=== PATIENT | male | born 1945 | race Two or more races ===

== ENCOUNTER 2018-08-20 20:09 | Inpatient (IN) | payer MEDICARE, OTHER ==
[~2018-08-20] VITALS: Ht 167.6 cm; Wt 81.6 kg
--- NOTE | 2018-08-20 20:20 | NUR ---
ED Nurse Note: MANJINDER WOODS FROM [facility] BILATERAL LEG PAIN and not eating X1 WEEK. AO1. NAD. CONTRACTURES ON BILATERAL LEGS
[2018-08-20] MEDS ORDERED: RISPERDAL1 MG/1 ML PO (20:27)
[2018-08-20] MEDS ORDERED: TRAZODONE HCL50 MG ORAL (20:27)
[2018-08-20] MEDS ORDERED: VITAMIN D250000 UNI1 ORAL (20:27)
[2018-08-20] MEDS ORDERED: THIAMINE H100 MG/1 M IJ (20:27)
[2018-08-20] MEDS ORDERED: VITAMIN D400 INTLU ORAL (20:27)
[2018-08-20 20:59] LABS: BASOPHILS % (AUTO) 1.9 % (0.0-2.0); EOSINOPHILS % (AUTO) 2.2 % (0.0-3.0); HEMATOCRIT 38.5 % (42.0-52.0); HEMOGLOBIN 13.3 G/DL (14.2-18.0); LYMPHOCYTES % (AUTO) 29.9 % (20.0-45.0); MEAN CORPUSCULAR VOLUME 88 FL (80-99); MONOCYTES % (AUTO) 9.5 % (1.0-10.0); NEUTROPHILS % (AUTO) 56.5 % (45.0-75.0); PLATELET COUNT 234 K/UL (150-450); RED BLOOD COUNT 4.35 M/UL (4.70-6.10); RED CELL DISTRIBUTION WIDTH 11.4 % (11.6-14.8); WHITE BLOOD COUNT 7.5 K/UL (4.8-10.8)
--- NOTE | 2018-08-20 21:05 | NUR ---
ED Nurse Note: IV ACCESS ESTABLISHED. BLOOD AND URINE COLLECTED; SENT DOWN TO LAB.
--- NOTE | 2018-08-20 21:15 | NUR ---
ED Nurse Note: MRSA CRE VRE SWAB COLLECTED; SENT DOWN TO LAB.
[2018-08-20 21:17] VITALS: BP 163/83
[2018-08-20 21:22] LABS: ANION GAP 9 mmol/L (5-15); BLOOD UREA NITROGEN 19 mg/dL (7-18); CALCIUM 9.7 MG/DL (8.5-10.1); CARBON DIOXIDE 26 MMOL/L (21-32); CHLORIDE 108 MMOL/L (98-107); CREATININE 0.9 MG/DL (0.55-1.30); SODIUM 143 MMOL/L (136-145)
--- NOTE | 2018-08-20 21:25 | Diagnostic Imaging Report ---
EXAM: XR Chest, 1 View CLINICAL HISTORY: ALOC TECHNIQUE: Frontal view of the chest. COMPARISON: None FINDINGS: Hardware: None. Lungs/pleura: Normal. No focal consolidation. No pleural effusion or pneumothorax. Heart/mediastinum: Normal. No cardiomegaly. Soft tissues: Unremarkable. Bones: No acute fracture. Degenerative changes of the acromioclavicular joints. Upper abdomen: Normal. IMPRESSION: No acute disease identified.
[2018-08-20 21:27] LABS: ALANINE AMINOTRANSFERASE 45 U/L (12-78); ALBUMIN 3.6 G/DL (3.4-5.0); ALBUMIN/GLOBULIN RATIO 0.8 (1.0-2.7); ALKALINE PHOSPHATASE 106 U/L (46-116); ASPARTATE AMINO TRANSFERASE 36 U/L (15-37); BILIRUBIN,TOTAL 0.9 MG/DL (0.2-1.0); CREATINE KINASE 240 U/L (26-308)
[2018-08-20 21:45] LABS: APPEARANCE,URINE CLEAR; BILIRUBIN, URINE NEGATIVE (NEGATIVE); GLUCOSE, URINE (UA) NEGATIVE (NEGATIVE); KETONES,URINE NEGATIVE (NEGATIVE); LEUKOCYTE ESTERASE ,URINE NEGATIVE (NEGATIVE); NITRITE,URINE NEGATIVE (NEGATIVE); PH,URINE 6 (4.5-8.0); PROTEIN,URINE 1+ (NEGATIVE); UROBILINOGEN,URINE 4 MG/DL (0.0-1.0)
[2018-08-20 21:47] LABS: COLOR,URINE YELLOW
--- NOTE | 2018-08-20 22:18 | NUR ---
TRANSFER TO FLOOR: Patient transferred to MED SURG 408- [id number] as ordered, per MD AMBAR. Report given to ANTOINETTE KENT. BELONGINGS LIST COMPLETED WITH RECEIVING RN; PT HAS NO BELONGINGS.
--- NOTE | 2018-08-20 22:30 | NUR ---
Nurse Note: Received pt from ED from ANTOINETTE Gonzales. Bilateral leg pain and not eating, poor po intake X1 WEEK. Alert to name only, lethargic, respirations even and unlabored. AO1. No acute distress. Contractures-bilateral legs, upper extremities. Manriquez catheter inserted in ED- patent, draining. IV site asymptomatic patent, NS locked. Bed lowest position, side rails x2, bed alarm on. Belongings list- pt unable to sign but no belongings with patient. Will continue to monitor.
--- NOTE | 2018-08-20 22:34 | Emergency Room Report ---
History of Present Illness General Chief Complaint: General Complaint Source: Medical Record, EMS Present Illness HPI Patient is sent in because is not eating. Patient is unable to give history at this time but nods his head "yes" to all questions. H/O depression H/O muscle weakness H/O cellulitis H/O hypokalemia H/O dementia Allergies: Coded Allergies: No Known Allergies (Unverified , 08/20/18) Patient History Limited by: medical condition Past Medical History: see triage record, old chart reviewed Social History: Denies: smoking Social History Narrative from SNF Reviewed Nursing Documentation: PMH: Agreed; PSxH: Agreed Nursing Documentation-PMH Hx Neurological Problems: Yes - celluitis R leg, weakness, open wound on R leg Hx Cerebrovascular Accident: Yes - hypokalemia Review of Systems All Other Systems: limited Physical Exam Vital Signs Date Time Temp Pulse Resp B/P (MAP) Pulse Ox O2 Delivery O2 Flow Rate FiO2 08/20/18 20:11 97.9 90 18 163/83 (109) 95 Room Air Sp02 EP Interpretation: reviewed, normal General Appearance: no apparent distress, thin, other - position, Chronically Ill Head: normocephalic, atraumatic Eyes: bilateral eye normal inspection, bilateral eye PERRL, bilateral eye EOMI ENT: dry mucus membranes - poor dentition Respiratory: chest non-tender, lungs clear, normal breath sounds, no rhonchi Cardiovascular #1: regular rate, rhythm, no edema Cardiovascular #2: 2+ radial (R) Gastrointestinal: normal inspection, non tender, soft, no mass Genitourinary: no CVA tenderness Musculoskeletal: other - contractures LE Neurologic: alert, sensory intact, motor weakness Psychiatric: depressed affect Skin: warm/dry Medical Decision Making Diagnostic Impression: Primary Impression: Failure to thrive Qualified Codes: R62.7 - Adult failure to thrive Additional Impression: Dehydration ER Course Patient with decreased oral intake. DDx: dehydration, occult infection, depression, electrolyte abnormality, exacerbation of dementia amongst others. Obvious dehydration. Evaluation with EKG, CXR and labs. Treatment with IV hydration. Consideration of enteral feeding tube or G tube placement. EKG without injury. Chest x-ray unremarkable. Labs with elevated BUN suggesting dehydration. CBC and the rest of CMP unremarkable. Urinalysis no evidence of infection. Complicated patient as she is unable to give history. Because he is unable to tolerate oral intake the patient is admitted to the hospital for consideration of enteral tube or gastrostomy tube. Admitted med, Dr. Hyatt. Laboratory Tests Test 08/20/18 20:45 08/20/18 21:05 White Blood Count 7.5 K/UL (4.8-10.8) Red Blood Count 4.35 M/UL (4.70-6.10) L Hemoglobin 13.3 G/DL (14.2-18.0) L Hematocrit 38.5 % (42.0-52.0) L Mean Corpuscular Volume 88 FL (80-99) Mean Corpuscular Hemoglobin 30.6 PG (27.0-31.0) Mean Corpuscular Hemoglobin Concent 34.6 G/DL (32.0-36.0) Red Cell Distribution Width 11.4 % (11.6-14.8) L Platelet Count 234 K/UL (150-450) Mean Platelet Volume 6.0 FL (6.5-10.1) L Neutrophils (%) (Auto) 56.5 % (45.0-75.0) Lymphocytes (%) (Auto) 29.9 % (20.0-45.0) Monocytes (%) (Auto) 9.5 % (1.0-10.0) Eosinophils (%) (Auto) 2.2 % (0.0-3.0) Basophils (%) (Auto) 1.9 % (0.0-2.0) Prothrombin Time 10.7 SEC (9.30-11.50) Prothrombin Time INR 1.0 (0.9-1.1) PTT 26 SEC (23-33) Sodium Level 143 MMOL/L (136-145) Potassium Level 4.0 MMOL/L (3.5-5.1) Chloride Level 108 MMOL/L (98-107) H Carbon Dioxide Level 26 MMOL/L (21-32) Anion Gap 9 mmol/L (5-15) Blood Urea Nitrogen 19 mg/dL (7-18) H Creatinine 0.9 MG/DL (0.55-1.30) Estimate Glomerular Filtration Rate mL/min (>60) Glucose Level 117 MG/DL (74-106) H Lactic Acid Level 0.80 mmol/L (0.4-2.0) Calcium Level 9.7 MG/DL (8.5-10.1) Magnesium Level 2.2 MG/DL (1.8-2.4) Total Bilirubin 0.9 MG/DL (0.2-1.0) Aspartate Amino Transferase (AST) 36 U/L (15-37) Alanine Aminotransferase (ALT) 45 U/L (12-78) Alkaline Phosphatase 106 U/L (46-116) Total Creatine Kinase 240 U/L (26-308) Troponin I 0.000 ng/mL (0.000-0.056) Pro-B-Type Natriuretic Peptide 67 pg/mL (0-125) Total Protein 7.9 G/DL (6.4-8.2) Albumin 3.6 G/DL (3.4-5.0) Globulin 4.3 g/dL Albumin/Globulin Ratio 0.8 (1.0-2.7) L Lipase 109 U/L (73-393) Urine Color Yellow Urine Appearance Clear Urine pH 6 (4.5-8.0) Urine Specific [place] 1.015 (1.005-1.035) Urine Protein 1+ (NEGATIVE) H Urine Glucose (UA) Negative (NEGATIVE) Urine Ketones Negative (NEGATIVE) Urine Blood 1+ (NEGATIVE) H Urine Nitrite Negative (NEGATIVE) Urine Bilirubin Negative (NEGATIVE) Urine Urobilinogen 4 MG/DL (0.0-1.0) H Urine Leukocyte Esterase Negative (NEGATIVE) Urine RBC 5-10 /HPF (0 - 0) H Urine WBC 0-2 /HPF (0 - 0) Urine Squamous Epithelial Cells None /LPF (NONE/OCC) Urine Bacteria None /HPF (NONE) EKG Diagnostic Results Rate: normal Rhythm: NSR ST Segments: no acute changes Rhythm Strip Diag. Results EP Interpretation: yes Rhythm: NSR, no PVC's, no ectopy Chest X-Ray Diagnostic Results Chest X-Ray Diagnostic Results : Chest X-Ray Ordered: Yes Indication: Other EP Interpretation: Yes Interpretation: no consolidation, no effusion, no pneumothorax Impression: No acute disease Electronically Signed by: Electronically signed by Elijah Zhu MD Last Vital Signs Date Time Temp Pulse Resp B/P (MAP) Pulse Ox O2 Delivery O2 Flow Rate FiO2 08/21/18 00:00 98.8 73 19 153/84 (107) 97 08/20/18 22:20 Room Air Status: improved Disposition: ADMITTED INPATIENT Condition: Serious Scripts Lisinopril* (ZESTRIL*) 10 Mg Tablet 10 MG ORAL DAILY for 30 Days, #30 TAB Prov: Wei Neves MD 08/23/18 Referrals: Darion Hyatt MD (PCP) Elijah Zhu MD Aug 20, 2018 22:34
[2018-08-20] MEDS: TraZODone 100mg tab ORAL SCH (23:41)
[2018-08-21] VITALS: BP 153/84
[2018-08-21 04:00] VITALS: BP 161/98
[2018-08-21 07:17] LABS: BASOPHILS % (AUTO) 1.3 % (0.0-2.0); HEMATOCRIT 35.9 % (42.0-52.0); LYMPHOCYTES % (AUTO) 30.6 % (20.0-45.0); MEAN CORPUSCULAR VOLUME 93 FL (80-99); MONOCYTES % (AUTO) 9.4 % (1.0-10.0); NEUTROPHILS % (AUTO) 56.7 % (45.0-75.0); PLATELET COUNT 216 K/UL (150-450); RED BLOOD COUNT 3.87 M/UL (4.70-6.10); RED CELL DISTRIBUTION WIDTH 12.1 % (11.6-14.8); WHITE BLOOD COUNT 7.1 K/UL (4.8-10.8)
[2018-08-21 07:46] LABS: ALANINE AMINOTRANSFERASE 36 U/L (12-78); ALBUMIN 3.1 G/DL (3.4-5.0); ALBUMIN/GLOBULIN RATIO 0.8 (1.0-2.7); ALKALINE PHOSPHATASE 91 U/L (46-116); ANION GAP 8 mmol/L (5-15); ASPARTATE AMINO TRANSFERASE 27 U/L (15-37); BILIRUBIN,TOTAL 0.9 MG/DL (0.2-1.0); BLOOD UREA NITROGEN 12 mg/dL (7-18); CALCIUM 8.8 MG/DL (8.5-10.1); CARBON DIOXIDE 26 MMOL/L (21-32); CHLORIDE 111 MMOL/L (98-107); CREATININE 0.8 MG/DL (0.55-1.30); PHOSPHORUS 3.2 MG/DL (2.5-4.9); POTASSIUM 3.2 MMOL/L (3.5-5.1); SODIUM 145 MMOL/L (136-145)
[2018-08-21 08:00] VITALS: BP 155/88
--- NOTE | 2018-08-21 08:03 | NUR ---
HAND-OFF: Report given to ANTOINETTE Rosado
--- NOTE | 2018-08-21 08:04 | NUR ---
NURSE NOTES: pt in bed with no sob nor in any form of distress noted. breathing regular and unlabored. denies pain at this time. F/C in placed and patent. Bed in lowest position. call light within reach at all time. will continue to monitor
[2018-08-21] MEDS: Thiamine 100mg tab ORAL SCH (09:04)
[2018-08-21] MEDS: Heparin 5000 units/ml inj SUBQ SCH ×2 (09:09→20:51)
--- NOTE | 2018-08-21 10:50 | NUR ---
P.T NOTE: P.T EVALUATION COMPLETED. PATIENT IS ALERT, HOWEVER ESSENTIALLY NOT ABLE TO FOLLOW SIMPLE COMMANDS. PATIENT PRESENTED IN POSITION SECONDARY TO INCREASED BLE FLEXOR TONICITY. MAX/TOTAL ASSIST FOR BED MOBILITIES. PATIENT IS ALREADY BASELINE DEPENDENT IN ALL AREAS OF ADL/FUNCTIONAL MOBILITIES THEREFORE NOT A CANDIDATE FOR SKILLED P.T SERVICES. RECOMMEND D/C TO [facility] FOR [facility]FORT AND CARE. THANK YOU FOR THIS REFERRAL.
[2018-08-21 12:00] VITALS: BP 160/83
--- NOTE | 2018-08-21 14:12 | History and Physical ---
History of Present Illness General Date patient seen: Aug 21, 2018 Time patient seen: 09:00 Reason for Hospitalization: poor oral intakeweakness Present Illness HPI 72 y/o Male who is are resident at [facility] since March 2018 with dx of dementia, prior cellulitis of the R LE, generalized weakness, hypokalemia, MDD, intermittent agitation. He was noted to have poor oral intake for 2 days and referral for evaluation was needed. In the ED, initial workup is negative for acute infection. IVF started. Admission is needed for follow up evaluation. The patient responds yes to all questions and is not a viable historian. He is FULL code per prior POLST at [facility]. Allergies: Coded Allergies: No Known Allergies (Unverified , 08/20/18) Medication History Scheduled Ergocalciferol (Vitamin D2)* (Vitamin D*), 50,000 UNIT ORAL ONCE A WEEK, ( Reported) Trazodone Hcl* (Desyrel*), 50 MG ORAL BEDTIME, (Reported) Vitamin D (Vitamin D3), 400 UNITS ORAL DAILY, (Reported) Miscellaneous Medications Risperidone (Risperdal), 1 MG PO, (Reported) Thiamine Hcl (Thiamine Hcl), 100 MG IJ, (Reported) Patient History Healthcare decision maker Resuscitation status Full Code Advanced Directive on File Review of Systems Constitutional: Reports: see HPI Eye: Reports: no symptoms ENT: Reports: no symptoms Respiratory: Reports: no symptoms Cardiovascular: Reports: no symptoms Gastrointestinal: Reports: see HPI, other - poor PO intake Genitourinary: Reports: no symptoms Musculoskeletal: Reports: no symptoms Skin: Reports: no symptoms Psychiatric: Reports: see HPI, prior hx Neurological: Reports: no symptoms, see HPI Endocrine: Reports: no symptoms Hematologic/Lymphatic: Reports: no symptoms Physical Exam General Appearance: WD/WN, no apparent distress, other - AO x 1 Lines, tubes and drains: peripheral HEENT: normocephalic, atraumatic Neck: non-tender Respiratory/Chest: chest wall non-tender, lungs clear Cardiovascular/Chest: regular rhythm Abdomen: non tender, soft Extremities: normal range of motion Neurologic: turf manager II-XII grossly normal, oriented x 3, other - AO x 1 Last 24 Hour Vital Signs Date Time Temp Pulse Resp B/P (MAP) Pulse Ox O2 Delivery O2 Flow Rate FiO2 08/21/18 12:00 97.0 64 19 160/83 (108) 99 08/21/18 09:00 Room Air 08/21/18 08:00 98.0 79 19 155/88 (110) 99 08/21/18 04:00 97.9 80 19 161/98 (119) 97 08/21/18 00:00 98.8 73 19 153/84 (107) 97 08/20/18 23:46 Room Air 08/20/18 22:20 98.3 68 22 163/83 97 Room Air 08/20/18 21:24 68 22 Room Air 08/20/18 21:17 98.3 68 22 163/83 97 Room Air 08/20/18 20:11 97.9 90 18 163/83 (109) 95 Room Air Intake and Output 08/20/18 08/21/18 19:00 07:00 # Voids 60 # Bowel Movements 1 Laboratory Tests Test 08/20/18 20:45 08/20/18 21:05 08/21/18 05:35 White Blood Count 7.5 K/UL (4.8-10.8) 7.1 K/UL (4.8-10.8) Red Blood Count 4.35 M/UL (4.70-6.10) L 3.87 M/UL (4.70-6.10) L Hemoglobin 13.3 G/DL (14.2-18.0) L 12.0 G/DL (14.2-18.0) L Hematocrit 38.5 % (42.0-52.0) L 35.9 % (42.0-52.0) L Mean Corpuscular Volume 88 FL (80-99) 93 FL (80-99) Mean Corpuscular Hemoglobin 30.6 PG (27.0-31.0) 31.0 PG (27.0-31.0) Mean Corpuscular Hemoglobin Concent 34.6 G/DL (32.0-36.0) 33.4 G/DL (32.0-36.0) Red Cell Distribution Width 11.4 % (11.6-14.8) L 12.1 % (11.6-14.8) Platelet Count 234 K/UL (150-450) 216 K/UL (150-450) Mean Platelet Volume 6.0 FL (6.5-10.1) L 7.0 FL (6.5-10.1) Neutrophils (%) (Auto) 56.5 % (45.0-75.0) 56.7 % (45.0-75.0) Lymphocytes (%) (Auto) 29.9 % (20.0-45.0) 30.6 % (20.0-45.0) Monocytes (%) (Auto) 9.5 % (1.0-10.0) 9.4 % (1.0-10.0) Eosinophils (%) (Auto) 2.2 % (0.0-3.0) 2.0 % (0.0-3.0) Basophils (%) (Auto) 1.9 % (0.0-2.0) 1.3 % (0.0-2.0) Prothrombin Time 10.7 SEC (9.30-11.50) Prothromb Time International Ratio 1.0 (0.9-1.1) Activated Partial Thromboplast Time 26 SEC (23-33) Sodium Level 143 MMOL/L (136-145) 145 MMOL/L (136-145) Potassium Level 4.0 MMOL/L (3.5-5.1) 3.2 MMOL/L (3.5-5.1) L Chloride Level 108 MMOL/L (98-107) H 111 MMOL/L (98-107) H Carbon Dioxide Level 26 MMOL/L (21-32) 26 MMOL/L (21-32) Anion Gap 9 mmol/L (5-15) 8 mmol/L (5-15) Blood Urea Nitrogen 19 mg/dL (7-18) H 12 mg/dL (7-18) Creatinine 0.9 MG/DL (0.55-1.30) 0.8 MG/DL (0.55-1.30) Estimat Glomerular Filtration Rate mL/min (>60) mL/min (>60) Glucose Level 117 MG/DL (74-106) H 102 MG/DL (74-106) Lactic Acid Level 0.80 mmol/L (0.4-2.0) Calcium Level 9.7 MG/DL (8.5-10.1) 8.8 MG/DL (8.5-10.1) Magnesium Level 2.2 MG/DL (1.8-2.4) Total Bilirubin 0.9 MG/DL (0.2-1.0) 0.9 MG/DL (0.2-1.0) Aspartate Amino Transf (AST/SGOT) 36 U/L (15-37) 27 U/L (15-37) Alanine Aminotransferase (ALT/SGPT) 45 U/L (12-78) 36 U/L (12-78) Alkaline Phosphatase 106 U/L (46-116) 91 U/L (46-116) Total Creatine Kinase 240 U/L (26-308) Troponin I 0.000 ng/mL (0.000-0.056) Pro-B-Type Natriuretic Peptide 67 pg/mL (0-125) Total Protein 7.9 G/DL (6.4-8.2) 6.8 G/DL (6.4-8.2) Albumin 3.6 G/DL (3.4-5.0) 3.1 G/DL (3.4-5.0) L Globulin 4.3 g/dL 3.7 g/dL Albumin/Globulin Ratio 0.8 (1.0-2.7) L 0.8 (1.0-2.7) L Lipase 109 U/L (73-393) Urine Color Yellow Urine Appearance Clear Urine pH 6 (4.5-8.0) Urine Specific [place] 1.015 (1.005-1.035) Urine Protein 1+ (NEGATIVE) H Urine Glucose (UA) Negative (NEGATIVE) Urine Ketones Negative (NEGATIVE) Urine Blood 1+ (NEGATIVE) H Urine Nitrite Negative (NEGATIVE) Urine Bilirubin Negative (NEGATIVE) Urine Urobilinogen 4 MG/DL (0.0-1.0) H Urine Leukocyte Esterase Negative (NEGATIVE) Urine RBC 5-10 /HPF (0 - 0) H Urine WBC 0-2 /HPF (0 - 0) Urine Squamous Epithelial Cells None /LPF (NONE/OCC) Urine Bacteria None /HPF (NONE) Erythrocyte Sedimentation Rate 30 MM/HR (0-20) H Phosphorus Level 3.2 MG/DL (2.5-4.9) Prealbumin Pending Thyroid Stimulating Hormone (TSH) 1.969 uiU/mL (0.358-3.740) Height (Feet): 5 Height (Inches): 6.00 Weight (Pounds): 180 Medications Current Medications Medications (Trade) Dose Ordered Sig/Altagracia Route PRN Reason Start Time Stop Time Status Last Admin Dose Admin Ergocalciferol (Drisdol) 50,000 intlu ONCE A WEEK ORAL 08/23/18 09:00 09/22/18 08:59 Heparin Sodium (Porcine) (Heparin 5000 units/ml) 5,000 units EVERY 12 HOURS SUBQ 08/21/18 09:00 09/20/18 08:59 08/21/18 09:09 Risperidone (RisperDAL) 1 mg BID ORAL 08/21/18 09:00 09/20/18 08:59 08/21/18 09:04 Thiamine HCl (Vitamin B1) 100 mg DAILY ORAL 08/21/18 09:00 09/20/18 08:59 08/21/18 09:04 Trazodone HCl (Desyrel) 100 mg BEDTIME ORAL 08/20/18 23:41 09/19/18 23:40 Vitamin D (Vitamin D) 600 intlu DAILY ORAL 08/21/18 15:00 09/20/18 14:59 Assessment/Plan Status: stable Assessment/Plan: 72 y/o male SNF resident with dementia, prior cellulitis who is being admitted for: # Poor oral intake IVF started ST evaluation RD evaluation, order calorie count and monitor response to therapy. Consider family discussion about possible need for NGT vs PEG Laboratory test show Albumin 3.1 Add pre albumin level # Dementia At baseline Monitor for agitation or delirium # History of cellulitis Stable # Generalized weakness PT evaluation SNF when medically stable ( resident at [facility]) # FULL CODE Fan Barba MD Aug 21, 2018 14:12
--- NOTE | 2018-08-21 15:02 | NUR ---
COMPRESSOR ASSEMBLERLINOLEUM TILE LAYER 72 Y/O MALE [facility]IB[facility] CC:GENERAL COMPLAINT SI:FAILURE TO THRIVE . DEHYDRATION VS: BP 163/83, P 90, T 97.9, RR 22, SpO2 95 RBC 4.35, H&H 13.3/38.5, K 3.2 IS:NS x1L IV NS x2.4L IVLG ADMITTED TO MED/SURG DCP: RETURN TO [facility]
[2018-08-21] MEDS: Vitamin D 400 INTLU TAB ORAL SCH (15:03)
[2018-08-21 16:00] VITALS: BP 158/83
[2018-08-21 16:52] LABS: ALANINE AMINOTRANSFERASE 34 U/L (12-78); ALBUMIN 3.2 G/DL (3.4-5.0); ALBUMIN/GLOBULIN RATIO 0.9 (1.0-2.7); ALKALINE PHOSPHATASE 94 U/L (46-116); ANION GAP 8 mmol/L (5-15); ASPARTATE AMINO TRANSFERASE 21 U/L (15-37); BILIRUBIN,TOTAL 0.9 MG/DL (0.2-1.0); BLOOD UREA NITROGEN 9 mg/dL (7-18); CALCIUM 8.9 MG/DL (8.5-10.1); CARBON DIOXIDE 25 MMOL/L (21-32); CHLORIDE 110 MMOL/L (98-107); CREATININE 0.7 MG/DL (0.55-1.30); POTASSIUM 3.7 MMOL/L (3.5-5.1); SODIUM 143 MMOL/L (136-145)
--- NOTE | 2018-08-21 19:24 | NUR ---
HAND-OFF: Report given to ANTOINETTE Stevenson.
[2018-08-21 20:00] VITALS: BP 142/72
--- NOTE | 2018-08-21 20:14 | NUR ---
NURSE NOTES: patient in bed, asleep, arousable to touch. kept clean and comfortable. Provide safe environment. Bed in low and locked position. Skin is warm and dry to touch. Abdomen is soft and non distended. IV site noted. respiration is even and unlabored. NO s/s of pain or discomfort noted. call light is at bedside. Will continue plan of care.
[2018-08-21] MEDS: TraZODone 100mg tab ORAL SCH (20:48)
[2018-08-22] VITALS: BP 141/76
[2018-08-22 04:00] VITALS: BP 158/80
--- NOTE | 2018-08-22 07:01 | NUR ---
HAND-OFF: Report given to ANTOINETTE Rosado.
[2018-08-22 07:22] LABS: BASOPHILS % (AUTO) 0.9 % (0.0-2.0); EOSINOPHILS % (AUTO) 0.7 % (0.0-3.0); HEMATOCRIT 37.2 % (42.0-52.0); HEMOGLOBIN 12.5 G/DL (14.2-18.0); LYMPHOCYTES % (AUTO) 15.3 % (20.0-45.0); MEAN CORPUSCULAR VOLUME 93 FL (80-99); MONOCYTES % (AUTO) 7.2 % (1.0-10.0); NEUTROPHILS % (AUTO) 75.9 % (45.0-75.0); PLATELET COUNT 222 K/UL (150-450); RED BLOOD COUNT 4.01 M/UL (4.70-6.10); RED CELL DISTRIBUTION WIDTH 11.5 % (11.6-14.8); WHITE BLOOD COUNT 9.4 K/UL (4.8-10.8)
--- NOTE | 2018-08-22 07:31 | NUR ---
NURSE NOTES: Patient alert and oriented x 1, restrains on , skins intact, no SOB, no pain or discomfort noted. will continue to monitor.
[2018-08-22 08:00] VITALS: BP 148/80
[2018-08-22] MEDS: Thiamine 100mg tab ORAL SCH (08:33)
[2018-08-22] MEDS: Vitamin D 400 INTLU TAB ORAL SCH (08:33)
[2018-08-22] MEDS: Heparin 5000 units/ml inj SUBQ SCH ×2 (08:40→22:05)
--- NOTE | 2018-08-22 11:38 | NUR ---
RD ASSESSMENT & RECOMMENDATIONS SEE CARE ACTIVITY FOR COMPLETE ASSESSMENT DAILY ESTIMATED NEEDS: Needs based on Wasting/ 57.5kg 25-30 kcals/kg 2248-2212 total kcals 1-1.5 g protein/kg 58-87 g total protein 25-30 mL/kg 8306-5513 total fluid mLs CURRENT DIET:SOFT, MECH SOFT CHOPPED PO DIET RECOMMENDATIONS: LIBERALIZED REGULAR/ texture per RESEARCH DEVELOPMENT DIRECTOR + Ensure Enlive TID /w meals ADDITIONAL RECOMMENDATIONS: * Calibrated bedscale wt for accurate CBW * F/up w/ calorie count x 72 hrs * Ensure Enlive TID w/ meals (350kcal/20g prot per bottle) * MVI x 1 as supplement * MAXIMUM encouragement at all meals * Consider appetite stimulant
[2018-08-22 11:42] VITALS: BP 160/82
[2018-08-22] MEDS: Lisinopril 10mg tab ORAL SCH ×2 (13:02→13:04)
--- NOTE | 2018-08-22 14:01 | General Progress Note ---
Assessment/Plan Status: stable Assessment/Plan: 72 y/o male SNF resident with dementia, prior cellulitis who is being admitted for: # Poor oral intake IVF started ST evaluation noted and tolerating food but limited amount. RD evaluation, order calorie count and monitor response to therapy. Consider family discussion about possible need for NGT vs PEG Laboratory test show Albumin 3.1 pre albumin level follow up pending. # Dementia At baseline Monitor for agitation or delirium # History of cellulitis Stable # Generalized weakness PT evaluation noted and he is at baseline. ONLY [facility] for ALL ADLS, no Skilled benefit. Subjective ROS Limited/Unobtainable: Yes Allergies: Coded Allergies: No Known Allergies (Unverified , 08/20/18) Subjective non verbal and unable to provide history Objective Last 24 Hour Vital Signs Date Time Temp Pulse Resp B/P (MAP) Pulse Ox O2 Delivery O2 Flow Rate FiO2 08/22/18 13:04 160/82 08/22/18 13:02 160/82 08/22/18 11:42 98.4 93 16 160/82 (108) 98 08/22/18 09:00 Room Air 08/22/18 08:00 98.3 71 18 148/80 (102) 98 08/22/18 04:00 98.7 71 19 158/80 (106) 97 08/22/18 00:00 98.0 73 19 141/76 (97) 96 08/21/18 21:00 Room Air 08/21/18 20:00 99.2 73 19 142/72 (95) 97 08/21/18 16:00 97.0 64 19 158/83 (108) 99 Intake and Output 08/21/18 08/22/18 19:00 07:00 Intake Total 240 ml 240 ml Output Total 1800 ml 650 ml Balance -1560 ml -410 ml Intake Oral 240 ml 240 ml Output Urine Total 1800 ml 650 ml # Voids 1 1 # Bowel Movements 3 1 Laboratory Tests 08/21/18 16:10: Sodium Level 143, Potassium Level 3.7, Chloride Level 110H, Carbon Dioxide Level 25, Anion Gap 8, Blood Urea Nitrogen 9, Creatinine 0.7, Estimat Glomerular Filtration Rate , Glucose Level 94, Calcium Level 8.9, Total Bilirubin 0.9, Aspartate Amino Transf (AST/SGOT) 21, Alanine Aminotransferase ( ALT/SGPT) 34, Alkaline Phosphatase 94, Total Protein 6.7, Albumin 3.2L, Globulin 3.5, Albumin/Globulin Ratio 0.9L 08/22/18 06:20: White Blood Count 9.4, Red Blood Count 4.01L, Hemoglobin 12.5L, Hematocrit 37.2L , Mean Corpuscular Volume 93, Mean Corpuscular Hemoglobin 31.3H, Mean Corpuscular Hemoglobin Concent 33.6, Red Cell Distribution Width 11.5L, Platelet Count 222, Mean Platelet Volume 7.0, Neutrophils (%) (Auto) 75.9H, Lymphocytes (%) (Auto) 15.3L, Monocytes (%) (Auto) 7.2, Eosinophils (%) (Auto) 0.7, Basophils (%) (Auto) 0.9 Height (Feet): 5 Height (Inches): 6.00 Weight (Pounds): 180 General Appearance: WD/WN EENT: PERRL/EOMI Neck: non-tender, normal alignment Cardiovascular: normal peripheral pulses, normal rate Respiratory/Chest: lungs clear, normal breath sounds Abdomen: normal bowel sounds, non tender Neurologic: jackerman II-XII grossly normal, no motor/sensory deficits Fan Barba MD Aug 22, 2018 14:01
[2018-08-22 15:53] VITALS: BP 122/55
--- NOTE | 2018-08-22 19:11 | NUR ---
HAND-OFF: Report given to ANTOINETTE Stevenson.
[2018-08-22 20:00] VITALS: BP 136/74
--- NOTE | 2018-08-22 20:01 | NUR ---
NURSE NOTES: Patient in bed, asleep, arousable to touch. Restraints noted. Pulse noted. Skin is intact. NO s/s of pain or discomfort noted. Abdomen is soft. Lower extremity contractures. Bed in low and locked position. Provide safe environment. Kept clean and comfortable. Call light is within reach. Will continue plan of care.
[2018-08-22] MEDS: TraZODone 100mg tab ORAL SCH (22:05)
[2018-08-23] VITALS: BP 127/71
[2018-08-23 04:00] VITALS: BP 149/77
[2018-08-23 06:46] LABS: BASOPHILS % (AUTO) 0.6 % (0.0-2.0); EOSINOPHILS % (AUTO) 0.2 % (0.0-3.0); HEMATOCRIT 36.5 % (42.0-52.0); HEMOGLOBIN 12.7 G/DL (14.2-18.0); LYMPHOCYTES % (AUTO) 14.7 % (20.0-45.0); MEAN CORPUSCULAR VOLUME 92 FL (80-99); MONOCYTES % (AUTO) 7.4 % (1.0-10.0); PLATELET COUNT 221 K/UL (150-450); RED BLOOD COUNT 3.99 M/UL (4.70-6.10); RED CELL DISTRIBUTION WIDTH 11.6 % (11.6-14.8); WHITE BLOOD COUNT 11.2 K/UL (4.8-10.8)
--- NOTE | 2018-08-23 07:02 | NUR ---
HAND-OFF: Report given to ANTOINETTE Rosado.
[2018-08-23 07:13] LABS: ANION GAP 10 mmol/L (5-15); BLOOD UREA NITROGEN 9 mg/dL (7-18); CALCIUM 9.5 MG/DL (8.5-10.1); CARBON DIOXIDE 25 MMOL/L (21-32); CHLORIDE 106 MMOL/L (98-107); CREATININE 0.8 MG/DL (0.55-1.30); POTASSIUM 3.4 MMOL/L (3.5-5.1); SODIUM 141 MMOL/L (136-145)
--- NOTE | 2018-08-23 07:31 | NUR ---
NURSE NOTES: Patient resting in bed, A/O x 1, confused. Room air, no respiratory distress noted. no SOB. no cough. Restrains on faby wrists, skin intact, no redness. bed alarm on. will continue to monitor.
[2018-08-23 08:00] VITALS: BP 169/94
[2018-08-23] MEDS: Vitamin D 400 INTLU TAB ORAL SCH (08:16)
[2018-08-23] MEDS: Thiamine 100mg tab ORAL SCH (08:16)
[2018-08-23] MEDS: Heparin 5000 units/ml inj SUBQ SCH (08:18)
[2018-08-23] MEDS ORDERED: Vitamin D 50,000 units cap ORAL SCH (09:00)
--- NOTE | 2018-08-23 09:52 | NUR ---
SWALLOW/SPEECH THERAPY NOTE: REFERRED FOR SWALLOW EVAL BY DR. MERAZ, SEE FULL REPORT IN ST CARE ACTIVITY SECTION. DYSPHAGIA RISK FACTORS FOR THIS 72 Y.O.M. (SCOTTISH? MOLDOVAN): ACUTE ISSUES: FTT, POOR PO INTAKE FOR ONE WEEK PRIOR TO ADMIT, WT LOSS, GEN WEAKNESS, REDUCED APPETITE, PERIODS OF AGITATION, DEHYDRATION, LUNGS CLEAR. R LE CELLULITIS. H/O CVA, ADVANCED DEMENTIA (UNSPECIFIED), MDD, ON ZYPREXA, RISPERDAL, TRAZADONE MONITOR FOR PARKINSON'S AND TARDIVE KINESIA SXS, GI PROBLEMS (NOT ON GERD MEDS). PROBLEMS CHEWING PER SNF. POLST STATES OK FOR TRIAL ARTIFICIAL NUTRITION IF NEEDS. AT SNF ON A REGULAR TEXTURE DIET AND THIN LIQUIDS BUT POOR PO FOR ONE WEEK. PER RD, LIBERALIZE DIET AND SEND ENSURE ENLIVE TID AND ON CALORIE COUNT (POOR INTAKE REFUSES (X6) AND SOME 25/75% PER ANOTHER RN ATE 100% WHEN FED 30 MINUTES. PER MD (ANN) CONSIDER NGT VERSUS PEG IF INDICATED. ANN). ROOM AIR, ALERT WITH STIMULATION (IF NOT STIMULATED WILL FALL ASLEEP). SOMETIMES WILL TAKE PO WITH EYES CLOSED. DOES NOT FOLLOW ORAL COMMANDS. NONVERBAL. POOR AND MANY MISSING DENTITION (4 UPPER INCISORS/CANINES AND MANY LOWERS 5-7 DIFFUCULT TO SEE AND ONE LEFT LOWER MOLAR). INITIAL IMPRESSIONS: S/S OF AT LEAST A MILD-MODERATE ORAL PREP AND OROPHARYNGEAL DYSPHAGIA WITH INCREASED OROPHARYNGEAL TRANSIT TIMES. POOR ABILITY TO ACHIEVE LIP CLOSURE WITH CUP BUT FUNCTIONAL WITH TSP. TONGUE IS DISCOLORED SLIGHTLY BLUISH AND DID FOLLOW COMMANDS FOR STRENGTH AND ROM. GIVEN TSP THIN LIQUIDS, 5 SECONDS TRANSIT TIMES WITH FAIR HYOLARYNGEAL EXCURSION, NO ORAL RESIDUE BUT HAD A WEAK COUGH AFTER THE SWALLOW (X2 TRIALS). GIVEN TSP NECTAR THICK LIQUIDS AND TSP PUREED 3 SECONDS TRANSIT TIMES WITH FAIR HYOLARYNGEAL EXCURSION, NO OVERT S/S OF ASPIRATION. NO ORAL RESIDUE. HOLD ON MASTICATED SOLIDS GIVEN LIMITED DENTITION. RECOMMENDATIONS: CONSIDER MOD BARIUM SWALLOW STUDY IP OR OP IF DC TO FURTHER ASSESS SWALLOW, DETERMINE SILENT ASPIRATION RISK/ETIOLOGY, AND ATTEMPT TRIAL TX. GIVEN VERY SLOW INTAKE AND VARIABLE INTAKE AND FOR QUALITY OF LIFE PURPOSES, CONSIDER DOWNGRADING TO LIQUIFIED PUREED LIKE NECTAR THICK SOUP CONSISTENCY WITH POSTED ASPIRATION PRECAUTIONS AND 1 TO 1 FEEDING. SEND ENSURE ENLIVE TID AND CONTINUE CALORIE COUNT PER RD RECOMMENDATIONS. SKILLED DYSPHAGIA MANAGEMENT AND TX, COG-COM EVAL/TX FOR COM TIPS ONLY. D/W WITH SCOOTER AND ALFREDO RNS, DR. NIX WHO AGREE WITH ABOVE. LEFT MESSAGE WITH FAMILY REGARDING PREFERENCES SINCE [facility] DID STATE TRIAL TF IF NEEDS AND PATIENT HAS PERIODS OF POOR INTAKE. Addendum: 08/23/18 at 1143 by ANDRÉS VELÁZQUEZ LEAD SUPPLY WORKER SPOKE WITH HIS STEP DAUGHTER RAMSES (ALSO WORKS A CG AND TAKES CARE OF HER MOTHER W/O OTHER HELP) WHO SAID HE MAY BE LETHARGIC BECAUSE HE IS SUNDOWNING. SHE WANTS TO HOLD OFF ON NONORAL FEEDINGS AND WILL F/UP WITH SNF STAFF ABOUT INCREASING INTAKE. SHE SAID HE IS SCOTTISH-SPEAKING FROM AND KNOWS SOME [place]OLD[place].
[2018-08-23 11:58] VITALS: BP 135/86
[2018-08-23] MEDS ORDERED: ZESTRIL10 M1 ORAL (12:40)
--- NOTE | 2018-08-23 12:48 | Discharge Summary ---
Discharge Summary Hospital Course Date of Admission Aug 20, 2018 at 21:47 Date of Discharge 08/23/18 Admitting Diagnosis Failure to trive HPI Cliff Santizo is a 72 year old male who was admitted on Aug 20, 2018 at 21:47 for Failure To Thrive Consultations None Procedures None Hospital Course Patient was admitted to the medical service from SNF with poor oral intake, mild dehdyaratio, FTT. Patient had been refusing to eat at the facility. While admitted he was treated with IV fluids, seen by LANDSCAPE MANAGER. It was recommended that he be on liquified puree diet with nectar thick liquids. Patient was able to ben when feed by nursing staff here. He will need to be fed by staff at facility for all meals, aspiration precautions recommended. Also started on lisinopril for elevated blood pressure Discharge Instruction: Repeat BMP this Thursday Time spent preparing discharge was 35 minutes Discharge Medications New Medications: Lisinopril* (Zestril*) 10 Mg Tablet 10 MG ORAL DAILY for 30 Days, #30 TAB Continued Medications: Ergocalciferol (Vitamin D2)* (Vitamin D*) 50,000 Unit Capsule [id number] UNIT ORAL ONCE A WEEK, CAP Risperidone (Risperdal) 1 Mg/1 Ml Solution 1 MG PO Thiamine Hcl (Thiamine Hcl) 100 Mg/1 Ml Vial 100 MG IJ, VIAL Trazodone Hcl* (Desyrel*) 50 Mg Tablet 50 MG ORAL BEDTIME, TAB Vitamin D (Vitamin D3) 400 Unit Tablet 400 UNITS ORAL DAILY, TAB Discharge Condition Upon Discharge: stable Discharge Disposition Patient was discharged to SNF Discharge Diagnoses: (1) Dehydration (2) Failure to thrive Wei Neves MD Aug 23, 2018 12:48
--- NOTE | 2018-08-23 13:14 | NUR ---
*-* DISCHARGE PLANNING *-* PATIENT HAS BEEN REFERRED TO: [facility] P:[phone] F:[phone]
--- NOTE | 2018-08-23 14:53 | NUR ---
DISCHARGE PLANNED [facility] ROOM 8B SKILLED T [phone] FOR NURSE TO NURSE REPORT [facility] WILL HEEL SEAT FITTER AT 1500
--- NOTE | 2018-08-23 15:15 | NUR ---
NURSE NOTES: patient discharged to [facility], with stable condition by ambulance. all discharged report given to Vi RN, verbalize understanding, pt has no belongings, IV removed, and denies pain, VS stable, family Zonia (daughter) notified regarding discharge, verbalized understanding.
--- NOTE | 2018-08-24 15:09 | Cardiology Report ---
APPROVED REPORT EKG Measurement Heart [id number] Normal sinus rhythm Normal ECG
== END 2018-08-23 16:00 | DRG 641 ==
LOC: EDBD 20:09 → EMR 20:40 → 4E 21:47 → EDBEDREQ 21:58
DX: E86.0 Dehydration (principal); R62.7 Adult failure to thrive; F03.90 Unspecified dementia, unspecified severity, without behavioral disturbance, psychotic disturbance, mood disturbance, and anxiety; R53.1 Weakness; Z86.73 Personal history of transient ischemic attack (TIA), and cerebral infarction without residual deficits
CPT/HCPCS: 36415; 71045; 80048; 80053; 81003; 82550; 82962; 83605; 83690; 83735; 83880; 84100; 84134; 84443; 84484; 85025; 85610; 85651; 85730; 87040; 87081; 93005; 96360; 96361; 99285; J8499

== ENCOUNTER 2018-09-09 16:23 | Inpatient (IN) | payer MEDICARE, OTHER ==
[2018-09-09] VITALS (16 sets, daily range): BP systolic 85–123; BP diastolic 48–93
[~2018-09-09] VITALS: Ht 162.6 cm; Wt 61.4 kg
[~2018-09-09 16:23] MED LIST: RISPERDAL1 MG/1 ML PO; THIAMINE H100 MG/1 M IJ; TRAZODONE HCL50 MG ORAL; VITAMIN D250000 UNI1 ORAL; VITAMIN D400 INTLU ORAL; ZESTRIL10 M1 ORAL
--- NOTE | 2018-09-09 16:42 | Emergency Room Report ---
History of Present Illness General Chief Complaint: Dyspnea/Respdistress Source: Medical Record, EMS Present Illness HPI Patient presents from nursing facility Patient was brought in by paramedics with reports of shortness of breath upon arrival the patient is on nonrebreather mask appears uncomfortable Patient himself is nonverbal and not able to provide any input this does limit the history of present illness significantly Review of medical records reveals recent hospitalization for failure to thrive Otherwise unknown regarding fever unknown regarding rash I spoke to the nurse at the nursing facility who also reports the patient has significantly abnormal blood work including elevated BUN and creatinine Allergies: Coded Allergies: No Known Allergies (Unverified , 08/20/18) Patient History Limited by: medical condition Past Medical History: see triage record Pertinent Family History: none Reviewed Nursing Documentation: PMH: Agreed; PSxH: Agreed Nursing Documentation-PMH Past Medical History: No History, Except For Hx Cardiac Problems: No Hx Cancer: No Hx Gastrointestinal Problems: Yes - poor dentition Hx Neurological Problems: Yes - Hx Cerebrovascular Accident: Yes - hypokalemia Hx Dementia: Yes Hx Weakness: Yes Review of Systems All Other Systems: limited - Other than the ones mentioned in the history of present illness all others are reviewed however they do stay limited due to the patient's mental status Physical Exam Vital Signs Date Time Temp Pulse Resp B/P (MAP) Pulse Ox O2 Delivery O2 Flow Rate FiO2 09/09/18 16:28 97.2 93 40 89/74 (79) 92 Non-Rebreather 15.0 Sp02 EP Interpretation: reviewed, abnormal - 92% on nonrebreather is low, on repeat evaluation patient saturating at 98% on 3 L which is more normal interpretation General Appearance: moderate distress - There is tachypneic and short of breath Head: normocephalic, atraumatic Eyes: bilateral eye PERRL, bilateral eye EOMI ENT: normal pharynx, no angioedema, dry mucus membranes, other - Poor dentition Neck: supple Respiratory: crackles - Bilaterally, tachypneic, no obvious retractions Cardiovascular #1: regular rate, rhythm Gastrointestinal: non tender, soft Musculoskeletal: other - Patient is contracted does not follow commands Neurologic: responsive - To physical stimuli Skin: normal color, no rash, other - Poor turgor Lymphatic: no adenopathy Procedures Critical Care Time Critical Care Time 70 minutes for multiple re-evaluations initial critical presentation concern for respiratory failure and possible not including any procedural time Central Line Central Line : Consent: Emergent Central Line Lumen: triple Maximal Sterile Barrier Tech: yes cap, yes mask, yes sterile gown, yes sterile gloves, yes large sterile sheet, yes hand hygiene, yes chlorhexidine prep Central Line Postion: femoral (R) Anesthesia: Lidocaine cc's of anesthesia: 3 Complications: none Central Line Post Position: sutured Attempts: One Patient Tolerated: Well Complications: None Medical Decision Making Diagnostic Impression: Primary Impression: Septic shock Additional Impression: Pneumonia ER Course Patient is a fairly complex patient with multiple differential to consideration including but not limited to cardiac cardiopulmonary ,infectious, and vascular emergencies Patient's x-ray shows significant findings in the left side of the lung with significant infiltrate patient blood pressure also remains labile and Low during his stay after IV hydration patient Patient requires pressors Kidney function is significantly abnormal compared to recent discharge from the hospital patient has Manriquez catheter placed broad spectrum antibiotics initiated ABGs will be followed closely At this time patient maintains appropriate gag reflex and respirations And will be admitted to ICU for further care critical condition Labs Test 09/09/18 16:30 09/09/18 16:40 09/09/18 17:10 09/09/18 17:23 White Blood Count 13.0 K/UL (4.8-10.8) Red Blood Count 4.68 M/UL (4.70-6.10) Hemoglobin 15.0 G/DL (14.2-18.0) Hematocrit 44.8 % (42.0-52.0) Mean Corpuscular Volume 96 FL (80-99) Mean Corpuscular Hemoglobin 32.0 PG (27.0-31.0) Mean Corpuscular Hemoglobin Concent 33.5 G/DL (32.0-36.0) Red Cell Distribution Width 12.2 % (11.6-14.8) Platelet Count 269 K/UL (150-450) Mean Platelet Volume 8.5 FL (6.5-10.1) Neutrophils (%) (Auto) % (45.0-75.0) Lymphocytes (%) (Auto) % (20.0-45.0) Monocytes (%) (Auto) % (1.0-10.0) Eosinophils (%) (Auto) % (0.0-3.0) Basophils (%) (Auto) % (0.0-2.0) Differential Total Cells Counted 100 Neutrophils % (Manual) 78 % (45-75) Lymphocytes % (Manual) 9 % (20-45) Monocytes % (Manual) 2 % (1-10) Eosinophils % (Manual) 0 % (0-3) Basophils % (Manual) 0 % (0-2) Band Neutrophils 11 % (0-8) Platelet Estimate Adequate Platelet Morphology Normal Red Blood Cell Morphology Normal Prothrombin Time 11.9 SEC (9.30-11.50) Prothromb Time International Ratio 1.1 (0.9-1.1) Activated Partial Thromboplast Time 23 SEC (23-33) Sodium Level 162 MMOL/L (136-145) Potassium Level 5.1 MMOL/L (3.5-5.1) Chloride Level 120 MMOL/L (98-107) Carbon Dioxide Level 23 MMOL/L (21-32) Anion Gap 19 mmol/L (5-15) Blood Urea Nitrogen 152 mg/dL (7-18) Creatinine 8.3 MG/DL (0.55-1.30) Estimat Glomerular Filtration Rate mL/min (>60) Glucose Level 197 MG/DL (74-106) Lactic Acid Level 3.30 mmol/L (0.4-2.0) 2.80 mmol/L (0.66-2.22) Calcium Level 9.9 MG/DL (8.5-10.1) Total Bilirubin 2.2 MG/DL (0.2-1.0) Direct Bilirubin 1.2 MG/DL (0.0-0.3) Aspartate Amino Transf (AST/SGOT) 123 U/L (15-37) Alanine Aminotransferase (ALT/SGPT) 144 U/L (12-78) Alkaline Phosphatase 170 U/L (46-116) Total Creatine Kinase 3237 U/L (26-308) Creatine Kinase MB 28.8 NG/ML (0.0-3.6) Creatine Kinase MB Relative Index 0.8 Troponin I 0.050 ng/mL (0.000-0.056) Pro-B-Type Natriuretic Peptide 139 pg/mL (0-125) Total Protein 8.6 G/DL (6.4-8.2) Albumin 2.9 G/DL (3.4-5.0) Globulin 5.7 g/dL Albumin/Globulin Ratio 0.5 (1.0-2.7) Lipase 640 U/L (73-393) Arterial Blood pH 7.430 (7.350-7.450) Arterial Blood Partial Pressure CO2 26.7 mmHg (35.0-45.0) Arterial Blood Partial Pressure O2 70.4 mmHg (75.0-100.0) Arterial Blood HCO3 17.4 mmol/L (22.0-26.0) Arterial Blood Oxygen Saturation 92.7 % (95-100) Arterial Blood Base Excess -5.4 (-2-2) Foreign Test Positive Urine Color Brown Urine Appearance Cloudy Urine pH 5 (4.5-8.0) Urine Specific [place] 1.020 (1.005-1.035) Urine Protein 3+ (NEGATIVE) Urine Glucose (UA) Negative (NEGATIVE) Urine Ketones 1+ (NEGATIVE) Urine Blood 4+ (NEGATIVE) Urine Nitrite Positive (NEGATIVE) Urine Bilirubin 2+ (NEGATIVE) Urine Ictotest Negative (NEGATIVE) Urine Urobilinogen 4 MG/DL (0.0-1.0) Urine Leukocyte Esterase 3+ (NEGATIVE) Urine RBC 5-10 /HPF (0 - 0) Urine WBC 20-30 /HPF (0 - 0) Urine Squamous Epithelial Cells Occasional /LPF Urine Bacteria Many /HPF (NONE) Urine Fine Granular Casts 2-4 /LPF (NONE) Urine Coarse Granular Casts 0-2 /LPF (NONE) EKG Diagnostic Results Rate: normal Rhythm: NSR ST Segments: other - Nonspecific ST T wave changes Rhythm Strip Diag. Results EP Interpretation: yes Rate: 88 Rhythm: NSR, no PVC's, no ectopy Chest X-Ray Diagnostic Results Chest X-Ray Diagnostic Results : Chest X-Ray Ordered: Yes # of Views/Limited/Complete: 1 View Indication: Shortness of Breath EP Interpretation: Yes Interpretation: no pneumothorax, other - Left-sided infiltrates, heart size normal, no acute bony ab normality Impression: Other - Acute infiltrate left side Electronically Signed by: Sarah Carvajal DO Last Vital Signs Date Time Temp Pulse Resp B/P (MAP) Pulse Ox O2 Delivery O2 Flow Rate FiO2 09/09/18 16:28 97.2 93 40 89/74 (79) 92 Non-Rebreather 15.0 Status: improved Disposition: ADMITTED INPATIENT Condition: Critical Sarah Carvajal DO Sep 09, 2018 16:42
[2018-09-09 16:53] LABS: HEMATOCRIT 44.8 % (42.0-52.0); MEAN CORPUSCULAR VOLUME 96 FL (80-99); PLATELET COUNT 269 K/UL (150-450); RED BLOOD COUNT 4.68 M/UL (4.70-6.10); RED CELL DISTRIBUTION WIDTH 12.2 % (11.6-14.8)
[2018-09-09 17:03] LABS: INR 1.1 (0.9-1.1)
[2018-09-09] MEDS ORDERED: CELEBREX100 MG ORAL (17:05)
[2018-09-09] MEDS ORDERED: PEPCID AC20 M2 PO (17:05)
[2018-09-09] MEDS ORDERED: ACETAMINOPHEN325 M1 RC (17:05)
[2018-09-09] MEDS ORDERED: TRAMADOL HCL50 MG ORAL (17:05)
[2018-09-09 17:20] LABS: ALANINE AMINOTRANSFERASE 144 U/L (12-78); ALBUMIN 2.9 G/DL (3.4-5.0); ALBUMIN/GLOBULIN RATIO 0.5 (1.0-2.7); ALKALINE PHOSPHATASE 170 U/L (46-116); ANION GAP 19 mmol/L (5-15); ASPARTATE AMINO TRANSFERASE 123 U/L (15-37); BILIRUBIN,TOTAL 2.2 MG/DL (0.2-1.0); BLOOD UREA NITROGEN 152 mg/dL (7-18); CALCIUM 9.9 MG/DL (8.5-10.1); CARBON DIOXIDE 23 MMOL/L (21-32); CHLORIDE 120 MMOL/L (98-107); CKMB 28.8 NG/ML (0.0-3.6); CREATINE KINASE 3237 U/L (26-308); CREATININE 8.3 MG/DL (0.55-1.30); POTASSIUM 5.1 MMOL/L (3.5-5.1)
[2018-09-09 17:22] LABS: APPEARANCE,URINE CLOUDY; BILIRUBIN, URINE 2+ (NEGATIVE); COLOR,URINE BROWN; GLUCOSE, URINE (UA) NEGATIVE (NEGATIVE); KETONES,URINE 1+ (NEGATIVE); LEUKOCYTE ESTERASE ,URINE 3+ (NEGATIVE); NITRITE,URINE POSITIVE (NEGATIVE); PH,URINE 5 (4.5-8.0); PROTEIN,URINE 3+ (NEGATIVE); UROBILINOGEN,URINE 4 MG/DL (0.0-1.0)
[2018-09-09 17:24] LABS: SODIUM 162 MMOL/L (136-145)
[2018-09-09 17:25] LABS: BILIRUBIN,DIRECT 1.2 MG/DL (0.0-0.3)
--- NOTE | 2018-09-09 17:28 | NUR ---
ED Nurse Note: pura from [facility] for low bp and sob blood and urine sent swabs done . ivf infused and reflex lactic sent to lab
[2018-09-09] MEDS ORDERED: Piperacillin/Tazobactam 3.375 GM in NS 110 ML IVPB ONE (17:30)
[2018-09-09] MEDS ORDERED: Vancomycin 1 GM in NS 275 ML IVPB ONE (17:30)
[2018-09-09] MEDS ORDERED: DOPamine 400mg/250ml 250 ML IV SCH (18:00)
--- NOTE | 2018-09-09 18:24 | NUR ---
ED Nurse Note: pt has redness on rt hip picture taken unable to upload to [employer] . Technical issues.
--- NOTE | 2018-09-09 19:10 | NUR ---
ED Nurse Note: pt bp imroved post starting dopamine see vss charting.
--- NOTE | 2018-09-09 19:11 | NUR ---
HAND-OFF: Report given to Mary CURRY.
--- NOTE | 2018-09-09 19:41 | NUR ---
ED Nurse Note: Patient was admited to ICU due to low BP and SOB. AAO x0, VSS at this time, Dopamin still running at 2 mcg, and pt's BP is 126/66. Patient's O2 sat 95 % on 4 L of oxygen NC. Patient was transfered to ICU via gurney by ACLS protocol, with all belongings.
--- NOTE | 2018-09-09 20:00 | NUR ---
NURSE NOTES: Received report and pt from ANTOINETTE Hernandez. Pt's transferred to ICU from ER for hypotension, currently on Dopamine at 2mcg/min via newly inserted Right femoral TLC. Current BP 91/51, Hr 76, R 23, O sat 97% with 4L/NC. Pt's non verbal, open eyes spontaneously. SR on environmental monitoring specialist. Bilateral lungs sound diminished. No skin breakdown. Also noted Manriquez 16F draining dark malachi urine. Pt also has Right wrist 20G and Left FA 22G peripheral lines for TKO. HOB kept elevated, bed in low and locked position. Call light within reach. Will continue to monitor.
--- NOTE | 2018-09-09 20:10 | NUR ---
NURSE NOTES: Dr Kimberlyn Connolly, covering for DR Hyatt was contacted, admitting orders given. All noted and carried out. Will continue to monitor.
--- NOTE | 2018-09-09 20:43 | Consultation ---
Consult Note Consult Note asked to evaluate for renal failure- Patient presents from nursing facility Patient was brought in by paramedics with reports of shortness of breath upon arrival the patient is on nonrebreather mask appears uncomfortable Patient himself is nonverbal and not able to provide any input this does limit the history of present illness significantly Review of medical records reveals recent hospitalization for failure to thrive Otherwise unknown regarding fever unknown regarding rash I spoke to the nurse at the nursing facility who also reports the patient has significantly abnormal blood work including elevated BUN and creatinine No Known Allergies (Unverified , 08/20/18) Past Medical History: No History, Except For Hx Gastrointestinal Problems: Yes - poor dentition Hx Neurological Problems: Yes - Hx Cerebrovascular Accident: Yes - hypokalemia Hx Dementia: Yes Hx Weakness: Yes seen in ICU Has duggan non verbal BP low on Pressors examined discussed with field care manager/Plan Acute Renal Failure: ? Drug induced Was on Lisinopril and Celebrex Dehydration Shock Sepsis / Pneumonia / UTI Malnutrition Hydrate pressors antibiotics monitor renal parameters per orders Minh Phipps MD Sep 09, 2018 20:43
[2018-09-09] MEDS ORDERED: Heparin 5000 units/ml inj SUBQ SCH (21:00)
[2018-09-09] MEDS: Heparin 5000 units/ml inj SUBQ SCH (21:44)
[2018-09-09] MEDS: D5 1/2NS 1,000 ML IV SCH (21:45)
[2018-09-09] MEDS ORDERED: Piperacillin/Tazobactam 3.375 GM in NS 110 ML IVPB SCH (22:00)
--- NOTE | 2018-09-09 22:00 | NUR ---
NURSE NOTES: Dr Gupta, Dr Phipps and DR Brush also saw the pt. Orders noted and carried out. Pt's resting in bed, in no acute distress. VS stable. Dopamine has been stopped. Running D5 1/2NS at 150ml/hr. Will continue to monitor.
--- NOTE | 2018-09-09 22:15 | History and Physical ---
History of Present Illness General Date patient seen: Sep 09, 2018 Time patient seen: 18:00 Reason for Hospitalization: Dyspnea/Respdistress Present Illness HPI 72 [facility] for evaluation of sob and respiratory insufficiency requiring support. Pt recently admitted to [facility] for failure to thrive, per ED physician, SNF staff noted pt to be more lethargic and unresponsive than baseline therefore transferred to [facility]. Pt is nonverbal on examination. In the ED noted to be tachycardia, leukocytosis , lactic acidosis, abnormal abg, renal insufficiency, hypotensive, abx and fluid resusitation started in ED Allergies: Coded Allergies: No Known Allergies (Unverified , 08/20/18) Medication History Scheduled Celecoxib* (Celebrex*), 100 MG ORAL DAILY, (Reported) Ergocalciferol (Vitamin D2)* (Vitamin D*), 50,000 UNIT ORAL ONCE A WEEK, ( Reported) Famotidine (Pepcid Ac), 20 MG PO BID, (Reported) Lisinopril* (Zestril*), 10 MG ORAL DAILY Trazodone Hcl* (Desyrel*), 50 MG ORAL BEDTIME, (Reported) Vitamin D (Vitamin D3), 400 UNITS ORAL DAILY, (Reported) Scheduled PRN Acetaminophen* (Acetaminophen 325MG Tablet*), 650 MG RC Q6H PRN for Mild Pain/ Temp > 100.5, (Reported) Tramadol Hcl* (Ultram*), 50 MG ORAL DAILY PRN for For Pain, (Reported) Miscellaneous Medications Risperidone (Risperdal), 1 MG PO, (Reported) Thiamine Hcl (Thiamine Hcl), 100 MG IJ, (Reported) Patient History Limited by: medical condition Healthcare decision maker N Resuscitation status Full Code Advanced Directive on File No Review of Systems ROS Narrative Unable to obtain 2/2 mental status Physical Exam General Appearance: WD/WN, lethargic, confused Lines, tubes and drains: peripheral, central line HEENT: normocephalic, atraumatic Neck: non-tender Respiratory/Chest: chest wall non-tender, no accessory muscle use Cardiovascular/Chest: normal peripheral pulses Abdomen: normal bowel sounds, non tender Neurologic: disoriented Last 24 Hour Vital Signs Date Time Temp Pulse Resp B/P (MAP) Pulse Ox O2 Delivery O2 Flow Rate FiO2 6/27/19 20:07 87 09/09/18 19:50 97.8 87 22 111/93 (99) 92 09/09/18 19:09 99.0 93 26 123/68 95 Nasal Cannula 3.0 09/09/18 19:07 99.0 83 26 85/63 94 Nasal Cannula 3.0 09/09/18 18:40 85/60 09/09/18 17:48 93 40 Nasal Cannula 3.0 09/09/18 16:28 97.2 93 40 89/74 (79) 92 Non-Rebreather 15.0 Laboratory Tests Test 09/09/18 16:30 09/09/18 16:40 09/09/18 17:10 09/09/18 17:23 White Blood Count 13.0 K/UL (4.8-10.8) H Red Blood Count 4.68 M/UL (4.70-6.10) L Hemoglobin 15.0 G/DL (14.2-18.0) Hematocrit 44.8 % (42.0-52.0) Mean Corpuscular Volume 96 FL (80-99) Mean Corpuscular Hemoglobin 32.0 PG (27.0-31.0) H Mean Corpuscular Hemoglobin Concent 33.5 G/DL (32.0-36.0) Red Cell Distribution Width 12.2 % (11.6-14.8) Platelet Count 269 K/UL (150-450) Mean Platelet Volume 8.5 FL (6.5-10.1) Neutrophils (%) (Auto) % (45.0-75.0) Lymphocytes (%) (Auto) % (20.0-45.0) Monocytes (%) (Auto) % (1.0-10.0) Eosinophils (%) (Auto) % (0.0-3.0) Basophils (%) (Auto) % (0.0-2.0) Differential Total Cells Counted 100 Neutrophils % (Manual) 78 % (45-75) H Lymphocytes % (Manual) 9 % (20-45) L Monocytes % (Manual) 2 % (1-10) Eosinophils % (Manual) 0 % (0-3) Basophils % (Manual) 0 % (0-2) Band Neutrophils 11 % (0-8) H Platelet Estimate Adequate Platelet Morphology Normal Red Blood Cell Morphology Normal Prothrombin Time 11.9 SEC (9.30-11.50) H Prothromb Time International Ratio 1.1 (0.9-1.1) Activated Partial Thromboplast Time 23 SEC (23-33) Sodium Level 162 MMOL/L (136-145) *H Potassium Level 5.1 MMOL/L (3.5-5.1) Chloride Level 120 MMOL/L (98-107) H Carbon Dioxide Level 23 MMOL/L (21-32) Anion Gap 19 mmol/L (5-15) H Blood Urea Nitrogen 152 mg/dL (7-18) H Creatinine 8.3 MG/DL (0.55-1.30) H Estimat Glomerular Filtration Rate mL/min (>60) Glucose Level 197 MG/DL (74-106) H Lactic Acid Level 3.30 mmol/L (0.4-2.0) H 2.80 mmol/L (0.66-2.22) H Calcium Level 9.9 MG/DL (8.5-10.1) Total Bilirubin 2.2 MG/DL (0.2-1.0) H Direct Bilirubin 1.2 MG/DL (0.0-0.3) H Aspartate Amino Transf (AST/SGOT) 123 U/L (15-37) H Alanine Aminotransferase (ALT/SGPT) 144 U/L (12-78) H Alkaline Phosphatase 170 U/L (46-116) H Total Creatine Kinase 3237 U/L (26-308) H Creatine Kinase MB 28.8 NG/ML (0.0-3.6) H Creatine Kinase MB Relative Index 0.8 Troponin I 0.050 ng/mL (0.000-0.056) Pro-B-Type Natriuretic Peptide 139 pg/mL (0-125) H Total Protein 8.6 G/DL (6.4-8.2) H Albumin 2.9 G/DL (3.4-5.0) L Globulin 5.7 g/dL Albumin/Globulin Ratio 0.5 (1.0-2.7) L Lipase 640 U/L (73-393) H Arterial Blood pH 7.430 (7.350-7.450) Arterial Blood Partial Pressure CO2 26.7 mmHg (35.0-45.0) L Arterial Blood Partial Pressure O2 70.4 mmHg (75.0-100.0) L Arterial Blood HCO3 17.4 mmol/L (22.0-26.0) *L Arterial Blood Oxygen Saturation 92.7 % (95-100) L Arterial Blood Base Excess -5.4 (-2-2) L Foreign Test Positive Urine Color Brown Urine Appearance Cloudy Urine pH 5 (4.5-8.0) Urine Specific [place] 1.020 (1.005-1.035) Urine Protein 3+ (NEGATIVE) H Urine Glucose (UA) Negative (NEGATIVE) Urine Ketones 1+ (NEGATIVE) H Urine Blood 4+ (NEGATIVE) H Urine Nitrite Positive (NEGATIVE) H Urine Bilirubin 2+ (NEGATIVE) H Urine Ictotest Negative (NEGATIVE) Urine Urobilinogen 4 MG/DL (0.0-1.0) H Urine Leukocyte Esterase 3+ (NEGATIVE) H Urine RBC 5-10 /HPF (0 - 0) H Urine WBC 20-30 /HPF (0 - 0) H Urine Squamous Epithelial Cells Occasional /LPF Urine Bacteria Many /HPF (NONE) H Urine Fine Granular Casts 2-4 /LPF (NONE) H Urine Coarse Granular Casts 0-2 /LPF (NONE) H Height (Feet): 5 Height (Inches): 5.00 Weight (Pounds): 118 Medications Current Medications Medications (Trade) Dose Ordered Sig/Altagracia Route PRN Reason Start Time Stop Time Status Last Admin Dose Admin Dextrose/Sodium Chloride 1,000 ml @ 150 mls/hr Q6H40M IV 09/09/18 20:45 10/09/18 20:44 09/09/18 21:45 Famotidine (Pepcid I.v.) 20 mg DAILY IVP 09/09/18 21:00 10/09/18 20:59 Heparin Sodium (Porcine) (Heparin 5000 units/ml) 5,000 units EVERY 12 HOURS SUBQ 09/09/18 21:00 10/09/18 20:59 09/09/18 21:44 Norepinephrine Bitartrate 4 mg/ Dextrose 250 ml @ 0 mls/hr Q24H IV 09/09/18 20:30 10/09/18 20:29 Piperacillin Sod/ Tazobactam Sod 3.375 gm/Sodium Chloride 110 ml @ 27.5 mls/hr EVERY 12 HOURS IVPB 09/10/18 09:00 09/15/18 08:59 Vancomycin HCl (Vanco rx to dose) 1 ea DAILY PRN MISC Per rx protocol 09/09/18 21:00 10/09/18 20:59 Assessment/Plan Assessment/Plan: 72 year old male admitted for septic shock 2/2 pna vs uti Septic shock likley 2/2 PNA vs UTI -Cont Vanc, Zosyn -f/u blood cultures -Change dopamine to Levaquin - titrate to goal MAP >65 -Monitor respiratory status -s/p 3L NS -Cont NS @100cc/hr -ID Consulted -Pulm/Crit consulted #BRYANT -Likley 2/2 shock vs drug induced, CK elevated poss rhabdo -trend CK -nephrology consulted -CTM -avoid nephrotoxic medications #Hypernatremia likley 2/2 poor PO intake -cont NS for fluid resus then transition to D5w -Free water once NG tube placed -CTM -Nephrology consulted #dysphagia #Failure to thrive -consider nG tube placement -GI consult in AM #Full code Kimberlyn Bonner MD Sep 09, 2018 22:15
[2018-09-10] VITALS (33 sets, daily range): BP systolic 88–129; BP diastolic 51–92
--- NOTE | 2018-09-10 | NUR ---
NURSE NOTES: Pt's resting in bed, asleep, with eyes closed, in no acute distress. VS stable with no pressor. O2 sat at 98% with 2L/NC. Will continue to monitor.
--- NOTE | 2018-09-10 00:02 | Infectious Diseases Prog Note ---
Assessment/Plan Assessment/Plan Full consult to follow: A) sepsis shock uti pna leukocytosis renal failure P) zosyn and vancomycin check cultures monitor labs, cr, chest x-ray icu care thank you Subjective Allergies: Coded Allergies: No Known Allergies (Unverified , 08/20/18) Objective Vital Signs Last 24 Hour Vital Signs Date Time Temp Pulse Resp B/P (MAP) Pulse Ox O2 Delivery O2 Flow Rate FiO2 09/09/18 20:30 94/60 09/09/18 20:07 87 09/09/18 19:50 97.8 87 22 111/93 (99) 92 09/09/18 19:41 98.6 78 22 125/66 95 Nasal Cannula 4.0 09/09/18 19:09 99.0 93 26 123/68 95 Nasal Cannula 3.0 09/09/18 19:07 99.0 83 26 85/63 94 Nasal Cannula 3.0 09/09/18 18:40 85/60 09/09/18 17:48 93 40 Nasal Cannula 3.0 09/09/18 16:28 97.2 93 40 89/74 (79) 92 Non-Rebreather 15.0 Height (Feet): 5 Height (Inches): 5.00 Weight (Pounds): 118 Laboratory Tests Test 09/09/18 16:30 09/09/18 16:40 09/09/18 17:10 09/09/18 17:23 White Blood Count 13.0 K/UL (4.8-10.8) H Red Blood Count 4.68 M/UL (4.70-6.10) L Hemoglobin 15.0 G/DL (14.2-18.0) Hematocrit 44.8 % (42.0-52.0) Mean Corpuscular Volume 96 FL (80-99) Mean Corpuscular Hemoglobin 32.0 PG (27.0-31.0) H Mean Corpuscular Hemoglobin Concent 33.5 G/DL (32.0-36.0) Red Cell Distribution Width 12.2 % (11.6-14.8) Platelet Count 269 K/UL (150-450) Mean Platelet Volume 8.5 FL (6.5-10.1) Neutrophils (%) (Auto) % (45.0-75.0) Lymphocytes (%) (Auto) % (20.0-45.0) Monocytes (%) (Auto) % (1.0-10.0) Eosinophils (%) (Auto) % (0.0-3.0) Basophils (%) (Auto) % (0.0-2.0) Differential Total Cells Counted 100 Neutrophils % (Manual) 78 % (45-75) H Lymphocytes % (Manual) 9 % (20-45) L Monocytes % (Manual) 2 % (1-10) Eosinophils % (Manual) 0 % (0-3) Basophils % (Manual) 0 % (0-2) Band Neutrophils 11 % (0-8) H Platelet Estimate Adequate Platelet Morphology Normal Red Blood Cell Morphology Normal Prothrombin Time 11.9 SEC (9.30-11.50) H Prothromb Time International Ratio 1.1 (0.9-1.1) Activated Partial Thromboplast Time 23 SEC (23-33) Sodium Level 162 MMOL/L (136-145) *H Potassium Level 5.1 MMOL/L (3.5-5.1) Chloride Level 120 MMOL/L (98-107) H Carbon Dioxide Level 23 MMOL/L (21-32) Anion Gap 19 mmol/L (5-15) H Blood Urea Nitrogen 152 mg/dL (7-18) H Creatinine 8.3 MG/DL (0.55-1.30) H Estimat Glomerular Filtration Rate mL/min (>60) Glucose Level 197 MG/DL (74-106) H Lactic Acid Level 3.30 mmol/L (0.4-2.0) H 2.80 mmol/L (0.66-2.22) H Calcium Level 9.9 MG/DL (8.5-10.1) Total Bilirubin 2.2 MG/DL (0.2-1.0) H Direct Bilirubin 1.2 MG/DL (0.0-0.3) H Aspartate Amino Transf (AST/SGOT) 123 U/L (15-37) H Alanine Aminotransferase (ALT/SGPT) 144 U/L (12-78) H Alkaline Phosphatase 170 U/L (46-116) H Total Creatine Kinase 3237 U/L (26-308) H Creatine Kinase MB 28.8 NG/ML (0.0-3.6) H Creatine Kinase MB Relative Index 0.8 Troponin I 0.050 ng/mL (0.000-0.056) Pro-B-Type Natriuretic Peptide 139 pg/mL (0-125) H Total Protein 8.6 G/DL (6.4-8.2) H Albumin 2.9 G/DL (3.4-5.0) L Globulin 5.7 g/dL Albumin/Globulin Ratio 0.5 (1.0-2.7) L Lipase 640 U/L (73-393) H Arterial Blood pH 7.430 (7.350-7.450) Arterial Blood Partial Pressure CO2 26.7 mmHg (35.0-45.0) L Arterial Blood Partial Pressure O2 70.4 mmHg (75.0-100.0) L Arterial Blood HCO3 17.4 mmol/L (22.0-26.0) *L Arterial Blood Oxygen Saturation 92.7 % (95-100) L Arterial Blood Base Excess -5.4 (-2-2) L Foreign Test Positive Urine Color Brown Urine Appearance Cloudy Urine pH 5 (4.5-8.0) Urine Specific [place] 1.020 (1.005-1.035) Urine Protein 3+ (NEGATIVE) H Urine Glucose (UA) Negative (NEGATIVE) Urine Ketones 1+ (NEGATIVE) H Urine Blood 4+ (NEGATIVE) H Urine Nitrite Positive (NEGATIVE) H Urine Bilirubin 2+ (NEGATIVE) H Urine Ictotest Negative (NEGATIVE) Urine Urobilinogen 4 MG/DL (0.0-1.0) H Urine Leukocyte Esterase 3+ (NEGATIVE) H Urine RBC 5-10 /HPF (0 - 0) H Urine WBC 20-30 /HPF (0 - 0) H Urine Squamous Epithelial Cells Occasional /LPF Urine Bacteria Many /HPF (NONE) H Urine Fine Granular Casts 2-4 /LPF (NONE) H Urine Coarse Granular Casts 0-2 /LPF (NONE) H Current Medications Medications (Trade) Dose Ordered Sig/Altagracia Route PRN Reason Start Time Stop Time Status Last Admin Dose Admin Chlorhexidine Gluconate (Corazon-Hex 2%) 1 applic DAILY@1999 TOPIC 09/10/18 20:00 10/10/18 19:59 Dextrose/Sodium Chloride 1,000 ml @ 150 mls/hr Q6H40M IV 09/09/18 20:45 10/09/18 20:44 09/09/18 21:45 Famotidine (Pepcid I.v.) 20 mg DAILY IVP 09/09/18 21:00 10/09/18 20:59 09/09/18 21:00 Heparin Sodium (Porcine) (Heparin 5000 units/ml) 5,000 units EVERY 12 HOURS SUBQ 09/09/18 21:00 10/09/18 20:59 09/09/18 21:44 Norepinephrine Bitartrate 4 mg/ Dextrose 250 ml @ 0 mls/hr Q24H IV 09/09/18 20:30 10/09/18 20:29 Piperacillin Sod/ Tazobactam Sod 3.375 gm/Sodium Chloride 110 ml @ 27.5 mls/hr EVERY 12 HOURS IVPB 09/10/18 09:00 09/15/18 08:59 Vancomycin HCl (Vanco rx to dose) 1 ea DAILY PRN MISC Per rx protocol 09/09/18 21:00 10/09/18 20:59 Bonny Rincon MD Sep 10, 2018 00:02
[2018-09-10] MEDS: D5 1/2NS 1,000 ML IV SCH ×2 (03:25→05:16)
[2018-09-10 05:53] LABS: HEMATOCRIT 32.4 % (42.0-52.0); HEMOGLOBIN 10.6 G/DL (14.2-18.0); MEAN CORPUSCULAR VOLUME 95 FL (80-99); PLATELET COUNT 174 K/UL (150-450); RED BLOOD COUNT 3.41 M/UL (4.70-6.10); RED CELL DISTRIBUTION WIDTH 12.7 % (11.6-14.8); WHITE BLOOD COUNT 8.4 K/UL (4.8-10.8)
[2018-09-10 06:32] LABS: CREATINE KINASE 3049 U/L (26-308); GAMMA GLUTAMYL TRANSPEPTIDASE 173 U/L (5-85); PHOSPHORUS 3.7 MG/DL (2.5-4.9)
[2018-09-10 06:33] LABS: ALANINE AMINOTRANSFERASE 90 U/L (12-78); ALBUMIN 2.4 G/DL (3.4-5.0); ALBUMIN/GLOBULIN RATIO 0.6 (1.0-2.7); ALKALINE PHOSPHATASE 104 U/L (46-116); ANION GAP 17 mmol/L (5-15); ASPARTATE AMINO TRANSFERASE 96 U/L (15-37); BILIRUBIN,TOTAL 1.6 MG/DL (0.2-1.0); BLOOD UREA NITROGEN 114 mg/dL (7-18); CALCIUM 8.3 MG/DL (8.5-10.1); CARBON DIOXIDE 18 MMOL/L (21-32); CHLORIDE 130 MMOL/L (98-107); CHOLESTEROL 145 MG/DL (< 200); CREATININE 4.7 MG/DL (0.55-1.30); HDL CHOLESTEROL 17 MG/DL (40-60); POTASSIUM 3.6 MMOL/L (3.5-5.1); TRIGLYCERIDES 168 MG/DL (30-150)
[2018-09-10 06:37] LABS: SODIUM 162 MMOL/L (136-145)
[2018-09-10 06:41] LABS: BILIRUBIN,DIRECT 0.9 MG/DL (0.0-0.3)
[2018-09-10 07:05] LABS: AMMONIA 40 umol/L (11-32)
--- NOTE | 2018-09-10 07:20 | NUR ---
HAND-OFF: Report given to ANTOINETTE Silva.
--- NOTE | 2018-09-10 07:25 | NUR ---
NURSE NOTES: Received report from Tao.pt resting in bed. open eyes spontaneously very flat effect, disoriented and garbled speech. Current BP 109/61, Hr 66, RR 20, O2 sat 98% with 2L/NC. SR on motorcycle tester. Bilateral lungs sound diminished, rhonchi. no cough noted. abdomen soft, bowel sounds hypoactive. no bm. Pt NPO. No skin breakdown, redness on bilateral feet and hip. Manriquez 16F draining dark malachi urine. IV Rt wrist 20G and Lt FA 22G, RT Femoral TLC, d51/2 ns @150ml/hr . HOB >30 bed in low and locked position. Call light within reach. Will continue to monitor.
--- NOTE | 2018-09-10 07:30 | NUR ---
NURSE NOTES: CANVAS CUTTER MACHINE HERE TO DO CXR
--- NOTE | 2018-09-10 07:38 | NUR ---
NURSE NOTES: HEALTH EDUCATION ASSISTANT HERE TO DO CXR Addendum: 09/10/18 at 1447 by Shira Venegas RN duplicate entry
--- NOTE | 2018-09-10 08:00 | NUR ---
NURSE NOTES: SPEECH THERAPIST HERE TO DO BEDSIDE SWALLOW EVAL. WILL CALL DAUGHTER TO SE IF NGT OK.
--- NOTE | 2018-09-10 08:13 | NUR ---
RADIOLOGY DEPT., CHEST X-RAY DONE.-P.DYE
[2018-09-10] MEDS: Piperacillin/Tazobactam 3.375 GM in NS 110 ML IVPB SCH ×2 (08:33→21:40)
--- NOTE | 2018-09-10 09:00 | NUR ---
NURSE NOTES: MD. YE HERE TO SEE PT. PLACED OWN ORDER TO D/C D51/2 NS, REPLACE W/ D5W @125ML/HR. OK TO INSERT NGT, SLIDING SCALE SENSITIVE.
--- NOTE | 2018-09-10 09:01 | Consultation ---
Consult Note Assessment/Plan DICT # [id number] Alexandr Feliciano MD Sep 10, 2018 09:01
--- NOTE | 2018-09-10 09:20 | Diagnostic Imaging Report ---
Indication: Shortness of breath Technique: XRAY Chest 1v Comparison: 08/20/2018 Findings: Heart size is stable. Atherosclerotic calcifications noted in the aorta. Patchy opacities in the left lung concerning for infection/pneumonia. There is left-sided volume loss and shift of mediastinal structures to the left. This suggests significant left-sided atelectasis. A small left pleural effusion is not excluded. No evidence of pneumothorax. No acute osseous abnormality. IMPRESSION: Left-sided airspace disease concerning for pneumonia. Left-sided volume loss and shift of mediastinal structures to less suggesting significant/large volume atelectasis. Study obtained via the emergency department however patient admitted to the hospital at time of dictation of the final report. Findings of the final report discussed the patient's treating ICU nurse the morning of 09/10/2018.
--- NOTE | 2018-09-10 09:23 | Diagnostic Imaging Report ---
Indication: Shortness of breath, cough Technique: Portable AP view of the chest Comparison: 09/09/2018 FINDINGS/IMPRESSION: Compared to the prior exam there is improved aeration with resolution of the previously seen shift of mediastinal structures of the left and trace lung volume on the left. Findings likely related to improved atelectasis. There are persistent patchy opacities in the left mid and lower lung concerning for pneumonia. A small left pleural effusion is again noted.
[2018-09-10] MEDS: Heparin 5000 units/ml inj SUBQ SCH ×2 (09:30→21:41)
--- NOTE | 2018-09-10 09:42 | Nephrology Progress Note ---
Assessment/Plan Problem List: (1) BRYANT (acute kidney injury) (2) Rhabdomyolysis (3) Septic shock (4) Failure to thrive syndrome, adult (5) Pneumonia Assessment Acute Renal Failure: ? Drug induced Was on Lisinopril and Celebrex Rhabdo: High CPK Dehydration Shock Sepsis / Pneumonia / UTI Malnutrition Plan Hydrate with D5 SS Insulin off pressors antibiotics monitor renal parameters per orders Subjective ROS Limited/Unobtainable: Yes Objective Objective Last 24 Hour Vital Signs Date Time Temp Pulse Resp B/P (MAP) Pulse Ox O2 Delivery O2 Flow Rate FiO2 09/10/18 07:00 66 20 108/61 (77) 98 09/10/18 06:00 68 20 121/72 (88) 98 09/10/18 05:00 64 20 119/57 (77) 98 09/10/18 04:00 65 09/10/18 04:00 64 18 113/59 (77) 99 09/10/18 04:00 Nasal Cannula 4.0 09/10/18 03:30 65 17 114/67 (83) 100 09/10/18 03:00 68 19 115/74 (88) 99 09/10/18 02:30 67 19 109/57 (74) 98 09/10/18 02:00 65 19 100/58 (72) 97 09/10/18 01:30 65 22 102/60 (74) 96 09/10/18 01:00 98.0 64 21 105/57 (73) 97 09/10/18 00:30 64 22 114/64 (81) 97 09/10/18 00:00 62 09/10/18 00:00 Nasal Cannula 4.0 09/10/18 00:00 62 20 98/59 (72) 99 09/09/18 23:30 63 20 107/62 (77) 98 09/09/18 23:00 64 21 100/56 (71) 99 09/09/18 22:30 66 22 114/54 (74) 99 09/09/18 22:00 65 24 100/55 (70) 98 09/09/18 21:45 70 26 112/51 (71) 98 09/09/18 21:30 69 19 92/67 (75) 97 09/09/18 21:15 70 22 100/70 (80) 97 09/09/18 21:00 71 22 90/62 (71) 97 09/09/18 20:45 73 23 97/56 (70) 96 09/09/18 20:30 94/60 09/09/18 20:30 74 22 108/63 (78) 96 09/09/18 20:15 73 23 95/60 (72) 95 09/09/18 20:07 87 09/09/18 20:07 Nasal Cannula 4.0 09/09/18 20:05 24 91/51 (64) 92 09/09/18 20:00 22 90/48 (62) 93 09/09/18 19:50 97.8 87 22 111/93 (99) 92 09/09/18 19:41 98.6 78 22 125/66 95 Nasal Cannula 4.0 09/09/18 19:09 99.0 93 26 123/68 95 Nasal Cannula 3.0 09/09/18 19:07 99.0 83 26 85/63 94 Nasal Cannula 3.0 09/09/18 18:40 85/60 09/09/18 17:48 93 40 Nasal Cannula 3.0 09/09/18 16:28 97.2 93 40 89/74 (79) 92 Non-Rebreather 15.0 Intake and Output 09/09/18 09/10/18 19:00 07:00 Intake Total 1250 ml 1500 ml Output Total 1410 ml Balance 1250 ml 90 ml Intake IV Total 1250 ml 1500 ml Output Urine Total 1410 ml Laboratory Tests 09/09/18 16:30: White Blood Count 13.0H, Red Blood Count 4.68L, Hemoglobin 15.0, Hematocrit 44.8 , Mean Corpuscular Volume 96, Mean Corpuscular Hemoglobin 32.0H, Mean Corpuscular Hemoglobin Concent 33.5, Red Cell Distribution Width 12.2, Platelet Count 269, Mean Platelet Volume 8.5, Neutrophils (%) (Auto) , Lymphocytes (%) ( Auto) , Monocytes (%) (Auto) , Eosinophils (%) (Auto) , Basophils (%) (Auto) , Differential Total Cells Counted 100, Neutrophils % (Manual) 78H, Lymphocytes % (Manual) 9L, Monocytes % (Manual) 2, Eosinophils % (Manual) 0, Basophils % ( Manual) 0, Band Neutrophils 11H, Platelet Estimate Adequate, Platelet Morphology Normal, Red Blood Cell Morphology Normal, Prothrombin Time 11.9H, Prothromb Time International Ratio 1.1, Activated Partial Thromboplast Time 23, Sodium Level 162*H, Potassium Level 5.1, Chloride Level 120H, Carbon Dioxide Level 23, Anion Gap 19H, Blood Urea Nitrogen 152H, Creatinine 8.3H, Estimat Glomerular Filtration Rate , Glucose Level 197H, Lactic Acid Level 3.30H, Calcium Level 9.9, Total Bilirubin 2.2H, Direct Bilirubin 1.2H, Aspartate Amino Transf (AST/SGOT) 123H, Alanine Aminotransferase (ALT/SGPT) 144H, Alkaline Phosphatase 170H, Total Creatine Kinase 3237H, Creatine Kinase MB 28.8H, Creatine Kinase MB Relative Index 0.8, Troponin I 0.050, Pro-B-Type Natriuretic Peptide 139H, Total Protein 8.6H, Albumin 2.9L, Globulin 5.7, Albumin/Globulin Ratio 0.5L, Lipase 640H 09/09/18 16:40: Arterial Blood pH 7.430, Arterial Blood Partial Pressure CO2 26.7L, Arterial Blood Partial Pressure O2 70.4L, Arterial Blood HCO3 17.4*L, Arterial Blood Oxygen Saturation 92.7L, Arterial Blood Base Excess -5.4L, Foreign Test Positive 09/09/18 17:10: Urine Color Brown, Urine Appearance Cloudy, Urine pH 5, Urine Specific [place] 1.020, Urine Protein 3+H, Urine Glucose (UA) Negative, Urine Ketones 1+H, Urine Blood 4+H, Urine Nitrite PositiveH, Urine Bilirubin 2+H, Urine Ictotest Negative , Urine Urobilinogen 4H, Urine Leukocyte Esterase 3+H, Urine RBC 5-10H, Urine WBC 20-30H, Urine Squamous Epithelial Cells Occasional, Urine Bacteria ManyH, Urine Fine Granular Casts 2-4H, Urine Coarse Granular Casts 0-2H 09/09/18 17:23: Lactic Acid Level 2.80H 09/10/18 00:10: Lactic Acid Level 2.40H 09/10/18 01:40: Lactic Acid Level 2.50H 09/10/18 05:17: Lactic Acid Level 2.80H, White Blood Count 8.4, Red Blood Count 3.41L, Hemoglobin 10.6L, Hematocrit 32.4L, Mean Corpuscular Volume 95, Mean Corpuscular Hemoglobin 31.2H, Mean Corpuscular Hemoglobin Concent 32.8, Red Cell Distribution Width 12.7, Platelet Count 174, Mean Platelet Volume 9.9, Neutrophils (%) (Auto) , Lymphocytes (%) (Auto) , Monocytes (%) (Auto) , Eosinophils (%) (Auto) , Basophils (%) (Auto) , Sodium Level 162*H, Potassium Level 3.6, Chloride Level 130H, Carbon Dioxide Level 18L, Anion Gap 17H, Blood Urea Nitrogen 114H, Creatinine 4.7H, Estimat Glomerular Filtration Rate , Glucose Level 203H, Hemoglobin A1c 6.3H, Uric Acid 9.5H, Calcium Level 8.3L, Phosphorus Level 3.7, Magnesium Level 2.9H, Total Bilirubin 1.6H, Direct Bilirubin 0.9H, Gamma Glutamyl Transpeptidase 173H, Aspartate Amino Transf (AST/ SGOT) 96H, Alanine Aminotransferase (ALT/SGPT) 90H, Alkaline Phosphatase 104, Ammonia 40H, Total Creatine Kinase 3049H, C-Reactive Protein, Quantitative 27.2H , Pro-B-Type Natriuretic Peptide 377H, Total Protein 6.3L, Albumin 2.4L, Globulin 3.9, Albumin/Globulin Ratio 0.6L, Triglycerides Level 168H, Cholesterol Level 145, LDL Cholesterol 90, HDL Cholesterol 17L, Cholesterol/HDL Ratio 8.5H, Vitamin B12 Level 1181H, Folate 12.4, Thyroid Stimulating Hormone ( TSH) 1.203 09/10/18 06:00: Urine Eosinophils None seen Height (Feet): 5 Height (Inches): 5.00 Weight (Pounds): 117 General Appearance: lethargic, confused Cardiovascular: tachycardia Respiratory/Chest: decreased breath sounds Abdomen: soft Minh Phipps MD Sep 10, 2018 09:42
--- NOTE | 2018-09-10 09:56 | NUR ---
Social Work This Sw met with patient currently in the ICU who is mostly nonverbal (confused, with a history of dementia), speaks/understands Jamaican only. This Sw spoke with step-daughter, Zonia Mills who explains he is no longer to [facility] [employer] (who is listed as a contact, but does not make decisions for patient). Zonia is the primary decision maker for patient, confirming she would like full code, full treatment (signed POLST by Zonia on front of patients chart, requesting this as well). Zonia also requesting for patient to return to [facility] [address] when medically cleared for discharge (patient is a resident there). No other needs or concerns present at this time; SW to follow for support as needed.
--- NOTE | 2018-09-10 10:32 | NUR ---
SWALLOW/SPEECH THERAPY NOTE: REFERRED BY DR GIBSON (DR VILLALTA PRIMARY) FOR A SWALLOW EVALUATION, SEE FULL REPORT IN CARE PROGRAM RESIDENT CARE ACTIVITY SECTION. DYSPHAGIA RISK FACTORS FOR THIS 72 Y.O. [place]ESE/[place]IZEN OF [place]-SPEAKING MALE: ACUTE PNA likely aspiration related, DYSPNEA ON 4 LITERS NC IN ICU, HYPOTENSION, DEHYDRATION, POOR INTAKE PRIOR TO ADMIT. 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 AT [facility] ONE MONTH AGO, SWALLOW EVAL 08/23/18 NOTED MILD-MOD OROPHARYNGEAL DYSPHAGIA AND HIGH SILENT ASPIRATION RISK. VIDEOSWALLOW STUDY RECOMMENDED BUT NOT COMPLETED DUE TO SCHEDULE ISSUES AND PATIENT HAD PERIODS OF REFUSING PO. PLACED ON A LIQUIFIED PUREED LIKE NECTAR THICK LIQUID DIET WITH ENSURE AND POSTED ASPIRATION AND REFLUX PRECAUTIONS BUT INTAKE 0 TO LESS THAN 75% MOST OF THE TIME. PRESENTLY NPO EXCEPT MEDS/ICE CHIPS (DOES NOT GET ICE CHIPS AND CRUSHED MEDS WITH PUREED STAYS IN HIS MOUTH AND MUST BE REMOVED). NOT SUCTIONING SALIVA BUT HAS POOR AND MISSING DENTITION. ALERT BUT NONVERBAL, MOANS WITH PAIN. GIVEN TSP NECTAR THICK LIQUID WATER TO SEE IF HE IS READY FOR MBSS ONLY. INITIAL IMPRESSIONS: SEVERE OROPHARYNGEAL DYSPHAGIA WITH SEVERE INCREASE IN ORAL PREP AND OROPHARYNGEAL TRANSIT TIMES WITH TSP NECTAR THICK LIQUID. BILATERAL ORAL SPILLAGE TO CHEEK AND DID NOT SWALLOW BOLUS REQUIRING SUCTIONING FROM THIS MOUTH. HE DID COUGH. RECOMMENDATIONS: HOLP PO (INCLUDES ICE CHIPS AND PO MEDS) INITIATE 12 TUNISIAN NGT FEEDINGS (OK WITH DR GIBSNO) AND CONTINUE WITH ORAL CARE. CHECK DAILY FOR MOD BARIUM SWALLOW STUDY READINESS. SKILLED DYSPHAGIA MANAGEMENT AND TX EDUCATED/TRAINED RN IN POSTED ASPIRATION PRECAUTIONS AND ORAL CARE D/W WITH PATIENT (CONFUSED), HIS STEPDAUGHTER AND DPSHIVANI, S.W., AND HIS RN BRENT.
--- NOTE | 2018-09-10 10:37 | NUR ---
NURSE NOTES: called Braden to inform CXR results. awaiting brie back.
--- NOTE | 2018-09-10 11:00 | NUR ---
NURSE NOTES: Received message from MD Feliciano, no new orders.
--- NOTE | 2018-09-10 11:40 | Cardiology Report ---
APPROVED REPORT EKG Measurement Heart [id number] Normal sinus rhythm Rightward axis Borderline ECG
--- NOTE | 2018-09-10 11:47 | NUR ---
RD ASSESSMENT & RECOMMENDATIONS SEE CARE ACTIVITY FOR COMPLETE ASSESSMENT DAILY ESTIMATED NEEDS: Needs based on Wt loss, wound/ 53kg 30-35 kcals/kg 9330-7498 total kcals 1.25-1.5 g protein/kg 66-79 g total protein 25-30 mL/kg 5772-4747 total fluid mLs NUTRITION DIAGNOSIS: * Swallowing difficulty R/T dysphagia, decreased cognitive fxn as evidenced by FURNACE BUILDER recommends NPO at this time, w/ an order for NGT insertion. * Increased kcal/prot intake needs R/T wt loss, wound healing as evidenced by pt admitted w/ possible significant wt loss of 10 pounds/7.9% wt loss in <1 mo, w/ wound photos, not yet evaluated. * Altered nutrition related lab values R/T ARF, dehydration, diabetes as evidenced by elev Na (162), elev Creat (8.3->4.7), elev BGs (203 197), elev A1C 6.3. CURRENT DIET:NPO ENTERAL NUTRITION RECOMMENDATIONS: Glucerna 1.2 @ 56ml/hr x 24 hrs to provide 1344ml, 1613kcal, 80g prot, 1082ml free water * W/ GI access, initiate Glucerna 1.2 @ 26ml/hr x 6 hrs * Advance 10ml q 4-6 hrs as tolerated to goal rate of 56ml/hr x 24 hrs * HOB over 30 degrees/ water flush per MD ADDITIONAL RECOMMENDATIONS: * Per SNF, HT=63", QT=384tqm (on 08/30/18) * Monitor renal fxn- improving at this time * Monitor lytes w/ TF, replete as needed * F/up wound eval -> rec to add Lemuel 1pkt BID
[2018-09-10] MEDS: NovoLOG Insulin Flexpen SUBQ SCH ×3 (12:00→21:39)
[2018-09-10] MEDS ORDERED: NovoLOG Insulin Flexpen SUBQ SCH (12:00)
--- NOTE | 2018-09-10 12:18 | Consultation ---
History of Present Illness General Date patient seen: Sep 10, 2018 Chief Complaint: Dyspnea/Respdistress Present Illness HPI 72 year old male intermediate resident transferred from intermediate for evaluation of sob and respiratory insufficiency requiring support. on admission noted to be septic with tachycardia, leukocytosis, lactic acidosis, abnormal abg, renal insufficiency. Patient non verbal and unable to provide history. Surgery called to evaluate and assist with care. patient seen, chart reviewed, patient examined. Multiple wounds noted on admission Allergies: Coded Allergies: No Known Allergies (Unverified , 08/20/18) Medication History Scheduled Celecoxib* (Celebrex*), 100 MG ORAL DAILY, (Reported) Ergocalciferol (Vitamin D2)* (Vitamin D*), 50,000 UNIT ORAL ONCE A WEEK, ( Reported) Famotidine (Pepcid Ac), 20 MG PO BID, (Reported) Lisinopril* (Zestril*), 10 MG ORAL DAILY Thiamine Hcl* (Vitamin B-1*), 100 MG ORAL DAILY, (Reported) Vitamin D (Vitamin D3), 400 UNITS ORAL DAILY, (Reported) Scheduled PRN Acetaminophen (Acetaminophen), 650 MG RC Q6HR PRN for FEVER, (Reported) Tramadol Hcl* (Ultram*), 50 MG ORAL DAILY PRN for For Pain, (Reported) Discontinued Medications Acetaminophen* (Acetaminophen 325MG Tablet*), 650 MG RC Q6H PRN for Mild Pain/ Temp > 100.5, (Reported) Discontinued Reason: Prescription changed Risperidone (Risperdal), 1 MG PO, (Reported) Discontinued Reason: Therapy completed Thiamine Hcl (Thiamine Hcl), 100 MG IJ, (Reported) Discontinued Reason: Prescription changed Trazodone Hcl* (Desyrel*), 50 MG ORAL BEDTIME, (Reported) Discontinued Reason: Therapy completed Patient History Limited by: medical condition History Provided By: Medical Record, PMD Healthcare decision maker N Resuscitation status Full Code Advanced Directive on File No Past Medical/Surgical History Past Medical/Surgical History: (1) Pneumonia (2) RBYANT (acute kidney injury) (3) Septic shock (4) Failure to thrive syndrome, adult (5) Rhabdomyolysis Review of Systems ROS Narrative cannot obtain given medical condition Physical Exam General Appearance: mild distress Lines, tubes and drains: other HEENT: mucous membranes moist Neck: normal inspection Respiratory/Chest: decreased breath sounds Cardiovascular/Chest: tachycardia Abdomen: soft, no organomegaly, no mass, other Extremities: other Skin Exam: warm/dry Last 24 Hour Vital Signs Date Time Temp Pulse Resp B/P (MAP) Pulse Ox O2 Delivery O2 Flow Rate FiO2 09/10/18 10:30 71 19 119/92 (101) 100 09/10/18 10:00 70 19 103/55 (71) 98 09/10/18 09:30 74 23 123/80 (94) 98 09/10/18 09:00 74 20 129/59 (82) 97 09/10/18 08:30 73 17 114/58 (76) 97 09/10/18 08:00 97.7 66 16 119/66 (83) 98 09/10/18 08:00 Nasal Cannula 2.0 09/10/18 07:00 66 20 108/61 (77) 98 09/10/18 06:00 68 20 121/72 (88) 98 09/10/18 05:00 64 20 119/57 (77) 98 09/10/18 04:00 65 09/10/18 04:00 64 18 113/59 (77) 99 09/10/18 04:00 Nasal Cannula 4.0 09/10/18 03:30 65 17 114/67 (83) 100 09/10/18 03:00 68 19 115/74 (88) 99 09/10/18 02:30 67 19 109/57 (74) 98 09/10/18 02:00 65 19 100/58 (72) 97 09/10/18 01:30 65 22 102/60 (74) 96 09/10/18 01:00 98.0 64 21 105/57 (73) 97 09/10/18 00:30 64 22 114/64 (81) 97 09/10/18 00:00 62 09/10/18 00:00 Nasal Cannula 4.0 09/10/18 00:00 62 20 98/59 (72) 99 09/09/18 23:30 63 20 107/62 (77) 98 09/09/18 23:00 64 21 100/56 (71) 99 09/09/18 22:30 66 22 114/54 (74) 99 09/09/18 22:00 65 24 100/55 (70) 98 09/09/18 21:45 70 26 112/51 (71) 98 09/09/18 21:30 69 19 92/67 (75) 97 09/09/18 21:15 70 22 100/70 (80) 97 09/09/18 21:00 71 22 90/62 (71) 97 09/09/18 20:45 73 23 97/56 (70) 96 09/09/18 20:30 94/60 09/09/18 20:30 74 22 108/63 (78) 96 09/09/18 20:15 73 23 95/60 (72) 95 09/09/18 20:07 87 09/09/18 20:07 Nasal Cannula 4.0 09/09/18 20:05 24 91/51 (64) 92 09/09/18 20:00 22 90/48 (62) 93 09/09/18 19:50 97.8 87 22 111/93 (99) 92 09/09/18 19:41 98.6 78 22 125/66 95 Nasal Cannula 4.0 09/09/18 19:09 99.0 93 26 123/68 95 Nasal Cannula 3.0 09/09/18 19:07 99.0 83 26 85/63 94 Nasal Cannula 3.0 09/09/18 18:40 85/60 09/09/18 17:48 93 40 Nasal Cannula 3.0 09/09/18 16:28 97.2 93 40 89/74 (79) 92 Non-Rebreather 15.0 Intake and Output 09/09/18 09/10/18 19:00 07:00 Intake Total 1250 ml 1500 ml Output Total 1410 ml Balance 1250 ml 90 ml Intake IV Total 1250 ml 1500 ml Output Urine Total 1410 ml Laboratory Tests Test 09/09/18 16:30 09/09/18 16:40 09/09/18 17:10 09/09/18 17:23 White Blood Count 13.0 K/UL (4.8-10.8) H Red Blood Count 4.68 M/UL (4.70-6.10) L Hemoglobin 15.0 G/DL (14.2-18.0) Hematocrit 44.8 % (42.0-52.0) Mean Corpuscular Volume 96 FL (80-99) Mean Corpuscular Hemoglobin 32.0 PG (27.0-31.0) H Mean Corpuscular Hemoglobin Concent 33.5 G/DL (32.0-36.0) Red Cell Distribution Width 12.2 % (11.6-14.8) Platelet Count 269 K/UL (150-450) Mean Platelet Volume 8.5 FL (6.5-10.1) Neutrophils (%) (Auto) % (45.0-75.0) Lymphocytes (%) (Auto) % (20.0-45.0) Monocytes (%) (Auto) % (1.0-10.0) Eosinophils (%) (Auto) % (0.0-3.0) Basophils (%) (Auto) % (0.0-2.0) Differential Total Cells Counted 100 Neutrophils % (Manual) 78 % (45-75) H Lymphocytes % (Manual) 9 % (20-45) L Monocytes % (Manual) 2 % (1-10) Eosinophils % (Manual) 0 % (0-3) Basophils % (Manual) 0 % (0-2) Band Neutrophils 11 % (0-8) H Platelet Estimate Adequate Platelet Morphology Normal Red Blood Cell Morphology Normal Prothrombin Time 11.9 SEC (9.30-11.50) H Prothromb Time International Ratio 1.1 (0.9-1.1) Activated Partial Thromboplast Time 23 SEC (23-33) Sodium Level 162 MMOL/L (136-145) *H Potassium Level 5.1 MMOL/L (3.5-5.1) Chloride Level 120 MMOL/L (98-107) H Carbon Dioxide Level 23 MMOL/L (21-32) Anion Gap 19 mmol/L (5-15) H Blood Urea Nitrogen 152 mg/dL (7-18) H Creatinine 8.3 MG/DL (0.55-1.30) H Estimat Glomerular Filtration Rate mL/min (>60) Glucose Level 197 MG/DL (74-106) H Lactic Acid Level 3.30 mmol/L (0.4-2.0) H 2.80 mmol/L (0.66-2.22) H Calcium Level 9.9 MG/DL (8.5-10.1) Total Bilirubin 2.2 MG/DL (0.2-1.0) H Direct Bilirubin 1.2 MG/DL (0.0-0.3) H Aspartate Amino Transf (AST/SGOT) 123 U/L (15-37) H Alanine Aminotransferase (ALT/SGPT) 144 U/L (12-78) H Alkaline Phosphatase 170 U/L (46-116) H Total Creatine Kinase 3237 U/L (26-308) H Creatine Kinase MB 28.8 NG/ML (0.0-3.6) H Creatine Kinase MB Relative Index 0.8 Troponin I 0.050 ng/mL (0.000-0.056) Pro-B-Type Natriuretic Peptide 139 pg/mL (0-125) H Total Protein 8.6 G/DL (6.4-8.2) H Albumin 2.9 G/DL (3.4-5.0) L Globulin 5.7 g/dL Albumin/Globulin Ratio 0.5 (1.0-2.7) L Lipase 640 U/L (73-393) H Arterial Blood pH 7.430 (7.350-7.450) Arterial Blood Partial Pressure CO2 26.7 mmHg (35.0-45.0) L Arterial Blood Partial Pressure O2 70.4 mmHg (75.0-100.0) L Arterial Blood HCO3 17.4 mmol/L (22.0-26.0) *L Arterial Blood Oxygen Saturation 92.7 % (95-100) L Arterial Blood Base Excess -5.4 (-2-2) L Foreign Test Positive Urine Color Brown Urine Appearance Cloudy Urine pH 5 (4.5-8.0) Urine Specific [place] 1.020 (1.005-1.035) Urine Protein 3+ (NEGATIVE) H Urine Glucose (UA) Negative (NEGATIVE) Urine Ketones 1+ (NEGATIVE) H Urine Blood 4+ (NEGATIVE) H Urine Nitrite Positive (NEGATIVE) H Urine Bilirubin 2+ (NEGATIVE) H Urine Ictotest Negative (NEGATIVE) Urine Urobilinogen 4 MG/DL (0.0-1.0) H Urine Leukocyte Esterase 3+ (NEGATIVE) H Urine RBC 5-10 /HPF (0 - 0) H Urine WBC 20-30 /HPF (0 - 0) H Urine Squamous Epithelial Cells Occasional /LPF Urine Bacteria Many /HPF (NONE) H Urine Fine Granular Casts 2-4 /LPF (NONE) H Urine Coarse Granular Casts 0-2 /LPF (NONE) H Test 09/10/18 00:10 09/10/18 01:40 09/10/18 05:17 09/10/18 06:00 Lactic Acid Level 2.40 mmol/L (0.4-2.0) H 2.50 mmol/L (0.66-2.22) H 2.80 mmol/L (0.4-2.0) H White Blood Count 8.4 K/UL (4.8-10.8) Red Blood Count 3.41 M/UL (4.70-6.10) L Hemoglobin 10.6 G/DL (14.2-18.0) L Hematocrit 32.4 % (42.0-52.0) L Mean Corpuscular Volume 95 FL (80-99) Mean Corpuscular Hemoglobin 31.2 PG (27.0-31.0) H Mean Corpuscular Hemoglobin Concent 32.8 G/DL (32.0-36.0) Red Cell Distribution Width 12.7 % (11.6-14.8) Platelet Count 174 K/UL (150-450) Mean Platelet Volume 9.9 FL (6.5-10.1) Neutrophils (%) (Auto) % (45.0-75.0) Lymphocytes (%) (Auto) % (20.0-45.0) Monocytes (%) (Auto) % (1.0-10.0) Eosinophils (%) (Auto) % (0.0-3.0) Basophils (%) (Auto) % (0.0-2.0) Sodium Level 162 MMOL/L (136-145) *H Potassium Level 3.6 MMOL/L (3.5-5.1) Chloride Level 130 MMOL/L (98-107) H Carbon Dioxide Level 18 MMOL/L (21-32) L Anion Gap 17 mmol/L (5-15) H Blood Urea Nitrogen 114 mg/dL (7-18) H Creatinine 4.7 MG/DL (0.55-1.30) H Estimat Glomerular Filtration Rate mL/min (>60) Glucose Level 203 MG/DL (74-106) H Hemoglobin A1c 6.3 % (4.3-6.0) H Uric Acid 9.5 MG/DL (2.6-7.2) H Calcium Level 8.3 MG/DL (8.5-10.1) L Phosphorus Level 3.7 MG/DL (2.5-4.9) Magnesium Level 2.9 MG/DL (1.8-2.4) H Total Bilirubin 1.6 MG/DL (0.2-1.0) H Direct Bilirubin 0.9 MG/DL (0.0-0.3) H Gamma Glutamyl Transpeptidase 173 U/L (5-85) H Aspartate Amino Transf (AST/SGOT) 96 U/L (15-37) H Alanine Aminotransferase (ALT/SGPT) 90 U/L (12-78) H Alkaline Phosphatase 104 U/L (46-116) Ammonia 40 umol/L (11-32) H Total Creatine Kinase 3049 U/L (26-308) H C-Reactive Protein, Quantitative 27.2 mg/dL (0.00-0.90) H Pro-B-Type Natriuretic Peptide 377 pg/mL (0-125) H Total Protein 6.3 G/DL (6.4-8.2) L Albumin 2.4 G/DL (3.4-5.0) L Globulin 3.9 g/dL Albumin/Globulin Ratio 0.6 (1.0-2.7) L Triglycerides Level 168 MG/DL (30-150) H Cholesterol Level 145 MG/DL (< 200) LDL Cholesterol 90 mg/dL (<100) HDL Cholesterol 17 MG/DL (40-60) L Cholesterol/HDL Ratio 8.5 (3.3-4.4) H Vitamin B12 Level 1181 PG/ML (193-986) H Folate 12.4 NG/ML (8.6-58.9) Thyroid Stimulating Hormone (TSH) 1.203 uiU/mL (0.358-3.740) Urine Eosinophils None seen (NONE SEEN) Test 09/10/18 09:50 Lactic Acid Level 2.50 mmol/L (0.66-2.22) H Microbiology Date/Time Source Procedure Growth Status 09/09/18 17:10 Urine,Clean Catch Urine Culture - Preliminary NO GROWTH Resulted Height (Feet): 5 Height (Inches): 5.00 Weight (Pounds): 117 Medications Current Medications Medications (Trade) Dose Ordered Sig/Altagracia Route PRN Reason Start Time Stop Time Status Last Admin Dose Admin Chlorhexidine Gluconate (Corazon-Hex 2%) 1 applic DAILY@1999 TOPIC 09/10/18 20:00 7/28/19 19:59 Dextrose 1,000 ml @ 125 mls/hr Q8H IV 09/10/18 07:50 10/10/18 07:49 09/10/18 08:33 Dextrose (Dextrose 50%) 25 ml Q30M PRN IV Hypoglycemia 09/10/18 10:45 10/10/18 10:44 Dextrose (Dextrose 50%) 50 ml Q30M PRN IV Hypoglycemia 09/10/18 10:45 10/10/18 10:44 Famotidine (Pepcid I.v.) 20 mg DAILY IVP 09/09/18 21:00 10/09/18 20:59 09/10/18 08:35 Heparin Sodium (Porcine) (Heparin 5000 units/ml) 5,000 units EVERY 12 HOURS SUBQ 09/09/18 21:00 10/09/18 20:59 09/10/18 09:30 Insulin Aspart (NovoLOG) Q5H SUBQ 09/10/18 12:00 10/10/18 11:59 Norepinephrine Bitartrate 4 mg/ Dextrose 250 ml @ 0 mls/hr Q24H IV 09/09/18 20:30 10/09/18 20:29 Piperacillin Sod/ Tazobactam Sod 3.375 gm/Sodium Chloride 110 ml @ 27.5 mls/hr EVERY 12 HOURS IVPB 09/10/18 09:00 09/15/18 08:59 09/10/18 08:33 Vancomycin HCl (Vanco rx to dose) 1 ea DAILY PRN MISC Per rx protocol 09/09/18 21:00 10/09/18 20:59 Assessment/Plan Problem List: (1) Decubitus skin ulcer Assessment & Plan: Patient presented with multiple decubitus ulcers and wounds. He is identified to have heel, lower extremity, sacral wounds. None look actively infected. Please refer to photos for details. We will continue with care while in hospital. ICD Codes: L89.90 - Pressure ulcer of unspecified site, unspecified stage SNOMED: 891948000 (2) Pneumonia ICD Codes: J18.9 - Pneumonia, unspecified organism SNOMED: 105706848 (3) BRYANT (acute kidney injury) ICD Codes: N17.9 - Acute kidney failure, unspecified SNOMED: 9014368, 94665199 (4) Septic shock Assessment & Plan: DAILY ESTIMATED NEEDS: Needs based on Wt loss, wound/ 53kg 30-35 kcals/kg 5459-7557 total kcals 1.25-1.5 g protein/kg 66-79 g total protein 25-30 mL/kg 1359-2845 total fluid mLs NUTRITION DIAGNOSIS: * Swallowing difficulty R/T dysphagia, decreased cognitive fxn as evidenced by TROUBLE LOCATER recommends NPO at this time, w/ an order for NGT insertion. * Increased kcal/prot intake needs R/T wt loss, wound healing as evidenced by pt admitted w/ possible significant wt loss of 10 pounds/7.9% wt loss in <1 mo, w/ wound photos, not yet evaluated. * Altered nutrition related lab values R/T ARF, dehydration, diabetes as evidenced by elev Na (162), elev Creat (8.3->4.7), elev BGs (203 197), elev A1C 6.3. CURRENT DIET:NPO ENTERAL NUTRITION RECOMMENDATIONS: Glucerna 1.2 @ 56ml/hr x 24 hrs to provide 1344ml, 1613kcal, 80g prot, 1082ml free water * W/ GI access, initiate Glucerna 1.2 @ 26ml/hr x 6 hrs * Advance 10ml q 4-6 hrs as tolerated to goal rate of 56ml/hr x 24 hrs * HOB over 30 degrees/ water flush per MD ADDITIONAL RECOMMENDATIONS: * Per SNF, HT=63", TJ=401lbe (on 08/30/18) * Monitor renal fxn- improving at this time * Monitor lytes w/ TF, replete as needed * F/up wound eval -> rec to add Lemuel 1pkt BID ICD Codes: A41.9 - Sepsis, unspecified organism; R65.21 - Severe sepsis with septic shock SNOMED: 48065213 (5) Failure to thrive syndrome, adult Assessment & Plan: Needs nutritional supplementation NG Tube for now for feeds and meds start tube feeds ICD Codes: R62.7 - Failure to thrive syndrome, adult SNOMED: 264607904 (6) Rhabdomyolysis ICD Codes: M62.82 - Rhabdomyolysis SNOMED: 239406717 Reji Guy Sep 10, 2018 12:18
--- NOTE | 2018-09-10 14:13 | Diagnostic Imaging Report ---
Indication: Nasogastric tube placement. Technique: 2 portable supine views of the abdomen Comparison: None Findings: Nasogastric tube is coiled within the stomach. Nonspecific bowel gas pattern with some mildly prominent small bowel loops noted. No definite radiographic evidence of free intraperitoneal air however evaluation is limited on supine view. A right transfemoral central line is noted with the tip projecting to the right of the midline at the level of L5. Manriquez catheter noted. There are degenerative changes of the lower lumbar spine. No acute osseous abnormality. Impression: * NG tube in the stomach. * Satisfactory positioning of right transfemoral central line. * Gaseous distention of some prominent small bowel loops. Consider further evaluation with CT with IV and oral contrast for more sensitive evaluation as clinically indicated.
--- NOTE | 2018-09-10 14:32 | NUR ---
RADIOLOGY DEPT., ABDOMEN X-RAY FOR NGT PLMT COMPLETED.-P.DYE
--- NOTE | 2018-09-10 14:51 | NUR ---
NURSE NOTES: MD TAMIKO COLLINS, HERE TO SEE PT. RECOMMENDED PT HAVE DUPLEX OF LOWER EXTREMITIES. GRIMACES WITH MOVEMENT AND MANIPULATION, INCREASED TEMP FROM 97 TO 99.3. RECEIVED ORDER TO PLACE DUPLEX OF LOWER EXTREMITIES, 1,000MG TYLENOL Q6HR FOR PAIN AND FEVER. AM LABS CK, BMP, CBC, LACTIC REFLEX.
[2018-09-10] MEDS ORDERED: Acetaminophen 500mg (ES) tab ORAL PRN (15:10)
--- NOTE | 2018-09-10 15:10 | NUR ---
NURSE NOTES: MD. STORY HERE TO SEE PT. NO NEW ORDERS AT THIS TIME.
--- NOTE | 2018-09-10 15:10 | NUR ---
NURSE NOTES: called MD GIBSON to inform KUB results. awaiting call back.
--- NOTE | 2018-09-10 15:36 | NUR ---
CASE MANAGEMENT: INITIAL REVIEW 72 YO M MANJINDER FROM REHAB ON [place] CC: DYSPNEA PMHx: HYPOKALEMIA. DEMENTIA. WEAKNESS. SI:DYSPNEA. HYPOTENSION. T 97.2 HR 93 RR 40 B/P 89/74 SATS 92% ON 15L/NRB WBC 13 NA 162 CL 130 BUN 114 CR 4.7 GLU 203 ABGs PCO2 26.7 PO2 70.4 HCO3 17.4 O2 SATS 92.7 BE -5.4 IS: IVF @ 125 mL/HR ZOSYN IV Q12H PEPCID IV QD LEVOPHED IV Q24H INSULIN SUBQ Q5H ICU STATUS DCP: PATIENT TO BE DISCHARGED TO HOME ONCE MEDICALLY CLEARED. INTERQUAL MET
--- NOTE | 2018-09-10 16:00 | NUR ---
NURSE NOTES: pt had large firm BM. cleaned and repositioned. vss. febrile. cooling measures in place. will continue to monitor pt.
--- NOTE | 2018-09-10 16:18 | Infectious Diseases Prog Note ---
Assessment/Plan Assessment/Plan Full consult dictated: A) sepsis shock uti pna leukocytosis renal failure P) zosyn and vancomycin f/u on cultures monitor labs, cr, chest x-ray icu care d/w Dr. Bonner Subjective Constitutional: Reports: other - off pressors ; Denies: fever HEENT: Reports: congestion Respiratory: Reports: shortness of breath Cardiovascular: Denies: chest pain Gastrointestinal/Abdominal: Denies: nausea, vomiting, diarrhea Genitourinary: Reports: other - + duggan Allergies: Coded Allergies: No Known Allergies (Unverified , 08/20/18) Objective Vital Signs Last 24 Hour Vital Signs Date Time Temp Pulse Resp B/P (MAP) Pulse Ox O2 Delivery O2 Flow Rate FiO2 09/10/18 13:00 70 19 103/62 (76) 99 09/10/18 12:30 68 19 111/57 (75) 99 09/10/18 12:00 99.3 66 20 117/66 (83) 100 09/10/18 12:00 65 09/10/18 12:00 Nasal Cannula 2.0 09/10/18 11:30 70 20 109/69 (82) 99 09/10/18 11:00 72 21 120/66 (84) 98 09/10/18 10:30 71 19 119/92 (101) 100 09/10/18 10:00 70 19 103/55 (71) 98 09/10/18 09:30 74 23 123/80 (94) 98 09/10/18 09:00 74 20 129/59 (82) 97 09/10/18 08:30 73 17 114/58 (76) 97 09/10/18 08:00 97.7 66 16 119/66 (83) 98 09/10/18 08:00 64 09/10/18 08:00 Nasal Cannula 2.0 09/10/18 07:00 66 20 108/61 (77) 98 09/10/18 06:00 68 20 121/72 (88) 98 09/10/18 05:00 64 20 119/57 (77) 98 09/10/18 04:00 65 09/10/18 04:00 64 18 113/59 (77) 99 09/10/18 04:00 Nasal Cannula 4.0 09/10/18 03:30 65 17 114/67 (83) 100 09/10/18 03:00 68 19 115/74 (88) 99 09/10/18 02:30 67 19 109/57 (74) 98 09/10/18 02:00 65 19 100/58 (72) 97 09/10/18 01:30 65 22 102/60 (74) 96 09/10/18 01:00 98.0 64 21 105/57 (73) 97 09/10/18 00:30 64 22 114/64 (81) 97 09/10/18 00:00 62 09/10/18 00:00 Nasal Cannula 4.0 09/10/18 00:00 62 20 98/59 (72) 99 09/09/18 23:30 63 20 107/62 (77) 98 09/09/18 23:00 64 21 100/56 (71) 99 09/09/18 22:30 66 22 114/54 (74) 99 09/09/18 22:00 65 24 100/55 (70) 98 09/09/18 21:45 70 26 112/51 (71) 98 09/09/18 21:30 69 19 92/67 (75) 97 09/09/18 21:15 70 22 100/70 (80) 97 09/09/18 21:00 71 22 90/62 (71) 97 09/09/18 20:45 73 23 97/56 (70) 96 09/09/18 20:30 94/60 09/09/18 20:30 74 22 108/63 (78) 96 09/09/18 20:15 73 23 95/60 (72) 95 09/09/18 20:07 87 09/09/18 20:07 Nasal Cannula 4.0 09/09/18 20:05 24 91/51 (64) 92 09/09/18 20:00 22 90/48 (62) 93 09/09/18 19:50 97.8 87 22 111/93 (99) 92 09/09/18 19:41 98.6 78 22 125/66 95 Nasal Cannula 4.0 09/09/18 19:09 99.0 93 26 123/68 95 Nasal Cannula 3.0 09/09/18 19:07 99.0 83 26 85/63 94 Nasal Cannula 3.0 09/09/18 18:40 85/60 09/09/18 17:48 93 40 Nasal Cannula 3.0 09/09/18 16:28 97.2 93 40 89/74 (79) 92 Non-Rebreather 15.0 Height (Feet): 5 Height (Inches): 5.00 Weight (Pounds): 117 General Appearance: no acute distress HEENT: normocephalic, atraumatic, anicteric, mucous membranes moist Respiratory/Chest: lungs clear, normal breath sounds, no respiratory distress, no accessory muscle use Cardiovascular: normal rate, regular rhythm, no gallop/murmur, no JVD Abdomen: normal bowel sounds, soft, non tender, no organomegaly, non distended Microbiology Date/Time Source Procedure Growth Status 09/09/18 17:10 Urine,Clean Catch Urine Culture - Preliminary NO GROWTH Resulted Laboratory Tests Test 09/09/18 16:30 09/09/18 16:40 09/09/18 17:10 09/09/18 17:23 White Blood Count 13.0 K/UL (4.8-10.8) H Red Blood Count 4.68 M/UL (4.70-6.10) L Hemoglobin 15.0 G/DL (14.2-18.0) Hematocrit 44.8 % (42.0-52.0) Mean Corpuscular Volume 96 FL (80-99) Mean Corpuscular Hemoglobin 32.0 PG (27.0-31.0) H Mean Corpuscular Hemoglobin Concent 33.5 G/DL (32.0-36.0) Red Cell Distribution Width 12.2 % (11.6-14.8) Platelet Count 269 K/UL (150-450) Mean Platelet Volume 8.5 FL (6.5-10.1) Neutrophils (%) (Auto) % (45.0-75.0) Lymphocytes (%) (Auto) % (20.0-45.0) Monocytes (%) (Auto) % (1.0-10.0) Eosinophils (%) (Auto) % (0.0-3.0) Basophils (%) (Auto) % (0.0-2.0) Differential Total Cells Counted 100 Neutrophils % (Manual) 78 % (45-75) H Lymphocytes % (Manual) 9 % (20-45) L Monocytes % (Manual) 2 % (1-10) Eosinophils % (Manual) 0 % (0-3) Basophils % (Manual) 0 % (0-2) Band Neutrophils 11 % (0-8) H Platelet Estimate Adequate Platelet Morphology Normal Red Blood Cell Morphology Normal Prothrombin Time 11.9 SEC (9.30-11.50) H Prothromb Time International Ratio 1.1 (0.9-1.1) Activated Partial Thromboplast Time 23 SEC (23-33) Sodium Level 162 MMOL/L (136-145) *H Potassium Level 5.1 MMOL/L (3.5-5.1) Chloride Level 120 MMOL/L (98-107) H Carbon Dioxide Level 23 MMOL/L (21-32) Anion Gap 19 mmol/L (5-15) H Blood Urea Nitrogen 152 mg/dL (7-18) H Creatinine 8.3 MG/DL (0.55-1.30) H Estimat Glomerular Filtration Rate mL/min (>60) Glucose Level 197 MG/DL (74-106) H Lactic Acid Level 3.30 mmol/L (0.4-2.0) H 2.80 mmol/L (0.66-2.22) H Calcium Level 9.9 MG/DL (8.5-10.1) Total Bilirubin 2.2 MG/DL (0.2-1.0) H Direct Bilirubin 1.2 MG/DL (0.0-0.3) H Aspartate Amino Transf (AST/SGOT) 123 U/L (15-37) H Alanine Aminotransferase (ALT/SGPT) 144 U/L (12-78) H Alkaline Phosphatase 170 U/L (46-116) H Total Creatine Kinase 3237 U/L (26-308) H Creatine Kinase MB 28.8 NG/ML (0.0-3.6) H Creatine Kinase MB Relative Index 0.8 Troponin I 0.050 ng/mL (0.000-0.056) Pro-B-Type Natriuretic Peptide 139 pg/mL (0-125) H Total Protein 8.6 G/DL (6.4-8.2) H Albumin 2.9 G/DL (3.4-5.0) L Globulin 5.7 g/dL Albumin/Globulin Ratio 0.5 (1.0-2.7) L Lipase 640 U/L (73-393) H Arterial Blood pH 7.430 (7.350-7.450) Arterial Blood Partial Pressure CO2 26.7 mmHg (35.0-45.0) L Arterial Blood Partial Pressure O2 70.4 mmHg (75.0-100.0) L Arterial Blood HCO3 17.4 mmol/L (22.0-26.0) *L Arterial Blood Oxygen Saturation 92.7 % (95-100) L Arterial Blood Base Excess -5.4 (-2-2) L Foreign Test Positive Urine Color Brown Urine Appearance Cloudy Urine pH 5 (4.5-8.0) Urine Specific Many 1.020 (1.005-1.035) Urine Protein 3+ (NEGATIVE) H Urine Glucose (UA) Negative (NEGATIVE) Urine Ketones 1+ (NEGATIVE) H Urine Blood 4+ (NEGATIVE) H Urine Nitrite Positive (NEGATIVE) H Urine Bilirubin 2+ (NEGATIVE) H Urine Ictotest Negative (NEGATIVE) Urine Urobilinogen 4 MG/DL (0.0-1.0) H Urine Leukocyte Esterase 3+ (NEGATIVE) H Urine RBC 5-10 /HPF (0 - 0) H Urine WBC 20-30 /HPF (0 - 0) H Urine Squamous Epithelial Cells Occasional /LPF Urine Bacteria Many /HPF (NONE) H Urine Fine Granular Casts 2-4 /LPF (NONE) H Urine Coarse Granular Casts 0-2 /LPF (NONE) H Test 09/10/18 00:10 09/10/18 01:40 09/10/18 05:17 09/10/18 06:00 Lactic Acid Level 2.40 mmol/L (0.4-2.0) H 2.50 mmol/L (0.66-2.22) H 2.80 mmol/L (0.4-2.0) H White Blood Count 8.4 K/UL (4.8-10.8) Red Blood Count 3.41 M/UL (4.70-6.10) L Hemoglobin 10.6 G/DL (14.2-18.0) L Hematocrit 32.4 % (42.0-52.0) L Mean Corpuscular Volume 95 FL (80-99) Mean Corpuscular Hemoglobin 31.2 PG (27.0-31.0) H Mean Corpuscular Hemoglobin Concent 32.8 G/DL (32.0-36.0) Red Cell Distribution Width 12.7 % (11.6-14.8) Platelet Count 174 K/UL (150-450) Mean Platelet Volume 9.9 FL (6.5-10.1) Neutrophils (%) (Auto) % (45.0-75.0) Lymphocytes (%) (Auto) % (20.0-45.0) Monocytes (%) (Auto) % (1.0-10.0) Eosinophils (%) (Auto) % (0.0-3.0) Basophils (%) (Auto) % (0.0-2.0) Sodium Level 162 MMOL/L (136-145) *H Potassium Level 3.6 MMOL/L (3.5-5.1) Chloride Level 130 MMOL/L (98-107) H Carbon Dioxide Level 18 MMOL/L (21-32) L Anion Gap 17 mmol/L (5-15) H Blood Urea Nitrogen 114 mg/dL (7-18) H Creatinine 4.7 MG/DL (0.55-1.30) H Estimat Glomerular Filtration Rate mL/min (>60) Glucose Level 203 MG/DL (74-106) H Hemoglobin A1c 6.3 % (4.3-6.0) H Uric Acid 9.5 MG/DL (2.6-7.2) H Calcium Level 8.3 MG/DL (8.5-10.1) L Phosphorus Level 3.7 MG/DL (2.5-4.9) Magnesium Level 2.9 MG/DL (1.8-2.4) H Total Bilirubin 1.6 MG/DL (0.2-1.0) H Direct Bilirubin 0.9 MG/DL (0.0-0.3) H Gamma Glutamyl Transpeptidase 173 U/L (5-85) H Aspartate Amino Transf (AST/SGOT) 96 U/L (15-37) H Alanine Aminotransferase (ALT/SGPT) 90 U/L (12-78) H Alkaline Phosphatase 104 U/L (46-116) Ammonia 40 umol/L (11-32) H Total Creatine Kinase 3049 U/L (26-308) H C-Reactive Protein, Quantitative 27.2 mg/dL (0.00-0.90) H Pro-B-Type Natriuretic Peptide 377 pg/mL (0-125) H Total Protein 6.3 G/DL (6.4-8.2) L Albumin 2.4 G/DL (3.4-5.0) L Globulin 3.9 g/dL Albumin/Globulin Ratio 0.6 (1.0-2.7) L Triglycerides Level 168 MG/DL (30-150) H Cholesterol Level 145 MG/DL (< 200) LDL Cholesterol 90 mg/dL (<100) HDL Cholesterol 17 MG/DL (40-60) L Cholesterol/HDL Ratio 8.5 (3.3-4.4) H Vitamin B12 Level 1181 PG/ML (193-986) H Folate 12.4 NG/ML (8.6-58.9) Thyroid Stimulating Hormone (TSH) 1.203 uiU/mL (0.358-3.740) Urine Eosinophils None seen (NONE SEEN) Test 09/10/18 09:50 Lactic Acid Level 2.50 mmol/L (0.66-2.22) H Current Medications Medications (Trade) Dose Ordered Sig/Altagracia Route PRN Reason Start Time Stop Time Status Last Admin Dose Admin Acetaminophen (Tylenol) 1,000 mg Q6H PRN ORAL MILD PAIN/TEMP 09/10/18 15:10 10/10/18 15:09 Chlorhexidine Gluconate (Corazon-Hex 2%) 1 applic DAILY@2000 TOPIC 09/10/18 20:00 10/10/18 19:59 Dextrose 1,000 ml @ 125 mls/hr Q8H IV 09/10/18 07:50 10/10/18 07:49 09/10/18 08:33 Dextrose (Dextrose 50%) 25 ml Q30M PRN IV Hypoglycemia 09/10/18 10:45 10/10/18 10:44 Dextrose (Dextrose 50%) 50 ml Q30M PRN IV Hypoglycemia 09/10/18 10:45 10/10/18 10:44 Famotidine (Pepcid I.v.) 20 mg DAILY IVP 09/09/18 21:00 10/09/18 20:59 09/10/18 08:35 Heparin Sodium (Porcine) (Heparin 5000 units/ml) 5,000 units EVERY 12 HOURS SUBQ 09/09/18 21:00 10/09/18 20:59 09/10/18 09:30 Insulin Aspart (NovoLOG) Q5H SUBQ 09/10/18 12:00 10/10/18 11:59 Norepinephrine Bitartrate 4 mg/ Dextrose 250 ml @ 0 mls/hr Q24H IV 09/09/18 20:30 10/09/18 20:29 Piperacillin Sod/ Tazobactam Sod 3.375 gm/Sodium Chloride 110 ml @ 27.5 mls/hr EVERY 12 HOURS IVPB 09/10/18 09:00 09/15/18 08:59 09/10/18 08:33 Vancomycin HCl (Vanco rx to dose) 1 ea DAILY PRN MISC Per rx protocol 09/09/18 21:00 10/09/18 20:59 Bonny Rincon MD Sep 10, 2018 16:18
--- NOTE | 2018-09-10 16:29 | General Progress Note ---
Assessment/Plan Assessment/Plan: 72 year old male admitted for septic shock 2/2 pna vs uti Septic shock likley 2/2 PNA vs UTI -Cont Vanc, Zosyn -f/u blood cultures -Change dopamine to Levaquin - titrate to goal MAP >65 - titrated off - bp stable -Monitor respiratory status -s/p 3L NS -ID Consult appreciated -Pulm/Crit consult appreciated -surgery consult appreciated #BRYANT #Poss rhabdomyolysis -Likley 2/2 shock vs drug induced, CK elevated poss rhabdo -trend CK -nephrology consult appreciated -CTM -avoid nephrotoxic medications #Hypernatremia likley 2/2 poor PO intake -cont NS for fluid resus then transition to D5w -D5 started -CTM -Nephrology consult appreciated #dysphagia #Failure to thrive -consider nG tube placement -GI consult in AM #Full code Subjective Date patient seen: Sep 10, 2018 ROS Limited/Unobtainable: Yes Allergies: Coded Allergies: No Known Allergies (Unverified , 08/20/18) Subjective No acute overnight evetns, BP improved, pressors titrated off, NG tube placed, creatinine improved Objective Last 24 Hour Vital Signs Date Time Temp Pulse Resp B/P (MAP) Pulse Ox O2 Delivery O2 Flow Rate FiO2 09/10/18 15:00 71 19 88/56 (67) 97 09/10/18 14:00 72 18 112/62 (79) 98 09/10/18 13:00 70 19 103/62 (76) 99 09/10/18 12:30 68 19 111/57 (75) 99 09/10/18 12:00 99.3 66 20 117/66 (83) 100 09/10/18 12:00 65 09/10/18 12:00 Nasal Cannula 2.0 09/10/18 11:30 70 20 109/69 (82) 99 09/10/18 11:00 72 21 120/66 (84) 98 09/10/18 10:30 71 19 119/92 (101) 100 09/10/18 10:00 70 19 103/55 (71) 98 09/10/18 09:30 74 23 123/80 (94) 98 09/10/18 09:00 74 20 129/59 (82) 97 09/10/18 08:30 73 17 114/58 (76) 97 09/10/18 08:00 97.7 66 16 119/66 (83) 98 09/10/18 08:00 64 09/10/18 08:00 Nasal Cannula 2.0 09/10/18 07:00 66 20 108/61 (77) 98 09/10/18 06:00 68 20 121/72 (88) 98 09/10/18 05:00 64 20 119/57 (77) 98 09/10/18 04:00 65 09/10/18 04:00 64 18 113/59 (77) 99 09/10/18 04:00 Nasal Cannula 4.0 09/10/18 03:30 65 17 114/67 (83) 100 09/10/18 03:00 68 19 115/74 (88) 99 09/10/18 02:30 67 19 109/57 (74) 98 09/10/18 02:00 65 19 100/58 (72) 97 09/10/18 01:30 65 22 102/60 (74) 96 09/10/18 01:00 98.0 64 21 105/57 (73) 97 09/10/18 00:30 64 22 114/64 (81) 97 09/10/18 00:00 62 09/10/18 00:00 Nasal Cannula 4.0 09/10/18 00:00 62 20 98/59 (72) 99 09/09/18 23:30 63 20 107/62 (77) 98 09/09/18 23:00 64 21 100/56 (71) 99 09/09/18 22:30 66 22 114/54 (74) 99 09/09/18 22:00 65 24 100/55 (70) 98 09/09/18 21:45 70 26 112/51 (71) 98 09/09/18 21:30 69 19 92/67 (75) 97 09/09/18 21:15 70 22 100/70 (80) 97 09/09/18 21:00 71 22 90/62 (71) 97 09/09/18 20:45 73 23 97/56 (70) 96 09/09/18 20:30 94/60 09/09/18 20:30 74 22 108/63 (78) 96 09/09/18 20:15 73 23 95/60 (72) 95 09/09/18 20:07 87 09/09/18 20:07 Nasal Cannula 4.0 09/09/18 20:05 24 91/51 (64) 92 09/09/18 20:00 22 90/48 (62) 93 09/09/18 19:50 97.8 87 22 111/93 (99) 92 09/09/18 19:41 98.6 78 22 125/66 95 Nasal Cannula 4.0 09/09/18 19:09 99.0 93 26 123/68 95 Nasal Cannula 3.0 09/09/18 19:07 99.0 83 26 85/63 94 Nasal Cannula 3.0 09/09/18 18:40 85/60 09/09/18 17:48 93 40 Nasal Cannula 3.0 09/09/18 16:28 97.2 93 40 89/74 (79) 92 Non-Rebreather 15.0 Intake and Output 09/09/18 09/10/18 18:59 06:59 Intake Total 1250 ml 1350 ml Output Total 1330 ml Balance 1250 ml 20 ml Intake IV Total 1250 ml 1350 ml Output Urine Total 1330 ml Laboratory Tests 09/09/18 16:30: White Blood Count 13.0H, Red Blood Count 4.68L, Hemoglobin 15.0, Hematocrit 44.8 , Mean Corpuscular Volume 96, Mean Corpuscular Hemoglobin 32.0H, Mean Corpuscular Hemoglobin Concent 33.5, Red Cell Distribution Width 12.2, Platelet Count 269, Mean Platelet Volume 8.5, Neutrophils (%) (Auto) , Lymphocytes (%) ( Auto) , Monocytes (%) (Auto) , Eosinophils (%) (Auto) , Basophils (%) (Auto) , Differential Total Cells Counted 100, Neutrophils % (Manual) 78H, Lymphocytes % (Manual) 9L, Monocytes % (Manual) 2, Eosinophils % (Manual) 0, Basophils % ( Manual) 0, Band Neutrophils 11H, Platelet Estimate Adequate, Platelet Morphology Normal, Red Blood Cell Morphology Normal, Prothrombin Time 11.9H, Prothromb Time International Ratio 1.1, Activated Partial Thromboplast Time 23, Sodium Level 162*H, Potassium Level 5.1, Chloride Level 120H, Carbon Dioxide Level 23, Anion Gap 19H, Blood Urea Nitrogen 152H, Creatinine 8.3H, Estimat Glomerular Filtration Rate , Glucose Level 197H, Lactic Acid Level 3.30H, Calcium Level 9.9, Total Bilirubin 2.2H, Direct Bilirubin 1.2H, Aspartate Amino Transf (AST/SGOT) 123H, Alanine Aminotransferase (ALT/SGPT) 144H, Alkaline Phosphatase 170H, Total Creatine Kinase 3237H, Creatine Kinase MB 28.8H, Creatine Kinase MB Relative Index 0.8, Troponin I 0.050, Pro-B-Type Natriuretic Peptide 139H, Total Protein 8.6H, Albumin 2.9L, Globulin 5.7, Albumin/Globulin Ratio 0.5L, Lipase 640H 09/09/18 16:40: Arterial Blood pH 7.430, Arterial Blood Partial Pressure CO2 26.7L, Arterial Blood Partial Pressure O2 70.4L, Arterial Blood HCO3 17.4*L, Arterial Blood Oxygen Saturation 92.7L, Arterial Blood Base Excess -5.4L, Foerign Test Positive 09/09/18 17:10: Urine Color Brown, Urine Appearance Cloudy, Urine pH 5, Urine Specific Marydel 1.020, Urine Protein 3+H, Urine Glucose (UA) Negative, Urine Ketones 1+H, Urine Blood 4+H, Urine Nitrite PositiveH, Urine Bilirubin 2+H, Urine Ictotest Negative , Urine Urobilinogen 4H, Urine Leukocyte Esterase 3+H, Urine RBC 5-10H, Urine WBC 20-30H, Urine Squamous Epithelial Cells Occasional, Urine Bacteria ManyH, Urine Fine Granular Casts 2-4H, Urine Coarse Granular Casts 0-2H 09/09/18 17:23: Lactic Acid Level 2.80H 09/10/18 00:10: Lactic Acid Level 2.40H 09/10/18 01:40: Lactic Acid Level 2.50H 09/10/18 05:17: Lactic Acid Level 2.80H, White Blood Count 8.4, Red Blood Count 3.41L, Hemoglobin 10.6L, Hematocrit 32.4L, Mean Corpuscular Volume 95, Mean Corpuscular Hemoglobin 31.2H, Mean Corpuscular Hemoglobin Concent 32.8, Red Cell Distribution Width 12.7, Platelet Count 174, Mean Platelet Volume 9.9, Neutrophils (%) (Auto) , Lymphocytes (%) (Auto) , Monocytes (%) (Auto) , Eosinophils (%) (Auto) , Basophils (%) (Auto) , Sodium Level 162*H, Potassium Level 3.6, Chloride Level 130H, Carbon Dioxide Level 18L, Anion Gap 17H, Blood Urea Nitrogen 114H, Creatinine 4.7H, Estimat Glomerular Filtration Rate , Glucose Level 203H, Hemoglobin A1c 6.3H, Uric Acid 9.5H, Calcium Level 8.3L, Phosphorus Level 3.7, Magnesium Level 2.9H, Total Bilirubin 1.6H, Direct Bilirubin 0.9H, Gamma Glutamyl Transpeptidase 173H, Aspartate Amino Transf (AST/ SGOT) 96H, Alanine Aminotransferase (ALT/SGPT) 90H, Alkaline Phosphatase 104, Ammonia 40H, Total Creatine Kinase 3049H, C-Reactive Protein, Quantitative 27.2H , Pro-B-Type Natriuretic Peptide 377H, Total Protein 6.3L, Albumin 2.4L, Globulin 3.9, Albumin/Globulin Ratio 0.6L, Triglycerides Level 168H, Cholesterol Level 145, LDL Cholesterol 90, HDL Cholesterol 17L, Cholesterol/HDL Ratio 8.5H, Vitamin B12 Level 1181H, Folate 12.4, Thyroid Stimulating Hormone ( TSH) 1.203 09/10/18 06:00: Urine Eosinophils None seen 09/10/18 09:50: Lactic Acid Level 2.50H Height (Feet): 5 Height (Inches): 5.00 Weight (Pounds): 117 Objective General Appearance: WD/WN, lethargic, confused Lines, tubes and drains: peripheral, central line HEENT: normocephalic, atraumatic, ng tube in place Neck: non-tender Respiratory/Chest: chest wall non-tender, no accessory muscle use Cardiovascular/Chest: normal peripheral pulses Abdomen: normal bowel sounds, non tender Neurologic: disoriented Kimberlyn Bonner MD Sep 10, 2018 16:29
--- NOTE | 2018-09-10 18:35 | NUR ---
NURSE NOTES: SPOKE WITH DAUGHTER ON PHONE. GIVEN UPDATE ON STATUS. WILL BE IN TO SEE TONFLORENCIO OR IN AM. 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
--- NOTE | 2018-09-10 19:05 | NUR ---
HAND-OFF: Report given to Jennifer CURRY. pt in no acute distress.
--- NOTE | 2018-09-10 19:06 | NUR ---
NURSE NOTES: Endorsement received from ANTOINETTE Silva. Patient opens eyes spontaneously, moans to pain. Sinus rhythm on the monitor. On 2LPM oxygen per nasal cannula. NGT at left nare, placement rechecked per auscultation. NPO. Manriquez catheter F 16 connected to urimeter. Dark malachi. With right femoral TLC. No resistance when flushed. Right wrist g 20, left forearm g 22 both heplock. On D5W 125ml/hr. Head of bed elevated. Bed locked and in low position. Bed alarm on. Call light within reach.
[2018-09-10] MEDS: Dyna-Hex 2% Top Sol 2oz TOPIC SCH (19:53)
[2018-09-10] MEDS ORDERED: TYLENOL650 MG RC (20:14)
[2018-09-10] MEDS ORDERED: VITAMIN B-1100 MG ORAL (20:14)
--- NOTE | 2018-09-10 20:30 | Consultation ---
DATE OF CONSULTATION: 09/10/2018 PULMONARY AND CRITICAL CARE CONSULTATION CONSULTING PHYSICIAN: Alexandr Feliciano M.D. REFERRING PHYSICIAN: Kimberlyn Bailon MD. HISTORY OF PRESENT ILLNESS: The patient is a nonverbal male, brought in by a nursing facility with shortness of breath. Upon arrival to the ER, the patient was hypotensive with increased work of breathing. A triple-lumen catheter was placed in the groin and the patient was started on pressors. Overnight, T-max is 97.2, heart rate is stable. The patient is saturating well on 4 L of O2. The patient has been weaned off of pressors. I's and O's, +1.2 liters. On admission, white count was 13 and now it is 8.4, hemoglobin 15 and now 10. Blood gas 7.42/26/70/17/92. INR 1.1. Sodium 162 on admission, repeat is still pending. Creatinine was 8.3, has dropped to 4.7. Anion gap 19 on admission, now 17. Bicarbonate 23 on admission, now 18. The patient also has direct bilirubinemia with abnormal transaminases, elevated CK, and inflammatory markers. Urinalysis was positive. Cultures so far have not grown anything. Chest x-ray in the emergency department reviewed by myself showed no consolidation or other abnormalities. The patient is being treated for septic shock from UTI and possible pneumonia with Zosyn and vancomycin. He has been seen by ID and Renal and he is getting IV fluid hydration. PAST MEDICAL HISTORY: prison resident, dementia with prior cellulitis, generalized weakness, and hypertension. PAST SURGICAL HISTORY: Unknown. ALLERGIES: No known drug allergies. MEDICATIONS: At home, acetaminophen, Celebrex, vitamin D, Pepcid, lisinopril, Risperdal, thiamine, tramadol, and trazodone. SOCIAL HISTORY: Unobtainable. FAMILY HISTORY: Unobtainable. REVIEW OF SYSTEMS: Unobtainable. PHYSICAL EXAMINATION: VITAL SIGNS: Temperature-max 98, heart rate 64, blood pressure , respiratory rate 20, and saturating 98% on 4 L. GENERAL: He is a demented, nonverbal male, in no acute distress, awake. HEENT: Normocephalic and atraumatic. Oropharynx is clear. NECK: Supple without lymphadenopathy or JVD. CHEST: Clear. HEART: Regular. ABDOMEN: Benign. Right groin femoral line is noted. EXTREMITIES: No cyanosis, clubbing, or edema. ANCILLARY DATA: White count 8.4, hemoglobin 10.6, and platelet count 174,000. ABG 7.43/26/70/17/92. INR 1.1. Sodium 160, potassium 3.2, chloride 130, bicarbonate 18, gap 17, BUN 114, creatinine 4.7, glucose 203. Hemoglobin A1c 6.3. Lactic acid 2.8. Uric acid 9.5, calcium 8.3, magnesium 2.9, total bilirubin 1.6, direct bilirubin 0.9. CK 3049. CRP 27. Total protein 6.3, albumin 2.4. Chest x-ray, no acute findings. Urinalysis positive, culture is pending. ASSESSMENT: The patient is a 72-year-old male, longterm resident, with underlying history of dementia, presenting with septic shock, likely secondary to urinary source with BRYANT, lactic acidosis, anion gap acidosis, and abnormal LFTs. PROBLEM LIST: 1. Septic shock. 2. UTI with urosepsis. 3. BRYANT. 4. Anion-gap metabolic acidosis. 5. Lactic acidosis. 6. Abnormal LFTs, likely shock liver. 7. Hypertension. 8. Diabetes. 9. Dementia. 10. Anemia. TREATMENT PLAN: 1. Continue ICU care. 2. IV fluid hydration. 3. Pressors p.r.n. 4. Antibiotics, vancomycin and Zosyn, today is day #2 per ID. 5. Monitor electrolytes and renal function. 6. Monitor lactic acid. 7. DVT prophylaxis, heparin subcu. 8. The patient is Full Code. 9. Monitor LFTs. 10. Continue to discuss goals of care. Dr. Bailon, thank you for allowing us to assist in the care of your patient. If we may be of any assistance in the future, please do not hesitate to ask. Alexandr Feliciano M.D. DR: ANGUS JOB#: [id number] CC:
--- NOTE | 2018-09-10 22:00 | NUR ---
NURSE NOTES: Blood sugar checked, within normal limits. Vital signs stable.
[2018-09-11] VITALS (23 sets, daily range): BP systolic 94–148; BP diastolic 47–76
--- NOTE | 2018-09-11 | NUR ---
NURSE NOTES: Patient with eyes closed. Appears comfortable. Continues on 2LPM oxygen. No shortness of breath.
--- NOTE | 2018-09-11 01:15 | Consultation ---
DATE OF CONSULTATION: 09/10/2018 INFECTIOUS DISEASE CONSULTATION CONSULTING PHYSICIAN: Bonny Rincon M.D. ATTENDING PHYSICIAN: Darion Hyatt M.D. REFERRING PHYSICIAN: Kimberlyn Connolly M.D. REASON FOR CONSULTATION: Sepsis, shock, pneumonia, urinary tract infection, and leukocytosis. CHIEF COMPLAINT: The patient's chief complaint coming in to the hospital is sepsis, shock, pneumonia, and urinary tract infection. HISTORY OF PRESENT ILLNESS: This is a 72-year-old male, who comes in to [facility], was in septic shock requiring pressors. I saw the patient last night and today, he is off pressors. The patient had leukocytosis and also had altered mental status. Also, SIRS criteria. For this sepsis and shock, Infectious Disease consultation is requested. The patient had a white count of 13,000 on admission. The patient was placed on vancomycin and Zosyn. Cultures are pending. Chest x-ray shows findings concerning with pneumonia and he seems to be at high risk for aspiration pneumonia, but he does come from the [facility]. Urine analysis is also positive and he could have a urinary tract infection. The patient will be continued on vancomycin and Zosyn for right now. Case was discussed with Dr. Kimberlyn Connolly and the RN. PAST MEDICAL HISTORY: The patient's past medical history includes the following. The patient has a past medical history of poor dentition. He has history of hypokalemia, history of dementia and weakness. He has history of neurological disease. The patient has a past medical history also of anemia and other past medical history of contractures, dysphagia, aspiration risk, depression, pre-glaucoma, altered mental status, and wounds. No history of diabetes or hypertension mentioned. Other past medical history is difficulty feeding, dysphagia, oropharyngeal phase. MEDICATIONS: Upon reviewing the MAR, he is on following medications. He is on chlorhexidine washes, Tylenol, NovoLog, insulin, Zosyn, famotidine, heparin, and vancomycin. He is on norepinephrine, which has been discontinued. Antibiotics, vancomycin and Zosyn. Outside medications were noted and reconciliated. ALLERGIES: No known drug allergies. No antibiotic allergies. SOCIAL HISTORY: Negative for smoking, alcohol, or drug abuse. FAMILY HISTORY: Noncontributory. There is no mention of exposure to tuberculosis or cancer. REVIEW OF SYSTEMS: CONSTITUTIONAL: He has a femoral line. He has a Manriquez. He is mostly nonverbal. HEAD AND NECK: He states he does have poor dentition. CARDIAC: He was on pressors yesterday, but currently no pressors. GASTROINTESTINAL: No nausea, vomiting, or diarrhea. GENITOURINARY: He has a Manriquez. PULMONARY: Mild cough and congestion noted. He does have some secretions. SKIN: No rash. EXTREMITIES: No extremity pain. NEUROLOGIC: No seizures. Generalized fatigue and weakness. No fevers currently. Review of systems is otherwise limited. PHYSICAL EXAMINATION: Temperature is 99.3, pulse rate 70, respiratory rate 19, blood pressure 103/62, and saturation 99%. GENERAL: Weak. Opens his eyes occasionally. HEAD AND NECK: Oral, he has got poor dentition. No thrush. Eyes exam, no icterus. Normocephalic. Neck is supple. No jugular venous distention. LUNGS: Bilateral rhonchi and rales. HEART: Regular. No obvious gallop or murmur. No friction rub. ABDOMEN: Soft. Positive bowel sounds. Nontender. SKIN: No rash. MUSCULOSKELETAL: No effusion. Legs are without cellulitis. PERIPHERAL VASCULAR: No cyanosis. No gangrene. GENITOURINARY: He has a Manriquez. Urine is slightly cloudy. LINE SITES: Without phlebitis. NEUROLOGIC: Generalized weakness and poorly responsive. He has got poor dentition. Opens his eyes occasionally. His wounds on physical exam were reviewed. LABORATORY DATA: Laboratory data is as follows. UA had 3+ leukocyte esterase and 20 to 30 white blood cells. Urine culture so far is negative. White count on admission was 13.0 and hemoglobin 15.0. White count now is 8.4 and hemoglobin 10.6 and creatinine is 4.7, it was 8.3. CULTURES: Urine culture is negative. Sputum and blood cultures are pending. Sodium was initially 162. IMAGING STUDIES: Chest x-ray shows the following, which showed patchy opacity in the left lung and the left lower lobe concerning for pneumonia and improved aeration on the left also. Improved atelectasis, but there is persistent patchy opacity in the left mid lung, lower lung concerning for pneumonia. ASSESSMENT AND PLAN: 1. The patient has sepsis shock with low blood pressure requiring pressors. The patient has leukocytosis, SIRS criteria. Heart rate over 90. The patient also had altered mental status and elevated respiratory rate over 20, it was as high as 40 on admission. At this time, we will continue vancomycin and Zosyn for MRSA and gram-negative coverage. Continue vancomycin and Zosyn for sepsis and shock. The patient also looks like he has pneumonia and he is at high risk for aspiration and healthcare-acquired pneumonia in addition to community-acquired pneumonia, more so aspiration and healthcare-acquired pneumonia. The patient also has possible urinary tract infection with positive UA. The patient also has severe sepsis with acute renal failure and altered mental status including septic shock. At this time, we will continue vancomycin and Zosyn. Check cultures, laboratories, and chest x-ray. The patient's septic shock has improved. Followup chest x-ray for the pneumonia and check final urine culture for possible urinary tract infection. 2. Intensive care unit care and supportive measures. 3. Anemia. 4. Hyperlipidemia. 5. Acute kidney injury. 6. Multiple wounds were noted. Skin care per Surgery and protocol. 7. The patient has history of dementia. 8. History of dysphagia. 9. Aspiration risk. 10. Contractures. 11. Weakness. 12. Dementia. 13. Pre-glaucoma. 14. Depression. 15. Continue treatment per primary consultants. 16. No known allergies. 17. Social history is negative. 18. Family history is noncontributory. 19. MAR was noted. 20. Case was discussed with RN. 21. Case was discussed with Dr. Connolly. Bonny Rincon M.D. DR: DEISY JOB#: [id number] CC:
--- NOTE | 2018-09-11 02:00 | NUR ---
NURSE NOTES: Patient [periodically wakes up then goes back to sleep. Blood pressure maintained without any pressors. No acute changes.
[2018-09-11] MEDS: NovoLOG Insulin Flexpen SUBQ SCH ×5 (03:15→23:21)
--- NOTE | 2018-09-11 04:00 | NUR ---
NURSE NOTES: Oral care, bed bath, change of linens done. Patient passed formed brown stool
--- NOTE | 2018-09-11 05:00 | NUR ---
NURSE NOTES: Urine collected foe eosinophil urine. All other blood samples drawn and sent to the lab.
[2018-09-11 06:25] LABS: HEMATOCRIT 30.3 % (42.0-52.0); HEMOGLOBIN 9.8 G/DL (14.2-18.0); MEAN CORPUSCULAR VOLUME 97 FL (80-99); PLATELET COUNT 166 K/UL (150-450); RED BLOOD COUNT 3.12 M/UL (4.70-6.10); RED CELL DISTRIBUTION WIDTH 12.5 % (11.6-14.8); WHITE BLOOD COUNT 10.2 K/UL (4.8-10.8)
--- NOTE | 2018-09-11 06:52 | NUR ---
NURSE NOTES: MRSA nares (+), called Dr. Torres. Left a message, awaiting for return call.
[2018-09-11 06:57] LABS: % IRON SATURATION 21 % (15-50); IRON 20 ug/dL (50-175); TOTAL IRON BINDING CAPACITY 95 ug/dL (250-450)
[2018-09-11 07:22] LABS: ALANINE AMINOTRANSFERASE 79 U/L (12-78); ALBUMIN 2.4 G/DL (3.4-5.0); ALBUMIN/GLOBULIN RATIO 0.6 (1.0-2.7); ALKALINE PHOSPHATASE 95 U/L (46-116); ANION GAP 15 mmol/L (5-15); ASPARTATE AMINO TRANSFERASE 92 U/L (15-37); BILIRUBIN,TOTAL 1.4 MG/DL (0.2-1.0); BLOOD UREA NITROGEN 57 mg/dL (7-18); CALCIUM 8.7 MG/DL (8.5-10.1); CARBON DIOXIDE 18 MMOL/L (21-32); CHLORIDE 126 MMOL/L (98-107); CREATININE 2.3 MG/DL (0.55-1.30); FERRITIN 1119 NG/ML (8-388); SODIUM 158 MMOL/L (136-145)
[2018-09-11 07:25] LABS: BILIRUBIN,DIRECT 0.5 MG/DL (0.0-0.3)
--- NOTE | 2018-09-11 07:32 | NUR ---
HAND-OFF: Report given to ANTOINETTE Sanon.
--- NOTE | 2018-09-11 07:33 | NUR ---
NURSE NOTES: RECEIVED PATIENT FROM Sergio EAST RN. PATIENT IS LYING IN BED ASLEEP BUT EASILY AROUSABLE. HOOKED TO LOCK TENDER. ON 2L NC. NO SIGNS OF DISTRESS. WITH NGT ON L NARES. ON NPO. NOTED ROTHMAN CONNECTED TO BAG, PATENT AND DRAINING URINE. WITH R FEMORAL TLC, IVS ON R W G20 AND R FA G22 WITH IVF RUNNING D5 W AT 125ML/HR. CALL LIGHT WITHIN REACH. BED AT LOWEST POSITION. SIDE RAILS UP. WILL CONTINUE OT MONITOR.
[2018-09-11 07:44] LABS: CREATINE KINASE 2362 U/L (26-308); GAMMA GLUTAMYL TRANSPEPTIDASE 128 U/L (5-85); PHOSPHORUS 2.6 MG/DL (2.5-4.9)
[2018-09-11] MEDS: Piperacillin/Tazobactam 3.375 GM in NS 110 ML IVPB SCH ×2 (08:54→21:25)
[2018-09-11] MEDS: Heparin 5000 units/ml inj SUBQ SCH ×2 (08:56→21:30)
[2018-09-11] MEDS ORDERED: Vancomycin 1.25gm Premix IVPB ONE (09:00)
--- NOTE | 2018-09-11 10:00 | NUR ---
NURSE NOTES: SEEN AND EXAMINED BY DR GIBSON WITH ORDER TO START FEEDING. NO SIGNS OF DISTRESS. WILL CONTINUE TO MONITOR.
--- NOTE | 2018-09-11 10:00 | Nephrology Progress Note ---
Assessment/Plan Problem List: (1) BRYANT (acute kidney injury) (2) Rhabdomyolysis (3) Septic shock (4) Failure to thrive syndrome, adult (5) Pneumonia Assessment Acute Renal Failure: ? Drug induced Was on Lisinopril and Celebrex Rhabdo: High CPK Dehydration Shock Sepsis / Pneumonia / UTI Malnutrition Plan Hydrate with D5 start NGT feeding SS Insulin off pressors antibiotics monitor renal parameters per orders Subjective ROS Limited/Unobtainable: Yes Objective Objective Last 24 Hour Vital Signs Date Time Temp Pulse Resp B/P (MAP) Pulse Ox O2 Delivery O2 Flow Rate FiO2 09/11/18 08:00 98.5 70 16 146/76 (99) 98 09/11/18 06:00 71 21 114/57 (76) 99 09/11/18 05:00 73 21 108/54 (72) 99 09/11/18 04:00 98.5 70 22 125/67 (86) 99 09/11/18 04:00 74 09/11/18 04:00 Nasal Cannula 2.0 09/11/18 03:00 70 22 118/58 (78) 99 09/11/18 02:00 79 19 125/62 (83) 99 09/11/18 01:00 67 19 118/69 (85) 99 09/11/18 00:00 Nasal Cannula 2.0 09/11/18 00:00 99.3 63 19 129/56 (80) 99 09/11/18 00:00 60 09/10/18 23:00 63 19 114/52 (72) 99 09/10/18 22:00 66 20 103/55 (71) 99 09/10/18 21:00 69 23 103/52 (69) 97 09/10/18 20:30 103/52 09/10/18 20:00 98.6 73 20 101/51 (68) 97 09/10/18 20:00 Nasal Cannula 2.0 09/10/18 20:00 73 09/10/18 19:00 76 22 118/58 (78) 98 09/10/18 18:00 88 24 108/65 (79) 96 09/10/18 17:00 75 19 115/58 (77) 97 09/10/18 16:00 86 09/10/18 16:00 100.1 88 19 122/59 (80) 97 09/10/18 16:00 Nasal Cannula 2.0 09/10/18 15:00 71 19 88/56 (67) 97 09/10/18 14:00 72 18 112/62 (79) 98 09/10/18 13:00 70 19 103/62 (76) 99 09/10/18 12:30 68 19 111/57 (75) 99 09/10/18 12:00 99.3 66 20 117/66 (83) 100 09/10/18 12:00 65 09/10/18 12:00 Nasal Cannula 2.0 09/10/18 11:30 70 20 109/69 (82) 99 09/10/18 11:00 72 21 120/66 (84) 98 09/10/18 10:30 71 19 119/92 (101) 100 09/10/18 10:00 70 19 103/55 (71) 98 Intake and Output 09/10/18 09/11/18 19:00 07:00 Intake Total 1341.25 ml 1250 ml Output Total 635 ml 825 ml Balance 706.25 ml 425 ml Intake Free Water 30 ml IV Total 1311.25 ml 1250 ml Output Urine Total 635 ml 825 ml # Bowel Movements 1 1 Laboratory Tests 09/10/18 19:45: Lactic Acid Level 2.00 09/11/18 04:30: Lactic Acid Level 1.80 09/11/18 05:00: White Blood Count 10.2, Red Blood Count 3.12L, Hemoglobin 9.8L, Hematocrit 30.3L , Mean Corpuscular Volume 97, Mean Corpuscular Hemoglobin 31.3H, Mean Corpuscular Hemoglobin Concent 32.3, Red Cell Distribution Width 12.5, Platelet Count 166, Mean Platelet Volume 9.7, Neutrophils (%) (Auto) , Lymphocytes (%) ( Auto) , Monocytes (%) (Auto) , Eosinophils (%) (Auto) , Basophils (%) (Auto) , Differential Total Cells Counted 100, Neutrophils % (Manual) 70, Lymphocytes % ( Manual) 11L, Monocytes % (Manual) 3, Eosinophils % (Manual) 1, Basophils % ( Manual) 0, Band Neutrophils 15H, Platelet Estimate Adequate, Platelet Morphology Normal, Leif Cells Occasional, Urine Eosinophils None seen, Sodium Level 158H, Potassium Level 3.0L, Chloride Level 126H, Carbon Dioxide Level 18L , Anion Gap 15, Blood Urea Nitrogen 57H, Creatinine 2.3#H, Estimat Glomerular Filtration Rate , Glucose Level 101#, Uric Acid 5.2, Calcium Level 8.7, Phosphorus Level 2.6, Magnesium Level 2.3, Iron Level 20L, Total Iron Binding Capacity 95L, Percent Iron Saturation 21, Unsaturated Iron Binding 75L, Ferritin 1119H, Total Bilirubin 1.4H, Direct Bilirubin 0.5H, Gamma Glutamyl Transpeptidase 128H, Aspartate Amino Transf (AST/SGOT) 92H, Alanine Aminotransferase (ALT/SGPT) 79H, Alkaline Phosphatase 95, Total Creatine Kinase 2362H, C-Reactive Protein, Quantitative 41.2H, Pro-B-Type Natriuretic Peptide 1164H, Total Protein 6.2L, Albumin 2.4L, Globulin 3.8, Albumin/Globulin Ratio 0.6L, Random Vancomycin Level 5.4 Height (Feet): 5 Height (Inches): 5.00 Weight (Pounds): 112 General Appearance: no apparent distress EENT: other - has NGT Cardiovascular: normal rate Respiratory/Chest: decreased breath sounds Abdomen: distended Minh Phipps MD Sep 11, 2018 10:00
--- NOTE | 2018-09-11 12:26 | NUR ---
NURSE NOTES: TYLENOL WAS GIVEN. BARCODE NOT SCANNING. [facility] # [id number].
--- NOTE | 2018-09-11 13:55 | Pulmonolgy Critical Care Note ---
Critical Care - Asmt/Plan Assessment/Plan: PULMONARY AND CRITICAL CARE CONSULTATION CONSULTING PHYSICIAN: Alexandr Feliciano M.D. REFERRING PHYSICIAN: Kimberlyn Bailon MD. HISTORY OF PRESENT ILLNESS: The patient is a nonverbal male, brought in by a nursing facility with shortness of breath. Upon arrival to the ER, the patient was hypotensive with increased work of breathing. A triple-lumen catheter was placed in the groin and the patient was started on pressors. Overnight, T-max is 97.2, heart rate is stable. The patient is saturating well on 4 L of O2. The patient has been weaned off of pressors. I's and O's, +1.2 liters. On admission, white count was 13 and now it is 8.4, hemoglobin 15 and now 10. Blood gas 7.42/26/70/17/92. INR 1.1. Sodium 162 on admission, repeat is still pending. Creatinine was 8.3, has dropped to 4.7. Anion gap 19 on admission, now 17. Bicarbonate 23 on admission, now 18. The patient also has direct bilirubinemia with abnormal transaminases, elevated CK, and inflammatory markers. Urinalysis was positive. Cultures so far have not grown anything. Chest x-ray in the emergency department reviewed by myself showed no consolidation or other abnormalities. The patient is being treated for septic shock from UTI and possible pneumonia with Zosyn and vancomycin. He has been seen by ID and Renal and he is getting IV fluid hydration. PAST MEDICAL HISTORY: [facility] resident, dementia with prior cellulitis, generalized weakness, and hypertension. PAST SURGICAL HISTORY: Unknown. ALLERGIES: No known drug allergies. MEDICATIONS: At home, acetaminophen, Celebrex, vitamin D, Pepcid, lisinopril, Risperdal, thiamine, tramadol, and trazodone. SOCIAL HISTORY: Unobtainable. FAMILY HISTORY: Unobtainable. REVIEW OF SYSTEMS: Unobtainable. PHYSICAL EXAMINATION: VITAL SIGNS: Temperature-max 98, heart rate 64, blood pressure , respiratory rate 20, and saturating 98% on 4 L. GENERAL: He is a demented, nonverbal male, in no acute distress, awake. HEENT: Normocephalic and atraumatic. Oropharynx is clear. NECK: Supple without lymphadenopathy or JVD. CHEST: Clear. HEART: Regular. ABDOMEN: Benign. Right groin femoral line is noted. EXTREMITIES: No cyanosis, clubbing, or edema. ANCILLARY DATA: White count 8.4, hemoglobin 10.6, and platelet count 174,000. ABG 7.43/26/70/17/92. INR 1.1. Sodium 160, potassium 3.2, chloride 130, bicarbonate 18, gap 17, BUN 114, creatinine 4.7, glucose 203. Hemoglobin A1c 6.3. Lactic acid 2.8. Uric acid 9.5, calcium 8.3, magnesium 2.9, total bilirubin 1.6, direct bilirubin 0.9. CK 3049. CRP 27. Total protein 6.3, albumin 2.4. Chest x-ray, no acute findings. Urinalysis positive, culture is pending. ASSESSMENT: The patient is a 72-year-old male, shelter resident, with underlying history of dementia, presenting with septic shock, pneumonia on CXR, additional urinary source with BRYANT, rhabdomyolysis, lactic acidosis, anion gap acidosis, and abnormal LFTs. PROBLEM LIST: 1. Septic shock. Pneumonia, improving left atelectasis on CXR 2. UTI with urosepsis. 3. BRYANT. 4. Anion-gap metabolic acidosis. 5. Lactic acidosis. 6. Abnormal LFTs, likely shock liver. 7. Hypertension. 8. Diabetes. 9. Dementia. 10. Anemia. TREATMENT PLAN: 1. Continue ICU care. 2. IV fluid hydration. 3. Pressors p.r.n. 4. Antibiotics, vancomycin and Zosyn, today is day #3 per ID. 5. Monitor electrolytes and renal function. 6. Monitor lactic acid. 7. DVT prophylaxis, heparin subcu. 8. The patient is Full Code. 9. Monitor LFTs. 10. Continue to discuss goals of care. 11. NC O2 Critical Care - Objective Last 24 Hour Vital Signs Date Time Temp Pulse Resp B/P (MAP) Pulse Ox O2 Delivery O2 Flow Rate FiO2 09/11/18 13:00 84 15 125/70 (88) 100 09/11/18 12:00 100.2 82 16 118/64 (82) 100 09/11/18 11:00 72 19 114/58 (76) 98 09/11/18 10:00 78 16 137/54 (81) 99 09/11/18 09:00 70 16 145/58 (87) 99 09/11/18 08:00 98.5 70 16 146/76 (99) 98 09/11/18 08:00 Nasal Cannula 2.0 09/11/18 06:00 71 21 114/57 (76) 99 09/11/18 05:00 73 21 108/54 (72) 99 09/11/18 04:00 98.5 70 22 125/67 (86) 99 09/11/18 04:00 74 09/11/18 04:00 Nasal Cannula 2.0 09/11/18 03:00 70 22 118/58 (78) 99 09/11/18 02:00 79 19 125/62 (83) 99 09/11/18 01:00 67 19 118/69 (85) 99 09/11/18 00:00 Nasal Cannula 2.0 09/11/18 00:00 99.3 63 19 129/56 (80) 99 09/11/18 00:00 60 09/10/18 23:00 63 19 114/52 (72) 99 09/10/18 22:00 66 20 103/55 (71) 99 09/10/18 21:00 69 23 103/52 (69) 97 09/10/18 20:30 103/52 09/10/18 20:00 98.6 73 20 101/51 (68) 97 09/10/18 20:00 Nasal Cannula 2.0 09/10/18 20:00 73 09/10/18 19:00 76 22 118/58 (78) 98 09/10/18 18:00 88 24 108/65 (79) 96 09/10/18 17:00 75 19 115/58 (77) 97 09/10/18 16:00 86 09/10/18 16:00 100.1 88 19 122/59 (80) 97 09/10/18 16:00 Nasal Cannula 2.0 09/10/18 15:00 71 19 88/56 (67) 97 09/10/18 14:00 72 18 112/62 (79) 98 Micro: Microbiology Date/Time Source Procedure Growth Status 09/09/18 16:40 Blood Blood Culture - Preliminary NO GROWTH AFTER 24 HOURS Resulted 09/09/18 16:30 Blood Blood Culture - Preliminary NO GROWTH AFTER 24 HOURS Resulted 09/10/18 16:25 Sputum Induced Gram Stain - Final Resulted 09/10/18 16:25 Sputum Induced Sputum Culture Pending Resulted 09/09/18 16:30 Nasal Nares MRSA Culture - Final Staphylococcus Aureus - Mrsa Complete 09/09/18 17:10 Urine,Clean Catch Urine Culture - Final Complete 09/09/18 16:30 Rectum VRE Culture - Final NO VANCOMYCIN RESISTANT ENTEROCOCCUS ... Complete 09/09/18 16:30 Rectum - Final NO CARBAPENEM-RESISTANT ENTEROBACTERI... Complete Accucheck: 125 Critical Care - Subjective ROS Limited/Unobtainable: No Condition: stable Tube Feeding Amount: 10 I&O: Intake and Output 09/10/18 09/11/18 18:59 06:59 Intake Total 1366.25 ml 1375 ml Output Total 640 ml 850 ml Balance 726.25 ml 525 ml Intake Free Water 30 ml IV Total 1336.25 ml 1375 ml Output Urine Total 640 ml 850 ml # Bowel Movements 1 1 Elijah Isaac MD Sep 11, 2018 13:55
--- NOTE | 2018-09-11 14:02 | Surgery Progress Note ---
Surgery Progress Note Objective Last 24 Hour Vital Signs Date Time Temp Pulse Resp B/P (MAP) Pulse Ox O2 Delivery O2 Flow Rate FiO2 09/11/18 13:00 84 15 125/70 (88) 100 09/11/18 12:00 100.2 82 16 118/64 (82) 100 09/11/18 11:00 72 19 114/58 (76) 98 09/11/18 10:00 78 16 137/54 (81) 99 09/11/18 09:00 70 16 145/58 (87) 99 09/11/18 08:00 98.5 70 16 146/76 (99) 98 09/11/18 08:00 Nasal Cannula 2.0 09/11/18 06:00 71 21 114/57 (76) 99 09/11/18 05:00 73 21 108/54 (72) 99 09/11/18 04:00 98.5 70 22 125/67 (86) 99 09/11/18 04:00 74 09/11/18 04:00 Nasal Cannula 2.0 09/11/18 03:00 70 22 118/58 (78) 99 09/11/18 02:00 79 19 125/62 (83) 99 09/11/18 01:00 67 19 118/69 (85) 99 09/11/18 00:00 Nasal Cannula 2.0 09/11/18 00:00 99.3 63 19 129/56 (80) 99 09/11/18 00:00 60 09/10/18 23:00 63 19 114/52 (72) 99 09/10/18 22:00 66 20 103/55 (71) 99 09/10/18 21:00 69 23 103/52 (69) 97 09/10/18 20:30 103/52 09/10/18 20:00 98.6 73 20 101/51 (68) 97 09/10/18 20:00 Nasal Cannula 2.0 09/10/18 20:00 73 09/10/18 19:00 76 22 118/58 (78) 98 09/10/18 18:00 88 24 108/65 (79) 96 09/10/18 17:00 75 19 115/58 (77) 97 09/10/18 16:00 86 09/10/18 16:00 100.1 88 19 122/59 (80) 97 09/10/18 16:00 Nasal Cannula 2.0 09/10/18 15:00 71 19 88/56 (67) 97 I&O Intake and Output 09/10/18 09/11/18 18:59 06:59 Intake Total 1366.25 ml 1375 ml Output Total 640 ml 850 ml Balance 726.25 ml 525 ml Intake Free Water 30 ml IV Total 1336.25 ml 1375 ml Output Urine Total 640 ml 850 ml # Bowel Movements 1 1 Dressing: saturated Wound: clean Drains: other Cardiovascular: RSR Respiratory: decreased breath sounds Abdomen: soft, non-distended, decreased bowel sounds Extremities: no cyanosis, other Laboratory Tests Test 09/10/18 19:45 09/11/18 04:30 09/11/18 05:00 Lactic Acid Level 2.00 mmol/L (0.4-2.0) 1.80 mmol/L (0.4-2.0) White Blood Count 10.2 K/UL (4.8-10.8) Red Blood Count 3.12 M/UL (4.70-6.10) L Hemoglobin 9.8 G/DL (14.2-18.0) L Hematocrit 30.3 % (42.0-52.0) L Mean Corpuscular Volume 97 FL (80-99) Mean Corpuscular Hemoglobin 31.3 PG (27.0-31.0) H Mean Corpuscular Hemoglobin Concent 32.3 G/DL (32.0-36.0) Red Cell Distribution Width 12.5 % (11.6-14.8) Platelet Count 166 K/UL (150-450) Mean Platelet Volume 9.7 FL (6.5-10.1) Neutrophils (%) (Auto) % (45.0-75.0) Lymphocytes (%) (Auto) % (20.0-45.0) Monocytes (%) (Auto) % (1.0-10.0) Eosinophils (%) (Auto) % (0.0-3.0) Basophils (%) (Auto) % (0.0-2.0) Differential Total Cells Counted 100 Neutrophils % (Manual) 70 % (45-75) Lymphocytes % (Manual) 11 % (20-45) L Monocytes % (Manual) 3 % (1-10) Eosinophils % (Manual) 1 % (0-3) Basophils % (Manual) 0 % (0-2) Band Neutrophils 15 % (0-8) H Platelet Estimate Adequate Platelet Morphology Normal [place] Cells Occasional Urine Eosinophils None seen (NONE SEEN) Sodium Level 158 MMOL/L (136-145) H Potassium Level 3.0 MMOL/L (3.5-5.1) L Chloride Level 126 MMOL/L (98-107) H Carbon Dioxide Level 18 MMOL/L (21-32) L Anion Gap 15 mmol/L (5-15) Blood Urea Nitrogen 57 mg/dL (7-18) H Creatinine 2.3 MG/DL (0.55-1.30) #H Estimat Glomerular Filtration Rate mL/min (>60) Glucose Level 101 MG/DL (74-106) # Uric Acid 5.2 MG/DL (2.6-7.2) Calcium Level 8.7 MG/DL (8.5-10.1) Phosphorus Level 2.6 MG/DL (2.5-4.9) Magnesium Level 2.3 MG/DL (1.8-2.4) Iron Level 20 ug/dL (50-175) L Total Iron Binding Capacity 95 ug/dL (250-450) L Percent Iron Saturation 21 % (15-50) Unsaturated Iron Binding 75 ug/dL (112-346) L Ferritin 1119 NG/ML (8-388) H Total Bilirubin 1.4 MG/DL (0.2-1.0) H Direct Bilirubin 0.5 MG/DL (0.0-0.3) H Gamma Glutamyl Transpeptidase 128 U/L (5-85) H Aspartate Amino Transf (AST/SGOT) 92 U/L (15-37) H Alanine Aminotransferase (ALT/SGPT) 79 U/L (12-78) H Alkaline Phosphatase 95 U/L (46-116) Total Creatine Kinase 2362 U/L (26-308) H C-Reactive Protein, Quantitative 41.2 mg/dL (0.00-0.90) H Pro-B-Type Natriuretic Peptide 1164 pg/mL (0-125) H Total Protein 6.2 G/DL (6.4-8.2) L Albumin 2.4 G/DL (3.4-5.0) L Globulin 3.8 g/dL Albumin/Globulin Ratio 0.6 (1.0-2.7) L Random Vancomycin Level 5.4 ug/mL Plan Problems: (1) Decubitus skin ulcer Assessment & Plan: Patient presented with multiple decubitus ulcers and wounds. He is identified to have heel, lower extremity, sacral wounds. None look actively infected. Please refer to photos for details. We will continue with care while in hospital. bilateral heel erythema, bilateral trochanteric erythema. turn q2h off load pressure foam dressings q3 days will monitor to ensure no breakdown (2) Pneumonia (3) BRYANT (acute kidney injury) (4) Septic shock Assessment & Plan: DAILY ESTIMATED NEEDS: Needs based on Wt loss, wound/ 53kg 30-35 kcals/kg 3573-8325 total kcals 1.25-1.5 g protein/kg 66-79 g total protein 25-30 mL/kg 9644-4690 total fluid mLs NUTRITION DIAGNOSIS: * Swallowing difficulty R/T dysphagia, decreased cognitive fxn as evidenced by SIDE STITCHER recommends NPO at this time, w/ an order for NGT insertion. * Increased kcal/prot intake needs R/T wt loss, wound healing as evidenced by pt admitted w/ possible significant wt loss of 10 pounds/7.9% wt loss in <1 mo, w/ wound photos, not yet evaluated. * Altered nutrition related lab values R/T ARF, dehydration, diabetes as evidenced by elev Na (162), elev Creat (8.3->4.7), elev BGs (203 197), elev A1C 6.3. CURRENT DIET:NPO ENTERAL NUTRITION RECOMMENDATIONS: Glucerna 1.2 @ 56ml/hr x 24 hrs to provide 1344ml, 1613kcal, 80g prot, 1082ml free water * W/ GI access, initiate Glucerna 1.2 @ 26ml/hr x 6 hrs * Advance 10ml q 4-6 hrs as tolerated to goal rate of 56ml/hr x 24 hrs * HOB over 30 degrees/ water flush per MD ADDITIONAL RECOMMENDATIONS: * Per SNF, HT=63", AF=[id number] (on 08/30/18) * Monitor renal fxn- improving at this time * Monitor lytes w/ TF, replete as needed * F/up wound eval -> rec to add Lemuel 1pkt BID (5) Failure to thrive syndrome, adult Assessment & Plan: Needs nutritional supplementation NG Tube for now for feeds and meds start tube feeds (6) Rhabdomyolysis Reji Guy Sep 11, 2018 14:02
--- NOTE | 2018-09-11 14:45 | NUR ---
NURSE NOTES: SEE AND EXAMINED BY DR COLLINS. WILL CONTINUE TO MONITOR.
--- NOTE | 2018-09-11 15:26 | NUR ---
NURSE NOTES: PATIENT TOLERATED FEEDING. WILL CONTINUE TO MONITOR.
--- NOTE | 2018-09-11 15:30 | General Progress Note ---
Assessment/Plan Assessment/Plan: 72 year old male admitted for septic shock 2/2 pna vs uti Septic shock likley 2/2 PNA vs UTI -Cont Vanc, Zosyn -f/u blood cultures -Change dopamine to Levaquin - titrate to goal MAP >65 - titrated off - bp stable -Monitor respiratory status -s/p 3L NS -ID Consult appreciated -Pulm/Crit consult appreciated -surgery consult appreciated -Levophed PRN - bp acceptable for now #BRYANT #Poss rhabdomyolysis -Likley 2/2 shock vs drug induced, CK elevated poss rhabdo -trend CK -nephrology consult appreciated -CTM -avoid nephrotoxic medications #Hypernatremia likley 2/2 poor PO intake -cont NS for fluid resus then transition to D5w -D5 started -CTM -Nephrology consult appreciated #dysphagia #Failure to thrive -consider nG tube placement -GI consulted #Full code Subjective Date patient seen: Sep 11, 2018 Allergies: Coded Allergies: No Known Allergies (Unverified , 08/20/18) Subjective No acute overnight evetns, BP borderline, off pressors, Tolerating tube feeds, creatinine improved Objective Last 24 Hour Vital Signs Date Time Temp Pulse Resp B/P (MAP) Pulse Ox O2 Delivery O2 Flow Rate FiO2 09/11/18 15:00 72 20 94/52 (66) 100 09/11/18 14:00 66 19 116/56 (76) 100 09/11/18 13:00 84 15 125/70 (88) 100 09/11/18 12:00 Nasal Cannula 2.0 09/11/18 12:00 100.2 82 16 118/64 (82) 100 09/11/18 12:00 83 09/11/18 11:00 72 19 114/58 (76) 98 09/11/18 10:00 78 16 137/54 (81) 99 09/11/18 09:00 70 16 145/58 (87) 99 09/11/18 08:00 98.5 70 16 146/76 (99) 98 09/11/18 08:00 59 09/11/18 08:00 Nasal Cannula 2.0 09/11/18 06:00 71 21 114/57 (76) 99 09/11/18 05:00 73 21 108/54 (72) 99 09/11/18 04:00 98.5 70 22 125/67 (86) 99 09/11/18 04:00 74 09/11/18 04:00 Nasal Cannula 2.0 09/11/18 03:00 70 22 118/58 (78) 99 09/11/18 02:00 79 19 125/62 (83) 99 09/11/18 01:00 67 19 118/69 (85) 99 09/11/18 00:00 Nasal Cannula 2.0 09/11/18 00:00 99.3 63 19 129/56 (80) 99 09/11/18 00:00 60 09/10/18 23:00 63 19 114/52 (72) 99 09/10/18 22:00 66 20 103/55 (71) 99 09/10/18 21:00 69 23 103/52 (69) 97 09/10/18 20:30 103/52 09/10/18 20:00 98.6 73 20 101/51 (68) 97 09/10/18 20:00 Nasal Cannula 2.0 09/10/18 20:00 73 09/10/18 19:00 76 22 118/58 (78) 98 09/10/18 18:00 88 24 108/65 (79) 96 09/10/18 17:00 75 19 115/58 (77) 97 09/10/18 16:00 86 09/10/18 16:00 100.1 88 19 122/59 (80) 97 09/10/18 16:00 Nasal Cannula 2.0 Intake and Output 09/10/18 09/11/18 18:59 06:59 Intake Total 1366.25 ml 1375 ml Output Total 640 ml 850 ml Balance 726.25 ml 525 ml Intake Free Water 30 ml IV Total 1336.25 ml 1375 ml Output Urine Total 640 ml 850 ml # Bowel Movements 1 1 Laboratory Tests 09/10/18 19:45: Lactic Acid Level 2.00 09/11/18 04:30: Lactic Acid Level 1.80 09/11/18 05:00: White Blood Count 10.2, Red Blood Count 3.12L, Hemoglobin 9.8L, Hematocrit 30.3L , Mean Corpuscular Volume 97, Mean Corpuscular Hemoglobin 31.3H, Mean Corpuscular Hemoglobin Concent 32.3, Red Cell Distribution Width 12.5, Platelet Count 166, Mean Platelet Volume 9.7, Neutrophils (%) (Auto) , Lymphocytes (%) ( Auto) , Monocytes (%) (Auto) , Eosinophils (%) (Auto) , Basophils (%) (Auto) , Differential Total Cells Counted 100, Neutrophils % (Manual) 70, Lymphocytes % ( Manual) 11L, Monocytes % (Manual) 3, Eosinophils % (Manual) 1, Basophils % ( Manual) 0, Band Neutrophils 15H, Platelet Estimate Adequate, Platelet Morphology Normal, Leif Cells Occasional, Urine Eosinophils None seen, Sodium Level 158H, Potassium Level 3.0L, Chloride Level 126H, Carbon Dioxide Level 18L , Anion Gap 15, Blood Urea Nitrogen 57H, Creatinine 2.3#H, Estimat Glomerular Filtration Rate , Glucose Level 101#, Uric Acid 5.2, Calcium Level 8.7, Phosphorus Level 2.6, Magnesium Level 2.3, Iron Level 20L, Total Iron Binding Capacity 95L, Percent Iron Saturation 21, Unsaturated Iron Binding 75L, Ferritin 1119H, Total Bilirubin 1.4H, Direct Bilirubin 0.5H, Gamma Glutamyl Transpeptidase 128H, Aspartate Amino Transf (AST/SGOT) 92H, Alanine Aminotransferase (ALT/SGPT) 79H, Alkaline Phosphatase 95, Total Creatine Kinase 2362H, C-Reactive Protein, Quantitative 41.2H, Pro-B-Type Natriuretic Peptide 1164H, Total Protein 6.2L, Albumin 2.4L, Globulin 3.8, Albumin/Globulin Ratio 0.6L, Random Vancomycin Level 5.4 Height (Feet): 5 Height (Inches): 5.00 Weight (Pounds): 112 Objective General Appearance: WD/WN, lethargic, confused Lines, tubes and drains: peripheral, central line HEENT: normocephalic, atraumatic, ng tube in place Neck: non-tender Respiratory/Chest: chest wall non-tender, no accessory muscle use Cardiovascular/Chest: normal peripheral pulses Abdomen: normal bowel sounds, non tender Neurologic: disoriented Kimberlyn Bonner MD Sep 11, 2018 15:30
[2018-09-11] MEDS ORDERED: NS 275ml ONE (15:37)
[2018-09-11] MEDS ORDERED: Sterile Water Irrig 1000ml IRRIG ONE (15:37)
[2018-09-11] MEDS ORDERED: Tubing IV Secondary IV ONE (15:37)
--- NOTE | 2018-09-11 17:30 | NUR ---
NURSE NOTES: PATIENT KEPT CLEAN AND DRY. NO SIGNS OF DISTRESS. WILL CONTINUE TO MONITOR.
--- NOTE | 2018-09-11 19:33 | NUR ---
HAND-OFF: Report given to Sergio Billings RN.
--- NOTE | 2018-09-11 19:34 | NUR ---
NURSE NOTES: Endorsement received from ANTOINETTE Sanon. Patient opens eyes spontaneously, moans to pain. Sinus rhythm on the monitor. On 2LPM oxygen per nasal cannula. NGT at left nare, placement rechecked per auscultation. Glucerna 1.5 at 20ml/hr with goal of 30ml/hr. Noted with 120ml residual. Feeding held at this time. Manriquez catheter F 16 connected to urimeter. Dark malachi. With right femoral TLC. Right wrist g 20, left forearm g 22 both heplock. On D5W 125ml/hr. Head of bed elevated. Bed locked and in low position. Bed alarm on. Call light within reach.
[2018-09-11] MEDS: Dyna-Hex 2% Top Sol 2oz TOPIC SCH (20:23)
[2018-09-11] MEDS: Acetaminophen 650mg/20.3ml NG PRN (20:24)
--- NOTE | 2018-09-11 21:00 | NUR ---
NURSE NOTES: Patient's temp was 100.5F. Cooling measures initiated. PRN tylenol given. Will reassess
--- NOTE | 2018-09-11 22:00 | NUR ---
NURSE NOTES: Temp 99.5F. No residual, tube feeding restarted at 20ml/hr
[2018-09-12] VITALS (24 sets, daily range): BP systolic 92–146; BP diastolic 48–99
--- NOTE | 2018-09-12 | NUR ---
NURSE NOTES: Patient asleep, now on room air. No shortness of breath. 99% saturation on the monitor. Tolerating feeds
--- NOTE | 2018-09-12 01:45 | Consultation ---
DATE OF CONSULTATION: 09/11/2018 GASTROENTEROLOGY CONSULTATION CONSULTING PHYSICIAN: Alex Ann M.D. CHIEF COMPLAINT: I was asked to see this patient by Dr. Hyatt for evaluation of feeding problems. HISTORY OF PRESENT ILLNESS: The patient is a 72-year-old unfortunate man who was brought in due to septic shock. The patient was confused in the ICU and unable to provide any history. Most information is only available from the chart. The patient failed a swallow study due to altered mental status and therefore a nasogastric tube has been placed. He has been seen by multiple consultants and his overall status has improved. He is somewhat noncommunicative, although arousable and he is unable to provide any additional history. PAST MEDICAL HISTORY: History of hypokalemia, dementia, weakness, poor dentition, neurological disease, anemia, contractures, dysphagia, aspiration risk, glaucoma. FAMILY HISTORY: Unavailable and unobtainable. SOCIAL HISTORY: The patient has no chart history of smoking or drinking. ALLERGIES: None. REVIEW OF SYSTEMS: Otherwise unobtainable. PHYSICAL EXAMINATION: GENERAL: Debilitated elderly confused man, seen in the ICU. HEENT: Normocephalic and atraumatic. Dentition is poor. NECK: Supple. CHEST: Coarse breath sounds. CARDIOVASCULAR: Regular rate. ABDOMEN: Soft and nontender with good bowel sounds. There are some contraction deformities. EXTREMITIES: No edema. LABORATORY DATA: Laboratory data were noted. Nasogastric tube was in place. ASSESSMENT: This patient has septic shock and is in the recovery, was in the ICU with supportive care. He failed his swallow study and therefore temporary nasogastric tube feedings would be appropriate. His overall mental status and swallow function can be observed and followed in the next few days. Should there be improvement, then swallow trial should be given. If not, then he ultimately may require a gastrostomy tube for long-term enteral access and nutrition. RECOMMENDATIONS: 1. Continue tube feedings. 2. Elevate head of bed. 3. Follow laboratory parameters and exam. 4. Reevaluate for swallow function in the next few days. Thank you for asking me to participate in the care of this patient. Alex Ann M.D. DR: TRISAT JOB#: [id number] CC:
--- NOTE | 2018-09-12 02:00 | NUR ---
NURSE NOTES: Patient asleep. Vital signs stable.
--- NOTE | 2018-09-12 04:00 | NUR ---
NURSE NOTES: Patient afebrile. No residual. Repositioned patient
[2018-09-12] MEDS: NovoLOG Insulin Flexpen SUBQ SCH ×4 (04:26→19:00)
--- NOTE | 2018-09-12 06:00 | NUR ---
NURSE NOTES: Bed bath, oral care, change of linens done.
--- NOTE | 2018-09-12 07:01 | NUR ---
HAND-OFF: Report given to ANTOINETTE Gutierrez.
[2018-09-12 07:02] LABS: BASOPHILS % (AUTO) 0.3 % (0.0-2.0); EOSINOPHILS % (AUTO) 1.6 % (0.0-3.0); HEMATOCRIT 28.9 % (42.0-52.0); HEMOGLOBIN 9.5 G/DL (14.2-18.0); LYMPHOCYTES % (AUTO) 14.5 % (20.0-45.0); MEAN CORPUSCULAR VOLUME 96 FL (80-99); MONOCYTES % (AUTO) 2.2 % (1.0-10.0); NEUTROPHILS % (AUTO) 81.5 % (45.0-75.0); PLATELET COUNT 151 K/UL (150-450); WHITE BLOOD COUNT 10.7 K/UL (4.8-10.8)
--- NOTE | 2018-09-12 07:02 | NUR ---
NURSE NOTES: Received pt from ANTOINETTE Kay in stable condition with no cardiopulmonary distress noted. Pt is asleep in bed, opens eyes spontaneously, AAOx1 on RA, hooked to distillery laborer currently SR. NGT noted in L nare running Glucerna 1.5 at 30cc/hr. F/C noted draining yellow urine. Skin alterations noted. Pt has a R femoral TLC, L wrist 20g IV and RFA 22g IV. Bed is in lowest position with alarm on, call lgiht within reach, side rails up x3, call light within reach. Will continue to monitor pt. Addendum: 09/12/18 at 1122 by Brenda Driscoll RN Amendment: pt has a Left wrist and RFA 22g IV
[2018-09-12 07:26] LABS: ALANINE AMINOTRANSFERASE 71 U/L (12-78); ALBUMIN 2.1 G/DL (3.4-5.0); ALBUMIN/GLOBULIN RATIO 0.6 (1.0-2.7); ALKALINE PHOSPHATASE 104 U/L (46-116); ANION GAP 12 mmol/L (5-15); ASPARTATE AMINO TRANSFERASE 65 U/L (15-37); BLOOD UREA NITROGEN 31 mg/dL (7-18); CALCIUM 8.4 MG/DL (8.5-10.1); CARBON DIOXIDE 20 MMOL/L (21-32); CHLORIDE 117 MMOL/L (98-107); CREATINE KINASE 965 U/L (26-308); CREATININE 1.6 MG/DL (0.55-1.30); PHOSPHORUS 2.1 MG/DL (2.5-4.9); POTASSIUM 3.2 MMOL/L (3.5-5.1); SODIUM 149 MMOL/L (136-145)
--- NOTE | 2018-09-12 07:30 | NUR ---
NURSE NOTES: Left message for Dr. Bonner regarding pt's potassium level and request to d/c femoral line. Awaiting call back
[2018-09-12] MEDS: Piperacillin/Tazobactam 3.375 GM in NS 110 ML IVPB SCH ×3 (08:20→16:43)
[2018-09-12] MEDS: Heparin 5000 units/ml inj SUBQ SCH ×2 (08:22→21:05)
[2018-09-12] MEDS ORDERED: Piperacillin/Tazobactam 3.375 GM in NS 110 ML IVPB SCH (08:30)
[2018-09-12] MEDS ORDERED: Potassium Phosphate 30 MM in NS 275 ML IV ONE (09:45)
--- NOTE | 2018-09-12 09:50 | NUR ---
NURSE NOTES: Pt repositioned and cleaned. [address] Ann also came in to assess pt and made aware of hiccups. No signs of distress at this time.
--- NOTE | 2018-09-12 09:50 | NUR ---
NURSE NOTES: Called [employer] to follow up on P200 mattress. Advised that it will be delivered today.
[2018-09-12] MEDS ORDERED: Metoclopramide 10mg/2ml Inj IVP PRN (10:00)
--- NOTE | 2018-09-12 11:12 | Pulmonolgy Critical Care Note ---
Critical Care - Asmt/Plan Assessment/Plan: PULMONARY AND CRITICAL CARE PROGRESS NOTE HISTORY OF PRESENT ILLNESS: The patient is a nonverbal male, brought in by a nursing facility with shortness of breath. Upon arrival to the ER, the patient was hypotensive with increased work of breathing. A triple-lumen catheter was placed in the groin and the patient was started on pressors. Overnight, T-max is 97.2, heart rate is stable. The patient is saturating well on 4 L of O2. The patient has been weaned off of pressors. The patient also has direct bilirubinemia with abnormal transaminases, elevated CK, and inflammatory markers. Urinalysis was positive. Cultures so far have not grown anything. Chest x-ray in the emergency department reviewed by myself showed no consolidation or other abnormalities. The patient is being treated for septic shock from UTI and possible pneumonia with Zosyn and vancomycin. He has been seen by ID and Renal and he is getting IV fluid hydration. PAST MEDICAL HISTORY: longterm resident, dementia with prior cellulitis, generalized weakness, and hypertension. PAST SURGICAL HISTORY: Unknown. ALLERGIES: No known drug allergies. MEDICATIONS: At home, acetaminophen, Celebrex, vitamin D, Pepcid, lisinopril, Risperdal, thiamine, tramadol, and trazodone. SOCIAL HISTORY: Unobtainable. FAMILY HISTORY: Unobtainable. REVIEW OF SYSTEMS: Unobtainable. PHYSICAL EXAMINATION: VITAL SIGNS: Noted GENERAL: He is a demented, nonverbal male, in no acute distress, awake. HEENT: Normocephalic and atraumatic. Oropharynx is clear. NECK: Supple without lymphadenopathy or JVD. CHEST: Clear. HEART: Regular. ABDOMEN: Benign. Right groin femoral line is noted. EXTREMITIES: No cyanosis, clubbing, or edema. ANCILLARY DATA: White count 8.4, hemoglobin 10.6, and platelet count 174,000. ABG 7.43/26/70/17/92. INR 1.1. Sodium 160, potassium 3.2, chloride 130, bicarbonate 18, gap 17, BUN 114, creatinine 4.7, glucose 203. Hemoglobin A1c 6.3. Lactic acid 2.8. Uric acid 9.5, calcium 8.3, magnesium 2.9, total bilirubin 1.6, direct bilirubin 0.9. CK 3049. CRP 27. Total protein 6.3, albumin 2.4. Chest x-ray, no acute findings. Urinalysis positive, culture is pending. ASSESSMENT: The patient is a 72-year-old male, long term resident, with underlying history of dementia, presenting with septic shock, pneumonia on CXR, additional urinary source with BRYANT, rhabdomyolysis, lactic acidosis, anion gap acidosis, and abnormal LFTs. Renal function improving PROBLEM LIST: 1. Septic shock. Pneumonia, improving left atelectasis on CXR 2. UTI with urosepsis. 3. BRYANT. 4. Anion-gap metabolic acidosis. 5. Lactic acidosis. 6. Abnormal LFTs, likely shock liver. 7. Hypertension. 8. Diabetes. 9. Dementia. 10. Anemia. TREATMENT PLAN: 1. Continue ICU care. 2. IV fluid hydration. 3. Pressors p.r.n. 4. Antibiotics, vancomycin and Zosyn, today is day #5 per ID. 5. Monitor electrolytes and renal function. 6. Monitor lactic acid. 7. DVT prophylaxis, heparin subcu. 8. The patient is Full Code. 9. Monitor LFTs. 10. Continue to discuss goals of care. 11. NC O2 Critical Care - Objective Last 24 Hour Vital Signs Date Time Temp Pulse Resp B/P (MAP) Pulse Ox O2 Delivery O2 Flow Rate FiO2 09/12/18 08:00 Nasal Cannula 2.0 09/12/18 07:00 70 21 136/99 (111) 100 09/12/18 06:00 70 21 136/99 (111) 100 09/12/18 05:00 77 22 118/63 (81) 100 09/12/18 04:00 73 09/12/18 04:00 Nasal Cannula 2.0 09/12/18 04:00 99.3 69 19 120/70 (87) 99 09/12/18 03:00 71 16 126/55 (78) 99 09/12/18 02:00 68 22 92/51 (65) 99 09/12/18 01:00 70 16 111/65 (80) 100 09/12/18 00:00 99.0 72 19 97/49 (65) 100 09/12/18 00:00 77 09/12/18 00:00 Nasal Cannula 2.0 09/11/18 23:00 72 19 99/47 (64) 100 6/29/19 22:00 73 17 143/70 (94) 100 09/11/18 21:26 99.0 09/11/18 21:00 99.5 77 15 116/71 (86) 100 09/11/18 20:27 133/65 09/11/18 20:00 70 09/11/18 20:00 100.5 75 21 133/75 (94) 100 09/11/18 20:00 Nasal Cannula 2.0 09/11/18 19:00 72 24 148/74 (98) 100 09/11/18 18:00 77 18 130/64 (86) 100 09/11/18 17:00 71 18 120/61 (80) 100 09/11/18 16:00 98.5 80 18 123/68 (86) 100 09/11/18 16:00 Nasal Cannula 2.0 09/11/18 16:00 72 09/11/18 15:00 72 20 94/52 (66) 100 09/11/18 14:00 66 19 116/56 (76) 100 09/11/18 13:00 84 15 125/70 (88) 100 09/11/18 12:55 98.7 09/11/18 12:00 Nasal Cannula 2.0 09/11/18 12:00 100.2 82 16 118/64 (82) 100 09/11/18 12:00 83 Micro: Microbiology Date/Time Source Procedure Growth Status 09/09/18 16:40 Blood Blood Culture - Preliminary NO GROWTH AFTER 48 HOURS Resulted 09/09/18 16:30 Blood Blood Culture - Preliminary NO GROWTH AFTER 48 HOURS Resulted 09/10/18 16:25 Sputum Induced Gram Stain - Final Resulted 09/10/18 16:25 Sputum Culture - Preliminary YEAST Usual Upper Respiratory Deloris Resulted 09/09/18 16:30 Nasal Nares MRSA Culture - Final Staphylococcus Aureus - Mrsa Complete 09/09/18 17:10 Urine,Clean Catch Urine Culture - Final Complete 09/09/18 16:30 Rectum VRE Culture - Final NO VANCOMYCIN RESISTANT ENTEROCOCCUS ... Complete 09/09/18 16:30 Rectum - Final NO CARBAPENEM-RESISTANT ENTEROBACTERI... Complete Accucheck: 95 Critical Care - Subjective ROS Limited/Unobtainable: No Tube Feeding Amount: 30 I&O: Intake and Output 09/11/18 09/12/18 19:00 07:00 Intake Total 2091.666 ml 1900 ml Output Total 1101 ml 810 ml Balance 990.666 ml 1090 ml Intake Free Water 200 ml 200 ml IV Total 1751.666 ml 1500 ml Tube Feeding 140 ml 200 ml Output Urine Total 1100 ml 810 ml Stool Total 1 ml # Bowel Movements 2 Elijah Isaac MD Sep 12, 2018 11:12
[2018-09-12] MEDS: Vancomycin 1gm/D5W 275ml IVPB SCH ×2 (11:51)
--- NOTE | 2018-09-12 12:00 | Diagnostic Imaging Report ---
EXAM: XR Chest, 1 View CLINICAL HISTORY: INFECT TECHNIQUE: Frontal view of the chest. COMPARISON: Chest radiograph on 09/10/2018 FINDINGS: Hardware: Interval placement of an enteric tube which terminates in the region of the gastric antrum. Lungs/pleura: Slightly increased patchy opacity in the left lung. Decreased left pleural effusion. Mild elevation of the right hemidiaphragm. Heart/mediastinum: Normal. No cardiomegaly. Soft tissues: Unremarkable. Bones: No acute fracture. Degenerative changes of the visualized left acromioclavicular joints. Upper abdomen: Normal. IMPRESSION: Slightly increased patchy opacity in the left lung. Decreased left pleural effusion. Interval placement of an enteric tube which terminates in the region of the gastric antrum.
--- NOTE | 2018-09-12 12:49 | NUR ---
NURSE NOTES: Pt asleep in bed, no signs of distress. Hiccups resolving when TF is off, awaiting call back from Dr. Ann regarding resuming TF. Pty repositioned and no signs of distress at this time.
[2018-09-12] MEDS: Acetaminophen 650mg/20.3ml NG PRN (12:57)
--- NOTE | 2018-09-12 12:58 | Surgery Progress Note ---
Surgery Progress Note Subjective Additional Comments febrile wbc okay labs noted exam unchanged wounds stable. Objective Last 24 Hour Vital Signs Date Time Temp Pulse Resp B/P (MAP) Pulse Ox O2 Delivery O2 Flow Rate FiO2 09/12/18 12:00 80 09/12/18 12:00 Nasal Cannula 2.0 09/12/18 12:00 101.7 74 19 118/55 (76) 100 09/12/18 11:00 76 21 116/50 (72) 100 09/12/18 10:00 84 19 127/62 (83) 100 09/12/18 09:00 79 17 146/93 (110) 100 09/12/18 08:00 Nasal Cannula 2.0 09/12/18 08:00 100.4 75 17 129/78 (95) 100 09/12/18 08:00 73 09/12/18 07:00 70 21 136/99 (111) 100 09/12/18 06:00 70 21 136/99 (111) 100 09/12/18 05:00 77 22 118/63 (81) 100 09/12/18 04:00 73 09/12/18 04:00 Nasal Cannula 2.0 09/12/18 04:00 99.3 69 19 120/70 (87) 99 09/12/18 03:00 71 16 126/55 (78) 99 09/12/18 02:00 68 22 92/51 (65) 99 09/12/18 01:00 70 16 111/65 (80) 100 09/12/18 00:00 99.0 72 19 97/49 (65) 100 09/12/18 00:00 77 09/12/18 00:00 Nasal Cannula 2.0 09/11/18 23:00 72 19 99/47 (64) 100 09/11/18 22:00 73 17 143/70 (94) 100 09/11/18 21:26 99.0 09/11/18 21:00 99.5 77 15 116/71 (86) 100 09/11/18 20:27 133/65 09/11/18 20:00 70 09/11/18 20:00 100.5 75 21 133/75 (94) 100 09/11/18 20:00 Nasal Cannula 2.0 09/11/18 19:00 72 24 148/74 (98) 100 09/11/18 18:00 77 18 130/64 (86) 100 09/11/18 17:00 71 18 120/61 (80) 100 09/11/18 16:00 98.5 80 18 123/68 (86) 100 09/11/18 16:00 Nasal Cannula 2.0 09/11/18 16:00 72 09/11/18 15:00 72 20 94/52 (66) 100 09/11/18 14:00 66 19 116/56 (76) 100 09/11/18 13:00 84 15 125/70 (88) 100 I&O Intake and Output 09/11/18 09/12/18 19:00 07:00 Intake Total 2091.666 ml 1900 ml Output Total 1101 ml 810 ml Balance 990.666 ml 1090 ml Intake Free Water 200 ml 200 ml IV Total 1751.666 ml 1500 ml Tube Feeding 140 ml 200 ml Output Urine Total 1100 ml 810 ml Stool Total 1 ml # Bowel Movements 2 Dressing: other Wound: other Drains: other Cardiovascular: RSR Respiratory: decreased breath sounds Abdomen: soft, present bowel sounds, non-distended Extremities: no cyanosis Laboratory Tests Test 09/12/18 05:00 09/12/18 09:25 White Blood Count 10.7 K/UL (4.8-10.8) Red Blood Count 3.00 M/UL (4.70-6.10) L Hemoglobin 9.5 G/DL (14.2-18.0) L Hematocrit 28.9 % (42.0-52.0) L Mean Corpuscular Volume 96 FL (80-99) Mean Corpuscular Hemoglobin 31.5 PG (27.0-31.0) H Mean Corpuscular Hemoglobin Concent 32.8 G/DL (32.0-36.0) Red Cell Distribution Width 13.0 % (11.6-14.8) Platelet Count 151 K/UL (150-450) Mean Platelet Volume 9.9 FL (6.5-10.1) Neutrophils (%) (Auto) 81.5 % (45.0-75.0) H Lymphocytes (%) (Auto) 14.5 % (20.0-45.0) L Monocytes (%) (Auto) 2.2 % (1.0-10.0) Eosinophils (%) (Auto) 1.6 % (0.0-3.0) Basophils (%) (Auto) 0.3 % (0.0-2.0) Urine Eosinophils None seen (NONE SEEN) Sodium Level 149 MMOL/L (136-145) H Potassium Level 3.2 MMOL/L (3.5-5.1) L Chloride Level 117 MMOL/L (98-107) H Carbon Dioxide Level 20 MMOL/L (21-32) L Anion Gap 12 mmol/L (5-15) Blood Urea Nitrogen 31 mg/dL (7-18) H Creatinine 1.6 MG/DL (0.55-1.30) H Estimat Glomerular Filtration Rate mL/min (>60) Glucose Level 95 MG/DL (74-106) Uric Acid 2.8 MG/DL (2.6-7.2) Calcium Level 8.4 MG/DL (8.5-10.1) L Phosphorus Level 2.1 MG/DL (2.5-4.9) L Magnesium Level 2.0 MG/DL (1.8-2.4) Total Bilirubin 1.0 MG/DL (0.2-1.0) Aspartate Amino Transf (AST/SGOT) 65 U/L (15-37) H Alanine Aminotransferase (ALT/SGPT) 71 U/L (12-78) Alkaline Phosphatase 104 U/L (46-116) Total Creatine Kinase 965 U/L (26-308) H C-Reactive Protein, Quantitative 34.6 mg/dL (0.00-0.90) H Pro-B-Type Natriuretic Peptide 2211 pg/mL (0-125) H Total Protein 5.9 G/DL (6.4-8.2) L Albumin 2.1 G/DL (3.4-5.0) L Globulin 3.8 g/dL Albumin/Globulin Ratio 0.6 (1.0-2.7) L Random Vancomycin Level 11.5 ug/mL Plan Problems: (1) Decubitus skin ulcer Assessment & Plan: Patient presented with multiple decubitus ulcers and wounds. He is identified to have heel, lower extremity, sacral wounds. None look actively infected. Please refer to photos for details. We will continue with care while in hospital. bilateral heel erythema, bilateral trochanteric erythema. turn q2h off load pressure foam dressings q3 days will monitor to ensure no breakdown (2) Pneumonia (3) BRYANT (acute kidney injury) (4) Septic shock Assessment & Plan: DAILY ESTIMATED NEEDS: Needs based on Wt loss, wound/ 53kg 30-35 kcals/kg 6122-1195 total kcals 1.25-1.5 g protein/kg 66-79 g total protein 25-30 mL/kg 5130-3328 total fluid mLs NUTRITION DIAGNOSIS: * Swallowing difficulty R/T dysphagia, decreased cognitive fxn as evidenced by SCHOOL SERVICES OFFICER recommends NPO at this time, w/ an order for NGT insertion. * Increased kcal/prot intake needs R/T wt loss, wound healing as evidenced by pt admitted w/ possible significant wt loss of 10 pounds/7.9% wt loss in <1 mo, w/ wound photos, not yet evaluated. * Altered nutrition related lab values R/T ARF, dehydration, diabetes as evidenced by elev Na (162), elev Creat (8.3->4.7), elev BGs (203 197), elev A1C 6.3. CURRENT DIET:NPO ENTERAL NUTRITION RECOMMENDATIONS: Glucerna 1.2 @ 56ml/hr x 24 hrs to provide 1344ml, 1613kcal, 80g prot, 1082ml free water * W/ GI access, initiate Glucerna 1.2 @ 26ml/hr x 6 hrs * Advance 10ml q 4-6 hrs as tolerated to goal rate of 56ml/hr x 24 hrs * HOB over 30 degrees/ water flush per MD ADDITIONAL RECOMMENDATIONS: * Per SNF, HT=63", [id number] (on 08/30/18) * Monitor renal fxn- improving at this time * Monitor lytes w/ TF, replete as needed * F/up wound eval -> rec to add Lemuel 1pkt BID (5) Failure to thrive syndrome, adult Assessment & Plan: Needs nutritional supplementation NG Tube for now for feeds and meds start tube feeds (6) Rhabdomyolysis Reji Guy Sep 12, 2018 12:58
--- NOTE | 2018-09-12 14:17 | Nephrology Progress Note ---
Assessment/Plan Problem List: (1) BRYANT (acute kidney injury) (2) Rhabdomyolysis (3) Septic shock (4) Failure to thrive syndrome, adult (5) Pneumonia Assessment Acute Renal Failure: ? Drug induced Was on Lisinopril and Celebrex Rhabdo: High CPK Dehydration Shock Sepsis / Pneumonia / UTI Malnutrition Plan Hydrate with D5 K and Phos Iv as needed start NGT feeding SS Insulin off pressors antibiotics monitor renal parameters per orders Subjective ROS Limited/Unobtainable: No Constitutional: Reports: malaise Objective Objective Last 24 Hour Vital Signs Date Time Temp Pulse Resp B/P (MAP) Pulse Ox O2 Delivery O2 Flow Rate FiO2 09/12/18 14:00 100.4 76 22 122/68 (86) 98 09/12/18 13:27 100.0 09/12/18 13:00 81 20 137/63 (87) 100 09/12/18 12:00 80 09/12/18 12:00 Nasal Cannula 2.0 09/12/18 12:00 101.7 74 19 118/55 (76) 100 09/12/18 11:00 76 21 116/50 (72) 100 09/12/18 10:00 84 19 127/62 (83) 100 09/12/18 09:00 79 17 146/93 (110) 100 09/12/18 08:00 Nasal Cannula 2.0 09/12/18 08:00 100.4 75 17 129/78 (95) 100 09/12/18 08:00 73 09/12/18 07:00 70 21 136/99 (111) 100 09/12/18 06:00 70 21 136/99 (111) 100 09/12/18 05:00 77 22 118/63 (81) 100 09/12/18 04:00 73 09/12/18 04:00 Nasal Cannula 2.0 09/12/18 04:00 99.3 69 19 120/70 (87) 99 09/12/18 03:00 71 16 126/55 (78) 99 09/12/18 02:00 68 22 92/51 (65) 99 09/12/18 01:00 70 16 111/65 (80) 100 09/12/18 00:00 99.0 72 19 97/49 (65) 100 09/12/18 00:00 77 09/12/18 00:00 Nasal Cannula 2.0 09/11/18 23:00 72 19 99/47 (64) 100 09/11/18 22:00 73 17 143/70 (94) 100 09/11/18 21:00 99.5 77 15 116/71 (86) 100 09/11/18 20:27 133/65 09/11/18 20:00 70 09/11/18 20:00 100.5 75 21 133/75 (94) 100 09/11/18 20:00 Nasal Cannula 2.0 09/11/18 19:00 72 24 148/74 (98) 100 09/11/18 18:00 77 18 130/64 (86) 100 09/11/18 17:00 71 18 120/61 (80) 100 09/11/18 16:00 98.5 80 18 123/68 (86) 100 09/11/18 16:00 Nasal Cannula 2.0 09/11/18 16:00 72 09/11/18 15:00 72 20 94/52 (66) 100 Intake and Output 09/11/18 09/12/18 19:00 07:00 Intake Total 2091.666 ml 1900 ml Output Total 1101 ml 810 ml Balance 990.666 ml 1090 ml Intake Free Water 200 ml 200 ml IV Total 1751.666 ml 1500 ml Tube Feeding 140 ml 200 ml Output Urine Total 1100 ml 810 ml Stool Total 1 ml # Bowel Movements 2 Laboratory Tests 09/12/18 05:00: White Blood Count 10.7, Red Blood Count 3.00L, Hemoglobin 9.5L, Hematocrit 28.9L , Mean Corpuscular Volume 96, Mean Corpuscular Hemoglobin 31.5H, Mean Corpuscular Hemoglobin Concent 32.8, Red Cell Distribution Width 13.0, Platelet Count 151, Mean Platelet Volume 9.9, Neutrophils (%) (Auto) 81.5H, Lymphocytes ( %) (Auto) 14.5L, Monocytes (%) (Auto) 2.2, Eosinophils (%) (Auto) 1.6, Basophils (%) (Auto) 0.3, Urine Eosinophils None seen, Sodium Level 149H, Potassium Level 3.2L, Chloride Level 117H, Carbon Dioxide Level 20L, Anion Gap 12, Blood Urea Nitrogen 31H, Creatinine 1.6H, Estimat Glomerular Filtration Rate , Glucose Level 95, Uric Acid 2.8, Calcium Level 8.4L, Phosphorus Level 2.1L, Magnesium Level 2.0, Total Bilirubin 1.0, Aspartate Amino Transf (AST/SGOT ) 65H, Alanine Aminotransferase (ALT/SGPT) 71, Alkaline Phosphatase 104, Total Creatine Kinase 965H, C-Reactive Protein, Quantitative 34.6H, Pro-B-Type Natriuretic Peptide 2211H, Total Protein 5.9L, Albumin 2.1L, Globulin 3.8, Albumin/Globulin Ratio 0.6L 09/12/18 09:25: Random Vancomycin Level 11.5 Height (Feet): 5 Height (Inches): 5.00 Weight (Pounds): 112 General Appearance: no apparent distress EENT: other - NGT Cardiovascular: normal rate Respiratory/Chest: decreased breath sounds Abdomen: soft Minh Phipps MD Sep 12, 2018 14:17
--- NOTE | 2018-09-12 14:31 | NUR ---
NURSE NOTES: Dr. Hernandez and Dr. Bonner came in to assess pt and state he is improving. Dr Bonner informed of persistent hiccups. No new orders at this time. D5W rate reduced to 75cc per Dr. Phipps. No distress noted at this time. Pt repositioned.
--- NOTE | 2018-09-12 15:02 | General Progress Note ---
Assessment/Plan Assessment/Plan: 72 year old male admitted for septic shock 2/2 pna vs uti Septic shock likley 2/2 PNA vs UTI -Cont Vanc, Zosyn -f/u blood cultures -Change dopamine to Levaquin - titrate to goal MAP >65 - titrated off - bp stable -Monitor respiratory status -s/p 3L NS -ID Consult appreciated -Pulm/Crit consult appreciated -surgery consult appreciated -Levophed PRN - bp acceptable for now -DC femoral line #BRYANT - improved #Poss rhabdomyolysis -Likley 2/2 shock vs drug induced, CK elevated poss rhabdo -trend CK -nephrology consult appreciated -CTM -avoid nephrotoxic medications #Hypernatremia likley 2/2 poor PO intake -cont NS for fluid resus then transition to D5w -D5 started -CTM -Nephrology consult appreciated #dysphagia #Failure to thrive -consider nG tube placement -GI consulted #Full code Subjective Date patient seen: Sep 12, 2018 Allergies: Coded Allergies: No Known Allergies (Unverified , 08/20/18) Subjective No acute overnight evetns, BP improved, off pressors, Tolerating tube feeds, creatinine improved, dc femoral line Objective Last 24 Hour Vital Signs Date Time Temp Pulse Resp B/P (MAP) Pulse Ox O2 Delivery O2 Flow Rate FiO2 09/12/18 14:00 100.4 76 22 122/68 (86) 98 09/12/18 13:27 100.0 09/12/18 13:00 81 20 137/63 (87) 100 09/12/18 12:00 80 09/12/18 12:00 Nasal Cannula 2.0 09/12/18 12:00 101.7 74 19 118/55 (76) 100 09/12/18 11:00 76 21 116/50 (72) 100 09/12/18 10:00 84 19 127/62 (83) 100 09/12/18 09:00 79 17 146/93 (110) 100 09/12/18 08:00 Nasal Cannula 2.0 09/12/18 08:00 100.4 75 17 129/78 (95) 100 09/12/18 08:00 73 09/12/18 07:00 70 21 136/99 (111) 100 09/12/18 06:00 70 21 136/99 (111) 100 09/12/18 05:00 77 22 118/63 (81) 100 09/12/18 04:00 73 09/12/18 04:00 Nasal Cannula 2.0 09/12/18 04:00 99.3 69 19 120/70 (87) 99 09/12/18 03:00 71 16 126/55 (78) 99 09/12/18 02:00 68 22 92/51 (65) 99 09/12/18 01:00 70 16 111/65 (80) 100 09/12/18 00:00 99.0 72 19 97/49 (65) 100 09/12/18 00:00 77 09/12/18 00:00 Nasal Cannula 2.0 09/11/18 23:00 72 19 99/47 (64) 100 09/11/18 22:00 73 17 143/70 (94) 100 09/11/18 21:00 99.5 77 15 116/71 (86) 100 09/11/18 20:27 133/65 09/11/18 20:00 70 09/11/18 20:00 100.5 75 21 133/75 (94) 100 09/11/18 20:00 Nasal Cannula 2.0 09/11/18 19:00 72 24 148/74 (98) 100 09/11/18 18:00 77 18 130/64 (86) 100 09/11/18 17:00 71 18 120/61 (80) 100 09/11/18 16:00 98.5 80 18 123/68 (86) 100 09/11/18 16:00 Nasal Cannula 2.0 09/11/18 16:00 72 Intake and Output 09/11/18 09/12/18 19:00 07:00 Intake Total 2091.666 ml 1900 ml Output Total 1101 ml 810 ml Balance 990.666 ml 1090 ml Intake Free Water 200 ml 200 ml IV Total 1751.666 ml 1500 ml Tube Feeding 140 ml 200 ml Output Urine Total 1100 ml 810 ml Stool Total 1 ml # Bowel Movements 2 Laboratory Tests 09/12/18 05:00: White Blood Count 10.7, Red Blood Count 3.00L, Hemoglobin 9.5L, Hematocrit 28.9L , Mean Corpuscular Volume 96, Mean Corpuscular Hemoglobin 31.5H, Mean Corpuscular Hemoglobin Concent 32.8, Red Cell Distribution Width 13.0, Platelet Count 151, Mean Platelet Volume 9.9, Neutrophils (%) (Auto) 81.5H, Lymphocytes ( %) (Auto) 14.5L, Monocytes (%) (Auto) 2.2, Eosinophils (%) (Auto) 1.6, Basophils (%) (Auto) 0.3, Urine Eosinophils None seen, Sodium Level 149H, Potassium Level 3.2L, Chloride Level 117H, Carbon Dioxide Level 20L, Anion Gap 12, Blood Urea Nitrogen 31H, Creatinine 1.6H, Estimat Glomerular Filtration Rate , Glucose Level 95, Uric Acid 2.8, Calcium Level 8.4L, Phosphorus Level 2.1L, Magnesium Level 2.0, Total Bilirubin 1.0, Aspartate Amino Transf (AST/SGOT ) 65H, Alanine Aminotransferase (ALT/SGPT) 71, Alkaline Phosphatase 104, Total Creatine Kinase 965H, C-Reactive Protein, Quantitative 34.6H, Pro-B-Type Natriuretic Peptide 2211H, Total Protein 5.9L, Albumin 2.1L, Globulin 3.8, Albumin/Globulin Ratio 0.6L 09/12/18 09:25: Random Vancomycin Level 11.5 Height (Feet): 5 Height (Inches): 5.00 Weight (Pounds): 112 Objective General Appearance: WD/WN, lethargic, confused Lines, tubes and drains: peripheral, central line HEENT: normocephalic, atraumatic, ng tube in place Neck: non-tender Respiratory/Chest: chest wall non-tender, no accessory muscle use Cardiovascular/Chest: normal peripheral pulses Abdomen: normal bowel sounds, non tender Neurologic: disoriented Kimberlyn Bonner MD Sep 12, 2018 15:02
--- NOTE | 2018-09-12 15:37 | Infectious Diseases Prog Note ---
Assessment/Plan Assessment/Plan ASSESSMENT AND PLAN: 1. sepsis, shock, fevers, leukocytosis, sirs, pneumonia, ? uti, mrsa colonization - vancomycin and zosyn - f/u on cultures, labs and chest x-ray - off pressors, still febrile - icu care - d/w Dr. Bonner and RN 2. Intensive care unit care and supportive measures. 3. Anemia. 4. Hyperlipidemia. 5. Acute kidney injury. 6. Multiple wounds were noted. Skin care per Surgery and protocol. 7. The patient has history of dementia. 8. History of dysphagia. 9. Aspiration risk. 10. Contractures. 11. Weakness. 12. Dementia. 13. Pre-glaucoma. 14. Depression. 15. Continue treatment per primary consultants. 16. No known allergies. 17. Social history is negative. 18. Family history is noncontributory. 19. MAR was noted. 20. Case was discussed with RN. 21. Case was discussed with Dr. Connolly. Subjective Constitutional: Denies: fever HEENT: Denies: congestion Respiratory: Denies: shortness of breath Cardiovascular: Denies: chest pain Gastrointestinal/Abdominal: Denies: nausea, vomiting, diarrhea Genitourinary: Reports: other - no duggan Neurologic: Denies: headache Psychiatric: Denies: depression Skin: Denies: rash Hematologic: Denies: bleeding Musculoskeletal: Denies: pain Allergies: Coded Allergies: No Known Allergies (Unverified , 08/20/18) Objective Vital Signs Last 24 Hour Vital Signs Date Time Temp Pulse Resp B/P (MAP) Pulse Ox O2 Delivery O2 Flow Rate FiO2 09/12/18 14:00 100.4 76 22 122/68 (86) 98 09/12/18 13:27 100.0 09/12/18 13:00 81 20 137/63 (87) 100 09/12/18 12:00 80 09/12/18 12:00 Nasal Cannula 2.0 09/12/18 12:00 101.7 74 19 118/55 (76) 100 09/12/18 11:00 76 21 116/50 (72) 100 09/12/18 10:00 84 19 127/62 (83) 100 09/12/18 09:00 79 17 146/93 (110) 100 09/12/18 08:00 Nasal Cannula 2.0 09/12/18 08:00 100.4 75 17 129/78 (95) 100 09/12/18 08:00 73 09/12/18 07:00 70 21 136/99 (111) 100 09/12/18 06:00 70 21 136/99 (111) 100 09/12/18 05:00 77 22 118/63 (81) 100 09/12/18 04:00 73 09/12/18 04:00 Nasal Cannula 2.0 09/12/18 04:00 99.3 69 19 120/70 (87) 99 09/12/18 03:00 71 16 126/55 (78) 99 09/12/18 02:00 68 22 92/51 (65) 99 09/12/18 01:00 70 16 111/65 (80) 100 09/12/18 00:00 99.0 72 19 97/49 (65) 100 09/12/18 00:00 77 09/12/18 00:00 Nasal Cannula 2.0 09/11/18 23:00 72 19 99/47 (64) 100 09/11/18 22:00 73 17 143/70 (94) 100 09/11/18 21:00 99.5 77 15 116/71 (86) 100 09/11/18 20:27 133/65 09/11/18 20:00 70 09/11/18 20:00 100.5 75 21 133/75 (94) 100 09/11/18 20:00 Nasal Cannula 2.0 09/11/18 19:00 72 24 148/74 (98) 100 09/11/18 18:00 77 18 130/64 (86) 100 09/11/18 17:00 71 18 120/61 (80) 100 09/11/18 16:00 98.5 80 18 123/68 (86) 100 09/11/18 16:00 Nasal Cannula 2.0 09/11/18 16:00 72 Height (Feet): 5 Height (Inches): 5.00 Weight (Pounds): 112 General Appearance: no acute distress HEENT: normocephalic, atraumatic, anicteric, mucous membranes moist Respiratory/Chest: crackles/rales, rhonchi - bilaterally Cardiovascular: normal rate, regular rhythm, no gallop/murmur, no JVD Abdomen: normal bowel sounds, soft, non tender, no organomegaly, non distended Genitourinary: other Extremities: no cyanosis Skin: no rash Neurologic/Psychiatric: scientific investigator II-XII grossly normal, alert, responsive Lymphatic: no neck adenopathy Musculoskeletal: no effusion Objective COMPARISON: Chest radiograph on 09/10/2018 FINDINGS: Hardware: Interval placement of an enteric tube which terminates in the region of the gastric antrum. Lungs/pleura: Slightly increased patchy opacity in the left lung. Decreased left pleural effusion. Mild elevation of the right hemidiaphragm. Heart/mediastinum: Normal. No cardiomegaly. Chest x-ray - 09/12/18 - Soft tissues: Unremarkable. Bones: No acute fracture. Degenerative changes of the visualized left acromioclavicular joints. Upper abdomen: Normal. IMPRESSION: Slightly increased patchy opacity in the left lung. Decreased left pleural effusion. Interval placement of an enteric tube which terminates in the region of the gastric antrum. Microbiology Date/Time Source Procedure Growth Status 09/09/18 16:40 Blood Blood Culture - Preliminary NO GROWTH AFTER 48 HOURS Resulted 09/09/18 16:30 Blood Blood Culture - Preliminary NO GROWTH AFTER 48 HOURS Resulted 09/10/18 16:25 Sputum Induced Gram Stain - Final Resulted 09/10/18 16:25 Sputum Culture - Preliminary YEAST Usual Upper Respiratory Deloris Resulted 09/09/18 16:30 Nasal Nares MRSA Culture - Final Staphylococcus Aureus - Mrsa Complete 09/09/18 17:10 Urine,Clean Catch Urine Culture - Final Complete 09/09/18 16:30 Rectum VRE Culture - Final NO VANCOMYCIN RESISTANT ENTEROCOCCUS ... Complete 09/09/18 16:30 Rectum - Final NO CARBAPENEM-RESISTANT ENTEROBACTERI... Complete Laboratory Tests Test 09/12/18 05:00 09/12/18 09:25 White Blood Count 10.7 K/UL (4.8-10.8) Red Blood Count 3.00 M/UL (4.70-6.10) L Hemoglobin 9.5 G/DL (14.2-18.0) L Hematocrit 28.9 % (42.0-52.0) L Mean Corpuscular Volume 96 FL (80-99) Mean Corpuscular Hemoglobin 31.5 PG (27.0-31.0) H Mean Corpuscular Hemoglobin Concent 32.8 G/DL (32.0-36.0) Red Cell Distribution Width 13.0 % (11.6-14.8) Platelet Count 151 K/UL (150-450) Mean Platelet Volume 9.9 FL (6.5-10.1) Neutrophils (%) (Auto) 81.5 % (45.0-75.0) H Lymphocytes (%) (Auto) 14.5 % (20.0-45.0) L Monocytes (%) (Auto) 2.2 % (1.0-10.0) Eosinophils (%) (Auto) 1.6 % (0.0-3.0) Basophils (%) (Auto) 0.3 % (0.0-2.0) Urine Eosinophils None seen (NONE SEEN) Sodium Level 149 MMOL/L (136-145) H Potassium Level 3.2 MMOL/L (3.5-5.1) L Chloride Level 117 MMOL/L (98-107) H Carbon Dioxide Level 20 MMOL/L (21-32) L Anion Gap 12 mmol/L (5-15) Blood Urea Nitrogen 31 mg/dL (7-18) H Creatinine 1.6 MG/DL (0.55-1.30) H Estimat Glomerular Filtration Rate mL/min (>60) Glucose Level 95 MG/DL (74-106) Uric Acid 2.8 MG/DL (2.6-7.2) Calcium Level 8.4 MG/DL (8.5-10.1) L Phosphorus Level 2.1 MG/DL (2.5-4.9) L Magnesium Level 2.0 MG/DL (1.8-2.4) Total Bilirubin 1.0 MG/DL (0.2-1.0) Aspartate Amino Transf (AST/SGOT) 65 U/L (15-37) H Alanine Aminotransferase (ALT/SGPT) 71 U/L (12-78) Alkaline Phosphatase 104 U/L (46-116) Total Creatine Kinase 965 U/L (26-308) H C-Reactive Protein, Quantitative 34.6 mg/dL (0.00-0.90) H Pro-B-Type Natriuretic Peptide 2211 pg/mL (0-125) H Total Protein 5.9 G/DL (6.4-8.2) L Albumin 2.1 G/DL (3.4-5.0) L Globulin 3.8 g/dL Albumin/Globulin Ratio 0.6 (1.0-2.7) L Random Vancomycin Level 11.5 ug/mL Current Medications Medications (Trade) Dose Ordered Sig/Altagracia Route PRN Reason Start Time Stop Time Status Last Admin Dose Admin Acetaminophen (Tylenol) 1,000 mg Q6H PRN NG Mild Pain/Temp > 100.5 09/11/18 20:00 10/11/18 19:59 09/12/18 12:57 Chlorhexidine Gluconate (Corazon-Hex 2%) 1 applic DAILY@2000 TOPIC 09/10/18 20:00 10/10/18 19:59 09/11/18 20:23 Dextrose 1,000 ml @ 75 mls/hr [id number] IV 09/12/18 14:30 10/12/18 14:29 09/12/18 14:25 Dextrose (Dextrose 50%) 25 ml Q30M PRN IV Hypoglycemia 09/10/18 10:45 10/10/18 10:44 Dextrose (Dextrose 50%) 50 ml Q30M PRN IV Hypoglycemia 09/10/18 10:45 10/10/18 10:44 Famotidine (Pepcid I.v.) 20 mg DAILY IVP 09/09/18 21:00 10/09/18 20:59 09/12/18 08:46 Heparin Sodium (Porcine) (Heparin 5000 units/ml) 5,000 units EVERY 12 HOURS SUBQ 09/09/18 21:00 10/09/18 20:59 09/12/18 08:22 Insulin Aspart (NovoLOG) Q5H SUBQ 09/10/18 12:00 10/10/18 11:59 09/12/18 14:20 Metoclopramide HCl (Reglan) 10 mg Q6H PRN IVP Nausea & Vomiting 09/12/18 10:00 10/12/18 09:59 09/12/18 10:23 Norepinephrine Bitartrate 4 mg/ Dextrose 250 ml @ 0 mls/hr Q24H IV 09/09/18 20:30 10/09/18 20:29 Piperacillin Sod/ Tazobactam Sod 3.375 gm/Sodium Chloride 110 ml @ 27.5 mls/hr Q8H IVPB 09/12/18 09:00 09/19/18 08:59 09/12/18 08:47 Potassium Phosphate 30 mm/ Sodium Chloride 285 ml @ 47.5 mls/hr ONCE ONCE IV 09/12/18 09:45 09/12/18 15:44 09/12/18 10:23 Vancomycin HCl (Vanco rx to dose) 1 ea DAILY PRN MISC Per rx protocol 09/09/18 21:00 10/09/18 20:59 Vancomycin HCl 1 gm/Dextrose 275 ml @ 183.708 mls/hr Q24H IVPB 09/12/18 11:00 09/17/18 10:59 09/12/18 11:51 Bonny Rincon MD Sep 12, 2018 15:37
--- NOTE | 2018-09-12 15:52 | General Progress Note ---
Assessment/Plan Assessment/Plan: Assessment - shock - TF intolerance - Hiccups - DM - OBS Recommendations - change Reglan to ATC - Change H2B to BID - Hold Feeds overnight - retry in am - elevate HOB Subjective Allergies: Coded Allergies: No Known Allergies (Unverified , 08/20/18) Subjective d/w RN significant Hiccups on PRN reglan and qd H2B Objective Last 24 Hour Vital Signs Date Time Temp Pulse Resp B/P (MAP) Pulse Ox O2 Delivery O2 Flow Rate FiO2 09/12/18 15:00 69 21 110/68 (82) 99 09/12/18 14:00 100.4 76 22 122/68 (86) 98 09/12/18 13:27 100.0 09/12/18 13:00 81 20 137/63 (87) 100 09/12/18 12:00 80 09/12/18 12:00 Nasal Cannula 2.0 09/12/18 12:00 101.7 74 19 118/55 (76) 100 09/12/18 11:00 76 21 116/50 (72) 100 09/12/18 10:00 84 19 127/62 (83) 100 09/12/18 09:00 79 17 146/93 (110) 100 09/12/18 08:00 Nasal Cannula 2.0 09/12/18 08:00 100.4 75 17 129/78 (95) 100 09/12/18 08:00 73 09/12/18 07:00 70 21 136/99 (111) 100 09/12/18 06:00 70 21 136/99 (111) 100 09/12/18 05:00 77 22 118/63 (81) 100 09/12/18 04:00 73 09/12/18 04:00 Nasal Cannula 2.0 09/12/18 04:00 99.3 69 19 120/70 (87) 99 09/12/18 03:00 71 16 126/55 (78) 99 09/12/18 02:00 68 22 92/51 (65) 99 09/12/18 01:00 70 16 111/65 (80) 100 09/12/18 00:00 99.0 72 19 97/49 (65) 100 09/12/18 00:00 77 09/12/18 00:00 Nasal Cannula 2.0 09/11/18 23:00 72 19 99/47 (64) 100 09/11/18 22:00 73 17 143/70 (94) 100 09/11/18 21:00 99.5 77 15 116/71 (86) 100 09/11/18 20:27 133/65 09/11/18 20:00 70 09/11/18 20:00 100.5 75 21 133/75 (94) 100 09/11/18 20:00 Nasal Cannula 2.0 09/11/18 19:00 72 24 148/74 (98) 100 09/11/18 18:00 77 18 130/64 (86) 100 09/11/18 17:00 71 18 120/61 (80) 100 09/11/18 16:00 98.5 80 18 123/68 (86) 100 09/11/18 16:00 Nasal Cannula 2.0 09/11/18 16:00 72 Intake and Output 09/11/18 09/12/18 19:00 07:00 Intake Total 2091.666 ml 1900 ml Output Total 1101 ml 810 ml Balance 990.666 ml 1090 ml Intake Free Water 200 ml 200 ml IV Total 1751.666 ml 1500 ml Tube Feeding 140 ml 200 ml Output Urine Total 1100 ml 810 ml Stool Total 1 ml # Bowel Movements 2 Laboratory Tests 09/12/18 05:00: White Blood Count 10.7, Red Blood Count 3.00L, Hemoglobin 9.5L, Hematocrit 28.9L , Mean Corpuscular Volume 96, Mean Corpuscular Hemoglobin 31.5H, Mean Corpuscular Hemoglobin Concent 32.8, Red Cell Distribution Width 13.0, Platelet Count 151, Mean Platelet Volume 9.9, Neutrophils (%) (Auto) 81.5H, Lymphocytes ( %) (Auto) 14.5L, Monocytes (%) (Auto) 2.2, Eosinophils (%) (Auto) 1.6, Basophils (%) (Auto) 0.3, Urine Eosinophils None seen, Sodium Level 149H, Potassium Level 3.2L, Chloride Level 117H, Carbon Dioxide Level 20L, Anion Gap 12, Blood Urea Nitrogen 31H, Creatinine 1.6H, Estimat Glomerular Filtration Rate , Glucose Level 95, Uric Acid 2.8, Calcium Level 8.4L, Phosphorus Level 2.1L, Magnesium Level 2.0, Total Bilirubin 1.0, Aspartate Amino Transf (AST/SGOT ) 65H, Alanine Aminotransferase (ALT/SGPT) 71, Alkaline Phosphatase 104, Total Creatine Kinase 965H, C-Reactive Protein, Quantitative 34.6H, Pro-B-Type Natriuretic Peptide 2211H, Total Protein 5.9L, Albumin 2.1L, Globulin 3.8, Albumin/Globulin Ratio 0.6L 09/12/18 09:25: Random Vancomycin Level 11.5 Height (Feet): 5 Height (Inches): 5.00 Weight (Pounds): 112 Objective Thin man NCAT supple CTA RRR abd soft No edema Alex Ann MD Sep 12, 2018 15:52
--- NOTE | 2018-09-12 16:17 | NUR ---
NURSE NOTES: Femoral TLC d/c w/o complications or signs of bleeding. Pressure held on site for 10min. No signs of distress noted. Will continue to monitor pt.
[2018-09-12] MEDS: Metoclopramide 10mg/2ml Inj IVP SCH ×2 (16:42→21:04)
[2018-09-12] MEDS ORDERED: Tubing IV Secondary IV ONE (16:45)
[2018-09-12] MEDS ORDERED: NS 275ml ONE (16:45)
--- NOTE | 2018-09-12 18:40 | NUR ---
NURSE NOTES: Pt repositioned in bed. No signs of distress noted. F/C bag emptied. Will continue to monitor.
--- NOTE | 2018-09-12 19:20 | NUR ---
NURSE NOTES: Pt just had BM, this time noted to be liquid.
--- NOTE | 2018-09-12 19:32 | NUR ---
HAND-OFF: Report given to ANTOINETTE Burger. Pt in stable condition.
--- NOTE | 2018-09-12 19:40 | NUR ---
NURSE NOTES: Report received from ANTOINETTE Gutierrez. Patient opens eyes spontaneously, moans to pain. Sinus rhythm on the monitor. On Room air, O2 sat 100%. NGT at left nare, placement rechecked per auscultation. Glucerna 1.5 at 30ml/hr at goal. Feeding currently on hold because of the hiccup. Manriquez catheter F 16 connected to urimeter. Dark malachi. Right femoral TLC was d/c'ed. Right wrist 20G, left forearm 22G, both patent. On D5W at 75ml/hr. Head of bed elevated. Bed locked and in low position. Bed alarm on. Call light within reach. Will continue to monitor.
--- NOTE | 2018-09-12 22:00 | NUR ---
NURSE NOTES: Pt's resting in bed, in no acute distress. VS stable. Will continue to monitor.
[2018-09-13] VITALS (18 sets, daily range): BP systolic 108–134; BP diastolic 55–88
--- NOTE | 2018-09-13 | NUR ---
NURSE NOTES: Pt's resting in bed, in no acute distress. VS stable. Will continue to monitor
[2018-09-13] MEDS: Piperacillin/Tazobactam 3.375 GM in NS 110 ML IVPB SCH ×3 (01:55→16:17)
--- NOTE | 2018-09-13 02:00 | NUR ---
NURSE NOTES: Pt's resting in bed, in no acute distress. VS stable. Will continue to monitor.
--- NOTE | 2018-09-13 04:00 | NUR ---
NURSE NOTES: Pt's resting in bed, in no acute distress. VS stable. Will continue to monitor.
[2018-09-13] MEDS: NovoLOG Insulin Flexpen SUBQ SCH ×5 (05:00→20:58)
[2018-09-13] MEDS: Metoclopramide 10mg/2ml Inj IVP SCH ×4 (05:05→21:12)
--- NOTE | 2018-09-13 06:00 | NUR ---
NURSE NOTES: Pt's resting in bed, in no acute distress. VS stable. Will continue to monitor.
[2018-09-13 07:02] LABS: BASOPHILS % (AUTO) 0.7 % (0.0-2.0); EOSINOPHILS % (AUTO) 1.7 % (0.0-3.0); HEMOGLOBIN 9.6 G/DL (14.2-18.0); LYMPHOCYTES % (AUTO) 16.4 % (20.0-45.0); MEAN CORPUSCULAR VOLUME 95 FL (80-99); MONOCYTES % (AUTO) 4.3 % (1.0-10.0); NEUTROPHILS % (AUTO) 76.9 % (45.0-75.0); PLATELET COUNT 164 K/UL (150-450); RED BLOOD COUNT 3.05 M/UL (4.70-6.10); RED CELL DISTRIBUTION WIDTH 12.3 % (11.6-14.8); WHITE BLOOD COUNT 9.4 K/UL (4.8-10.8)
[2018-09-13 07:19] LABS: ALANINE AMINOTRANSFERASE 65 U/L (12-78); ALBUMIN/GLOBULIN RATIO 0.5 (1.0-2.7); ALKALINE PHOSPHATASE 116 U/L (46-116); ANION GAP 11 mmol/L (5-15); ASPARTATE AMINO TRANSFERASE 49 U/L (15-37); BILIRUBIN,TOTAL 1.2 MG/DL (0.2-1.0); BLOOD UREA NITROGEN 14 mg/dL (7-18); CALCIUM 8.4 MG/DL (8.5-10.1); CARBON DIOXIDE 19 MMOL/L (21-32); CHLORIDE 115 MMOL/L (98-107); CREATINE KINASE 481 U/L (26-308); CREATININE 1.3 MG/DL (0.55-1.30); PHOSPHORUS 2.3 MG/DL (2.5-4.9); SODIUM 147 MMOL/L (136-145)
--- NOTE | 2018-09-13 07:20 | NUR ---
HAND-OFF: Report given to ANTOINETTE Finnegan.
[2018-09-13 07:21] LABS: BILIRUBIN,DIRECT 0.4 MG/DL (0.0-0.3); POTASSIUM 2.7 MMOL/L (3.5-5.1)
--- NOTE | 2018-09-13 07:25 | NUR ---
NURSE NOTES: Report received from Tao RN. Pt asleep but easily arousable. Pt alert and oriented x1, yak[place] speaking. Pt connected to cardiac care nurse, SR. Pt on room air saturating 100%. NGT to glucerna 1.5 at 30 cc/hr. Manriquez noted and intact with clear yellow urine to gravity. Multiple sites of redness on lower extremities, pt on p200 mattress. RFA 22 G and LH 18 G connected to D5W @ 75 cc/hr. Safety measures in place with bed locked in lowest position, side rails x 3 up and bed alarm on. Will continue to monitor and continue plan of care.
[2018-09-13] MEDS: Heparin 5000 units/ml inj SUBQ SCH ×2 (09:06→21:00)
--- NOTE | 2018-09-13 09:53 | NUR ---
NURSE NOTES: Pt turned and repositioned. Pt mumbling in [place]. Having hiccups intermittently VSS. Will continue to monitor.
[2018-09-13] MEDS ORDERED: D5 1/2NS 1000ml IV ONE (09:56)
[2018-09-13] MEDS ORDERED: NS 275ml ONE (09:56)
[2018-09-13] MEDS ORDERED: Tubing IV Secondary IV ONE (09:56)
[2018-09-13] MEDS ORDERED: Potassium Phosphate 30 MM in NS 275 ML IV ONE (10:00)
--- NOTE | 2018-09-13 10:36 | NUR ---
RD ASSESSMENT & RECOMMENDATIONS SEE CARE ACTIVITY FOR COMPLETE ASSESSMENT DAILY ESTIMATED NEEDS: Needs based on Wt loss, wound/ 53kg 30-35 kcals/kg 7558-8126 total kcals 1.25-1.5 g protein/kg 66-79 g total protein 25-30 mL/kg 1681-1406 total fluid mLs NUTRITION DIAGNOSIS: * Swallowing difficulty R/T dysphagia, decreased cognitive fxn as evidenced by EDITORIAL SPECIALIST recommends NPO at this time, on NGT feeds. * Increased kcal/prot intake needs R/T wt loss, wound healing as evidenced by pt admitted w/ possible significant wt loss of 10 pounds/7.9% wt loss in <1 mo, w/ wound photos, not yet evaluated. * Altered nutrition related lab values R/T ARF, dehydration, diabetes as evidenced by elev Na (162-> 147), elev BUN (114-> now wnl), elev Creat (8.3->4.7), elev BGs (203 197- now improved), elev A1C 6.3. (CURRENT TF: Glucerna 1.5 @30ml) ENTERAL NUTRITION RECOMMENDATIONS: Glucerna 1.2 @ 56ml/hr x 24 hrs to provide 1344ml, 1613kcal, 80g prot, 1082ml free water * Advance 10ml q 4-6 hrs as tolerated to goal rate of 56ml/hr x 24 hrs * HOB over 30 degrees/ water flush per MD ADDITIONAL RECOMMENDATIONS: * Per [facility], HT=63", UB=724ase (on 08/30/18) * Monitor renal fxn- improving at this time * Monitor lytes w/ TF, replete as needed * F/up wound eval -> rec to add Lemuel 1pkt BID .
--- NOTE | 2018-09-13 10:49 | NUR ---
SWALLOW STATUS: SUBJECTIVE: PATIENT IS ALERT BUT NOT INITIATING COMMUNICATION NOR FOLLOWING COMMANDS MOST COMMANDS. DID IMITATE AT FEW WORDS THAT MEDICAL ACCOUNTING CLERK SAID IN [place]. ROOM AIR IN ICU. HAS 12 FR NGT WITH GLUCERNA. UPDATES: NURSE NOTES: Report received from Tao CURRY. Pt asleep but easily arousable. Pt alert and oriented x1, slovak speaking. Pt connected to electronic device monitor, SR. Pt on room air saturating 100%. NGT to glucerna 1.5 at 30 cc/hr. Service Date:09/12/18 Location:ICU Procedure: XRAY Chest 1v CLINICAL HISTORY: INFECTION TECHNIQUE: Frontal view of the chest. COMPARISON: Chest radiograph on 09/10/2018 FINDINGS: Hardware: Interval placement of an enteric tube which terminates in the region of the gastric antrum. Lungs/pleura: Slightly increased patchy opacity in the left lung. Decreased left pleural effusion. Mild elevation of the right hemidiaphragm. Heart/mediastinum: Normal. No cardiomegaly. Soft tissues: Unremarkable.Bones: No acute fracture. Degenerative changes of the visualized left acromioclavicular joints. IMPRESSION: Slightly increased patchy opacity in the left lung. Decreased left pleural effusion. Interval placement of an enteric tube which terminates in the region of the gastric antrum. OBJECTIVE/ASSESSMENT: ORAL CARE TRAINING/EDUCATION: DONALD CURRY, EDUCATED/TRAINED IN ORAL CARE BUT PATIENT NOT ALWAYS RECEPTIVE. REASSESS ORAL SKILLS - DID NOT MOVE LIPS TO COMMAND. OPENED MOUTH BUT DID NOT MOVE TONGUE TO COMMAND EVEN IN [place]. REASSESS FOR PO AND/OR MOD BARIUM SWALLOW STUDY READINESS. GIVEN PO TRIAL OF TSP NECTAR THICK WATER. NO ORAL SPILLAGE, OROPHARYNEGAL TRANSIT TIMES 2 SECONDS, COUGHED (WEAK) AFTER SWALLOW WITH FAIR HYOLARYNGEAL EXCURSION. NO NEED FOR ORAL SUCTION BUT HAD HICCOUGHING EARLIER PER RN. DISCUSSED WITH MD ANTOINETTE, GI, AND RAMSES SHELDON, THAT HE IS NOT READY FOR PO INTAKE NOR MOD BARIUM SWALLOW STUDY AT THIS TIME. RAMSES WAS INTERESTED IN THE RISKS AND BENEFITS OF THE PEG. SHE WAS REFERRED TO DR HINDS THE GI PHYSICIAN. THE PATIENT HAS OBS AND ADVANCE DEMENTIA AND CVA HISTORY AND HAS QUESTIONABLE BENEFIT FROM PEG IF FAMILY DECIDES TO CONTINUE WITH PO INTAKE AFTER MOD BARIUM SWALLOW STUDY FOR ORAL GRATIFICATION AND QUALITY OF LIFE PURPOSES. HE HAS PNA NOW AND IT IS LIKELY ASPIRATION RELATED AND HE WILL LIKELY HAVE SLOW AND INADEQUATE INTAKE. 3 OPTIONS OF PO ONLY (COMFORT EATING/DRINKING) AND NO PEG, NO PO AND ONLY PEG, AND PEG AND ORAL GRAT DISCUSSED WITH FAMILY. PLAN: CONTINUE WITH NONORAL FEEDINGS AND ORAL CARE FOR NOW. CONTINUE TO MONITOR FOR MOD BARIUM SWALLOW STUDY READINESS (NO MBSS ON September AVAILABLE). ADDITIONAL SHORT TERM GOAL: PATIENT WILL MOVE TONGUE WITH FULL ROM IN ALL DIRECTIONS WITH MAX CUES FROM MEDICAL ACCOUNTING CLERK IN [place] 80% OF THE TIME.
--- NOTE | 2018-09-13 11:30 | NUR ---
NURSE NOTES:WOUND CARE NOTES:Pt presented on admission with multiple pressure injuries. DTPI R trochanteric.Base of wound maroon and indurated (L)2cm x (W)5cm. Periwound without erythema or fluctuance. No evidence of skin breakdown sacrum or L trochanter. Non-blanchable erythema with fluctuance noted to medial R heel (L)4.5cm x (W)4.5cm. DTPI noted to lateral L heel .Base of wound maroon and fluctuant(L)3.5cm x (W)3cm.Periwound fluctuant but pink. Reabsorbing blood blister dorso/flexor R foot(L)1cm x (W)0.5cm.Base of wound purple fluctuant in center with dry borders. Non-blanchable erythema with fluctuance noted to distal/lateral R foot (L)1cm, x (W)1cm. Lateral R 5th metatarsal maroon and fluctuant.(L)1cm x (W)1cm. Non-blanchable erythema without fluctuance or induration lateral R malleolus(L)0.5cm x (W)0.5cm .Periwound without erythema. Tx.Plan: Apply Cavilon Skin Barrier to R trochanter. Cover with Optifoam drsg. Change every 7 days and prn. Apply Cavilon Skin Barrier to L trochanter. Cover with Optifoam drsg.Change every 7 days and prn. Apply Moisture Barrier to Sacrum. Cover with Optifoam drsg. Change every 7 days and prn. Apply Cavilon Skin Barrier distal/lateral R foot, lateral R 5th metatarsal,lateral R malleolus,dorso/flexorR foot and R heel. Cover each site with Optifoam drsg. Change every 7 days and PRN. Apply Cavilon Skin Barrier to L heel. Cover with Optifoam drsg. Change every 7 days and prn. Reposition at least every 2hours or as tolerated. Place pillow between knees. Off-load heels with pillow. APM/RAVINDER Mattress overlay.
--- NOTE | 2018-09-13 11:45 | NUR ---
NURSE NOTES: Kasia woundcare nurse here to assess pt. Wounds on lower extremities and right trochanter determined to be DTI, dressings changed. VSS and no acute distress. Will continue to monitor.
--- NOTE | 2018-09-13 11:57 | GI Progress Note ---
Assessment/Plan Problems: (1) Encounter for PEG (percutaneous endoscopic gastrostomy) ICD Codes: Z43.1 - Encounter for attention to gastrostomy SNOMED: 042363511, 619169432 (2) Severe malnutrition ICD Codes: E43 - Unspecified severe protein-calorie malnutrition SNOMED: 82189912 (3) Dehydration ICD Codes: E86.0 - Dehydration SNOMED: 55584882 (4) Electrolyte imbalance ICD Codes: E87.8 - Other disorders of electrolyte and fluid balance, not elsewhere classified SNOMED: 438596486 (5) Failure to thrive syndrome, adult ICD Codes: R62.7 - Failure to thrive syndrome, adult SNOMED: 692813546 Status: stable Status Narrative Discussed with Dr. Romero Assessment/Plan Assessment - shock - TF intolerance - Hiccups - DM - OBS Recommendations - change Reglan to ATC - Change H2B to BID - Hold Feeds overnight - retry in am - elevate HOB - PEG to be scheduled if family agrees, discussed the risks and benefits with stepdaughter. Awaiting decision. The patient was seen and examined at bedside and all new and available data was reviewed in the patients chart. I agree with the above findings, impression and plan. (Patient seen earlier today. Signature stamp does not reflect patient encounter time.). - Ramiro Romero MD Subjective Subjective Limited Discussed with RN Objective Last 24 Hour Vital Signs Date Time Temp Pulse Resp B/P (MAP) Pulse Ox O2 Delivery O2 Flow Rate FiO2 09/13/18 11:00 72 19 113/64 (80) 100 09/13/18 10:00 75 18 134/72 (92) 100 09/13/18 09:00 75 24 108/57 (74) 100 09/13/18 08:00 99.9 76 24 112/57 (75) 100 09/13/18 08:00 Nasal Cannula 2.0 09/13/18 08:00 71 09/13/18 07:00 70 15 128/68 (88) 100 09/13/18 07:00 64 16 128/68 (88) 100 09/13/18 06:00 66 15 119/59 (79) 100 09/13/18 05:00 74 19 130/58 (82) 100 09/13/18 04:00 76 09/13/18 04:00 98.8 76 14 119/65 (83) 100 09/13/18 04:00 Nasal Cannula 2.0 09/13/18 03:00 81 19 131/68 (89) 100 09/13/18 02:00 65 19 129/82 (98) 09/13/18 01:00 73 14 127/66 (86) 09/13/18 00:00 Nasal Cannula 2.0 09/13/18 00:00 80 13 129/62 (84) 09/13/18 00:00 74 09/12/18 23:00 79 15 132/68 (89) 100 09/12/18 22:00 98.8 74 15 132/68 (89) 100 09/12/18 21:00 78 18 128/76 (93) 100 09/12/18 20:00 83 17 129/78 (95) 100 09/12/18 20:00 80 09/12/18 19:21 Nasal Cannula 2.0 09/12/18 19:00 72 15 117/59 (78) 100 09/12/18 18:00 98.3 60 18 106/70 (82) 100 09/12/18 18:00 60 18 106/70 (82) 100 09/12/18 17:00 69 20 107/48 (67) 100 09/12/18 16:00 67 21 100/55 (70) 100 09/12/18 16:00 80 09/12/18 16:00 Nasal Cannula 2.0 09/12/18 15:00 69 21 110/68 (82) 99 09/12/18 14:00 100.4 76 22 122/68 (86) 98 09/12/18 13:27 100.0 09/12/18 13:00 81 20 137/63 (87) 100 09/12/18 12:00 80 09/12/18 12:00 Nasal Cannula 2.0 09/12/18 12:00 101.7 74 19 118/55 (76) 100 Intake and Output 09/12/18 09/13/18 19:00 07:00 Intake Total 2420.916 ml 1070.0 ml Output Total 1710 ml 1200 ml Balance 710.916 ml -130.0 ml Intake Free Water 200 ml IV Total 2130.916 ml 1010.0 ml Tube Feeding 90 ml 60 ml Output Urine Total 1710 ml 1200 ml # Bowel Movements 2 1 Laboratory Tests Test 7/1/19 04:45 White Blood Count 9.4 K/UL (4.8-10.8) Red Blood Count 3.05 M/UL (4.70-6.10) L Hemoglobin 9.6 G/DL (14.2-18.0) L Hematocrit 29.0 % (42.0-52.0) L Mean Corpuscular Volume 95 FL (80-99) Mean Corpuscular Hemoglobin 31.6 PG (27.0-31.0) H Mean Corpuscular Hemoglobin Concent 33.2 G/DL (32.0-36.0) Red Cell Distribution Width 12.3 % (11.6-14.8) Platelet Count 164 K/UL (150-450) Mean Platelet Volume 10.0 FL (6.5-10.1) Neutrophils (%) (Auto) 76.9 % (45.0-75.0) H Lymphocytes (%) (Auto) 16.4 % (20.0-45.0) L Monocytes (%) (Auto) 4.3 % (1.0-10.0) Eosinophils (%) (Auto) 1.7 % (0.0-3.0) Basophils (%) (Auto) 0.7 % (0.0-2.0) Sodium Level 147 MMOL/L (136-145) H Potassium Level 2.7 MMOL/L (3.5-5.1) *L Chloride Level 115 MMOL/L (98-107) H Carbon Dioxide Level 19 MMOL/L (21-32) L Anion Gap 11 mmol/L (5-15) Blood Urea Nitrogen 14 mg/dL (7-18) Creatinine 1.3 MG/DL (0.55-1.30) Estimat Glomerular Filtration Rate mL/min (>60) Glucose Level 112 MG/DL (74-106) H Uric Acid 1.7 MG/DL (2.6-7.2) L Calcium Level 8.4 MG/DL (8.5-10.1) L Phosphorus Level 2.3 MG/DL (2.5-4.9) L Magnesium Level 1.7 MG/DL (1.8-2.4) L Total Bilirubin 1.2 MG/DL (0.2-1.0) H Direct Bilirubin 0.4 MG/DL (0.0-0.3) H Aspartate Amino Transf (AST/SGOT) 49 U/L (15-37) H Alanine Aminotransferase (ALT/SGPT) 65 U/L (12-78) Alkaline Phosphatase 116 U/L (46-116) Total Creatine Kinase 481 U/L (26-308) H C-Reactive Protein, Quantitative 33.5 mg/dL (0.00-0.90) H Pro-B-Type Natriuretic Peptide 2514 pg/mL (0-125) H Total Protein 6.3 G/DL (6.4-8.2) L Albumin 2.0 G/DL (3.4-5.0) L Globulin 4.3 g/dL Albumin/Globulin Ratio 0.5 (1.0-2.7) L Height (Feet): 5 Height (Inches): 5.00 Weight (Pounds): 112 General Appearance: no apparent distress Cardiovascular: normal rate Abdominal Exam: other - NGT Stevo Milligan NP Sep 13, 2018 11:57
--- NOTE | 2018-09-13 12:13 | Nephrology Progress Note ---
Assessment/Plan Problem List: (1) BRYANT (acute kidney injury) (2) Rhabdomyolysis (3) Septic shock (4) Failure to thrive syndrome, adult (5) Pneumonia Assessment Acute Renal Failure: ? Drug induced Was on Lisinopril and Celebrex Rhabdo: High CPK Dehydration Shock Sepsis / Pneumonia / UTI Malnutrition Plan Hydrate with D5 K and Phos Iv as needed start NGT feeding SS Insulin off pressors antibiotics monitor renal parameters per orders Subjective ROS Limited/Unobtainable: No Constitutional: Reports: malaise, weakness Objective Objective Last 24 Hour Vital Signs Date Time Temp Pulse Resp B/P (MAP) Pulse Ox O2 Delivery O2 Flow Rate FiO2 09/13/18 11:00 72 19 113/64 (80) 100 09/13/18 10:00 75 18 134/72 (92) 100 09/13/18 09:00 75 24 108/57 (74) 100 09/13/18 08:00 99.9 76 24 112/57 (75) 100 09/13/18 08:00 Nasal Cannula 2.0 09/13/18 08:00 71 09/13/18 07:00 70 15 128/68 (88) 100 09/13/18 07:00 64 16 128/68 (88) 100 09/13/18 06:00 66 15 119/59 (79) 100 09/13/18 05:00 74 19 130/58 (82) 100 09/13/18 04:00 76 09/13/18 04:00 98.8 76 14 119/65 (83) 100 09/13/18 04:00 Nasal Cannula 2.0 09/13/18 03:00 81 19 131/68 (89) 100 09/13/18 02:00 65 19 129/82 (98) 09/13/18 01:00 73 14 127/66 (86) 09/13/18 00:00 Nasal Cannula 2.0 09/13/18 00:00 80 13 129/62 (84) 09/13/18 00:00 74 09/12/18 23:00 79 15 132/68 (89) 100 09/12/18 22:00 98.8 74 15 132/68 (89) 100 09/12/18 21:00 78 18 128/76 (93) 100 09/12/18 20:00 83 17 129/78 (95) 100 09/12/18 20:00 80 09/12/18 19:21 Nasal Cannula 2.0 09/12/18 19:00 72 15 117/59 (78) 100 09/12/18 18:00 98.3 60 18 106/70 (82) 100 09/12/18 18:00 60 18 106/70 (82) 100 09/12/18 17:00 69 20 107/48 (67) 100 09/12/18 16:00 67 21 100/55 (70) 100 09/12/18 16:00 80 09/12/18 16:00 Nasal Cannula 2.0 09/12/18 15:00 69 21 110/68 (82) 99 09/12/18 14:00 100.4 76 22 122/68 (86) 98 09/12/18 13:27 100.0 09/12/18 13:00 81 20 137/63 (87) 100 Intake and Output 09/12/18 09/13/18 19:00 07:00 Intake Total 2420.916 ml 1070.0 ml Output Total 1710 ml 1200 ml Balance 710.916 ml -130.0 ml Intake Free Water 200 ml IV Total 2130.916 ml 1010.0 ml Tube Feeding 90 ml 60 ml Output Urine Total 1710 ml 1200 ml # Bowel Movements 2 1 Laboratory Tests 09/13/18 04:45: White Blood Count 9.4, Red Blood Count 3.05L, Hemoglobin 9.6L, Hematocrit 29.0L , Mean Corpuscular Volume 95, Mean Corpuscular Hemoglobin 31.6H, Mean Corpuscular Hemoglobin Concent 33.2, Red Cell Distribution Width 12.3, Platelet Count 164, Mean Platelet Volume 10.0, Neutrophils (%) (Auto) 76.9H, Lymphocytes (%) (Auto) 16.4L, Monocytes (%) (Auto) 4.3, Eosinophils (%) (Auto) 1.7, Basophils (%) (Auto) 0.7, Sodium Level 147H, Potassium Level 2.7*L, Chloride Level 115H, Carbon Dioxide Level 19L, Anion Gap 11, Blood Urea Nitrogen 14, Creatinine 1.3, Estimat Glomerular Filtration Rate , Glucose Level 112H, Uric Acid 1.7L, Calcium Level 8.4L, Phosphorus Level 2.3L, Magnesium Level 1.7L, Total Bilirubin 1.2H, Direct Bilirubin 0.4H, Aspartate Amino Transf (AST/SGOT) 49H, Alanine Aminotransferase (ALT/SGPT) 65, Alkaline Phosphatase 116, Total Creatine Kinase 481H, C-Reactive Protein, Quantitative 33.5H, Pro-B-Type Natriuretic Peptide 2514H, Total Protein 6.3L, Albumin 2.0L, Globulin 4.3, Albumin/Globulin Ratio 0.5L Height (Feet): 5 Height (Inches): 5.00 Weight (Pounds): 112 General Appearance: no apparent distress EENT: other - NGT Cardiovascular: normal rate Respiratory/Chest: decreased breath sounds Abdomen: soft Minh Phipps MD Sep 13, 2018 12:13
[2018-09-13] MEDS: Vancomycin 1gm/D5W 275ml IVPB SCH ×2 (12:45)
--- NOTE | 2018-09-13 13:24 | Pulmonolgy Critical Care Note ---
Critical Care - Asmt/Plan Assessment/Plan: ASSESSMENT: The patient is a 72-year-old male, jail resident, with underlying history of dementia, presenting with septic shock, likely secondary to urinary source with BRYANT, lactic acidosis, anion gap acidosis, and abnormal LFTs. PROBLEM LIST: 1. Septic shock - NOW HEMODYNAMICALLY STABLE 2. UTI with urosepsis 3. BRYANT - RESOLVED 4. Anion-gap metabolic acidosis. 5. Lactic acidosis. 6. Abnormal LFTs, likely shock liver. 7. Hypertension. 8. Diabetes. 9. Dementia. 10. Anemia. TREATMENT PLAN: -Abx per ID -PRN O2 -Monitor volumes and renal function -TF's -DVT Px Hep SQ -FC -TTF CCT 25. Critical Care - Objective Last 24 Hour Vital Signs Date Time Temp Pulse Resp B/P (MAP) Pulse Ox O2 Delivery O2 Flow Rate FiO2 09/13/18 13:00 79 18 120/55 (76) 100 09/13/18 12:00 Nasal Cannula 2.0 09/13/18 12:00 99.0 77 19 118/65 (82) 100 09/13/18 12:00 73 09/13/18 11:00 72 19 113/64 (80) 100 09/13/18 10:00 75 18 134/72 (92) 100 09/13/18 09:00 75 24 108/57 (74) 100 09/13/18 08:00 99.9 76 24 112/57 (75) 100 09/13/18 08:00 Nasal Cannula 2.0 09/13/18 08:00 71 09/13/18 07:00 70 15 128/68 (88) 100 09/13/18 07:00 64 16 128/68 (88) 100 09/13/18 06:00 66 15 119/59 (79) 100 09/13/18 05:00 74 19 130/58 (82) 100 09/13/18 04:00 76 09/13/18 04:00 98.8 76 14 119/65 (83) 100 09/13/18 04:00 Nasal Cannula 2.0 09/13/18 03:00 81 19 131/68 (89) 100 09/13/18 02:00 65 19 129/82 (98) 09/13/18 01:00 73 14 127/66 (86) 09/13/18 00:00 Nasal Cannula 2.0 09/13/18 00:00 80 13 129/62 (84) 09/13/18 00:00 74 09/12/18 23:00 79 15 132/68 (89) 100 09/12/18 22:00 98.8 74 15 132/68 (89) 100 09/12/18 21:00 78 18 128/76 (93) 100 09/12/18 20:00 83 17 129/78 (95) 100 09/12/18 20:00 80 09/12/18 19:21 Nasal Cannula 2.0 09/12/18 19:00 72 15 117/59 (78) 100 09/12/18 18:00 98.3 60 18 106/70 (82) 100 09/12/18 18:00 60 18 106/70 (82) 100 09/12/18 17:00 69 20 107/48 (67) 100 09/12/18 16:00 67 21 100/55 (70) 100 09/12/18 16:00 80 09/12/18 16:00 Nasal Cannula 2.0 09/12/18 15:00 69 21 110/68 (82) 99 09/12/18 14:00 100.4 76 22 122/68 (86) 98 09/12/18 13:27 100.0 Status: awake Condition: improving HEENT: atraumatic, normocephalic Lungs: clear Heart: HR/BP stable Abdomen: soft, non-tender, active bowel sounds Extremities: no C/C/E Micro: Microbiology Date/Time Source Procedure Growth Status 09/10/18 16:25 Sputum Induced Gram Stain - Final Resulted 09/10/18 16:25 Sputum Culture - Preliminary Malu Species Usual Upper Respiratory Deloris Resulted Accucheck: 132 Blood Sugars: BS controlled Critical Care - Subjective ROS Limited/Unobtainable: Yes ICU Day: 4 Interval Events: No cough, no SOB, no FC Condition: improving IV Access: central EKG Rhythm: Sinus Rhythm Tube Feeding Amount: 30 I&O: Intake and Output 09/12/18 09/13/18 19:00 07:00 Intake Total 2420.916 ml 1070.0 ml Output Total 1710 ml 1200 ml Balance 710.916 ml -130.0 ml Intake Free Water 200 ml IV Total 2130.916 ml 1010.0 ml Tube Feeding 90 ml 60 ml Output Urine Total 1710 ml 1200 ml # Bowel Movements 2 1 Alexandr Feliciano MD Sep 13, 2018 13:24
--- NOTE | 2018-09-13 14:30 | NUR ---
NURSE NOTES: Pt turned and repositioned. No acute distress. Will continue to monitor.
--- NOTE | 2018-09-13 15:31 | Surgery Progress Note ---
Surgery Progress Note Subjective Symptoms: improved Objective Last 24 Hour Vital Signs Date Time Temp Pulse Resp B/P (MAP) Pulse Ox O2 Delivery O2 Flow Rate FiO2 09/13/18 15:00 77 14 110/64 (79) 100 09/13/18 14:00 79 20 118/59 (78) 100 09/13/18 13:00 79 18 120/55 (76) 100 09/13/18 12:00 Nasal Cannula 2.0 09/13/18 12:00 99.0 77 19 118/65 (82) 100 09/13/18 12:00 73 09/13/18 11:00 72 19 113/64 (80) 100 09/13/18 10:00 75 18 134/72 (92) 100 09/13/18 09:00 75 24 108/57 (74) 100 09/13/18 08:00 99.9 76 24 112/57 (75) 100 09/13/18 08:00 Nasal Cannula 2.0 09/13/18 08:00 71 09/13/18 07:00 70 15 128/68 (88) 100 09/13/18 07:00 64 16 128/68 (88) 100 09/13/18 06:00 66 15 119/59 (79) 100 09/13/18 05:00 74 19 130/58 (82) 100 09/13/18 04:00 76 09/13/18 04:00 98.8 76 14 119/65 (83) 100 09/13/18 04:00 Nasal Cannula 2.0 09/13/18 03:00 81 19 131/68 (89) 100 09/13/18 02:00 65 19 129/82 (98) 09/13/18 01:00 73 14 127/66 (86) 09/13/18 00:00 Nasal Cannula 2.0 09/13/18 00:00 80 13 129/62 (84) 09/13/18 00:00 74 09/12/18 23:00 79 15 132/68 (89) 100 09/12/18 22:00 98.8 74 15 132/68 (89) 100 09/12/18 21:00 78 18 128/76 (93) 100 09/12/18 20:00 83 17 129/78 (95) 100 09/12/18 20:00 80 6/30/19 19:21 Nasal Cannula 2.0 09/12/18 19:00 72 15 117/59 (78) 100 09/12/18 18:00 98.3 60 18 106/70 (82) 100 09/12/18 18:00 60 18 106/70 (82) 100 09/12/18 17:00 69 20 107/48 (67) 100 09/12/18 16:00 67 21 100/55 (70) 100 09/12/18 16:00 80 09/12/18 16:00 Nasal Cannula 2.0 I&O Intake and Output 09/12/18 09/13/18 19:00 07:00 Intake Total 2420.916 ml 1070.0 ml Output Total 1710 ml 1200 ml Balance 710.916 ml -130.0 ml Intake Free Water 200 ml IV Total 2130.916 ml 1010.0 ml Tube Feeding 90 ml 60 ml Output Urine Total 1710 ml 1200 ml # Bowel Movements 2 1 Dressing: saturated Wound: clean Cardiovascular: RSR Respiratory: clear, decreased breath sounds Abdomen: soft, present bowel sounds, non-distended Extremities: no cyanosis Laboratory Tests Test 09/13/18 04:45 White Blood Count 9.4 K/UL (4.8-10.8) Red Blood Count 3.05 M/UL (4.70-6.10) L Hemoglobin 9.6 G/DL (14.2-18.0) L Hematocrit 29.0 % (42.0-52.0) L Mean Corpuscular Volume 95 FL (80-99) Mean Corpuscular Hemoglobin 31.6 PG (27.0-31.0) H Mean Corpuscular Hemoglobin Concent 33.2 G/DL (32.0-36.0) Red Cell Distribution Width 12.3 % (11.6-14.8) Platelet Count 164 K/UL (150-450) Mean Platelet Volume 10.0 FL (6.5-10.1) Neutrophils (%) (Auto) 76.9 % (45.0-75.0) H Lymphocytes (%) (Auto) 16.4 % (20.0-45.0) L Monocytes (%) (Auto) 4.3 % (1.0-10.0) Eosinophils (%) (Auto) 1.7 % (0.0-3.0) Basophils (%) (Auto) 0.7 % (0.0-2.0) Sodium Level 147 MMOL/L (136-145) H Potassium Level 2.7 MMOL/L (3.5-5.1) *L Chloride Level 115 MMOL/L (98-107) H Carbon Dioxide Level 19 MMOL/L (21-32) L Anion Gap 11 mmol/L (5-15) Blood Urea Nitrogen 14 mg/dL (7-18) Creatinine 1.3 MG/DL (0.55-1.30) Estimat Glomerular Filtration Rate mL/min (>60) Glucose Level 112 MG/DL (74-106) H Uric Acid 1.7 MG/DL (2.6-7.2) L Calcium Level 8.4 MG/DL (8.5-10.1) L Phosphorus Level 2.3 MG/DL (2.5-4.9) L Magnesium Level 1.7 MG/DL (1.8-2.4) L Total Bilirubin 1.2 MG/DL (0.2-1.0) H Direct Bilirubin 0.4 MG/DL (0.0-0.3) H Aspartate Amino Transf (AST/SGOT) 49 U/L (15-37) H Alanine Aminotransferase (ALT/SGPT) 65 U/L (12-78) Alkaline Phosphatase 116 U/L (46-116) Total Creatine Kinase 481 U/L (26-308) H C-Reactive Protein, Quantitative 33.5 mg/dL (0.00-0.90) H Pro-B-Type Natriuretic Peptide 2514 pg/mL (0-125) H Total Protein 6.3 G/DL (6.4-8.2) L Albumin 2.0 G/DL (3.4-5.0) L Globulin 4.3 g/dL Albumin/Globulin Ratio 0.5 (1.0-2.7) L Plan Problems: (1) Decubitus skin ulcer Assessment & Plan: Patient presented with multiple decubitus ulcers and wounds. He is identified to have heel, lower extremity, sacral wounds. None look actively infected. Please refer to photos for details. We will continue with care while in hospital. bilateral heel erythema, bilateral trochanteric erythema. turn q2h off load pressure foam dressings q3 days will monitor to ensure no breakdown (2) Pneumonia (3) BRYANT (acute kidney injury) (4) Septic shock Assessment & Plan: DAILY ESTIMATED NEEDS: Needs based on Wt loss, wound/ 53kg 30-35 kcals/kg 9046-2614 total kcals 1.25-1.5 g protein/kg 66-79 g total protein 25-30 mL/kg 3823-7488 total fluid mLs NUTRITION DIAGNOSIS: * Swallowing difficulty R/T dysphagia, decreased cognitive fxn as evidenced by [employer] MAKER recommends NPO at this time, w/ an order for NGT insertion. * Increased kcal/prot intake needs R/T wt loss, wound healing as evidenced by pt admitted w/ possible significant wt loss of 10 pounds/7.9% wt loss in <1 mo, w/ wound photos, not yet evaluated. * Altered nutrition related lab values R/T ARF, dehydration, diabetes as evidenced by elev Na (162), elev Creat (8.3->4.7), elev BGs (203 197), elev A1C 6.3. CURRENT DIET:NPO ENTERAL NUTRITION RECOMMENDATIONS: Glucerna 1.2 @ 56ml/hr x 24 hrs to provide 1344ml, 1613kcal, 80g prot, 1082ml free water * W/ GI access, initiate Glucerna 1.2 @ 26ml/hr x 6 hrs * Advance 10ml q 4-6 hrs as tolerated to goal rate of 56ml/hr x 24 hrs * HOB over 30 degrees/ water flush per MD ADDITIONAL RECOMMENDATIONS: * Per SNF, HT=63", DZ=691pem (on 08/30/18) * Monitor renal fxn- improving at this time * Monitor lytes w/ TF, replete as needed * F/up wound eval -> rec to add Lemuel 1pkt BID (5) Failure to thrive syndrome, adult Assessment & Plan: Needs nutritional supplementation NG Tube for now for feeds and meds start tube feeds (6) Rhabdomyolysis Reji Guy Sep 13, 2018 15:31
--- NOTE | 2018-09-13 17:46 | NUR ---
HAND-OFF: Report given to Lori Hernandez RN.
--- NOTE | 2018-09-13 17:50 | NUR ---
NURSE NOTES: Patient transferred from ICU and Received report from Sivan/RN, Patient is awake, AO x1-2. No belonging. Bed in lowest position and locked, Call light within reach. Will continue plan of care.
[2018-09-13] MEDS ORDERED: Acetaminophen 650mg/20.3ml NG PRN (17:51)
--- NOTE | 2018-09-13 19:30 | NUR ---
NURSING NOTES Received patient from ANTOINETTE Sandoval. Patient awake in bed, alert & oriented x1, no acute distress noted. Breathing on RM, unlabored. Not able to make needs known. No NGT in, per RN patient pulled it out. Right forearm IV 22G and left hand IV 20 G patent, no s/sx of infiltration, phlebitis. Manriquez cath draining to gravity, patent. Patient on low airloss mattress for appropriate wound management. Bed lowest position, brakes on, call light within reach, will continue to monitor and reassess.
--- NOTE | 2018-09-13 19:58 | NUR ---
HAND-OFF: Report given to Henrietta/RN, Patient is in stable condition. Endorsed plan of care.
--- NOTE | 2018-09-13 22:14 | NUR ---
NURSE NOTES: Patient noted to have a temperature of 100.2. Ice compresses applied.
--- NOTE | 2018-09-13 22:30 | NUR ---
NURSE NOTES: Inserted 18 Fr NG tube at 50 cm. Will order abdominal x-ray to confirm placement.
--- NOTE | 2018-09-13 23:27 | General Progress Note ---
Assessment/Plan Status: stable Assessment/Plan: 72 year old male admitted for septic shock 2/2 pna vs uti Septic shock likley 2/2 PNA vs UTI -Cont Vanc, Zosyn -f/u blood cultures -Monitor respiratory status -s/p 3L NS -ID Consult appreciated -Pulm/Crit consult appreciated -surgery consult appreciated -DC femoral line -transferred to tele #BRYANT - improved #Poss rhabdomyolysis -Likley 2/2 shock vs drug induced, CK elevated poss rhabdo -trend CK -nephrology consult appreciated -CTM -avoid nephrotoxic medications #Hypernatremia likley 2/2 poor PO intake -cont NS for fluid resus then transition to D5w -D5 started -CTM -Nephrology consult appreciated #HypoKalemia #Hypomagnesemia -repleted -CTM #dysphagia #Failure to thrive -s/p NGT -poss PEG pending family decision -GI consult appreciated #Full code Subjective Date patient seen: Sep 13, 2018 Allergies: Coded Allergies: No Known Allergies (Unverified , 08/20/18) Subjective No acute overnight evetns, Poss PEG, pending family decision, downgraded to tele. Objective Last 24 Hour Vital Signs Date Time Temp Pulse Resp B/P (MAP) Pulse Ox O2 Delivery O2 Flow Rate FiO2 09/13/18 16:00 99.2 79 16 109/88 (95) 100 09/13/18 16:00 77 09/13/18 16:00 Nasal Cannula 2.0 09/13/18 15:00 77 14 110/64 (79) 100 09/13/18 14:00 79 20 118/59 (78) 100 09/13/18 13:00 79 18 120/55 (76) 100 09/13/18 12:00 Nasal Cannula 2.0 09/13/18 12:00 99.0 77 19 118/65 (82) 100 09/13/18 12:00 73 09/13/18 11:00 72 19 113/64 (80) 100 09/13/18 10:00 75 18 134/72 (92) 100 09/13/18 09:00 75 24 108/57 (74) 100 09/13/18 08:00 99.9 76 24 112/57 (75) 100 09/13/18 08:00 Nasal Cannula 2.0 09/13/18 08:00 71 09/13/18 07:00 70 15 128/68 (88) 100 09/13/18 07:00 64 16 128/68 (88) 100 09/13/18 06:00 66 15 119/59 (79) 100 09/13/18 05:00 74 19 130/58 (82) 100 09/13/18 04:00 76 09/13/18 04:00 98.8 76 14 119/65 (83) 100 09/13/18 04:00 Nasal Cannula 2.0 09/13/18 03:00 81 19 131/68 (89) 100 09/13/18 02:00 65 19 129/82 (98) 09/13/18 01:00 73 14 127/66 (86) 09/13/18 00:00 Nasal Cannula 2.0 09/13/18 00:00 80 13 129/62 (84) 09/13/18 00:00 74 Intake and Output 09/12/18 09/13/18 18:59 06:59 Intake Total 2315.916 ml 1090.0 ml Output Total 1720 ml 1210 ml Balance 595.916 ml -120.0 ml Intake Free Water 150 ml 50 ml IV Total 2055.916 ml 1010.0 ml Tube Feeding 110 ml 30 ml Output Urine Total 1720 ml 1210 ml # Bowel Movements 1 2 Laboratory Tests 09/13/18 04:45: White Blood Count 9.4, Red Blood Count 3.05L, Hemoglobin 9.6L, Hematocrit 29.0L , Mean Corpuscular Volume 95, Mean Corpuscular Hemoglobin 31.6H, Mean Corpuscular Hemoglobin Concent 33.2, Red Cell Distribution Width 12.3, Platelet Count 164, Mean Platelet Volume 10.0, Neutrophils (%) (Auto) 76.9H, Lymphocytes (%) (Auto) 16.4L, Monocytes (%) (Auto) 4.3, Eosinophils (%) (Auto) 1.7, Basophils (%) (Auto) 0.7, Sodium Level 147H, Potassium Level 2.7*L, Chloride Level 115H, Carbon Dioxide Level 19L, Anion Gap 11, Blood Urea Nitrogen 14, Creatinine 1.3, Estimat Glomerular Filtration Rate , Glucose Level 112H, Uric Acid 1.7L, Calcium Level 8.4L, Phosphorus Level 2.3L, Magnesium Level 1.7L, Total Bilirubin 1.2H, Direct Bilirubin 0.4H, Aspartate Amino Transf (AST/SGOT) 49H, Alanine Aminotransferase (ALT/SGPT) 65, Alkaline Phosphatase 116, Total Creatine Kinase 481H, C-Reactive Protein, Quantitative 33.5H, Pro-B-Type Natriuretic Peptide 2514H, Total Protein 6.3L, Albumin 2.0L, Globulin 4.3, Albumin/Globulin Ratio 0.5L Height (Feet): 5 Height (Inches): 5.00 Weight (Pounds): 112 Objective General Appearance: WD/WN, lethargic, confused Lines, tubes and drains: peripheral, central line HEENT: normocephalic, atraumatic, ng tube in place Neck: non-tender Respiratory/Chest: chest wall non-tender, no accessory muscle use Cardiovascular/Chest: normal peripheral pulses Abdomen: normal bowel sounds, non tender Neurologic: disoriented Kimberlyn Bonner MD Sep 13, 2018 23:27
[2018-09-14] VITALS: BP 136/79
--- NOTE | 2018-09-14 | NUR ---
NURSE NOTES: Left a message for Zonia Mills, patient's stepdaughter, regarding consent for EGD and possible PEG placement procedure later today. No response as of now. Will reattempt to call at a later time.
--- NOTE | 2018-09-14 00:40 | NUR ---
NURSE NOTES: Received call from Radiology department that patient's abdominal x-ray results will be ready within 10 to 15 minutes.
[2018-09-14] MEDS: Piperacillin/Tazobactam 3.375 GM in NS 110 ML IVPB SCH ×3 (01:34→16:38)
[2018-09-14] MEDS ORDERED: Acetaminophen 650mg/20.3ml NG PRN ×2 (01:45→02:00)
[2018-09-14] MEDS: NovoLOG Insulin Flexpen SUBQ SCH ×5 (02:05→21:17)
[2018-09-14] MEDS: Metoclopramide 10mg/2ml Inj IVP SCH ×4 (03:59→21:14)
[2018-09-14 04:00] VITALS: BP 137/77
[2018-09-14 06:50] LABS: BASOPHILS % (AUTO) 0.4 % (0.0-2.0); EOSINOPHILS % (AUTO) 1.4 % (0.0-3.0); HEMATOCRIT 26.9 % (42.0-52.0); HEMOGLOBIN 8.8 G/DL (14.2-18.0); LYMPHOCYTES % (AUTO) 21.7 % (20.0-45.0); MEAN CORPUSCULAR VOLUME 96 FL (80-99); MONOCYTES % (AUTO) 5.7 % (1.0-10.0); NEUTROPHILS % (AUTO) 70.8 % (45.0-75.0); PLATELET COUNT 173 K/UL (150-450); RED BLOOD COUNT 2.81 M/UL (4.70-6.10); RED CELL DISTRIBUTION WIDTH 12.8 % (11.6-14.8); WHITE BLOOD COUNT 6.6 K/UL (4.8-10.8)
[2018-09-14 06:52] LABS: INR 1.2 (0.9-1.1)
--- NOTE | 2018-09-14 07:07 | NUR ---
HAND-OFF: Report given to ANTOINETTE Sandoval. Stable condition
--- NOTE | 2018-09-14 07:10 | NUR ---
NURSE NOTES: Received report from Henrietta/RN, Patient is asleep, Lying semi-esteves, resting comfortably. No acute distress/SOB noted at this time. Checked IV, patent, no bleeding or infiltration noted. Manriquez catheter draining well to gravity. Patient on low air loss mattress for wound prevention. Bed in lowest position and locked. Call light within reach. Will continue plan of care.
[2018-09-14 07:37] LABS: ALANINE AMINOTRANSFERASE 91 U/L (12-78); ALBUMIN 1.8 G/DL (3.4-5.0); ALBUMIN/GLOBULIN RATIO 0.4 (1.0-2.7); ALKALINE PHOSPHATASE 131 U/L (46-116); ANION GAP 12 mmol/L (5-15); ASPARTATE AMINO TRANSFERASE 82 U/L (15-37); BLOOD UREA NITROGEN 13 mg/dL (7-18); CALCIUM 8.2 MG/DL (8.5-10.1); CARBON DIOXIDE 20 MMOL/L (21-32); CHLORIDE 119 MMOL/L (98-107); CREATINE KINASE 189 U/L (26-308); CREATININE 1.3 MG/DL (0.55-1.30); PHOSPHORUS 2.9 MG/DL (2.5-4.9); POTASSIUM 3.3 MMOL/L (3.5-5.1); SODIUM 151 MMOL/L (136-145)
[2018-09-14 08:00] VITALS: BP 133/71
--- NOTE | 2018-09-14 09:10 | NUR ---
RADIOLOGY DEPARTMENT, CHEST X-RAY DONE.-P.DYE
[2018-09-14] MEDS: Heparin 5000 units/ml inj SUBQ SCH ×2 (09:34→20:54)
--- NOTE | 2018-09-14 10:12 | NUR ---
CASE MANAGEMENT:REVIEW 09/14/18 SI: SEPTIC SHOCK. HYPERNATREMIA 100.5 99 20 136/79 94% ON 2L/NC H/H-8.8/26.9 NA+151 K-3.3 IS: IV VANCOMYCIN Q24 IV ZOSYN Q8HRS IV KCL Q1HRS X3 BAGS IVF@50/HR HEPARIN SQ Q12 DCP: [facility]: POSSIBLE PEG PENDING FAMILIES DECISION
--- NOTE | 2018-09-14 10:34 | GI Progress Note ---
Assessment/Plan Problems: (1) Encounter for PEG (percutaneous endoscopic gastrostomy) ICD Codes: Z43.1 - Encounter for attention to gastrostomy SNOMED: 392032801, 599913954 (2) Severe malnutrition ICD Codes: E43 - Unspecified severe protein-calorie malnutrition SNOMED: 58907584 (3) Dehydration ICD Codes: E86.0 - Dehydration SNOMED: 26855707 (4) Electrolyte imbalance ICD Codes: E87.8 - Other disorders of electrolyte and fluid balance, not elsewhere classified SNOMED: 477069390 (5) Failure to thrive syndrome, adult ICD Codes: R62.7 - Failure to thrive syndrome, adult SNOMED: 913937384 Status: unchanged Status Narrative Discussed with Dr. Romero. Assessment/Plan Assessment - shock - TF intolerance - Hiccups - DM - OBS Recommendations - Reglan to ATC - H2B BID - restart GTFs - elevate HOB - PEG to be scheduled if family agrees, discussed the risks and benefits with stepdaughter. Awaiting decision. The patient was seen and examined at bedside and all new and available data was reviewed in the patients chart. I agree with the above findings, impression and plan. (Patient seen earlier today. Signature stamp does not reflect patient encounter time.). - Ramiro Romero MD Subjective Subjective Limited Discussed with RN Objective Last 24 Hour Vital Signs Date Time Temp Pulse Resp B/P (MAP) Pulse Ox O2 Delivery O2 Flow Rate FiO2 09/14/18 08:00 98.4 70 19 133/71 (91) 96 09/14/18 04:00 98.4 81 19 137/77 (97) 94 09/14/18 04:00 81 09/14/18 02:32 98.4 09/14/18 00:00 89 09/14/18 00:00 100.5 99 20 136/79 (98) 94 09/13/18 21:00 Nasal Cannula 2.0 09/13/18 20:00 100.2 90 20 132/79 (96) 94 09/13/18 20:00 91 09/13/18 16:00 99.2 79 16 109/88 (95) 100 09/13/18 16:00 77 09/13/18 16:00 Nasal Cannula 2.0 09/13/18 15:00 77 14 110/64 (79) 100 09/13/18 14:00 79 20 118/59 (78) 100 09/13/18 13:00 79 18 120/55 (76) 100 09/13/18 12:00 Nasal Cannula 2.0 09/13/18 12:00 99.0 77 19 118/65 (82) 100 09/13/18 12:00 73 09/13/18 11:00 72 19 113/64 (80) 100 Intake and Output 09/13/18 09/14/18 19:00 07:00 Intake Total 795.000 ml 205.0 ml Output Total 500 ml 800 ml Balance 295.000 ml -595.0 ml IV Total 495.000 ml 205.0 ml Tube Feeding 300 ml Output Urine Total 500 ml 800 ml # Bowel Movements 2 Laboratory Tests Test 09/14/18 05:22 White Blood Count 6.6 K/UL (4.8-10.8) Red Blood Count 2.81 M/UL (4.70-6.10) L Hemoglobin 8.8 G/DL (14.2-18.0) L Hematocrit 26.9 % (42.0-52.0) L Mean Corpuscular Volume 96 FL (80-99) Mean Corpuscular Hemoglobin 31.5 PG (27.0-31.0) H Mean Corpuscular Hemoglobin Concent 32.8 G/DL (32.0-36.0) Red Cell Distribution Width 12.8 % (11.6-14.8) Platelet Count 173 K/UL (150-450) Mean Platelet Volume 9.7 FL (6.5-10.1) Neutrophils (%) (Auto) 70.8 % (45.0-75.0) Lymphocytes (%) (Auto) 21.7 % (20.0-45.0) Monocytes (%) (Auto) 5.7 % (1.0-10.0) Eosinophils (%) (Auto) 1.4 % (0.0-3.0) Basophils (%) (Auto) 0.4 % (0.0-2.0) Prothrombin Time 12.5 SEC (9.30-11.50) H Prothromb Time International Ratio 1.2 (0.9-1.1) H Activated Partial Thromboplast Time 36 SEC (23-33) H Sodium Level 151 MMOL/L (136-145) H Potassium Level 3.3 MMOL/L (3.5-5.1) L Chloride Level 119 MMOL/L (98-107) H Carbon Dioxide Level 20 MMOL/L (21-32) L Anion Gap 12 mmol/L (5-15) Blood Urea Nitrogen 13 mg/dL (7-18) Creatinine 1.3 MG/DL (0.55-1.30) Estimat Glomerular Filtration Rate mL/min (>60) Glucose Level 96 MG/DL (74-106) Calcium Level 8.2 MG/DL (8.5-10.1) L Phosphorus Level 2.9 MG/DL (2.5-4.9) Magnesium Level 2.2 MG/DL (1.8-2.4) Total Bilirubin 1.0 MG/DL (0.2-1.0) Aspartate Amino Transf (AST/SGOT) 82 U/L (15-37) H Alanine Aminotransferase (ALT/SGPT) 91 U/L (12-78) H Alkaline Phosphatase 131 U/L (46-116) H Total Creatine Kinase 189 U/L (26-308) C-Reactive Protein, Quantitative 33.3 mg/dL (0.00-0.90) H Pro-B-Type Natriuretic Peptide 1967 pg/mL (0-125) H Total Protein 6.2 G/DL (6.4-8.2) L Albumin 1.8 G/DL (3.4-5.0) L Globulin 4.4 g/dL Albumin/Globulin Ratio 0.4 (1.0-2.7) L Height (Feet): 5 Height (Inches): 5.00 Weight (Pounds): 144 General Appearance: no apparent distress Cardiovascular: normal rate Respiratory/Chest: normal breath sounds, no respiratory distress Abdominal Exam: normal bowel sounds, non tender, soft, other - NGT Extremities: non-tender Stevo Milligan NP Sep 14, 2018 10:34
[2018-09-14] MEDS: Vancomycin 1 GM in D5W 275 ML IVPB SCH (11:05)
[2018-09-14 12:00] VITALS: BP 143/90
--- NOTE | 2018-09-14 12:13 | Surgery Progress Note ---
Surgery Progress Note Subjective Additional Comments downgraded slowly improved no n/v/f/c pending family decision for peg which is recommended Objective Last 24 Hour Vital Signs Date Time Temp Pulse Resp B/P (MAP) Pulse Ox O2 Delivery O2 Flow Rate FiO2 09/14/18 08:00 98.4 70 19 133/71 (91) 96 09/14/18 04:00 98.4 81 19 137/77 (97) 94 09/14/18 04:00 81 09/14/18 02:32 98.4 09/14/18 00:00 89 09/14/18 00:00 100.5 99 20 136/79 (98) 94 09/13/18 21:00 Nasal Cannula 2.0 09/13/18 20:00 100.2 90 20 132/79 (96) 94 09/13/18 20:00 91 09/13/18 16:00 99.2 79 16 109/88 (95) 100 09/13/18 16:00 77 09/13/18 16:00 Nasal Cannula 2.0 09/13/18 15:00 77 14 110/64 (79) 100 09/13/18 14:00 79 20 118/59 (78) 100 09/13/18 13:00 79 18 120/55 (76) 100 I&O Intake and Output 09/13/18 09/14/18 19:00 07:00 Intake Total 795.000 ml 205.0 ml Output Total 500 ml 800 ml Balance 295.000 ml -595.0 ml IV Total 495.000 ml 205.0 ml Tube Feeding 300 ml Output Urine Total 500 ml 800 ml # Bowel Movements 2 Dressing: dry Wound: clean Cardiovascular: RSR Respiratory: clear Abdomen: soft, flat, present bowel sounds Extremities: cyanosis Laboratory Tests Test 09/14/18 05:22 White Blood Count 6.6 K/UL (4.8-10.8) Red Blood Count 2.81 M/UL (4.70-6.10) L Hemoglobin 8.8 G/DL (14.2-18.0) L Hematocrit 26.9 % (42.0-52.0) L Mean Corpuscular Volume 96 FL (80-99) Mean Corpuscular Hemoglobin 31.5 PG (27.0-31.0) H Mean Corpuscular Hemoglobin Concent 32.8 G/DL (32.0-36.0) Red Cell Distribution Width 12.8 % (11.6-14.8) Platelet Count 173 K/UL (150-450) Mean Platelet Volume 9.7 FL (6.5-10.1) Neutrophils (%) (Auto) 70.8 % (45.0-75.0) Lymphocytes (%) (Auto) 21.7 % (20.0-45.0) Monocytes (%) (Auto) 5.7 % (1.0-10.0) Eosinophils (%) (Auto) 1.4 % (0.0-3.0) Basophils (%) (Auto) 0.4 % (0.0-2.0) Prothrombin Time 12.5 SEC (9.30-11.50) H Prothromb Time International Ratio 1.2 (0.9-1.1) H Activated Partial Thromboplast Time 36 SEC (23-33) H Sodium Level 151 MMOL/L (136-145) H Potassium Level 3.3 MMOL/L (3.5-5.1) L Chloride Level 119 MMOL/L (98-107) H Carbon Dioxide Level 20 MMOL/L (21-32) L Anion Gap 12 mmol/L (5-15) Blood Urea Nitrogen 13 mg/dL (7-18) Creatinine 1.3 MG/DL (0.55-1.30) Estimat Glomerular Filtration Rate mL/min (>60) Glucose Level 96 MG/DL (74-106) Calcium Level 8.2 MG/DL (8.5-10.1) L Phosphorus Level 2.9 MG/DL (2.5-4.9) Magnesium Level 2.2 MG/DL (1.8-2.4) Total Bilirubin 1.0 MG/DL (0.2-1.0) Aspartate Amino Transf (AST/SGOT) 82 U/L (15-37) H Alanine Aminotransferase (ALT/SGPT) 91 U/L (12-78) H Alkaline Phosphatase 131 U/L (46-116) H Total Creatine Kinase 189 U/L (26-308) C-Reactive Protein, Quantitative 33.3 mg/dL (0.00-0.90) H Pro-B-Type Natriuretic Peptide 1967 pg/mL (0-125) H Total Protein 6.2 G/DL (6.4-8.2) L Albumin 1.8 G/DL (3.4-5.0) L Globulin 4.4 g/dL Albumin/Globulin Ratio 0.4 (1.0-2.7) L Plan Problems: (1) Decubitus skin ulcer Assessment & Plan: Patient presented with multiple decubitus ulcers and wounds. He is identified to have heel, lower extremity, sacral wounds. None look actively infected. Please refer to photos for details. We will continue with care while in hospital. bilateral heel erythema, bilateral trochanteric erythema. turn q2h off load pressure foam dressings q3 days will monitor to ensure no breakdown (2) Pneumonia (3) BRYANT (acute kidney injury) (4) Septic shock Assessment & Plan: DAILY ESTIMATED NEEDS: Needs based on Wt loss, wound/ 53kg 30-35 kcals/kg 0555-2352 total kcals 1.25-1.5 g protein/kg 66-79 g total protein 25-30 mL/kg 5022-3567 total fluid mLs NUTRITION DIAGNOSIS: * Swallowing difficulty R/T dysphagia, decreased cognitive fxn as evidenced by [employer] recommends NPO at this time, w/ an order for NGT insertion. * Increased kcal/prot intake needs R/T wt loss, wound healing as evidenced by pt admitted w/ possible significant wt loss of 10 pounds/7.9% wt loss in <1 mo, w/ wound photos, not yet evaluated. * Altered nutrition related lab values R/T ARF, dehydration, diabetes as evidenced by elev Na (162), elev Creat (8.3->4.7), elev BGs (203 197), elev A1C 6.3. CURRENT DIET:NPO ENTERAL NUTRITION RECOMMENDATIONS: Glucerna 1.2 @ 56ml/hr x 24 hrs to provide 1344ml, 1613kcal, 80g prot, 1082ml free water * W/ GI access, initiate Glucerna 1.2 @ 26ml/hr x 6 hrs * Advance 10ml q 4-6 hrs as tolerated to goal rate of 56ml/hr x 24 hrs * HOB over 30 degrees/ water flush per MD ADDITIONAL RECOMMENDATIONS: * Per SNF, HT=63", IB=978eql (on 08/30/18) * Monitor renal fxn- improving at this time * Monitor lytes w/ TF, replete as needed * F/up wound eval -> rec to add Lemuel 1pkt BID (5) Failure to thrive syndrome, adult Assessment & Plan: Needs nutritional supplementation NG Tube for now for feeds and meds tube feeds PEG (6) Rhabdomyolysis Reji Guy Sep 14, 2018 12:13
--- NOTE | 2018-09-14 12:24 | Diagnostic Imaging Report ---
Indication: NG tube placement Comparison: None Single view of the abdomen obtained Findings: NG tube is high and requires further advancement of the tube. The tip is in the stomach but the proximal port is above the EG junction. IMPRESSION: NG tube should be advanced further
--- NOTE | 2018-09-14 13:27 | Diagnostic Imaging Report ---
Indication: Dyspnea Comparison: 09/12/2018 A single view chest radiograph was obtained. Findings: Left pulmonary infiltrate again noted without change. NG tube again noted. Heart size is stable. IMPRESSION: No change from the prior examination.
--- NOTE | 2018-09-14 14:36 | Nephrology Progress Note ---
Assessment/Plan Problem List: (1) BRYANT (acute kidney injury) Assessment: eresolved (2) Rhabdomyolysis (3) Septic shock (4) Failure to thrive syndrome, adult (5) Pneumonia Assessment Acute Renal Failure: ? Drug induced Was on Lisinopril and Celebrex Rhabdo: High CPK Dehydration Shock Sepsis / Pneumonia / UTI Malnutrition Plan Hydrate with D5 K and Phos Iv as needed start NGT feeding SS Insulin off pressors antibiotics monitor renal parameters per orders Subjective ROS Limited/Unobtainable: No Constitutional: Reports: malaise, weakness Objective Objective Last 24 Hour Vital Signs Date Time Temp Pulse Resp B/P (MAP) Pulse Ox O2 Delivery O2 Flow Rate FiO2 09/14/18 12:00 98.9 83 20 143/90 (107) 96 09/14/18 12:00 86 09/14/18 09:00 Nasal Cannula 2.0 09/14/18 08:00 92 09/14/18 08:00 98.4 70 19 133/71 (91) 96 09/14/18 04:00 98.4 81 19 137/77 (97) 94 09/14/18 04:00 81 09/14/18 02:32 98.4 09/14/18 00:00 89 09/14/18 00:00 100.5 99 20 136/79 (98) 94 09/13/18 21:00 Nasal Cannula 2.0 09/13/18 20:00 100.2 90 20 132/79 (96) 94 09/13/18 20:00 91 09/13/18 16:00 99.2 79 16 109/88 (95) 100 09/13/18 16:00 77 09/13/18 16:00 Nasal Cannula 2.0 09/13/18 15:00 77 14 110/64 (79) 100 Intake and Output 09/13/18 09/14/18 19:00 07:00 Intake Total 795.000 ml 205.0 ml Output Total 500 ml 800 ml Balance 295.000 ml -595.0 ml IV Total 495.000 ml 205.0 ml Tube Feeding 300 ml Output Urine Total 500 ml 800 ml # Bowel Movements 2 Laboratory Tests 09/14/18 05:22: White Blood Count 6.6, Red Blood Count 2.81L, Hemoglobin 8.8L, Hematocrit 26.9L , Mean Corpuscular Volume 96, Mean Corpuscular Hemoglobin 31.5H, Mean Corpuscular Hemoglobin Concent 32.8, Red Cell Distribution Width 12.8, Platelet Count 173, Mean Platelet Volume 9.7, Neutrophils (%) (Auto) 70.8, Lymphocytes (% ) (Auto) 21.7, Monocytes (%) (Auto) 5.7, Eosinophils (%) (Auto) 1.4, Basophils ( %) (Auto) 0.4, Prothrombin Time 12.5H, Prothromb Time International Ratio 1.2H, Activated Partial Thromboplast Time 36H, Sodium Level 151H, Potassium Level 3.3L , Chloride Level 119H, Carbon Dioxide Level 20L, Anion Gap 12, Blood Urea Nitrogen 13, Creatinine 1.3, Estimat Glomerular Filtration Rate , Glucose Level 96, Calcium Level 8.2L, Phosphorus Level 2.9, Magnesium Level 2.2, Total Bilirubin 1.0, Aspartate Amino Transf (AST/SGOT) 82H, Alanine Aminotransferase ( ALT/SGPT) 91H, Alkaline Phosphatase 131H, Total Creatine Kinase 189, C-Reactive Protein, Quantitative 33.3H, Pro-B-Type Natriuretic Peptide 1967H, Total Protein 6.2L, Albumin 1.8L, Globulin 4.4, Albumin/Globulin Ratio 0.4L Height (Feet): 5 Height (Inches): 5.00 Weight (Pounds): 144 General Appearance: no apparent distress EENT: other - NGT Cardiovascular: normal rate Respiratory/Chest: decreased breath sounds Abdomen: distended Minh Phipps MD Sep 14, 2018 14:36
[2018-09-14 16:00] VITALS: BP 132/79
--- NOTE | 2018-09-14 17:42 | Infectious Diseases Prog Note ---
Assessment/Plan Assessment/Plan ASSESSMENT AND PLAN: 1. sepsis, shock, fevers, leukocytosis, sirs, pneumonia, ? uti, mrsa colonization - vancomycin and zosyn for now - day # 5 abx - monitor labs and chest x-ray - off pressors, low grade temps noted - continue tx per primary team and consultants 2. Intensive care unit care and supportive measures. 3. Anemia. 4. Hyperlipidemia. 5. Acute kidney injury. 6. Multiple wounds were noted. Skin care per Surgery and protocol. 7. The patient has history of dementia. 8. History of dysphagia. 9. Aspiration risk. 10. Contractures. 11. Weakness. 12. Dementia. 13. Pre-glaucoma. 14. Depression. 15. Continue treatment per primary consultants. 16. No known allergies. 17. Social history is negative. 18. Family history is noncontributory. 19. MAR was noted. 20. Case was discussed with RN. 21. Case was discussed with Dr. Connolly. Subjective Constitutional: Reports: fever - lgt , fatigue, other - lethargic, responsive HEENT: Reports: congestion - les Respiratory: Reports: shortness of breath - less Cardiovascular: Reports: other - no pressors ; Denies: chest pain Gastrointestinal/Abdominal: Denies: nausea, vomiting, diarrhea Genitourinary: Reports: other - + duggan Neurologic: Reports: other - weak, lethargic Psychiatric: Reports: other - NA Skin: Denies: rash Musculoskeletal: Denies: other - NA Allergies: Coded Allergies: No Known Allergies (Unverified , 08/20/18) Objective Vital Signs Last 24 Hour Vital Signs Date Time Temp Pulse Resp B/P (MAP) Pulse Ox O2 Delivery O2 Flow Rate FiO2 09/14/18 16:00 84 09/14/18 16:00 98.5 89 20 132/79 (96) 96 09/14/18 12:00 98.9 83 20 143/90 (107) 96 09/14/18 12:00 86 09/14/18 09:00 Nasal Cannula 2.0 09/14/18 08:00 92 09/14/18 08:00 98.4 70 19 133/71 (91) 96 09/14/18 04:00 98.4 81 19 137/77 (97) 94 09/14/18 04:00 81 09/14/18 02:32 98.4 09/14/18 00:00 89 09/14/18 00:00 100.5 99 20 136/79 (98) 94 09/13/18 21:00 Nasal Cannula 2.0 09/13/18 20:00 100.2 90 20 132/79 (96) 94 09/13/18 20:00 91 Height (Feet): 5 Height (Inches): 5.00 Weight (Pounds): 144 General Appearance: no acute distress, other - weak, lethargic, responsive HEENT: normocephalic, atraumatic, anicteric, mucous membranes moist Respiratory/Chest: crackles/rales, rhonchi - bilaterally Cardiovascular: normal rate, regular rhythm, no gallop/murmur, no JVD Abdomen: soft, non tender, no organomegaly, non distended Genitourinary: other - + feley - urine slt cloudy Extremities: no cyanosis Skin: no rash Neurologic/Psychiatric: paper novelty maker II-XII grossly normal, abnormal gait, responsive, normal mood/affect Lymphatic: no neck adenopathy Musculoskeletal: no effusion Objective COMPARISON: Chest radiograph on 09/10/2018 FINDINGS: Hardware: Interval placement of an enteric tube which terminates in the region of the gastric antrum. Lungs/pleura: Slightly increased patchy opacity in the left lung. Decreased left pleural effusion. Mild elevation of the right hemidiaphragm. Heart/mediastinum: Normal. No cardiomegaly. Chest x-ray - 09/12/18 - Soft tissues: Unremarkable. Bones: No acute fracture. Degenerative changes of the visualized left acromioclavicular joints. Upper abdomen: Normal. IMPRESSION: Slightly increased patchy opacity in the left lung. Decreased left pleural effusion. Interval placement of an enteric tube which terminates in the region of the gastric antrum. Chest x-ray - 09/14/18 - Procedure: XRAY Chest 1v Indication: Dyspnea Comparison: 09/12/2018 A single view chest radiograph was obtained. Findings: Left pulmonary infiltrate again noted without change. NG tube again noted. Heart size is stable. IMPRESSION: No change from the prior examination. Microbiology Date/Time Source Procedure Growth Status 09/09/18 16:40 Blood Blood Culture - Preliminary NO GROWTH AFTER 4 DAYS Resulted 09/10/18 16:25 Sputum Induced Gram Stain - Final Complete 09/10/18 16:25 Sputum Induced Sputum Culture - Final NORMAL UPPER RESPIRATORY ADRIANA PRESENT Complete 09/09/18 17:10 Urine,Clean Catch Urine Culture - Final Complete 09/09/18 16:30 Rectum VRE Culture - Final NO VANCOMYCIN RESISTANT ENTEROCOCCUS ... Complete 09/09/18 16:30 Rectum - Final NO CARBAPENEM-RESISTANT ENTEROBACTERI... Complete Laboratory Tests Test 09/14/18 05:22 White Blood Count 6.6 K/UL (4.8-10.8) Red Blood Count 2.81 M/UL (4.70-6.10) L Hemoglobin 8.8 G/DL (14.2-18.0) L Hematocrit 26.9 % (42.0-52.0) L Mean Corpuscular Volume 96 FL (80-99) Mean Corpuscular Hemoglobin 31.5 PG (27.0-31.0) H Mean Corpuscular Hemoglobin Concent 32.8 G/DL (32.0-36.0) Red Cell Distribution Width 12.8 % (11.6-14.8) Platelet Count 173 K/UL (150-450) Mean Platelet Volume 9.7 FL (6.5-10.1) Neutrophils (%) (Auto) 70.8 % (45.0-75.0) Lymphocytes (%) (Auto) 21.7 % (20.0-45.0) Monocytes (%) (Auto) 5.7 % (1.0-10.0) Eosinophils (%) (Auto) 1.4 % (0.0-3.0) Basophils (%) (Auto) 0.4 % (0.0-2.0) Prothrombin Time 12.5 SEC (9.30-11.50) H Prothromb Time International Ratio 1.2 (0.9-1.1) H Activated Partial Thromboplast Time 36 SEC (23-33) H Sodium Level 151 MMOL/L (136-145) H Potassium Level 3.3 MMOL/L (3.5-5.1) L Chloride Level 119 MMOL/L (98-107) H Carbon Dioxide Level 20 MMOL/L (21-32) L Anion Gap 12 mmol/L (5-15) Blood Urea Nitrogen 13 mg/dL (7-18) Creatinine 1.3 MG/DL (0.55-1.30) Estimat Glomerular Filtration Rate mL/min (>60) Glucose Level 96 MG/DL (74-106) Calcium Level 8.2 MG/DL (8.5-10.1) L Phosphorus Level 2.9 MG/DL (2.5-4.9) Magnesium Level 2.2 MG/DL (1.8-2.4) Total Bilirubin 1.0 MG/DL (0.2-1.0) Aspartate Amino Transf (AST/SGOT) 82 U/L (15-37) H Alanine Aminotransferase (ALT/SGPT) 91 U/L (12-78) H Alkaline Phosphatase 131 U/L (46-116) H Total Creatine Kinase 189 U/L (26-308) C-Reactive Protein, Quantitative 33.3 mg/dL (0.00-0.90) H Pro-B-Type Natriuretic Peptide 1967 pg/mL (0-125) H Total Protein 6.2 G/DL (6.4-8.2) L Total Protein (PEP) Pending Albumin 1.8 G/DL (3.4-5.0) L Albumin (PEP) Pending Globulin 4.4 g/dL Globulin (PEP) Pending Albumin/Globulin Ratio Pending [id number] Pending [id number] Pending Beta Globulins Pending Beta Gamma Globulin Pending PEP Abnormal Protein Bands Pending Protein Electrophoresis Interpret Pending Current Medications Medications (Trade) Dose Ordered Sig/Altagracia Route PRN Reason Start Time Stop Time Status Last Admin Dose Admin Acetaminophen (Tylenol) 999.015 mg Q6H PRN NG Mild Pain/Temp > 100.5 09/14/18 02:00 10/13/18 17:50 09/14/18 01:57 Dextrose 1,000 ml @ 50 mls/hr Q20H IV 09/14/18 09:30 10/14/18 09:29 09/14/18 09:40 Dextrose (Dextrose 50%) 25 ml Q30M PRN IV Hypoglycemia 09/13/18 17:45 10/10/18 10:44 Dextrose (Dextrose 50%) 50 ml Q30M PRN IV Hypoglycemia 09/13/18 17:45 10/10/18 10:44 Famotidine (Pepcid I.v.) 20 mg EVERY 12 HOURS IVP 09/13/18 21:00 10/09/18 20:59 7/2/19 09:31 Heparin Sodium (Porcine) (Heparin 5000 units/ml) 5,000 units EVERY 12 HOURS SUBQ 09/13/18 21:00 10/09/18 20:59 09/14/18 09:34 Insulin Aspart (NovoLOG) Q5H SUBQ 09/13/18 20:00 10/10/18 11:59 09/14/18 16:48 Metoclopramide HCl (Reglan) 10 mg Q6H IVP 09/13/18 22:00 10/12/18 09:59 09/14/18 16:38 Piperacillin Sod/ Tazobactam Sod 3.375 gm/Sodium Chloride 110 ml @ 27.5 mls/hr Q8H IVPB 09/14/18 01:00 09/19/18 08:59 09/14/18 16:38 Quetiapine Fumarate (SEROquel) 25 mg Q6H PRN ORAL agitation 09/14/18 14:45 10/14/18 14:44 Vancomycin HCl (Vanco rx to dose) 1 ea DAILY PRN MISC Per rx protocol 09/14/18 09:00 10/09/18 20:59 Vancomycin HCl 1 gm/Dextrose 275 ml @ 183.708 mls/hr Q24H IVPB 09/14/18 11:00 09/17/18 10:59 09/14/18 11:05 Bonny Rincon MD Sep 14, 2018 17:42
--- NOTE | 2018-09-14 19:32 | NUR ---
NURSE NOTES: Received report from ANTOINETTE Sandoval. Patient in stable condition, no acute distress noted. NGT in place, patent. IV sites R forearm and Left hand patent no s/sx of infiltration or phlebitis, flushing well. F/C draining to gravity, patent.On low air loss mattress, bed lowest position, brakes on, side rail upx3.
--- NOTE | 2018-09-14 19:35 | NUR ---
HAND-OFF: Report given to Henrietta/RN, Patient is in stable condition, Endorsed plan of care.
[2018-09-14 20:00] VITALS: BP 143/72
--- NOTE | 2018-09-14 20:15 | Consultation ---
DATE OF CONSULTATION: 09/14/2018 HISTORY OF PRESENT ILLNESS: This is a 72-year-old male with a history of multiple medical comorbidities, who has been admitted to the hospital for medical stabilization. The patient presented with sepsis, shock, pneumonia, and urinary tract infection. The patient has G-tube. The patient is severely impaired any is currently in restraints. The patient was agitated today. I was called by Dr. Connolly to see the patient. The patient has waxing and waning consciousness and not able to participate in the evaluation due to severe cognitive impairment. Poor memory and is anxious. PAST PSYCHIATRIC HISTORY: The patient has a history of dementia. Currently, he is on no psychotropic medication. PAST MEDICAL HISTORY: As above. ALLERGIES: No known drug allergies. SUBSTANCE ABUSE HISTORY: No known history of illicit drug use or alcohol. No history of smoking. MENTAL STATUS EXAMINATION: The patient is asleep, opens his eyes by verbal stimuli. The patient has psychomotor retardation and nonverbal. Mood is anxious. Affect is blunted. Congruent with mood. Thought process, there is a paucity of thought content. Thought content, no suicidal or homicidal ideation. Memory, concentration, and attention is impaired. ASSESSMENT: Peterman I Acute toxic encephalopathy and dementia. Peterman II Deferred. Peterman III As above. Peterman IV Low. Peterman V 20 PLAN: 1. The patient will be started on Seroquel p.r.n. 2. Provide the patient with reality orientation and supportive therapy. 3. Continue the restraints. Rob Baltazar M.D. DR: GRAEME JOB#: [id number] CC:
--- NOTE | 2018-09-14 20:20 | General Progress Note ---
Assessment/Plan Status: unchanged Assessment/Plan: 72 year old male admitted for septic shock 2/2 pna vs uti Septic shock likley 2/2 PNA vs UTI - resolved -Cont Vanc, Zosyn -f/u blood cultures -Monitor respiratory status -s/p 3L NS -ID Consult appreciated -Pulm/Crit consult appreciated -surgery consult appreciated -DC femoral line -transferred to tele #BRYANT - improved #Poss rhabdomyolysis -Likley 2/ shock vs drug induced, CK elevated poss rhabdo -trend CK -nephrology consult appreciated -CTM -avoid nephrotoxic medications #Hypernatremia likley 2/ poor PO intake -cont D5W -CTM -Nephrology consult appreciated #HypoKalemia #Hypomagnesemia -repleted -CTM #dysphagia #Failure to thrive -s/p NGT -poss PEG pending family decision -GI consult appreciated #Full code Subjective Date patient seen: Sep 14, 2018 Allergies: Coded Allergies: No Known Allergies (Unverified , 08/20/18) Subjective No acute overnight evetns, Poss PEG, pending family decision, hypernatremia, D5W started, psych consulted for agitation Objective Last 24 Hour Vital Signs Date Time Temp Pulse Resp B/P (MAP) Pulse Ox O2 Delivery O2 Flow Rate FiO2 09/14/18 16:00 84 09/14/18 16:00 98.5 89 20 132/79 (96) 96 09/14/18 12:00 98.9 83 20 143/90 (107) 96 09/14/18 12:00 86 09/14/18 09:00 Nasal Cannula 2.0 09/14/18 08:00 92 09/14/18 08:00 98.4 70 19 133/71 (91) 96 09/14/18 04:00 98.4 81 19 137/77 (97) 94 09/14/18 04:00 81 09/14/18 02:32 98.4 09/14/18 00:00 89 09/14/18 00:00 100.5 99 20 136/79 (98) 94 09/13/18 21:00 Nasal Cannula 2.0 Intake and Output 09/13/18 09/14/18 19:00 07:00 Intake Total 795.000 ml 205.0 ml Output Total 500 ml 800 ml Balance 295.000 ml -595.0 ml IV Total 495.000 ml 205.0 ml Tube Feeding 300 ml Output Urine Total 500 ml 800 ml # Bowel Movements 2 Laboratory Tests 09/14/18 05:22: White Blood Count 6.6, Red Blood Count 2.81L, Hemoglobin 8.8L, Hematocrit 26.9L , Mean Corpuscular Volume 96, Mean Corpuscular Hemoglobin 31.5H, Mean Corpuscular Hemoglobin Concent 32.8, Red Cell Distribution Width 12.8, Platelet Count 173, Mean Platelet Volume 9.7, Neutrophils (%) (Auto) 70.8, Lymphocytes (% ) (Auto) 21.7, Monocytes (%) (Auto) 5.7, Eosinophils (%) (Auto) 1.4, Basophils ( %) (Auto) 0.4, Prothrombin Time 12.5H, Prothromb Time International Ratio 1.2H, Activated Partial Thromboplast Time 36H, Sodium Level 151H, Potassium Level 3.3L , Chloride Level 119H, Carbon Dioxide Level 20L, Anion Gap 12, Blood Urea Nitrogen 13, Creatinine 1.3, Estimat Glomerular Filtration Rate , Glucose Level 96, Calcium Level 8.2L, Phosphorus Level 2.9, Magnesium Level 2.2, Total Bilirubin 1.0, Aspartate Amino Transf (AST/SGOT) 82H, Alanine Aminotransferase ( ALT/SGPT) 91H, Alkaline Phosphatase 131H, Total Creatine Kinase 189, C-Reactive Protein, Quantitative 33.3H, Pro-B-Type Natriuretic Peptide 1967H, Total Protein 6.2L, Total Protein (PEP) [Pending], Albumin 1.8L, Albumin (PEP) [ Pending], Globulin 4.4, Globulin (PEP) [Pending], Albumin/Globulin Ratio [ Pending], Qllvb-2-Ivhgnqhes [Pending], Wszmv-0-Hnoakjmlx [Pending], Beta Globulins [Pending], Beta Gamma Globulin [Pending], PEP Abnormal Protein Bands [ Pending], Protein Electrophoresis Interpret [Pending] Height (Feet): 5 Height (Inches): 5.00 Weight (Pounds): 144 Objective General Appearance: WD/WN, lethargic, confused Lines, tubes and drains: peripheral, central line HEENT: normocephalic, atraumatic, ng tube in place Neck: non-tender Respiratory/Chest: chest wall non-tender, no accessory muscle use Cardiovascular/Chest: normal peripheral pulses Abdomen: normal bowel sounds, non tender Neurologic: disoriented Kimberlyn Bonner MD Sep 14, 2018 20:20
[2018-09-15] VITALS (12 sets, daily range): BP systolic 109–160; BP diastolic 74–94
[2018-09-15] MEDS: Piperacillin/Tazobactam 3.375 GM in NS 110 ML IVPB SCH ×3 (00:57→17:24)
[2018-09-15] MEDS: NovoLOG Insulin Flexpen SUBQ SCH ×5 (02:39→21:32)
[2018-09-15] MEDS: Metoclopramide 10mg/2ml Inj IVP SCH ×4 (04:08→21:33)
--- NOTE | 2018-09-15 07:06 | NUR ---
HAND-OFF: Report given to Betina.Patient in stable condition
--- NOTE | 2018-09-15 07:07 | NUR ---
NURSE NOTES: Received report from ANTOINETTE Shrestha. Patient is resting in bed, sleeping in stable condition. Indonesian speaking. Breathing unlabored in Room Air. Patient is on NG Tube, will have a procedure today for EGD with PEG Placement, consent signed. Patient is on bilateral soft wrist restraint. Bed in lowest position with two side rails up, brakes on, call light and bed side table within reach. Bed alarm on. Will continue plan of care.
[2018-09-15 07:22] LABS: BASOPHILS % (AUTO) 0.5 % (0.0-2.0); EOSINOPHILS % (AUTO) 2.1 % (0.0-3.0); HEMATOCRIT 26.5 % (42.0-52.0); HEMOGLOBIN 8.7 G/DL (14.2-18.0); LYMPHOCYTES % (AUTO) 23.6 % (20.0-45.0); MEAN CORPUSCULAR VOLUME 96 FL (80-99); MONOCYTES % (AUTO) 6.7 % (1.0-10.0); NEUTROPHILS % (AUTO) 67.2 % (45.0-75.0); PLATELET COUNT 190 K/UL (150-450); RED BLOOD COUNT 2.77 M/UL (4.70-6.10); RED CELL DISTRIBUTION WIDTH 12.9 % (11.6-14.8); WHITE BLOOD COUNT 7.1 K/UL (4.8-10.8)
[2018-09-15 07:42] LABS: ALANINE AMINOTRANSFERASE 146 U/L (12-78); ALBUMIN 1.8 G/DL (3.4-5.0); ALBUMIN/GLOBULIN RATIO 0.4 (1.0-2.7); ALKALINE PHOSPHATASE 158 U/L (46-116); ANION GAP 12 mmol/L (5-15); ASPARTATE AMINO TRANSFERASE 129 U/L (15-37); BILIRUBIN,TOTAL 0.9 MG/DL (0.2-1.0); BLOOD UREA NITROGEN 11 mg/dL (7-18); CALCIUM 8.7 MG/DL (8.5-10.1); CARBON DIOXIDE 22 MMOL/L (21-32); CHLORIDE 111 MMOL/L (98-107); CREATININE 1.3 MG/DL (0.55-1.30); POTASSIUM 3.1 MMOL/L (3.5-5.1); SODIUM 145 MMOL/L (136-145)
[2018-09-15] MEDS: Heparin 5000 units/ml inj SUBQ SCH ×2 (08:09→21:31)
[2018-09-15] MEDS ORDERED: fentaNYL 100 mcg/2 mL IV PRN (08:45)
[2018-09-15] MEDS ORDERED: Atropine Sulfate 0.4mg/ml inj IVP PRN (08:45)
[2018-09-15] MEDS ORDERED: Midazolam 2mg/2ml Inj IVP PRN (08:45)
[2018-09-15] MEDS ORDERED: DiphenhydrAMINE 50mg/ml Inj IVP PRN (08:45)
--- NOTE | 2018-09-15 08:46 | Anethesia Preoperative Eval ---
Anesthesia Pre-op PMH/ROS General Date of Evaluation: Sep 15, 2018 Time of Evaluation: 08:44 Anesthesiologist: lorenzo ASA Score: ASA 4 Mallampati Score Class I : Soft palate, uvula, fauces, pillars visible Class II: Soft palate, uvula, fauces visible Class III: Soft palate, base of uvula visible Class IV: Only hard plate visible Mallampati Classification: Class II Surgeon: sebas Diagnosis: dysphagia Surgical Procedure: peg Anesthesia History: none Family History: no anesthesia problems Allergies: Coded Allergies: No Known Allergies (Unverified , 08/20/18) Medications: see eMAR Patient NPO?: Yes Past Medical History Cardiovascular: Reports: other - hypotension Gastrointestinal/Genitourinary: Reports: other - oli Neurologic/Psychiatric: Reports: dementia, CVA, depression/anxiety, other - weakness Hematology/Immune: Reports: other - septic shock Musculoskeletal/Integumentary: Reports: other - rhabdomyolysis Anesthesia Pre-op Phys. Exam Physician Exam Last Vital Signs Date Time Temp Pulse Resp B/P (MAP) Pulse Ox O2 Delivery O2 Flow Rate FiO2 09/15/18 08:00 98.6 91 16 138/79 (98) 96 09/14/18 21:00 Nasal Cannula 2.0 Constitutional: NAD Neurologic: CN 2-12 intact - paresis, other Cardiovascular: RRR Respiratory: CTA Gastrointestinal: S/NT/ND Airway Exam Mallampati Score: Class II MO: limited Neck: decreased rom tolateral rotation TMD: 2fb ROM: limited Teeth: missing, broken Anesthesia Pre-op A/P Labs Hematology Test 09/15/18 05:26 White Blood Count 7.1 K/UL (4.8-10.8) Red Blood Count 2.77 M/UL (4.70-6.10) L Hemoglobin 8.7 G/DL (14.2-18.0) L Hematocrit 26.5 % (42.0-52.0) L Mean Corpuscular Volume 96 FL (80-99) Mean Corpuscular Hemoglobin 31.3 PG (27.0-31.0) H Mean Corpuscular Hemoglobin Concent 32.7 G/DL (32.0-36.0) Red Cell Distribution Width 12.9 % (11.6-14.8) Platelet Count 190 K/UL (150-450) Mean Platelet Volume 8.5 FL (6.5-10.1) Neutrophils (%) (Auto) 67.2 % (45.0-75.0) Lymphocytes (%) (Auto) 23.6 % (20.0-45.0) Monocytes (%) (Auto) 6.7 % (1.0-10.0) Eosinophils (%) (Auto) 2.1 % (0.0-3.0) Basophils (%) (Auto) 0.5 % (0.0-2.0) Chemistry Test 09/15/18 05:26 Sodium Level 145 MMOL/L (136-145) Potassium Level 3.1 MMOL/L (3.5-5.1) L Chloride Level 111 MMOL/L (98-107) H Carbon Dioxide Level 22 MMOL/L (21-32) Anion Gap 12 mmol/L (5-15) Blood Urea Nitrogen 11 mg/dL (7-18) Creatinine 1.3 MG/DL (0.55-1.30) Estimat Glomerular Filtration Rate mL/min (>60) Glucose Level 114 MG/DL (74-106) H Calcium Level 8.7 MG/DL (8.5-10.1) Phosphorus Level 2.0 MG/DL (2.5-4.9) L Magnesium Level 1.6 MG/DL (1.8-2.4) L Total Bilirubin 0.9 MG/DL (0.2-1.0) Aspartate Amino Transf (AST/SGOT) 129 U/L (15-37) H Alanine Aminotransferase (ALT/SGPT) 146 U/L (12-78) H Alkaline Phosphatase 158 U/L (46-116) H C-Reactive Protein, Quantitative 25.5 mg/dL (0.00-0.90) H Pro-B-Type Natriuretic Peptide 1364 pg/mL (0-125) H Total Protein 6.2 G/DL (6.4-8.2) L Albumin 1.8 G/DL (3.4-5.0) L Globulin 4.4 g/dL Albumin/Globulin Ratio 0.4 (1.0-2.7) L Risk Assessment & Plan Assessment: asa4 Plan: mac Status Change Before Surgery: No Pre-Antibiotics Drug: Patricia Strickland MD Sep 15, 2018 08:46
--- NOTE | 2018-09-15 08:59 | Nephrology Progress Note ---
Assessment/Plan Problem List: (1) BRYANT (acute kidney injury) Assessment: eresolved (2) Rhabdomyolysis (3) Septic shock (4) Failure to thrive syndrome, adult (5) Pneumonia Assessment Acute Renal Failure: ? Drug induced Was on Lisinopril and Celebrex Rhabdo: High CPK Dehydration Shock Sepsis / Pneumonia / UTI Malnutrition Plan Due PEG today- Hydrate with D5 K and Phos IV as needed start NGT feeding SS Insulin off pressors antibiotics monitor renal parameters per orders Subjective ROS Limited/Unobtainable: No Constitutional: Reports: malaise, weakness Objective Objective Last 24 Hour Vital Signs Date Time Temp Pulse Resp B/P (MAP) Pulse Ox O2 Delivery O2 Flow Rate FiO2 09/15/18 08:00 98.6 91 16 138/79 (98) 96 09/15/18 04:00 98.5 92 20 141/75 (97) 96 09/15/18 04:00 92 09/15/18 00:00 99.7 92 20 160/84 (109) 98 09/15/18 00:00 82 09/14/18 21:00 Nasal Cannula 2.0 09/14/18 20:00 98.2 91 20 143/72 (95) 95 09/14/18 20:00 85 09/14/18 16:00 84 09/14/18 16:00 98.5 89 20 132/79 (96) 96 09/14/18 12:00 98.9 83 20 143/90 (107) 96 09/14/18 12:00 86 09/14/18 09:00 Nasal Cannula 2.0 Intake and Output 09/14/18 09/15/18 19:00 07:00 Intake Total 137.5 ml 937.0 ml Output Total 600 ml 500 ml Balance -462.5 ml 437.0 ml Intake Free Water 100 ml IV Total 77.5 ml 687.0 ml Tube Feeding 60 ml 150 ml Output Urine Total 600 ml 500 ml Laboratory Tests 09/15/18 05:26: White Blood Count 7.1, Red Blood Count 2.77L, Hemoglobin 8.7L, Hematocrit 26.5L , Mean Corpuscular Volume 96, Mean Corpuscular Hemoglobin 31.3H, Mean Corpuscular Hemoglobin Concent 32.7, Red Cell Distribution Width 12.9, Platelet Count 190, Mean Platelet Volume 8.5, Neutrophils (%) (Auto) 67.2, Lymphocytes (% ) (Auto) 23.6, Monocytes (%) (Auto) 6.7, Eosinophils (%) (Auto) 2.1, Basophils ( %) (Auto) 0.5, Sodium Level 145, Potassium Level 3.1L, Chloride Level 111H, Carbon Dioxide Level 22, Anion Gap 12, Blood Urea Nitrogen 11, Creatinine 1.3, Estimat Glomerular Filtration Rate , Glucose Level 114H, Calcium Level 8.7, Phosphorus Level 2.0L, Magnesium Level 1.6L, Total Bilirubin 0.9, Aspartate Amino Transf (AST/SGOT) 129H, Alanine Aminotransferase (ALT/SGPT) 146H, Alkaline Phosphatase 158H, C-Reactive Protein, Quantitative 25.5H, Pro-B-Type Natriuretic Peptide 1364H, Total Protein 6.2L, Albumin 1.8L, Globulin 4.4, Albumin/Globulin Ratio 0.4L Height (Feet): 5 Height (Inches): 4.00 Weight (Pounds): 131 General Appearance: no apparent distress EENT: other - NGT Cardiovascular: tachycardia - 90s Respiratory/Chest: decreased breath sounds Abdomen: soft Minh Phipps MD Sep 15, 2018 08:59
--- NOTE | 2018-09-15 09:26 | NUR ---
CASE MANAGEMENT:REVIEW 09/15/18 SI: SEPTIC SHOCK. HYPERNATREMIA dysphagia.....PEG PLACEMENT FOR TODAY 100.5 99 20 136/79 94% ON 2L/NC H/H-8.8/26.9 NA+151 K-3.3 IS: IV VANCOMYCIN Q24 IV ZOSYN Q8HRS IV PEPCID QD IV K-PHOS X1 IV MAG SULFATE Q1HRS X4 : TELEMETRY STATUS DCP: FROM [facility] REHAB PLAN: POSSIBLE PEG PENDING FAMILIES DECISION
[2018-09-15] MEDS ORDERED: Tubing IV Secondary IV ONE (09:47)
[2018-09-15] MEDS ORDERED: Potassium Phosphate 30 MM in NS 275 ML IV ONE (10:30)
--- NOTE | 2018-09-15 10:40 | NUR ---
DISCHARGE PLANNING FAXED CLINICALS TO [facility] [address] FOR POSSIBLE DISCHARGE LATER TODAY
[2018-09-15] MEDS: Vancomycin 1 GM in D5W 275 ML IVPB SCH (11:07)
[2018-09-15] MEDS ORDERED: NS 500ML IVPB ONE (11:40)
--- NOTE | 2018-09-15 11:47 | Pre-Procedure Note/Attestation ---
Pre-Procedure Note/Attestation Complete Prior to Procedure Planned Procedure: not applicable Procedure Narrative: esophagogastroduodenoscopy peg Indications for Procedure Pre-Operative Diagnosis: dysphagia Attestation I attest that I discussed the nature of the procedure; its benefits; risks and complications; and alternatives (and the risks and benefits of such alternatives ), prior to the procedure, with the patient (or the patient's legal software sales representative). I attest that, if there was a reasonable possibility of needing a blood transfusion, the patient (or the patient's legal software sales representative) was given the [facility] standardized written summary, pursuant to the Vicente [place] Blood Safety Act ([place] Health and Safety Code # 1645, as amended). I attest that I re-evaluated the patient just prior to the surgery and that there has been no change in the patient's H&P, except as documented below: Ramiro Romero MD Sep 15, 2018 11:47
[2018-09-15] MEDS ORDERED: Lidocaine 1% MPF 10mg/ml 5ml ONE (12:00)
[2018-09-15] MEDS ORDERED: Propofol 200mg/20ml IV ONE (12:00)
--- NOTE | 2018-09-15 12:09 | NUR ---
DISCHARGE SWALLOW/SPEECH THERAPY SUMMARY: PATIENT SEEN FOR DYSPHAGIA, SEE SWALLOW EVALUATION REPORT. PATIENT HAD PEG PLACED 09/15/18 AND SHOULD BE ASSESS FOR PO INTAKE AFTER MOD BARIUM SWALLOW STUDY ( OP SINCE DC TODAY). PLAN: F/UP WITH HVAC INSTRUCTOR AT [facility] AFTER OUTPATIENT MOD BARIUM SWALLOW STUDY COMPLETED SO HE CAN AT LEAST HAVE SOME ORAL GRATIFICATION IF DESIRED. Addendum: 09/15/18 at 1212 by ANDRÉS VELÁZQUEZ HVAC INSTRUCTOR DISCHARGE SWALLOW/SPEECH THERAPY SUMMARY: PATIENT SEEN FOR DYSPHAGIA, SEE SWALLOW EVALUATION REPORT. PATIENT HAD PEG PLACED 09/15/18 AND SHOULD BE ASSESS FOR PO INTAKE AFTER MOD BARIUM SWALLOW STUDY ( OP [place]INCE [place] TODAY). GOALS NOT MET FOR INTAKE YET BUT GOALS MET FOR STAFF EDUCATED/TRAINED IN ORAL CARE. PLAN: CONTINUE WITH NONORAL FEEDINGS AND ORAL CARE. F/UP WITH HVAC INSTRUCTOR AT [facility] AFTER OUTPATIENT MOD BARIUM SWALLOW STUDY COMPLETED SO HE CAN AT LEAST HAVE SOME ORAL GRATIFICATION IF DESIRED. Addendum: 09/15/18 at 1231 by ANDRÉS VELÁZQUEZ HVAC INSTRUCTOR ADDENDUM: IF PATIENT STILL HERE ON THURSDAY, WILL TRY TO COMPLETE MBSS PRIOR TO D/C TO SNF SINCE RN (ROMEL) SAYS HE MAY STILL BE HERE.
--- NOTE | 2018-09-15 12:41 | Surgery Progress Note ---
Surgery Progress Note Subjective Additional Comments no acute events. stable. comfortable. Objective Last 24 Hour Vital Signs Date Time Temp Pulse Resp B/P (MAP) Pulse Ox O2 Delivery O2 Flow Rate FiO2 09/15/18 12:30 82 19 150/85 100 Nasal Cannula 3 09/15/18 12:25 86 19 147/87 100 Nasal Cannula 3 09/15/18 12:20 83 19 144/82 99 Nasal Cannula 3 09/15/18 12:15 97.4 78 18 109/74 99 Nasal Cannula 3 09/15/18 09:00 Nasal Cannula 2.0 09/15/18 08:00 88 09/15/18 08:00 98.6 91 16 138/79 (98) 96 09/15/18 04:00 98.5 92 20 141/75 (97) 96 09/15/18 04:00 92 09/15/18 00:00 99.7 92 20 160/84 (109) 98 09/15/18 00:00 82 09/14/18 21:00 Nasal Cannula 2.0 09/14/18 20:00 98.2 91 20 143/72 (95) 95 09/14/18 20:00 85 09/14/18 16:00 84 09/14/18 16:00 98.5 89 20 132/79 (96) 96 I&O Intake and Output 09/14/18 09/15/18 19:00 07:00 Intake Total 137.5 ml 937.0 ml Output Total 600 ml 500 ml Balance -462.5 ml 437.0 ml Intake Free Water 100 ml IV Total 77.5 ml 687.0 ml Tube Feeding 60 ml 150 ml Output Urine Total 600 ml 500 ml Dressing: saturated Wound: other Drains: other Cardiovascular: RSR Respiratory: decreased breath sounds Abdomen: soft, present bowel sounds, non-distended Extremities: no cyanosis Laboratory Tests Test 09/15/18 05:26 09/15/18 09:45 White Blood Count 7.1 K/UL (4.8-10.8) Red Blood Count 2.77 M/UL (4.70-6.10) L Hemoglobin 8.7 G/DL (14.2-18.0) L Hematocrit 26.5 % (42.0-52.0) L Mean Corpuscular Volume 96 FL (80-99) Mean Corpuscular Hemoglobin 31.3 PG (27.0-31.0) H Mean Corpuscular Hemoglobin Concent 32.7 G/DL (32.0-36.0) Red Cell Distribution Width 12.9 % (11.6-14.8) Platelet Count 190 K/UL (150-450) Mean Platelet Volume 8.5 FL (6.5-10.1) Neutrophils (%) (Auto) 67.2 % (45.0-75.0) Lymphocytes (%) (Auto) 23.6 % (20.0-45.0) Monocytes (%) (Auto) 6.7 % (1.0-10.0) Eosinophils (%) (Auto) 2.1 % (0.0-3.0) Basophils (%) (Auto) 0.5 % (0.0-2.0) Sodium Level 145 MMOL/L (136-145) Potassium Level 3.1 MMOL/L (3.5-5.1) L Chloride Level 111 MMOL/L (98-107) H Carbon Dioxide Level 22 MMOL/L (21-32) Anion Gap 12 mmol/L (5-15) Blood Urea Nitrogen 11 mg/dL (7-18) Creatinine 1.3 MG/DL (0.55-1.30) Estimat Glomerular Filtration Rate mL/min (>60) Glucose Level 114 MG/DL (74-106) H Calcium Level 8.7 MG/DL (8.5-10.1) Phosphorus Level 2.0 MG/DL (2.5-4.9) L Magnesium Level 1.6 MG/DL (1.8-2.4) L Total Bilirubin 0.9 MG/DL (0.2-1.0) Aspartate Amino Transf (AST/SGOT) 129 U/L (15-37) H Alanine Aminotransferase (ALT/SGPT) 146 U/L (12-78) H Alkaline Phosphatase 158 U/L (46-116) H C-Reactive Protein, Quantitative 25.5 mg/dL (0.00-0.90) H Pro-B-Type Natriuretic Peptide 1364 pg/mL (0-125) H Total Protein 6.2 G/DL (6.4-8.2) L Albumin 1.8 G/DL (3.4-5.0) L Globulin 4.4 g/dL Albumin/Globulin Ratio 0.4 (1.0-2.7) L Vancomycin Level Trough 12.2 ug/mL (5.0-12.0) H Plan Problems: (1) Decubitus skin ulcer Assessment & Plan: Pt presented on admission with multiple pressure injuries. DTPI R trochanteric.Base of wound maroon and indurated (L)2cm x (W)5cm. Periwound without erythema or fluctuance. No evidence of skin breakdown sacrum or L trochanter. Non-blanchable erythema with fluctuance noted to medial R heel (L)4.5cm x (W) 4.5cm. DTPI noted to lateral L heel .Base of wound maroon and fluctuant(L)3.5cm x (W) 3cm.Periwound fluctuant but pink. Reabsorbing blood blister dorso/flexor R foot(L)1cm x (W)0.5cm.Base of wound purple fluctuant in center with dry borders. Non-blanchable erythema with fluctuance noted to distal/lateral R foot (L)1cm, x (W)1cm. Lateral R 5th metatarsal maroon and fluctuant.(L)1cm x (W)1cm. Non-blanchable erythema without fluctuance or induration lateral R malleolus(L) 0.5cm x (W)0.5cm .Periwound without erythema. Tx.Plan: Apply Cavilon Skin Barrier to R trochanter. Cover with Optifoam drsg. Change every 7 days and prn. Apply Cavilon Skin Barrier to L trochanter. Cover with Optifoam drsg.Change every 7 days and prn. Apply Moisture Barrier to Sacrum. Cover with Optifoam drsg. Change every 7 days and prn. Apply Cavilon Skin Barrier distal/lateral R foot, lateral R 5th metatarsal, lateral R malleolus,dorso/flexorR foot and R heel. Cover each site with Optifoam drsg. Change every 7 days and PRN. Apply Cavilon Skin Barrier to L heel. Cover with Optifoam drsg. Change every 7 days and prn. Reposition at least every 2hours or as tolerated. Place pillow between knees. Off-load heels with pillow. APM/RAVINDER Mattress overlay. (2) Pneumonia (3) BRYANT (acute kidney injury) (4) Septic shock Assessment & Plan: DAILY ESTIMATED NEEDS: Needs based on Wt loss, wound/ 53kg 30-35 kcals/kg 0396-8653 total kcals 1.25-1.5 g protein/kg 66-79 g total protein 25-30 mL/kg 3049-8608 total fluid mLs NUTRITION DIAGNOSIS: * Swallowing difficulty R/T dysphagia, decreased cognitive fxn as evidenced by [employer] recommends NPO at this time, w/ an order for NGT insertion. * Increased kcal/prot intake needs R/T wt loss, wound healing as evidenced by pt admitted w/ possible significant wt loss of 10 pounds/7.9% wt loss in <1 mo, w/ wound photos, not yet evaluated. * Altered nutrition related lab values R/T ARF, dehydration, diabetes as evidenced by elev Na (162), elev Creat (8.3->4.7), elev BGs (203 197), elev A1C 6.3. CURRENT DIET:NPO ENTERAL NUTRITION RECOMMENDATIONS: Glucerna 1.2 @ 56ml/hr x 24 hrs to provide 1344ml, 1613kcal, 80g prot, 1082ml free water * W/ GI access, initiate Glucerna 1.2 @ 26ml/hr x 6 hrs * Advance 10ml q 4-6 hrs as tolerated to goal rate of 56ml/hr x 24 hrs * HOB over 30 degrees/ water flush per MD ADDITIONAL RECOMMENDATIONS: * Per SNF, HT=63", VA=122qjt (on 08/30/18) * Monitor renal fxn- improving at this time * Monitor lytes w/ TF, replete as needed * F/up wound eval -> rec to add Lemuel 1pkt BID (5) Failure to thrive syndrome, adult Assessment & Plan: Needs nutritional supplementation NG Tube for now for feeds and meds tube feeds PEG (6) Rhabdomyolysis Reji Guy Sep 15, 2018 12:41
--- NOTE | 2018-09-15 12:56 | Immediate Post-Op Evaluation ---
Immediate Post-Op Evalulation Immediate Post-Op Evalulation Procedure: egd/peg Date of Evaluation: Sep 15, 2018 Time of Evaluation: 12:27 IV Fluids: 150ml 0.9ns Blood Products: none Estimated Blood Loss: neglgible Blood Pressure Systolic: 109 Blood Pressure Diastolic: 74 Pulse Rate: 78 Respiratory Rate: 18 O2 Sat by Pulse Oximetry: 99 Temperature (Fahrenheit): 97.4 Pain Score (1-10): 0 Nausea: No Vomiting: No Complications none Patient Status: awake, reacts, patent Hydration Status: adequate Drug: Patricia Strickland MD Sep 15, 2018 12:56
--- NOTE | 2018-09-15 12:58 | 48 Hour Post Anesthesia Eval ---
Post Anesthesia Evaluation Procedure: egd/peg Date of Evaluation: Sep 15, 2018 Time of Evaluation: 12:29 Blood Pressure Systolic: 147 0: 87 Pulse Rate: 78 Respiratory Rate: 18 Temperature (Fahrenheit): 97.4 O2 Sat by Pulse Oximetry: 99 Airway: patent Nausea: No Vomiting: No Pain Intensity: 0 Hydration Status: adequate Cardiopulmonary Status: stable Mental Status/LOC: patient returned to baseline Post-Anesthesia Complications: none Follow-up care needed: N/A Patricia Goldman MD Sep 15, 2018 12:58
--- NOTE | 2018-09-15 13:53 | Endoscopy Procedure Note ---
Endoscopy Procedure Note General Indication for Procedure: dysphagia Procedures Performed: EGD, PEG Operative Findings/Diagnosis: same Specimen: none Pt Tolerated Procedure Well: Yes Estimated Blood Loss: none Anesthesia Anesthesiologist: samantha Anesthesia: MAC Inserted Devices Implant(s) used?: No GI Core Measures 50 yrs or older w/o bx or poly: Not Applicable 10yrs. F/U recommended: Not Applicable Ramiro Romero MD Sep 15, 2018 13:53
[2018-09-15] MEDS ORDERED: Sterile Water Irrig 1000ml IRRIG ONE (15:41)
--- NOTE | 2018-09-15 17:45 | Procedure Note ---
DATE OF PROCEDURE: 09/15/2018 SURGEON: Ramiro Romero M.D. PROCEDURE: Upper endoscopy with PEG placement. ANESTHESIOLOGIST: Per Dr. Marquez. INSTRUMENT: Olympus adult flexible upper endoscope. INDICATION: Dysphagia. REASON FOR PROCEDURE: The procedure, risks, benefits, and possible consequences, including hemorrhage, aspiration, perforation and infection, and alternative treatments, were explained to the patient/legal guardian by Dr. Ramiro Romero and the patient/legal guardian understood and accepted these risks. DESCRIPTION OF PROCEDURE: After informed consent was obtained and the patient was adequately sedated, the Olympus upper endoscope was advanced from the mouth into the second portion of duodenum and retroflexion was performed in the stomach. Then under endoscopic guidance and under sterile condition, a 20-Egyptian pull type of G-tube was successfully placed in the epigastric area. The distance from the tip of the tube to skin was about 2-1/2 cm in size. The patient tolerated the procedure very well without any complication. SUMMARY FINDINGS: 1. Gastritis. 2. Status post successful PEG placement. RECOMMENDATIONS: 1. Abdominal binder. 2. Elevate the head of the bed at all times. 3. G-tube flush. 4. G-tube care. 5. Start tube feeding later today. I want to thank, Dr. Hyatt, for this kind referral. Ramiro Romero M.D. DR: Lupis JOB#: [id number] CC: Darion Hyatt M.D.; Fax#: [phone]
--- NOTE | 2018-09-15 19:15 | Progress Note ---
DATE: 09/15/2018 SUBJECTIVE: The patient is calmer, more cooperative. The patient is in restraints, nonverbal. Still has episodes of agitation and weak. I was asked by Dr. Connolly to see the patient. The patient has severe cognitive impairment and is unable to be engaged. MENTAL STATUS EXAMINATION: The patient is asleep, arousable with verbal stimuli. Mood is neutral to agitation. Affect is flat. Thought process, there is a paucity of thought content. Thought content, no suicidal or homicidal ideation. ASSESSMENT: Stable. PLAN: 1. The patient will be continued on current medications. 2. We will continue to follow and readjust the medication. Rob Baltazar M.D. DR: REMY JOB#: [id number] CC:
--- NOTE | 2018-09-15 19:25 | NUR ---
HAND-OFF: Report given to ANTOINETTE Velasquez.
--- NOTE | 2018-09-15 19:26 | NUR ---
NURSE NOTES: Got report from Cherri CURRY. Pt in stable condition. No s/s of distress or discomfort noted. Pt resting in bed comfortably. Bed in low and locked position, call light within reach, bedside table within reach. Continue to monitor.
--- NOTE | 2018-09-15 22:21 | General Progress Note ---
Assessment/Plan Status: unchanged Assessment/Plan: 72 year old male admitted for septic shock 2/2 pna vs uti Septic shock likley 2/2 PNA vs UTI - resolved -Cont Vanc, Zosyn -f/u blood cultures -Monitor respiratory status -s/p 3L NS -ID Consult appreciated -Pulm/Crit consult appreciated -surgery consult appreciated -DC femoral line #BRYANT - resolved #rhabdomyolysis -Likley 2/2 shock vs drug induced, CK elevated poss rhabdo -trend CK - trending down -nephrology consult appreciated -CTM -avoid nephrotoxic medications #Hypernatremia likley 2/2 poor PO intake - improved -cont D5W -CTM -Nephrology consult appreciated #severe HypoKalemia #Hypomagnesemia -cont IV repletion -CTM #dysphagia #Failure to thrive -s/p PEG 09/15/18 -GI consult appreciated #Full code Subjective Date patient seen: Sep 15, 2018 ROS Limited/Unobtainable: Yes Allergies: Coded Allergies: No Known Allergies (Unverified , 08/20/18) Subjective No acute overnight evetns, s/p PEG placement today, NA improved Objective Last 24 Hour Vital Signs Date Time Temp Pulse Resp B/P (MAP) Pulse Ox O2 Delivery O2 Flow Rate FiO2 09/15/18 20:00 80 09/15/18 20:00 99.0 91 18 159/91 (113) 95 09/15/18 16:00 98.2 84 17 158/82 (107) 97 09/15/18 16:00 94 09/15/18 13:05 98.2 84 16 153/79 (103) 95 09/15/18 12:58 78 18 99 09/15/18 12:56 78 18 99 09/15/18 12:55 83 20 147/94 97 Room Air 09/15/18 12:30 82 19 150/85 100 Nasal Cannula 3 09/15/18 12:25 86 19 147/87 100 Nasal Cannula 3 09/15/18 12:20 83 19 144/82 99 Nasal Cannula 3 09/15/18 12:15 97.4 78 18 109/74 99 Nasal Cannula 3 09/15/18 12:00 93 09/15/18 09:00 Nasal Cannula 2.0 09/15/18 08:00 88 09/15/18 08:00 98.6 91 16 138/79 (98) 96 09/15/18 04:00 98.5 92 20 141/75 (97) 96 09/15/18 04:00 92 09/15/18 00:00 99.7 92 20 160/84 (109) 98 09/15/18 00:00 82 Intake and Output 09/14/18 09/15/18 19:00 07:00 Intake Total 137.5 ml 937.0 ml Output Total 600 ml 500 ml Balance -462.5 ml 437.0 ml Intake Free Water 100 ml IV Total 77.5 ml 687.0 ml Tube Feeding 60 ml 150 ml Output Urine Total 600 ml 500 ml Laboratory Tests 09/15/18 05:26: White Blood Count 7.1, Red Blood Count 2.77L, Hemoglobin 8.7L, Hematocrit 26.5L , Mean Corpuscular Volume 96, Mean Corpuscular Hemoglobin 31.3H, Mean Corpuscular Hemoglobin Concent 32.7, Red Cell Distribution Width 12.9, Platelet Count 190, Mean Platelet Volume 8.5, Neutrophils (%) (Auto) 67.2, Lymphocytes (% ) (Auto) 23.6, Monocytes (%) (Auto) 6.7, Eosinophils (%) (Auto) 2.1, Basophils ( %) (Auto) 0.5, Sodium Level 145, Potassium Level 3.1L, Chloride Level 111H, Carbon Dioxide Level 22, Anion Gap 12, Blood Urea Nitrogen 11, Creatinine 1.3, Estimat Glomerular Filtration Rate , Glucose Level 114H, Calcium Level 8.7, Phosphorus Level 2.0L, Magnesium Level 1.6L, Total Bilirubin 0.9, Aspartate Amino Transf (AST/SGOT) 129H, Alanine Aminotransferase (ALT/SGPT) 146H, Alkaline Phosphatase 158H, C-Reactive Protein, Quantitative 25.5H, Pro-B-Type Natriuretic Peptide 1364H, Total Protein 6.2L, Albumin 1.8L, Globulin 4.4, Albumin/Globulin Ratio 0.4L 09/15/18 09:45: Vancomycin Level Trough 12.2H Height (Feet): 5 Height (Inches): 4.00 Weight (Pounds): 131 Objective General Appearance: WD/WN, lethargic, confused Lines, tubes and drains: peripheral, central line HEENT: normocephalic, atraumatic, ng tube in place Neck: non-tender Respiratory/Chest: chest wall non-tender, no accessory muscle use Cardiovascular/Chest: normal peripheral pulses Abdomen: normal bowel sounds, non tender Neurologic: disoriented Kimberlyn Bonner MD Sep 15, 2018 22:21
[2018-09-16] VITALS: BP 141/90
[2018-09-16] MEDS: Piperacillin/Tazobactam 3.375 GM in NS 110 ML IVPB SCH ×2 (01:01→08:18)
[2018-09-16] MEDS: NovoLOG Insulin Flexpen SUBQ SCH ×5 (03:00→23:52)
[2018-09-16] MEDS: Metoclopramide 10mg/2ml Inj IVP SCH (03:30)
[2018-09-16 04:20] VITALS: BP 148/75
[2018-09-16 06:38] LABS: BASOPHILS % (AUTO) 0.6 % (0.0-2.0); EOSINOPHILS % (AUTO) 3.6 % (0.0-3.0); HEMATOCRIT 28.2 % (42.0-52.0); HEMOGLOBIN 9.1 G/DL (14.2-18.0); LYMPHOCYTES % (AUTO) 22.8 % (20.0-45.0); MEAN CORPUSCULAR VOLUME 96 FL (80-99); MONOCYTES % (AUTO) 6.3 % (1.0-10.0); NEUTROPHILS % (AUTO) 66.6 % (45.0-75.0); PLATELET COUNT 228 K/UL (150-450); RED BLOOD COUNT 2.94 M/UL (4.70-6.10); WHITE BLOOD COUNT 7.6 K/UL (4.8-10.8)
--- NOTE | 2018-09-16 07:00 | General Progress Note ---
Assessment/Plan Problem List: (1) Severe malnutrition ICD Codes: E43 - Unspecified severe protein-calorie malnutrition SNOMED: 37380291 (2) Dehydration ICD Codes: E86.0 - Dehydration SNOMED: 72891485 (3) Pneumonia ICD Codes: J18.9 - Pneumonia, unspecified organism SNOMED: 536668984 (4) Decubitus skin ulcer ICD Codes: L89.90 - Pressure ulcer of unspecified site, unspecified stage SNOMED: 678988814 (5) Failure to thrive syndrome, adult ICD Codes: R62.7 - Failure to thrive syndrome, adult SNOMED: 467397797 Status: unchanged Assessment/Plan: s/p PEG GTF GT care and flush dc planning per primary team Subjective ROS Limited/Unobtainable: No Allergies: Coded Allergies: No Known Allergies (Unverified , 08/20/18) Objective Last 24 Hour Vital Signs Date Time Temp Pulse Resp B/P (MAP) Pulse Ox O2 Delivery O2 Flow Rate FiO2 09/16/18 04:20 85 09/16/18 04:20 97.9 85 18 148/75 (99) 96 09/16/18 00:00 99.0 91 18 141/90 (107) 95 09/16/18 00:00 90 09/15/18 22:00 149/86 (107) 09/15/18 21:00 Nasal Cannula 2.0 09/15/18 20:00 80 09/15/18 20:00 99.0 91 18 159/91 (113) 95 09/15/18 16:00 98.2 84 17 158/82 (107) 97 09/15/18 16:00 94 09/15/18 13:05 98.2 84 16 153/79 (103) 95 09/15/18 12:58 78 18 99 09/15/18 12:56 78 18 99 09/15/18 12:55 83 20 147/94 97 Room Air 09/15/18 12:30 82 19 150/85 100 Nasal Cannula 3 09/15/18 12:25 86 19 147/87 100 Nasal Cannula 3 09/15/18 12:20 83 19 144/82 99 Nasal Cannula 3 09/15/18 12:15 97.4 78 18 109/74 99 Nasal Cannula 3 09/15/18 12:00 93 09/15/18 09:00 Nasal Cannula 2.0 09/15/18 08:00 88 09/15/18 08:00 98.6 91 16 138/79 (98) 96 Intake and Output 09/15/18 09/16/18 18:59 06:59 Intake Total 1560 ml Output Total 800 ml Balance 760 ml IV Total 550 ml Tube Feeding 10 ml Other 1000 ml Output Urine Total 800 ml # Bowel Movements 2 Laboratory Tests 09/15/18 09:45: Vancomycin Level Trough 12.2H 09/16/18 05:30: White Blood Count 7.6, Red Blood Count 2.94L, Hemoglobin 9.1L, Hematocrit 28.2L , Mean Corpuscular Volume 96, Mean Corpuscular Hemoglobin 30.9, Mean Corpuscular Hemoglobin Concent 32.3, Red Cell Distribution Width 13.0, Platelet Count 228, Mean Platelet Volume 7.3, Neutrophils (%) (Auto) 66.6, Lymphocytes (% ) (Auto) 22.8, Monocytes (%) (Auto) 6.3, Eosinophils (%) (Auto) 3.6H, Basophils (%) (Auto) 0.6, Sodium Level [Pending], Potassium Level [Pending], Chloride Level [Pending], Carbon Dioxide Level [Pending], Blood Urea Nitrogen [Pending], Creatinine [Pending], Estimat Glomerular Filtration Rate [Pending], Glucose Level [Pending], Calcium Level [Pending], Phosphorus Level [Pending], Magnesium Level [Pending], Total Bilirubin [Pending], Gamma Glutamyl Transpeptidase [ Pending], Aspartate Amino Transf (AST/SGOT) [Pending], Alanine Aminotransferase (ALT/SGPT) [Pending], Alkaline Phosphatase [Pending], C-Reactive Protein, Quantitative [Pending], Pro-B-Type Natriuretic Peptide [Pending], Total Protein [Pending], Albumin [Pending], Globulin [Pending] Height (Feet): 5 Height (Inches): 4.00 Weight (Pounds): 130 General Appearance: alert EENT: normal ENT inspection Neck: supple Cardiovascular: normal rate Respiratory/Chest: decreased breath sounds Abdomen: normal bowel sounds, non tender, soft Extremities: non-tender Ramiro Romero MD Sep 16, 2018 07:00
[2018-09-16 07:13] LABS: ALANINE AMINOTRANSFERASE 150 U/L (12-78); ALBUMIN 1.8 G/DL (3.4-5.0); ALBUMIN/GLOBULIN RATIO 0.4 (1.0-2.7); ALKALINE PHOSPHATASE 170 U/L (46-116); ANION GAP 12 mmol/L (5-15); ASPARTATE AMINO TRANSFERASE 97 U/L (15-37); BILIRUBIN,TOTAL 0.8 MG/DL (0.2-1.0); BLOOD UREA NITROGEN 9 mg/dL (7-18); CALCIUM 8.8 MG/DL (8.5-10.1); CARBON DIOXIDE 22 MMOL/L (21-32); CHLORIDE 113 MMOL/L (98-107); CREATININE 1.2 MG/DL (0.55-1.30); GAMMA GLUTAMYL TRANSPEPTIDASE 200 U/L (5-85); POTASSIUM 3.3 MMOL/L (3.5-5.1); SODIUM 147 MMOL/L (136-145)
--- NOTE | 2018-09-16 07:19 | NUR ---
HAND-OFF: Report given to Cherri CURRY. Endorsed plan of care.
--- NOTE | 2018-09-16 07:20 | NUR ---
NURSE NOTES: Received report from ANTOINETTE Velasquez. Patient is resting in bed, sleeping in stable condition. Breathing unlabored in Room Air. G Tube is running at 30 ml/h, will check the residual and raise it up to meet the goal . Urinary catheter is draining well. Patient is on bilateral soft wrist restraint. Bed in lowest position with two side rails up, brakes on, call light and bed side table within reach. Bed alarm on. Will continue plan of care.
[2018-09-16 08:00] VITALS: BP 142/78
[2018-09-16] MEDS: Heparin 5000 units/ml inj SUBQ SCH ×2 (08:14→22:04)
--- NOTE | 2018-09-16 11:00 | Nephrology Progress Note ---
Assessment/Plan Problem List: (1) BRYANT (acute kidney injury) Assessment: eresolved (2) Rhabdomyolysis (3) Septic shock (4) Failure to thrive syndrome, adult (5) Pneumonia Assessment Acute Renal Failure: ? Drug induced Was on Lisinopril and Celebrex Rhabdo: High CPK Dehydration Shock Sepsis / Pneumonia / UTI Malnutrition Plan PEG 09/15 K and Phos IV as needed SS Insulin off pressors antibiotics monitor renal parameters per orders to med surg Subjective ROS Limited/Unobtainable: No Constitutional: Reports: malaise Objective Objective Last 24 Hour Vital Signs Date Time Temp Pulse Resp B/P (MAP) Pulse Ox O2 Delivery O2 Flow Rate FiO2 09/16/18 09:00 Nasal Cannula 2.0 09/16/18 08:00 97.7 80 21 142/78 (99) 94 09/16/18 04:20 85 09/16/18 04:20 97.9 85 18 148/75 (99) 96 09/16/18 00:00 99.0 91 18 141/90 (107) 95 09/16/18 00:00 90 09/15/18 22:00 149/86 (107) 09/15/18 21:00 Nasal Cannula 2.0 09/15/18 20:00 80 09/15/18 20:00 99.0 91 18 159/91 (113) 95 09/15/18 16:00 98.2 84 17 158/82 (107) 97 09/15/18 16:00 94 09/15/18 13:05 98.2 84 16 153/79 (103) 95 09/15/18 12:58 78 18 99 09/15/18 12:56 78 18 99 09/15/18 12:55 83 20 147/94 97 Room Air 09/15/18 12:30 82 19 150/85 100 Nasal Cannula 3 09/15/18 12:25 86 19 147/87 100 Nasal Cannula 3 09/15/18 12:20 83 19 144/82 99 Nasal Cannula 3 09/15/18 12:15 97.4 78 18 109/74 99 Nasal Cannula 3 09/15/18 12:00 93 Intake and Output 09/15/18 09/16/18 18:59 06:59 Intake Total 1560 ml Output Total 800 ml 800 ml Balance 760 ml -800 ml IV Total 550 ml Tube Feeding 10 ml Other 1000 ml Output Urine Total 800 ml 800 ml # Bowel Movements 2 Laboratory Tests 09/16/18 05:30: White Blood Count 7.6, Red Blood Count 2.94L, Hemoglobin 9.1L, Hematocrit 28.2L , Mean Corpuscular Volume 96, Mean Corpuscular Hemoglobin 30.9, Mean Corpuscular Hemoglobin Concent 32.3, Red Cell Distribution Width 13.0, Platelet Count 228, Mean Platelet Volume 7.3, Neutrophils (%) (Auto) 66.6, Lymphocytes (% ) (Auto) 22.8, Monocytes (%) (Auto) 6.3, Eosinophils (%) (Auto) 3.6H, Basophils (%) (Auto) 0.6, Sodium Level 147H, Potassium Level 3.3L, Chloride Level 113H, Carbon Dioxide Level 22, Anion Gap 12, Blood Urea Nitrogen 9, Creatinine 1.2, Estimat Glomerular Filtration Rate , Glucose Level 107H, Calcium Level 8.8, Phosphorus Level 3.0, Magnesium Level 2.1, Total Bilirubin 0.8, Gamma Glutamyl Transpeptidase 200H, Aspartate Amino Transf (AST/SGOT) 97H, Alanine Aminotransferase (ALT/SGPT) 150H, Alkaline Phosphatase 170H, C-Reactive Protein , Quantitative 19.4H, Pro-B-Type Natriuretic Peptide 848H, Total Protein 6.8, Albumin 1.8L, Globulin 5.0, Albumin/Globulin Ratio 0.4L Height (Feet): 5 Height (Inches): 4.00 Weight (Pounds): 130 General Appearance: no apparent distress Cardiovascular: normal rate Respiratory/Chest: decreased breath sounds Abdomen: other - PEG Minh Phipps MD Sep 16, 2018 11:00
[2018-09-16] MEDS: Vancomycin 1 GM in D5W 275 ML IVPB SCH (11:04)
--- NOTE | 2018-09-16 11:59 | Surgery Progress Note ---
Surgery Progress Note Subjective Additional Comments no acute events. resting comfortable. labs improved. Objective Last 24 Hour Vital Signs Date Time Temp Pulse Resp B/P (MAP) Pulse Ox O2 Delivery O2 Flow Rate FiO2 09/16/18 09:00 Nasal Cannula 2.0 09/16/18 08:00 97.7 80 21 142/78 (99) 94 09/16/18 04:20 85 09/16/18 04:20 97.9 85 18 148/75 (99) 96 09/16/18 00:00 99.0 91 18 141/90 (107) 95 09/16/18 00:00 90 09/15/18 22:00 149/86 (107) 09/15/18 21:00 Nasal Cannula 2.0 09/15/18 20:00 80 09/15/18 20:00 99.0 91 18 159/91 (113) 95 09/15/18 16:00 98.2 84 17 158/82 (107) 97 09/15/18 16:00 94 09/15/18 13:05 98.2 84 16 153/79 (103) 95 09/15/18 12:58 78 18 99 09/15/18 12:56 78 18 99 09/15/18 12:55 83 20 147/94 97 Room Air 09/15/18 12:30 82 19 150/85 100 Nasal Cannula 3 09/15/18 12:25 86 19 147/87 100 Nasal Cannula 3 09/15/18 12:20 83 19 144/82 99 Nasal Cannula 3 09/15/18 12:15 97.4 78 18 109/74 99 Nasal Cannula 3 09/15/18 12:00 93 I&O Intake and Output 09/15/18 09/16/18 19:00 07:00 Intake Total 1510 ml Output Total 800 ml 800 ml Balance 710 ml -800 ml IV Total 500 ml Tube Feeding 10 ml Other 1000 ml Output Urine Total 800 ml 800 ml # Bowel Movements 2 Dressing: dry Wound: clean Cardiovascular: RSR Respiratory: decreased breath sounds Abdomen: soft, present bowel sounds, non-distended Extremities: no cyanosis Laboratory Tests Test 09/16/18 05:30 White Blood Count 7.6 K/UL (4.8-10.8) Red Blood Count 2.94 M/UL (4.70-6.10) L Hemoglobin 9.1 G/DL (14.2-18.0) L Hematocrit 28.2 % (42.0-52.0) L Mean Corpuscular Volume 96 FL (80-99) Mean Corpuscular Hemoglobin 30.9 PG (27.0-31.0) Mean Corpuscular Hemoglobin Concent 32.3 G/DL (32.0-36.0) Red Cell Distribution Width 13.0 % (11.6-14.8) Platelet Count 228 K/UL (150-450) Mean Platelet Volume 7.3 FL (6.5-10.1) Neutrophils (%) (Auto) 66.6 % (45.0-75.0) Lymphocytes (%) (Auto) 22.8 % (20.0-45.0) Monocytes (%) (Auto) 6.3 % (1.0-10.0) Eosinophils (%) (Auto) 3.6 % (0.0-3.0) H Basophils (%) (Auto) 0.6 % (0.0-2.0) Sodium Level 147 MMOL/L (136-145) H Potassium Level 3.3 MMOL/L (3.5-5.1) L Chloride Level 113 MMOL/L (98-107) H Carbon Dioxide Level 22 MMOL/L (21-32) Anion Gap 12 mmol/L (5-15) Blood Urea Nitrogen 9 mg/dL (7-18) Creatinine 1.2 MG/DL (0.55-1.30) Estimat Glomerular Filtration Rate mL/min (>60) Glucose Level 107 MG/DL (74-106) H Calcium Level 8.8 MG/DL (8.5-10.1) Phosphorus Level 3.0 MG/DL (2.5-4.9) Magnesium Level 2.1 MG/DL (1.8-2.4) Total Bilirubin 0.8 MG/DL (0.2-1.0) Gamma Glutamyl Transpeptidase 200 U/L (5-85) H Aspartate Amino Transf (AST/SGOT) 97 U/L (15-37) H Alanine Aminotransferase (ALT/SGPT) 150 U/L (12-78) H Alkaline Phosphatase 170 U/L (46-116) H C-Reactive Protein, Quantitative 19.4 mg/dL (0.00-0.90) H Pro-B-Type Natriuretic Peptide 848 pg/mL (0-125) H Total Protein 6.8 G/DL (6.4-8.2) Albumin 1.8 G/DL (3.4-5.0) L Globulin 5.0 g/dL Albumin/Globulin Ratio 0.4 (1.0-2.7) L Plan Problems: (1) Decubitus skin ulcer Assessment & Plan: Pt presented on admission with multiple pressure injuries. DTPI R trochanteric.Base of wound maroon and indurated (L)2cm x (W)5cm. Periwound without erythema or fluctuance. No evidence of skin breakdown sacrum or L trochanter. Non-blanchable erythema with fluctuance noted to medial R heel (L)4.5cm x (W) 4.5cm. DTPI noted to lateral L heel .Base of wound maroon and fluctuant(L)3.5cm x (W) 3cm.Periwound fluctuant but pink. Reabsorbing blood blister dorso/flexor R foot(L)1cm x (W)0.5cm.Base of wound purple fluctuant in center with dry borders. Non-blanchable erythema with fluctuance noted to distal/lateral R foot (L)1cm, x (W)1cm. Lateral R 5th metatarsal maroon and fluctuant.(L)1cm x (W)1cm. Non-blanchable erythema without fluctuance or induration lateral R malleolus(L) 0.5cm x (W)0.5cm .Periwound without erythema. Tx.Plan: Apply Cavilon Skin Barrier to R trochanter. Cover with Optifoam drsg. Change every 7 days and prn. Apply Cavilon Skin Barrier to L trochanter. Cover with Optifoam drsg.Change every 7 days and prn. Apply Moisture Barrier to Sacrum. Cover with Optifoam drsg. Change every 7 days and prn. Apply Cavilon Skin Barrier distal/lateral R foot, lateral R 5th metatarsal, lateral R malleolus,dorso/flexorR foot and R heel. Cover each site with Optifoam drsg. Change every 7 days and PRN. Apply Cavilon Skin Barrier to L heel. Cover with Optifoam drsg. Change every 7 days and prn. Reposition at least every 2hours or as tolerated. Place pillow between knees. Off-load heels with pillow. APM/RAVINDER Mattress overlay. (2) Pneumonia (3) BRYANT (acute kidney injury) (4) Septic shock Assessment & Plan: DAILY ESTIMATED NEEDS: Needs based on Wt loss, wound/ 53kg 30-35 kcals/kg 5392-7114 total kcals 1.25-1.5 g protein/kg 66-79 g total protein 25-30 mL/kg 6662-6992 total fluid mLs NUTRITION DIAGNOSIS: * Swallowing difficulty R/T dysphagia, decreased cognitive fxn as evidenced by CONVEX GRINDER recommends NPO at this time, w/ an order for NGT insertion. * Increased kcal/prot intake needs R/T wt loss, wound healing as evidenced by pt admitted w/ possible significant wt loss of 10 pounds/7.9% wt loss in <1 mo, w/ wound photos, not yet evaluated. * Altered nutrition related lab values R/T ARF, dehydration, diabetes as evidenced by elev Na (162), elev Creat (8.3->4.7), elev BGs (203 197), elev A1C 6.3. CURRENT DIET:NPO ENTERAL NUTRITION RECOMMENDATIONS: Glucerna 1.2 @ 56ml/hr x 24 hrs to provide 1344ml, 1613kcal, 80g prot, 1082ml free water * W/ GI access, initiate Glucerna 1.2 @ 26ml/hr x 6 hrs * Advance 10ml q 4-6 hrs as tolerated to goal rate of 56ml/hr x 24 hrs * HOB over 30 degrees/ water flush per MD ADDITIONAL RECOMMENDATIONS: * Per SNF, HT=63", GA=781ywf (on 08/30/18) * Monitor renal fxn- improving at this time * Monitor lytes w/ TF, replete as needed * F/up wound eval -> rec to add Lemuel 1pkt BID (5) Failure to thrive syndrome, adult Assessment & Plan: Needs nutritional supplementation G tube feeds (6) Rhabdomyolysis Reji Guy Sep 16, 2018 11:59
[2018-09-16 12:00] VITALS: BP 151/87
--- NOTE | 2018-09-16 12:32 | General Progress Note ---
Assessment/Plan Status: unchanged Assessment/Plan: 72 year old male admitted for septic shock 2/2 pna vs uti Septic shock likley 2/2 PNA vs UTI - resolved -Cont Vanc, Zosyn -f/u blood cultures -Monitor respiratory status -s/p 3L NS -ID Consult appreciated -Pulm/Crit consult appreciated -surgery consult appreciated -DC femoral line #BRYANT - resolved #rhabdomyolysis -Likley 2/2 shock vs drug induced, CK elevated poss rhabdo -trend CK - trending down -nephrology consult appreciated -CTM -avoid nephrotoxic medications #Hypernatremia likley 2/2 poor PO intake - improved -cont D5W -CTM -Nephrology consult appreciated #severe HypoKalemia #Hypomagnesemia -cont IV repletion -CTM #dysphagia #Failure to thrive -s/p PEG 09/15/18 -GI consult appreciated #Full code Subjective Date patient seen: Sep 16, 2018 Allergies: Coded Allergies: No Known Allergies (Unverified , 08/20/18) Subjective No acute overnight evetns, s/p PEG placement, NA improved, transfer to med/surg Objective Last 24 Hour Vital Signs Date Time Temp Pulse Resp B/P (MAP) Pulse Ox O2 Delivery O2 Flow Rate FiO2 09/16/18 09:00 Nasal Cannula 2.0 09/16/18 08:00 97.7 80 21 142/78 (99) 94 09/16/18 08:00 89 09/16/18 04:20 85 09/16/18 04:20 97.9 85 18 148/75 (99) 96 09/16/18 00:00 99.0 91 18 141/90 (107) 95 09/16/18 00:00 90 09/15/18 22:00 149/86 (107) 09/15/18 21:00 Nasal Cannula 2.0 09/15/18 20:00 80 09/15/18 20:00 99.0 91 18 159/91 (113) 95 09/15/18 16:00 98.2 84 17 158/82 (107) 97 09/15/18 16:00 94 09/15/18 13:05 98.2 84 16 153/79 (103) 95 09/15/18 12:58 78 18 99 09/15/18 12:56 78 18 99 09/15/18 12:55 83 20 147/94 97 Room Air Intake and Output 09/15/18 09/16/18 19:00 07:00 Intake Total 1510 ml Output Total 800 ml 800 ml Balance 710 ml -800 ml IV Total 500 ml Tube Feeding 10 ml Other 1000 ml Output Urine Total 800 ml 800 ml # Bowel Movements 2 Laboratory Tests 09/16/18 05:30: White Blood Count 7.6, Red Blood Count 2.94L, Hemoglobin 9.1L, Hematocrit 28.2L , Mean Corpuscular Volume 96, Mean Corpuscular Hemoglobin 30.9, Mean Corpuscular Hemoglobin Concent 32.3, Red Cell Distribution Width 13.0, Platelet Count 228, Mean Platelet Volume 7.3, Neutrophils (%) (Auto) 66.6, Lymphocytes (% ) (Auto) 22.8, Monocytes (%) (Auto) 6.3, Eosinophils (%) (Auto) 3.6H, Basophils (%) (Auto) 0.6, Sodium Level 147H, Potassium Level 3.3L, Chloride Level 113H, Carbon Dioxide Level 22, Anion Gap 12, Blood Urea Nitrogen 9, Creatinine 1.2, Estimat Glomerular Filtration Rate , Glucose Level 107H, Calcium Level 8.8, Phosphorus Level 3.0, Magnesium Level 2.1, Total Bilirubin 0.8, Gamma Glutamyl Transpeptidase 200H, Aspartate Amino Transf (AST/SGOT) 97H, Alanine Aminotransferase (ALT/SGPT) 150H, Alkaline Phosphatase 170H, C-Reactive Protein , Quantitative 19.4H, Pro-B-Type Natriuretic Peptide 848H, Total Protein 6.8, Albumin 1.8L, Globulin 5.0, Albumin/Globulin Ratio 0.4L Height (Feet): 5 Height (Inches): 4.00 Weight (Pounds): 130 Objective General Appearance: WD/WN, lethargic, confused Lines, tubes and drains: peripheral, central line HEENT: normocephalic, atraumatic, ng tube in place Neck: non-tender Respiratory/Chest: chest wall non-tender, no accessory muscle use Cardiovascular/Chest: normal peripheral pulses Abdomen: normal bowel sounds, +binder Neurologic: disoriented Kimberlyn Bonner MD Sep 16, 2018 12:32
--- NOTE | 2018-09-16 13:55 | NUR ---
TRANSFER TO FLOOR: Patient transferred to Med- surg, per Dr. Phipps's order. Report given to ANTOINETTE Leon. Belongings and medications given to receiving nurse. Family ( Zoniaalie Mills, step daughter) informed of transfer. Patient transferred in stable condition.
--- NOTE | 2018-09-16 15:11 | NUR ---
NURSE NOTES: Received pt from tel unit. pt awake, A/o x 1, calm. VS stable. no SOB noted. GT in place , pt tolerating well, no residual, 40 cc/hr. abd binder on. duggan in place. BLE contracted. restrains on BUE, skin intact, N/V intact. Dressing heels, hips and sacral CDI. fall, asp and contact precaution maintained. will continue to monitor.
--- NOTE | 2018-09-16 15:50 | Infectious Diseases Prog Note ---
Assessment/Plan Assessment/Plan ASSESSMENT AND PLAN: 1. sepsis, shock, fevers, leukocytosis, sirs, pneumonia, ? uti, mrsa colonization - vancomycin and zosyn - change to oral augmentin and doxycycline x 5 days - monitor labs and chest x-ray - off pressors, low grade temps noted - continue tx per primary team and consultants 2. Intensive care unit care and supportive measures. 3. Anemia. 4. Hyperlipidemia. 5. Acute kidney injury. 6. Multiple wounds were noted. Skin care per Surgery and protocol. 7. The patient has history of dementia. 8. History of dysphagia. 9. Aspiration risk. 10. Contractures. 11. Weakness. 12. Dementia. 13. Pre-glaucoma. 14. Depression. 15. Continue treatment per primary consultants. 16. No known allergies. 17. Social history is negative. 18. Family history is noncontributory. 19. MAR was noted. 20. Case was discussed with RN. 21. Case was discussed with Dr. Connolly. Subjective Constitutional: Denies: fever HEENT: Denies: congestion Respiratory: Denies: shortness of breath Cardiovascular: Denies: chest pain Gastrointestinal/Abdominal: Denies: nausea, vomiting, diarrhea Genitourinary: Reports: other - + duggan - urine slt cloudy Psychiatric: Denies: depression Skin: Denies: rash Hematologic: Denies: bleeding Musculoskeletal: Denies: pain Allergies: Coded Allergies: No Known Allergies (Unverified , 08/20/18) Objective Vital Signs Last 24 Hour Vital Signs Date Time Temp Pulse Resp B/P (MAP) Pulse Ox O2 Delivery O2 Flow Rate FiO2 09/16/18 12:00 86 09/16/18 12:00 98.2 91 22 151/87 (108) 95 09/16/18 09:00 Nasal Cannula 2.0 09/16/18 08:00 97.7 80 21 142/78 (99) 94 09/16/18 08:00 89 09/16/18 04:20 85 09/16/18 04:20 97.9 85 18 148/75 (99) 96 09/16/18 00:00 99.0 91 18 141/90 (107) 95 09/16/18 00:00 90 09/15/18 22:00 149/86 (107) 09/15/18 21:00 Nasal Cannula 2.0 09/15/18 20:00 80 09/15/18 20:00 99.0 91 18 159/91 (113) 95 09/15/18 16:00 98.2 84 17 158/82 (107) 97 09/15/18 16:00 94 Height (Feet): 5 Height (Inches): 4.00 Weight (Pounds): 130 General Appearance: no acute distress HEENT: normocephalic, atraumatic, anicteric, mucous membranes moist Respiratory/Chest: crackles/rales, rhonchi - bilaterally Cardiovascular: normal rate, regular rhythm, no gallop/murmur, no JVD Abdomen: normal bowel sounds, soft, non tender, no organomegaly, non distended Genitourinary: other - + duggan - urine clear Extremities: no cyanosis Skin: no rash Neurologic/Psychiatric: 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 Lungs/pleura: Slightly increased patchy opacity in the left lung. Decreased left pleural effusion. Mild elevation of the right hemidiaphragm. Heart/mediastinum: Normal. No cardiomegaly. Chest x-ray - 09/12/18 - Soft tissues: Unremarkable. Bones: No acute fracture. Degenerative changes of the visualized left acromioclavicular joints. Upper abdomen: Normal. IMPRESSION: Slightly increased patchy opacity in the left lung. Decreased left pleural effusion. Interval placement of an enteric tube which terminates in the region of the gastric antrum. Chest x-ray - 09/14/18 - Procedure: XRAY Chest 1v Indication: Dyspnea Comparison: 09/12/2018 A single view chest radiograph was obtained. Findings: Left pulmonary infiltrate again noted without change. NG tube again noted. Heart size is stable. IMPRESSION: No change from the prior examination. Microbiology Date/Time Source Procedure Growth Status 09/09/18 16:40 Blood Blood Culture - Final NO GROWTH AFTER 5 DAYS Complete 09/10/18 16:25 Sputum Induced Gram Stain - Final Complete 09/10/18 16:25 Sputum Induced Sputum Culture - Final NORMAL UPPER RESPIRATORY ADRIANA PRESENT Complete 09/09/18 17:10 Urine,Clean Catch Urine Culture - Final Complete 09/09/18 16:30 Rectum VRE Culture - Final NO VANCOMYCIN RESISTANT ENTEROCOCCUS ... Complete 09/09/18 16:30 Rectum - Final NO CARBAPENEM-RESISTANT ENTEROBACTERI... Complete Laboratory Tests Test 09/16/18 05:30 White Blood Count 7.6 K/UL (4.8-10.8) Red Blood Count 2.94 M/UL (4.70-6.10) L Hemoglobin 9.1 G/DL (14.2-18.0) L Hematocrit 28.2 % (42.0-52.0) L Mean Corpuscular Volume 96 FL (80-99) Mean Corpuscular Hemoglobin 30.9 PG (27.0-31.0) Mean Corpuscular Hemoglobin Concent 32.3 G/DL (32.0-36.0) Red Cell Distribution Width 13.0 % (11.6-14.8) Platelet Count 228 K/UL (150-450) Mean Platelet Volume 7.3 FL (6.5-10.1) Neutrophils (%) (Auto) 66.6 % (45.0-75.0) Lymphocytes (%) (Auto) 22.8 % (20.0-45.0) Monocytes (%) (Auto) 6.3 % (1.0-10.0) Eosinophils (%) (Auto) 3.6 % (0.0-3.0) H Basophils (%) (Auto) 0.6 % (0.0-2.0) Sodium Level 147 MMOL/L (136-145) H Potassium Level 3.3 MMOL/L (3.5-5.1) L Chloride Level 113 MMOL/L (98-107) H Carbon Dioxide Level 22 MMOL/L (21-32) Anion Gap 12 mmol/L (5-15) Blood Urea Nitrogen 9 mg/dL (7-18) Creatinine 1.2 MG/DL (0.55-1.30) Estimat Glomerular Filtration Rate mL/min (>60) Glucose Level 107 MG/DL (74-106) H Calcium Level 8.8 MG/DL (8.5-10.1) Phosphorus Level 3.0 MG/DL (2.5-4.9) Magnesium Level 2.1 MG/DL (1.8-2.4) Total Bilirubin 0.8 MG/DL (0.2-1.0) Gamma Glutamyl Transpeptidase 200 U/L (5-85) H Aspartate Amino Transf (AST/SGOT) 97 U/L (15-37) H Alanine Aminotransferase (ALT/SGPT) 150 U/L (12-78) H Alkaline Phosphatase 170 U/L (46-116) H C-Reactive Protein, Quantitative 19.4 mg/dL (0.00-0.90) H Pro-B-Type Natriuretic Peptide 848 pg/mL (0-125) H Total Protein 6.8 G/DL (6.4-8.2) Albumin 1.8 G/DL (3.4-5.0) L Globulin 5.0 g/dL Albumin/Globulin Ratio 0.4 (1.0-2.7) L Current Medications Medications (Trade) Dose Ordered Sig/Altagracia Route PRN Reason Start Time Stop Time Status Last Admin Dose Admin Dextrose (Dextrose 50%) 25 ml Q30M PRN IV Hypoglycemia 09/16/18 14:29 10/10/18 14:28 Dextrose (Dextrose 50%) 50 ml Q30M PRN IV Hypoglycemia 09/16/18 14:29 10/10/18 14:28 Heparin Sodium (Porcine) (Heparin 5000 units/ml) 5,000 units EVERY 12 HOURS SUBQ 09/16/18 21:00 10/09/18 20:59 Insulin Aspart (NovoLOG) Q5H SUBQ 09/16/18 18:00 10/10/18 11:59 Lansoprazole (Prevacid) 30 mg BID GT 09/16/18 18:00 10/16/18 17:59 Metoclopramide HCl (Reglan) 5 mg Q6H PRN ORAL Nausea & Vomiting 09/16/18 14:30 10/16/18 14:29 Piperacillin Sod/ Tazobactam Sod 3.375 gm/Sodium Chloride 110 ml @ 27.5 mls/hr Q8H IVPB 09/16/18 17:00 09/19/18 08:59 Potassium Chloride (K-Dur) 20 meq TWICE A DAY GT 09/16/18 18:00 10/16/18 17:59 Quetiapine Fumarate (SEROquel) 25 mg Q6H PRN ORAL agitation 09/16/18 14:32 10/14/18 14:31 Vancomycin HCl (Vanco rx to dose) 1 ea DAILY PRN MISC Per rx protocol 09/16/18 14:30 10/16/18 14:29 Vancomycin HCl 1 gm/Dextrose 275 ml @ 183.708 mls/hr Q24H IVPB 09/17/18 11:00 09/21/18 10:59 Bonny Rincon MD Sep 16, 2018 15:50
[2018-09-16 16:00] VITALS: BP 160/87
--- NOTE | 2018-09-16 16:02 | NUR ---
CASE MANAGEMENT:REVIEW 09/16/2018 SI: SEPTIC SHOCK. HYPERNATREMIA dysphagia.....PEG PLACEMENT FOR TODAY T 98.2 HR 91 RR 22 B/P 151/87 SATS 95% ON 2L/NC NA 147 K 3.3 CL 113 GLU 107 GGT 200 AST 97 ALT 150ALP 170 IS: IV VANCOMYCIN Q24 IV ZOSYN Q8HRS IV PEPCID QD IV K-PHOS X1 IV MAG SULFATE Q1HRS X4 : MED[facility]SURG STATUS [facility]
[2018-09-16] MEDS ORDERED: Piperacillin/Tazobactam 3.375 GM in NS 110 ML IVPB SCH (17:00)
[2018-09-16 20:00] VITALS: BP 163/88
--- NOTE | 2018-09-16 20:00 | NUR ---
NURSE NOTES: Received report from ANTOINETTE Leon. Patient A&Ox1. On room air, no signs of distress or labored breathing. IVs intact, patent, and saline locked. Bed in lowest position with call light in reach. Will continue with plan of care. Addendum: 09/16/18 at 2010 by Vandana Multani RN GT intact, patent, and infusing feeding. Manriquez intact, patent, and draining urine.
--- NOTE | 2018-09-16 21:15 | Progress Note ---
DATE: 09/16/2018 SUBJECTIVE: The patient is in no acute distress. Continues to be in restraints as he has episodes of agitation. MENTAL STATUS EXAMINATION: The patient is asleep, arousable with verbal stimuli. Mood is agitated to neutral. Affect is flat. Thought process, there is a paucity of thought content. ASSESSMENT: Stable at baseline. PLAN: 1. Continue the restraints. 2. Continue the current medications. 3. Continue to follow. Rob Baltazar M.D. DR: REMY JOB#: [id number] CC:
[2018-09-16] MEDS: Augmentin 875mg Tab ORAL SCH (22:05)
[2018-09-17] VITALS: BP 146/75
[2018-09-17 04:00] VITALS: BP 137/83
[2018-09-17] MEDS: NovoLOG Insulin Flexpen SUBQ SCH ×5 (05:34→23:32)
[2018-09-17 05:59] LABS: BASOPHILS % (AUTO) 0.8 % (0.0-2.0); EOSINOPHILS % (AUTO) 2.9 % (0.0-3.0); HEMATOCRIT 28.5 % (42.0-52.0); HEMOGLOBIN 9.3 G/DL (14.2-18.0); LYMPHOCYTES % (AUTO) 19.5 % (20.0-45.0); MEAN CORPUSCULAR VOLUME 96 FL (80-99); MONOCYTES % (AUTO) 4.8 % (1.0-10.0); PLATELET COUNT 271 K/UL (150-450); RED BLOOD COUNT 2.98 M/UL (4.70-6.10); RED CELL DISTRIBUTION WIDTH 13.7 % (11.6-14.8); WHITE BLOOD COUNT 8.6 K/UL (4.8-10.8)
[2018-09-17 07:07] LABS: ALANINE AMINOTRANSFERASE 159 U/L (12-78); ALBUMIN/GLOBULIN RATIO 0.4 (1.0-2.7); ALKALINE PHOSPHATASE 187 U/L (46-116); ANION GAP 11 mmol/L (5-15); ASPARTATE AMINO TRANSFERASE 116 U/L (15-37); BILIRUBIN,TOTAL 0.5 MG/DL (0.2-1.0); BLOOD UREA NITROGEN 12 mg/dL (7-18); CALCIUM 8.9 MG/DL (8.5-10.1); CARBON DIOXIDE 25 MMOL/L (21-32); CHLORIDE 108 MMOL/L (98-107); CREATININE 1.1 MG/DL (0.55-1.30); PHOSPHORUS 2.7 MG/DL (2.5-4.9); POTASSIUM 3.2 MMOL/L (3.5-5.1); SODIUM 143 MMOL/L (136-145)
--- NOTE | 2018-09-17 07:30 | NUR ---
NURSE NOTES: Patient lying in bed awake. No signs and symptoms of pain or distress at this time. G-tube patent and feeding on going as ordered. IV dressing intact and dry. wound dressing intact and dry. Bed lowest position. Call light within reach. Will continue to monitor.
[2018-09-17 08:00] VITALS: BP 138/59
[2018-09-17] MEDS: Augmentin 875mg Tab ORAL SCH ×2 (08:54→23:30)
[2018-09-17] MEDS: Heparin 5000 units/ml inj SUBQ SCH ×2 (08:56→23:30)
[2018-09-17] MEDS ORDERED: Vancomycin 1 GM in D5W 275 ML IVPB SCH (11:00)
--- NOTE | 2018-09-17 11:19 | GI Progress Note ---
Assessment/Plan Problems: (1) Encounter for PEG (percutaneous endoscopic gastrostomy) ICD Codes: Z43.1 - Encounter for attention to gastrostomy SNOMED: 216635203, 060887526 (2) Severe malnutrition ICD Codes: E43 - Unspecified severe protein-calorie malnutrition SNOMED: 66287677 (3) Dehydration ICD Codes: E86.0 - Dehydration SNOMED: 03016472 (4) Electrolyte imbalance ICD Codes: E87.8 - Other disorders of electrolyte and fluid balance, not elsewhere classified SNOMED: 542289969 (5) Failure to thrive syndrome, adult ICD Codes: R62.7 - Failure to thrive syndrome, adult SNOMED: 378947819 Status: stable Status Narrative Discussed with Dr. Romero. Assessment/Plan s/p PEG GTF GT care and flush dc planning per primary team The patient was seen and examined at bedside and all new and available data was reviewed in the patients chart. I agree with the above findings, impression and plan. (Patient seen earlier today. Signature stamp does not reflect patient encounter time.). - Ramiro Romero MD Subjective Subjective Limited Discussed with RN Objective Last 24 Hour Vital Signs Date Time Temp Pulse Resp B/P (MAP) Pulse Ox O2 Delivery O2 Flow Rate FiO2 09/17/18 04:00 97.9 81 18 137/83 (101) 95 09/17/18 00:00 98.9 78 18 146/75 (98) 94 09/16/18 21:00 Room Air 09/16/18 20:00 98.6 88 18 163/88 (113) 93 09/16/18 16:00 98.4 91 18 160/87 (111) 96 09/16/18 12:00 86 09/16/18 12:00 98.2 91 22 151/87 (108) 95 Intake and Output 09/16/18 09/17/18 18:59 06:59 Intake Total 1910 ml 520 ml Output Total 801 ml 1150 ml Balance 1109 ml -630 ml Intake Free Water 200 ml IV Total 500 ml Tube Feeding 50 ml 520 ml Other 1160 ml Output Urine Total 800 ml 1150 ml Stool Total 1 ml # Bowel Movements 2 Laboratory Tests Test 09/17/18 05:00 White Blood Count 8.6 K/UL (4.8-10.8) Red Blood Count 2.98 M/UL (4.70-6.10) L Hemoglobin 9.3 G/DL (14.2-18.0) L Hematocrit 28.5 % (42.0-52.0) L Mean Corpuscular Volume 96 FL (80-99) Mean Corpuscular Hemoglobin 31.3 PG (27.0-31.0) H Mean Corpuscular Hemoglobin Concent 32.8 G/DL (32.0-36.0) Red Cell Distribution Width 13.7 % (11.6-14.8) Platelet Count 271 K/UL (150-450) Mean Platelet Volume 7.4 FL (6.5-10.1) Neutrophils (%) (Auto) 72.0 % (45.0-75.0) Lymphocytes (%) (Auto) 19.5 % (20.0-45.0) L Monocytes (%) (Auto) 4.8 % (1.0-10.0) Eosinophils (%) (Auto) 2.9 % (0.0-3.0) Basophils (%) (Auto) 0.8 % (0.0-2.0) Sodium Level 143 MMOL/L (136-145) Potassium Level 3.2 MMOL/L (3.5-5.1) L Chloride Level 108 MMOL/L (98-107) H Carbon Dioxide Level 25 MMOL/L (21-32) Anion Gap 11 mmol/L (5-15) Blood Urea Nitrogen 12 mg/dL (7-18) Creatinine 1.1 MG/DL (0.55-1.30) Estimat Glomerular Filtration Rate mL/min (>60) Glucose Level 115 MG/DL (74-106) H Calcium Level 8.9 MG/DL (8.5-10.1) Phosphorus Level 2.7 MG/DL (2.5-4.9) Magnesium Level 1.8 MG/DL (1.8-2.4) Total Bilirubin 0.5 MG/DL (0.2-1.0) Aspartate Amino Transf (AST/SGOT) 116 U/L (15-37) H Alanine Aminotransferase (ALT/SGPT) 159 U/L (12-78) H Alkaline Phosphatase 187 U/L (46-116) H C-Reactive Protein, Quantitative 14.4 mg/dL (0.00-0.90) H Pro-B-Type Natriuretic Peptide 764 pg/mL (0-125) H Total Protein 7.1 G/DL (6.4-8.2) Albumin 2.0 G/DL (3.4-5.0) L Globulin 5.1 g/dL Albumin/Globulin Ratio 0.4 (1.0-2.7) L Height (Feet): 5 Height (Inches): 4.00 Weight (Pounds): 130 General Appearance: no apparent distress Cardiovascular: normal rate Respiratory/Chest: normal breath sounds, no respiratory distress Abdominal Exam: normal bowel sounds, non tender, soft, GT site - c/d/i Extremities: non-tender Stevo Mliligan NP Sep 17, 2018 11:19
[2018-09-17 12:00] VITALS: BP 152/96
--- NOTE | 2018-09-17 12:12 | Nephrology Progress Note ---
Assessment/Plan Problem List: (1) BRYANT (acute kidney injury) Assessment: eresolved (2) Rhabdomyolysis (3) Septic shock (4) Failure to thrive syndrome, adult (5) Pneumonia Assessment Acute Renal Failure: ? Drug induced Was on Lisinopril and Celebrex Rhabdo: High CPK Dehydration Shock Sepsis / Pneumonia / UTI Malnutrition Plan PEG 7/3 K and Phos IV as needed SS Insulin off pressors antibiotics monitor renal parameters per orders to med surg Subjective ROS Limited/Unobtainable: No Constitutional: Reports: malaise, weakness Objective Objective Last 24 Hour Vital Signs Date Time Temp Pulse Resp B/P (MAP) Pulse Ox O2 Delivery O2 Flow Rate FiO2 09/17/18 09:00 Room Air 09/17/18 08:00 98.4 90 20 138/59 (85) 98 09/17/18 04:00 97.9 81 18 137/83 (101) 95 09/17/18 00:00 98.9 78 18 146/75 (98) 94 09/16/18 21:00 Room Air 09/16/18 20:00 98.6 88 18 163/88 (113) 93 09/16/18 16:00 98.4 91 18 160/87 (111) 96 Intake and Output 09/16/18 09/17/18 18:59 06:59 Intake Total 1910 ml 520 ml Output Total 801 ml 1150 ml Balance 1109 ml -630 ml Intake Free Water 200 ml IV Total 500 ml Tube Feeding 50 ml 520 ml Other 1160 ml Output Urine Total 800 ml 1150 ml Stool Total 1 ml # Bowel Movements 2 Laboratory Tests 09/17/18 05:00: White Blood Count 8.6, Red Blood Count 2.98L, Hemoglobin 9.3L, Hematocrit 28.5L , Mean Corpuscular Volume 96, Mean Corpuscular Hemoglobin 31.3H, Mean Corpuscular Hemoglobin Concent 32.8, Red Cell Distribution Width 13.7, Platelet Count 271, Mean Platelet Volume 7.4, Neutrophils (%) (Auto) 72.0, Lymphocytes (% ) (Auto) 19.5L, Monocytes (%) (Auto) 4.8, Eosinophils (%) (Auto) 2.9, Basophils (%) (Auto) 0.8, Sodium Level 143, Potassium Level 3.2L, Chloride Level 108H, Carbon Dioxide Level 25, Anion Gap 11, Blood Urea Nitrogen 12, Creatinine 1.1, Estimat Glomerular Filtration Rate , Glucose Level 115H, Calcium Level 8.9, Phosphorus Level 2.7, Magnesium Level 1.8, Total Bilirubin 0.5, Aspartate Amino Transf (AST/SGOT) 116H, Alanine Aminotransferase (ALT/SGPT) 159H, Alkaline Phosphatase 187H, C-Reactive Protein, Quantitative 14.4H, Pro-B-Type Natriuretic Peptide 764H, Total Protein 7.1, Albumin 2.0L, Globulin 5.1, Albumin /Globulin Ratio 0.4L Height (Feet): 5 Height (Inches): 4.00 Weight (Pounds): 130 General Appearance: no apparent distress Cardiovascular: normal rate Respiratory/Chest: decreased breath sounds Abdomen: distended, other - PEG Minh Phipps MD Sep 17, 2018 12:12
--- NOTE | 2018-09-17 13:42 | Surgery Progress Note ---
Surgery Progress Note Subjective Additional Comments no acute events comfortable stable resting Objective Last 24 Hour Vital Signs Date Time Temp Pulse Resp B/P (MAP) Pulse Ox O2 Delivery O2 Flow Rate FiO2 09/17/18 09:00 Room Air 09/17/18 08:00 98.4 90 20 138/59 (85) 98 09/17/18 04:00 97.9 81 18 137/83 (101) 95 09/17/18 00:00 98.9 78 18 146/75 (98) 94 09/16/18 21:00 Room Air 09/16/18 20:00 98.6 88 18 163/88 (113) 93 09/16/18 16:00 98.4 91 18 160/87 (111) 96 I&O Intake and Output 09/16/18 09/17/18 19:00 07:00 Intake Total 1950 ml 525 ml Output Total 801 ml 1150 ml Balance 1149 ml -625 ml Intake Free Water 200 ml IV Total 500 ml Tube Feeding 90 ml 525 ml Other 1160 ml Output Urine Total 800 ml 1150 ml Stool Total 1 ml # Bowel Movements 2 Dressing: saturated Wound: clean Cardiovascular: RSR Respiratory: clear Abdomen: soft, present bowel sounds, non-distended Extremities: no cyanosis Laboratory Tests Test 09/17/18 05:00 White Blood Count 8.6 K/UL (4.8-10.8) Red Blood Count 2.98 M/UL (4.70-6.10) L Hemoglobin 9.3 G/DL (14.2-18.0) L Hematocrit 28.5 % (42.0-52.0) L Mean Corpuscular Volume 96 FL (80-99) Mean Corpuscular Hemoglobin 31.3 PG (27.0-31.0) H Mean Corpuscular Hemoglobin Concent 32.8 G/DL (32.0-36.0) Red Cell Distribution Width 13.7 % (11.6-14.8) Platelet Count 271 K/UL (150-450) Mean Platelet Volume 7.4 FL (6.5-10.1) Neutrophils (%) (Auto) 72.0 % (45.0-75.0) Lymphocytes (%) (Auto) 19.5 % (20.0-45.0) L Monocytes (%) (Auto) 4.8 % (1.0-10.0) Eosinophils (%) (Auto) 2.9 % (0.0-3.0) Basophils (%) (Auto) 0.8 % (0.0-2.0) Sodium Level 143 MMOL/L (136-145) Potassium Level 3.2 MMOL/L (3.5-5.1) L Chloride Level 108 MMOL/L (98-107) H Carbon Dioxide Level 25 MMOL/L (21-32) Anion Gap 11 mmol/L (5-15) Blood Urea Nitrogen 12 mg/dL (7-18) Creatinine 1.1 MG/DL (0.55-1.30) Estimat Glomerular Filtration Rate mL/min (>60) Glucose Level 115 MG/DL (74-106) H Calcium Level 8.9 MG/DL (8.5-10.1) Phosphorus Level 2.7 MG/DL (2.5-4.9) Magnesium Level 1.8 MG/DL (1.8-2.4) Total Bilirubin 0.5 MG/DL (0.2-1.0) Aspartate Amino Transf (AST/SGOT) 116 U/L (15-37) H Alanine Aminotransferase (ALT/SGPT) 159 U/L (12-78) H Alkaline Phosphatase 187 U/L (46-116) H C-Reactive Protein, Quantitative 14.4 mg/dL (0.00-0.90) H Pro-B-Type Natriuretic Peptide 764 pg/mL (0-125) H Total Protein 7.1 G/DL (6.4-8.2) Albumin 2.0 G/DL (3.4-5.0) L Globulin 5.1 g/dL Albumin/Globulin Ratio 0.4 (1.0-2.7) L Plan Problems: (1) Decubitus skin ulcer Assessment & Plan: Pt presented on admission with multiple pressure injuries. DTPI R trochanteric.Base of wound maroon and indurated (L)2cm x (W)5cm. Periwound without erythema or fluctuance. No evidence of skin breakdown sacrum or L trochanter. Non-blanchable erythema with fluctuance noted to medial R heel (L)4.5cm x (W) 4.5cm. DTPI noted to lateral L heel .Base of wound maroon and fluctuant(L)3.5cm x (W) 3cm.Periwound fluctuant but pink. Reabsorbing blood blister dorso/flexor R foot(L)1cm x (W)0.5cm.Base of wound purple fluctuant in center with dry borders. Non-blanchable erythema with fluctuance noted to distal/lateral R foot (L)1cm, x (W)1cm. Lateral R 5th metatarsal maroon and fluctuant.(L)1cm x (W)1cm. Non-blanchable erythema without fluctuance or induration lateral R malleolus(L) 0.5cm x (W)0.5cm .Periwound without erythema. Tx.Plan: Apply Cavilon Skin Barrier to R trochanter. Cover with Optifoam drsg. Change every 7 days and prn. Apply Cavilon Skin Barrier to L trochanter. Cover with Optifoam drsg.Change every 7 days and prn. Apply Moisture Barrier to Sacrum. Cover with Optifoam drsg. Change every 7 days and prn. Apply Cavilon Skin Barrier distal/lateral R foot, lateral R 5th metatarsal, lateral R malleolus,dorso/flexorR foot and R heel. Cover each site with Optifoam drsg. Change every 7 days and PRN. Apply Cavilon Skin Barrier to L heel. Cover with Optifoam drsg. Change every 7 days and prn. Reposition at least every 2hours or as tolerated. Place pillow between knees. Off-load heels with pillow. APM/RAVINDER Mattress overlay. (2) Pneumonia (3) BRYANT (acute kidney injury) (4) Septic shock Assessment & Plan: DAILY ESTIMATED NEEDS: Needs based on Wt loss, wound/ 53kg 30-35 kcals/kg 0289-6141 total kcals 1.25-1.5 g protein/kg 66-79 g total protein 25-30 mL/kg 4994-2264 total fluid mLs NUTRITION DIAGNOSIS: * Swallowing difficulty R/T dysphagia, decreased cognitive fxn as evidenced by BLOOD BANK SPECIALIST recommends NPO at this time, w/ an order for NGT insertion. * Increased kcal/prot intake needs R/T wt loss, wound healing as evidenced by pt admitted w/ possible significant wt loss of 10 pounds/7.9% wt loss in <1 mo, w/ wound photos, not yet evaluated. * Altered nutrition related lab values R/T ARF, dehydration, diabetes as evidenced by elev Na (162), elev Creat (8.3->4.7), elev BGs (203 197), elev A1C 6.3. CURRENT DIET:NPO ENTERAL NUTRITION RECOMMENDATIONS: Glucerna 1.2 @ 56ml/hr x 24 hrs to provide 1344ml, 1613kcal, 80g prot, 1082ml free water * W/ GI access, initiate Glucerna 1.2 @ 26ml/hr x 6 hrs * Advance 10ml q 4-6 hrs as tolerated to goal rate of 56ml/hr x 24 hrs * HOB over 30 degrees/ water flush per MD ADDITIONAL RECOMMENDATIONS: * Per SNF, HT=63", LE=292nwt (on 08/30/18) * Monitor renal fxn- improving at this time * Monitor lytes w/ TF, replete as needed * F/up wound eval -> rec to add Lemuel 1pkt BID (5) Failure to thrive syndrome, adult Assessment & Plan: Needs nutritional supplementation G tube feeds (6) Rhabdomyolysis Reji Guy Sep 17, 2018 13:42
--- NOTE | 2018-09-17 14:14 | NUR ---
WEEKLY SWALLOW AND SPEECH THERAPY SUMMARY: PATIENT SEEN FOR DYSPHAGIA, SEE SWALLOW EVALUATION REPORT. PATIENT IS ON NONORAL FEEDINGS PEG. GOALS NOT MET FOR INTAKE BUT GOALS MET FOR STAFF EDUCATED IN POSTED ORAL CARE PRECAUTIONS. PLAN WILL CONTINUE TO MONITOR FOR READINESS OR PO INTAKE AND MOD BARIUM SWALLOW STUDY.
--- NOTE | 2018-09-17 14:19 | NUR ---
RD ASSESSMENT & RECOMMENDATIONS SEE CARE ACTIVITY FOR COMPLETE ASSESSMENT DAILY ESTIMATED NEEDS: Needs based on Wt loss, wound/ 53kg 30-35 kcals/kg 1396-3166 total kcals 1.25-1.5 g protein/kg 66-79 g total protein 25-30 mL/kg 3046-8942 total fluid mLs NUTRITION DIAGNOSIS: * Swallowing difficulty R/T dysphagia, decreased cognitive fxn as evidenced by GENERAL HELPER recommends NPO at this time, now s/p PEG placement, on GT feeding. * Increased kcal/prot intake needs R/T wt loss, wound healing as evidenced by pt admitted w/ possible significant wt loss of 10 pounds/7.9% wt loss in <1 mo, w/ DTPI at R trochanter and non-blanchable erythema @ rt heel. * Altered nutrition related lab values R/T ARF, dehydration, diabetes as evidenced by elev Na (162-> wnl), elev BUN (114-> now wnl), elev Creat (8.3->wnl), elev BGs (203 197- now improved), elev A1C 6.3. CURRENT TF:Glucerna 1.2 @ 55ml/hr x 24 hrs ENTERAL NUTRITION RECOMMENDATIONS: Glucerna 1.2 @ 56ml/hr x 24 hrs to provide 1344ml, 1613kcal, 80g prot, 1082ml free water * Increase goal rate to 56ml/hr x 24 hrs * HOB over 30 degrees/ water flush per MD ADDITIONAL RECOMMENDATIONS: * Per SNF, HT=63", PW=744cga (on 08/30/18) * Monitor renal fxn- NOW NORMALIZED * Monitor lytes w/ TF, replete as needed * Wound healing: add Lemuel 1pkt BID, Vit C 250mg QD . .
--- NOTE | 2018-09-17 15:03 | NUR ---
CASE MANAGEMENT:REVIEW 09/17/18 SI: SEPTIC SHOCK. BRYANT. RHABDO. DYSPHAGIA....PEG PLACED 09/15/18 98.4 90 20 138/59 98% ON RA H/H-9.3/28.5 K-3.2 AST/ALT+116/159 IS: K-DUR GT BID HEPARIN SQ Q12 AUGMENTIN PO Q12 DOXYCYCLINE PO Q12 : MED/SURG STATUS 4 EAST DCP: FROM [facility]
--- NOTE | 2018-09-17 15:19 | NUR ---
DISCHARGE PLANNING NO DISCHARGE ORDER NOTED OF YET FAXED CLINICALS TO [facility] T: [phone] F: [phone]
[2018-09-17 16:00] VITALS: BP 152/93
--- NOTE | 2018-09-17 17:47 | General Progress Note ---
Assessment/Plan Status: stable Assessment/Plan: 72 year old male admitted for septic shock 2/2 pna vs uti Septic shock likley 2/2 PNA vs UTI - resolved - d/c Vanc, Zosyn changed to augmentin and doxy -f/u blood cultures -Monitor respiratory status -s/p 3L NS -ID Consult appreciated -Pulm/Crit consult appreciated -surgery consult appreciated -DC femoral line #BRYANT - resolved #rhabdomyolysis -Likley 2/2 shock vs drug induced, CK elevated poss rhabdo -trend CK - trending down -nephrology consult appreciated -CTM -avoid nephrotoxic medications #Hypernatremia likley 2/2 poor PO intake - improved -cont D5W -CTM -Nephrology consult appreciated #severe HypoKalemia #Hypomagnesemia -cont IV repletion -CTM #dysphagia #Failure to thrive -s/p PEG 09/15/18 -GI consult appreciated #Dispo -CM consulted to dc back to [facility] #Full code Subjective Date patient seen: Sep 17, 2018 Allergies: Coded Allergies: No Known Allergies (Unverified , 08/20/18) Subjective No acute overnight evetns, s/p PEG placement, NA improved, ABX changed to PO, CM consulted to dc back to SNF Objective Last 24 Hour Vital Signs Date Time Temp Pulse Resp B/P (MAP) Pulse Ox O2 Delivery O2 Flow Rate FiO2 09/17/18 16:00 99.4 101 20 152/93 (112) 98 09/17/18 12:00 99.2 99 20 152/96 (114) 97 09/17/18 09:00 Room Air 09/17/18 08:00 98.4 90 20 138/59 (85) 98 09/17/18 04:00 97.9 81 18 137/83 (101) 95 09/17/18 00:00 98.9 78 18 146/75 (98) 94 09/16/18 21:00 Room Air 09/16/18 20:00 98.6 88 18 163/88 (113) 93 Intake and Output 09/16/18 09/17/18 19:00 07:00 Intake Total 1950 ml 525 ml Output Total 801 ml 1150 ml Balance 1149 ml -625 ml Intake Free Water 200 ml IV Total 500 ml Tube Feeding 90 ml 525 ml Other 1160 ml Output Urine Total 800 ml 1150 ml Stool Total 1 ml # Bowel Movements 2 Laboratory Tests 09/17/18 05:00: White Blood Count 8.6, Red Blood Count 2.98L, Hemoglobin 9.3L, Hematocrit 28.5L , Mean Corpuscular Volume 96, Mean Corpuscular Hemoglobin 31.3H, Mean Corpuscular Hemoglobin Concent 32.8, Red Cell Distribution Width 13.7, Platelet Count 271, Mean Platelet Volume 7.4, Neutrophils (%) (Auto) 72.0, Lymphocytes (% ) (Auto) 19.5L, Monocytes (%) (Auto) 4.8, Eosinophils (%) (Auto) 2.9, Basophils (%) (Auto) 0.8, Sodium Level 143, Potassium Level 3.2L, Chloride Level 108H, Carbon Dioxide Level 25, Anion Gap 11, Blood Urea Nitrogen 12, Creatinine 1.1, Estimat Glomerular Filtration Rate , Glucose Level 115H, Calcium Level 8.9, Phosphorus Level 2.7, Magnesium Level 1.8, Total Bilirubin 0.5, Aspartate Amino Transf (AST/SGOT) 116H, Alanine Aminotransferase (ALT/SGPT) 159H, Alkaline Phosphatase 187H, C-Reactive Protein, Quantitative 14.4H, Pro-B-Type Natriuretic Peptide 764H, Total Protein 7.1, Albumin 2.0L, Globulin 5.1, Albumin /Globulin Ratio 0.4L Height (Feet): 5 Height (Inches): 4.00 Weight (Pounds): 130 Objective General Appearance: WD/WN, lethargic, confused Lines, tubes and drains: peripheral, central line HEENT: normocephalic, atraumatic, ng tube in place Neck: non-tender Respiratory/Chest: chest wall non-tender, no accessory muscle use Cardiovascular/Chest: normal peripheral pulses Abdomen: normal bowel sounds, +binder Neurologic: disoriented Kibmerlyn Bonner MD Sep 17, 2018 17:46
--- NOTE | 2018-09-17 19:30 | NUR ---
HAND-OFF: Report given to Vandana RN. Patient in stable condition.
--- NOTE | 2018-09-17 19:35 | NUR ---
NURSE NOTES: Received report from ANTOINETTE Jha. Patient on room air, no signs of distress or labored breathing. IVs intact, patent, and saline locked. G-tube intact, patent, and infusing fluids. Manriquez intact, patent, and draining urine. Bilateral soft wrist restraints on. Bed in lowest position with call light in reach.
[2018-09-17 20:00] VITALS: BP 147/93
[2018-09-18] VITALS (9 sets, daily range): BP systolic 141–176; BP diastolic 5–98
--- NOTE | 2018-09-18 00:30 | Progress Note ---
DATE: 09/17/2018 SUBJECTIVE: The patient is in bed, resting, in no acute distress, in restrains, and has waxing and waning consciousness. MENTAL STATUS EXAMINATION: The patient's mental condition is unchanged since previous encounter. Mood is neutral to anxious. Affect is constricted. Congruent mood. Thought process is concrete. Thought content, there is a paucity of thought content. Cognition, severely impaired. ASSESSMENT: Encephalopathy. PLAN: We will continue the restrains. Continue the current medications. Rob Baltazar M.D. DR: GENEVIEVE JOB#: [id number] CC:
--- NOTE | 2018-09-18 06:14 | General Progress Note ---
Assessment/Plan Problem List: (1) Severe malnutrition ICD Codes: E43 - Unspecified severe protein-calorie malnutrition SNOMED: 78761907 (2) Dehydration ICD Codes: E86.0 - Dehydration SNOMED: 01488736 (3) Pneumonia ICD Codes: J18.9 - Pneumonia, unspecified organism SNOMED: 014119952 (4) Decubitus skin ulcer ICD Codes: L89.90 - Pressure ulcer of unspecified site, unspecified stage SNOMED: 847457206 (5) Failure to thrive syndrome, adult ICD Codes: R62.7 - Failure to thrive syndrome, adult SNOMED: 165820445 (6) Elevated LFTs ICD Codes: R94.5 - Abnormal results of liver function studies SNOMED: 173441482, 552914165 Status: stable Assessment/Plan: s/p PEG GTF GT care and flush abd us fu LFTS Subjective ROS Limited/Unobtainable: No Allergies: Coded Allergies: No Known Allergies (Unverified , 08/20/18) Objective Last 24 Hour Vital Signs Date Time Temp Pulse Resp B/P (MAP) Pulse Ox O2 Delivery O2 Flow Rate FiO2 09/18/18 04:00 98.2 85 20 141/90 (107) 96 09/18/18 00:00 99.4 97 18 165/94 (117) 94 09/17/18 21:00 Room Air 09/17/18 20:00 98.2 94 19 147/93 (111) 94 09/17/18 16:00 99.4 101 20 152/93 (112) 98 09/17/18 12:00 99.2 99 20 152/96 (114) 97 09/17/18 09:00 Room Air 09/17/18 08:00 98.4 90 20 138/59 (85) 98 Intake and Output 09/17/18 09/18/18 19:00 07:00 Intake Total 50 ml Output Total 600 ml Balance -550 ml Tube Feeding 50 ml Output Urine Total 600 ml Height (Feet): 5 Height (Inches): 4.00 Weight (Pounds): 130 General Appearance: no apparent distress EENT: normal ENT inspection Neck: supple Cardiovascular: normal rate Respiratory/Chest: decreased breath sounds Abdomen: normal bowel sounds, non tender, soft Extremities: non-tender Ramiro Romero MD Sep 18, 2018 06:14
[2018-09-18] MEDS: NovoLOG Insulin Flexpen SUBQ SCH ×4 (06:39→21:13)
[2018-09-18 07:24] LABS: BASOPHILS % (AUTO) 0.4 % (0.0-2.0); HEMATOCRIT 28.1 % (42.0-52.0); HEMOGLOBIN 9.1 G/DL (14.2-18.0); LYMPHOCYTES % (AUTO) 20.8 % (20.0-45.0); MEAN CORPUSCULAR VOLUME 96 FL (80-99); MONOCYTES % (AUTO) 5.1 % (1.0-10.0); NEUTROPHILS % (AUTO) 71.7 % (45.0-75.0); PLATELET COUNT 296 K/UL (150-450); RED BLOOD COUNT 2.92 M/UL (4.70-6.10); RED CELL DISTRIBUTION WIDTH 12.5 % (11.6-14.8); WHITE BLOOD COUNT 10.4 K/UL (4.8-10.8)
--- NOTE | 2018-09-18 07:35 | NUR ---
NURSE NOTES: Report received from ANTOINETTE Ross. Patient is resting in bed in stable condition. Alert and oriented x1, Filipino speaker. No signs and symptoms of acute distress noted at this time. Patient has urinary catheter and draining well . Breathing un labored in room air. Bilateral soft restraint on. Bed in lowest position with two side rails up. Bed side table and call light within reach. Will follow the plan of care.
[2018-09-18 07:47] LABS: ANION GAP 10 mmol/L (5-15); BLOOD UREA NITROGEN 15 mg/dL (7-18); CALCIUM 9.3 MG/DL (8.5-10.1); CARBON DIOXIDE 24 MMOL/L (21-32); CHLORIDE 111 MMOL/L (98-107); POTASSIUM 3.9 MMOL/L (3.5-5.1); SODIUM 145 MMOL/L (136-145)
--- NOTE | 2018-09-18 08:16 | NUR ---
HAND-OFF: Report given to ANTOINETTE Valadez.
[2018-09-18] MEDS: Augmentin 875mg Tab ORAL SCH (09:03)
[2018-09-18] MEDS: Heparin 5000 units/ml inj SUBQ SCH ×2 (09:06→21:12)
--- NOTE | 2018-09-18 10:50 | NUR ---
CHARGE NURSE NOTES: Per Dr Gabriel< pt will be ready to be discharge tomorrow 09/19/18. Called [facility] Roland, Spoke to Adrienne. Per Adrienne Pt has an assigned bed 7B Addendum: 09/18/18 at 1057 by Janelle Dhillon RN Per Dr Barba
--- NOTE | 2018-09-18 10:53 | General Progress Note ---
Assessment/Plan Status: stable Assessment/Plan: Assessment/Plan Status: stable Assessment/Plan: 72 year old male admitted for septic shock 2/2 pna vs uti Septic shock likley 2/2 PNA vs UTI - resolved - d/c Vanc, Zosyn changed to augmentin and doxy -f/u blood cultures -Monitor respiratory status -s/p 3L NS -ID Consult appreciated. On oral antibiotics until 09/21 -Pulm/Crit consult appreciated -surgery consult appreciated -DC femoral line done - AM labs as he is having increasing WBC today from yesterday. Follow up LFT's #BRYANT - resolved #rhabdomyolysis -Likley 2/2 shock vs drug induced, CK elevated poss rhabdo -trend CK - trending down -nephrology consult appreciated -CTM -avoid nephrotoxic medications #Hypernatremia likley 2/2 poor PO intake - improved -cont D5W -CTM -Nephrology consult appreciated #severe HypoKalemia #Hypomagnesemia -cont IV repletion -CTM #dysphagia #Failure to thrive -s/p PEG 09/15/18 -GI consult appreciated #Dispo -CM consulted to dc back to SNF at [facility] where he is a current resident. #Full code Subjective ROS Limited/Unobtainable: Yes Allergies: Coded Allergies: No Known Allergies (Unverified , 08/20/18) Objective Last 24 Hour Vital Signs Date Time Temp Pulse Resp B/P (MAP) Pulse Ox O2 Delivery O2 Flow Rate FiO2 09/18/18 09:00 Room Air 09/18/18 08:00 99.4 98 19 151/5 (53) 96 09/18/18 04:00 98.2 85 20 141/90 (107) 96 09/18/18 00:00 99.4 97 18 165/94 (117) 94 09/17/18 21:00 Room Air 09/17/18 20:00 98.2 94 19 147/93 (111) 94 09/17/18 16:00 99.4 101 20 152/93 (112) 98 09/17/18 12:00 99.2 99 20 152/96 (114) 97 Intake and Output 09/17/18 09/18/18 18:59 06:59 Intake Total 95 ml 780 ml Output Total 600 ml Balance -505 ml 780 ml Intake Free Water 120 ml Tube Feeding 95 ml 660 ml Output Urine Total 600 ml Laboratory Tests 09/18/18 06:00: White Blood Count 10.4, Red Blood Count 2.92L, Hemoglobin 9.1L, Hematocrit 28.1L , Mean Corpuscular Volume 96, Mean Corpuscular Hemoglobin 31.3H, Mean Corpuscular Hemoglobin Concent 32.5, Red Cell Distribution Width 12.5, Platelet Count 296, Mean Platelet Volume 6.5, Neutrophils (%) (Auto) 71.7, Lymphocytes (% ) (Auto) 20.8, Monocytes (%) (Auto) 5.1, Eosinophils (%) (Auto) 2.0, Basophils ( %) (Auto) 0.4, Sodium Level 145, Potassium Level 3.9, Chloride Level 111H, Carbon Dioxide Level 24, Anion Gap 10, Blood Urea Nitrogen 15, Creatinine 1.0, Estimat Glomerular Filtration Rate , Glucose Level 119H, Calcium Level 9.3 Height (Feet): 5 Height (Inches): 4.00 Weight (Pounds): 138 General Appearance: WD/WN, no apparent distress, thin EENT: PERRL/EOMI, normal ENT inspection Neck: non-tender Respiratory/Chest: lungs clear, normal breath sounds Abdomen: normal bowel sounds, non tender Extremities: normal range of motion Skin: normal pigmentation Fan Barba MD Sep 18, 2018 10:52
--- NOTE | 2018-09-18 16:14 | Surgery Progress Note ---
Surgery Progress Note Subjective Additional Comments no acute events. resting comfortable. no n/v/f/c. labs noted exam stable. Objective Last 24 Hour Vital Signs Date Time Temp Pulse Resp B/P (MAP) Pulse Ox O2 Delivery O2 Flow Rate FiO2 09/18/18 12:00 100.2 79 18 142/70 (94) 97 09/18/18 09:00 Room Air 09/18/18 08:01 99.4 98 19 151/98 (115) 96 09/18/18 04:00 98.2 85 20 141/90 (107) 96 09/18/18 00:00 99.4 97 18 165/94 (117) 94 09/17/18 21:00 Room Air 09/17/18 20:00 98.2 94 19 147/93 (111) 94 I&O Intake and Output 09/17/18 09/18/18 18:59 06:59 Intake Total 95 ml 780 ml Output Total 600 ml Balance -505 ml 780 ml Intake Free Water 120 ml Tube Feeding 95 ml 660 ml Output Urine Total 600 ml Dressing: dry Wound: clean Cardiovascular: RSR Respiratory: clear Abdomen: soft, present bowel sounds, non-distended Extremities: no cyanosis Laboratory Tests Test 09/18/18 06:00 White Blood Count 10.4 K/UL (4.8-10.8) Red Blood Count 2.92 M/UL (4.70-6.10) L Hemoglobin 9.1 G/DL (14.2-18.0) L Hematocrit 28.1 % (42.0-52.0) L Mean Corpuscular Volume 96 FL (80-99) Mean Corpuscular Hemoglobin 31.3 PG (27.0-31.0) H Mean Corpuscular Hemoglobin Concent 32.5 G/DL (32.0-36.0) Red Cell Distribution Width 12.5 % (11.6-14.8) Platelet Count 296 K/UL (150-450) Mean Platelet Volume 6.5 FL (6.5-10.1) Neutrophils (%) (Auto) 71.7 % (45.0-75.0) Lymphocytes (%) (Auto) 20.8 % (20.0-45.0) Monocytes (%) (Auto) 5.1 % (1.0-10.0) Eosinophils (%) (Auto) 2.0 % (0.0-3.0) Basophils (%) (Auto) 0.4 % (0.0-2.0) Sodium Level 145 MMOL/L (136-145) Potassium Level 3.9 MMOL/L (3.5-5.1) Chloride Level 111 MMOL/L (98-107) H Carbon Dioxide Level 24 MMOL/L (21-32) Anion Gap 10 mmol/L (5-15) Blood Urea Nitrogen 15 mg/dL (7-18) Creatinine 1.0 MG/DL (0.55-1.30) Estimat Glomerular Filtration Rate mL/min (>60) Glucose Level 119 MG/DL (74-106) H Calcium Level 9.3 MG/DL (8.5-10.1) Plan Problems: (1) Decubitus skin ulcer Assessment & Plan: Pt presented on admission with multiple pressure injuries. DTPI R trochanteric.Base of wound maroon and indurated (L)2cm x (W)5cm. Periwound without erythema or fluctuance. No evidence of skin breakdown sacrum or L trochanter. Non-blanchable erythema with fluctuance noted to medial R heel (L)4.5cm x (W) 4.5cm. DTPI noted to lateral L heel .Base of wound maroon and fluctuant(L)3.5cm x (W) 3cm.Periwound fluctuant but pink. Reabsorbing blood blister dorso/flexor R foot(L)1cm x (W)0.5cm.Base of wound purple fluctuant in center with dry borders. Non-blanchable erythema with fluctuance noted to distal/lateral R foot (L)1cm, x (W)1cm. Lateral R 5th metatarsal maroon and fluctuant.(L)1cm x (W)1cm. Non-blanchable erythema without fluctuance or induration lateral R malleolus(L) 0.5cm x (W)0.5cm .Periwound without erythema. Tx.Plan: Apply Cavilon Skin Barrier to R trochanter. Cover with Optifoam drsg. Change every 7 days and prn. Apply Cavilon Skin Barrier to L trochanter. Cover with Optifoam drsg.Change every 7 days and prn. Apply Moisture Barrier to Sacrum. Cover with Optifoam drsg. Change every 7 days and prn. Apply Cavilon Skin Barrier distal/lateral R foot, lateral R 5th metatarsal, lateral R malleolus,dorso/flexorR foot and R heel. Cover each site with Optifoam drsg. Change every 7 days and PRN. Apply Cavilon Skin Barrier to L heel. Cover with Optifoam drsg. Change every 7 days and prn. Reposition at least every 2hours or as tolerated. Place pillow between knees. Off-load heels with pillow. APM/RAVINDER Mattress overlay. (2) Pneumonia (3) BRYANT (acute kidney injury) (4) Septic shock Assessment & Plan: DAILY ESTIMATED NEEDS: Needs based on Wt loss, wound/ 53kg 30-35 kcals/kg 9777-7743 total kcals 1.25-1.5 g protein/kg 66-79 g total protein 25-30 mL/kg 9174-6817 total fluid mLs NUTRITION DIAGNOSIS: * Swallowing difficulty R/T dysphagia, decreased cognitive fxn as evidenced by [employer] recommends NPO at this time, w/ an order for NGT insertion. * Increased kcal/prot intake needs R/T wt loss, wound healing as evidenced by pt admitted w/ possible significant wt loss of 10 pounds/7.9% wt loss in <1 mo, w/ wound photos, not yet evaluated. * Altered nutrition related lab values R/T ARF, dehydration, diabetes as evidenced by elev Na (162), elev Creat (8.3->4.7), elev BGs (203 197), elev A1C 6.3. CURRENT DIET:NPO ENTERAL NUTRITION RECOMMENDATIONS: Glucerna 1.2 @ 56ml/hr x 24 hrs to provide 1344ml, 1613kcal, 80g prot, 1082ml free water * W/ GI access, initiate Glucerna 1.2 @ 26ml/hr x 6 hrs * Advance 10ml q 4-6 hrs as tolerated to goal rate of 56ml/hr x 24 hrs * HOB over 30 degrees/ water flush per MD ADDITIONAL RECOMMENDATIONS: * Per SNF, HT=63", TO=219osj (on 08/30/18) * Monitor renal fxn- improving at this time * Monitor lytes w/ TF, replete as needed * F/up wound eval -> rec to add Lemuel 1pkt BID (5) Failure to thrive syndrome, adult Assessment & Plan: Needs nutritional supplementation G tube feeds (6) Rhabdomyolysis Reji Guy Sep 18, 2018 16:14
--- NOTE | 2018-09-18 16:50 | Infectious Diseases Prog Note ---
Assessment/Plan Assessment/Plan ASSESSMENT AND PLAN: 1. sepsis, shock, persistent fevers, leukocytosis better, sirs, pneumonia, ? uti , mrsa colonization, ? c.diff., fungemia risk, diarrhea - change to ceftin, flagyl, diflucan - monitor labs and chest x-ray - check cultures for fevers, check c.diff. for diarrhea - continue tx per primary team and consultants - d/w RN 2. Intensive care unit care and supportive measures. 3. Anemia. 4. Hyperlipidemia. 5. Acute kidney injury. 6. Multiple wounds were noted. Skin care per Surgery and protocol. 7. The patient has history of dementia. 8. History of dysphagia. 9. Aspiration risk. 10. Contractures. 11. Weakness. 12. Dementia. 13. Pre-glaucoma. 14. Depression. 15. Continue treatment per primary consultants. 16. No known allergies. 17. Social history is negative. 18. Family history is noncontributory. 19. MAR was noted. 20. Case was discussed with RN. 21. Case was discussed with Dr. Connolly. Subjective Constitutional: Reports: fever - lgt noted , fatigue, other - opens eyes HEENT: Reports: congestion - mild Respiratory: Reports: shortness of breath - mild Cardiovascular: Denies: chest pain Gastrointestinal/Abdominal: Reports: diarrhea; Denies: nausea, vomiting Neurologic: Denies: headache Psychiatric: Denies: depression Skin: Denies: rash Hematologic: Denies: bleeding Musculoskeletal: Denies: pain Allergies: Coded Allergies: No Known Allergies (Unverified , 08/20/18) Objective Vital Signs Last 24 Hour Vital Signs Date Time Temp Pulse Resp B/P (MAP) Pulse Ox O2 Delivery O2 Flow Rate FiO2 09/18/18 12:00 100.2 79 18 142/70 (94) 97 09/18/18 09:00 Room Air 09/18/18 08:01 99.4 98 19 151/98 (115) 96 09/18/18 04:00 98.2 85 20 141/90 (107) 96 09/18/18 00:00 99.4 97 18 165/94 (117) 94 09/17/18 21:00 Room Air 09/17/18 20:00 98.2 94 19 147/93 (111) 94 Height (Feet): 5 Height (Inches): 4.00 Weight (Pounds): 138 General Appearance: no acute distress HEENT: normocephalic, atraumatic, anicteric, mucous membranes moist Respiratory/Chest: no accessory muscle use, crackles/rales, rhonchi - bilaterally Cardiovascular: normal rate, regular rhythm, no gallop/murmur, no JVD Abdomen: normal bowel sounds, soft, non tender, no organomegaly, non distended Genitourinary: other - + duggan - urine slt cloudy Extremities: no cyanosis Skin: no rash, no ulcers Neurologic/Psychiatric: alert, responsive Lymphatic: no neck adenopathy Musculoskeletal: no effusion Objective COMPARISON: Chest radiograph on 09/10/2018 FINDINGS: Hardware: Interval placement of an enteric tube which terminates in the region of the gastric antrum. Lungs/pleura: Slightly increased patchy opacity in the left lung. Decreased left pleural effusion. Mild elevation of the right hemidiaphragm. Heart/mediastinum: Normal. No cardiomegaly. Chest x-ray - 09/12/18 - Soft tissues: Unremarkable. Bones: No acute fracture. Degenerative changes of the visualized left acromioclavicular joints. Upper abdomen: Normal. IMPRESSION: Slightly increased patchy opacity in the left lung. Decreased left pleural effusion. Interval placement of an enteric tube which terminates in the region of the gastric antrum. Chest x-ray - 09/14/18 - Procedure: XRAY Chest 1v Indication: Dyspnea Comparison: 09/12/2018 A single view chest radiograph was obtained. Findings: Left pulmonary infiltrate again noted without change. NG tube again noted. Heart size is stable. IMPRESSION: No change from the prior examination. Microbiology Date/Time Source Procedure Growth Status 09/09/18 16:40 Blood Blood Culture - Final NO GROWTH AFTER 5 DAYS Complete 09/10/18 16:25 Sputum Induced Gram Stain - Final Complete 09/10/18 16:25 Sputum Induced Sputum Culture - Final NORMAL UPPER RESPIRATORY ADRIANA PRESENT Complete 09/09/18 17:10 Urine,Clean Catch Urine Culture - Final Complete 09/09/18 16:30 Rectum VRE Culture - Final NO VANCOMYCIN RESISTANT ENTEROCOCCUS ... Complete 09/09/18 16:30 Rectum - Final NO CARBAPENEM-RESISTANT ENTEROBACTERI... Complete Laboratory Tests Test 09/18/18 06:00 White Blood Count 10.4 K/UL (4.8-10.8) Red Blood Count 2.92 M/UL (4.70-6.10) L Hemoglobin 9.1 G/DL (14.2-18.0) L Hematocrit 28.1 % (42.0-52.0) L Mean Corpuscular Volume 96 FL (80-99) Mean Corpuscular Hemoglobin 31.3 PG (27.0-31.0) H Mean Corpuscular Hemoglobin Concent 32.5 G/DL (32.0-36.0) Red Cell Distribution Width 12.5 % (11.6-14.8) Platelet Count 296 K/UL (150-450) Mean Platelet Volume 6.5 FL (6.5-10.1) Neutrophils (%) (Auto) 71.7 % (45.0-75.0) Lymphocytes (%) (Auto) 20.8 % (20.0-45.0) Monocytes (%) (Auto) 5.1 % (1.0-10.0) Eosinophils (%) (Auto) 2.0 % (0.0-3.0) Basophils (%) (Auto) 0.4 % (0.0-2.0) Sodium Level 145 MMOL/L (136-145) Potassium Level 3.9 MMOL/L (3.5-5.1) Chloride Level 111 MMOL/L (98-107) H Carbon Dioxide Level 24 MMOL/L (21-32) Anion Gap 10 mmol/L (5-15) Blood Urea Nitrogen 15 mg/dL (7-18) Creatinine 1.0 MG/DL (0.55-1.30) Estimat Glomerular Filtration Rate mL/min (>60) Glucose Level 119 MG/DL (74-106) H Calcium Level 9.3 MG/DL (8.5-10.1) Current Medications Medications (Trade) Dose Ordered Sig/Altagracia Route PRN Reason Start Time Stop Time Status Last Admin Dose Admin Amoxicillin/ Clavulanate Potassium (Augmentin) 875 mg EVERY 12 HOURS ORAL 09/16/18 21:00 09/23/18 20:59 09/18/18 09:03 Dextrose (Dextrose 50%) 25 ml Q30M PRN IV Hypoglycemia 09/16/18 14:29 10/10/18 14:28 Dextrose (Dextrose 50%) 50 ml Q30M PRN IV Hypoglycemia 09/16/18 14:29 10/10/18 14:28 Doxycycline Monohydrate (Doxycycline Monohydrate) 100 mg EVERY 12 HOURS ORAL 09/16/18 21:00 09/23/18 20:59 09/18/18 09:03 Heparin Sodium (Porcine) (Heparin 5000 units/ml) 5,000 units EVERY 12 HOURS SUBQ 09/16/18 21:00 10/09/18 20:59 09/18/18 09:06 Insulin Aspart (NovoLOG) Q5H SUBQ 09/16/18 18:00 10/10/18 11:59 09/18/18 15:28 Lansoprazole (Prevacid) 30 mg BID GT 09/16/18 18:00 10/16/18 17:59 09/18/18 09:03 Metoclopramide HCl (Reglan) 5 mg Q6H PRN ORAL Nausea & Vomiting 09/16/18 14:30 10/16/18 14:29 Potassium Chloride (K-Dur) 40 meq TWICE A DAY GT 09/17/18 18:00 10/16/18 17:59 09/18/18 09:03 Quetiapine Fumarate (SEROquel) 25 mg Q6H PRN ORAL agitation 09/16/18 14:32 10/14/18 14:31 Bonny Rinocn MD Sep 18, 2018 16:50
[2018-09-18] MEDS: HydrALAZINE 25mg tab ORAL PRN (18:32)
--- NOTE | 2018-09-18 18:58 | Nephrology Progress Note ---
Assessment/Plan Problem List: (1) BRYANT (acute kidney injury) Assessment: eresolved (2) Rhabdomyolysis (3) Septic shock (4) Failure to thrive syndrome, adult (5) Pneumonia Assessment Acute Renal Failure: ? Drug induced Was on Lisinopril and Celebrex Rhabdo: High CPK Dehydration Shock Sepsis / Pneumonia / UTI Malnutrition Plan PEG 7/3 K and Phos IV as needed SS Insulin off pressors antibiotics monitor renal parameters per orders to med surg Subjective ROS Limited/Unobtainable: No Constitutional: Reports: malaise, weakness Objective Objective Last 24 Hour Vital Signs Date Time Temp Pulse Resp B/P (MAP) Pulse Ox O2 Delivery O2 Flow Rate FiO2 09/18/18 18:32 176/97 09/18/18 17:50 176/97 (123) 09/18/18 16:00 100.3 92 20 161/94 (116) 95 09/18/18 12:00 100.2 79 18 142/70 (94) 97 09/18/18 09:00 Room Air 09/18/18 08:01 99.4 98 19 151/98 (115) 96 09/18/18 04:00 98.2 85 20 141/90 (107) 96 09/18/18 00:00 99.4 97 18 165/94 (117) 94 09/17/18 21:00 Room Air 09/17/18 20:00 98.2 94 19 147/93 (111) 94 Intake and Output 09/17/18 09/18/18 19:00 07:00 Intake Total 105 ml 725 ml Output Total 600 ml Balance -495 ml 725 ml Intake Free Water 120 ml Tube Feeding 105 ml 605 ml Output Urine Total 600 ml Laboratory Tests 09/18/18 06:00: White Blood Count 10.4, Red Blood Count 2.92L, Hemoglobin 9.1L, Hematocrit 28.1L , Mean Corpuscular Volume 96, Mean Corpuscular Hemoglobin 31.3H, Mean Corpuscular Hemoglobin Concent 32.5, Red Cell Distribution Width 12.5, Platelet Count 296, Mean Platelet Volume 6.5, Neutrophils (%) (Auto) 71.7, Lymphocytes (% ) (Auto) 20.8, Monocytes (%) (Auto) 5.1, Eosinophils (%) (Auto) 2.0, Basophils ( %) (Auto) 0.4, Sodium Level 145, Potassium Level 3.9, Chloride Level 111H, Carbon Dioxide Level 24, Anion Gap 10, Blood Urea Nitrogen 15, Creatinine 1.0, Estimat Glomerular Filtration Rate , Glucose Level 119H, Calcium Level 9.3 Height (Feet): 5 Height (Inches): 4.00 Weight (Pounds): 138 General Appearance: no apparent distress Cardiovascular: normal peripheral pulses Respiratory/Chest: lungs clear Abdomen: soft Minh Phipps MD Sep 18, 2018 18:58
--- NOTE | 2018-09-18 19:25 | NUR ---
HAND-OFF: Report given to ANTOINETTE Melara.
--- NOTE | 2018-09-18 19:30 | NUR ---
NURSE NOTES: RECEIVED PT FROM ANTOINETTE NAVARRO. PT IS AWAKE, AAOX1, ON ROOM AIR, NO ACUTE DISTRESS NOTED. G-TUBE IS RUNNING GLUCERNA 1.2 AT 55 ML/HR. AUSCULTATED FOR PLACEMENT, NO RESIDUALS, PT TOLERATES FEEDING WELL. FLUSHED G-TUBE WITH 100CC. G-TUBE FEEDING IS DRY AND INTACT. ABDOMEN BINDER IS IN PLACE. DRESSINGS ON TROCHANTER AND HEELS ARE DRY AND INTACT. IV ON L HAND 22G IS INTACT AND PATENT. PT IS ON BILATERAL SOFT WRIST RESTRAINTS. NO REDNESS. PULSES PRESENT ON BOTH ARMS. ROTHMAN CATH IS INTACT AND DRAINING WELL. BED IS LOCKED AT THE LOWEST POSITION, BED ALARMS ACTIVE, SIDE RAILS UP X2, CALL LIGHT IS WITHIN REACH. WILL CONTINUE TO MONITOR.
[2018-09-18] MEDS: metroNIDAZOLE 500mg tab ORAL SCH (21:13)
[2018-09-19] VITALS: BP 166/95
[2018-09-19] MEDS: HydrALAZINE 25mg tab ORAL PRN ×3 (00:44→22:12)
[2018-09-19] MEDS: NovoLOG Insulin Flexpen SUBQ SCH ×5 (00:49→22:20)
--- NOTE | 2018-09-19 02:58 | NUR ---
NURSE NOTES: MIDNIGHT BP WAS AT 160/91.PRN HYDRALAZINE 25MG GIVEN. REASSESSED PT. BP IS NOW AT 145/87. PT IS COMFORTABLE, CALM, AND SLEEPING.
[2018-09-19 04:00] VITALS: BP 159/90
[2018-09-19] MEDS: metroNIDAZOLE 500mg tab ORAL SCH ×3 (06:26→22:11)
--- NOTE | 2018-09-19 06:30 | Progress Note ---
DATE: 09/18/2018 SUBJECTIVE: The patient is lying in bed, no acute distress. Nonverbal. Continues to have episodes of agitation. MENTAL STATUS EXAMINATION: The patient was asleep, arousable, confused, disoriented. Mood was neutral. Affect was flat. There was a paucity of thought content. ASSESSMENT: agitation. PLAN: We will continue current medications. Continue restraints. Rob Baltazar M.D. DR: Maria Teresa JOB#: [id number] CC: BELEM
--- NOTE | 2018-09-19 07:20 | NUR ---
NURSE NOTES: TOOK PICTURES AND CHANGED DRESSINGS ON BILATERAL TROCHANTERS, AND LEFT HEEL.
--- NOTE | 2018-09-19 07:25 | NUR ---
HAND-OFF: Report given to ANTOINETTE FUENTES.
[2018-09-19 07:27] LABS: BASOPHILS % (AUTO) 0.6 % (0.0-2.0); EOSINOPHILS % (AUTO) 2.2 % (0.0-3.0); HEMATOCRIT 28.8 % (42.0-52.0); HEMOGLOBIN 9.4 G/DL (14.2-18.0); LYMPHOCYTES % (AUTO) 19.8 % (20.0-45.0); MEAN CORPUSCULAR VOLUME 96 FL (80-99); NEUTROPHILS % (AUTO) 72.5 % (45.0-75.0); PLATELET COUNT 359 K/UL (150-450); RED BLOOD COUNT 3.01 M/UL (4.70-6.10); WHITE BLOOD COUNT 12.6 K/UL (4.8-10.8)
--- NOTE | 2018-09-19 07:27 | NUR ---
NURSE NOTES: Pt resting in bed. soft restrains on , skin intact, N/V intact. no SOB noted. Pt on cont GT feeding. tolerating well, no residual. dressing faby hip, heels CDI. bed alarm on. will continue to monitor.
[2018-09-19 08:00] VITALS: BP 160/109
[2018-09-19 08:07] LABS: ALANINE AMINOTRANSFERASE 117 U/L (12-78); ALBUMIN 2.1 G/DL (3.4-5.0); ALBUMIN/GLOBULIN RATIO 0.4 (1.0-2.7); ALKALINE PHOSPHATASE 176 U/L (46-116); ANION GAP 11 mmol/L (5-15); ASPARTATE AMINO TRANSFERASE 69 U/L (15-37); BILIRUBIN,TOTAL 0.4 MG/DL (0.2-1.0); BLOOD UREA NITROGEN 16 mg/dL (7-18); CALCIUM 9.1 MG/DL (8.5-10.1); CARBON DIOXIDE 24 MMOL/L (21-32); CHLORIDE 110 MMOL/L (98-107); POTASSIUM 4.2 MMOL/L (3.5-5.1); SODIUM 145 MMOL/L (136-145)
[2018-09-19 08:18] LABS: CREATINE KINASE 58 U/L (26-308)
[2018-09-19] MEDS: Heparin 5000 units/ml inj SUBQ SCH ×2 (08:24→22:14)
--- NOTE | 2018-09-19 08:31 | Diagnostic Imaging Report ---
EXAM: XR Chest, 1 View CLINICAL HISTORY: INFECT TECHNIQUE: Frontal view of the chest. COMPARISON: Chest x-ray dated 09/14/18 FINDINGS: Lungs: Persistent patchy left perihilar consolidation, not significantly changed. Pleural space: Unremarkable. The costophrenic angles are sharp. No visible pneumothorax. Heart: Unremarkable. No cardiomegaly. Mediastinum: Unremarkable. Bones/joints: Unremarkable. Tubes, lines and devices: Interval removal of the NG tube. IMPRESSION: Persistent patchy left perihilar consolidation, not significantly changed.
[2018-09-19] MEDS: Fluconazole 100mg tab ORAL SCH (09:27)
--- NOTE | 2018-09-19 10:02 | General Progress Note ---
Assessment/Plan Problem List: (1) Severe malnutrition ICD Codes: E43 - Unspecified severe protein-calorie malnutrition SNOMED: 34318342 (2) Dehydration ICD Codes: E86.0 - Dehydration SNOMED: 82855053 (3) Pneumonia ICD Codes: J18.9 - Pneumonia, unspecified organism SNOMED: 550274155 (4) Decubitus skin ulcer ICD Codes: L89.90 - Pressure ulcer of unspecified site, unspecified stage SNOMED: 888586001 (5) Failure to thrive syndrome, adult ICD Codes: R62.7 - Failure to thrive syndrome, adult SNOMED: 594378116 (6) Elevated LFTs ICD Codes: R94.5 - Abnormal results of liver function studies SNOMED: 645992073, 158669720 Status: stable Assessment/Plan: s/p PEG GTF GT care and flush abd us fu LFTS Subjective ROS Limited/Unobtainable: No Allergies: Coded Allergies: No Known Allergies (Unverified , 08/20/18) Objective Last 24 Hour Vital Signs Date Time Temp Pulse Resp B/P (MAP) Pulse Ox O2 Delivery O2 Flow Rate FiO2 09/19/18 09:00 Room Air 09/19/18 08:10 160/101 09/19/18 08:00 98.3 105 20 160/109 (126) 96 90 09/19/18 04:00 98.4 90 20 159/90 (113) 98 90 09/19/18 00:44 166/95 09/19/18 00:00 98.0 93 20 166/95 (118) 99 93 09/18/18 21:00 Room Air 09/18/18 20:00 98.1 125 21 154/98 (116) 97 125 09/18/18 18:58 158/84 (108) 09/18/18 18:32 176/97 09/18/18 17:50 176/97 (123) 09/18/18 16:00 100.3 92 20 161/94 (116) 95 09/18/18 12:00 100.2 79 18 142/70 (94) 97 Intake and Output 09/18/18 09/19/18 19:00 07:00 Intake Total 835 ml Output Total 650 ml 650 ml Balance -650 ml 185 ml Intake Free Water 120 ml IV Total 500 ml Tube Feeding 55 ml Other 160 ml Output Urine Total 650 ml 650 ml # Bowel Movements 1 Laboratory Tests 09/19/18 06:20: White Blood Count 12.6H, Red Blood Count 3.01L, Hemoglobin 9.4L, Hematocrit 28.8L, Mean Corpuscular Volume 96, Mean Corpuscular Hemoglobin 31.2H, Mean Corpuscular Hemoglobin Concent 32.5, Red Cell Distribution Width 13.0, Platelet Count 359, Mean Platelet Volume 6.5, Neutrophils (%) (Auto) 72.5, Lymphocytes (% ) (Auto) 19.8L, Monocytes (%) (Auto) 5.0, Eosinophils (%) (Auto) 2.2, Basophils (%) (Auto) 0.6, Sodium Level 145, Potassium Level 4.2, Chloride Level 110H, Carbon Dioxide Level 24, Anion Gap 11, Blood Urea Nitrogen 16, Creatinine 1.0, Estimat Glomerular Filtration Rate , Glucose Level 120H, Calcium Level 9.1, Total Bilirubin 0.4, Aspartate Amino Transf (AST/SGOT) 69H, Alanine Aminotransferase (ALT/SGPT) 117H, Alkaline Phosphatase 176H, Total Creatine Kinase 58, Total Protein 7.3, Albumin 2.1L, Globulin 5.2, Albumin/Globulin Ratio 0.4L Height (Feet): 5 Height (Inches): 4.00 Weight (Pounds): 137 General Appearance: lethargic EENT: PERRL/EOMI Neck: supple Cardiovascular: normal rate Respiratory/Chest: decreased breath sounds Abdomen: normal bowel sounds, non tender, soft Extremities: non-tender Ramiro Romero MD Sep 19, 2018 10:02
--- NOTE | 2018-09-19 11:40 | Nephrology Progress Note ---
Assessment/Plan Problem List: (1) BRYANT (acute kidney injury) Assessment: eresolved (2) Rhabdomyolysis (3) Septic shock (4) Failure to thrive syndrome, adult (5) Pneumonia Assessment Acute Renal Failure: ? Drug induced Was on Lisinopril and Celebrex Rhabdo: High CPK Dehydration Shock Sepsis / Pneumonia / UTI Malnutrition Plan PEG 7/ K and Phos IV as needed SS Insulin off pressors antibiotics monitor renal parameters per orders to med surg Subjective ROS Limited/Unobtainable: No Constitutional: Reports: malaise, weakness Objective Objective Last 24 Hour Vital Signs Date Time Temp Pulse Resp B/P (MAP) Pulse Ox O2 Delivery O2 Flow Rate FiO2 09/19/18 09:00 Room Air 09/19/18 08:10 160/101 09/19/18 08:00 98.3 105 20 160/109 (126) 96 90 09/19/18 04:00 98.4 90 20 159/90 (113) 98 90 09/19/18 00:44 166/95 09/19/18 00:00 98.0 93 20 166/95 (118) 99 93 09/18/18 21:00 Room Air 09/18/18 20:00 98.1 125 21 154/98 (116) 97 125 09/18/18 18:58 158/84 (108) 09/18/18 18:32 176/97 09/18/18 17:50 176/97 (123) 09/18/18 16:00 100.3 92 20 161/94 (116) 95 09/18/18 12:00 100.2 79 18 142/70 (94) 97 Intake and Output 09/18/18 09/19/18 19:00 07:00 Intake Total 835 ml Output Total 650 ml 650 ml Balance -650 ml 185 ml Intake Free Water 120 ml IV Total 500 ml Tube Feeding 55 ml Other 160 ml Output Urine Total 650 ml 650 ml # Bowel Movements 1 Laboratory Tests 09/19/18 06:20: White Blood Count 12.6H, Red Blood Count 3.01L, Hemoglobin 9.4L, Hematocrit 28.8L, Mean Corpuscular Volume 96, Mean Corpuscular Hemoglobin 31.2H, Mean Corpuscular Hemoglobin Concent 32.5, Red Cell Distribution Width 13.0, Platelet Count 359, Mean Platelet Volume 6.5, Neutrophils (%) (Auto) 72.5, Lymphocytes (% ) (Auto) 19.8L, Monocytes (%) (Auto) 5.0, Eosinophils (%) (Auto) 2.2, Basophils (%) (Auto) 0.6, Sodium Level 145, Potassium Level 4.2, Chloride Level 110H, Carbon Dioxide Level 24, Anion Gap 11, Blood Urea Nitrogen 16, Creatinine 1.0, Estimat Glomerular Filtration Rate , Glucose Level 120H, Calcium Level 9.1, Total Bilirubin 0.4, Aspartate Amino Transf (AST/SGOT) 69H, Alanine Aminotransferase (ALT/SGPT) 117H, Alkaline Phosphatase 176H, Total Creatine Kinase 58, Total Protein 7.3, Albumin 2.1L, Globulin 5.2, Albumin/Globulin Ratio 0.4L Height (Feet): 5 Height (Inches): 4.00 Weight (Pounds): 137 General Appearance: no apparent distress, lethargic Cardiovascular: tachycardia Respiratory/Chest: decreased breath sounds Abdomen: soft Minh Phipps MD Sep 19, 2018 11:40
[2018-09-19 12:00] VITALS: BP 167/100
--- NOTE | 2018-09-19 14:22 | Surgery Progress Note ---
Surgery Progress Note Subjective Additional Comments no acute events. exam unchanged labs noted afebrile, HD stable Objective Last 24 Hour Vital Signs Date Time Temp Pulse Resp B/P (MAP) Pulse Ox O2 Delivery O2 Flow Rate FiO2 09/19/18 12:00 98.9 92 20 167/100 (122) 96 90 09/19/18 09:00 Room Air 09/19/18 08:10 160/101 09/19/18 08:00 98.3 105 20 160/109 (126) 96 90 09/19/18 04:00 98.4 90 20 159/90 (113) 98 90 09/19/18 00:44 166/95 09/19/18 00:00 98.0 93 20 166/95 (118) 99 93 09/18/18 21:00 Room Air 09/18/18 20:00 98.1 125 21 154/98 (116) 97 125 09/18/18 18:58 158/84 (108) 09/18/18 18:32 176/97 09/18/18 17:50 176/97 (123) 09/18/18 16:00 100.3 92 20 161/94 (116) 95 I&O Intake and Output 09/18/18 09/19/18 18:59 06:59 Intake Total 835 ml Output Total 650 ml 650 ml Balance -650 ml 185 ml Intake Free Water 120 ml IV Total 500 ml Tube Feeding 55 ml Other 160 ml Output Urine Total 650 ml 650 ml # Bowel Movements 1 Laboratory Tests Test 09/19/18 06:20 White Blood Count 12.6 K/UL (4.8-10.8) H Red Blood Count 3.01 M/UL (4.70-6.10) L Hemoglobin 9.4 G/DL (14.2-18.0) L Hematocrit 28.8 % (42.0-52.0) L Mean Corpuscular Volume 96 FL (80-99) Mean Corpuscular Hemoglobin 31.2 PG (27.0-31.0) H Mean Corpuscular Hemoglobin Concent 32.5 G/DL (32.0-36.0) Red Cell Distribution Width 13.0 % (11.6-14.8) Platelet Count 359 K/UL (150-450) Mean Platelet Volume 6.5 FL (6.5-10.1) Neutrophils (%) (Auto) 72.5 % (45.0-75.0) Lymphocytes (%) (Auto) 19.8 % (20.0-45.0) L Monocytes (%) (Auto) 5.0 % (1.0-10.0) Eosinophils (%) (Auto) 2.2 % (0.0-3.0) Basophils (%) (Auto) 0.6 % (0.0-2.0) Sodium Level 145 MMOL/L (136-145) Potassium Level 4.2 MMOL/L (3.5-5.1) Chloride Level 110 MMOL/L (98-107) H Carbon Dioxide Level 24 MMOL/L (21-32) Anion Gap 11 mmol/L (5-15) Blood Urea Nitrogen 16 mg/dL (7-18) Creatinine 1.0 MG/DL (0.55-1.30) Estimat Glomerular Filtration Rate mL/min (>60) Glucose Level 120 MG/DL (74-106) H Calcium Level 9.1 MG/DL (8.5-10.1) Total Bilirubin 0.4 MG/DL (0.2-1.0) Aspartate Amino Transf (AST/SGOT) 69 U/L (15-37) H Alanine Aminotransferase (ALT/SGPT) 117 U/L (12-78) H Alkaline Phosphatase 176 U/L (46-116) H Total Creatine Kinase 58 U/L (26-308) Total Protein 7.3 G/DL (6.4-8.2) Albumin 2.1 G/DL (3.4-5.0) L Globulin 5.2 g/dL Albumin/Globulin Ratio 0.4 (1.0-2.7) L Plan Problems: (1) Decubitus skin ulcer Assessment & Plan: Pt presented on admission with multiple pressure injuries. DTPI R trochanteric.Base of wound maroon and indurated (L)2cm x (W)5cm. Periwound without erythema or fluctuance. No evidence of skin breakdown sacrum or L trochanter. Non-blanchable erythema with fluctuance noted to medial R heel (L)4.5cm x (W) 4.5cm. DTPI noted to lateral L heel .Base of wound maroon and fluctuant(L)3.5cm x (W) 3cm.Periwound fluctuant but pink. Reabsorbing blood blister dorso/flexor R foot(L)1cm x (W)0.5cm.Base of wound purple fluctuant in center with dry borders. Non-blanchable erythema with fluctuance noted to distal/lateral R foot (L)1cm, x (W)1cm. Lateral R 5th metatarsal maroon and fluctuant.(L)1cm x (W)1cm. Non-blanchable erythema without fluctuance or induration lateral R malleolus(L) 0.5cm x (W)0.5cm .Periwound without erythema. Tx.Plan: Apply Cavilon Skin Barrier to R trochanter. Cover with Optifoam drsg. Change every 7 days and prn. Apply Cavilon Skin Barrier to L trochanter. Cover with Optifoam drsg.Change every 7 days and prn. Apply Moisture Barrier to Sacrum. Cover with Optifoam drsg. Change every 7 days and prn. Apply Cavilon Skin Barrier distal/lateral R foot, lateral R 5th metatarsal, lateral R malleolus,dorso/flexorR foot and R heel. Cover each site with Optifoam drsg. Change every 7 days and PRN. Apply Cavilon Skin Barrier to L heel. Cover with Optifoam drsg. Change every 7 days and prn. Reposition at least every 2hours or as tolerated. Place pillow between knees. Off-load heels with pillow. APM/RAVINDER Mattress overlay. (2) Pneumonia (3) BRYANT (acute kidney injury) (4) Septic shock Assessment & Plan: DAILY ESTIMATED NEEDS: Needs based on Wt loss, wound/ 53kg 30-35 kcals/kg 9726-8830 total kcals 1.25-1.5 g protein/kg 66-79 g total protein 25-30 mL/kg 0238-3611 total fluid mLs NUTRITION DIAGNOSIS: * Swallowing difficulty R/T dysphagia, decreased cognitive fxn as evidenced by ORNAMENTAL IRON ERECTOR recommends NPO at this time, w/ an order for NGT insertion. * Increased kcal/prot intake needs R/T wt loss, wound healing as evidenced by pt admitted w/ possible significant wt loss of 10 pounds/7.9% wt loss in <1 mo, w/ wound photos, not yet evaluated. * Altered nutrition related lab values R/T ARF, dehydration, diabetes as evidenced by elev Na (162), elev Creat (8.3->4.7), elev BGs (203 197), elev A1C 6.3. CURRENT DIET:NPO ENTERAL NUTRITION RECOMMENDATIONS: Glucerna 1.2 @ 56ml/hr x 24 hrs to provide 1344ml, 1613kcal, 80g prot, 1082ml free water * W/ GI access, initiate Glucerna 1.2 @ 26ml/hr x 6 hrs * Advance 10ml q 4-6 hrs as tolerated to goal rate of 56ml/hr x 24 hrs * HOB over 30 degrees/ water flush per MD ADDITIONAL RECOMMENDATIONS: * Per SNF, HT=63", LC=459gbu (on 08/30/18) * Monitor renal fxn- improving at this time * Monitor lytes w/ TF, replete as needed * F/up wound eval -> rec to add Lemuel 1pkt BID (5) Failure to thrive syndrome, adult Assessment & Plan: Needs nutritional supplementation G tube feeds (6) Rhabdomyolysis Reji Guy Sep 19, 2018 14:22
--- NOTE | 2018-09-19 15:05 | General Progress Note ---
Assessment/Plan Status: stable Assessment/Plan: Assessment/Plan Status: stable Assessment/Plan: 72 year old male admitted for septic shock 2/2 pna vs uti Septic shock likley 2/2 PNA vs UTI - resolved - d/c Vanc, Zosyn changed to augmentin and doxycycline -f/u blood cultures -Monitor respiratory status -s/p 3L NS -ID Consult appreciated. On oral antibiotics until 09/21 -Pulm/Crit consult appreciated -surgery consult appreciated -DC femoral line done - AM labs as he is having increasing WBC today from yesterday. Follow up LFT's noted to be slightly elevated. IF FEVER, will re culture. WILL WAIT for ID clearance PRIOR to discharge. #BRYANT - resolved #rhabdomyolysis -Likley 2/2 shock vs drug induced, CK elevated poss rhabdo -trend CK - trending down and resolved now. -nephrology consult appreciated -CTM -avoid nephrotoxic medications #Hypernatremia likley 2/2 poor PO intake - improved -cont D5W -CTM -Nephrology consult appreciated #severe HypoKalemia #Hypomagnesemia -cont IV repletion -CTM #dysphagia #Failure to thrive -s/p PEG 09/15/18 -GI consult appreciated - Tolerating tube feeds. #Dispo -CM consulted to dc back to SNF at [facility] where he is a current resident. #Full code Subjective ROS Limited/Unobtainable: Yes Allergies: Coded Allergies: No Known Allergies (Unverified , 08/20/18) Objective Last 24 Hour Vital Signs Date Time Temp Pulse Resp B/P (MAP) Pulse Ox O2 Delivery O2 Flow Rate FiO2 09/19/18 12:00 98.9 92 20 167/100 (122) 96 90 09/19/18 09:00 Room Air 09/19/18 08:10 160/101 09/19/18 08:00 98.3 105 20 160/109 (126) 96 90 09/19/18 04:00 98.4 90 20 159/90 (113) 98 90 09/19/18 00:44 166/95 09/19/18 00:00 98.0 93 20 166/95 (118) 99 93 09/18/18 21:00 Room Air 09/18/18 20:00 98.1 125 21 154/98 (116) 97 125 09/18/18 18:58 158/84 (108) 09/18/18 18:32 176/97 09/18/18 17:50 176/97 (123) 09/18/18 16:00 100.3 92 20 161/94 (116) 95 Intake and Output 09/18/18 09/19/18 18:59 06:59 Intake Total 835 ml Output Total 650 ml 650 ml Balance -650 ml 185 ml Intake Free Water 120 ml IV Total 500 ml Tube Feeding 55 ml Other 160 ml Output Urine Total 650 ml 650 ml # Bowel Movements 1 Laboratory Tests 09/19/18 06:20: White Blood Count 12.6H, Red Blood Count 3.01L, Hemoglobin 9.4L, Hematocrit 28.8L, Mean Corpuscular Volume 96, Mean Corpuscular Hemoglobin 31.2H, Mean Corpuscular Hemoglobin Concent 32.5, Red Cell Distribution Width 13.0, Platelet Count 359, Mean Platelet Volume 6.5, Neutrophils (%) (Auto) 72.5, Lymphocytes (% ) (Auto) 19.8L, Monocytes (%) (Auto) 5.0, Eosinophils (%) (Auto) 2.2, Basophils (%) (Auto) 0.6, Sodium Level 145, Potassium Level 4.2, Chloride Level 110H, Carbon Dioxide Level 24, Anion Gap 11, Blood Urea Nitrogen 16, Creatinine 1.0, Estimat Glomerular Filtration Rate , Glucose Level 120H, Calcium Level 9.1, Total Bilirubin 0.4, Aspartate Amino Transf (AST/SGOT) 69H, Alanine Aminotransferase (ALT/SGPT) 117H, Alkaline Phosphatase 176H, Total Creatine Kinase 58, Total Protein 7.3, Albumin 2.1L, Globulin 5.2, Albumin/Globulin Ratio 0.4L Height (Feet): 5 Height (Inches): 4.00 Weight (Pounds): 137 General Appearance: lethargic EENT: PERRL/EOMI Neck: non-tender Cardiovascular: normal peripheral pulses, normal rate Respiratory/Chest: chest wall non-tender, decreased breath sounds Abdomen: normal bowel sounds Neurologic: development officer II-XII grossly normal Skin: normal pigmentation Fan Barba MD Sep 19, 2018 15:05
[2018-09-19 16:00] VITALS: BP 131/96
--- NOTE | 2018-09-19 19:54 | NUR ---
NURSE NOTES: RECEIVED PT FROM ANTOINETTE FUENTES. PT IS ASLEEP, VVS, ON ROOM AIR, NO ACUTE DISTRESS NOTED. PT IS BEDBOUND. BILATERAL UPPER AND LOWER BODY CONTRACTED. PT HAS G-TUBE FEEDING, DRESSING INTACT AND DRY. AUSCULTATED FOR PLACEMENT. FLUSHED WITH 100CC, G-TUBE PATENT. CURRENTLY RUNNING GLUCERNA 1.2 RUNNING 55ML/HR. PT IS TOLERATING FEEDING WELL. OPTIFOAM NOTED ON BILATERAL TROCHANTER, AND BILATERAL HEELS. DRY AND INTACT. IV ON LEFT WRIST 22G IS INTACT AND PATENT. BED IS LOCKED AT THE LOWEST POSITION, BED ALARMS ACTIVE, SIDE RAILS UP X2, AND CALL LIGHT IS WITHIN REACH. WILL CONTINUE TO MONITOR.
[2018-09-19 20:00] VITALS: BP 162/102
[2018-09-20] VITALS (7 sets, daily range): BP systolic 150–169; BP diastolic 85–103
[2018-09-20] MEDS: NovoLOG Insulin Flexpen SUBQ SCH ×5 (02:34→22:45)
[2018-09-20] MEDS: metroNIDAZOLE 500mg tab ORAL SCH ×3 (05:59→22:44)
--- NOTE | 2018-09-20 07:30 | NUR ---
NURSE NOTES: Received pt from RN CHRIS. Pt is confused x1. pt is in RA, No SOB or acute respiratory distress noted. pt has intact iv access LH 20G SL. pt has g tube in place is working well. Pt has Manriquez cath in place is working well. all needs attended, bed is locked and is in the lowest position. call light within easy reach. will continue to monitor.
--- NOTE | 2018-09-20 08:04 | NUR ---
HAND-OFF: Report given to ANTOINETTE SAMUELS.
[2018-09-20 08:29] LABS: BASOPHILS % (AUTO) 0.5 % (0.0-2.0); EOSINOPHILS % (AUTO) 1.2 % (0.0-3.0); HEMATOCRIT 29.7 % (42.0-52.0); HEMOGLOBIN 9.6 G/DL (14.2-18.0); LYMPHOCYTES % (AUTO) 18.9 % (20.0-45.0); MEAN CORPUSCULAR VOLUME 96 FL (80-99); MONOCYTES % (AUTO) 4.5 % (1.0-10.0); NEUTROPHILS % (AUTO) 74.9 % (45.0-75.0); PLATELET COUNT 377 K/UL (150-450); RED BLOOD COUNT 3.09 M/UL (4.70-6.10); RED CELL DISTRIBUTION WIDTH 13.3 % (11.6-14.8)
--- NOTE | 2018-09-20 08:39 | NUR ---
CASE MANAGEMENT:REVIEW 09/20/18 SI: SEPTIC SHOCK. BRYANT. RHABDO. DYSPHAGIA....POD #5 S/P PEG 100.9 112 21 169/98 95% ON RA WBC+12.0 H/H-9.6/29.7 IS: DIFLUCAN GT QD FLAGYL GT Q8HRS CEFTIN GT Q12 K-DUR GT BID HEPARIN SQ Q12 : MED/SURG STATUS 4 EAST DCP: FROM [facility] REHAB PLAN: REPEATED CULTURES FROM 09/18 ~ PENDING
[2018-09-20 08:47] LABS: ALANINE AMINOTRANSFERASE 102 U/L (12-78); ALBUMIN 2.3 G/DL (3.4-5.0); ALBUMIN/GLOBULIN RATIO 0.5 (1.0-2.7); ALKALINE PHOSPHATASE 165 U/L (46-116); ANION GAP 10 mmol/L (5-15); ASPARTATE AMINO TRANSFERASE 69 U/L (15-37); BILIRUBIN,TOTAL 0.4 MG/DL (0.2-1.0); BLOOD UREA NITROGEN 23 mg/dL (7-18); CARBON DIOXIDE 25 MMOL/L (21-32); CHLORIDE 107 MMOL/L (98-107); CREATININE 1.1 MG/DL (0.55-1.30); POTASSIUM 3.9 MMOL/L (3.5-5.1); SODIUM 142 MMOL/L (136-145)
[2018-09-20] MEDS: Fluconazole 100mg tab ORAL SCH (09:05)
[2018-09-20] MEDS: HydrALAZINE 25mg tab ORAL PRN ×2 (09:05→17:30)
[2018-09-20] MEDS: Heparin 5000 units/ml inj SUBQ SCH ×2 (09:06→21:10)
--- NOTE | 2018-09-20 10:48 | GI Progress Note ---
Assessment/Plan Problems: (1) Encounter for PEG (percutaneous endoscopic gastrostomy) ICD Codes: Z43.1 - Encounter for attention to gastrostomy SNOMED: 917340800, 963416829 (2) Severe malnutrition ICD Codes: E43 - Unspecified severe protein-calorie malnutrition SNOMED: 34146997 (3) Dehydration ICD Codes: E86.0 - Dehydration SNOMED: 10131462 (4) Electrolyte imbalance ICD Codes: E87.8 - Other disorders of electrolyte and fluid balance, not elsewhere classified SNOMED: 285140063 (5) Failure to thrive syndrome, adult ICD Codes: R62.7 - Failure to thrive syndrome, adult SNOMED: 889991032 Status: stable, unchanged Status Narrative Discussed with Dr. Romero. Assessment/Plan s/p PEG GTF GT care and flush abd us fu LFTS The patient was seen and examined at bedside and all new and available data was reviewed in the patients chart. I agree with the above findings, impression and plan. (Patient seen earlier today. Signature stamp does not reflect patient encounter time.). - Ramiro Romero MD Subjective Subjective Limited Discussed with RN Objective Last 24 Hour Vital Signs Date Time Temp Pulse Resp B/P (MAP) Pulse Ox O2 Delivery O2 Flow Rate FiO2 09/20/18 09:05 164/103 09/20/18 08:00 99.7 109 19 164/103 (123) 96 09/20/18 04:00 100.9 112 21 169/98 (121) 95 112 09/20/18 00:00 100.9 112 21 169/98 (121) 95 112 09/19/18 22:43 100.0 09/19/18 22:12 162/102 09/19/18 21:00 Room Air 09/19/18 20:00 100.9 109 21 162/102 (122) 96 109 09/19/18 16:00 97.6 93 18 131/96 (108) 97 90 09/19/18 12:00 98.9 92 20 167/100 (122) 96 90 Intake and Output 09/19/18 09/20/18 19:00 07:00 Intake Total 835 ml 1335 ml Output Total 1001 ml 900 ml Balance -166 ml 435 ml Intake Free Water 120 ml 120 ml IV Total 500 ml Tube Feeding 55 ml 55 ml Other 660 ml 660 ml Output Urine Total 1000 ml 900 ml Stool Total 1 ml Laboratory Tests Test 09/20/18 06:42 White Blood Count 12.0 K/UL (4.8-10.8) H Red Blood Count 3.09 M/UL (4.70-6.10) L Hemoglobin 9.6 G/DL (14.2-18.0) L Hematocrit 29.7 % (42.0-52.0) L Mean Corpuscular Volume 96 FL (80-99) Mean Corpuscular Hemoglobin 31.1 PG (27.0-31.0) H Mean Corpuscular Hemoglobin Concent 32.4 G/DL (32.0-36.0) Red Cell Distribution Width 13.3 % (11.6-14.8) Platelet Count 377 K/UL (150-450) Mean Platelet Volume 6.0 FL (6.5-10.1) L Neutrophils (%) (Auto) 74.9 % (45.0-75.0) Lymphocytes (%) (Auto) 18.9 % (20.0-45.0) L Monocytes (%) (Auto) 4.5 % (1.0-10.0) Eosinophils (%) (Auto) 1.2 % (0.0-3.0) Basophils (%) (Auto) 0.5 % (0.0-2.0) Sodium Level 142 MMOL/L (136-145) Potassium Level 3.9 MMOL/L (3.5-5.1) Chloride Level 107 MMOL/L (98-107) Carbon Dioxide Level 25 MMOL/L (21-32) Anion Gap 10 mmol/L (5-15) Blood Urea Nitrogen 23 mg/dL (7-18) H Creatinine 1.1 MG/DL (0.55-1.30) Estimat Glomerular Filtration Rate mL/min (>60) Glucose Level 133 MG/DL (74-106) H Calcium Level 9.0 MG/DL (8.5-10.1) Total Bilirubin 0.4 MG/DL (0.2-1.0) Aspartate Amino Transf (AST/SGOT) 69 U/L (15-37) H Alanine Aminotransferase (ALT/SGPT) 102 U/L (12-78) H Alkaline Phosphatase 165 U/L (46-116) H Total Protein 7.4 G/DL (6.4-8.2) Albumin 2.3 G/DL (3.4-5.0) L Globulin 5.1 g/dL Albumin/Globulin Ratio 0.5 (1.0-2.7) L Height (Feet): 5 Height (Inches): 4.00 Weight (Pounds): 135 General Appearance: alert Cardiovascular: normal rate Respiratory/Chest: normal breath sounds, no respiratory distress Abdominal Exam: soft Stevo Milligan FILM HISTORIAN Sep 20, 2018 10:48
--- NOTE | 2018-09-20 11:09 | General Progress Note ---
Assessment/Plan Status: stable, unchanged Assessment/Plan: 72 year old male admitted for septic shock 2/2 pna vs uti Septic shock likley 2/2 PNA vs UTI - resolved - d/c Vanc, Zosyn changed to flagyl, fluconazole and ceftin -f/u blood cultures -Monitor respiratory status -s/p 3L NS -ID Consult appreciated. On oral antibiotics until 09/21 -Pulm/Crit consult appreciated -surgery consult appreciated -DC femoral line done - mild improvement in WBC. Follow up LFT's noted to be slightly elevated. -FEVER this AM, no source identified -will order b/l LE Doppler to r/o DVT #BRYANT - resolved #rhabdomyolysis -Likley 2/2 shock vs drug induced, CK elevated poss rhabdo -trend CK - trending down and resolved now. -nephrology consult appreciated -CTM -avoid nephrotoxic medications #Hypernatremia likley 2/2 poor PO intake - improved -cont D5W -CTM -Nephrology consult appreciated #severe HypoKalemia #Hypomagnesemia -cont IV repletion -CTM #dysphagia #Failure to thrive -s/p PEG 09/15/18 -GI consult appreciated - Tolerating tube feeds. #Dispo -CM consulted to dc back to SNF at [facility] where he is a current resident. Subjective Date patient seen: Sep 20, 2018 Allergies: Coded Allergies: No Known Allergies (Unverified , 08/20/18) Subjective No acute overnight events, febrile this AM, no clear source of infection, will do b/l LE doppler to r/o DVT Objective Last 24 Hour Vital Signs Date Time Temp Pulse Resp B/P (MAP) Pulse Ox O2 Delivery O2 Flow Rate FiO2 09/20/18 09:05 164/103 09/20/18 08:00 99.7 109 19 164/103 (123) 96 09/20/18 04:00 100.9 112 21 169/98 (121) 95 112 09/20/18 00:00 100.9 112 21 169/98 (121) 95 112 09/19/18 22:43 100.0 09/19/18 22:12 162/102 09/19/18 21:00 Room Air 09/19/18 20:00 100.9 109 21 162/102 (122) 96 109 09/19/18 16:00 97.6 93 18 131/96 (108) 97 90 09/19/18 12:00 98.9 92 20 167/100 (122) 96 90 Intake and Output 09/19/18 09/20/18 19:00 07:00 Intake Total 835 ml 1335 ml Output Total 1001 ml 900 ml Balance -166 ml 435 ml Intake Free Water 120 ml 120 ml IV Total 500 ml Tube Feeding 55 ml 55 ml Other 660 ml 660 ml Output Urine Total 1000 ml 900 ml Stool Total 1 ml Laboratory Tests 09/20/18 06:42: White Blood Count 12.0H, Red Blood Count 3.09L, Hemoglobin 9.6L, Hematocrit 29.7L, Mean Corpuscular Volume 96, Mean Corpuscular Hemoglobin 31.1H, Mean Corpuscular Hemoglobin Concent 32.4, Red Cell Distribution Width 13.3, Platelet Count 377, Mean Platelet Volume 6.0L, Neutrophils (%) (Auto) 74.9, Lymphocytes ( %) (Auto) 18.9L, Monocytes (%) (Auto) 4.5, Eosinophils (%) (Auto) 1.2, Basophils (%) (Auto) 0.5, Sodium Level 142, Potassium Level 3.9, Chloride Level 107, Carbon Dioxide Level 25, Anion Gap 10, Blood Urea Nitrogen 23H, Creatinine 1.1, Estimat Glomerular Filtration Rate , Glucose Level 133H, Calcium Level 9.0 , Total Bilirubin 0.4, Aspartate Amino Transf (AST/SGOT) 69H, Alanine Aminotransferase (ALT/SGPT) 102H, Alkaline Phosphatase 165H, Total Protein 7.4, Albumin 2.3L, Globulin 5.1, Albumin/Globulin Ratio 0.5L Height (Feet): 5 Height (Inches): 4.00 Weight (Pounds): 135 Objective General Appearance: WD/WN, lethargic, confused Lines, tubes and drains: peripheral, central line HEENT: normocephalic, atraumatic, ng tube in place Neck: non-tender Respiratory/Chest: chest wall non-tender, no accessory muscle use Cardiovascular/Chest: normal peripheral pulses Abdomen: normal bowel sounds, +binder Neurologic: disoriented Kimberlyn Bonner MD Sep 20, 2018 11:09
--- NOTE | 2018-09-20 11:54 | NUR ---
RD ASSESSMENT & RECOMMENDATIONS SEE CARE ACTIVITY FOR COMPLETE ASSESSMENT DAILY ESTIMATED NEEDS: Needs based on Wt loss, wound/ 53kg 30-35 kcals/kg 1363-1180 total kcals 1.25-1.5 g protein/kg 66-79 g total protein 25-30 mL/kg 7482-7887 total fluid mLs NUTRITION DIAGNOSIS: * Swallowing difficulty R/T dysphagia, decreased cognitive fxn as evidenced by POLICE DEPARTMENT SECRETARY recommends NPO at this time, now s/p PEG placement, on GT feeding. * Increased kcal/prot intake needs R/T wt loss, wound healing as evidenced by pt admitted w/ possible significant wt loss of 10 pounds/7.9% wt loss in <1 mo, w/ DTPI at R trochanter and non-blanchable erythema @ rt heel. * Altered nutrition related lab values R/T ARF, dehydration, diabetes as evidenced by elev Na (162-> wnl), elev BUN (114-> now wnl), elev Creat (8.3->wnl), elev BGs (203 197- now improved), elev A1C 6.3. CURRENT DIET:NPO CURRENT TF:Glucerna 1.2 @ 55ml/hr x 24 hrs ENTERAL NUTRITION RECOMMENDATIONS: Glucerna 1.2 @ 56ml/hr x 24 hrs to provide 1344ml, 1613kcal, 80g prot, 1082ml free water * Increase goal rate to 56ml/hr x 24 hrs * HOB over 30 degrees/ water flush per MD ----- ADDITIONAL RECOMMENDATIONS: * Per SNF, HT=63", YE=[id number] (on 08/30/18) * Monitor renal fxn- NOW NORMALIZED * Monitor lytes w/ TF, replete as needed * Wound healing: add Lemuel 1pkt BID, Vit C 250mg QD . .
--- NOTE | 2018-09-20 12:30 | NUR ---
NURSE NOTES: g tube is hold from 1000 due to abd US. will continue to monitor.
--- NOTE | 2018-09-20 14:09 | NUR ---
NURSE NOTES: ABD US finished at this [id number] and g tube feeding started. will continue to monitor.
--- NOTE | 2018-09-20 14:25 | Surgery Progress Note ---
Surgery Progress Note Subjective Additional Comments low grade fevers leukocytosis 12k lfts improved exam unchanged. overall improving Objective Last 24 Hour Vital Signs Date Time Temp Pulse Resp B/P (MAP) Pulse Ox O2 Delivery O2 Flow Rate FiO2 09/20/18 12:00 99.6 98 18 153/93 (113) 97 09/20/18 10:00 160/95 (116) 09/20/18 09:05 164/103 09/20/18 09:00 Room Air 09/20/18 08:00 99.7 109 19 164/103 (123) 96 09/20/18 04:00 100.9 112 21 169/98 (121) 95 112 09/20/18 00:00 100.9 112 21 169/98 (121) 95 112 09/19/18 22:43 100.0 09/19/18 22:12 162/102 09/19/18 21:00 Room Air 09/19/18 20:00 100.9 109 21 162/102 (122) 96 109 09/19/18 16:00 97.6 93 18 131/96 (108) 97 90 I&O Intake and Output 09/19/18 09/20/18 19:00 07:00 Intake Total 835 ml 1335 ml Output Total 1001 ml 900 ml Balance -166 ml 435 ml Intake Free Water 120 ml 120 ml IV Total 500 ml Tube Feeding 55 ml 55 ml Other 660 ml 660 ml Output Urine Total 1000 ml 900 ml Stool Total 1 ml Dressing: saturated Wound: clean Drains: other Cardiovascular: RSR Respiratory: clear Abdomen: soft, present bowel sounds, non-distended Extremities: no tenderness, no cyanosis Laboratory Tests Test 09/20/18 06:42 White Blood Count 12.0 K/UL (4.8-10.8) H Red Blood Count 3.09 M/UL (4.70-6.10) L Hemoglobin 9.6 G/DL (14.2-18.0) L Hematocrit 29.7 % (42.0-52.0) L Mean Corpuscular Volume 96 FL (80-99) Mean Corpuscular Hemoglobin 31.1 PG (27.0-31.0) H Mean Corpuscular Hemoglobin Concent 32.4 G/DL (32.0-36.0) Red Cell Distribution Width 13.3 % (11.6-14.8) Platelet Count 377 K/UL (150-450) Mean Platelet Volume 6.0 FL (6.5-10.1) L Neutrophils (%) (Auto) 74.9 % (45.0-75.0) Lymphocytes (%) (Auto) 18.9 % (20.0-45.0) L Monocytes (%) (Auto) 4.5 % (1.0-10.0) Eosinophils (%) (Auto) 1.2 % (0.0-3.0) Basophils (%) (Auto) 0.5 % (0.0-2.0) Sodium Level 142 MMOL/L (136-145) Potassium Level 3.9 MMOL/L (3.5-5.1) Chloride Level 107 MMOL/L (98-107) Carbon Dioxide Level 25 MMOL/L (21-32) Anion Gap 10 mmol/L (5-15) Blood Urea Nitrogen 23 mg/dL (7-18) H Creatinine 1.1 MG/DL (0.55-1.30) Estimat Glomerular Filtration Rate mL/min (>60) Glucose Level 133 MG/DL (74-106) H Calcium Level 9.0 MG/DL (8.5-10.1) Total Bilirubin 0.4 MG/DL (0.2-1.0) Aspartate Amino Transf (AST/SGOT) 69 U/L (15-37) H Alanine Aminotransferase (ALT/SGPT) 102 U/L (12-78) H Alkaline Phosphatase 165 U/L (46-116) H Total Protein 7.4 G/DL (6.4-8.2) Albumin 2.3 G/DL (3.4-5.0) L Globulin 5.1 g/dL Albumin/Globulin Ratio 0.5 (1.0-2.7) L Plan Problems: (1) Decubitus skin ulcer Assessment & Plan: Pt presented on admission with multiple pressure injuries. DTPI R trochanteric.Base of wound maroon and indurated (L)2cm x (W)5cm. Periwound without erythema or fluctuance. No evidence of skin breakdown sacrum or L trochanter. Non-blanchable erythema with fluctuance noted to medial R heel (L)4.5cm x (W) 4.5cm. DTPI noted to lateral L heel .Base of wound maroon and fluctuant(L)3.5cm x (W) 3cm.Periwound fluctuant but pink. Reabsorbing blood blister dorso/flexor R foot(L)1cm x (W)0.5cm.Base of wound purple fluctuant in center with dry borders. Non-blanchable erythema with fluctuance noted to distal/lateral R foot (L)1cm, x (W)1cm. Lateral R 5th metatarsal maroon and fluctuant.(L)1cm x (W)1cm. Non-blanchable erythema without fluctuance or induration lateral R malleolus(L) 0.5cm x (W)0.5cm .Periwound without erythema. Tx.Plan: Apply Cavilon Skin Barrier to R trochanter. Cover with Optifoam drsg. Change every 7 days and prn. Apply Cavilon Skin Barrier to L trochanter. Cover with Optifoam drsg.Change every 7 days and prn. Apply Moisture Barrier to Sacrum. Cover with Optifoam drsg. Change every 7 days and prn. Apply Cavilon Skin Barrier distal/lateral R foot, lateral R 5th metatarsal, lateral R malleolus,dorso/flexorR foot and R heel. Cover each site with Optifoam drsg. Change every 7 days and PRN. Apply Cavilon Skin Barrier to L heel. Cover with Optifoam drsg. Change every 7 days and prn. Reposition at least every 2hours or as tolerated. Place pillow between knees. Off-load heels with pillow. APM/RAVINDER Mattress overlay. (2) Pneumonia (3) BRYANT (acute kidney injury) (4) Septic shock Assessment & Plan: DAILY ESTIMATED NEEDS: Needs based on Wt loss, wound/ 53kg 30-35 kcals/kg 2788-8078 total kcals 1.25-1.5 g protein/kg 66-79 g total protein 25-30 mL/kg 6470-5552 total fluid mLs NUTRITION DIAGNOSIS: * Swallowing difficulty R/T dysphagia, decreased cognitive fxn as evidenced by ACCOUNTS PAYABLE ANALYST recommends NPO at this time, w/ an order for NGT insertion. * Increased kcal/prot intake needs R/T wt loss, wound healing as evidenced by pt admitted w/ possible significant wt loss of 10 pounds/7.9% wt loss in <1 mo, w/ wound photos, not yet evaluated. * Altered nutrition related lab values R/T ARF, dehydration, diabetes as evidenced by elev Na (162), elev Creat (8.3->4.7), elev BGs (203 197), elev A1C 6.3. CURRENT DIET:NPO ENTERAL NUTRITION RECOMMENDATIONS: Glucerna 1.2 @ 56ml/hr x 24 hrs to provide 1344ml, 1613kcal, 80g prot, 1082ml free water * W/ GI access, initiate Glucerna 1.2 @ 26ml/hr x 6 hrs * Advance 10ml q 4-6 hrs as tolerated to goal rate of 56ml/hr x 24 hrs * HOB over 30 degrees/ water flush per MD ADDITIONAL RECOMMENDATIONS: * Per SNF, HT=63", CA=096yof (on 08/30/18) * Monitor renal fxn- improving at this time * Monitor lytes w/ TF, replete as needed * F/up wound eval -> rec to add Lemuel 1pkt BID (5) Failure to thrive syndrome, adult Assessment & Plan: Needs nutritional supplementation G tube feeds (6) Rhabdomyolysis Reji Guy Sep 20, 2018 14:25
--- NOTE | 2018-09-20 15:04 | Infectious Diseases Prog Note ---
Assessment/Plan Assessment/Plan ASSESSMENT AND PLAN: 1. sepsis, shock, fevers, leukocytosis, sirs, pneumonia, ? uti, mrsa colonization, ? c.diff., fungemia risk, diarrhea - continue ceftin, flagyl, diflucan for now - overall sepsis and shock improved, mild leukocytosis and lgt noted - surveillance blood cultures and urine culture negative, c.diff. negative, chest x-ray without change - monitor labs and chest x-ray - monitor low grade temps and mild leukocytosis closely - continue tx per primary team and consultants - d/w RN 2. Intensive care unit care and supportive measures. 3. Anemia. 4. Hyperlipidemia. 5. Acute kidney injury. 6. Multiple wounds were noted. Skin care per Surgery and protocol. 7. The patient has history of dementia. 8. History of dysphagia. 9. Aspiration risk. 10. Contractures. 11. Weakness. 12. Dementia. 13. Pre-glaucoma. 14. Depression. 15. Continue treatment per primary consultants. 16. No known allergies. 17. Social history is negative. 18. Family history is noncontributory. 19. MAR was noted. 20. Case was discussed with RN. 21. Case was discussed with Dr. Connolly. Subjective Constitutional: Reports: fever - lgt noted - 100.9 tmax , fatigue, other - nad , alert HEENT: Denies: congestion Respiratory: Denies: shortness of breath Cardiovascular: Denies: chest pain Gastrointestinal/Abdominal: Denies: nausea, vomiting, diarrhea Genitourinary: Reports: other - + duggan Neurologic: Reports: weakness, other - alert Psychiatric: Reports: other - NA Skin: Denies: rash Hematologic: Denies: bleeding Musculoskeletal: Reports: other - NA Allergies: Coded Allergies: No Known Allergies (Unverified , 08/20/18) Objective Vital Signs Last 24 Hour Vital Signs Date Time Temp Pulse Resp B/P (MAP) Pulse Ox O2 Delivery O2 Flow Rate FiO2 09/20/18 12:00 99.6 98 18 153/93 (113) 97 09/20/18 10:00 160/95 (116) 09/20/18 09:05 164/103 09/20/18 09:00 Room Air 09/20/18 08:00 99.7 109 19 164/103 (123) 96 09/20/18 04:00 100.9 112 21 169/98 (121) 95 112 09/20/18 00:00 100.9 112 21 169/98 (121) 95 112 09/19/18 22:43 100.0 09/19/18 22:12 162/102 09/19/18 21:00 Room Air 09/19/18 20:00 100.9 109 21 162/102 (122) 96 109 09/19/18 16:00 97.6 93 18 131/96 (108) 97 90 Height (Feet): 5 Height (Inches): 4.00 Weight (Pounds): 135 General Appearance: no acute distress HEENT: normocephalic, atraumatic, anicteric, mucous membranes moist Respiratory/Chest: no accessory muscle use, crackles/rales, rhonchi - bilaterally, other - mostly clear bilateral Cardiovascular: normal rate, regular rhythm, no gallop/murmur, no JVD Abdomen: normal bowel sounds, soft, non tender, no organomegaly, non distended Genitourinary: other - + duggan - urine clear Extremities: no cyanosis Skin: no rash, other - wounds noted - not acutely infected Neurologic/Psychiatric: testing projects administrator II-XII grossly normal, alert, responsive Lymphatic: no neck adenopathy Musculoskeletal: no effusion Objective COMPARISON: Chest radiograph on 09/10/2018 FINDINGS: Hardware: Interval placement of an enteric tube which terminates in the region of the gastric antrum. Lungs/pleura: Slightly increased patchy opacity in the left lung. Decreased left pleural effusion. Mild elevation of the right hemidiaphragm. Heart/mediastinum: Normal. No cardiomegaly. Chest x-ray - 09/12/18 - Soft tissues: Unremarkable. Bones: No acute fracture. Degenerative changes of the visualized left acromioclavicular joints. Upper abdomen: Normal. IMPRESSION: Slightly increased patchy opacity in the left lung. Decreased left pleural effusion. Interval placement of an enteric tube which terminates in the region of the gastric antrum. Chest x-ray - 09/14/18 - Procedure: XRAY Chest 1v Indication: Dyspnea Comparison: 09/12/2018 A single view chest radiograph was obtained. Findings: Left pulmonary infiltrate again noted without change. NG tube again noted. Heart size is stable. IMPRESSION: No change from the prior examination. 09/19/18 - chest x-ray - IMPRESSION: Persistent patchy left perihilar consolidation, not significantly changed. Microbiology Date/Time Source Procedure Growth Status 09/18/18 17:45 Blood Blood Culture - Preliminary NO GROWTH AFTER 24 HOURS Resulted 09/10/18 16:25 Sputum Induced Gram Stain - Final Complete 09/10/18 16:25 Sputum Induced Sputum Culture - Final NORMAL UPPER RESPIRATORY ADRIANA PRESENT Complete 09/18/18 16:00 Stool Clostridium difficile Toxin Assay - Final Complete 09/18/18 17:05 Indwelling Cath Urine Culture - Preliminary NO GROWTH AFTER 24 HOURS Resulted 09/09/18 16:30 Rectum VRE Culture - Final NO VANCOMYCIN RESISTANT ENTEROCOCCUS ... Complete 09/09/18 16:30 Rectum - Final NO CARBAPENEM-RESISTANT ENTEROBACTERI... Complete Microbiology Date/Time Source Procedure Growth Status 09/18/18 17:45 Blood Blood Culture - Preliminary NO GROWTH AFTER 24 HOURS Resulted 09/18/18 17:40 Blood Blood Culture - Preliminary NO GROWTH AFTER 24 HOURS Resulted 09/18/18 16:00 Stool Clostridium difficile Toxin Assay - Final Complete 09/18/18 17:05 Indwelling Cath Urine Culture - Preliminary NO GROWTH AFTER 24 HOURS Resulted Laboratory Tests Test 09/20/18 06:42 White Blood Count 12.0 K/UL (4.8-10.8) H Red Blood Count 3.09 M/UL (4.70-6.10) L Hemoglobin 9.6 G/DL (14.2-18.0) L Hematocrit 29.7 % (42.0-52.0) L Mean Corpuscular Volume 96 FL (80-99) Mean Corpuscular Hemoglobin 31.1 PG (27.0-31.0) H Mean Corpuscular Hemoglobin Concent 32.4 G/DL (32.0-36.0) Red Cell Distribution Width 13.3 % (11.6-14.8) Platelet Count 377 K/UL (150-450) Mean Platelet Volume 6.0 FL (6.5-10.1) L Neutrophils (%) (Auto) 74.9 % (45.0-75.0) Lymphocytes (%) (Auto) 18.9 % (20.0-45.0) L Monocytes (%) (Auto) 4.5 % (1.0-10.0) Eosinophils (%) (Auto) 1.2 % (0.0-3.0) Basophils (%) (Auto) 0.5 % (0.0-2.0) Sodium Level 142 MMOL/L (136-145) Potassium Level 3.9 MMOL/L (3.5-5.1) Chloride Level 107 MMOL/L (98-107) Carbon Dioxide Level 25 MMOL/L (21-32) Anion Gap 10 mmol/L (5-15) Blood Urea Nitrogen 23 mg/dL (7-18) H Creatinine 1.1 MG/DL (0.55-1.30) Estimat Glomerular Filtration Rate mL/min (>60) Glucose Level 133 MG/DL (74-106) H Calcium Level 9.0 MG/DL (8.5-10.1) Total Bilirubin 0.4 MG/DL (0.2-1.0) Aspartate Amino Transf (AST/SGOT) 69 U/L (15-37) H Alanine Aminotransferase (ALT/SGPT) 102 U/L (12-78) H Alkaline Phosphatase 165 U/L (46-116) H Total Protein 7.4 G/DL (6.4-8.2) Albumin 2.3 G/DL (3.4-5.0) L Globulin 5.1 g/dL Albumin/Globulin Ratio 0.5 (1.0-2.7) L Current Medications Medications (Trade) Dose Ordered Sig/Altagracia Route PRN Reason Start Time Stop Time Status Last Admin Dose Admin Acetaminophen (Tylenol) 650 mg Q6H PRN ORAL Mild Pain/Temp > 100.5 09/18/18 17:00 10/18/18 16:59 09/19/18 22:13 Cefuroxime Axetil (Ceftin) 500 mg EVERY 12 HOURS ORAL 09/18/18 21:00 09/25/18 20:59 09/20/18 09:05 Dextrose (Dextrose 50%) 25 ml Q30M PRN IV Hypoglycemia 09/16/18 14:29 10/10/18 14:28 Dextrose (Dextrose 50%) 50 ml Q30M PRN IV Hypoglycemia 09/16/18 14:29 10/10/18 14:28 Fluconazole (Diflucan) 200 mg DAILY ORAL 09/19/18 09:00 09/26/18 08:59 09/20/18 09:05 Heparin Sodium (Porcine) (Heparin 5000 units/ml) 5,000 units EVERY 12 HOURS SUBQ 09/16/18 21:00 10/09/18 20:59 09/20/18 09:06 Hydralazine HCl (Apresoline) 25 mg Q6H PRN ORAL For High Blood Pressure 09/18/18 18:30 10/18/18 18:29 09/20/18 09:05 Insulin Aspart (NovoLOG) Q5H SUBQ 09/16/18 18:00 10/10/18 11:59 09/20/18 06:45 Lansoprazole (Prevacid) 30 mg BID GT 09/16/18 18:00 10/16/18 17:59 09/20/18 09:05 Metoclopramide HCl (Reglan) 5 mg Q6H PRN ORAL Nausea & Vomiting 09/16/18 14:30 10/16/18 14:29 Metronidazole (Flagyl) 500 mg Q8HR ORAL 09/18/18 22:00 09/25/18 21:59 09/20/18 14:05 Potassium Chloride (K-Dur) 40 meq TWICE A DAY GT 09/17/18 18:00 10/16/18 17:59 09/20/18 09:05 Quetiapine Fumarate (SEROquel) 25 mg Q6H PRN ORAL agitation 09/16/18 14:32 10/14/18 14:31 Bonny Rincon MD Sep 20, 2018 15:04
--- NOTE | 2018-09-20 17:05 | Nephrology Progress Note ---
Assessment/Plan Problem List: (1) BRYANT (acute kidney injury) Assessment: eresolved (2) Rhabdomyolysis (3) Septic shock (4) Failure to thrive syndrome, adult (5) Pneumonia Assessment Acute Renal Failure: ? Drug induced Was on Lisinopril and Celebrex Rhabdo: High CPK Dehydration Shock Sepsis / Pneumonia / UTI Malnutrition Plan PEG 7/3 K and Phos IV as needed SS Insulin off pressors antibiotics monitor renal parameters per orders to med surg Subjective ROS Limited/Unobtainable: No Constitutional: Reports: malaise, weakness Objective Objective Last 24 Hour Vital Signs Date Time Temp Pulse Resp B/P (MAP) Pulse Ox O2 Delivery O2 Flow Rate FiO2 09/20/18 16:00 98.7 88 19 161/85 (110) 95 09/20/18 12:00 99.6 98 18 153/93 (113) 97 09/20/18 10:00 160/95 (116) 09/20/18 09:05 164/103 09/20/18 09:00 Room Air 09/20/18 08:00 99.7 109 19 164/103 (123) 96 09/20/18 04:00 100.9 112 21 169/98 (121) 95 112 09/20/18 00:00 100.9 112 21 169/98 (121) 95 112 09/19/18 22:43 100.0 09/19/18 22:12 162/102 09/19/18 21:00 Room Air 09/19/18 20:00 100.9 109 21 162/102 (122) 96 109 Intake and Output 09/19/18 09/20/18 18:59 06:59 Intake Total 835 ml 1335 ml Output Total 1001 ml 900 ml Balance -166 ml 435 ml Intake Free Water 120 ml 120 ml IV Total 500 ml Tube Feeding 55 ml 55 ml Other 660 ml 660 ml Output Urine Total 1000 ml 900 ml Stool Total 1 ml Laboratory Tests 09/20/18 06:42: White Blood Count 12.0H, Red Blood Count 3.09L, Hemoglobin 9.6L, Hematocrit 29.7L, Mean Corpuscular Volume 96, Mean Corpuscular Hemoglobin 31.1H, Mean Corpuscular Hemoglobin Concent 32.4, Red Cell Distribution Width 13.3, Platelet Count 377, Mean Platelet Volume 6.0L, Neutrophils (%) (Auto) 74.9, Lymphocytes ( %) (Auto) 18.9L, Monocytes (%) (Auto) 4.5, Eosinophils (%) (Auto) 1.2, Basophils (%) (Auto) 0.5, Sodium Level 142, Potassium Level 3.9, Chloride Level 107, Carbon Dioxide Level 25, Anion Gap 10, Blood Urea Nitrogen 23H, Creatinine 1.1, Estimat Glomerular Filtration Rate , Glucose Level 133H, Calcium Level 9.0 , Total Bilirubin 0.4, Aspartate Amino Transf (AST/SGOT) 69H, Alanine Aminotransferase (ALT/SGPT) 102H, Alkaline Phosphatase 165H, Total Protein 7.4, Albumin 2.3L, Globulin 5.1, Albumin/Globulin Ratio 0.5L Height (Feet): 5 Height (Inches): 4.00 Weight (Pounds): 135 General Appearance: no apparent distress Neck: limited range of motion Cardiovascular: normal rate Respiratory/Chest: decreased breath sounds Abdomen: soft Objective no change Minh Phipps MD Sep 20, 2018 17:05
--- NOTE | 2018-09-20 17:32 | Diagnostic Imaging Report ---
Indication: Abdominal pain Technique: Grayscale and duplex images of the right upper quadrant structures and Doppler interrogation of the hepatic and pancreatic vessels Comparison: none Findings: Exam is limited, as the left kidney and spleen cannot be visualized due to patient being contracted and the presence of a gastrostomy. The left hepatic lobe is also not well demonstrated. The visualized portions of liver are normal in echogenicity without focal abnormality. The pancreas is poorly demonstrated, no gross abnormalities. Ectatic but not frankly aneurysmal distal abdominal aorta noted. The gallbladder is somewhat distended and filled with sludge. No gallbladder wall thickening. No definite gallstones. Sonographic Antunez's sign is negative. No pericholecystic fluid. The common bile duct measures 4 mm in diameter. The right kidney measures 10.5 cm in length. No hydronephrosis nor focal abnormality Impression: Limited exam, as described. Note nonvisualization of the spleen, left kidney, left hepatic lobe, and portions of the pancreas Gallbladder sludge. Negative for gallstones or dilated ducts
--- NOTE | 2018-09-20 19:07 | NUR ---
HAND-OFF: Report given to ANTOINETTE HORN.
--- NOTE | 2018-09-20 19:55 | NUR ---
NURSE NOTES: Received patient in bed, alert and oriented x1, [place] speaking only, confused, disoriented, on room air, on gtube feeding glucerna 1.2 at 50 cc per hour, tolerating well, aspiration precautions, Manriquez is in place, intact, draining well. IV site clean dry and intact. Call light is within reach, bed is in low position, locked and alarm is on. Will continue to monitor for comfort and safety.
[2018-09-21] VITALS: BP 141/89
--- NOTE | 2018-09-21 03:00 | Progress Note ---
SUBJECTIVE: The patient remains the same. Mental condition is unchanged. Has episodes of anxiety. MENTAL STATUS EXAMINATION: The patient is disoriented, ill appearing. Mood is anxious. Affect is flat. Thought process, there is a paucity of thought content. Thought content, no suicidal or homicidal ideation. ASSESSMENT: 1. Encephalopathy. 2. Cognitive impairment. PLAN: 1. We will continue current medications. 2. Continue to follow. Rob Baltazar M.D. DR: Arnoldo JOB#: [id number] CC:
[2018-09-21] MEDS: NovoLOG Insulin Flexpen SUBQ SCH ×5 (03:56→23:28)
[2018-09-21 04:00] VITALS: BP 152/82
[2018-09-21] MEDS: metroNIDAZOLE 500mg tab ORAL SCH ×3 (06:05→22:28)
--- NOTE | 2018-09-21 06:51 | NUR ---
HAND-OFF: Report given to Raissa CURRY.
[2018-09-21 07:26] LABS: BASOPHILS % (AUTO) 0.9 % (0.0-2.0); EOSINOPHILS % (AUTO) 1.3 % (0.0-3.0); HEMATOCRIT 30.3 % (42.0-52.0); HEMOGLOBIN 9.8 G/DL (14.2-18.0); LYMPHOCYTES % (AUTO) 21.9 % (20.0-45.0); MEAN CORPUSCULAR VOLUME 96 FL (80-99); MONOCYTES % (AUTO) 6.3 % (1.0-10.0); NEUTROPHILS % (AUTO) 69.7 % (45.0-75.0); PLATELET COUNT 413 K/UL (150-450); RED BLOOD COUNT 3.15 M/UL (4.70-6.10); RED CELL DISTRIBUTION WIDTH 13.4 % (11.6-14.8); WHITE BLOOD COUNT 10.3 K/UL (4.8-10.8)
--- NOTE | 2018-09-21 07:36 | NUR ---
NURSE NOTES: Patient received sleeping in bed. Breathing observed to be unlabored on room air. G-tube is intact with feeding running at 50cc/hr. Manriquez catheter is patent and intact. Soft restraints observed on bilateral wrists. IV site noted on left hand. HOB elevated. Bed is locked. Call light placed within reach, will continue to monitor.
[2018-09-21 07:43] LABS: ANION GAP 10 mmol/L (5-15); BLOOD UREA NITROGEN 25 mg/dL (7-18); CALCIUM 9.7 MG/DL (8.5-10.1); CARBON DIOXIDE 24 MMOL/L (21-32); CHLORIDE 111 MMOL/L (98-107); CREATININE 1.1 MG/DL (0.55-1.30); POTASSIUM 4.4 MMOL/L (3.5-5.1); SODIUM 145 MMOL/L (136-145)
[2018-09-21 08:00] VITALS: BP 160/94
[2018-09-21] MEDS: Fluconazole 100mg tab ORAL SCH (08:14)
[2018-09-21] MEDS: Heparin 5000 units/ml inj SUBQ SCH ×2 (08:35→20:32)
--- NOTE | 2018-09-21 10:20 | GI Progress Note ---
Assessment/Plan Problems: (1) Encounter for PEG (percutaneous endoscopic gastrostomy) ICD Codes: Z43.1 - Encounter for attention to gastrostomy SNOMED: 585949840, 576484353 (2) Severe malnutrition ICD Codes: E43 - Unspecified severe protein-calorie malnutrition SNOMED: 39669824 (3) Dehydration ICD Codes: E86.0 - Dehydration SNOMED: 79832646 (4) Electrolyte imbalance ICD Codes: E87.8 - Other disorders of electrolyte and fluid balance, not elsewhere classified SNOMED: 729231987 (5) Failure to thrive syndrome, adult ICD Codes: R62.7 - Failure to thrive syndrome, adult SNOMED: 544180133 Status: stable Status Narrative Discussed with Dr. Romero Assessment/Plan s/p PEG GTF GT care and flush abd us reviewed, negative for any biliary ductal dilation fu LFTS, hepatitis panel The patient was seen and examined at bedside and all new and available data was reviewed in the patients chart. I agree with the above findings, impression and plan. (Patient seen earlier today. Signature stamp does not reflect patient encounter time.). - Ramiro Romero MD Subjective Subjective Limited Discussed with RN Objective Last 24 Hour Vital Signs Date Time Temp Pulse Resp B/P (MAP) Pulse Ox O2 Delivery O2 Flow Rate FiO2 09/21/18 08:00 97.6 99 19 160/94 (116) 98 99 09/21/18 04:00 98.2 86 18 152/82 (105) 86 09/21/18 00:00 98.2 91 18 141/89 (106) 09/20/18 21:00 Room Air 09/20/18 20:00 99.0 101 24 150/90 (110) 09/20/18 17:30 161/85 09/20/18 16:00 98.7 88 19 161/85 (110) 95 09/20/18 12:00 99.6 98 18 153/93 (113) 97 Intake and Output 09/20/18 09/21/18 19:00 07:00 Intake Total 640 ml 750 ml Balance 640 ml 750 ml Intake Free Water 200 ml 200 ml Tube Feeding 440 ml 550 ml Laboratory Tests Test 09/21/18 06:18 White Blood Count 10.3 K/UL (4.8-10.8) Red Blood Count 3.15 M/UL (4.70-6.10) L Hemoglobin 9.8 G/DL (14.2-18.0) L Hematocrit 30.3 % (42.0-52.0) L Mean Corpuscular Volume 96 FL (80-99) Mean Corpuscular Hemoglobin 31.2 PG (27.0-31.0) H Mean Corpuscular Hemoglobin Concent 32.4 G/DL (32.0-36.0) Red Cell Distribution Width 13.4 % (11.6-14.8) Platelet Count 413 K/UL (150-450) Mean Platelet Volume 5.9 FL (6.5-10.1) L Neutrophils (%) (Auto) 69.7 % (45.0-75.0) Lymphocytes (%) (Auto) 21.9 % (20.0-45.0) Monocytes (%) (Auto) 6.3 % (1.0-10.0) Eosinophils (%) (Auto) 1.3 % (0.0-3.0) Basophils (%) (Auto) 0.9 % (0.0-2.0) Sodium Level 145 MMOL/L (136-145) Potassium Level 4.4 MMOL/L (3.5-5.1) Chloride Level 111 MMOL/L (98-107) H Carbon Dioxide Level 24 MMOL/L (21-32) Anion Gap 10 mmol/L (5-15) Blood Urea Nitrogen 25 mg/dL (7-18) H Creatinine 1.1 MG/DL (0.55-1.30) Estimat Glomerular Filtration Rate mL/min (>60) Glucose Level 132 MG/DL (74-106) H Calcium Level 9.7 MG/DL (8.5-10.1) Height (Feet): 5 Height (Inches): 4.00 Weight (Pounds): 135 General Appearance: no apparent distress Cardiovascular: normal rate Respiratory/Chest: normal breath sounds Abdominal Exam: site Stevo Milligan NP Sep 21, 2018 10:20
[2018-09-21 12:00] VITALS: BP 143/91
--- NOTE | 2018-09-21 12:46 | Nephrology Progress Note ---
Assessment/Plan Problem List: (1) BRYANT (acute kidney injury) Assessment: eresolved (2) Rhabdomyolysis (3) Septic shock (4) Failure to thrive syndrome, adult (5) Pneumonia Assessment Acute Renal Failure: ? Drug induced Was on Lisinopril and Celebrex Rhabdo: High CPK Dehydration Shock Sepsis / Pneumonia / UTI Malnutrition Plan PEG 7/3 K and Phos IV as needed SS Insulin off pressors antibiotics monitor renal parameters per orders to med surg Subjective ROS Limited/Unobtainable: No Constitutional: Reports: malaise, weakness Objective Objective Last 24 Hour Vital Signs Date Time Temp Pulse Resp B/P (MAP) Pulse Ox O2 Delivery O2 Flow Rate FiO2 09/21/18 09:00 Room Air 09/21/18 08:00 97.6 99 19 160/94 (116) 98 99 09/21/18 04:00 98.2 86 18 152/82 (105) 86 09/21/18 00:00 98.2 91 18 141/89 (106) 09/20/18 21:00 Room Air 09/20/18 20:00 99.0 101 24 150/90 (110) 09/20/18 17:30 161/85 09/20/18 16:00 98.7 88 19 161/85 (110) 95 Intake and Output 09/20/18 09/21/18 19:00 07:00 Intake Total 640 ml 750 ml Balance 640 ml 750 ml Intake Free Water 200 ml 200 ml Tube Feeding 440 ml 550 ml Laboratory Tests 09/21/18 06:18: White Blood Count 10.3, Red Blood Count 3.15L, Hemoglobin 9.8L, Hematocrit 30.3L , Mean Corpuscular Volume 96, Mean Corpuscular Hemoglobin 31.2H, Mean Corpuscular Hemoglobin Concent 32.4, Red Cell Distribution Width 13.4, Platelet Count 413, Mean Platelet Volume 5.9L, Neutrophils (%) (Auto) 69.7, Lymphocytes ( %) (Auto) 21.9, Monocytes (%) (Auto) 6.3, Eosinophils (%) (Auto) 1.3, Basophils (%) (Auto) 0.9, Sodium Level 145, Potassium Level 4.4, Chloride Level 111H, Carbon Dioxide Level 24, Anion Gap 10, Blood Urea Nitrogen 25H, Creatinine 1.1, Estimat Glomerular Filtration Rate , Glucose Level 132H, Calcium Level 9.7 Height (Feet): 5 Height (Inches): 4.00 Weight (Pounds): 135 General Appearance: no apparent distress Cardiovascular: tachycardia Respiratory/Chest: decreased breath sounds Abdomen: soft Objective no change Minh Phipps MD Sep 21, 2018 12:46
--- NOTE | 2018-09-21 13:07 | NUR ---
DISCHARGE SWALLOW AND SPEECH THERAPY SUMMARY: PATIENT SEEN FOR DYSPHAGIA, SEE SWALLOW EVALUATION. PATIENT NOT RECEPTIVE TO MODIFIED BARIUM SWALLOW STUDY FOR ORAL GRATIFICATION. PER RN, THE PATIENT IS GOING TO BE D/C TOMORROW. PT HAS PEG AND NO ORAL GRAT AT THIS TIME. GOALS NOT MET CONSISTENTLY FOR INTAKE PRIOR TO PEG BUT GOALS MET FOR STAFF EDUCATED/TRAINED IN ORAL CARE AND ASP PREC WITH TUBE FEEDINGS. PLAN: F/UP WITH PHYSICIAN PRACTICE ADMINISTRATOR AT [facility] FOR MOD BARIUM SWALLOW STUDY OP ONLY IF RECEPTIVE, ORAL CARE/GRAT AND DYSPHAGIA MANAGEMENT AND TX IF INDICATED. D/W ISIDRO CURRY. Addendum: 09/21/18 at 1311 by ANDRÉS MARQUEZ PATIENT NOT RECEPTIVE TO PO INTAKE/TRIALS NOR MODIFIED BARIUM SWALLOW STUDY FOR ORAL GRATIFICATION.
--- NOTE | 2018-09-21 15:46 | Surgery Progress Note ---
Surgery Progress Note Subjective Additional Comments no acute events. resting comfortable labs noted. lft's trending down US noted. exam stable. on tube feeds Objective Last 24 Hour Vital Signs Date Time Temp Pulse Resp B/P (MAP) Pulse Ox O2 Delivery O2 Flow Rate FiO2 09/21/18 12:00 97.8 94 18 143/91 (108) 97 94 09/21/18 09:00 Room Air 09/21/18 08:00 97.6 99 19 160/94 (116) 98 99 09/21/18 04:00 98.2 86 18 152/82 (105) 86 09/21/18 00:00 98.2 91 18 141/89 (106) 09/20/18 21:00 Room Air 09/20/18 20:00 99.0 101 24 150/90 (110) 09/20/18 17:30 161/85 09/20/18 16:00 98.7 88 19 161/85 (110) 95 I&O Intake and Output 09/20/18 09/21/18 19:00 07:00 Intake Total 640 ml 805 ml Balance 640 ml 805 ml Intake Free Water 200 ml 200 ml Tube Feeding 440 ml 605 ml Laboratory Tests Test 09/21/18 06:18 White Blood Count 10.3 K/UL (4.8-10.8) Red Blood Count 3.15 M/UL (4.70-6.10) L Hemoglobin 9.8 G/DL (14.2-18.0) L Hematocrit 30.3 % (42.0-52.0) L Mean Corpuscular Volume 96 FL (80-99) Mean Corpuscular Hemoglobin 31.2 PG (27.0-31.0) H Mean Corpuscular Hemoglobin Concent 32.4 G/DL (32.0-36.0) Red Cell Distribution Width 13.4 % (11.6-14.8) Platelet Count 413 K/UL (150-450) Mean Platelet Volume 5.9 FL (6.5-10.1) L Neutrophils (%) (Auto) 69.7 % (45.0-75.0) Lymphocytes (%) (Auto) 21.9 % (20.0-45.0) Monocytes (%) (Auto) 6.3 % (1.0-10.0) Eosinophils (%) (Auto) 1.3 % (0.0-3.0) Basophils (%) (Auto) 0.9 % (0.0-2.0) Sodium Level 145 MMOL/L (136-145) Potassium Level 4.4 MMOL/L (3.5-5.1) Chloride Level 111 MMOL/L (98-107) H Carbon Dioxide Level 24 MMOL/L (21-32) Anion Gap 10 mmol/L (5-15) Blood Urea Nitrogen 25 mg/dL (7-18) H Creatinine 1.1 MG/DL (0.55-1.30) Estimat Glomerular Filtration Rate mL/min (>60) Glucose Level 132 MG/DL (74-106) H Calcium Level 9.7 MG/DL (8.5-10.1) Plan Problems: (1) Decubitus skin ulcer Assessment & Plan: Pt presented on admission with multiple pressure injuries. DTPI R trochanteric.Base of wound maroon and indurated (L)2cm x (W)5cm. Periwound without erythema or fluctuance. No evidence of skin breakdown sacrum or L trochanter. Non-blanchable erythema with fluctuance noted to medial R heel (L)4.5cm x (W) 4.5cm. DTPI noted to lateral L heel .Base of wound maroon and fluctuant(L)3.5cm x (W) 3cm.Periwound fluctuant but pink. Reabsorbing blood blister dorso/flexor R foot(L)1cm x (W)0.5cm.Base of wound purple fluctuant in center with dry borders. Non-blanchable erythema with fluctuance noted to distal/lateral R foot (L)1cm, x (W)1cm. Lateral R 5th metatarsal maroon and fluctuant.(L)1cm x (W)1cm. Non-blanchable erythema without fluctuance or induration lateral R malleolus(L) 0.5cm x (W)0.5cm .Periwound without erythema. Tx.Plan: Apply Cavilon Skin Barrier to R trochanter. Cover with Optifoam drsg. Change every 7 days and prn. Apply Cavilon Skin Barrier to L trochanter. Cover with Optifoam drsg.Change every 7 days and prn. Apply Moisture Barrier to Sacrum. Cover with Optifoam drsg. Change every 7 days and prn. Apply Cavilon Skin Barrier distal/lateral R foot, lateral R 5th metatarsal, lateral R malleolus,dorso/flexorR foot and R heel. Cover each site with Optifoam drsg. Change every 7 days and PRN. Apply Cavilon Skin Barrier to L heel. Cover with Optifoam drsg. Change every 7 days and prn. Reposition at least every 2hours or as tolerated. Place pillow between knees. Off-load heels with pillow. APM/RAVINDER Mattress overlay. (2) Pneumonia (3) BRYANT (acute kidney injury) (4) Septic shock Assessment & Plan: DAILY ESTIMATED NEEDS: Needs based on Wt loss, wound/ 53kg 30-35 kcals/kg 7396-2631 total kcals 1.25-1.5 g protein/kg 66-79 g total protein 25-30 mL/kg 2863-8788 total fluid mLs NUTRITION DIAGNOSIS: * Swallowing difficulty R/T dysphagia, decreased cognitive fxn as evidenced by NET[employer] COMPUTER CONSULTANT recommends NPO at this time, w/ an order for NGT insertion. * Increased kcal/prot intake needs R/T wt loss, wound healing as evidenced by pt admitted w/ possible significant wt loss of 10 pounds/7.9% wt loss in <1 mo, w/ wound photos, not yet evaluated. * Altered nutrition related lab values R/T ARF, dehydration, diabetes as evidenced by elev Na (162), elev Creat (8.3->4.7), elev BGs (203 197), elev A1C 6.3. CURRENT DIET:NPO ENTERAL NUTRITION RECOMMENDATIONS: Glucerna 1.2 @ 56ml/hr x 24 hrs to provide 1344ml, 1613kcal, 80g prot, 1082ml free water * W/ GI access, initiate Glucerna 1.2 @ 26ml/hr x 6 hrs * Advance 10ml q 4-6 hrs as tolerated to goal rate of 56ml/hr x 24 hrs * HOB over 30 degrees/ water flush per MD ADDITIONAL RECOMMENDATIONS: * Per SNF, HT=63", [id number] (on 08/30/18) * Monitor renal fxn- improving at this time * Monitor lytes w/ TF, replete as needed * F/up wound eval -> rec to add Lemuel 1pkt BID (5) Failure to thrive syndrome, adult Assessment & Plan: Needs nutritional supplementation G tube feeds (6) Rhabdomyolysis Reji Guy Sep 21, 2018 15:46
[2018-09-21 16:00] VITALS: BP 151/85
--- NOTE | 2018-09-21 18:30 | Progress Note ---
DATE: 09/21/2018 SUBJECTIVE: The patient failed swallow evaluation. Confused and disoriented. He was more agitated this morning. He continues to be in bilateral soft restraints. MENTAL STATUS EXAMINATION: The patient is asleep arousable and confused. Mood is anxious. Affect is flat. Thought process, there is a paucity of thought content. Thought content, no suicidal or homicidal ideations. ASSESSMENT: Encephalopathy. PLAN: We will continue current medications. Rob Baltazar M.D. DR: GRAEME JOB#: [id number] CC:
--- NOTE | 2018-09-21 19:00 | NUR ---
HAND-OFF: Report given to Judi CURRY.
--- NOTE | 2018-09-21 19:34 | NUR ---
NURSE NOTES: Received patient in bed, asleep, no acute distress noted, on room air, bed bound, alert x 1, Greek speaking. Gtube in place, site is clean dry and intact, on glucerna 1.5 at 50 cc per hr, with 100 cc flush every 6 hrs. Call light within reach, bed is in low position, locked and alarm is on. Will continue to monitor for safety and comfort.
[2018-09-21 20:00] VITALS: BP 148/88
--- NOTE | 2018-09-21 22:35 | General Progress Note ---
Assessment/Plan Status: stable Assessment/Plan: 72 year old male admitted for septic shock 2/2 pna vs uti Septic shock likley 2/2 PNA vs UTI - resolved - d/c Vanc, Zosyn changed to flagyl, fluconazole and ceftin -f/u blood cultures -Monitor respiratory status -s/p 3L NS -ID Consult appreciated. On oral antibiotics until 09/21 -Pulm/Crit consult appreciated -surgery consult appreciated -DC femoral line done - mild improvement in WBC. Follow up LFT's noted to be slightly elevated. -AFEVER -pending b/l LE Doppler to r/o DVT #BRYANT - resolved #rhabdomyolysis -Likley 2/2 shock vs drug induced, CK elevated poss rhabdo -trend CK - trending down and resolved now. -nephrology consult appreciated -CTM -avoid nephrotoxic medications #Hypernatremia likley 2/2 poor PO intake - improved -cont D5W -CTM -Nephrology consult appreciated #severe HypoKalemia #Hypomagnesemia -cont IV repletion -CTM #dysphagia #Failure to thrive -s/p PEG 09/15/18 -GI consult appreciated - Tolerating tube feeds. #Dispo -CM consulted to dc back to SNF at [facility] where he is a current resident. Subjective Date patient seen: Sep 21, 2018 Allergies: Coded Allergies: No Known Allergies (Unverified , 08/20/18) Subjective No acute overnight events, febrile this AM, no clear source of infection, will do b/l LE doppler to r/o DVT, if remains afebrile will transfer to SNF in AM Objective Last 24 Hour Vital Signs Date Time Temp Pulse Resp B/P (MAP) Pulse Ox O2 Delivery O2 Flow Rate FiO2 09/21/18 21:00 Room Air 09/21/18 20:00 98.4 84 20 148/88 (108) 84 09/21/18 16:00 98.5 91 19 151/85 (107) 96 91 09/21/18 12:00 97.8 94 18 143/91 (108) 97 94 09/21/18 09:00 Room Air 09/21/18 08:00 97.6 99 19 160/94 (116) 98 99 09/21/18 04:00 98.2 86 18 152/82 (105) 86 09/21/18 00:00 98.2 91 18 141/89 (106) Intake and Output 09/20/18 09/21/18 18:59 06:59 Intake Total 640 ml 805 ml Balance 640 ml 805 ml Intake Free Water 200 ml 200 ml Tube Feeding 440 ml 605 ml Laboratory Tests 09/21/18 06:18: White Blood Count 10.3, Red Blood Count 3.15L, Hemoglobin 9.8L, Hematocrit 30.3L , Mean Corpuscular Volume 96, Mean Corpuscular Hemoglobin 31.2H, Mean Corpuscular Hemoglobin Concent 32.4, Red Cell Distribution Width 13.4, Platelet Count 413, Mean Platelet Volume 5.9L, Neutrophils (%) (Auto) 69.7, Lymphocytes ( %) (Auto) 21.9, Monocytes (%) (Auto) 6.3, Eosinophils (%) (Auto) 1.3, Basophils (%) (Auto) 0.9, Sodium Level 145, Potassium Level 4.4, Chloride Level 111H, Carbon Dioxide Level 24, Anion Gap 10, Blood Urea Nitrogen 25H, Creatinine 1.1, Estimat Glomerular Filtration Rate , Glucose Level 132H, Calcium Level 9.7 Height (Feet): 5 Height (Inches): 4.00 Weight (Pounds): 135 Objective General Appearance: WD/WN, lethargic, confused Lines, tubes and drains: peripheral, central line HEENT: normocephalic, atraumatic, ng tube in place Neck: non-tender Respiratory/Chest: chest wall non-tender, no accessory muscle use Cardiovascular/Chest: normal peripheral pulses Abdomen: normal bowel sounds, +binder Neurologic: disoriented Kimberlyn Bonner MD Sep 21, 2018 22:35
[2018-09-22] VITALS: BP 156/94
[2018-09-22 04:00] VITALS: BP 148/89
[2018-09-22] MEDS: NovoLOG Insulin Flexpen SUBQ SCH ×2 (05:23→09:31)
[2018-09-22] MEDS: metroNIDAZOLE 500mg tab ORAL SCH (05:37)
[2018-09-22 06:21] LABS: BASOPHILS % (AUTO) 1.1 % (0.0-2.0); EOSINOPHILS % (AUTO) 2.2 % (0.0-3.0); HEMATOCRIT 31.1 % (42.0-52.0); HEMOGLOBIN 10.2 G/DL (14.2-18.0); LYMPHOCYTES % (AUTO) 23.8 % (20.0-45.0); MEAN CORPUSCULAR VOLUME 96 FL (80-99); MONOCYTES % (AUTO) 7.5 % (1.0-10.0); NEUTROPHILS % (AUTO) 65.4 % (45.0-75.0); PLATELET COUNT 419 K/UL (150-450); RED BLOOD COUNT 3.22 M/UL (4.70-6.10); RED CELL DISTRIBUTION WIDTH 13.8 % (11.6-14.8); WHITE BLOOD COUNT 8.5 K/UL (4.8-10.8)
[2018-09-22 06:36] LABS: ALANINE AMINOTRANSFERASE 78 U/L (12-78); ALBUMIN 2.4 G/DL (3.4-5.0); ALBUMIN/GLOBULIN RATIO 0.5 (1.0-2.7); ALKALINE PHOSPHATASE 157 U/L (46-116); ANION GAP 9 mmol/L (5-15); ASPARTATE AMINO TRANSFERASE 47 U/L (15-37); BILIRUBIN,TOTAL 0.3 MG/DL (0.2-1.0); BLOOD UREA NITROGEN 28 mg/dL (7-18); CALCIUM 9.6 MG/DL (8.5-10.1); CARBON DIOXIDE 24 MMOL/L (21-32); CHLORIDE 109 MMOL/L (98-107); CREATININE 1.1 MG/DL (0.55-1.30); POTASSIUM 4.3 MMOL/L (3.5-5.1); SODIUM 142 MMOL/L (136-145)
--- NOTE | 2018-09-22 07:18 | NUR ---
HAND-OFF: Report given to Carolyn CURRY.
--- NOTE | 2018-09-22 07:45 | NUR ---
NURSE NOTES: Pt resting in bed. Pt A/O x 1, calm. no SOB noted, pts on Gtube feeding, tolerating well, no residual. Dressings CDI. bed alarm on. will continue to monitor.
[2018-09-22 08:00] VITALS: BP 150/89
[2018-09-22 09:00] VITALS: BP 150/89
[2018-09-22] MEDS: Fluconazole 100mg tab ORAL SCH (09:00)
[2018-09-22] MEDS: Heparin 5000 units/ml inj SUBQ SCH (09:06)
--- NOTE | 2018-09-22 09:20 | NUR ---
CASE MANAGEMENT:REVIEW 09/22/18 SI: SEPTIC SHOCK. BRYANT. RHABDO. DYSPHAGIA....POD #7....S/P PEG 99.4 87 20 148/89 96% ON RA H/H-..1 IS: DIFLUCAN GT QD FLAGYL GT Q8HRS CEFTIN GT Q12 K-DUR GT BID HEPARIN SQ Q12 : MED/SURG STATUS 4 EAST DCP: FROM [facility] PLAN: REPEATED CULTURES FROM 09/18 ~ NEGATIVE VENOUS DUPLEX RESULTS ~ PENDING
--- NOTE | 2018-09-22 09:24 | NUR ---
DISCHARGE PLAN PLAN IS FOR PATIENT TO RETURN TO [facility] TODAY VENOUS DUPLEX RESULTS ARE PENDING *8CASE MEALS ON WHEELS DRIVER WAITING FOR OFFICIAL DISCHARGE ORDER Addendum: 09/22/18 at 0928 by ROBY ANAYA LVN LVN FAXED CLINICALS TO [facility] T: [phone] F: [phone]
[2018-09-22] MEDS ORDERED: CEFUROXIME250 MG ORAL (11:00)
[2018-09-22] MEDS ORDERED: DIFLUCAN100 MG ORAL (11:00)
[2018-09-22] MEDS ORDERED: FLAGYL500 MG ORAL (11:00)
[2018-09-22] MEDS ORDERED: HYDRALAZINE HCL25 M1 ORAL (11:00)
--- NOTE | 2018-09-22 11:02 | GI Progress Note ---
Assessment/Plan Problems: (1) Encounter for PEG (percutaneous endoscopic gastrostomy) ICD Codes: Z43.1 - Encounter for attention to gastrostomy SNOMED: 868350979, 241054501 (2) Severe malnutrition ICD Codes: E43 - Unspecified severe protein-calorie malnutrition SNOMED: 19623973 (3) Dehydration ICD Codes: E86.0 - Dehydration SNOMED: 56121059 (4) Electrolyte imbalance ICD Codes: E87.8 - Other disorders of electrolyte and fluid balance, not elsewhere classified SNOMED: 790457786 (5) Failure to thrive syndrome, adult ICD Codes: R62.7 - Failure to thrive syndrome, adult SNOMED: 225164683 Status: stable Status Narrative Discussed with Dr. Romero. Assessment/Plan s/p PEG GTF GT care and flush abd us reviewed, negative for any biliary ductal dilation fu LFTS, hepatitis panel The patient was seen and examined at bedside and all new and available data was reviewed in the patients chart. I agree with the above findings, impression and plan. (Patient seen earlier today. Signature stamp does not reflect patient encounter time.). - Ramiro Romero MD Subjective Subjective Limited Discussed with RN Objective Last 24 Hour Vital Signs Date Time Temp Pulse Resp B/P (MAP) Pulse Ox O2 Delivery O2 Flow Rate FiO2 09/22/18 08:00 97.9 93 20 150/89 (109) 87 09/22/18 04:00 99.4 87 20 148/89 (108) 87 09/22/18 00:00 99.0 90 20 156/94 (114) 09/21/18 21:00 Room Air 09/21/18 20:00 98.4 84 20 148/88 (108) 84 09/21/18 16:00 98.5 91 19 151/85 (107) 96 91 09/21/18 12:00 97.8 94 18 143/91 (108) 97 94 Intake and Output 09/21/18 09/22/18 19:00 07:00 Intake Total 495 ml 320 ml Balance 495 ml 320 ml Intake Free Water 100 ml Tube Feeding 495 ml 220 ml Laboratory Tests Test 09/22/18 05:35 White Blood Count 8.5 K/UL (4.8-10.8) Red Blood Count 3.22 M/UL (4.70-6.10) L Hemoglobin 10.2 G/DL (14.2-18.0) L Hematocrit 31.1 % (42.0-52.0) L Mean Corpuscular Volume 96 FL (80-99) Mean Corpuscular Hemoglobin 31.6 PG (27.0-31.0) H Mean Corpuscular Hemoglobin Concent 32.8 G/DL (32.0-36.0) Red Cell Distribution Width 13.8 % (11.6-14.8) Platelet Count 419 K/UL (150-450) Mean Platelet Volume 6.1 FL (6.5-10.1) L Neutrophils (%) (Auto) 65.4 % (45.0-75.0) Lymphocytes (%) (Auto) 23.8 % (20.0-45.0) Monocytes (%) (Auto) 7.5 % (1.0-10.0) Eosinophils (%) (Auto) 2.2 % (0.0-3.0) Basophils (%) (Auto) 1.1 % (0.0-2.0) Sodium Level 142 MMOL/L (136-145) Potassium Level 4.3 MMOL/L (3.5-5.1) Chloride Level 109 MMOL/L (98-107) H Carbon Dioxide Level 24 MMOL/L (21-32) Anion Gap 9 mmol/L (5-15) Blood Urea Nitrogen 28 mg/dL (7-18) H Creatinine 1.1 MG/DL (0.55-1.30) Estimat Glomerular Filtration Rate mL/min (>60) Glucose Level 130 MG/DL (74-106) H Calcium Level 9.6 MG/DL (8.5-10.1) Total Bilirubin 0.3 MG/DL (0.2-1.0) Aspartate Amino Transf (AST/SGOT) 47 U/L (15-37) H Alanine Aminotransferase (ALT/SGPT) 78 U/L (12-78) Alkaline Phosphatase 157 U/L (46-116) H Total Protein 7.7 G/DL (6.4-8.2) Albumin 2.4 G/DL (3.4-5.0) L Globulin 5.3 g/dL Albumin/Globulin Ratio 0.5 (1.0-2.7) L Hepatitis A IgM Antibody Pending Hepatitis B Surface Antigen Pending Hepatitis B Core IgM Antibody Pending Hepatitis C Antibody Pending Height (Feet): 5 Height (Inches): 4.00 Weight (Pounds): 135 General Appearance: alert Cardiovascular: normal rate Respiratory/Chest: no accessory muscle use Abdominal Exam: site Stevo Milligan NP Sep 22, 2018 11:02
--- NOTE | 2018-09-22 11:08 | Nephrology Progress Note ---
Assessment/Plan Problem List: (1) BRYANT (acute kidney injury) Assessment: eresolved (2) Rhabdomyolysis (3) Septic shock (4) Failure to thrive syndrome, adult (5) Pneumonia Assessment Acute Renal Failure: ? Drug induced Was on Lisinopril and Celebrex Rhabdo: High CPK Dehydration Shock Sepsis / Pneumonia / UTI Malnutrition Plan PEG 7/3 K and Phos IV as needed SS Insulin off pressors antibiotics monitor renal parameters per orders to med surg ? DC planning Subjective ROS Limited/Unobtainable: No Constitutional: Reports: malaise, weakness Objective Objective Last 24 Hour Vital Signs Date Time Temp Pulse Resp B/P (MAP) Pulse Ox O2 Delivery O2 Flow Rate FiO2 09/22/18 08:00 97.9 93 20 150/89 (109) 87 09/22/18 04:00 99.4 87 20 148/89 (108) 87 09/22/18 00:00 99.0 90 20 156/94 (114) 09/21/18 21:00 Room Air 09/21/18 20:00 98.4 84 20 148/88 (108) 84 09/21/18 16:00 98.5 91 19 151/85 (107) 96 91 09/21/18 12:00 97.8 94 18 143/91 (108) 97 94 Intake and Output 09/21/18 09/22/18 19:00 07:00 Intake Total 495 ml 320 ml Balance 495 ml 320 ml Intake Free Water 100 ml Tube Feeding 495 ml 220 ml Current Medications Medications (Trade) Dose Ordered Sig/Altagracia Route PRN Reason Start Time Stop Time Status Last Admin Dose Admin Acetaminophen (Tylenol) 650 mg Q6H PRN ORAL Mild Pain/Temp > 100.5 09/18/18 17:00 10/18/18 16:59 09/19/18 22:13 Cefuroxime Axetil (Ceftin) 500 mg EVERY 12 HOURS ORAL 09/18/18 21:00 09/25/18 20:59 09/22/18 08:58 Dextrose (Dextrose 50%) 25 ml Q30M PRN IV Hypoglycemia 09/16/18 14:29 10/10/18 14:28 Dextrose (Dextrose 50%) 50 ml Q30M PRN IV Hypoglycemia 09/16/18 14:29 10/10/18 14:28 Fluconazole (Diflucan) 200 mg DAILY ORAL 09/19/18 09:00 09/26/18 08:59 09/22/18 09:00 Heparin Sodium (Porcine) (Heparin 5000 units/ml) 5,000 units EVERY 12 HOURS SUBQ 09/16/18 21:00 10/09/18 20:59 09/22/18 09:06 Hydralazine HCl (Apresoline) 25 mg Q6H PRN ORAL For High Blood Pressure 09/18/18 18:30 10/18/18 18:29 09/20/18 17:30 Insulin Aspart (NovoLOG) Q5H SUBQ 09/16/18 18:00 10/10/18 11:59 09/22/18 09:31 Lansoprazole (Prevacid) 30 mg BID GT 09/16/18 18:00 10/16/18 17:59 09/22/18 08:59 Metoclopramide HCl (Reglan) 5 mg Q6H PRN ORAL Nausea & Vomiting 09/16/18 14:30 10/16/18 14:29 Metronidazole (Flagyl) 500 mg Q8HR ORAL 09/18/18 22:00 09/25/18 21:59 09/22/18 05:37 Potassium Chloride (K-Dur) 40 meq TWICE A DAY GT 09/17/18 18:00 10/16/18 17:59 09/22/18 08:59 Quetiapine Fumarate (SEROquel) 25 mg Q6H PRN ORAL agitation 09/16/18 14:32 10/14/18 14:31 Laboratory Tests 09/22/18 05:35: White Blood Count 8.5, Red Blood Count 3.22L, Hemoglobin 10.2L, Hematocrit 31.1L , Mean Corpuscular Volume 96, Mean Corpuscular Hemoglobin 31.6H, Mean Corpuscular Hemoglobin Concent 32.8, Red Cell Distribution Width 13.8, Platelet Count 419, Mean Platelet Volume 6.1L, Neutrophils (%) (Auto) 65.4, Lymphocytes ( %) (Auto) 23.8, Monocytes (%) (Auto) 7.5, Eosinophils (%) (Auto) 2.2, Basophils (%) (Auto) 1.1, Sodium Level 142, Potassium Level 4.3, Chloride Level 109H, Carbon Dioxide Level 24, Anion Gap 9, Blood Urea Nitrogen 28H, Creatinine 1.1, Estimat Glomerular Filtration Rate , Glucose Level 130H, Calcium Level 9.6, Total Bilirubin 0.3, Aspartate Amino Transf (AST/SGOT) 47H, Alanine Aminotransferase (ALT/SGPT) 78, Alkaline Phosphatase 157H, Total Protein 7.7, Albumin 2.4L, Globulin 5.3, Albumin/Globulin Ratio 0.5L, Hepatitis A IgM Antibody [Pending], Hepatitis B Surface Antigen [Pending], Hepatitis B Core IgM Antibody [Pending], Hepatitis C Antibody [Pending] Height (Feet): 5 Height (Inches): 4.00 Weight (Pounds): 135 General Appearance: no apparent distress Objective no change Minh Phipps MD Sep 22, 2018 11:08
[2018-09-22 12:00] VITALS: BP 129/83
--- NOTE | 2018-09-22 12:06 | NUR ---
DISCHARGE PLANNED SEE DISCHARGE PLANNING INTERVENTION
--- NOTE | 2018-09-22 13:27 | Surgery Progress Note ---
Surgery Progress Note Subjective Symptoms: improved Objective Last 24 Hour Vital Signs Date Time Temp Pulse Resp B/P (MAP) Pulse Ox O2 Delivery O2 Flow Rate FiO2 09/22/18 12:00 98.0 80 20 129/83 (98) 97 09/22/18 09:00 97.9 93 20 150/89 (109) 87 09/22/18 09:00 Room Air 09/22/18 09:00 97.9 93 20 150/89 (109) 87 09/22/18 08:00 97.9 93 20 150/89 (109) 87 09/22/18 04:00 99.4 87 20 148/89 (108) 87 09/22/18 00:00 99.0 90 20 156/94 (114) 09/21/18 21:00 Room Air 09/21/18 20:00 98.4 84 20 148/88 (108) 84 09/21/18 16:00 98.5 91 19 151/85 (107) 96 91 I&O Intake and Output 09/21/18 09/22/18 19:00 07:00 Intake Total 495 ml 320 ml Balance 495 ml 320 ml Intake Free Water 100 ml Tube Feeding 495 ml 220 ml Dressing: dry Wound: clean Cardiovascular: RSR Respiratory: clear Abdomen: soft, non-tender, present bowel sounds, non-distended Extremities: no cyanosis, other Laboratory Tests Test 09/22/18 05:35 White Blood Count 8.5 K/UL (4.8-10.8) Red Blood Count 3.22 M/UL (4.70-6.10) L Hemoglobin 10.2 G/DL (14.2-18.0) L Hematocrit 31.1 % (42.0-52.0) L Mean Corpuscular Volume 96 FL (80-99) Mean Corpuscular Hemoglobin 31.6 PG (27.0-31.0) H Mean Corpuscular Hemoglobin Concent 32.8 G/DL (32.0-36.0) Red Cell Distribution Width 13.8 % (11.6-14.8) Platelet Count 419 K/UL (150-450) Mean Platelet Volume 6.1 FL (6.5-10.1) L Neutrophils (%) (Auto) 65.4 % (45.0-75.0) Lymphocytes (%) (Auto) 23.8 % (20.0-45.0) Monocytes (%) (Auto) 7.5 % (1.0-10.0) Eosinophils (%) (Auto) 2.2 % (0.0-3.0) Basophils (%) (Auto) 1.1 % (0.0-2.0) Sodium Level 142 MMOL/L (136-145) Potassium Level 4.3 MMOL/L (3.5-5.1) Chloride Level 109 MMOL/L (98-107) H Carbon Dioxide Level 24 MMOL/L (21-32) Anion Gap 9 mmol/L (5-15) Blood Urea Nitrogen 28 mg/dL (7-18) H Creatinine 1.1 MG/DL (0.55-1.30) Estimat Glomerular Filtration Rate mL/min (>60) Glucose Level 130 MG/DL (74-106) H Calcium Level 9.6 MG/DL (8.5-10.1) Total Bilirubin 0.3 MG/DL (0.2-1.0) Aspartate Amino Transf (AST/SGOT) 47 U/L (15-37) H Alanine Aminotransferase (ALT/SGPT) 78 U/L (12-78) Alkaline Phosphatase 157 U/L (46-116) H Total Protein 7.7 G/DL (6.4-8.2) Albumin 2.4 G/DL (3.4-5.0) L Globulin 5.3 g/dL Albumin/Globulin Ratio 0.5 (1.0-2.7) L Hepatitis A IgM Antibody Pending Hepatitis B Surface Antigen Pending Hepatitis B Core IgM Antibody Pending Hepatitis C Antibody Pending Plan Problems: (1) Decubitus skin ulcer Assessment & Plan: Pt presented on admission with multiple pressure injuries. DTPI R trochanteric.Base of wound maroon and indurated (L)2cm x (W)5cm. Periwound without erythema or fluctuance. No evidence of skin breakdown sacrum or L trochanter. Non-blanchable erythema with fluctuance noted to medial R heel (L)4.5cm x (W) 4.5cm. DTPI noted to lateral L heel .Base of wound maroon and fluctuant(L)3.5cm x (W) 3cm.Periwound fluctuant but pink. Reabsorbing blood blister dorso/flexor R foot(L)1cm x (W)0.5cm.Base of wound purple fluctuant in center with dry borders. Non-blanchable erythema with fluctuance noted to distal/lateral R foot (L)1cm, x (W)1cm. Lateral R 5th metatarsal maroon and fluctuant.(L)1cm x (W)1cm. Non-blanchable erythema without fluctuance or induration lateral R malleolus(L) 0.5cm x (W)0.5cm .Periwound without erythema. Tx.Plan: Apply Cavilon Skin Barrier to R trochanter. Cover with Optifoam drsg. Change every 7 days and prn. Apply Cavilon Skin Barrier to L trochanter. Cover with Optifoam drsg.Change every 7 days and prn. Apply Moisture Barrier to Sacrum. Cover with Optifoam drsg. Change every 7 days and prn. Apply Cavilon Skin Barrier distal/lateral R foot, lateral R 5th metatarsal, lateral R malleolus,dorso/flexorR foot and R heel. Cover each site with Optifoam drsg. Change every 7 days and PRN. Apply Cavilon Skin Barrier to L heel. Cover with Optifoam drsg. Change every 7 days and prn. Reposition at least every 2hours or as tolerated. Place pillow between knees. Off-load heels with pillow. APM/RAVINDER Mattress overlay. (2) Pneumonia (3) BRYANT (acute kidney injury) (4) Septic shock Assessment & Plan: DAILY ESTIMATED NEEDS: Needs based on Wt loss, wound/ 53kg 30-35 kcals/kg 7963-1491 total kcals 1.25-1.5 g protein/kg 66-79 g total protein 25-30 mL/kg 0175-6697 total fluid mLs NUTRITION DIAGNOSIS: * Swallowing difficulty R/T dysphagia, decreased cognitive fxn as evidenced by INSURANCE ADJUSTOR recommends NPO at this time, w/ an order for NGT insertion. * Increased kcal/prot intake needs R/T wt loss, wound healing as evidenced by pt admitted w/ possible significant wt loss of 10 pounds/7.9% wt loss in <1 mo, w/ wound photos, not yet evaluated. * Altered nutrition related lab values R/T ARF, dehydration, diabetes as evidenced by elev Na (162), elev Creat (8.3->4.7), elev BGs (203 197), elev A1C 6.3. CURRENT DIET:NPO ENTERAL NUTRITION RECOMMENDATIONS: Glucerna 1.2 @ 56ml/hr x 24 hrs to provide 1344ml, 1613kcal, 80g prot, 1082ml free water * W/ GI access, initiate Glucerna 1.2 @ 26ml/hr x 6 hrs * Advance 10ml q 4-6 hrs as tolerated to goal rate of 56ml/hr x 24 hrs * HOB over 30 degrees/ water flush per MD ADDITIONAL RECOMMENDATIONS: * Per SNF, HT=63", [id number] (on 08/30/18) * Monitor renal fxn- improving at this time * Monitor lytes w/ TF, replete as needed * F/up wound eval -> rec to add Lemuel 1pkt BID (5) Failure to thrive syndrome, adult Assessment & Plan: Needs nutritional supplementation G tube feeds (6) Rhabdomyolysis Reji Guy Sep 22, 2018 13:27
--- NOTE | 2018-09-22 13:30 | NUR ---
NURSE NOTES: Call made to [facility] , left message regarding DC order to SNF. waiting for call back.
--- NOTE | 2018-09-22 14:03 | Diagnostic Imaging Report ---
APPROVED REPORT CPT Code: 91668 Present Symptoms Comments: R/O Thrombosis Screening Technically difficult study due to BLE contracture of hip and knee. BILATERAL: Imaging reveals a patent deep venous system bilaterally. There is no evidence of thrombus within the common femoral, superficial femoral, popliteal or tibial segments. The greater saphenous veins are within normal limits. Doppler indicates normal spontaneous flow within these segments.
--- NOTE | 2018-09-22 14:24 | NUR ---
NURSE NOTES: DC pt to [facility], report given to Chelsey CURRY. Pts VS stable, calm, A/O x 1. no SOB noted, duggan in place, GT clamped, tolerating feeding well, no residual, abd binder on. Dressing changed, faby heels and faby hips, pictures taken, pt had BM x 1, soft. no belongings. no home medication.
--- NOTE | 2018-09-22 14:46 | Infectious Diseases Prog Note ---
Assessment/Plan Assessment/Plan ASSESSMENT AND PLAN: 1. sepsis, shock, fevers, leukocytosis, sirs, pneumonia, ? uti, mrsa colonization, ? c.diff., fungemia risk, diarrhea - continue ceftin and flagyl x 3 days, diflucan x 5 days - overall sepsis and shock improved, leukocytosis and fevers resolved - surveillance blood cultures and urine culture negative, c.diff. negative, chest x-ray without change - monitor labs and chest x-ray - monitor low grade temps and mild leukocytosis closely - continue tx per primary team and consultants - d/w RN - d/w Dr. Bonner about discharge abx -stable ID standpoint for discharge 2. 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 Anemia. 4. Hyperlipidemia. 5. Acute kidney injury. 6. Multiple wounds were noted. Skin care per Surgery and protocol. 7. The patient has history of dementia. 8. History of dysphagia. 9. Aspiration risk. 10. Contractures. 11. Weakness. 12. Dementia. 13. Pre-glaucoma. 14. Depression. 15. Continue treatment per primary consultants. 16. No known allergies. 17. Social history is negative. 18. Family history is noncontributory. 19. MAR was noted. 20. Case was discussed with RN. 21. Case was discussed with Dr. Connolly. Subjective Constitutional: Denies: fever HEENT: Denies: congestion Respiratory: Denies: shortness of breath Cardiovascular: Denies: chest pain Gastrointestinal/Abdominal: Denies: nausea, vomiting Genitourinary: Denies: dysuria Neurologic: Denies: headache Psychiatric: Denies: depression Hematologic: Denies: bleeding Musculoskeletal: Denies: pain Allergies: Coded Allergies: No Known Allergies (Unverified , 08/20/18) Objective Vital Signs Last 24 Hour Vital Signs Date Time Temp Pulse Resp B/P (MAP) Pulse Ox O2 Delivery O2 Flow Rate FiO2 09/22/18 12:00 98.0 80 20 129/83 (98) 97 09/22/18 09:00 97.9 93 20 150/89 (109) 87 09/22/18 09:00 Room Air 09/22/18 09:00 97.9 93 20 150/89 (109) 87 09/22/18 08:00 97.9 93 20 150/89 (109) 87 09/22/18 04:00 99.4 87 20 148/89 (108) 87 09/22/18 00:00 99.0 90 20 156/94 (114) 09/21/18 21:00 Room Air 09/21/18 20:00 98.4 84 20 148/88 (108) 84 09/21/18 16:00 98.5 91 19 151/85 (107) 96 91 Height (Feet): 5 Height (Inches): 4.00 Weight (Pounds): 135 General Appearance: no acute distress HEENT: normocephalic, atraumatic, anicteric, mucous membranes moist Respiratory/Chest: lungs clear, normal breath sounds, no respiratory distress, no accessory muscle use Cardiovascular: normal rate, regular rhythm, no gallop/murmur, no JVD Abdomen: normal bowel sounds, soft, non tender, no organomegaly, non distended Genitourinary: other - no duggan Extremities: no cyanosis Skin: no rash Neurologic/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 Lungs/pleura: Slightly increased patchy opacity in the left lung. Decreased left pleural effusion. Mild elevation of the right hemidiaphragm. Heart/mediastinum: Normal. No cardiomegaly. Chest x-ray - 09/12/18 - Soft tissues: Unremarkable. Bones: No acute fracture. Degenerative changes of the visualized left acromioclavicular joints. Upper abdomen: Normal. IMPRESSION: Slightly increased patchy opacity in the left lung. Decreased left pleural effusion. Interval placement of an enteric tube which terminates in the region of the gastric antrum. Chest x-ray - 09/14/18 - Procedure: XRAY Chest 1v Indication: Dyspnea Comparison: 09/12/2018 A single view chest radiograph was obtained. Findings: Left pulmonary infiltrate again noted without change. NG tube again noted. Heart size is stable. IMPRESSION: No change from the prior examination. 09/19/18 - chest x-ray - IMPRESSION: Persistent patchy left perihilar consolidation, not significantly changed. Microbiology Date/Time Source Procedure Growth Status 09/18/18 17:45 Blood Blood Culture - Preliminary NO GROWTH AFTER 72 HOURS Resulted 09/10/18 16:25 Sputum Induced Gram Stain - Final Complete 09/10/18 16:25 Sputum Induced Sputum Culture - Final NORMAL UPPER RESPIRATORY ADRIANA PRESENT Complete 09/18/18 16:00 Stool Clostridium difficile Toxin Assay - Final Complete 09/18/18 17:05 Indwelling Cath Urine Culture - Final NO GROWTH AFTER 48 HOURS Complete 09/09/18 16:30 Rectum VRE Culture - Final NO VANCOMYCIN RESISTANT ENTEROCOCCUS ... Complete 09/09/18 16:30 Rectum - Final NO CARBAPENEM-RESISTANT ENTEROBACTERI... Complete Laboratory Tests Test 09/22/18 05:35 White Blood Count 8.5 K/UL (4.8-10.8) Red Blood Count 3.22 M/UL (4.70-6.10) L Hemoglobin 10.2 G/DL (14.2-18.0) L Hematocrit 31.1 % (42.0-52.0) L Mean Corpuscular Volume 96 FL (80-99) Mean Corpuscular Hemoglobin 31.6 PG (27.0-31.0) H Mean Corpuscular Hemoglobin Concent 32.8 G/DL (32.0-36.0) Red Cell Distribution Width 13.8 % (11.6-14.8) Platelet Count 419 K/UL (150-450) Mean Platelet Volume 6.1 FL (6.5-10.1) L Neutrophils (%) (Auto) 65.4 % (45.0-75.0) Lymphocytes (%) (Auto) 23.8 % (20.0-45.0) Monocytes (%) (Auto) 7.5 % (1.0-10.0) Eosinophils (%) (Auto) 2.2 % (0.0-3.0) Basophils (%) (Auto) 1.1 % (0.0-2.0) Sodium Level 142 MMOL/L (136-145) Potassium Level 4.3 MMOL/L (3.5-5.1) Chloride Level 109 MMOL/L (98-107) H Carbon Dioxide Level 24 MMOL/L (21-32) Anion Gap 9 mmol/L (5-15) Blood Urea Nitrogen 28 mg/dL (7-18) H Creatinine 1.1 MG/DL (0.55-1.30) Estimat Glomerular Filtration Rate mL/min (>60) Glucose Level 130 MG/DL (74-106) H Calcium Level 9.6 MG/DL (8.5-10.1) Total Bilirubin 0.3 MG/DL (0.2-1.0) Aspartate Amino Transf (AST/SGOT) 47 U/L (15-37) H Alanine Aminotransferase (ALT/SGPT) 78 U/L (12-78) Alkaline Phosphatase 157 U/L (46-116) H Total Protein 7.7 G/DL (6.4-8.2) Albumin 2.4 G/DL (3.4-5.0) L Globulin 5.3 g/dL Albumin/Globulin Ratio 0.5 (1.0-2.7) L Hepatitis A IgM Antibody Pending Hepatitis B Surface Antigen Pending Hepatitis B Core IgM Antibody Pending Hepatitis C Antibody Pending Current Medications Medications (Trade) Dose Ordered Sig/Altagracia Route PRN Reason Start Time Stop Time Status Last Admin Dose Admin Acetaminophen (Tylenol) 650 mg Q6H PRN ORAL Mild Pain/Temp > 100.5 09/18/18 17:00 10/18/18 16:59 09/19/18 22:13 Cefuroxime Axetil (Ceftin) 500 mg EVERY 12 HOURS ORAL 09/18/18 21:00 09/25/18 20:59 09/22/18 08:58 Dextrose (Dextrose 50%) 25 ml Q30M PRN IV Hypoglycemia 09/16/18 14:29 10/10/18 14:28 Dextrose (Dextrose 50%) 50 ml Q30M PRN IV Hypoglycemia 09/16/18 14:29 10/10/18 14:28 Fluconazole (Diflucan) 200 mg DAILY ORAL 09/19/18 09:00 09/26/18 08:59 09/22/18 09:00 Heparin Sodium (Porcine) (Heparin 5000 units/ml) 5,000 units EVERY 12 HOURS SUBQ 09/16/18 21:00 10/09/18 20:59 09/22/18 09:06 Hydralazine HCl (Apresoline) 25 mg Q6H PRN ORAL For High Blood Pressure 09/18/18 18:30 10/18/18 18:29 09/20/18 17:30 Insulin Aspart (NovoLOG) Q5H SUBQ 09/16/18 18:00 10/10/18 11:59 09/22/18 09:31 Lansoprazole (Prevacid) 30 mg BID GT 09/16/18 18:00 10/16/18 17:59 09/22/18 08:59 Metoclopramide HCl (Reglan) 5 mg Q6H PRN ORAL Nausea & Vomiting 09/16/18 14:30 10/16/18 14:29 Metronidazole (Flagyl) 500 mg Q8HR ORAL 09/18/18 22:00 09/25/18 21:59 09/22/18 05:37 Potassium Chloride (K-Dur) 40 meq TWICE A DAY GT 09/17/18 18:00 10/16/18 17:59 09/22/18 08:59 Quetiapine Fumarate (SEROquel) 25 mg Q6H PRN ORAL agitation 09/16/18 14:32 10/14/18 14:31 Bonny Rincon MD Sep 22, 2018 14:46
--- NOTE | 2018-09-22 16:05 | Discharge Summary ---
Discharge Summary Hospital Course Date of Admission Sep 09, 2018 at 17:07 Date of Discharge Sep 22, 2018 at 15:06 Admitting Diagnosis DYSPNEA,HYPOTENSION HPI Cliff Saldana is a 72 year old male who was admitted on Sep 09, 2018 at 17:07 for Dyspnea, septic shock 2/2 PNA Hospital Course 72 year old male admitted for septic shock 2/2 pna vs uti Septic shock likley 2/2 PNA vs UTI - resolved - d/c Vanc, Zosyn changed to flagyl, fluconazole and ceftin -f/u blood cultures -Monitor respiratory status -s/p 3L NS -ID Consult appreciated. On oral antibiotics until 09/21 -Pulm/Crit consult appreciated -surgery consult appreciated -DC femoral line done - mild improvement in WBC. Follow up LFT's noted to be slightly elevated. -AFEVER -pending b/l LE Doppler to r/o DVT #BRYANT - resolved #rhabdomyolysis -Likley 2/2 shock vs drug induced, CK elevated poss rhabdo -trend CK - trending down and resolved now. -nephrology consult appreciated -CTM -avoid nephrotoxic medications #Hypernatremia likley 2/2 poor PO intake - improved -cont D5W -CTM -Nephrology consult appreciated #severe HypoKalemia #Hypomagnesemia -cont IV repletion -CTM #dysphagia #Failure to thrive -s/p PEG 09/15/18 -GI consult appreciated - Tolerating tube feeds. #Dispo -CM consulted to dc back to SNF at [facility] where he is a current resident. Discharge Condition Upon Discharge: stable Discharge Disposition Patient was discharged to Kimberlyn Bonner MD Sep 22, 2018 16:05
--- NOTE | 2018-09-22 20:15 | Progress Note ---
DATE: 09/22/2018 SUBJECTIVE: The patient is calmer today, less agitated, confused. He is still in self restraints. Memory impairment. MENTAL STATUS EXAMINATION: The patient is alert, confused, disoriented. Mood is neutral. Affect is flat. Thought process, there is a paucity of thought content. Thought content, no suicidal or homicidal ideation. ASSESSMENT: Stable. PLAN: We will continue current medications. Rob Baltazar M.D. DR: AMANDA JOB#: [id number] CC:
== END 2018-09-22 15:06 | DRG 871 ==
LOC: EDBD 16:23 → EMR 16:47 → ICU 17:07 → EDBEDREQ 17:18 → EDBEDREQSVC 17:18 → EDBEDREQ 17:33 → 2E 09-13 17:30 → 4E 09-16 15:12
PROC: 0DH63UZ Insertion of Feeding Device into Stomach, Percutaneous Approach (ICD-10-PCS; principal; 2018-09-15 11:57)
DX: A41.9 Sepsis, unspecified organism (principal); R65.21 Severe sepsis with septic shock; J18.9 Pneumonia, unspecified organism; K72.00 Acute and subacute hepatic failure without coma; G92 Toxic encephalopathy; N39.0 Urinary tract infection, site not specified; N17.9 Acute kidney failure, unspecified; E87.0 Hyperosmolality and hypernatremia; M62.82 Rhabdomyolysis; E46 Unspecified protein-calorie malnutrition; R13.10 Dysphagia, unspecified; R62.7 Adult failure to thrive; E87.6 Hypokalemia; E86.0 Dehydration; F03.90 Unspecified dementia, unspecified severity, without behavioral disturbance, psychotic disturbance, mood disturbance, and anxiety; I10 Essential (primary) hypertension; E11.9 Type 2 diabetes mellitus without complications; D64.9 Anemia, unspecified; M24.50 Contracture, unspecified joint; K29.70 Gastritis, unspecified, without bleeding; E83.42 Hypomagnesemia; L89.210 Pressure ulcer of right hip, unstageable; L89.620 Pressure ulcer of left heel, unstageable; Z22.322 Carrier or suspected carrier of Methicillin resistant Staphylococcus aureus; Z68.20 Body mass index [BMI] 20.0-20.9, adult
CPT/HCPCS: 36415; 36600; 71045; 74018; 76705; 80048; 80053; 80061; 80202; 81003; 82140; 82248; 82550; 82553; 82607; 82728; 82746; 82803; 82962; 82977; 83036; 83540; 83550; 83605; 83690; 83735; 83880; 84100; 84165; 84300; 84443; 84484; 84550; 85007; 85025; 85610; 85730; 86140; 86705; 86709; 86803; 87040; 87070; 87081; 87086; 87205; 87324; 87340; 89050; 92610; 93005; 93970; 94003; 94150; 96361; 96365; 96368; 99291; J1815; J2765; J8499

== ENCOUNTER 2018-10-26 13:28 | Emergency (ER) | payer MEDICARE, OTHER ==
[~2018-10-26] VITALS: Ht 165.1 cm; Wt 70.3 kg
[~2018-10-26 13:28] MED LIST changes: +ACETAMINOPHEN325 M1 RC; +CEFUROXIME250 MG ORAL; +CELEBREX100 MG ORAL; +DIFLUCAN100 MG ORAL; +FLAGYL500 MG ORAL; +HYDRALAZINE HCL25 M1 ORAL; +PEPCID AC20 M2 PO; +TRAMADOL HCL50 MG ORAL; +TYLENOL650 MG RC; +VITAMIN B-1100 MG ORAL
--- NOTE | 2018-10-26 14:02 | Emergency Room Report ---
History of Present Illness General Chief Complaint: Malfunctioning Gastric Tube Source: Medical Record, EMS Present Illness HPI Patient presents for gastrostomy tube reinsertion. It is uncertain how the previous one was removed. A Manriquez catheter was placed to keep the lumen open. The patient was recently admitted to the hospital with these discharge diagnoses : Septic shock likley 2/2 PNA vs UTI - resolved - improved after abx course #BRYANT - resolved #rhabdomyolysis -Likley 2/2 shock vs drug induced, CK elevated poss rhabdo -trend CK - trending down and resolved now. -nephrology consulted -CTM -avoid nephrotoxic medications #Hypernatremia likley 2/2 poor PO intake - improved -s/p D5W -Nephrology consult appreciated #severe HypoKalemia #Hypomagnesemia -s/p IV repletion -CTM #dysphagia #Failure to thrive -s/p PEG 09/15/18 -GI consult appreciated - Tolerating tube feeds. Allergies: Coded Allergies: No Known Allergies (Unverified , 08/20/18) Patient History Limited by: medical condition Past Medical History: see triage record, old chart reviewed Past Surgical History: other - Gastrostomy tube Social History Narrative custodial facility Reviewed Nursing Documentation: PMH: Agreed; PSxH: Agreed Nursing Documentation-PMH Hx Cardiac Problems: No Hx Cancer: No Hx Gastrointestinal Problems: Yes - dysphagia Hx Neurological Problems: Yes - AMS,lack of coordination Hx Cerebrovascular Accident: Yes - hypokalemia Hx Dementia: Yes Hx Weakness: Yes - generalized Review of Systems All Other Systems: limited Physical Exam Vital Signs Date Time Temp Pulse Resp B/P (MAP) Pulse Ox O2 Delivery O2 Flow Rate FiO2 10/26/18 14:13 98.2 65 19 158/76 (103) 100 Room Air Sp02 EP Interpretation: reviewed, normal General Appearance: alert, non-toxic, thin, other - Contractures, Chronically Ill Head: normocephalic, atraumatic Eyes: bilateral eye normal inspection, bilateral eye PERRL ENT: dry mucus membranes - Poor dentition Neck: supple, no bony tend Respiratory: chest non-tender, lungs clear, normal breath sounds Cardiovascular #1: regular rate, rhythm, no edema Cardiovascular #2: 2+ radial (L) Gastrointestinal: normal bowel sounds, non tender, soft, non-distended, other - Manriquez in place in G tube site Genitourinary: no CVA tenderness Musculoskeletal: no calf tenderness, other - Contractures Neurologic: alert, sensory intact, other - A phasic Psychiatric: mood/affect normal - Minimally responsive but alert Skin: Decubitus/Ulcer - Stage I and II decubiti all dependent portions of issue sacrum and heels Procedures Additional Procedure Procedure Narrative Manriquez catheter was removed from the G-tube site. A 14-gauge G-tube was reinserted with ease. Patient tolerated the procedure well. Medical Decision Making Diagnostic Impression: Primary Impression: Malfunction of gastrostomy tube ER Course Patient presents after dislodgment of gastrostomy tube. The patient is nontoxic at this time. He appears dry. He is not tachycardic however. Gastrostomy tube is indicated to be replaced. See procedure note. X-ray with gastrostomy tube documented in place. No medical emergency at this time. Patient stable for outpatient observation and treatment. Other X-Ray Diagnostic Results Other X-Ray Diagnostic Results : X-Ray ordered: Abdomen with Gastrografin # of Views/Limited Vs Complete: 1 View Indication: Other EP Interpretation: Yes Interpretation: nonspecific bowel gas, no sbo, other - Gastrografin in the stomach Impression: Other Electronically Signed by: Electronically signed by Elijah Zhu MD Last Vital Signs Date Time Temp Pulse Resp B/P (MAP) Pulse Ox O2 Delivery O2 Flow Rate FiO2 10/26/18 15:59 99.1 86 19 115/78 99 Room Air Status: improved Disposition: XFER SNF Condition: Improved Elijah Zhu MD Oct 26, 2018 14:02
[2018-10-26 14:15] VITALS: BP 140/90
--- NOTE | 2018-10-26 14:15 | NUR ---
ED Nurse Note: pt was brought in by debbie from [facility] c/o g tube malfunction. pt is unable to comprehend, pt has duggan on the g tube site. pt is contracted. ermd on bedside putting f14 g tube. awaiting for xra for confirmation. will continue to monitor.
--- NOTE | 2018-10-26 14:30 | NUR ---
ED Nurse Note: xray at bedside
[2018-10-26 15:12] VITALS: BP 119/67
--- NOTE | 2018-10-26 15:28 | Diagnostic Imaging Report ---
Indication: Reason For Exam: TUBE PLCMT Technique: Single AP view of the abdomen Comparison: Abdominal radiograph dated 09/13/2018 Findings: Bowel gas pattern is nonobstructive. Injection of contrast the percutaneous gastrostomy tube with opacification of gastric lumen demonstrated by rugae. IMPRESSION: Nonobstructive bowel gas pattern with opacification of gastric lumen.
--- NOTE | 2018-10-26 15:55 | NUR ---
ED Nurse Note: REPORT GIVEN TO NURSE TELLY
[2018-10-26 15:59] VITALS: BP 115/78
--- NOTE | 2018-10-26 15:59 | NUR ---
ED Nurse Note: PT. TRANSFERRED BACK TO FACILITY WITH NO S/S OF ACUTE DISTRESS NOTED
== END 2018-10-26 15:59 ==
LOC: EMR 14:20
DX: K94.23 Gastrostomy malfunction (principal); F03.90 Unspecified dementia, unspecified severity, without behavioral disturbance, psychotic disturbance, mood disturbance, and anxiety; N17.9 Acute kidney failure, unspecified
CPT/HCPCS: 43762; 74018; 99284; Q9963

== ENCOUNTER 2019-01-20 13:08 | Inpatient (IN) | payer MEDICARE, OTHER ==
[~2019-01-20] VITALS: Ht 162.6 cm; Wt 68.0 kg
[~2019-01-20 13:08] MED LIST changes: +PEPCID AC20 M2 GT; -PEPCID AC20 M2 PO; +PROTONIX40 M2 GT; +TRAMADOL HCL50 MG GT; -TRAMADOL HCL50 MG ORAL; +VANCOMYCIN750 MG/150 IV; +VITAMIN B-1100 MG GT; -VITAMIN B-1100 MG ORAL; +VITAMIN B-12500 MCG GT; +VITAMIN D250000 UNI1 GT; -VITAMIN D250000 UNI1 ORAL; +VITAMIN D400 INTLU GT; -VITAMIN D400 INTLU ORAL; +ZOFRAN4 M3 GT; +ZOSYN 3.373.375 GM/1 IVPB
[2019-01-20 13:35] VITALS: BP 90/52
--- NOTE | 2019-01-20 13:35 | NUR ---
ED Nurse Note: PT BROUGHT IN BY AMBULANCE FROM [facility] DUE TO [id number] F. PER EMS, TYLENOL 1000MG GIVEN IN FDC. ALSO WITH INCREASED WBC OF 21.7. AWAKE BUT WITH FLAT AFFECT WITH NO RESPIRATORY DISTRESS.
--- NOTE | 2019-01-20 13:53 | Emergency Room Report ---
History of Present Illness General Chief Complaint: Fever Source: Medical Record, EMS Present Illness HPI Presents with a history of elevated white blood cell count. The patient is in a vegetative state and cannot give any history. Patient was discharged December 29 with these discharge diagnoses: 1) Sepsis (2) GI bleed (3) Pneumonia (4) Failure to thrive syndrome, adult (5) Fecal impaction (6) Decubitus skin ulcer (7) Dehydration Allergies: Coded Allergies: No Known Allergies (Unverified , 08/20/18) Patient History Limited by: medical condition Past Medical History: see triage record, old chart reviewed Past Surgical History: other - Gastrostomy tube Social History Narrative custodial facility full code Reviewed Nursing Documentation: PMH: Agreed; PSxH: Agreed Nursing Documentation-PMH Past Medical History: No History, Except For Hx Cardiac Problems: No Hx Hypertension: Yes Hx Cancer: No Hx Gastrointestinal Problems: Yes - dysphagia Hx Neurological Problems: Yes - AMS,lack of coordination Hx Cerebrovascular Accident: Yes - hypokalemia Hx Dementia: Yes Hx Dysphasia: Yes Hx Weakness: Yes - generalized Review of Systems All Other Systems: limited Physical Exam Vital Signs Date Time Temp Pulse Resp B/P (MAP) Pulse Ox O2 Delivery O2 Flow Rate FiO2 01/20/19 13:25 97.9 75 18 90/52 (65) 94 Room Air Sp02 EP Interpretation: reviewed, abnormal - Interpreted as slightly low by me General Appearance: thin, other - Contractures not responding to painful stimuli, Chronically Ill Head: normocephalic, atraumatic Eyes: bilateral eye normal inspection ENT: dry mucus membranes Neck: other - Some rigidity Respiratory: lungs clear, normal breath sounds Cardiovascular #1: regular rate, rhythm, edema - Trace Gastrointestinal: other - Gastrostomy tube, decreased bowel sounds, scaphoid Musculoskeletal: other - Contractures all extremities Neurologic: motor weakness - All 4 extremities, other - Mid millimeter response to painful stimuli Psychiatric: other - Vegetative state Skin: Decubitus/Ulcer - Stage I-III bilateral lower legs in dependent portions , warm/dry Medical Decision Making Diagnostic Impression: Primary Impression: Sepsis Qualified Codes: A41.9 - Sepsis, unspecified organism Additional Impressions: Dehydration Failure to thrive syndrome, adult ER Course Patient with history of sepsis presents with elevated white counts with elevated white count. Differential includes sepsis, pneumonia, UTI, other occult infection, cellulitis, dehydration amongst others. Evaluation with EKG, chest x-ray and labs. Patient will receive hydration. If we can identify a source antibiotics will be started. EKG without injury. Chest x-ray with no infiltrates. Labs with leukocytosis. Elevated BUN. Urinalysis essentially clear. Discussed Leonardo who accepts patient. 14:40 Sepsis re-evaluation 15:45 - good cap fill. No clear source of infection. Seen by Dr. Valdez. Start zosyn and vancomycin Laboratory Tests Test 01/20/19 14:30 01/20/19 14:45 01/21/19 04:39 White Blood Count 13.1 K/UL (4.8-10.8) H 9.7 K/UL (4.8-10.8) Red Blood Count 3.41 M/UL (4.70-6.10) L 2.91 M/UL (4.70-6.10) L Hemoglobin 10.4 G/DL (14.2-18.0) L 8.7 G/DL (14.2-18.0) L Hematocrit 31.3 % (42.0-52.0) L 26.0 % (42.0-52.0) L Mean Corpuscular Volume 92 FL (80-99) 89 FL (80-99) Mean Corpuscular Hemoglobin 30.4 PG (27.0-31.0) 30.0 PG (27.0-31.0) Mean Corpuscular Hemoglobin Concent 33.1 G/DL (32.0-36.0) 33.6 G/DL (32.0-36.0) Red Cell Distribution Width 14.2 % (11.6-14.8) 13.9 % (11.6-14.8) Platelet Count 161 K/UL (150-450) 173 K/UL (150-450) Mean Platelet Volume 7.2 FL (6.5-10.1) 7.5 FL (6.5-10.1) Neutrophils (%) (Auto) 81.3 % (45.0-75.0) H 78.8 % (45.0-75.0) H Lymphocytes (%) (Auto) 12.0 % (20.0-45.0) L 12.6 % (20.0-45.0) L Monocytes (%) (Auto) 5.7 % (1.0-10.0) 7.1 % (1.0-10.0) Eosinophils (%) (Auto) 0.3 % (0.0-3.0) 0.9 % (0.0-3.0) Basophils (%) (Auto) 0.8 % (0.0-2.0) 0.7 % (0.0-2.0) Prothrombin Time 11.4 SEC (9.30-11.50) Prothrombin Time INR 1.1 (0.9-1.1) PTT 30 SEC (23-33) Sodium Level 138 MMOL/L (136-145) 139 MMOL/L (136-145) Potassium Level 3.9 MMOL/L (3.5-5.1) 3.2 MMOL/L (3.5-5.1) L Chloride Level 101 MMOL/L (98-107) 104 MMOL/L (98-107) Carbon Dioxide Level 24 MMOL/L (21-32) 24 MMOL/L (21-32) Anion Gap 13 mmol/L (5-15) 11 mmol/L (5-15) Blood Urea Nitrogen 33 mg/dL (7-18) H 20 mg/dL (7-18) H Creatinine 0.8 MG/DL (0.55-1.30) 0.9 MG/DL (0.55-1.30) Estimate Glomerular Filtration Rate mL/min (>60) mL/min (>60) Glucose Level 97 MG/DL (74-106) 112 MG/DL (74-106) H Lactic Acid Level 1.70 mmol/L (0.4-2.0) Calcium Level 9.6 MG/DL (8.5-10.1) 9.1 MG/DL (8.5-10.1) Magnesium Level 2.1 MG/DL (1.8-2.4) Total Bilirubin 0.5 MG/DL (0.2-1.0) 0.5 MG/DL (0.2-1.0) Aspartate Amino Transferase (AST) 35 U/L (15-37) 29 U/L (15-37) Alanine Aminotransferase (ALT) 34 U/L (12-78) 27 U/L (12-78) Alkaline Phosphatase 90 U/L (46-116) 74 U/L (46-116) Total Creatine Kinase 256 U/L (26-308) Troponin I 0.000 ng/mL (0.000-0.056) Pro-B-Type Natriuretic Peptide 516 pg/mL (0-125) H Total Protein 7.3 G/DL (6.4-8.2) 6.9 G/DL (6.4-8.2) Albumin 3.4 G/DL (3.4-5.0) 2.9 G/DL (3.4-5.0) L Globulin 3.9 g/dL 4.0 g/dL Albumin/Globulin Ratio 0.9 (1.0-2.7) L 0.7 (1.0-2.7) L Lipase 104 U/L (73-393) Urine Color Red Urine Appearance Very cloudy Urine pH 8 (4.5-8.0) Urine Specific Vancleve 1.030 (1.005-1.035) Urine Protein 3+ (NEGATIVE) H Urine Glucose (UA) Negative (NEGATIVE) Urine Ketones Negative (NEGATIVE) Urine Blood 5+ (NEGATIVE) H Urine Nitrite Negative (NEGATIVE) Urine Bilirubin Negative (NEGATIVE) Urine Urobilinogen 1 MG/DL (0.0-1.0) H Urine Leukocyte Esterase 2+ (NEGATIVE) H Urine RBC Tntc /HPF (0 - 0) H Urine WBC 5-10 /HPF (0 - 0) H Urine Squamous Epithelial Cells Occasional /LPF Urine Bacteria Moderate /HPF (NONE) H EKG Diagnostic Results Rate: normal Rhythm: NSR ST Segments: no acute changes Rhythm Strip Diag. Results EP Interpretation: yes Rhythm: NSR, no PVC's, no ectopy Chest X-Ray Diagnostic Results Chest X-Ray Diagnostic Results : Chest X-Ray Ordered: Yes # of Views/Limited/Complete: 1 View Indication: Other EP Interpretation: Yes Interpretation: no consolidation, no effusion, no pneumothorax Impression: Other Electronically Signed by: Electronically signed by Elijah Zhu MD Last Vital Signs Date Time Temp Pulse Resp B/P (MAP) Pulse Ox O2 Delivery O2 Flow Rate FiO2 01/21/19 12:00 96.6 92 20 131/57 (81) 98 01/21/19 08:30 Room Air Status: improved Disposition: ADMITTED INPATIENT Condition: Serious Elijah Zhu MD Jan 20, 2019 13:53
[2019-01-20] MEDS ORDERED: Albuterol/Ipratropium 3ml neb HHN PRN (14:45)
[2019-01-20] MEDS ORDERED: HYDROmorphone 1mg/ml Carpuject IVP PRN (14:45)
--- NOTE | 2019-01-20 14:45 | Diagnostic Imaging Report ---
Indication: Dyspnea Technique: One view of the chest Comparison: 12/28/2018 Findings: No acute infiltrates, effusions, or congestion. Tortuous calcified aorta. Normal heart size. Upper mediastinum unremarkable. Impression: No acute process.
--- NOTE | 2019-01-20 15:01 | History and Physical ---
History of Present Illness General Date patient seen: Jan 20, 2019 Reason for Hospitalization: sepsis Present Illness HPI Cliff Saldana is a 73 yo man with PMH of advanced dementia (bedbound, nonverbal, PEG dependent at baseline), dysphagia s/p PEG, HTN, depression, anemia of chronic disease , depression, and bilateral pressure ulcers in heels who presented from rehab facility [facility] for leukocytosis 21.7 and fever of 102 . History obtained from staff at [facility], ED physician, EMS records, and chart. Patient is non verbal and unable to offer any history. He received Tylenol 1000 mg at the facility. Patient is awake, non verbal with a flat affect. He is in no distress. Labs notable for leukocytosis 13.1 with left shift , anemia 10.4/31.3, BUN/Cr 33 /0.8, lactate 1.7, troponin negative, LFTs overall unremarkable, pro bnp 516, CK 256, UA: red, cloudy, nit negative, LE 2+, RBC Tntc H, wbc 5-10, bacteria moderate, CXR: no acute process PMH: advanced dementia (bedbound, nonverbal, PEG dependent at baseline), dysphagia s/p PEG, HTN, depression, anemia of chronic disease (last hgb 10.2 in 09/2018 and 15 in 08/2018), depression, and bilateral pressure ulcers in heels PSH: s/p PEG Meds: tylenol PRN, celebrex 100mg PEG daily, famotidine 20mg PEG BID, lisinopril 10mg PEG daily, tramadol 50mg PRN Allergies: NKDA FH: No known family hx listed in SNF report 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 No known blood relative. Closest family is his "manager integrity" for 30 years, Renetta Gibbs and her daughter ([phone] and [phone]) ROS: Unable to obtain full ROS due to patient nonverbal at baseline. Allergies: Coded Allergies: No Known Allergies (Unverified , 08/20/18) Medication History Scheduled Cyanocobalamin (Vitamin B-12)* (Vitamin B-12*), 1,000 MCG GT DAILY, (Reported) Ergocalciferol (Vitamin D2)* (Vitamin D*), 50,000 UNIT GT ONCE A WEEK, (Reported ) Lisinopril* (Zestril*), 10 MG ORAL DAILY Pantoprazole Sodium (Protonix), 40 MG GT DAILY Ytbyrlqboclh-Azil-Bokfhzkz,Iso (Zosyn 3.375 Gm Pre Mix-Bag), 3.375 GM IVPB EVERY 8 HOURS Thiamine Hcl* (Vitamin B-1*), 100 MG ORAL DAILY, (Reported) Vancomycin In Dextrose,Iso-Osm (Vancomycin 750 Mg/150 Ml Bag), 750 MG IV Q12HR Scheduled PRN Acetaminophen (Acetaminophen), 650 MG RC Q6HR PRN for FEVER, (Reported) Hydralazine Hcl* (Hydralazine Hcl*), 25 MG ORAL Q6H PRN Ondansetron* (Zofran*), 4 MG GT Q6H PRN for Nausea & Vomiting, (Reported) Tramadol Hcl* (Ultram*), 50 MG ORAL DAILY PRN for For Pain, (Reported) Patient History Healthcare decision maker N Resuscitation status Advanced Directive on File Physical Exam Physical Exam Narrative General Appearance: no apparent distress, alert, other - NAD. lying in bed, contracted in all four extremities.awake, flat affect, does not follow commands Lines, tubes and drains: peripheral HEENT: normocephalic, atraumatic, other - dry mucous membranes Neck: supple Respiratory/Chest: other - Coarse breath sounds bilaterally, no wheezing appreciated Cardiovascular/Chest: normal peripheral pulses, normal rate, regular rhythm Abdomen: normal bowel sounds, non tender, soft Extremities: non-tender, no edema, other - LE wounds dressing c/d/i Neurologic: other - Nonverbal, contracted in all 4 extremities (baseline), flat affect Musculoskeletal: atrophy Last 24 Hour Vital Signs Date Time Temp Pulse Resp B/P (MAP) Pulse Ox O2 Delivery O2 Flow Rate FiO2 01/20/19 13:35 97.9 75 15 90/52 97 Room Air 01/20/19 13:35 75 15 Room Air 01/20/19 13:25 97.9 75 18 90/52 (65) 94 Room Air Laboratory Tests Test 01/20/19 14:30 White Blood Count Pending Red Blood Count Pending Hemoglobin Pending Hematocrit Pending Mean Corpuscular Volume Pending Mean Corpuscular Hemoglobin Pending Mean Corpuscular Hemoglobin Concent Pending Red Cell Distribution Width Pending Platelet Count Pending Mean Platelet Volume Pending Neutrophils (%) (Auto) Pending Lymphocytes (%) (Auto) Pending Monocytes (%) (Auto) Pending Eosinophils (%) (Auto) Pending Basophils (%) (Auto) Pending Prothrombin Time Pending Prothromb Time International Ratio Pending Activated Partial Thromboplast Time Pending Sodium Level Pending Potassium Level Pending Chloride Level Pending Carbon Dioxide Level Pending Blood Urea Nitrogen Pending Creatinine Pending Estimat Glomerular Filtration Rate Pending Glucose Level Pending Lactic Acid Level Pending Calcium Level Pending Magnesium Level Pending Total Bilirubin Pending Aspartate Amino Transf (AST/SGOT) Pending Alanine Aminotransferase (ALT/SGPT) Pending Alkaline Phosphatase Pending Total Creatine Kinase Pending Troponin I Pending Pro-B-Type Natriuretic Peptide Pending Total Protein Pending Albumin Pending Globulin Pending Lipase Pending Height (Feet): 5 Height (Inches): 4.00 Weight (Pounds): 150 Medications Current Medications Medications (Trade) Dose Ordered Sig/Altagracia Route PRN Reason Start Time Stop Time Status Last Admin Dose Admin Acetaminophen (Tylenol) 650 mg Q4H PRN ORAL fever (temp>100.5F) 01/20/19 14:45 02/19/19 14:44 Albuterol/ Ipratropium (Albuterol/ Ipratropium) 3 ml Q4H PRN HHN Shortness of Breath 01/20/19 14:45 01/25/19 14:44 Dextrose (Dextrose 50%) 25 ml Q30M PRN IV Hypoglycemia 01/20/19 14:45 02/19/19 14:44 Dextrose (Dextrose 50%) 50 ml Q30M PRN IV Hypoglycemia 01/20/19 14:45 02/19/19 14:44 Heparin Sodium (Porcine) (Heparin 5000 units/ml) 5,000 units EVERY 12 HOURS SUBQ 01/20/19 21:00 02/19/19 20:59 Hydromorphone HCl (Dilaudid) 1 mg Q4H PRN IVP Moderate Pain (Pain Scale 4-6) 01/20/19 14:45 01/27/19 14:44 Hydromorphone HCl (Dilaudid) 2 mg Q4H PRN IVP Severe Pain (Pain Scale 7-10) 01/20/19 14:45 01/27/19 14:44 Ondansetron HCl (Zofran) 4 mg Q6H PRN IVP Nausea & Vomiting 01/20/19 14:45 02/19/19 14:44 Pantoprazole (Protonix) 40 mg DAILY IV 01/21/19 09:00 02/20/19 08:59 Sodium Chloride 1,000 ml @ 150 mls/hr Q6H40M IVLG 01/20/19 15:00 02/19/19 14:59 Assessment/Plan Problem List: (1) UTI (urinary tract infection) ICD Codes: N39.0 - Urinary tract infection, site not specified SNOMED: 95383435 (2) Sepsis ICD Codes: A41.9 - Sepsis, unspecified organism SNOMED: 58270884 (3) Decubitus skin ulcer ICD Codes: L89.90 - Pressure ulcer of unspecified site, unspecified stage SNOMED: 334963346 (4) Hematuria ICD Codes: R31.9 - Hematuria, unspecified SNOMED: 46817618 Status: stable Assessment/Plan: Cliff Saldana is a 73 yo man with PMH of advanced dementia (bedbound, nonverbal, PEG dependent at baseline), dysphagia s/p PEG, HTN, depression, anemia of chronic disease, depression, and bilateral pressure ulcers in heels who presented from rehab facility [facility] for leukocytosis 21.7 and fever of 102 and hematuria #?possible sepsis, ? UTI, hematuria -IV Zosyn and Vancomycin -IV fluids -follow up cultures -npo except for meds -ID: Dr. Torres #Advance dementia- bed bound, PEG dependent #Depression #Anemia of chronic disease- stable #Bilateral pressure ulcers heels wound consult #Hx of HTN -Hold Lisinopril since low bp and possible sepsis vte ppx: heparin- however hold due to hematuria, place scd boots Gi ppx: ppi code: full I spent 70 minutes during this encounter, >50 spent on counselling and care coordination. case d/w with ED physician and ID physician. I spent an additional 31 minutes on chart review. Kameron Patterson M.D. Jan 20, 2019 15:01
[2019-01-20 15:07] LABS: BASOPHILS % (AUTO) 0.8 % (0.0-2.0); EOSINOPHILS % (AUTO) 0.3 % (0.0-3.0); HEMATOCRIT 31.3 % (42.0-52.0); HEMOGLOBIN 10.4 G/DL (14.2-18.0); MEAN CORPUSCULAR VOLUME 92 FL (80-99); MONOCYTES % (AUTO) 5.7 % (1.0-10.0); NEUTROPHILS % (AUTO) 81.3 % (45.0-75.0); PLATELET COUNT 161 K/UL (150-450); RED BLOOD COUNT 3.41 M/UL (4.70-6.10); RED CELL DISTRIBUTION WIDTH 14.2 % (11.6-14.8); WHITE BLOOD COUNT 13.1 K/UL (4.8-10.8)
[2019-01-20 15:21] LABS: INR 1.1 (0.9-1.1)
[2019-01-20 15:24] LABS: APPEARANCE,URINE VERY CLOUDY; BILIRUBIN, URINE NEGATIVE (NEGATIVE); GLUCOSE, URINE (UA) NEGATIVE (NEGATIVE); KETONES,URINE NEGATIVE (NEGATIVE); LEUKOCYTE ESTERASE ,URINE 2+ (NEGATIVE); NITRITE,URINE NEGATIVE (NEGATIVE); PH,URINE 8 (4.5-8.0); PROTEIN,URINE 3+ (NEGATIVE); UROBILINOGEN,URINE 1 MG/DL (0.0-1.0)
[2019-01-20 15:25] LABS: COLOR,URINE RED
[2019-01-20 15:29] LABS: ANION GAP 13 mmol/L (5-15); BLOOD UREA NITROGEN 33 mg/dL (7-18); CALCIUM 9.6 MG/DL (8.5-10.1); CARBON DIOXIDE 24 MMOL/L (21-32); CHLORIDE 101 MMOL/L (98-107); CREATININE 0.8 MG/DL (0.55-1.30); POTASSIUM 3.9 MMOL/L (3.5-5.1); SODIUM 138 MMOL/L (136-145)
[2019-01-20 15:38] LABS: ALANINE AMINOTRANSFERASE 34 U/L (12-78); ALBUMIN 3.4 G/DL (3.4-5.0); ALBUMIN/GLOBULIN RATIO 0.9 (1.0-2.7); ALKALINE PHOSPHATASE 90 U/L (46-116); ASPARTATE AMINO TRANSFERASE 35 U/L (15-37); BILIRUBIN,TOTAL 0.5 MG/DL (0.2-1.0); CREATINE KINASE 256 U/L (26-308)
--- NOTE | 2019-01-20 15:40 | NUR ---
ED Nurse Note: MRSA/VRE/CRE SWABS SENT TO LAB.
[2019-01-20 15:44] VITALS: BP 108/70
[2019-01-20] MEDS ORDERED: Piperacillin/Tazobactam 3.375 GM in NS 110 ML IVPB ONE (15:45)
[2019-01-20] MEDS ORDERED: Vancomycin 1 GM in D5W 275 ML IVPB ONE (15:45)
--- NOTE | 2019-01-20 16:10 | NUR ---
NURSE NOTES: Received report from ER nurse Althea/RN. Awaiting on patient to be transfer from ER.
--- NOTE | 2019-01-20 16:23 | Infectious Diseases Prog Note ---
Assessment/Plan Assessment/Plan Full consult dictated: A) 1) possible sepsis, ? uti, hematuria, leukocytosis 2) pmh noted 3) allergies - nkda P) 1) vancomycin and zosyn 2) check cultures, labs and chest x-ray 3) d/w Dr. Patterson 4) thank you Subjective Allergies: Coded Allergies: No Known Allergies (Unverified , 08/20/18) Objective Vital Signs Last 24 Hour Vital Signs Date Time Temp Pulse Resp B/P (MAP) Pulse Ox O2 Delivery O2 Flow Rate FiO2 01/20/19 15:44 98.4 80 16 108/70 99 Room Air 01/20/19 13:35 97.9 75 15 90/52 97 Room Air 01/20/19 13:35 75 15 Room Air 01/20/19 13:25 97.9 75 18 90/52 (65) 94 Room Air Height (Feet): 5 Height (Inches): 4.00 Weight (Pounds): 150 Microbiology Date/Time Source Procedure Growth Status 01/20/19 15:30 Rectum Received Laboratory Tests Test 01/20/19 14:30 01/20/19 14:45 White Blood Count 13.1 K/UL (4.8-10.8) H Red Blood Count 3.41 M/UL (4.70-6.10) L Hemoglobin 10.4 G/DL (14.2-18.0) L Hematocrit 31.3 % (42.0-52.0) L Mean Corpuscular Volume 92 FL (80-99) Mean Corpuscular Hemoglobin 30.4 PG (27.0-31.0) Mean Corpuscular Hemoglobin Concent 33.1 G/DL (32.0-36.0) Red Cell Distribution Width 14.2 % (11.6-14.8) Platelet Count 161 K/UL (150-450) Mean Platelet Volume 7.2 FL (6.5-10.1) Neutrophils (%) (Auto) 81.3 % (45.0-75.0) H Lymphocytes (%) (Auto) 12.0 % (20.0-45.0) L Monocytes (%) (Auto) 5.7 % (1.0-10.0) Eosinophils (%) (Auto) 0.3 % (0.0-3.0) Basophils (%) (Auto) 0.8 % (0.0-2.0) Prothrombin Time 11.4 SEC (9.30-11.50) Prothromb Time International Ratio 1.1 (0.9-1.1) Activated Partial Thromboplast Time 30 SEC (23-33) Sodium Level 138 MMOL/L (136-145) Potassium Level 3.9 MMOL/L (3.5-5.1) Chloride Level 101 MMOL/L (98-107) Carbon Dioxide Level 24 MMOL/L (21-32) Anion Gap 13 mmol/L (5-15) Blood Urea Nitrogen 33 mg/dL (7-18) H Creatinine 0.8 MG/DL (0.55-1.30) Estimat Glomerular Filtration Rate mL/min (>60) Glucose Level 97 MG/DL (74-106) Lactic Acid Level 1.70 mmol/L (0.4-2.0) Calcium Level 9.6 MG/DL (8.5-10.1) Magnesium Level 2.1 MG/DL (1.8-2.4) Total Bilirubin 0.5 MG/DL (0.2-1.0) Aspartate Amino Transf (AST/SGOT) 35 U/L (15-37) Alanine Aminotransferase (ALT/SGPT) 34 U/L (12-78) Alkaline Phosphatase 90 U/L (46-116) Total Creatine Kinase 256 U/L (26-308) Troponin I 0.000 ng/mL (0.000-0.056) Pro-B-Type Natriuretic Peptide 516 pg/mL (0-125) H Total Protein 7.3 G/DL (6.4-8.2) Albumin 3.4 G/DL (3.4-5.0) Globulin 3.9 g/dL Albumin/Globulin Ratio 0.9 (1.0-2.7) L Lipase 104 U/L (73-393) Urine Color Red Urine Appearance Very cloudy Urine pH 8 (4.5-8.0) Urine Specific [place] 1.030 (1.005-1.035) Urine Protein 3+ (NEGATIVE) H Urine Glucose (UA) Negative (NEGATIVE) Urine Ketones Negative (NEGATIVE) Urine Blood 5+ (NEGATIVE) H Urine Nitrite Negative (NEGATIVE) Urine Bilirubin Negative (NEGATIVE) Urine Urobilinogen 1 MG/DL (0.0-1.0) H Urine Leukocyte Esterase 2+ (NEGATIVE) H Urine RBC Tntc /HPF (0 - 0) H Urine WBC 5-10 /HPF (0 - 0) H Urine Squamous Epithelial Cells Occasional /LPF Urine Bacteria Moderate /HPF (NONE) H Current Medications Medications (Trade) Dose Ordered Sig/Altagracia Route PRN Reason Start Time Stop Time Status Last Admin Dose Admin Acetaminophen (Tylenol) 650 mg Q4H PRN ORAL fever (temp>100.5F) 01/20/19 14:45 02/19/19 14:44 Albuterol/ Ipratropium (Albuterol/ Ipratropium) 3 ml Q4H PRN HHN Shortness of Breath 01/20/19 14:45 01/25/19 14:44 Dextrose (Dextrose 50%) 25 ml Q30M PRN IV Hypoglycemia 01/20/19 14:45 02/19/19 14:44 Dextrose (Dextrose 50%) 50 ml Q30M PRN IV Hypoglycemia 01/20/19 14:45 02/19/19 14:44 Heparin Sodium (Porcine) (Heparin 5000 units/ml) 5,000 units EVERY 12 HOURS SUBQ 01/20/19 21:00 02/19/19 20:59 Hydromorphone HCl (Dilaudid) 1 mg Q4H PRN IVP Moderate Pain (Pain Scale 4-6) 01/20/19 14:45 01/27/19 14:44 Hydromorphone HCl (Dilaudid) 2 mg Q4H PRN IVP Severe Pain (Pain Scale 7-10) 01/20/19 14:45 01/27/19 14:44 Ondansetron HCl (Zofran) 4 mg Q6H PRN IVP Nausea & Vomiting 01/20/19 14:45 02/19/19 14:44 Pantoprazole (Protonix) 40 mg DAILY IV 01/21/19 09:00 02/20/19 08:59 Piperacillin Sod/ Tazobactam Sod 3.375 gm/Dextrose 100 ml @ 25 mls/hr EVERY 8 HOURS IVPB 01/20/19 22:00 01/25/19 21:59 Sodium Chloride 1,000 ml @ 150 mls/hr Q6H40M IVLG 01/20/19 15:00 02/19/19 14:59 Vancomycin HCl (Vanco rx to dose) 1 ea DAILY PRN MISC Per rx protocol 01/20/19 16:15 02/19/19 16:14 Vancomycin HCl 1 gm/Dextrose 275 ml @ 183.708 mls/hr ONCE ONCE IVPB 01/20/19 15:45 01/20/19 17:14 Vancomycin HCl 1 gm/Dextrose 275 ml @ 183.708 mls/hr Q12HR IVPB 01/20/19 21:00 01/25/19 20:59 Bonny Rincon MD Jan 20, 2019 16:22
[2019-01-20] MEDS ORDERED: Vancomycin 1gm vial IVPB ONE (17:16)
[2019-01-20 17:27] VITALS: BP 112/75
--- NOTE | 2019-01-20 17:35 | NUR ---
ED Nurse Note: PT TRANSFERRED TO TELEMETRY UNIT VIA GURNEY WITH NO BELONGINGS. PT STABLE.
[2019-01-20] MEDS ORDERED: HydrALAZINE 25mg tab ORAL PRN (17:45)
[2019-01-20 18:01] VITALS: BP 115/65
--- NOTE | 2019-01-20 18:01 | NUR ---
NURSE NOTES: Patient came from ER via gurney, On room air, No acute distress/SOB noted. Non verbal, Bilateral upper and lower extremities are contracted. quality assurance monitor body placed, reading sinus rhythm. Vital signs are within normal limits. No belonging. Manriquez draining well to gravity, bloody urine in Manriquez bag. Skin intact, placed Optifoam on bony prominences. IV site patent, Vancomycin running at the moment from ER. Bed in low position and locked, Call light within reach, will continue to monitor.
--- NOTE | 2019-01-20 19:50 | NUR ---
HAND-OFF: Report given to Juvenal/RN, Patient is awake, lying semi-esteves's, in stable condition. Endorsed plan of care.
--- NOTE | 2019-01-20 19:55 | NUR ---
NURSE NOTES: Received report from Andrew Moore RN. Patient tin bed AAO X1 with no complaints of acute pain or discomfort at this time. Kept clean, dry, and comfortable in bed. Patient is bedbound and is incontinent X2, changed PRN when soiled. IV line intact and patent with prescribed fluids running as ordered. On continuous cardiac monitoring per protocol. FC inserted in ED for I&O, tubing patent, intact and draining with reddish tinged urine, MD aware. Safety precaution in place; siderails X3 up, call light within reach, bed in lowest position, brakes and alarm on at all times. Needs and wants anticipated and attended. Will continue plan of care and monitor for any changes noted.
--- NOTE | 2019-01-20 19:59 | NUR ---
NURSE NOTES: Observed patient with FC for I&O per MD. Noted reddish tinged urine. MD aware, will continue to monitor.
[2019-01-20 20:00] VITALS: BP 103/62
[2019-01-20] MEDS ORDERED: Heparin 5000 units/ml inj SUBQ SCH (21:00)
[2019-01-21] VITALS: BP 95/53
--- NOTE | 2019-01-21 01:45 | Consultation ---
DATE OF CONSULTATION: 01/20/2019 INFECTIOUS DISEASE CONSULTATION CONSULTING PHYSICIAN: Bonny Rincon M.D. ATTENDING PHYSICIAN: Darion Hyatt M.D. REFERRING PHYSICIAN: Dr. Patterson. REASON FOR CONSULTATION: Possible sepsis, elevated white count, urinary tract infection, altered mental status. CHIEF COMPLAINT: The patient's chief complaint coming in to the hospital is sepsis and elevated white count. HISTORY OF PRESENT ILLNESS: This is a 73-year-old male, who I saw in the emergency room at [facility] who in discussion with the emergency room doctor had a white count over 20,000 at the [facility] and was admitted for possible sepsis and elevated white count. The patient is not a very good historian. He is mostly nonverbal. He has a Manriquez with hematuria and looks like he has urinary tract infection. Most likely, the patient has possible sepsis and complicated urinary tract infection. Infectious Disease consultation is requested. Initial chest x-ray is negative. The patient empirically is started on vancomycin and Zosyn for possible sepsis, urinary tract infection, leukocytosis. MAR was noted. Orders were noted. Notes and records were reviewed. The patient was discussed with Dr. Patterson. REVIEW OF SYSTEMS: CONSTITUTIONAL: He has generalized fatigue and weakness. He opens his eyes. Nonverbal. He has no fever or pressors. HEAD AND NECK: Could not assess really. CARDIAC: No pressors. GASTROINTESTINAL: No nausea, vomiting, or diarrhea. GENITOURINARY: He has a Manriquez. He has hematuria in the Manriquez. PULMONARY: No significant congestion or shortness of breath. Mild secretions. SKIN: No obvious maculopapular rash. EXTREMITY: Could not assess. NEUROLOGIC: No seizures. He opens eyes. Nonverbal. Review of systems is otherwise limited in this patient. PAST MEDICAL HISTORY: The patient has a past medical history of the following. He has a past medical history of hypertension. He has a history of dysphagia, altered mental status, lack of coordination, and hypokalemia. He has a history of dementia, dysphagia, weakness, and aspiration risk. No history of diabetes or cardiac disease mentioned. No history of cancer mentioned. He also is anemic. ALLERGIES: No known drug allergies. No antibiotic allergies. SOCIAL HISTORY: Negative for smoking, alcohol, or drug abuse. FAMILY HISTORY: Noncontributory. Negative for exposure to tuberculosis or cancer. MEDICATIONS: Upon reviewing the MAR, he is on the following medications. He is on pantoprazole, Zosyn, and vancomycin. He is on heparin. He is on albuterol. He is on acetaminophen and hydromorphone. He is on Zofran. He is on IV fluids. Outside medications were noted and reconciliated. PHYSICAL EXAMINATION: VITAL SIGNS: Temperature is 98.4, pulse 80, respiratory rate 16, blood pressure 108/70, and saturating 99% on room air. GENERAL: The patient is alert and nonverbal. HEAD AND NECK: Oral exam, no thrush. Eye exam, no icterus. Neck is supple. No JVD. Normocephalic. HEART: Regular. No gallop or murmur. ABDOMEN: Soft. Positive bowel sounds. Nontender. LUNGS: Clear bilaterally. No rhonchi or rales. SKIN: No rash. MUSCULOSKELETAL: No effusion. Could not assess septic arthritis. Lower extremity exam, without cellulitis. PERIPHERAL VASCULAR: No gangrene. GENITOURINARY: He has a Manriquez. He has hematuria. He also has cloudy urine. LINE SITES: Without phlebitis. NEUROLOGIC: Generalized weakness and responsive. Opens eyes. Nonverbal. LABORATORY AND DIAGNOSTIC DATA: Laboratory data is as follows. White count 13.1 and hemoglobin 10.4. Creatinine is 0.8. BNP is 516. Cultures are pending. Urinalysis had too many to count rbc's, 5 to 10 white blood cells, moderate bacteria, 2+ leukocyte esterase. Cultures are pending. Chest x-ray showed no acute cardiopulmonary disease noted and reviewed. ASSESSMENT AND PLAN: 1. The patient has possible sepsis, elevated white count, altered mental status. The patient likely has hematuria and could have a complicated urinary tract infection with sepsis and elevated white count. At this time, we will continue Zosyn and vancomycin for sepsis and urinary tract infection. Check cultures. Vancomycin has methicillin-resistant Staphylococcus aureus coverage and Zosyn has gram-negative coverage. Continue vancomycin and Zosyn pending workup and cultures for sepsis and urinary tract infection. 2. The patient has anemia. 3. Hypertension. Blood pressure treatment per Dr. Patterson. 4. Dementia. 5. Dysphagia. 6. Aspiration risk. 7. Check followup chest x-ray. 8. Altered mental status. 9. Weakness. 10. No history of diabetes or cancer or cardiac disease. 11. No known drug allergies. 12. Social history is negative. 13. Family history is noncontributory. 14. MAR was noted. 15. Case was discussed with RN. 16. Case was discussed with Dr. Patterson. 17. Skin care protocol. Bonny Rincon M.D. DR: DEISY JOB#: [id number] CC:
--- NOTE | 2019-01-21 02:50 | NUR ---
NURSE NOTES: Patient in bed asleep with no S/S of distress. Will continue to monitor.
[2019-01-21 04:00] VITALS: BP 128/74
[2019-01-21] MEDS: Vancomycin 1gm in D5W 275ml IVPB SCH ×2 (04:51→19:35)
[2019-01-21 04:55] LABS: ANION GAP 11 mmol/L (5-15); BLOOD UREA NITROGEN 20 mg/dL (7-18); CALCIUM 9.1 MG/DL (8.5-10.1); CARBON DIOXIDE 24 MMOL/L (21-32); CHLORIDE 104 MMOL/L (98-107); CREATININE 0.9 MG/DL (0.55-1.30); POTASSIUM 3.2 MMOL/L (3.5-5.1); SODIUM 139 MMOL/L (136-145)
[2019-01-21 04:58] LABS: BASOPHILS % (AUTO) 0.7 % (0.0-2.0); EOSINOPHILS % (AUTO) 0.9 % (0.0-3.0); HEMOGLOBIN 8.7 G/DL (14.2-18.0); LYMPHOCYTES % (AUTO) 12.6 % (20.0-45.0); MEAN CORPUSCULAR VOLUME 89 FL (80-99); MONOCYTES % (AUTO) 7.1 % (1.0-10.0); NEUTROPHILS % (AUTO) 78.8 % (45.0-75.0); PLATELET COUNT 173 K/UL (150-450); RED BLOOD COUNT 2.91 M/UL (4.70-6.10); RED CELL DISTRIBUTION WIDTH 13.9 % (11.6-14.8); WHITE BLOOD COUNT 9.7 K/UL (4.8-10.8)
[2019-01-21 05:00] LABS: ALANINE AMINOTRANSFERASE 27 U/L (12-78); ALBUMIN 2.9 G/DL (3.4-5.0); ALBUMIN/GLOBULIN RATIO 0.7 (1.0-2.7); ALKALINE PHOSPHATASE 74 U/L (46-116); ASPARTATE AMINO TRANSFERASE 29 U/L (15-37); BILIRUBIN,TOTAL 0.5 MG/DL (0.2-1.0)
--- NOTE | 2019-01-21 06:10 | NUR ---
NURSE NOTES: Spoke with MD Leonardo. regarding current Lab results. K 3.2, hgb 8.7. NNO at this time, will continue to monitor.
--- NOTE | 2019-01-21 06:54 | CDS Physician Query ---
Clarification is required for compliance, coding accuracy, and to reflect severity of illness for this patient Dear Dr. Bonny Rincon M.D. Date: 01/21/2019 Teaching Supervisor/CDS Name: Lan Dang This is a 73-year-old male, who I saw in the emergency room at [facility] who in discussion with the emergency room doctor had a white count over 20,000 at the [facility] and was admitted for possible sepsis and elevated white count. The patient is not a very good historian. He is mostly nonverbal. He has a Manriquez with hematuria and looks like he has urinary tract infection. Most likely, the patient has possible sepsis and complicated urinary tract infection. "Altered Mental Status" documented in Consultation notes Please indicate the nature and chronicity of the condition below: [] Metabolic Encephalopathy [] Toxic Encephalopathy [] Toxic - Metabolic Encephalopathy [] Encephalopathy, Other sepsis [] Dementia with Delirium [] Hypoxic encephalopathy [] Posterior reversible encephalopathy syndrome [] Other: [] Not Applicable Present on Admission: [] Yes [] No [] Clinically Undetermined Physician signature Date Please also document in your Progress Notes and/or Discharge Summary and indicate if the condition was present on admission. MTDD
--- NOTE | 2019-01-21 07:33 | NUR ---
HAND-OFF: Report given to Junior Joseph RN. Patient in bed with no S/S of distress noted. Endorsed plan of care.
--- NOTE | 2019-01-21 07:47 | NUR ---
NURSE NOTES: Pt in room, in low position, call light at bedside, pt is very contracted, had a bowel movement this morning formed, IV sites patent and asymptomatic and running fluids, PEG in place, skin intact, Pt Ox1-2, history of CVA with lower body contractions, pt has no wounds at this time as 2 Rn's checked this morning during shift change, pt was cleaned and repositioned this morning, pt denies pain, no s/s of distress or sob noted.
[2019-01-21 08:00] VITALS: BP 154/92
--- NOTE | 2019-01-21 08:04 | General Progress Note ---
Assessment/Plan Problem List: (1) UTI (urinary tract infection) ICD Codes: N39.0 - Urinary tract infection, site not specified SNOMED: 97333041 (2) Sepsis ICD Codes: A41.9 - Sepsis, unspecified organism SNOMED: 37844528 (3) Decubitus skin ulcer ICD Codes: L89.90 - Pressure ulcer of unspecified site, unspecified stage SNOMED: 543652943 (4) Hematuria ICD Codes: R31.9 - Hematuria, unspecified SNOMED: 01325105 Status: stable Assessment/Plan: Cliff Saldana is a 73 yo man with PMH of advanced dementia (bedbound, nonverbal, PEG dependent at baseline), dysphagia s/p PEG, HTN, depression, anemia of chronic disease, depression, and bilateral pressure ulcers in heels who presented from rehab facility [facility] for leukocytosis 21.7 and fever of 102 and hematuria #?possible sepsis, ? UTI, hematuria -IV Zosyn and Vancomycin -IV fluids -follow up cultures -ID: Dr. Torres -Urology consult for hematuria #Advance dementia- bed bound, PEG dependent #Depression #Anemia of chronic disease- stable #Acute blood loss anemia- hematuria -moniotr H/H, transfuse to keep hgb>7 -Urology consult #Bilateral pressure ulcers heels wound consult #Hx of HTN -resume Lisinopril, hydralazine prn for sbp > 160 vte ppx: heparin- however hold due to hematuria, place scd boots Gi ppx: ppi code: full I spent 40 minutes during this encounter, >50 spent on counselling and care coordination. case d/w rn, d/w ID time of this note may not reflect time of encounter. Subjective Date patient seen: Jan 21, 2019 ROS Limited/Unobtainable: Yes Allergies: Coded Allergies: No Known Allergies (Unverified , 08/20/18) Subjective non verbal at baseline, awake, clammy and sweaty. Drop in H/H noted. duggan in situ, bloody urine Objective Last 24 Hour Vital Signs Date Time Temp Pulse Resp B/P (MAP) Pulse Ox O2 Delivery O2 Flow Rate FiO2 01/21/19 04:00 89 01/21/19 04:00 98.4 84 16 128/74 (92) 97 01/21/19 00:00 98.5 73 16 95/53 (67) 99 01/21/19 00:00 75 01/20/19 20:29 Room Air 01/20/19 20:00 72 01/20/19 20:00 98.2 75 16 103/62 (76) 99 01/20/19 18:01 97.4 78 18 115/65 (82) 96 01/20/19 17:35 98.5 82 20 112/75 97 Room Air 01/20/19 17:27 98.5 82 20 112/75 97 Room Air 01/20/19 15:44 98.4 80 16 108/70 99 Room Air 01/20/19 13:35 97.9 75 15 90/52 97 Room Air 01/20/19 13:35 75 15 Room Air 01/20/19 13:25 97.9 75 18 90/52 (65) 94 Room Air Intake and Output 01/20/19 01/21/19 18:59 06:59 Intake Total 1110 ml Output Total 1000 ml Balance 1110 ml -1000 ml Intake IV Total 1110 ml Output Urine Total 1000 ml # Voids 1 # Bowel Movements 2 Laboratory Tests 01/20/19 14:30: White Blood Count 13.1H, Red Blood Count 3.41L, Hemoglobin 10.4L, Hematocrit 31.3L, Mean Corpuscular Volume 92, Mean Corpuscular Hemoglobin 30.4, Mean Corpuscular Hemoglobin Concent 33.1, Red Cell Distribution Width 14.2, Platelet Count 161, Mean Platelet Volume 7.2, Neutrophils (%) (Auto) 81.3H, Lymphocytes ( %) (Auto) 12.0L, Monocytes (%) (Auto) 5.7, Eosinophils (%) (Auto) 0.3, Basophils (%) (Auto) 0.8, Prothrombin Time 11.4, Prothromb Time International Ratio 1.1, Activated Partial Thromboplast Time 30, Sodium Level 138, Potassium Level 3.9, Chloride Level 101, Carbon Dioxide Level 24, Anion Gap 13, Blood Urea Nitrogen 33H, Creatinine 0.8, Estimat Glomerular Filtration Rate , Glucose Level 97, Lactic Acid Level 1.70, Calcium Level 9.6, Magnesium Level 2.1, Total Bilirubin 0.5, Aspartate Amino Transf (AST/SGOT) 35, Alanine Aminotransferase ( ALT/SGPT) 34, Alkaline Phosphatase 90, Total Creatine Kinase 256, Troponin I 0.000, Pro-B-Type Natriuretic Peptide 516H, Total Protein 7.3, Albumin 3.4, Globulin 3.9, Albumin/Globulin Ratio 0.9L, Lipase 104 01/20/19 14:45: Urine Color Red, Urine Appearance Very cloudy, Urine pH 8, Urine Specific [place] 1.030, Urine Protein 3+H, Urine Glucose (UA) Negative, Urine Ketones Negative, Urine Blood 5+H, Urine Nitrite Negative, Urine Bilirubin Negative, Urine Urobilinogen 1H, Urine Leukocyte Esterase 2+H, Urine RBC TntcH, Urine WBC 5-10H, Urine Squamous Epithelial Cells Occasional, Urine Bacteria ModerateH 01/21/19 04:39: White Blood Count 9.7, Red Blood Count 2.91L, Hemoglobin 8.7L, Hematocrit 26.0L , Mean Corpuscular Volume 89, Mean Corpuscular Hemoglobin 30.0, Mean Corpuscular Hemoglobin Concent 33.6, Red Cell Distribution Width 13.9, Platelet Count 173, Mean Platelet Volume 7.5, Neutrophils (%) (Auto) 78.8H, Lymphocytes ( %) (Auto) 12.6L, Monocytes (%) (Auto) 7.1, Eosinophils (%) (Auto) 0.9, Basophils (%) (Auto) 0.7, Sodium Level 139, Potassium Level 3.2L, Chloride Level 104, Carbon Dioxide Level 24, Anion Gap 11, Blood Urea Nitrogen 20H, Creatinine 0.9, Estimat Glomerular Filtration Rate , Glucose Level 112H, Calcium Level 9.1, Total Bilirubin 0.5, Aspartate Amino Transf (AST/SGOT) 29, Alanine Aminotransferase (ALT/SGPT) 27, Alkaline Phosphatase 74, Total Protein 6.9, Albumin 2.9L, Globulin 4.0, Albumin/Globulin Ratio 0.7L Height (Feet): 5 Height (Inches): 4.00 Weight (Pounds): 150 Objective General Appearance: no apparent distress, alert, other - NAD. lying in bed, contracted in all four extremities.awake, flat affect, does not follow commands Lines, tubes and drains: peripheral HEENT: normocephalic, atraumatic, other - dry mucous membranes Neck: supple Respiratory/Chest: other - Coarse breath sounds bilaterally, no wheezing appreciated Cardiovascular/Chest: normal peripheral pulses, normal rate, regular rhythm Abdomen: normal bowel sounds, non tender, soft Extremities: non-tender, no edema, other - LE wounds dressing c/d/i Neurologic: other - Nonverbal, contracted in all 4 extremities (baseline), flat affect Musculoskeletal: atrophy Kameron Patterson M.D. Jan 21, 2019 08:04
[2019-01-21] MEDS ORDERED: Lisinopril 20mg tab ORAL SCH (09:00)
[2019-01-21] MEDS: Vitamin B-12 500mcg tab GT SCH (09:21)
[2019-01-21] MEDS: Pantoprazole Inj IV SCH (09:21)
[2019-01-21] MEDS: Thiamine 100mg tab ORAL SCH (09:21)
[2019-01-21 12:00] VITALS: BP 131/57
--- NOTE | 2019-01-21 14:25 | NUR ---
CASE MANAGEMENT:INITIAL REVIEW 73 YR OLD [facility] CC: FEVER SI: UTI; SEPSIS; FAILURE TO THRIVE; DEHYDRATION 97.9 75 18 90/52 94% ON RA WBC 13.1 H/H 10.4/31.3; BUN 33; BNP 516 IS: IVF NS BOLUS X2 IV VANCOMYCIN X1 IV ZOSYN X1 PLAN: WORK UP FOR UTI AND SEPSIS REPEAT CXR
--- NOTE | 2019-01-21 14:29 | Diagnostic Imaging Report ---
Indication: Dyspnea Comparison: 01/20/2019 A single view chest radiograph was obtained. Findings: Cardiomediastinal appearance is within normal limits for age. The lungs are clear. Pulmonary vascularity is appropriate. The diaphragmatic contour is smooth and costophrenic angles are sharp. No pleural effusions are identified. The bones are osteopenic. Impression: No acute findings
--- NOTE | 2019-01-21 15:13 | NUR ---
RD ASSESSMENT & RECOMMENDATIONS SEE CARE ACTIVITY FOR COMPLETE ASSESSMENT DAILY ESTIMATED NEEDS: Needs based on Wt loss, wasting/ 48.2kg 30-35 kcals/kg 0559-0894 total kcals 1-1.5 g protein/kg 48-72 g total protein 25-30 mL/kg 0701-9805 total fluid mLs NUTRITION DIAGNOSIS: * Swallowing difficulty R/T dysphagia as evidenced by pt is PEG dep. * Increased kcal/prot intake needs R/T wt loss and wasting as evidenced by pt admitted w/ possible severe wt loss of 20lbs/15.8% in 5 months, pt @ 85% IBW. CURRENT TF:NPO ENTERAL NUTRITION RECOMMENDATIONS: Glucerna 1.2 @ 55ml/hr x 24 hrs to provide 1320ml, 1584kcal, 79g prot, 1063ml free water * As medically appropriate, initiate TF (Pt on Glucerna 1.2 [employer]) * Initiate Glucerna 1.2 @ 20ml/hr x 6 hrs * Advance 10ml q 4-6 hrs as tolerated to goal rate * HOB over 30 degrees/ water flush per MD ADDITIONAL RECOMMENDATIONS: * Calibrated bedscale wt -> bedscale wt of 106lbs vs EMR wt of 150lbs -> rec daily wt monitoring given possible recent wt loss * Check F/up A1C-> A1C 6.3 (09/10/18) * Monitor lytes w/ TF, replete as needed .
[2019-01-21 16:00] VITALS: BP 144/86
--- NOTE | 2019-01-21 16:22 | NUR ---
NURSE NOTES: Per Md Pattreson, started G-Tube feed at 35hr will progress to 65 by the end of shift. Feed is Glucerna 1.2
--- NOTE | 2019-01-21 16:52 | NUR ---
NURSE NOTES:WOUND CARE NOTES:Pt presented on admission with contractures. Pressure injuries to R and L foot ,non-blanching erythema sacrum. Lateral L heel erythematous and non-blanching. Base of wound is fluctuant. Periwound is also non-blanching and soft.(L)2.5cm x (W)3cm. Non-blanching erythema without fluctuance R hallux.(L)1.9cm x (W)2cm. DTPI noted to distal/lateral R foot including Lateral R metatarsal. Reabsorbing blood blister noted with erythematous margins. (L)4.8cm x (W)3.5cm. Tx.Plan: Apply Moisture Barrier Paste to sacrum. Cover with Optifoam drsg. Change every 3 days and prn. Apply Cavilon Skin Barrier to bony prominences both shoulders, both trochanteric and malleoli both feet. Cover each site with Optifoam drsgs. Change very 7 days and prn. Swab Lateral R foot with Betadine. Cover with Optifoam drsg. Change every 3 days and prn. Apply Cavilon to both heels. Cover each heel with Optifoam drsg. Change every 7 days and prn. APM/RAVINDER Mattress overlay. Reposition at least every 2hours or as tolerated. Place pillow between knees. Off-load heels with pillow.
--- NOTE | 2019-01-21 18:57 | NUR ---
HAND-OFF: Report given to Juwan Catalan.
--- NOTE | 2019-01-21 19:59 | NUR ---
NURSE NOTES: Received pt from ANTOINETTE Anderson. Pt is awake in bed in no acute distress. Bed in room, in low position, call light at bedside, pt is very contracted. IV sites patent and asymptomatic and running fluids, PEG in place increased to 45cc/hr and will increase to goal accordingly, skin intact, Pt Ox1-2, history of CVA with lower body contractions. Pt repositioned at shift change with outgoing nurse, pt denies pain, no s/s of distress or sob noted. Will continue with plan of care.
[2019-01-21 20:00] VITALS: BP 116/67
--- NOTE | 2019-01-21 22:16 | Consultation ---
History of Present Illness General Date patient seen: Jan 21, 2019 Reason for Hospitalization: Fever Present Illness HPI 73 year old male with PMH of advanced dementia, bedbound, nonverbal, PEG dependent at baseline, dysphagia s/p PEG, HTN, depression, anemia of chronic disease , depression, and bilateral pressure ulcers in heels who presented from rehab facility [facility] for leukocytosis 21.7 and fever of 102. Admitted for care and management. on admission afebrile, wbc 13k. UTI. Surgery called to evaluate and assist with care. patient seen, chart reviewed, patient examined. non verbal at baseline. on tube feeds tolerating Allergies: Coded Allergies: No Known Allergies (Unverified , 08/20/18) Medication History Scheduled Cyanocobalamin (Vitamin B-12)* (Vitamin B-12*), 1,000 MCG GT DAILY, (Reported) Ergocalciferol (Vitamin D2)* (Vitamin D*), 50,000 UNIT GT ONCE A WEEK, (Reported ) Lisinopril* (Zestril*), 10 MG ORAL DAILY Pantoprazole Sodium (Protonix), 40 MG GT DAILY Cgzxfyjswzky-Ehww-Kyulftnh,Iso (Zosyn 3.375 Gm Pre Mix-Bag), 3.375 GM IVPB EVERY 8 HOURS Thiamine Hcl* (Vitamin B-1*), 100 MG ORAL DAILY, (Reported) Vancomycin In Dextrose,Iso-Osm (Vancomycin 750 Mg/150 Ml Bag), 750 MG IV Q12HR Scheduled PRN Acetaminophen (Acetaminophen), 650 MG RC Q6HR PRN for FEVER, (Reported) Hydralazine Hcl* (Hydralazine Hcl*), 25 MG ORAL Q6H PRN Ondansetron* (Zofran*), 4 MG GT Q6H PRN for Nausea & Vomiting, (Reported) Tramadol Hcl* (Ultram*), 50 MG ORAL DAILY PRN for For Pain, (Reported) Patient History Limited by: medical condition History Provided By: Medical Record, PMD Healthcare decision maker N Resuscitation status Full Code Advanced Directive on File Past Medical/Surgical History Past Medical/Surgical History: (1) Rhabdomyolysis (2) Encounter for PEG (percutaneous endoscopic gastrostomy) (3) Electrolyte imbalance (4) Severe malnutrition (5) BRYANT (acute kidney injury) (6) Elevated LFTs (7) Hypertension (8) Pneumonia (9) GI bleed (10) Fecal impaction (11) Decubitus skin ulcer (12) UTI (urinary tract infection) (13) Hematuria (14) Sepsis (15) Failure to thrive syndrome, adult (16) Dehydration Review of Systems Review of Symptoms cannot obtain given medical condition Physical Exam Physical Exam General appearance: no distress, appears stated age Head: Normocephalic, without obvious abnormality, atraumatic Eyes: conjunctivae/corneas clear. PERRL, EOM's intact. Fundi benign Throat: Lips, mucosa, and tongue normal. Teeth and gums normal Neck: supple, symmetrical, trachea midline, no adenopathy, thyroid: not enlarged, symmetric, no tenderness/mass/nodules, no carotid bruit and no JVD Lungs: clear to auscultation bilaterally Heart: regular rate and rhythm, S1, S2 normal, no murmur, click, rub or gallop Abdomen: soft, non-tender. Bowel sounds normal. No masses, no organomegaly, ++ PEG Extremities: extremities with bilateral heel ulcers Pulses: 2+ and symmetric Skin: Skin color, texture, turgor normal. No rashes or lesions Neurologic: Grossly normal Last 24 Hour Vital Signs Date Time Temp Pulse Resp B/P (MAP) Pulse Ox O2 Delivery O2 Flow Rate FiO2 01/21/19 19:20 97 18 96 Room Air 01/21/19 16:00 97.0 97 18 144/86 (105) 96 01/21/19 15:36 76 01/21/19 12:00 96.6 92 20 131/57 (81) 98 01/21/19 11:42 87 01/21/19 08:30 Room Air 01/21/19 08:00 98.6 95 18 154/92 (112) 97 0 01/21/19 07:57 90 01/21/19 04:00 89 01/21/19 04:00 98.4 84 16 128/74 (92) 97 01/21/19 00:00 98.5 73 16 95/53 (67) 99 01/21/19 00:00 75 Intake and Output 01/20/19 01/21/19 19:00 07:00 Intake Total 1110 ml Output Total 1000 ml Balance 1110 ml -1000 ml IV Total 1110 ml Output Urine Total 1000 ml # Voids 1 # Bowel Movements 2 Laboratory Tests Test 01/21/19 04:39 White Blood Count 9.7 K/UL (4.8-10.8) Red Blood Count 2.91 M/UL (4.70-6.10) L Hemoglobin 8.7 G/DL (14.2-18.0) L Hematocrit 26.0 % (42.0-52.0) L Mean Corpuscular Volume 89 FL (80-99) Mean Corpuscular Hemoglobin 30.0 PG (27.0-31.0) Mean Corpuscular Hemoglobin Concent 33.6 G/DL (32.0-36.0) Red Cell Distribution Width 13.9 % (11.6-14.8) Platelet Count 173 K/UL (150-450) Mean Platelet Volume 7.5 FL (6.5-10.1) Neutrophils (%) (Auto) 78.8 % (45.0-75.0) H Lymphocytes (%) (Auto) 12.6 % (20.0-45.0) L Monocytes (%) (Auto) 7.1 % (1.0-10.0) Eosinophils (%) (Auto) 0.9 % (0.0-3.0) Basophils (%) (Auto) 0.7 % (0.0-2.0) Sodium Level 139 MMOL/L (136-145) Potassium Level 3.2 MMOL/L (3.5-5.1) L Chloride Level 104 MMOL/L (98-107) Carbon Dioxide Level 24 MMOL/L (21-32) Anion Gap 11 mmol/L (5-15) Blood Urea Nitrogen 20 mg/dL (7-18) H Creatinine 0.9 MG/DL (0.55-1.30) Estimat Glomerular Filtration Rate mL/min (>60) Glucose Level 112 MG/DL (74-106) H Calcium Level 9.1 MG/DL (8.5-10.1) Total Bilirubin 0.5 MG/DL (0.2-1.0) Aspartate Amino Transf (AST/SGOT) 29 U/L (15-37) Alanine Aminotransferase (ALT/SGPT) 27 U/L (12-78) Alkaline Phosphatase 74 U/L (46-116) Total Protein 6.9 G/DL (6.4-8.2) Albumin 2.9 G/DL (3.4-5.0) L Globulin 4.0 g/dL Albumin/Globulin Ratio 0.7 (1.0-2.7) L Height (Feet): 5 Height (Inches): 4.00 Weight (Pounds): 150 Medications Current Medications Medications (Trade) Dose Ordered Sig/Altagracia Route PRN Reason Start Time Stop Time Status Last Admin Dose Admin Acetaminophen (Tylenol) 650 mg Q4H PRN ORAL fever (temp>100.5F) 01/20/19 14:45 02/19/19 14:44 Albuterol/ Ipratropium (Albuterol/ Ipratropium) 3 ml Q4H PRN HHN Shortness of Breath 01/20/19 14:45 01/25/19 14:44 Cyanocobalamin (Vitamin B-12) 1,000 mcg DAILY GT 01/21/19 09:00 02/20/19 08:59 01/21/19 09:21 Dextrose (Dextrose 50%) 25 ml Q30M PRN IV Hypoglycemia 01/20/19 14:45 02/19/19 14:44 Dextrose (Dextrose 50%) 50 ml Q30M PRN IV Hypoglycemia 01/20/19 14:45 02/19/19 14:44 Ergocalciferol (Drisdol) 50,000 intlu ONCE A WEEK ORAL 01/24/19 09:00 02/23/19 08:59 Hydralazine HCl (Apresoline) 10 mg Q4H PRN IV sbp>160 01/21/19 11:52 02/20/19 11:51 Hydromorphone HCl (Dilaudid) 1 mg Q4H PRN IVP Moderate Pain (Pain Scale 4-6) 01/20/19 14:45 01/27/19 14:44 Hydromorphone HCl (Dilaudid) 2 mg Q4H PRN IVP Severe Pain (Pain Scale 7-10) 01/20/19 14:45 01/27/19 14:44 Lisinopril (Zestril) 10 mg DAILY ORAL 01/22/19 09:00 02/21/19 08:59 Ondansetron HCl (Zofran) 4 mg Q6H PRN IVP Nausea & Vomiting 01/20/19 14:45 02/19/19 14:44 Pantoprazole (Protonix) 40 mg DAILY IV 01/21/19 09:00 02/20/19 08:59 01/21/19 09:21 Piperacillin Sod/ Tazobactam Sod 3.375 gm/Dextrose 100 ml @ 25 mls/hr EVERY 8 HOURS IVPB 01/20/19 22:00 01/25/19 21:59 01/21/19 21:56 Sodium Chloride 1,000 ml @ 150 mls/hr Q6H40M IVLG 01/20/19 15:00 02/19/19 14:59 01/21/19 13:27 Thiamine HCl (Vitamin B1) 100 mg DAILY ORAL 01/21/19 09:00 02/20/19 08:59 01/21/19 09:21 Vancomycin HCl (Vanco rx to dose) 1 ea DAILY PRN MISC Per rx protocol 01/20/19 16:15 02/19/19 16:14 Vancomycin HCl 1 gm/Dextrose 275 ml @ 183.708 mls/hr Q12HR@0500,1700 IVPB 01/21/19 05:00 01/26/19 04:59 01/21/19 19:35 Assessment/Plan Problem List: (1) Decubitus skin ulcer Assessment & Plan: Pt presented on admission with contractures. Pressure injuries to R and L foot ,non-blanching erythema sacrum. Lateral L heel erythematous and non-blanching. Base of wound is fluctuant. Periwound is also non-blanching and soft.(L)2.5cm x (W)3cm. Non-blanching erythema without fluctuance R hallux.(L)1.9cm x (W)2cm. DTPI noted to distal/lateral R foot including Lateral R metatarsal. Reabsorbing blood blister noted with erythematous margins. (L)4.8cm x (W)3.5cm. Tx.Plan: Apply Moisture Barrier Paste to sacrum. Cover with Optifoam drsg. Change every 3 days and prn. Apply Cavilon Skin Barrier to bony prominences both shoulders, both trochanteric and malleoli both feet. Cover each site with Optifoam drsgs. Change very 7 days and prn. Swab Lateral R foot with Betadine. Cover with Optifoam drsg. Change every 3 days and prn. Apply Cavilon to both heels. Cover each heel with Optifoam drsg. Change every 7 days and prn. APM/RAVINDER Mattress overlay. Reposition at least every 2hours or as tolerated. Place pillow between knees. Off-load heels with pillow. ICD Codes: L89.90 - Pressure ulcer of unspecified site, unspecified stage SNOMED: 173885935 (2) Sepsis Assessment & Plan: Cont tube feeds IV abx as per ID wound care as above trend labs will monitor and follow with recs sepsis likely from UTI and not wounds ICD Codes: A41.9 - Sepsis, unspecified organism SNOMED: 95593458 Qualifiers: Qualified Codes: A41.9 - Sepsis, unspecified organism (3) Failure to thrive syndrome, adult Assessment & Plan: DAILY ESTIMATED NEEDS: Needs based on Wt loss, wasting/ 48.2kg 30-35 kcals/kg 0995-8967 total kcals 1-1.5 g protein/kg 48-72 g total protein 25-30 mL/kg 0547-9864 total fluid mLs NUTRITION DIAGNOSIS: * Swallowing difficulty R/T dysphagia as evidenced by pt is PEG dep. * Increased kcal/prot intake needs R/T wt loss and wasting as evidenced by pt admitted w/ possible severe wt loss of 20lbs/15.8% in 5 months, pt @ 85% IBW. CURRENT TF:NPO ENTERAL NUTRITION RECOMMENDATIONS: Glucerna 1.2 @ 55ml/hr x 24 hrs to provide 1320ml, 1584kcal, 79g prot, 1063ml free water * As medically appropriate, initiate TF (Pt on Glucerna 1.2 [employer]) * Initiate Glucerna 1.2 @ 20ml/hr x 6 hrs * Advance 10ml q 4-6 hrs as tolerated to goal rate * HOB over 30 degrees/ water flush per MD ADDITIONAL RECOMMENDATIONS: * Calibrated bedscale wt -> bedscale wt of 106lbs vs EMR wt of 150lbs -> rec daily wt monitoring given possible recent wt loss * Check F/up A1C-> A1C 6.3 (09/10/18) * Monitor lytes w/ TF, replete as needed ICD Codes: R62.7 - Failure to thrive syndrome, adult SNOMED: 634505942 Reji Guy Jan 21, 2019 22:16
[2019-01-22] VITALS: BP 120/74
[2019-01-22 04:00] VITALS: BP 122/70
[2019-01-22 04:25] LABS: HEMATOCRIT 23.7 % (42.0-52.0); HEMOGLOBIN 7.9 G/DL (14.2-18.0); MEAN CORPUSCULAR VOLUME 89 FL (80-99); PLATELET COUNT 173 K/UL (150-450); RED BLOOD COUNT 2.65 M/UL (4.70-6.10); RED CELL DISTRIBUTION WIDTH 13.6 % (11.6-14.8); WHITE BLOOD COUNT 9.4 K/UL (4.8-10.8)
[2019-01-22 04:29] LABS: ANION GAP 10 mmol/L (5-15); BLOOD UREA NITROGEN 8 mg/dL (7-18); CALCIUM 8.4 MG/DL (8.5-10.1); CARBON DIOXIDE 23 MMOL/L (21-32); CHLORIDE 107 MMOL/L (98-107); CREATININE 0.7 MG/DL (0.55-1.30); SODIUM 140 MMOL/L (136-145)
--- NOTE | 2019-01-22 04:54 | NUR ---
Called Dr. Hyatt phone number. Left a message in regard to pt potassium 3.0, magnesium 1.5, and calcium 8.4 Awaiting call back from communications intern Dr.Joshua Gabriel.
[2019-01-22] MEDS: Vancomycin 1gm in D5W 275ml IVPB SCH (05:06)
--- NOTE | 2019-01-22 07:35 | NUR ---
HAND-OFF: Report given to ANTOINETTE Merrill. Pt is restin in bed in no acute distress. Endorsed plan of care.
--- NOTE | 2019-01-22 07:35 | NUR ---
NURSE NOTES: Nurse report given by ANTOINETTE Gonzales. Patient's sleeping, no acute distress or SOB, bed low and locked, call light within reach, bed alarm is on, side rails x 2. PEG is running tube feeding at 65cc/hr, no residuals. IV is running fluid at 150ml/hr. Manriquez is draining well, clear yellow urine, no sign of hematuria noted. Will continue to monitor.
[2019-01-22 08:00] VITALS: BP 147/77
[2019-01-22] MEDS: Vitamin B-12 500mcg tab GT SCH (08:30)
[2019-01-22] MEDS: Pantoprazole Inj IV SCH (08:30)
[2019-01-22] MEDS: Lisinopril 10mg tab ORAL SCH (08:31)
[2019-01-22] MEDS: Thiamine 100mg tab ORAL SCH (08:31)
--- NOTE | 2019-01-22 09:58 | NUR ---
NURSE NOTES: Left messages to Dr. Gillespie's office and Dr. Barba regarding patient's abnormal lab results. Awaiting for response.
--- NOTE | 2019-01-22 10:05 | NUR ---
NURSE NOTES: Dr. Barba ordered KCl 40meq IV x 1times; Magnesium Sulfate 2gms IV x 1 time; give magnesium sulfate first. Orders acknowledged and carried out.
--- NOTE | 2019-01-22 10:45 | Consultation ---
DATE OF CONSULTATION: 01/22/2019 CONSULTING PHYSICIAN: Durga Savage M.D. REFERRING PHYSICIAN: Kameron Patterson M.D. REASON FOR CONSULTATION: For evaluation of hematuria. HISTORY OF PRESENT ILLNESS: This is an unfortunate 73-year-old male who is a resident of a retirement. The patient was brought to the emergency room 2 days ago because of leukocytosis, possible sepsis. He had a Manriquez catheter that was placed at the time of admission I believe some hematuria was noted. Urology evaluation requested. The patient is nonverbal. Most of the history was obtained from the chart. PAST MEDICAL HISTORY: Significant for history of hypertension, history of CVA, dementia, dysphagia, contraction, nonverbal. PAST SURGICAL HISTORY: Unknown. MEDICATIONS: Current medication list in the hospital was reviewed. He is currently on Drisdol, Zestril, Apresoline, Protonix, vitamin B2, B1, vancomycin, Zosyn, Dilaudid. ALLERGIES: No known drug allergies. SOCIAL HISTORY: Resident of a retirement. REVIEW OF SYSTEMS: Unable to obtain. FAMILY HISTORY: Unable to obtain. PHYSICAL EXAMINATION: GENERAL: An elderly male, cachectic, nonverbal, contracted. VITAL SIGNS: Temperature is 98.1, blood pressure is 147/77, pulse is 77, respirations 20. HEENT: Normocephalic. NECK: Supple. ABDOMEN: Soft. GENITOURINARY: Manriquez is in place. Appears to be a 14-Welsh. Urine is yellowish malachi now. EXTREMITIES: Extremely contracted. LABORATORY DATA: UA on admission showed moderate bacteria, too numerous to count rbc's, 5 to 10 wbc's, 3+ protein. White count on admission was 13.1, currently it is 9.4, hemoglobin 7.9, platelets are 173. BUN is 8, creatinine is 0.7. His blood cultures are negative so far. Urine culture from admission showed Gram-negative rods. Final is pending. DIAGNOSTIC IMAGING STUDIES: The patient had a CT scan of the abdomen and pelvis back in December of this year and at that time, there were mention of small renal lesions, too small to characterize, possibly cysts. There were no stones in the kidney or hydronephrosis. There were some calcifications seen in the bladder. There was also some bladder wall thickening the prominence of the prostate. IMPRESSION: 1. Gross hematuria, which is improved. 2. Urinary retention. 3. BPH. 4. Probable neurogenic bladder. 5. UTI. 6. Proteinuria. 7. Renal cyst. 8. Bladder calculi. 9. Possible cystitis. PLAN AND DISCUSSION: Again, the patient did have hematuria at the time of admission, it is improved now. Urine is clear without active bleeding and I would recommend the Manriquez to be irrigated p.r.n. He did have a UTI, which may have been the cause of the hematuria. He is to continue with antibiotics as ordered. We will follow up the results of the culture and adjust accordingly. The upper tracts appear normal by recent CT. I will monitor the patient clinically. He will need to have cystoscopy at some point, if medically feasible. I will also add tamsulosin and finasteride. Possible voiding trial later. Thank you, Dr. Patterson, for asking me to see this patient in consultation. Durga Savage M.D. DR: NAHEED JOB#: [id number] CC: Theresa Carrizales M.D. ; FAX#: [phone] Reji Guy M.D.
--- NOTE | 2019-01-22 11:06 | General Progress Note ---
Assessment/Plan Status: stable Assessment/Plan: Assessment/Plan Problem List: (1) UTI (urinary tract infection) ICD Codes: N39.0 - Urinary tract infection, site not specified SNOMED: 79783699 (2) Sepsis ICD Codes: A41.9 - Sepsis, unspecified organism SNOMED: 18207516 (3) Decubitus skin ulcer ICD Codes: L89.90 - Pressure ulcer of unspecified site, unspecified stage SNOMED: 853723855 (4) Hematuria ICD Codes: R31.9 - Hematuria, unspecified SNOMED: 00368150 Status: stable Assessment/Plan: Cliff Saldana is a 73 yo man with PMH of advanced dementia (bedbound, nonverbal, PEG dependent at baseline), SNF resident at [facility], dysphagia s/p PEG, HTN, depression, anemia of chronic disease, depression, and bilateral pressure ulcers in heels who presented from rehab facility [facility] for leukocytosis 21.7 and fever of 102 and hematuria #?possible sepsis, ? UTI, hematuria now resolved. -IV Zosyn and Vancomycin -IV fluids -follow up cultures noted for negative blood cx and pending urine culture. -ID: Dr. Torres -Urology consult for hematuria appreciated. Flomax and Finasteride added. #Advance dementia- bed bound, PEG dependent #Depression #Anemia of chronic disease- stable #Acute blood loss anemia- hematuria -monitor H/H, transfuse to keep hgb>7 -Urology consult reviewed. #Bilateral pressure ulcers heels wound consult appreciated. #Hx of HTN - Lisinopril, hydralazine prn for sbp > 160 vte ppx: heparin- however hold due to hematuria, place scd boots Gi ppx: ppi code: full I spent 46 minutes during this encounter, >50 spent on counselling and care coordination. case d/w rn, d/w ID time of this note may not reflect time of encounter. Subjective Date patient seen: Jan 22, 2019 Time patient seen: 10:00 ROS Limited/Unobtainable: Yes Allergies: Coded Allergies: No Known Allergies (Unverified , 08/20/18) All Systems: reviewed and negative except above Objective Last 24 Hour Vital Signs Date Time Temp Pulse Resp B/P (MAP) Pulse Ox O2 Delivery O2 Flow Rate FiO2 01/22/19 09:00 Room Air 01/22/19 08:31 147/77 01/22/19 08:00 73 01/22/19 08:00 98.1 77 20 147/77 (100) 99 01/22/19 07:37 96 18 98 Room Air 01/22/19 04:00 76 01/22/19 04:00 98.6 76 20 122/70 (87) 99 01/22/19 00:00 97.7 82 20 120/74 (89) 98 01/22/19 00:00 82 01/21/19 21:00 Room Air 01/21/19 20:00 90 01/21/19 20:00 97.7 90 18 116/67 (83) 96 01/21/19 19:20 97 18 96 Room Air 01/21/19 16:00 97.0 97 18 144/86 (105) 96 01/21/19 15:36 76 01/21/19 12:00 96.6 92 20 131/57 (81) 98 01/21/19 11:42 87 Intake and Output 01/21/19 01/22/19 19:00 07:00 Intake Total 280 ml 875 ml Output Total 600 ml Balance -320 ml 875 ml Intake Free Water 120 ml 300 ml Tube Feeding 160 ml 575 ml Output Urine Total 600 ml Laboratory Tests 01/22/19 04:06: White Blood Count 9.4, Red Blood Count 2.65L, Hemoglobin 7.9L, Hematocrit 23.7L , Mean Corpuscular Volume 89, Mean Corpuscular Hemoglobin 29.7, Mean Corpuscular Hemoglobin Concent 33.2, Red Cell Distribution Width 13.6, Platelet Count 173, Mean Platelet Volume 6.8, Neutrophils (%) (Auto) , Lymphocytes (%) ( Auto) , Monocytes (%) (Auto) , Eosinophils (%) (Auto) , Basophils (%) (Auto) , Differential Total Cells Counted 100, Neutrophils % (Manual) 77H, Lymphocytes % (Manual) 15L, Monocytes % (Manual) 6, Eosinophils % (Manual) 1, Basophils % ( Manual) 1, Band Neutrophils 0, Platelet Estimate Adequate, Platelet Morphology Normal, Hypochromasia 3+, Anisocytosis 1+, Sodium Level 140, Potassium Level 3.0L, Chloride Level 107, Carbon Dioxide Level 23, Anion Gap 10, Blood Urea Nitrogen 8, Creatinine 0.7, Estimat Glomerular Filtration Rate , Glucose Level 125H, Calcium Level 8.4L, Magnesium Level 1.5L, Vancomycin Level Trough 16.5H Height (Feet): 5 Height (Inches): 4.00 Weight (Pounds): 150 EENT: PERRL/EOMI Neck: non-tender Cardiovascular: normal peripheral pulses, normal rate Respiratory/Chest: chest wall non-tender, lungs clear Abdomen: normal bowel sounds, other - peg Genitourinary/Rectal: other - duggan Extremities: other - bilateral leg contractures Edema: trace edema Neurologic: depressed affect Fan Barba MD Jan 22, 2019 11:06
[2019-01-22 12:00] VITALS: BP 130/70
--- NOTE | 2019-01-22 14:26 | Surgery Progress Note ---
Surgery Progress Note Subjective Additional Comments no acute events exam stable tolerating tube feeds dressings being changed Objective Last 24 Hour Vital Signs Date Time Temp Pulse Resp B/P (MAP) Pulse Ox O2 Delivery O2 Flow Rate FiO2 01/22/19 12:00 98.1 75 20 130/70 (90) 99 01/22/19 09:00 Room Air 01/22/19 08:31 147/77 01/22/19 08:00 73 01/22/19 08:00 98.1 77 20 147/77 (100) 99 01/22/19 07:37 96 18 98 Room Air 01/22/19 04:00 76 01/22/19 04:00 98.6 76 20 122/70 (87) 99 01/22/19 00:00 97.7 82 20 120/74 (89) 98 01/22/19 00:00 82 01/21/19 21:00 Room Air 01/21/19 20:00 90 01/21/19 20:00 97.7 90 18 116/67 (83) 96 01/21/19 19:20 97 18 96 Room Air 01/21/19 16:00 97.0 97 18 144/86 (105) 96 01/21/19 15:36 76 I&O Intake and Output 01/21/19 01/22/19 18:59 06:59 Intake Total 235 ml 920 ml Output Total 600 ml Balance -365 ml 920 ml Intake Free Water 120 ml 300 ml Tube Feeding 115 ml 620 ml Output Urine Total 600 ml Dressing: saturated Wound: other Drains: other Cardiovascular: RSR Respiratory: decreased breath sounds Abdomen: soft, present bowel sounds, other, non-distended Extremities: no cyanosis, other Laboratory Tests Test 01/22/19 04:06 White Blood Count 9.4 K/UL (4.8-10.8) Red Blood Count 2.65 M/UL (4.70-6.10) L Hemoglobin 7.9 G/DL (14.2-18.0) L Hematocrit 23.7 % (42.0-52.0) L Mean Corpuscular Volume 89 FL (80-99) Mean Corpuscular Hemoglobin 29.7 PG (27.0-31.0) Mean Corpuscular Hemoglobin Concent 33.2 G/DL (32.0-36.0) Red Cell Distribution Width 13.6 % (11.6-14.8) Platelet Count 173 K/UL (150-450) Mean Platelet Volume 6.8 FL (6.5-10.1) Neutrophils (%) (Auto) % (45.0-75.0) Lymphocytes (%) (Auto) % (20.0-45.0) Monocytes (%) (Auto) % (1.0-10.0) Eosinophils (%) (Auto) % (0.0-3.0) Basophils (%) (Auto) % (0.0-2.0) Differential Total Cells Counted 100 Neutrophils % (Manual) 77 % (45-75) H Lymphocytes % (Manual) 15 % (20-45) L Monocytes % (Manual) 6 % (1-10) Eosinophils % (Manual) 1 % (0-3) Basophils % (Manual) 1 % (0-2) Band Neutrophils 0 % (0-8) Platelet Estimate Adequate Platelet Morphology Normal Hypochromasia 3+ Anisocytosis 1+ Sodium Level 140 MMOL/L (136-145) Potassium Level 3.0 MMOL/L (3.5-5.1) L Chloride Level 107 MMOL/L (98-107) Carbon Dioxide Level 23 MMOL/L (21-32) Anion Gap 10 mmol/L (5-15) Blood Urea Nitrogen 8 mg/dL (7-18) Creatinine 0.7 MG/DL (0.55-1.30) Estimat Glomerular Filtration Rate mL/min (>60) Glucose Level 125 MG/DL (74-106) H Calcium Level 8.4 MG/DL (8.5-10.1) L Magnesium Level 1.5 MG/DL (1.8-2.4) L Vancomycin Level Trough 16.5 ug/mL (5.0-12.0) H Plan Problems: (1) Decubitus skin ulcer Assessment & Plan: Pt presented on admission with contractures. Pressure injuries to R and L foot ,non-blanching erythema sacrum. Lateral L heel erythematous and non-blanching. Base of wound is fluctuant. Periwound is also non-blanching and soft.(L)2.5cm x (W)3cm. Non-blanching erythema without fluctuance R hallux.(L)1.9cm x (W)2cm. DTPI noted to distal/lateral R foot including Lateral R metatarsal. Reabsorbing blood blister noted with erythematous margins. (L)4.8cm x (W)3.5cm. Tx.Plan: Apply Moisture Barrier Paste to sacrum. Cover with Optifoam drsg. Change every 3 days and prn. Apply Cavilon Skin Barrier to bony prominences both shoulders, both trochanteric and malleoli both feet. Cover each site with Optifoam drsgs. Change very 7 days and prn. Swab Lateral R foot with Betadine. Cover with Optifoam drsg. Change every 3 days and prn. Apply Cavilon to both heels. Cover each heel with Optifoam drsg. Change every 7 days and prn. APM/RAVINDER Mattress overlay. Reposition at least every 2hours or as tolerated. Place pillow between knees. Off-load heels with pillow. (2) Sepsis Assessment & Plan: Cont tube feeds IV abx as per ID wound care as above trend labs will monitor and follow with recs sepsis likely from UTI and not wounds (3) Failure to thrive syndrome, adult Assessment & Plan: DAILY ESTIMATED NEEDS: Needs based on Wt loss, wasting/ 48.2kg 30-35 kcals/kg 1442-0006 total kcals 1-1.5 g protein/kg 48-72 g total protein 25-30 mL/kg 9017-8123 total fluid mLs NUTRITION DIAGNOSIS: * Swallowing difficulty R/T dysphagia as evidenced by pt is PEG dep. * Increased kcal/prot intake needs R/T wt loss and wasting as evidenced by pt admitted w/ possible severe wt loss of 20lbs/15.8% in 5 months, pt @ 85% IBW. 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
--- NOTE | 2019-01-22 14:53 | Infectious Diseases Prog Note ---
Assessment/Plan Assessment/Plan ASSESSMENT AND PLAN: 1. possible sepsis, possible gram net uti, leukocytosis, ams - zosyn, discontinue vancomycin - chest x-ray - negative - f/u on urine culture and labs - leukocytosis resolved - clinically improved, mor alert 2. The patient has anemia. 3. Hypertension, NB, BPH - tx per primary and urology 4. Dementia. 5. Dysphagia. 6. Aspiration risk. 7. Check followup chest x-ray. 8. Altered mental status, weakness 9. wound care per surgery and protocol - doubt sepsis source 10. No history of diabetes or cancer or cardiac disease. 11. No known drug allergies. 12. Social history is negative. 13. Family history is noncontributory. 14. MAR was noted. 15. Case was discussed with RN. 16. Case was discussed with Dr. Patterson. 17. vre colonization and isolation Subjective Constitutional: Reports: fatigue, other - more alert ; Denies: fever HEENT: Denies: congestion Respiratory: Denies: shortness of breath Cardiovascular: Denies: chest pain Gastrointestinal/Abdominal: Denies: nausea, vomiting, diarrhea Genitourinary: Reports: other - + duggan Neurologic: Reports: weakness, other - more alert Psychiatric: Reports: other - NA Skin: Reports: ulcer - wounds covered ; Denies: rash Hematologic: Denies: bleeding Musculoskeletal: Reports: other - NA Allergies: Coded Allergies: No Known Allergies (Unverified , 08/20/18) Objective Vital Signs Last 24 Hour Vital Signs Date Time Temp Pulse Resp B/P (MAP) Pulse Ox O2 Delivery O2 Flow Rate FiO2 01/22/19 12:00 98.1 75 20 130/70 (90) 99 01/22/19 09:00 Room Air 01/22/19 08:31 147/77 01/22/19 08:00 73 01/22/19 08:00 98.1 77 20 147/77 (100) 99 01/22/19 07:37 96 18 98 Room Air 01/22/19 04:00 76 01/22/19 04:00 98.6 76 20 122/70 (87) 99 01/22/19 00:00 97.7 82 20 120/74 (89) 98 01/22/19 00:00 82 01/21/19 21:00 Room Air 01/21/19 20:00 90 01/21/19 20:00 97.7 90 18 116/67 (83) 96 01/21/19 19:20 97 18 96 Room Air 01/21/19 16:00 97.0 97 18 144/86 (105) 96 01/21/19 15:36 76 Height (Feet): 5 Height (Inches): 4.00 Weight (Pounds): 150 General Appearance: no acute distress HEENT: normocephalic, anicteric, EOMI, pharynx normal, supple, no JVD Respiratory/Chest: lungs clear, normal breath sounds, no respiratory distress Cardiovascular: normal rate, regular rhythm, no gallop/murmur, no JVD Abdomen: normal bowel sounds, soft, non tender, no organomegaly, non distended Genitourinary: other - + duggan - urine cloudy Extremities: no cyanosis Skin: no rash, ulcers - wounds - reviewed and do not seem acutely infected 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 Findings: Cardiomediastinal appearance is within normal limits for age. The lungs are clear. Pulmonary vascularity is appropriate. The diaphragmatic contour is smooth and costophrenic angles are sharp. No pleural effusions are identified. The bones are osteopenic. Impression: No acute findings Microbiology Date/Time Source Procedure Growth Status 01/20/19 14:45 Blood Blood Culture - Preliminary NO GROWTH AFTER 24 HOURS Resulted 01/20/19 14:30 Blood Blood Culture - Preliminary NO GROWTH AFTER 24 HOURS Resulted 01/20/19 15:30 Nasal Nares MRSA Culture - Final NO METHICILLIN RESISTANT STAPH AUREUS... Complete 01/20/19 14:45 Urine,Clean Catch Urine Culture - Preliminary Gram Negative Chris Resulted 01/20/19 15:30 Rectum VRE Culture - Final Enterococcus Faecalis - Vre Complete Laboratory Tests Test 01/22/19 04:06 White Blood Count 9.4 K/UL (4.8-10.8) Red Blood Count 2.65 M/UL (4.70-6.10) L Hemoglobin 7.9 G/DL (14.2-18.0) L Hematocrit 23.7 % (42.0-52.0) L Mean Corpuscular Volume 89 FL (80-99) Mean Corpuscular Hemoglobin 29.7 PG (27.0-31.0) Mean Corpuscular Hemoglobin Concent 33.2 G/DL (32.0-36.0) Red Cell Distribution Width 13.6 % (11.6-14.8) Platelet Count 173 K/UL (150-450) Mean Platelet Volume 6.8 FL (6.5-10.1) Neutrophils (%) (Auto) % (45.0-75.0) Lymphocytes (%) (Auto) % (20.0-45.0) Monocytes (%) (Auto) % (1.0-10.0) Eosinophils (%) (Auto) % (0.0-3.0) Basophils (%) (Auto) % (0.0-2.0) Differential Total Cells Counted 100 Neutrophils % (Manual) 77 % (45-75) H Lymphocytes % (Manual) 15 % (20-45) L Monocytes % (Manual) 6 % (1-10) Eosinophils % (Manual) 1 % (0-3) Basophils % (Manual) 1 % (0-2) Band Neutrophils 0 % (0-8) Platelet Estimate Adequate Platelet Morphology Normal Hypochromasia 3+ Anisocytosis 1+ Sodium Level 140 MMOL/L (136-145) Potassium Level 3.0 MMOL/L (3.5-5.1) L Chloride Level 107 MMOL/L (98-107) Carbon Dioxide Level 23 MMOL/L (21-32) Anion Gap 10 mmol/L (5-15) Blood Urea Nitrogen 8 mg/dL (7-18) Creatinine 0.7 MG/DL (0.55-1.30) Estimat Glomerular Filtration Rate mL/min (>60) Glucose Level 125 MG/DL (74-106) H Calcium Level 8.4 MG/DL (8.5-10.1) L Magnesium Level 1.5 MG/DL (1.8-2.4) L Vancomycin Level Trough 16.5 ug/mL (5.0-12.0) H Current Medications Medications (Trade) Dose Ordered Sig/Altagracia Route PRN Reason Start Time Stop Time Status Last Admin Dose Admin Acetaminophen (Tylenol) 650 mg Q4H PRN ORAL fever (temp>100.5F) 11/7/19 14:45 02/19/19 14:44 Albuterol/ Ipratropium (Albuterol/ Ipratropium) 3 ml Q4H PRN HHN Shortness of Breath 01/20/19 14:45 01/25/19 14:44 Cyanocobalamin (Vitamin B-12) 1,000 mcg DAILY GT 01/21/19 09:00 02/20/19 08:59 01/22/19 08:30 Dextrose (Dextrose 50%) 25 ml Q30M PRN IV Hypoglycemia 01/20/19 14:45 02/19/19 14:44 Dextrose (Dextrose 50%) 50 ml Q30M PRN IV Hypoglycemia 01/20/19 14:45 02/19/19 14:44 Ergocalciferol (Drisdol) 50,000 intlu ONCE A WEEK ORAL 01/24/19 09:00 02/23/19 08:59 Finasteride (Proscar) 5 mg DAILY ORAL 01/23/19 09:00 02/22/19 08:59 Hydralazine HCl (Apresoline) 10 mg Q4H PRN IV sbp>160 01/21/19 11:52 02/20/19 11:51 Hydromorphone HCl (Dilaudid) 1 mg Q4H PRN IVP Moderate Pain (Pain Scale 4-6) 01/20/19 14:45 01/27/19 14:44 Hydromorphone HCl (Dilaudid) 2 mg Q4H PRN IVP Severe Pain (Pain Scale 7-10) 01/20/19 14:45 01/27/19 14:44 Lisinopril (Zestril) 10 mg DAILY ORAL 01/22/19 09:00 02/21/19 08:59 01/22/19 08:31 Ondansetron HCl (Zofran) 4 mg Q6H PRN IVP Nausea & Vomiting 01/20/19 14:45 02/19/19 14:44 Pantoprazole (Protonix) 40 mg DAILY IV 01/21/19 09:00 02/20/19 08:59 01/22/19 08:30 Piperacillin Sod/ Tazobactam Sod 3.375 gm/Dextrose 100 ml @ 25 mls/hr EVERY 8 HOURS IVPB 01/20/19 22:00 01/25/19 21:59 01/22/19 06:44 Potassium Chloride 100 ml @ 100 mls/hr Q1H IVPB 01/22/19 12:30 01/22/19 16:29 01/22/19 14:11 Sodium Chloride 1,000 ml @ 150 mls/hr Q6H40M IVLG 01/20/19 15:00 02/19/19 14:59 01/22/19 10:27 Tamsulosin HCl (Flomax) 0.4 mg BEDTIME ORAL 01/22/19 21:00 02/21/19 20:59 Thiamine HCl (Vitamin B1) 100 mg DAILY ORAL 01/21/19 09:00 02/20/19 08:59 01/22/19 08:31 Vancomycin HCl (Vanco rx to dose) 1 ea DAILY PRN MISC Per rx protocol 01/20/19 16:15 02/19/19 16:14 Vancomycin HCl 1 gm/Dextrose 275 ml @ 183.708 mls/hr Q12HR@0500,1700 IVPB 01/21/19 05:00 01/26/19 04:59 01/22/19 05:06 Bonny Rincon MD Jan 22, 2019 14:53
--- NOTE | 2019-01-22 15:32 | Cardiology Report ---
APPROVED REPORT EKG Measurement Heart [id number] Normal sinus rhythm Normal ECG
--- NOTE | 2019-01-22 15:53 | NUR ---
NURSE NOTES:Spoke to Dr. Barba again regarding patient's hemoglobin lab is low 7.9. Dr. Barba acknowledged but no new orders at this time.
[2019-01-22 16:00] VITALS: BP 157/80
[2019-01-22] MEDS ORDERED: LISINOPRIL10 MG GT (16:39)
[2019-01-22] MEDS ORDERED: HYDRALAZINE HCL25 M1 GT (16:40)
[2019-01-22] MEDS ORDERED: THORAZINE25 MG GT (16:45)
[2019-01-22] MEDS ORDERED: CEPHALEXIN250 MG GT (16:45)
[2019-01-22] MEDS ORDERED: VITAMIN B-121000 MCG GT (16:47)
--- NOTE | 2019-01-22 19:47 | NUR ---
HAND-OFF: Report given to ANTOINETTE Velasquez. Plan of care endorsed
--- NOTE | 2019-01-22 19:48 | NUR ---
NURSE NOTES: Got report from Desirae CURRY. Pt in stable condition. Denies any pain. No s/s of distress or discomfort noted. Pt resting in bed comfortably. Bed in low and locked position, call light within reach, bedside table within reach. Continue to monitor.
[2019-01-22 20:00] VITALS: BP 137/65
[2019-01-22] MEDS ORDERED: Tamsulosin 0.4mg cap ORAL SCH (21:00)
[2019-01-23] VITALS: BP 150/76
[2019-01-23 04:00] VITALS: BP 140/70
--- NOTE | 2019-01-23 07:00 | NUR ---
HAND-OFF: Report given to Zenobia CURRY.
--- NOTE | 2019-01-23 07:06 | NUR ---
NURSE NOTES: Received pt in bed, sleeping and verbally responsive. Room air. No s/s of distress/pain. NSR on heat monitor. IV on R hand 18g intact and patent, running NS @ 150 ml/hr. G-tube feeding @ 65 ml/hr with no residual. FC intact draining pale yellow urine. Side rails x 2. Bed in the lowest, locked, and alarm on. Call light within reach. Will continue to monitor.
[2019-01-23 07:50] LABS: BASOPHILS % (AUTO) 1.2 % (0.0-2.0); HEMATOCRIT 27.2 % (42.0-52.0); HEMOGLOBIN 9.1 G/DL (14.2-18.0); LYMPHOCYTES % (AUTO) 24.9 % (20.0-45.0); MEAN CORPUSCULAR VOLUME 91 FL (80-99); MONOCYTES % (AUTO) 8.4 % (1.0-10.0); NEUTROPHILS % (AUTO) 63.5 % (45.0-75.0); PLATELET COUNT 221 K/UL (150-450); RED CELL DISTRIBUTION WIDTH 13.8 % (11.6-14.8)
[2019-01-23 08:00] VITALS: BP 132/73
[2019-01-23 08:07] LABS: ANION GAP 10 mmol/L (5-15); BLOOD UREA NITROGEN 7 mg/dL (7-18); CARBON DIOXIDE 24 MMOL/L (21-32); CHLORIDE 109 MMOL/L (98-107); CREATININE 0.7 MG/DL (0.55-1.30); POTASSIUM 3.6 MMOL/L (3.5-5.1); SODIUM 143 MMOL/L (136-145)
[2019-01-23] MEDS: Lisinopril 10mg tab ORAL SCH (09:17)
[2019-01-23] MEDS: Pantoprazole Inj IV SCH (09:17)
[2019-01-23] MEDS: Thiamine 100mg tab ORAL SCH (09:17)
[2019-01-23] MEDS: Vitamin B-12 500mcg tab GT SCH (09:17)
--- NOTE | 2019-01-23 09:19 | General Progress Note ---
Assessment/Plan Status: stable Assessment/Plan: Assessment/Plan Problem List: (1) UTI (urinary tract infection) ICD Codes: N39.0 - Urinary tract infection, site not specified SNOMED: 48828715 (2) Sepsis ICD Codes: A41.9 - Sepsis, unspecified organism SNOMED: 30912646 (3) Decubitus skin ulcer ICD Codes: L89.90 - Pressure ulcer of unspecified site, unspecified stage SNOMED: 915366748 (4) Hematuria ICD Codes: R31.9 - Hematuria, unspecified SNOMED: 67138102 Status: stable Assessment/Plan: Cliff Saldana is a 73 yo man with PMH of advanced dementia (bedbound, nonverbal, PEG dependent at baseline), SNF resident at [facility], dysphagia s/p PEG, HTN, depression, anemia of chronic disease, depression, and bilateral pressure ulcers in heels who presented from rehab facility [facility] for leukocytosis 21.7 and fever of 102 and hematuria #?possible sepsis, UTI due to Providencia S. per urine cx -IV Zosyn currently, Sensitivities noted to ( CTX, TS, Zosyn, Ertapenem ) Defer to ID: Dr. Torres final choice in antibiotic and length of treatment to be completed at [facility]. If clinically stable, goal to dc in the next 1-2 days. Vancomycin stopped ( 01/22 ) -IV fluids -negative blood cx and pending urine culture. -Urology consult for hematuria appreciated. Flomax and Finasteride added. #Advance dementia- bed bound, PEG dependent #Depression #Anemia of chronic disease- stable #Acute blood loss anemia- hematuria -monitor H/H, transfuse to keep hgb>7 -Urology consult reviewed. #Bilateral pressure ulcers heels wound consult appreciated. #Hx of HTN - Lisinopril, hydralazine prn for sbp > 160 # Anemia - Spontanously improved. Monitor for now. No acute signs of blood loss noted. vte ppx: heparin- however hold due to hematuria, place scd boots Gi ppx: ppi code: full I spent 41 minutes during this encounter, >50 spent on counselling and care coordination. case d/w rn, d/w ID time of this note may not reflect time of encounter. Subjective Date patient seen: Jan 23, 2019 Time patient seen: 08:20 ROS Limited/Unobtainable: Yes Allergies: Coded Allergies: No Known Allergies (Unverified , 08/20/18) Subjective Minimal verbal input in sami. Denies pain at this time. Only tells me his first name. Objective Last 24 Hour Vital Signs Date Time Temp Pulse Resp B/P (MAP) Pulse Ox O2 Delivery O2 Flow Rate FiO2 01/23/19 08:00 98.1 77 20 132/73 (92) 98 01/23/19 07:36 87 18 98 Room Air 21 01/23/19 04:00 83 01/23/19 04:00 98.1 91 20 140/70 (93) 99 01/23/19 00:00 83 01/23/19 00:00 98.0 95 20 150/76 (100) 98 01/22/19 21:00 Room Air 01/22/19 20:00 76 01/22/19 20:00 98.2 83 18 137/65 (89) 98 01/22/19 19:46 89 18 97 Room Air 21 01/22/19 16:00 98.1 89 20 157/80 (105) 99 01/22/19 16:00 78 01/22/19 12:00 72 01/22/19 12:00 98.1 75 20 130/70 (90) 99 Intake and Output 01/22/19 01/23/19 19:00 07:00 Intake Total 585 ml Output Total 1800 ml 1400 ml Balance -1215 ml -1400 ml Tube Feeding 585 ml Output Urine Total 1800 ml 1400 ml Laboratory Tests 01/23/19 06:30: White Blood Count 8.0, Red Blood Count 3.00L, Hemoglobin 9.1L, Hematocrit 27.2L , Mean Corpuscular Volume 91, Mean Corpuscular Hemoglobin 30.1, Mean Corpuscular Hemoglobin Concent 33.3, Red Cell Distribution Width 13.8, Platelet Count 221, Mean Platelet Volume 7.1, Neutrophils (%) (Auto) 63.5, Lymphocytes (% ) (Auto) 24.9, Monocytes (%) (Auto) 8.4, Eosinophils (%) (Auto) 2.0, Basophils ( %) (Auto) 1.2, Sodium Level 143, Potassium Level 3.6, Chloride Level 109H, Carbon Dioxide Level 24, Anion Gap 10, Blood Urea Nitrogen 7, Creatinine 0.7, Estimat Glomerular Filtration Rate , Glucose Level 120H, Calcium Level 9.0, Magnesium Level 1.9 Height (Feet): 5 Height (Inches): 4.00 Weight (Pounds): 150 General Appearance: WD/WN EENT: PERRL/EOMI Neck: non-tender, normal alignment Cardiovascular: normal rate, regular rhythm Respiratory/Chest: normal breath sounds Abdomen: non tender, soft 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
--- NOTE | 2019-01-23 09:25 | Urology Progress Note ---
Assessment/Plan Status: stable Assessment/Plan: 1. Gross hematuria, which is improved. 2. Urinary retention. 3. BPH. 4. Probable neurogenic bladder. 5. UTI. 6. Proteinuria. 7. Renal cyst. 8. Bladder calculi. 9. Possible cystitis. maintain duggan hand irrigated and do PRN cath secured to pt's leg abx as ordered flomax and proscar added voiding trial at some point? cysto later f/u on blood cx Subjective Allergies: Coded Allergies: No Known Allergies (Unverified , 08/20/18) Subjective all noted, looks comfortable Objective Last 24 Hour Vital Signs Date Time Temp Pulse Resp B/P (MAP) Pulse Ox O2 Delivery O2 Flow Rate FiO2 01/23/19 09:17 132/73 01/23/19 08:00 98.1 77 20 132/73 (92) 98 01/23/19 07:36 87 18 98 Room Air 21 01/23/19 04:00 83 01/23/19 04:00 98.1 91 20 140/70 (93) 99 01/23/19 00:00 83 01/23/19 00:00 98.0 95 20 150/76 (100) 98 01/22/19 21:00 Room Air 01/22/19 20:00 76 01/22/19 20:00 98.2 83 18 137/65 (89) 98 01/22/19 19:46 89 18 97 Room Air 21 01/22/19 16:00 98.1 89 20 157/80 (105) 99 01/22/19 16:00 78 01/22/19 12:00 72 01/22/19 12:00 98.1 75 20 130/70 (90) 99 Intake and Output 01/22/19 01/23/19 19:00 07:00 Intake Total 585 ml Output Total 1800 ml 1400 ml Balance -1215 ml -1400 ml Tube Feeding 585 ml Output Urine Total 1800 ml 1400 ml Microbiology Date/Time Source Procedure Growth Status 01/20/19 14:45 Blood Blood Culture - Preliminary NO GROWTH AFTER 48 HOURS Resulted 01/20/19 15:30 Nasal Nares MRSA Culture - Final NO METHICILLIN RESISTANT STAPH AUREUS... Complete 01/20/19 14:45 Urine,Clean Catch Urine Culture - Final Providencia Stuartii Complete 01/20/19 15:30 Rectum - Final NO CARBAPENEM-RESISTANT ENTEROBACTERI... Complete Current Medications Medications (Trade) Dose Ordered Sig/Altagracia Route PRN Reason Start Time Stop Time Status Last Admin Dose Admin Acetaminophen (Tylenol) 650 mg Q4H PRN ORAL fever (temp>100.5F) 01/20/19 14:45 02/19/19 14:44 Albuterol/ Ipratropium (Albuterol/ Ipratropium) 3 ml Q4H PRN HHN Shortness of Breath 01/20/19 14:45 01/25/19 14:44 Cyanocobalamin (Vitamin B-12) 1,000 mcg DAILY GT 01/21/19 09:00 02/20/19 08:59 01/23/19 09:17 Dextrose (Dextrose 50%) 25 ml Q30M PRN IV Hypoglycemia 01/20/19 14:45 02/19/19 14:44 Dextrose (Dextrose 50%) 50 ml Q30M PRN IV Hypoglycemia 01/20/19 14:45 02/19/19 14:44 Ergocalciferol (Drisdol) 50,000 intlu ONCE A WEEK ORAL 01/24/19 09:00 02/23/19 08:59 Finasteride (Proscar) 5 mg DAILY ORAL 01/23/19 09:00 02/22/19 08:59 01/23/19 09:17 Hydralazine HCl (Apresoline) 10 mg Q4H PRN IV sbp>160 01/21/19 11:52 02/20/19 11:51 Hydromorphone HCl (Dilaudid) 1 mg Q4H PRN IVP Moderate Pain (Pain Scale 4-6) 01/20/19 14:45 01/27/19 14:44 Hydromorphone HCl (Dilaudid) 2 mg Q4H PRN IVP Severe Pain (Pain Scale 7-10) 01/20/19 14:45 01/27/19 14:44 Lisinopril (Zestril) 10 mg DAILY ORAL 01/22/19 09:00 02/21/19 08:59 01/23/19 09:17 Ondansetron HCl (Zofran) 4 mg Q6H PRN IVP Nausea & Vomiting 01/20/19 14:45 02/19/19 14:44 Pantoprazole (Protonix) 40 mg DAILY IV 01/21/19 09:00 02/20/19 08:59 01/23/19 09:17 Piperacillin Sod/ Tazobactam Sod 3.375 gm/Dextrose 100 ml @ 25 mls/hr EVERY 8 HOURS IVPB 01/20/19 22:00 01/25/19 21:59 01/23/19 05:31 Sodium Chloride 1,000 ml @ 150 mls/hr Q6H40M IVLG 01/20/19 15:00 02/19/19 14:59 01/22/19 21:46 Tamsulosin HCl (Flomax) 0.4 mg BEDTIME ORAL 01/22/19 21:00 02/21/19 20:59 01/22/19 21:45 Thiamine HCl (Vitamin B1) 100 mg DAILY ORAL 01/21/19 09:00 02/20/19 08:59 01/23/19 09:17 Laboratory Tests 01/23/19 06:30: White Blood Count 8.0, Red Blood Count 3.00L, Hemoglobin 9.1L, Hematocrit 27.2L , Mean Corpuscular Volume 91, Mean Corpuscular Hemoglobin 30.1, Mean Corpuscular Hemoglobin Concent 33.3, Red Cell Distribution Width 13.8, Platelet Count 221, Mean Platelet Volume 7.1, Neutrophils (%) (Auto) 63.5, Lymphocytes (% ) (Auto) 24.9, Monocytes (%) (Auto) 8.4, Eosinophils (%) (Auto) 2.0, Basophils ( %) (Auto) 1.2, Sodium Level 143, Potassium Level 3.6, Chloride Level 109H, Carbon Dioxide Level 24, Anion Gap 10, Blood Urea Nitrogen 7, Creatinine 0.7, Estimat Glomerular Filtration Rate , Glucose Level 120H, Calcium Level 9.0, Magnesium Level 1.9 Height (Feet): 5 Height (Inches): 4.00 Weight (Pounds): 150 Objective exam stable duggan indwelling, urine grossly yellow Bamshad,Durga Montenegro MD Jan 23, 2019 09:25
[2019-01-23 12:00] VITALS: BP 131/71
--- NOTE | 2019-01-23 12:41 | Surgery Progress Note ---
Surgery Progress Note Subjective Additional Comments no acute events stable comfortable tolerating feeds non verbal Objective Last 24 Hour Vital Signs Date Time Temp Pulse Resp B/P (MAP) Pulse Ox O2 Delivery O2 Flow Rate FiO2 01/23/19 12:00 98.3 76 20 131/71 (91) 96 01/23/19 12:00 75 01/23/19 09:17 132/73 01/23/19 09:00 Room Air 01/23/19 08:00 71 01/23/19 08:00 98.1 77 20 132/73 (92) 98 01/23/19 07:36 87 18 98 Room Air 21 01/23/19 04:00 83 01/23/19 04:00 98.1 91 20 140/70 (93) 99 01/23/19 00:00 83 01/23/19 00:00 98.0 95 20 150/76 (100) 98 01/22/19 21:00 Room Air 01/22/19 20:00 76 01/22/19 20:00 98.2 83 18 137/65 (89) 98 01/22/19 19:46 89 18 97 Room Air 21 01/22/19 16:00 98.1 89 20 157/80 (105) 99 01/22/19 16:00 78 I&O Intake and Output 01/22/19 01/23/19 18:59 06:59 Intake Total 585 ml 25 ml Output Total 1800 ml 1400 ml Balance -1215 ml -1375 ml IV Total 25 ml Tube Feeding 585 ml Output Urine Total 1800 ml 1400 ml Dressing: other Wound: other Drains: other Cardiovascular: RSR Respiratory: decreased breath sounds Abdomen: soft, present bowel sounds Extremities: no cyanosis, other Laboratory Tests Test 01/23/19 06:30 White Blood Count 8.0 K/UL (4.8-10.8) Red Blood Count 3.00 M/UL (4.70-6.10) L Hemoglobin 9.1 G/DL (14.2-18.0) L Hematocrit 27.2 % (42.0-52.0) L Mean Corpuscular Volume 91 FL (80-99) Mean Corpuscular Hemoglobin 30.1 PG (27.0-31.0) Mean Corpuscular Hemoglobin Concent 33.3 G/DL (32.0-36.0) Red Cell Distribution Width 13.8 % (11.6-14.8) Platelet Count 221 K/UL (150-450) Mean Platelet Volume 7.1 FL (6.5-10.1) Neutrophils (%) (Auto) 63.5 % (45.0-75.0) Lymphocytes (%) (Auto) 24.9 % (20.0-45.0) Monocytes (%) (Auto) 8.4 % (1.0-10.0) Eosinophils (%) (Auto) 2.0 % (0.0-3.0) Basophils (%) (Auto) 1.2 % (0.0-2.0) Sodium Level 143 MMOL/L (136-145) Potassium Level 3.6 MMOL/L (3.5-5.1) Chloride Level 109 MMOL/L (98-107) H Carbon Dioxide Level 24 MMOL/L (21-32) Anion Gap 10 mmol/L (5-15) Blood Urea Nitrogen 7 mg/dL (7-18) Creatinine 0.7 MG/DL (0.55-1.30) Estimat Glomerular Filtration Rate mL/min (>60) Glucose Level 120 MG/DL (74-106) H Calcium Level 9.0 MG/DL (8.5-10.1) Magnesium Level 1.9 MG/DL (1.8-2.4) Plan Problems: (1) Decubitus skin ulcer Assessment & Plan: Pt presented on admission with contractures. Pressure injuries to R and L foot ,non-blanching erythema sacrum. Lateral L heel erythematous and non-blanching. Base of wound is fluctuant. Periwound is also non-blanching and soft.(L)2.5cm x (W)3cm. Non-blanching erythema without fluctuance R hallux.(L)1.9cm x (W)2cm. DTPI noted to distal/lateral R foot including Lateral R metatarsal. Reabsorbing blood blister noted with erythematous margins. (L)4.8cm x (W)3.5cm. Tx.Plan: Apply Moisture Barrier Paste to sacrum. Cover with Optifoam drsg. Change every 3 days and prn. Apply Cavilon Skin Barrier to bony prominences both shoulders, both trochanteric and malleoli both feet. Cover each site with Optifoam drsgs. Change very 7 days and prn. Swab Lateral R foot with Betadine. Cover with Optifoam drsg. Change every 3 days and prn. Apply Cavilon to both heels. Cover each heel with Optifoam drsg. Change every 7 days and prn. APM/RAVINDER Mattress overlay. Reposition at least every 2hours or as tolerated. Place pillow between knees. Off-load heels with pillow. (2) Sepsis Assessment & Plan: Cont tube feeds IV abx as per ID wound care as above trend labs will monitor and follow with recs sepsis likely from UTI and not wounds improving (3) Failure to thrive syndrome, adult Assessment & Plan: DAILY ESTIMATED NEEDS: Needs based on Wt loss, wasting/ 48.2kg 30-35 kcals/kg 3041-5991 total kcals 1-1.5 g protein/kg 48-72 g total protein 25-30 mL/kg 5829-0467 total fluid mLs NUTRITION DIAGNOSIS: * Swallowing difficulty R/T dysphagia as evidenced by pt is PEG dep. * Increased kcal/prot intake needs R/T wt loss and wasting as evidenced by pt admitted w/ possible severe wt loss of 20lbs/15.8% in 5 months, pt @ 85% IBW. CURRENT TF:NPO ENTERAL NUTRITION RECOMMENDATIONS: Glucerna 1.2 @ 55ml/hr x 24 hrs to provide 1320ml, 1584kcal, 79g prot, 1063ml free water * As medically appropriate, initiate TF (Pt on Glucerna 1.2 [address]) * Initiate Glucerna 1.2 @ 20ml/hr x 6 hrs * Advance 10ml q 4-6 hrs as tolerated to goal rate * HOB over 30 degrees/ water flush per MD ADDITIONAL RECOMMENDATIONS: * Calibrated bedscale wt -> bedscale wt of 106lbs vs EMR wt of 150lbs -> rec daily wt monitoring given possible recent wt loss * Check F/up A1C-> A1C 6.3 (09/10/18) * Monitor lytes w/ TF, replete as needed Reji Guy Jan 23, 2019 12:41
--- NOTE | 2019-01-23 14:43 | NUR ---
NURSE NOTES: Received pt from Tel /report by Ephraim CURRY, pt awake, A/O x 1, non-verbal, contracted, GTube in place, no residual, duggan in place, draining clear yellow urine, faby heels and sacral dressing on,CDI. pts on IVF and Abx. bed in low position, bed alarm on, fall and asp precaution maintained. will continue to monitor.
--- NOTE | 2019-01-23 14:43 | NUR ---
NURSE NOTES: Pt transferred to 404-1, breathing easily on room air, no evidence of SOB, no evidence of pain. Vital signs stable with SR @ 76 on monitor. IV access with NS @ 75 ml/hr y-sited with Zosyn. G-tube feeding Glu 1.2 running at 65 ml/hr with no residual. Low air loss mattress on bed and running. Report given to ANTOINETTE Leon. Bed left in low position, side rails up x 3, exit alarm set, and call light left near pt's hand. Pt chart, charge nurse notes, labels and ABX brought to floor with pt. Pt has not belongings.
[2019-01-23] MEDS ORDERED: HYDROmorphone 1mg/ml Carpuject IVP PRN (14:45)
[2019-01-23] MEDS ORDERED: Albuterol/Ipratropium 3ml neb HHN PRN (14:45)
[2019-01-23 16:30] VITALS: BP 165/97
--- NOTE | 2019-01-23 19:30 | NUR ---
NURSE NOTES: Received report from ANTOINETTE Leon. Patient a/a/o x 0, non-verbal. Patient on room air, O2Sat 98%. No s/s of pain noted at this time. Feeding running Glucerna 1.2 at 65cc/hr without residual. IV noted on the left hand running NS 150 cc/hr. On P200 mattress. All four extremities contracted. Manriquez intact draining urine, anchor secured on to right thigh. Bed placed at the lowest with alarm, brake, and siderails up for safety. Call light placed within reach. Will monitor frequently. Addendum: 01/24/19 at 0020 by Kyler Gomez RN Patient speaks occasionally in [place].
[2019-01-23 20:00] VITALS: BP 161/91
--- NOTE | 2019-01-23 20:00 | NUR ---
NURSE NOTES: Patient had BM x1, cleaned patient and performed dressing change on sacral and bilateral heels and right foot. Attempted to explain the procedure prior and during the process. Patient tolerated the procedure well. Will continue to monitor and provide care as ordered.
--- NOTE | 2019-01-23 20:30 | NUR ---
NURSE NOTES: Patient's 1999 vital sign reading bp 161/91. Paged Dr. Hyatt to inform about the BP. Was not able to reach Dr. Hyatt at this. Will follow up and continue to monitor patient.
[2019-01-23] MEDS: Tamsulosin 0.4mg cap ORAL SCH (21:03)
--- NOTE | 2019-01-23 21:20 | NUR ---
NURSE NOTES: Received a call back from Dr. Hyatt. Informed about the bp. Received an PRN order for hydralazine 25 mg po through gtube Q 4hrs for SBP greater than 160. Will carry out the order and continue to monitor patient.
[2019-01-23] MEDS ORDERED: HydrALAZINE 25mg tab GT PRN (21:30)
--- NOTE | 2019-01-23 21:30 | NUR ---
NURSE NOTES: Rechecked bp. BP reading 140/87. Will continue to monitor.
[2019-01-24] VITALS: BP 150/81
[2019-01-24 04:00] VITALS: BP 135/80
--- NOTE | 2019-01-24 06:30 | NUR ---
NURSE NOTES: Patient had another BM x 1. Loose BM. Cleaned patient and provided dressing change as ordered. Patient tolerated the procedure well. Will continue to monitor.
--- NOTE | 2019-01-24 07:22 | NUR ---
NURSE NOTES: pt resting in bed. awake, A/0 x1, No SOB noted, denies pain. pt on GTube feeding, tolerating well, no residual, IVF infusing, pts on Abx, Dressing changed by maintenance technician 2nd shift nurse, CDI, bed in low position, bed alarm on, call light within reach, aspiration and fall precaution maintained. will continue to monitor.
--- NOTE | 2019-01-24 07:25 | NUR ---
HAND-OFF: Report given to ANTOINETTE Leon. Endorsed about the non-pitting swelling noted on the left hand.
[2019-01-24 07:50] LABS: BASOPHILS % (AUTO) 1.2 % (0.0-2.0); EOSINOPHILS % (AUTO) 3.1 % (0.0-3.0); HEMATOCRIT 26.8 % (42.0-52.0); LYMPHOCYTES % (AUTO) 27.6 % (20.0-45.0); MEAN CORPUSCULAR VOLUME 91 FL (80-99); MONOCYTES % (AUTO) 7.7 % (1.0-10.0); NEUTROPHILS % (AUTO) 60.4 % (45.0-75.0); PLATELET COUNT 233 K/UL (150-450); RED BLOOD COUNT 2.96 M/UL (4.70-6.10); RED CELL DISTRIBUTION WIDTH 13.7 % (11.6-14.8)
[2019-01-24 08:00] VITALS: BP 130/78
--- NOTE | 2019-01-24 08:12 | General Progress Note ---
Assessment/Plan Problem List: (1) UTI (urinary tract infection) ICD Codes: N39.0 - Urinary tract infection, site not specified SNOMED: 94044236 (2) Sepsis ICD Codes: A41.9 - Sepsis, unspecified organism SNOMED: 22049038 Qualifiers: Qualified Codes: A41.9 - Sepsis, unspecified organism (3) Decubitus skin ulcer ICD Codes: L89.90 - Pressure ulcer of unspecified site, unspecified stage SNOMED: 587513704 (4) Hematuria ICD Codes: R31.9 - Hematuria, unspecified SNOMED: 97822474 (5) BPH (benign prostatic hyperplasia) ICD Codes: N40.0 - Benign prostatic hyperplasia without lower urinary tract symptoms SNOMED: 099372319 (6) Bladder calculi ICD Codes: N21.0 - Calculus in bladder SNOMED: 77139946 (7) Proteinuria ICD Codes: R80.9 - Proteinuria, unspecified SNOMED: 75291888 (8) Urinary retention ICD Codes: R33.9 - Retention of urine, unspecified SNOMED: 933118311 Status: stable Assessment/Plan: Cliff Saldana is a 73 yo man with PMH of advanced dementia (bedbound, nonverbal, PEG dependent at baseline), dysphagia s/p PEG, HTN, depression, anemia of chronic disease, depression, and bilateral pressure ulcers in heels who presented from rehab facility [facility] for leukocytosis 21.7 and fever of 102 and hematuria #?possible sepsis #? UTI, gors shematuria, urinary retention, bph, probably neurogenic bladder, proteinuria, bladder calculi -IV Zosyn, s/p Vancomycin -IV fluids -follow up cultures- urine culture:Providencia stuartii- <100k sensitive to Zosyn -ID: Dr. Torres -Urology consult appreciated, continue duggan, irrigation prn, needs outpatient cystoscopy. #Advance dementia- bed bound, PEG dependent #Depression #Anemia of chronic disease- stable #Acute blood loss anemia- hematuria -moniotr H/H, transfuse to keep hgb>7 #Bilateral pressure ulcers heels wound consult #Hx of HTN -resume Lisinopril, hydralazine prn for sbp > 160 vte ppx: heparin- however hold due to hematuria, place scd boots Gi ppx: ppi code: full I spent 40 minutes during this encounter, >50 spent on counselling and care coordination. case d/w rn, d/w ID time of this note may not reflect time of encounter. Subjective Date patient seen: Jan 24, 2019 ROS Limited/Unobtainable: Yes Allergies: Coded Allergies: No Known Allergies (Unverified , 08/20/18) Subjective non verbal at baseline, awake. more alert Duggan with clear urine Objective Last 24 Hour Vital Signs Date Time Temp Pulse Resp B/P (MAP) Pulse Ox O2 Delivery O2 Flow Rate FiO2 01/24/19 08:00 98.6 80 20 130/78 (95) 97 01/24/19 07:46 83 18 97 Room Air 21 01/24/19 04:00 98.3 77 24 135/80 (98) 95 01/24/19 00:00 98.0 84 22 150/81 (104) 95 01/23/19 21:00 Room Air 01/23/19 20:00 98.4 88 22 161/91 (114) 95 01/23/19 19:51 81 18 96 Room Air 21 01/23/19 16:30 97.0 73 18 165/97 (119) 98 01/23/19 12:00 98.3 76 20 131/71 (91) 96 01/23/19 12:00 75 01/23/19 09:17 132/73 01/23/19 09:00 Room Air Intake and Output 01/23/19 01/24/19 19:00 07:00 Intake Total 1400 ml 2170 ml Output Total 750 ml Balance 650 ml 2170 ml Intake Free Water 100 ml 200 ml IV Total 975 ml 1450 ml Tube Feeding 325 ml 520 ml Output Urine Total 750 ml # Bowel Movements 2 Laboratory Tests 01/23/19 15:50: Vancomycin Level Trough 6.8 01/24/19 05:48: White Blood Count 8.0, Red Blood Count 2.96L, Hemoglobin 9.0L, Hematocrit 26.8L , Mean Corpuscular Volume 91, Mean Corpuscular Hemoglobin 30.3, Mean Corpuscular Hemoglobin Concent 33.5, Red Cell Distribution Width 13.7, Platelet Count 233, Mean Platelet Volume 6.9, Neutrophils (%) (Auto) 60.4, Lymphocytes (% ) (Auto) 27.6, Monocytes (%) (Auto) 7.7, Eosinophils (%) (Auto) 3.1H, Basophils (%) (Auto) 1.2, Sodium Level [Pending], Potassium Level [Pending], Chloride Level [Pending], Carbon Dioxide Level [Pending], Blood Urea Nitrogen [Pending], Creatinine [Pending], Estimat Glomerular Filtration Rate [Pending], Glucose Level [Pending], Calcium Level [Pending], Magnesium Level [Pending] Height (Feet): 5 Height (Inches): 4.00 Weight (Pounds): 150 Objective General Appearance: no apparent distress, alert, other - NAD. lying in bed, contracted in all four extremities.awake, flat affect, does not follow commands Lines, tubes and drains: peripheral HEENT: normocephalic, atraumatic, other - dry mucous membranes Neck: supple Respiratory/Chest: other - Coarse breath sounds bilaterally, no wheezing appreciated Cardiovascular/Chest: normal peripheral pulses, normal rate, regular rhythm Abdomen: normal bowel sounds, non tender, soft Extremities: non-tender, no edema, other - LE wounds dressing c/d/i Neurologic: other - Nonverbal, contracted in all 4 extremities (baseline), flat affect Musculoskeletal: atrophy duggan with clear urine Kameron Patterson M.D. Jan 24, 2019 08:12
[2019-01-24 08:14] LABS: ANION GAP 12 mmol/L (5-15); BLOOD UREA NITROGEN 7 mg/dL (7-18); CALCIUM 8.3 MG/DL (8.5-10.1); CARBON DIOXIDE 23 MMOL/L (21-32); CHLORIDE 109 MMOL/L (98-107); CREATININE 0.6 MG/DL (0.55-1.30); POTASSIUM 3.1 MMOL/L (3.5-5.1); SODIUM 143 MMOL/L (136-145)
[2019-01-24] MEDS: Lisinopril 10mg tab ORAL SCH (08:28)
[2019-01-24] MEDS: Thiamine 100mg tab ORAL SCH (08:28)
[2019-01-24] MEDS: Vitamin B-12 500mcg tab GT SCH (08:28)
[2019-01-24] MEDS: Pantoprazole Inj IV SCH (08:29)
[2019-01-24] MEDS ORDERED: Vitamin D 50,000 units cap ORAL SCH ×2 (09:00)
--- NOTE | 2019-01-24 09:34 | Urology Progress Note ---
Assessment/Plan Status: stable Assessment/Plan: 1. Gross hematuria, which is improved. 2. Urinary retention. 3. BPH. 4. Probable neurogenic bladder. 5. UTI. 6. Proteinuria. 7. Renal cyst. 8. Bladder calculi. 9. Possible cystitis. maintain duggan hand irrigate PRN cath secured to pt's leg abx as ordered flomax and proscar added voiding trial at some point? cysto later f/u on blood cx Subjective Allergies: Coded Allergies: No Known Allergies (Unverified , 08/20/18) Subjective all noted, looks comfortable Objective Last 24 Hour Vital Signs Date Time Temp Pulse Resp B/P (MAP) Pulse Ox O2 Delivery O2 Flow Rate FiO2 01/24/19 08:28 130/78 01/24/19 08:00 98.6 80 20 130/78 (95) 97 01/24/19 07:46 83 18 97 Room Air 21 01/24/19 04:00 98.3 77 24 135/80 (98) 95 01/24/19 00:00 98.0 84 22 150/81 (104) 95 01/23/19 21:00 Room Air 01/23/19 20:00 98.4 88 22 161/91 (114) 95 01/23/19 19:51 81 18 96 Room Air 21 01/23/19 16:30 97.0 73 18 165/97 (119) 98 01/23/19 12:00 98.3 76 20 131/71 (91) 96 01/23/19 12:00 75 Intake and Output 01/23/19 01/24/19 19:00 07:00 Intake Total 1400 ml 2170 ml Output Total 750 ml Balance 650 ml 2170 ml Intake Free Water 100 ml 200 ml IV Total 975 ml 1450 ml Tube Feeding 325 ml 520 ml Output Urine Total 750 ml # Bowel Movements 2 Microbiology Date/Time Source Procedure Growth Status 01/20/19 14:45 Blood Blood Culture - Preliminary NO GROWTH AFTER 72 HOURS Resulted 01/20/19 15:30 Nasal Nares MRSA Culture - Final NO METHICILLIN RESISTANT STAPH AUREUS... Complete 01/20/19 14:45 Urine,Clean Catch Urine Culture - Final Providencia Stuartii Complete 01/20/19 15:30 Rectum - Final NO CARBAPENEM-RESISTANT ENTEROBACTERI... Complete Current Medications Medications (Trade) Dose Ordered Sig/Altagracia Route PRN Reason Start Time Stop Time Status Last Admin Dose Admin Acetaminophen (Tylenol) 650 mg Q4H PRN ORAL fever (temp>100.5F) 01/23/19 14:45 02/19/19 14:44 Albuterol/ Ipratropium (Albuterol/ Ipratropium) 3 ml Q4H PRN HHN Shortness of Breath 01/23/19 14:45 01/25/19 14:44 Cyanocobalamin (Vitamin B-12) 1,000 mcg DAILY GT 01/24/19 09:00 02/20/19 08:59 01/24/19 08:28 Dextrose (Dextrose 50%) 25 ml Q30M PRN IV Hypoglycemia 01/23/19 14:45 02/19/19 14:44 Dextrose (Dextrose 50%) 50 ml Q30M PRN IV Hypoglycemia 01/23/19 14:45 02/19/19 14:44 Ergocalciferol (Drisdol) 50,000 intlu ONCE A WEEK ORAL 01/24/19 09:00 02/23/19 08:59 Finasteride (Proscar) 5 mg DAILY ORAL 01/24/19 09:00 02/22/19 08:59 01/24/19 08:28 Hydralazine HCl (Apresoline) 25 mg Q4H PRN GT SBP greater than 160 01/23/19 21:30 02/22/19 21:29 Hydromorphone HCl (Dilaudid) 1 mg Q4H PRN IVP Moderate Pain (Pain Scale 4-6) 01/23/19 14:45 01/27/19 14:44 01/24/19 06:06 Hydromorphone HCl (Dilaudid) 2 mg Q4H PRN IVP Severe Pain (Pain Scale 7-10) 01/23/19 14:45 01/27/19 14:44 Lisinopril (Zestril) 10 mg DAILY ORAL 01/24/19 09:00 02/21/19 08:59 01/24/19 08:28 Ondansetron HCl (Zofran) 4 mg Q6H PRN IVP Nausea & Vomiting 01/23/19 14:45 02/19/19 14:44 Pantoprazole (Protonix) 40 mg DAILY IV 01/24/19 09:00 02/20/19 08:59 01/24/19 08:29 Piperacillin Sod/ Tazobactam Sod 3.375 gm/Dextrose 100 ml @ 25 mls/hr EVERY 8 HOURS IVPB 01/23/19 22:00 01/28/19 21:59 01/24/19 05:34 Potassium Chloride (K-Dur) 60 meq ONCE ORAL 01/24/19 09:30 01/24/19 11:00 Sodium Chloride 1,000 ml @ 150 mls/hr Q6H40M IVLG 01/23/19 15:00 02/19/19 14:59 01/24/19 05:34 Tamsulosin HCl (Flomax) 0.4 mg BEDTIME ORAL 01/23/19 21:00 02/21/19 20:59 01/23/19 21:03 Thiamine HCl (Vitamin B1) 100 mg DAILY ORAL 01/24/19 09:00 02/20/19 08:59 01/24/19 08:28 Laboratory Tests 01/23/19 15:50: Vancomycin Level Trough 6.8 01/24/19 05:48: White Blood Count 8.0, Red Blood Count 2.96L, Hemoglobin 9.0L, Hematocrit 26.8L , Mean Corpuscular Volume 91, Mean Corpuscular Hemoglobin 30.3, Mean Corpuscular Hemoglobin Concent 33.5, Red Cell Distribution Width 13.7, Platelet Count 233, Mean Platelet Volume 6.9, Neutrophils (%) (Auto) 60.4, Lymphocytes (% ) (Auto) 27.6, Monocytes (%) (Auto) 7.7, Eosinophils (%) (Auto) 3.1H, Basophils (%) (Auto) 1.2, Sodium Level 143, Potassium Level 3.1L, Chloride Level 109H, Carbon Dioxide Level 23, Anion Gap 12, Blood Urea Nitrogen 7, Creatinine 0.6, Estimat Glomerular Filtration Rate , Glucose Level 113H, Calcium Level 8.3L, Magnesium Level 1.6L Height (Feet): 5 Height (Inches): 4.00 Weight (Pounds): 150 Objective exam stable duggan indwelling, urine grossly yellow Bamshad,Durga Montenegro MD Jan 24, 2019 09:34
--- NOTE | 2019-01-24 10:56 | Consultation ---
History of Present Illness General Date patient seen: Jan 24, 2019 Chief Complaint: Fever Present Illness HPI 73M currently hospitalized. Bedbound. non responsive. Allergies: Coded Allergies: No Known Allergies (Unverified , 08/20/18) Medication History Scheduled Cephalexin* (Keflex*), 250 MG GT EVERY 6 HOURS, (Reported) Cyanocobalamin (Vitamin B-12) (Vitamin B-12), 1,000 MCG GT DAILY, (Reported) Ergocalciferol (Vitamin D2)* (Vitamin D*), 50,000 UNIT GT ONCE A WEEK, (Reported ) Lisinopril* (Lisinopril*), 10 MG GT DAILY, (Reported) Pantoprazole Sodium (Protonix), 40 MG GT DAILY Thiamine Hcl* (Vitamin B-1*), 100 MG GT DAILY, (Reported) Scheduled PRN Acetaminophen (Acetaminophen), 650 MG RC Q6HR PRN for FEVER, (Reported) Chlorpromazine (Chlorpromazine HCl), 25 MG GT EVERY 8 HOURS PRN for HICCUPS, ( Reported) Hydralazine Hcl* (Hydralazine Hcl*), 25 MG GT EVERY 6 HOURS PRN for SBP > 160, ( Reported) Ondansetron* (Zofran*), 4 MG GT Q6H PRN for Nausea & Vomiting, (Reported) Tramadol Hcl* (Ultram*), 50 MG GT DAILY PRN for For Pain, (Reported) Discontinued Medications Cyanocobalamin (Vitamin B-12)* (Vitamin B-12*), 1,000 MCG GT DAILY, (Reported) Discontinued Reason: Prescription changed Patient History Limited by: medical condition Healthcare decision maker N Resuscitation status Full Code Advanced Directive on File Physical Exam Physical Exam Narrative no injection of conjunctiva exam limited by poor cooperation should see optho upon d/c for symptoms Last 24 Hour Vital Signs Date Time Temp Pulse Resp B/P (MAP) Pulse Ox O2 Delivery O2 Flow Rate FiO2 01/24/19 09:00 Room Air 01/24/19 08:28 130/78 01/24/19 08:00 98.6 80 20 130/78 (95) 97 01/24/19 07:46 83 18 97 Room Air 21 01/24/19 04:00 98.3 77 24 135/80 (98) 95 01/24/19 00:00 98.0 84 22 150/81 (104) 95 01/23/19 21:00 Room Air 01/23/19 20:00 98.4 88 22 161/91 (114) 95 01/23/19 19:51 81 18 96 Room Air 21 01/23/19 16:30 97.0 73 18 165/97 (119) 98 01/23/19 12:00 98.3 76 20 131/71 (91) 96 01/23/19 12:00 75 Intake and Output 01/23/19 01/24/19 19:00 07:00 Intake Total 1400 ml 2335 ml Output Total 750 ml Balance 650 ml 2335 ml Intake Free Water 100 ml 300 ml IV Total 975 ml 1450 ml Tube Feeding 325 ml 585 ml Output Urine Total 750 ml # Bowel Movements 2 Laboratory Tests Test 01/23/19 15:50 01/24/19 05:48 Vancomycin Level Trough 6.8 ug/mL (5.0-12.0) White Blood Count 8.0 K/UL (4.8-10.8) Red Blood Count 2.96 M/UL (4.70-6.10) L Hemoglobin 9.0 G/DL (14.2-18.0) L Hematocrit 26.8 % (42.0-52.0) L Mean Corpuscular Volume 91 FL (80-99) Mean Corpuscular Hemoglobin 30.3 PG (27.0-31.0) Mean Corpuscular Hemoglobin Concent 33.5 G/DL (32.0-36.0) Red Cell Distribution Width 13.7 % (11.6-14.8) Platelet Count 233 K/UL (150-450) Mean Platelet Volume 6.9 FL (6.5-10.1) Neutrophils (%) (Auto) 60.4 % (45.0-75.0) Lymphocytes (%) (Auto) 27.6 % (20.0-45.0) Monocytes (%) (Auto) 7.7 % (1.0-10.0) Eosinophils (%) (Auto) 3.1 % (0.0-3.0) H Basophils (%) (Auto) 1.2 % (0.0-2.0) Sodium Level 143 MMOL/L (136-145) Potassium Level 3.1 MMOL/L (3.5-5.1) L Chloride Level 109 MMOL/L (98-107) H Carbon Dioxide Level 23 MMOL/L (21-32) Anion Gap 12 mmol/L (5-15) Blood Urea Nitrogen 7 mg/dL (7-18) Creatinine 0.6 MG/DL (0.55-1.30) Estimat Glomerular Filtration Rate mL/min (>60) Glucose Level 113 MG/DL (74-106) H Calcium Level 8.3 MG/DL (8.5-10.1) L Magnesium Level 1.6 MG/DL (1.8-2.4) L Height (Feet): 5 Height (Inches): 4.00 Weight (Pounds): 150 Medications Current Medications Medications (Trade) Dose Ordered Sig/Altagracia Route PRN Reason Start Time Stop Time Status Last Admin Dose Admin Acetaminophen (Tylenol) 650 mg Q4H PRN ORAL fever (temp>100.5F) 01/23/19 14:45 02/19/19 14:44 Albuterol/ Ipratropium (Albuterol/ Ipratropium) 3 ml Q4H PRN HHN Shortness of Breath 01/23/19 14:45 01/25/19 14:44 Cyanocobalamin (Vitamin B-12) 1,000 mcg DAILY GT 01/24/19 09:00 02/20/19 08:59 01/24/19 08:28 Dextrose (Dextrose 50%) 25 ml Q30M PRN IV Hypoglycemia 01/23/19 14:45 02/19/19 14:44 Dextrose (Dextrose 50%) 50 ml Q30M PRN IV Hypoglycemia 01/23/19 14:45 02/19/19 14:44 Ergocalciferol (Drisdol) 50,000 intlu ONCE A WEEK ORAL 01/24/19 09:00 02/23/19 08:59 Finasteride (Proscar) 5 mg DAILY ORAL 01/24/19 09:00 02/22/19 08:59 01/24/19 08:28 Hydralazine HCl (Apresoline) 25 mg Q4H PRN GT SBP greater than 160 01/23/19 21:30 02/22/19 21:29 Hydromorphone HCl (Dilaudid) 1 mg Q4H PRN IVP Moderate Pain (Pain Scale 4-6) 01/23/19 14:45 01/27/19 14:44 01/24/19 06:06 Hydromorphone HCl (Dilaudid) 2 mg Q4H PRN IVP Severe Pain (Pain Scale 7-10) 01/23/19 14:45 01/27/19 14:44 Lisinopril (Zestril) 10 mg DAILY ORAL 01/24/19 09:00 02/21/19 08:59 01/24/19 08:28 Ondansetron HCl (Zofran) 4 mg Q6H PRN IVP Nausea & Vomiting 01/23/19 14:45 02/19/19 14:44 Pantoprazole (Protonix) 40 mg DAILY IV 01/24/19 09:00 02/20/19 08:59 01/24/19 08:29 Piperacillin Sod/ Tazobactam Sod 3.375 gm/Dextrose 100 ml @ 25 mls/hr EVERY 8 HOURS IVPB 01/23/19 22:00 01/28/19 21:59 01/24/19 05:34 Potassium Chloride (K-Dur) 60 meq ONCE ORAL 01/24/19 09:30 01/24/19 11:00 01/24/19 10:05 Sodium Chloride 1,000 ml @ 150 mls/hr Q6H40M IVLG 01/23/19 15:00 02/19/19 14:59 01/24/19 05:34 Tamsulosin HCl (Flomax) 0.4 mg BEDTIME ORAL 01/23/19 21:00 02/21/19 20:59 01/23/19 21:03 Thiamine HCl (Vitamin B1) 100 mg DAILY ORAL 01/24/19 09:00 02/20/19 08:59 01/24/19 08:28 Assessment/Plan Assessment/Plan: If you have any of the following eye problems, dont wait for your next appointment visit your eye doctor as soon as possible: Decreased vision Draining or redness of the eye Eye pain Double vision Floaters (tiny specks that appear to float before your eyes) Circles (halos) around lights Flashes of light Individuals who develop diabetes mellitus type 1 should be examined by an anesthesiology physician 5 years after disease onset and at least yearly thereafter.13, 14 Individuals who develop diabetes mellitus type 2 should be examined at the time of diagnosis and at least yearly thereafter.15 Women with type 1 or type 2 diabetes should receive a comprehensive eye examination before conception and then early in the first trimester of . Recommended intervals for subsequent examinations depend upon the level of retinopathy.16-18 Adults with no signs or risk factors for eye disease should receive a baseline comprehensive eye evaluation at age 40.4 Individuals without risk factors aged 40 to 54 should be examined by an anesthesiology physician every 2 to 4 years. Individuals without risk factors aged 55 to 64 should be examined by an anesthesiology physician every 1 to 3 years.4, 5 Individuals without risk factors 65 years old or older should have an examination performed by an anesthesiology physician every 1 to 2 years as the incidence of unrecognized ocular disease increases with age.4, 5 The frequency of ocular examinations in the presence of acute or chronic disease will vary widely with intervals ranging from hours to several months, depending on the risks involved, response to treatment, and potential for the disease to progress. Any individual at higher risk for developing disease, based on ocular and medical history, family history, age, or race should have periodic examinations determined by the particular risks, even if no symptoms are present. A routine comprehensive annual adult eye examination in individuals under the age of 40 unnecessarily escalates the cost of eye care and is not indicated except as described above. Zoltan Couch MD Jan 24, 2019 10:56
[2019-01-24 11:52] VITALS: BP 136/84
--- NOTE | 2019-01-24 12:42 | Infectious Diseases Prog Note ---
Assessment/Plan Assessment/Plan ASSESSMENT AND PLAN: 1. possible sepsis, possible gram net uti, leukocytosis, ams - change to ceftriaxone x 5 days - if need oral antibiotic can change to bactrim po x 5 days - chest x-ray - negative - f/u on labs - leukocytosis resolved - clinically improved, more alert 2. The patient has anemia. 3. Hypertension, NB, BPH - tx per primary and urology 4. Dementia. 5. Dysphagia. 6. Aspiration risk. 7. Check followup chest x-ray. 8. Altered mental status, weakness 9. wound care per surgery and protocol - doubt sepsis source 10. No history of diabetes or cancer or cardiac disease. 11. No known drug allergies. 12. Social history is negative. 13. Family history is noncontributory. 14. MAR was noted. 15. Case was discussed with RN. 16. Case was discussed with Dr. Patterson. 17. vre colonization and isolation Subjective Constitutional: Denies: fever HEENT: Denies: congestion Respiratory: Denies: shortness of breath Cardiovascular: Denies: chest pain Gastrointestinal/Abdominal: Denies: nausea, vomiting, diarrhea Genitourinary: Reports: other - + duggan Neurologic: Reports: weakness, other - non-verbal Psychiatric: Reports: other - NA Skin: Denies: rash Hematologic: Denies: bleeding Musculoskeletal: Reports: other - NA Allergies: Coded Allergies: No Known Allergies (Unverified , 08/20/18) Objective Vital Signs Last 24 Hour Vital Signs Date Time Temp Pulse Resp B/P (MAP) Pulse Ox O2 Delivery O2 Flow Rate FiO2 01/24/19 11:52 98.7 83 18 136/84 (101) 98 01/24/19 09:00 Room Air 01/24/19 08:28 130/78 01/24/19 08:00 98.6 80 20 130/78 (95) 97 01/24/19 07:46 83 18 97 Room Air 01/24/19 04:00 98.3 77 24 135/80 (98) 95 01/24/19 00:00 98.0 84 22 150/81 (104) 95 01/23/19 21:00 Room Air 01/23/19 20:00 98.4 88 22 161/91 (114) 95 01/23/19 19:51 81 18 96 Room Air 01/23/19 16:30 97.0 73 18 165/97 (119) 98 Height (Feet): 5 Height (Inches): 4.00 Weight (Pounds): 150 General Appearance: no acute distress HEENT: normocephalic, atraumatic, anicteric Respiratory/Chest: lungs clear, normal breath sounds, no respiratory distress, no accessory muscle use Cardiovascular: normal rate, regular rhythm, no gallop/murmur, no JVD Abdomen: normal bowel sounds, soft, non tender, no organomegaly, non distended Genitourinary: other - + duggan - urine clear Extremities: no cyanosis Skin: no rash Neurologic/Psychiatric: custom shoemaker II-XII grossly normal, alert, responsive Lymphatic: no neck adenopathy Musculoskeletal: no effusion Objective Procedure: XRAY Chest 1v Indication: Dyspnea Chest x-ray - 01/22/19 - Comparison: 01/20/2019 A single view chest radiograph was obtained. Findings: Cardiomediastinal appearance is within normal limits for age. The lungs are clear. Pulmonary vascularity is appropriate. The diaphragmatic contour is smooth and costophrenic angles are sharp. No pleural effusions are identified. The bones are osteopenic. Impression: No acute findings Microbiology Date/Time Source Procedure Growth Status 01/20/19 14:45 Blood Blood Culture - Preliminary NO GROWTH AFTER 72 HOURS Resulted 01/20/19 15:30 Nasal Nares MRSA Culture - Final NO METHICILLIN RESISTANT STAPH AUREUS... Complete 01/20/19 14:45 Urine,Clean Catch Urine Culture - Final Providencia Stuartii Complete 01/20/19 15:30 Rectum - Final NO CARBAPENEM-RESISTANT ENTEROBACTERI... Complete Laboratory Tests Test 01/23/19 15:50 01/24/19 05:48 Vancomycin Level Trough 6.8 ug/mL (5.0-12.0) White Blood Count 8.0 K/UL (4.8-10.8) Red Blood Count 2.96 M/UL (4.70-6.10) L Hemoglobin 9.0 G/DL (14.2-18.0) L Hematocrit 26.8 % (42.0-52.0) L Mean Corpuscular Volume 91 FL (80-99) Mean Corpuscular Hemoglobin 30.3 PG (27.0-31.0) Mean Corpuscular Hemoglobin Concent 33.5 G/DL (32.0-36.0) Red Cell Distribution Width 13.7 % (11.6-14.8) Platelet Count 233 K/UL (150-450) Mean Platelet Volume 6.9 FL (6.5-10.1) Neutrophils (%) (Auto) 60.4 % (45.0-75.0) Lymphocytes (%) (Auto) 27.6 % (20.0-45.0) Monocytes (%) (Auto) 7.7 % (1.0-10.0) Eosinophils (%) (Auto) 3.1 % (0.0-3.0) H Basophils (%) (Auto) 1.2 % (0.0-2.0) Sodium Level 143 MMOL/L (136-145) Potassium Level 3.1 MMOL/L (3.5-5.1) L Chloride Level 109 MMOL/L (98-107) H Carbon Dioxide Level 23 MMOL/L (21-32) Anion Gap 12 mmol/L (5-15) Blood Urea Nitrogen 7 mg/dL (7-18) Creatinine 0.6 MG/DL (0.55-1.30) Estimat Glomerular Filtration Rate mL/min (>60) Glucose Level 113 MG/DL (74-106) H Calcium Level 8.3 MG/DL (8.5-10.1) L Magnesium Level 1.6 MG/DL (1.8-2.4) L Current Medications Medications (Trade) Dose Ordered Sig/Altagracia Route PRN Reason Start Time Stop Time Status Last Admin Dose Admin Acetaminophen (Tylenol) 650 mg Q4H PRN ORAL fever (temp>100.5F) 01/23/19 14:45 02/19/19 14:44 Albuterol/ Ipratropium (Albuterol/ Ipratropium) 3 ml Q4H PRN HHN Shortness of Breath 01/23/19 14:45 01/25/19 14:44 Cyanocobalamin (Vitamin B-12) 1,000 mcg DAILY GT 01/24/19 09:00 02/20/19 08:59 01/24/19 08:28 Dextrose (Dextrose 50%) 25 ml Q30M PRN IV Hypoglycemia 01/23/19 14:45 02/19/19 14:44 Dextrose (Dextrose 50%) 50 ml Q30M PRN IV Hypoglycemia 01/23/19 14:45 02/19/19 14:44 Ergocalciferol (Drisdol) 50,000 intlu ONCE A WEEK ORAL 01/24/19 09:00 02/23/19 08:59 Finasteride (Proscar) 5 mg DAILY ORAL 01/24/19 09:00 02/22/19 08:59 01/24/19 08:28 Hydralazine HCl (Apresoline) 25 mg Q4H PRN GT SBP greater than 160 01/23/19 21:30 02/22/19 21:29 Hydromorphone HCl (Dilaudid) 1 mg Q4H PRN IVP Moderate Pain (Pain Scale 4-6) 01/23/19 14:45 01/27/19 14:44 01/24/19 06:06 Hydromorphone HCl (Dilaudid) 2 mg Q4H PRN IVP Severe Pain (Pain Scale 7-10) 01/23/19 14:45 01/27/19 14:44 Lisinopril (Zestril) 10 mg DAILY ORAL 01/24/19 09:00 02/21/19 08:59 01/24/19 08:28 Ondansetron HCl (Zofran) 4 mg Q6H PRN IVP Nausea & Vomiting 01/23/19 14:45 02/19/19 14:44 Pantoprazole (Protonix) 40 mg DAILY IV 01/24/19 09:00 02/20/19 08:59 01/24/19 08:29 Piperacillin Sod/ Tazobactam Sod 3.375 gm/Dextrose 100 ml @ 25 mls/hr EVERY 8 HOURS IVPB 01/23/19 22:00 01/28/19 21:59 01/24/19 05:34 Sodium Chloride 1,000 ml @ 150 mls/hr Q6H40M IVLG 01/23/19 15:00 02/19/19 14:59 01/24/19 05:34 Tamsulosin HCl (Flomax) 0.4 mg BEDTIME ORAL 01/23/19 21:00 02/21/19 20:59 01/23/19 21:03 Thiamine HCl (Vitamin B1) 100 mg DAILY ORAL 01/24/19 09:00 02/20/19 08:59 01/24/19 08:28 Bonny iRncon MD Jan 24, 2019 12:42
--- NOTE | 2019-01-24 13:28 | Surgery Progress Note ---
Surgery Progress Note Subjective Additional Comments no acute events comfortable and stable appearing tolerating feeds labs improved great nursing care noted Objective Last 24 Hour Vital Signs Date Time Temp Pulse Resp B/P (MAP) Pulse Ox O2 Delivery O2 Flow Rate FiO2 01/24/19 11:52 98.7 83 18 136/84 (101) 98 01/24/19 09:00 Room Air 01/24/19 08:28 130/78 01/24/19 08:00 98.6 80 20 130/78 (95) 97 01/24/19 07:46 83 18 97 Room Air 21 01/24/19 04:00 98.3 77 24 135/80 (98) 95 01/24/19 00:00 98.0 84 22 150/81 (104) 95 01/23/19 21:00 Room Air 01/23/19 20:00 98.4 88 22 161/91 (114) 95 01/23/19 19:51 81 18 96 Room Air 21 01/23/19 16:30 97.0 73 18 165/97 (119) 98 I&O Intake and Output 01/23/19 01/24/19 19:00 07:00 Intake Total 1400 ml 2335 ml Output Total 750 ml Balance 650 ml 2335 ml Intake Free Water 100 ml 300 ml IV Total 975 ml 1450 ml Tube Feeding 325 ml 585 ml Output Urine Total 750 ml # Bowel Movements 2 Dressing: dry Wound: clean Cardiovascular: RSR Respiratory: clear, decreased breath sounds Abdomen: soft, present bowel sounds, non-distended Extremities: no cyanosis Laboratory Tests Test 01/23/19 15:50 01/24/19 05:48 Vancomycin Level Trough 6.8 ug/mL (5.0-12.0) White Blood Count 8.0 K/UL (4.8-10.8) Red Blood Count 2.96 M/UL (4.70-6.10) L Hemoglobin 9.0 G/DL (14.2-18.0) L Hematocrit 26.8 % (42.0-52.0) L Mean Corpuscular Volume 91 FL (80-99) Mean Corpuscular Hemoglobin 30.3 PG (27.0-31.0) Mean Corpuscular Hemoglobin Concent 33.5 G/DL (32.0-36.0) Red Cell Distribution Width 13.7 % (11.6-14.8) Platelet Count 233 K/UL (150-450) Mean Platelet Volume 6.9 FL (6.5-10.1) Neutrophils (%) (Auto) 60.4 % (45.0-75.0) Lymphocytes (%) (Auto) 27.6 % (20.0-45.0) Monocytes (%) (Auto) 7.7 % (1.0-10.0) Eosinophils (%) (Auto) 3.1 % (0.0-3.0) H Basophils (%) (Auto) 1.2 % (0.0-2.0) Sodium Level 143 MMOL/L (136-145) Potassium Level 3.1 MMOL/L (3.5-5.1) L Chloride Level 109 MMOL/L (98-107) H Carbon Dioxide Level 23 MMOL/L (21-32) Anion Gap 12 mmol/L (5-15) Blood Urea Nitrogen 7 mg/dL (7-18) Creatinine 0.6 MG/DL (0.55-1.30) Estimat Glomerular Filtration Rate mL/min (>60) Glucose Level 113 MG/DL (74-106) H Calcium Level 8.3 MG/DL (8.5-10.1) L Magnesium Level 1.6 MG/DL (1.8-2.4) L Plan Problems: (1) Decubitus skin ulcer Assessment & Plan: Pt presented on admission with contractures. Pressure injuries to R and L foot ,non-blanching erythema sacrum. Lateral L heel erythematous and non-blanching. Base of wound is fluctuant. Periwound is also non-blanching and soft.(L)2.5cm x (W)3cm. Non-blanching erythema without fluctuance R hallux.(L)1.9cm x (W)2cm. DTPI noted to distal/lateral R foot including Lateral R metatarsal. Reabsorbing blood blister noted with erythematous margins. (L)4.8cm x (W)3.5cm. Tx.Plan: Apply Moisture Barrier Paste to sacrum. Cover with Optifoam drsg. Change every 3 days and prn. Apply Cavilon Skin Barrier to bony prominences both shoulders, both trochanteric and malleoli both feet. Cover each site with Optifoam drsgs. Change very 7 days and prn. Swab Lateral R foot with Betadine. Cover with Optifoam drsg. Change every 3 days and prn. Apply Cavilon to both heels. Cover each heel with Optifoam drsg. Change every 7 days and prn. APM/RAVINDER Mattress overlay. Reposition at least every 2hours or as tolerated. Place pillow between knees. Off-load heels with pillow. (2) Sepsis Assessment & Plan: Cont tube feeds IV abx as per ID wound care as above labs improved will monitor and follow with recs sepsis likely from UTI and not wounds improving (3) Failure to thrive syndrome, adult Assessment & Plan: DAILY ESTIMATED NEEDS: Needs based on Wt loss, wasting/ 48.2kg 30-35 kcals/kg 7832-7985 total kcals 1-1.5 g protein/kg 48-72 g total protein 25-30 mL/kg 9089-7278 total fluid mLs NUTRITION DIAGNOSIS: * Swallowing difficulty R/T dysphagia as evidenced by pt is PEG dep. * Increased kcal/prot intake needs R/T wt loss and wasting as evidenced by pt admitted w/ possible severe wt loss of 20lbs/15.8% in 5 months, pt @ 85% IBW. 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
--- NOTE | 2019-01-24 13:48 | NUR ---
CASE MANAGEMENT: REVIEW 01/24/19 SI: UTI; SEPSIS; FAILURE TO THRIVE; DEHYDRATION 98.6 80 20 130/78 97% ON RA K+ 3.1; CA+ 8.3; MG 1.6; RBC 2.96; H/H 9.0/26.8 IS: IV CEFTRIAXONE QD IV ZOSYN- STOP TODAY K-DUR PO X1 IVF NS @150ML/HR IV PROTONIX QD PROSCAR PO QD LISINOPRIL PO QD FLOMAX PO HS DCP: RETURN TO [facility] PLAN: VOIDING TRAILS POSS DC IN AM
[2019-01-24] MEDS: cefTRIAXone 1 GM in D5W 50 ML IVPB SCH (14:00)
[2019-01-24 16:00] VITALS: BP 135/82
[2019-01-24] MEDS ORDERED: NS 275ml ONE (16:24)
[2019-01-24] MEDS ORDERED: Tubing IV Secondary IV ONE (16:24)
--- NOTE | 2019-01-24 19:26 | NUR ---
NURSE NOTES: Received report from ANTOINETTE Leon. Patient asleep. Breathing unlabored on room air without distress. No s/s of pain noted. IV noted on left hand intact and patent running NS at 150cc/hr. Gtube feeding running glucerna 1.2 at 65 cc/hr without residual. Manriquez intact draining urine, anchor secured on the left thigh. Bed placed at the lowest with alarm, brake, and siderails up for safety. Call light placed within reach. Will continue to monitor and provide care as ordered.
[2019-01-24 20:00] VITALS: BP 128/83
[2019-01-24] MEDS: Tamsulosin 0.4mg cap ORAL SCH (20:50)
[2019-01-25] VITALS: BP_SYST 101; BP_SYST 131; BP_DIAS 59; BP_DIAS 63
[2019-01-25 04:00] VITALS: BP 140/77
--- NOTE | 2019-01-25 04:30 | NUR ---
NURSE NOTES: Previous swelling noted on left hand present without change. Stopped IV infusion on left hand and placed new 22g IV on the right forearm. Explained procedure prior and during procedure. Patient tolerated well. New IV site intact, dry, and patent. Ordered IV fluid connected to new IV site. Attempted to elevate left hand to reduce the swelling. Will continue to monitor the patient.
--- NOTE | 2019-01-25 05:41 | NUR ---
NURSE NOTES: Tolerated gtube feeding well without residual. Pt had BM x 2 during the shift. Sacral dressing and right heel dressing soiled and changed x2. Cleaned patient and linens changed. Will continue to monitor.
[2019-01-25 07:27] LABS: BASOPHILS % (AUTO) 1.4 % (0.0-2.0); EOSINOPHILS % (AUTO) 3.8 % (0.0-3.0); HEMATOCRIT 25.1 % (42.0-52.0); HEMOGLOBIN 8.3 G/DL (14.2-18.0); LYMPHOCYTES % (AUTO) 34.2 % (20.0-45.0); MEAN CORPUSCULAR VOLUME 91 FL (80-99); MONOCYTES % (AUTO) 8.9 % (1.0-10.0); NEUTROPHILS % (AUTO) 51.8 % (45.0-75.0); PLATELET COUNT 266 K/UL (150-450); RED BLOOD COUNT 2.77 M/UL (4.70-6.10); RED CELL DISTRIBUTION WIDTH 14.2 % (11.6-14.8); WHITE BLOOD COUNT 7.6 K/UL (4.8-10.8)
--- NOTE | 2019-01-25 07:39 | NUR ---
HAND-OFF: Report given to ANTOINETTE Chowdhury.
[2019-01-25 07:50] LABS: ANION GAP 8 mmol/L (5-15); BLOOD UREA NITROGEN 8 mg/dL (7-18); CALCIUM 8.5 MG/DL (8.5-10.1); CARBON DIOXIDE 25 MMOL/L (21-32); CHLORIDE 110 MMOL/L (98-107); CREATININE 0.6 MG/DL (0.55-1.30); POTASSIUM 3.7 MMOL/L (3.5-5.1); SODIUM 143 MMOL/L (136-145)
--- NOTE | 2019-01-25 07:52 | NUR ---
NURSE NOTES: Received pt in bed, sleeping. No s/s of distress/pain. IV on FA 22g intact and patent, running NS @ 150. G-tube feeding going in at 65 ml/hr. Side rails x 2. Bed in the lowest, locked, and alarm on. Call light within reach. Will continue to monitor
[2019-01-25 08:00] VITALS: BP 128/83
[2019-01-25] MEDS: Vitamin B-12 500mcg tab GT SCH (09:42)
[2019-01-25] MEDS: Thiamine 100mg tab ORAL SCH (09:44)
[2019-01-25] MEDS: Lisinopril 10mg tab ORAL SCH (09:46)
[2019-01-25] MEDS: Pantoprazole Inj IV SCH (10:11)
[2019-01-25] MEDS: cefTRIAXone 1 GM in D5W 50 ML IVPB SCH (10:12)
--- NOTE | 2019-01-25 10:47 | Infectious Diseases Prog Note ---
Assessment/Plan Assessment/Plan ASSESSMENT AND PLAN: 1. possible sepsis, possible gram net uti, leukocytosis, ams - change to ceftriaxone x 4 days - if need oral antibiotic can change to bactrim po x 5 days - chest x-ray - negative - f/u on labs - leukocytosis resolved - clinically improved, more alert 2. The patient has anemia. 3. Hypertension, NB, BPH - tx per primary and urology 4. Dementia. 5. Dysphagia. 6. Aspiration risk. 7. Check followup chest x-ray. 8. Altered mental status, weakness 9. wound care per surgery and protocol - doubt sepsis source 10. No history of diabetes or cancer or cardiac disease. 11. No known drug allergies. 12. Social history is negative. 13. Family history is noncontributory. 14. MAR was noted. 15. Case was discussed with RN. 16. Case was discussed with Dr. Patterson. 17. vre colonization and isolation Subjective Constitutional: Denies: fever HEENT: Denies: congestion Respiratory: Denies: shortness of breath Gastrointestinal/Abdominal: Denies: nausea, vomiting, diarrhea Allergies: Coded Allergies: No Known Allergies (Unverified , 08/20/18) Objective Vital Signs Last 24 Hour Vital Signs Date Time Temp Pulse Resp B/P (MAP) Pulse Ox O2 Delivery O2 Flow Rate FiO2 01/25/19 09:46 137/82 01/25/19 09:00 Room Air 01/25/19 08:18 97 17 98 Room Air 21 01/25/19 08:00 99.7 99 19 128/83 (98) 98 01/25/19 04:00 98.6 90 18 140/77 (98) 99 01/25/19 00:00 98.7 82 20 101/59 (73) 96 01/24/19 21:55 81 18 98 Room Air 21 01/24/19 21:00 Room Air 01/24/19 20:00 99.3 99 18 128/83 (98) 97 01/24/19 16:00 97.0 91 20 135/82 (99) 95 01/24/19 11:52 98.7 83 18 136/84 (101) 98 Height (Feet): 5 Height (Inches): 4.00 Weight (Pounds): 150 General Appearance: WD/WN HEENT: normocephalic, atraumatic, anicteric Respiratory/Chest: normal breath sounds, no respiratory distress, no accessory muscle use Cardiovascular: normal rate, regular rhythm Abdomen: normal bowel sounds, soft, non tender, no organomegaly Objective Procedure: XRAY Chest 1v Indication: Dyspnea Chest x-ray - 01/22/19 - Comparison: 01/20/2019 A single view chest radiograph was obtained. Findings: Cardiomediastinal appearance is within normal limits for age. The lungs are clear. Pulmonary vascularity is appropriate. The diaphragmatic contour is smooth and costophrenic angles are sharp. No pleural effusions are identified. The bones are osteopenic. Impression: No acute findings Microbiology Date/Time Source Procedure Growth Status 01/24/19 15:45 Stool Clostridium difficile Toxin Assay - Final Complete Laboratory Tests Test 01/25/19 05:40 White Blood Count 7.6 K/UL (4.8-10.8) Red Blood Count 2.77 M/UL (4.70-6.10) L Hemoglobin 8.3 G/DL (14.2-18.0) L Hematocrit 25.1 % (42.0-52.0) L Mean Corpuscular Volume 91 FL (80-99) Mean Corpuscular Hemoglobin 30.0 PG (27.0-31.0) Mean Corpuscular Hemoglobin Concent 33.0 G/DL (32.0-36.0) Red Cell Distribution Width 14.2 % (11.6-14.8) Platelet Count 266 K/UL (150-450) Mean Platelet Volume 6.2 FL (6.5-10.1) L Neutrophils (%) (Auto) 51.8 % (45.0-75.0) Lymphocytes (%) (Auto) 34.2 % (20.0-45.0) Monocytes (%) (Auto) 8.9 % (1.0-10.0) Eosinophils (%) (Auto) 3.8 % (0.0-3.0) H Basophils (%) (Auto) 1.4 % (0.0-2.0) Sodium Level 143 MMOL/L (136-145) Potassium Level 3.7 MMOL/L (3.5-5.1) Chloride Level 110 MMOL/L (98-107) H Carbon Dioxide Level 25 MMOL/L (21-32) Anion Gap 8 mmol/L (5-15) Blood Urea Nitrogen 8 mg/dL (7-18) Creatinine 0.6 MG/DL (0.55-1.30) Estimat Glomerular Filtration Rate mL/min (>60) Glucose Level 101 MG/DL (74-106) Calcium Level 8.5 MG/DL (8.5-10.1) Current Medications Medications (Trade) Dose Ordered Sig/Altagracia Route PRN Reason Start Time Stop Time Status Last Admin Dose Admin Acetaminophen (Tylenol) 650 mg Q4H PRN ORAL fever (temp>100.5F) 01/23/19 14:45 02/19/19 14:44 Albuterol/ Ipratropium (Albuterol/ Ipratropium) 3 ml Q4H PRN HHN Shortness of Breath 01/23/19 14:45 01/25/19 14:44 Ceftriaxone Sodium 1 gm/ Dextrose 50 ml @ 100 mls/hr DAILY IVPB 01/24/19 14:00 01/31/19 13:59 01/25/19 10:12 Cyanocobalamin (Vitamin B-12) 1,000 mcg DAILY GT 01/24/19 09:00 02/20/19 08:59 01/25/19 09:42 Dextrose (Dextrose 50%) 25 ml Q30M PRN IV Hypoglycemia 01/23/19 14:45 02/19/19 14:44 Dextrose (Dextrose 50%) 50 ml Q30M PRN IV Hypoglycemia 01/23/19 14:45 02/19/19 14:44 Ergocalciferol (Drisdol) 50,000 intlu ONCE A WEEK ORAL 01/24/19 09:00 02/23/19 08:59 Finasteride (Proscar) 5 mg DAILY ORAL 01/24/19 09:00 02/22/19 08:59 01/25/19 09:43 Hydralazine HCl (Apresoline) 25 mg Q4H PRN GT SBP greater than 160 01/23/19 21:30 02/22/19 21:29 Hydromorphone HCl (Dilaudid) 1 mg Q4H PRN IVP Moderate Pain (Pain Scale 4-6) 01/23/19 14:45 01/27/19 14:44 01/24/19 06:06 Hydromorphone HCl (Dilaudid) 2 mg Q4H PRN IVP Severe Pain (Pain Scale 7-10) 01/23/19 14:45 01/27/19 14:44 Lisinopril (Zestril) 10 mg DAILY ORAL 01/24/19 09:00 02/21/19 08:59 01/25/19 09:46 Ondansetron HCl (Zofran) 4 mg Q6H PRN IVP Nausea & Vomiting 01/23/19 14:45 02/19/19 14:44 Pantoprazole (Protonix) 40 mg DAILY IV 01/24/19 09:00 02/20/19 08:59 01/25/19 10:11 Sodium Chloride 1,000 ml @ 150 mls/hr Q6H40M IVLG 01/23/19 15:00 02/19/19 14:59 01/25/19 06:18 Tamsulosin HCl (Flomax) 0.4 mg BEDTIME ORAL 01/23/19 21:00 02/21/19 20:59 01/24/19 20:50 Thiamine HCl (Vitamin B1) 100 mg DAILY ORAL 01/24/19 09:00 02/20/19 08:59 01/25/19 09:44 Bonny Rincon MD Jan 25, 2019 10:47
[2019-01-25] MEDS ORDERED: FLOMAX0.4 MG ORAL (10:55)
[2019-01-25] MEDS ORDERED: FINASTERIDE5 MG ORAL (10:55)
[2019-01-25] MEDS ORDERED: CEFTRIAXONE1 G2 IVPB (10:55)
--- NOTE | 2019-01-25 10:56 | Discharge Instructions ---
Discharge Instructions Discharge Instructions Special Instructions Continue IV ceftriaxone 1g daily for 5 more days per ID recommendations to finish UTI treatment. For Surgical Patients Dressing Care: keep dry and clean For Congestive Heart Failure Reminder Report to your physician any weight gain of 5 pounds or more in one week. Kameron Patterson M.D. Jan 25, 2019 10:56
--- NOTE | 2019-01-25 11:03 | Discharge Summary ---
Discharge Summary Hospital Course Date of Admission Jan 20, 2019 at 14:22 Date of Discharge 01/25/2019 Admitting Diagnosis SEPSIS HPI Cliff Saldana is a 73 year old male who was admitted on Jan 20, 2019 at 14 :22 for Sepsis Consultations General surgery: Dr. Guy for wound management. ID: Dr. Torres for UTI and sepsis. Urology: Dr. Savage for hematuria Procedures duggan catheter, telemetry Hospital Course Cliff Saldana is a 73 yo man with PMH of advanced dementia (bedbound, nonverbal, PEG dependent at baseline), dysphagia s/p PEG, HTN, depression, anemia of chronic disease, depression, and bilateral pressure ulcers in heels who presented from rehab facility [facility] for leukocytosis 21.7 and fever of 102 and hematuria #Sepsis secondary to UTI #? UTI, gorss hematuria, urinary retention, bph, probably neurogenic bladder, proteinuria, bladder calculi -s/p IV Zosyn, s/p Vancomycin, now on IV ceftriaxone. to finish 5 more days -s/p sepsis dose IV fluids -Cultures- urine culture:Providencia stuartii- <100k sensitive to Ceftriaxone -ID: Dr. Torres -Urology consult appreciated, continue duggan, irrigation prn, needs outpatient cystoscopy. Voiding trial today #Advance dementia- bed bound, PEG dependent #Depression #Anemia of chronic disease- stable #Acute blood loss anemia- hematuria- stable -monitor H/H, transfuse to keep hgb>7 #Bilateral pressure ulcers heels wound consult Gen surg consult #Hx of HTN -Lisinopril, hydralazine prn for sbp > 160 vte ppx: heparin- however hold due to hematuria, place scd boots Gi ppx: ppi code: full I spent 35 minutes during this encounter, >50 spent on counselling and care coordination. case d/w rn, d/w ID time of this note may not reflect time of encounter. Discharge Medications New Medications: Ceftriaxone Sodium (Ceftriaxone) 1 Gm Vial.port 1 GM IVPB DAILY for 5 Days, #5 VIAL Finasteride (Finasteride) 5 Mg Tablet 5 MG ORAL DAILY for 30 Days, #30 TAB Tamsulosin HCl (Flomax) 0.4 Mg Cap.er.24h 0.4 MG ORAL BEDTIME for 30 Days, #30 CAP Continued Medications: Acetaminophen (Acetaminophen) 650 Mg Supp.rect 650 MG RC Q6HR PRN for FEVER, SUPP 0 Refills Chlorpromazine (Chlorpromazine HCl) 25 Mg Tablet 25 MG GT EVERY 8 HOURS PRN for HICCUPS, TAB Cyanocobalamin (Vitamin B-12) (Vitamin B-12) 1,000 Mcg Tablet 1000 MCG GT DAILY, TAB Ergocalciferol (Vitamin D2)* (Vitamin D*) 50,000 Unit Capsule [id number] UNIT GT ONCE A WEEK, CAP Hydralazine Hcl* (Hydralazine Hcl*) 25 Mg Tablet 25 MG GT EVERY 6 HOURS PRN for SBP > 160, TAB 0 Refills Lisinopril* (Lisinopril*) 10 Mg Tablet 10 MG GT DAILY, TAB Ondansetron* (Zofran*) 4 Mg Tablet 4 MG GT Q6H PRN for Nausea & Vomiting, TAB Pantoprazole Sodium (Protonix) 40 Mg Granpkt.dr 40 MG GT DAILY for 60 Days, PKT Thiamine Hcl* (Vitamin B-1*) 100 Mg Tablet 100 MG GT DAILY, #30 TAB 0 Refills Tramadol Hcl* (Ultram*) 50 Mg Tablet 50 MG GT DAILY PRN for For Pain, #10 TAB 0 Refills Discontinued Medications: Cephalexin* (Keflex*) 250 Mg Capsule 250 MG GT EVERY 6 HOURS, CAP FOR 7 DAYS (INDICATED UNTIL 01/26/2019) Discharge Condition Upon Discharge: stable Discharge Disposition Patient was discharged to rehab of [facility] Discharge Diagnoses: (1) Sepsis (2) UTI (urinary tract infection) (3) Decubitus skin ulcer (4) Hematuria (5) Urinary retention (6) Bladder calculi (7) Hypertension Discharge Instructions For Surgical Patients Dressing Care: keep dry and clean Kameron Patterson M.D. Jan 25, 2019 11:03
[2019-01-25 12:00] VITALS: BP 139/61
--- NOTE | 2019-01-25 13:24 | Urology Progress Note ---
Assessment/Plan Status: stable Assessment/Plan: 1. Gross hematuria, which is improved. 2. Urinary retention. 3. BPH. 4. Probable neurogenic bladder. 5. UTI. 6. Proteinuria. 7. Renal cyst. 8. Bladder calculi. 9. Possible cystitis. maintain duggan hand irrigate PRN cath secured to pt's leg abx as ordered flomax and proscar added voiding trial at some point? cysto later, prob as outpt f/u on blood cx Subjective Allergies: Coded Allergies: No Known Allergies (Unverified , 08/20/18) Subjective all noted, looks comfortable, dc planning Objective Last 24 Hour Vital Signs Date Time Temp Pulse Resp B/P (MAP) Pulse Ox O2 Delivery O2 Flow Rate FiO2 01/25/19 09:46 137/82 01/25/19 09:00 Room Air 01/25/19 08:18 97 17 98 Room Air 21 01/25/19 08:00 99.7 99 19 128/83 (98) 98 01/25/19 04:00 98.6 90 18 140/77 (98) 99 01/25/19 00:00 98.7 82 20 101/59 (73) 96 01/24/19 21:55 81 18 98 Room Air 21 01/24/19 21:00 Room Air 01/24/19 20:00 99.3 99 18 128/83 (98) 97 01/24/19 16:00 97.0 91 20 135/82 (99) 95 Intake and Output 01/24/19 01/25/19 19:00 07:00 Intake Total 2865 ml 2715 ml Output Total 1750 ml Balance 2865 ml 965 ml Intake Free Water 300 ml 200 ml IV Total 1850 ml 1800 ml Tube Feeding 715 ml 715 ml Output Urine Total 1750 ml # Bowel Movements 1 2 Microbiology Date/Time Source Procedure Growth Status 01/20/19 14:45 Blood Blood Culture - Preliminary NO GROWTH AFTER 4 DAYS Resulted 01/20/19 15:30 Nasal Nares MRSA Culture - Final NO METHICILLIN RESISTANT STAPH AUREUS... Complete 01/24/19 15:45 Stool Clostridium difficile Toxin Assay - Final Complete 01/20/19 14:45 Urine,Clean Catch Urine Culture - Final Providencia Stuartii Complete 01/20/19 15:30 Rectum - Final NO CARBAPENEM-RESISTANT ENTEROBACTERI... Complete Current Medications Medications (Trade) Dose Ordered Sig/Altagracia Route PRN Reason Start Time Stop Time Status Last Admin Dose Admin Acetaminophen (Tylenol) 650 mg Q4H PRN ORAL fever (temp>100.5F) 01/23/19 14:45 02/19/19 14:44 Albuterol/ Ipratropium (Albuterol/ Ipratropium) 3 ml Q4H PRN HHN Shortness of Breath 01/23/19 14:45 01/25/19 14:44 Ceftriaxone Sodium 1 gm/ Dextrose 50 ml @ 100 mls/hr DAILY IVPB 01/24/19 14:00 01/31/19 13:59 01/25/19 10:12 Cyanocobalamin (Vitamin B-12) 1,000 mcg DAILY GT 01/24/19 09:00 02/20/19 08:59 01/25/19 09:42 Dextrose (Dextrose 50%) 25 ml Q30M PRN IV Hypoglycemia 01/23/19 14:45 02/19/19 14:44 Dextrose (Dextrose 50%) 50 ml Q30M PRN IV Hypoglycemia 01/23/19 14:45 02/19/19 14:44 Ergocalciferol (Drisdol) 50,000 intlu ONCE A WEEK ORAL 01/24/19 09:00 02/23/19 08:59 Finasteride (Proscar) 5 mg DAILY ORAL 01/24/19 09:00 02/22/19 08:59 01/25/19 09:43 Hydralazine HCl (Apresoline) 25 mg Q4H PRN GT SBP greater than 160 01/23/19 21:30 02/22/19 21:29 Hydromorphone HCl (Dilaudid) 1 mg Q4H PRN IVP Moderate Pain (Pain Scale 4-6) 01/23/19 14:45 01/27/19 14:44 01/24/19 06:06 Hydromorphone HCl (Dilaudid) 2 mg Q4H PRN IVP Severe Pain (Pain Scale 7-10) 01/23/19 14:45 01/27/19 14:44 Lisinopril (Zestril) 10 mg DAILY ORAL 01/24/19 09:00 02/21/19 08:59 01/25/19 09:46 Loperamide HCl (Imodium) 2 mg Q6H PRN NG Diarrhea 01/25/19 11:30 02/24/19 11:29 01/25/19 11:51 Ondansetron HCl (Zofran) 4 mg Q6H PRN IVP Nausea & Vomiting 01/23/19 14:45 02/19/19 14:44 Pantoprazole (Protonix) 40 mg DAILY IV 01/24/19 09:00 02/20/19 08:59 01/25/19 10:11 Sodium Chloride 1,000 ml @ 150 mls/hr Q6H40M IVLG 01/23/19 15:00 02/19/19 14:59 01/25/19 06:18 Tamsulosin HCl (Flomax) 0.4 mg BEDTIME ORAL 01/23/19 21:00 02/21/19 20:59 01/24/19 20:50 Thiamine HCl (Vitamin B1) 100 mg DAILY ORAL 01/24/19 09:00 02/20/19 08:59 01/25/19 09:44 Laboratory Tests 01/25/19 05:40: White Blood Count 7.6, Red Blood Count 2.77L, Hemoglobin 8.3L, Hematocrit 25.1L , Mean Corpuscular Volume 91, Mean Corpuscular Hemoglobin 30.0, Mean Corpuscular Hemoglobin Concent 33.0, Red Cell Distribution Width 14.2, Platelet Count 266, Mean Platelet Volume 6.2L, Neutrophils (%) (Auto) 51.8, Lymphocytes ( %) (Auto) 34.2, Monocytes (%) (Auto) 8.9, Eosinophils (%) (Auto) 3.8H, Basophils (%) (Auto) 1.4, Sodium Level 143, Potassium Level 3.7, Chloride Level 110H, Carbon Dioxide Level 25, Anion Gap 8, Blood Urea Nitrogen 8, Creatinine 0.6, Estimat Glomerular Filtration Rate , Glucose Level 101, Calcium Level 8.5 Height (Feet): 5 Height (Inches): 4.00 Weight (Pounds): 150 Objective exam stable duggan indwelling, urine grossly yellow BamshadDurga MD Jan 25, 2019 13:24
--- NOTE | 2019-01-25 13:27 | NUR ---
DISCHARGED PLANNED: DISCUSSED DISCHARGE WITH MD PATIENT RETURNING TO [facility] T: [phone] FOR NURSE TO NURSE REPORT [facility] PICKUP TIME @1530 NOTIFIED KIARA (EMERGENCY CONTACT/ FAMILY) OF RETURN T: [phone]
--- NOTE | 2019-01-25 14:04 | NUR ---
RD ASSESSMENT & RECOMMENDATIONS SEE CARE ACTIVITY FOR COMPLETE ASSESSMENT DAILY ESTIMATED NEEDS: Needs based on Wt loss, wasting, sepsis/ 48.2kg 30-35 kcals/kg 8768-5546 total kcals 1.25-2 g protein/kg 60-96 g total protein 25-30 mL/kg 7843-0260 total fluid mLs NUTRITION DIAGNOSIS: * Swallowing difficulty R/T dysphagia as evidenced by pt is PEG dep. * Increased kcal/prot intake needs R/T wt loss and wasting as evidenced by pt admitted w/ possible severe wt loss of 20lbs/15.8% in 5 months, pt @ 85% IBW. CURRENT TF:Glucerna 1.2 @65ml/hr ENTERAL NUTRITION RECOMMENDATIONS: Glucerna 1.2 @ 55ml/hr x 24 hrs to provide 1320ml, 1584kcal, 79g prot, 1063ml free water * LOWER Glucerna 1.2 to goal of 55ml/hr x24 hrs * HOB over 30 degrees/ water flush per MD ADDITIONAL RECOMMENDATIONS: * Calibrated bedscale wt -> bedscale wt of 106lbs vs EMR wt of 150lbs -> rec daily wt monitoring given possible recent wt loss * Check F/up A1C-> A1C 6.3 (09/10/18) * Monitor lytes w/ TF, replete as needed (Low Mg 1.6) .
--- NOTE | 2019-01-25 14:35 | Surgery Progress Note ---
Surgery Progress Note Subjective Additional Comments no acute events comfortable stable exam unchanged more awake today Objective Last 24 Hour Vital Signs Date Time Temp Pulse Resp B/P (MAP) Pulse Ox O2 Delivery O2 Flow Rate FiO2 01/25/19 12:00 97.6 95 16 139/61 (87) 99 01/25/19 09:46 137/82 01/25/19 09:00 Room Air 01/25/19 08:18 97 17 98 Room Air 21 01/25/19 08:00 99.7 99 19 128/83 (98) 98 01/25/19 04:00 98.6 90 18 140/77 (98) 99 01/25/19 00:00 98.7 82 20 101/59 (73) 96 01/24/19 21:55 81 18 98 Room Air 21 01/24/19 21:00 Room Air 01/24/19 20:00 99.3 99 18 128/83 (98) 97 01/24/19 16:00 97.0 91 20 135/82 (99) 95 I&O Intake and Output 01/24/19 01/25/19 19:00 07:00 Intake Total 2865 ml 2715 ml Output Total 1750 ml Balance 2865 ml 965 ml Intake Free Water 300 ml 200 ml IV Total 1850 ml 1800 ml Tube Feeding 715 ml 715 ml Output Urine Total 1750 ml # Bowel Movements 1 2 Dressing: dry Wound: other Drains: other Cardiovascular: RSR Respiratory: decreased breath sounds Abdomen: soft, present bowel sounds Extremities: no cyanosis Laboratory Tests Test 01/25/19 05:40 White Blood Count 7.6 K/UL (4.8-10.8) Red Blood Count 2.77 M/UL (4.70-6.10) L Hemoglobin 8.3 G/DL (14.2-18.0) L Hematocrit 25.1 % (42.0-52.0) L Mean Corpuscular Volume 91 FL (80-99) Mean Corpuscular Hemoglobin 30.0 PG (27.0-31.0) Mean Corpuscular Hemoglobin Concent 33.0 G/DL (32.0-36.0) Red Cell Distribution Width 14.2 % (11.6-14.8) Platelet Count 266 K/UL (150-450) Mean Platelet Volume 6.2 FL (6.5-10.1) L Neutrophils (%) (Auto) 51.8 % (45.0-75.0) Lymphocytes (%) (Auto) 34.2 % (20.0-45.0) Monocytes (%) (Auto) 8.9 % (1.0-10.0) Eosinophils (%) (Auto) 3.8 % (0.0-3.0) H Basophils (%) (Auto) 1.4 % (0.0-2.0) Sodium Level 143 MMOL/L (136-145) Potassium Level 3.7 MMOL/L (3.5-5.1) Chloride Level 110 MMOL/L (98-107) H Carbon Dioxide Level 25 MMOL/L (21-32) Anion Gap 8 mmol/L (5-15) Blood Urea Nitrogen 8 mg/dL (7-18) Creatinine 0.6 MG/DL (0.55-1.30) Estimat Glomerular Filtration Rate mL/min (>60) Glucose Level 101 MG/DL (74-106) Calcium Level 8.5 MG/DL (8.5-10.1) Plan Problems: (1) Decubitus skin ulcer Assessment & Plan: Pt presented on admission with contractures. Pressure injuries to R and L foot ,non-blanching erythema sacrum. Lateral L heel erythematous and non-blanching. Base of wound is fluctuant. Periwound is also non-blanching and soft.(L)2.5cm x (W)3cm. Non-blanching erythema without fluctuance R hallux.(L)1.9cm x (W)2cm. DTPI noted to distal/lateral R foot including Lateral R metatarsal. Reabsorbing blood blister noted with erythematous margins. (L)4.8cm x (W)3.5cm. Tx.Plan: Apply Moisture Barrier Paste to sacrum. Cover with Optifoam drsg. Change every 3 days and prn. Apply Cavilon Skin Barrier to bony prominences both shoulders, both trochanteric and malleoli both feet. Cover each site with Optifoam drsgs. Change very 7 days and prn. Swab Lateral R foot with Betadine. Cover with Optifoam drsg. Change every 3 days and prn. Apply Cavilon to both heels. Cover each heel with Optifoam drsg. Change every 7 days and prn. APM/RAVINDER Mattress overlay. Reposition at least every 2hours or as tolerated. Place pillow between knees. Off-load heels with pillow. (2) Sepsis Assessment & Plan: Cont tube feeds IV abx as per ID wound care as above labs improved will monitor and follow with recs sepsis likely from UTI and not wounds improving (3) Failure to thrive syndrome, adult Assessment & Plan: DAILY ESTIMATED NEEDS: Needs based on Wt loss, wasting/ 48.2kg 30-35 kcals/kg 3293-8848 total kcals 1-1.5 g protein/kg 48-72 g total protein 25-30 mL/kg 8006-4541 total fluid mLs NUTRITION DIAGNOSIS: * Swallowing difficulty R/T dysphagia as evidenced by pt is PEG dep. * Increased kcal/prot intake needs R/T wt loss and wasting as evidenced by pt admitted w/ possible severe wt loss of 20lbs/15.8% in 5 months, pt @ 85% IBW. CURRENT TF:NPO ENTERAL NUTRITION RECOMMENDATIONS: Glucerna 1.2 @ 55ml/hr x 24 hrs to provide 1320ml, 1584kcal, 79g prot, 1063ml free water * As medically appropriate, initiate TF (Pt on Glucerna 1.2 FLOOR SANDER) * Initiate Glucerna 1.2 @ 20ml/hr x 6 hrs * Advance 10ml q 4-6 hrs as tolerated to goal rate * HOB over 30 degrees/ water flush per MD ADDITIONAL RECOMMENDATIONS: * Calibrated bedscale wt -> bedscale wt of 106lbs vs EMR wt of 150lbs -> rec daily wt monitoring given possible recent wt loss * Check F/up A1C-> A1C 6.3 (09/10/18) * Monitor lytes w/ TF, replete as needed Reji Guy Jan 25, 2019 14:35
[2019-01-25 16:00] VITALS: BP 140/79
--- NOTE | 2019-01-25 16:27 | NUR ---
NURSE NOTES: Pt is discharged to [facility] rehab via ambulance personnel in stable condition. Report given to ANTOINETTE Lebron. IV on RFA 22g was [facility] Patient had no belongings. Discharge instructions were given.
== END 2019-01-25 16:20 | DRG 872 ==
LOC: EDBD 13:08 → EDUNIT# 13:08 → EDBEDREQ 13:36 → EMR 14:13 → 2E 14:22 → EDBEDREQ 14:39 → 2E 21:50 → 4E 01-23 14:36
DX: A41.9 Sepsis, unspecified organism (principal); N39.0 Urinary tract infection, site not specified; Z43.1 Encounter for attention to gastrostomy; D62 Acute posthemorrhagic anemia; Z68.1 Body mass index [BMI] 19.9 or less, adult; R41.82 Altered mental status, unspecified; F03.90 Unspecified dementia, unspecified severity, without behavioral disturbance, psychotic disturbance, mood disturbance, and anxiety; I10 Essential (primary) hypertension; D63.8 Anemia in other chronic diseases classified elsewhere; L89.629 Pressure ulcer of left heel, unspecified stage; L89.619 Pressure ulcer of right heel, unspecified stage; R31.0 Gross hematuria; R33.9 Retention of urine, unspecified; N21.0 Calculus in bladder; R13.10 Dysphagia, unspecified; R62.7 Adult failure to thrive; N31.9 Neuromuscular dysfunction of bladder, unspecified; N28.1 Cyst of kidney, acquired; F32.9 Major depressive disorder, single episode, unspecified; L89.896 Pressure-induced deep tissue damage of other site
CPT/HCPCS: 36415; 71045; 80048; 80053; 80202; 81003; 82550; 82962; 83605; 83690; 83735; 83880; 84484; 85007; 85025; 85610; 85730; 87040; 87081; 87086; 87181; 87324; 93005; 94664; 96360; 99285; J7030; J8499

== ENCOUNTER 2019-05-23 02:18 | Inpatient (IN) | payer MEDICARE, OTHER ==
[2019-05-23] VITALS (7 sets, daily range): BP systolic 103–131; BP diastolic 50–69
[~2019-05-23] VITALS: Ht 167.6 cm; Wt 58.3 kg
[~2019-05-23 02:18] MED LIST changes: +ACETAMINOPHEN325 M1 GT; +CEFTRIAXONE1 G2 IVPB; +CEPHALEXIN250 MG GT; +FINASTERIDE5 MG ORAL; +FLOMAX0.4 MG GT; +FLOMAX0.4 MG ORAL; +HYDRALAZINE HCL25 M1 GT; +IPRAT-ALBUT 0.5-3 ML IH; +K-TAB ER20 MEQ ORAL; +LISINOPRIL10 MG GT; +PRO-STAT LIQUID30 ML GT; +PROSCAR5 MG GT; +THORAZINE25 MG GT; +VITAMIN B-121000 MCG GT; +VITAMIN D250000 UNI1 ORAL; +VITAMIN D31 M1 MC
--- NOTE | 2019-05-23 02:25 | NUR ---
ED Nurse Note: PT BIBA FROM [facility] C/O REOCCURING UTI AND FEVER OF 101.4 AT FACILITY. STAFF AT SNF GAVE 650 TYLENOL AT 0100; TRIAGE TEMP 99.1. PT ARRIVED WITH TIANA AND LORNA. VSS, NAD. WILL CONTINUE TO MONITOR PATIENT
--- NOTE | 2019-05-23 02:27 | Emergency Room Report ---
History of Present Illness General Chief Complaint: Fever Source: Medical Record, EMS Present Illness HPI Is a 73-year-old male with multiple medical problems with hypertension, diabetes , CVA. He is nonverbal. He has a feeding tube and a chronic Manriquez. He presents with chief complaint of fever and hematuria. Onset tonight. Tylenol was given for fever which helped. No nausea no vomiting. No cough. History is from nursing staff and his medical records. Patient is nonverbal. Allergies: Coded Allergies: No Known Allergies (Unverified , 08/20/18) Patient History Past Medical History: see triage record, old chart reviewed Past Surgical History: other Pertinent Family History: none Social History: Denies: smoking Immunizations: other Reviewed Nursing Documentation: PMH: Agreed; PSxH: Agreed Nursing Documentation-PMH Hx Cardiac Problems: Yes Hx Hypertension: Yes Hx COPD: Yes Hx Cancer: No Hx Neurological Problems: Yes Hx Cerebrovascular Accident: Yes Hx Dementia: Yes Hx Dysphasia: Yes Hx Weakness: Yes - generalized Review of Systems All Other Systems: limited - Nonverbal Physical Exam Vitals with fever Sp02 EP Interpretation: reviewed, normal General Appearance: alert, mild distress, cachetic Head: normocephalic, atraumatic Eyes: bilateral eye PERRL, bilateral eye EOMI ENT: hearing grossly normal, other - Dried mucous membrane Neck: full range of motion, supple, no meningismus Respiratory: chest non-tender, lungs clear, normal breath sounds Cardiovascular #1: regular rate, rhythm, no murmur Gastrointestinal: normal bowel sounds, non tender, no mass, no organomegaly, no bruit, non-distended, other - G-Tube intact Musculoskeletal: back normal, other - Contracted Neurologic: alert Psychiatric: mood/affect normal Medical Decision Making Diagnostic Impression: Primary Impression: Sepsis Qualified Codes: A41.9 - Sepsis, unspecified organism Additional Impressions: UTI (urinary tract infection) Qualified Codes: N30.00 - Acute cystitis without hematuria Elevated LFTs Anemia Qualified Codes: D64.9 - Anemia, unspecified ER Course Patient presents with fever and hematuria. This probably secondary to infectious cause from urinalysis. He grew out providentia previously. Sensitive to ertapenem. Antibiotics given. IV fluid given. No evidence of ACS , PE, dissection to name a few. No evidence of any pneumonia. Patient will be admitted for IV antibiotics. I contacted Dr. Shakibai group for admission. EKG Diagnostic Results Rate: normal Rhythm: NSR ST Segments: no acute changes Rhythm Strip Diag. Results EP Interpretation: yes Rate: 86 Rhythm: NSR, no PVC's, no ectopy Chest X-Ray Diagnostic Results Chest X-Ray Diagnostic Results : Chest X-Ray Ordered: Yes # of Views/Limited/Complete: 1 View Indication: Shortness of Breath Interpretation: no consolidation, no effusion, no pneumothorax, no acute cardiopulmonary disease Impression: No acute disease Electronically Signed by: Hong Milligan MD Status: improved Disposition: ADMITTED INPATIENT Condition: Serious Hong Milligan MD May 23, 2019 02:27
[2019-05-23] MEDS ORDERED: Sodium Chloride 2,200 ML IVLG ONE (02:30)
[2019-05-23] MEDS ORDERED: Ertapenem 1 GM in NS 55 ML IV ONE (02:30)
--- NOTE | 2019-05-23 02:30 | NUR ---
ED Nurse Note: BLOOD AND URINE COLLECTED AND SENT TO LAB
--- NOTE | 2019-05-23 02:35 | NUR ---
ED Nurse Note: XR AT BEDSIDE
[2019-05-23 02:54] LABS: BILIRUBIN, URINE NEGATIVE (NEGATIVE); GLUCOSE, URINE (UA) NEGATIVE (NEGATIVE); KETONES,URINE NEGATIVE (NEGATIVE); LEUKOCYTE ESTERASE ,URINE 3+ (NEGATIVE); NITRITE,URINE NEGATIVE (NEGATIVE); PH,URINE 6 (4.5-8.0); PROTEIN,URINE 3+ (NEGATIVE); UROBILINOGEN,URINE NORMAL MG/DL (0.0-1.0)
[2019-05-23 03:01] LABS: APPEARANCE,URINE CLOUDY; COLOR,URINE YELLOW
[2019-05-23 03:01] LABS: ANION GAP 12 mmol/L (5-15); BLOOD UREA NITROGEN 26 mg/dL (7-18); CALCIUM 9.3 MG/DL (8.5-10.1); CARBON DIOXIDE 24 MMOL/L (21-32); CHLORIDE 95 MMOL/L (98-107); CREATININE 0.9 MG/DL (0.55-1.30); POTASSIUM 3.9 MMOL/L (3.5-5.1); SODIUM 131 MMOL/L (136-145)
[2019-05-23 03:03] LABS: INR 1.2 (0.9-1.1)
[2019-05-23 03:04] LABS: EOSINOPHILS % (AUTO) 0.4 % (0.0-3.0); HEMATOCRIT 26.3 % (42.0-52.0); HEMOGLOBIN 9.5 G/DL (14.2-18.0); LYMPHOCYTES % (AUTO) 8.2 % (20.0-45.0); MEAN CORPUSCULAR VOLUME 86 FL (80-99); MONOCYTES % (AUTO) 5.8 % (1.0-10.0); NEUTROPHILS % (AUTO) 84.6 % (45.0-75.0); PLATELET COUNT 265 K/UL (150-450); RED BLOOD COUNT 3.06 M/UL (4.70-6.10); RED CELL DISTRIBUTION WIDTH 13.5 % (11.6-14.8); WHITE BLOOD COUNT 9.6 K/UL (4.8-10.8)
[2019-05-23 03:16] LABS: ALANINE AMINOTRANSFERASE 111 U/L (12-78); ALBUMIN 3.1 G/DL (3.4-5.0); ALBUMIN/GLOBULIN RATIO 0.6 (1.0-2.7); ALKALINE PHOSPHATASE 135 U/L (46-116); ASPARTATE AMINO TRANSFERASE 50 U/L (15-37); BILIRUBIN,TOTAL 0.4 MG/DL (0.2-1.0); CKMB 0.5 NG/ML (0.0-3.6); CREATINE KINASE 58 U/L (26-308)
--- NOTE | 2019-05-23 06:10 | NUR ---
TRANSFER TO FLOOR: Patient transferred to [facility] via [facility] accompanied by tech in stable condition as ordered, per dr. Hyatt. Report given to Sotero CURRY. Belongings sent with patient.
--- NOTE | 2019-05-23 06:30 | NUR ---
NURSE NOTES: Received patient via gurney from ED. Patient is non-verbal. On 2 liters via NC. GT in place, patent. F/C in place, draining cloudy yellow urine. VSS. Belongings list verified. IV in the Right forearm intact. Patient is a fall risk. Oriented patient to room and call light, patient unable to comprehend. Fall risk endorsed to [employer]SCUTTER and CN, will endorse to next RN. Bed alarm placed on high-sensitivity.
--- NOTE | 2019-05-23 07:30 | NUR ---
NURSE NOTES:Handoff received from ANTOINETTE Bey. Patient received resting in bed, no acute signs of distress noted. Patient is on 2 liters nasal cannula, bed in the low and locked position with call light within reach. Patient is newly admitted with no orders yet, will contact primary MD to obtain orders. patient does not have any belongings, belongings list signed by nightshift RN. will continue to monitor patient.
--- NOTE | 2019-05-23 07:30 | NUR ---
HAND-OFF: Report given to Benji.
--- NOTE | 2019-05-23 07:50 | NUR ---
NURSE NOTES: Called Dr Hyatt's office and spoke to Timur regarding admission orders for the patient.
--- NOTE | 2019-05-23 08:03 | NUR ---
NURSE NOTES: Called facility and spoke to Latonia to ask for medication list as patient arrived to the floor with no paperwork for the facility.
[2019-05-23] MEDS ORDERED: traMADol 50mg tab GT PRN (08:15)
[2019-05-23] MEDS ORDERED: HydrALAZINE 25mg tab GT PRN ×2 (08:15→18:15)
[2019-05-23] MEDS ORDERED: Lisinopril 20mg tab GT SCH (09:00)
[2019-05-23] MEDS ORDERED: Tamsulosin 0.4mg cap ORAL SCH ×2 (09:00→21:00)
[2019-05-23] MEDS: Thiamine 100mg tab GT SCH (10:18)
[2019-05-23] MEDS: Heparin 5000 units/ml inj SUBQ SCH ×2 (10:20→20:39)
--- NOTE | 2019-05-23 10:31 | History and Physical ---
History of Present Illness General Date patient seen: May 23, 2019 Time patient seen: 07:00 Reason for Hospitalization: Fever Present Illness HPI 73 year old man with history of advanced dementia (bedbound, nonverbal, PEG dependent at baseline), dysphagia s/p PEG, HTN, depression, anemia of chronic disease, depression, and bilateral pressure ulcers in heels who presented from rehab facility with fever and hematuria Patient is non verbal at baseline and cannot provide further history information obtain from medical records. No reports of diarrhea or abdominal pain. In ED he was found to have pyuria and treated with Invanz and referred for admission for acute cystitis. Social and Gamily History: Unable to obtain due to severe dementia Allergies: Coded Allergies: No Known Allergies (Unverified , 08/20/18) Medication History Scheduled Amino Acids/Protein Hydrolys (Pro-Stat Liquid), 30 ML GT DAILY, (Reported) Cholecalciferol (Vitamin D3) (Vitamin D3), 1 ML MC TID, (Reported) Cyanocobalamin (Vitamin B-12) (Vitamin B-12), 1,000 MCG GT DAILY, (Reported) Ergocalciferol (Vitamin D2)* (Vitamin D*), 50,000 UNIT GT ONCE A WEEK, (Reported ) Finasteride* (Proscar*), 5 MG GT DAILY, (Reported) Lisinopril* (Lisinopril*), 10 MG GT DAILY, (Reported) Pantoprazole Sodium (Protonix), 40 MG GT DAILY Aisywbrikycm-Cmhc-Tfxamggs,Iso (Zosyn 3.375 Gm Pre Mix-Bag), 3.375 GM IVPB EVERY 8 HOURS Potassium Chloride (K-Tab ER), 20 MEQ ORAL DAILY Tamsulosin HCl (Flomax), 0.4 MG GT DAILY, (Reported) Thiamine Hcl* (Vitamin B-1*), 100 MG GT DAILY, (Reported) Scheduled PRN Acetaminophen* (Acetaminophen 325MG Tablet*), 650 MG GT Q6H PRN for Mild Pain/ Temp > 100.5, (Reported) Chlorpromazine (Chlorpromazine HCl), 25 MG GT EVERY 8 HOURS PRN for HICCUPS, ( Reported) Hydralazine Hcl* (Hydralazine Hcl*), 25 MG GT EVERY 6 HOURS PRN for SBP > 160, ( Reported) Ipratropium/Albuterol Sulfate (Iprat-Albut 0.5-3(2.5) Mg/3 Ml), 3 ML IH Q6HR PRN for Shortness of Breath, (Reported) Ondansetron* (Zofran*), 4 MG GT Q6H PRN for Nausea & Vomiting, (Reported) Tramadol Hcl* (Ultram*), 50 MG GT DAILY PRN for For Pain, (Reported) Patient History Healthcare decision maker Resuscitation status Advanced Directive on File Review of Systems ROS Narrative Unable to obtain due to severe dementia Physical Exam General Appearance: other - Semi-Alert, confused, NAD HEENT: atraumatic, anicteric Neck: normal alignment, supple Respiratory/Chest: lungs clear, normal breath sounds Cardiovascular/Chest: normal rate, regular rhythm Abdomen: non tender, soft Extremities: non-tender, normal inspection Neurologic: other - Demented, nonverbal Musculoskeletal: atrophy Last 24 Hour Vital Signs Date Time Temp Pulse Resp B/P (MAP) Pulse Ox O2 Delivery O2 Flow Rate FiO2 05/23/19 08:00 101.2 106 18 131/69 (89) 98 05/23/19 06:40 99.5 89 19 107/50 (69) 95 05/23/19 06:10 98.5 81 16 117/62 95 Nasal Cannula 2.0 05/23/19 04:38 99.5 88 18 114/56 95 Nasal Cannula 2.0 05/23/19 03:17 86 18 Nasal Cannula 2.0 05/23/19 02:45 99.1 86 18 103/52 94 Nasal Cannula 2.0 05/23/19 02:21 99.1 94 18 112/72 (85) 95 Nasal Cannula 2.0 Laboratory Tests Test 05/23/19 02:30 05/23/19 02:42 White Blood Count 9.6 K/UL (4.8-10.8) Red Blood Count 3.06 M/UL (4.70-6.10) L Hemoglobin 9.5 G/DL (14.2-18.0) L Hematocrit 26.3 % (42.0-52.0) L Mean Corpuscular Volume 86 FL (80-99) Mean Corpuscular Hemoglobin 31.2 PG (27.0-31.0) H Mean Corpuscular Hemoglobin Concent 36.2 G/DL (32.0-36.0) H Red Cell Distribution Width 13.5 % (11.6-14.8) Platelet Count 265 K/UL (150-450) Mean Platelet Volume 6.4 FL (6.5-10.1) L Neutrophils (%) (Auto) 84.6 % (45.0-75.0) H Lymphocytes (%) (Auto) 8.2 % (20.0-45.0) L Monocytes (%) (Auto) 5.8 % (1.0-10.0) Eosinophils (%) (Auto) 0.4 % (0.0-3.0) Basophils (%) (Auto) 1.0 % (0.0-2.0) Prothrombin Time 12.4 SEC (9.30-11.50) H Prothromb Time International Ratio 1.2 (0.9-1.1) H Activated Partial Thromboplast Time 39 SEC (23-33) H Sodium Level 131 MMOL/L (136-145) L Potassium Level 3.9 MMOL/L (3.5-5.1) Chloride Level 95 MMOL/L (98-107) L Carbon Dioxide Level 24 MMOL/L (21-32) Anion Gap 12 mmol/L (5-15) Blood Urea Nitrogen 26 mg/dL (7-18) H Creatinine 0.9 MG/DL (0.55-1.30) Estimat Glomerular Filtration Rate > 60 mL/min (>60) Glucose Level 120 MG/DL (74-106) H Lactic Acid Level 0.90 mmol/L (0.4-2.0) Calcium Level 9.3 MG/DL (8.5-10.1) Total Bilirubin 0.4 MG/DL (0.2-1.0) Aspartate Amino Transf (AST/SGOT) 50 U/L (15-37) H Alanine Aminotransferase (ALT/SGPT) 111 U/L (12-78) H Alkaline Phosphatase 135 U/L (46-116) H Total Creatine Kinase 58 U/L (26-308) Creatine Kinase MB 0.5 NG/ML (0.0-3.6) Creatine Kinase MB Relative Index 0.8 Troponin I 0.000 ng/mL (0.000-0.056) Total Protein 8.1 G/DL (6.4-8.2) Albumin 3.1 G/DL (3.4-5.0) L Globulin 5.0 g/dL Albumin/Globulin Ratio 0.6 (1.0-2.7) L Urine Color Yellow Urine Appearance Cloudy Urine pH 6 (4.5-8.0) Urine Specific [place] 1.015 (1.005-1.035) Urine Protein 3+ (NEGATIVE) H Urine Glucose (UA) Negative (NEGATIVE) Urine Ketones Negative (NEGATIVE) Urine Blood 5+ (NEGATIVE) H Urine Nitrite Negative (NEGATIVE) Urine Bilirubin Negative (NEGATIVE) Urine Urobilinogen Normal MG/DL (0.0-1.0) Urine Leukocyte Esterase 3+ (NEGATIVE) H Urine RBC Tntc /HPF (0 - 0) H Urine WBC 30-40 /HPF (0 - 0) H Urine Squamous Epithelial Cells None /LPF (NONE/OCC) Urine Bacteria Many /HPF (NONE) H Height (Feet): 5 Height (Inches): 6.00 Weight (Pounds): 160 Medications Current Medications Medications (Trade) Dose Ordered Sig/Altagracia Route PRN Reason Start Time Stop Time Status Last Admin Dose Admin Albuterol/ Ipratropium (Albuterol/ Ipratropium) 3 ml Q6HR PRN HHN Shortness of Breath 05/23/19 08:15 05/28/19 08:14 Dextrose (Dextrose 50%) 25 ml Q30M PRN IV Hypoglycemia 05/23/19 08:15 06/22/19 08:14 Dextrose (Dextrose 50%) 50 ml Q30M PRN IV Hypoglycemia 05/23/19 08:15 06/22/19 08:14 Ertapenem 1 gm/ Sodium Chloride 55 ml @ 110 mls/hr Q24H IVPB 05/24/19 02:00 05/29/19 01:59 Finasteride (Proscar) 5 mg DAILY ORAL 05/23/19 09:00 06/22/19 08:59 Heparin Sodium (Porcine) (Heparin 5000 units/ml) 5,000 units EVERY 12 HOURS SUBQ 05/23/19 09:00 06/22/19 08:59 Hydralazine HCl (Apresoline) 25 mg EVERY 6 HOURS PRN GT SBP > 160 05/23/19 08:15 06/22/19 08:14 Lisinopril (PriniviL) 10 mg DAILY GT 05/23/19 09:00 06/22/19 08:59 Tamsulosin HCl (Flomax) 0.4 mg DAILY ORAL 05/23/19 09:00 06/22/19 08:59 Thiamine HCl (Vitamin B1) 100 mg DAILY GT 05/23/19 09:00 06/22/19 08:59 Tramadol HCl (Ultram) 50 mg DAILY PRN GT For Pain 05/23/19 08:15 05/30/19 08:14 Assessment/Plan Assessment/Plan: 73 year old man with history of advanced dementia (bedbound, nonverbal, PEG dependent at baseline), dysphagia s/p PEG, HTN, depression, anemia of chronic disease, depression, and bilateral pressure ulcers in heels who presented from rehab facility with fever and hematuria #Acute cystitis #Hematuria #Pyuria -admit to inpatient medical service -continue Invanz for now -follow up cultures -ID consulted, Dr. Torres #Dehydration #Hyponatremia -continue IV saline -Nephrology consulted #Hx of HTN -resume lisinopril #Advance dementia- bed bound, PEG dependent #Functional quadriplegia #Depression #Anemia of chronic disease- stable vte ppx: heparin sc code: full code, POLST reviewed I spent 70 minutes during this encounter, >50 spent on counselling and care coordination. I spent an additional 35 minutes of chart review which included review of ED records, prior admission records, consultation notes Wei Neves MD May 23, 2019 10:31
--- NOTE | 2019-05-23 11:00 | NUR ---
NURSE NOTES: called Olena gee for G tube feeding and Tylenol as patient currently has a fever.
[2019-05-23] MEDS: Acetaminophen 650mg/20.3ml GT PRN ×2 (11:29→21:56)
--- NOTE | 2019-05-23 12:11 | Diagnostic Imaging Report ---
Indication: Dyspnea Comparison: 03/14/2019 A single view chest radiograph was obtained. Findings: There is suggestion of mild basal atelectasis. No infiltrate seen. The evaluation is limited by severe rotation. Heart size is probably normal. Bones are osteopenic. IMPRESSION: Suspected mild basal atelectasis.
[2019-05-23 13:41] LABS: FERRITIN 237 NG/ML (8-388)
[2019-05-23 14:07] LABS: % IRON SATURATION 4 % (15-50); IRON 7 ug/dL (50-175); TOTAL IRON BINDING CAPACITY 196 ug/dL (250-450)
--- NOTE | 2019-05-23 16:42 | NUR ---
CASE MANAGEMENT:INITIAL REVIEW 73 YR OLD MALE BIBA FROM REHAB [facility] ON CC;FEVER SI;SEPSIS. UTI. ELEVATED LFT'S. ANEMIA. 99.5 89 16 103/52 94% 2L NC H/H 9.5/26.3 NA 131 CL 95 BUN 26 AST 50 ALT 111 ALK PHOS 135 PT 12.4 INR 1.2 APTT 39 UA+ PROTEIN, BLOOD, LEUKOCYTE, RBC, WBC, BACTERIA CXR = Suspected mild basal atelectasis. IS;IVF NS ONCE ERTAPENEM IV ONCE ADMITTED TO MED SURG MED SURG STATUS DCP;FROM REHAB [facility] ON
--- NOTE | 2019-05-23 18:07 | Consultation ---
Consult Note Consult Note I was asked to evaluate at the request of Dr. Costa fluid and electrolyte management Is a 73-year-old male with multiple medical problems with hypertension, diabetes , CVA. He is nonverbal. He has a feeding tube and a chronic Manriquez. He presents with chief complaint of fever and hematuria. Onset tonight. Tylenol was given for fever which helped. No nausea no vomiting. No cough. History is from nursing staff and his medical records. Patient is nonverbal. No Known Allergies (Unverified , 08/20/18) Hx Cardiac Problems: Yes Hx Hypertension: Yes Hx COPD: Yes Hx Neurological Problems: Yes Hx Cerebrovascular Accident: Yes Hx Dementia: Yes Hx Dysphasia: Yes Hx Weakness: Yes - generalized Examined Data reviewed . Assessment/Plan Acute metabolic encephalopathy UTI Dehydration, hyponatremia Patient has Manriquez catheter and GT tube Advance dementia- bed bound, PEG dependent Depression Anemia of most likely chronic disease- stable Hx of HTN Elevated liver enzymes Slow saline infusion Monitor electrolytes Antibiotics for UTI Parameters for blood pressure medications Avoid nephrotoxics Minh Phipps MD May 23, 2019 18:07
--- NOTE | 2019-05-23 19:29 | NUR ---
NURSE NOTES: Received patient in bed, asleep, eyes closed, patient is non verbal, confused, disoriented, bed bound, IV site is clean dry and intact, g tube feeding is tolerated well, 0 residual, call light is within reach, bed is lowered, locked, alarm is on, will continue to monitor for comfort and safety.
--- NOTE | 2019-05-23 19:39 | NUR ---
HAND-OFF: Report given to ANTOINETTE Lau.
[2019-05-23] MEDS ORDERED: Iron Sucrose 200 MG in NS 110 ML IV ONE (20:00)
--- NOTE | 2019-05-23 21:13 | Infectious Diseases Prog Note ---
Assessment/Plan Assessment/Plan Full consult dictated: A) 1) uti, fevers, possible pyelonephritis, possible sepsis 2) chest x-ray - atx 3) pmh noted 4) allergies - nkda P) 1) ertapenem 2) check cultures 3) monitor clinically and labs 4) thank you Subjective Allergies: Coded Allergies: No Known Allergies (Unverified , 08/20/18) Objective Vital Signs Last 24 Hour Vital Signs Date Time Temp Pulse Resp B/P (MAP) Pulse Ox O2 Delivery O2 Flow Rate FiO2 05/23/19 16:00 98.1 90 20 110/56 (74) 98 05/23/19 12:00 100.1 108 20 122/66 (84) 95 05/23/19 11:59 101.7 05/23/19 10:19 131/69 05/23/19 09:00 Room Air 05/23/19 08:00 101.2 106 18 131/69 (89) 98 05/23/19 07:55 Room Air 05/23/19 06:40 99.5 89 19 107/50 (69) 95 05/23/19 06:10 98.5 81 16 117/62 95 Nasal Cannula 2.0 05/23/19 04:38 99.5 88 18 114/56 95 Nasal Cannula 2.0 05/23/19 03:17 86 18 Nasal Cannula 2.0 05/23/19 02:45 99.1 86 18 103/52 94 Nasal Cannula 2.0 05/23/19 02:21 99.1 94 18 112/72 (85) 95 Nasal Cannula 2.0 Height (Feet): 5 Height (Inches): 6.00 Weight (Pounds): 103 Laboratory Tests Test 05/23/19 02:30 05/23/19 02:42 White Blood Count 9.6 K/UL (4.8-10.8) Red Blood Count 3.06 M/UL (4.70-6.10) L Hemoglobin 9.5 G/DL (14.2-18.0) L Hematocrit 26.3 % (42.0-52.0) L Mean Corpuscular Volume 86 FL (80-99) Mean Corpuscular Hemoglobin 31.2 PG (27.0-31.0) H Mean Corpuscular Hemoglobin Concent 36.2 G/DL (32.0-36.0) H Red Cell Distribution Width 13.5 % (11.6-14.8) Platelet Count 265 K/UL (150-450) Mean Platelet Volume 6.4 FL (6.5-10.1) L Neutrophils (%) (Auto) 84.6 % (45.0-75.0) H Lymphocytes (%) (Auto) 8.2 % (20.0-45.0) L Monocytes (%) (Auto) 5.8 % (1.0-10.0) Eosinophils (%) (Auto) 0.4 % (0.0-3.0) Basophils (%) (Auto) 1.0 % (0.0-2.0) Prothrombin Time 12.4 SEC (9.30-11.50) H Prothromb Time International Ratio 1.2 (0.9-1.1) H Activated Partial Thromboplast Time 39 SEC (23-33) H Sodium Level 131 MMOL/L (136-145) L Potassium Level 3.9 MMOL/L (3.5-5.1) Chloride Level 95 MMOL/L (98-107) L Carbon Dioxide Level 24 MMOL/L (21-32) Anion Gap 12 mmol/L (5-15) Blood Urea Nitrogen 26 mg/dL (7-18) H Creatinine 0.9 MG/DL (0.55-1.30) Estimat Glomerular Filtration Rate > 60 mL/min (>60) Glucose Level 120 MG/DL (74-106) H Lactic Acid Level 0.90 mmol/L (0.4-2.0) Calcium Level 9.3 MG/DL (8.5-10.1) Iron Level 7 ug/dL (50-175) L Total Iron Binding Capacity 196 ug/dL (250-450) L Percent Iron Saturation 4 % (15-50) L Unsaturated Iron Binding 189 ug/dL (112-346) Ferritin 237 NG/ML (8-388) Total Bilirubin 0.4 MG/DL (0.2-1.0) Aspartate Amino Transf (AST/SGOT) 50 U/L (15-37) H Alanine Aminotransferase (ALT/SGPT) 111 U/L (12-78) H Alkaline Phosphatase 135 U/L (46-116) H Total Creatine Kinase 58 U/L (26-308) Creatine Kinase MB 0.5 NG/ML (0.0-3.6) Creatine Kinase MB Relative Index 0.8 Troponin I 0.000 ng/mL (0.000-0.056) Total Protein 8.1 G/DL (6.4-8.2) Albumin 3.1 G/DL (3.4-5.0) L Globulin 5.0 g/dL Albumin/Globulin Ratio 0.6 (1.0-2.7) L Vitamin B12 Level 959 PG/ML (193-986) Folate 45.1 NG/ML (8.6-58.9) Urine Color Yellow Urine Appearance Cloudy Urine pH 6 (4.5-8.0) Urine Specific [place] 1.015 (1.005-1.035) Urine Protein 3+ (NEGATIVE) H Urine Glucose (UA) Negative (NEGATIVE) Urine Ketones Negative (NEGATIVE) Urine Blood 5+ (NEGATIVE) H Urine Nitrite Negative (NEGATIVE) Urine Bilirubin Negative (NEGATIVE) Urine Urobilinogen Normal MG/DL (0.0-1.0) Urine Leukocyte Esterase 3+ (NEGATIVE) H Urine RBC Tntc /HPF (0 - 0) H Urine WBC 30-40 /HPF (0 - 0) H Urine Squamous Epithelial Cells None /LPF (NONE/OCC) Urine Bacteria Many /HPF (NONE) H Current Medications Medications (Trade) Dose Ordered Sig/Altagracia Route PRN Reason Start Time Stop Time Status Last Admin Dose Admin Acetaminophen (Tylenol) 650 mg Q4H PRN GT Mild Pain/Temp > 100.5 05/23/19 11:15 06/22/19 11:14 05/23/19 11:29 Albuterol/ Ipratropium (Albuterol/ Ipratropium) 3 ml Q6HR PRN HHN Shortness of Breath 05/23/19 08:15 05/28/19 08:14 Dextrose (Dextrose 50%) 25 ml Q30M PRN IV Hypoglycemia 05/23/19 08:15 06/22/19 08:14 Dextrose (Dextrose 50%) 50 ml Q30M PRN IV Hypoglycemia 05/23/19 08:15 06/22/19 08:14 Ertapenem 1 gm/ Sodium Chloride 55 ml @ 110 mls/hr Q24H IVPB 05/24/19 02:00 05/29/19 01:59 Finasteride (Proscar) 5 mg DAILY ORAL 05/24/19 09:00 06/23/19 08:59 Heparin Sodium (Porcine) (Heparin 5000 units/ml) 5,000 units EVERY 12 HOURS SUBQ 05/23/19 09:00 06/22/19 08:59 05/23/19 20:39 Hydralazine HCl (Apresoline) 25 mg Q4H PRN GT SBP > 160 05/23/19 18:15 06/22/19 18:14 Lisinopril (PriniviL) 10 mg DAILY GT 05/24/19 09:00 06/22/19 08:59 Sodium Chloride 1,000 ml @ 50 mls/hr Q20H IV 05/23/19 18:15 06/22/19 18:14 05/23/19 18:41 Tamsulosin HCl (Flomax) 0.4 mg BEDTIME ORAL 05/23/19 21:00 06/22/19 20:59 05/23/19 20:39 Thiamine HCl (Vitamin B1) 100 mg DAILY GT 05/23/19 09:00 06/22/19 08:59 05/23/19 10:18 Tramadol HCl (Ultram) 50 mg DAILY PRN GT For Pain 05/23/19 08:15 05/30/19 08:14 Bonny Rincon MD May 23, 2019 21:13
--- NOTE | 2019-05-23 22:45 | Consultation ---
DATE OF CONSULTATION: 05/23/2019 INFECTIOUS DISEASE CONSULTATION CONSULTING PHYSICIAN: Bonny Rincon M.D. ATTENDING PHYSICIAN: Darion Hyatt M.D. REFERRING PHYSICIAN: Wei Neves M.D. REASON FOR CONSULTATION: UTI, pyelonephritis, sepsis, fevers. CHIEF COMPLAINT: The patient's chief complaint coming into the hospital is UTI, sepsis. HISTORY OF PRESENT ILLNESS: This is a 73-year-old male who is not a very good historian. He has multiple medical problems. The patient presented to [facility] with fevers. The patient has significantly positive urinalysis, likely has complicated UTI with fevers. The patient because of the fevers, could have pyelonephritis. He does have a Manriquez. He could be septic also. Infectious Disease consultation is requested. The patient was started on ertapenem or Invanz 1 g IV q.24 hours. Urine culture and blood cultures are pending. Chest x-ray with atelectasis. The patient has been febrile over 101. MAR was noted. Orders were noted. Notes and records were reviewed. Case discussed with RN. REVIEW OF SYSTEMS: CONSTITUTIONAL: Generalized fatigue and weakness. He has no central line. He has a Manriquez. HEAD AND NECK: Could not be assessed. CARDIAC: No pressors. GASTROINTESTINAL: No nausea, vomiting, or diarrhea. GENITOURINARY: He does have a Manriquez. PULMONARY: Mild cough, congestion noted. No hemoptysis or secretion. SKIN: No rash or pruritus. EXTREMITIES: Could not assess. NEUROLOGIC: No seizures. Generalized fatigue. Poorly responsive. Generalized weakness. No seizure activity noted. PAST MEDICAL HISTORY: The patient has a past medical history of COPD, pneumonia, UTI, hypokalemia, dementia, hypertension, hypertensive heart disease, ventricular premature depolarization, rhabdomyolysis, pyelonephritis, failure to thrive, dysphagia, G-tube. He also has history of anemia, depression, history of pressure ulcers in the heels in the past. ALLERGIES: No known drug allergies. No antibiotic allergies. SOCIAL HISTORY: Negative for smoking, alcohol, or drug abuse. FAMILY HISTORY: Noncontributory. Negative for tuberculosis or cancer. MEDICATIONS: Upon reviewing the MAR, the patient is on following medications: He is on lisinopril, finasteride, Proscar, ertapenem, , sodium chloride, hydralazine, acetaminophen, thiamine, heparin, breathing treatments, tramadol, IV fluids. Outside medications noted and reconciliated. Antibiotic, ertapenem or Invanz. PHYSICAL EXAMINATION: VITAL SIGNS: Temperature 98.1, pulse rate 90, respiratory rate 20, blood pressure 110/56, saturation 98%, T-max is 101.7, pulse rate has been as high as 108. GENERAL: The patient is weak. Not a very good historian. Lethargic. Mild congestion. HEAD AND NECK: Oral exam, no thrush. Eye exam, no icterus. Normocephalic. Neck is supple. No JVD. HEART: Regular. No gallop or murmur. No friction rub. ABDOMEN: Soft. Positive bowel sounds. Could not assess tenderness. LUNGS: Few bilateral rhonchi. No rales. Decreased breath sounds at bases. SKIN: No rash. MUSCULOSKELETAL: No effusion. Legs are without cellulitis. PERIPHERAL VASCULAR: No gangrene noted. GENITOURINARY: The patient has a Manriquez. Urine is cloudy. LINE SITES: Without phlebitis. NEUROLOGIC: Generalized weakness. Lethargic. LABORATORY DATA: Creatinine 0.9, sodium 131. White count 9.6, hemoglobin 9.5. UA had too many to count rbc's, 30 to 40 white blood cells, many bacteria, 3+ leukocyte esterase. Cultures pending, blood and urine are pending. IMAGING STUDIES: Chest x-ray was done reviewed, showed atelectasis. Left basal atelectasis. ASSESSMENT AND PLAN: 1. The patient has urinary tract infection, significantly positive urinalysis, complicated UTI with fevers, rule out pyelonephritis, rule out sepsis. The patient does have SIRS criteria. At this time, I agree with ertapenem or Invanz 1 g IV q.24 hours for gram-negative coverage. Continue ertapenem and check urine culture and blood cultures. Chest x-ray with atelectasis. Continue ertapenem for complicated UTI, fevers, possible pyelonephritis, sepsis. Follow up on cultures. 2. Chest x-ray with atelectasis. 3. Anemia. 4. Hypernatremia. 5. Hypertension. 6. Hypertensive heart disease. 7. History of UTI, pneumonia. 8. Hypertension treatment per primary care team and Nephrology. 9. Wound care protocol. 10. COPD. 11. Dementia. 12. History of failure to thrive. 13. Dysphagia, G-tube. 14. History of hyperkalemia. 15. Continue treatment per primary consultants. 16. No known allergies. 17. Social history negative. 18. Family history is noncontributory. 19. MAR was noted. 20. Case discussed with RN. 21. Orders were noted and entered. Bonny Rincon M.D. DR: MICHAEL JOB#: [id number] CC:
[2019-05-24] VITALS: BP 105/59
[2019-05-24] MEDS ORDERED: LORazepam 0.5mg tab ORAL PRN
[2019-05-24] MEDS: Ertapenem 1 GM in NS 55 ML IVPB SCH (01:31)
[2019-05-24 04:00] VITALS: BP 139/78
--- NOTE | 2019-05-24 06:45 | Consultation ---
DATE OF CONSULTATION: 05/23/2019 CONSULTING PHYSICIAN: Rob Baltzaar M.D. HISTORY OF PRESENT ILLNESS: The patient is a 73-year-old male with a history of advanced dementia, who is nonverbal, bedbound, PEG dependent, who has been admitted to the hospital for medical stabilization. The patient has depressed mood, anemia of chronic disease, depression, bilateral pressure ulcers, has been admitted to the hospital for medical stabilization. The patient is confused, disoriented, has episodes of agitation, and I was asked by Dr. Kramer to assess this patient today. The patient is here for UTI and sepsis. The patient has waxing and waning consciousness, confused, unable to provide any meaningful history. PAST PSYCHIATRIC HISTORY: Depression, dementia. PAST MEDICAL HISTORY: Significant for , rhabdomyolysis, failure to thrive, UTI, BPH. ALLERGIES: No known drug allergies. SUBSTANCE ABUSE HISTORY: No known history of illicit drug use or alcohol. MENTAL STATUS EXAMINATION: The patient is alert. He is disoriented. Mood is neutral to anxious. Affect is flat. Thought process is concrete. Thought content, no suicidal or homicidal ideation. Cognition is impaired. Insight and judgment is impaired. ASSESSMENT: [place] I Dementia with behavior disturbance. Acute toxic encephalopathy. [place] II Deferred. [place] III As above. [place] IV Low. [place] V 20 PLAN: 1. We will start the patient on Ativan for agitation. 2. Treat the underlying cause of urinary tract infection and sepsis. 3. Discussed with the nurse. Rob Baltazar M.D. DR: Christiane JOB#: [id number] CC:
[2019-05-24 07:13] LABS: HEMATOCRIT 26.5 % (42.0-52.0); MEAN CORPUSCULAR VOLUME 88 FL (80-99); PLATELET COUNT 268 K/UL (150-450); RED CELL DISTRIBUTION WIDTH 13.5 % (11.6-14.8); WHITE BLOOD COUNT 9.7 K/UL (4.8-10.8)
--- NOTE | 2019-05-24 07:13 | NUR ---
HAND-OFF: Report given to Mikey CURRY.
[2019-05-24 07:16] LABS: ALANINE AMINOTRANSFERASE 103 U/L (12-78); ALBUMIN 2.7 G/DL (3.4-5.0); ALBUMIN/GLOBULIN RATIO 0.6 (1.0-2.7); ALKALINE PHOSPHATASE 120 U/L (46-116); ANION GAP 12 mmol/L (5-15); ASPARTATE AMINO TRANSFERASE 71 U/L (15-37); BILIRUBIN,TOTAL 0.2 MG/DL (0.2-1.0); BLOOD UREA NITROGEN 17 mg/dL (7-18); CALCIUM 8.9 MG/DL (8.5-10.1); CARBON DIOXIDE 23 MMOL/L (21-32); CHLORIDE 102 MMOL/L (98-107); CHOLESTEROL 92 MG/DL (< 200); CREATININE 0.8 MG/DL (0.55-1.30); GAMMA GLUTAMYL TRANSPEPTIDASE 65 U/L (5-85); HDL CHOLESTEROL 21 MG/DL (40-60); PHOSPHORUS 2.2 MG/DL (2.5-4.9); POTASSIUM 3.7 MMOL/L (3.5-5.1); SODIUM 137 MMOL/L (136-145); TRIGLYCERIDES 93 MG/DL (30-150)
--- NOTE | 2019-05-24 07:52 | NUR ---
NURSE NOTES: Patient non-verbal; on room air, no sing of distress and shortness of breath; no sing of chest pain; IV Right For-Arm 20G NS at 50cc running; Manriquez in place, drains yellow urine; Jevity 1.2 hanged rate 65cc, Limited hours and stopped at 0600 till 1000; no residual; side rails up x2, breaks engaged, bed at lowest position, bed alarm on, call light within reach; will keep monitoring.
[2019-05-24 08:00] VITALS: BP 118/67
[2019-05-24] MEDS: Lisinopril 20mg tab GT SCH (09:47)
[2019-05-24] MEDS: Thiamine 100mg tab GT SCH (09:48)
[2019-05-24] MEDS: Heparin 5000 units/ml inj SUBQ SCH ×2 (09:49→20:37)
[2019-05-24] MEDS: Acetaminophen 650mg/20.3ml GT PRN (10:41)
[2019-05-24 12:00] VITALS: BP 110/57
[2019-05-24] MEDS ORDERED: Potassium Phosphate 15mm/250ml 250 ML IVPB ONE (12:00)
[2019-05-24] MEDS ORDERED: Ertapenem 1 GM in NS 55 ML IVPB SCH (12:00)
--- NOTE | 2019-05-24 12:03 | General Progress Note ---
Assessment/Plan Assessment/Plan: 73 year old man with history of advanced dementia (bedbound, nonverbal, PEG dependent at baseline), dysphagia s/p PEG, HTN, depression, anemia of chronic disease, depression, and bilateral pressure ulcers in heels who presented from rehab facility with fever and hematuria #Sepsis, present on admission #Acute cystitis, possible pyelonpehritis #Hematuria #Pyuria -continue inpatient level of care -continue Invanz -follow up cultures -ID consult appreciated #Dehydration #Hyponatremia, resolved -continue IV saline -Nephrology eval appreciated #Hx of HTN -resume lisinopril #Advance dementia- bed bound, PEG dependent #Functional quadriplegia #Depression #Anemia of chronic disease- stable vte ppx: heparin sc code: full code, POLST reviewed I spent 35 minutes during this encounter, >50% spent on counselling and care coordination. Subjective Date patient seen: May 24, 2019 Time patient seen: 09:13 ROS Limited/Unobtainable: Yes Allergies: Coded Allergies: No Known Allergies (Unverified , 08/20/18) Subjective Follow up for sepsis, gram negative UTI, possible pyelo, hyponatremia Remains febrile to 101.3 Objective Last 24 Hour Vital Signs Date Time Temp Pulse Resp B/P (MAP) Pulse Ox O2 Delivery O2 Flow Rate FiO2 05/24/19 11:11 101.3 05/24/19 09:47 118/67 05/24/19 09:00 Room Air 05/24/19 08:00 101.3 90 20 118/67 (84) 97 05/24/19 07:20 94 Nasal Cannula 2.0 28 05/24/19 04:00 99.0 89 20 139/78 (98) 97 05/24/19 00:00 100.0 95 22 105/59 (74) 95 05/23/19 21:11 Room Air 05/23/19 20:00 100.1 92 20 108/58 (75) 95 05/23/19 16:00 98.1 90 20 110/56 (74) 98 Intake and Output 05/23/19 05/24/19 19:00 07:00 Intake Total 65 ml 735 ml Output Total 600 ml Balance -535 ml 735 ml Intake Free Water 100 ml IV Total 50 ml Tube Feeding 65 ml 585 ml Output Urine Total 600 ml Laboratory Tests 05/24/19 06:20: White Blood Count 9.7, Red Blood Count 3.00L, Hemoglobin 9.0L, Hematocrit 26.5L , Mean Corpuscular Volume 88, Mean Corpuscular Hemoglobin 30.1, Mean Corpuscular Hemoglobin Concent 34.0, Red Cell Distribution Width 13.5, Platelet Count 268, Mean Platelet Volume 5.8L, Neutrophils (%) (Auto) , Lymphocytes (%) ( Auto) , Monocytes (%) (Auto) , Eosinophils (%) (Auto) , Basophils (%) (Auto) , Differential Total Cells Counted 100, Neutrophils % (Manual) 87H, Lymphocytes % (Manual) 10L, Monocytes % (Manual) 3, Eosinophils % (Manual) 0, Basophils % ( Manual) 0, Band Neutrophils 0, Platelet Estimate Adequate, Platelet Morphology Normal, Hypochromasia 2+, Sodium Level 137, Potassium Level 3.7, Chloride Level 102, Carbon Dioxide Level 23, Anion Gap 12, Blood Urea Nitrogen 17, Creatinine 0.8, Estimat Glomerular Filtration Rate > 60, Glucose Level 133H, Hemoglobin A1c 6.0, Uric Acid 3.4, Calcium Level 8.9, Phosphorus Level 2.2L, Magnesium Level 1.9, Total Bilirubin 0.2, Gamma Glutamyl Transpeptidase 65, Aspartate Amino Transf (AST/SGOT) 71H, Alanine Aminotransferase (ALT/SGPT) 103H, Alkaline Phosphatase 120H, C-Reactive Protein, Quantitative 28.6H, Pro-B-Type Natriuretic Peptide 625H, Total Protein 7.6, Albumin 2.7L, Globulin 4.9, Albumin /Globulin Ratio 0.6L, Triglycerides Level 93, Cholesterol Level 92, LDL Cholesterol 48, HDL Cholesterol 21L, Cholesterol/HDL Ratio 4.4, Thyroid Stimulating Hormone (TSH) 1.177 Height (Feet): 5 Height (Inches): 6.00 Weight (Pounds): 103 General Appearance: alert, confused Neck: normal alignment, supple Cardiovascular: normal rate Respiratory/Chest: lungs clear, normal breath sounds Abdomen: non tender, soft Wei Neves MD May 24, 2019 12:03
--- NOTE | 2019-05-24 12:45 | Nephrology Progress Note ---
Assessment/Plan Problem List: (1) Dehydration (2) Hyponatremia (3) UTI (urinary tract infection) (4) Decubitus skin ulcer (5) BPH (benign prostatic hyperplasia) Assessment Acute metabolic encephalopathy UTI Dehydration, hyponatremia improved with saline infusion Patient has Manriquez catheter and GT tube Advance dementia- bed bound, PEG dependent Depression Anemia of most likely chronic disease- stable Hx of HTN Elevated liver enzymes Plan Slow saline infusion Monitor electrolytes Antibiotics for UTI Parameters for blood pressure medications Avoid nephrotoxics Subjective ROS Limited/Unobtainable: No Constitutional: Reports: malaise Objective Objective Last 24 Hour Vital Signs Date Time Temp Pulse Resp B/P (MAP) Pulse Ox O2 Delivery O2 Flow Rate FiO2 05/24/19 11:11 101.3 05/24/19 09:47 118/67 05/24/19 09:00 Room Air 05/24/19 08:00 101.3 90 20 118/67 (84) 97 05/24/19 07:20 94 Nasal Cannula 2.0 28 05/24/19 04:00 99.0 89 20 139/78 (98) 97 05/24/19 00:00 100.0 95 22 105/59 (74) 95 05/23/19 21:11 Room Air 05/23/19 20:00 100.1 92 20 108/58 (75) 95 05/23/19 16:00 98.1 90 20 110/56 (74) 98 Intake and Output 05/23/19 05/24/19 18:59 06:59 Intake Total 750 ml Output Total 600 ml Balance -600 ml 750 ml Intake Free Water 100 ml Tube Feeding 650 ml Output Urine Total 600 ml Laboratory Tests 05/24/19 06:20: White Blood Count 9.7, Red Blood Count 3.00L, Hemoglobin 9.0L, Hematocrit 26.5L , Mean Corpuscular Volume 88, Mean Corpuscular Hemoglobin 30.1, Mean Corpuscular Hemoglobin Concent 34.0, Red Cell Distribution Width 13.5, Platelet Count 268, Mean Platelet Volume 5.8L, Neutrophils (%) (Auto) , Lymphocytes (%) ( Auto) , Monocytes (%) (Auto) , Eosinophils (%) (Auto) , Basophils (%) (Auto) , Differential Total Cells Counted 100, Neutrophils % (Manual) 87H, Lymphocytes % (Manual) 10L, Monocytes % (Manual) 3, Eosinophils % (Manual) 0, Basophils % ( Manual) 0, Band Neutrophils 0, Platelet Estimate Adequate, Platelet Morphology Normal, Hypochromasia 2+, Sodium Level 137, Potassium Level 3.7, Chloride Level 102, Carbon Dioxide Level 23, Anion Gap 12, Blood Urea Nitrogen 17, Creatinine 0.8, Estimat Glomerular Filtration Rate > 60, Glucose Level 133H, Hemoglobin A1c 6.0, Uric Acid 3.4, Calcium Level 8.9, Phosphorus Level 2.2L, Magnesium Level 1.9, Total Bilirubin 0.2, Gamma Glutamyl Transpeptidase 65, Aspartate Amino Transf (AST/SGOT) 71H, Alanine Aminotransferase (ALT/SGPT) 103H, Alkaline Phosphatase 120H, C-Reactive Protein, Quantitative 28.6H, Pro-B-Type Natriuretic Peptide 625H, Total Protein 7.6, Albumin 2.7L, Globulin 4.9, Albumin /Globulin Ratio 0.6L, Triglycerides Level 93, Cholesterol Level 92, LDL Cholesterol 48, HDL Cholesterol 21L, Cholesterol/HDL Ratio 4.4, Thyroid Stimulating Hormone (TSH) 1.177 Height (Feet): 5 Height (Inches): 6.00 Weight (Pounds): 103 General Appearance: lethargic, other Cardiovascular: tachycardia Respiratory/Chest: decreased breath sounds Abdomen: soft Genitourinary/Rectal: other - Has Manriquez catheter Minh Phipps MD May 24, 2019 12:44
--- NOTE | 2019-05-24 13:37 | NUR ---
RD ASSESSMENT & RECOMMENDATIONS SEE CARE ACTIVITY FOR COMPLETE ASSESSMENT DAILY ESTIMATED NEEDS: Needs based on wasting, wounds/ 49kg 30-35 kcals/kg 1527-1879 total kcals 1.25-1.5 g protein/kg 61-74 g total protein 25-30 mL/kg 8909-7873 total fluid mLs NUTRITION DIAGNOSIS: * Swallowing difficulty R/T dysphagia as evidenced by pt is PEG dep. * Increased kcal/prot intake needs R/T wound healing and wasting as evidenced by pt admitted wounds, pending eval, noted w/ moderate generalized wasting. * Altered nutrition related lab values R/T prediabetes as evidenced by A1C of 6.0. CURRENT TF:Jevity 1.2 @ 65ml/hr x 20 hrs ENTERAL NUTRITION RECOMMENDATIONS: TF CHANGE-> Glucerna 1.2 @ 55ml/hr x 24 hrs to provide 1320ml, 1584kcal, 79g prot, 1063ml free water * REC TF CHANGE TO GLUCERNA 1.2- A1C of 6.0 * Start @25ml/hr, advance as tolerated 15ml/hr q4-6 hrs to goal * HOB over 30 degrees * Water flush of 100ml q 6 hrs without IVF ADDITIONAL RECOMMENDATIONS: * Calibrated bedscale wt * Monitor BGs, need for NISS: A1C 6.0 Pt will benefit from carb controlled TF formula, rec TF change as above * Wound care: f/up w/ WC eval Add YUNOIR in 4oz H2O via GT BID * Monitor lytes, replete as needed .
[2019-05-24 16:00] VITALS: BP 116/63
--- NOTE | 2019-05-24 19:25 | NUR ---
HAND-OFF: Report given to ANTOINETTE Chatman.
[2019-05-24 20:00] VITALS: BP 108/64
--- NOTE | 2019-05-24 20:27 | NUR ---
NURSE NOTES: Received patient in bed, asleep, patient is non verbal, confused, disoriented, bed bound, easily arousable. IV site is clean dry and intact, g tube feeding noted patient tolerating well, no residual. Patient arrived to unit with duggan catheter, draining clear yellow urine.
[2019-05-25] VITALS: BP 111/59
--- NOTE | 2019-05-25 01:30 | Progress Note ---
DATE: 05/23/2019 SUBJECTIVE: The patient is confused, episodes of agitation. Continues to need Ativan p.r.n., in restraints. Family members are at bedside. MENTAL STATUS EXAMINATION: The patient is confused. Mood is agitated. Affect is flat. Thought process is concrete. Thought content, no suicidal or homicidal ideation. Cognition is impaired. Insight and judgment impaired. ASSESSMENT: Alcohol dependence, alcohol withdrawal. PLAN: 1. We will continue current psychotropic medications. 2. We will continue to follow and readjust the medications. Rob Baltazar M.D. DR: ROSA JOB#: [id number] CC:
[2019-05-25] MEDS: Ertapenem 1 GM in NS 55 ML IVPB SCH (01:32)
[2019-05-25 04:00] VITALS: BP 107/63
[2019-05-25 07:08] LABS: HEMATOCRIT 23.8 % (42.0-52.0); HEMOGLOBIN 7.9 G/DL (14.2-18.0); MEAN CORPUSCULAR VOLUME 89 FL (80-99); PLATELET COUNT 267 K/UL (150-450); RED BLOOD COUNT 2.68 M/UL (4.70-6.10); RED CELL DISTRIBUTION WIDTH 14.4 % (11.6-14.8); WHITE BLOOD COUNT 6.6 K/UL (4.8-10.8)
--- NOTE | 2019-05-25 07:13 | NUR ---
HAND-OFF: Report given to ANTOINETTE Carnes.
--- NOTE | 2019-05-25 07:20 | NUR ---
NURSE NOTES: Patient awake, non-verbal; on room air, no sing of distress and shortness of breath; no sing of chest pain; IV Right For-Arm 20G NS 50cc running; Manriquez in place drains yellow urine; patient contracted both upper and lower extremities; Tube feeding Jevity 1.2, stopped by PM nurse till 1000; no residual, head of the bed elevated, side rails up x2, breaks engaged, bed alarm on; call light within reach; dressings dry and intact; will keep monitoring.
[2019-05-25 07:25] LABS: ANION GAP 14 mmol/L (5-15); BLOOD UREA NITROGEN 14 mg/dL (7-18); CALCIUM 8.7 MG/DL (8.5-10.1); CARBON DIOXIDE 21 MMOL/L (21-32); CHLORIDE 107 MMOL/L (98-107); CREATININE 0.8 MG/DL (0.55-1.30); POTASSIUM 3.4 MMOL/L (3.5-5.1); SODIUM 142 MMOL/L (136-145)
[2019-05-25 08:48] VITALS: BP 118/62
[2019-05-25] MEDS: Thiamine 100mg tab GT SCH (08:49)
[2019-05-25] MEDS: Acetaminophen 650mg/20.3ml GT PRN (08:51)
[2019-05-25] MEDS: Lisinopril 20mg tab GT SCH (08:51)
[2019-05-25] MEDS: Heparin 5000 units/ml inj SUBQ SCH ×2 (08:52→21:35)
[2019-05-25 12:00] VITALS: BP 104/64
--- NOTE | 2019-05-25 12:01 | General Progress Note ---
Assessment/Plan Assessment/Plan: 73 year old man with history of advanced dementia (bedbound, nonverbal, PEG dependent at baseline), dysphagia s/p PEG, HTN, depression, anemia of chronic disease, depression, and bilateral pressure ulcers in heels who presented from rehab facility with fever and hematuria #Sepsis, present on admission #Serratia acute cystitis, possible pyelonpehritis #Hematuria #Pyuria #Elevated CRP -continue inpatient level of care -continue Invanz -follow up cultures -ID consult appreciated -Surgery consulted for wounds #Acute on chronic anemia -likely sepsis related BM suppression -cont to monitor CBC #Dehydration #Hyponatremia, resolved -continue IV saline -Nephrology following #Hx of HTN -cont isinopril #Advance dementia- bed bound, PEG dependent #Functional quadriplegia #Depression #Anemia of chronic disease- stable vte ppx: heparin sc code: full code, POLST reviewed I spent 35 minutes during this encounter, >50% spent on counselling and care coordination. Subjective Date patient seen: May 25, 2019 Time patient seen: 11:13 ROS Limited/Unobtainable: Yes Allergies: Coded Allergies: No Known Allergies (Unverified , 08/20/18) Subjective Follow up for sepsis, serratia UTI, possible pyelo, hyponatremia Fevers improved CRP noted to be markedly elevated Objective Last 24 Hour Vital Signs Date Time Temp Pulse Resp B/P (MAP) Pulse Ox O2 Delivery O2 Flow Rate FiO2 05/25/19 09:40 95 Nasal Cannula 2.0 28 05/25/19 09:21 98.0 05/25/19 09:00 Room Air 05/25/19 08:51 118/62 05/25/19 08:48 100.8 79 18 118/62 (80) 96 05/25/19 04:00 97.0 80 18 107/63 (78) 96 05/25/19 00:00 98.0 78 18 111/59 (76) 96 05/24/19 22:48 Room Air 05/24/19 20:00 97.5 82 21 108/64 (79) 97 05/24/19 19:58 96 Nasal Cannula 2.0 28 05/24/19 16:00 99.7 92 20 116/63 (80) 95 05/24/19 12:00 99.5 84 20 110/57 (74) 96 Intake and Output 05/24/19 05/25/19 19:00 07:00 Intake Total 1222.5 ml 735 ml Output Total 1200 ml Balance 1222.5 ml -465 ml Intake Free Water 200 ml 100 ml IV Total 437.5 ml 50 ml Tube Feeding 585 ml 585 ml Output Urine Total 1200 ml Laboratory Tests 05/25/19 05:16: White Blood Count 6.6, Red Blood Count 2.68L, Hemoglobin 7.9L, Hematocrit 23.8L , Mean Corpuscular Volume 89, Mean Corpuscular Hemoglobin 29.5, Mean Corpuscular Hemoglobin Concent 33.3, Red Cell Distribution Width 14.4, Platelet Count 267, Mean Platelet Volume 5.4L, Neutrophils (%) (Auto) , Lymphocytes (%) ( Auto) , Monocytes (%) (Auto) , Eosinophils (%) (Auto) , Basophils (%) (Auto) , Differential Total Cells Counted 100, Neutrophils % (Manual) 64, Lymphocytes % ( Manual) 31, Monocytes % (Manual) 5, Eosinophils % (Manual) 0, Basophils % ( Manual) 0, Band Neutrophils 0, Platelet Estimate Adequate, Platelet Morphology Normal, Anisocytosis 1+, Sodium Level 142, Potassium Level 3.4L, Chloride Level 107, Carbon Dioxide Level 21, Anion Gap 14, Blood Urea Nitrogen 14, Creatinine 0.8, Estimat Glomerular Filtration Rate > 60, Glucose Level 106, Calcium Level 8.7 Height (Feet): 5 Height (Inches): 6.00 Weight (Pounds): 101 General Appearance: alert, confused Cardiovascular: normal rate, regular rhythm Respiratory/Chest: lungs clear, normal breath sounds, no respiratory distress Abdomen: non tender, soft Wei Neves MD May 25, 2019 12:01
--- NOTE | 2019-05-25 12:31 | Nephrology Progress Note ---
Assessment/Plan Problem List: (1) Dehydration (2) Hyponatremia (3) UTI (urinary tract infection) (4) Decubitus skin ulcer (5) BPH (benign prostatic hyperplasia) (6) Severe malnutrition Assessment: With multiple decubiti Assessment Acute metabolic encephalopathy UTI Dehydration, hyponatremia improved with saline infusion Patient has Manriquez catheter and GT tube Advance dementia- bed bound, PEG dependent Depression Anemia of most likely chronic disease- stable Hx of HTN Elevated liver enzymes Plan Slow saline infusion Monitor electrolytes Antibiotics for UTI Parameters for blood pressure medications Avoid nephrotoxics Subjective ROS Limited/Unobtainable: No Constitutional: Reports: malaise, weakness Objective Objective Last 24 Hour Vital Signs Date Time Temp Pulse Resp B/P (MAP) Pulse Ox O2 Delivery O2 Flow Rate FiO2 05/25/19 09:40 95 Nasal Cannula 2.0 28 05/25/19 09:21 98.0 05/25/19 09:00 Room Air 05/25/19 08:51 118/62 05/25/19 08:48 100.8 79 18 118/62 (80) 96 05/25/19 04:00 97.0 80 18 107/63 (78) 96 05/25/19 00:00 98.0 78 18 111/59 (76) 96 05/24/19 22:48 Room Air 05/24/19 20:00 97.5 82 21 108/64 (79) 97 05/24/19 19:58 96 Nasal Cannula 2.0 28 05/24/19 16:00 99.7 92 20 116/63 (80) 95 Intake and Output 05/24/19 05/25/19 19:00 07:00 Intake Total 1222.5 ml 735 ml Output Total 1200 ml Balance 1222.5 ml -465 ml Intake Free Water 200 ml 100 ml IV Total 437.5 ml 50 ml Tube Feeding 585 ml 585 ml Output Urine Total 1200 ml Laboratory Tests 05/25/19 05:16: White Blood Count 6.6, Red Blood Count 2.68L, Hemoglobin 7.9L, Hematocrit 23.8L , Mean Corpuscular Volume 89, Mean Corpuscular Hemoglobin 29.5, Mean Corpuscular Hemoglobin Concent 33.3, Red Cell Distribution Width 14.4, Platelet Count 267, Mean Platelet Volume 5.4L, Neutrophils (%) (Auto) , Lymphocytes (%) ( Auto) , Monocytes (%) (Auto) , Eosinophils (%) (Auto) , Basophils (%) (Auto) , Differential Total Cells Counted 100, Neutrophils % (Manual) 64, Lymphocytes % ( Manual) 31, Monocytes % (Manual) 5, Eosinophils % (Manual) 0, Basophils % ( Manual) 0, Band Neutrophils 0, Platelet Estimate Adequate, Platelet Morphology Normal, Anisocytosis 1+, Sodium Level 142, Potassium Level 3.4L, Chloride Level 107, Carbon Dioxide Level 21, Anion Gap 14, Blood Urea Nitrogen 14, Creatinine 0.8, Estimat Glomerular Filtration Rate > 60, Glucose Level 106, Calcium Level 8.7 Height (Feet): 5 Height (Inches): 6.00 Weight (Pounds): 101 General Appearance: no apparent distress, lethargic, other - Nonverbal Cardiovascular: normal rate Respiratory/Chest: decreased breath sounds Abdomen: distended Minh Phipps MD May 25, 2019 12:31
--- NOTE | 2019-05-25 12:52 | NUR ---
CASE MANAGEMENT:REVIEW SI;SEPSIS. UTI. ANEMIA. 100.0 80 18 108/63 95% 2L NC FIO2 @ 28% H/H 7.9/23.8 K+ 3.4 IS;K CL IV ONCE ERTAPENEM IV Q24 HRS IVF NS @ 50 ML/HR HEPARIN SUBQ Q12 HRS DUO NEB HHN Q6 HRS TRAMADOL GT Q6 HRS PRN MED SURG STATUS PLAN OF CARE; FOLLOW UP CX MONITOR CBC CONTINUE IV SALINE HEPARIN DCP;FROM [facility]
--- NOTE | 2019-05-25 15:18 | Consultation ---
History of Present Illness General Date patient seen: May 25, 2019 Chief Complaint: Fever Present Illness HPI 73 year old male with multiple medical comorbidities who presented to [facility] from facility for evaluation to abnormal labs, fever, and micro. started on IV abx and admitted for care. noted to have multiple open wounds. noted to have abnormal lft's. surgery called to evaluate and assist with care. patient seen, chart reviewed, patient examined. no n/v/f/c. cannot obtain history from patient. labs reviewed, imaging reviewed. Allergies: Coded Allergies: No Known Allergies (Unverified , 08/20/18) Medication History Scheduled Amino Acids/Protein Hydrolys (Pro-Stat Liquid), 30 ML GT DAILY, (Reported) Cholecalciferol (Vitamin D3) (Vitamin D3), 1 ML MC TID, (Reported) Cyanocobalamin (Vitamin B-12) (Vitamin B-12), 1,000 MCG GT DAILY, (Reported) Ergocalciferol (Vitamin D2)* (Vitamin D*), 50,000 UNIT GT ONCE A WEEK, (Reported ) Finasteride* (Proscar*), 5 MG GT DAILY, (Reported) Lisinopril* (Lisinopril*), 10 MG GT DAILY, (Reported) Pantoprazole Sodium (Protonix), 40 MG GT DAILY Rbzhaqohmcjm-Ghvl-Yhricbri,Iso (Zosyn 3.375 Gm Pre Mix-Bag), 3.375 GM IVPB EVERY 8 HOURS Potassium Chloride (K-Tab ER), 20 MEQ ORAL DAILY Tamsulosin HCl (Flomax), 0.4 MG GT DAILY, (Reported) Thiamine Hcl* (Vitamin B-1*), 100 MG GT DAILY, (Reported) Scheduled PRN Acetaminophen* (Acetaminophen 325MG Tablet*), 650 MG GT Q6H PRN for Mild Pain/ Temp > 100.5, (Reported) Chlorpromazine (Chlorpromazine HCl), 25 MG GT EVERY 8 HOURS PRN for HICCUPS, ( Reported) Hydralazine Hcl* (Hydralazine Hcl*), 25 MG GT EVERY 6 HOURS PRN for SBP > 160, ( Reported) Ipratropium/Albuterol Sulfate (Iprat-Albut 0.5-3(2.5) Mg/3 Ml), 3 ML IH Q6HR PRN for Shortness of Breath, (Reported) Ondansetron* (Zofran*), 4 MG GT Q6H PRN for Nausea & Vomiting, (Reported) Tramadol Hcl* (Ultram*), 50 MG GT DAILY PRN for For Pain, (Reported) Patient History Healthcare decision maker Resuscitation status Advanced Directive on File Review of Systems All Other Systems: negative except mentioned in HPI ROS Narrative difficult to obtain given medical condition Physical Exam General Appearance: no apparent distress Lines, tubes and drains: peripheral HEENT: mucous membranes moist Neck: supple, normal inspection Respiratory/Chest: normal breath sounds, no respiratory distress, no accessory muscle use Cardiovascular/Chest: normal peripheral pulses, normal rate, regular rhythm Abdomen: soft, no organomegaly, no mass, feeding tube, other Extremities: normal inspection, no calf tenderness, non-pitting Skin Exam: warm/dry Neurologic: alert Last 24 Hour Vital Signs Date Time Temp Pulse Resp B/P (MAP) Pulse Ox O2 Delivery O2 Flow Rate FiO2 05/25/19 12:00 98.2 69 18 104/64 (77) 96 05/25/19 09:40 95 Nasal Cannula 2.0 28 05/25/19 09:21 98.0 05/25/19 09:00 Room Air 05/25/19 08:51 118/62 05/25/19 08:48 100.8 79 18 118/62 (80) 96 05/25/19 04:00 97.0 80 18 107/63 (78) 96 05/25/19 00:00 98.0 78 18 111/59 (76) 96 05/24/19 22:48 Room Air 05/24/19 20:00 97.5 82 21 108/64 (79) 97 05/24/19 19:58 96 Nasal Cannula 2.0 28 05/24/19 16:00 99.7 92 20 116/63 (80) 95 Intake and Output 05/24/19 05/25/19 19:00 07:00 Intake Total 1222.5 ml 735 ml Output Total 1200 ml Balance 1222.5 ml -465 ml Intake Free Water 200 ml 100 ml IV Total 437.5 ml 50 ml Tube Feeding 585 ml 585 ml Output Urine Total 1200 ml Laboratory Tests Test 05/25/19 05:16 White Blood Count 6.6 K/UL (4.8-10.8) Red Blood Count 2.68 M/UL (4.70-6.10) L Hemoglobin 7.9 G/DL (14.2-18.0) L Hematocrit 23.8 % (42.0-52.0) L Mean Corpuscular Volume 89 FL (80-99) Mean Corpuscular Hemoglobin 29.5 PG (27.0-31.0) Mean Corpuscular Hemoglobin Concent 33.3 G/DL (32.0-36.0) Red Cell Distribution Width 14.4 % (11.6-14.8) Platelet Count 267 K/UL (150-450) Mean Platelet Volume 5.4 FL (6.5-10.1) L Neutrophils (%) (Auto) % (45.0-75.0) Lymphocytes (%) (Auto) % (20.0-45.0) Monocytes (%) (Auto) % (1.0-10.0) Eosinophils (%) (Auto) % (0.0-3.0) Basophils (%) (Auto) % (0.0-2.0) Differential Total Cells Counted 100 Neutrophils % (Manual) 64 % (45-75) Lymphocytes % (Manual) 31 % (20-45) Monocytes % (Manual) 5 % (1-10) Eosinophils % (Manual) 0 % (0-3) Basophils % (Manual) 0 % (0-2) Band Neutrophils 0 % (0-8) Platelet Estimate Adequate Platelet Morphology Normal Anisocytosis 1+ Sodium Level 142 MMOL/L (136-145) Potassium Level 3.4 MMOL/L (3.5-5.1) L Chloride Level 107 MMOL/L (98-107) Carbon Dioxide Level 21 MMOL/L (21-32) Anion Gap 14 mmol/L (5-15) Blood Urea Nitrogen 14 mg/dL (7-18) Creatinine 0.8 MG/DL (0.55-1.30) Estimat Glomerular Filtration Rate > 60 mL/min (>60) Glucose Level 106 MG/DL (74-106) Calcium Level 8.7 MG/DL (8.5-10.1) Height (Feet): 5 Height (Inches): 6.00 Weight (Pounds): 101 Medications Current Medications Medications (Trade) Dose Ordered Sig/Altagracia Route PRN Reason Start Time Stop Time Status Last Admin Dose Admin Acetaminophen (Tylenol) 650 mg Q4H PRN GT Mild Pain/Temp > 100.5 05/23/19 11:15 06/22/19 11:14 05/25/19 08:51 Albuterol/ Ipratropium (Albuterol/ Ipratropium) 3 ml Q6HR PRN HHN Shortness of Breath 05/23/19 08:15 05/28/19 08:14 Dextrose (Dextrose 50%) 25 ml Q30M PRN IV Hypoglycemia 05/23/19 08:15 06/22/19 08:14 Dextrose (Dextrose 50%) 50 ml Q30M PRN IV Hypoglycemia 05/23/19 08:15 06/22/19 08:14 Ertapenem 1 gm/ Sodium Chloride 55 ml @ 110 mls/hr Q24H IVPB 05/24/19 02:00 05/29/19 01:59 05/25/19 01:32 Heparin Sodium (Porcine) (Heparin 5000 units/ml) 5,000 units EVERY 12 HOURS SUBQ 05/23/19 09:00 06/22/19 08:59 05/25/19 08:52 Hydralazine HCl (Apresoline) 25 mg Q4H PRN GT SBP > 160 05/23/19 18:15 06/22/19 18:14 Lisinopril (PriniviL) 10 mg DAILY GT 05/24/19 09:00 06/22/19 08:59 05/25/19 08:51 Lorazepam (Ativan) 1 mg Q6H PRN ORAL For Anxiety 05/24/19 00:00 05/31/19 00:00 Sodium Chloride 1,000 ml @ 50 mls/hr Q20H IV 05/23/19 18:15 06/22/19 18:14 05/25/19 11:52 Thiamine HCl (Vitamin B1) 100 mg DAILY GT 05/23/19 09:00 06/22/19 08:59 05/25/19 08:49 Tramadol HCl (Ultram) 50 mg DAILY PRN GT For Pain 05/23/19 08:15 05/30/19 08:14 Assessment/Plan Problem List: (1) Failure to thrive syndrome, adult Assessment & Plan: cont feeds monitor labs as tolerated will continue needs close monitoring ICD Codes: R62.7 - Failure to thrive syndrome, adult SNOMED: 161975166 (2) Severe malnutrition Assessment & Plan: DAILY ESTIMATED NEEDS: Needs based on wasting, wounds/ 49kg 30-35 kcals/kg 5937-6951 total kcals 1.25-1.5 g protein/kg 61-74 g total protein 25-30 mL/kg 1401-1649 total fluid mLs NUTRITION DIAGNOSIS: * Swallowing difficulty R/T dysphagia as evidenced by pt is PEG dep. * Increased kcal/prot intake needs R/T wound healing and wasting as evidenced by pt admitted wounds, pending eval, noted w/ moderate generalized wasting. * Altered nutrition related lab values R/T prediabetes as evidenced by A1C of 6.0. CURRENT TF:Jevity 1.2 @ 65ml/hr x 20 hrs ENTERAL NUTRITION RECOMMENDATIONS: TF CHANGE-> Glucerna 1.2 @ 55ml/hr x 24 hrs to provide 1320ml, 1584kcal, 79g prot, 1063ml free water * REC TF CHANGE TO GLUCERNA 1.2- A1C of 6.0 * Start @25ml/hr, advance as tolerated 15ml/hr q4-6 hrs to goal * HOB over 30 degrees * Water flush of 100ml q 6 hrs without IVF ADDITIONAL RECOMMENDATIONS: * Calibrated bedscale wt * Monitor BGs, need for NISS: A1C 6.0 Pt will benefit from carb controlled TF formula, rec TF change as above * Wound care: f/up w/ WC eval Add YUNIOR in 4oz H2O via GT BID * Monitor lytes, replete as needed ICD Codes: E43 - Unspecified severe protein-calorie malnutrition SNOMED: 81100324 (3) Decubitus skin ulcer ICD Codes: L89.90 - Pressure ulcer of unspecified site, unspecified stage SNOMED: 959516806 (4) Elevated LFTs Assessment & Plan: abnormal lf'ts US ordered likely med related trend will follow with recs thank you ICD Codes: R94.5 - Abnormal results of liver function studies SNOMED: 043112506, [id number] eRji Guy May 25, 2019 15:18
[2019-05-25 16:00] VITALS: BP 117/65
--- NOTE | 2019-05-25 19:10 | NUR ---
NURSE NOTES: Received patient on bed, awake Addendum: 05/25/19 at 2336 by Blanquita Navas RN non-verbal. with gt runnung jevity 1.2 @ 65 ml/hr x 20 hours. duggan catheter draining a light yellow. iv line on the right forearm at 20g running ns @ 50 ml/hr. patient is contracted on both upper and lower extremities. put pillow in between legs. elevated bilateral arms. keep head of bed elevated. bed locked and in lowest position. call light and light button within easy reach. will reposition q2 hours.will continue plan of care.
--- NOTE | 2019-05-25 19:44 | NUR ---
HAND-OFF: Report given to ANTOINETTE Adkins.
--- NOTE | 2019-05-25 19:53 | Infectious Diseases Prog Note ---
Assessment/Plan Assessment/Plan ASSESSMENT AND PLAN: 1. MDR serratia uti, await esbl testing, sepsis, fevers - meropenem - day # 3 abx (was on invanz, likely sensitive but not on panel) - monitor labs and clinically - monitor temps 2. Chest x-ray with atelectasis. 3. Anemia. 4. Hypernatremia. 5. Hypertension. 6. Hypertensive heart disease. 7. History of UTI, pneumonia. 8. Hypertension treatment per primary care team and Nephrology. 9. Wound care protocol. 10. COPD. 11. Dementia. 12. History of failure to thrive. 13. Dysphagia, G-tube. 14. History of hyperkalemia. 15. Continue treatment per primary consultants. 16. No known allergies. 17. Social history negative. 18. Family history is noncontributory. 19. MAR was noted. 20. Case discussed with RN. 21. Orders were noted and entered. Subjective Constitutional: Reports: fever HEENT: Reports: congestion Respiratory: Denies: shortness of breath Cardiovascular: Denies: chest pain Gastrointestinal/Abdominal: Denies: nausea, vomiting, diarrhea Genitourinary: Reports: other - + duggan Neurologic: Reports: weakness, other - opens eyes Psychiatric: Reports: other - NA Skin: Denies: rash Hematologic: Denies: bleeding Musculoskeletal: Denies: pain Allergies: Coded Allergies: No Known Allergies (Unverified , 08/20/18) Objective Vital Signs Last 24 Hour Vital Signs Date Time Temp Pulse Resp B/P (MAP) Pulse Ox O2 Delivery O2 Flow Rate FiO2 05/25/19 16:00 98.2 67 20 117/65 (82) 96 05/25/19 12:00 98.2 69 18 104/64 (77) 96 05/25/19 09:40 95 Nasal Cannula 2.0 28 05/25/19 09:21 98.0 05/25/19 09:00 Room Air 05/25/19 08:51 118/62 05/25/19 08:48 100.8 79 18 118/62 (80) 96 05/25/19 04:00 97.0 80 18 107/63 (78) 96 05/25/19 00:00 98.0 78 18 111/59 (76) 96 05/24/19 22:48 Room Air 3/10/20 20:00 97.5 82 21 108/64 (79) 97 05/24/19 19:58 96 Nasal Cannula 2.0 28 Height (Feet): 5 Height (Inches): 6.00 Weight (Pounds): 101 General Appearance: no acute distress HEENT: normocephalic, atraumatic, anicteric, mucous membranes moist Respiratory/Chest: lungs clear, normal breath sounds, no respiratory distress, no accessory muscle use Cardiovascular: normal rate, regular rhythm, no gallop/murmur, no JVD Abdomen: normal bowel sounds, soft, non tender, no organomegaly, non distended Genitourinary: other - + duggan - urine Extremities: no cyanosis Skin: no rash 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 Findings: There is suggestion of mild basal atelectasis. No infiltrate seen. The evaluation is limited by severe rotation. Heart size is probably normal. Bones are osteopenic. IMPRESSION: Suspected mild basal atelectasis. Microbiology Date/Time Source Procedure Growth Status 05/23/19 02:45 Blood Blood Culture - Preliminary NO GROWTH AFTER 48 HOURS Resulted 05/23/19 02:30 Blood Blood Culture - Preliminary NO GROWTH AFTER 48 HOURS Resulted 05/23/19 04:35 Nasal Nares MRSA Culture - Final NO METHICILLIN RESISTANT STAPH AUREUS... Complete 05/23/19 02:42 Urine,Clean Catch Urine Culture - Preliminary Serratia Species Resulted 05/23/19 04:35 Rectum - Final NO CARBAPENEM-RESISTANT ENTEROBACTERI... Complete Laboratory Tests Test 05/25/19 05:16 White Blood Count 6.6 K/UL (4.8-10.8) Red Blood Count 2.68 M/UL (4.70-6.10) L Hemoglobin 7.9 G/DL (14.2-18.0) L Hematocrit 23.8 % (42.0-52.0) L Mean Corpuscular Volume 89 FL (80-99) Mean Corpuscular Hemoglobin 29.5 PG (27.0-31.0) Mean Corpuscular Hemoglobin Concent 33.3 G/DL (32.0-36.0) Red Cell Distribution Width 14.4 % (11.6-14.8) Platelet Count 267 K/UL (150-450) Mean Platelet Volume 5.4 FL (6.5-10.1) L Neutrophils (%) (Auto) % (45.0-75.0) Lymphocytes (%) (Auto) % (20.0-45.0) Monocytes (%) (Auto) % (1.0-10.0) Eosinophils (%) (Auto) % (0.0-3.0) Basophils (%) (Auto) % (0.0-2.0) Differential Total Cells Counted 100 Neutrophils % (Manual) 64 % (45-75) Lymphocytes % (Manual) 31 % (20-45) Monocytes % (Manual) 5 % (1-10) Eosinophils % (Manual) 0 % (0-3) Basophils % (Manual) 0 % (0-2) Band Neutrophils 0 % (0-8) Platelet Estimate Adequate Platelet Morphology Normal Anisocytosis 1+ Sodium Level 142 MMOL/L (136-145) Potassium Level 3.4 MMOL/L (3.5-5.1) L Chloride Level 107 MMOL/L (98-107) Carbon Dioxide Level 21 MMOL/L (21-32) Anion Gap 14 mmol/L (5-15) Blood Urea Nitrogen 14 mg/dL (7-18) Creatinine 0.8 MG/DL (0.55-1.30) Estimat Glomerular Filtration Rate > 60 mL/min (>60) Glucose Level 106 MG/DL (74-106) Calcium Level 8.7 MG/DL (8.5-10.1) Current Medications Medications (Trade) Dose Ordered Sig/Altagracia Route PRN Reason Start Time Stop Time Status Last Admin Dose Admin Acetaminophen (Tylenol) 650 mg Q4H PRN GT Mild Pain/Temp > 100.5 05/23/19 11:15 06/22/19 11:14 05/25/19 08:51 Albuterol/ Ipratropium (Albuterol/ Ipratropium) 3 ml Q6HR PRN HHN Shortness of Breath 05/23/19 08:15 05/28/19 08:14 Dextrose (Dextrose 50%) 25 ml Q30M PRN IV Hypoglycemia 05/23/19 08:15 06/22/19 08:14 Dextrose (Dextrose 50%) 50 ml Q30M PRN IV Hypoglycemia 05/23/19 08:15 06/22/19 08:14 Ertapenem 1 gm/ Sodium Chloride 55 ml @ 110 mls/hr Q24H IVPB 05/24/19 02:00 05/29/19 01:59 05/25/19 01:32 Heparin Sodium (Porcine) (Heparin 5000 units/ml) 5,000 units EVERY 12 HOURS SUBQ 05/23/19 09:00 06/22/19 08:59 05/25/19 08:52 Hydralazine HCl (Apresoline) 25 mg Q4H PRN GT SBP > 160 05/23/19 18:15 06/22/19 18:14 Lisinopril (PriniviL) 10 mg DAILY GT 05/24/19 09:00 06/22/19 08:59 05/25/19 08:51 Lorazepam (Ativan) 1 mg Q6H PRN ORAL For Anxiety 05/24/19 00:00 05/31/19 00:00 Sodium Chloride 1,000 ml @ 50 mls/hr Q20H IV 05/23/19 18:15 06/22/19 18:14 05/25/19 11:52 Thiamine HCl (Vitamin B1) 100 mg DAILY GT 05/23/19 09:00 06/22/19 08:59 05/25/19 08:49 Tramadol HCl (Ultram) 50 mg DAILY PRN GT For Pain 05/23/19 08:15 05/30/19 08:14 Bonny Rincon MD May 25, 2019 19:53
[2019-05-25 20:00] VITALS: BP 128/71
[2019-05-26] VITALS (7 sets, daily range): BP systolic 120–140; BP diastolic 66–77
--- NOTE | 2019-05-26 00:08 | Psych Consult Progress Note ---
Psychiatry Progress Note Psychiatry Progress Note Medications Current Medications Medications (Trade) Dose Ordered Sig/[place] Route PRN Reason Start Time Stop Time Status Last Admin Dose Admin Acetaminophen (Tylenol) 650 mg Q4H PRN GT Mild Pain/Temp > 100.5 05/23/19 11:15 06/22/19 11:14 05/25/19 08:51 Albuterol/ Ipratropium (Albuterol/ Ipratropium) 3 ml Q6HR PRN HHN Shortness of Breath 05/23/19 08:15 05/28/19 08:14 Dextrose (Dextrose 50%) 25 ml Q30M PRN IV Hypoglycemia 05/23/19 08:15 06/22/19 08:14 Dextrose (Dextrose 50%) 50 ml Q30M PRN IV Hypoglycemia 05/23/19 08:15 06/22/19 08:14 Heparin Sodium (Porcine) (Heparin 5000 units/ml) 5,000 units EVERY 12 HOURS SUBQ 05/23/19 09:00 06/22/19 08:59 05/25/19 21:35 Hydralazine HCl (Apresoline) 25 mg Q4H PRN GT SBP > 160 05/23/19 18:15 06/22/19 18:14 Lisinopril (PriniviL) 10 mg DAILY GT 05/24/19 09:00 06/22/19 08:59 05/25/19 08:51 Lorazepam (Ativan) 1 mg Q6H PRN ORAL For Anxiety 05/24/19 00:00 05/31/19 00:00 Meropenem 1 gm/ Sodium Chloride 100 ml @ 200 mls/hr Q8HR IVPB 05/25/19 22:00 05/30/19 21:59 05/25/19 21:34 Sodium Chloride 1,000 ml @ 50 mls/hr Q20H IV 05/23/19 18:15 06/22/19 18:14 05/25/19 11:52 Thiamine HCl (Vitamin B1) 100 mg DAILY GT 05/23/19 09:00 06/22/19 08:59 05/25/19 08:49 Tramadol HCl (Ultram) 50 mg DAILY PRN GT For Pain 05/23/19 08:15 05/30/19 08:14 Neurological/Psychiatric: Reports: anxiety, depressed Allergies: Coded Allergies: No Known Allergies (Unverified , 6/7/19) Objective Data Height (Feet): 5 Height (Inches): 6.00 Weight (Pounds): 101 General Appearance: no apparent distress, alert, confused, agitated Additional Comments: Mood is neutral to anxious. Affect is flat. Thought process is concrete. Thought content, no suicidal or homicidal ideation. Cognition is impaired. Insight and judgment is impaired. ASSESSMENT: [place] I Dementia with behavior disturbance. Acute toxic encephalopathy. [place] II Deferred. [place] III As above. [place] IV Low. [place] V 20 PLAN: 1. We will start the patient on Ativan for agitation. 2. Treat the underlying cause of urinary tract infection and sepsis. 3. Discussed with the nurse. Rob Baltazar MD May 26, 2019 00:08
[2019-05-26] MEDS: Albuterol/Ipratropium 3ml neb HHN PRN ×2 (01:39→23:50)
--- NOTE | 2019-05-26 01:39 | NUR ---
NURSE NOTES: breathing treatment given by PAULETTE (RT).
[2019-05-26] MEDS: Acetaminophen 650mg/20.3ml GT PRN (04:49)
[2019-05-26 06:13] LABS: BASOPHILS % (AUTO) 0.3 % (0.0-2.0); EOSINOPHILS % (AUTO) 0.4 % (0.0-3.0); HEMATOCRIT 24.2 % (42.0-52.0); HEMOGLOBIN 8.1 G/DL (14.2-18.0); LYMPHOCYTES % (AUTO) 20.9 % (20.0-45.0); MEAN CORPUSCULAR VOLUME 89 FL (80-99); MONOCYTES % (AUTO) 5.5 % (1.0-10.0); NEUTROPHILS % (AUTO) 72.9 % (45.0-75.0); PLATELET COUNT 276 K/UL (150-450); RED BLOOD COUNT 2.72 M/UL (4.70-6.10); RED CELL DISTRIBUTION WIDTH 14.4 % (11.6-14.8); WHITE BLOOD COUNT 9.5 K/UL (4.8-10.8)
[2019-05-26 06:38] LABS: ALANINE AMINOTRANSFERASE 131 U/L (12-78); ALBUMIN 2.4 G/DL (3.4-5.0); ALBUMIN/GLOBULIN RATIO 0.5 (1.0-2.7); ALKALINE PHOSPHATASE 98 U/L (46-116); ANION GAP 13 mmol/L (5-15); ASPARTATE AMINO TRANSFERASE 97 U/L (15-37); BILIRUBIN,TOTAL 0.2 MG/DL (0.2-1.0); BLOOD UREA NITROGEN 11 mg/dL (7-18); CALCIUM 8.8 MG/DL (8.5-10.1); CARBON DIOXIDE 22 MMOL/L (21-32); CHLORIDE 107 MMOL/L (98-107); CREATININE 0.7 MG/DL (0.55-1.30); PHOSPHORUS 2.1 MG/DL (2.5-4.9); POTASSIUM 3.3 MMOL/L (3.5-5.1); SODIUM 142 MMOL/L (136-145)
--- NOTE | 2019-05-26 06:44 | NUR ---
NURSE NOTES: called dr. diaz regarding the fever of 100.6 that went down to 99.0 after tylenol was given. left a message,awaiting for call back. charge nurse made aware.
--- NOTE | 2019-05-26 07:33 | NUR ---
HAND-OFF: Report given to henry vicente.
--- NOTE | 2019-05-26 07:40 | NUR ---
HAND-OFF: Patricia CURRY,aware of Fall risk.
[2019-05-26] MEDS: Thiamine 100mg tab GT SCH (08:17)
[2019-05-26] MEDS: Lisinopril 20mg tab GT SCH (08:18)
[2019-05-26] MEDS: Heparin 5000 units/ml inj SUBQ SCH ×2 (08:19→21:31)
--- NOTE | 2019-05-26 08:33 | NUR ---
NURSE NOTES: Patient eyes closed,nonverbal,responds to touch,respirations unlabored.G-tube feedings as ordered,no residual noted.Manriquez catheter is in place and draining yellow urine.G-tube feedings off at this time,will resume feedings in 4 hours.Bed alarm .
--- NOTE | 2019-05-26 10:02 | General Progress Note ---
Assessment/Plan Assessment/Plan: 73 year old man with history of advanced dementia (bedbound, nonverbal, PEG dependent at baseline), dysphagia s/p PEG, HTN, depression, anemia of chronic disease, depression, and bilateral pressure ulcers in heels who presented from rehab facility with fever and hematuria #Sepsis, present on admission #Serratia and Pseudomonas acute cystitis, possible pyelonpehritis #Hematuria #Pyuria #Elevated CRP, improved -continue inpatient level of care -continue Invanz -ID following -Surgery eval appreciated, no appearance of acute wound infection #Acute on chronic anemia -likely sepsis related BM suppression -cont to monitor CBC #Dehydration #Hyponatremia, resolved -continue IV saline -Nephrology following #Hx of HTN -cont isinopril #Advance dementia- bed bound, PEG dependent #Functional quadriplegia #Depression #Anemia of chronic disease- stable vte ppx: heparin sc code: full code, POLST reviewed I spent 35 minutes during this encounter, >50% spent on counselling and care coordination. Subjective Date patient seen: May 26, 2019 Time patient seen: 09:00 ROS Limited/Unobtainable: Yes Allergies: Coded Allergies: No Known Allergies (Unverified , 08/20/18) Subjective Follow up for sepsis, serratia UTI, possible pyelo, hyponatremia Temp 100.6 today CRP improved today Objective Last 24 Hour Vital Signs Date Time Temp Pulse Resp B/P (MAP) Pulse Ox O2 Delivery O2 Flow Rate FiO2 05/26/19 08:41 92 22 98 Nasal Cannula 2.0 28 05/26/19 08:41 98 Nasal Cannula 2.0 28 05/26/19 08:18 120/67 05/26/19 08:13 97.1 64 18 120/67 (84) 98 05/26/19 05:19 99.0 05/26/19 04:00 100.6 91 20 129/66 (87) 96 05/26/19 01:40 76 20 98 Nasal Cannula 2.0 28 72 18 97 05/26/19 00:00 98.8 88 20 140/77 (98) 94 05/25/19 21:00 Room Air 05/25/19 20:00 98 Nasal Cannula 2.0 28 05/25/19 20:00 99.5 78 20 128/71 (90) 97 05/25/19 16:00 98.2 67 20 117/65 (82) 96 05/25/19 12:00 98.2 69 18 104/64 (77) 96 Intake and Output 05/25/19 05/26/19 19:00 07:00 Intake Total 1400 ml 65 ml Output Total 600 ml 800 ml Balance 800 ml -735 ml Intake Free Water 200 ml IV Total 550 ml Tube Feeding 650 ml 65 ml Output Urine Total 600 ml 800 ml # Bowel Movements 1 1 Laboratory Tests 05/26/19 05:30: White Blood Count 9.5, Red Blood Count 2.72L, Hemoglobin 8.1L, Hematocrit 24.2L , Mean Corpuscular Volume 89, Mean Corpuscular Hemoglobin 29.9, Mean Corpuscular Hemoglobin Concent 33.6, Red Cell Distribution Width 14.4, Platelet Count 276, Mean Platelet Volume 5.8L, Neutrophils (%) (Auto) 72.9, Lymphocytes ( %) (Auto) 20.9, Monocytes (%) (Auto) 5.5, Eosinophils (%) (Auto) 0.4, Basophils (%) (Auto) 0.3, Sodium Level 142, Potassium Level 3.3L, Chloride Level 107, Carbon Dioxide Level 22, Anion Gap 13, Blood Urea Nitrogen 11, Creatinine 0.7, Estimat Glomerular Filtration Rate > 60, Glucose Level 138H, Calcium Level 8.8, Phosphorus Level 2.1L, Magnesium Level 1.9, Total Bilirubin 0.2, Aspartate Amino Transf (AST/SGOT) 97H, Alanine Aminotransferase (ALT/SGPT) 131H, Alkaline Phosphatase 98, C-Reactive Protein, Quantitative 16.2H, Pro-B-Type Natriuretic Peptide [Pending], Total Protein 6.8, Albumin 2.4L, Globulin 4.4, Albumin/ Globulin Ratio 0.5L Height (Feet): 5 Height (Inches): 6.00 Weight (Pounds): 101 General Appearance: no apparent distress, confused Neck: normal alignment, supple Cardiovascular: regular rhythm Respiratory/Chest: lungs clear, normal breath sounds Abdomen: non tender, soft Wei Neves MD May 26, 2019 10:02
[2019-05-26] MEDS ORDERED: Potassium Phosphate 20 MM in NS 275 ML IV ONE (11:15)
--- NOTE | 2019-05-26 15:00 | Nephrology Progress Note ---
Assessment/Plan Problem List: (1) Dehydration (2) Hyponatremia (3) UTI (urinary tract infection) (4) Decubitus skin ulcer (5) BPH (benign prostatic hyperplasia) (6) Severe malnutrition Assessment: With multiple decubiti Assessment Acute metabolic encephalopathy UTI Dehydration, hyponatremia improved with saline infusion Patient has Manriquez catheter and GT tube Advance dementia- bed bound, PEG dependent Depression Anemia of most likely chronic disease- stable Hx of HTN Elevated liver enzymes Plan Potassium phosphate IV Slow saline infusion Monitor electrolytes Antibiotics for UTI Parameters for blood pressure medications Avoid nephrotoxics Subjective ROS Limited/Unobtainable: No Constitutional: Reports: malaise, weakness, other - However more responsive Objective Objective Last 24 Hour Vital Signs Date Time Temp Pulse Resp B/P (MAP) Pulse Ox O2 Delivery O2 Flow Rate FiO2 05/26/19 12:00 98.2 67 20 140/72 (94) 99 05/26/19 09:00 Room Air 05/26/19 08:41 92 22 98 Nasal Cannula 2.0 28 05/26/19 08:41 98 Nasal Cannula 2.0 28 05/26/19 08:18 120/67 05/26/19 08:13 97.1 64 18 120/67 (84) 98 05/26/19 05:19 99.0 05/26/19 04:00 100.6 91 20 129/66 (87) 96 05/26/19 01:40 76 20 98 Nasal Cannula 2.0 28 72 18 97 05/26/19 00:00 98.8 88 20 140/77 (98) 94 05/25/19 21:00 Room Air 05/25/19 20:00 98 Nasal Cannula 2.0 28 05/25/19 20:00 99.5 78 20 128/71 (90) 97 05/25/19 16:00 98.2 67 20 117/65 (82) 96 Intake and Output 05/25/19 05/26/19 19:00 07:00 Intake Total 1400 ml 65 ml Output Total 600 ml 800 ml Balance 800 ml -735 ml Intake Free Water 200 ml IV Total 550 ml Tube Feeding 650 ml 65 ml Output Urine Total 600 ml 800 ml # Bowel Movements 1 1 Laboratory Tests 05/26/19 05:30: White Blood Count 9.5, Red Blood Count 2.72L, Hemoglobin 8.1L, Hematocrit 24.2L , Mean Corpuscular Volume 89, Mean Corpuscular Hemoglobin 29.9, Mean Corpuscular Hemoglobin Concent 33.6, Red Cell Distribution Width 14.4, Platelet Count 276, Mean Platelet Volume 5.8L, Neutrophils (%) (Auto) 72.9, Lymphocytes ( %) (Auto) 20.9, Monocytes (%) (Auto) 5.5, Eosinophils (%) (Auto) 0.4, Basophils (%) (Auto) 0.3, Sodium Level 142, Potassium Level 3.3L, Chloride Level 107, Carbon Dioxide Level 22, Anion Gap 13, Blood Urea Nitrogen 11, Creatinine 0.7, Estimat Glomerular Filtration Rate > 60, Glucose Level 138H, Calcium Level 8.8, Phosphorus Level 2.1L, Magnesium Level 1.9, Total Bilirubin 0.2, Aspartate Amino Transf (AST/SGOT) 97H, Alanine Aminotransferase (ALT/SGPT) 131H, Alkaline Phosphatase 98, C-Reactive Protein, Quantitative 16.2H, Pro-B-Type Natriuretic Peptide [Pending], Total Protein 6.8, Albumin 2.4L, Globulin 4.4, Albumin/ Globulin Ratio 0.5L Height (Feet): 5 Height (Inches): 6.00 Weight (Pounds): 101 General Appearance: no apparent distress, lethargic Cardiovascular: normal rate Respiratory/Chest: decreased breath sounds Abdomen: distended Minh Phipps MD May 26, 2019 15:00
--- NOTE | 2019-05-26 15:48 | Surgery Progress Note ---
Surgery Progress Note Subjective Symptoms: improved, voiding well, passing flatus Objective Last 24 Hour Vital Signs Date Time Temp Pulse Resp B/P (MAP) Pulse Ox O2 Delivery O2 Flow Rate FiO2 05/26/19 12:00 98.2 67 20 140/72 (94) 99 05/26/19 09:00 Room Air 05/26/19 08:41 92 22 98 Nasal Cannula 2.0 28 05/26/19 08:41 98 Nasal Cannula 2.0 28 05/26/19 08:18 120/67 05/26/19 08:13 97.1 64 18 120/67 (84) 98 05/26/19 05:19 99.0 05/26/19 04:00 100.6 91 20 129/66 (87) 96 05/26/19 01:40 76 20 98 Nasal Cannula 2.0 28 72 18 97 05/26/19 00:00 98.8 88 20 140/77 (98) 94 05/25/19 21:00 Room Air 05/25/19 20:00 98 Nasal Cannula 2.0 28 05/25/19 20:00 99.5 78 20 128/71 (90) 97 05/25/19 16:00 98.2 67 20 117/65 (82) 96 I&O Intake and Output 05/25/19 05/26/19 19:00 07:00 Intake Total 1400 ml 65 ml Output Total 600 ml 800 ml Balance 800 ml -735 ml Intake Free Water 200 ml IV Total 550 ml Tube Feeding 650 ml 65 ml Output Urine Total 600 ml 800 ml # Bowel Movements 1 1 Dressing: other Wound: other Drains: other Cardiovascular: RSR Respiratory: decreased breath sounds Abdomen: soft, present bowel sounds Extremities: no cyanosis Laboratory Tests Test 05/26/19 05:30 White Blood Count 9.5 K/UL (4.8-10.8) Red Blood Count 2.72 M/UL (4.70-6.10) L Hemoglobin 8.1 G/DL (14.2-18.0) L Hematocrit 24.2 % (42.0-52.0) L Mean Corpuscular Volume 89 FL (80-99) Mean Corpuscular Hemoglobin 29.9 PG (27.0-31.0) Mean Corpuscular Hemoglobin Concent 33.6 G/DL (32.0-36.0) Red Cell Distribution Width 14.4 % (11.6-14.8) Platelet Count 276 K/UL (150-450) Mean Platelet Volume 5.8 FL (6.5-10.1) L Neutrophils (%) (Auto) 72.9 % (45.0-75.0) Lymphocytes (%) (Auto) 20.9 % (20.0-45.0) Monocytes (%) (Auto) 5.5 % (1.0-10.0) Eosinophils (%) (Auto) 0.4 % (0.0-3.0) Basophils (%) (Auto) 0.3 % (0.0-2.0) Sodium Level 142 MMOL/L (136-145) Potassium Level 3.3 MMOL/L (3.5-5.1) L Chloride Level 107 MMOL/L (98-107) Carbon Dioxide Level 22 MMOL/L (21-32) Anion Gap 13 mmol/L (5-15) Blood Urea Nitrogen 11 mg/dL (7-18) Creatinine 0.7 MG/DL (0.55-1.30) Estimat Glomerular Filtration Rate > 60 mL/min (>60) Glucose Level 138 MG/DL (74-106) H Calcium Level 8.8 MG/DL (8.5-10.1) Phosphorus Level 2.1 MG/DL (2.5-4.9) L Magnesium Level 1.9 MG/DL (1.8-2.4) Total Bilirubin 0.2 MG/DL (0.2-1.0) Aspartate Amino Transf (AST/SGOT) 97 U/L (15-37) H Alanine Aminotransferase (ALT/SGPT) 131 U/L (12-78) H Alkaline Phosphatase 98 U/L (46-116) C-Reactive Protein, Quantitative 16.2 mg/dL (0.00-0.90) H Pro-B-Type Natriuretic Peptide Pending Total Protein 6.8 G/DL (6.4-8.2) Albumin 2.4 G/DL (3.4-5.0) L Globulin 4.4 g/dL Albumin/Globulin Ratio 0.5 (1.0-2.7) L Plan Problems: (1) Failure to thrive syndrome, adult Assessment & Plan: cont feeds monitor labs as tolerated will continue needs close monitoring (2) Severe malnutrition Assessment & Plan: DAILY ESTIMATED NEEDS: Needs based on wasting, wounds/ 49kg 30-35 kcals/kg 9718-9189 total kcals 1.25-1.5 g protein/kg 61-74 g total protein 25-30 mL/kg 3414-2250 total fluid mLs NUTRITION DIAGNOSIS: * Swallowing difficulty R/T dysphagia as evidenced by pt is PEG dep. * Increased kcal/prot intake needs R/T wound healing and wasting as evidenced by pt admitted wounds, pending eval, noted w/ moderate generalized wasting. * Altered nutrition related lab values R/T prediabetes as evidenced by A1C of 6.0. CURRENT TF:Jevity 1.2 @ 65ml/hr x 20 hrs ENTERAL NUTRITION RECOMMENDATIONS: TF CHANGE-> Glucerna 1.2 @ 55ml/hr x 24 hrs to provide 1320ml, 1584kcal, 79g prot, 1063ml free water * REC TF CHANGE TO GLUCERNA 1.2- A1C of 6.0 * Start @25ml/hr, advance as tolerated 15ml/hr q4-6 hrs to goal * HOB over 30 degrees * Water flush of 100ml q 6 hrs without IVF ADDITIONAL RECOMMENDATIONS: * Calibrated bedscale wt * Monitor BGs, need for NISS: A1C 6.0 Pt will benefit from carb controlled TF formula, rec TF change as above * Wound care: f/up w/ WC eval Add YUNIOR in 4oz H2O via GT BID * Monitor lytes, replete as needed (3) Decubitus skin ulcer (4) Elevated LFTs Assessment & Plan: abnormal lf'ts US ordered likely med related trend will follow with recs thank you Reji Guy May 26, 2019 15:48
--- NOTE | 2019-05-26 18:30 | NUR ---
NURSE NOTES: Patient resting,bed alarm on.
[2019-05-26] MEDS ORDERED: K-TAB ER20 MEQ GT (18:38)
[2019-05-26] MEDS ORDERED: VITAMIN D33000 UNI1 GT (18:56)
--- NOTE | 2019-05-26 22:54 | NUR ---
NURSE NOTES: Patient asleep, opens eyes to tactile stimuli. Non-verbal, no s/s distress or pain noted per FLACC scale. Tolerating gtube feeding, no residuals noted. Manriquez catheter is in place and draining yellow urine via gravity. NPO at midnight. Repositioned in bed. HOB elevated, bed in lowest position, bed alarm on. Will continue to monitor.
--- NOTE | 2019-05-27 00:02 | NUR ---
NURSE NOTES: Patient noted to have shortness of breath, RT was called. Breathing treatment given.
[2019-05-27 00:35] VITALS: BP 148/74
--- NOTE | 2019-05-27 00:45 | Progress Note ---
DATE: 05/26/2019 SUBJECTIVE: The patient is in bed, arousable, nonverbal, presents with episodes of agitation, disoriented. MENTAL STATUS EXAMINATION: The patient is asleep, arousable. Mood is agitated. Affect is flat. Thought process is concrete. Thought content, no suicidal or homicidal ideation. Cognition is impaired. Insight and judgment is impaired. ASSESSMENT: 1. Acute encephalopathy. 2. Dementia. PLAN: 1. Continue antipsychotics. 2. Provide the patient with reality orientation and supportive therapy. Rob Baltazar M.D. DR: AMANDA JOB#: [id number] CC:
[2019-05-27 05:33] VITALS: BP 139/70
[2019-05-27 06:49] LABS: BASOPHILS % (AUTO) 0.3 % (0.0-2.0); EOSINOPHILS % (AUTO) 0.2 % (0.0-3.0); HEMATOCRIT 24.1 % (42.0-52.0); HEMOGLOBIN 8.2 G/DL (14.2-18.0); LYMPHOCYTES % (AUTO) 17.2 % (20.0-45.0); MEAN CORPUSCULAR VOLUME 89 FL (80-99); MONOCYTES % (AUTO) 7.2 % (1.0-10.0); PLATELET COUNT 280 K/UL (150-450); RED BLOOD COUNT 2.71 M/UL (4.70-6.10); RED CELL DISTRIBUTION WIDTH 13.8 % (11.6-14.8); WHITE BLOOD COUNT 11.9 K/UL (4.8-10.8)
[2019-05-27 07:03] LABS: ANION GAP 10 mmol/L (5-15); BLOOD UREA NITROGEN 12 mg/dL (7-18); CALCIUM 8.7 MG/DL (8.5-10.1); CARBON DIOXIDE 24 MMOL/L (21-32); CHLORIDE 106 MMOL/L (98-107); CREATININE 0.8 MG/DL (0.55-1.30); POTASSIUM 3.5 MMOL/L (3.5-5.1); SODIUM 140 MMOL/L (136-145)
--- NOTE | 2019-05-27 07:10 | NUR ---
HAND-OFF: Report given to BUSTER WINCHESTER RN. FALL PREVETATIVE MEASURES MAINTAINED AND ENDORSED TO ONCOMING RN.
--- NOTE | 2019-05-27 07:40 | NUR ---
NURSE NOTES: Made initial rounds, patient is in the bed asleep. respiration is even and unlabored on room air. HOB elevated. No coughing and wheezing noted. Bilateral lungs clear to auscultation. no facial grimace for pain and discomfort noted. G-tube is in-place, no redness, warmth and tenderness noted around stoma site. Abdomen is soft and non-distended. Noted active bowel sounds in all quadrants. Manriquez catheter is in-place and patent. Noted pale yellow urine; no sediments noted at this time. Patient has gauge IV line on RFA. Site is intact. No bleeding, swelling and coolness noted on IV site. Bed alarm on, bed is in lock position for safety precaution. Call light is placed within patient's reach. Addendum: 05/27/19 at 0745 by Lionel Brito RN NURSE NOTES: Made initial rounds, patient is in the bed asleep. respiration is even and unlabored on room air. HOB elevated. No coughing and wheezing noted. Bilateral lungs clear to auscultation. no facial grimace for pain and discomfort noted. G-tube is in-place, no redness, warmth and tenderness noted around stoma site. Abdomen is soft and non-distended. Noted active bowel sounds in all quadrants. Manriquez catheter is in-place and patent. Noted pale yellow urine; no sediments noted at this time. Patient has 20 gauge IV line on RFA. Site is intact. No bleeding, swelling and coolness noted on IV site. Bed alarm on, bed is in lock position for safety precaution. Call light is placed within patient's reach.
[2019-05-27 08:00] VITALS: BP 110/69
--- NOTE | 2019-05-27 09:16 | Nephrology Progress Note ---
Assessment/Plan Problem List: (1) Dehydration (2) Hyponatremia (3) UTI (urinary tract infection) (4) Decubitus skin ulcer (5) BPH (benign prostatic hyperplasia) (6) Severe malnutrition Assessment: With multiple decubiti Assessment Acute metabolic encephalopathy UTI Dehydration, hyponatremia improved with saline infusion Patient has Manriquez catheter and GT tube Advance dementia- bed bound, PEG dependent Depression Anemia of most likely chronic disease- stable Hx of HTN Elevated liver enzymes Plan Potassium phosphate IV Slow saline infusion Monitor electrolytes Antibiotics for UTI Parameters for blood pressure medications Avoid nephrotoxics Subjective ROS Limited/Unobtainable: No Constitutional: Reports: malaise, weakness Objective Objective Last 24 Hour Vital Signs Date Time Temp Pulse Resp B/P (MAP) Pulse Ox O2 Delivery O2 Flow Rate FiO2 05/27/19 08:16 95 Nasal Cannula 2.0 28 05/27/19 08:15 77 20 95 Nasal Cannula 2.0 28 05/27/19 08:00 99.1 85 18 110/69 (83) 100 05/27/19 05:33 99.7 93 22 139/70 (93) 97 05/27/19 00:35 99.0 91 21 148/74 (98) 94 05/26/19 23:52 90 18 97 Nasal Cannula 2.0 28 89 18 95 05/26/19 22:45 Nasal Cannula 2.0 05/26/19 20:20 96 Nasal Cannula 2.0 28 05/26/19 20:19 74 20 96 Nasal Cannula 2.0 28 05/26/19 20:00 99.5 84 18 136/69 (91) 96 05/26/19 16:00 98.6 76 19 136/74 (94) 100 05/26/19 12:00 98.2 67 20 140/72 (94) 99 Intake and Output 05/26/19 05/27/19 19:00 07:00 Intake Total 1593.608 ml 760 ml Output Total 700 ml Balance 1593.608 ml 60 ml Intake Free Water 100 ml IV Total 1103.608 ml 500 ml Tube Feeding 390 ml 260 ml Output Urine Total 700 ml # Bowel Movements 1 Laboratory Tests 05/27/19 05:35: White Blood Count 11.9H, Red Blood Count 2.71L, Hemoglobin 8.2L, Hematocrit 24.1L, Mean Corpuscular Volume 89, Mean Corpuscular Hemoglobin 30.4, Mean Corpuscular Hemoglobin Concent 34.2, Red Cell Distribution Width 13.8, Platelet Count 280, Mean Platelet Volume 5.7L, Neutrophils (%) (Auto) 75.0, Lymphocytes ( %) (Auto) 17.2L, Monocytes (%) (Auto) 7.2, Eosinophils (%) (Auto) 0.2, Basophils (%) (Auto) 0.3, Sodium Level 140, Potassium Level 3.5, Chloride Level 106, Carbon Dioxide Level 24, Anion Gap 10, Blood Urea Nitrogen 12, Creatinine 0.8, Estimat Glomerular Filtration Rate > 60, Glucose Level 97, Calcium Level 8.7 Height (Feet): 5 Height (Inches): 6.00 Weight (Pounds): 101 General Appearance: no apparent distress Abdomen: soft Objective No change Minh Phipps MD May 27, 2019 09:16
[2019-05-27] MEDS: Heparin 5000 units/ml inj SUBQ SCH ×2 (09:29→21:52)
[2019-05-27] MEDS: Lisinopril 20mg tab GT SCH (09:33)
[2019-05-27] MEDS: Thiamine 100mg tab GT SCH (09:34)
--- NOTE | 2019-05-27 11:15 | Diagnostic Imaging Report ---
Indication: Abdominal pain Technique: Grayscale and duplex Doppler imaging of the abdomen performed. Comparison: None Findings: The liver is unremarkable. Doppler interrogation of the main portal vein shows patency with hepatopedal, monophasic flow. There is no biliary ductal dilatation identified. Gallbladder is unremarkable. There demonstrated part of the pancreas and IVC show no definite abnormalities. Aorta is calcified. There is a small echogenic focus within the right kidney which may be a nonobstructive stone. Both kidneys appear unremarkable otherwise. There is no hydronephrosis. IMPRESSION: No acute findings Atherosclerotic disease. Possible stone in the right kidney
--- NOTE | 2019-05-27 11:51 | NUR ---
RD ASSESSMENT & RECOMMENDATIONS SEE CARE ACTIVITY FOR COMPLETE ASSESSMENT DAILY ESTIMATED NEEDS: Needs based on wasting, wounds/ 49kg 30-35 kcals/kg 7103-5948 total kcals 1.25-1.5 g protein/kg 61-74 g total protein 25-30 mL/kg 2002-1747 total fluid mLs NUTRITION DIAGNOSIS: * Swallowing difficulty R/T dysphagia as evidenced by pt is PEG dep. * Increased kcal/prot intake needs R/T wound healing and wasting as evidenced by pt admitted wounds, pending eval, noted w/ moderate generalized wasting. * Altered nutrition related lab values R/T prediabetes as evidenced by A1C of 6.0. CURRENT TF:Jevity 1.2 @ 65ml/hr x 20 hrs ENTERAL NUTRITION RECOMMENDATIONS: TF CHANGE-> Glucerna 1.2 @ 55ml/hr x 24 hrs to provide 1320ml, 1584kcal, 79g prot, 1063ml free water * REC TF CHANGE TO GLUCERNA 1.2- A1C of 6.0 * Start @25ml/hr, advance as tolerated 15ml/hr q4-6 hrs to goal * HOB over 30 degrees * Water flush of 100ml q 6 hrs without IVF ADDITIONAL RECOMMENDATIONS: * Calibrated bedscale wt + accurate daily weights * Monitor BGs, need for NISS: A1C 6.0 Pt will benefit from carb controlled TF formula, rec TF change as above * Wound care: f/up w/ WC eval Add YUNIOR in 4oz H2O via GT BID * Monitor lytes, replete as needed .
[2019-05-27 12:00] VITALS: BP 154/77
--- NOTE | 2019-05-27 12:34 | Surgery Progress Note ---
Surgery Progress Note Subjective Symptoms: improved Objective Last 24 Hour Vital Signs Date Time Temp Pulse Resp B/P (MAP) Pulse Ox O2 Delivery O2 Flow Rate FiO2 05/27/19 09:33 110/69 05/27/19 09:00 Nasal Cannula 2.0 05/27/19 08:16 95 Nasal Cannula 2.0 28 05/27/19 08:15 77 20 95 Nasal Cannula 2.0 28 05/27/19 08:00 99.1 85 18 110/69 (83) 100 05/27/19 05:33 99.7 93 22 139/70 (93) 97 05/27/19 00:35 99.0 91 21 148/74 (98) 94 05/26/19 23:52 90 18 97 Nasal Cannula 2.0 28 89 18 95 05/26/19 22:45 Nasal Cannula 2.0 05/26/19 20:20 96 Nasal Cannula 2.0 28 05/26/19 20:19 74 20 96 Nasal Cannula 2.0 28 05/26/19 20:00 99.5 84 18 136/69 (91) 96 05/26/19 16:00 98.6 76 19 136/74 (94) 100 I&O Intake and Output 05/26/19 05/27/19 19:00 07:00 Intake Total 1593.608 ml 760 ml Output Total 700 ml Balance 1593.608 ml 60 ml Intake Free Water 100 ml IV Total 1103.608 ml 500 ml Tube Feeding 390 ml 260 ml Output Urine Total 700 ml # Bowel Movements 1 Dressing: other Wound: other Cardiovascular: RSR Respiratory: clear, decreased breath sounds Abdomen: non-tender, present bowel sounds Extremities: no edema, no tenderness, no cyanosis Laboratory Tests Test 05/27/19 05:35 White Blood Count 11.9 K/UL (4.8-10.8) H Red Blood Count 2.71 M/UL (4.70-6.10) L Hemoglobin 8.2 G/DL (14.2-18.0) L Hematocrit 24.1 % (42.0-52.0) L Mean Corpuscular Volume 89 FL (80-99) Mean Corpuscular Hemoglobin 30.4 PG (27.0-31.0) Mean Corpuscular Hemoglobin Concent 34.2 G/DL (32.0-36.0) Red Cell Distribution Width 13.8 % (11.6-14.8) Platelet Count 280 K/UL (150-450) Mean Platelet Volume 5.7 FL (6.5-10.1) L Neutrophils (%) (Auto) 75.0 % (45.0-75.0) Lymphocytes (%) (Auto) 17.2 % (20.0-45.0) L Monocytes (%) (Auto) 7.2 % (1.0-10.0) Eosinophils (%) (Auto) 0.2 % (0.0-3.0) Basophils (%) (Auto) 0.3 % (0.0-2.0) Sodium Level 140 MMOL/L (136-145) Potassium Level 3.5 MMOL/L (3.5-5.1) Chloride Level 106 MMOL/L (98-107) Carbon Dioxide Level 24 MMOL/L (21-32) Anion Gap 10 mmol/L (5-15) Blood Urea Nitrogen 12 mg/dL (7-18) Creatinine 0.8 MG/DL (0.55-1.30) Estimat Glomerular Filtration Rate > 60 mL/min (>60) Glucose Level 97 MG/DL (74-106) Calcium Level 8.7 MG/DL (8.5-10.1) Plan Problems: (1) Failure to thrive syndrome, adult Assessment & Plan: cont feeds monitor labs as tolerated will continue needs close monitoring (2) Severe malnutrition Assessment & Plan: DAILY ESTIMATED NEEDS: Needs based on wasting, wounds/ 49kg 30-35 kcals/kg 4964-2827 total kcals 1.25-1.5 g protein/kg 61-74 g total protein 25-30 mL/kg 8914-6725 total fluid mLs NUTRITION DIAGNOSIS: * Swallowing difficulty R/T dysphagia as evidenced by pt is PEG dep. * Increased kcal/prot intake needs R/T wound healing and wasting as evidenced by pt admitted wounds, pending eval, noted w/ moderate generalized wasting. * Altered nutrition related lab values R/T prediabetes as evidenced by A1C of 6.0. CURRENT TF:Jevity 1.2 @ 65ml/hr x 20 hrs ENTERAL NUTRITION RECOMMENDATIONS: TF CHANGE-> Glucerna 1.2 @ 55ml/hr x 24 hrs to provide 1320ml, 1584kcal, 79g prot, 1063ml free water * REC TF CHANGE TO GLUCERNA 1.2- A1C of 6.0 * Start @25ml/hr, advance as tolerated 15ml/hr q4-6 hrs to goal * HOB over 30 degrees * Water flush of 100ml q 6 hrs without IVF ADDITIONAL RECOMMENDATIONS: * Calibrated bedscale wt * Monitor BGs, need for NISS: A1C 6.0 Pt will benefit from carb controlled TF formula, rec TF change as above * Wound care: f/up w/ WC eval Add YUNIOR in 4oz H2O via GT BID * Monitor lytes, replete as needed (3) Decubitus skin ulcer (4) Elevated LFTs Assessment & Plan: abnormal lf'ts US ordered likely med related trend will follow with recs thank you Reji Guy May 27, 2019 12:34
--- NOTE | 2019-05-27 14:22 | General Progress Note ---
Assessment/Plan Assessment/Plan: 73 year old man with history of advanced dementia (bedbound, nonverbal, PEG dependent at baseline), dysphagia s/p PEG, HTN, depression, anemia of chronic disease, depression, and bilateral pressure ulcers in heels who presented from rehab facility with fever and hematuria #Sepsis, present on admission #Serratia and Pseudomonas acute cystitis, possible pyelonephritis #Hematuria #Pyuria #Elevated CRP, improved -continue inpatient level of care -Invanz changed to meropenem, will discuss duration of therapy with ID -ID following -Surgery eval appreciated, no appearance of acute wound infection #Acute on chronic anemia -likely sepsis related BM suppression -cont to monitor CBC #Dehydration #Hyponatremia, resolved -continue IV saline -Nephrology following #Hx of HTN -cont lisinopril #Advance dementia- bed bound, PEG dependent #Functional quadriplegia #Depression #Anemia of chronic disease- stable vte ppx: heparin sc code: full code, POLST reviewed I spent 35 minutes during this encounter, >50% spent on counselling and care coordination. Subjective Date patient seen: May 27, 2019 Time patient seen: 14:17 ROS Limited/Unobtainable: Yes Allergies: Coded Allergies: No Known Allergies (Unverified , 08/20/18) Subjective Follow up for sepsis, serratia and pseudomonas UTI, possible pyelo, hyponatremia Fevers resolved Objective Last 24 Hour Vital Signs Date Time Temp Pulse Resp B/P (MAP) Pulse Ox O2 Delivery O2 Flow Rate FiO2 05/27/19 12:00 98.6 71 18 154/77 (102) 95 05/27/19 09:33 110/69 05/27/19 09:00 Nasal Cannula 2.0 05/27/19 08:16 95 Nasal Cannula 2.0 28 05/27/19 08:15 77 20 95 Nasal Cannula 2.0 28 05/27/19 08:00 99.1 85 18 110/69 (83) 100 05/27/19 05:33 99.7 93 22 139/70 (93) 97 05/27/19 00:35 99.0 91 21 148/74 (98) 94 05/26/19 23:52 90 18 97 Nasal Cannula 2.0 28 89 18 95 05/26/19 22:45 Nasal Cannula 2.0 05/26/19 20:20 96 Nasal Cannula 2.0 28 05/26/19 20:19 74 20 96 Nasal Cannula 2.0 28 05/26/19 20:00 99.5 84 18 136/69 (91) 96 05/26/19 16:00 98.6 76 19 136/74 (94) 100 Intake and Output 05/26/19 05/27/19 19:00 07:00 Intake Total 1593.608 ml 760 ml Output Total 700 ml Balance 1593.608 ml 60 ml Intake Free Water 100 ml IV Total 1103.608 ml 500 ml Tube Feeding 390 ml 260 ml Output Urine Total 700 ml # Bowel Movements 1 Laboratory Tests 05/27/19 05:35: White Blood Count 11.9H, Red Blood Count 2.71L, Hemoglobin 8.2L, Hematocrit 24.1L, Mean Corpuscular Volume 89, Mean Corpuscular Hemoglobin 30.4, Mean Corpuscular Hemoglobin Concent 34.2, Red Cell Distribution Width 13.8, Platelet Count 280, Mean Platelet Volume 5.7L, Neutrophils (%) (Auto) 75.0, Lymphocytes ( %) (Auto) 17.2L, Monocytes (%) (Auto) 7.2, Eosinophils (%) (Auto) 0.2, Basophils (%) (Auto) 0.3, Sodium Level 140, Potassium Level 3.5, Chloride Level 106, Carbon Dioxide Level 24, Anion Gap 10, Blood Urea Nitrogen 12, Creatinine 0.8, Estimat Glomerular Filtration Rate > 60, Glucose Level 97, Calcium Level 8.7 Height (Feet): 5 Height (Inches): 6.00 Weight (Pounds): 101 General Appearance: no apparent distress, confused Neck: normal alignment, supple Cardiovascular: normal rate Respiratory/Chest: lungs clear, normal breath sounds Abdomen: non tender, soft Wei Neves MD May 27, 2019 14:22
[2019-05-27 16:00] VITALS: BP 151/92
--- NOTE | 2019-05-27 19:25 | NUR ---
NURSE NOTES: Patient is in the bed, asleep. No signs of distress or SOB. HOB elevated. G-tube in place and running as ordered. Manriquez catheter is in place and draining well. IV intact and patent. Bed locked and in lowest position. Bed alarm on. Call light within reach. Will continue to follow plan of care.
--- NOTE | 2019-05-27 19:25 | NUR ---
HAND-OFF: Report given to [place].
[2019-05-27 20:00] VITALS: BP 142/81
--- NOTE | 2019-05-27 20:37 | Infectious Diseases Prog Note ---
Assessment/Plan Assessment/Plan ASSESSMENT AND PLAN: 1. pseudomonas uti/MDR serratia uti, sepsis, fevers, leukocytosis - meropenem - day # 3 abx - monitor labs and clinically - monitor temps 2. Chest x-ray with atelectasis. 3. Anemia. 4. Hypernatremia. 5. Hypertension. 6. Hypertensive heart disease. 7. History of UTI, pneumonia. 8. Hypertension treatment per primary care team and Nephrology. 9. Wound care protocol. 10. COPD. 11. Dementia. 12. History of failure to thrive. 13. Dysphagia, G-tube. 14. History of hyperkalemia. 15. Continue treatment per primary consultants. 16. No known allergies. 17. Social history negative. 18. Family history is noncontributory. 19. MAR was noted. 20. Case discussed with RN. 21. Orders were noted and entered. 22. d/w primary care team Subjective Constitutional: Denies: fever HEENT: Denies: congestion Respiratory: Denies: shortness of breath Cardiovascular: Denies: chest pain Gastrointestinal/Abdominal: Denies: nausea, vomiting, diarrhea Genitourinary: Reports: other - + duggan Neurologic: Denies: headache Psychiatric: Denies: depression Skin: Denies: rash Hematologic: Denies: bleeding Musculoskeletal: Denies: pain Allergies: Coded Allergies: No Known Allergies (Unverified , 08/20/18) Objective Vital Signs Last 24 Hour Vital Signs Date Time Temp Pulse Resp B/P (MAP) Pulse Ox O2 Delivery O2 Flow Rate FiO2 05/27/19 16:00 98.8 78 18 151/92 (111) 99 05/27/19 12:00 98.6 71 18 154/77 (102) 95 05/27/19 09:33 110/69 05/27/19 09:00 Nasal Cannula 2.0 05/27/19 08:16 95 Nasal Cannula 2.0 28 05/27/19 08:15 77 20 95 Nasal Cannula 2.0 28 05/27/19 08:00 99.1 85 18 110/69 (83) 100 05/27/19 05:33 99.7 93 22 139/70 (93) 97 05/27/19 00:35 99.0 91 21 148/74 (98) 94 05/26/19 23:52 90 18 97 Nasal Cannula 2.0 28 89 18 95 05/26/19 22:45 Nasal Cannula 2.0 Height (Feet): 5 Height (Inches): 6.00 Weight (Pounds): 101 General Appearance: WD/WN, no acute distress HEENT: normocephalic, atraumatic, anicteric, mucous membranes moist Respiratory/Chest: lungs clear, normal breath sounds, no respiratory distress, no accessory muscle use Cardiovascular: normal rate, regular rhythm, no gallop/murmur, no JVD Abdomen: normal bowel sounds, soft, non tender, no organomegaly, non distended Genitourinary: other - + duggan - urine cloudy Extremities: no cyanosis Skin: no rash 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 Findings: There is suggestion of mild basal atelectasis. No infiltrate seen. The evaluation is limited by severe rotation. Heart size is probably normal. Bones are osteopenic. IMPRESSION: Suspected mild basal atelectasis. Microbiology Date/Time Source Procedure Growth Status 05/23/19 02:45 Blood Blood Culture - Preliminary NO GROWTH AFTER 4 DAYS Resulted 05/23/19 04:35 Nasal Nares MRSA Culture - Final NO METHICILLIN RESISTANT STAPH AUREUS... Complete 05/23/19 02:42 Urine,Clean Catch Urine Culture - Final Serratia Species Pseudomonas Aeruginosa Complete 05/23/19 04:35 Rectum - Final NO CARBAPENEM-RESISTANT ENTEROBACTERI... Complete Laboratory Tests Test 05/27/19 05:35 White Blood Count 11.9 K/UL (4.8-10.8) H Red Blood Count 2.71 M/UL (4.70-6.10) L Hemoglobin 8.2 G/DL (14.2-18.0) L Hematocrit 24.1 % (42.0-52.0) L Mean Corpuscular Volume 89 FL (80-99) Mean Corpuscular Hemoglobin 30.4 PG (27.0-31.0) Mean Corpuscular Hemoglobin Concent 34.2 G/DL (32.0-36.0) Red Cell Distribution Width 13.8 % (11.6-14.8) Platelet Count 280 K/UL (150-450) Mean Platelet Volume 5.7 FL (6.5-10.1) L Neutrophils (%) (Auto) 75.0 % (45.0-75.0) Lymphocytes (%) (Auto) 17.2 % (20.0-45.0) L Monocytes (%) (Auto) 7.2 % (1.0-10.0) Eosinophils (%) (Auto) 0.2 % (0.0-3.0) Basophils (%) (Auto) 0.3 % (0.0-2.0) Sodium Level 140 MMOL/L (136-145) Potassium Level 3.5 MMOL/L (3.5-5.1) Chloride Level 106 MMOL/L (98-107) Carbon Dioxide Level 24 MMOL/L (21-32) Anion Gap 10 mmol/L (5-15) Blood Urea Nitrogen 12 mg/dL (7-18) Creatinine 0.8 MG/DL (0.55-1.30) Estimat Glomerular Filtration Rate > 60 mL/min (>60) Glucose Level 97 MG/DL (74-106) Calcium Level 8.7 MG/DL (8.5-10.1) Current Medications Medications (Trade) Dose Ordered Sig/Altagracia Route PRN Reason Start Time Stop Time Status Last Admin Dose Admin Acetaminophen (Tylenol) 650 mg Q4H PRN GT Mild Pain/Temp > 100.5 05/23/19 11:15 06/22/19 11:14 05/26/19 04:49 Albuterol/ Ipratropium (Albuterol/ Ipratropium) 3 ml Q6HR PRN HHN Shortness of Breath 05/23/19 08:15 05/28/19 08:14 05/26/19 23:50 Dextrose (Dextrose 50%) 25 ml Q30M PRN IV Hypoglycemia 05/23/19 08:15 06/22/19 08:14 Dextrose (Dextrose 50%) 50 ml Q30M PRN IV Hypoglycemia 05/23/19 08:15 06/22/19 08:14 Heparin Sodium (Porcine) (Heparin 5000 units/ml) 5,000 units EVERY 12 HOURS SUBQ 05/23/19 09:00 06/22/19 08:59 05/27/19 09:29 Hydralazine HCl (Apresoline) 25 mg Q4H PRN GT SBP > 160 05/23/19 18:15 06/22/19 18:14 Lisinopril (PriniviL) 10 mg DAILY GT 05/24/19 09:00 06/22/19 08:59 05/27/19 09:33 Lorazepam (Ativan) 1 mg Q6H PRN ORAL For Anxiety 05/24/19 00:00 05/31/19 00:00 Meropenem 1 gm/ Sodium Chloride 100 ml @ 200 mls/hr Q8HR IVPB 05/25/19 22:00 05/30/19 21:59 05/27/19 16:12 Sodium Chloride 1,000 ml @ 50 mls/hr Q20H IV 05/23/19 18:15 06/22/19 18:14 05/27/19 02:01 Thiamine HCl (Vitamin B1) 100 mg DAILY GT 05/23/19 09:00 06/22/19 08:59 05/27/19 09:34 Tramadol HCl (Ultram) 50 mg DAILY PRN GT For Pain 05/23/19 08:15 05/30/19 08:14 Bonny Rincon MD May 27, 2019 20:37
[2019-05-28] VITALS: BP 141/85
--- NOTE | 2019-05-28 02:15 | Progress Note ---
DATE: 05/28/2019 SUBJECTIVE: The patient is in no acute distress, minimally verbal, disoriented Mental condition is unchanged since previous encounter. MENTAL STATUS EXAMINATION: The patient is alert and disoriented. Mood is agitated. Affect is flat. Thought process is concrete. Thought content, no suicidal or homicidal ideation. Cognition is impaired. ASSESSMENT: Dementia with behavior disturbance. PLAN: 1. Ativan as needed. 2. Discussed with the nurse. Rob Baltazar M.D. DR: FLACO JOB#: [id number] CC: BELEM
[2019-05-28 04:00] VITALS: BP 144/82
[2019-05-28 06:52] LABS: BASOPHILS % (AUTO) 0.4 % (0.0-2.0); EOSINOPHILS % (AUTO) 0.6 % (0.0-3.0); HEMATOCRIT 26.1 % (42.0-52.0); HEMOGLOBIN 8.8 G/DL (14.2-18.0); LYMPHOCYTES % (AUTO) 15.7 % (20.0-45.0); MEAN CORPUSCULAR VOLUME 89 FL (80-99); MONOCYTES % (AUTO) 5.9 % (1.0-10.0); NEUTROPHILS % (AUTO) 77.5 % (45.0-75.0); PLATELET COUNT 291 K/UL (150-450); RED BLOOD COUNT 2.95 M/UL (4.70-6.10); RED CELL DISTRIBUTION WIDTH 13.9 % (11.6-14.8)
[2019-05-28 07:10] LABS: ALANINE AMINOTRANSFERASE 196 U/L (12-78); ALBUMIN 2.6 G/DL (3.4-5.0); ALBUMIN/GLOBULIN RATIO 0.5 (1.0-2.7); ALKALINE PHOSPHATASE 110 U/L (46-116); ANION GAP 9 mmol/L (5-15); ASPARTATE AMINO TRANSFERASE 145 U/L (15-37); BILIRUBIN,TOTAL 0.3 MG/DL (0.2-1.0); BLOOD UREA NITROGEN 14 mg/dL (7-18); CALCIUM 9.1 MG/DL (8.5-10.1); CARBON DIOXIDE 25 MMOL/L (21-32); CHLORIDE 107 MMOL/L (98-107); CREATININE 0.6 MG/DL (0.55-1.30); POTASSIUM 3.7 MMOL/L (3.5-5.1); SODIUM 141 MMOL/L (136-145)
--- NOTE | 2019-05-28 07:35 | NUR ---
HAND-OFF: Report given to ANTOINETTE Flowers.
--- NOTE | 2019-05-28 07:39 | NUR ---
NURSE NOTES: patient is in the bed asleep. no difficulty breathing noted. skin is warm and dry to touch. HOB is in elevated position, g-tube is in-place and infusing; tubing is patent. noted RFA IV site 20 gauge. no infiltration noted on site. no acute distress noted on initial round. call light is placed within reach.
[2019-05-28 09:00] VITALS: BP 140/80
[2019-05-28] MEDS: Thiamine 100mg tab GT SCH (09:37)
[2019-05-28] MEDS: Lisinopril 20mg tab GT SCH (09:37)
[2019-05-28] MEDS: Heparin 5000 units/ml inj SUBQ SCH ×2 (09:38→22:17)
[2019-05-28 12:00] VITALS: BP 141/77
--- NOTE | 2019-05-28 13:51 | Surgery Progress Note ---
Surgery Progress Note Subjective Symptoms: worse Additional Comments ill appearing leukocytosis elevated lft's us noted Objective Last 24 Hour Vital Signs Date Time Temp Pulse Resp B/P (MAP) Pulse Ox O2 Delivery O2 Flow Rate FiO2 05/28/19 12:00 98.4 100 20 141/77 (98) 99 05/28/19 09:37 140/80 05/28/19 09:00 98.7 96 19 140/80 (100) 98 05/28/19 09:00 Nasal Cannula 2.0 05/28/19 04:00 98.9 84 20 144/82 (102) 98 05/28/19 00:00 98.6 87 20 141/85 (103) 98 05/27/19 21:00 Nasal Cannula 2.0 05/27/19 20:00 98.9 92 20 142/81 (101) 98 05/27/19 16:00 98.8 78 18 151/92 (111) 99 I&O Intake and Output 05/27/19 05/28/19 19:00 07:00 Intake Total 65 ml 685 ml Output Total 1000 ml 400 ml Balance -935 ml 285 ml Intake Free Water 100 ml Tube Feeding 65 ml 585 ml Output Urine Total 1000 ml 400 ml # Voids 1 Dressing: other Wound: other Drains: other Cardiovascular: RSR Respiratory: decreased breath sounds Abdomen: soft, non-tender, present bowel sounds Extremities: no cyanosis Laboratory Tests Test 05/28/19 06:15 White Blood Count 13.0 K/UL (4.8-10.8) H Red Blood Count 2.95 M/UL (4.70-6.10) L Hemoglobin 8.8 G/DL (14.2-18.0) L Hematocrit 26.1 % (42.0-52.0) L Mean Corpuscular Volume 89 FL (80-99) Mean Corpuscular Hemoglobin 29.9 PG (27.0-31.0) Mean Corpuscular Hemoglobin Concent 33.7 G/DL (32.0-36.0) Red Cell Distribution Width 13.9 % (11.6-14.8) Platelet Count 291 K/UL (150-450) Mean Platelet Volume 5.5 FL (6.5-10.1) L Neutrophils (%) (Auto) 77.5 % (45.0-75.0) H Lymphocytes (%) (Auto) 15.7 % (20.0-45.0) L Monocytes (%) (Auto) 5.9 % (1.0-10.0) Eosinophils (%) (Auto) 0.6 % (0.0-3.0) Basophils (%) (Auto) 0.4 % (0.0-2.0) Sodium Level 141 MMOL/L (136-145) Potassium Level 3.7 MMOL/L (3.5-5.1) Chloride Level 107 MMOL/L (98-107) Carbon Dioxide Level 25 MMOL/L (21-32) Anion Gap 9 mmol/L (5-15) Blood Urea Nitrogen 14 mg/dL (7-18) Creatinine 0.6 MG/DL (0.55-1.30) Estimat Glomerular Filtration Rate > 60 mL/min (>60) Glucose Level 143 MG/DL (74-106) H Calcium Level 9.1 MG/DL (8.5-10.1) Total Bilirubin 0.3 MG/DL (0.2-1.0) Aspartate Amino Transf (AST/SGOT) 145 U/L (15-37) H Alanine Aminotransferase (ALT/SGPT) 196 U/L (12-78) H Alkaline Phosphatase 110 U/L (46-116) Total Protein 7.4 G/DL (6.4-8.2) Albumin 2.6 G/DL (3.4-5.0) L Globulin 4.8 g/dL Albumin/Globulin Ratio 0.5 (1.0-2.7) L Plan Problems: (1) Failure to thrive syndrome, adult Assessment & Plan: cont feeds monitor labs as tolerated will continue needs close monitoring (2) Severe malnutrition Assessment & Plan: DAILY ESTIMATED NEEDS: Needs based on wasting, wounds/ 49kg 30-35 kcals/kg 5374-0650 total kcals 1.25-1.5 g protein/kg 61-74 g total protein 25-30 mL/kg 4570-8407 total fluid mLs NUTRITION DIAGNOSIS: * Swallowing difficulty R/T dysphagia as evidenced by pt is PEG dep. * Increased kcal/prot intake needs R/T wound healing and wasting as evidenced by pt admitted wounds, pending eval, noted w/ moderate generalized wasting. * Altered nutrition related lab values R/T prediabetes as evidenced by A1C of 6.0. CURRENT TF:Jevity 1.2 @ 65ml/hr x 20 hrs ENTERAL NUTRITION RECOMMENDATIONS: TF CHANGE-> Glucerna 1.2 @ 55ml/hr x 24 hrs to provide 1320ml, 1584kcal, 79g prot, 1063ml free water * REC TF CHANGE TO GLUCERNA 1.2- A1C of 6.0 * Start @25ml/hr, advance as tolerated 15ml/hr q4-6 hrs to goal * HOB over 30 degrees * Water flush of 100ml q 6 hrs without IVF ADDITIONAL RECOMMENDATIONS: * Calibrated bedscale wt * Monitor BGs, need for NISS: A1C 6.0 Pt will benefit from carb controlled TF formula, rec TF change as above * Wound care: f/up w/ WC eval Add YUNIOR in 4oz H2O via GT BID * Monitor lytes, replete as needed (3) Decubitus skin ulcer (4) Elevated LFTs Assessment & Plan: abnormal lf'ts The liver is unremarkable. Doppler interrogation of the main portal vein shows patency with hepatopedal, monophasic flow. There is no biliary ductal dilatation identified. Gallbladder is unremarkable. There demonstrated part of the pancreas and IVC show no definite abnormalities. Aorta is calcified. There is a small echogenic focus within the right kidney which may be a nonobstructive stone. Both kidneys appear unremarkable otherwise. There is no hydronephrosis. IMPRESSION: No acute findings Atherosclerotic disease. Possible stone in the right kidney likely med related trend will follow with recs thank you Reji Guy May 28, 2019 13:51
[2019-05-28 16:00] VITALS: BP 138/80
--- NOTE | 2019-05-28 17:39 | General Progress Note ---
Assessment/Plan Problem List: (1) UTI (urinary tract infection) ICD Codes: N39.0 - UTI (urinary tract infection) SNOMED: 52197926 Status: stable Assessment/Plan: 73 year old man with history of advanced dementia (bedbound, nonverbal, PEG dependent at baseline), dysphagia s/p PEG, HTN, depression, anemia of chronic disease, depression, and bilateral pressure ulcers in heels who presented from rehab facility with fever and hematuria #Sepsis, present on admission #Serratia and Pseudomonas acute cystitis, possible pyelonephritis #Hematuria #Pyuria #Elevated CRP, improved -continue inpatient level of care -Invanz changed to meropenem, will discuss duration of therapy with ID -ID following -Surgery eval appreciated, no appearance of acute wound infection #Acute on chronic anemia -likely sepsis related BM suppression -cont to monitor CBC #Dehydration #Hyponatremia, resolved -continue IV saline -Nephrology following #Hx of HTN -cont lisinopril #Advance dementia- bed bound, PEG dependent #Functional quadriplegia #Depression #Anemia of chronic disease- stable vte ppx: heparin sc code: full code, POLST reviewed Extra 37 mins spent on chart reivew, including labs, imaging, meds, prior physicain documentation. Time of note doesn't reflect time of encounter. Subjective Date patient seen: May 28, 2019 ROS Limited/Unobtainable: Yes Allergies: Coded Allergies: No Known Allergies (Unverified , 08/20/18) Subjective resting in bed, nonverbal. Objective Last 24 Hour Vital Signs Date Time Temp Pulse Resp B/P (MAP) Pulse Ox O2 Delivery O2 Flow Rate FiO2 05/28/19 12:00 98.4 100 20 141/77 (98) 99 05/28/19 09:37 140/80 05/28/19 09:00 98.7 96 19 140/80 (100) 98 05/28/19 09:00 Nasal Cannula 2.0 05/28/19 04:00 98.9 84 20 144/82 (102) 98 05/28/19 00:00 98.6 87 20 141/85 (103) 98 05/27/19 21:00 Nasal Cannula 2.0 05/27/19 20:00 98.9 92 20 142/81 (101) 98 Intake and Output 05/27/19 05/28/19 19:00 07:00 Intake Total 65 ml 685 ml Output Total 1000 ml 400 ml Balance -935 ml 285 ml Intake Free Water 100 ml Tube Feeding 65 ml 585 ml Output Urine Total 1000 ml 400 ml # Voids 1 Laboratory Tests 05/28/19 06:15: White Blood Count 13.0H, Red Blood Count 2.95L, Hemoglobin 8.8L, Hematocrit 26.1L, Mean Corpuscular Volume 89, Mean Corpuscular Hemoglobin 29.9, Mean Corpuscular Hemoglobin Concent 33.7, Red Cell Distribution Width 13.9, Platelet Count 291, Mean Platelet Volume 5.5L, Neutrophils (%) (Auto) 77.5H, Lymphocytes (%) (Auto) 15.7L, Monocytes (%) (Auto) 5.9, Eosinophils (%) (Auto) 0.6, Basophils (%) (Auto) 0.4, Sodium Level 141, Potassium Level 3.7, Chloride Level 107, Carbon Dioxide Level 25, Anion Gap 9, Blood Urea Nitrogen 14, Creatinine 0.6, Estimat Glomerular Filtration Rate > 60, Glucose Level 143H, Calcium Level 9.1, Total Bilirubin 0.3, Aspartate Amino Transf (AST/SGOT) 145H, Alanine Aminotransferase (ALT/SGPT) 196H, Alkaline Phosphatase 110, Total Protein 7.4, Albumin 2.6L, Globulin 4.8, Albumin/Globulin Ratio 0.5L Height (Feet): 5 Height (Inches): 6.00 Weight (Pounds): 101 General Appearance: no apparent distress Neck: supple Cardiovascular: normal rate, regular rhythm Respiratory/Chest: lungs clear, normal breath sounds Abdomen: non tender, soft Luz Marina Ramesh M.D. May 28, 2019 17:39
--- NOTE | 2019-05-28 19:04 | NUR ---
HAND-OFF: Report given to [place].
--- NOTE | 2019-05-28 19:15 | NUR ---
NURSE NOTES: Patient is in the bed, asleep at this time. No signs of distress or SOB. HOB elevated. G-tube in place and running as ordered. Manriquez catheter is in place and draining well. IV intact and running IVF as ordered. Bed locked and in lowest position. Bed alarm activated. Call light within reach. Will continue to follow plan of care.
[2019-05-28 20:00] VITALS: BP 150/95
--- NOTE | 2019-05-28 20:24 | Nephrology Progress Note ---
Assessment/Plan Problem List: (1) Dehydration (2) Hyponatremia (3) UTI (urinary tract infection) (4) Decubitus skin ulcer (5) BPH (benign prostatic hyperplasia) (6) Severe malnutrition Assessment: With multiple decubiti Assessment Acute metabolic encephalopathy UTI Dehydration, hyponatremia improved with saline infusion Patient has Manriquez catheter and GT tube Advance dementia- bed bound, PEG dependent Depression Anemia of most likely chronic disease- stable Hx of HTN Elevated liver enzymes Plan Potassium phosphate IV Slow saline infusion Monitor electrolytes Antibiotics for UTI Parameters for blood pressure medications Avoid nephrotoxics Subjective ROS Limited/Unobtainable: No Constitutional: Reports: malaise, weakness Objective Objective Last 24 Hour Vital Signs Date Time Temp Pulse Resp B/P (MAP) Pulse Ox O2 Delivery O2 Flow Rate FiO2 05/28/19 20:00 Nasal Cannula 2.0 05/28/19 19:29 96 Nasal Cannula 2.0 28 05/28/19 19:29 89 20 96 Nasal Cannula 2.0 28 05/28/19 16:00 98.1 96 19 138/80 (99) 98 05/28/19 12:00 98.4 100 20 141/77 (98) 99 05/28/19 09:37 140/80 05/28/19 09:00 98.7 96 19 140/80 (100) 98 05/28/19 09:00 Nasal Cannula 2.0 05/28/19 04:00 98.9 84 20 144/82 (102) 98 05/28/19 00:00 98.6 87 20 141/85 (103) 98 05/27/19 21:00 Nasal Cannula 2.0 Intake and Output 05/27/19 05/28/19 19:00 07:00 Intake Total 65 ml 685 ml Output Total 1000 ml 400 ml Balance -935 ml 285 ml Intake Free Water 100 ml Tube Feeding 65 ml 585 ml Output Urine Total 1000 ml 400 ml # Voids 1 Current Medications Medications (Trade) Dose Ordered Sig/Altagracia Route PRN Reason Start Time Stop Time Status Last Admin Dose Admin Acetaminophen (Tylenol) 650 mg Q4H PRN GT Mild Pain/Temp > 100.5 05/23/19 11:15 06/22/19 11:14 05/26/19 04:49 Dextrose (Dextrose 50%) 25 ml Q30M PRN IV Hypoglycemia 05/23/19 08:15 06/22/19 08:14 Dextrose (Dextrose 50%) 50 ml Q30M PRN IV Hypoglycemia 05/23/19 08:15 06/22/19 08:14 Heparin Sodium (Porcine) (Heparin 5000 units/ml) 5,000 units EVERY 12 HOURS SUBQ 05/23/19 09:00 06/22/19 08:59 05/28/19 09:38 Hydralazine HCl (Apresoline) 25 mg Q4H PRN GT SBP > 160 05/23/19 18:15 06/22/19 18:14 Lisinopril (PriniviL) 10 mg DAILY GT 05/24/19 09:00 06/22/19 08:59 05/28/19 09:37 Lorazepam (Ativan) 1 mg Q6H PRN ORAL For Anxiety 05/24/19 00:00 05/31/19 00:00 Meropenem 1 gm/ Sodium Chloride 100 ml @ 200 mls/hr Q8HR IVPB 05/25/19 22:00 05/30/19 21:59 05/28/19 14:41 Sodium Chloride 1,000 ml @ 50 mls/hr Q20H IV 05/23/19 18:15 06/22/19 18:14 05/27/19 23:21 Thiamine HCl (Vitamin B1) 100 mg DAILY GT 05/23/19 09:00 06/22/19 08:59 05/28/19 09:37 Tramadol HCl (Ultram) 50 mg DAILY PRN GT For Pain 05/23/19 08:15 05/30/19 08:14 Laboratory Tests 05/28/19 06:15: White Blood Count 13.0H, Red Blood Count 2.95L, Hemoglobin 8.8L, Hematocrit 26.1L, Mean Corpuscular Volume 89, Mean Corpuscular Hemoglobin 29.9, Mean Corpuscular Hemoglobin Concent 33.7, Red Cell Distribution Width 13.9, Platelet Count 291, Mean Platelet Volume 5.5L, Neutrophils (%) (Auto) 77.5H, Lymphocytes (%) (Auto) 15.7L, Monocytes (%) (Auto) 5.9, Eosinophils (%) (Auto) 0.6, Basophils (%) (Auto) 0.4, Sodium Level 141, Potassium Level 3.7, Chloride Level 107, Carbon Dioxide Level 25, Anion Gap 9, Blood Urea Nitrogen 14, Creatinine 0.6, Estimat Glomerular Filtration Rate > 60, Glucose Level 143H, Calcium Level 9.1, Total Bilirubin 0.3, Aspartate Amino Transf (AST/SGOT) 145H, Alanine Aminotransferase (ALT/SGPT) 196H, Alkaline Phosphatase 110, Total Protein 7.4, Albumin 2.6L, Globulin 4.8, Albumin/Globulin Ratio 0.5L Height (Feet): 5 Height (Inches): 6.00 Weight (Pounds): 101 General Appearance: no apparent distress Objective No change Minh Phipps MD May 28, 2019 20:24
[2019-05-28] MEDS: Acetaminophen 650mg/20.3ml GT PRN (22:05)
--- NOTE | 2019-05-28 22:36 | NUR ---
NURSE NOTES: Patient temp noted to be 101.8. Administered Tylenol 650mg for fever as ordered. Patient temp 100.0 upon recheck. Spoke with Dr. Torres. New orders received. Will follow plan of care and continue to monitor.
[2019-05-29] VITALS: BP 143/99
[2019-05-29] MEDS ORDERED: Vancomycin 1gm/D5W 275ml IVPB ONE ×2
[2019-05-29] MEDS: Vancomycin 500mg/D5W 110ml IVPB SCH ×2 (00:31)
[2019-05-29 04:00] VITALS: BP 139/101
[2019-05-29 06:46] LABS: APPEARANCE,URINE CLEAR; BILIRUBIN, URINE NEGATIVE (NEGATIVE); GLUCOSE, URINE (UA) NEGATIVE (NEGATIVE); KETONES,URINE 1+ (NEGATIVE); LEUKOCYTE ESTERASE ,URINE 1+ (NEGATIVE); NITRITE,URINE POSITIVE (NEGATIVE); PH,URINE 7 (4.5-8.0); PROTEIN,URINE 3+ (NEGATIVE); UROBILINOGEN,URINE 1 MG/DL (0.0-1.0)
[2019-05-29 06:55] LABS: COLOR,URINE YELLOW
[2019-05-29 07:32] LABS: ALANINE AMINOTRANSFERASE 251 U/L (12-78); ALBUMIN 2.8 G/DL (3.4-5.0); ALBUMIN/GLOBULIN RATIO 0.5 (1.0-2.7); ALKALINE PHOSPHATASE 129 U/L (46-116); ANION GAP 10 mmol/L (5-15); ASPARTATE AMINO TRANSFERASE 138 U/L (15-37); BILIRUBIN,TOTAL 0.3 MG/DL (0.2-1.0); BLOOD UREA NITROGEN 19 mg/dL (7-18); CALCIUM 9.4 MG/DL (8.5-10.1); CARBON DIOXIDE 25 MMOL/L (21-32); CHLORIDE 105 MMOL/L (98-107); CREATININE 0.6 MG/DL (0.55-1.30); POTASSIUM 3.8 MMOL/L (3.5-5.1); SODIUM 140 MMOL/L (136-145)
[2019-05-29 07:33] LABS: BASOPHILS % (AUTO) 0.5 % (0.0-2.0); EOSINOPHILS % (AUTO) 0.7 % (0.0-3.0); HEMATOCRIT 27.4 % (42.0-52.0); HEMOGLOBIN 9.3 G/DL (14.2-18.0); LYMPHOCYTES % (AUTO) 19.1 % (20.0-45.0); MEAN CORPUSCULAR VOLUME 89 FL (80-99); MONOCYTES % (AUTO) 6.5 % (1.0-10.0); NEUTROPHILS % (AUTO) 73.2 % (45.0-75.0); PLATELET COUNT 369 K/UL (150-450); RED BLOOD COUNT 3.09 M/UL (4.70-6.10); RED CELL DISTRIBUTION WIDTH 14.3 % (11.6-14.8); WHITE BLOOD COUNT 11.4 K/UL (4.8-10.8)
--- NOTE | 2019-05-29 07:45 | NUR ---
HAND-OFF: Report given to ANTOINETTE Holloway.
[2019-05-29 08:00] VITALS: BP 140/92
--- NOTE | 2019-05-29 08:00 | NUR ---
NURSE NOTES: Received patient is in the bed, asleep, no signs of distress or SOB. On aspiration precautions with HOB elevated. G-tube in place, receives Jevity 1.2 @ 65cc/hr X 20hr as day. Manriquez catheter is in place and draining well. IV access on the RFA, receives NS @ 50cc/hr. No sign of leakage or infiltration. Bed locked and in lowest position possible, bed alarm on, call light within reach. Will continue to monitor patient and follow up with the plan of care.
--- NOTE | 2019-05-29 09:21 | Diagnostic Imaging Report ---
EXAM: XR Chest, 1 View CLINICAL HISTORY: INFECT TECHNIQUE: Frontal view of the chest. COMPARISON: Chest x-ray 05/23/19 FINDINGS: Limitations: Exam degraded by rotation. Lungs: Mildly increased interstitial markings. Subsegmental atelectasis versus infiltrate in the medial right lung base. Pleural space: Unremarkable. The costophrenic angles are sharp. No visible pneumothorax. Heart: Unremarkable. No cardiomegaly. Mediastinum: Unremarkable. Bones/joints: Mild degenerative changes throughout the visualized spine. Vasculature: Atherosclerotic calcifications are noted within the aortic arch. IMPRESSION: 1. Mildly increased interstitial markings. This is likely related to chronic senescent changes although differential diagnosis may also include mild bronchitis or interstitial pneumonitis. 2. Subsegmental atelectasis versus infiltrate in the medial right lung base.
--- NOTE | 2019-05-29 10:16 | Nephrology Progress Note ---
Assessment/Plan Problem List: (1) Dehydration (2) Hyponatremia (3) UTI (urinary tract infection) (4) Decubitus skin ulcer (5) BPH (benign prostatic hyperplasia) (6) Severe malnutrition Assessment: With multiple decubiti Assessment Acute metabolic encephalopathy UTI Dehydration, hyponatremia improved with saline infusion Patient has Manriquez catheter and GT tube Advance dementia- bed bound, PEG dependent Depression Anemia of most likely chronic disease- stable Hx of HTN Elevated liver enzymes Plan Potassium phosphate IV Slow saline infusion Monitor electrolytes Antibiotics for UTI Parameters for blood pressure medications Avoid nephrotoxics Subjective ROS Limited/Unobtainable: No Constitutional: Reports: malaise, weakness Objective Objective Last 24 Hour Vital Signs Date Time Temp Pulse Resp B/P (MAP) Pulse Ox O2 Delivery O2 Flow Rate FiO2 05/29/19 08:00 98.4 101 17 140/92 (108) 95 05/29/19 04:31 Nasal Cannula 2.0 05/29/19 04:00 98.2 102 16 139/101 (114) 93 05/29/19 00:00 98.0 98 16 143/99 (114) 95 05/28/19 22:35 100.0 05/28/19 20:00 Nasal Cannula 2.0 05/28/19 20:00 101.8 103 16 150/95 (113) 93 05/28/19 19:29 96 Nasal Cannula 2.0 28 05/28/19 19:29 89 20 96 Nasal Cannula 2.0 28 05/28/19 16:00 98.1 96 19 138/80 (99) 98 05/28/19 12:00 98.4 100 20 141/77 (98) 99 Intake and Output 05/28/19 05/29/19 19:00 07:00 Intake Total 530 ml 850 ml Output Total 1800 ml 9000 ml Balance -1270 ml -8150 ml Intake Free Water 200 ml IV Total 400 ml Tube Feeding 130 ml 650 ml Output Urine Total 1800 ml 9000 ml Laboratory Tests 05/29/19 04:00: Urine Color Yellow, Urine Appearance Clear, Urine pH 7, Urine Specific [place] 1.010, Urine Protein 3+H, Urine Glucose (UA) Negative, Urine Ketones 1+H, Urine Blood 5+H, Urine Nitrite PositiveH, Urine Bilirubin Negative, Urine Urobilinogen 1H, Urine Leukocyte Esterase 1+H, Urine RBC 20-30H, Urine WBC 2-4, Urine Squamous Epithelial Cells Few, Urine Bacteria Few, Urine Mucus FewH 05/29/19 06:15: White Blood Count 11.4H, Red Blood Count 3.09L, Hemoglobin 9.3L, Hematocrit 27.4L, Mean Corpuscular Volume 89, Mean Corpuscular Hemoglobin 30.1, Mean Corpuscular Hemoglobin Concent 34.0, Red Cell Distribution Width 14.3, Platelet Count 369, Mean Platelet Volume 5.8L, Neutrophils (%) (Auto) 73.2, Lymphocytes ( %) (Auto) 19.1L, Monocytes (%) (Auto) 6.5, Eosinophils (%) (Auto) 0.7, Basophils (%) (Auto) 0.5, Sodium Level 140, Potassium Level 3.8, Chloride Level 105, Carbon Dioxide Level 25, Anion Gap 10, Blood Urea Nitrogen 19H, Creatinine 0.6, Estimat Glomerular Filtration Rate > 60, Glucose Level 146H, Calcium Level 9.4, Total Bilirubin 0.3, Aspartate Amino Transf (AST/SGOT) 138H, Alanine Aminotransferase (ALT/SGPT) 251H, Alkaline Phosphatase 129H, Total Protein 8.3H , Albumin 2.8L, Globulin 5.5, Albumin/Globulin Ratio 0.5L Height (Feet): 5 Height (Inches): 6.00 Weight (Pounds): 101 General Appearance: no apparent distress, lethargic Respiratory/Chest: decreased breath sounds Abdomen: soft Objective No change Minh Phipps MD May 29, 2019 10:16
[2019-05-29] MEDS: Thiamine 100mg tab GT SCH (10:25)
[2019-05-29] MEDS: Lisinopril 20mg tab GT SCH (10:26)
[2019-05-29] MEDS: Heparin 5000 units/ml inj SUBQ SCH ×2 (10:27→22:46)
[2019-05-29 10:41] LABS: PHOSPHORUS 1.9 MG/DL (2.5-4.9)
[2019-05-29 12:00] VITALS: BP 123/78
[2019-05-29] MEDS ORDERED: Potassium Phosphate 20 MM in NS 275 ML IV ONE (12:30)
--- NOTE | 2019-05-29 12:53 | Surgery Progress Note ---
Surgery Progress Note Subjective Additional Comments geraldine cute events comfortable stable tube feeds off currently Objective Last 24 Hour Vital Signs Date Time Temp Pulse Resp B/P (MAP) Pulse Ox O2 Delivery O2 Flow Rate FiO2 05/29/19 10:26 140/92 05/29/19 08:00 98.4 101 17 140/92 (108) 95 05/29/19 04:31 Nasal Cannula 2.0 05/29/19 04:00 98.2 102 16 139/101 (114) 93 05/29/19 00:00 98.0 98 16 143/99 (114) 95 05/28/19 22:35 100.0 05/28/19 20:00 Nasal Cannula 2.0 05/28/19 20:00 101.8 103 16 150/95 (113) 93 05/28/19 19:29 96 Nasal Cannula 2.0 28 05/28/19 19:29 89 20 96 Nasal Cannula 2.0 28 05/28/19 16:00 98.1 96 19 138/80 (99) 98 I&O Intake and Output 05/28/19 05/29/19 19:00 07:00 Intake Total 530 ml 850 ml Output Total 1800 ml 9000 ml Balance -1270 ml -8150 ml Intake Free Water 200 ml IV Total 400 ml Tube Feeding 130 ml 650 ml Output Urine Total 1800 ml 9000 ml Dressing: other Wound: other Drains: other Cardiovascular: RSR Respiratory: decreased breath sounds Abdomen: soft, present bowel sounds Extremities: no edema, no tenderness Laboratory Tests Test 05/29/19 04:00 05/29/19 06:15 Urine Color Yellow Urine Appearance Clear Urine pH 7 (4.5-8.0) Urine Specific [place] 1.010 (1.005-1.035) Urine Protein 3+ (NEGATIVE) H Urine Glucose (UA) Negative (NEGATIVE) Urine Ketones 1+ (NEGATIVE) H Urine Blood 5+ (NEGATIVE) H Urine Nitrite Positive (NEGATIVE) H Urine Bilirubin Negative (NEGATIVE) Urine Urobilinogen 1 MG/DL (0.0-1.0) H Urine Leukocyte Esterase 1+ (NEGATIVE) H Urine RBC 20-30 /HPF (0 - 0) H Urine WBC 2-4 /HPF (0 - 0) Urine Squamous Epithelial Cells Few /LPF (NONE/OCC) Urine Bacteria Few /HPF (NONE) Urine Mucus Few /LPF (NONE/OCC) H White Blood Count 11.4 K/UL (4.8-10.8) H Red Blood Count 3.09 M/UL (4.70-6.10) L Hemoglobin 9.3 G/DL (14.2-18.0) L Hematocrit 27.4 % (42.0-52.0) L Mean Corpuscular Volume 89 FL (80-99) Mean Corpuscular Hemoglobin 30.1 PG (27.0-31.0) Mean Corpuscular Hemoglobin Concent 34.0 G/DL (32.0-36.0) Red Cell Distribution Width 14.3 % (11.6-14.8) Platelet Count 369 K/UL (150-450) Mean Platelet Volume 5.8 FL (6.5-10.1) L Neutrophils (%) (Auto) 73.2 % (45.0-75.0) Lymphocytes (%) (Auto) 19.1 % (20.0-45.0) L Monocytes (%) (Auto) 6.5 % (1.0-10.0) Eosinophils (%) (Auto) 0.7 % (0.0-3.0) Basophils (%) (Auto) 0.5 % (0.0-2.0) Sodium Level 140 MMOL/L (136-145) Potassium Level 3.8 MMOL/L (3.5-5.1) Chloride Level 105 MMOL/L (98-107) Carbon Dioxide Level 25 MMOL/L (21-32) Anion Gap 10 mmol/L (5-15) Blood Urea Nitrogen 19 mg/dL (7-18) H Creatinine 0.6 MG/DL (0.55-1.30) Estimat Glomerular Filtration Rate > 60 mL/min (>60) Glucose Level 146 MG/DL (74-106) H Calcium Level 9.4 MG/DL (8.5-10.1) Phosphorus Level 1.9 MG/DL (2.5-4.9) L Magnesium Level 2.2 MG/DL (1.8-2.4) Total Bilirubin 0.3 MG/DL (0.2-1.0) Gamma Glutamyl Transpeptidase 92 U/L (5-85) H Aspartate Amino Transf (AST/SGOT) 138 U/L (15-37) H Alanine Aminotransferase (ALT/SGPT) 251 U/L (12-78) H Alkaline Phosphatase 129 U/L (46-116) H Total Protein 8.3 G/DL (6.4-8.2) H Albumin 2.8 G/DL (3.4-5.0) L Globulin 5.5 g/dL Albumin/Globulin Ratio 0.5 (1.0-2.7) L Plan Problems: (1) Failure to thrive syndrome, adult Assessment & Plan: cont feeds monitor labs as tolerated will continue needs close monitoring (2) Severe malnutrition Assessment & Plan: DAILY ESTIMATED NEEDS: Needs based on wasting, wounds/ 49kg 30-35 kcals/kg 3680-7681 total kcals 1.25-1.5 g protein/kg 61-74 g total protein 25-30 mL/kg 4741-5145 total fluid mLs NUTRITION DIAGNOSIS: * Swallowing difficulty R/T dysphagia as evidenced by pt is PEG dep. * Increased kcal/prot intake needs R/T wound healing and wasting as evidenced by pt admitted wounds, pending eval, noted w/ moderate generalized wasting. * Altered nutrition related lab values R/T prediabetes as evidenced by A1C of 6.0. CURRENT TF:Jevity 1.2 @ 65ml/hr x 20 hrs ENTERAL NUTRITION RECOMMENDATIONS: TF CHANGE-> Glucerna 1.2 @ 55ml/hr x 24 hrs to provide 1320ml, 1584kcal, 79g prot, 1063ml free water * REC TF CHANGE TO GLUCERNA 1.2- A1C of 6.0 * Start @25ml/hr, advance as tolerated 15ml/hr q4-6 hrs to goal * HOB over 30 degrees * Water flush of 100ml q 6 hrs without IVF ADDITIONAL RECOMMENDATIONS: * Calibrated bedscale wt * Monitor BGs, need for NISS: A1C 6.0 Pt will benefit from carb controlled TF formula, rec TF change as above * Wound care: f/up w/ WC eval Add YUNIOR in 4oz H2O via GT BID * Monitor lytes, replete as needed (3) Decubitus skin ulcer (4) Elevated LFTs Assessment & Plan: abnormal lf'ts The liver is unremarkable. Doppler interrogation of the main portal vein shows patency with hepatopedal, monophasic flow. There is no biliary ductal dilatation identified. Gallbladder is unremarkable. There demonstrated part of the pancreas and IVC show no definite abnormalities. Aorta is calcified. There is a small echogenic focus within the right kidney which may be a nonobstructive stone. Both kidneys appear unremarkable otherwise. There is no hydronephrosis. IMPRESSION: No acute findings Atherosclerotic disease. Possible stone in the right kidney likely med related trend will follow with recs thank you Reji Guy May 29, 2019 12:53
[2019-05-29 16:00] VITALS: BP 138/76
--- NOTE | 2019-05-29 16:47 | General Progress Note ---
Assessment/Plan Problem List: (1) UTI (urinary tract infection) ICD Codes: N39.0 - UTI (urinary tract infection) SNOMED: 01534792 Status: stable Assessment/Plan: 73 year old man with history of advanced dementia (bedbound, nonverbal, PEG dependent at baseline), dysphagia s/p PEG, HTN, depression, anemia of chronic disease, depression, and bilateral pressure ulcers in heels who presented from rehab facility with fever and hematuria #Sepsis, present on admission #Serratia and Pseudomonas acute cystitis, possible pyelonephritis #Hematuria #Pyuria #Elevated CRP, improved -continue inpatient level of care -Invanz changed to meropenem, will discuss duration of therapy with ID -ID following -Surgery eval appreciated, no appearance of acute wound infection #Acute on chronic anemia -likely sepsis related BM suppression -cont to monitor CBC #Dehydration #Hyponatremia, resolved -continue IV saline -Nephrology following #Hx of HTN -cont lisinopril #Advance dementia- bed bound, PEG dependent #Functional quadriplegia #Depression #Anemia of chronic disease- stable vte ppx: heparin sc code: full code, POLST reviewed Time spent: 35 mins, >50% on counseling and coordination of care. Time of note doesn't reflect time of encounter. Subjective Date patient seen: May 29, 2019 ROS Limited/Unobtainable: Yes - encephalopathic Allergies: Coded Allergies: No Known Allergies (Unverified , 08/20/18) Subjective resting in bed, nonverbal. Objective Last 24 Hour Vital Signs Date Time Temp Pulse Resp B/P (MAP) Pulse Ox O2 Delivery O2 Flow Rate FiO2 05/29/19 12:00 98.8 95 20 123/78 (93) 97 05/29/19 10:26 140/92 05/29/19 09:00 Nasal Cannula 2.0 05/29/19 08:00 98.4 101 17 140/92 (108) 95 05/29/19 04:31 Nasal Cannula 2.0 05/29/19 04:00 98.2 102 16 139/101 (114) 93 05/29/19 00:00 98.0 98 16 143/99 (114) 95 05/28/19 22:35 100.0 05/28/19 20:00 Nasal Cannula 2.0 05/28/19 20:00 101.8 103 16 150/95 (113) 93 05/28/19 19:29 96 Nasal Cannula 2.0 28 05/28/19 19:29 89 20 96 Nasal Cannula 2.0 28 Intake and Output 05/28/19 05/29/19 19:00 07:00 Intake Total 530 ml 965 ml Output Total 1800 ml 9000 ml Balance -1270 ml -8035 ml Intake Free Water 200 ml IV Total 400 ml 50 ml Tube Feeding 130 ml 715 ml Output Urine Total 1800 ml 9000 ml Laboratory Tests 05/29/19 04:00: Urine Color Yellow, Urine Appearance Clear, Urine pH 7, Urine Specific [place] 1.010, Urine Protein 3+H, Urine Glucose (UA) Negative, Urine Ketones 1+H, Urine Blood 5+H, Urine Nitrite PositiveH, Urine Bilirubin Negative, Urine Urobilinogen 1H, Urine Leukocyte Esterase 1+H, Urine RBC 20-30H, Urine WBC 2-4, Urine Squamous Epithelial Cells Few, Urine Bacteria Few, Urine Mucus FewH 05/29/19 06:15: White Blood Count 11.4H, Red Blood Count 3.09L, Hemoglobin 9.3L, Hematocrit 27.4L, Mean Corpuscular Volume 89, Mean Corpuscular Hemoglobin 30.1, Mean Corpuscular Hemoglobin Concent 34.0, Red Cell Distribution Width 14.3, Platelet Count 369, Mean Platelet Volume 5.8L, Neutrophils (%) (Auto) 73.2, Lymphocytes ( %) (Auto) 19.1L, Monocytes (%) (Auto) 6.5, Eosinophils (%) (Auto) 0.7, Basophils (%) (Auto) 0.5, Sodium Level 140, Potassium Level 3.8, Chloride Level 105, Carbon Dioxide Level 25, Anion Gap 10, Blood Urea Nitrogen 19H, Creatinine 0.6, Estimat Glomerular Filtration Rate > 60, Glucose Level 146H, Calcium Level 9.4, Phosphorus Level 1.9L, Magnesium Level 2.2, Total Bilirubin 0.3, Gamma Glutamyl Transpeptidase 92H, Aspartate Amino Transf (AST/SGOT) 138H, Alanine Aminotransferase (ALT/SGPT) 251H, Alkaline Phosphatase 129H, Total Protein 8.3H , Albumin 2.8L, Globulin 5.5, Albumin/Globulin Ratio 0.5L Height (Feet): 5 Height (Inches): 6.00 Weight (Pounds): 101 General Appearance: no apparent distress Neck: supple Cardiovascular: normal rate, regular rhythm Respiratory/Chest: lungs clear, normal breath sounds Abdomen: non tender, soft Luz Marina Ramesh M.D. May 29, 2019 16:47
--- NOTE | 2019-05-29 19:02 | NUR ---
HAND-OFF: Report given to ANTOINETTE Dodson.
--- NOTE | 2019-05-29 19:44 | NUR ---
NURSE NOTES: Patient is in the bed, asleep at this time. HOB elevated. G-tube in place and running as ordered. Manriquez catheter is in place and draining well. IV intact and patent. Bed locked and in lowest position. Bed alarm activated. Call light within reach. Will continue to follow plan of care.
[2019-05-29 20:00] VITALS: BP 121/72
--- NOTE | 2019-05-29 20:50 | Infectious Diseases Prog Note ---
Assessment/Plan Assessment/Plan ASSESSMENT AND PLAN: 1. pseudomonas uti/MDR serratia uti, sepsis, fevers, leukocytosis recurrent fevers - ? new infection - meropenem - day # 5 abx - vancomycin added because of fevers - f/u on surveillance blood cultures - chest x-ray without obvious consolidation, urinalysis improved with less wbc - monitor labs and clinically - monitor temps 2. Chest x-ray with atelectasis. 3. Anemia. 4. Hypernatremia. 5. Hypertension. 6. Hypertensive heart disease. 7. History of UTI, pneumonia. 8. Hypertension treatment per primary care team and Nephrology. 9. Wound care protocol. 10. COPD. 11. Dementia. 12. History of failure to thrive. 13. Dysphagia, G-tube. 14. History of hyperkalemia. 15. Continue treatment per primary consultants. 16. No known allergies. 17. Social history negative. 18. Family history is noncontributory. 19. MAR was noted. 20. Case discussed with RN. 21. Orders were noted and entered. 22. d/w primary care team Subjective Constitutional: Reports: fever HEENT: Denies: congestion Respiratory: Denies: shortness of breath Cardiovascular: Denies: chest pain Gastrointestinal/Abdominal: Denies: nausea, vomiting, diarrhea Genitourinary: Reports: other - + duggan ; Denies: dysuria Neurologic: Denies: headache Psychiatric: Denies: depression Skin: Denies: rash Hematologic: Denies: bleeding Allergies: Coded Allergies: No Known Allergies (Unverified , 08/20/18) Objective Vital Signs Last 24 Hour Vital Signs Date Time Temp Pulse Resp B/P (MAP) Pulse Ox O2 Delivery O2 Flow Rate FiO2 05/29/19 16:00 98.8 97 18 138/76 (96) 93 05/29/19 12:00 98.8 95 20 123/78 (93) 97 05/29/19 10:26 140/92 05/29/19 09:00 Nasal Cannula 2.0 05/29/19 08:00 98.4 101 17 140/92 (108) 95 05/29/19 04:31 Nasal Cannula 2.0 05/29/19 04:00 98.2 102 16 139/101 (114) 93 05/29/19 00:00 98.0 98 16 143/99 (114) 95 05/28/19 22:35 100.0 Height (Feet): 5 Height (Inches): 6.00 Weight (Pounds): 101 General Appearance: no acute distress HEENT: normocephalic, atraumatic, anicteric, pharynx normal, no JVD Respiratory/Chest: lungs clear, normal breath sounds, no respiratory distress, no accessory muscle use Cardiovascular: normal rate, regular rhythm, no gallop/murmur, no JVD Abdomen: normal bowel sounds, soft, non tender, no organomegaly, non distended Genitourinary: other - + duggan Extremities: no cyanosis Skin: no rash Neurologic/Psychiatric: 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 Findings: There is suggestion of mild basal atelectasis. No infiltrate seen. The evaluation is limited by severe rotation. Heart size is probably normal. Bones are osteopenic. IMPRESSION: Suspected mild basal atelectasis. Chest x-ray - 05/29/19 - IMPRESSION: 1. Mildly increased interstitial markings. This is likely related to chronic senescent changes although differential diagnosis may also include mild bronchitis or interstitial pneumonitis. 2. Subsegmental atelectasis versus infiltrate in the medial right lung base. Microbiology Date/Time Source Procedure Growth Status 05/23/19 02:45 Blood Blood Culture - Final NO GROWTH AFTER 5 DAYS Complete 05/23/19 04:35 Nasal Nares MRSA Culture - Final NO METHICILLIN RESISTANT STAPH AUREUS... Complete 05/23/19 02:42 Urine,Clean Catch Urine Culture - Final Serratia Species Pseudomonas Aeruginosa Complete 05/23/19 04:35 Rectum - Final NO CARBAPENEM-RESISTANT ENTEROBACTERI... Complete Laboratory Tests Test 05/29/19 04:00 05/29/19 06:15 Urine Color Yellow Urine Appearance Clear Urine pH 7 (4.5-8.0) Urine Specific [place] 1.010 (1.005-1.035) Urine Protein 3+ (NEGATIVE) H Urine Glucose (UA) Negative (NEGATIVE) Urine Ketones 1+ (NEGATIVE) H Urine Blood 5+ (NEGATIVE) H Urine Nitrite Positive (NEGATIVE) H Urine Bilirubin Negative (NEGATIVE) Urine Urobilinogen 1 MG/DL (0.0-1.0) H Urine Leukocyte Esterase 1+ (NEGATIVE) H Urine RBC 20-30 /HPF (0 - 0) H Urine WBC 2-4 /HPF (0 - 0) Urine Squamous Epithelial Cells Few /LPF (NONE/OCC) Urine Bacteria Few /HPF (NONE) Urine Mucus Few /LPF (NONE/OCC) H White Blood Count 11.4 K/UL (4.8-10.8) H Red Blood Count 3.09 M/UL (4.70-6.10) L Hemoglobin 9.3 G/DL (14.2-18.0) L Hematocrit 27.4 % (42.0-52.0) L Mean Corpuscular Volume 89 FL (80-99) Mean Corpuscular Hemoglobin 30.1 PG (27.0-31.0) Mean Corpuscular Hemoglobin Concent 34.0 G/DL (32.0-36.0) Red Cell Distribution Width 14.3 % (11.6-14.8) Platelet Count 369 K/UL (150-450) Mean Platelet Volume 5.8 FL (6.5-10.1) L Neutrophils (%) (Auto) 73.2 % (45.0-75.0) Lymphocytes (%) (Auto) 19.1 % (20.0-45.0) L Monocytes (%) (Auto) 6.5 % (1.0-10.0) Eosinophils (%) (Auto) 0.7 % (0.0-3.0) Basophils (%) (Auto) 0.5 % (0.0-2.0) Sodium Level 140 MMOL/L (136-145) Potassium Level 3.8 MMOL/L (3.5-5.1) Chloride Level 105 MMOL/L (98-107) Carbon Dioxide Level 25 MMOL/L (21-32) Anion Gap 10 mmol/L (5-15) Blood Urea Nitrogen 19 mg/dL (7-18) H Creatinine 0.6 MG/DL (0.55-1.30) Estimat Glomerular Filtration Rate > 60 mL/min (>60) Glucose Level 146 MG/DL (74-106) H Calcium Level 9.4 MG/DL (8.5-10.1) Phosphorus Level 1.9 MG/DL (2.5-4.9) L Magnesium Level 2.2 MG/DL (1.8-2.4) Total Bilirubin 0.3 MG/DL (0.2-1.0) Gamma Glutamyl Transpeptidase 92 U/L (5-85) H Aspartate Amino Transf (AST/SGOT) 138 U/L (15-37) H Alanine Aminotransferase (ALT/SGPT) 251 U/L (12-78) H Alkaline Phosphatase 129 U/L (46-116) H Total Protein 8.3 G/DL (6.4-8.2) H Albumin 2.8 G/DL (3.4-5.0) L Globulin 5.5 g/dL Albumin/Globulin Ratio 0.5 (1.0-2.7) L Current Medications Medications (Trade) Dose Ordered Sig/Altagracia Route PRN Reason Start Time Stop Time Status Last Admin Dose Admin Acetaminophen (Tylenol) 650 mg Q4H PRN GT Mild Pain/Temp > 100.5 05/23/19 11:15 06/22/19 11:14 05/28/19 22:05 Dextrose (Dextrose 50%) 25 ml Q30M PRN IV Hypoglycemia 05/23/19 08:15 06/22/19 08:14 Dextrose (Dextrose 50%) 50 ml Q30M PRN IV Hypoglycemia 05/23/19 08:15 06/22/19 08:14 Heparin Sodium (Porcine) (Heparin 5000 units/ml) 5,000 units EVERY 12 HOURS SUBQ 05/23/19 09:00 06/22/19 08:59 05/29/19 10:27 Hydralazine HCl (Apresoline) 25 mg Q4H PRN GT SBP > 160 05/23/19 18:15 06/22/19 18:14 Lisinopril (PriniviL) 10 mg DAILY GT 05/24/19 09:00 06/22/19 08:59 05/29/19 10:26 Lorazepam (Ativan) 1 mg Q6H PRN ORAL For Anxiety 05/24/19 00:00 05/31/19 00:00 Meropenem 1 gm/ Sodium Chloride 100 ml @ 200 mls/hr Q8HR IVPB 05/25/19 22:00 05/30/19 21:59 05/29/19 15:05 Sodium Chloride 1,000 ml @ 50 mls/hr Q20H IV 05/23/19 18:15 06/22/19 18:14 05/27/19 23:21 Thiamine HCl (Vitamin B1) 100 mg DAILY GT 05/23/19 09:00 06/22/19 08:59 05/29/19 10:25 Tramadol HCl (Ultram) 50 mg DAILY PRN GT For Pain 05/23/19 08:15 05/30/19 08:14 Vancomycin HCl (Vanco rx to dose) 1 ea DAILY PRN MISC Per rx protocol 05/28/19 22:45 06/27/19 22:44 Vancomycin HCl 500 mg/Dextrose 110 ml @ 110 mls/hr Q24H IVPB 05/29/19 23:00 06/03/19 22:59 Bonny Rincon MD May 29, 2019 20:50
[2019-05-29] MEDS: Acetaminophen 650mg/20.3ml GT PRN (22:41)
[2019-05-30] VITALS: BP 126/71
[2019-05-30 04:00] VITALS: BP 126/69
[2019-05-30 06:56] LABS: BASOPHILS % (AUTO) 0.7 % (0.0-2.0); EOSINOPHILS % (AUTO) 0.4 % (0.0-3.0); HEMATOCRIT 25.9 % (42.0-52.0); HEMOGLOBIN 8.9 G/DL (14.2-18.0); LYMPHOCYTES % (AUTO) 19.9 % (20.0-45.0); MEAN CORPUSCULAR VOLUME 90 FL (80-99); MONOCYTES % (AUTO) 6.7 % (1.0-10.0); NEUTROPHILS % (AUTO) 72.3 % (45.0-75.0); PLATELET COUNT 382 K/UL (150-450); RED BLOOD COUNT 2.88 M/UL (4.70-6.10); RED CELL DISTRIBUTION WIDTH 14.3 % (11.6-14.8); WHITE BLOOD COUNT 13.2 K/UL (4.8-10.8)
[2019-05-30 07:37] LABS: ALANINE AMINOTRANSFERASE 181 U/L (12-78); ALBUMIN 2.6 G/DL (3.4-5.0); ALBUMIN/GLOBULIN RATIO 0.5 (1.0-2.7); ALKALINE PHOSPHATASE 102 U/L (46-116); ANION GAP 14 mmol/L (5-15); ASPARTATE AMINO TRANSFERASE 62 U/L (15-37); BILIRUBIN,TOTAL 0.7 MG/DL (0.2-1.0); BLOOD UREA NITROGEN 22 mg/dL (7-18); CALCIUM 9.2 MG/DL (8.5-10.1); CARBON DIOXIDE 20 MMOL/L (21-32); CHLORIDE 107 MMOL/L (98-107); POTASSIUM 4.1 MMOL/L (3.5-5.1); SODIUM 141 MMOL/L (136-145)
--- NOTE | 2019-05-30 07:47 | NUR ---
HAND-OFF: Report given to ANTOINETTE Holloway.
--- NOTE | 2019-05-30 07:59 | NUR ---
NURSE NOTES: Received patient is in the bed, asleep, no signs of distress or SOB. On aspiration precautions patient on HOB elevated. Patient has G-tube, receives Jevity 1.2 @ 65cc/hr X 20hr/day. Manriquez catheter is in place. RFA IV access, receives NS @ 50cc/hr. No sign of leakage or infiltration. Bed locked and in lowest position possible, bed alarm on, call light within reach. Will continue to monitor patient and follow up with the plan of care.
[2019-05-30 08:00] VITALS: BP 112/78
[2019-05-30] MEDS: Lisinopril 20mg tab GT SCH (09:00)
[2019-05-30] MEDS: Thiamine 100mg tab GT SCH (10:14)
[2019-05-30] MEDS: Heparin 5000 units/ml inj SUBQ SCH ×2 (10:15→21:05)
[2019-05-30 12:00] VITALS: BP 142/84
--- NOTE | 2019-05-30 12:41 | Nephrology Progress Note ---
Assessment/Plan Problem List: (1) Dehydration (2) Hyponatremia (3) UTI (urinary tract infection) (4) Decubitus skin ulcer (5) BPH (benign prostatic hyperplasia) (6) Severe malnutrition Assessment: With multiple decubiti Assessment Acute metabolic encephalopathy UTI Dehydration, hyponatremia improved with saline infusion Patient has Manriquez catheter and GT tube Advance dementia- bed bound, PEG dependent Depression Anemia of most likely chronic disease- stable Hx of HTN Elevated liver enzymes Plan Today's lab reviewed Potassium phosphate IV as needed Slow saline infusion Monitor electrolytes Antibiotics for UTI Parameters for blood pressure medications Avoid nephrotoxics Subjective ROS Limited/Unobtainable: No Constitutional: Reports: malaise, weakness Objective Objective Last 24 Hour Vital Signs Date Time Temp Pulse Resp B/P (MAP) Pulse Ox O2 Delivery O2 Flow Rate FiO2 05/30/19 09:00 Nasal Cannula 2.0 05/30/19 09:00 112/78 05/30/19 08:00 98.9 95 18 112/78 (89) 96 05/30/19 04:00 99.0 94 25 126/69 (88) 98 05/30/19 00:00 98.6 94 18 126/71 (89) 94 05/29/19 23:11 99.0 05/29/19 20:58 Nasal Cannula 2.0 05/29/19 20:00 101.1 108 18 121/72 (88) 92 05/29/19 16:00 98.8 97 18 138/76 (96) 93 Intake and Output 05/29/19 05/30/19 19:00 07:00 Intake Total 1228 ml 875 ml Output Total 800 ml Balance 1228 ml 75 ml Intake Free Water 120 ml 160 ml IV Total 588 ml Tube Feeding 520 ml 715 ml Output Urine Total 800 ml # Voids 1 Laboratory Tests 05/30/19 06:00: White Blood Count 13.2H, Red Blood Count 2.88L, Hemoglobin 8.9L, Hematocrit 25.9L, Mean Corpuscular Volume 90, Mean Corpuscular Hemoglobin 30.8, Mean Corpuscular Hemoglobin Concent 34.3, Red Cell Distribution Width 14.3, Platelet Count 382, Mean Platelet Volume 5.8L, Neutrophils (%) (Auto) 72.3, Lymphocytes ( %) (Auto) 19.9L, Monocytes (%) (Auto) 6.7, Eosinophils (%) (Auto) 0.4, Basophils (%) (Auto) 0.7, Sodium Level 141, Potassium Level 4.1, Chloride Level 107, Carbon Dioxide Level 20L, Anion Gap 14, Blood Urea Nitrogen 22H, Creatinine 1.0#, Estimat Glomerular Filtration Rate > 60, Glucose Level 134H, Calcium Level 9.2, Total Bilirubin 0.7, Aspartate Amino Transf (AST/SGOT) 62H, Alanine Aminotransferase (ALT/SGPT) 181H, Alkaline Phosphatase 102, Total Protein 8.2, Albumin 2.6L, Globulin 5.6, Albumin/Globulin Ratio 0.5L Height (Feet): 5 Height (Inches): 6.00 Weight (Pounds): 101 General Appearance: no apparent distress, lethargic Cardiovascular: tachycardia Respiratory/Chest: decreased breath sounds Abdomen: soft Objective No change Minh Phipps MD May 30, 2019 12:41
--- NOTE | 2019-05-30 12:57 | NUR ---
DISCHARGE PLANNING PATIENT HAS BEEN REFERRED BACK TO [facility] P: [phone] F: [phone] Addendum: 05/30/19 at 1351 by FRANSICO JUAREZ LVN LVN CALL BACK RECEIVED FROM ANNE AT [facility]. INFORMED CM PATIENT ACCEPTED TO RETURN WITH FOLLOWING ROOM ASSIGNMENT PENDING OFFICIAL DISCHARGE ORDER 39-[id number] SKILLED
--- NOTE | 2019-05-30 15:41 | General Progress Note ---
Assessment/Plan Problem List: (1) UTI (urinary tract infection) ICD Codes: N39.0 - UTI (urinary tract infection) SNOMED: 16311306 Status: stable Assessment/Plan: 73 year old man with history of advanced dementia (bedbound, nonverbal, PEG dependent at baseline), dysphagia s/p PEG, HTN, depression, anemia of chronic disease, depression, and bilateral pressure ulcers in heels who presented from rehab facility with fever and hematuria #Sepsis, present on admission #Serratia and Pseudomonas acute cystitis, possible pyelonephritis #Hematuria #Pyuria #Elevated CRP, improved -continue inpatient level of care -Invanz changed to meropenem, will discuss duration of therapy with ID. -Had new fever on 05/28, per ID will continue inpatient hospitalization, not ready for SNF d/c yet. -ID following -Surgery eval appreciated, no appearance of acute wound infection #Acute on chronic anemia -likely sepsis related BM suppression -cont to monitor CBC #Dehydration #Hyponatremia, resolved -continue IV saline -Nephrology following #Hx of HTN -cont lisinopril #Advance dementia- bed bound, PEG dependent #Functional quadriplegia #Depression #Anemia of chronic disease- stable vte ppx: heparin sc code: full code, POLST reviewed Time of note doesn't reflect time of encounter. Subjective Date patient seen: May 30, 2019 ROS Limited/Unobtainable: Yes - encephalopathic, unable to provide ROS Allergies: Coded Allergies: No Known Allergies (Unverified , 08/20/18) Subjective resting in bed, comfortable. Objective Last 24 Hour Vital Signs Date Time Temp Pulse Resp B/P (MAP) Pulse Ox O2 Delivery O2 Flow Rate FiO2 05/30/19 12:00 98.8 103 18 142/84 (103) 96 05/30/19 09:00 Nasal Cannula 2.0 05/30/19 09:00 112/78 05/30/19 08:00 98.9 95 18 112/78 (89) 96 05/30/19 04:00 99.0 94 25 126/69 (88) 98 05/30/19 00:00 98.6 94 18 126/71 (89) 94 05/29/19 23:11 99.0 05/29/19 20:58 Nasal Cannula 2.0 05/29/19 20:00 101.1 108 18 121/72 (88) 92 05/29/19 16:00 98.8 97 18 138/76 (96) 93 Intake and Output 05/29/19 05/30/19 19:00 07:00 Intake Total 1228 ml 875 ml Output Total 800 ml Balance 1228 ml 75 ml Intake Free Water 120 ml 160 ml IV Total 588 ml Tube Feeding 520 ml 715 ml Output Urine Total 800 ml # Voids 1 Laboratory Tests 05/30/19 06:00: White Blood Count 13.2H, Red Blood Count 2.88L, Hemoglobin 8.9L, Hematocrit 25.9L, Mean Corpuscular Volume 90, Mean Corpuscular Hemoglobin 30.8, Mean Corpuscular Hemoglobin Concent 34.3, Red Cell Distribution Width 14.3, Platelet Count 382, Mean Platelet Volume 5.8L, Neutrophils (%) (Auto) 72.3, Lymphocytes ( %) (Auto) 19.9L, Monocytes (%) (Auto) 6.7, Eosinophils (%) (Auto) 0.4, Basophils (%) (Auto) 0.7, Sodium Level 141, Potassium Level 4.1, Chloride Level 107, Carbon Dioxide Level 20L, Anion Gap 14, Blood Urea Nitrogen 22H, Creatinine 1.0#, Estimat Glomerular Filtration Rate > 60, Glucose Level 134H, Calcium Level 9.2, Total Bilirubin 0.7, Aspartate Amino Transf (AST/SGOT) 62H, Alanine Aminotransferase (ALT/SGPT) 181H, Alkaline Phosphatase 102, Total Protein 8.2, Albumin 2.6L, Globulin 5.6, Albumin/Globulin Ratio 0.5L Height (Feet): 5 Height (Inches): 6.00 Weight (Pounds): 101 General Appearance: no apparent distress Neck: supple Cardiovascular: normal rate, regular rhythm Respiratory/Chest: lungs clear, normal breath sounds Abdomen: non tender, soft Luz Marina Ramesh M.D. May 30, 2019 15:41
--- NOTE | 2019-05-30 15:48 | Surgery Progress Note ---
Surgery Progress Note Subjective Symptoms: improved, tolerating diet, voiding well, passing flatus Objective Last 24 Hour Vital Signs Date Time Temp Pulse Resp B/P (MAP) Pulse Ox O2 Delivery O2 Flow Rate FiO2 05/30/19 12:00 98.8 103 18 142/84 (103) 96 05/30/19 09:00 Nasal Cannula 2.0 05/30/19 09:00 112/78 05/30/19 08:00 98.9 95 18 112/78 (89) 96 05/30/19 04:00 99.0 94 25 126/69 (88) 98 05/30/19 00:00 98.6 94 18 126/71 (89) 94 05/29/19 23:11 99.0 05/29/19 20:58 Nasal Cannula 2.0 05/29/19 20:00 101.1 108 18 121/72 (88) 92 05/29/19 16:00 98.8 97 18 138/76 (96) 93 I&O Intake and Output 05/29/19 05/30/19 19:00 07:00 Intake Total 1228 ml 875 ml Output Total 800 ml Balance 1228 ml 75 ml Intake Free Water 120 ml 160 ml IV Total 588 ml Tube Feeding 520 ml 715 ml Output Urine Total 800 ml # Voids 1 Dressing: saturated Wound: other Drains: other Cardiovascular: RSR Respiratory: decreased breath sounds Abdomen: soft, non-tender, present bowel sounds Extremities: no tenderness, no cyanosis Laboratory Tests Test 05/30/19 06:00 White Blood Count 13.2 K/UL (4.8-10.8) H Red Blood Count 2.88 M/UL (4.70-6.10) L Hemoglobin 8.9 G/DL (14.2-18.0) L Hematocrit 25.9 % (42.0-52.0) L Mean Corpuscular Volume 90 FL (80-99) Mean Corpuscular Hemoglobin 30.8 PG (27.0-31.0) Mean Corpuscular Hemoglobin Concent 34.3 G/DL (32.0-36.0) Red Cell Distribution Width 14.3 % (11.6-14.8) Platelet Count 382 K/UL (150-450) Mean Platelet Volume 5.8 FL (6.5-10.1) L Neutrophils (%) (Auto) 72.3 % (45.0-75.0) Lymphocytes (%) (Auto) 19.9 % (20.0-45.0) L Monocytes (%) (Auto) 6.7 % (1.0-10.0) Eosinophils (%) (Auto) 0.4 % (0.0-3.0) Basophils (%) (Auto) 0.7 % (0.0-2.0) Sodium Level 141 MMOL/L (136-145) Potassium Level 4.1 MMOL/L (3.5-5.1) Chloride Level 107 MMOL/L (98-107) Carbon Dioxide Level 20 MMOL/L (21-32) L Anion Gap 14 mmol/L (5-15) Blood Urea Nitrogen 22 mg/dL (7-18) H Creatinine 1.0 MG/DL (0.55-1.30) # Estimat Glomerular Filtration Rate > 60 mL/min (>60) Glucose Level 134 MG/DL (74-106) H Calcium Level 9.2 MG/DL (8.5-10.1) Total Bilirubin 0.7 MG/DL (0.2-1.0) Aspartate Amino Transf (AST/SGOT) 62 U/L (15-37) H Alanine Aminotransferase (ALT/SGPT) 181 U/L (12-78) H Alkaline Phosphatase 102 U/L (46-116) Total Protein 8.2 G/DL (6.4-8.2) Albumin 2.6 G/DL (3.4-5.0) L Globulin 5.6 g/dL Albumin/Globulin Ratio 0.5 (1.0-2.7) L Plan Problems: (1) Failure to thrive syndrome, adult Assessment & Plan: cont feeds monitor labs as tolerated will continue needs close monitoring (2) Severe malnutrition Assessment & Plan: DAILY ESTIMATED NEEDS: Needs based on wasting, wounds/ 49kg 30-35 kcals/kg 2954-8624 total kcals 1.25-1.5 g protein/kg 61-74 g total protein 25-30 mL/kg 2219-6742 total fluid mLs NUTRITION DIAGNOSIS: * Swallowing difficulty R/T dysphagia as evidenced by pt is PEG dep. * Increased kcal/prot intake needs R/T wound healing and wasting as evidenced by pt admitted wounds, pending eval, noted w/ moderate generalized wasting. * Altered nutrition related lab values R/T prediabetes as evidenced by A1C of 6.0. CURRENT TF:Jevity 1.2 @ 65ml/hr x 20 hrs ENTERAL NUTRITION RECOMMENDATIONS: TF CHANGE-> Glucerna 1.2 @ 55ml/hr x 24 hrs to provide 1320ml, 1584kcal, 79g prot, 1063ml free water * REC TF CHANGE TO GLUCERNA 1.2- A1C of 6.0 * Start @25ml/hr, advance as tolerated 15ml/hr q4-6 hrs to goal * HOB over 30 degrees * Water flush of 100ml q 6 hrs without IVF ADDITIONAL RECOMMENDATIONS: * Calibrated bedscale wt * Monitor BGs, need for NISS: A1C 6.0 Pt will benefit from carb controlled TF formula, rec TF change as above * Wound care: f/up w/ WC eval Add YUNIOR in 4oz H2O via GT BID * Monitor lytes, replete as needed (3) Decubitus skin ulcer (4) Elevated LFTs Assessment & Plan: abnormal lf'ts The liver is unremarkable. Doppler interrogation of the main portal vein shows patency with hepatopedal, monophasic flow. There is no biliary ductal dilatation identified. Gallbladder is unremarkable. There demonstrated part of the pancreas and IVC show no definite abnormalities. Aorta is calcified. There is a small echogenic focus within the right kidney which may be a nonobstructive stone. Both kidneys appear unremarkable otherwise. There is no hydronephrosis. IMPRESSION: No acute findings Atherosclerotic disease. Possible stone in the right kidney likely med related trend will follow with recs thank you Reji Guy May 30, 2019 15:48
--- NOTE | 2019-05-30 15:59 | NUR ---
CASE MANAGEMENT:REVIEW SI;UTI. SEPSIS. AC/CHR ANEMIA. 99.0 103 25 142/84 94% 2L NC WBC 13.2 H/H 8.9/25.9 BUN 22 AST 62 ALT 181 IS;MEROPENEM IV Q8 HRS VANCOMYCIN IV Q24 HRS LISINOPRIL GT QD IVF NS @ 50ML/HR HYDRALAZINE GT Q4 HR PRN HEPARIN SUBQ Q12 HRS MED SURG STATUS DCP;FROM [facility]
[2019-05-30 16:00] VITALS: BP 92/56
--- NOTE | 2019-05-30 19:10 | NUR ---
HAND-OFF: Report given to ANTOINETTE Hayes.
[2019-05-30] MEDS: Meropenem 500mg in NS 55ml IVPB SCH (19:50)
[2019-05-30 20:00] VITALS: BP 102/53
--- NOTE | 2019-05-30 20:00 | NUR ---
NURSE NOTES: Received report from ANTOINETTE Leblanc. Patient awake with spontaneous eye opening, but aphasic. Breathing unlabored on 2L O2 via NC. No s/s of distress, discomfort, or pain at this time. IV noted on right hand intact and patent. Gtube noted running feeding as ordered without residual. Manriquez intact draining urine to gravity and anchor secured. Patient on P200 mattress. Bed placed at the lowest with HOB up, alarm on, brake on, and siderails up for safety. Call light placed within reach. Will continue to monitor.
[2019-05-30] MEDS: Vancomycin 500mg/D5W 110ml IVPB SCH ×2 (23:06)
--- NOTE | 2019-05-30 23:45 | Progress Note ---
DATE: 05/30/2019 SUBJECTIVE: The patient is in bed, asleep, arousable. He has episodes of agitation following G-tube feeding. MENTAL STATUS EXAMINATION: The patient is alert and disoriented. Mood is anxious. Affect is flat. Thought process is concrete. Thought content, no suicidal or homicidal ideation. ASSESSMENT: 1. Severe encephalopathy. 2. Dementia. PLAN: 1. Ativan p.r.n. 2. We will continue to follow and readjust the medications. Rob Baltazar M.D. DR: MATT JOB#: [id number] CC:
[2019-05-31] VITALS (7 sets, daily range): BP systolic 100–148; BP diastolic 49–84
[2019-05-31] MEDS: Meropenem 500mg in NS 55ml IVPB SCH ×3 (02:11→18:02)
--- NOTE | 2019-05-31 05:45 | NUR ---
NURSE NOTES: Provided proper incontinence care throughout the shift. Patient had a bm x 1, soft and brown.
--- NOTE | 2019-05-31 07:36 | NUR ---
HAND-OFF: Report given to ANTOINETTE Austin. Plan of care endorsed.
--- NOTE | 2019-05-31 07:38 | NUR ---
NURSE NOTES: Received patient in bed, awake, patient is on oxygen @2L/min. Breathing is even and unlabored. No s/s of pain or discomfort. IV is intact, GT intact, off for now due to limited time. HOB elevated. Will continue plan of care.
[2019-05-31 08:13] LABS: BASOPHILS % (AUTO) 0.6 % (0.0-2.0); EOSINOPHILS % (AUTO) 0.7 % (0.0-3.0); HEMOGLOBIN 8.1 G/DL (14.2-18.0); LYMPHOCYTES % (AUTO) 17.1 % (20.0-45.0); MEAN CORPUSCULAR VOLUME 89 FL (80-99); MONOCYTES % (AUTO) 8.6 % (1.0-10.0); NEUTROPHILS % (AUTO) 73.1 % (45.0-75.0); PLATELET COUNT 379 K/UL (150-450); RED BLOOD COUNT 2.69 M/UL (4.70-6.10); RED CELL DISTRIBUTION WIDTH 14.2 % (11.6-14.8); WHITE BLOOD COUNT 10.8 K/UL (4.8-10.8)
[2019-05-31 08:50] LABS: ALANINE AMINOTRANSFERASE 180 U/L (12-78); ALBUMIN 2.5 G/DL (3.4-5.0); ALBUMIN/GLOBULIN RATIO 0.5 (1.0-2.7); ALKALINE PHOSPHATASE 109 U/L (46-116); ANION GAP 14 mmol/L (5-15); ASPARTATE AMINO TRANSFERASE 92 U/L (15-37); BILIRUBIN,TOTAL 0.5 MG/DL (0.2-1.0); BLOOD UREA NITROGEN 22 mg/dL (7-18); CALCIUM 9.1 MG/DL (8.5-10.1); CARBON DIOXIDE 20 MMOL/L (21-32); CHLORIDE 106 MMOL/L (98-107); CREATININE 0.7 MG/DL (0.55-1.30); POTASSIUM 3.8 MMOL/L (3.5-5.1); SODIUM 140 MMOL/L (136-145)
[2019-05-31 08:52] LABS: PHOSPHORUS 2.2 MG/DL (2.5-4.9)
[2019-05-31] MEDS: Thiamine 100mg tab GT SCH (09:08)
[2019-05-31] MEDS: Lisinopril 20mg tab GT SCH (09:08)
[2019-05-31] MEDS: Heparin 5000 units/ml inj SUBQ SCH ×2 (09:09→21:20)
--- NOTE | 2019-05-31 10:38 | NUR ---
NURSE NOTES: Patient noted with hiccups and Dr. Martinez came in and RN relayed episodes of hiccups and recommended med but Dr. Kramer declined and said to monitor patient and he is aware of phosphorus of 2.2 today.
--- NOTE | 2019-05-31 11:16 | NUR ---
RD ASSESSMENT & RECOMMENDATIONS SEE CARE ACTIVITY FOR COMPLETE ASSESSMENT DAILY ESTIMATED NEEDS: Needs based on wasting, wounds/ 49kg 30-35 kcals/kg 3785-0689 total kcals 1.25-1.5 g protein/kg 61-74 g total protein 25-30 mL/kg 3709-8301 total fluid mLs NUTRITION DIAGNOSIS: * Swallowing difficulty R/T dysphagia as evidenced by pt is PEG dep. * Increased kcal/prot intake needs R/T wound healing and wasting as evidenced by pt admitted wounds, pending eval, noted w/ moderate generalized wasting. * Altered nutrition related lab values R/T prediabetes as evidenced by A1C of 6.0. CURRENT TF:Jevity 1.2 @ 65ml/hr x 20 hrs ENTERAL NUTRITION RECOMMENDATIONS: TF CHANGE-> Glucerna 1.2 @ 55ml/hr x 24 hrs to provide 1320ml, 1584kcal, 79g prot, 1063ml free water * REC TF CHANGE TO GLUCERNA 1.2- A1C of 6.0 * Start @25ml/hr, advance as tolerated 15ml/hr q4-6 hrs to goal * HOB over 30 degrees * Water flush of 100ml q 6 hrs without IVF ADDITIONAL RECOMMENDATIONS: * Calibrated bedscale wt + accurate daily weights * Monitor BGs, need for NISS: A1C 6.0 Pt will benefit from carb controlled TF formula, rec TF change as above * Wound care: f/up w/ WC eval Add YUNIOR in 4oz H2O via GT BID * Monitor lytes, replete as needed .
[2019-05-31] MEDS: Potassium Phosphate 15mm/250ml 250 ML IVPB SCH ×2 (12:22→16:38)
--- NOTE | 2019-05-31 12:28 | Nephrology Progress Note ---
Assessment/Plan Problem List: (1) Dehydration (2) Hyponatremia (3) UTI (urinary tract infection) (4) Decubitus skin ulcer (5) BPH (benign prostatic hyperplasia) (6) Severe malnutrition Assessment: With multiple decubiti Assessment Acute metabolic encephalopathy UTI Dehydration, hyponatremia improved with saline infusion Patient has Manriquez catheter and GT tube Advance dementia- bed bound, PEG dependent Depression Anemia of most likely chronic disease- stable Hx of HTN Elevated liver enzymes Plan Today's lab reviewed Potassium phosphate IV as needed Slow saline infusion Monitor electrolytes Antibiotics for UTI Parameters for blood pressure medications Avoid nephrotoxics Subjective ROS Limited/Unobtainable: No Constitutional: Reports: malaise, weakness Objective Objective Last 24 Hour Vital Signs Date Time Temp Pulse Resp B/P (MAP) Pulse Ox O2 Delivery O2 Flow Rate FiO2 05/31/19 12:00 99.0 96 20 128/70 (89) 95 05/31/19 09:08 124/70 05/31/19 09:00 Nasal Cannula 2.0 05/31/19 08:00 98.1 83 20 124/70 (88) 98 05/31/19 04:00 97.9 80 20 125/70 (88) 98 05/31/19 00:55 98.2 108/57 (74) 05/31/19 00:00 99.7 71 17 100/49 (66) 100 05/30/19 21:00 Nasal Cannula 2.0 05/30/19 20:00 97.3 81 17 102/53 (69) 98 05/30/19 16:00 100.3 93 18 92/56 (68) 96 Intake and Output 05/30/19 05/31/19 19:00 07:00 Intake Total 455 ml 570 ml Output Total 600 ml Balance -145 ml 570 ml IV Total 570 ml Tube Feeding 455 ml Output Urine Total 600 ml # Voids 2 # Bowel Movements 1 1 Laboratory Tests 05/31/19 07:33: White Blood Count 10.8, Red Blood Count 2.69L, Hemoglobin 8.1L, Hematocrit 24.0L , Mean Corpuscular Volume 89, Mean Corpuscular Hemoglobin 30.0, Mean Corpuscular Hemoglobin Concent 33.6, Red Cell Distribution Width 14.2, Platelet Count 379, Mean Platelet Volume 5.6L, Neutrophils (%) (Auto) 73.1, Lymphocytes ( %) (Auto) 17.1L, Monocytes (%) (Auto) 8.6, Eosinophils (%) (Auto) 0.7, Basophils (%) (Auto) 0.6, Sodium Level 140, Potassium Level 3.8, Chloride Level 106, Carbon Dioxide Level 20L, Anion Gap 14, Blood Urea Nitrogen 22H, Creatinine 0.7, Estimat Glomerular Filtration Rate > 60, Glucose Level 100, Uric Acid 2.9, Calcium Level 9.1, Phosphorus Level 2.2L, Magnesium Level 2.3, Total Bilirubin 0.5, Aspartate Amino Transf (AST/SGOT) 92H, Alanine Aminotransferase (ALT/SGPT) 180H, Alkaline Phosphatase 109, Total Protein 7.8, Albumin 2.5L, Globulin 5.3, Albumin/Globulin Ratio 0.5L Height (Feet): 5 Height (Inches): 6.00 Weight (Pounds): 101 General Appearance: no apparent distress, lethargic Cardiovascular: tachycardia Respiratory/Chest: decreased breath sounds Abdomen: soft Objective No change Minh Phipps MD May 31, 2019 12:28
--- NOTE | 2019-05-31 13:04 | Surgery Progress Note ---
Surgery Progress Note Subjective Additional Comments no acute events comfortable stable Objective Last 24 Hour Vital Signs Date Time Temp Pulse Resp B/P (MAP) Pulse Ox O2 Delivery O2 Flow Rate FiO2 05/31/19 12:00 99.0 96 20 128/70 (89) 95 05/31/19 09:08 124/70 05/31/19 09:00 Nasal Cannula 2.0 05/31/19 08:00 98.1 83 20 124/70 (88) 98 05/31/19 04:00 97.9 80 20 125/70 (88) 98 05/31/19 00:55 98.2 108/57 (74) 05/31/19 00:00 99.7 71 17 100/49 (66) 100 05/30/19 21:00 Nasal Cannula 2.0 05/30/19 20:00 97.3 81 17 102/53 (69) 98 05/30/19 16:00 100.3 93 18 92/56 (68) 96 I&O Intake and Output 05/30/19 05/31/19 19:00 07:00 Intake Total 455 ml 570 ml Output Total 600 ml Balance -145 ml 570 ml IV Total 570 ml Tube Feeding 455 ml Output Urine Total 600 ml # Voids 2 # Bowel Movements 1 1 Dressing: other Wound: other Drains: other Cardiovascular: RSR Respiratory: decreased breath sounds Abdomen: soft, non-tender, present bowel sounds Extremities: no cyanosis Laboratory Tests Test 05/31/19 07:33 White Blood Count 10.8 K/UL (4.8-10.8) Red Blood Count 2.69 M/UL (4.70-6.10) L Hemoglobin 8.1 G/DL (14.2-18.0) L Hematocrit 24.0 % (42.0-52.0) L Mean Corpuscular Volume 89 FL (80-99) Mean Corpuscular Hemoglobin 30.0 PG (27.0-31.0) Mean Corpuscular Hemoglobin Concent 33.6 G/DL (32.0-36.0) Red Cell Distribution Width 14.2 % (11.6-14.8) Platelet Count 379 K/UL (150-450) Mean Platelet Volume 5.6 FL (6.5-10.1) L Neutrophils (%) (Auto) 73.1 % (45.0-75.0) Lymphocytes (%) (Auto) 17.1 % (20.0-45.0) L Monocytes (%) (Auto) 8.6 % (1.0-10.0) Eosinophils (%) (Auto) 0.7 % (0.0-3.0) Basophils (%) (Auto) 0.6 % (0.0-2.0) Sodium Level 140 MMOL/L (136-145) Potassium Level 3.8 MMOL/L (3.5-5.1) Chloride Level 106 MMOL/L (98-107) Carbon Dioxide Level 20 MMOL/L (21-32) L Anion Gap 14 mmol/L (5-15) Blood Urea Nitrogen 22 mg/dL (7-18) H Creatinine 0.7 MG/DL (0.55-1.30) Estimat Glomerular Filtration Rate > 60 mL/min (>60) Glucose Level 100 MG/DL (74-106) Uric Acid 2.9 MG/DL (2.6-7.2) Calcium Level 9.1 MG/DL (8.5-10.1) Phosphorus Level 2.2 MG/DL (2.5-4.9) L Magnesium Level 2.3 MG/DL (1.8-2.4) Total Bilirubin 0.5 MG/DL (0.2-1.0) Aspartate Amino Transf (AST/SGOT) 92 U/L (15-37) H Alanine Aminotransferase (ALT/SGPT) 180 U/L (12-78) H Alkaline Phosphatase 109 U/L (46-116) Total Protein 7.8 G/DL (6.4-8.2) Albumin 2.5 G/DL (3.4-5.0) L Globulin 5.3 g/dL Albumin/Globulin Ratio 0.5 (1.0-2.7) L Plan Problems: (1) Failure to thrive syndrome, adult Assessment & Plan: cont feeds monitor labs as tolerated will continue needs close monitoring (2) Severe malnutrition Assessment & Plan: DAILY ESTIMATED NEEDS: Needs based on wasting, wounds/ 49kg 30-35 kcals/kg 6926-9280 total kcals 1.25-1.5 g protein/kg 61-74 g total protein 25-30 mL/kg 4315-4309 total fluid mLs NUTRITION DIAGNOSIS: * Swallowing difficulty R/T dysphagia as evidenced by pt is PEG dep. * Increased kcal/prot intake needs R/T wound healing and wasting as evidenced by pt admitted wounds, pending eval, noted w/ moderate generalized wasting. * Altered nutrition related lab values R/T prediabetes as evidenced by A1C of 6.0. CURRENT TF:Jevity 1.2 @ 65ml/hr x 20 hrs ENTERAL NUTRITION RECOMMENDATIONS: TF CHANGE-> Glucerna 1.2 @ 55ml/hr x 24 hrs to provide 1320ml, 1584kcal, 79g prot, 1063ml free water * REC TF CHANGE TO GLUCERNA 1.2- A1C of 6.0 * Start @25ml/hr, advance as tolerated 15ml/hr q4-6 hrs to goal * HOB over 30 degrees * Water flush of 100ml q 6 hrs without IVF ADDITIONAL RECOMMENDATIONS: * Calibrated bedscale wt * Monitor BGs, need for NISS: A1C 6.0 Pt will benefit from carb controlled TF formula, rec TF change as above * Wound care: f/up w/ WC eval Add YUNIOR in 4oz H2O via GT BID * Monitor lytes, replete as needed (3) Decubitus skin ulcer (4) Elevated LFTs Assessment & Plan: abnormal lf'ts The liver is unremarkable. Doppler interrogation of the main portal vein shows patency with hepatopedal, monophasic flow. There is no biliary ductal dilatation identified. Gallbladder is unremarkable. There demonstrated part of the pancreas and IVC show no definite abnormalities. Aorta is calcified. There is a small echogenic focus within the right kidney which may be a nonobstructive stone. Both kidneys appear unremarkable otherwise. There is no hydronephrosis. IMPRESSION: No acute findings Atherosclerotic disease. Possible stone in the right kidney likely med related trend will follow with recs thank you Reji Guy May 31, 2019 13:04
--- NOTE | 2019-05-31 13:52 | General Progress Note ---
Assessment/Plan Status: stable Assessment/Plan: 73 year old man with history of advanced dementia (bedbound, nonverbal, PEG dependent at baseline), dysphagia s/p PEG, HTN, depression, anemia of chronic disease, depression, and bilateral pressure ulcers in heels who presented from rehab facility with fever and hematuria #Sepsis, present on admission #Serratia and Pseudomonas acute cystitis, possible pyelonephritis #Hematuria #Pyuria #Elevated CRP, improved -continue inpatient level of care -cont vanco and meropenem, will discuss with ID -Surgery eval appreciated, no appearance of acute wound infection #Acute on chronic anemia -likely sepsis related BM suppression -cont to monitor CBC #Dehydration #Hyponatremia, resolved -continue IV saline -Nephrology following #Hx of HTN -cont lisinopril #Advance dementia- bed bound, PEG dependent #Functional quadriplegia #Depression #Anemia of chronic disease- stable vte ppx: heparin sc code: full code, POLST reviewed I spent 35 minutes during this encounter, >50% spent on counselling and care coordination. Subjective Date patient seen: May 31, 2019 Time patient seen: 13:00 ROS Limited/Unobtainable: Yes Allergies: Coded Allergies: No Known Allergies (Unverified , 08/20/18) Subjective Follow up for sepsis, serratia and pseudomonas UTI, possible pyelo, hyponatremia Febrile again on 05/28, started on vanco Objective Last 24 Hour Vital Signs Date Time Temp Pulse Resp B/P (MAP) Pulse Ox O2 Delivery O2 Flow Rate FiO2 05/31/19 12:00 99.0 96 20 128/70 (89) 95 05/31/19 09:08 124/70 05/31/19 09:00 Nasal Cannula 2.0 05/31/19 08:00 98.1 83 20 124/70 (88) 98 05/31/19 04:00 97.9 80 20 125/70 (88) 98 05/31/19 00:55 98.2 108/57 (74) 05/31/19 00:00 99.7 71 17 100/49 (66) 100 05/30/19 21:00 Nasal Cannula 2.0 05/30/19 20:00 97.3 81 17 102/53 (69) 98 05/30/19 16:00 100.3 93 18 92/56 (68) 96 Intake and Output 05/30/19 05/31/19 19:00 07:00 Intake Total 455 ml 570 ml Output Total 600 ml Balance -145 ml 570 ml IV Total 570 ml Tube Feeding 455 ml Output Urine Total 600 ml # Voids 2 # Bowel Movements 1 1 Laboratory Tests 05/31/19 07:33: White Blood Count 10.8, Red Blood Count 2.69L, Hemoglobin 8.1L, Hematocrit 24.0L , Mean Corpuscular Volume 89, Mean Corpuscular Hemoglobin 30.0, Mean Corpuscular Hemoglobin Concent 33.6, Red Cell Distribution Width 14.2, Platelet Count 379, Mean Platelet Volume 5.6L, Neutrophils (%) (Auto) 73.1, Lymphocytes ( %) (Auto) 17.1L, Monocytes (%) (Auto) 8.6, Eosinophils (%) (Auto) 0.7, Basophils (%) (Auto) 0.6, Sodium Level 140, Potassium Level 3.8, Chloride Level 106, Carbon Dioxide Level 20L, Anion Gap 14, Blood Urea Nitrogen 22H, Creatinine 0.7, Estimat Glomerular Filtration Rate > 60, Glucose Level 100, Uric Acid 2.9, Calcium Level 9.1, Phosphorus Level 2.2L, Magnesium Level 2.3, Total Bilirubin 0.5, Aspartate Amino Transf (AST/SGOT) 92H, Alanine Aminotransferase (ALT/SGPT) 180H, Alkaline Phosphatase 109, Total Protein 7.8, Albumin 2.5L, Globulin 5.3, Albumin/Globulin Ratio 0.5L Height (Feet): 5 Height (Inches): 6.00 Weight (Pounds): 101 General Appearance: lethargic, confused Cardiovascular: normal rate, regular rhythm Respiratory/Chest: lungs clear, normal breath sounds Abdomen: non tender, soft Wei Neves MD May 31, 2019 13:52
--- NOTE | 2019-05-31 17:44 | Infectious Diseases Prog Note ---
Assessment/Plan Assessment/Plan ASSESSMENT AND PLAN: 1. pseudomonas uti/MDR serratia uti, sepsis, fevers, leukocytosis recurrent fevers - ? new infection, ? aspiration pna/hcap vs atx - meropenem - day # 7/10 - discontinue vancomycin with negative blood cultures - mrsa screen negative - less likely mrsa pna - monitor labs, chest x-ray and temperatures - d/w Dr. Martinez 2. Chest x-ray with atelectasis. 3. Anemia. 4. Hypernatremia. 5. Hypertension. 6. Hypertensive heart disease. 7. History of UTI, pneumonia. 8. Hypertension treatment per primary care team and Nephrology. 9. Wound care protocol. 10. COPD. 11. Dementia. 12. History of failure to thrive. 13. Dysphagia, G-tube. 14. History of hyperkalemia. 15. Continue treatment per primary consultants. 16. No known allergies. 17. Social history negative. 18. Family history is noncontributory. 19. MAR was noted. 20. Case discussed with RN. 21. Orders were noted and entered. 22. d/w primary care team Subjective Constitutional: Reports: fatigue HEENT: Denies: hearing change Cardiovascular: Denies: chest pain Gastrointestinal/Abdominal: Denies: nausea, vomiting, diarrhea Genitourinary: Reports: other - + duggan Neurologic: Reports: weakness, other - non-verbal Psychiatric: Reports: other - NA Skin: Denies: rash Hematologic: Denies: bleeding Musculoskeletal: Reports: other - NA Allergies: Coded Allergies: No Known Allergies (Unverified , 08/20/18) Objective Vital Signs Last 24 Hour Vital Signs Date Time Temp Pulse Resp B/P (MAP) Pulse Ox O2 Delivery O2 Flow Rate FiO2 05/31/19 16:00 99.3 107 20 148/84 (105) 98 05/31/19 12:00 99.0 96 20 128/70 (89) 95 05/31/19 09:08 124/70 05/31/19 09:00 Nasal Cannula 2.0 05/31/19 08:00 98.1 83 20 124/70 (88) 98 05/31/19 04:00 97.9 80 20 125/70 (88) 98 05/31/19 00:55 98.2 108/57 (74) 05/31/19 00:00 99.7 71 17 100/49 (66) 100 05/30/19 21:00 Nasal Cannula 2.0 05/30/19 20:00 97.3 81 17 102/53 (69) 98 Height (Feet): 5 Height (Inches): 6.00 Weight (Pounds): 101 General Appearance: no acute distress HEENT: normocephalic, atraumatic, anicteric, mucous membranes moist Respiratory/Chest: crackles/rales, rhonchi - bilaterally Cardiovascular: normal rate, regular rhythm, no gallop/murmur, no JVD Abdomen: normal bowel sounds, soft, non tender, no organomegaly, non distended Genitourinary: other - + duggan - urine slt cloudy Extremities: no cyanosis Skin: no rash Neurologic/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 Findings: There is suggestion of mild basal atelectasis. No infiltrate seen. The evaluation is limited by severe rotation. Heart size is probably normal. Bones are osteopenic. IMPRESSION: Suspected mild basal atelectasis. Chest x-ray - 05/29/19 - IMPRESSION: 1. Mildly increased interstitial markings. This is likely related to chronic senescent changes although differential diagnosis may also include mild bronchitis or interstitial pneumonitis. 2. Subsegmental atelectasis versus infiltrate in the medial right lung base. Microbiology Date/Time Source Procedure Growth Status 05/28/19 23:07 Blood Blood Culture - Preliminary NO GROWTH AFTER 48 HOURS Resulted 05/28/19 22:45 Blood Blood Culture - Preliminary NO GROWTH AFTER 48 HOURS Resulted 05/29/19 04:00 Indwelling Cath Urine Culture - Preliminary NO GROWTH AFTER 24 HOURS Resulted Laboratory Tests Test 05/31/19 07:33 White Blood Count 10.8 K/UL (4.8-10.8) Red Blood Count 2.69 M/UL (4.70-6.10) L Hemoglobin 8.1 G/DL (14.2-18.0) L Hematocrit 24.0 % (42.0-52.0) L Mean Corpuscular Volume 89 FL (80-99) Mean Corpuscular Hemoglobin 30.0 PG (27.0-31.0) Mean Corpuscular Hemoglobin Concent 33.6 G/DL (32.0-36.0) Red Cell Distribution Width 14.2 % (11.6-14.8) Platelet Count 379 K/UL (150-450) Mean Platelet Volume 5.6 FL (6.5-10.1) L Neutrophils (%) (Auto) 73.1 % (45.0-75.0) Lymphocytes (%) (Auto) 17.1 % (20.0-45.0) L Monocytes (%) (Auto) 8.6 % (1.0-10.0) Eosinophils (%) (Auto) 0.7 % (0.0-3.0) Basophils (%) (Auto) 0.6 % (0.0-2.0) Sodium Level 140 MMOL/L (136-145) Potassium Level 3.8 MMOL/L (3.5-5.1) Chloride Level 106 MMOL/L (98-107) Carbon Dioxide Level 20 MMOL/L (21-32) L Anion Gap 14 mmol/L (5-15) Blood Urea Nitrogen 22 mg/dL (7-18) H Creatinine 0.7 MG/DL (0.55-1.30) Estimat Glomerular Filtration Rate > 60 mL/min (>60) Glucose Level 100 MG/DL (74-106) Uric Acid 2.9 MG/DL (2.6-7.2) Calcium Level 9.1 MG/DL (8.5-10.1) Phosphorus Level 2.2 MG/DL (2.5-4.9) L Magnesium Level 2.3 MG/DL (1.8-2.4) Total Bilirubin 0.5 MG/DL (0.2-1.0) Aspartate Amino Transf (AST/SGOT) 92 U/L (15-37) H Alanine Aminotransferase (ALT/SGPT) 180 U/L (12-78) H Alkaline Phosphatase 109 U/L (46-116) Total Protein 7.8 G/DL (6.4-8.2) Albumin 2.5 G/DL (3.4-5.0) L Globulin 5.3 g/dL Albumin/Globulin Ratio 0.5 (1.0-2.7) L Current Medications Medications (Trade) Dose Ordered Sig/Altagracia Route PRN Reason Start Time Stop Time Status Last Admin Dose Admin Acetaminophen (Tylenol) 650 mg Q4H PRN GT Mild Pain/Temp > 100.5 05/23/19 11:15 06/22/19 11:14 05/29/19 22:41 Dextrose (Dextrose 50%) 25 ml Q30M PRN IV Hypoglycemia 05/23/19 08:15 06/22/19 08:14 Dextrose (Dextrose 50%) 50 ml Q30M PRN IV Hypoglycemia 05/23/19 08:15 06/22/19 08:14 Heparin Sodium (Porcine) (Heparin 5000 units/ml) 5,000 units EVERY 12 HOURS SUBQ 05/23/19 09:00 06/22/19 08:59 05/31/19 09:09 Hydralazine HCl (Apresoline) 25 mg Q4H PRN GT SBP > 160 05/23/19 18:15 06/22/19 18:14 Lisinopril (PriniviL) 10 mg DAILY GT 05/24/19 09:00 06/22/19 08:59 05/31/19 09:08 Meropenem 500 mg/ Sodium Chloride 55 ml @ 110 mls/hr Q8H IVPB 05/30/19 18:00 06/04/19 01:59 05/31/19 10:36 Potassium Phosphate 250 ml @ 62.5 mls/hr Q4H IVPB 05/31/19 12:00 05/31/19 19:59 05/31/19 16:38 Sodium Chloride 1,000 ml @ 50 mls/hr Q20H IV 05/23/19 18:15 06/22/19 18:14 05/31/19 05:44 Thiamine HCl (Vitamin B1) 100 mg DAILY GT 05/23/19 09:00 06/22/19 08:59 05/31/19 09:08 Vancomycin HCl (Vanco rx to dose) 1 ea DAILY PRN MISC Per rx protocol 05/28/19 22:45 06/27/19 22:44 Vancomycin HCl 500 mg/Dextrose 110 ml @ 110 mls/hr Q24H IVPB 05/29/19 23:00 06/03/19 22:59 05/30/19 23:06 Bonny Rincon MD May 31, 2019 17:44
[2019-05-31] MEDS: Acetaminophen 650mg/20.3ml GT PRN (18:02)
--- NOTE | 2019-05-31 19:23 | NUR ---
HAND-OFF: Report given to Nany and endorsed plan of care.
--- NOTE | 2019-05-31 20:04 | NUR ---
NURSE NOTES: Received patient asleep, comfortable, tolerating well his g-tube feeding.
[2019-06-01] VITALS: BP 93/53
[2019-06-01] MEDS: Meropenem 500mg in NS 55ml IVPB SCH ×2 (02:00→10:27)
[2019-06-01 04:00] VITALS: BP 101/62
--- NOTE | 2019-06-01 07:20 | NUR ---
HAND-OFF: Report given to Trice Ortiz RN.
--- NOTE | 2019-06-01 07:21 | NUR ---
NURSE NOTES: Patient alert x1, non verbal; on Nasal cannula 2 Liters, no sing of shortness of breath; no sign of distress; no sing of chest pain; IV Right For-Arm 22G NS 50cc running; Jevity 1.2 running 65cc, no residual; head of the bed elevated, side rails up x2, breaks engaged, bed at lowest position; Manriquez in place drains yellow urine; dressings dry and intact; call light within reach; will keep monitoring.
[2019-06-01 08:00] VITALS: BP 107/59
[2019-06-01] MEDS: Thiamine 100mg tab GT SCH (08:30)
[2019-06-01] MEDS: Lisinopril 20mg tab GT SCH (08:30)
[2019-06-01] MEDS: Heparin 5000 units/ml inj SUBQ SCH (08:31)
[2019-06-01] MEDS ORDERED: MEROPENEM-1 GM/50 ML IV (10:35)
--- NOTE | 2019-06-01 10:54 | Discharge Summary ---
Discharge Summary Hospital Course Date of Admission May 23, 2019 at 04:18 Date of Discharge 06/01/19 Admitting Diagnosis sepsis, uti HPI Cliff Saldana is a 73 year old male who was admitted on May 23, 2019 at 04 :18 for Sepsis/Urinary Tract Infection Consultations ID, Nephrology, Psychiatry Procedures None Hospital Course 73 year old man with history of advanced dementia (bedbound, nonverbal, PEG dependent at baseline), dysphagia s/p PEG, HTN, depression, anemia of chronic disease, depression, and bilateral pressure ulcers in heels who presented from rehab facility with fever and hematuria, admitted to the medical service with sepsis due to acute cystitis, started on ertapenem with improvement in fevers. Urine cultures grew serration and Pseudomonas. Per ID recs he will complete 10 days of antibiotic therapy on 06.01, will complete 1 more day of meropenem at SNF via peripheral IV. Discharge Diagnoses: #Sepsis, present on admission #Serratia and Pseudomonas acute cystitis, possible pyelonephritis #Hematuria #Pyuria #Elevated CRP, improved #Acute on chronic anemia #Dehydration #Hyponatremia, resolved #Hx of HTN #Advance dementia- bed bound, PEG dependent #Functional quadriplegia #Depression I spent 35 minutes in preparing this discharge which included coordination with RN, case specialist, consulting MD, discussing with accepting SNF MD Discharge Medications New Medications: Meropenem-0.9% Sodium Chloride (Meropenem-0.9% NaCl 1 Gram/50) 1 Gm/50 Ml Piggyback 1 GM IV BID for 1 Day, BAG Continued Medications: Acetaminophen* (Acetaminophen 325MG Tablet*) 325 Mg Tablet 650 MG GT Q6H PRN for Mild Pain/Temp > 100.5, TAB Amino Acids/Protein Hydrolys (Pro-Stat Liquid) 30 Ml Liquid.pkt 30 ML GT DAILY for WOUND HEALING , ML (This prescription has been renewed) Chlorpromazine (Chlorpromazine HCl) 25 Mg Tablet 25 MG GT EVERY 8 HOURS PRN for HICCUPS, TAB (This prescription has been renewed) Cholecalciferol (Vitamin D3) (Vitamin D3) 3,000 Unit Tablet 800 UNIT GT TID for VITAMIN D DEFICIENCY, TAB (This prescription has been renewed) Cyanocobalamin (Vitamin B-12) (Vitamin B-12) 1,000 Mcg Tablet 1000 MCG GT DAILY for SUPPLEMENT, TAB Ergocalciferol (Vitamin D2)* (Vitamin D*) 50,000 Unit Capsule 01399 UNIT GT ONCE A WEEK for SUPPLEMENT , CAP TAKE 50,000 UNITS VIA G-TUBE EVERY THURSDAY Finasteride* (Proscar*) 5 Mg Tablet 5 MG GT DAILY for BPH, TAB 0 Refills (This prescription has been renewed) Hydralazine Hcl* (Hydralazine Hcl*) 25 Mg Tablet 25 MG GT EVERY 6 HOURS PRN for SBP > 160, TAB 0 Refills (This prescription has been renewed) Ipratropium/Albuterol Sulfate (Iprat-Albut 0.5-3(2.5) Mg/3 Ml) 3 Ml Ampul.neb 3 ML IH Q6HR PRN for Shortness of Breath, EA PRN DYSPNEA Lisinopril* (Lisinopril*) 10 Mg Tablet 10 MG GT DAILY, TAB (This prescription has been renewed) Ondansetron* (Zofran*) 4 Mg Tablet 4 MG GT Q6H PRN for Nausea & Vomiting, TAB (This prescription has been renewed) Pantoprazole Sodium (Protonix) 40 Mg Granpkt.dr 40 MG GT DAILY for 60 Days, PKT Potassium Chloride (K-Tab ER) 20 Meq Tablet.er 20 MEQ GT DAILY for HYPOKALEMIA, TAB (This prescription has been renewed) Tamsulosin HCl (Flomax) 0.4 Mg Cap.er.24h 0.4 MG GT DAILY for BPH, CAP (This prescription has been renewed) Thiamine Hcl* (Vitamin B-1*) 100 Mg Tablet 100 MG GT DAILY, #30 TAB 0 Refills Tramadol Hcl* (Ultram*) 50 Mg Tablet 50 MG GT DAILY PRN for For Pain, #10 TAB 0 Refills Discharge Condition Upon Discharge: improving Discharge Vital Signs Last Vital Signs Date Time Temp Pulse Resp B/P (MAP) Pulse Ox O2 Delivery O2 Flow Rate FiO2 06/01/19 09:00 Nasal Cannula 2.0 06/01/19 08:00 98.1 74 19 107/59 (75) 100 05/28/19 19:29 28 Discharge Disposition Patient was discharged to SNF Discharge Diagnoses: (1) UTI (urinary tract infection) (2) Sepsis (3) Dehydration (4) Hyponatremia Wei Neves MD Jun 01, 2019 10:54
--- NOTE | 2019-06-01 11:17 | NUR ---
NURSE NOTES: I received an order to remove Manriquez upon discharge.
--- NOTE | 2019-06-01 11:40 | NUR ---
CUT OFF MAN NOTE DISCHARGED ORDER RECEIVED. CALL MADE TO [facility] [address], CONFIRMED ROOM ASSIGNMENT OF [facility] SKILLED BLS AMBULANCE TRANSPORTATION SCHEDULED W/[address] WITH ETA @ 1330 PER DEANA
[2019-06-01 12:00] VITALS: BP 118/58
--- NOTE | 2019-06-01 13:18 | Surgery Progress Note ---
Surgery Progress Note Subjective Symptoms: improved, tolerating diet, passing flatus Additional Comments patient much improved awake, alert responsive holding conversation now tolerating tube feeds no n/v/f/c Objective Last 24 Hour Vital Signs Date Time Temp Pulse Resp B/P (MAP) Pulse Ox O2 Delivery O2 Flow Rate FiO2 06/01/19 09:00 Nasal Cannula 2.0 06/01/19 08:00 98.1 74 19 107/59 (75) 100 06/01/19 04:00 98.9 93 16 101/62 (75) 96 06/01/19 00:00 98.9 92 16 93/53 (66) 90 05/31/19 20:20 Nasal Cannula 2.0 05/31/19 19:58 98.6 90 16 109/57 (74) 96 05/31/19 16:00 99.3 107 20 148/84 (105) 98 I&O Intake and Output 05/31/19 06/01/19 19:00 07:00 Intake Total 1510.0 ml 960.0 ml Balance 1510.0 ml 960.0 ml Intake Free Water 110 ml 60 ml IV Total 685.0 ml 575.0 ml Tube Feeding 715 ml 325 ml # Bowel Movements 2 Dressing: saturated Wound: other Drains: other Cardiovascular: RSR Respiratory: decreased breath sounds Abdomen: soft, non-tender, present bowel sounds Extremities: no edema, no tenderness, no cyanosis Plan Problems: (1) Failure to thrive syndrome, adult Assessment & Plan: cont feeds monitor labs as tolerated will continue needs close monitoring (2) Severe malnutrition Assessment & Plan: DAILY ESTIMATED NEEDS: Needs based on wasting, wounds/ 49kg 30-35 kcals/kg 5846-8959 total kcals 1.25-1.5 g protein/kg 61-74 g total protein 25-30 mL/kg 8361-6802 total fluid mLs NUTRITION DIAGNOSIS: * Swallowing difficulty R/T dysphagia as evidenced by pt is PEG dep. * Increased kcal/prot intake needs R/T wound healing and wasting as evidenced by pt admitted wounds, pending eval, noted w/ moderate generalized wasting. * Altered nutrition related lab values R/T prediabetes as evidenced by A1C of 6.0. CURRENT TF:Jevity 1.2 @ 65ml/hr x 20 hrs ENTERAL NUTRITION RECOMMENDATIONS: TF CHANGE-> Glucerna 1.2 @ 55ml/hr x 24 hrs to provide 1320ml, 1584kcal, 79g prot, 1063ml free water * REC TF CHANGE TO GLUCERNA 1.2- A1C of 6.0 * Start @25ml/hr, advance as tolerated 15ml/hr q4-6 hrs to goal * HOB over 30 degrees * Water flush of 100ml q 6 hrs without IVF ADDITIONAL RECOMMENDATIONS: * Calibrated bedscale wt * Monitor BGs, need for NISS: A1C 6.0 Pt will benefit from carb controlled TF formula, rec TF change as above * Wound care: f/up w/ WC eval Add YUNIOR in 4oz H2O via GT BID * Monitor lytes, replete as needed (3) Decubitus skin ulcer (4) Elevated LFTs Assessment & Plan: abnormal lf'ts The liver is unremarkable. Doppler interrogation of the main portal vein shows patency with hepatopedal, monophasic flow. There is no biliary ductal dilatation identified. Gallbladder is unremarkable. There demonstrated part of the pancreas and IVC show no definite abnormalities. Aorta is calcified. There is a small echogenic focus within the right kidney which may be a nonobstructive stone. Both kidneys appear unremarkable otherwise. There is no hydronephrosis. IMPRESSION: No acute findings Atherosclerotic disease. Possible stone in the right kidney improved not krishna no acute surgery planned denies abd pain exam benign now likely med related trend will follow with recs thank you Reji Guy Jun 01, 2019 13:18
--- NOTE | 2019-06-01 13:25 | Nephrology Progress Note ---
Assessment/Plan Problem List: (1) Dehydration (2) Hyponatremia (3) UTI (urinary tract infection) (4) Decubitus skin ulcer (5) BPH (benign prostatic hyperplasia) (6) Severe malnutrition Assessment: With multiple decubiti Assessment Acute metabolic encephalopathy UTI Dehydration, hyponatremia improved with saline infusion Patient has Manriquez catheter and GT tube Advance dementia- bed bound, PEG dependent Depression Anemia of most likely chronic disease- stable Hx of HTN Elevated liver enzymes Plan No labs today Stable for discharge from renal standpoint of view Previously Potassium phosphate IV as needed Slow saline infusion Monitor electrolytes Antibiotics for UTI Parameters for blood pressure medications Avoid nephrotoxics Subjective ROS Limited/Unobtainable: No Constitutional: Reports: malaise, weakness Objective Objective Last 24 Hour Vital Signs Date Time Temp Pulse Resp B/P (MAP) Pulse Ox O2 Delivery O2 Flow Rate FiO2 06/01/19 12:00 98.7 85 19 118/58 (78) 100 06/01/19 09:00 Nasal Cannula 2.0 06/01/19 08:00 98.1 74 19 107/59 (75) 100 06/01/19 04:00 98.9 93 16 101/62 (75) 96 06/01/19 00:00 98.9 92 16 93/53 (66) 90 05/31/19 20:20 Nasal Cannula 2.0 05/31/19 19:58 98.6 90 16 109/57 (74) 96 05/31/19 16:00 99.3 107 20 148/84 (105) 98 Intake and Output 05/31/19 06/01/19 19:00 07:00 Intake Total 1510.0 ml 960.0 ml Balance 1510.0 ml 960.0 ml Intake Free Water 110 ml 60 ml IV Total 685.0 ml 575.0 ml Tube Feeding 715 ml 325 ml # Bowel Movements 2 Current Medications Medications (Trade) Dose Ordered Sig/Altagracia Route PRN Reason Start Time Stop Time Status Last Admin Dose Admin Acetaminophen (Tylenol) 650 mg Q4H PRN GT Mild Pain/Temp > 100.5 05/23/19 11:15 06/22/19 11:14 05/31/19 18:02 Dextrose (Dextrose 50%) 25 ml Q30M PRN IV Hypoglycemia 05/23/19 08:15 06/22/19 08:14 Dextrose (Dextrose 50%) 50 ml Q30M PRN IV Hypoglycemia 05/23/19 08:15 06/22/19 08:14 Heparin Sodium (Porcine) (Heparin 5000 units/ml) 5,000 units EVERY 12 HOURS SUBQ 05/23/19 09:00 06/22/19 08:59 06/01/19 08:31 Hydralazine HCl (Apresoline) 25 mg Q4H PRN GT SBP > 160 05/23/19 18:15 06/22/19 18:14 Lisinopril (PriniviL) 10 mg DAILY GT 05/24/19 09:00 06/22/19 08:59 05/31/19 09:08 Meropenem 500 mg/ Sodium Chloride 55 ml @ 110 mls/hr Q8H IVPB 05/30/19 18:00 06/04/19 01:59 06/01/19 10:27 Sodium Chloride 1,000 ml @ 50 mls/hr Q20H IV 05/23/19 18:15 06/22/19 18:14 05/31/19 05:44 Thiamine HCl (Vitamin B1) 100 mg DAILY GT 05/23/19 09:00 06/22/19 08:59 06/01/19 08:30 Height (Feet): 5 Height (Inches): 6.00 Weight (Pounds): 128 General Appearance: no apparent distress Cardiovascular: normal rate Respiratory/Chest: lungs clear Abdomen: soft Objective No change Minh Phipps MD Jun 01, 2019 13:25
[2019-06-01] MEDS ORDERED: Tubing IV Secondary IV ONE (14:13)
--- NOTE | 2019-06-01 15:10 | NUR ---
NURSE NOTES: Patient discharged to [facility]; report given to ANTOINETTE Hewitt at the facility; patient left the floor with two [facility] personnel; Manriquez removed upon discharged; IV access kept per MD Clark order; wound care provided and pictures taken; patient doesn't have belongings and unable to sign the belonging list; patient stable upon discharge; message left for patient's next of kin, Deidre Gibbs at [phone]; dressing on T-tube changed upon discharge; patient was stable upon discharge.
--- NOTE | 2019-06-01 15:11 | Diagnostic Imaging Report ---
Indication: Dyspnea Comparison: 05/29/2019 A single view chest radiograph was obtained. Findings: Suspected infiltrate at the right lung base demonstrated. There are also reticular densities in the perihilar region of the right lung. Heart is normal size. Bones are osteopenic. IMPRESSION: Suspected infiltrate in the right lung. Correlate clinically for pneumonia
--- NOTE | 2019-06-02 01:15 | Progress Note ---
DATE: 06/01/2019 SUBJECTIVE: The patient is in bed. No acute distress noted. Calm. Decreased anxiety, depressed mood, anhedonia, worthlessness, hopelessness, improving. MENTAL STATUS EXAMINATION: The patient is disoriented. Mood is depressed. Affect is constricted, congruent with mood. Thought process is linear and goal oriented. Thought content, no suicidal or homicidal ideation. ASSESSMENT: 1. Major depressive disorder r/o encephalopathy. 2. Dementia. PLAN: We will continue the current psychotropic medications. Provide the patient with reality orientation. Rob Baltazar M.D. DR: JACINTA JOB#: [id number] CC: BELEM
== END 2019-06-01 14:14 | DRG 871 ==
LOC: EDBD 02:18 → EMR 02:46 → 4E 04:18 → EDBEDREQ 05:49 → 4E 06:22
DX: A41.9 Sepsis, unspecified organism (principal); R53.2 Functional quadriplegia; G93.41 Metabolic encephalopathy; E43 Unspecified severe protein-calorie malnutrition; N30.01 Acute cystitis with hematuria; E87.1 Hypo-osmolality and hyponatremia; F03.91 Unspecified dementia, unspecified severity, with behavioral disturbance; Z43.1 Encounter for attention to gastrostomy; F10.239 Alcohol dependence with withdrawal, unspecified; J98.11 Atelectasis; E86.0 Dehydration; F03.90 Unspecified dementia, unspecified severity, without behavioral disturbance, psychotic disturbance, mood disturbance, and anxiety; I10 Essential (primary) hypertension; F32.9 Major depressive disorder, single episode, unspecified; D63.8 Anemia in other chronic diseases classified elsewhere; B96.5 Pseudomonas (aeruginosa) (mallei) (pseudomallei) as the cause of diseases classified elsewhere; B96.89 Other specified bacterial agents as the cause of diseases classified elsewhere; J44.9 Chronic obstructive pulmonary disease, unspecified; R62.7 Adult failure to thrive; R13.10 Dysphagia, unspecified; I11.9 Hypertensive heart disease without heart failure; L89.629 Pressure ulcer of left heel, unspecified stage; L89.619 Pressure ulcer of right heel, unspecified stage; N40.0 Benign prostatic hyperplasia without lower urinary tract symptoms
CPT/HCPCS: 36415; 71045; 76700; 80048; 80053; 80061; 81001; 81003; 82550; 82553; 82607; 82728; 82746; 82977; 83036; 83540; 83550; 83605; 83735; 83880; 84100; 84443; 84484; 84550; 85007; 85025; 85610; 85730; 86140; 87040; 87081; 87086; 87181; 93005; 94640; 94664; 96365; 99285; J7030; J7620

== ENCOUNTER 2019-07-17 08:41 | Inpatient (IN) | payer MEDICARE, OTHER ==
[~2019-07-17] VITALS: Ht 165.1 cm; Wt 59.9 kg
[~2019-07-17 08:41] MED LIST changes: +K-TAB ER20 MEQ GT; +MEROPENEM-1 GM/50 ML IV; +VITAMIN D33000 UNI1 GT
--- NOTE | 2019-07-17 08:49 | Emergency Room Report ---
History of Present Illness General Chief Complaint: Gastrointestinal Bleed Source: EMS Present Illness HPI Patient presents with reports of vomiting And the emesis involving coffee-ground material Patient himself is chronically debilitated nonverbal Patient had recent hospitalization with sepsis and UTI History of present illness is significantly limited There was no reports of diarrhea unknown regarding fever Patient is reported to be in the noncovid section of the nursing facility Allergies: Coded Allergies: No Known Allergies (Unverified , 08/20/18) COVID-19 Screening Contact w/high risk pt: No Recent Travel to affected area: No Experienced COVID-19 symptoms?: No Patient History Limited by: medical condition Past Medical History: see triage record Reviewed Nursing Documentation: PMH: Agreed; PSxH: Agreed Nursing Documentation-PMH Hx Cardiac Problems: Yes Hx Hypertension: Yes Hx COPD: Yes Hx Cancer: No Hx Neurological Problems: Yes Hx Cerebrovascular Accident: Yes Hx Dementia: Yes Hx Dysphasia: Yes Hx Weakness: Yes - generalized Review of Systems All Other Systems: limited - Other than the ones mentioned in the history of present illness all others are reviewed however they do stay limited due to the patient's mental status Physical Exam Vital Signs Date Time Temp Pulse Resp B/P (MAP) Pulse Ox O2 Delivery O2 Flow Rate FiO2 07/17/19 08:36 99.7 124 22 133/71 (91) 96 Room Air Sp02 EP Interpretation: reviewed, normal General Appearance: no apparent distress - However appears chronically debilitated Head: normocephalic, atraumatic Eyes: bilateral eye PERRL ENT: dry mucus membranes Neck: supple Respiratory: no respiratory distress, no retraction, crackles - Both lower lobes Cardiovascular #1: tachycardia Gastrointestinal: non tender, soft, other - Feeding tube in place Musculoskeletal: other - Chronically debilitated with both lower extremities flexed Neurologic: responsive - To physical stimuli Skin: other - Bilateral decubitus ulcers Lymphatic: no adenopathy Procedures Critical Care Time Critical Care Time 50 minutes for multiple re-evaluations critical presentation concerning for acute decompensation and possible not including procedural time Medical Decision Making Diagnostic Impression: Primary Impression: Gastrointestinal hemorrhage Additional Impressions: Suspected COVID-19 virus infection Pneumonia ER Course Multiple differentials including but not limited to GI bleed, infectious process covid-19 entertained, Patient blood work reveals elevated white blood cell count x-ray does show right -sided infiltrate patient will have further inpatient testing IV antibiotics and fluids are initiated And patient admitted in serious condition Labs Test 07/17/19 08:46 07/17/19 08:50 07/17/19 10:05 Urine Color Pale yellow Urine Appearance Clear Urine pH 8 (4.5-8.0) Urine Specific Goodell 1.010 (1.005-1.035) Urine Protein 2+ (NEGATIVE) Urine Glucose (UA) Negative (NEGATIVE) Urine Ketones Negative (NEGATIVE) Urine Blood Negative (NEGATIVE) Urine Nitrite Negative (NEGATIVE) Urine Bilirubin Negative (NEGATIVE) Urine Urobilinogen Normal MG/DL (0.0-1.0) Urine Leukocyte Esterase Negative (NEGATIVE) Urine RBC 0 /HPF (0 - 0) Urine WBC 0-2 /HPF (0 - 0) Urine Squamous Epithelial Cells None /LPF (NONE/OCC) Urine Bacteria Few /HPF (NONE) White Blood Count 18.7 K/UL (4.8-10.8) Red Blood Count 3.26 M/UL (4.70-6.10) Hemoglobin 9.9 G/DL (14.2-18.0) Hematocrit 29.4 % (42.0-52.0) Mean Corpuscular Volume 90 FL (80-99) Mean Corpuscular Hemoglobin 30.3 PG (27.0-31.0) Mean Corpuscular Hemoglobin Concent 33.6 G/DL (32.0-36.0) Red Cell Distribution Width 14.1 % (11.6-14.8) Platelet Count 435 K/UL (150-450) Mean Platelet Volume 6.0 FL (6.5-10.1) Neutrophils (%) (Auto) % (45.0-75.0) Lymphocytes (%) (Auto) % (20.0-45.0) Monocytes (%) (Auto) % (1.0-10.0) Eosinophils (%) (Auto) % (0.0-3.0) Basophils (%) (Auto) % (0.0-2.0) Differential Total Cells Counted 100 Neutrophils % (Manual) 89 % (45-75) Lymphocytes % (Manual) 6 % (20-45) Monocytes % (Manual) 5 % (1-10) Eosinophils % (Manual) 0 % (0-3) Basophils % (Manual) 0 % (0-2) Band Neutrophils 0 % (0-8) Platelet Estimate Adequate Platelet Morphology Normal Red Blood Cell Morphology Normal Prothrombin Time 10.9 SEC (9.30-11.50) Prothromb Time International Ratio 1.0 (0.9-1.1) Activated Partial Thromboplast Time 29 SEC (23-33) Sodium Level 137 MMOL/L (136-145) Potassium Level 4.4 MMOL/L (3.5-5.1) Chloride Level 100 MMOL/L (98-107) Carbon Dioxide Level 27 MMOL/L (21-32) Anion Gap 11 mmol/L (5-15) Blood Urea Nitrogen 47 mg/dL (7-18) Creatinine 1.1 MG/DL (0.55-1.30) Estimat Glomerular Filtration Rate > 60 mL/min (>60) Glucose Level 117 MG/DL (74-106) Lactic Acid Level 2.70 mmol/L (0.4-2.0) 1.90 mmol/L (0.66-2.22) Calcium Level 10.0 MG/DL (8.5-10.1) Total Bilirubin 0.4 MG/DL (0.2-1.0) Aspartate Amino Transf (AST/SGOT) 46 U/L (15-37) Alanine Aminotransferase (ALT/SGPT) 125 U/L (12-78) Alkaline Phosphatase 144 U/L (46-116) Total Creatine Kinase 92 U/L (26-308) Troponin I 0.000 ng/mL (0.000-0.056) Total Protein 8.6 G/DL (6.4-8.2) Albumin 3.1 G/DL (3.4-5.0) Globulin 5.5 g/dL Albumin/Globulin Ratio 0.6 (1.0-2.7) Lipase 114 U/L (73-393) Rhythm Strip Diag. Results EP Interpretation: yes Rate: 90 Rhythm: NSR, no PVC's, no ectopy Chest X-Ray Diagnostic Results Chest X-Ray Diagnostic Results : Chest X-Ray Ordered: Yes # of Views/Limited/Complete: 1 View Indication: Shortness of Breath EP Interpretation: Yes Interpretation: no effusion, no pneumothorax, other - Right-sided infiltrate Impression: Other - Right-sided infiltrate Electronically Signed by: Sarah Carvajal DO Last Vital Signs Date Time Temp Pulse Resp B/P (MAP) Pulse Ox O2 Delivery O2 Flow Rate FiO2 5/3/20 08:36 99.7 124 22 133/71 (91) 96 Room Air Status: improved Disposition: ADMITTED INPATIENT Condition: Serious Sarah Carvajal DO July 17, 2019 08:49
[2019-07-17] MEDS ORDERED: [UNRECOGNIZED DRUG - OTHER] GT (08:52)
[2019-07-17] MEDS ORDERED: MULTIVITAMIN GT (08:52)
[2019-07-17] MEDS ORDERED: HEPARIN SO5000 UNIT2 SUBQ (08:52)
[2019-07-17] MEDS ORDERED: AMLODIPINE BESYL5 MG GT (08:52)
[2019-07-17] MEDS ORDERED: VITAMIN C500 M1 GT (08:55)
[2019-07-17] MEDS ORDERED: UTI-STAT L3875 MG/31 GT (08:55)
[2019-07-17] MEDS ORDERED: ZINC50 MG GT (08:56)
[2019-07-17 09:00] VITALS: BP 133/71
--- NOTE | 2019-07-17 09:00 | NUR ---
ED Nurse Note: Pt was brought in by ambulance from [facility] d/t GI bleed. Pt is alert, non-verbal, withdraws to pain. Noted with GT, intact. Pt has PMHx of COPD; per EMS pt had fever over a week ago, dx w/ PNA. Pt's on FULL CODE. Placed on bed; hooked to front desk monitor satting at 98% on 2LPM via NC. Pt noted with productive cough, rectal temp taken with 100.9F. Safety measures met. Droplet isolation prec. initiated. Will continue to monitor.
--- NOTE | 2019-07-17 09:10 | NUR ---
ED Nurse Note: Rectal temp at 100.9F; pt noted with productive cough. Arrived with GT, intact and dry.
--- NOTE | 2019-07-17 09:19 | NUR ---
ED Nurse Note: X-ray at bedside.
[2019-07-17] MEDS ORDERED: Acetaminophen 650mg/20.3ml GT ONE (09:30)
[2019-07-17 09:41] LABS: APPEARANCE,URINE CLEAR; BILIRUBIN, URINE NEGATIVE (NEGATIVE); COLOR,URINE PALE YELLOW; GLUCOSE, URINE (UA) NEGATIVE (NEGATIVE); KETONES,URINE NEGATIVE (NEGATIVE); LEUKOCYTE ESTERASE ,URINE NEGATIVE (NEGATIVE); NITRITE,URINE NEGATIVE (NEGATIVE); PH,URINE 8 (4.5-8.0); PROTEIN,URINE 2+ (NEGATIVE); UROBILINOGEN,URINE NORMAL MG/DL (0.0-1.0)
[2019-07-17 09:44] LABS: ANION GAP 11 mmol/L (5-15); BLOOD UREA NITROGEN 47 mg/dL (7-18); CARBON DIOXIDE 27 MMOL/L (21-32); CHLORIDE 100 MMOL/L (98-107); CREATININE 1.1 MG/DL (0.55-1.30); POTASSIUM 4.4 MMOL/L (3.5-5.1); SODIUM 137 MMOL/L (136-145)
--- NOTE | 2019-07-17 09:44 | NUR ---
ED Nurse Note: Tylenol 650mg given via GT, covid swabs obtained. Latest BP: 90/67 Notified ERMD, hanged second bag of NS 500 on IV; patent; intact and infusing well.
[2019-07-17 09:45] LABS: HEMATOCRIT 29.4 % (42.0-52.0); HEMOGLOBIN 9.9 G/DL (14.2-18.0); MEAN CORPUSCULAR VOLUME 90 FL (80-99); PLATELET COUNT 435 K/UL (150-450); RED BLOOD COUNT 3.26 M/UL (4.70-6.10); RED CELL DISTRIBUTION WIDTH 14.1 % (11.6-14.8); WHITE BLOOD COUNT 18.7 K/UL (4.8-10.8)
[2019-07-17] MEDS ORDERED: cefTRIAXone 1 GM in NS 55 ML IVPB ONE (09:45)
[2019-07-17] MEDS ORDERED: Azithromycin 500 MG in NS 275 ML IV ONE (09:45)
--- NOTE | 2019-07-17 09:48 | Diagnostic Imaging Report ---
EXAM: XR Chest, 1 View CLINICAL HISTORY: Chest pain TECHNIQUE: Frontal view of the chest. COMPARISON: June 01, 2019. FINDINGS: Persistent infiltrate in the right lower lobe again noted. No pleural effusions. Cardiac silhouette and pulmonary vascularity are within normal limits. Chronic scarring. No aggressive osseous abnormalities. IMPRESSION: Persistent infiltrate in right lower lobe, likely pneumonia. Recommend correlation with CT to exclude mass lesion.
[2019-07-17 09:49] LABS: ALANINE AMINOTRANSFERASE 125 U/L (12-78); ALBUMIN 3.1 G/DL (3.4-5.0); ALBUMIN/GLOBULIN RATIO 0.6 (1.0-2.7); ALKALINE PHOSPHATASE 144 U/L (46-116); ASPARTATE AMINO TRANSFERASE 46 U/L (15-37); BILIRUBIN,TOTAL 0.4 MG/DL (0.2-1.0); CREATINE KINASE 92 U/L (26-308)
--- NOTE | 2019-07-17 10:05 | NUR ---
ED Nurse Note: Lactic reflex collected; sent to labs. Noted pressure ulcers on RT foot and sacral area; pictures taken.
[2019-07-17] MEDS ORDERED: Miralax 17gm pkt ORAL PRN (10:15)
[2019-07-17] MEDS ORDERED: HydrALAZINE 25mg tab GT PRN (10:15)
[2019-07-17] MEDS ORDERED: Milk of Magnesia 30ml Ud ORAL PRN (10:15)
[2019-07-17] MEDS ORDERED: traMADol 50mg tab GT PRN (10:15)
--- NOTE | 2019-07-17 10:32 | History and Physical ---
History of Present Illness General Reason for Hospitalization: Gastrointestinal Bleed Present Illness HPI 73-year-old male with PMH of advanced dementia (bedbound, nonverbal, PEG dependent at baseline), dysphasia s/p PEG tube, COPD, HTN, depression, PVCs, GERD, functional quadriplegia, adult failure to thrive, sacral ulcer who presents from rehab facility for hematemesis. Pt is non-verbal at b/l, history obtained via chart review/medical records. Patient had 2 episodes of hematemesis at alf. Patient with BP 98/79, afebrile and 94% on 2 LNC, reported about 250 cc of hematemesis. Upon arrival patient with no further episodes of hematemesis, was noted to have temperature of 100.9 rectally, rhonchorous cough. CXR performed which showed RLL infiltrate. Patient admitted for further treatment and evaluation. PMH: advanced dementia (bedbound, nonverbal, PEG dependent at baseline), dysphasia s/p PEG tube, COPD, HTN, depression, PVCs, GERD, functional quadriplegia, adult failure to thrive, sacral ulcer FH: Unable to obtain due to clinical picture SH: Lives in alf SX: s/p peg placement Allergies: NKDA Allergies: Coded Allergies: No Known Allergies (Unverified , 08/20/18) COVID-19 Screening Contact w/high risk pt: No Recent Travel to affected area: No Experienced COVID-19 symptoms?: No Medication History Scheduled Amino Acids/Protein Hydrolys (Pro-Stat Liquid), 30 ML GT DAILY, (Reported) Amlodipine Besylate* (Amlodipine Besylate*), 5 MG GT DAILY, (Reported) Ascorbic Acid* (Vitamin C*), 500 MG GT DAILY, (Reported) Cholecalciferol (Vitamin D3) (Vitamin D3), 800 UNIT GT TID, (Reported) Cyanocobalamin (Vitamin B-12) (Vitamin B-12), 1,000 MCG GT DAILY, (Reported) Ergocalciferol (Vitamin D2)* (Vitamin D*), 50,000 UNIT GT ONCE A WEEK, (Reported ) Finasteride* (Proscar*), 5 MG GT DAILY, (Reported) Heparin Sod (Porcine) (Heparin Sodium*), 5,000 UNITS SUBQ EVERY 12 HOURS, ( Reported) Lisinopril* (Lisinopril*), 10 MG GT DAILY, (Reported) Meropenem-0.9% Sodium Chloride (Meropenem-0.9% NaCl 1 Gram/50), 1 GM IV BID Pantoprazole Sodium (Protonix), 40 MG GT DAILY Potassium Chloride (K-Tab ER), 20 MEQ GT DAILY, (Reported) Tamsulosin HCl (Flomax), 0.4 MG GT DAILY, (Reported) Thiamine Hcl* (Vitamin B-1*), 100 MG GT DAILY, (Reported) [mvi w/ vitamins], 1 TAB GT DAILY, (Reported) Scheduled PRN Acetaminophen* (Acetaminophen 325MG Tablet*), 650 MG GT Q6H PRN for Mild Pain/ Temp > 100.5, (Reported) Chlorpromazine (Chlorpromazine HCl), 25 MG GT EVERY 8 HOURS PRN for HICCUPS, ( Reported) Hydralazine Hcl* (Hydralazine Hcl*), 25 MG GT EVERY 6 HOURS PRN for SBP > 160, ( Reported) Ipratropium/Albuterol Sulfate (Iprat-Albut 0.5-3(2.5) Mg/3 Ml), 3 ML IH Q6HR PRN for Shortness of Breath, (Reported) Ondansetron* (Zofran*), 4 MG GT Q6H PRN for Nausea & Vomiting, (Reported) Pantoprazole Sodium (Protonix), 20 MG ORAL DAILY PRN for ., (Reported) Tramadol Hcl* (Ultram*), 50 MG GT DAILY PRN for For Pain, (Reported) Miscellaneous Medications Cran/Vitc/Mannose/Inulin/Brom (Uti-Stat Liquid), 3,875 MG GT, (Reported) Zinc Gluconate (Zinc), 50 MG GT, (Reported) Patient History Healthcare decision maker Resuscitation status Advanced Directive on File Review of Systems ROS Narrative Unable to obtain, patient nonverbal at baseline. Physical Exam Physical Exam Narrative General Appearance: NAD, non-verbal at b/l, awake, thin HEENT: NCAT, EOMI Neck: normal alignment, supple Respiratory/Chest: Coarse rhonchi heard throughout all lung blanco, no accessory muscle usage Cardiovascular/Chest: normal rate, regular rhythm Abdomen: non tender, soft, PEG tube in place, c/d/i Extremities: contracted b/l UE and LE, no edema appreciated Neurologic: Demented, nonverbal Musculoskeletal: atrophy Last 24 Hour Vital Signs Date Time Temp Pulse Resp B/P (MAP) Pulse Ox O2 Delivery O2 Flow Rate FiO2 07/17/19 09:00 100.9 120 22 133/71 98 Nasal Cannula 2.0 07/17/19 08:36 99.7 124 22 133/71 (91) 96 Room Air Laboratory Tests Test 07/17/19 08:46 07/17/19 08:50 07/17/19 10:05 Urine Color Pale yellow Urine Appearance Clear Urine pH 8 (4.5-8.0) Urine Specific [place] 1.010 (1.005-1.035) Urine Protein 2+ (NEGATIVE) H Urine Glucose (UA) Negative (NEGATIVE) Urine Ketones Negative (NEGATIVE) Urine Blood Negative (NEGATIVE) Urine Nitrite Negative (NEGATIVE) Urine Bilirubin Negative (NEGATIVE) Urine Urobilinogen Normal MG/DL (0.0-1.0) Urine Leukocyte Esterase Negative (NEGATIVE) Urine RBC 0 /HPF (0 - 0) Urine WBC 0-2 /HPF (0 - 0) Urine Squamous Epithelial Cells None /LPF (NONE/OCC) Urine Bacteria Few /HPF (NONE) White Blood Count 18.7 K/UL (4.8-10.8) H Red Blood Count 3.26 M/UL (4.70-6.10) L Hemoglobin 9.9 G/DL (14.2-18.0) L Hematocrit 29.4 % (42.0-52.0) L Mean Corpuscular Volume 90 FL (80-99) Mean Corpuscular Hemoglobin 30.3 PG (27.0-31.0) Mean Corpuscular Hemoglobin Concent 33.6 G/DL (32.0-36.0) Red Cell Distribution Width 14.1 % (11.6-14.8) Platelet Count 435 K/UL (150-450) Mean Platelet Volume 6.0 FL (6.5-10.1) L Neutrophils (%) (Auto) % (45.0-75.0) Lymphocytes (%) (Auto) % (20.0-45.0) Monocytes (%) (Auto) % (1.0-10.0) Eosinophils (%) (Auto) % (0.0-3.0) Basophils (%) (Auto) % (0.0-2.0) Neutrophils % (Manual) Pending Lymphocytes % (Manual) Pending Platelet Estimate Pending Platelet Morphology Pending Prothrombin Time 10.9 SEC (9.30-11.50) Prothromb Time International Ratio 1.0 (0.9-1.1) Activated Partial Thromboplast Time 29 SEC (23-33) Sodium Level 137 MMOL/L (136-145) Potassium Level 4.4 MMOL/L (3.5-5.1) Chloride Level 100 MMOL/L (98-107) Carbon Dioxide Level 27 MMOL/L (21-32) Anion Gap 11 mmol/L (5-15) Blood Urea Nitrogen 47 mg/dL (7-18) H Creatinine 1.1 MG/DL (0.55-1.30) Estimat Glomerular Filtration Rate > 60 mL/min (>60) Glucose Level 117 MG/DL (74-106) H Lactic Acid Level 2.70 mmol/L (0.4-2.0) H Pending Calcium Level 10.0 MG/DL (8.5-10.1) Total Bilirubin 0.4 MG/DL (0.2-1.0) Aspartate Amino Transf (AST/SGOT) 46 U/L (15-37) H Alanine Aminotransferase (ALT/SGPT) 125 U/L (12-78) H Alkaline Phosphatase 144 U/L (46-116) H Total Creatine Kinase 92 U/L (26-308) Troponin I 0.000 ng/mL (0.000-0.056) Total Protein 8.6 G/DL (6.4-8.2) H Albumin 3.1 G/DL (3.4-5.0) L Globulin 5.5 g/dL Albumin/Globulin Ratio 0.6 (1.0-2.7) L Lipase 114 U/L (73-393) Height (Feet): 5 Height (Inches): 10.00 Weight (Pounds): 145 Medications Current Medications Medications (Trade) Dose Ordered Sig/Altagracia Route PRN Reason Start Time Stop Time Status Last Admin Dose Admin Acetaminophen (Tylenol) 650 mg Q4H PRN ORAL Mild Pain (Pain Scale 1-3) 07/17/19 10:15 08/16/19 10:14 Acetaminophen (Tylenol) 650 mg Q4H PRN ORAL Temp >100.5 07/17/19 10:15 08/16/19 10:14 Amlodipine Besylate (Norvasc) 5 mg DAILY GT 07/18/19 09:00 08/17/19 08:59 Ascorbic Acid (Vitamin C) 500 mg DAILY GT 07/18/19 09:00 08/17/19 08:59 UNV Azithromycin 500 mg/Sodium Chloride 275 ml @ 275 mls/hr ONCE ONCE IV 07/17/19 09:45 07/17/19 10:44 07/17/19 10:04 Bisacodyl (Dulcolax) 10 mg DAILYPRN PRN RECTAL Constipation 07/17/19 10:15 10/15/19 10:14 Dextrose (Dextrose 50%) 25 ml Q30M PRN IV Hypoglycemia 07/17/19 10:15 10/15/19 10:14 Dextrose (Dextrose 50%) 50 ml Q30M PRN IV Hypoglycemia 07/17/19 10:15 10/15/19 10:14 Finasteride (Proscar) 5 mg DAILY ORAL 07/18/19 09:00 10/16/19 08:59 UNV Hydralazine HCl (Apresoline) 25 mg Q6H PRN GT SBP > 160 07/17/19 10:15 10/15/19 10:14 Lisinopril (PriniviL) 10 mg DAILY GT 07/18/19 09:00 08/17/19 08:59 Magnesium Hydroxide (Mom) 30 ml HSPRN PRN ORAL Constipation 07/17/19 10:15 08/16/19 10:14 Ondansetron HCl (Zofran) 4 mg Q6H PRN IVP Nausea & Vomiting 07/17/19 10:15 08/16/19 10:14 Pantoprazole (Protonix) 40 mg EVERY 12 HOURS IV 07/17/19 21:00 08/16/19 20:59 Polyethylene Glycol (Miralax) 17 gm DAILYPRN PRN ORAL Constipation 07/17/19 10:15 08/16/19 10:14 Potassium Chloride (K-Dur) 20 meq DAILY GT 07/18/19 09:00 10/16/19 08:59 Sodium Chloride 1,000 ml @ 999 mls/hr Q1H1M ONCE IV 07/17/19 09:45 07/17/19 10:45 07/17/19 10:04 Tamsulosin HCl (Flomax) 0.4 mg DAILY ORAL 07/18/19 09:00 08/17/19 08:59 Thiamine HCl (Vitamin B1) 100 mg DAILY GT 07/18/19 09:00 08/17/19 08:59 Tramadol HCl (Ultram) 50 mg DAILY PRN GT For Pain 07/17/19 10:15 07/24/19 10:14 Assessment/Plan Assessment/Plan: 73-year-old male with PMH of advanced dementia (bedbound, nonverbal, PEG dependent at baseline), dysphasia s/p PEG tube, COPD, HTN, depression, PVCs, GERD, functional quadriplegia, adult failure to thrive, sacral ulcer who presents from rehab facility for hematemesis. On admission pt was noted to have temperature of 100.9 rectally, rhonchorous cough. CXR performed which showed RLL infiltrate. Patient admitted for further treatment and evaluation. #Sepsis likely 2/2 #Aspiration PNA #HCAP #Suspect COVID-10 #Lactic acidosis -resolved -admit to tele -COVID-19 precautions (droplet/contact) -COVID PCR pending -CXR w/RLL infiltrate -BCx pending -ID consulted: vanc and zosyn #Hematemesis -no further episodes of hematemesis noted -Hgb stable on admission -monitor H&H -transfuse for hgb<7 -Protonix, IVF -GI consulted, recs appreciated #Transaminitis -cont. to monitor LFTs -no abd pain on palpation -GI consulted #Hx of HTN -cont lisinopril #Advance dementia- bed bound, PEG dependent #Functional quadriplegia #Depression #Anemia of chronic disease- stable -nutrition consulted for tube feeds #Sacral wound #Right foot Ulcer -Wound care consulted, recs appreciated DVT PPx: SCDs given acute bleed Time spent on encounter: 75 mins, >50% on counseling, coordination of care. Additional 35 mins spent on review of previous records, previous hospital visits , H&P, progress notes, labs and medical records from alf. Time of note doesn't reflect time of encounter. Russell Yee M.D. July 17, 2019 10:32
--- NOTE | 2019-07-17 10:40 | NUR ---
ED Nurse Note: Dr. Yee at bedside.
[2019-07-17 10:51] VITALS: BP 108/59
[2019-07-17 12:14] VITALS: BP 99/57
--- NOTE | 2019-07-17 12:15 | Infectious Diseases Prog Note ---
Assessment/Plan Assessment/Plan Full consult dictated: A) 1) possible aspiration pna/hcap, sepsis, leukocytosis 2) gib 3) rule out covid-19 virus infection P) 1) zosyn and vancomycin 2) f/u labs, cultures and chest x-ray 3) await covid-19 testing 4) d/w Dr. Yee 5) thank you Subjective Allergies: Coded Allergies: No Known Allergies (Unverified , 08/20/18) Objective Vital Signs Last 24 Hour Vital Signs Date Time Temp Pulse Resp B/P (MAP) Pulse Ox O2 Delivery O2 Flow Rate FiO2 07/17/19 10:51 100.9 104 24 108/59 98 Nasal Cannula 2.0 07/17/19 09:30 120 22 Nasal Cannula 2.0 07/17/19 09:00 100.9 120 22 133/71 98 Nasal Cannula 2.0 07/17/19 08:36 99.7 124 22 133/71 (91) 96 Room Air Height (Feet): 5 Height (Inches): 10.00 Weight (Pounds): 145 Laboratory Tests Test 07/17/19 08:46 07/17/19 08:50 07/17/19 10:05 Urine Color Pale yellow Urine Appearance Clear Urine pH 8 (4.5-8.0) Urine Specific [place] 1.010 (1.005-1.035) Urine Protein 2+ (NEGATIVE) H Urine Glucose (UA) Negative (NEGATIVE) Urine Ketones Negative (NEGATIVE) Urine Blood Negative (NEGATIVE) Urine Nitrite Negative (NEGATIVE) Urine Bilirubin Negative (NEGATIVE) Urine Urobilinogen Normal MG/DL (0.0-1.0) Urine Leukocyte Esterase Negative (NEGATIVE) Urine RBC 0 /HPF (0 - 0) Urine WBC 0-2 /HPF (0 - 0) Urine Squamous Epithelial Cells None /LPF (NONE/OCC) Urine Bacteria Few /HPF (NONE) White Blood Count 18.7 K/UL (4.8-10.8) H Red Blood Count 3.26 M/UL (4.70-6.10) L Hemoglobin 9.9 G/DL (14.2-18.0) L Hematocrit 29.4 % (42.0-52.0) L Mean Corpuscular Volume 90 FL (80-99) Mean Corpuscular Hemoglobin 30.3 PG (27.0-31.0) Mean Corpuscular Hemoglobin Concent 33.6 G/DL (32.0-36.0) Red Cell Distribution Width 14.1 % (11.6-14.8) Platelet Count 435 K/UL (150-450) Mean Platelet Volume 6.0 FL (6.5-10.1) L Neutrophils (%) (Auto) % (45.0-75.0) Lymphocytes (%) (Auto) % (20.0-45.0) Monocytes (%) (Auto) % (1.0-10.0) Eosinophils (%) (Auto) % (0.0-3.0) Basophils (%) (Auto) % (0.0-2.0) Differential Total Cells Counted 100 Neutrophils % (Manual) 89 % (45-75) H Lymphocytes % (Manual) 6 % (20-45) L Monocytes % (Manual) 5 % (1-10) Eosinophils % (Manual) 0 % (0-3) Basophils % (Manual) 0 % (0-2) Band Neutrophils 0 % (0-8) Platelet Estimate Adequate Platelet Morphology Normal Red Blood Cell Morphology Normal Prothrombin Time 10.9 SEC (9.30-11.50) Prothromb Time International Ratio 1.0 (0.9-1.1) Activated Partial Thromboplast Time 29 SEC (23-33) Sodium Level 137 MMOL/L (136-145) Potassium Level 4.4 MMOL/L (3.5-5.1) Chloride Level 100 MMOL/L (98-107) Carbon Dioxide Level 27 MMOL/L (21-32) Anion Gap 11 mmol/L (5-15) Blood Urea Nitrogen 47 mg/dL (7-18) H Creatinine 1.1 MG/DL (0.55-1.30) Estimat Glomerular Filtration Rate > 60 mL/min (>60) Glucose Level 117 MG/DL (74-106) H Lactic Acid Level 2.70 mmol/L (0.4-2.0) H 1.90 mmol/L (0.66-2.22) Calcium Level 10.0 MG/DL (8.5-10.1) Total Bilirubin 0.4 MG/DL (0.2-1.0) Aspartate Amino Transf (AST/SGOT) 46 U/L (15-37) H Alanine Aminotransferase (ALT/SGPT) 125 U/L (12-78) H Alkaline Phosphatase 144 U/L (46-116) H Total Creatine Kinase 92 U/L (26-308) Troponin I 0.000 ng/mL (0.000-0.056) Total Protein 8.6 G/DL (6.4-8.2) H Albumin 3.1 G/DL (3.4-5.0) L Globulin 5.5 g/dL Albumin/Globulin Ratio 0.6 (1.0-2.7) L Lipase 114 U/L (73-393) Current Medications Medications (Trade) Dose Ordered Sig/Altagracia Route PRN Reason Start Time Stop Time Status Last Admin Dose Admin Acetaminophen (Tylenol) 650 mg Q4H PRN ORAL Mild Pain (Pain Scale 1-3) 07/17/19 10:15 08/16/19 10:14 Acetaminophen (Tylenol) 650 mg Q4H PRN ORAL Temp >100.5 07/17/19 10:15 08/16/19 10:14 Amlodipine Besylate (Norvasc) 5 mg DAILY GT 07/18/19 09:00 08/17/19 08:59 Ascorbic Acid (Vitamin C) 500 mg DAILY GT 07/18/19 09:00 08/17/19 08:59 UNV Bisacodyl (Dulcolax) 10 mg DAILYPRN PRN RECTAL Constipation 07/17/19 10:15 10/15/19 10:14 Dextrose (Dextrose 50%) 25 ml Q30M PRN IV Hypoglycemia 07/17/19 10:15 10/15/19 10:14 Dextrose (Dextrose 50%) 50 ml Q30M PRN IV Hypoglycemia 07/17/19 10:15 10/15/19 10:14 Finasteride (Proscar) 5 mg DAILY ORAL 07/18/19 09:00 10/16/19 08:59 UNV Hydralazine HCl (Apresoline) 25 mg Q6H PRN GT SBP > 160 07/17/19 10:15 10/15/19 10:14 Lisinopril (PriniviL) 10 mg DAILY GT 07/18/19 09:00 08/17/19 08:59 Magnesium Hydroxide (Mom) 30 ml HSPRN PRN ORAL Constipation 07/17/19 10:15 08/16/19 10:14 Ondansetron HCl (Zofran) 4 mg Q6H PRN IVP Nausea & Vomiting 07/17/19 10:15 08/16/19 10:14 Pantoprazole (Protonix) 40 mg EVERY 12 HOURS IV 07/17/19 21:00 08/16/19 20:59 Polyethylene Glycol (Miralax) 17 gm DAILYPRN PRN ORAL Constipation 07/17/19 10:15 08/16/19 10:14 Potassium Chloride (K-Dur) 20 meq DAILY GT 07/18/19 09:00 10/16/19 08:59 Tamsulosin HCl (Flomax) 0.4 mg DAILY ORAL 07/18/19 09:00 08/17/19 08:59 Thiamine HCl (Vitamin B1) 100 mg DAILY GT 07/18/19 09:00 08/17/19 08:59 Tramadol HCl (Ultram) 50 mg DAILY PRN GT For Pain 07/17/19 10:15 07/24/19 10:14 Bonny Rincon MD July 17, 2019 12:15
--- NOTE | 2019-07-17 13:04 | NUR ---
ED Nurse Note: Report given to Benji CURRY at Telemetry Unit for continuity of care.
--- NOTE | 2019-07-17 13:35 | NUR ---
TRANSFER TO TELEMETRY Patient transferred to Telemetry Unit as ordered, per Dr. Hyatt/Dr. Yee. Report given to Benji CURRY. Belongings and medications given to receiving primary nurse. Family and or S/O informed of transfer.
[2019-07-17 13:59] VITALS: BP 129/68
--- NOTE | 2019-07-17 14:10 | NUR ---
NURSE NOTES:handoff received from ANTOINETTE Ba. Patient arrived to the floor on 2 liters nasal cannula, vitals stable. Placed on solderer torch. Patient placed in clean gown. Wound pictures taken. patient is alert but aphasic, no acute signs of distress noted. Patient is on Isolation for R/O Covid and MRSA history. Bed in the low and locked position with call light within reach. Will continue to monitor patient.
[2019-07-17] MEDS ORDERED: PROTONIX20 MG GT (15:06)
[2019-07-17] MEDS: Piperacillin/Tazobactam 3.375 GM in D5W 110 ML IVPB SCH ×2 (15:46→22:34)
[2019-07-17 16:00] VITALS: BP 94/64
[2019-07-17] MEDS ORDERED: traMADol 50mg tab ORAL PRN (16:45)
--- NOTE | 2019-07-17 17:14 | Consultation ---
DATE OF CONSULTATION: 07/17/2019 CONSULTING PHYSICIAN: Ramiro Romero M.D. CHIEF COMPLAINT: Coffee-grounds emesis. HISTORY OF PRESENT ILLNESS: Most of history per chart. This is a 73-year-old male, residential patient, known to me back in December of 2018 where I did endoscopy and colonoscopy for this patient for evaluation of anemia. Endoscopy showed evidence of a hiatal hernia, H. pylori negative gastritis, no obvious upper GI bleeding. Colonoscopy was poor prep, incomplete and patient showed some evidence of hemorrhoids. Patient apparently has been admitted another time since then for UTI in this hospital and sepsis, but now admitted this time for coffee-grounds emesis. PAST MEDICAL HISTORY: 1. History of chronic anemia. 2. H. pylori negative gastritis. 3. Hiatal hernia. 4. Hemorrhoids. 5. Dementia. 6. Hypertension. 7. UTI. 8. Hypercholesteremia. 9. Patient has dysphagia with a G-tube. ALLERGIES: No known allergies. MEDICATIONS: Please see medication reconciliation list. SOCIAL HISTORY: Currently lives in a residential. No recent history of tobacco, alcohol, or drug abuse. FAMILY HISTORY: Noncontributory. REVIEW OF SYSTEMS: Unable to obtain. FAMILY HISTORY: Noncontributory. REVIEW OF SYSTEMS: Unable to obtain. PAST SURGICAL HISTORY: Unknown. PHYSICAL EXAMINATION: VITAL SIGNS: Temperature is 100.9, pulse is 120, respirations 22, blood pressure is 133/71. HEENT: Normocephalic, atraumatic. Mild pale conjunctivae. NECK: Supple. No evidence of obvious lymphadenopathy. CARDIOVASCULAR: Tachy. Regular rate. Plus S1-S2. LUNGS: Decreased breath sounds bilaterally diffusely on supine exam. ABDOMEN: Soft, nontender. G-tube in place. No rebound. No guarding. No peritoneal sign. EXTREMITIES: No cyanosis. No clubbing. Patient has some pressure ulcerations. LABORATORY DATA: Labs are pending. The most recent labs, the chem-7 is back with sodium 137, potassium 4.4, BUN is 47, creatinine is 1.1. AST is 46, ALT 125, alkaline phosphatase is 144. IMAGING STUDIES: Chest x-ray in this admission showed persistent infiltrate in the right lower lobe, likely pneumonia. Recommended correction with CT to exclude mass lesion. Abdominal ultrasound from prior admission showed evidence of no acute finding atherosclerosis disease, possible stone in the right kidney. ASSESSMENT AND PLAN: This is a 73-year-old male with numerous medical problems, admitted to the hospital with possible coffee-ground emesis. Patient has prior history of anemia. As I mentioned in HPI, patient had endoscopy and colonoscopy in December. Patient at this time has right-sided pneumonia, tachycardia, low-grade fever. We will recommend holding GI procedures at this time. We will recommend hold the feeding at this time. Patient to be on a PPI, Protonix 40 mg IV q.12. Hemoglobin and hematocrit to be monitored closely and transfuse to keep the hemoglobin above 7.5. We will send the stool for OB. Antibiotics per ID. IV hydration. Stool for OB. Plan to start tube feeding tomorrow if patient is stable. Unless patient showed evidence of significant GI bleeding, we will schedule GI procedures at that time. I want to thank Dr. Hyatt and his team for this kind referral. Ramiro Romero M.D. DR: RAFAEL JOB#: [id number] CC: Darion Hyatt M.D.; Fax#: [phone]
[2019-07-17] MEDS: Vancomycin 500 MG in NS 110 ML IVPB SCH (19:50)
--- NOTE | 2019-07-17 19:55 | NUR ---
HAND-OFF: Report given to ANTOINETTE Lau.
[2019-07-17 20:00] VITALS: BP 128/74
--- NOTE | 2019-07-17 20:04 | NUR ---
NURSE NOTES: Received patient in bed, patient is non verbal, total care, incontinent of bowel and bladder, both IVs are clean dry and intact. No acute distress noted, call light is within reach, bed is lowered, locked,alarm is on, will continue to monitor for comfort and safety.
--- NOTE | 2019-07-17 21:11 | Consultation ---
History of Present Illness General Date patient seen: July 17, 2019 Chief Complaint: Gastrointestinal Bleed Present Illness HPI This is a 73-year-old male with multiple medical communities who was recently hospitalized presents with sepsis, fever, leukocytosis, lactic acidosis, abnormal LFTs. Patient admitted for further care and management. Had coffee- ground emesis and melena per report. Considerations for GI bleed. Surgery called to evaluate and assist with care. Patient seen, patient evaluate, chart reviewed. Patient with multiple decubitus ulcers requiring care and management. Patient nonverbal at bedside. Chart reviewed information obtained from EMR and report Allergies: Coded Allergies: No Known Allergies (Unverified , 08/20/18) Medication History Scheduled Amino Acids/Protein Hydrolys (Pro-Stat Liquid), 30 ML GT DAILY, (Reported) Amlodipine Besylate* (Amlodipine Besylate*), 5 MG GT DAILY, (Reported) Ascorbic Acid* (Vitamin C*), 500 MG GT DAILY, (Reported) Cholecalciferol (Vitamin D3) (Vitamin D3), 800 UNIT GT TID, (Reported) Cyanocobalamin (Vitamin B-12) (Vitamin B-12), 1,000 MCG GT DAILY, (Reported) Ergocalciferol (Vitamin D2)* (Vitamin D*), 50,000 UNIT GT ONCE A WEEK, (Reported ) Finasteride* (Proscar*), 5 MG GT DAILY, (Reported) Heparin Sod (Porcine) (Heparin Sodium*), 5,000 UNITS SUBQ EVERY 12 HOURS, ( Reported) Lisinopril* (Lisinopril*), 10 MG GT DAILY, (Reported) Meropenem-0.9% Sodium Chloride (Meropenem-0.9% NaCl 1 Gram/50), 1 GM IV BID Pantoprazole Sodium (Protonix), 40 MG GT DAILY Potassium Chloride (K-Tab ER), 20 MEQ GT DAILY, (Reported) Tamsulosin HCl (Flomax), 0.4 MG GT DAILY, (Reported) Thiamine Hcl* (Vitamin B-1*), 100 MG GT DAILY, (Reported) [mvi w/ vitamins], 1 TAB GT DAILY, (Reported) Scheduled PRN Acetaminophen* (Acetaminophen 325MG Tablet*), 650 MG GT Q6H PRN for Mild Pain/ Temp > 100.5, (Reported) Chlorpromazine (Chlorpromazine HCl), 25 MG GT EVERY 8 HOURS PRN for HICCUPS, ( Reported) Hydralazine Hcl* (Hydralazine Hcl*), 25 MG GT EVERY 6 HOURS PRN for SBP > 160, ( Reported) Ipratropium/Albuterol Sulfate (Iprat-Albut 0.5-3(2.5) Mg/3 Ml), 3 ML IH Q6HR PRN for Shortness of Breath, (Reported) Ondansetron* (Zofran*), 4 MG GT Q6H PRN for Nausea & Vomiting, (Reported) Pantoprazole Sodium (Protonix), 20 MG ORAL DAILY PRN for ., (Reported) Tramadol Hcl* (Ultram*), 50 MG GT DAILY PRN for For Pain, (Reported) Miscellaneous Medications Cran/Vitc/Mannose/Inulin/Brom (Uti-Stat Liquid), 3,875 MG GT, (Reported) Zinc Gluconate (Zinc), 50 MG GT, (Reported) Patient History Limited by: medical condition History Provided By: Medical Record, PMD Healthcare decision maker Resuscitation status Advanced Directive on File Past Medical/Surgical History Past Medical/Surgical History: (1) Hematemesis (2) Gastrointestinal hemorrhage (3) Hematuria (4) Fecal impaction (5) Rhabdomyolysis (6) GI bleed (7) Encounter for PEG (percutaneous endoscopic gastrostomy) (8) BRYANT (acute kidney injury) (9) Urinary retention (10) Bladder calculi (11) Proteinuria (12) Altered mental status (13) Electrolyte imbalance (14) Hypertension (15) Pneumonia (16) Severe sepsis (17) Frequent PVCs (18) Hypokalemia (19) UTI (urinary tract infection) (20) Elevated LFTs (21) Dehydration (22) Decubitus skin ulcer (23) UTI (urinary tract infection) (24) Suspected COVID-19 virus infection (25) BPH (benign prostatic hyperplasia) (26) Hyponatremia (27) Severe malnutrition (28) Failure to thrive syndrome, adult (29) Sepsis Review of Systems ROS Narrative Cannot obtain given patient's baseline medical condition Physical Exam General Appearance: no apparent distress Lines, tubes and drains: peripheral HEENT: normocephalic, atraumatic, anicteric, mucous membranes moist Neck: normal inspection Respiratory/Chest: no respiratory distress, no accessory muscle use, decreased breath sounds Cardiovascular/Chest: normal rate Abdomen: soft, no organomegaly, no mass, other Genitourinary/Rectal: normal rectal exam Extremities: non-tender, non-pitting, other Skin Exam: warm/dry Neurologic: alert Last 24 Hour Vital Signs Date Time Temp Pulse Resp B/P (MAP) Pulse Ox O2 Delivery O2 Flow Rate FiO2 07/17/19 20:07 99.0 07/17/19 16:00 94 07/17/19 16:00 100.4 132 19 94/64 (74) 100 07/17/19 14:35 Nasal Cannula 2.0 07/17/19 13:59 97.8 104 20 129/68 (88) 96 07/17/19 13:35 100.9 89 20 108/62 98 Nasal Cannula 2.0 07/17/19 12:14 100.9 88 24 99/57 98 Nasal Cannula 2.0 07/17/19 10:51 100.9 104 24 108/59 98 Nasal Cannula 2.0 07/17/19 09:30 120 22 Nasal Cannula 2.0 07/17/19 09:00 100.9 120 22 133/71 98 Nasal Cannula 2.0 07/17/19 08:36 99.7 124 22 133/71 (91) 96 Room Air Laboratory Tests Test 07/17/19 08:46 07/17/19 08:50 07/17/19 10:05 Urine Color Pale yellow Urine Appearance Clear Urine pH 8 (4.5-8.0) Urine Specific [place] 1.010 (1.005-1.035) Urine Protein 2+ (NEGATIVE) H Urine Glucose (UA) Negative (NEGATIVE) Urine Ketones Negative (NEGATIVE) Urine Blood Negative (NEGATIVE) Urine Nitrite Negative (NEGATIVE) Urine Bilirubin Negative (NEGATIVE) Urine Urobilinogen Normal MG/DL (0.0-1.0) Urine Leukocyte Esterase Negative (NEGATIVE) Urine RBC 0 /HPF (0 - 0) Urine WBC 0-2 /HPF (0 - 0) Urine Squamous Epithelial Cells None /LPF (NONE/OCC) Urine Bacteria Few /HPF (NONE) White Blood Count 18.7 K/UL (4.8-10.8) H Red Blood Count 3.26 M/UL (4.70-6.10) L Hemoglobin 9.9 G/DL (14.2-18.0) L Hematocrit 29.4 % (42.0-52.0) L Mean Corpuscular Volume 90 FL (80-99) Mean Corpuscular Hemoglobin 30.3 PG (27.0-31.0) Mean Corpuscular Hemoglobin Concent 33.6 G/DL (32.0-36.0) Red Cell Distribution Width 14.1 % (11.6-14.8) Platelet Count 435 K/UL (150-450) Mean Platelet Volume 6.0 FL (6.5-10.1) L Neutrophils (%) (Auto) % (45.0-75.0) Lymphocytes (%) (Auto) % (20.0-45.0) Monocytes (%) (Auto) % (1.0-10.0) Eosinophils (%) (Auto) % (0.0-3.0) Basophils (%) (Auto) % (0.0-2.0) Differential Total Cells Counted 100 Neutrophils % (Manual) 89 % (45-75) H Lymphocytes % (Manual) 6 % (20-45) L Monocytes % (Manual) 5 % (1-10) Eosinophils % (Manual) 0 % (0-3) Basophils % (Manual) 0 % (0-2) Band Neutrophils 0 % (0-8) Platelet Estimate Adequate Platelet Morphology Normal Red Blood Cell Morphology Normal Prothrombin Time 10.9 SEC (9.30-11.50) Prothromb Time International Ratio 1.0 (0.9-1.1) Activated Partial Thromboplast Time 29 SEC (23-33) Sodium Level 137 MMOL/L (136-145) Potassium Level 4.4 MMOL/L (3.5-5.1) Chloride Level 100 MMOL/L (98-107) Carbon Dioxide Level 27 MMOL/L (21-32) Anion Gap 11 mmol/L (5-15) Blood Urea Nitrogen 47 mg/dL (7-18) H Creatinine 1.1 MG/DL (0.55-1.30) Estimat Glomerular Filtration Rate > 60 mL/min (>60) Glucose Level 117 MG/DL (74-106) H Lactic Acid Level 2.70 mmol/L (0.4-2.0) H 1.90 mmol/L (0.66-2.22) Calcium Level 10.0 MG/DL (8.5-10.1) Total Bilirubin 0.4 MG/DL (0.2-1.0) Aspartate Amino Transf (AST/SGOT) 46 U/L (15-37) H Alanine Aminotransferase (ALT/SGPT) 125 U/L (12-78) H Alkaline Phosphatase 144 U/L (46-116) H Total Creatine Kinase 92 U/L (26-308) Troponin I 0.000 ng/mL (0.000-0.056) Total Protein 8.6 G/DL (6.4-8.2) H Albumin 3.1 G/DL (3.4-5.0) L Globulin 5.5 g/dL Albumin/Globulin Ratio 0.6 (1.0-2.7) L Lipase 114 U/L (73-393) Height (Feet): 5 Height (Inches): 10.00 Weight (Pounds): 145 Medications Current Medications Medications (Trade) Dose Ordered Sig/Altagracia Route PRN Reason Start Time Stop Time Status Last Admin Dose Admin Acetaminophen (Tylenol) 650 mg Q4H PRN ORAL Mild Pain (Pain Scale 1-3) 07/17/19 10:15 08/16/19 10:14 Acetaminophen (Tylenol) 650 mg Q4H PRN ORAL Temp >100.5 07/17/19 10:15 08/16/19 10:14 Amlodipine Besylate (Norvasc) 5 mg DAILY GT 07/18/19 09:00 08/17/19 08:59 Ascorbic Acid (Vitamin C) 500 mg DAILY GT 07/18/19 09:00 08/17/19 08:59 Bisacodyl (Dulcolax) 10 mg DAILYPRN PRN RECTAL Constipation 07/17/19 10:15 10/15/19 10:14 Dextrose (Dextrose 50%) 25 ml Q30M PRN IV Hypoglycemia 07/17/19 10:15 10/15/19 10:14 Dextrose (Dextrose 50%) 50 ml Q30M PRN IV Hypoglycemia 07/17/19 10:15 10/15/19 10:14 Finasteride (Proscar) 5 mg DAILY ORAL 07/18/19 09:00 10/16/19 08:59 Hydralazine HCl (Apresoline) 25 mg Q6H PRN GT SBP > 160 07/17/19 10:15 10/15/19 10:14 Lisinopril (PriniviL) 10 mg DAILY GT 07/18/19 09:00 08/17/19 08:59 Magnesium Hydroxide (Mom) 30 ml HSPRN PRN ORAL Constipation 07/17/19 10:15 08/16/19 10:14 Ondansetron HCl (Zofran) 4 mg Q6H PRN IVP Nausea & Vomiting 07/17/19 10:15 08/16/19 10:14 Pantoprazole (Protonix) 40 mg EVERY 12 HOURS IV 07/17/19 21:00 08/16/19 20:59 Piperacillin Sod/ Tazobactam Sod 3.375 gm/Dextrose 110 ml @ 27.5 mls/hr EVERY 8 HOURS IVPB 07/17/19 14:00 07/22/19 13:59 07/17/19 15:46 Polyethylene Glycol (Miralax) 17 gm DAILYPRN PRN ORAL Constipation 07/17/19 10:15 08/16/19 10:14 Potassium Chloride (K-Dur) 20 meq DAILY GT 07/18/19 09:00 10/16/19 08:59 Tamsulosin HCl (Flomax) 0.4 mg DAILY ORAL 07/18/19 09:00 08/17/19 08:59 Thiamine HCl (Vitamin B1) 100 mg DAILY GT 07/18/19 09:00 08/17/19 08:59 Tramadol HCl (Ultram) 50 mg Q8H PRN ORAL Severe Pain (Pain Scale 7-10) 07/17/19 16:45 07/24/19 16:44 Vancomycin HCl (Vanco rx to dose) 1 ea DAILY PRN MISC Per rx protocol 07/17/19 12:15 08/16/19 12:14 Vancomycin HCl 500 mg/Sodium Chloride 110 ml @ 110 mls/hr Q12HR@0500,1700 IVPB 07/17/19 17:00 07/22/19 16:59 07/17/19 19:50 Assessment/Plan Problem List: (1) GI bleed Assessment & Plan: Patient noted to have coffee-ground emesis and melena. Hemoglobin noted and stable No active bleeding noted at this time No gross blood on rectal Trend labs will monitor Appreciate GI input ICD Codes: K92.2 - Gastrointestinal hemorrhage, unspecified SNOMED: 43891670 (2) Decubitus skin ulcer Assessment & Plan: Patient presents on admission with multiple skin concerns. Patient identified to have a 2 cm x 1 cm x 2 mm deep unstageable right lateral foot distal malleolus decubitus ulcer with slough in the base raised edges periwound with mild erythema no active drainage no acute active infectious process no foul odor. Patient identified to have deep tissue injury around the area of the issue him and sacrum. Prior healing skin changes identified. No active drainage no fluctuance. Overall patient very deconditioned and malnutrition. Albumin low. Currently sepsis Nutritional optimization very important Treatment plan: Wash right foot daily with normal saline. Apply Thera honey followed by gauze and foam dressing to the right foot ulcer change daily and as needed saturation Apply skin protectant and foam dressing to the bilateral ischio and sacral region change every 3 days and as needed saturation Monitor for incontinence Change accordingly Turn every 2 hours Offload pressure with air mattress pressure release Offload heels with pillow under calves We will follow with recommendations thank you for let me participate patient's care ICD Codes: L89.90 - Pressure ulcer of unspecified site, unspecified stage SNOMED: 532843421 (3) Severe malnutrition ICD Codes: E43 - Unspecified severe protein-calorie malnutrition SNOMED: 73684014 (4) Failure to thrive syndrome, adult ICD Codes: R62.7 - Failure to thrive syndrome, adult SNOMED: 559027617 (5) Sepsis Assessment & Plan: Febrile, leukocytosis, lactic acidosis. Abnormal labs. Lactic acidosis improving with fluid resuscitation UA noted pending micro Broad-spectrum antibiotics per infectious disease. Continue with current care and plan will follow with recs ICD Codes: A41.9 - Sepsis, unspecified organism SNOMED: 12796600 (6) Elevated LFTs ICD Codes: R94.5 - Abnormal results of liver function studies SNOMED: 632299377, 861295819 (7) Suspected COVID-19 virus infection Assessment & Plan: Persistent infiltrate in right lower lobe, likely pneumonia. Recommend correlation with CT to exclude mass lesion. ICD Codes: Z20.828 - Contact with and (suspected) exposure to other viral communicable diseases SNOMED: 086203169 Reji Guy July 17, 2019 21:11
[2019-07-17] MEDS: Pantoprazole Inj IV SCH (21:26)
--- NOTE | 2019-07-17 23:48 | NUR ---
NURSE NOTES: Per , marcial Johnston to hold Gtube feeding until 07/18/2019 , follow up in the am .
[2019-07-18] VITALS: BP 122/87
[2019-07-18 04:00] VITALS: BP 129/89
[2019-07-18] MEDS: Vancomycin 500 MG in NS 110 ML IVPB SCH ×2 (04:10→16:58)
[2019-07-18] MEDS: Piperacillin/Tazobactam 3.375 GM in D5W 110 ML IVPB SCH ×3 (05:28→22:13)
[2019-07-18 07:11] LABS: HEMATOCRIT 21.9 % (42.0-52.0); HEMOGLOBIN 7.6 G/DL (14.2-18.0); MEAN CORPUSCULAR VOLUME 90 FL (80-99); PLATELET COUNT 367 K/UL (150-450); RED BLOOD COUNT 2.45 M/UL (4.70-6.10); WHITE BLOOD COUNT 11.2 K/UL (4.8-10.8)
[2019-07-18 07:12] LABS: INR 1.1 (0.9-1.1)
--- NOTE | 2019-07-18 07:15 | NUR ---
NURSE NOTES: Report received from Judi CURRY.Pt resting quietly in bed asleep noted no resp distress on 2LNC,no signs of pain or discomfort SR on the monitor,PT NPO with GT Clamp,incontinent of urine ,Skin warm and dry with IV to RAC,site intact,SR up x2 HOB elevated, bed lock in lowest position will continue with plans of care.
[2019-07-18 07:38] LABS: ALANINE AMINOTRANSFERASE 84 U/L (12-78); ALBUMIN 2.5 G/DL (3.4-5.0); ALBUMIN/GLOBULIN RATIO 0.5 (1.0-2.7); ALKALINE PHOSPHATASE 96 U/L (46-116); ANION GAP 9 mmol/L (5-15); ASPARTATE AMINO TRANSFERASE 27 U/L (15-37); BILIRUBIN,TOTAL 0.7 MG/DL (0.2-1.0); BLOOD UREA NITROGEN 20 mg/dL (7-18); CALCIUM 9.3 MG/DL (8.5-10.1); CARBON DIOXIDE 24 MMOL/L (21-32); CHLORIDE 105 MMOL/L (98-107); CREATININE 0.8 MG/DL (0.55-1.30); POTASSIUM 3.7 MMOL/L (3.5-5.1); SODIUM 137 MMOL/L (136-145)
[2019-07-18 08:00] VITALS: BP 119/64
[2019-07-18] MEDS ORDERED: Ascorbic Acid 500mg tab GT SCH (09:00)
--- NOTE | 2019-07-18 09:09 | General Progress Note ---
Assessment/Plan Assessment/Plan: 73-year-old male with PMH of advanced dementia (bedbound, nonverbal, PEG dependent at baseline), dysphasia s/p PEG tube, COPD, HTN, depression, PVCs, GERD, functional quadriplegia, adult failure to thrive, sacral ulcer who presents from rehab facility for hematemesis. On admission pt was noted to have temperature of 100.9 rectally, rhonchorous cough. CXR performed which showed RLL infiltrate. Patient admitted for further treatment and evaluation. #Sepsis likely 04/17 #Aspiration PNA #HCAP #Suspect COVID-10 #Lactic acidosis -resolved -admit to tele -COVID-19 precautions (droplet/contact) -COVID PCR pending -CXR w/RLL infiltrate -BCx prelim w/GPC in clusters 04/17 -f/u w/sensitivities -ID following: cont. vanc and zosyn #Hematemesis - improved -no further episodes of hematemesis noted -Hgb stable on admission -cont to monitor H&H -transfuse for hgb<7 -Protonix, IVF -GI consulted, recs appreciated #Transaminitis - resolved -likely elevated due to sepsis -no abd pain on palpation -GI following #Hx of HTN -cont lisinopril #Advance dementia- bed bound, PEG dependent #Functional quadriplegia #Depression #Anemia of chronic disease- stable -nutrition consulted for tube feeds #Sacral wound #Right foot Ulcer -Wound care consulted, recs appreciated DVT PPx: SCDs given acute bleed Time spent on encounter: 35 mins, >50% on counseling, coordination of care, d/w RN, Dr. Romero, and Dr. Rincon. Time of note doesn't reflect time of encounter. Subjective Allergies: Coded Allergies: No Known Allergies (Unverified , 08/20/18) Subjective Follow-up for hematemesis. Pending COVID rule out. No further episodes of hematemesis overnight. 12 pt ROS neg limited, patient aphasic. Patient appears to be in no distress. Objective Last 24 Hour Vital Signs Date Time Temp Pulse Resp B/P (MAP) Pulse Ox O2 Delivery O2 Flow Rate FiO2 07/18/19 04:00 79 07/18/19 04:00 97.4 74 22 129/89 (102) 98 07/18/19 00:00 86 07/18/19 00:00 98.9 74 18 122/87 (99) 98 74 07/17/19 21:00 Nasal Cannula 2.0 07/17/19 20:07 99.0 07/17/19 20:00 98.7 89 20 128/74 (92) 97 07/17/19 20:00 87 07/17/19 16:00 94 07/17/19 16:00 100.4 132 19 94/64 (74) 100 07/17/19 14:35 Nasal Cannula 2.0 07/17/19 13:59 97.8 104 20 129/68 (88) 96 07/17/19 13:35 100.9 89 20 108/62 98 Nasal Cannula 2.0 07/17/19 12:14 100.9 88 24 99/57 98 Nasal Cannula 2.0 07/17/19 10:51 100.9 104 24 108/59 98 Nasal Cannula 2.0 07/17/19 09:30 120 22 Nasal Cannula 2.0 Intake and Output 07/17/19 07/18/19 19:00 07:00 Intake Total 500 ml Output Total 2 ml Balance 498 ml Intake IV Total 500 ml Output Urine Total 2 ml Laboratory Tests 07/17/19 10:05: Lactic Acid Level 1.90 07/18/19 06:27: White Blood Count 11.2H, Red Blood Count 2.45L, Hemoglobin 7.6L, Hematocrit 21.9L, Mean Corpuscular Volume 90, Mean Corpuscular Hemoglobin 30.9, Mean Corpuscular Hemoglobin Concent 34.5, Red Cell Distribution Width 14.0, Platelet Count 367, Mean Platelet Volume 6.2L, Neutrophils (%) (Auto) , Lymphocytes (%) ( Auto) , Monocytes (%) (Auto) , Eosinophils (%) (Auto) , Basophils (%) (Auto) , Neutrophils % (Manual) [Pending], Lymphocytes % (Manual) [Pending], Platelet Estimate [Pending], Platelet Morphology [Pending], Prothrombin Time 12.0H, Prothromb Time International Ratio 1.1, Sodium Level 137, Potassium Level 3.7, Chloride Level 105, Carbon Dioxide Level 24, Anion Gap 9, Blood Urea Nitrogen 20H, Creatinine 0.8, Estimat Glomerular Filtration Rate > 60, Glucose Level 101 , Calcium Level 9.3, Total Bilirubin 0.7, Aspartate Amino Transf (AST/SGOT) 27, Alanine Aminotransferase (ALT/SGPT) 84H, Alkaline Phosphatase 96, Total Protein 7.3, Albumin 2.5L, Globulin 4.8, Albumin/Globulin Ratio 0.5L Height (Feet): 5 Height (Inches): 10.00 Weight (Pounds): 145 Objective General Appearance: NAD, non-verbal at b/l, awake, thin HEENT: NCAT, EOMI Neck: normal alignment, supple Respiratory/Chest: Coarse rhonchi heard throughout all lung blanco, no accessory muscle usage Cardiovascular/Chest: normal rate, regular rhythm Abdomen: non tender, soft, PEG tube in place, c/d/i Extremities: contracted b/l UE and LE, no edema appreciated Neurologic: Demented, nonverbal Musculoskeletal: atrophy Russell Yee M.D. July 18, 2019 09:09
[2019-07-18] MEDS: Ascorbic Acid 500mg tab GT SCH ×2 (09:26→17:40)
[2019-07-18] MEDS: Tamsulosin 0.4mg cap ORAL SCH (09:27)
[2019-07-18] MEDS: Thiamine 100mg tab GT SCH (09:27)
[2019-07-18] MEDS: Pantoprazole Inj IV SCH ×2 (09:27→22:13)
[2019-07-18] MEDS: Lisinopril 20mg tab GT SCH (09:27)
[2019-07-18 12:00] VITALS: BP 125/63
--- NOTE | 2019-07-18 12:54 | General Progress Note ---
Assessment/Plan Assessment/Plan: 1. History of chronic anemia. 2. H. pylori negative gastritis. 3. Hiatal hernia. 4. Hemorrhoids. 5. Dementia. 6. Hypertension. 7. UTI. 8. Hypercholesteremia. 9. Patient has dysphagia with a G-tube. 10 GIB 11. elevated LFTS drop in H&H without active bleed stool ob pending ppi transfuse to keep HGB above 7.5 GI procedures on hold for now resume GTF Subjective ROS Limited/Unobtainable: No Allergies: Coded Allergies: No Known Allergies (Unverified , 08/20/18) Objective Last 24 Hour Vital Signs Date Time Temp Pulse Resp B/P (MAP) Pulse Ox O2 Delivery O2 Flow Rate FiO2 07/18/19 12:00 87 07/18/19 09:27 129/89 07/18/19 09:27 79 129/89 07/18/19 09:00 Nasal Cannula 2.0 07/18/19 08:00 81 07/18/19 08:00 98.0 90 18 119/64 (82) 94 07/18/19 04:00 79 07/18/19 04:00 97.4 74 22 129/89 (102) 98 07/18/19 00:00 86 07/18/19 00:00 98.9 74 18 122/87 (99) 98 74 07/17/19 21:00 Nasal Cannula 2.0 07/17/19 20:07 99.0 07/17/19 20:00 98.7 89 20 128/74 (92) 97 07/17/19 20:00 87 07/17/19 16:00 94 07/17/19 16:00 100.4 132 19 94/64 (74) 100 07/17/19 14:35 Nasal Cannula 2.0 07/17/19 13:59 97.8 104 20 129/68 (88) 96 07/17/19 13:35 100.9 89 20 108/62 98 Nasal Cannula 2.0 Intake and Output 07/17/19 07/18/19 19:00 07:00 Intake Total 500 ml Output Total 2 ml Balance 498 ml Intake IV Total 500 ml Output Urine Total 2 ml Laboratory Tests 07/18/19 06:27: White Blood Count 11.2H, Red Blood Count 2.45L, Hemoglobin 7.6L, Hematocrit 21.9L, Mean Corpuscular Volume 90, Mean Corpuscular Hemoglobin 30.9, Mean Corpuscular Hemoglobin Concent 34.5, Red Cell Distribution Width 14.0, Platelet Count 367, Mean Platelet Volume 6.2L, Neutrophils (%) (Auto) , Lymphocytes (%) ( Auto) , Monocytes (%) (Auto) , Eosinophils (%) (Auto) , Basophils (%) (Auto) , Differential Total Cells Counted 100, Neutrophils % (Manual) 82H, Lymphocytes % (Manual) 9L, Monocytes % (Manual) 7, Eosinophils % (Manual) 1, Basophils % ( Manual) 1, Band Neutrophils 0, Platelet Estimate Adequate, Platelet Morphology Normal, Anisocytosis 1+, Microcytosis 2+, Prothrombin Time 12.0H, Prothromb Time International Ratio 1.1, Sodium Level 137, Potassium Level 3.7, Chloride Level 105, Carbon Dioxide Level 24, Anion Gap 9, Blood Urea Nitrogen 20H, Creatinine 0.8, Estimat Glomerular Filtration Rate > 60, Glucose Level 101, Calcium Level 9.3, Total Bilirubin 0.7, Aspartate Amino Transf (AST/SGOT) 27, Alanine Aminotransferase (ALT/SGPT) 84H, Alkaline Phosphatase 96, Total Protein 7.3, Albumin 2.5L, Globulin 4.8, Albumin/Globulin Ratio 0.5L Height (Feet): 5 Height (Inches): 10.00 Weight (Pounds): 145 General Appearance: no apparent distress EENT: normal ENT inspection Neck: normal alignment Cardiovascular: normal rate Respiratory/Chest: decreased breath sounds Abdomen: normal bowel sounds, non tender, soft Extremities: non-tender Ramiro Romero MD July 18, 2019 12:54
--- NOTE | 2019-07-18 12:56 | NUR ---
NURSE NOTES: Wound care nurse Kiley here and assessed pt 's wounds and applied optifoam drsg.
--- NOTE | 2019-07-18 13:18 | NUR ---
NURSE NOTES:WOUND CARE NOTES:Pt presented on admission with multiple pressure injuries. DTPI noted to L elbow(L)1.5cm x (W)2cm. Base of wound is maroon and indurated without elevation in skin temp. Resolving sacral pressure injury.Dry,pink epithelial with surrounding black borders with erythema or induration. DTPI R trochanter (L)10cm x (W)9.5cm. Base of wound is purple/ maroon and indurated. periwound without evidence of further skin breakdown. Unstageable pressure injury L trochanter(L05cm x (W)2.5cm. Dry necrosis at base of wound. Marginal erythema without induration periwound. Unstagable Pressure injury distal/lateral R foot(L)1.3cm x (W)1.5cm x (D)0.9cm. Base of wound is 80% fibrinous slough ,surrounding 20% erythematous. Bone palpable.Edges are macerated.Marginal erythema with fluctuance periwound. Mild odor noted. Non-Blanching erythema with delineated margins noted to lateral R heel.(L)2.5cm x (W)4cm Non-Blanching erythema without fluctuance L heel . Tx.Plan:Apply Cavilon Skin Barrier to R and L Elbows. Cover each Elbow with Optifoam drsg. Change every 7 days and prn. Apply Moisture Barrier Paste to Sacrum. Cover with Optifoam drsg. Change every 3 days and prn. Apply Cavilon Skin Barrier to R trochanter. Cover with Optifoam drsg. Change every 7 days and prn. Apply Betadine to L trochanter. Cover with Optifoam drsg. Change every 3 days and prn. Apply Betadine to Distal/Lateral R foot. Cover with Optifoam drsg Daily and prn. Apply Cavilon Skin Barrier to both heels. Cover each heel with Optifoam drsg. Change every 7 days and prn. Reposition at least every 2hours or as tolerated. Off-load heels with Pillow. Place pillow between knees. APM/RAVINDER Mattress overlay.
--- NOTE | 2019-07-18 14:41 | Surgery Progress Note ---
Surgery Progress Note Subjective Additional Comments leukocytosis improved dressings changed at bedside exam stable h/h noted no complaints Objective Last 24 Hour Vital Signs Date Time Temp Pulse Resp B/P (MAP) Pulse Ox O2 Delivery O2 Flow Rate FiO2 07/18/19 12:00 87 07/18/19 12:00 99.1 99 20 125/63 (83) 95 07/18/19 09:27 129/89 07/18/19 09:27 79 129/89 07/18/19 09:00 Nasal Cannula 2.0 07/18/19 08:00 81 07/18/19 08:00 98.0 90 18 119/64 (82) 94 07/18/19 04:00 79 07/18/19 04:00 97.4 74 22 129/89 (102) 98 07/18/19 00:00 86 07/18/19 00:00 98.9 74 18 122/87 (99) 98 74 07/17/19 21:00 Nasal Cannula 2.0 07/17/19 20:07 99.0 07/17/19 20:00 98.7 89 20 128/74 (92) 97 07/17/19 20:00 87 07/17/19 16:00 94 07/17/19 16:00 100.4 132 19 94/64 (74) 100 I&O Intake and Output 07/17/19 07/18/19 19:00 07:00 Intake Total 500 ml Output Total 2 ml Balance 498 ml Intake IV Total 500 ml Output Urine Total 2 ml Dressing: other Wound: other Drains: other Cardiovascular: RSR Respiratory: decreased breath sounds Abdomen: soft, non-tender, present bowel sounds Extremities: no cyanosis, pulses, other Laboratory Tests Test 07/18/19 06:27 White Blood Count 11.2 K/UL (4.8-10.8) H Red Blood Count 2.45 M/UL (4.70-6.10) L Hemoglobin 7.6 G/DL (14.2-18.0) L Hematocrit 21.9 % (42.0-52.0) L Mean Corpuscular Volume 90 FL (80-99) Mean Corpuscular Hemoglobin 30.9 PG (27.0-31.0) Mean Corpuscular Hemoglobin Concent 34.5 G/DL (32.0-36.0) Red Cell Distribution Width 14.0 % (11.6-14.8) Platelet Count 367 K/UL (150-450) Mean Platelet Volume 6.2 FL (6.5-10.1) L Neutrophils (%) (Auto) % (45.0-75.0) Lymphocytes (%) (Auto) % (20.0-45.0) Monocytes (%) (Auto) % (1.0-10.0) Eosinophils (%) (Auto) % (0.0-3.0) Basophils (%) (Auto) % (0.0-2.0) Differential Total Cells Counted 100 Neutrophils % (Manual) 82 % (45-75) H Lymphocytes % (Manual) 9 % (20-45) L Monocytes % (Manual) 7 % (1-10) Eosinophils % (Manual) 1 % (0-3) Basophils % (Manual) 1 % (0-2) Band Neutrophils 0 % (0-8) Platelet Estimate Adequate Platelet Morphology Normal Anisocytosis 1+ Microcytosis 2+ Prothrombin Time 12.0 SEC (9.30-11.50) H Prothromb Time International Ratio 1.1 (0.9-1.1) Sodium Level 137 MMOL/L (136-145) Potassium Level 3.7 MMOL/L (3.5-5.1) Chloride Level 105 MMOL/L (98-107) Carbon Dioxide Level 24 MMOL/L (21-32) Anion Gap 9 mmol/L (5-15) Blood Urea Nitrogen 20 mg/dL (7-18) H Creatinine 0.8 MG/DL (0.55-1.30) Estimat Glomerular Filtration Rate > 60 mL/min (>60) Glucose Level 101 MG/DL (74-106) Calcium Level 9.3 MG/DL (8.5-10.1) Total Bilirubin 0.7 MG/DL (0.2-1.0) Aspartate Amino Transf (AST/SGOT) 27 U/L (15-37) Alanine Aminotransferase (ALT/SGPT) 84 U/L (12-78) H Alkaline Phosphatase 96 U/L (46-116) Total Protein 7.3 G/DL (6.4-8.2) Albumin 2.5 G/DL (3.4-5.0) L Globulin 4.8 g/dL Albumin/Globulin Ratio 0.5 (1.0-2.7) L Plan Problems: (1) GI bleed Assessment & Plan: Patient noted to have coffee-ground emesis and melena. Hemoglobin noted and stable No active bleeding noted at this time No gross blood on rectal Trend labs will monitor Appreciate GI input (2) Decubitus skin ulcer Assessment & Plan: Patient presents on admission with multiple skin concerns. Patient identified to have a 2 cm x 1 cm x 2 mm deep unstageable right lateral foot distal malleolus decubitus ulcer with slough in the base raised edges periwound with mild erythema no active drainage no acute active infectious process no foul odor. Patient identified to have deep tissue injury around the area of the issue him and sacrum. Prior healing skin changes identified. No active drainage no fluctuance. Overall patient very deconditioned and malnutrition. Albumin low. Currently sepsis Nutritional optimization very important Treatment plan: Wash right foot daily with normal saline. Apply Thera honey followed by gauze and foam dressing to the right foot ulcer change daily and as needed saturation Apply skin protectant and foam dressing to the bilateral ischio and sacral region change every 3 days and as needed saturation Monitor for incontinence Change accordingly Turn every 2 hours Offload pressure with air mattress pressure release Offload heels with pillow under calves We will follow with recommendations thank you for let me participate patient's care (3) Severe malnutrition (4) Failure to thrive syndrome, adult (5) Sepsis Assessment & Plan: Febrile, leukocytosis, lactic acidosis. Abnormal labs. Lactic acidosis improving with fluid resuscitation UA noted pending micro Broad-spectrum antibiotics per infectious disease. Continue with current care and plan will follow with recs (6) Elevated LFTs (7) Suspected COVID-19 virus infection Assessment & Plan: Persistent infiltrate in right lower lobe, likely pneumonia. Recommend correlation with CT to exclude mass lesion. Reji Guy July 18, 2019 14:41
[2019-07-18 16:00] VITALS: BP 92/64
--- NOTE | 2019-07-18 16:00 | NUR ---
NURSE NOTES: GTF Vital AF 1.2 started at 30 ml /hr goal is 60 ml/hr per order of DR Jones.
[2019-07-18] MEDS ORDERED: MULTIVITAMINS1 EAC8 GT (18:08)
[2019-07-18] MEDS ORDERED: ZINC SULFATE220 M1 GT (18:15)
--- NOTE | 2019-07-18 19:59 | NUR ---
:HAND-OFF: Paper report given to bracelet maker novelty Evelyn. .
[2019-07-18 20:37] VITALS: BP 106/68
--- NOTE | 2019-07-18 21:05 | NUR ---
Recieved report from Isela, charge nurse. Seen pt for initial rounding, pt is awake, confused, nonverbal, contracted to bilateral legs. PEG tube feeding infusing well, IV RAC intact/patent. no apparent CV c/o or pain noted. continue to monitor.
--- NOTE | 2019-07-18 22:18 | Infectious Diseases Prog Note ---
Assessment/Plan Assessment/Plan Full consult dictated: A) 1) gram + bacteremia, possible aspiration pna/hcap, sepsis, leukocytosis 2) gib 3) rule out covid-19 virus infection P) 1) zosyn and vancomycin 2) f/u labs, cultures and chest x-ray 3) await covid-19 testing 4) will f/u Subjective Constitutional: Denies: fever HEENT: Denies: congestion Respiratory: Denies: shortness of breath Cardiovascular: Denies: chest pain Gastrointestinal/Abdominal: Denies: nausea, vomiting, diarrhea Allergies: Coded Allergies: No Known Allergies (Unverified , 08/20/18) Objective Vital Signs Last 24 Hour Vital Signs Date Time Temp Pulse Resp B/P (MAP) Pulse Ox O2 Delivery O2 Flow Rate FiO2 07/18/19 20:39 66 07/18/19 20:37 98.2 89 16 106/68 (81) 98 89 07/18/19 16:00 102 07/18/19 16:00 97.0 94 20 92/64 (73) 95 07/18/19 12:00 87 07/18/19 12:00 99.1 99 20 125/63 (83) 95 07/18/19 09:27 129/89 07/18/19 09:27 79 129/89 07/18/19 09:00 Nasal Cannula 2.0 07/18/19 08:00 81 07/18/19 08:00 98.0 90 18 119/64 (82) 94 07/18/19 04:00 79 07/18/19 04:00 97.4 74 22 129/89 (102) 98 07/18/19 00:00 86 07/18/19 00:00 98.9 74 18 122/87 (99) 98 74 Height (Feet): 5 Height (Inches): 10.00 Weight (Pounds): 145 General Appearance: no acute distress HEENT: normocephalic, atraumatic, anicteric Respiratory/Chest: lungs clear, normal breath sounds, no respiratory distress Cardiovascular: normal rate, regular rhythm, no gallop/murmur Microbiology Date/Time Source Procedure Growth Status 07/17/19 09:00 Blood Blood Culture - Preliminary Resulted 07/17/19 08:50 Blood Blood Culture - Preliminary Resulted Laboratory Tests Test 07/18/19 06:27 White Blood Count 11.2 K/UL (4.8-10.8) H Red Blood Count 2.45 M/UL (4.70-6.10) L Hemoglobin 7.6 G/DL (14.2-18.0) L Hematocrit 21.9 % (42.0-52.0) L Mean Corpuscular Volume 90 FL (80-99) Mean Corpuscular Hemoglobin 30.9 PG (27.0-31.0) Mean Corpuscular Hemoglobin Concent 34.5 G/DL (32.0-36.0) Red Cell Distribution Width 14.0 % (11.6-14.8) Platelet Count 367 K/UL (150-450) Mean Platelet Volume 6.2 FL (6.5-10.1) L Neutrophils (%) (Auto) % (45.0-75.0) Lymphocytes (%) (Auto) % (20.0-45.0) Monocytes (%) (Auto) % (1.0-10.0) Eosinophils (%) (Auto) % (0.0-3.0) Basophils (%) (Auto) % (0.0-2.0) Differential Total Cells Counted 100 Neutrophils % (Manual) 82 % (45-75) H Lymphocytes % (Manual) 9 % (20-45) L Monocytes % (Manual) 7 % (1-10) Eosinophils % (Manual) 1 % (0-3) Basophils % (Manual) 1 % (0-2) Band Neutrophils 0 % (0-8) Platelet Estimate Adequate Platelet Morphology Normal Anisocytosis 1+ Microcytosis 2+ Prothrombin Time 12.0 SEC (9.30-11.50) H Prothromb Time International Ratio 1.1 (0.9-1.1) Sodium Level 137 MMOL/L (136-145) Potassium Level 3.7 MMOL/L (3.5-5.1) Chloride Level 105 MMOL/L (98-107) Carbon Dioxide Level 24 MMOL/L (21-32) Anion Gap 9 mmol/L (5-15) Blood Urea Nitrogen 20 mg/dL (7-18) H Creatinine 0.8 MG/DL (0.55-1.30) Estimat Glomerular Filtration Rate > 60 mL/min (>60) Glucose Level 101 MG/DL (74-106) Calcium Level 9.3 MG/DL (8.5-10.1) Total Bilirubin 0.7 MG/DL (0.2-1.0) Aspartate Amino Transf (AST/SGOT) 27 U/L (15-37) Alanine Aminotransferase (ALT/SGPT) 84 U/L (12-78) H Alkaline Phosphatase 96 U/L (46-116) Total Protein 7.3 G/DL (6.4-8.2) Albumin 2.5 G/DL (3.4-5.0) L Globulin 4.8 g/dL Albumin/Globulin Ratio 0.5 (1.0-2.7) L Current Medications Medications (Trade) Dose Ordered Sig/Altagracia Route PRN Reason Start Time Stop Time Status Last Admin Dose Admin Acetaminophen (Tylenol) 650 mg Q4H PRN ORAL Mild Pain (Pain Scale 1-3) 07/17/19 10:15 08/16/19 10:14 Acetaminophen (Tylenol) 650 mg Q4H PRN ORAL Temp >100.5 07/17/19 10:15 08/16/19 10:14 Amlodipine Besylate (Norvasc) 5 mg DAILY GT 07/18/19 09:00 08/17/19 08:59 07/18/19 09:27 Ascorbic Acid (Vitamin C) 250 mg TWICE A DAY GT 07/18/19 09:00 08/17/19 08:59 07/18/19 17:40 Bisacodyl (Dulcolax) 10 mg DAILYPRN PRN RECTAL Constipation 07/17/19 10:15 10/15/19 10:14 Dextrose (Dextrose 50%) 25 ml Q30M PRN IV Hypoglycemia 07/17/19 10:15 10/15/19 10:14 Dextrose (Dextrose 50%) 50 ml Q30M PRN IV Hypoglycemia 07/17/19 10:15 10/15/19 10:14 Finasteride (Proscar) 5 mg DAILY ORAL 07/18/19 09:00 10/16/19 08:59 07/18/19 09:27 Hydralazine HCl (Apresoline) 25 mg Q6H PRN GT SBP > 160 07/17/19 10:15 10/15/19 10:14 Lisinopril (PriniviL) 10 mg DAILY GT 07/18/19 09:00 08/17/19 08:59 07/18/19 09:27 Magnesium Hydroxide (Mom) 30 ml HSPRN PRN ORAL Constipation 07/17/19 10:15 08/16/19 10:14 Multivitamins (Multivitamins) 1 tab DAILY GT 07/18/19 09:00 08/17/19 08:59 07/18/19 09:26 Ondansetron HCl (Zofran) 4 mg Q6H PRN IVP Nausea & Vomiting 07/17/19 10:15 08/16/19 10:14 Pantoprazole (Protonix) 40 mg EVERY 12 HOURS IV 07/17/19 21:00 08/16/19 20:59 07/18/19 22:13 Piperacillin Sod/ Tazobactam Sod 3.375 gm/Dextrose 110 ml @ 27.5 mls/hr EVERY 8 HOURS IVPB 07/17/19 14:00 07/22/19 13:59 07/18/19 22:13 Polyethylene Glycol (Miralax) 17 gm DAILYPRN PRN ORAL Constipation 07/17/19 10:15 08/16/19 10:14 Potassium Chloride (K-Dur) 20 meq DAILY GT 07/18/19 09:00 10/16/19 08:59 07/18/19 09:26 Tamsulosin HCl (Flomax) 0.4 mg DAILY ORAL 07/18/19 09:00 08/17/19 08:59 07/18/19 09:27 Thiamine HCl (Vitamin B1) 100 mg DAILY GT 07/18/19 09:00 08/17/19 08:59 07/18/19 09:27 Tramadol HCl (Ultram) 50 mg Q8H PRN ORAL Severe Pain (Pain Scale 7-10) 07/17/19 16:45 07/24/19 16:44 Vancomycin HCl (Vanco rx to dose) 1 ea DAILY PRN MISC Per rx protocol 07/17/19 12:15 08/16/19 12:14 Vancomycin HCl 500 mg/Sodium Chloride 110 ml @ 110 mls/hr Q12HR@0500,1700 IVPB 07/17/19 17:00 07/22/19 16:59 07/18/19 16:58 Bonny Rincon MD July 18, 2019 22:18
[2019-07-19] VITALS: BP 104/59
--- NOTE | 2019-07-19 00:29 | Consultation ---
DATE OF CONSULTATION: 07/18/2019 INFECTIOUS DISEASE CONSULTATION CONSULTING PHYSICIAN: Bonny Rincon MD. ATTENDING PHYSICIAN: Darion Hyatt MD. REFERRING PHYSICIAN: Russell Yee DO. REASON FOR CONSULTATION: Sepsis, pneumonia, leukocytosis, fevers, possible aspiration pneumonia, possible COVID-19 virus infection. CHIEF COMPLAINT: Patient's chief complaint coming in to the hospital is GI bleeding and coffee-ground emesis. HISTORY OF PRESENT ILLNESS: This is a 73-year-old male who is not a good historian, who presents to [facility] with fevers, leukocytosis, sepsis. Patient has pneumonia. Patient has been ruled out for COVID-19 virus infection, but also is at high risk for aspiration and healthcare-acquired pneumonia with GI bleed and coffee-grounds emesis. Rule out community-acquired pneumonia with sepsis. Infectious Disease consultation is requested. I saw the patient yesterday and placed the patient on Vanco and Zosyn. Workup shows patient has gram-positive bacteremia. Patient really cannot add to this history. Patient was continued on Vanco and Zosyn for now for sepsis, bacteremia, pneumonia. Patient is on isolation for COVID-19 virus pneumonia and infection also. Case discussed with Dr. Yee yesterday. REVIEW OF SYSTEMS: CONSTITUTIONAL: I do not believe he has central line or Manriquez. He has generalized fatigue. Opens his eyes, responsive. No obvious focal weakness. HEAD AND NECK: No head pain or neck pain. CARDIAC: No chest pain or pressors. GASTROINTESTINAL: He came in with GI bleed. No nausea, vomiting, or diarrhea. GENITOURINARY: I did not see a Manriquez. PULMONARY: He has some cough and congestion. SKIN: No rash or itching. EXTREMITIES: No pain. NEUROLOGIC: No seizure activity. PAST MEDICAL HISTORY: Patient has past medical history of dementia, dysphagia, G-tube, PEG, COPD, hypertension, depression, PVCs, GERD, functional quadriplegia, failure to thrive, sacral wound, GI bleed, hematemesis. ALLERGIES: No known drug allergies. SOCIAL HISTORY: Negative for smoking, alcohol, or drug abuse. FAMILY HISTORY: Noncontributory, negative for tuberculosis or cancer. MEDICATIONS: Upon reviewing the MAR, he is on following medications on amlodipine, finasteride, lisinopril, potassium. He is also on thiamine, multivitamins, ascorbic acid, pantoprazole, vancomycin, Zosyn, acetaminophen, bisacodyl, MiraLAX, Zofran. Outside medications noted and reconciliated. PHYSICAL EXAMINATION: VITAL SIGNS: Temperature is 98.2, pulse rate 89, respiratory rate 16, blood pressure 106/60, saturation 98% on 2 liters. T-max 100.9. Pulse rate 124 on admission. GENERAL: Weak, responsive. HEAD AND NECK: Oral exam, no thrush. Eye exam, no icterus. Normocephalic. Neck is supple. No JVD. HEART: Regular. No gallop or murmur. No friction rub. ABDOMEN: Soft. Positive bowel sounds. Nontender. No organomegaly. LUNGS: Few bilateral rhonchi with rales at bases. SKIN: No rash. MUSCULOSKELETAL: No effusion. No septic arthritis. Legs are without cellulitis. PERIPHERAL VASCULAR: No cyanosis or gangrene. GENITOURINARY: I do not see a Manriquez. No CVA tenderness. LINE SITES: Without phlebitis. NEUROLOGIC: Generalized weakness, responsive. Alert. LABORATORY DATA: White count 11.2, hemoglobin 7.6. White count on admission was 18.7. Creatinine 0.8. LFTs are noted. UA was negative. Blood cultures with multiple bottles of gram-positive cocci in clusters. Identification is pending. IMAGING STUDIES: Chest x-ray shows a right lower lobe infiltrate, likely pneumonia. ASSESSMENT AND PLAN: 1. Patient has gram-positive bacteremia with sepsis, fevers, leukocytosis, SIRS criteria, tachycardia. Patient had coffee-ground emesis high likelihood for aspiration healthcare-acquired pneumonia versus community-acquired pneumonia; however, also being ruled out for COVID-19 by infection pneumonia. At this time, we will continue empiric therapy with Vanco and Zosyn for MRSA gram-negative anaerobic coverage. Continue Vanco and Zosyn for gram-positive bacteremia and pneumonia including aspiration, healthcare-acquired pneumonia, community-acquired pneumonia. No indication hydroxychloroquine. Await the COVID-19 virus testing. Continue isolation for possible COVID-19 virus and pneumonia. Continue Vanco and Zosyn for sepsis, also leukocytosis, fevers, pending workup for the pneumonia. I would identify the gram-positive organism in the blood and the bacteremia. If not ordered, we will get echo and surveillance blood cultures. Continue Vanco and Zosyn for now. 2. GI bleed and coffee-ground emesis. Treatment per GI and Surgery. 3. Patient has multiple wounds, but did not look like acutely infected. Continue wound care per Surgery. 4. Anemia and GI bleed. 5. Dementia. 6. Dysphagia, G-tube, and aspiration risk. 7. COPD. 8. Hypertension. 9. Depression. 10. PVCs. 11. GERD. 12. Quadriplegia. 13. Failure to thrive. 14. Continue treatment per primary consultants. 15. No known drug allergies. 16. Social history is negative. 17. Family history is noncontributory. 18. MAR was noted. 19. Case discussed with RN. Bonny Rincon M.D. DR: MICHAEL JOB#: [id number] CC: BELEM
[2019-07-19 04:00] VITALS: BP 91/68
[2019-07-19 05:01] LABS: BASOPHILS % (AUTO) 1.4 % (0.0-2.0); EOSINOPHILS % (AUTO) 5.3 % (0.0-3.0); HEMATOCRIT 23.5 % (42.0-52.0); LYMPHOCYTES % (AUTO) 24.5 % (20.0-45.0); MEAN CORPUSCULAR VOLUME 90 FL (80-99); MONOCYTES % (AUTO) 10.6 % (1.0-10.0); NEUTROPHILS % (AUTO) 58.2 % (45.0-75.0); PLATELET COUNT 381 K/UL (150-450); RED BLOOD COUNT 2.62 M/UL (4.70-6.10); WHITE BLOOD COUNT 6.7 K/UL (4.8-10.8)
[2019-07-19 05:12] LABS: ANION GAP 11 mmol/L (5-15); BLOOD UREA NITROGEN 16 mg/dL (7-18); CALCIUM 9.5 MG/DL (8.5-10.1); CARBON DIOXIDE 24 MMOL/L (21-32); CHLORIDE 106 MMOL/L (98-107); CREATININE 0.8 MG/DL (0.55-1.30); POTASSIUM 3.7 MMOL/L (3.5-5.1); SODIUM 141 MMOL/L (136-145)
[2019-07-19] MEDS: Vancomycin 1gm/D5W 275ml IVPB SCH ×4 (06:12→17:38)
[2019-07-19] MEDS: Piperacillin/Tazobactam 3.375 GM in D5W 110 ML IVPB SCH ×3 (06:56→22:27)
--- NOTE | 2019-07-19 07:30 | NUR ---
HAND-OFF: Report given to ANTOINETTE Blair.
[2019-07-19 08:00] VITALS: BP 105/57
--- NOTE | 2019-07-19 08:21 | NUR ---
NURSE NOTES: Left a message to Dr Rincon' office regarding negative covid result. Awaiting for a callback. Addendum: 07/19/19 at 1212 by Rossy Alanis RN Dr maurer to re-swab the pt Addendum: 07/19/19 at 1216 by Rossy Alanis RN Per tila AGUILAR re-swab. DC covid isolation
--- NOTE | 2019-07-19 08:53 | Diagnostic Imaging Report ---
Indication: Shortness of breath Technique: One view of the chest Comparison: 07/17/2019 Findings: Reticular right lung reticular infiltrate with some associated atelectasis is again demonstrated, probably not significant changed allowing for slight projectional differences. The left lung bilateral pleural spaces remain clear. The heart size is normal. Impression: Unchanged right lung reticular infiltrate and associated atelectasis, over 2 days
[2019-07-19] MEDS: Lisinopril 20mg tab GT SCH (09:00)
[2019-07-19] MEDS: Ascorbic Acid 500mg tab GT SCH ×2 (09:37→17:38)
[2019-07-19] MEDS: Tamsulosin 0.4mg cap ORAL SCH (09:39)
[2019-07-19] MEDS: Thiamine 100mg tab GT SCH (09:39)
[2019-07-19] MEDS: Pantoprazole Inj IV SCH ×2 (09:40→21:57)
--- NOTE | 2019-07-19 09:41 | General Progress Note ---
Assessment/Plan Assessment/Plan: 73-year-old male with PMH of advanced dementia (bedbound, nonverbal, PEG dependent at baseline), dysphasia s/p PEG tube, COPD, HTN, depression, PVCs, GERD, functional quadriplegia, adult failure to thrive, sacral ulcer who presents from rehab facility for hematemesis. On admission pt was noted to have temperature of 100.9 rectally, rhonchorous cough. CXR performed which showed RLL infiltrate. Patient admitted for further treatment and evaluation. #Sepsis likely 2/2 #Aspiration PNA #HCAP #Lactic acidosis -resolved -cont. in-pt medical care -COVID PCR negative x1, will likely need 2nd for return to [place], d/w CM, CM to call to determine requirements -cont COVID-19 precautions (droplet/contact) for now -CXR w/RLL infiltrate -BCx prelim w/GPC in clusters, liekly contaminant -repeat BCx ordered -f/u w/sensitivities -ID following: cont. vanc and zosyn #Hematemesis - improved -no further episodes of hematemesis noted -Hgb stable on admission -cont to monitor H&H -transfuse for hgb<7 -Protonix, IVF -occult pending -GI following #Transaminitis - resolved -likely elevated due to sepsis -no abd pain on palpation -GI following #Hx of HTN -cont lisinopril #Advance dementia- bed bound, PEG dependent #Functional quadriplegia #Depression #Anemia of chronic disease- stable -nutrition consulted for tube feeds #Sacral wound #Right foot Ulcer -Wound care consulted, recs appreciated DVT PPx: SCDs given acute bleed Time spent on encounter: 37 mins, 22 mins spent on counseling, coordination of care, d/w RN, Dr. Romero, Dr. Rincon, Gretchen. Time of note doesn't reflect time of encounter. Subjective Allergies: Coded Allergies: No Known Allergies (Unverified , 08/20/18) Subjective Follow-up for hematemesis. COVID negative x1. BCx positive for GPC 1/2. No acute events overnight. 12 pt ROS neg limited, patient aphasic. Patient appears to be in no distress. Objective Last 24 Hour Vital Signs Date Time Temp Pulse Resp B/P (MAP) Pulse Ox O2 Delivery O2 Flow Rate FiO2 07/19/19 04:00 68 07/19/19 04:00 98.1 72 16 91/68 (76) 93 07/19/19 03:53 Nasal Cannula 2.0 07/19/19 00:00 Nasal Cannula 2.0 07/19/19 00:00 98.1 82 15 104/59 (74) 97 07/19/19 00:00 76 07/18/19 21:00 Nasal Cannula 2.0 07/18/19 20:39 66 07/18/19 20:37 98.2 89 16 106/68 (81) 98 89 07/18/19 16:00 102 07/18/19 16:00 97.0 94 20 92/64 (73) 95 07/18/19 12:00 87 07/18/19 12:00 99.1 99 20 125/63 (83) 95 Intake and Output 07/18/19 07/19/19 19:00 07:00 Intake Total 350 ml 183.708 ml Output Total 4 ml Balance 346 ml 183.708 ml Intake Free Water 200 ml IV Total 183.708 ml Tube Feeding 90 ml Other 60 ml Output Urine Total 4 ml # Voids 3 Laboratory Tests 07/19/19 04:45: White Blood Count 6.7, Red Blood Count 2.62L, Hemoglobin 8.0L, Hematocrit 23.5L , Mean Corpuscular Volume 90, Mean Corpuscular Hemoglobin 30.5, Mean Corpuscular Hemoglobin Concent 33.9, Red Cell Distribution Width 14.0, Platelet Count 381, Mean Platelet Volume 5.8L, Neutrophils (%) (Auto) 58.2, Lymphocytes ( %) (Auto) 24.5, Monocytes (%) (Auto) 10.6H, Eosinophils (%) (Auto) 5.3H, Basophils (%) (Auto) 1.4, Sodium Level 141, Potassium Level 3.7, Chloride Level 106, Carbon Dioxide Level 24, Anion Gap 11, Blood Urea Nitrogen 16, Creatinine 0.8, Estimat Glomerular Filtration Rate > 60, Glucose Level 114H, Calcium Level 9.5, Vancomycin Level Trough 7.1 Height (Feet): 5 Height (Inches): 10.00 Weight (Pounds): 145 Objective General Appearance: NAD, non-verbal at b/l, awake, thin HEENT: NCAT, EOMI Neck: normal alignment, supple Respiratory/Chest: Coarse rhonchi heard throughout all lung blanco, no accessory muscle usage Cardiovascular/Chest: normal rate, regular rhythm Abdomen: non tender, soft, PEG tube in place, c/d/i Extremities: contracted b/l UE and LE, no edema appreciated Neurologic: Demented, nonverbal Musculoskeletal: atrophy Russell Yee M.D. July 19, 2019 09:41
--- NOTE | 2019-07-19 10:04 | General Progress Note ---
Assessment/Plan Assessment/Plan: 1. History of chronic anemia. 2. H. pylori negative gastritis. 3. Hiatal hernia. 4. Hemorrhoids. 5. Dementia. 6. Hypertension. 7. UTI. 8. Hypercholesteremia. 9. Patient has dysphagia with a G-tube. 10 GIB 11. elevated LFTS drop in H&H without active bleed stool ob pending ppi transfuse to keep HGB above 7.5 GI procedures on hold for now abx per id positive blood cultures add lactulose GTF Subjective ROS Limited/Unobtainable: No Allergies: Coded Allergies: No Known Allergies (Unverified , 08/20/18) Objective Last 24 Hour Vital Signs Date Time Temp Pulse Resp B/P (MAP) Pulse Ox O2 Delivery O2 Flow Rate FiO2 07/19/19 09:00 105/57 07/19/19 09:00 80 105/57 07/19/19 04:00 68 07/19/19 04:00 98.1 72 16 91/68 (76) 93 07/19/19 03:53 Nasal Cannula 2.0 07/19/19 00:00 Nasal Cannula 2.0 07/19/19 00:00 98.1 82 15 104/59 (74) 97 07/19/19 00:00 76 07/18/19 21:00 Nasal Cannula 2.0 07/18/19 20:39 66 07/18/19 20:37 98.2 89 16 106/68 (81) 98 89 07/18/19 16:00 102 07/18/19 16:00 97.0 94 20 92/64 (73) 95 07/18/19 12:00 87 07/18/19 12:00 99.1 99 20 125/63 (83) 95 Intake and Output 07/18/19 07/19/19 19:00 07:00 Intake Total 350 ml 183.708 ml Output Total 4 ml Balance 346 ml 183.708 ml Intake Free Water 200 ml IV Total 183.708 ml Tube Feeding 90 ml Other 60 ml Output Urine Total 4 ml # Voids 3 Laboratory Tests 07/19/19 04:45: White Blood Count 6.7, Red Blood Count 2.62L, Hemoglobin 8.0L, Hematocrit 23.5L , Mean Corpuscular Volume 90, Mean Corpuscular Hemoglobin 30.5, Mean Corpuscular Hemoglobin Concent 33.9, Red Cell Distribution Width 14.0, Platelet Count 381, Mean Platelet Volume 5.8L, Neutrophils (%) (Auto) 58.2, Lymphocytes ( %) (Auto) 24.5, Monocytes (%) (Auto) 10.6H, Eosinophils (%) (Auto) 5.3H, Basophils (%) (Auto) 1.4, Sodium Level 141, Potassium Level 3.7, Chloride Level 106, Carbon Dioxide Level 24, Anion Gap 11, Blood Urea Nitrogen 16, Creatinine 0.8, Estimat Glomerular Filtration Rate > 60, Glucose Level 114H, Calcium Level 9.5, Vancomycin Level Trough 7.1 Height (Feet): 5 Height (Inches): 10.00 Weight (Pounds): 145 General Appearance: no apparent distress EENT: normal ENT inspection Neck: supple Cardiovascular: normal rate Respiratory/Chest: decreased breath sounds Abdomen: normal bowel sounds, non tender, soft Extremities: non-tender Ramiro Romero MD July 19, 2019 10:04
--- NOTE | 2019-07-19 11:44 | NUR ---
RD ASSESSMENT & RECOMMENDATIONS SEE CARE ACTIVITY FOR COMPLETE ASSESSMENT DAILY ESTIMATED NEEDS: Needs based on Wounds, wasting/ 49kg 30-35 kcals/kg 3416-0246 total kcals 1.25-2.0 g protein/kg 61-98 g total protein 25-30 mL/kg 4434-1737 total fluid mLs NUTRITION DIAGNOSIS: * Swallowing difficulty R/T dysphagia as evidenced by pt is PEG dep. * Increased kcal/prot intake needs R/T wound healing as evidenced by pt admitted wounds including deep unstageable wound @ right lateral foot distal malleolus and DTI @ sacrum. * Altered nutrition related lab values R/T prediabetes as evidenced by A1C of 6.0. CURRENT TF:Vital AF 1.2 @ 60ml/hr x 24 hrs ENTERAL NUTRITION RECOMMENDATIONS: Osmolite 1.2 @ 60ml/hr x 24 hrs to provide 1440ml, 1728kcal, 80g prot, 1181ml free water * Rec Osmolite 1.2, non fiber containing TF for easy tolerance given possible GIB. * Start @30ml/hr, advance as tolerated 10ml/hr q4-6 hrs to goal * TF @ goal will provide 35kcal/1.63g prot per kg * HOB over 30 degrees * Water flush of 100ml q 8 hrs without IVF ADDITIONAL RECOMMENDATIONS: * CALIBRATED BEDSCALE WT wt in May 2019: 108 lbs vs current EMR wt of 145lbs. * Wound care: continue Vit C Add YUNIOR in 4oz H2O via GT BID * Monitor lytes, replete as needed . .
[2019-07-19 12:00] VITALS: BP 128/66
[2019-07-19] MEDS: Lactulose 20gm/30ml UDC ORAL SCH ×2 (13:29→17:38)
--- NOTE | 2019-07-19 13:29 | NUR ---
DISCHARGE PLANNING: [facility] A COVID + FACILITY FACILITY IS DIRECTED BY [facility] REQUIRING TWO COVID-19 NEGATIVE TEST MAY TAKE PATIENT BACK POSITIVE REPEAT COVID-19 TODAY [facility] ([facility]) F: [phone] T:[phone]
--- NOTE | 2019-07-19 15:42 | Surgery Progress Note ---
Surgery Progress Note Subjective Additional Comments afebrile, HD Stable leukocytosis resolving no n/v/f/c comfortable Objective Last 24 Hour Vital Signs Date Time Temp Pulse Resp B/P (MAP) Pulse Ox O2 Delivery O2 Flow Rate FiO2 07/19/19 12:00 98.5 89 22 128/66 (86) 98 07/19/19 11:46 73 07/19/19 09:00 105/57 07/19/19 09:00 80 105/57 07/19/19 09:00 Nasal Cannula 2.0 07/19/19 08:00 98.2 80 20 105/57 (73) 99 07/19/19 07:54 68 07/19/19 04:00 68 07/19/19 04:00 98.1 72 16 91/68 (76) 93 07/19/19 03:53 Nasal Cannula 2.0 07/19/19 00:00 Nasal Cannula 2.0 07/19/19 00:00 98.1 82 15 104/59 (74) 97 07/19/19 00:00 76 07/18/19 21:00 Nasal Cannula 2.0 07/18/19 20:39 66 07/18/19 20:37 98.2 89 16 106/68 (81) 98 89 07/18/19 16:00 102 07/18/19 16:00 97.0 94 20 92/64 (73) 95 I&O Intake and Output 07/18/19 07/19/19 19:00 07:00 Intake Total 350 ml 183.708 ml Output Total 4 ml Balance 346 ml 183.708 ml Intake Free Water 200 ml IV Total 183.708 ml Tube Feeding 90 ml Other 60 ml Output Urine Total 4 ml # Voids 3 Dressing: dry Wound: clean Cardiovascular: RSR Respiratory: clear Abdomen: soft, non-tender, present bowel sounds Extremities: no tenderness, no cyanosis Laboratory Tests Test 07/19/19 04:45 White Blood Count 6.7 K/UL (4.8-10.8) Red Blood Count 2.62 M/UL (4.70-6.10) L Hemoglobin 8.0 G/DL (14.2-18.0) L Hematocrit 23.5 % (42.0-52.0) L Mean Corpuscular Volume 90 FL (80-99) Mean Corpuscular Hemoglobin 30.5 PG (27.0-31.0) Mean Corpuscular Hemoglobin Concent 33.9 G/DL (32.0-36.0) Red Cell Distribution Width 14.0 % (11.6-14.8) Platelet Count 381 K/UL (150-450) Mean Platelet Volume 5.8 FL (6.5-10.1) L Neutrophils (%) (Auto) 58.2 % (45.0-75.0) Lymphocytes (%) (Auto) 24.5 % (20.0-45.0) Monocytes (%) (Auto) 10.6 % (1.0-10.0) H Eosinophils (%) (Auto) 5.3 % (0.0-3.0) H Basophils (%) (Auto) 1.4 % (0.0-2.0) Sodium Level 141 MMOL/L (136-145) Potassium Level 3.7 MMOL/L (3.5-5.1) Chloride Level 106 MMOL/L (98-107) Carbon Dioxide Level 24 MMOL/L (21-32) Anion Gap 11 mmol/L (5-15) Blood Urea Nitrogen 16 mg/dL (7-18) Creatinine 0.8 MG/DL (0.55-1.30) Estimat Glomerular Filtration Rate > 60 mL/min (>60) Glucose Level 114 MG/DL (74-106) H Calcium Level 9.5 MG/DL (8.5-10.1) Vancomycin Level Trough 7.1 ug/mL (5.0-12.0) Plan Problems: (1) GI bleed Assessment & Plan: Patient noted to have coffee-ground emesis and melena. Hemoglobin noted and stable No active bleeding noted at this time No gross blood on rectal Trend labs will monitor Appreciate GI input (2) Decubitus skin ulcer Assessment & Plan: Patient presents on admission with multiple skin concerns. Patient identified to have a 2 cm x 1 cm x 2 mm deep unstageable right lateral foot distal malleolus decubitus ulcer with slough in the base raised edges periwound with mild erythema no active drainage no acute active infectious process no foul odor. Patient identified to have deep tissue injury around the area of the issue him and sacrum. Prior healing skin changes identified. No active drainage no fluctuance. Overall patient very deconditioned and malnutrition. Albumin low. Currently sepsis Nutritional optimization very important Treatment plan: Wash right foot daily with normal saline. Apply Thera honey followed by gauze and foam dressing to the right foot ulcer change daily and as needed saturation Apply skin protectant and foam dressing to the bilateral ischio and sacral region change every 3 days and as needed saturation Monitor for incontinence Change accordingly Turn every 2 hours Offload pressure with air mattress pressure release Offload heels with pillow under calves We will follow with recommendations thank you for let me participate patient's care (3) Severe malnutrition (4) Failure to thrive syndrome, adult (5) Sepsis Assessment & Plan: Febrile, leukocytosis, lactic acidosis. Abnormal labs. Lactic acidosis improving with fluid resuscitation UA noted pending micro Broad-spectrum antibiotics per infectious disease. Continue with current care and plan will follow with recs (6) Elevated LFTs (7) Suspected COVID-19 virus infection Assessment & Plan: Persistent infiltrate in right lower lobe, likely pneumonia. Recommend correlation with CT to exclude mass lesion. Reji Guy July 19, 2019 15:42
[2019-07-19 16:00] VITALS: BP 102/55
--- NOTE | 2019-07-19 16:16 | NUR ---
CASE MANAGEMENT: INITIAL REVIEW 73YR OLD BIBA FROM [facility] CC: GASTROINTESTINAL BLEED; VOMITING COFFEE GROUND EMESIS SI:GASTROINTESTINAL HEMORRHAGE . COVID-19 R/O . PNA 99.7 124 22 133/71 96% ON RA WBC 18.7 H/H 9.9/29.4 BUN 47 BG 117 AST/ALT 46/125 ALKP 144 LACTIC ACID 2.7 IS:IVF NS BOLUS X2 IV ROCEPHIN X1 IV ZITHROMAX X1 TYLENOL GT X1 CHEST X-RAY- Persistent infiltrate in right lower lobe, likely pneumonia. Recommend CT to exclude mass lesion. \: 2E MED SURG UNIT DCP : [facility] WHEN STABLE CASE MANAGEMENT: REVIEW 07/19/19 SI:GASTROINTESTINAL HEMORRHAGE . PNA 98.2 80 20 105/57 99% ON 2L NC H/H 8/23.5 BG 114 IS:IV ZOSYN TID IV VANCOMYCIN BID LACTULOSE PO TID IV PROTONIX BID PROSCAR GT QD K-DUR GT QD \: 2E MED SURG UNIT DCP : [facility] WHEN STABLE PLAN: COVID-19 NEGATIVE WAITING SECOND COVID-19 NEGATIVE PATIENT WAS COVID EXPOSED AND FACILITY IS UNDER DIRECTION OF [facility] COVID-19 -IN PROCESS
--- NOTE | 2019-07-19 19:35 | NUR ---
NURSE NOTES: Received report from ANTOINETTE Hernandez. Patient is on bed, awake, alert and oriented x 1. Patient is on regular diet, softv eas Addendum: 07/19/19 at 1949 by Hayde Venegas RN suft easy chew., thin liquids. dealer development manager is in placed, shows sins rhythm with no chest pain reported. Patient is on room air, no shortness of breath noted at this time. On fall, aspiration and seizure precaution, padded side rails. Safety measures are in placed, bed in low and locked position. Bed alarm is on, side rails up x 2. Call light and bedside table within reach. Will continue plan of care. Addendum: 07/19/19 at 1950 by Hayde Venegas RN wrong patient.
--- NOTE | 2019-07-19 19:50 | NUR ---
NURSE NOTES: Received report from ANTOINETTE Blair. Patient is on bed, alert, oriented x 0, aphasic and obtunded. Patient is on G-tube, Vilat AF 1.2 @ 60 cc/hour, flushing of 100cc every 6 hours. air sampling and monitoring is in placed, shows sinus rhythm with no chest pain or discomfort reported. Patient is on oxygen via nasal cannula @ 2lpm and no shortnedd of breath at this time.IV site is on right AC G-20 saline lock that is intact and patent. Safety measures are in placed, bed in low and locked position, bed alarm is on. Will continue plan of care.
--- NOTE | 2019-07-19 19:55 | NUR ---
HAND-OFF: Report given to ANTOINETTE Lemons. Pt in stable condition, endorsed plan of care.
[2019-07-19 20:00] VITALS: BP 109/61
[2019-07-20] VITALS: BP 111/66
[2019-07-20 04:00] VITALS: BP 120/80
[2019-07-20] MEDS: Piperacillin/Tazobactam 3.375 GM in D5W 110 ML IVPB SCH ×3 (06:11→21:46)
[2019-07-20] MEDS: Vancomycin 1gm/D5W 275ml IVPB SCH ×2 (06:11)
--- NOTE | 2019-07-20 07:15 | NUR ---
Received report from ANTOINETTE Lock. in bed, awake, confused, nonverbal, contracted to bilateral legs. PEG tube feeding infusing with Vital AF 1.2 running at 60cc/hr. IV RAC intact and patent SL. Patient is stable, no pain or respiratory distress noted. Bed is on lowest level with bedside rails up x3. Brakes engaged for safety, call light is within reach. Will continue with the plan of care.
[2019-07-20 08:00] VITALS: BP 144/84
--- NOTE | 2019-07-20 08:03 | NUR ---
HAND-OFF: Report given to ANTOINETTE Eli. Patient is in stable condition. Plan of care endorsed.
[2019-07-20 08:05] LABS: HEMATOCRIT 23.2 % (42.0-52.0); HEMOGLOBIN 7.8 G/DL (14.2-18.0); MEAN CORPUSCULAR VOLUME 90 FL (80-99); PLATELET COUNT 421 K/UL (150-450); RED BLOOD COUNT 2.57 M/UL (4.70-6.10); RED CELL DISTRIBUTION WIDTH 14.2 % (11.6-14.8); WHITE BLOOD COUNT 5.9 K/UL (4.8-10.8)
[2019-07-20 08:15] LABS: ANION GAP 10 mmol/L (5-15); BLOOD UREA NITROGEN 13 mg/dL (7-18); CALCIUM 9.2 MG/DL (8.5-10.1); CARBON DIOXIDE 24 MMOL/L (21-32); CHLORIDE 104 MMOL/L (98-107); CREATININE 0.7 MG/DL (0.55-1.30); POTASSIUM 3.6 MMOL/L (3.5-5.1); SODIUM 138 MMOL/L (136-145)
--- NOTE | 2019-07-20 08:40 | General Progress Note ---
Assessment/Plan Assessment/Plan: 1. History of chronic anemia. 2. H. pylori negative gastritis. 3. Hiatal hernia. 4. Hemorrhoids. 5. Dementia. 6. Hypertension. 7. UTI. 8. Hypercholesteremia. 9. Patient has dysphagia with a G-tube. 10 GIB 11. elevated LFTS drop in H&H without active bleed stool ob pending ppi transfuse to keep HGB above 7.5 GI procedures on hold for now abx per id positive blood cultures on lactulose GTF will fu Subjective Allergies: Coded Allergies: No Known Allergies (Unverified , 08/20/18) Objective Last 24 Hour Vital Signs Date Time Temp Pulse Resp B/P (MAP) Pulse Ox O2 Delivery O2 Flow Rate FiO2 07/20/19 04:00 98.8 68 19 120/80 (93) 95 07/20/19 04:00 62 07/20/19 00:00 97.2 61 18 111/66 (81) 98 07/20/19 00:00 68 07/19/19 21:00 Nasal Cannula 2.0 07/19/19 20:00 96.6 74 18 109/61 (77) 98 07/19/19 20:00 68 07/19/19 16:00 72 07/19/19 16:00 98.4 76 20 102/55 (71) 99 07/19/19 12:00 98.5 89 22 128/66 (86) 98 07/19/19 11:46 73 07/19/19 09:00 105/57 07/19/19 09:00 80 105/57 07/19/19 09:00 Nasal Cannula 2.0 Intake and Output 07/19/19 07/20/19 19:00 07:00 Intake Total 753.708 ml 580 ml Balance 753.708 ml 580 ml Intake Free Water 100 ml IV Total 183.708 ml Tube Feeding 570 ml 480 ml # Voids 5 Laboratory Tests 07/20/19 05:20: Stool Occult Blood [Pending] 07/20/19 07:05: White Blood Count 5.9, Red Blood Count 2.57L, Hemoglobin 7.8L, Hematocrit 23.2L , Mean Corpuscular Volume 90, Mean Corpuscular Hemoglobin 30.5, Mean Corpuscular Hemoglobin Concent 33.8, Red Cell Distribution Width 14.2, Platelet Count 421, Mean Platelet Volume 5.7L, Neutrophils (%) (Auto) , Lymphocytes (%) ( Auto) , Monocytes (%) (Auto) , Eosinophils (%) (Auto) , Basophils (%) (Auto) , Neutrophils % (Manual) [Pending], Lymphocytes % (Manual) [Pending], Platelet Estimate [Pending], Platelet Morphology [Pending], Sodium Level 138, Potassium Level 3.6, Chloride Level 104, Carbon Dioxide Level 24, Anion Gap 10, Blood Urea Nitrogen 13, Creatinine 0.7, Estimat Glomerular Filtration Rate > 60, Glucose Level 147H, Calcium Level 9.2 Height (Feet): 5 Height (Inches): 10.00 Weight (Pounds): 129 General Appearance: no apparent distress EENT: PERRL/EOMI Neck: supple Cardiovascular: normal rate Respiratory/Chest: decreased breath sounds Abdomen: normal bowel sounds, non tender, soft Extremities: non-tender Ramiro Romero MD July 20, 2019 08:40
[2019-07-20] MEDS: Lactulose 20gm/30ml UDC ORAL SCH ×3 (09:02→17:24)
[2019-07-20] MEDS: Ascorbic Acid 500mg tab GT SCH ×2 (09:05→17:24)
[2019-07-20] MEDS: Thiamine 100mg tab GT SCH (09:06)
[2019-07-20] MEDS: Lisinopril 20mg tab GT SCH (09:06)
[2019-07-20] MEDS: Tamsulosin 0.4mg cap ORAL SCH (09:07)
[2019-07-20] MEDS: Pantoprazole Inj IV SCH ×2 (09:08→20:51)
--- NOTE | 2019-07-20 09:24 | General Progress Note ---
Assessment/Plan Assessment/Plan: 73-year-old male with PMH of advanced dementia (bedbound, nonverbal, PEG dependent at baseline), dysphasia s/p PEG tube, COPD, HTN, depression, PVCs, GERD, functional quadriplegia, adult failure to thrive, sacral ulcer who presents from rehab facility for hematemesis. On admission pt was noted to have temperature of 100.9 rectally, rhonchorous cough. CXR performed which showed RLL infiltrate. Patient admitted for further treatment and evaluation. #Sepsis likely 2/2 #Aspiration PNA #HCAP #Lactic acidosis -resolved #MRSA Bacteremia -cont. in-pt medical care -COVID PCR negative x1, will likely need 2nd for return to [place], d/w CM, CM to call to determine requirements -cont COVID-19 precautions (droplet/contact) for now -CXR w/RLL infiltrate -BCx prelim w/GPC in clusters, repeat BCx negative -2d echo negative for vegetations -Cardio consulted for CLAUDIO -ID following: cont. vanc and zosyn #Hematemesis - improved -no further episodes of hematemesis noted -Hgb stable on admission -cont to monitor H&H -transfuse for hgb<7 -Protonix -d/w GI, ok to start dvt ppx #Transaminitis - resolved -likely elevated due to sepsis -no abd pain on palpation -GI following #Hx of HTN -cont lisinopril #Advance dementia- bed bound, PEG dependent #Functional quadriplegia #Depression #Anemia of chronic disease- stable -nutrition consulted for tube feeds #Sacral wound #Right foot Ulcer -Wound care consulted, recs appreciated DVT PPx: lovenox Time spent on encounter: 35 mins, 21 mins spent on counseling, coordination of care, d/w RN, Dr. Romero, Dr. Christine, Dr. Rincon. Time of note doesn't reflect time of encounter. Subjective Allergies: Coded Allergies: No Known Allergies (Unverified , 08/20/18) Subjective Follow-up for hematemesis. COVID negative x1. BCx positive for MRSA 1/2. Repeat negative. 2d echo negative for vegetations. No acute events overnight. 12 pt ROS neg limited, patient aphasic. Patient appears to be in no distress. Objective Last 24 Hour Vital Signs Date Time Temp Pulse Resp B/P (MAP) Pulse Ox O2 Delivery O2 Flow Rate FiO2 07/20/19 09:08 99 144/84 07/20/19 09:06 144/84 07/20/19 08:00 97.7 99 20 144/84 (104) 96 99 07/20/19 04:00 98.8 68 19 120/80 (93) 95 07/20/19 04:00 62 07/20/19 00:00 97.2 61 18 111/66 (81) 98 07/20/19 00:00 68 07/19/19 21:00 Nasal Cannula 2.0 07/19/19 20:00 96.6 74 18 109/61 (77) 98 07/19/19 20:00 68 07/19/19 16:00 72 07/19/19 16:00 98.4 76 20 102/55 (71) 99 07/19/19 12:00 98.5 89 22 128/66 (86) 98 07/19/19 11:46 73 Intake and Output 07/19/19 07/20/19 19:00 07:00 Intake Total 753.708 ml 580 ml Balance 753.708 ml 580 ml Intake Free Water 100 ml IV Total 183.708 ml Tube Feeding 570 ml 480 ml # Voids 5 Laboratory Tests 07/20/19 05:20: Stool Occult Blood [Pending] 07/20/19 07:05: White Blood Count 5.9, Red Blood Count 2.57L, Hemoglobin 7.8L, Hematocrit 23.2L , Mean Corpuscular Volume 90, Mean Corpuscular Hemoglobin 30.5, Mean Corpuscular Hemoglobin Concent 33.8, Red Cell Distribution Width 14.2, Platelet Count 421, Mean Platelet Volume 5.7L, Neutrophils (%) (Auto) , Lymphocytes (%) ( Auto) , Monocytes (%) (Auto) , Eosinophils (%) (Auto) , Basophils (%) (Auto) , Neutrophils % (Manual) [Pending], Lymphocytes % (Manual) [Pending], Platelet Estimate [Pending], Platelet Morphology [Pending], Sodium Level 138, Potassium Level 3.6, Chloride Level 104, Carbon Dioxide Level 24, Anion Gap 10, Blood Urea Nitrogen 13, Creatinine 0.7, Estimat Glomerular Filtration Rate > 60, Glucose Level 147H, Calcium Level 9.2 Height (Feet): 5 Height (Inches): 10.00 Weight (Pounds): 129 Objective General Appearance: NAD, non-verbal at b/l, awake, thin HEENT: NCAT, EOMI Neck: normal alignment, supple Respiratory/Chest: Coarse rhonchi heard throughout all lung blanco, no accessory muscle usage Cardiovascular/Chest: normal rate, regular rhythm Abdomen: non tender, soft, PEG tube in place, c/d/i Extremities: contracted b/l UE and LE, no edema appreciated Neurologic: Demented, nonverbal Musculoskeletal: atrophy Russell Yee M.D. July 20, 2019 09:24
--- NOTE | 2019-07-20 11:27 | Cardiac Electrophysiology PN ---
Subjective Subjective [id number] Objective Last 24 Hour Vital Signs Date Time Temp Pulse Resp B/P (MAP) Pulse Ox O2 Delivery O2 Flow Rate FiO2 07/20/19 09:08 99 144/84 07/20/19 09:06 144/84 07/20/19 09:00 Nasal Cannula 2.0 07/20/19 08:00 97.7 99 20 144/84 (104) 96 99 07/20/19 08:00 88 07/20/19 04:00 98.8 68 19 120/80 (93) 95 07/20/19 04:00 62 07/20/19 00:00 97.2 61 18 111/66 (81) 98 07/20/19 00:00 68 07/19/19 21:00 Nasal Cannula 2.0 07/19/19 20:00 96.6 74 18 109/61 (77) 98 07/19/19 20:00 68 07/19/19 16:00 72 07/19/19 16:00 98.4 76 20 102/55 (71) 99 07/19/19 12:00 98.5 89 22 128/66 (86) 98 07/19/19 11:46 73 Intake and Output 07/19/19 07/20/19 19:00 07:00 Intake Total 753.708 ml 580 ml Balance 753.708 ml 580 ml Intake Free Water 100 ml IV Total 183.708 ml Tube Feeding 570 ml 480 ml # Voids 5 Laboratory Tests Test 07/20/19 05:20 07/20/19 07:05 Stool Occult Blood Pending White Blood Count 5.9 K/UL (4.8-10.8) Red Blood Count 2.57 M/UL (4.70-6.10) L Hemoglobin 7.8 G/DL (14.2-18.0) L Hematocrit 23.2 % (42.0-52.0) L Mean Corpuscular Volume 90 FL (80-99) Mean Corpuscular Hemoglobin 30.5 PG (27.0-31.0) Mean Corpuscular Hemoglobin Concent 33.8 G/DL (32.0-36.0) Red Cell Distribution Width 14.2 % (11.6-14.8) Platelet Count 421 K/UL (150-450) Mean Platelet Volume 5.7 FL (6.5-10.1) L Neutrophils (%) (Auto) % (45.0-75.0) Lymphocytes (%) (Auto) % (20.0-45.0) Monocytes (%) (Auto) % (1.0-10.0) Eosinophils (%) (Auto) % (0.0-3.0) Basophils (%) (Auto) % (0.0-2.0) Differential Total Cells Counted 100 Neutrophils % (Manual) 59 % (45-75) Lymphocytes % (Manual) 31 % (20-45) Monocytes % (Manual) 8 % (1-10) Eosinophils % (Manual) 2 % (0-3) Basophils % (Manual) 0 % (0-2) Band Neutrophils 0 % (0-8) Platelet Estimate Adequate Platelet Morphology Normal Hypochromasia 1+ Anisocytosis 1+ Sodium Level 138 MMOL/L (136-145) Potassium Level 3.6 MMOL/L (3.5-5.1) Chloride Level 104 MMOL/L (98-107) Carbon Dioxide Level 24 MMOL/L (21-32) Anion Gap 10 mmol/L (5-15) Blood Urea Nitrogen 13 mg/dL (7-18) Creatinine 0.7 MG/DL (0.55-1.30) Estimat Glomerular Filtration Rate > 60 mL/min (>60) Glucose Level 147 MG/DL (74-106) H Calcium Level 9.2 MG/DL (8.5-10.1) Microbiology Date/Time Source Procedure Growth Status 07/19/19 04:45 Blood Blood Culture - Preliminary NO GROWTH AFTER 24 HOURS Resulted 07/19/19 04:30 Blood Blood Culture - Preliminary NO GROWTH AFTER 24 HOURS Resulted Ismael Christine MD July 20, 2019 11:27
[2019-07-20 12:00] VITALS: BP 139/77
--- NOTE | 2019-07-20 14:52 | Surgery Progress Note ---
Surgery Progress Note Subjective Additional Comments no acute events labs reviewed Objective Last 24 Hour Vital Signs Date Time Temp Pulse Resp B/P (MAP) Pulse Ox O2 Delivery O2 Flow Rate FiO2 07/20/19 12:00 94 07/20/19 12:00 98.6 94 20 139/77 (97) 99 07/20/19 09:08 99 144/84 07/20/19 09:06 144/84 07/20/19 09:00 Nasal Cannula 2.0 07/20/19 08:00 97.7 99 20 144/84 (104) 96 99 07/20/19 08:00 88 07/20/19 04:00 98.8 68 19 120/80 (93) 95 07/20/19 04:00 62 07/20/19 00:00 97.2 61 18 111/66 (81) 98 07/20/19 00:00 68 07/19/19 21:00 Nasal Cannula 2.0 07/19/19 20:00 96.6 74 18 109/61 (77) 98 07/19/19 20:00 68 07/19/19 16:00 72 07/19/19 16:00 98.4 76 20 102/55 (71) 99 I&O Intake and Output 07/19/19 07/20/19 19:00 07:00 Intake Total 753.708 ml 580 ml Balance 753.708 ml 580 ml Intake Free Water 100 ml IV Total 183.708 ml Tube Feeding 570 ml 480 ml # Voids 5 Cardiovascular: RSR Respiratory: clear Abdomen: soft, non-tender, present bowel sounds Extremities: no edema, no tenderness, no cyanosis Laboratory Tests Test 07/20/19 05:20 07/20/19 07:05 Stool Occult Blood Positive (NEGATIVE) White Blood Count 5.9 K/UL (4.8-10.8) Red Blood Count 2.57 M/UL (4.70-6.10) L Hemoglobin 7.8 G/DL (14.2-18.0) L Hematocrit 23.2 % (42.0-52.0) L Mean Corpuscular Volume 90 FL (80-99) Mean Corpuscular Hemoglobin 30.5 PG (27.0-31.0) Mean Corpuscular Hemoglobin Concent 33.8 G/DL (32.0-36.0) Red Cell Distribution Width 14.2 % (11.6-14.8) Platelet Count 421 K/UL (150-450) Mean Platelet Volume 5.7 FL (6.5-10.1) L Neutrophils (%) (Auto) % (45.0-75.0) Lymphocytes (%) (Auto) % (20.0-45.0) Monocytes (%) (Auto) % (1.0-10.0) Eosinophils (%) (Auto) % (0.0-3.0) Basophils (%) (Auto) % (0.0-2.0) Differential Total Cells Counted 100 Neutrophils % (Manual) 59 % (45-75) Lymphocytes % (Manual) 31 % (20-45) Monocytes % (Manual) 8 % (1-10) Eosinophils % (Manual) 2 % (0-3) Basophils % (Manual) 0 % (0-2) Band Neutrophils 0 % (0-8) Platelet Estimate Adequate Platelet Morphology Normal Hypochromasia 1+ Anisocytosis 1+ Sodium Level 138 MMOL/L (136-145) Potassium Level 3.6 MMOL/L (3.5-5.1) Chloride Level 104 MMOL/L (98-107) Carbon Dioxide Level 24 MMOL/L (21-32) Anion Gap 10 mmol/L (5-15) Blood Urea Nitrogen 13 mg/dL (7-18) Creatinine 0.7 MG/DL (0.55-1.30) Estimat Glomerular Filtration Rate > 60 mL/min (>60) Glucose Level 147 MG/DL (74-106) H Calcium Level 9.2 MG/DL (8.5-10.1) Plan Problems: (1) GI bleed Assessment & Plan: Patient noted to have coffee-ground emesis and melena. Hemoglobin noted and stable No active bleeding noted at this time No gross blood on rectal Trend labs will monitor Appreciate GI input (2) Decubitus skin ulcer Assessment & Plan: Patient presents on admission with multiple skin concerns. Patient identified to have a 2 cm x 1 cm x 2 mm deep unstageable right lateral foot distal malleolus decubitus ulcer with slough in the base raised edges periwound with mild erythema no active drainage no acute active infectious process no foul odor. Patient identified to have deep tissue injury around the area of the issue him and sacrum. Prior healing skin changes identified. No active drainage no fluctuance. Overall patient very deconditioned and malnutrition. Albumin low. Currently sepsis Nutritional optimization very important Treatment plan: Wash right foot daily with normal saline. Apply Thera honey followed by gauze and foam dressing to the right foot ulcer change daily and as needed saturation Apply skin protectant and foam dressing to the bilateral ischio and sacral region change every 3 days and as needed saturation Monitor for incontinence Change accordingly Turn every 2 hours Offload pressure with air mattress pressure release Offload heels with pillow under calves We will follow with recommendations thank you for let me participate patient's care (3) Severe malnutrition (4) Failure to thrive syndrome, adult (5) Sepsis Assessment & Plan: Febrile, leukocytosis, lactic acidosis. Abnormal labs. Lactic acidosis improving with fluid resuscitation UA noted pending micro Broad-spectrum antibiotics per infectious disease. Continue with current care and plan will follow with recs (6) Elevated LFTs (7) Suspected COVID-19 virus infection Assessment & Plan: Persistent infiltrate in right lower lobe, likely pneumonia. Recommend correlation with CT to exclude mass lesion. Reji Guy July 20, 2019 14:52
[2019-07-20 16:00] VITALS: BP 122/73
--- NOTE | 2019-07-20 19:38 | NUR ---
HAND-OFF: Report given to Ron CURRY. Patient is in stable condition.
--- NOTE | 2019-07-20 19:39 | NUR ---
NURSE NOTES: Got report from Sreedhar CURRY. Pt in stable condition. No s/s of distress or discomfort noted. Pt resting in bed comfortably. Bed in low and locked position, call light within reach, bedside table within reach. Continue to monitor.
[2019-07-20 20:00] VITALS: BP 135/81
--- NOTE | 2019-07-20 21:32 | Infectious Diseases Prog Note ---
Assessment/Plan Assessment/Plan ASSESSMENT AND PLAN: 1. mrsa bacteremia, ? endocarditis, aspiration pna/hcap, sepsis, leukocytosis, fevers - zosyn and vancomycin - day # 4 - consider CLAUDIO - monitor labs and chest x-ray - wound care per surgery - surveillance blood cultures negative to date - communicated with Dr. Yee 2. GI bleed and coffee-ground emesis. Treatment per GI and Surgery. 3. Patient has multiple wounds, but did not look like acutely infected. Continue wound care per Surgery. 4. Anemia and GI bleed. 5. Dementia. 6. Dysphagia, G-tube, and aspiration risk. 7. COPD. 8. Hypertension. 9. Depression. 10. PVCs. 11. GERD. 12. Quadriplegia. 13. Failure to thrive. 14. Continue treatment per primary consultants. 15. No known drug allergies. 16. Social history is negative. 17. Family history is noncontributory. 18. MAR was noted. 19. Case discussed with RN. Subjective Constitutional: Reports: fatigue; Denies: fever HEENT: Denies: congestion Respiratory: Denies: shortness of breath Cardiovascular: Denies: chest pain Gastrointestinal/Abdominal: Denies: nausea, vomiting, diarrhea Genitourinary: Reports: other - no duggan Neurologic: Denies: headache Psychiatric: Denies: depression Skin: Denies: rash Hematologic: Denies: bleeding Musculoskeletal: Denies: pain Allergies: Coded Allergies: No Known Allergies (Unverified , 08/20/18) Objective Vital Signs Last 24 Hour Vital Signs Date Time Temp Pulse Resp B/P (MAP) Pulse Ox O2 Delivery O2 Flow Rate FiO2 07/20/19 16:00 86 07/20/19 16:00 98.7 76 20 122/73 (89) 95 07/20/19 12:00 94 07/20/19 12:00 98.6 94 20 139/77 (97) 99 07/20/19 09:08 99 144/84 07/20/19 09:06 144/84 07/20/19 09:00 Nasal Cannula 2.0 07/20/19 08:00 97.7 99 20 144/84 (104) 96 99 07/20/19 08:00 88 07/20/19 04:00 98.8 68 19 120/80 (93) 95 07/20/19 04:00 62 07/20/19 00:00 97.2 61 18 111/66 (81) 98 07/20/19 00:00 68 Height (Feet): 5 Height (Inches): 10.00 Weight (Pounds): 129 General Appearance: no acute distress HEENT: normocephalic, atraumatic, anicteric, mucous membranes moist Respiratory/Chest: lungs clear, no accessory muscle use, crackles/rales, rhonchi - bilaterally Cardiovascular: normal rate, regular rhythm, no gallop/murmur, no JVD Abdomen: normal bowel sounds, soft, non tender, no organomegaly, non distended Genitourinary: other - no duggan Extremities: no cyanosis Skin: no rash, ulcers - wounds reviewed Neurologic/Psychiatric: 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 The left lung bilateral pleural spaces remain clear. The heart size is normal. Impression: Unchanged right lung reticular infiltrate and associated atelectasis , over 2 days Microbiology Date/Time Source Procedure Growth Status 07/19/19 04:45 Blood Blood Culture - Preliminary NO GROWTH AFTER 24 HOURS Resulted 07/17/19 09:25 Nasopharynx Coronavirus COVID-19 PCR ([facility]) - Final Complete 07/17/19 09:00 Rectum VRE Culture - Final NO VANCOMYCIN RESISTANT ENTEROCOCCUS ... Complete Microbiology Date/Time Source Procedure Growth Status 07/19/19 04:45 Blood Blood Culture - Preliminary NO GROWTH AFTER 24 HOURS Resulted 07/19/19 04:30 Blood Blood Culture - Preliminary NO GROWTH AFTER 24 HOURS Resulted initial blood cultures with mrsa Laboratory Tests Test 07/20/19 05:20 07/20/19 07:05 07/20/19 17:10 Stool Occult Blood Positive (NEGATIVE) White Blood Count 5.9 K/UL (4.8-10.8) Red Blood Count 2.57 M/UL (4.70-6.10) L Hemoglobin 7.8 G/DL (14.2-18.0) L Hematocrit 23.2 % (42.0-52.0) L Mean Corpuscular Volume 90 FL (80-99) Mean Corpuscular Hemoglobin 30.5 PG (27.0-31.0) Mean Corpuscular Hemoglobin Concent 33.8 G/DL (32.0-36.0) Red Cell Distribution Width 14.2 % (11.6-14.8) Platelet Count 421 K/UL (150-450) Mean Platelet Volume 5.7 FL (6.5-10.1) L Neutrophils (%) (Auto) % (45.0-75.0) Lymphocytes (%) (Auto) % (20.0-45.0) Monocytes (%) (Auto) % (1.0-10.0) Eosinophils (%) (Auto) % (0.0-3.0) Basophils (%) (Auto) % (0.0-2.0) Differential Total Cells Counted 100 Neutrophils % (Manual) 59 % (45-75) Lymphocytes % (Manual) 31 % (20-45) Monocytes % (Manual) 8 % (1-10) Eosinophils % (Manual) 2 % (0-3) Basophils % (Manual) 0 % (0-2) Band Neutrophils 0 % (0-8) Platelet Estimate Adequate Platelet Morphology Normal Hypochromasia 1+ Anisocytosis 1+ Sodium Level 138 MMOL/L (136-145) Potassium Level 3.6 MMOL/L (3.5-5.1) Chloride Level 104 MMOL/L (98-107) Carbon Dioxide Level 24 MMOL/L (21-32) Anion Gap 10 mmol/L (5-15) Blood Urea Nitrogen 13 mg/dL (7-18) Creatinine 0.7 MG/DL (0.55-1.30) Estimat Glomerular Filtration Rate > 60 mL/min (>60) Glucose Level 147 MG/DL (74-106) H Calcium Level 9.2 MG/DL (8.5-10.1) Vancomycin Level Trough 22.1 ug/mL (5.0-12.0) H Current Medications Medications (Trade) Dose Ordered Sig/Altagracia Route PRN Reason Start Time Stop Time Status Last Admin Dose Admin Acetaminophen (Tylenol) 650 mg Q4H PRN ORAL Mild Pain (Pain Scale 1-3) 07/17/19 10:15 08/16/19 10:14 Acetaminophen (Tylenol) 650 mg Q4H PRN ORAL Temp >100.5 07/17/19 10:15 08/16/19 10:14 Amlodipine Besylate (Norvasc) 5 mg DAILY GT 07/18/19 09:00 08/17/19 08:59 07/20/19 09:08 Ascorbic Acid (Vitamin C) 250 mg TWICE A DAY GT 07/18/19 09:00 08/17/19 08:59 07/20/19 17:24 Bisacodyl (Dulcolax) 10 mg DAILYPRN PRN RECTAL Constipation 07/17/19 10:15 10/15/19 10:14 Dextrose (Dextrose 50%) 25 ml Q30M PRN IV Hypoglycemia 07/17/19 10:15 10/15/19 10:14 Dextrose (Dextrose 50%) 50 ml Q30M PRN IV Hypoglycemia 07/17/19 10:15 10/15/19 10:14 Enoxaparin Sodium (Lovenox) 40 mg DAILY SUBQ 07/21/19 09:00 10/19/19 08:59 Finasteride (Proscar) 5 mg DAILY ORAL 07/18/19 09:00 10/16/19 08:59 07/20/19 09:07 Hydralazine HCl (Apresoline) 25 mg Q6H PRN GT SBP > 160 07/17/19 10:15 10/15/19 10:14 Lactulose (Cephulac) 20 gm THREE TIMES A DAY ORAL 07/19/19 13:00 08/18/19 12:59 07/20/19 17:24 Lisinopril (PriniviL) 10 mg DAILY GT 07/18/19 09:00 08/17/19 08:59 07/20/19 09:06 Magnesium Hydroxide (Mom) 30 ml HSPRN PRN ORAL Constipation 07/17/19 10:15 08/16/19 10:14 Multivitamins (Multivitamins) 1 tab DAILY GT 07/18/19 09:00 08/17/19 08:59 07/20/19 09:07 Ondansetron HCl (Zofran) 4 mg Q6H PRN IVP Nausea & Vomiting 07/17/19 10:15 08/16/19 10:14 Pantoprazole (Protonix) 40 mg EVERY 12 HOURS IV 07/17/19 21:00 08/16/19 20:59 07/20/19 20:51 Piperacillin Sod/ Tazobactam Sod 3.375 gm/Dextrose 110 ml @ 27.5 mls/hr EVERY 8 HOURS IVPB 07/17/19 14:00 07/22/19 13:59 07/20/19 13:10 Polyethylene Glycol (Miralax) 17 gm DAILYPRN PRN ORAL Constipation 07/17/19 10:15 08/16/19 10:14 Potassium Chloride (K-Dur) 20 meq DAILY GT 07/18/19 09:00 10/16/19 08:59 07/20/19 09:08 Tamsulosin HCl (Flomax) 0.4 mg DAILY ORAL 07/18/19 09:00 08/17/19 08:59 07/20/19 09:07 Thiamine HCl (Vitamin B1) 100 mg DAILY GT 07/18/19 09:00 08/17/19 08:59 07/20/19 09:06 Tramadol HCl (Ultram) 50 mg Q8H PRN ORAL Severe Pain (Pain Scale 7-10) 07/17/19 16:45 07/24/19 16:44 Vancomycin HCl (Vanco rx to dose) 1 ea DAILY PRN MISC Per rx protocol 07/17/19 12:15 08/16/19 12:14 Vancomycin HCl 750 mg/Sodium Chloride 275 ml @ 183.333 mls/hr Q12H IVPB 07/21/19 02:00 07/26/19 01:59 Bonny Rincon MD July 20, 2019 21:32
--- NOTE | 2019-07-20 21:59 | Consultation ---
DATE OF CONSULTATION: 07/20/2019 REFERRING PHYSICIAN: Darion Hyatt MD REASON FOR CONSULTATION: Management of hypertension and tachycardia. HISTORY OF PRESENT ILLNESS: Patient is a 73-year-old gentleman with advanced dementia, who was bed-bound, nonverbal, and PEG dependent as well as history of depression, PVC, functional quadriplegia, and sacral ulcer, who was transferred from nursing facility for hematemesis. Patient had two episodes of hematemesis in the [facility] and the blood pressure was 98/79. Reportedly, the patient had hematemesis. Patient also had temperature of 101 and chest x-ray showed right lower lobe infiltrate. Patient is being ruled out for COVID. Cardiology consultation was requested for further evaluation. REVIEW OF SYSTEMS: Cannot be obtained. PAST MEDICAL HISTORY: Hypertension in addition to as mentioned above. SOCIAL HISTORY: He lives in a [facility] and is PEG dependent. PHYSICAL EXAMINATION: VITAL SIGNS: Blood pressure of 144/84, pulse is 88, respirations 18, temperature 97.7. NECK: No JVD. LUNGS: Coarse rhonchi. CARDIOVASCULAR: Regular S1 and S2 with no gallop. ABDOMEN: Soft, status post G-tube. EXTREMITIES: No pitting edema. LABORATORY AND DIAGNOSTIC DATA: Labs showed white count of 5.9, hemoglobin of 7.8, hematocrit 23, and platelet count is 421. Sodium 138, potassium 3.6, BUN of 13.7, glucose of 147. His INR is 1.1. ASSESSMENT AND PLAN: 1. Hypertension. Continue amlodipine 5 mg daily and lisinopril 10 mg daily. I will add p.r.n. clonidine to his medical regimen and the patient is already on p.r.n. hydralazine as well. 2. Sepsis. Patient is on vancomycin and Zosyn. Further evaluation by ID. 3. Upper GI bleed. Further evaluation by Dr. Romero. 4. Lactic acidosis, that has resolved. 5. Aspiration pneumonia, on antibiotic. 6. COVID PCR negative x1. We will need second COVID to return to [facility]. 7. Transaminitis. 8. Advanced dementia. 9. Functional quadriplegia. 10. Dysphagia, status post PEG placement. 11. Sacral wound. 12. Right foot ulcer. Thank you very much for allowing me to participate in the care of this patient. Please do not hesitate to contact me for any questions regarding my evaluation. Ismael Christine M.D. DR: Gui JOB#: [id number] CC:
[2019-07-21] VITALS: BP 122/77
[2019-07-21] MEDS: Vancomycin 750 MG in NS 275 ML IVPB SCH ×2 (01:32→14:00)
[2019-07-21 04:00] VITALS: BP 119/68
[2019-07-21] MEDS: Piperacillin/Tazobactam 3.375 GM in D5W 110 ML IVPB SCH ×3 (05:53→21:28)
--- NOTE | 2019-07-21 07:40 | NUR ---
HAND-OFF: Report given to Mckinley CURRY.
[2019-07-21 08:00] VITALS: BP 144/74
[2019-07-21 08:32] LABS: BASOPHILS % (AUTO) 1.5 % (0.0-2.0); EOSINOPHILS % (AUTO) 4.6 % (0.0-3.0); HEMOGLOBIN 8.1 G/DL (14.2-18.0); LYMPHOCYTES % (AUTO) 22.5 % (20.0-45.0); MEAN CORPUSCULAR VOLUME 88 FL (80-99); MONOCYTES % (AUTO) 8.3 % (1.0-10.0); NEUTROPHILS % (AUTO) 63.1 % (45.0-75.0); PLATELET COUNT 405 K/UL (150-450); RED CELL DISTRIBUTION WIDTH 13.6 % (11.6-14.8); WHITE BLOOD COUNT 7.8 K/UL (4.8-10.8)
[2019-07-21 08:44] LABS: ANION GAP 10 mmol/L (5-15); BLOOD UREA NITROGEN 15 mg/dL (7-18); CARBON DIOXIDE 25 MMOL/L (21-32); CHLORIDE 105 MMOL/L (98-107); CREATININE 0.7 MG/DL (0.55-1.30); POTASSIUM 3.9 MMOL/L (3.5-5.1); SODIUM 140 MMOL/L (136-145)
[2019-07-21] MEDS ORDERED: Enoxaparin 40mg Inj SUBQ SCH (09:00)
[2019-07-21] MEDS: Tamsulosin 0.4mg cap ORAL SCH (10:16)
[2019-07-21] MEDS: Pantoprazole Inj IV SCH ×2 (10:18→21:28)
[2019-07-21] MEDS: Ascorbic Acid 500mg tab GT SCH ×2 (10:18→18:11)
[2019-07-21] MEDS: Lisinopril 20mg tab GT SCH (10:18)
[2019-07-21] MEDS: Thiamine 100mg tab GT SCH (10:18)
[2019-07-21] MEDS: Lactulose 20gm/30ml UDC ORAL SCH ×3 (10:19→18:11)
[2019-07-21 12:00] VITALS: BP 137/82
--- NOTE | 2019-07-21 12:00 | Cardiac Electrophysiology PN ---
Assessment/Plan Assessment/Plan 1. Hypertension. Continue amlodipine 5 mg daily and lisinopril 10 mg daily and p.r.n. hydralazine 2. Sepsis. Patient is on vancomycin and Zosyn. Further evaluation by ID. 3. Upper GI bleed. Further evaluation by Dr. Romero. 4. Lactic acidosis, that has resolved. 5. Aspiration pneumonia, on antibiotic. 6. COVID PCR negative x1. Awaiting second COVID to return to [facility]. 7. Transaminitis. 8. Advanced dementia. 9. Functional quadriplegia. 10. Dysphagia, status post PEG placement. 11. Sacral wound. 12. Right foot ulcer. Subjective Subjective Nonverbal in SR. No events Objective Last 24 Hour Vital Signs Date Time Temp Pulse Resp B/P (MAP) Pulse Ox O2 Delivery O2 Flow Rate FiO2 07/21/19 10:19 75 119/68 07/21/19 10:18 119/68 07/21/19 04:00 97.4 91 18 119/68 (85) 96 07/21/19 04:00 75 07/21/19 00:00 78 07/21/19 00:00 97.0 88 18 122/77 (92) 98 07/20/19 21:00 Nasal Cannula 2.0 07/20/19 20:00 85 07/20/19 20:00 97.5 94 18 135/81 (99) 99 07/20/19 16:00 86 07/20/19 16:00 98.7 76 20 122/73 (89) 95 07/20/19 12:00 94 07/20/19 12:00 98.6 94 20 139/77 (97) 99 Intake and Output 07/20/19 07/21/19 19:00 07:00 Output Total 1200 ml 350 ml Balance -1200 ml -350 ml Output Urine Total 1200 ml 350 ml # Bowel Movements 1 Laboratory Tests Test 07/20/19 17:10 07/21/19 08:20 Vancomycin Level Trough 22.1 ug/mL (5.0-12.0) H White Blood Count 7.8 K/UL (4.8-10.8) Red Blood Count 2.60 M/UL (4.70-6.10) L Hemoglobin 8.1 G/DL (14.2-18.0) L Hematocrit 23.0 % (42.0-52.0) L Mean Corpuscular Volume 88 FL (80-99) Mean Corpuscular Hemoglobin 31.1 PG (27.0-31.0) H Mean Corpuscular Hemoglobin Concent 35.1 G/DL (32.0-36.0) Red Cell Distribution Width 13.6 % (11.6-14.8) Platelet Count 405 K/UL (150-450) Mean Platelet Volume 4.8 FL (6.5-10.1) L Neutrophils (%) (Auto) 63.1 % (45.0-75.0) Lymphocytes (%) (Auto) 22.5 % (20.0-45.0) Monocytes (%) (Auto) 8.3 % (1.0-10.0) Eosinophils (%) (Auto) 4.6 % (0.0-3.0) H Basophils (%) (Auto) 1.5 % (0.0-2.0) Sodium Level 140 MMOL/L (136-145) Potassium Level 3.9 MMOL/L (3.5-5.1) Chloride Level 105 MMOL/L (98-107) Carbon Dioxide Level 25 MMOL/L (21-32) Anion Gap 10 mmol/L (5-15) Blood Urea Nitrogen 15 mg/dL (7-18) Creatinine 0.7 MG/DL (0.55-1.30) Estimat Glomerular Filtration Rate > 60 mL/min (>60) Glucose Level 130 MG/DL (74-106) H Calcium Level 9.0 MG/DL (8.5-10.1) Microbiology Date/Time Source Procedure Growth Status 07/19/19 04:45 Blood Blood Culture - Preliminary NO GROWTH AFTER 48 HOURS Resulted 07/19/19 04:30 Blood Blood Culture - Preliminary NO GROWTH AFTER 48 HOURS Resulted Objective NECK: No JVD. LUNGS: Coarse rhonchi. CARDIOVASCULAR: Regular S1 and S2 with no gallop. ABDOMEN: Soft, status post G-tube. EXTREMITIES: No pitting edema. Ismael Christine MD July 21, 2019 12:00
--- NOTE | 2019-07-21 13:35 | General Progress Note ---
Assessment/Plan Assessment/Plan: 1. History of chronic anemia. 2. H. pylori negative gastritis. 3. Hiatal hernia. 4. Hemorrhoids. 5. Dementia. 6. Hypertension. 7. UTI. 8. Hypercholesteremia. 9. Patient has dysphagia with a G-tube. 10 GIB 11. elevated LFTS drop in H&H without active bleed stool ob positive ppi transfuse to keep HGB above 7.5 GI procedures on hold for now abx per id positive blood cultures on lactulose GTF npo pmn for possible EGd if off isolation will fu Subjective ROS Limited/Unobtainable: No Allergies: Coded Allergies: No Known Allergies (Unverified , 08/20/18) Objective Last 24 Hour Vital Signs Date Time Temp Pulse Resp B/P (MAP) Pulse Ox O2 Delivery O2 Flow Rate FiO2 07/21/19 10:19 75 119/68 07/21/19 10:18 119/68 07/21/19 04:00 97.4 91 18 119/68 (85) 96 07/21/19 04:00 75 07/21/19 00:00 78 07/21/19 00:00 97.0 88 18 122/77 (92) 98 07/20/19 21:00 Nasal Cannula 2.0 07/20/19 20:00 85 07/20/19 20:00 97.5 94 18 135/81 (99) 99 07/20/19 16:00 86 07/20/19 16:00 98.7 76 20 122/73 (89) 95 Intake and Output 07/20/19 07/21/19 19:00 07:00 Output Total 1200 ml 350 ml Balance -1200 ml -350 ml Output Urine Total 1200 ml 350 ml # Bowel Movements 1 Laboratory Tests 07/20/19 17:10: Vancomycin Level Trough 22.1H 07/21/19 08:20: White Blood Count 7.8, Red Blood Count 2.60L, Hemoglobin 8.1L, Hematocrit 23.0L , Mean Corpuscular Volume 88, Mean Corpuscular Hemoglobin 31.1H, Mean Corpuscular Hemoglobin Concent 35.1, Red Cell Distribution Width 13.6, Platelet Count 405, Mean Platelet Volume 4.8L, Neutrophils (%) (Auto) 63.1, Lymphocytes ( %) (Auto) 22.5, Monocytes (%) (Auto) 8.3, Eosinophils (%) (Auto) 4.6H, Basophils (%) (Auto) 1.5, Sodium Level 140, Potassium Level 3.9, Chloride Level 105, Carbon Dioxide Level 25, Anion Gap 10, Blood Urea Nitrogen 15, Creatinine 0.7, Estimat Glomerular Filtration Rate > 60, Glucose Level 130H, Calcium Level 9.0 Height (Feet): 5 Height (Inches): 10.00 Weight (Pounds): 129 General Appearance: no apparent distress EENT: normal ENT inspection Neck: supple Cardiovascular: normal rate Respiratory/Chest: decreased breath sounds Abdomen: normal bowel sounds, non tender, soft Extremities: non-tender Ramiro Romero MD July 21, 2019 13:35
[2019-07-21 16:00] VITALS: BP 127/72
--- NOTE | 2019-07-21 16:17 | NUR ---
CASE MANAGEMENT: REVIEW 07/21/19 SI:GASTROINTESTINAL HEMORRHAGE . PNA 97.4 91 18 119/68 96% ON 2L NC H/H 8.1/23.0 IS:IV ZOSYN TID IV VANCOMYCIN BID LACTULOSE PO TID IV PROTONIX BID PROSCAR GT QD K-DUR GT QD \: 2E MED SURG UNIT DCP : [facility] WHEN STABLE PLAN: Need one more COVID-19 NEGATIVE; then patient may DC back to [facility]
--- NOTE | 2019-07-21 18:01 | Surgery Progress Note ---
Surgery Progress Note Subjective Symptoms: tolerating diet, voiding well, passing flatus Additional Comments no acute events Objective Last 24 Hour Vital Signs Date Time Temp Pulse Resp B/P (MAP) Pulse Ox O2 Delivery O2 Flow Rate FiO2 07/21/19 16:00 85 07/21/19 12:00 79 07/21/19 10:19 75 119/68 07/21/19 10:18 119/68 07/21/19 09:00 Nasal Cannula 2.0 07/21/19 08:00 82 07/21/19 04:00 97.4 91 18 119/68 (85) 96 07/21/19 04:00 75 07/21/19 00:00 78 07/21/19 00:00 97.0 88 18 122/77 (92) 98 07/20/19 21:00 Nasal Cannula 2.0 07/20/19 20:00 85 07/20/19 20:00 97.5 94 18 135/81 (99) 99 I&O Intake and Output 07/20/19 07/21/19 19:00 07:00 Output Total 1200 ml 350 ml Balance -1200 ml -350 ml Output Urine Total 1200 ml 350 ml # Bowel Movements 1 Dressing: saturated Wound: clean Cardiovascular: RSR Respiratory: clear Abdomen: soft, non-tender, present bowel sounds Extremities: no cyanosis Laboratory Tests Test 07/21/19 08:20 White Blood Count 7.8 K/UL (4.8-10.8) Red Blood Count 2.60 M/UL (4.70-6.10) L Hemoglobin 8.1 G/DL (14.2-18.0) L Hematocrit 23.0 % (42.0-52.0) L Mean Corpuscular Volume 88 FL (80-99) Mean Corpuscular Hemoglobin 31.1 PG (27.0-31.0) H Mean Corpuscular Hemoglobin Concent 35.1 G/DL (32.0-36.0) Red Cell Distribution Width 13.6 % (11.6-14.8) Platelet Count 405 K/UL (150-450) Mean Platelet Volume 4.8 FL (6.5-10.1) L Neutrophils (%) (Auto) 63.1 % (45.0-75.0) Lymphocytes (%) (Auto) 22.5 % (20.0-45.0) Monocytes (%) (Auto) 8.3 % (1.0-10.0) Eosinophils (%) (Auto) 4.6 % (0.0-3.0) H Basophils (%) (Auto) 1.5 % (0.0-2.0) Sodium Level 140 MMOL/L (136-145) Potassium Level 3.9 MMOL/L (3.5-5.1) Chloride Level 105 MMOL/L (98-107) Carbon Dioxide Level 25 MMOL/L (21-32) Anion Gap 10 mmol/L (5-15) Blood Urea Nitrogen 15 mg/dL (7-18) Creatinine 0.7 MG/DL (0.55-1.30) Estimat Glomerular Filtration Rate > 60 mL/min (>60) Glucose Level 130 MG/DL (74-106) H Calcium Level 9.0 MG/DL (8.5-10.1) Plan Problems: (1) GI bleed Assessment & Plan: Patient noted to have coffee-ground emesis and melena. Hemoglobin noted and stable No active bleeding noted at this time No gross blood on rectal Trend labs will monitor Appreciate GI input (2) Decubitus skin ulcer Assessment & Plan: Patient presents on admission with multiple skin concerns. Patient identified to have a 2 cm x 1 cm x 2 mm deep unstageable right lateral foot distal malleolus decubitus ulcer with slough in the base raised edges periwound with mild erythema no active drainage no acute active infectious process no foul odor. Patient identified to have deep tissue injury around the area of the issue him and sacrum. Prior healing skin changes identified. No active drainage no fluctuance. Overall patient very deconditioned and malnutrition. Albumin low. Currently sepsis Nutritional optimization very important Treatment plan: Wash right foot daily with normal saline. Apply Thera honey followed by gauze and foam dressing to the right foot ulcer change daily and as needed saturation Apply skin protectant and foam dressing to the bilateral ischio and sacral region change every 3 days and as needed saturation Monitor for incontinence Change accordingly Turn every 2 hours Offload pressure with air mattress pressure release Offload heels with pillow under calves We will follow with recommendations thank you for let me participate patient's care (3) Severe malnutrition (4) Failure to thrive syndrome, adult (5) Sepsis Assessment & Plan: Febrile, leukocytosis, lactic acidosis. Abnormal labs. Lactic acidosis improving with fluid resuscitation UA noted pending micro Broad-spectrum antibiotics per infectious disease. Continue with current care and plan will follow with recs (6) Elevated LFTs (7) Suspected COVID-19 virus infection Assessment & Plan: Persistent infiltrate in right lower lobe, likely pneumonia. Recommend correlation with CT to exclude mass lesion. Reji Guy July 21, 2019 18:01
--- NOTE | 2019-07-21 18:35 | General Progress Note ---
Assessment/Plan Assessment/Plan: HPI/CC: 73-year-old male with PMH of advanced dementia (bedbound, nonverbal, PEG dependent at baseline), dysphasia s/p PEG tube, COPD, HTN, depression, PVCs , GERD, functional quadriplegia, adult failure to thrive, sacral ulcer who presents from rehab facility for hematemesis. On admission pt was noted to have temperature of 100.9 rectally, rhonchorous cough. CXR performed which showed RLL infiltrate. Patient admitted for further treatment and evaluation. Patient subsequently found to have MRSA Bacteremia initial COVID test negative. Assessment #Hematemesis, R/O UGIB, currently HGB stable, pending GI w/u regarding EGD #Sepsis Multifactoral secondary to MRSA Bacteremia, Aspiration PNA/HCAP #R/O COVID, first test negative #Decubitus Ulcers/Diffuse Pressure wounds #HTN #BPH #Dementia/FTT/Functional Quadriplegia, PEG tube dependent Plan Consults include ID, Surgery, Cardio, GI Continue Protonix IV BID Continue Vancomycin IV & Zosyn IV, appreciate ID Transfuse HGB prn per GI parameters Lisinopril, Finasteride, Tamsulosin PRN BP and pain meds Wound Care per Surgery Diet per GI --> possible EGD pending repeat COVID test if negative Subjective Date patient seen: July 21, 2019 Allergies: Coded Allergies: No Known Allergies (Unverified , 08/20/18) Subjective No acute events; appreciate consultants. Vitals stable. Feel it is best to hold Lovenox until confirmed w/ GI regarding plan; Continue broad spectrum AB, Protonix IV. Objective Last 24 Hour Vital Signs Date Time Temp Pulse Resp B/P (MAP) Pulse Ox O2 Delivery O2 Flow Rate FiO2 07/21/19 16:00 85 07/21/19 12:00 79 07/21/19 10:19 75 119/68 07/21/19 10:18 119/68 07/21/19 09:00 Nasal Cannula 2.0 07/21/19 08:00 82 07/21/19 04:00 97.4 91 18 119/68 (85) 96 07/21/19 04:00 75 07/21/19 00:00 78 07/21/19 00:00 97.0 88 18 122/77 (92) 98 07/20/19 21:00 Nasal Cannula 2.0 07/20/19 20:00 85 07/20/19 20:00 97.5 94 18 135/81 (99) 99 Intake and Output 07/20/19 07/21/19 19:00 07:00 Output Total 1200 ml 350 ml Balance -1200 ml -350 ml Output Urine Total 1200 ml 350 ml # Bowel Movements 1 Laboratory Tests 07/21/19 08:20: White Blood Count 7.8, Red Blood Count 2.60L, Hemoglobin 8.1L, Hematocrit 23.0L , Mean Corpuscular Volume 88, Mean Corpuscular Hemoglobin 31.1H, Mean Corpuscular Hemoglobin Concent 35.1, Red Cell Distribution Width 13.6, Platelet Count 405, Mean Platelet Volume 4.8L, Neutrophils (%) (Auto) 63.1, Lymphocytes ( %) (Auto) 22.5, Monocytes (%) (Auto) 8.3, Eosinophils (%) (Auto) 4.6H, Basophils (%) (Auto) 1.5, Sodium Level 140, Potassium Level 3.9, Chloride Level 105, Carbon Dioxide Level 25, Anion Gap 10, Blood Urea Nitrogen 15, Creatinine 0.7, Estimat Glomerular Filtration Rate > 60, Glucose Level 130H, Calcium Level 9.0 Height (Feet): 5 Height (Inches): 10.00 Weight (Pounds): 129 Rena Deluca D.O. July 21, 2019 18:35
--- NOTE | 2019-07-21 19:26 | NUR ---
NURSE NOTES: Received report from ANTOINETTE Sen. Patient is on bed, alert, oriented x 0, aphasic and obtunded. Patient is on G-tube, Vital AF 1.2 @ 60 cc/hour, flushing of 100cc every 6 hours and its currently patent and draining continuously. monitoring analyst is in placed, shows sinus rhythm with no chest pain or discomfort reported. Patient is on oxygen via nasal cannula @ 2lpm and no shortness of breath at this time.IV site is on right AC G-20 saline lock that is intact and patent and asymptomatic. Safety measures are in placed, bed in low and locked position, bed alarm is on. Will continue plan of care.
[2019-07-21 20:00] VITALS: BP 125/75
[2019-07-22] VITALS: BP 116/62
[2019-07-22] MEDS: Vancomycin 750 MG in NS 275 ML IVPB SCH ×2 (02:03→13:38)
[2019-07-22 04:00] VITALS: BP 103/56
[2019-07-22 04:24] LABS: BASOPHILS % (AUTO) 1.8 % (0.0-2.0); HEMATOCRIT 23.1 % (42.0-52.0); LYMPHOCYTES % (AUTO) 21.1 % (20.0-45.0); MEAN CORPUSCULAR VOLUME 90 FL (80-99); MONOCYTES % (AUTO) 8.7 % (1.0-10.0); NEUTROPHILS % (AUTO) 64.5 % (45.0-75.0); PLATELET COUNT 417 K/UL (150-450); RED BLOOD COUNT 2.58 M/UL (4.70-6.10); RED CELL DISTRIBUTION WIDTH 14.1 % (11.6-14.8); WHITE BLOOD COUNT 9.2 K/UL (4.8-10.8)
[2019-07-22 04:39] LABS: PHOSPHORUS 3.1 MG/DL (2.5-4.9)
[2019-07-22 04:43] LABS: ALANINE AMINOTRANSFERASE 58 U/L (12-78); ALBUMIN 2.6 G/DL (3.4-5.0); ALBUMIN/GLOBULIN RATIO 0.5 (1.0-2.7); ALKALINE PHOSPHATASE 99 U/L (46-116); ANION GAP 10 mmol/L (5-15); ASPARTATE AMINO TRANSFERASE 27 U/L (15-37); BILIRUBIN,TOTAL 0.4 MG/DL (0.2-1.0); BLOOD UREA NITROGEN 14 mg/dL (7-18); CALCIUM 8.9 MG/DL (8.5-10.1); CARBON DIOXIDE 26 MMOL/L (21-32); CHLORIDE 104 MMOL/L (98-107); CREATININE 0.7 MG/DL (0.55-1.30); POTASSIUM 3.8 MMOL/L (3.5-5.1); SODIUM 140 MMOL/L (136-145)
[2019-07-22] MEDS: Piperacillin/Tazobactam 3.375 GM in D5W 110 ML IVPB SCH ×3 (06:48→21:38)
--- NOTE | 2019-07-22 07:40 | NUR ---
HAND-OFF: Report given to ANTOINETTE Blair. Patient is in stable condition, with no respiratory distress noted. Plan of care endorsed.
--- NOTE | 2019-07-22 07:50 | NUR ---
NURSE NOTES: Received report from ANTOINETTE Lock. Observed pt sleeping, breathing even and unlabored in 2L NC. No s/sx of acute distress. IV sites patent and asymptomatic. Pt on tube feeding Vital AF 1.2 running at goal. IV site patent and asymptomatic. Bed on lowest position, call light within reach. Will continue plan of care.
[2019-07-22 08:00] VITALS: BP 120/66
--- NOTE | 2019-07-22 08:30 | General Progress Note ---
Assessment/Plan Assessment/Plan: HPI/CC: 73-year-old male with PMH of advanced dementia (bedbound, nonverbal, PEG dependent at baseline), dysphasia s/p PEG tube, COPD, HTN, depression, PVCs , GERD, functional quadriplegia, adult failure to thrive, sacral ulcer who presents from rehab facility for hematemesis. On admission pt was noted to have temperature of 100.9 rectally, rhonchorous cough. CXR performed which showed RLL infiltrate. Patient admitted for further treatment and evaluation. Patient subsequently found to have MRSA Bacteremia initial COVID test negative. Assessment #Hematemesis, R/O UGIB, currently HGB stable, pending GI w/u regarding EGD #Sepsis Multifactoral secondary to MRSA Bacteremia, Aspiration PNA/HCAP #R/O COVID, now two negative tests #Decubitus Ulcers/Diffuse Pressure wounds #HTN #BPH #Dementia/FTT/Functional Quadriplegia, PEG tube dependent Plan Consults include ID, Surgery, Cardio, GI Continue Protonix IV BID --> F/U with GI if patient should have EGD Continue Vancomycin IV & Zosyn IV, appreciate ID Transfuse HGB prn per GI parameters Lisinopril, Finasteride, Tamsulosin PRN BP and pain meds Wound Care per Surgery Diet per GI Subjective Date patient seen: July 22, 2019 Time patient seen: 08:28 Allergies: Coded Allergies: No Known Allergies (Unverified , 08/20/18) Subjective No acute events; appreciate consultants. Vitals stable. Feel it is best to hold Lovenox until confirmed w/ GI regarding plan; Continue broad spectrum AB, Protonix IV. COVID has come back negative x2 so we will follow-up with GI if patient should have an EGD. Patient can be downgraded to Tele as vitals stable. Objective Last 24 Hour Vital Signs Date Time Temp Pulse Resp B/P (MAP) Pulse Ox O2 Delivery O2 Flow Rate FiO2 07/22/19 04:00 97.8 99 19 103/56 (72) 97 07/22/19 04:00 85 07/22/19 00:00 97.7 99 19 116/62 (80) 98 07/22/19 00:00 89 07/21/19 21:00 Nasal Cannula 2.0 07/21/19 20:00 98 07/21/19 20:00 97.7 78 19 125/75 (92) 98 07/21/19 16:00 85 07/21/19 16:00 97.5 83 18 127/72 (90) 99 07/21/19 12:00 79 07/21/19 12:00 97.0 74 19 137/82 (100) 98 07/21/19 10:19 75 119/68 07/21/19 10:18 119/68 07/21/19 09:00 Nasal Cannula 2.0 Intake and Output 07/21/19 07/22/19 19:00 07:00 Intake Total 60 ml 860 ml Output Total 750 ml Balance 60 ml 110 ml Intake Free Water 200 ml Tube Feeding 60 ml 660 ml Output Urine Total 750 ml # Voids 1 # Bowel Movements 1 1 Laboratory Tests 07/22/19 04:00: White Blood Count 9.2, Red Blood Count 2.58L, Hemoglobin 8.0L, Hematocrit 23.1L , Mean Corpuscular Volume 90, Mean Corpuscular Hemoglobin 30.8, Mean Corpuscular Hemoglobin Concent 34.4, Red Cell Distribution Width 14.1, Platelet Count 417, Mean Platelet Volume 5.3L, Neutrophils (%) (Auto) 64.5, Lymphocytes ( %) (Auto) 21.1, Monocytes (%) (Auto) 8.7, Eosinophils (%) (Auto) 4.0H, Basophils (%) (Auto) 1.8, Sodium Level 140, Potassium Level 3.8, Chloride Level 104, Carbon Dioxide Level 26, Anion Gap 10, Blood Urea Nitrogen 14, Creatinine 0.7, Estimat Glomerular Filtration Rate > 60, Glucose Level 108H, Calcium Level 8.9, Phosphorus Level 3.1, Magnesium Level 1.9, Total Bilirubin 0.4, Aspartate Amino Transf (AST/SGOT) 27, Alanine Aminotransferase (ALT/SGPT) 58, Alkaline Phosphatase 99, Total Protein 7.7, Albumin 2.6L, Globulin 5.1, Albumin/Globulin Ratio 0.5L, Vancomycin Level Trough [Pending] Height (Feet): 5 Height (Inches): 10.00 Weight (Pounds): 129 General Appearance: no apparent distress, other - demented EENT: PERRL/EOMI Cardiovascular: normal rate, regular rhythm Respiratory/Chest: lungs clear, normal breath sounds Abdomen: soft, other - peg tube Extremities: other - muscle wasting Neurologic: disoriented Rena Deluca D.O. July 22, 2019 08:30
[2019-07-22] MEDS: Ascorbic Acid 500mg tab GT SCH ×2 (09:12→17:38)
[2019-07-22] MEDS: Thiamine 100mg tab GT SCH (09:12)
[2019-07-22] MEDS: Lactulose 20gm/30ml UDC ORAL SCH ×3 (09:12→17:38)
[2019-07-22] MEDS: Lisinopril 20mg tab GT SCH (09:12)
[2019-07-22] MEDS: Pantoprazole Inj IV SCH ×2 (09:12→21:00)
[2019-07-22] MEDS: Tamsulosin 0.4mg cap ORAL SCH (09:13)
--- NOTE | 2019-07-22 09:17 | NUR ---
CASE MANAGEMENT: REVIEW 07/22/19 SI:GASTROINTESTINAL HEMORRHAGE . PNA 96.6 74 19 120/66 98% ON 2L NC H/H 8.0/23.1 IS:IV ZOSYN TID IV VANCOMYCIN BID NORVASC GT QD LACTULOSE PO TID IV PROTONIX BID PROSCAR PO QD PROSCAR GT QD K-DUR GT QD \: 2E MED SURG UNIT DCP : [facility] WHEN STABLE PLAN: POSSIBLE EGD TODAY X2 NEGATIVE COVID-19 UPDATE FACILITY [facility] OF X2 NEGATIVE COVID-19 POSS DC OVER WEEKEND IF STABLE Addendum: 07/22/19 at 0950 by MIGUEL JANG LVN ~~NOTE: ORIGINAL CC: HEMATEMESIS PER GI: UNABLE TO DETERMINE SOURCE UNTIL X2 COVID NEGATIVE
--- NOTE | 2019-07-22 10:15 | Diagnostic Imaging Report ---
Indication: Shortness of breath Technique: One view of the chest Comparison: 07/19/2019 Findings: Right basilar atelectasis and or infiltrate appears slightly less prominent than on the prior study, although this could be an artifact of different rotation. There is some atelectasis developing in the left midlung, not evident previously. The remainder the lungs and pleural spaces are clear. The heart size is normal. Impression: Possibly improved right basilar atelectasis and infiltrate, since prior exam of 3 days earlier New atelectasis in the left midlung
--- NOTE | 2019-07-22 10:20 | NUR ---
NURSE NOTES: Spoke with Kelly from GI Lab. EGD will probably be done on Thursday, NOT TODAY, because pt was not on NPO status since midnight. Per night RN, feeding was not held because per GI MD note, NPO from midnight when covid result comes back negative. The second result just came in today in the morning. Consent was already obtained and filed on the pt chart.
--- NOTE | 2019-07-22 10:36 | General Progress Note ---
Assessment/Plan Assessment/Plan: 1. History of chronic anemia. 2. H. pylori negative gastritis. 3. Hiatal hernia. 4. Hemorrhoids. 5. Dementia. 6. Hypertension. 7. UTI. 8. Hypercholesteremia. 9. Patient has dysphagia with a G-tube. 10 GIB 11. elevated LFTS drop in H&H without active bleed stool ob positive ppi transfuse to keep HGB above 7.5 abx per id positive blood cultures on lactulose GTF EGD for today was canceled given patient was not NPO despite the orders! plan EGD and colonoscopy on Thursday if patient still in house will fu Subjective ROS Limited/Unobtainable: No Allergies: Coded Allergies: No Known Allergies (Unverified , 08/20/18) Objective Last 24 Hour Vital Signs Date Time Temp Pulse Resp B/P (MAP) Pulse Ox O2 Delivery O2 Flow Rate FiO2 07/22/19 09:13 74 120/66 07/22/19 09:12 120/66 07/22/19 08:00 96.6 74 19 120/66 (84) 98 07/22/19 04:00 97.8 99 19 103/56 (72) 97 07/22/19 04:00 85 07/22/19 00:00 97.7 99 19 116/62 (80) 98 07/22/19 00:00 89 07/21/19 21:00 Nasal Cannula 2.0 07/21/19 20:00 98 07/21/19 20:00 97.7 78 19 125/75 (92) 98 07/21/19 16:00 85 07/21/19 16:00 97.5 83 18 127/72 (90) 99 07/21/19 12:00 79 07/21/19 12:00 97.0 74 19 137/82 (100) 98 Intake and Output 07/21/19 07/22/19 19:00 07:00 Intake Total 60 ml 860 ml Output Total 750 ml Balance 60 ml 110 ml Intake Free Water 200 ml Tube Feeding 60 ml 660 ml Output Urine Total 750 ml # Voids 1 # Bowel Movements 1 1 Laboratory Tests 07/22/19 04:00: White Blood Count 9.2, Red Blood Count 2.58L, Hemoglobin 8.0L, Hematocrit 23.1L , Mean Corpuscular Volume 90, Mean Corpuscular Hemoglobin 30.8, Mean Corpuscular Hemoglobin Concent 34.4, Red Cell Distribution Width 14.1, Platelet Count 417, Mean Platelet Volume 5.3L, Neutrophils (%) (Auto) 64.5, Lymphocytes ( %) (Auto) 21.1, Monocytes (%) (Auto) 8.7, Eosinophils (%) (Auto) 4.0H, Basophils (%) (Auto) 1.8, Sodium Level 140, Potassium Level 3.8, Chloride Level 104, Carbon Dioxide Level 26, Anion Gap 10, Blood Urea Nitrogen 14, Creatinine 0.7, Estimat Glomerular Filtration Rate > 60, Glucose Level 108H, Calcium Level 8.9, Phosphorus Level 3.1, Magnesium Level 1.9, Total Bilirubin 0.4, Aspartate Amino Transf (AST/SGOT) 27, Alanine Aminotransferase (ALT/SGPT) 58, Alkaline Phosphatase 99, Total Protein 7.7, Albumin 2.6L, Globulin 5.1, Albumin/Globulin Ratio 0.5L, Vancomycin Level Trough [Pending] Height (Feet): 5 Height (Inches): 10.00 Weight (Pounds): 129 General Appearance: no apparent distress EENT: normal ENT inspection Neck: normal alignment Cardiovascular: normal rate Respiratory/Chest: decreased breath sounds Abdomen: normal bowel sounds, non tender, soft Extremities: non-tender Ramiro Romero MD July 22, 2019 10:36
[2019-07-22 12:00] VITALS: BP 116/60
--- NOTE | 2019-07-22 12:19 | NUR ---
RD ASSESSMENT & RECOMMENDATIONS SEE CARE ACTIVITY FOR COMPLETE ASSESSMENT DAILY ESTIMATED NEEDS: Needs based on Wounds, wasting/ 49kg 30-35 kcals/kg 2507-7928 total kcals 1.25-2.0 g protein/kg 61-98 g total protein 25-30 mL/kg 3737-0150 total fluid mLs NUTRITION DIAGNOSIS: * Swallowing difficulty R/T dysphagia as evidenced by pt is PEG dep. * Increased kcal/prot intake needs R/T wound healing as evidenced by pt admitted wounds including deep unstageable wound @ right lateral foot distal malleolus and DTI @ sacrum. CURRENT TF:Vital AF 1.2 @ 60ml/hr x 24 hrs ENTERAL NUTRITION RECOMMENDATIONS: Osmolite 1.2 @ 60ml/hr x 24 hrs to provide 1440ml, 1728kcal, 80g prot, 1181ml free water * Rec Osmolite 1.2, non fiber containing TF for easy tolerance given possible GIB. * Start @30ml/hr, advance as tolerated 10ml/hr q4-6 hrs to goal * TF @ goal will provide 35kcal/1.63g prot per kg * HOB over 30 degrees * Water flush of 100ml q 8 hrs without IVF ADDITIONAL RECOMMENDATIONS: * CALIBRATED BEDSCALE WT wt in May 2019: 108 lbs vs current EMR wt of 145lbs. * Wound care: continue Vit C Add YUNIOR in 4oz H2O via GT BID * Monitor lytes, replete as needed . .
--- NOTE | 2019-07-22 12:30 | NUR ---
RADIOLOGY DEPT., CHEST X-RAY DONE.-P.DYE
--- NOTE | 2019-07-22 13:25 | Surgery Progress Note ---
Surgery Progress Note Subjective Additional Comments no acute events comfortable stable tolerating feedings Objective Last 24 Hour Vital Signs Date Time Temp Pulse Resp B/P (MAP) Pulse Ox O2 Delivery O2 Flow Rate FiO2 07/22/19 12:51 99.1 07/22/19 12:00 100.6 84 19 116/60 (78) 97 07/22/19 09:13 74 120/66 07/22/19 09:12 120/66 07/22/19 09:00 Nasal Cannula 2.0 07/22/19 08:15 73 07/22/19 08:00 96.6 74 19 120/66 (84) 98 07/22/19 04:00 97.8 99 19 103/56 (72) 97 07/22/19 04:00 85 07/22/19 00:00 97.7 99 19 116/62 (80) 98 07/22/19 00:00 89 07/21/19 21:00 Nasal Cannula 2.0 07/21/19 20:00 98 07/21/19 20:00 97.7 78 19 125/75 (92) 98 07/21/19 16:00 85 07/21/19 16:00 97.5 83 18 127/72 (90) 99 I&O Intake and Output 07/21/19 07/22/19 19:00 07:00 Intake Total 60 ml 860 ml Output Total 750 ml Balance 60 ml 110 ml Intake Free Water 200 ml Tube Feeding 60 ml 660 ml Output Urine Total 750 ml # Voids 1 # Bowel Movements 1 1 Dressing: saturated Cardiovascular: RSR Respiratory: decreased breath sounds Abdomen: soft, non-tender, present bowel sounds, non-distended Extremities: no edema, no tenderness, no cyanosis Laboratory Tests Test 07/22/19 04:00 07/22/19 13:05 White Blood Count 9.2 K/UL (4.8-10.8) Red Blood Count 2.58 M/UL (4.70-6.10) L Hemoglobin 8.0 G/DL (14.2-18.0) L Hematocrit 23.1 % (42.0-52.0) L Mean Corpuscular Volume 90 FL (80-99) Mean Corpuscular Hemoglobin 30.8 PG (27.0-31.0) Mean Corpuscular Hemoglobin Concent 34.4 G/DL (32.0-36.0) Red Cell Distribution Width 14.1 % (11.6-14.8) Platelet Count 417 K/UL (150-450) Mean Platelet Volume 5.3 FL (6.5-10.1) L Neutrophils (%) (Auto) 64.5 % (45.0-75.0) Lymphocytes (%) (Auto) 21.1 % (20.0-45.0) Monocytes (%) (Auto) 8.7 % (1.0-10.0) Eosinophils (%) (Auto) 4.0 % (0.0-3.0) H Basophils (%) (Auto) 1.8 % (0.0-2.0) Sodium Level 140 MMOL/L (136-145) Potassium Level 3.8 MMOL/L (3.5-5.1) Chloride Level 104 MMOL/L (98-107) Carbon Dioxide Level 26 MMOL/L (21-32) Anion Gap 10 mmol/L (5-15) Blood Urea Nitrogen 14 mg/dL (7-18) Creatinine 0.7 MG/DL (0.55-1.30) Estimat Glomerular Filtration Rate > 60 mL/min (>60) Glucose Level 108 MG/DL (74-106) H Calcium Level 8.9 MG/DL (8.5-10.1) Phosphorus Level 3.1 MG/DL (2.5-4.9) Magnesium Level 1.9 MG/DL (1.8-2.4) Total Bilirubin 0.4 MG/DL (0.2-1.0) Aspartate Amino Transf (AST/SGOT) 27 U/L (15-37) Alanine Aminotransferase (ALT/SGPT) 58 U/L (12-78) Alkaline Phosphatase 99 U/L (46-116) Total Protein 7.7 G/DL (6.4-8.2) Albumin 2.6 G/DL (3.4-5.0) L Globulin 5.1 g/dL Albumin/Globulin Ratio 0.5 (1.0-2.7) L Vancomycin Level Trough Pending Plan Problems: (1) GI bleed Assessment & Plan: Patient noted to have coffee-ground emesis and melena. Hemoglobin noted and stable No active bleeding noted at this time No gross blood on rectal Trend labs will monitor Appreciate GI input (2) Decubitus skin ulcer Assessment & Plan: Patient presents on admission with multiple skin concerns. Patient identified to have a 2 cm x 1 cm x 2 mm deep unstageable right lateral foot distal malleolus decubitus ulcer with slough in the base raised edges periwound with mild erythema no active drainage no acute active infectious process no foul odor. Patient identified to have deep tissue injury around the area of the issue him and sacrum. Prior healing skin changes identified. No active drainage no fluctuance. Overall patient very deconditioned and malnutrition. Albumin low. Currently sepsis Nutritional optimization very important Treatment plan: Wash right foot daily with normal saline. Apply Thera honey followed by gauze and foam dressing to the right foot ulcer change daily and as needed saturation Apply skin protectant and foam dressing to the bilateral ischio and sacral region change every 3 days and as needed saturation Monitor for incontinence Change accordingly Turn every 2 hours Offload pressure with air mattress pressure release Offload heels with pillow under calves We will follow with recommendations thank you for let me participate patient's care (3) Severe malnutrition Assessment & Plan: DAILY ESTIMATED NEEDS: Needs based on Wounds, wasting/ 49kg 30-35 kcals/kg 6675-4428 total kcals 1.25-2.0 g protein/kg 61-98 g total protein 25-30 mL/kg 5149-8804 total fluid mLs NUTRITION DIAGNOSIS: * Swallowing difficulty R/T dysphagia as evidenced by pt is PEG dep. * Increased kcal/prot intake needs R/T wound healing as evidenced by pt admitted wounds including deep unstageable wound @ right lateral foot distal malleolus and DTI @ sacrum. CURRENT TF:Vital AF 1.2 @ 60ml/hr x 24 hrs ENTERAL NUTRITION RECOMMENDATIONS: Osmolite 1.2 @ 60ml/hr x 24 hrs to provide 1440ml, 1728kcal, 80g prot, 1181ml free water * Rec Osmolite 1.2, non fiber containing TF for easy tolerance given possible GIB. * Start @30ml/hr, advance as tolerated 10ml/hr q4-6 hrs to goal * TF @ goal will provide 35kcal/1.63g prot per kg * HOB over 30 degrees * Water flush of 100ml q 8 hrs without IVF ADDITIONAL RECOMMENDATIONS: * CALIBRATED BEDSCALE WT wt in May 2019: 108 lbs vs current EMR wt of 145lbs. * Wound care: continue Vit C Add YUNIOR in 4oz H2O via GT BID * Monitor lytes, replete as needed (4) Failure to thrive syndrome, adult (5) Sepsis Assessment & Plan: Febrile, leukocytosis, lactic acidosis. Abnormal labs. Lactic acidosis improving with fluid resuscitation UA noted pending micro Broad-spectrum antibiotics per infectious disease. Continue with current care and plan will follow with recs (6) Elevated LFTs (7) Suspected COVID-19 virus infection Assessment & Plan: Persistent infiltrate in right lower lobe, likely pneumonia. Recommend correlation with CT to exclude mass lesion. Reji Guy July 22, 2019 13:25
--- NOTE | 2019-07-22 13:56 | Cardiac Electrophysiology PN ---
Assessment/Plan Assessment/Plan 1. Hypertension. Continue amlodipine 5 mg daily, lisinopril 10 mg daily and p.r.n. hydralazine 2. Sepsis. Patient is on vancomycin and Zosyn by by ID. 3. Upper GI bleed. EGD by Dr. Romero Thursday 4. Lactic acidosis, that has resolved. 5. Aspiration pneumonia, on antibiotic. 6. COVID PCR negative x1. Awaiting second COVID to return to longterm. 7. Transaminitis. 8. Advanced dementia. 9. Functional quadriplegia. 10. Dysphagia, s/P PEG placement. 11. Sacral wound. 12. Right foot ulcer. Subjective Subjective Nonverbal in SR. No events. In negative Covid x2. Scheduled for EGD Thursday Objective Last 24 Hour Vital Signs Date Time Temp Pulse Resp B/P (MAP) Pulse Ox O2 Delivery O2 Flow Rate FiO2 07/22/19 12:51 99.1 07/22/19 12:00 100.6 84 19 116/60 (78) 97 07/22/19 09:13 74 120/66 07/22/19 09:12 120/66 07/22/19 09:00 Nasal Cannula 2.0 07/22/19 08:15 73 07/22/19 08:00 96.6 74 19 120/66 (84) 98 07/22/19 04:00 97.8 99 19 103/56 (72) 97 07/22/19 04:00 85 07/22/19 00:00 97.7 99 19 116/62 (80) 98 07/22/19 00:00 89 07/21/19 21:00 Nasal Cannula 2.0 07/21/19 20:00 98 07/21/19 20:00 97.7 78 19 125/75 (92) 98 07/21/19 16:00 85 07/21/19 16:00 97.5 83 18 127/72 (90) 99 Intake and Output 07/21/19 07/22/19 19:00 07:00 Intake Total 60 ml 860 ml Output Total 750 ml Balance 60 ml 110 ml Intake Free Water 200 ml Tube Feeding 60 ml 660 ml Output Urine Total 750 ml # Voids 1 # Bowel Movements 1 1 Laboratory Tests Test 07/22/19 04:00 07/22/19 13:05 White Blood Count 9.2 K/UL (4.8-10.8) Red Blood Count 2.58 M/UL (4.70-6.10) L Hemoglobin 8.0 G/DL (14.2-18.0) L Hematocrit 23.1 % (42.0-52.0) L Mean Corpuscular Volume 90 FL (80-99) Mean Corpuscular Hemoglobin 30.8 PG (27.0-31.0) Mean Corpuscular Hemoglobin Concent 34.4 G/DL (32.0-36.0) Red Cell Distribution Width 14.1 % (11.6-14.8) Platelet Count 417 K/UL (150-450) Mean Platelet Volume 5.3 FL (6.5-10.1) L Neutrophils (%) (Auto) 64.5 % (45.0-75.0) Lymphocytes (%) (Auto) 21.1 % (20.0-45.0) Monocytes (%) (Auto) 8.7 % (1.0-10.0) Eosinophils (%) (Auto) 4.0 % (0.0-3.0) H Basophils (%) (Auto) 1.8 % (0.0-2.0) Sodium Level 140 MMOL/L (136-145) Potassium Level 3.8 MMOL/L (3.5-5.1) Chloride Level 104 MMOL/L (98-107) Carbon Dioxide Level 26 MMOL/L (21-32) Anion Gap 10 mmol/L (5-15) Blood Urea Nitrogen 14 mg/dL (7-18) Creatinine 0.7 MG/DL (0.55-1.30) Estimat Glomerular Filtration Rate > 60 mL/min (>60) Glucose Level 108 MG/DL (74-106) H Calcium Level 8.9 MG/DL (8.5-10.1) Phosphorus Level 3.1 MG/DL (2.5-4.9) Magnesium Level 1.9 MG/DL (1.8-2.4) Total Bilirubin 0.4 MG/DL (0.2-1.0) Aspartate Amino Transf (AST/SGOT) 27 U/L (15-37) Alanine Aminotransferase (ALT/SGPT) 58 U/L (12-78) Alkaline Phosphatase 99 U/L (46-116) Total Protein 7.7 G/DL (6.4-8.2) Albumin 2.6 G/DL (3.4-5.0) L Globulin 5.1 g/dL Albumin/Globulin Ratio 0.5 (1.0-2.7) L Vancomycin Level Trough Pending Microbiology Date/Time Source Procedure Growth Status 07/19/19 17:50 Nasopharynx Coronavirus COVID-19 PCR ([facility]) - Final Complete Objective NECK: No JVD. LUNGS: Coarse rhonchi. CARDIOVASCULAR: Regular S1 and S2 with no gallop. ABDOMEN: Soft, status post G-tube. EXTREMITIES: No pitting edema. Ismael Christine MD July 22, 2019 13:56
[2019-07-22 16:00] VITALS: BP 96/52
--- NOTE | 2019-07-22 19:28 | Infectious Diseases Prog Note ---
Assessment/Plan Assessment/Plan ASSESSMENT AND PLAN: 1. mrsa bacteremia, ? 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 GI bleed and coffee-ground emesis. Treatment per GI and Surgery. 3. Patient has multiple wounds, but did not look like acutely infected. Continue wound care per Surgery. 4. Anemia and GI bleed. 5. Dementia. 6. Dysphagia, G-tube, and aspiration risk. 7. COPD. 8. Hypertension. 9. Depression. 10. PVCs. 11. GERD. 12. Quadriplegia. 13. Failure to thrive. 14. Continue treatment per primary consultants. 15. No known drug allergies. 16. Social history is negative. 17. Family history is noncontributory. 18. MAR was noted. 19. Case discussed with RN. Subjective Constitutional: Reports: fever, fatigue HEENT: Denies: congestion Respiratory: Denies: shortness of breath Cardiovascular: Denies: chest pain Gastrointestinal/Abdominal: Denies: nausea, vomiting, diarrhea Genitourinary: Reports: other - condom catheter Neurologic: Denies: headache Psychiatric: Reports: other - N Skin: Denies: rash Hematologic: Denies: bleeding Musculoskeletal: Denies: pain Allergies: Coded Allergies: No Known Allergies (Unverified , 08/20/18) Objective Vital Signs Last 24 Hour Vital Signs Date Time Temp Pulse Resp B/P (MAP) Pulse Ox O2 Delivery O2 Flow Rate FiO2 07/22/19 18:36 98.4 07/22/19 18:09 98.4 07/22/19 16:00 100.8 82 19 96/52 (67) 97 07/22/19 15:45 67 07/22/19 13:00 99.1 07/22/19 12:28 72 07/22/19 12:00 100.6 84 19 116/60 (78) 97 07/22/19 09:13 74 120/66 07/22/19 09:12 120/66 07/22/19 09:00 Nasal Cannula 2.0 07/22/19 08:15 73 07/22/19 08:00 96.6 74 19 120/66 (84) 98 07/22/19 04:00 97.8 99 19 103/56 (72) 97 07/22/19 04:00 85 07/22/19 00:00 97.7 99 19 116/62 (80) 98 07/22/19 00:00 89 07/21/19 21:00 Nasal Cannula 2.0 07/21/19 20:00 98 07/21/19 20:00 97.7 78 19 125/75 (92) 98 Height (Feet): 5 Height (Inches): 10.00 Weight (Pounds): 129 General Appearance: no acute distress HEENT: normocephalic, atraumatic, anicteric, mucous membranes moist Respiratory/Chest: lungs clear, normal breath sounds, no respiratory distress, no accessory muscle use, crackles/rales - less, rhonchi - bilaterally - less Cardiovascular: normal rate, regular rhythm, no gallop/murmur, no JVD Abdomen: normal bowel sounds, soft, non tender, no organomegaly, non distended Genitourinary: other - + condom catheter - urine clear Extremities: no cyanosis Skin: no rash Neurologic/Psychiatric: 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 The left lung bilateral pleural spaces remain clear. The heart size is normal. Impression: Unchanged right lung reticular infiltrate and associated atelectasis , over 2 days Chest x-ray - 07/22/19 - Procedure: XRAY Chest 1v Indication: Shortness of breath Technique: One view of the chest Comparison: 07/19/2019 Findings: Right basilar atelectasis and or infiltrate appears slightly less prominent than on the prior study, although this could be an artifact of different rotation. There is some atelectasis developing in the left midlung, not evident previously. The remainder the lungs and pleural spaces are clear. The heart size is normal. Impression: Possibly improved right basilar atelectasis and infiltrate, since prior exam of 3 days earlier New atelectasis in the left midlung Microbiology Date/Time Source Procedure Growth Status 07/19/19 04:45 Blood Blood Culture - Preliminary NO GROWTH AFTER 48 HOURS Resulted 07/19/19 17:50 Nasopharynx Coronavirus COVID-19 PCR ([facility]) - Final Complete 07/17/19 09:00 Rectum VRE Culture - Final NO VANCOMYCIN RESISTANT ENTEROCOCCUS ... 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 Laboratory Tests Test 07/22/19 04:00 07/22/19 13:05 White Blood Count 9.2 K/UL (4.8-10.8) Red Blood Count 2.58 M/UL (4.70-6.10) L Hemoglobin 8.0 G/DL (14.2-18.0) L Hematocrit 23.1 % (42.0-52.0) L Mean Corpuscular Volume 90 FL (80-99) Mean Corpuscular Hemoglobin 30.8 PG (27.0-31.0) Mean Corpuscular Hemoglobin Concent 34.4 G/DL (32.0-36.0) Red Cell Distribution Width 14.1 % (11.6-14.8) Platelet Count 417 K/UL (150-450) Mean Platelet Volume 5.3 FL (6.5-10.1) L Neutrophils (%) (Auto) 64.5 % (45.0-75.0) Lymphocytes (%) (Auto) 21.1 % (20.0-45.0) Monocytes (%) (Auto) 8.7 % (1.0-10.0) Eosinophils (%) (Auto) 4.0 % (0.0-3.0) H Basophils (%) (Auto) 1.8 % (0.0-2.0) Sodium Level 140 MMOL/L (136-145) Potassium Level 3.8 MMOL/L (3.5-5.1) Chloride Level 104 MMOL/L (98-107) Carbon Dioxide Level 26 MMOL/L (21-32) Anion Gap 10 mmol/L (5-15) Blood Urea Nitrogen 14 mg/dL (7-18) Creatinine 0.7 MG/DL (0.55-1.30) Estimat Glomerular Filtration Rate > 60 mL/min (>60) Glucose Level 108 MG/DL (74-106) H Calcium Level 8.9 MG/DL (8.5-10.1) Phosphorus Level 3.1 MG/DL (2.5-4.9) Magnesium Level 1.9 MG/DL (1.8-2.4) Total Bilirubin 0.4 MG/DL (0.2-1.0) Aspartate Amino Transf (AST/SGOT) 27 U/L (15-37) Alanine Aminotransferase (ALT/SGPT) 58 U/L (12-78) Alkaline Phosphatase 99 U/L (46-116) Total Protein 7.7 G/DL (6.4-8.2) Albumin 2.6 G/DL (3.4-5.0) L Globulin 5.1 g/dL Albumin/Globulin Ratio 0.5 (1.0-2.7) L Vancomycin Level Trough 17.7 ug/mL (5.0-12.0) H Current Medications Medications (Trade) Dose Ordered Sig/Altagracia Route PRN Reason Start Time Stop Time Status Last Admin Dose Admin Acetaminophen (Tylenol) 650 mg Q4H PRN ORAL Temp >100.5 07/17/19 10:15 08/16/19 10:14 07/22/19 17:39 Acetaminophen (Tylenol) 650 mg Q4H PRN ORAL Mild Pain (Pain Scale 1-3) 07/17/19 10:15 08/16/19 10:14 Amlodipine Besylate (Norvasc) 5 mg DAILY GT 07/18/19 09:00 08/17/19 08:59 07/22/19 09:13 Ascorbic Acid (Vitamin C) 250 mg TWICE A DAY GT 07/18/19 09:00 08/17/19 08:59 07/22/19 17:38 Bisacodyl (Dulcolax) 10 mg DAILYPRN PRN RECTAL Constipation 07/17/19 10:15 10/15/19 10:14 Dextrose (Dextrose 50%) 25 ml Q30M PRN IV Hypoglycemia 07/17/19 10:15 10/15/19 10:14 Dextrose (Dextrose 50%) 50 ml Q30M PRN IV Hypoglycemia 07/17/19 10:15 10/15/19 10:14 Finasteride (Proscar) 5 mg DAILY ORAL 07/18/19 09:00 10/16/19 08:59 07/22/19 09:12 Hydralazine HCl (Apresoline) 25 mg Q6H PRN GT SBP > 160 07/17/19 10:15 10/15/19 10:14 Lactulose (Cephulac) 20 gm THREE TIMES A DAY ORAL 07/19/19 13:00 08/18/19 12:59 07/22/19 17:38 Lisinopril (PriniviL) 10 mg DAILY GT 07/18/19 09:00 08/17/19 08:59 07/22/19 09:12 Magnesium Hydroxide (Mom) 30 ml HSPRN PRN ORAL Constipation 07/17/19 10:15 08/16/19 10:14 Multivitamins (Multivitamins) 1 tab DAILY GT 07/18/19 09:00 08/17/19 08:59 07/22/19 09:12 Ondansetron HCl (Zofran) 4 mg Q6H PRN IVP Nausea & Vomiting 07/17/19 10:15 08/16/19 10:14 Pantoprazole (Protonix) 40 mg EVERY 12 HOURS IV 07/17/19 21:00 08/16/19 20:59 07/22/19 09:12 Piperacillin Sod/ Tazobactam Sod 3.375 gm/Dextrose 110 ml @ 27.5 mls/hr EVERY 8 HOURS IVPB 07/20/19 22:00 07/25/19 21:59 07/22/19 15:34 Polyethylene Glycol (Miralax) 17 gm DAILYPRN PRN ORAL Constipation 07/17/19 10:15 08/16/19 10:14 Potassium Chloride (K-Dur) 20 meq DAILY GT 07/18/19 09:00 10/16/19 08:59 07/22/19 09:13 Tamsulosin HCl (Flomax) 0.4 mg DAILY ORAL 07/18/19 09:00 08/17/19 08:59 07/22/19 09:13 Thiamine HCl (Vitamin B1) 100 mg DAILY GT 07/18/19 09:00 08/17/19 08:59 07/22/19 09:12 Tramadol HCl (Ultram) 50 mg Q8H PRN ORAL Severe Pain (Pain Scale 7-10) 07/17/19 16:45 07/24/19 16:44 Vancomycin HCl (Vanco rx to dose) 1 ea DAILY PRN MISC Per rx protocol 07/17/19 12:15 08/16/19 12:14 Vancomycin HCl 750 mg/Sodium Chloride 275 ml @ 183.333 mls/hr Q12H IVPB 07/21/19 02:00 07/26/19 01:59 07/22/19 13:38 Bonny Rincon MD July 22, 2019 19:28
--- NOTE | 2019-07-22 19:45 | NUR ---
HANDOFF REPORT/PM Verbal report received from RN. Plan: Transfer to Medical Bed when available. R/O Covid with negative swab X2 07/17/2019 and 07/19/2019.
--- NOTE | 2019-07-22 19:58 | NUR ---
HAND-OFF: Report given to ANTOINETTE Mora. Pt in stable condition, endorsed plan of care.
[2019-07-22 20:00] VITALS: BP 109/52
--- NOTE | 2019-07-22 23:00 | NUR ---
TRANSFER REPORT Transferred pt via bed to Room #418 bed 1. O2 continued @ 2L/NC via portable O2 tank. Vital AF 1.2 @ 60ml/h, water flush @ 100ml/q6 via G tube continued. Condom cath remains intact. Verbal report given to Goyo CURRY. Relinquished care of pt at this time.
--- NOTE | 2019-07-22 23:30 | NUR ---
NURSE NOTES: Receive a transfer pt from tele nurse ANTOINETTE Miramontes. Pt is non verbal awake. No sob,cough, and fever. Vitals are stable. Pt has gtube running vital AF 1.2 60cc. pt has condom cath. 22 G iv on his L hand TKO. Pt is on contact isolation because of active MRSA. pt is covid 19 negative x2. Wound dressings are clean and dry. Bed is in the lower position,locked and alarm on. Call light within reach. We will keep monitoring the pt.
[2019-07-23] VITALS: BP 85/53
[2019-07-23] MEDS ORDERED: HydrALAZINE 25mg tab GT PRN (01:30)
[2019-07-23] MEDS ORDERED: Acetaminophen 650mg/20.3ml GT PRN ×2 (01:45→02:15)
[2019-07-23] MEDS: Vancomycin 750 MG in NS 275 ML IVPB SCH ×3 (02:27→22:57)
[2019-07-23 04:00] VITALS: BP 113/64
[2019-07-23] MEDS: Piperacillin/Tazobactam 3.375 GM in D5W 110 ML IVPB SCH ×3 (05:41→22:57)
--- NOTE | 2019-07-23 07:30 | NUR ---
HAND-OFF: Report given to Alie diaz RN.
[2019-07-23 07:33] LABS: HEMATOCRIT 22.3 % (42.0-52.0); HEMOGLOBIN 7.5 G/DL (14.2-18.0); MEAN CORPUSCULAR VOLUME 90 FL (80-99); PLATELET COUNT 365 K/UL (150-450); RED BLOOD COUNT 2.47 M/UL (4.70-6.10); RED CELL DISTRIBUTION WIDTH 14.3 % (11.6-14.8); WHITE BLOOD COUNT 7.5 K/UL (4.8-10.8)
[2019-07-23 07:34] LABS: ALANINE AMINOTRANSFERASE 53 U/L (12-78); ALBUMIN 2.5 G/DL (3.4-5.0); ALBUMIN/GLOBULIN RATIO 0.5 (1.0-2.7); ALKALINE PHOSPHATASE 82 U/L (46-116); ANION GAP 10 mmol/L (5-15); ASPARTATE AMINO TRANSFERASE 27 U/L (15-37); BILIRUBIN,TOTAL 0.2 MG/DL (0.2-1.0); BLOOD UREA NITROGEN 18 mg/dL (7-18); CARBON DIOXIDE 23 MMOL/L (21-32); CHLORIDE 105 MMOL/L (98-107); CREATININE 0.8 MG/DL (0.55-1.30); PHOSPHORUS 3.6 MG/DL (2.5-4.9); POTASSIUM 3.8 MMOL/L (3.5-5.1); SODIUM 138 MMOL/L (136-145)
[2019-07-23 08:00] VITALS: BP 102/54
[2019-07-23] MEDS ORDERED: traMADol 50mg tab GT PRN (08:45)
[2019-07-23] MEDS: Lactulose 20gm/30ml UDC GT SCH ×4 (09:00→17:08)
[2019-07-23] MEDS: Lisinopril 10mg tab GT SCH (09:00)
[2019-07-23] MEDS: Pantoprazole Inj IV SCH ×2 (09:38→22:56)
[2019-07-23] MEDS: Thiamine 100mg tab GT SCH (09:39)
[2019-07-23] MEDS: Tamsulosin 0.4mg cap ORAL SCH (09:39)
[2019-07-23] MEDS ORDERED: Milk of Magnesia 30ml Ud GT PRN (10:15)
[2019-07-23] MEDS ORDERED: Miralax 17gm pkt GT PRN (10:15)
[2019-07-23] MEDS: Ascorbic Acid 500mg tab GT SCH ×2 (10:35→17:08)
--- NOTE | 2019-07-23 10:38 | NUR ---
NURSE NOTES: BP = 102/54; BP meds held per parameter. LFTs normal, pt had slightly loose BM this AM, held lactulose. Reported HGB of 7.[address] Romero. Awaiting response. Will continue to f/u.
--- NOTE | 2019-07-23 11:05 | NUR ---
NURSE NOTES: Received response from Dr. Romero. No new orders at this time.
[2019-07-23 12:00] VITALS: BP 125/66
--- NOTE | 2019-07-23 15:56 | Cardiac Electrophysiology PN ---
Assessment/Plan Assessment/Plan 1. Hypertension. Continue amlodipine 5 mg daily, lisinopril 10 mg daily and p.r.n. hydralazine 2. Sepsis. Patient is on vancomycin and Zosyn by by ID. 3. Upper GI bleed. No active bleed. EGD by Dr. Romero Thursday 4. Lactic acidosis, that has resolved. 5. Aspiration pneumonia, on antibiotic. 6. COVID PCR negative x1. Awaiting second COVID to return to long term. 7. Transaminitis. 8. Advanced dementia. 9. Functional quadriplegia. 10. Dysphagia, s/P PEG placement. 11. Sacral wound. 12. Right foot ulcer. Subjective Subjective Nonverbal in SR.Negative Covid x2. Scheduled for EGD Thursday Objective Last 24 Hour Vital Signs Date Time Temp Pulse Resp B/P (MAP) Pulse Ox O2 Delivery O2 Flow Rate FiO2 07/23/19 12:00 97.7 72 18 125/66 (85) 99 07/23/19 09:00 102/54 07/23/19 09:00 96 102/54 07/23/19 09:00 Nasal Cannula 2.0 07/23/19 08:00 97.9 96 18 102/54 (70) 98 07/23/19 04:00 97.6 78 21 113/64 (80) 95 07/23/19 00:00 98.1 68 20 85/53 (64) 96 07/22/19 21:00 Nasal Cannula 2.0 07/22/19 20:00 97.2 59 20 109/52 (71) 96 07/22/19 18:36 98.4 07/22/19 18:09 98.4 07/22/19 16:00 100.8 82 19 96/52 (67) 97 Intake and Output 07/22/19 07/23/19 19:00 07:00 Intake Total 660 ml 454.166 ml Output Total 1300 ml 200 ml Balance -640 ml 254.166 ml IV Total 394.166 ml Tube Feeding 660 ml 60 ml Output Urine Total 1300 ml 200 ml # Voids 1 # Bowel Movements 2 Laboratory Tests Test 07/23/19 06:50 White Blood Count 7.5 K/UL (4.8-10.8) Red Blood Count 2.47 M/UL (4.70-6.10) L Hemoglobin 7.5 G/DL (14.2-18.0) L Hematocrit 22.3 % (42.0-52.0) L Mean Corpuscular Volume 90 FL (80-99) Mean Corpuscular Hemoglobin 30.4 PG (27.0-31.0) Mean Corpuscular Hemoglobin Concent 33.6 G/DL (32.0-36.0) Red Cell Distribution Width 14.3 % (11.6-14.8) Platelet Count 365 K/UL (150-450) Mean Platelet Volume 5.4 FL (6.5-10.1) L Neutrophils (%) (Auto) % (45.0-75.0) Lymphocytes (%) (Auto) % (20.0-45.0) Monocytes (%) (Auto) % (1.0-10.0) Eosinophils (%) (Auto) % (0.0-3.0) Basophils (%) (Auto) % (0.0-2.0) Differential Total Cells Counted 100 Neutrophils % (Manual) 57 % (45-75) Lymphocytes % (Manual) 27 % (20-45) Monocytes % (Manual) 9 % (1-10) Eosinophils % (Manual) 5 % (0-3) H Basophils % (Manual) 2 % (0-2) Band Neutrophils 0 % (0-8) Platelet Estimate Adequate Platelet Morphology Normal Hypochromasia 3+ Anisocytosis 1+ Spherocytes 2+ Sodium Level 138 MMOL/L (136-145) Potassium Level 3.8 MMOL/L (3.5-5.1) Chloride Level 105 MMOL/L (98-107) Carbon Dioxide Level 23 MMOL/L (21-32) Anion Gap 10 mmol/L (5-15) Blood Urea Nitrogen 18 mg/dL (7-18) Creatinine 0.8 MG/DL (0.55-1.30) Estimat Glomerular Filtration Rate > 60 mL/min (>60) Glucose Level 100 MG/DL (74-106) Calcium Level 9.0 MG/DL (8.5-10.1) Phosphorus Level 3.6 MG/DL (2.5-4.9) Magnesium Level 1.9 MG/DL (1.8-2.4) Total Bilirubin 0.2 MG/DL (0.2-1.0) Aspartate Amino Transf (AST/SGOT) 27 U/L (15-37) Alanine Aminotransferase (ALT/SGPT) 53 U/L (12-78) Alkaline Phosphatase 82 U/L (46-116) Total Protein 7.2 G/DL (6.4-8.2) Albumin 2.5 G/DL (3.4-5.0) L Globulin 4.7 g/dL Albumin/Globulin Ratio 0.5 (1.0-2.7) L Objective NECK: No JVD. LUNGS: Coarse rhonchi. CARDIOVASCULAR: Regular S1 and S2 with no gallop. ABDOMEN: Soft, status post G-tube. EXTREMITIES: No pitting edema. Ismael Christine MD July 23, 2019 15:56
[2019-07-23 16:00] VITALS: BP 114/57
--- NOTE | 2019-07-23 16:05 | NUR ---
NURSE NOTES: collected urine specimen and sent it to lab for UA ordered yesterday.
--- NOTE | 2019-07-23 16:46 | GI Progress Note ---
Assessment/Plan Problems: (1) Severe malnutrition ICD Codes: E43 - Unspecified severe protein-calorie malnutrition SNOMED: 78175738 (2) Failure to thrive syndrome, adult ICD Codes: R62.7 - Failure to thrive syndrome, adult SNOMED: 807671547 (3) Elevated LFTs ICD Codes: R94.5 - Abnormal results of liver function studies SNOMED: 360226372, 207116601 (4) Encounter for PEG (percutaneous endoscopic gastrostomy) ICD Codes: Z43.1 - Encounter for attention to gastrostomy SNOMED: 917249820, 915502230 Status: unchanged Status Narrative Discussed with Dr. Romero. Assessment/Plan 1. History of chronic anemia. 2. H. pylori negative gastritis. 3. Hiatal hernia. 4. Hemorrhoids. 5. Dementia. 6. Hypertension. 7. UTI. 8. Hypercholesteremia. 9. Patient has dysphagia with a G-tube. 10 GIB 11. elevated LFTS drop in H&H without active bleed stool ob positive ppi transfuse to keep HGB above 7.5 abx per id positive blood cultures on lactulose GTF EGD for today was canceled given patient was not NPO despite the orders! plan EGD and colonoscopy on Thursday if patient still in house will fu The patient was seen and examined at bedside and all new and available data was reviewed in the patients chart. I agree with the above findings, impression and plan. (Patient seen earlier today. Signature stamp does not reflect patient encounter time.). - Ramiro Romero MD Subjective Gastrointestinal/Abdominal: Reports: no symptoms Objective Last 24 Hour Vital Signs Date Time Temp Pulse Resp B/P (MAP) Pulse Ox O2 Delivery O2 Flow Rate FiO2 07/23/19 12:00 97.7 72 18 125/66 (85) 99 07/23/19 09:00 102/54 07/23/19 09:00 96 102/54 07/23/19 09:00 Nasal Cannula 2.0 07/23/19 08:00 97.9 96 18 102/54 (70) 98 07/23/19 04:00 97.6 78 21 113/64 (80) 95 07/23/19 00:00 98.1 68 20 85/53 (64) 96 07/22/19 21:00 Nasal Cannula 2.0 07/22/19 20:00 97.2 59 20 109/52 (71) 96 07/22/19 18:36 98.4 07/22/19 18:09 98.4 Intake and Output 07/22/19 07/23/19 19:00 07:00 Intake Total 660 ml 454.166 ml Output Total 1300 ml 200 ml Balance -640 ml 254.166 ml IV Total 394.166 ml Tube Feeding 660 ml 60 ml Output Urine Total 1300 ml 200 ml # Voids 1 # Bowel Movements 2 Laboratory Tests Test 07/23/19 06:50 07/23/19 16:00 White Blood Count 7.5 K/UL (4.8-10.8) Red Blood Count 2.47 M/UL (4.70-6.10) L Hemoglobin 7.5 G/DL (14.2-18.0) L Hematocrit 22.3 % (42.0-52.0) L Mean Corpuscular Volume 90 FL (80-99) Mean Corpuscular Hemoglobin 30.4 PG (27.0-31.0) Mean Corpuscular Hemoglobin Concent 33.6 G/DL (32.0-36.0) Red Cell Distribution Width 14.3 % (11.6-14.8) Platelet Count 365 K/UL (150-450) Mean Platelet Volume 5.4 FL (6.5-10.1) L Neutrophils (%) (Auto) % (45.0-75.0) Lymphocytes (%) (Auto) % (20.0-45.0) Monocytes (%) (Auto) % (1.0-10.0) Eosinophils (%) (Auto) % (0.0-3.0) Basophils (%) (Auto) % (0.0-2.0) Differential Total Cells Counted 100 Neutrophils % (Manual) 57 % (45-75) Lymphocytes % (Manual) 27 % (20-45) Monocytes % (Manual) 9 % (1-10) Eosinophils % (Manual) 5 % (0-3) H Basophils % (Manual) 2 % (0-2) Band Neutrophils 0 % (0-8) Platelet Estimate Adequate Platelet Morphology Normal Hypochromasia 3+ Anisocytosis 1+ Spherocytes 2+ Sodium Level 138 MMOL/L (136-145) Potassium Level 3.8 MMOL/L (3.5-5.1) Chloride Level 105 MMOL/L (98-107) Carbon Dioxide Level 23 MMOL/L (21-32) Anion Gap 10 mmol/L (5-15) Blood Urea Nitrogen 18 mg/dL (7-18) Creatinine 0.8 MG/DL (0.55-1.30) Estimat Glomerular Filtration Rate > 60 mL/min (>60) Glucose Level 100 MG/DL (74-106) Calcium Level 9.0 MG/DL (8.5-10.1) Phosphorus Level 3.6 MG/DL (2.5-4.9) Magnesium Level 1.9 MG/DL (1.8-2.4) Total Bilirubin 0.2 MG/DL (0.2-1.0) Aspartate Amino Transf (AST/SGOT) 27 U/L (15-37) Alanine Aminotransferase (ALT/SGPT) 53 U/L (12-78) Alkaline Phosphatase 82 U/L (46-116) Total Protein 7.2 G/DL (6.4-8.2) Albumin 2.5 G/DL (3.4-5.0) L Globulin 4.7 g/dL Albumin/Globulin Ratio 0.5 (1.0-2.7) L Urine Color Pending Urine Appearance Pending Urine pH Pending Urine Specific [place] Pending Urine Protein Pending Urine Glucose (UA) Pending Urine Ketones Pending Urine Blood Pending Urine Nitrite Pending Urine Bilirubin Pending Urine Urobilinogen Pending Urine Leukocyte Esterase Pending Height (Feet): 5 Height (Inches): 10.00 Weight (Pounds): 129 General Appearance: WD/WN, no apparent distress, alert Cardiovascular: normal rate Respiratory/Chest: normal breath sounds, no respiratory distress Abdominal Exam: normal bowel sounds, non tender, soft Extremities: normal range of motion, non-tender Stevo Milligan NP July 23, 2019 16:46
[2019-07-23 16:47] LABS: APPEARANCE,URINE CLEAR; BILIRUBIN, URINE NEGATIVE (NEGATIVE); COLOR,URINE PALE YELLOW; GLUCOSE, URINE (UA) NEGATIVE (NEGATIVE); KETONES,URINE NEGATIVE (NEGATIVE); LEUKOCYTE ESTERASE ,URINE NEGATIVE (NEGATIVE); NITRITE,URINE NEGATIVE (NEGATIVE); PH,URINE 7 (4.5-8.0); PROTEIN,URINE NEGATIVE (NEGATIVE); UROBILINOGEN,URINE NORMAL MG/DL (0.0-1.0)
--- NOTE | 2019-07-23 16:58 | General Progress Note ---
Assessment/Plan Status: unchanged Assessment/Plan: HPI/CC: 73-year-old male with PMH of advanced dementia (bedbound, nonverbal, PEG dependent at baseline), dysphasia s/p PEG tube, COPD, HTN, depression, PVCs , GERD, functional quadriplegia, adult failure to thrive, sacral ulcer who presents from rehab facility for hematemesis. On admission pt was noted to have temperature of 100.9 rectally, rhonchorous cough. CXR performed which showed RLL infiltrate. Patient admitted for further treatment and evaluation. Patient subsequently found to have MRSA Bacteremia initial COVID test negative. Assessment #Hematemesis, R/O UGIB, currently HGB stable, EGD pending for 07/24 #Sepsis Multifactoral secondary to MRSA Bacteremia, Aspiration PNA/HCAP #R/O COVID, now two negative tests --Negative #Decubitus Ulcers/Diffuse Pressure wounds #HTN #BPH #Dementia/FTT/Functional Quadriplegia, PEG tube dependent Plan Consults include ID, Surgery, Cardio, GI Continue Protonix IV BID --> Pending EGD Continue Vancomycin IV & Zosyn IV, appreciate ID Transfuse HGB prn per GI parameters Lisinopril, Tamsulosin--> d/c finasteride as not PEG compatible PRN BP and pain meds Wound Care per Surgery Diet per GI Subjective Date patient seen: July 23, 2019 Time patient seen: 12:00 Allergies: Coded Allergies: No Known Allergies (Unverified , 08/20/18) Subjective no new events ; HGB noted, no transfusion at this point, EGD thursday Objective Last 24 Hour Vital Signs Date Time Temp Pulse Resp B/P (MAP) Pulse Ox O2 Delivery O2 Flow Rate FiO2 07/23/19 12:00 97.7 72 18 125/66 (85) 99 07/23/19 09:00 102/54 07/23/19 09:00 96 102/54 07/23/19 09:00 Nasal Cannula 2.0 07/23/19 08:00 97.9 96 18 102/54 (70) 98 07/23/19 04:00 97.6 78 21 113/64 (80) 95 07/23/19 00:00 98.1 68 20 85/53 (64) 96 07/22/19 21:00 Nasal Cannula 2.0 07/22/19 20:00 97.2 59 20 109/52 (71) 96 07/22/19 18:36 98.4 07/22/19 18:09 98.4 Intake and Output 07/22/19 07/23/19 19:00 07:00 Intake Total 660 ml 454.166 ml Output Total 1300 ml 200 ml Balance -640 ml 254.166 ml IV Total 394.166 ml Tube Feeding 660 ml 60 ml Output Urine Total 1300 ml 200 ml # Voids 1 # Bowel Movements 2 Laboratory Tests 07/23/19 06:50: White Blood Count 7.5, Red Blood Count 2.47L, Hemoglobin 7.5L, Hematocrit 22.3L , Mean Corpuscular Volume 90, Mean Corpuscular Hemoglobin 30.4, Mean Corpuscular Hemoglobin Concent 33.6, Red Cell Distribution Width 14.3, Platelet Count 365, Mean Platelet Volume 5.4L, Neutrophils (%) (Auto) , Lymphocytes (%) ( Auto) , Monocytes (%) (Auto) , Eosinophils (%) (Auto) , Basophils (%) (Auto) , Differential Total Cells Counted 100, Neutrophils % (Manual) 57, Lymphocytes % ( Manual) 27, Monocytes % (Manual) 9, Eosinophils % (Manual) 5H, Basophils % ( Manual) 2, Band Neutrophils 0, Platelet Estimate Adequate, Platelet Morphology Normal, Hypochromasia 3+, Anisocytosis 1+, Spherocytes 2+, Sodium Level 138, Potassium Level 3.8, Chloride Level 105, Carbon Dioxide Level 23, Anion Gap 10, Blood Urea Nitrogen 18, Creatinine 0.8, Estimat Glomerular Filtration Rate > 60 , Glucose Level 100, Calcium Level 9.0, Phosphorus Level 3.6, Magnesium Level 1.9, Total Bilirubin 0.2, Aspartate Amino Transf (AST/SGOT) 27, Alanine Aminotransferase (ALT/SGPT) 53, Alkaline Phosphatase 82, Total Protein 7.2, Albumin 2.5L, Globulin 4.7, Albumin/Globulin Ratio 0.5L 07/23/19 16:00: Urine Color Pale yellow, Urine Appearance Clear, Urine pH 7, Urine Specific [place] 1.010, Urine Protein Negative, Urine Glucose (UA) Negative, Urine Ketones Negative, Urine Blood Negative, Urine Nitrite Negative, Urine Bilirubin Negative, Urine Urobilinogen Normal, Urine Leukocyte Esterase Negative Height (Feet): 5 Height (Inches): 10.00 Weight (Pounds): 129 Objective General Appearance: no apparent distress, other - demented EENT: PERRL/EOMI Cardiovascular: normal rate, regular rhythm Respiratory/Chest: lungs clear, normal breath sounds Abdomen: soft, other - peg tube Extremities: other - muscle wasting Neurologic: disoriented Rena Deluca D.O. July 23, 2019 16:58
--- NOTE | 2019-07-23 19:46 | NUR ---
HAND-OFF: Report given to Saritha and endorsed plan of care.
[2019-07-23 20:00] VITALS: BP 104/75
--- NOTE | 2019-07-23 20:00 | NUR ---
NURSE NOTES: RECEIVED PATIENT FROM ANTOINETTE OBRIEN. PATIENT IS ASLEEP, ON NC 2L, NO ACUTE DISTRESS NOTED. G-TUBE FEEDING IN PLACE, PATENT, RUNNING VITAL AF 1.2@60CC/HR. NO RESIDUALS, PATIENT IS TOLERATING FEEDING WELL. WOUND DRESSINGS INTACT AND DRY. CONDOM CATH PRESENT, DRAINING WELL, NO REDNESS NOTED. IV IS INTACT AND PATENT. BED IS LOCKED AND LOW, BED ALARMS ACTIVE, SIDE RAILS UPX2 AND CALL LIGHT IS WITHIN REACH. WILL CONTINUE TO MONITOR.
--- NOTE | 2019-07-23 20:34 | Surgery Progress Note ---
Surgery Progress Note Subjective Additional Comments no acute events Objective Last 24 Hour Vital Signs Date Time Temp Pulse Resp B/P (MAP) Pulse Ox O2 Delivery O2 Flow Rate FiO2 07/23/19 16:00 100.4 72 20 114/57 (76) 99 07/23/19 12:00 97.7 72 18 125/66 (85) 99 07/23/19 09:00 102/54 07/23/19 09:00 96 102/54 07/23/19 09:00 Nasal Cannula 2.0 07/23/19 08:00 97.9 96 18 102/54 (70) 98 07/23/19 04:00 97.6 78 21 113/64 (80) 95 07/23/19 00:00 98.1 68 20 85/53 (64) 96 07/22/19 21:00 Nasal Cannula 2.0 I&O Intake and Output 07/22/19 07/23/19 19:00 07:00 Intake Total 660 ml 514.166 ml Output Total 1300 ml 200 ml Balance -640 ml 314.166 ml IV Total 394.166 ml Tube Feeding 660 ml 120 ml Output Urine Total 1300 ml 200 ml # Voids 1 # Bowel Movements 2 Dressing: other Wound: other Drains: other Cardiovascular: RSR Respiratory: decreased breath sounds Abdomen: soft, non-tender, present bowel sounds Extremities: no cyanosis Laboratory Tests Test 07/23/19 06:50 07/23/19 16:00 White Blood Count 7.5 K/UL (4.8-10.8) Red Blood Count 2.47 M/UL (4.70-6.10) L Hemoglobin 7.5 G/DL (14.2-18.0) L Hematocrit 22.3 % (42.0-52.0) L Mean Corpuscular Volume 90 FL (80-99) Mean Corpuscular Hemoglobin 30.4 PG (27.0-31.0) Mean Corpuscular Hemoglobin Concent 33.6 G/DL (32.0-36.0) Red Cell Distribution Width 14.3 % (11.6-14.8) Platelet Count 365 K/UL (150-450) Mean Platelet Volume 5.4 FL (6.5-10.1) L Neutrophils (%) (Auto) % (45.0-75.0) Lymphocytes (%) (Auto) % (20.0-45.0) Monocytes (%) (Auto) % (1.0-10.0) Eosinophils (%) (Auto) % (0.0-3.0) Basophils (%) (Auto) % (0.0-2.0) Differential Total Cells Counted 100 Neutrophils % (Manual) 57 % (45-75) Lymphocytes % (Manual) 27 % (20-45) Monocytes % (Manual) 9 % (1-10) Eosinophils % (Manual) 5 % (0-3) H Basophils % (Manual) 2 % (0-2) Band Neutrophils 0 % (0-8) Platelet Estimate Adequate Platelet Morphology Normal Hypochromasia 3+ Anisocytosis 1+ Spherocytes 2+ Sodium Level 138 MMOL/L (136-145) Potassium Level 3.8 MMOL/L (3.5-5.1) Chloride Level 105 MMOL/L (98-107) Carbon Dioxide Level 23 MMOL/L (21-32) Anion Gap 10 mmol/L (5-15) Blood Urea Nitrogen 18 mg/dL (7-18) Creatinine 0.8 MG/DL (0.55-1.30) Estimat Glomerular Filtration Rate > 60 mL/min (>60) Glucose Level 100 MG/DL (74-106) Calcium Level 9.0 MG/DL (8.5-10.1) Phosphorus Level 3.6 MG/DL (2.5-4.9) Magnesium Level 1.9 MG/DL (1.8-2.4) Total Bilirubin 0.2 MG/DL (0.2-1.0) Aspartate Amino Transf (AST/SGOT) 27 U/L (15-37) Alanine Aminotransferase (ALT/SGPT) 53 U/L (12-78) Alkaline Phosphatase 82 U/L (46-116) Total Protein 7.2 G/DL (6.4-8.2) Albumin 2.5 G/DL (3.4-5.0) L Globulin 4.7 g/dL Albumin/Globulin Ratio 0.5 (1.0-2.7) L Urine Color Pale yellow Urine Appearance Clear Urine pH 7 (4.5-8.0) Urine Specific [place] 1.010 (1.005-1.035) Urine Protein Negative (NEGATIVE) Urine Glucose (UA) Negative (NEGATIVE) Urine Ketones Negative (NEGATIVE) Urine Blood Negative (NEGATIVE) Urine Nitrite Negative (NEGATIVE) Urine Bilirubin Negative (NEGATIVE) Urine Urobilinogen Normal MG/DL (0.0-1.0) Urine Leukocyte Esterase Negative (NEGATIVE) Plan Problems: (1) GI bleed Assessment & Plan: Patient noted to have coffee-ground emesis and melena. Hemoglobin noted and stable No active bleeding noted at this time No gross blood on rectal Trend labs will monitor Appreciate GI input (2) Decubitus skin ulcer Assessment & Plan: Patient presents on admission with multiple skin concerns. Patient identified to have a 2 cm x 1 cm x 2 mm deep unstageable right lateral foot distal malleolus decubitus ulcer with slough in the base raised edges periwound with mild erythema no active drainage no acute active infectious process no foul odor. Patient identified to have deep tissue injury around the area of the issue him and sacrum. Prior healing skin changes identified. No active drainage no fluctuance. Overall patient very deconditioned and malnutrition. Albumin low. Currently sepsis Nutritional optimization very important Treatment plan: Wash right foot daily with normal saline. Apply Thera honey followed by gauze and foam dressing to the right foot ulcer change daily and as needed saturation Apply skin protectant and foam dressing to the bilateral ischio and sacral region change every 3 days and as needed saturation Monitor for incontinence Change accordingly Turn every 2 hours Offload pressure with air mattress pressure release Offload heels with pillow under calves We will follow with recommendations thank you for let me participate patient's care (3) Severe malnutrition Assessment & Plan: DAILY ESTIMATED NEEDS: Needs based on Wounds, wasting/ 49kg 30-35 kcals/kg 0883-1308 total kcals 1.25-2.0 g protein/kg 61-98 g total protein 25-30 mL/kg 6733-6826 total fluid mLs NUTRITION DIAGNOSIS: * Swallowing difficulty R/T dysphagia as evidenced by pt is PEG dep. * Increased kcal/prot intake needs R/T wound healing as evidenced by pt admitted wounds including deep unstageable wound @ right lateral foot distal malleolus and DTI @ sacrum. CURRENT TF:Vital AF 1.2 @ 60ml/hr x 24 hrs ENTERAL NUTRITION RECOMMENDATIONS: Osmolite 1.2 @ 60ml/hr x 24 hrs to provide 1440ml, 1728kcal, 80g prot, 1181ml free water * Rec Osmolite 1.2, non fiber containing TF for easy tolerance given possible GIB. * Start @30ml/hr, advance as tolerated 10ml/hr q4-6 hrs to goal * TF @ goal will provide 35kcal/1.63g prot per kg * HOB over 30 degrees * Water flush of 100ml q 8 hrs without IVF ADDITIONAL RECOMMENDATIONS: * CALIBRATED BEDSCALE WT wt in May 2019: 108 lbs vs current EMR wt of 145lbs. * Wound care: continue Vit C Add YUNIOR in 4oz H2O via GT BID * Monitor lytes, replete as needed (4) Failure to thrive syndrome, adult (5) Sepsis Assessment & Plan: Febrile, leukocytosis, lactic acidosis. Abnormal labs. Lactic acidosis improving with fluid resuscitation UA noted pending micro Broad-spectrum antibiotics per infectious disease. Continue with current care and plan will follow with recs (6) Elevated LFTs (7) Suspected COVID-19 virus infection Assessment & Plan: Persistent infiltrate in right lower lobe, likely pneumonia. Recommend correlation with CT to exclude mass lesion. Reji Guy July 23, 2019 20:34
[2019-07-24] VITALS: BP 105/60
[2019-07-24] MEDS: Vancomycin 750 MG in NS 275 ML IVPB SCH ×2 (02:01→14:38)
[2019-07-24 04:00] VITALS: BP 124/65
[2019-07-24] MEDS: Piperacillin/Tazobactam 3.375 GM in D5W 110 ML IVPB SCH ×3 (06:00→21:06)
--- NOTE | 2019-07-24 07:49 | NUR ---
HAND-OFF: Report given to ANTOINETTE Austin, and ANTOINETTE Cameron.
--- NOTE | 2019-07-24 07:55 | NUR ---
NURSE NOTES: Received patient lying on his right side on semi-esteves's position on hospital bed. Patient is awake, nonverbal, and unable to make needs known requiring maximum assistance in all ADLs. Patient is on O2 at 2LPM via NC with no s/s of distress noted at this time. Patient has G-tube in place infusing Vital AF at 60 ml/hr. IV site on L hand intact with no s/s of infiltration with IV abx infusing as ordered. Patient is incontinent to both bladder and bowel with condom catheter attached urinary bag in place. Patient has bed alarm on with bed on lowest position. Skin intact with no s/s of breakdown. Will continue to monitor patient and follow POC.
[2019-07-24 08:00] VITALS: BP 137/78
[2019-07-24] MEDS: Ascorbic Acid 500mg tab GT SCH ×2 (09:01→17:59)
[2019-07-24] MEDS: Lactulose 20gm/30ml UDC GT SCH ×3 (09:01→17:59)
[2019-07-24] MEDS: Thiamine 100mg tab GT SCH (09:03)
[2019-07-24] MEDS: Lisinopril 10mg tab GT SCH (09:03)
[2019-07-24] MEDS: Doxazosin 1mg Tab ORAL SCH (09:03)
[2019-07-24] MEDS: Tamsulosin 0.4mg cap ORAL SCH (09:03)
[2019-07-24] MEDS: Pantoprazole Inj IV SCH ×2 (09:03→21:06)
[2019-07-24 09:39] LABS: BASOPHILS % (AUTO) 1.4 % (0.0-2.0); EOSINOPHILS % (AUTO) 3.3 % (0.0-3.0); HEMATOCRIT 24.6 % (42.0-52.0); HEMOGLOBIN 8.5 G/DL (14.2-18.0); LYMPHOCYTES % (AUTO) 22.3 % (20.0-45.0); MEAN CORPUSCULAR VOLUME 90 FL (80-99); MONOCYTES % (AUTO) 9.3 % (1.0-10.0); NEUTROPHILS % (AUTO) 63.8 % (45.0-75.0); PLATELET COUNT 396 K/UL (150-450); RED BLOOD COUNT 2.72 M/UL (4.70-6.10); RED CELL DISTRIBUTION WIDTH 14.3 % (11.6-14.8)
--- NOTE | 2019-07-24 09:50 | NUR ---
Pt's G-tube has become clogged. Report made to Efra NAVARRO. Patient is planned for GT replacement today.
[2019-07-24 09:54] LABS: ALANINE AMINOTRANSFERASE 54 U/L (12-78); ALBUMIN 2.8 G/DL (3.4-5.0); ALBUMIN/GLOBULIN RATIO 0.5 (1.0-2.7); ALKALINE PHOSPHATASE 94 U/L (46-116); ANION GAP 9 mmol/L (5-15); ASPARTATE AMINO TRANSFERASE 40 U/L (15-37); BILIRUBIN,TOTAL 0.3 MG/DL (0.2-1.0); BLOOD UREA NITROGEN 13 mg/dL (7-18); CALCIUM 9.5 MG/DL (8.5-10.1); CARBON DIOXIDE 27 MMOL/L (21-32); CHLORIDE 103 MMOL/L (98-107); CREATININE 0.7 MG/DL (0.55-1.30); POTASSIUM 3.7 MMOL/L (3.5-5.1); SODIUM 139 MMOL/L (136-145)
[2019-07-24 10:11] LABS: PHOSPHORUS 2.9 MG/DL (2.5-4.9)
--- NOTE | 2019-07-24 10:20 | GI Progress Note ---
Assessment/Plan Problems: (1) Severe malnutrition ICD Codes: E43 - Unspecified severe protein-calorie malnutrition SNOMED: 30764575 (2) Failure to thrive syndrome, adult ICD Codes: R62.7 - Failure to thrive syndrome, adult SNOMED: 850323142 (3) Elevated LFTs ICD Codes: R94.5 - Abnormal results of liver function studies SNOMED: 102969309, 423991264 (4) Encounter for PEG (percutaneous endoscopic gastrostomy) ICD Codes: Z43.1 - Encounter for attention to gastrostomy SNOMED: 898607073, 901342065 Status: unchanged Status Narrative Discussed with Dr. Romero. Assessment/Plan 1. History of chronic anemia. 2. H. pylori negative gastritis. 3. Hiatal hernia. 4. Hemorrhoids. 5. Dementia. 6. Hypertension. 7. UTI. 8. Hypercholesteremia. 9. Patient has dysphagia with a G-tube. 10 GIB 11. elevated LFTS plan EGD and colonoscopy CANCELLED, patient is now r/o TB. Will rescheduled once cleared. resume GTFs GT clogged, will replace at bedside today. drop in H&H without active bleed stool ob positive ppi transfuse to keep HGB above 7.5 abx per id positive blood cultures on lactulose will fu The patient was seen and examined at bedside and all new and available data was reviewed in the patients chart. I agree with the above findings, impression and plan. (Patient seen earlier today. Signature stamp does not reflect patient encounter time.). - Ramiro Romero MD Subjective Gastrointestinal/Abdominal: Reports: no symptoms Subjective limited Objective Last 24 Hour Vital Signs Date Time Temp Pulse Resp B/P (MAP) Pulse Ox O2 Delivery O2 Flow Rate FiO2 07/24/19 09:03 137/78 07/24/19 09:02 91 137/78 07/24/19 09:00 Nasal Cannula 2.0 07/24/19 08:00 99.9 20 137/78 (97) 96 07/24/19 04:00 98.1 75 24 124/65 (84) 100 07/24/19 00:00 97.8 88 18 105/60 (75) 99 07/23/19 21:00 Nasal Cannula 2.0 07/23/19 20:00 98.1 86 22 104/75 (85) 99 07/23/19 16:00 100.4 72 20 114/57 (76) 99 07/23/19 12:00 97.7 72 18 125/66 (85) 99 Intake and Output 07/23/19 07/24/19 19:00 07:00 Intake Total 922.5 ml 82.5 ml Output Total 800 ml 500 ml Balance 122.5 ml -417.5 ml Intake Free Water 120 ml IV Total 82.5 ml 82.5 ml Tube Feeding 720 ml Output Urine Total 800 ml 500 ml # Bowel Movements 2 Laboratory Tests Test 07/23/19 16:00 07/24/19 08:35 Urine Color Pale yellow Urine Appearance Clear Urine pH 7 (4.5-8.0) Urine Specific [place] 1.010 (1.005-1.035) Urine Protein Negative (NEGATIVE) Urine Glucose (UA) Negative (NEGATIVE) Urine Ketones Negative (NEGATIVE) Urine Blood Negative (NEGATIVE) Urine Nitrite Negative (NEGATIVE) Urine Bilirubin Negative (NEGATIVE) Urine Urobilinogen Normal MG/DL (0.0-1.0) Urine Leukocyte Esterase Negative (NEGATIVE) White Blood Count 10.0 K/UL (4.8-10.8) Red Blood Count 2.72 M/UL (4.70-6.10) L Hemoglobin 8.5 G/DL (14.2-18.0) L Hematocrit 24.6 % (42.0-52.0) L Mean Corpuscular Volume 90 FL (80-99) Mean Corpuscular Hemoglobin 31.1 PG (27.0-31.0) H Mean Corpuscular Hemoglobin Concent 34.4 G/DL (32.0-36.0) Red Cell Distribution Width 14.3 % (11.6-14.8) Platelet Count 396 K/UL (150-450) Mean Platelet Volume 5.2 FL (6.5-10.1) L Neutrophils (%) (Auto) 63.8 % (45.0-75.0) Lymphocytes (%) (Auto) 22.3 % (20.0-45.0) Monocytes (%) (Auto) 9.3 % (1.0-10.0) Eosinophils (%) (Auto) 3.3 % (0.0-3.0) H Basophils (%) (Auto) 1.4 % (0.0-2.0) Sodium Level 139 MMOL/L (136-145) Potassium Level 3.7 MMOL/L (3.5-5.1) Chloride Level 103 MMOL/L (98-107) Carbon Dioxide Level 27 MMOL/L (21-32) Anion Gap 9 mmol/L (5-15) Blood Urea Nitrogen 13 mg/dL (7-18) Creatinine 0.7 MG/DL (0.55-1.30) Estimat Glomerular Filtration Rate > 60 mL/min (>60) Glucose Level 143 MG/DL (74-106) H Calcium Level 9.5 MG/DL (8.5-10.1) Phosphorus Level 2.9 MG/DL (2.5-4.9) Magnesium Level 2.1 MG/DL (1.8-2.4) Total Bilirubin 0.3 MG/DL (0.2-1.0) Aspartate Amino Transf (AST/SGOT) 40 U/L (15-37) H Alanine Aminotransferase (ALT/SGPT) 54 U/L (12-78) Alkaline Phosphatase 94 U/L (46-116) Total Protein 8.1 G/DL (6.4-8.2) Albumin 2.8 G/DL (3.4-5.0) L Globulin 5.3 g/dL Albumin/Globulin Ratio 0.5 (1.0-2.7) L Height (Feet): 5 Height (Inches): 10.00 Weight (Pounds): 129 General Appearance: no apparent distress Cardiovascular: normal rate Abdominal Exam: site Stevo Milligan NP July 24, 2019 10:20
--- NOTE | 2019-07-24 10:40 | NUR ---
NURSE NOTES: Received order to obtain consents for pt's planned colonoscopy and EGD tomorrow, 07/25/2019. Contacted patient's step-daughter Zoniaalie Mills and obtained consent telephonically with Norman Strange RN as witness. Filed consents into patient's chart.
[2019-07-24] MEDS: D5 1/2NS 1,000 ML IV SCH (11:23)
--- NOTE | 2019-07-24 11:29 | General Progress Note ---
Assessment/Plan Status: unchanged Assessment/Plan: HPI/CC: 73-year-old male with PMH of advanced dementia (bedbound, nonverbal, PEG dependent at baseline), dysphasia s/p PEG tube, COPD, HTN, depression, PVCs , GERD, functional quadriplegia, adult failure to thrive, sacral ulcer who presents from rehab facility for hematemesis. On admission pt was noted to have temperature of 100.9 rectally, rhonchorous cough. CXR performed which showed RLL infiltrate. Patient admitted for further treatment and evaluation. Patient subsequently found to have MRSA Bacteremia initial COVID test negative. Assessment #Hematemesis, R/O UGIB, currently HGB stable, EGD pending for 07/24 #Sepsis Multifactoral secondary to MRSA Bacteremia, Aspiration PNA/HCAP #R/O COVID, now two negative tests --Negative #Decubitus Ulcers/Diffuse Pressure wounds #HTN #BPH #Dementia/FTT/Functional Quadriplegia, PEG tube dependent Plan Consults include ID, Surgery, Cardio, GI Continue Protonix IV BID --> Pending EGD and Milo Thursday Continue Vancomycin IV & Zosyn IV, appreciate ID--> last day Zosyn 07/23 Transfuse HGB prn per GI parameters Lisinopril, Tamsulosin--> d/c finasteride as not PEG compatible PRN BP and pain meds Wound Care per Surgery Diet per GI 07/23: EGD and Milo Tomorrow, undergoing prep. AB per ID, Last day for Zosyn today Subjective Date patient seen: July 24, 2019 Allergies: Coded Allergies: No Known Allergies (Unverified , 08/20/18) Subjective no new events ; HGB improved. Pending Milo and EGD tomorrow Objective Last 24 Hour Vital Signs Date Time Temp Pulse Resp B/P (MAP) Pulse Ox O2 Delivery O2 Flow Rate FiO2 07/24/19 09:03 137/78 07/24/19 09:02 91 137/78 07/24/19 09:00 Nasal Cannula 2.0 07/24/19 08:00 99.9 20 137/78 (97) 96 07/24/19 04:00 98.1 75 24 124/65 (84) 100 07/24/19 00:00 97.8 88 18 105/60 (75) 99 07/23/19 21:00 Nasal Cannula 2.0 07/23/19 20:00 98.1 86 22 104/75 (85) 99 07/23/19 16:00 100.4 72 20 114/57 (76) 99 07/23/19 12:00 97.7 72 18 125/66 (85) 99 Intake and Output 07/23/19 07/24/19 19:00 07:00 Intake Total 922.5 ml 82.5 ml Output Total 800 ml 500 ml Balance 122.5 ml -417.5 ml Intake Free Water 120 ml IV Total 82.5 ml 82.5 ml Tube Feeding 720 ml Output Urine Total 800 ml 500 ml # Bowel Movements 2 Laboratory Tests 07/23/19 16:00: Urine Color Pale yellow, Urine Appearance Clear, Urine pH 7, Urine Specific [place] 1.010, Urine Protein Negative, Urine Glucose (UA) Negative, Urine Ketones Negative, Urine Blood Negative, Urine Nitrite Negative, Urine Bilirubin Negative, Urine Urobilinogen Normal, Urine Leukocyte Esterase Negative 07/24/19 08:35: White Blood Count 10.0, Red Blood Count 2.72L, Hemoglobin 8.5L, Hematocrit 24.6L , Mean Corpuscular Volume 90, Mean Corpuscular Hemoglobin 31.1H, Mean Corpuscular Hemoglobin Concent 34.4, Red Cell Distribution Width 14.3, Platelet Count 396, Mean Platelet Volume 5.2L, Neutrophils (%) (Auto) 63.8, Lymphocytes ( %) (Auto) 22.3, Monocytes (%) (Auto) 9.3, Eosinophils (%) (Auto) 3.3H, Basophils (%) (Auto) 1.4, Sodium Level 139, Potassium Level 3.7, Chloride Level 103, Carbon Dioxide Level 27, Anion Gap 9, Blood Urea Nitrogen 13, Creatinine 0.7, Estimat Glomerular Filtration Rate > 60, Glucose Level 143H, Calcium Level 9.5, Phosphorus Level 2.9, Magnesium Level 2.1, Total Bilirubin 0.3, Aspartate Amino Transf (AST/SGOT) 40H, Alanine Aminotransferase (ALT/SGPT) 54, Alkaline Phosphatase 94, Total Protein 8.1, Albumin 2.8L, Globulin 5.3, Albumin/Globulin Ratio 0.5L Height (Feet): 5 Height (Inches): 10.00 Weight (Pounds): 129 Objective General Appearance: no apparent distress, other - demented EENT: PERRL/EOMI Cardiovascular: normal rate, regular rhythm Respiratory/Chest: lungs clear, normal breath sounds Abdomen: soft, other - peg tube Extremities: other - muscle wasting Neurologic: disoriented Rena Deluca D.O. July 24, 2019 11:29
[2019-07-24 12:00] VITALS: BP 99/57
--- NOTE | 2019-07-24 13:20 | NUR ---
NURSE NOTES: Efra CLOTH COLORER of Dr. Romero came by and gastric tube was changed with 20fr @ the bedside and RN received KUB with gastrografin.
--- NOTE | 2019-07-24 14:01 | NUR ---
NURSE NOTES: Patient's roommate's isolation status has been changed and Dr. Romero was informed by Efra TRACK GRINDER OPERATOR with new order to cancel EGD and colonoscopy scheduled for tomorrow and NPO status until further order.
--- NOTE | 2019-07-24 14:50 | NUR ---
NURSE NOTES: MILKA DONE @ THE BEDSIDE.
--- NOTE | 2019-07-24 15:00 | Diagnostic Imaging Report ---
EXAM: XR Abdomen, 1 view CLINICAL HISTORY: SCREEN TECHNIQUE: Frontal view of the abdomen after injection of enteric contrast. COMPARISON: 10/26/18. FINDINGS: No leakage of enteric contrast to suggest malpositioning of the gastrostomy tube. No free air. No clear bowel obstruction. IMPRESSION: No leakage of enteric contrast to suggest malpositioning of the gastrostomy tube.
--- NOTE | 2019-07-24 15:18 | NUR ---
NURSE NOTES: KUB result came back and relayed result to [facility] and received order to resume previous TF order.
[2019-07-24 16:00] VITALS: BP 101/63
[2019-07-24] MEDS ORDERED: Nulytely 4L ORAL SCH (16:00)
--- NOTE | 2019-07-24 16:33 | Infectious Diseases Prog Note ---
Assessment/Plan Assessment/Plan ASSESSMENT AND PLAN: 1. mrsa bacteremia, ? 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 GI bleed and coffee-ground emesis. Treatment per GI and Surgery. 3. Patient has multiple wounds, but did not look like acutely infected. Continue wound care per Surgery. 4. Anemia and GI bleed. 5. Dementia. 6. Dysphagia, G-tube, and aspiration risk. 7. COPD. 8. Hypertension. 9. Depression. 10. PVCs. 11. GERD. 12. Quadriplegia. 13. Failure to thrive. 14. Continue treatment per primary consultants. 15. No known drug allergies. 16. Social history is negative. 17. Family history is noncontributory. 18. MAR was noted. 19. Case discussed with RN. Subjective Constitutional: Denies: fever HEENT: Denies: congestion Respiratory: Denies: shortness of breath Gastrointestinal/Abdominal: Denies: nausea, vomiting, diarrhea Genitourinary: Reports: other - no duggan Neurologic: Denies: headache Psychiatric: Denies: depression Skin: Denies: rash Hematologic: Denies: bleeding Musculoskeletal: Denies: pain Allergies: Coded Allergies: No Known Allergies (Unverified , 08/20/18) Objective Vital Signs Last 24 Hour Vital Signs Date Time Temp Pulse Resp B/P (MAP) Pulse Ox O2 Delivery O2 Flow Rate FiO2 07/24/19 12:00 98.9 76 17 99/57 (71) 97 07/24/19 09:03 137/78 07/24/19 09:02 91 137/78 07/24/19 09:00 Nasal Cannula 2.0 07/24/19 08:00 99.9 20 137/78 (97) 96 07/24/19 04:00 98.1 75 24 124/65 (84) 100 07/24/19 00:00 97.8 88 18 105/60 (75) 99 07/23/19 21:00 Nasal Cannula 2.0 07/23/19 20:00 98.1 86 22 104/75 (85) 99 Height (Feet): 5 Height (Inches): 10.00 Weight (Pounds): 129 General Appearance: no acute distress HEENT: normocephalic, atraumatic, anicteric Respiratory/Chest: crackles/rales, rhonchi - bilaterally Cardiovascular: normal rate, regular rhythm, no gallop/murmur, no JVD Abdomen: normal bowel sounds, soft, non tender, no organomegaly, non distended Genitourinary: other - no duggan Extremities: no cyanosis Skin: no rash 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 The left lung bilateral pleural spaces remain clear. The heart size is normal. Impression: Unchanged right lung reticular infiltrate and associated atelectasis , over 2 days Chest x-ray - 07/22/19 - Procedure: XRAY Chest 1v Indication: Shortness of breath Technique: One view of the chest Comparison: 07/19/2019 Findings: Right basilar atelectasis and or infiltrate appears slightly less prominent than on the prior study, although this could be an artifact of different rotation. There is some atelectasis developing in the left midlung, not evident previously. The remainder the lungs and pleural spaces are clear. The heart size is normal. Impression: Possibly improved right basilar atelectasis and infiltrate, since prior exam of 3 days earlier New atelectasis in the left midlung Microbiology Date/Time Source Procedure Growth Status 07/22/19 20:15 Blood Blood Culture - Preliminary NO GROWTH AFTER 24 HOURS Resulted 07/19/19 17:50 Nasopharynx Coronavirus COVID-19 PCR ([facility]) - Final Complete 07/17/19 09:00 Rectum VRE Culture - Final NO VANCOMYCIN RESISTANT ENTEROCOCCUS ... Complete Microbiology Date/Time Source Procedure Growth Status 07/22/19 20:15 Blood Blood Culture - Preliminary NO GROWTH AFTER 24 HOURS Resulted 07/22/19 20:00 Blood Blood Culture - Preliminary NO GROWTH AFTER 24 HOURS Resulted Laboratory Tests Test 07/24/19 08:35 White Blood Count 10.0 K/UL (4.8-10.8) Red Blood Count 2.72 M/UL (4.70-6.10) L Hemoglobin 8.5 G/DL (14.2-18.0) L Hematocrit 24.6 % (42.0-52.0) L Mean Corpuscular Volume 90 FL (80-99) Mean Corpuscular Hemoglobin 31.1 PG (27.0-31.0) H Mean Corpuscular Hemoglobin Concent 34.4 G/DL (32.0-36.0) Red Cell Distribution Width 14.3 % (11.6-14.8) Platelet Count 396 K/UL (150-450) Mean Platelet Volume 5.2 FL (6.5-10.1) L Neutrophils (%) (Auto) 63.8 % (45.0-75.0) Lymphocytes (%) (Auto) 22.3 % (20.0-45.0) Monocytes (%) (Auto) 9.3 % (1.0-10.0) Eosinophils (%) (Auto) 3.3 % (0.0-3.0) H Basophils (%) (Auto) 1.4 % (0.0-2.0) Sodium Level 139 MMOL/L (136-145) Potassium Level 3.7 MMOL/L (3.5-5.1) Chloride Level 103 MMOL/L (98-107) Carbon Dioxide Level 27 MMOL/L (21-32) Anion Gap 9 mmol/L (5-15) Blood Urea Nitrogen 13 mg/dL (7-18) Creatinine 0.7 MG/DL (0.55-1.30) Estimat Glomerular Filtration Rate > 60 mL/min (>60) Glucose Level 143 MG/DL (74-106) H Calcium Level 9.5 MG/DL (8.5-10.1) Phosphorus Level 2.9 MG/DL (2.5-4.9) Magnesium Level 2.1 MG/DL (1.8-2.4) Total Bilirubin 0.3 MG/DL (0.2-1.0) Aspartate Amino Transf (AST/SGOT) 40 U/L (15-37) H Alanine Aminotransferase (ALT/SGPT) 54 U/L (12-78) Alkaline Phosphatase 94 U/L (46-116) Total Protein 8.1 G/DL (6.4-8.2) Albumin 2.8 G/DL (3.4-5.0) L Globulin 5.3 g/dL Albumin/Globulin Ratio 0.5 (1.0-2.7) L Current Medications Medications (Trade) Dose Ordered Sig/Altagracia Route PRN Reason Start Time Stop Time Status Last Admin Dose Admin Acetaminophen (Tylenol) 650 mg Q4H PRN GT Temp >100.5 07/23/19 01:45 08/16/19 01:29 Acetaminophen (Tylenol) 650 mg Q4H PRN GT Mild Pain (Pain Scale 1-3) 07/23/19 02:15 08/16/19 10:14 Amlodipine Besylate (Norvasc) 5 mg DAILY GT 07/23/19 09:00 08/17/19 08:59 07/24/19 09:02 Ascorbic Acid (Vitamin C) 250 mg TWICE A DAY GT 07/23/19 09:00 08/17/19 08:59 07/24/19 09:01 Bisacodyl (Dulcolax) 10 mg DAILYPRN PRN RECTAL Constipation 07/23/19 10:15 10/15/19 10:14 Dextrose (Dextrose 50%) 25 ml Q30M PRN IV Hypoglycemia 07/23/19 01:15 10/15/19 10:14 Dextrose (Dextrose 50%) 50 ml Q30M PRN IV Hypoglycemia 07/23/19 01:15 10/15/19 10:14 Dextrose/Sodium Chloride 1,000 ml @ 75 mls/hr [id number] IV 07/24/19 10:30 08/23/19 10:29 07/24/19 11:23 Doxazosin Mesylate (Cardura) 1 mg DAILY ORAL 07/24/19 09:00 08/23/19 08:59 07/24/19 09:03 Hydralazine HCl (Apresoline) 25 mg Q6H PRN GT SBP > 160 07/23/19 01:30 10/15/19 01:29 Lactulose (Cephulac) 20 gm THREE TIMES A DAY GT 07/23/19 09:00 08/18/19 12:59 07/24/19 09:01 Lisinopril (ZestriL) 10 mg DAILY GT 07/23/19 09:00 08/17/19 08:59 07/24/19 09:03 Magnesium Hydroxide (Mom) 30 ml HSPRN PRN GT Constipation 07/23/19 10:15 08/16/19 10:14 Multivitamins (Multivitamins) 1 tab DAILY GT 07/23/19 09:00 08/17/19 08:59 07/24/19 09:03 Ondansetron HCl (Zofran) 4 mg Q6H PRN IVP Nausea & Vomiting 07/23/19 01:45 08/16/19 01:44 Pantoprazole (Protonix) 40 mg EVERY 12 HOURS IV 07/23/19 09:00 08/16/19 20:59 07/24/19 09:03 Piperacillin Sod/ Tazobactam Sod 3.375 gm/Dextrose 110 ml @ 27.5 mls/hr EVERY 8 HOURS IVPB 07/23/19 06:00 07/25/19 21:59 07/24/19 14:40 Polyethylene Glycol (Miralax) 17 gm DAILYPRN PRN GT Constipation 07/23/19 10:15 08/16/19 10:14 Potassium Chloride (K-Dur) 20 meq DAILY GT 07/23/19 09:00 10/16/19 08:59 07/24/19 09:03 Tamsulosin HCl (Flomax) 0.4 mg DAILY ORAL 07/23/19 09:00 08/17/19 08:59 07/24/19 09:03 Thiamine HCl (Vitamin B1) 100 mg DAILY GT 07/23/19 09:00 08/17/19 08:59 07/24/19 09:03 Tramadol HCl (Ultram) 50 mg Q8H PRN GT Severe Pain (Pain Scale 7-10) 07/23/19 08:45 07/24/19 16:44 Vancomycin HCl (Vanco rx to dose) 1 ea DAILY PRN MISC Per rx protocol 07/23/19 09:00 08/16/19 12:14 Vancomycin HCl 750 mg/Sodium Chloride 275 ml @ 183.333 mls/hr Q12H IVPB 07/23/19 02:00 07/26/19 01:59 07/24/19 14:38 Bonny Rincon MD July 24, 2019 16:33
--- NOTE | 2019-07-24 17:08 | Surgery Progress Note ---
Surgery Progress Note Subjective Additional Comments patient comfortable no complaints plan for scope tomorrow seems prepared no n/v tube functional no active bleeding Objective Last 24 Hour Vital Signs Date Time Temp Pulse Resp B/P (MAP) Pulse Ox O2 Delivery O2 Flow Rate FiO2 07/24/19 16:00 98.6 79 18 101/63 (76) 98 07/24/19 12:00 98.9 76 17 99/57 (71) 97 07/24/19 09:03 137/78 07/24/19 09:02 91 137/78 07/24/19 09:00 Nasal Cannula 2.0 07/24/19 08:00 99.9 20 137/78 (97) 96 07/24/19 04:00 98.1 75 24 124/65 (84) 100 07/24/19 00:00 97.8 88 18 105/60 (75) 99 07/23/19 21:00 Nasal Cannula 2.0 07/23/19 20:00 98.1 86 22 104/75 (85) 99 I&O Intake and Output 07/23/19 07/24/19 19:00 07:00 Intake Total 922.5 ml 210.0 ml Output Total 800 ml 500 ml Balance 122.5 ml -290.0 ml Intake Free Water 120 ml 40 ml IV Total 82.5 ml 110.0 ml Tube Feeding 720 ml 60 ml Output Urine Total 800 ml 500 ml # Bowel Movements 2 Dressing: saturated Wound: other Drains: other Cardiovascular: RSR Respiratory: decreased breath sounds Abdomen: soft, non-tender, present bowel sounds Extremities: no cyanosis, other Laboratory Tests Test 07/24/19 08:35 White Blood Count 10.0 K/UL (4.8-10.8) Red Blood Count 2.72 M/UL (4.70-6.10) L Hemoglobin 8.5 G/DL (14.2-18.0) L Hematocrit 24.6 % (42.0-52.0) L Mean Corpuscular Volume 90 FL (80-99) Mean Corpuscular Hemoglobin 31.1 PG (27.0-31.0) H Mean Corpuscular Hemoglobin Concent 34.4 G/DL (32.0-36.0) Red Cell Distribution Width 14.3 % (11.6-14.8) Platelet Count 396 K/UL (150-450) Mean Platelet Volume 5.2 FL (6.5-10.1) L Neutrophils (%) (Auto) 63.8 % (45.0-75.0) Lymphocytes (%) (Auto) 22.3 % (20.0-45.0) Monocytes (%) (Auto) 9.3 % (1.0-10.0) Eosinophils (%) (Auto) 3.3 % (0.0-3.0) H Basophils (%) (Auto) 1.4 % (0.0-2.0) Sodium Level 139 MMOL/L (136-145) Potassium Level 3.7 MMOL/L (3.5-5.1) Chloride Level 103 MMOL/L (98-107) Carbon Dioxide Level 27 MMOL/L (21-32) Anion Gap 9 mmol/L (5-15) Blood Urea Nitrogen 13 mg/dL (7-18) Creatinine 0.7 MG/DL (0.55-1.30) Estimat Glomerular Filtration Rate > 60 mL/min (>60) Glucose Level 143 MG/DL (74-106) H Calcium Level 9.5 MG/DL (8.5-10.1) Phosphorus Level 2.9 MG/DL (2.5-4.9) Magnesium Level 2.1 MG/DL (1.8-2.4) Total Bilirubin 0.3 MG/DL (0.2-1.0) Aspartate Amino Transf (AST/SGOT) 40 U/L (15-37) H Alanine Aminotransferase (ALT/SGPT) 54 U/L (12-78) Alkaline Phosphatase 94 U/L (46-116) Total Protein 8.1 G/DL (6.4-8.2) Albumin 2.8 G/DL (3.4-5.0) L Globulin 5.3 g/dL Albumin/Globulin Ratio 0.5 (1.0-2.7) L Plan Problems: (1) GI bleed Assessment & Plan: Patient noted to have coffee-ground emesis and melena. Hemoglobin noted and stable No active bleeding noted at this time No gross blood on rectal Trend labs will monitor Appreciate GI input (2) Decubitus skin ulcer Assessment & Plan: Patient presents on admission with multiple skin concerns. Patient identified to have a 2 cm x 1 cm x 2 mm deep unstageable right lateral foot distal malleolus decubitus ulcer with slough in the base raised edges periwound with mild erythema no active drainage no acute active infectious process no foul odor. Patient identified to have deep tissue injury around the area of the issue him and sacrum. Prior healing skin changes identified. No active drainage no fluctuance. Overall patient very deconditioned and malnutrition. Albumin low. Currently sepsis Nutritional optimization very important Treatment plan: Wash right foot daily with normal saline. Apply Thera honey followed by gauze and foam dressing to the right foot ulcer change daily and as needed saturation Apply skin protectant and foam dressing to the bilateral ischio and sacral region change every 3 days and as needed saturation Monitor for incontinence Change accordingly Turn every 2 hours Offload pressure with air mattress pressure release Offload heels with pillow under calves We will follow with recommendations thank you for let me participate patient's care (3) Severe malnutrition Assessment & Plan: DAILY ESTIMATED NEEDS: Needs based on Wounds, wasting/ 49kg 30-35 kcals/kg 3210-2822 total kcals 1.25-2.0 g protein/kg 61-98 g total protein 25-30 mL/kg 6186-2620 total fluid mLs NUTRITION DIAGNOSIS: * Swallowing difficulty R/T dysphagia as evidenced by pt is PEG dep. * Increased kcal/prot intake needs R/T wound healing as evidenced by pt admitted wounds including deep unstageable wound @ right lateral foot distal malleolus and DTI @ sacrum. CURRENT TF:Vital AF 1.2 @ 60ml/hr x 24 hrs ENTERAL NUTRITION RECOMMENDATIONS: Osmolite 1.2 @ 60ml/hr x 24 hrs to provide 1440ml, 1728kcal, 80g prot, 1181ml free water * Rec Osmolite 1.2, non fiber containing TF for easy tolerance given possible GIB. * Start @30ml/hr, advance as tolerated 10ml/hr q4-6 hrs to goal * TF @ goal will provide 35kcal/1.63g prot per kg * HOB over 30 degrees * Water flush of 100ml q 8 hrs without IVF ADDITIONAL RECOMMENDATIONS: * CALIBRATED BEDSCALE WT wt in May 2019: 108 lbs vs current EMR wt of 145lbs. * Wound care: continue Vit C Add YUNIOR in 4oz H2O via GT BID * Monitor lytes, replete as needed (4) Failure to thrive syndrome, adult (5) Sepsis Assessment & Plan: Febrile, leukocytosis, lactic acidosis. Abnormal labs. Lactic acidosis improving with fluid resuscitation UA noted pending micro Broad-spectrum antibiotics per infectious disease. Continue with current care and plan will follow with recs (6) Elevated LFTs (7) Suspected COVID-19 virus infection Assessment & Plan: Persistent infiltrate in right lower lobe, likely pneumonia. Recommend correlation with CT to exclude mass lesion. Reji Guy July 24, 2019 17:08
--- NOTE | 2019-07-24 18:00 | NUR ---
NURSE NOTES: GT is in place and patient tolerates well to TF.
--- NOTE | 2019-07-24 19:30 | NUR ---
NURSE NOTES: Patient awake in bed, non verbal, no signs of pain at this time. With Gtube connected to feeding, patent. Safety measures rendered. Will continue plan of care.
--- NOTE | 2019-07-24 19:33 | NUR ---
HAND-OFF: Report given to Jos and endorsed plan of care.
[2019-07-24 20:00] VITALS: BP 112/62
--- NOTE | 2019-07-24 23:14 | Cardiac Electrophysiology PN ---
Assessment/Plan Assessment/Plan 1. Hypertension. Continue amlodipine 5 mg daily, lisinopril 10 mg daily and p.r.n. hydralazine 2. Sepsis. Patient is on vancomycin and Zosyn by by ID. 3. Upper GI bleed. No active bleed. EGD by Dr. Romero after R/O for TB 4. Lactic acidosis, that has resolved. 5. Aspiration pneumonia, on antibiotic. 6. COVID PCR negative x1. Awaiting second COVID to return to jail. 7. Transaminitis. 8. Advanced dementia. 9. Functional quadriplegia. 10. Dysphagia, s/P PEG placement. 11. Sacral wound. 12. Right foot ulcer. Subjective Subjective Nonverbal in SR.Negative Covid x2. PEG was changed today. EGD Thursday was cancelled as was in the same room as the other patient with possible TB Objective Last 24 Hour Vital Signs Date Time Temp Pulse Resp B/P (MAP) Pulse Ox O2 Delivery O2 Flow Rate FiO2 07/24/19 21:00 Nasal Cannula 2.0 07/24/19 20:00 97.8 69 18 112/62 (79) 94 07/24/19 16:00 98.6 79 18 101/63 (76) 98 07/24/19 12:00 98.9 76 17 99/57 (71) 97 07/24/19 09:03 137/78 07/24/19 09:02 91 137/78 07/24/19 09:00 Nasal Cannula 2.0 07/24/19 08:00 99.9 20 137/78 (97) 96 07/24/19 04:00 98.1 75 24 124/65 (84) 100 07/24/19 00:00 97.8 88 18 105/60 (75) 99 Intake and Output 07/23/19 07/24/19 19:00 07:00 Intake Total 922.5 ml 210.0 ml Output Total 800 ml 500 ml Balance 122.5 ml -290.0 ml Intake Free Water 120 ml 40 ml IV Total 82.5 ml 110.0 ml Tube Feeding 720 ml 60 ml Output Urine Total 800 ml 500 ml # Bowel Movements 2 Laboratory Tests Test 07/24/19 08:35 White Blood Count 10.0 K/UL (4.8-10.8) Red Blood Count 2.72 M/UL (4.70-6.10) L Hemoglobin 8.5 G/DL (14.2-18.0) L Hematocrit 24.6 % (42.0-52.0) L Mean Corpuscular Volume 90 FL (80-99) Mean Corpuscular Hemoglobin 31.1 PG (27.0-31.0) H Mean Corpuscular Hemoglobin Concent 34.4 G/DL (32.0-36.0) Red Cell Distribution Width 14.3 % (11.6-14.8) Platelet Count 396 K/UL (150-450) Mean Platelet Volume 5.2 FL (6.5-10.1) L Neutrophils (%) (Auto) 63.8 % (45.0-75.0) Lymphocytes (%) (Auto) 22.3 % (20.0-45.0) Monocytes (%) (Auto) 9.3 % (1.0-10.0) Eosinophils (%) (Auto) 3.3 % (0.0-3.0) H Basophils (%) (Auto) 1.4 % (0.0-2.0) Sodium Level 139 MMOL/L (136-145) Potassium Level 3.7 MMOL/L (3.5-5.1) Chloride Level 103 MMOL/L (98-107) Carbon Dioxide Level 27 MMOL/L (21-32) Anion Gap 9 mmol/L (5-15) Blood Urea Nitrogen 13 mg/dL (7-18) Creatinine 0.7 MG/DL (0.55-1.30) Estimat Glomerular Filtration Rate > 60 mL/min (>60) Glucose Level 143 MG/DL (74-106) H Calcium Level 9.5 MG/DL (8.5-10.1) Phosphorus Level 2.9 MG/DL (2.5-4.9) Magnesium Level 2.1 MG/DL (1.8-2.4) Total Bilirubin 0.3 MG/DL (0.2-1.0) Aspartate Amino Transf (AST/SGOT) 40 U/L (15-37) H Alanine Aminotransferase (ALT/SGPT) 54 U/L (12-78) Alkaline Phosphatase 94 U/L (46-116) Total Protein 8.1 G/DL (6.4-8.2) Albumin 2.8 G/DL (3.4-5.0) L Globulin 5.3 g/dL Albumin/Globulin Ratio 0.5 (1.0-2.7) L Microbiology Date/Time Source Procedure Growth Status 07/22/19 20:15 Blood Blood Culture - Preliminary NO GROWTH AFTER 24 HOURS Resulted 07/22/19 20:00 Blood Blood Culture - Preliminary NO GROWTH AFTER 24 HOURS Resulted Objective NECK: No JVD. LUNGS: Coarse rhonchi. CARDIOVASCULAR: Regular S1 and S2 with no gallop. ABDOMEN: Soft, status post G-tube. EXTREMITIES: No pitting edema. Ismael Christine MD July 24, 2019 23:14
[2019-07-25] VITALS: BP 96/49
[2019-07-25] MEDS: D5 1/2NS 1,000 ML IV SCH ×2 (01:38→11:56)
[2019-07-25] MEDS: Vancomycin 750 MG in NS 275 ML IVPB SCH ×2 (01:39→14:26)
[2019-07-25 04:00] VITALS: BP 96/54
[2019-07-25] MEDS: Piperacillin/Tazobactam 3.375 GM in D5W 110 ML IVPB SCH ×2 (05:49→14:23)
[2019-07-25 06:27] LABS: HEMATOCRIT 21.9 % (42.0-52.0); HEMOGLOBIN 7.5 G/DL (14.2-18.0); MEAN CORPUSCULAR VOLUME 90 FL (80-99); PLATELET COUNT 331 K/UL (150-450); RED BLOOD COUNT 2.43 M/UL (4.70-6.10)
[2019-07-25 06:33] LABS: ANION GAP 7 mmol/L (5-15); BLOOD UREA NITROGEN 15 mg/dL (7-18); CALCIUM 8.9 MG/DL (8.5-10.1); CARBON DIOXIDE 26 MMOL/L (21-32); CHLORIDE 105 MMOL/L (98-107); CREATININE 0.8 MG/DL (0.55-1.30); POTASSIUM 3.8 MMOL/L (3.5-5.1); SODIUM 138 MMOL/L (136-145)
--- NOTE | 2019-07-25 07:47 | NUR ---
HAND-OFF: Report given to ANTOINETTE Holloway.
[2019-07-25 08:00] VITALS: BP 106/62
[2019-07-25] MEDS: Lisinopril 10mg tab GT SCH (09:00)
[2019-07-25] MEDS: Lactulose 20gm/30ml UDC GT SCH ×3 (09:00→18:55)
--- NOTE | 2019-07-25 09:19 | General Progress Note ---
Assessment/Plan Status: unchanged Assessment/Plan: 73-year-old male with PMH of advanced dementia (bedbound, nonverbal, PEG dependent at baseline), dysphasia s/p PEG tube, COPD, HTN, depression, PVCs, GERD, functional quadriplegia, adult failure to thrive, sacral ulcer who presents from rehab facility for hematemesis. On admission pt was noted to have temperature of 100.9 rectally, rhonchorous cough. CXR performed which showed RLL infiltrate. Patient admitted for further treatment and evaluation. #Sepsis 2/2 #Aspiration PNA/HCAP #MRSA Bacteremia -cont. in-pt medical care -COVID negative x2 -2d echo negative for vegetations -Cardio consulted for CLAUDIO -Appreciate ID recs: vanc and zosyn (last day 07/23) #TB exposure -pt with no cough -CXR negative -will obtain t-spot #Hematemesis -r/o UGIB -Hgb stable, cont to monitor H&H, transfuse for hgb<7 -cont Protonix -GI following: EGD/colon cancelled today as pt pending TB r/o #Transaminitis - resolved -likely elevated due to sepsis -no abd pain on palpation -GI following #HTN -cont lisinopril #BPH -Tamsulosin--> d/c finasteride as not PEG compatible #Dementia/FTT/Functional Quadriplegia, PEG tube dependent #Depression #Anemia of chronic disease- stable #Decubitus Ulcers/Diffuse Pressure wounds -nutrition consulted for tube feeds -Wound care consulted, recs appreciated DVT PPx: lovenox Time spent on encounter: 39 mins, 25 mins spent on counseling, coordination of care, d/w RN, Dr. Romero, Dr. Rincon. Time of note doesn't reflect time of encounter. Subjective Allergies: Coded Allergies: No Known Allergies (Unverified , 08/20/18) Subjective Follow-up for hematemesis. COVID negative. BCx positive for MRSA 1/2. Repeat negative. 2d echo negative for vegetations. No acute events overnight. EGD/colon cancelled today as pt's roomate was found TB positive, now pending TB r/o. 12 pt ROS neg limited, patient aphasic. Patient appears to be in no distress. Objective Last 24 Hour Vital Signs Date Time Temp Pulse Resp B/P (MAP) Pulse Ox O2 Delivery O2 Flow Rate FiO2 07/25/19 04:00 98.8 75 18 96/54 (68) 98 07/25/19 00:00 98.2 81 20 96/49 (65) 98 07/24/19 21:00 Nasal Cannula 2.0 07/24/19 20:00 97.8 69 18 112/62 (79) 94 07/24/19 16:00 98.6 79 18 101/63 (76) 98 07/24/19 12:00 98.9 76 17 99/57 (71) 97 Intake and Output 07/24/19 07/25/19 19:00 07:00 Intake Total 1087.500 ml Balance 1087.500 ml IV Total 787.500 ml Tube Feeding 300 ml # Voids 1 # Bowel Movements 5 Laboratory Tests 07/25/19 06:04: White Blood Count 7.0, Red Blood Count 2.43L, Hemoglobin 7.5L, Hematocrit 21.9L , Mean Corpuscular Volume 90, Mean Corpuscular Hemoglobin 30.8, Mean Corpuscular Hemoglobin Concent 34.2, Red Cell Distribution Width 14.0, Platelet Count 331, Mean Platelet Volume 5.0L, Neutrophils (%) (Auto) , Lymphocytes (%) ( Auto) , Monocytes (%) (Auto) , Eosinophils (%) (Auto) , Basophils (%) (Auto) , Prothrombin Time 11.0, Prothromb Time International Ratio 1.0, Activated Partial Thromboplast Time 29, Sodium Level 138, Potassium Level 3.8, Chloride Level 105, Carbon Dioxide Level 26, Anion Gap 7, Blood Urea Nitrogen 15, Creatinine 0.8, Estimat Glomerular Filtration Rate > 60, Glucose Level 99, Calcium Level 8.9 Height (Feet): 5 Height (Inches): 10.00 Weight (Pounds): 129 Objective General Appearance: NAD, non-verbal at b/l, awake, thin HEENT: NCAT, EOMI Neck: normal alignment, supple Respiratory/Chest: Coarse rhonchi heard throughout all lung blanco, no accessory muscle usage Cardiovascular/Chest: normal rate, regular rhythm Abdomen: non tender, soft, PEG tube in place, c/d/i Extremities: contracted b/l UE and LE, no edema appreciated Neurologic: Demented, nonverbal Musculoskeletal: atrophy Yee,NguyenVy M.D. July 25, 2019 09:19
--- NOTE | 2019-07-25 10:22 | Diagnostic Imaging Report ---
Indication: Cough Technique: One view of the chest Comparison: 07/22/2019 Findings: There are a suitable faint reticular opacities at both lung bases, new or increased from prior exam if real. There is atelectasis or scarring in the right infrahilar region which is probably unchanged allowing for differences in rotation.. Impression: Questionable bibasilar faint reticular infiltrates. Correlate with clinical findings. Other findings as noted
[2019-07-25] MEDS: Ascorbic Acid 500mg tab GT SCH ×2 (10:44→18:55)
[2019-07-25] MEDS: Tamsulosin 0.4mg cap ORAL SCH (10:44)
[2019-07-25] MEDS: Doxazosin 1mg Tab ORAL SCH (10:45)
[2019-07-25] MEDS: Thiamine 100mg tab GT SCH (10:45)
[2019-07-25] MEDS: Pantoprazole Inj IV SCH ×2 (10:46→21:09)
--- NOTE | 2019-07-25 11:43 | General Progress Note ---
Assessment/Plan Status: unchanged Assessment/Plan: 1. History of chronic anemia. 2. H. pylori negative gastritis. 3. Hiatal hernia. 4. Hemorrhoids. 5. Dementia. 6. Hypertension. 7. UTI. 8. Hypercholesteremia. 9. Patient has dysphagia with a G-tube. 10 GIB 11. elevated LFTS plan EGD and colonoscopy CANCELLED, patient is now r/o TB. Will rescheduled once cleared. resume GTFs GT clogged, and was replaced yesterday stool ob positive ppi transfuse to keep HGB above 7.5 abx per id positive blood cultures on lactulose will fu Subjective ROS Limited/Unobtainable: No Allergies: Coded Allergies: No Known Allergies (Unverified , 08/20/18) Objective Last 24 Hour Vital Signs Date Time Temp Pulse Resp B/P (MAP) Pulse Ox O2 Delivery O2 Flow Rate FiO2 07/25/19 09:00 106/62 07/25/19 09:00 73 106/62 07/25/19 08:00 98.1 73 18 106/62 (77) 100 07/25/19 04:00 98.8 75 18 96/54 (68) 98 07/25/19 00:00 98.2 81 20 96/49 (65) 98 07/24/19 21:00 Nasal Cannula 2.0 07/24/19 20:00 97.8 69 18 112/62 (79) 94 07/24/19 16:00 98.6 79 18 101/63 (76) 98 07/24/19 12:00 98.9 76 17 99/57 (71) 97 Intake and Output 07/24/19 07/25/19 19:00 07:00 Intake Total 1087.500 ml Balance 1087.500 ml IV Total 787.500 ml Tube Feeding 300 ml # Voids 1 # Bowel Movements 5 Laboratory Tests 07/25/19 06:04: White Blood Count 7.0, Red Blood Count 2.43L, Hemoglobin 7.5L, Hematocrit 21.9L , Mean Corpuscular Volume 90, Mean Corpuscular Hemoglobin 30.8, Mean Corpuscular Hemoglobin Concent 34.2, Red Cell Distribution Width 14.0, Platelet Count 331, Mean Platelet Volume 5.0L, Neutrophils (%) (Auto) , Lymphocytes (%) ( Auto) , Monocytes (%) (Auto) , Eosinophils (%) (Auto) , Basophils (%) (Auto) , Prothrombin Time 11.0, Prothromb Time International Ratio 1.0, Activated Partial Thromboplast Time 29, Sodium Level 138, Potassium Level 3.8, Chloride Level 105, Carbon Dioxide Level 26, Anion Gap 7, Blood Urea Nitrogen 15, Creatinine 0.8, Estimat Glomerular Filtration Rate > 60, Glucose Level 99, Calcium Level 8.9, HIV (1&2) Antibody Rapid Negative 07/25/19 10:10: TB Test (T-Spot) [Pending], TB Test Nil Control (T-Spot) [Pending], TB Test Panel A (T-Spot) [Pending], TB Test Panel B (T-Spot) [Pending], TB Test Positive Control (T-Spot) [Pending] Height (Feet): 5 Height (Inches): 10.00 Weight (Pounds): 129 General Appearance: no apparent distress EENT: normal ENT inspection Neck: supple Cardiovascular: normal rate Respiratory/Chest: decreased breath sounds Abdomen: normal bowel sounds, non tender, soft Extremities: non-tender Ramiro Romero MD July 25, 2019 11:43
[2019-07-25 12:00] VITALS: BP 117/69
--- NOTE | 2019-07-25 13:25 | Surgery Progress Note ---
Surgery Progress Note Subjective Additional Comments pending r/o TB GI cancelled labs stable exam unchanged comfortable Objective Last 24 Hour Vital Signs Date Time Temp Pulse Resp B/P (MAP) Pulse Ox O2 Delivery O2 Flow Rate FiO2 07/25/19 09:00 106/62 07/25/19 09:00 73 106/62 07/25/19 08:00 98.1 73 18 106/62 (77) 100 07/25/19 04:00 98.8 75 18 96/54 (68) 98 07/25/19 00:00 98.2 81 20 96/49 (65) 98 07/24/19 21:00 Nasal Cannula 2.0 07/24/19 20:00 97.8 69 18 112/62 (79) 94 07/24/19 16:00 98.6 79 18 101/63 (76) 98 I&O Intake and Output 07/24/19 07/25/19 19:00 07:00 Intake Total 1087.500 ml Balance 1087.500 ml IV Total 787.500 ml Tube Feeding 300 ml # Voids 1 # Bowel Movements 5 Dressing: other Wound: other Drains: other Cardiovascular: RSR Respiratory: decreased breath sounds Abdomen: soft, present bowel sounds Extremities: no cyanosis, other Laboratory Tests Test 07/25/19 06:04 07/25/19 10:10 White Blood Count 7.0 K/UL (4.8-10.8) Red Blood Count 2.43 M/UL (4.70-6.10) L Hemoglobin 7.5 G/DL (14.2-18.0) L Hematocrit 21.9 % (42.0-52.0) L Mean Corpuscular Volume 90 FL (80-99) Mean Corpuscular Hemoglobin 30.8 PG (27.0-31.0) Mean Corpuscular Hemoglobin Concent 34.2 G/DL (32.0-36.0) Red Cell Distribution Width 14.0 % (11.6-14.8) Platelet Count 331 K/UL (150-450) Mean Platelet Volume 5.0 FL (6.5-10.1) L Neutrophils (%) (Auto) % (45.0-75.0) Lymphocytes (%) (Auto) % (20.0-45.0) Monocytes (%) (Auto) % (1.0-10.0) Eosinophils (%) (Auto) % (0.0-3.0) Basophils (%) (Auto) % (0.0-2.0) Prothrombin Time 11.0 SEC (9.30-11.50) Prothromb Time International Ratio 1.0 (0.9-1.1) Activated Partial Thromboplast Time 29 SEC (23-33) Sodium Level 138 MMOL/L (136-145) Potassium Level 3.8 MMOL/L (3.5-5.1) Chloride Level 105 MMOL/L (98-107) Carbon Dioxide Level 26 MMOL/L (21-32) Anion Gap 7 mmol/L (5-15) Blood Urea Nitrogen 15 mg/dL (7-18) Creatinine 0.8 MG/DL (0.55-1.30) Estimat Glomerular Filtration Rate > 60 mL/min (>60) Glucose Level 99 MG/DL (74-106) Calcium Level 8.9 MG/DL (8.5-10.1) HIV (1&2) Antibody Rapid Negative (NEGATIVE) TB Test (T-Spot) Pending TB Test Nil Control (T-Spot) Pending TB Test Panel A (T-Spot) Pending TB Test Panel B (T-Spot) Pending TB Test Positive Control (T-Spot) Pending Plan Problems: (1) GI bleed Assessment & Plan: Patient noted to have coffee-ground emesis and melena. Hemoglobin noted and stable No active bleeding noted at this time No gross blood on rectal Trend labs will monitor Appreciate GI input scope once cleared (2) Decubitus skin ulcer Assessment & Plan: Patient presents on admission with multiple skin concerns. Patient identified to have a 2 cm x 1 cm x 2 mm deep unstageable right lateral foot distal malleolus decubitus ulcer with slough in the base raised edges periwound with mild erythema no active drainage no acute active infectious process no foul odor. Patient identified to have deep tissue injury around the area of the issue him and sacrum. Prior healing skin changes identified. No active drainage no fluctuance. Overall patient very deconditioned and malnutrition. Albumin low. Currently sepsis Nutritional optimization very important Treatment plan: Wash right foot daily with normal saline. Apply Thera honey followed by gauze and foam dressing to the right foot ulcer change daily and as needed saturation Apply skin protectant and foam dressing to the bilateral ischio and sacral region change every 3 days and as needed saturation Monitor for incontinence Change accordingly Turn every 2 hours Offload pressure with air mattress pressure release Offload heels with pillow under calves We will follow with recommendations thank you for let me participate patient's care (3) Severe malnutrition Assessment & Plan: DAILY ESTIMATED NEEDS: Needs based on Wounds, wasting/ 49kg 30-35 kcals/kg [id number] total kcals 1.25-2.0 g protein/kg 61-98 g total protein 25-30 mL/kg 7313-8232 total fluid mLs NUTRITION DIAGNOSIS: * Swallowing difficulty R/T dysphagia as evidenced by pt is PEG dep. * Increased kcal/prot intake needs R/T wound healing as evidenced by pt admitted wounds including deep unstageable wound @ right lateral foot distal malleolus and DTI @ sacrum. CURRENT TF:Vital AF 1.2 @ 60ml/hr x 24 hrs ENTERAL NUTRITION RECOMMENDATIONS: Osmolite 1.2 @ 60ml/hr x 24 hrs to provide 1440ml, 1728kcal, 80g prot, 1181ml free water * Rec Osmolite 1.2, non fiber containing TF for easy tolerance given possible GIB. * Start @30ml/hr, advance as tolerated 10ml/hr q4-6 hrs to goal * TF @ goal will provide 35kcal/1.63g prot per kg * HOB over 30 degrees * Water flush of 100ml q 8 hrs without IVF ADDITIONAL RECOMMENDATIONS: * CALIBRATED BEDSCALE WT wt in May 2019: 108 lbs vs current EMR wt of 145lbs. * Wound care: continue Vit C Add YUNIOR in 4oz H2O via GT BID * Monitor lytes, replete as needed (4) Failure to thrive syndrome, adult (5) Sepsis Assessment & Plan: Febrile, leukocytosis, lactic acidosis. Abnormal labs. Lactic acidosis improving with fluid resuscitation UA noted Micro reviewed Broad-spectrum antibiotics per infectious disease. Continue with current care and plan will follow with recs TB r/o (6) Elevated LFTs (7) Suspected COVID-19 virus infection Assessment & Plan: Persistent infiltrate in right lower lobe, likely pneumonia. Recommend correlation with CT to exclude mass lesion. Negative COVID Reji Guy July 25, 2019 13:25
--- NOTE | 2019-07-25 13:51 | Cardiac Electrophysiology PN ---
Assessment/Plan Assessment/Plan 1. Hypertension. Continue amlodipine 5 mg daily, lisinopril 10 mg daily and p.r.n. hydralazine 25 GT q 6 2. Sepsis. Patient is on vancomycin and Zosyn by by ID. 3. Upper GI bleed. No active bleed. EGD by Dr. Romero after R/O for TB 4. Lactic acidosis, that has resolved. 5. Aspiration pneumonia, on antibiotic. 6. COVID PCR negative x1. Awaiting second COVID to return to long term. 7. Transaminitis. 8. Advanced dementia. 9. Functional quadriplegia. 10. Dysphagia, s/P PEG placement. 11. Sacral wound. 12. Right foot ulcer. Subjective Subjective Nonverbal in SR. Negative Covid x2. PEG was changed yesterday. EGD cancelled as was in the same room as the other patient with possible TB Objective Last 24 Hour Vital Signs Date Time Temp Pulse Resp B/P (MAP) Pulse Ox O2 Delivery O2 Flow Rate FiO2 07/25/19 09:00 106/62 07/25/19 09:00 73 106/62 07/25/19 08:00 98.1 73 18 106/62 (77) 100 07/25/19 04:00 98.8 75 18 96/54 (68) 98 07/25/19 00:00 98.2 81 20 96/49 (65) 98 07/24/19 21:00 Nasal Cannula 2.0 07/24/19 20:00 97.8 69 18 112/62 (79) 94 07/24/19 16:00 98.6 79 18 101/63 (76) 98 Intake and Output 07/24/19 07/25/19 19:00 07:00 Intake Total 1087.500 ml Balance 1087.500 ml IV Total 787.500 ml Tube Feeding 300 ml # Voids 1 # Bowel Movements 5 Laboratory Tests Test 07/25/19 06:04 07/25/19 10:10 White Blood Count 7.0 K/UL (4.8-10.8) Red Blood Count 2.43 M/UL (4.70-6.10) L Hemoglobin 7.5 G/DL (14.2-18.0) L Hematocrit 21.9 % (42.0-52.0) L Mean Corpuscular Volume 90 FL (80-99) Mean Corpuscular Hemoglobin 30.8 PG (27.0-31.0) Mean Corpuscular Hemoglobin Concent 34.2 G/DL (32.0-36.0) Red Cell Distribution Width 14.0 % (11.6-14.8) Platelet Count 331 K/UL (150-450) Mean Platelet Volume 5.0 FL (6.5-10.1) L Neutrophils (%) (Auto) % (45.0-75.0) Lymphocytes (%) (Auto) % (20.0-45.0) Monocytes (%) (Auto) % (1.0-10.0) Eosinophils (%) (Auto) % (0.0-3.0) Basophils (%) (Auto) % (0.0-2.0) Prothrombin Time 11.0 SEC (9.30-11.50) Prothromb Time International Ratio 1.0 (0.9-1.1) Activated Partial Thromboplast Time 29 SEC (23-33) Sodium Level 138 MMOL/L (136-145) Potassium Level 3.8 MMOL/L (3.5-5.1) Chloride Level 105 MMOL/L (98-107) Carbon Dioxide Level 26 MMOL/L (21-32) Anion Gap 7 mmol/L (5-15) Blood Urea Nitrogen 15 mg/dL (7-18) Creatinine 0.8 MG/DL (0.55-1.30) Estimat Glomerular Filtration Rate > 60 mL/min (>60) Glucose Level 99 MG/DL (74-106) Calcium Level 8.9 MG/DL (8.5-10.1) HIV (1&2) Antibody Rapid Negative (NEGATIVE) TB Test (T-Spot) Pending TB Test Nil Control (T-Spot) Pending TB Test Panel A (T-Spot) Pending TB Test Panel B (T-Spot) Pending TB Test Positive Control (T-Spot) Pending Microbiology Date/Time Source Procedure Growth Status 07/22/19 20:15 Blood Blood Culture - Preliminary NO GROWTH AFTER 48 HOURS Resulted 07/22/19 20:00 Blood Blood Culture - Preliminary NO GROWTH AFTER 48 HOURS Resulted Objective NECK: No JVD. LUNGS: Coarse rhonchi. CARDIOVASCULAR: Regular S1 and S2 with no gallop. ABDOMEN: Soft, status post G-tube. EXTREMITIES: No pitting edema. Ismael Christine MD July 25, 2019 13:51
--- NOTE | 2019-07-25 14:32 | NUR ---
CASE MANAGEMENT: REVIEW 07/25/19 SI:GASTROINTESTINAL HEMORRHAGE . PNA 98.1 73 18 106/62 100% ON 2L NC H/H 7.5/21.9 TB- PENDING IS:IV D5@75ML/HR IV VANCOMYCIN BID IV ZOSYN TID NORVASC GT QD CARDURA PO QD IV PROTONIX BID K-DUR GT QD FLOMAX PO QD THIAMINE HCI GT QD \: 2E MED SURG UNIT DCP : [facility] WHEN STABLE PLAN: R/O TB-POSSIBLE EXPOSURE GI ON HOLD-
[2019-07-25 16:00] VITALS: BP 104/59
--- NOTE | 2019-07-25 19:51 | NUR ---
HAND-OFF: Report given to ANTOINETTE Lopez.
--- NOTE | 2019-07-25 19:55 | NUR ---
NURSE NOTES: Pt. received from ANTOINETTE Holloway. Pt. nonverbal, breathing even and unlabored, no indications of pain at this time. IV left hand 24g intact and patent, running D5 1/2 NS at 75 cc/hr. Gtube intact, running Vital AF 1.2 at 60cc/hr. Bed is low and locked, side rails x2 up, bed alarm active, and call light in reach. Will continue to monitor.
[2019-07-25 20:00] VITALS: BP 107/62
[2019-07-26] VITALS: BP 115/61
[2019-07-26] MEDS: Vancomycin 750 MG in NS 275 ML IVPB SCH ×2 (02:49→14:39)
[2019-07-26] MEDS: D5 1/2NS 1,000 ML IV SCH ×3 (02:49→23:09)
[2019-07-26 04:00] VITALS: BP 139/75
[2019-07-26 06:50] LABS: ANION GAP 5 mmol/L (5-15); BLOOD UREA NITROGEN 13 mg/dL (7-18); CALCIUM 8.9 MG/DL (8.5-10.1); CARBON DIOXIDE 28 MMOL/L (21-32); CHLORIDE 106 MMOL/L (98-107); CREATININE 0.7 MG/DL (0.55-1.30); POTASSIUM 3.8 MMOL/L (3.5-5.1); SODIUM 139 MMOL/L (136-145)
--- NOTE | 2019-07-26 07:15 | General Progress Note ---
Assessment/Plan Status: unchanged Assessment/Plan: 1. History of chronic anemia. 2. H. pylori negative gastritis. 3. Hiatal hernia. 4. Hemorrhoids. 5. Dementia. 6. Hypertension. 7. UTI. 8. Hypercholesteremia. 9. Patient has dysphagia with a G-tube. 10 GIB 11. elevated LFTS now off of respiratory isolation plan EGd and colonoscopy for tomorrow stool ob positive will hold GTF for GI procedures tomorrow ppi transfuse to keep HGB above 7.5 abx per id positive blood cultures will fu Subjective ROS Limited/Unobtainable: No Allergies: Coded Allergies: No Known Allergies (Unverified , 08/20/18) Objective Last 24 Hour Vital Signs Date Time Temp Pulse Resp B/P (MAP) Pulse Ox O2 Delivery O2 Flow Rate FiO2 07/26/19 04:00 98.2 90 24 139/75 (96) 100 07/26/19 00:00 98.1 72 20 115/61 (79) 100 07/25/19 21:00 Nasal Cannula 2.0 07/25/19 20:00 97.9 78 22 107/62 (77) 99 07/25/19 16:00 97.7 94 18 104/59 (74) 100 07/25/19 12:00 98.1 72 18 117/69 (85) 100 07/25/19 09:00 106/62 07/25/19 09:00 73 106/62 07/25/19 09:00 Nasal Cannula 2.0 07/25/19 08:00 98.1 73 18 106/62 (77) 100 Intake and Output 07/25/19 07/26/19 19:00 07:00 Intake Total 660 ml Output Total 600 ml Balance 660 ml -600 ml Tube Feeding 660 ml Output Urine Total 600 ml # Voids 3 # Bowel Movements 1 1 Laboratory Tests 07/25/19 10:10: TB Test (T-Spot) [Pending], TB Test Nil Control (T-Spot) [Pending], TB Test Panel A (T-Spot) [Pending], TB Test Panel B (T-Spot) [Pending], TB Test Positive Control (T-Spot) [Pending] 07/26/19 05:35: White Blood Count [Pending], Red Blood Count [Pending], Hemoglobin [Pending], Hematocrit [Pending], Mean Corpuscular Volume [Pending], Mean Corpuscular Hemoglobin [Pending], Mean Corpuscular Hemoglobin Concent [Pending], Red Cell Distribution Width [Pending], Platelet Count [Pending], Mean Platelet Volume [ Pending], Neutrophils (%) (Auto) [Pending], Lymphocytes (%) (Auto) [Pending], Monocytes (%) (Auto) [Pending], Eosinophils (%) (Auto) [Pending], Basophils (%) (Auto) [Pending], Sodium Level 139, Potassium Level 3.8, Chloride Level 106, Carbon Dioxide Level 28, Anion Gap 5, Blood Urea Nitrogen 13, Creatinine 0.7, Estimat Glomerular Filtration Rate > 60, Glucose Level 111H, Calcium Level 8.9 Height (Feet): 5 Height (Inches): 10.00 Weight (Pounds): 129 General Appearance: no apparent distress EENT: normal ENT inspection Neck: supple Cardiovascular: normal rate Respiratory/Chest: decreased breath sounds Abdomen: normal bowel sounds, non tender, soft Extremities: non-tender Ramiro Romero MD July 26, 2019 07:15
[2019-07-26 07:17] LABS: HEMOGLOBIN 7.4 G/DL (14.2-18.0); MEAN CORPUSCULAR VOLUME 91 FL (80-99); PLATELET COUNT 310 K/UL (150-450); RED BLOOD COUNT 2.41 M/UL (4.70-6.10); RED CELL DISTRIBUTION WIDTH 14.8 % (11.6-14.8); WHITE BLOOD COUNT 6.6 K/UL (4.8-10.8)
--- NOTE | 2019-07-26 07:50 | NUR ---
HAND-OFF: Report given to ANTOINETTE Erazo.
[2019-07-26 08:00] VITALS: BP 122/76
--- NOTE | 2019-07-26 08:00 | NUR ---
NURSE NOTES: Patient opens eyes when name called, non verbal respirations unlabored. 02 on at 2L N/C.IV fluids infusing as ordered.G-tube feedings as ordered. No residual noted.Patient has condom catheter with yellow urine noted in collection bag.HOB is elevated.Bed alarm is on,turn and position.
[2019-07-26] MEDS: Lisinopril 10mg tab GT SCH (09:00)
[2019-07-26] MEDS: Doxazosin 1mg Tab ORAL SCH (09:00)
--- NOTE | 2019-07-26 09:33 | General Progress Note ---
Assessment/Plan Status: unchanged Assessment/Plan: 73-year-old male with PMH of advanced dementia (bedbound, nonverbal, PEG dependent at baseline), dysphasia s/p PEG tube, COPD, HTN, depression, PVCs, GERD, functional quadriplegia, adult failure to thrive, sacral ulcer who presents from rehab facility for hematemesis. On admission pt was noted to have temperature of 100.9 rectally, rhonchorous cough. CXR performed which showed RLL infiltrate. Patient admitted for further treatment and evaluation. #Sepsis 2/2 #Aspiration PNA/HCAP #MRSA Bacteremia -cont. in-pt medical care -COVID negative x2 -2d echo negative for vegetations -s/p zosyn (07/22 - 07/24) -d/w Cardio, no CLAUDIO at this time -Appreciate ID recs: cont vanc #TB exposure -pt with no cough -CXR negative -t-spot pending #Positive Occult Stool #Hematemesis -r/o UGIB -Hgb stable, cont to monitor H&H, transfuse for hgb<7 -cont Protonix -GI following: EGD/colon for tomorrow, NPO past midnight #Transaminitis - resolved -likely elevated due to sepsis -no abd pain on palpation -GI following #HTN -cont lisinopril 10 mg daily, amlodipine 5 mg daily, PRN hydralazine 25 GT q6h -appreciated cardio recs #BPH -Tamsulosin--> d/c finasteride as not PEG compatible #Dementia/FTT/Functional Quadriplegia, PEG tube dependent #Depression #Anemia of chronic disease- stable #Decubitus Ulcers/Diffuse Pressure wounds -nutrition consulted for tube feeds -Wound care consulted, recs appreciated DVT PPx: lovenox Time spent on encounter: 36 mins, 21 mins spent on counseling, coordination of care, d/w RN, Dr. Romero, Dr. Rincon. Time of note doesn't reflect time of encounter. Subjective Allergies: Coded Allergies: No Known Allergies (Unverified , 08/20/18) Subjective Follow-up for hematemesis. COVID negative. BCx positive for MRSA 1/2. Repeat negative. 2d echo negative for vegetations. No acute events overnight. Plan for EGD/colon tomorrow. 12 pt ROS neg limited, patient aphasic. Patient appears to be in no distress. Objective Last 24 Hour Vital Signs Date Time Temp Pulse Resp B/P (MAP) Pulse Ox O2 Delivery O2 Flow Rate FiO2 07/26/19 04:00 98.2 90 24 139/75 (96) 100 07/26/19 00:00 98.1 72 20 115/61 (79) 100 07/25/19 21:00 Nasal Cannula 2.0 07/25/19 20:00 97.9 78 22 107/62 (77) 99 07/25/19 16:00 97.7 94 18 104/59 (74) 100 07/25/19 12:00 98.1 72 18 117/69 (85) 100 Intake and Output 07/25/19 07/26/19 19:00 07:00 Intake Total 660 ml Output Total 600 ml Balance 660 ml -600 ml Tube Feeding 660 ml Output Urine Total 600 ml # Voids 3 # Bowel Movements 1 1 Laboratory Tests 07/25/19 10:10: TB Test (T-Spot) [Pending], TB Test Nil Control (T-Spot) [Pending], TB Test Panel A (T-Spot) [Pending], TB Test Panel B (T-Spot) [Pending], TB Test Positive Control (T-Spot) [Pending] 07/26/19 05:35: White Blood Count 6.6, Red Blood Count 2.41L, Hemoglobin 7.4L, Hematocrit 22.0L , Mean Corpuscular Volume 91, Mean Corpuscular Hemoglobin 30.7, Mean Corpuscular Hemoglobin Concent 33.8, Red Cell Distribution Width 14.8, Platelet Count 310, Mean Platelet Volume 5.2L, Neutrophils (%) (Auto) , Lymphocytes (%) ( Auto) , Monocytes (%) (Auto) , Eosinophils (%) (Auto) , Basophils (%) (Auto) , Neutrophils % (Manual) [Pending], Lymphocytes % (Manual) [Pending], Platelet Estimate [Pending], Platelet Morphology [Pending], Sodium Level 139, Potassium Level 3.8, Chloride Level 106, Carbon Dioxide Level 28, Anion Gap 5, Blood Urea Nitrogen 13, Creatinine 0.7, Estimat Glomerular Filtration Rate > 60, Glucose Level 111H, Calcium Level 8.9 Height (Feet): 5 Height (Inches): 10.00 Weight (Pounds): 129 Objective General Appearance: NAD, non-verbal at b/l, awake, thin HEENT: NCAT, EOMI, dry MM Neck: normal alignment, supple Respiratory/Chest: CTAB, no accessory muscle usage Cardiovascular/Chest: normal rate, regular rhythm Abdomen: non tender, soft, PEG tube in place, c/d/i Extremities: contracted b/l UE and LE, no edema appreciated Neurologic: Demented, nonverbal Musculoskeletal: atrophy Russell Yee M.D. July 26, 2019 09:33
[2019-07-26] MEDS: Tamsulosin 0.4mg cap ORAL SCH (10:21)
[2019-07-26] MEDS: Lactulose 20gm/30ml UDC GT SCH ×3 (10:21→17:56)
[2019-07-26] MEDS: Pantoprazole Inj IV SCH ×2 (10:22→20:26)
[2019-07-26] MEDS: Ascorbic Acid 500mg tab GT SCH ×2 (10:22→18:00)
[2019-07-26] MEDS: Thiamine 100mg tab GT SCH (10:22)
--- NOTE | 2019-07-26 11:18 | NUR ---
RD ASSESSMENT & RECOMMENDATIONS SEE CARE ACTIVITY FOR COMPLETE ASSESSMENT DAILY ESTIMATED NEEDS: Needs based on Wounds, wasting/ 49kg 30-35 kcals/kg 7768-0982 total kcals 1.25-2.0 g protein/kg 61-98 g total protein 25-30 mL/kg 7101-5740 total fluid mLs NUTRITION DIAGNOSIS: * Swallowing difficulty R/T dysphagia as evidenced by pt is PEG dep. * Increased kcal/prot intake needs R/T wound healing as evidenced by pt admitted wounds including deep unstageable wound @ right lateral foot distal malleolus and DTI @ sacrum. CURRENT TF:Vital AF 1.2 @ 60ml/hr x 24 hrs ENTERAL NUTRITION RECOMMENDATIONS: Osmolite 1.2 @ 60ml/hr x 24 hrs to provide 1440ml, 1728kcal, 80g prot, 1181ml free water * Rec Osmolite 1.2, non fiber containing TF for easy tolerance given possible GIB. * Start @ 20ml/hr, advance as tolerated 10ml/hr q4-6 hrs to goal * TF @ goal will provide 35kcal/1.63g prot per kg * HOB over 30 degrees * Water flush of 100ml q 8 hrs without IVF ADDITIONAL RECOMMENDATIONS: * CALIBRATED BEDSCALE WT wt in May 2019: 108 lbs vs current EMR wt of 145lbs. * Wound care: continue Vit C Add YUNIOR in 4oz H2O via GT BID * Monitor lytes, replete as needed . .
[2019-07-26 12:00] VITALS: BP 116/60
--- NOTE | 2019-07-26 12:08 | Surgery Progress Note ---
Surgery Progress Note Subjective Additional Comments no acute events lab noed exam unchanged Objective Last 24 Hour Vital Signs Date Time Temp Pulse Resp B/P (MAP) Pulse Ox O2 Delivery O2 Flow Rate FiO2 07/26/19 09:00 108/59 07/26/19 09:00 81 108/59 07/26/19 09:00 Nasal Cannula 2.0 07/26/19 08:00 97.7 76 19 122/76 (91) 100 07/26/19 04:00 98.2 90 24 139/75 (96) 100 07/26/19 00:00 98.1 72 20 115/61 (79) 100 07/25/19 21:00 Nasal Cannula 2.0 07/25/19 20:00 97.9 78 22 107/62 (77) 99 07/25/19 16:00 97.7 94 18 104/59 (74) 100 I&O Intake and Output 07/25/19 07/26/19 19:00 07:00 Intake Total 660 ml Output Total 600 ml Balance 660 ml -600 ml Tube Feeding 660 ml Output Urine Total 600 ml # Voids 3 # Bowel Movements 1 1 Dressing: other Wound: other Drains: other Cardiovascular: RSR Respiratory: decreased breath sounds Abdomen: soft, non-tender, present bowel sounds Extremities: no tenderness, no cyanosis Laboratory Tests Test 07/26/19 05:35 White Blood Count 6.6 K/UL (4.8-10.8) Red Blood Count 2.41 M/UL (4.70-6.10) L Hemoglobin 7.4 G/DL (14.2-18.0) L Hematocrit 22.0 % (42.0-52.0) L Mean Corpuscular Volume 91 FL (80-99) Mean Corpuscular Hemoglobin 30.7 PG (27.0-31.0) Mean Corpuscular Hemoglobin Concent 33.8 G/DL (32.0-36.0) Red Cell Distribution Width 14.8 % (11.6-14.8) Platelet Count 310 K/UL (150-450) Mean Platelet Volume 5.2 FL (6.5-10.1) L Neutrophils (%) (Auto) % (45.0-75.0) Lymphocytes (%) (Auto) % (20.0-45.0) Monocytes (%) (Auto) % (1.0-10.0) Eosinophils (%) (Auto) % (0.0-3.0) Basophils (%) (Auto) % (0.0-2.0) Differential Total Cells Counted 100 Neutrophils % (Manual) 47 % (45-75) Lymphocytes % (Manual) 44 % (20-45) Monocytes % (Manual) 4 % (1-10) Eosinophils % (Manual) 5 % (0-3) H Basophils % (Manual) 0 % (0-2) Band Neutrophils 0 % (0-8) Platelet Estimate Adequate Platelet Morphology Normal Anisocytosis 1+ Sodium Level 139 MMOL/L (136-145) Potassium Level 3.8 MMOL/L (3.5-5.1) Chloride Level 106 MMOL/L (98-107) Carbon Dioxide Level 28 MMOL/L (21-32) Anion Gap 5 mmol/L (5-15) Blood Urea Nitrogen 13 mg/dL (7-18) Creatinine 0.7 MG/DL (0.55-1.30) Estimat Glomerular Filtration Rate > 60 mL/min (>60) Glucose Level 111 MG/DL (74-106) H Calcium Level 8.9 MG/DL (8.5-10.1) Plan Problems: (1) GI bleed Assessment & Plan: Patient noted to have coffee-ground emesis and melena. Hemoglobin noted and stable No active bleeding noted at this time No gross blood on rectal Trend labs will monitor Appreciate GI input scope once cleared (2) Decubitus skin ulcer Assessment & Plan: Patient presents on admission with multiple skin concerns. Patient identified to have a 2 cm x 1 cm x 2 mm deep unstageable right lateral foot distal malleolus decubitus ulcer with slough in the base raised edges periwound with mild erythema no active drainage no acute active infectious process no foul odor. Patient identified to have deep tissue injury around the area of the issue him and sacrum. Prior healing skin changes identified. No active drainage no fluctuance. Overall patient very deconditioned and malnutrition. Albumin low. Currently sepsis Nutritional optimization very important Treatment plan: Wash right foot daily with normal saline. Apply Thera honey followed by gauze and foam dressing to the right foot ulcer change daily and as needed saturation Apply skin protectant and foam dressing to the bilateral ischio and sacral region change every 3 days and as needed saturation Monitor for incontinence Change accordingly Turn every 2 hours Offload pressure with air mattress pressure release Offload heels with pillow under calves We will follow with recommendations thank you for let me participate patient's care (3) Severe malnutrition Assessment & Plan: DAILY ESTIMATED NEEDS: Needs based on Wounds, wasting/ 49kg 30-35 kcals/kg 0923-2763 total kcals 1.25-2.0 g protein/kg 61-98 g total protein 25-30 mL/kg 7880-3464 total fluid mLs NUTRITION DIAGNOSIS: * Swallowing difficulty R/T dysphagia as evidenced by pt is PEG dep. * Increased kcal/prot intake needs R/T wound healing as evidenced by pt admitted wounds including deep unstageable wound @ right lateral foot distal malleolus and DTI @ sacrum. CURRENT TF:Vital AF 1.2 @ 60ml/hr x 24 hrs ENTERAL NUTRITION RECOMMENDATIONS: Osmolite 1.2 @ 60ml/hr x 24 hrs to provide 1440ml, 1728kcal, 80g prot, 1181ml free water * Rec Osmolite 1.2, non fiber containing TF for easy tolerance given possible GIB. * Start @30ml/hr, advance as tolerated 10ml/hr q4-6 hrs to goal * TF @ goal will provide 35kcal/1.63g prot per kg * HOB over 30 degrees * Water flush of 100ml q 8 hrs without IVF ADDITIONAL RECOMMENDATIONS: * CALIBRATED BEDSCALE WT wt in May 2019: 108 lbs vs current EMR wt of 145lbs. * Wound care: continue Vit C Add YUNIOR in 4oz H2O via GT BID * Monitor lytes, replete as needed (4) Failure to thrive syndrome, adult (5) Sepsis Assessment & Plan: Febrile, leukocytosis, lactic acidosis. Abnormal labs. Lactic acidosis improving with fluid resuscitation UA noted Micro reviewed Broad-spectrum antibiotics per infectious disease. Continue with current care and plan will follow with recs TB r/o (6) Elevated LFTs (7) Suspected COVID-19 virus infection Assessment & Plan: Persistent infiltrate in right lower lobe, likely pneumonia. Recommend correlation with CT to exclude mass lesion. Negative JASONID Reji Guy July 26, 2019 12:08
--- NOTE | 2019-07-26 12:13 | Cardiac Electrophysiology PN ---
Assessment/Plan Assessment/Plan 1. Hypertension. Continue amlodipine 5 mg daily, lisinopril 10 mg daily and p.r.n. hydralazine 25 GT q 6 2. Sepsis. On Abx by by ID. 3. Upper GI bleed. No active bleed. EGD by Dr. Romero tomorrow 4. Lactic acidosis, that has resolved. 5. Aspiration pneumonia, on antibiotic. 6. COVID PCR negative x1. Awaiting second COVID to return to half-way. 7. Transaminitis. 8. Advanced dementia. 9. Functional quadriplegia. 10. Dysphagia, s/P PEG placement. 11. Sacral wound. 12. Right foot ulcer. Subjective Subjective Nonverbal in SR. Negative Covid x2. EGD and colonoscopy pending tomorrow Objective Last 24 Hour Vital Signs Date Time Temp Pulse Resp B/P (MAP) Pulse Ox O2 Delivery O2 Flow Rate FiO2 07/26/19 09:00 108/59 07/26/19 09:00 81 108/59 07/26/19 09:00 Nasal Cannula 2.0 07/26/19 08:00 97.7 76 19 122/76 (91) 100 07/26/19 04:00 98.2 90 24 139/75 (96) 100 07/26/19 00:00 98.1 72 20 115/61 (79) 100 07/25/19 21:00 Nasal Cannula 2.0 07/25/19 20:00 97.9 78 22 107/62 (77) 99 07/25/19 16:00 97.7 94 18 104/59 (74) 100 Intake and Output 07/25/19 07/26/19 19:00 07:00 Intake Total 660 ml Output Total 600 ml Balance 660 ml -600 ml Tube Feeding 660 ml Output Urine Total 600 ml # Voids 3 # Bowel Movements 1 1 Laboratory Tests Test 07/26/19 05:35 White Blood Count 6.6 K/UL (4.8-10.8) Red Blood Count 2.41 M/UL (4.70-6.10) L Hemoglobin 7.4 G/DL (14.2-18.0) L Hematocrit 22.0 % (42.0-52.0) L Mean Corpuscular Volume 91 FL (80-99) Mean Corpuscular Hemoglobin 30.7 PG (27.0-31.0) Mean Corpuscular Hemoglobin Concent 33.8 G/DL (32.0-36.0) Red Cell Distribution Width 14.8 % (11.6-14.8) Platelet Count 310 K/UL (150-450) Mean Platelet Volume 5.2 FL (6.5-10.1) L Neutrophils (%) (Auto) % (45.0-75.0) Lymphocytes (%) (Auto) % (20.0-45.0) Monocytes (%) (Auto) % (1.0-10.0) Eosinophils (%) (Auto) % (0.0-3.0) Basophils (%) (Auto) % (0.0-2.0) Differential Total Cells Counted 100 Neutrophils % (Manual) 47 % (45-75) Lymphocytes % (Manual) 44 % (20-45) Monocytes % (Manual) 4 % (1-10) Eosinophils % (Manual) 5 % (0-3) H Basophils % (Manual) 0 % (0-2) Band Neutrophils 0 % (0-8) Platelet Estimate Adequate Platelet Morphology Normal Anisocytosis 1+ Sodium Level 139 MMOL/L (136-145) Potassium Level 3.8 MMOL/L (3.5-5.1) Chloride Level 106 MMOL/L (98-107) Carbon Dioxide Level 28 MMOL/L (21-32) Anion Gap 5 mmol/L (5-15) Blood Urea Nitrogen 13 mg/dL (7-18) Creatinine 0.7 MG/DL (0.55-1.30) Estimat Glomerular Filtration Rate > 60 mL/min (>60) Glucose Level 111 MG/DL (74-106) H Calcium Level 8.9 MG/DL (8.5-10.1) Microbiology Date/Time Source Procedure Growth Status 07/25/19 01:45 Urine,Clean Catch Urine Culture - Preliminary Resulted Objective NECK: No JVD. LUNGS: Coarse rhonchi. CARDIOVASCULAR: Regular S1 and S2 with no gallop. ABDOMEN: Soft, status post G-tube. EXTREMITIES: No pitting edema. Ismael Christine MD July 26, 2019 12:13
[2019-07-26] MEDS ORDERED: Nulytely 4L GT ONE (14:00)
[2019-07-26 16:00] VITALS: BP 131/82
--- NOTE | 2019-07-26 18:00 | NUR ---
NURSE NOTES: Patient step daughter Zoniaalie Nails aware that patient is schedule for EGD and Colonoscopy schedule for 07/27/19.
--- NOTE | 2019-07-26 18:12 | Infectious Diseases Prog Note ---
Assessment/Plan Assessment/Plan ASSESSMENT AND PLAN: 1. mrsa bacteremia, ? 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 GI bleed and coffee-ground emesis. Treatment per GI and Surgery. 3. Patient has multiple wounds, but did not look like acutely infected. Continue wound care per Surgery. 4. Anemia and GI bleed. 5. Dementia. 6. Dysphagia, G-tube, and aspiration risk. 7. COPD. 8. Hypertension. 9. Depression. 10. PVCs. 11. GERD. 12. Quadriplegia. 13. Failure to thrive. 14. Continue treatment per primary consultants. 15. No known drug allergies. 16. Social history is negative. 17. Family history is noncontributory. 18. MAR was noted. 19. Case discussed with RN. Subjective Constitutional: Denies: fever HEENT: Denies: congestion Respiratory: Denies: shortness of breath Breasts: Denies: discharge Gastrointestinal/Abdominal: Denies: nausea, vomiting, diarrhea Genitourinary: Reports: other - no duggan Neurologic: Denies: headache Psychiatric: Reports: other - NA Skin: Denies: rash Hematologic: Denies: bleeding Musculoskeletal: Denies: pain Allergies: Coded Allergies: No Known Allergies (Unverified , 08/20/18) Objective Vital Signs Last 24 Hour Vital Signs Date Time Temp Pulse Resp B/P (MAP) Pulse Ox O2 Delivery O2 Flow Rate FiO2 07/26/19 16:00 97.7 76 19 131/82 (98) 100 07/26/19 12:00 98.2 73 19 116/60 (78) 99 07/26/19 09:00 108/59 07/26/19 09:00 81 108/59 07/26/19 09:00 Nasal Cannula 2.0 07/26/19 08:00 97.7 76 19 122/76 (91) 100 07/26/19 04:00 98.2 90 24 139/75 (96) 100 07/26/19 00:00 98.1 72 20 115/61 (79) 100 07/25/19 21:00 Nasal Cannula 2.0 07/25/19 20:00 97.9 78 22 107/62 (77) 99 Height (Feet): 5 Height (Inches): 10.00 Weight (Pounds): 129 General Appearance: no acute distress HEENT: normocephalic, atraumatic, anicteric, mucous membranes moist Respiratory/Chest: crackles/rales, rhonchi - bilaterally Cardiovascular: normal rate, regular rhythm, no gallop/murmur, no JVD Abdomen: normal bowel sounds, soft, non tender, no organomegaly, non distended Genitourinary: other - no duggan Extremities: no cyanosis Skin: no rash 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 The left lung bilateral pleural spaces remain clear. The heart size is normal. Impression: Unchanged right lung reticular infiltrate and associated atelectasis , over 2 days Chest x-ray - 07/22/19 - Procedure: XRAY Chest 1v Indication: Shortness of breath Technique: One view of the chest Comparison: 07/19/2019 Findings: Right basilar atelectasis and or infiltrate appears slightly less prominent than on the prior study, although this could be an artifact of different rotation. There is some atelectasis developing in the left midlung, not evident previously. The remainder the lungs and pleural spaces are clear. The heart size is normal. Impression: Possibly improved right basilar atelectasis and infiltrate, since prior exam of 3 days earlier New atelectasis in the left midlung Chest x-ray - 07/25/19 - Procedure: XRAY Chest 1v Indication: Cough Technique: One view of the chest Comparison: 07/22/2019 Findings: There are a suitable faint reticular opacities at both lung bases, new or increased from prior exam if real. There is atelectasis or scarring in the right infrahilar region which is probably unchanged allowing for differences in rotation.. Impression: Questionable bibasilar faint reticular infiltrates. Correlate with clinical findings. Microbiology Date/Time Source Procedure Growth Status 07/22/19 20:15 Blood Blood Culture - Preliminary NO GROWTH AFTER 72 HOURS Resulted 07/19/19 17:50 Nasopharynx Coronavirus COVID-19 PCR ([facility]) - Final Complete 07/25/19 01:45 Urine,Clean Catch Urine Culture - Preliminary Resulted 07/17/19 09:00 Rectum VRE Culture - Final NO VANCOMYCIN RESISTANT ENTEROCOCCUS ... Complete Microbiology Date/Time Source Procedure Growth Status 07/25/19 01:45 Urine,Clean Catch Urine Culture - Preliminary Resulted Laboratory Tests Test 07/26/19 05:35 White Blood Count 6.6 K/UL (4.8-10.8) Red Blood Count 2.41 M/UL (4.70-6.10) L Hemoglobin 7.4 G/DL (14.2-18.0) L Hematocrit 22.0 % (42.0-52.0) L Mean Corpuscular Volume 91 FL (80-99) Mean Corpuscular Hemoglobin 30.7 PG (27.0-31.0) Mean Corpuscular Hemoglobin Concent 33.8 G/DL (32.0-36.0) Red Cell Distribution Width 14.8 % (11.6-14.8) Platelet Count 310 K/UL (150-450) Mean Platelet Volume 5.2 FL (6.5-10.1) L Neutrophils (%) (Auto) % (45.0-75.0) Lymphocytes (%) (Auto) % (20.0-45.0) Monocytes (%) (Auto) % (1.0-10.0) Eosinophils (%) (Auto) % (0.0-3.0) Basophils (%) (Auto) % (0.0-2.0) Differential Total Cells Counted 100 Neutrophils % (Manual) 47 % (45-75) Lymphocytes % (Manual) 44 % (20-45) Monocytes % (Manual) 4 % (1-10) Eosinophils % (Manual) 5 % (0-3) H Basophils % (Manual) 0 % (0-2) Band Neutrophils 0 % (0-8) Platelet Estimate Adequate Platelet Morphology Normal Anisocytosis 1+ Sodium Level 139 MMOL/L (136-145) Potassium Level 3.8 MMOL/L (3.5-5.1) Chloride Level 106 MMOL/L (98-107) Carbon Dioxide Level 28 MMOL/L (21-32) Anion Gap 5 mmol/L (5-15) Blood Urea Nitrogen 13 mg/dL (7-18) Creatinine 0.7 MG/DL (0.55-1.30) Estimat Glomerular Filtration Rate > 60 mL/min (>60) Glucose Level 111 MG/DL (74-106) H Calcium Level 8.9 MG/DL (8.5-10.1) Current Medications Medications (Trade) Dose Ordered Sig/Altagracia Route PRN Reason Start Time Stop Time Status Last Admin Dose Admin Acetaminophen (Tylenol) 650 mg Q4H PRN GT Temp >100.5 07/23/19 01:45 08/16/19 01:29 Acetaminophen (Tylenol) 650 mg Q4H PRN GT Mild Pain (Pain Scale 1-3) 07/23/19 02:15 08/16/19 10:14 Amlodipine Besylate (Norvasc) 5 mg DAILY GT 07/23/19 09:00 08/17/19 08:59 07/24/19 09:02 Ascorbic Acid (Vitamin C) 250 mg TWICE A DAY GT 07/23/19 09:00 08/17/19 08:59 07/26/19 10:22 Bisacodyl (Dulcolax) 10 mg DAILYPRN PRN RECTAL Constipation 07/23/19 10:15 10/15/19 10:14 Dextrose (Dextrose 50%) 25 ml Q30M PRN IV Hypoglycemia 07/23/19 01:15 10/15/19 10:14 Dextrose (Dextrose 50%) 50 ml Q30M PRN IV Hypoglycemia 07/23/19 01:15 10/15/19 10:14 Dextrose/Sodium Chloride 1,000 ml @ 75 mls/hr [id number] IV 07/24/19 10:30 08/23/19 10:29 07/26/19 02:49 Doxazosin Mesylate (Cardura) 1 mg DAILY ORAL 07/24/19 09:00 08/23/19 08:59 07/25/19 10:45 Hydralazine HCl (Apresoline) 25 mg Q6H PRN GT SBP > 160 07/23/19 01:30 10/15/19 01:29 Lactulose (Cephulac) 20 gm THREE TIMES A DAY GT 07/23/19 09:00 08/18/19 12:59 07/26/19 14:39 Lisinopril (ZestriL) 10 mg DAILY GT 07/23/19 09:00 08/17/19 08:59 07/24/19 09:03 Magnesium Hydroxide (Mom) 30 ml HSPRN PRN GT Constipation 07/23/19 10:15 08/16/19 10:14 Multivitamins (Multivitamins) 1 tab DAILY GT 07/23/19 09:00 08/17/19 08:59 07/26/19 10:22 Ondansetron HCl (Zofran) 4 mg Q6H PRN IVP Nausea & Vomiting 07/23/19 01:45 08/16/19 01:44 Pantoprazole (Protonix) 40 mg EVERY 12 HOURS IV 07/23/19 09:00 08/16/19 20:59 07/26/19 10:22 Polyethylene Glycol (Miralax) 17 gm DAILYPRN PRN GT Constipation 07/23/19 10:15 08/16/19 10:14 Potassium Chloride (K-Dur) 20 meq DAILY GT 07/23/19 09:00 10/16/19 08:59 07/26/19 10:21 Tamsulosin HCl (Flomax) 0.4 mg DAILY ORAL 07/23/19 09:00 08/17/19 08:59 07/26/19 10:21 Thiamine HCl (Vitamin B1) 100 mg DAILY GT 07/23/19 09:00 08/17/19 08:59 07/26/19 10:22 Vancomycin HCl (Vanco rx to dose) 1 ea DAILY PRN MISC Per rx protocol 07/23/19 09:00 08/16/19 12:14 Vancomycin HCl 750 mg/Sodium Chloride 275 ml @ 183.333 mls/hr Q12H IVPB 07/25/19 02:00 07/28/19 01:59 07/26/19 14:39 Bonny Rincon MD July 26, 2019 18:12
--- NOTE | 2019-07-26 18:56 | NUR ---
NURSE NOTES: Patient receiving bowel prep as ordered,via G-tube for schedule procedure on 07/26.Patient NPO.Bed alarm on,HOB is elevated.
--- NOTE | 2019-07-26 19:29 | NUR ---
HAND-OFF: Report given to Rinku CURRY,aware of fall risk..
--- NOTE | 2019-07-26 20:00 | NUR ---
NURSE NOTES: Patient received in bed, nonverbal, contracted. IV intact and patent. NPO, Continuing on bowel prep through GT. HOB elevated. Will continue plan of care.
[2019-07-26 20:33] VITALS: BP 144/73
[2019-07-27] VITALS (11 sets, daily range): BP systolic 103–135; BP diastolic 48–85
[2019-07-27] MEDS: Vancomycin 750 MG in NS 275 ML IVPB SCH ×2 (01:42→14:21)
--- NOTE | 2019-07-27 06:16 | NUR ---
NURSE NOTES: Wound care done on all wounds, sacrum, bilateral feet and heels, left elbow. Tolerated well. Bowel return clear for procedure. Addendum: 07/27/19 at 0618 by SHAUNNA ROSENBAUM RN RN and bilateral heels
[2019-07-27 06:35] LABS: BASOPHILS % (AUTO) 1.6 % (0.0-2.0); EOSINOPHILS % (AUTO) 4.5 % (0.0-3.0); HEMATOCRIT 23.8 % (42.0-52.0); HEMOGLOBIN 8.2 G/DL (14.2-18.0); LYMPHOCYTES % (AUTO) 32.1 % (20.0-45.0); MEAN CORPUSCULAR VOLUME 91 FL (80-99); MONOCYTES % (AUTO) 9.3 % (1.0-10.0); NEUTROPHILS % (AUTO) 52.4 % (45.0-75.0); PLATELET COUNT 328 K/UL (150-450); RED BLOOD COUNT 2.62 M/UL (4.70-6.10); RED CELL DISTRIBUTION WIDTH 14.3 % (11.6-14.8); WHITE BLOOD COUNT 7.6 K/UL (4.8-10.8)
[2019-07-27 06:41] LABS: ANION GAP 10 mmol/L (5-15); BLOOD UREA NITROGEN 8 mg/dL (7-18); CALCIUM 9.3 MG/DL (8.5-10.1); CARBON DIOXIDE 27 MMOL/L (21-32); CHLORIDE 105 MMOL/L (98-107); CREATININE 0.6 MG/DL (0.55-1.30); POTASSIUM 3.7 MMOL/L (3.5-5.1); SODIUM 142 MMOL/L (136-145)
--- NOTE | 2019-07-27 07:20 | NUR ---
HAND-OFF: Report given to Kacey CURRY. Patient kept NPO for EGD/COLO.
--- NOTE | 2019-07-27 07:38 | Anethesia Preoperative Eval ---
Anesthesia Pre-op PMH/ROS General Date of Evaluation: July 27, 2019 Time of Evaluation: 07:37 Anesthesiologist: lorenzo ASA Score: ASA 4 Mallampati Score Class I : Soft palate, uvula, fauces, pillars visible Class II: Soft palate, uvula, fauces visible Class III: Soft palate, base of uvula visible Class IV: Only hard plate visible Mallampati Classification: Class II Surgeon: sebas Diagnosis: gi bleed Surgical Procedure: egd/colonoscopy Anesthesia History: none Social History: smoking - nonsmoker Family History: no anesthesia problems Allergies: Coded Allergies: No Known Allergies (Unverified , 08/20/18) Medications: see eMAR Patient NPO?: Yes Past Medical History Cardiovascular: Reports: HTN Pulmonary: Reports: COPD Gastrointestinal/Genitourinary: Reports: other - g-tube, dysphagia, bph Neurologic/Psychiatric: Reports: dementia, CVA, depression/anxiety Hematology/Immune: Reports: anemia Anesthesia Pre-op Phys. Exam Physician Exam Last Vital Signs Date Time Temp Pulse Resp B/P (MAP) Pulse Ox O2 Delivery O2 Flow Rate FiO2 07/27/19 04:00 97.9 81 22 135/71 (92) 100 07/26/19 21:00 Nasal Cannula 2.0 Constitutional: NAD Neurologic: other - contractures Cardiovascular: RRR Respiratory: CTA Gastrointestinal: S/NT/ND Airway Exam Mallampati Score: Class II MO: limited Neck: short TMD: 2fb ROM: limited Teeth: missing Anesthesia Pre-op A/P Labs Hematology Test 07/27/19 05:10 White Blood Count 7.6 K/UL (4.8-10.8) Red Blood Count 2.62 M/UL (4.70-6.10) L Hemoglobin 8.2 G/DL (14.2-18.0) L Hematocrit 23.8 % (42.0-52.0) L Mean Corpuscular Volume 91 FL (80-99) Mean Corpuscular Hemoglobin 31.2 PG (27.0-31.0) H Mean Corpuscular Hemoglobin Concent 34.4 G/DL (32.0-36.0) Red Cell Distribution Width 14.3 % (11.6-14.8) Platelet Count 328 K/UL (150-450) Mean Platelet Volume 5.5 FL (6.5-10.1) L Neutrophils (%) (Auto) 52.4 % (45.0-75.0) Lymphocytes (%) (Auto) 32.1 % (20.0-45.0) Monocytes (%) (Auto) 9.3 % (1.0-10.0) Eosinophils (%) (Auto) 4.5 % (0.0-3.0) H Basophils (%) (Auto) 1.6 % (0.0-2.0) Chemistry Test 07/27/19 05:10 Sodium Level 142 MMOL/L (136-145) Potassium Level 3.7 MMOL/L (3.5-5.1) Chloride Level 105 MMOL/L (98-107) Carbon Dioxide Level 27 MMOL/L (21-32) Anion Gap 10 mmol/L (5-15) Blood Urea Nitrogen 8 mg/dL (7-18) Creatinine 0.6 MG/DL (0.55-1.30) Estimat Glomerular Filtration Rate > 60 mL/min (>60) Glucose Level 97 MG/DL (74-106) Calcium Level 9.3 MG/DL (8.5-10.1) Risk Assessment & Plan Assessment: asa4 Plan: mac Status Change Before Surgery: No Pre-Antibiotics Drug: Patricia Strickland MD July 27, 2019 07:38
[2019-07-27] MEDS ORDERED: Midazolam 2mg/2ml Inj IVP PRN (07:45)
[2019-07-27] MEDS ORDERED: DiphenhydrAMINE 50mg/ml Inj IVP PRN (07:45)
[2019-07-27] MEDS ORDERED: fentaNYL 100 mcg/2 mL IV PRN (07:45)
[2019-07-27] MEDS ORDERED: Atropine Sulfate 0.4mg/ml inj IVP PRN (07:45)
--- NOTE | 2019-07-27 07:57 | NUR ---
NURSE NOTES: Patient opens eyes to touch.02 on at 2L N/C,respirations unlabored.Patient has condom catheter,clear yellow urine noted in collection bag.IV fluids infusing as ordered.HOB in princess esteves position.G-tube in place and clamped.Patient remains NPO for schedule procedures today.Bed alarm on.
[2019-07-27] MEDS ORDERED: Lidocaine 1% MPF 10mg/ml 5ml ONE (08:00)
[2019-07-27] MEDS ORDERED: NS 500ML IVPB ONE (08:20)
--- NOTE | 2019-07-27 08:21 | Pre-Procedure Note/Attestation ---
Pre-Procedure Note/Attestation Complete Prior to Procedure Planned Procedure: not applicable Procedure Narrative: egd/colonoscopy Indications for Procedure Pre-Operative Diagnosis: gib Attestation I attest that I discussed the nature of the procedure; its benefits; risks and complications; and alternatives (and the risks and benefits of such alternatives ), prior to the procedure, with the patient (or the patient's legal veterans service representative). I attest that, if there was a reasonable possibility of needing a blood transfusion, the patient (or the patient's legal veterans service representative) was given the [facility] standardized written summary, pursuant to the Vic[place] Blood Safety Act ([place] Health and Safety Code # 1645, as amended). I attest that I re-evaluated the patient just prior to the surgery and that there has been no change in the patient's H&P, except as documented below: Ramiro Romero MD July 27, 2019 08:21
--- NOTE | 2019-07-27 08:33 | General Progress Note ---
Assessment/Plan Status: unchanged Assessment/Plan: 73-year-old male with PMH of advanced dementia (bedbound, nonverbal, PEG dependent at baseline), dysphasia s/p PEG tube, COPD, HTN, depression, PVCs, GERD, functional quadriplegia, adult failure to thrive, sacral ulcer who presents from rehab facility for hematemesis. On admission pt was noted to have temperature of 100.9 rectally, rhonchorous cough. CXR performed which showed RLL infiltrate. Patient admitted for further treatment and evaluation. #Sepsis 2/2 #Aspiration PNA/HCAP #MRSA Bacteremia -cont. in-pt medical care -COVID negative x2 -2d echo negative for vegetations -s/p zosyn (07/22 - 07/24) -d/w Cardio, no CLAUDIO at this time -Appreciate ID recs: cont vanc day #01/27, transition to PO doxy for 2 weeks once finished vanco IV course #TB exposure -pt with no cough -CXR negative -t-spot pending -d/w ID, no isolation required at this time, pt will need repeat t-spot test in 1 month as o/p #Positive Occult Stool #Hematemesis -r/o UGIB -Hgb stable, cont to monitor H&H, transfuse for hgb<7 -cont Protonix -GI following: EGD/colon negative for any sources of bleeding, 3 polyps found. Pt OK for d/c from GI stand point, f/u w/ GI as o/p #Transaminitis - resolved -likely elevated due to sepsis -no abd pain on palpation -GI following #HTN -cont lisinopril 10 mg daily, amlodipine 5 mg daily, PRN hydralazine 25 GT q6h -appreciated cardio recs #BPH -Tamsulosin--> d/c finasteride as not PEG compatible #Dementia/FTT/Functional Quadriplegia, PEG tube dependent #Depression #Anemia of chronic disease- stable #Decubitus Ulcers/Diffuse Pressure wounds -nutrition consulted for tube feeds -Wound care consulted, recs appreciated DVT PPx: lovenox Time spent on encounter: 35 mins, 21 mins spent on counseling, coordination of care, d/w RN, Dr. Romero, Dr. Rincon. Time of note doesn't reflect time of encounter. Subjective Allergies: Coded Allergies: No Known Allergies (Unverified , 08/20/18) Subjective Follow-up for hematemesis. COVID negative. BCx positive for MRSA 1/2. Repeat negative. 2d echo negative for vegetations. Plan for EGD/colon today. 12 pt ROS neg limited, patient aphasic. Patient appears to be in no distress. Objective Last 24 Hour Vital Signs Date Time Temp Pulse Resp B/P (MAP) Pulse Ox O2 Delivery O2 Flow Rate FiO2 07/27/19 04:00 97.9 81 22 135/71 (92) 100 07/27/19 00:00 98.1 84 24 126/85 (99) 97 07/26/19 21:00 Nasal Cannula 2.0 07/26/19 20:33 98.1 87 24 144/73 (96) 100 07/26/19 16:00 97.7 76 19 131/82 (98) 100 07/26/19 12:00 98.2 73 19 116/60 (78) 99 07/26/19 09:00 108/59 07/26/19 09:00 81 108/59 07/26/19 09:00 Nasal Cannula 2.0 Intake and Output 07/26/19 07/27/19 19:00 07:00 Intake Total 1042 ml 2935.000 ml Output Total 500 ml 600 ml Balance 542 ml 2335.000 ml IV Total 682 ml 935.000 ml Tube Feeding 360 ml Other 2000 ml Output Urine Total 500 ml 600 ml # Voids 3 # Bowel Movements 5 Laboratory Tests 07/27/19 05:10: White Blood Count 7.6, Red Blood Count 2.62L, Hemoglobin 8.2L, Hematocrit 23.8L , Mean Corpuscular Volume 91, Mean Corpuscular Hemoglobin 31.2H, Mean Corpuscular Hemoglobin Concent 34.4, Red Cell Distribution Width 14.3, Platelet Count 328, Mean Platelet Volume 5.5L, Neutrophils (%) (Auto) 52.4, Lymphocytes ( %) (Auto) 32.1, Monocytes (%) (Auto) 9.3, Eosinophils (%) (Auto) 4.5H, Basophils (%) (Auto) 1.6, Sodium Level 142, Potassium Level 3.7, Chloride Level 105, Carbon Dioxide Level 27, Anion Gap 10, Blood Urea Nitrogen 8, Creatinine 0.6, Estimat Glomerular Filtration Rate > 60, Glucose Level 97, Calcium Level 9.3 Height (Feet): 5 Height (Inches): 5.00 Weight (Pounds): 132 Objective General Appearance: NAD, non-verbal at b/l, awake, thin HEENT: NCAT, EOMI, dry MM Neck: normal alignment, supple Respiratory/Chest: CTAB, no accessory muscle usage Cardiovascular/Chest: normal rate, regular rhythm Abdomen: non tender, soft, PEG tube in place, c/d/i Extremities: contracted b/l UE and LE, no edema appreciated Neurologic: Demented, nonverbal Musculoskeletal: atrophy Russell Yee M.D. July 27, 2019 08:33
--- NOTE | 2019-07-27 08:52 | Endoscopy Procedure Note ---
Endoscopy Procedure Note General Indication for Procedure: gib Procedures Performed: EGD, colonoscopy Operative Findings/Diagnosis: 3 polyps Specimen: yes Pt Tolerated Procedure Well: Yes Estimated Blood Loss: none Anesthesia Anesthesiologist: samantha Anesthesia: MAC Inserted Devices Implant(s) used?: No Quality Quality of Bowel Preparation: Good Did scope reach the cecum?: Yes Was there any complications?: No GI Core Measures 50 yrs or older w/o bx or poly: Not Applicable 10yrs. F/U recommended: Not Applicable Ramiro Romero MD July 27, 2019 08:52
[2019-07-27] MEDS: Tamsulosin 0.4mg cap ORAL SCH (09:00)
[2019-07-27] MEDS: Lisinopril 10mg tab GT SCH (09:00)
[2019-07-27] MEDS: Lactulose 20gm/30ml UDC GT SCH ×2 (09:00→13:00)
[2019-07-27] MEDS: Doxazosin 1mg Tab ORAL SCH (09:00)
--- NOTE | 2019-07-27 10:11 | Immediate Post-Op Evaluation ---
Immediate Post-Op Evalulation Immediate Post-Op Evalulation Procedure: egd/colonoscopy w/bx Date of Evaluation: July 27, 2019 Time of Evaluation: 09:12 IV Fluids: 50ml 0.9ns Blood Products: none Estimated Blood Loss: negligible Blood Pressure Systolic: 103 Blood Pressure Diastolic: 59 Pulse Rate: 74 Respiratory Rate: 18 O2 Sat by Pulse Oximetry: 100 Temperature (Fahrenheit): 97.7 Pain Score (1-10): 0 Nausea: No Vomiting: No Complications none Patient Status: awake, reacts, patent Hydration Status: adequate Drug: Patricia Strickland MD July 27, 2019 10:11
--- NOTE | 2019-07-27 10:12 | 48 Hour Post Anesthesia Eval ---
Post Anesthesia Evaluation Procedure: egd/colonoscopy w/bx Date of Evaluation: July 27, 2019 Time of Evaluation: 09:14 Blood Pressure Systolic: 121 0: 62 Pulse Rate: 73 Respiratory Rate: 18 Temperature (Fahrenheit): 97.7 O2 Sat by Pulse Oximetry: 100 Airway: patent Nausea: No Vomiting: No Pain Intensity: 0 Hydration Status: adequate Cardiopulmonary Status: stable Mental Status/LOC: patient returned to baseline Post-Anesthesia Complications: none Follow-up care needed: N/A Patricia Goldman MD July 27, 2019 10:12
--- NOTE | 2019-07-27 10:30 | NUR ---
NURSE NOTES: Received patient from GI Lab.Patient opens eyes when touched,respirations unlabored.condom catheter in place with clear yellow urine noted.IV in place.HOB is elevated,will restart G-tube feedings.Bed alarm on.
[2019-07-27] MEDS: Pantoprazole Inj IV SCH (11:08)
[2019-07-27] MEDS: Thiamine 100mg tab GT SCH (11:08)
[2019-07-27] MEDS ORDERED: ZESTRIL10 M1 GT (11:11)
[2019-07-27] MEDS ORDERED: CARDURA1 MG ORAL (11:11)
[2019-07-27] MEDS: Ascorbic Acid 500mg tab GT SCH (11:11)
--- NOTE | 2019-07-27 11:18 | Discharge Summary ---
Discharge Summary Hospital Course Date of Admission July 17, 2019 at 12:44 Date of Discharge Admitting Diagnosis GI bleed HPI Cliff Saldana is a 73 year old male who was admitted on July 17, 2019 at 12 :44 for Gastrointestinal Bleeding Hospital Course 73-year-old male with PMH of advanced dementia (bedbound, nonverbal, PEG dependent at baseline), dysphasia s/p PEG tube, COPD, HTN, depression, PVCs, GERD, functional quadriplegia, adult failure to thrive, sacral ulcer who presents from rehab facility for hematemesis. On admission pt was noted to have temperature of 100.9 rectally, rhonchorous cough. CXR performed which showed RLL infiltrate. COVID negative x2, patient with sepsis secondary to aspiration pneumonia/H CAP. Patient noted with MRSA bacteremia, repeat blood cultures were negative. 2D echo was negative for vegetations and cardio consulted who stated no CLAUDIO at this time. ID consulted, patient was given ABX, stated patient to have 14 days total of vancomycin and then transitioned to p.o. doxy for 2 weeks after IV course. Patient underwent EGD/colonoscopy on 07/26 which were negative for any acute sources of bleeding, 3 polyps were found. For GI, patient was stable for DC. Of note, patient had been hospitalized with a roommate that was found to be positive for TB, patient w/ no cough, hypoxemia, CXR was negative, T spot was tested. Discussed with ID, patient is stable to return to senior living with outpatient repeat of T spot in 1 month, no need for isolation at this time. Blood pressure was elevated throughout hospital course , patient was continued on home amlodipine 5 mg and lisinopril 10 was added to his regimen. She with history of BPH, patient's home finasteride was DC'd due to inability to place medication through PEG tube, continue home tamsulosin. Pt to be d/c back to SNF in stable condition, pt to cont vanc day #01/27, transition to PO doxy for 2 weeks once finished vanco IV course. d/c diagnosis #Sepsis 2/2 #Aspiration PNA/HCAP #MRSA Bacteremia #TB exposure #Positive Occult Stool #Hematemesis #Transaminitis - resolved #HTN #BPH #Dementia/FTT/Functional Quadriplegia, PEG tube dependent #Depression #Anemia of chronic disease- stable #Decubitus Ulcers/Diffuse Pressure wounds d/c planning >30 mins Discharge Medications New Medications: Doxazosin Mesylate* (Cardura*) 1 Mg Tablet 1 MG ORAL DAILY for 30 Days, #30 TAB 3 Refills Lisinopril* (Zestril*) 10 Mg Tablet 10 MG GT DAILY for 30 Days, #30 TAB 3 Refills Continued Medications: Acetaminophen* (Acetaminophen 325MG Tablet*) 325 Mg Tablet 650 MG GT Q6H PRN for Mild Pain/Temp > 100.5, TAB Amino Acids/Protein Hydrolys (Pro-Stat Liquid) 30 Ml Liquid.pkt 30 ML GT DAILY for WOUND HEALING , ML Amlodipine Besylate* (Amlodipine Besylate*) 5 Mg Tablet 5 MG GT DAILY for HTN Ascorbic Acid* (Vitamin C*) 500 Mg Tablet 500 MG GT MORNING for WOUND HEALING STOP DATE: 08/03/19 Chlorpromazine (Chlorpromazine HCl) 25 Mg Tablet 25 MG GT EVERY 8 HOURS PRN for HICCUPS, TAB Cran/Vitc/Mannose/Inulin/Brom (Uti-Stat Liquid) 3,875 Mg/30 Ml Liquid 30 ML GT DAILY for SUPPLEMENT Cyanocobalamin (Vitamin B-12) (Vitamin B-12) 1,000 Mcg Tablet 1000 MCG GT DAILY for SUPPLEMENT, TAB Ergocalciferol (Vitamin D2)* (Vitamin D*) 50,000 Unit Capsule 54435 UNIT GT ONCE A WEEK for SUPPLEMENT , CAP TAKE 50,000 UNITS VIA G-TUBE EVERY THURSDAY Heparin Sod (Porcine) (Heparin Sodium*) 5 000/1 Ml Vial 5000 UNITS SUBQ EVERY 12 HOURS for DVT PPX Hydralazine Hcl* (Hydralazine Hcl*) 25 Mg Tablet 25 MG GT EVERY 6 HOURS PRN for SBP > 160 RELATED TO HTN HEART DZ W/O HEART FAILURE Ipratropium/Albuterol Sulfate (Iprat-Albut 0.5-3(2.5) Mg/3 Ml) 3 Ml Ampul.neb 3 ML IH Q6HR PRN for Shortness of Breath, EA PRN DYSPNEA Multivitamin With Minerals (Multivitamins With Minerals*) 1 Each Tablet 1 TAB GT MORNING for WOUND HEALING X 30D STOP DATE: 08/03/19 Ondansetron* (Zofran*) 4 Mg Tablet 4 MG GT Q6H PRN for Nausea & Vomiting, TAB Pantoprazole Sodium (Protonix) 20 Mg Tablet.dr 20 MG GT MORNING PRN for GI PPX Potassium Chloride (K-Tab ER) 20 Meq Tablet.er 20 MEQ GT DAILY for HYPOKALEMIA, TAB Tamsulosin HCl (Flomax) 0.4 Mg Cap.er.24h 0.4 MG GT DAILY for BPH, CAP Thiamine Hcl* (Vitamin B-1*) 100 Mg Tablet 100 MG GT DAILY for SUPPLEMENT Tramadol Hcl* (Ultram*) 50 Mg Tablet 50 MG GT Q24HR PRN for MOD-SEVERE PAIN (4-10) Zinc Sulfate (Zinc Sulfate*) 220 Mg Capsule 220 MG GT DAILY for WOUND HEALING X 30D STOP DATE: 08/03/19 Discontinued Medications: Finasteride* (Proscar*) 5 Mg Tablet 5 MG GT DAILY for BPH Discharge Condition Upon Discharge: stable Discharge Vital Signs Last Vital Signs Date Time Temp Pulse Resp B/P (MAP) Pulse Ox O2 Delivery O2 Flow Rate FiO2 07/27/19 10:12 73 18 100 07/27/19 09:55 97.8 120/68 Nasal Cannula 3 Discharge Disposition Patient was discharged to [facility] Russell Yee M.D. July 27, 2019 11:18
--- NOTE | 2019-07-27 12:25 | NUR ---
DISCHARGE PLANNED: PATIENT ACCEPTED BACK TO [facility] T:[phone]~~ FOR NURSE TO NURSE REPORT ROOM 39B SKILLED [facility] PICKUP TIME @230PM (KIARA T: [phone]) CALLED AND INFORMED OF DISCHARGE
--- NOTE | 2019-07-27 13:39 | Cardiac Electrophysiology PN ---
Assessment/Plan Assessment/Plan 1. Hypertension. Continue amlodipine 5 mg daily, lisinopril 10 mg daily and p.r.n. hydralazine 25 GT q 6 2. Sepsis. On Abx by by ID. 3. Upper GI bleed. No active bleed. S/P EGD and colonoscopy by Dr. Romero today 4. Lactic acidosis, that has resolved. 5. Aspiration pneumonia, on antibiotic. 6. COVID PCR negative x2 7. Transaminitis. 8. Advanced dementia. 9. Functional quadriplegia. 10. Dysphagia, s/P PEG placement. 11. Sacral wound. 12. Right foot ulcer. DC back to [facility] today Subjective Subjective Nonverbal in SR. Negative Covid x2. S/P EGD and colonoscopy and removal of 3 polyps today. Objective Last 24 Hour Vital Signs Date Time Temp Pulse Resp B/P (MAP) Pulse Ox O2 Delivery O2 Flow Rate FiO2 07/27/19 10:30 Nasal Cannula 2.0 07/27/19 10:12 73 18 100 07/27/19 10:11 74 18 100 07/27/19 09:55 97.8 81 18 120/68 100 Nasal Cannula 3 07/27/19 09:45 82 12 118/62 100 Nasal Cannula 3 07/27/19 09:30 77 14 117/71 100 Nasal Cannula 3 07/27/19 09:20 74 14 120/68 100 Nasal Cannula 3 07/27/19 09:10 73 13 121/62 100 Nasal Cannula 3 07/27/19 09:05 70 17 106/48 100 Nasal Cannula 3 07/27/19 09:00 99/55 07/27/19 09:00 72 99/59 07/27/19 09:00 97.7 71 17 103/54 100 Nasal Cannula 3 07/27/19 08:00 98.6 86 20 120/68 (85) 100 07/27/19 04:00 97.9 81 22 135/71 (92) 100 07/27/19 00:00 98.1 84 24 126/85 (99) 97 07/26/19 21:00 Nasal Cannula 2.0 07/26/19 20:33 98.1 87 24 144/73 (96) 100 07/26/19 16:00 97.7 76 19 131/82 (98) 100 Intake and Output 07/26/19 07/27/19 19:00 07:00 Intake Total 1042 ml 2935.000 ml Output Total 500 ml 600 ml Balance 542 ml 2335.000 ml IV Total 682 ml 935.000 ml Tube Feeding 360 ml Other 2000 ml Output Urine Total 500 ml 600 ml # Voids 3 # Bowel Movements 5 Laboratory Tests Test 07/27/19 05:10 White Blood Count 7.6 K/UL (4.8-10.8) Red Blood Count 2.62 M/UL (4.70-6.10) L Hemoglobin 8.2 G/DL (14.2-18.0) L Hematocrit 23.8 % (42.0-52.0) L Mean Corpuscular Volume 91 FL (80-99) Mean Corpuscular Hemoglobin 31.2 PG (27.0-31.0) H Mean Corpuscular Hemoglobin Concent 34.4 G/DL (32.0-36.0) Red Cell Distribution Width 14.3 % (11.6-14.8) Platelet Count 328 K/UL (150-450) Mean Platelet Volume 5.5 FL (6.5-10.1) L Neutrophils (%) (Auto) 52.4 % (45.0-75.0) Lymphocytes (%) (Auto) 32.1 % (20.0-45.0) Monocytes (%) (Auto) 9.3 % (1.0-10.0) Eosinophils (%) (Auto) 4.5 % (0.0-3.0) H Basophils (%) (Auto) 1.6 % (0.0-2.0) Sodium Level 142 MMOL/L (136-145) Potassium Level 3.7 MMOL/L (3.5-5.1) Chloride Level 105 MMOL/L (98-107) Carbon Dioxide Level 27 MMOL/L (21-32) Anion Gap 10 mmol/L (5-15) Blood Urea Nitrogen 8 mg/dL (7-18) Creatinine 0.6 MG/DL (0.55-1.30) Estimat Glomerular Filtration Rate > 60 mL/min (>60) Glucose Level 97 MG/DL (74-106) Calcium Level 9.3 MG/DL (8.5-10.1) Microbiology Date/Time Source Procedure Growth Status 07/25/19 01:45 Urine,Clean Catch Urine Culture - Preliminary Gram Negative Bacillus 1 Gram Positive Cocci Resulted Objective NECK: No JVD. LUNGS: Coarse rhonchi. CARDIOVASCULAR: Regular S1 and S2 with no gallop. ABDOMEN: Soft, status post G-tube. EXTREMITIES: No pitting edema. Ismael Christine MD July 27, 2019 13:39
--- NOTE | 2019-07-27 15:10 | NUR ---
CHARGE NURSE NOTE: Received result from [facility] - T-SPOT -borderline. Pt will be discharged to SNF, and were notified about result. Both of them said OK to discharge patient, no isolation needed.
--- NOTE | 2019-07-27 15:28 | NUR ---
NURSE NOTES: Patient discharge to [facility] ambulance personnel to transport patient.IV removed,ID hospital band removed.patient has no personal belongings.Patient G-tube water 100 cc flushed for patency.Report was given to Zak CURRY at [facility]. Addendum: 07/27/19 at 1534 by TAQUERIA ROBLEDO RN RN Patient family Virgil Jesu aware of patient discharge.
--- NOTE | 2019-07-27 17:30 | Procedure Note ---
DATE OF PROCEDURE: 07/27/2019 SURGEON: Ramiro Romero MD. PROCEDURE: Upper endoscopy with biopsy and colonoscopy with biopsy, snare polypectomy. ANESTHESIA: Per Dr. Marquez. INSTRUMENT: Olympus adult flexible upper endoscope and colonoscope. INDICATION: GI bleeding. REASON FOR PROCEDURE: The procedure, risks, benefits, and possible consequences, including hemorrhage, aspiration, perforation and infection, and alternative treatments, were explained to the patient/legal guardian by Dr. Ramiro Romero and the patient/legal guardian understood and accepted these risks. DESCRIPTION OF PROCEDURE: After informed consent was obtained and the patient was adequately sedated, Olympus upper endoscope was advanced from mouth into the second portion of the duodenum and retroflexion was performed in the stomach. GE junction was found to be about 37 centimeter from the incisors. There was irregularity at the Z-line suggestive of mild esophagitis. In the stomach, there was diffuse gastritis. Random biopsy from antrum was obtained to rule out H. pylori infection. Patient had a G-tube balloon type in place without any matty G-tube edema or ulceration. At this time, the upper endoscope was retrieved and patient was turned over for colonoscopy. First, rectal exam was performed, which was positive for internal hemorrhoids. Then the scope was advanced from rectum into the cecum documented by appendix orifice, ileocecal valve, and right upper quadrant palpation. Quality of prep overall was good. Patient had 1 pedunculated polyp in the sigmoid colon measured roughly about 1 cm, removed with hot snare polypectomy technique. There was another polyp in the transverse colon, measured roughly about 5 mm, removed with hot snare polypectomy technique, which actually was lost to trap. Patient had another polyp in the transverse colon, measured roughly about 4 mm, removed with the cold biopsy forceps technique. There was an area of ulceration in the descending colon, very minimal, maybe about 1 cm, nonspecific. Biopsy from this area was also obtained. Retroflexion in the rectum was performed, which showed evidence of internal hemorrhoids. SUMMARY OF FINDINGS: 1. Minimum esophagitis. 2. Gastritis, status post biopsy. 3. G-tube in place without any matty G-tube ulceration. 4. Internal hemorrhoids. 5. Three colonic polyps removed. See above for details. 6. A small area of ulceration, nonspecific, status post biopsy in the descending colon. 7. Internal hemorrhoids. RECOMMENDATIONS: 1. Follow up biopsy results and treat accordingly. 2. Resume G-tube feeding. 3. Okay to discharge from GI standpoint. 4. Patient will need a repeat colonoscopy in 3 years given 3 polyps. I want to thank, Dr. Hyatt and for this kind referral. Ramiro Romero M.D. DR: RAFAEL JOB#: [id number] CC: Darion Hyatt M.D.; Fax#: [phone]
== END 2019-07-27 15:40 | DRG 871 ==
LOC: EDBD 08:41 → EMR 08:59 → EDBEDREQ 09:19 → 2E 12:44 → 4E 07-22 22:58
PROC: 0DBM8ZX Excision of Descending Colon, Via Natural or Artificial Opening Endoscopic, Diagnostic (ICD-10-PCS; principal; 2019-07-27 08:26)
PROC: 0DB78ZX Excision of Stomach, Pylorus, Via Natural or Artificial Opening Endoscopic, Diagnostic (ICD-10-PCS; principal; 2019-07-27 08:26)
PROC: 0DBN8ZZ Excision of Sigmoid Colon, Via Natural or Artificial Opening Endoscopic (ICD-10-PCS; principal; 2019-07-27 08:26)
PROC: 0DBL8ZZ Excision of Transverse Colon, Via Natural or Artificial Opening Endoscopic (ICD-10-PCS; principal; 2019-07-27 08:26)
DX: A41.9 Sepsis, unspecified organism (principal); E43 Unspecified severe protein-calorie malnutrition; J69.0 Pneumonitis due to inhalation of food and vomit; R53.2 Functional quadriplegia; K29.71 Gastritis, unspecified, with bleeding; N39.0 Urinary tract infection, site not specified; Z43.1 Encounter for attention to gastrostomy; Z68.20 Body mass index [BMI] 20.0-20.9, adult; R74.0 Nonspecific elevation of levels of transaminase and lactic acid dehydrogenase [LDH]; Z20.1 Contact with and (suspected) exposure to tuberculosis; I10 Essential (primary) hypertension; N40.0 Benign prostatic hyperplasia without lower urinary tract symptoms; F03.90 Unspecified dementia, unspecified severity, without behavioral disturbance, psychotic disturbance, mood disturbance, and anxiety; D63.8 Anemia in other chronic diseases classified elsewhere; F32.9 Major depressive disorder, single episode, unspecified; R13.10 Dysphagia, unspecified; L89.890 Pressure ulcer of other site, unstageable; L89.156 Pressure-induced deep tissue damage of sacral region; R62.7 Adult failure to thrive; K20.9 Esophagitis, unspecified; K29.70 Gastritis, unspecified, without bleeding; K64.8 Other hemorrhoids; K63.5 Polyp of colon; K44.9 Diaphragmatic hernia without obstruction or gangrene; I49.3 Ventricular premature depolarization
CPT/HCPCS: 36415; 71045; 74018; 80048; 80053; 80202; 81003; 82270; 82550; 83605; 83690; 83735; 84100; 84484; 85007; 85025; 85610; 85730; 86703; 86850; 86900; 86901; 87040; 87081; 87086; 87181; 87635; 93005; 93306; 94003; 94150; 96365; 96368; 99291; J7030; J8499

== ENCOUNTER → 2019-10-20 | Outpatient (CLI) | payer MEDICARE, OTHER ==
[~2019-10-20] MED LIST changes: +AMLODIPINE BESYL5 MG GT; +CARDURA1 MG ORAL; +HEPARIN SO5000 UNIT2 SUBQ; +MULTIVITAMIN GT; +MULTIVITAMINS1 EAC8 GT; +PROTONIX20 MG GT; +UTI-STAT L3875 MG/31 GT; +VITAMIN C500 M1 GT; +ZESTRIL10 M1 GT; +ZINC SULFATE220 M1 GT; +ZINC50 MG GT; +[UNRECOGNIZED DRUG - OTHER] GT
== END | disposition home or self-care (01) ==
LOC: MRI 14:12
DX: Z53.9 Procedure and treatment not carried out, unspecified reason (principal)

== ENCOUNTER 2019-12-17 22:01 | Inpatient (IN) | payer MEDICARE, OTHER ==
[~2019-12-17] VITALS: Ht 162.6 cm; Wt 50.4 kg
[~2019-12-17 22:01] MED LIST changes: +CEFEPIME-D2 GM/50 ML IVPB; +CULTURELLE1 EACH GT; +DOXAZOSIN MESYLA1 MG GT; +IBUPROFEN600 M1 GT; +ISONIAZID300 MG GT; +NORVASC5 MG GT; +PANTOPRAZOLE SO40 MG GT; +POTASSIUM CHLO20 ME2 GT; +PYRIDOXINE HCL50 MG GT; +RIFADIN150 MG GT; +RIFAMPIN300 MG GT; +VITAMIN B-12100 MC1 GT; +[UNRECOGNIZED DRUG - OTHER] GT
[2019-12-17 22:06] VITALS: BP 114/67
[2019-12-17] MEDS ORDERED: Acetaminophen 650 MG SUPP RECTAL ONE (22:30)
[2019-12-17 22:59] LABS: HEMATOCRIT 33.3 % (42.0-52.0); HEMOGLOBIN 10.7 G/DL (14.2-18.0); MEAN CORPUSCULAR VOLUME 98 FL (80-99); PLATELET COUNT 243 K/UL (150-450); RED BLOOD COUNT 3.39 M/UL (4.70-6.10); RED CELL DISTRIBUTION WIDTH 14.9 % (11.6-14.8); WHITE BLOOD COUNT 13.6 K/UL (4.8-10.8)
[2019-12-17 23:00] VITALS: BP 80/48
--- NOTE | 2019-12-17 23:00 | NUR ---
ED Nurse Note: Patient current duggan catheter visibly filled with bacterial cultures and not draining well. Upon, DC, urine discharged from patient, signalling that duggan catheter was not patent. New Duggan placed, and patent. Urine specimen collected. Perineal care performed and bowel movement cleaned and replaced with clean diaper. Will continue to monitor for impending orders.
[2019-12-17 23:11] LABS: CALCIUM 9.4 MG/DL (8.5-10.1); CREATININE 1.7 MG/DL (0.55-1.30); POTASSIUM 4.1 MMOL/L (3.5-5.1)
--- NOTE | 2019-12-17 23:12 | Diagnostic Imaging Report ---
EXAM: XR Chest, 1 View CLINICAL HISTORY: SOB TECHNIQUE: Frontal view of the chest. COMPARISON: Chest radiograph dated 11/19/2019. FINDINGS: Lungs: Course interstitial lung markings are demonstrated bilaterally. Pleural space: Unremarkable. No pneumothorax. Heart: Unremarkable. No cardiomegaly. Mediastinum: Unremarkable. Bones/joints: Unremarkable. IMPRESSION: Chronic interstitial disease without acute cardial pulmonary disease.
[2019-12-17 23:25] LABS: INR 1.2 (0.9-1.1)
[2019-12-17 23:27] LABS: ALBUMIN 3.3 G/DL (3.4-5.0); ALBUMIN/GLOBULIN RATIO 0.6 (1.0-2.7); BILIRUBIN,TOTAL 0.5 MG/DL (0.2-1.0); CKMB 0.7 NG/ML (0.0-3.6)
--- NOTE | 2019-12-17 23:30 | NUR ---
ED Nurse Note: Patient titrated down from 15L on non rebreather to 10L on nonrebrether. Patient tolerated well as O2 saturation remained at 100%. Patient titrated down to 4L via nasal canula, patient satting at 100%. Patient's BP noted as hypotensive, ERMD informed of status. Line at right loyd adjusted for patency as line was started in the field. Will continue to monitor.
[2019-12-17] MEDS ORDERED: Piperacillin/Tazobactam 3.375 GM in NS 110 ML IVPB ONE (23:45)
--- NOTE | 2019-12-17 23:57 | Emergency Room Report ---
History of Present Illness General Chief Complaint: Dyspnea/Respdistress Source: Medical Record, EMS Present Illness HPI 74-year-old male presents for shortness of breath. Brought in by EMS from SNF. Noted by nursing staff today to be low O2 sats. Fever. Patient nonverbal at baseline. Unable to provide any additional history at this time. O2 sats low improved on nonrebreather. Tachycardic. No signs of distress. No other aggravating relieving factors no other associated symptoms Allergies: Coded Allergies: No Known Allergies (Unverified , 08/20/18) COVID-19 Screening Contact w/high risk pt: Yes Recent Travel to affected area: No Experienced COVID-19 symptoms?: Yes COVID-19 symptoms experienced: Fever (T>100.4F or >38C), Cough COVID-19 Testing performed STRAW BALER: No Patient History Past Medical History: HTN, COPD, CVA/TIA, dementia Past Surgical History: none Pertinent Family History: none Social History: Denies: smoking, alcohol use, drug use Immunizations: UTD Reviewed Nursing Documentation: PMH: Agreed; PSxH: Agreed Nursing Documentation-PMH Hx Hypertension: Yes Hx COPD: Yes Hx Cancer: No Hx Neurological Problems: Yes Hx Cerebrovascular Accident: Yes Hx Dementia: Yes Hx Memory Loss: Yes Hx Concentration Difficulty: Yes Hx Aphasia: Yes Hx Dysphasia: Yes Hx Weakness: Yes Review of Systems All Other Systems: limited Physical Exam Vital Signs Date Time Temp Pulse Resp B/P (MAP) Pulse Ox O2 Delivery O2 Flow Rate FiO2 12/17/19 22:03 102.0 130 28 114/67 (83) 96 Nasal Cannula 12.0 Sp02 EP Interpretation: reviewed, normal General Appearance: cachetic, thin Head: normocephalic, atraumatic Eyes: bilateral eye normal inspection, bilateral eye PERRL ENT: hearing grossly normal, normal pharynx, no angioedema, normal voice Neck: full range of motion, supple/symm/no masses Respiratory: chest non-tender, crackles, speaking full sentences Cardiovascular #1: no edema, tachycardia Cardiovascular #2: 2+ carotid (R), 2+ carotid (L), 2+ radial (R), 2+ radial (L), 2+ dorsalis pedis (R), 2+ dorsalis pedis (L) Gastrointestinal: normal bowel sounds, non tender, soft, non-distended, no guarding, no rebound Rectal: deferred Genitourinary: normal inspection, no CVA tenderness Musculoskeletal: back normal, other - contracted extremities Neurologic: other - nonverbal Psychiatric: other - nonverbal Reflexes: 3+ bicep (R), 3+ bicep (L), 3+ tricep (R), 3+ tricep (L), 3+ knee (R), 3+ knee (L) Skin: other - see nursing notes Lymphatic: no adenopathy Procedures Critical Care Time Critical Care Time i. I feel this is a highly complex case requiring extensive working including EKG/Rhythm strip, Xray/CT/US, Blood/urine lab work, repeat exams while in ED, and administration of strong opiates/narcotics for pain control, admission to hospital or close patient follow up. Total time: 75 min bedside evaluation and treatment excludes procedures (EKG). Reason for critical care: hypotension, sepsis, UTI Possible complications: hypotension, hypertension, WA, shock, arrhythmias, metabolic acidosis, end organ damage, respiratory failure. Interventions: labs, EKG, CXR, COVID swab, 30cc/kg fluid bolus, antibiotics, I/O, levophed, left IJ central line Course: Patient presenting for shortness of breath, fever, tachycardic from SNF. Febrile. O2 sats improved on nonrebreather. COVID negative. Given Tylenol. Leukocytosis noted. Has UTI. Lactic elevated. X-ray shows chronic changes. Given 30 cc/kg fluid bolus. Given antibiotics. Tachycardia resolved. BP low. Not responding to IV fluids. X-ray initially unavailable. IO placed. Levophed started. Left IJ central line placed. Confirmed on x-ray. BP improved. Consultations: nursing staff, EMS, family Performed by: Dr Chavez Tolerated well condition = critical j. because of unstable vital signs this patient had a condition that could potentially threaten life or limb. I feel this is a critical patient who required my full attention while patient was considered critical. Total Critical Care Time excluding procedures was greater than 75 minutes Central Line Central Line : Consent: Emergent Central Line Lumen: triple Maximal Sterile Barrier Tech: yes cap, yes mask, yes sterile gown, yes sterile gloves, yes large sterile sheet, yes hand hygiene, yes chlorhexidine prep Central Line Postion: internal jugular (L) Anesthesia: Lidocaine US Guided Line?: Yes Vessel visualized with U/S: Left Internal Jugular Ultrasound Findings: Collapsible Vessel, Vessel Patent, Color flow present, Visualize vessel puncture Complications: none Central Line Post Position: sutured, good blood return, position confirmed w/ CXR Attempts: One Patient Tolerated: Well Complications: None Medical Decision Making Diagnostic Impression: Primary Impression: Septic shock Additional Impressions: UTI (urinary tract infection) Qualified Codes: N39.0 - Urinary tract infection, site not specified COPD (chronic obstructive pulmonary disease) Qualified Codes: J44.9 - Chronic obstructive pulmonary disease, unspecified ER Course Hospital Course 74-year-old male presents with fever, tachycardia, hypoxia Differential diagnoses include: Pneumonia, UTI, sepsis, dehydration, WA/unstable angina Clinical course Patient placed on stretcher. in isolation. I wore full PPE. On quality assurance monitor final with tachycardia. After initial history and physical, I ordered labs, IV fluids, EKG, chest x-ray, blood cultures, UA. Labs -noted leukocytosis. Hemoglobin/hematocrit stable, BUN/creatinine elevated. Lactic 2.8. Troponin negative. COVID negative EKG -sinus tachycardia no acute ischemic changes interpreted by me UA grossly positive for UTI CXR -interstitial changes Abx given. 30 cc/kg fluid bolus. Patient remains hypotensive. Tachycardia resolved. Initially x-ray unavailable. Patient extremely contracted with limited central line accesses. Placed IO and started levophed. ultimately I placed left IJ central line. Confirmed on chest x-ray. BP improved with levo fed. Continued IV fluids. case discussed with Dr Gambino and they agreed to admit patient to their service for further care and support I feel this is a highly complex case requiring extensive working including EKG/Rhythm strip, Xray/CT/US, Blood/urine lab work, repeat exams while in ED, and administration of strong opiates/narcotics for pain control, admission to hospital or close patient follow up. Diagnosis - UTI, septic shock, copd Patient admitted to ICU in critical condition Laboratory Tests Test 12/17/19 22:28 12/17/19 23:38 White Blood Count 13.6 K/UL (4.8-10.8) H Red Blood Count 3.39 M/UL (4.70-6.10) L Hemoglobin 10.7 G/DL (14.2-18.0) L Hematocrit 33.3 % (42.0-52.0) L Mean Corpuscular Volume 98 FL (80-99) Mean Corpuscular Hemoglobin 31.6 PG (27.0-31.0) H Mean Corpuscular Hemoglobin Concent 32.2 G/DL (32.0-36.0) Red Cell Distribution Width 14.9 % (11.6-14.8) H Platelet Count 243 K/UL (150-450) Mean Platelet Volume 7.4 FL (6.5-10.1) Neutrophils (%) (Auto) % (45.0-75.0) Lymphocytes (%) (Auto) % (20.0-45.0) Monocytes (%) (Auto) % (1.0-10.0) Eosinophils (%) (Auto) % (0.0-3.0) Basophils (%) (Auto) % (0.0-2.0) Differential Total Cells Counted 100 Neutrophils % (Manual) 64 % (45-75) Lymphocytes % (Manual) 35 % (20-45) Monocytes % (Manual) 1 % (1-10) Eosinophils % (Manual) 0 % (0-3) Basophils % (Manual) 0 % (0-2) Band Neutrophils 0 % (0-8) Platelet Estimate Adequate Platelet Morphology Normal Prothrombin Time 12.7 SEC (9.30-11.50) H Prothromb Time International Ratio 1.2 (0.9-1.1) H Activated Partial Thromboplast Time 24 SEC (23-33) D-Dimer 18.87 mg/L FEU (0.00-0.49) H Sodium Level 139 MMOL/L (136-145) Potassium Level 4.1 MMOL/L (3.5-5.1) Chloride Level 105 MMOL/L (98-107) Carbon Dioxide Level 25 MMOL/L (21-32) Anion Gap 10 mmol/L (5-15) Blood Urea Nitrogen 53 mg/dL (7-18) H Creatinine 1.7 MG/DL (0.55-1.30) H Estimat Glomerular Filtration Rate 39.6 mL/min (>60) Glucose Level 115 MG/DL (74-106) H Lactic Acid Level 2.80 mmol/L (0.4-2.0) H Calcium Level 9.4 MG/DL (8.5-10.1) Ferritin 569 NG/ML (8-388) H Total Bilirubin 0.5 MG/DL (0.2-1.0) Aspartate Amino Transf (AST/SGOT) 28 U/L (15-37) Alanine Aminotransferase (ALT/SGPT) 27 U/L (12-78) Alkaline Phosphatase 103 U/L (46-116) Lactate Dehydrogenase 203 U/L (81-234) Total Creatine Kinase 83 U/L (26-308) Creatine Kinase MB 0.7 NG/ML (0.0-3.6) Creatine Kinase MB Relative Index 0.8 Troponin I 0.026 ng/mL (0.000-0.056) C-Reactive Protein, Quantitative 4.2 mg/dL (0.00-0.90) H Pro-B-Type Natriuretic Peptide 780 pg/mL (0-125) H Total Protein 8.5 G/DL (6.4-8.2) H Albumin 3.3 G/DL (3.4-5.0) L Globulin 5.2 g/dL Albumin/Globulin Ratio 0.6 (1.0-2.7) L Lipase 86 U/L (73-393) Urine Color Pale yellow Urine Appearance Cloudy Urine pH 9 (4.5-8.0) Urine Specific [place] 1.010 (1.005-1.035) Urine Protein 2+ (NEGATIVE) H Urine Glucose (UA) Negative (NEGATIVE) Urine Ketones Negative (NEGATIVE) Urine Blood 5+ (NEGATIVE) H Urine Nitrite Positive (NEGATIVE) H Urine Bilirubin Negative (NEGATIVE) Urine Urobilinogen Normal MG/DL (0.0-1.0) Urine Leukocyte Esterase 3+ (NEGATIVE) H Urine RBC 60-80 /HPF (0 - 0) H Urine WBC 5-10 /HPF (0 - 0) H Urine Squamous Epithelial Cells Occasional /LPF Urine Bacteria Many /HPF (NONE) H EKG Diagnostic Results Rate: tachycardiac Rhythm: NSR ST Segments: no acute changes ASA given to the pt in ED: No Rhythm Strip Diag. Results EP Interpretation: yes Rhythm: NSR, no PVC's, no ectopy Chest X-Ray Diagnostic Results Chest X-Ray Diagnostic Results : Chest X-Ray Ordered: Yes # of Views/Limited/Complete: 1 View Indication: Shortness of Breath EP Interpretation: Yes Interpretation: no consolidation, no effusion, no pneumothorax, no acute cardiopulmonary disease Impression: No acute disease Electronically Signed by: Electronically signed by El Chavez MD internal Last Vital Signs Date Time Temp Pulse Resp B/P (MAP) Pulse Ox O2 Delivery O2 Flow Rate FiO2 12/17/19 22:03 102.0 130 28 114/67 (83) 96 Nasal Cannula 12.0 Status: improved Disposition: ADMITTED INPATIENT Condition: Critical Referrals: Darion Hyatt MD (PCP) El Chavez MD Dec 17, 2019 23:57
[2019-12-18] VITALS (17 sets, daily range): BP systolic 68–116; BP diastolic 50–80
--- NOTE | 2019-12-18 | NUR ---
ED Nurse Note: Despite IV fluids, patient blood pressure continues to decline. ERMd aware.
[2019-12-18 00:19] LABS: APPEARANCE,URINE CLOUDY; BILIRUBIN, URINE NEGATIVE (NEGATIVE); COLOR,URINE PALE YELLOW; GLUCOSE, URINE (UA) NEGATIVE (NEGATIVE); KETONES,URINE NEGATIVE (NEGATIVE); LEUKOCYTE ESTERASE ,URINE 3+ (NEGATIVE); NITRITE,URINE POSITIVE (NEGATIVE); PH,URINE 9 (4.5-8.0); PROTEIN,URINE 2+ (NEGATIVE); UROBILINOGEN,URINE NORMAL MG/DL (0.0-1.0)
--- NOTE | 2019-12-18 00:30 | NUR ---
ED Nurse Note: Additional fluid, Bolus of N/S hung along with round of antibiotic. Patient's blood pressure remains hypotensive.
--- NOTE | 2019-12-18 04:07 | Emergency Room Report ---
Sepsis Event Note Evaluation Possible Source: [facility] Focused Exam Allergies: Coded Allergies: No Known Allergies (Unverified , 08/20/18) Date Exam Occurred: Dec 17, 2019 Time Exam Occurred: 22:30 Laboratory Studies Laboratory Tests Test 12/17/19 22:28 12/17/19 23:38 White Blood Count 13.6 K/UL (4.8-10.8) H Red Blood Count 3.39 M/UL (4.70-6.10) L Hemoglobin 10.7 G/DL (14.2-18.0) L Hematocrit 33.3 % (42.0-52.0) L Mean Corpuscular Volume 98 FL (80-99) Mean Corpuscular Hemoglobin 31.6 PG (27.0-31.0) H Mean Corpuscular Hemoglobin Concent 32.2 G/DL (32.0-36.0) Red Cell Distribution Width 14.9 % (11.6-14.8) H Platelet Count 243 K/UL (150-450) Mean Platelet Volume 7.4 FL (6.5-10.1) Neutrophils (%) (Auto) % (45.0-75.0) Lymphocytes (%) (Auto) % (20.0-45.0) Monocytes (%) (Auto) % (1.0-10.0) Eosinophils (%) (Auto) % (0.0-3.0) Basophils (%) (Auto) % (0.0-2.0) Differential Total Cells Counted 100 Neutrophils % (Manual) 64 % (45-75) Lymphocytes % (Manual) 35 % (20-45) Monocytes % (Manual) 1 % (1-10) Eosinophils % (Manual) 0 % (0-3) Basophils % (Manual) 0 % (0-2) Band Neutrophils 0 % (0-8) Platelet Estimate Adequate Platelet Morphology Normal Prothrombin Time 12.7 SEC (9.30-11.50) H Prothromb Time International Ratio 1.2 (0.9-1.1) H Activated Partial Thromboplast Time 24 SEC (23-33) D-Dimer 18.87 mg/L FEU (0.00-0.49) H Sodium Level 139 MMOL/L (136-145) Potassium Level 4.1 MMOL/L (3.5-5.1) Chloride Level 105 MMOL/L (98-107) Carbon Dioxide Level 25 MMOL/L (21-32) Anion Gap 10 mmol/L (5-15) Blood Urea Nitrogen 53 mg/dL (7-18) H Creatinine 1.7 MG/DL (0.55-1.30) H Estimat Glomerular Filtration Rate 39.6 mL/min (>60) Glucose Level 115 MG/DL (74-106) H Lactic Acid Level 2.80 mmol/L (0.4-2.0) H Calcium Level 9.4 MG/DL (8.5-10.1) Ferritin 569 NG/ML (8-388) H Total Bilirubin 0.5 MG/DL (0.2-1.0) Aspartate Amino Transf (AST/SGOT) 28 U/L (15-37) Alanine Aminotransferase (ALT/SGPT) 27 U/L (12-78) Alkaline Phosphatase 103 U/L (46-116) Lactate Dehydrogenase 203 U/L (81-234) Total Creatine Kinase 83 U/L (26-308) Creatine Kinase MB 0.7 NG/ML (0.0-3.6) Creatine Kinase MB Relative Index 0.8 Troponin I 0.026 ng/mL (0.000-0.056) C-Reactive Protein, Quantitative 4.2 mg/dL (0.00-0.90) H Pro-B-Type Natriuretic Peptide 780 pg/mL (0-125) H Total Protein 8.5 G/DL (6.4-8.2) H Albumin 3.3 G/DL (3.4-5.0) L Globulin 5.2 g/dL Albumin/Globulin Ratio 0.6 (1.0-2.7) L Lipase 86 U/L (73-393) Urine Color Pale yellow Urine Appearance Cloudy Urine pH 9 (4.5-8.0) Urine Specific [place] 1.010 (1.005-1.035) Urine Protein 2+ (NEGATIVE) H Urine Glucose (UA) Negative (NEGATIVE) Urine Ketones Negative (NEGATIVE) Urine Blood 5+ (NEGATIVE) H Urine Nitrite Positive (NEGATIVE) H Urine Bilirubin Negative (NEGATIVE) Urine Urobilinogen Normal MG/DL (0.0-1.0) Urine Leukocyte Esterase 3+ (NEGATIVE) H Urine RBC 60-80 /HPF (0 - 0) H Urine WBC 5-10 /HPF (0 - 0) H Urine Squamous Epithelial Cells Occasional /LPF Urine Bacteria Many /HPF (NONE) H Vital Signs Last 24 Hour Vital Signs Date Time Temp Pulse Resp B/P (MAP) Pulse Ox O2 Delivery O2 Flow Rate FiO2 12/18/19 01:48 75/44 12/18/19 01:43 73/44 12/17/19 23:34 99.4 12/17/19 22:06 102.7 130 28 114/67 100 Non-Rebreather 15.0 12/17/19 22:06 130 28 Nasal Cannula 12.0 12/17/19 22:03 102.0 130 28 114/67 (83) 96 Nasal Cannula 12.0 Respiratory Exam: Crackles Cardiovascular Exam: Tachycardia Capillary Refill: Less Than 2 Seconds Peripheral Pulse: Weak Pulse Location: Femoral Skin Exam: Flushed Bedside Monitoring Date bedside monitoring occur: Dec 18, 2019 Time bedside monitoring occur: 13:00 Bedside Ultrasound Performed: No Passive Leg Raise/Fluid Bolus: Not Fluid Responsive - L IJ central line placed - levophed started El Chavez MD Dec 18, 2019 04:07
[2019-12-18] MEDS ORDERED: Albuterol/Ipratropium 3ml neb HHN ONE (04:15)
--- NOTE | 2019-12-18 05:00 | NUR ---
ED Nurse Note: Consulted with Dr. Figueroa regarding need for new levo order.
--- NOTE | 2019-12-18 05:05 | NUR ---
Dr.Nicolas Figueroa is here attending patient.
[2019-12-18] MEDS ORDERED: Albuterol/Ipratropium 3ml neb HHN PRN (05:45)
--- NOTE | 2019-12-18 05:46 | History and Physical ---
History of Present Illness General Date patient seen: Dec 18, 2019 Time patient seen: 05:00 Reason for Hospitalization: Dyspnea/Respdistress Present Illness HPI 73-year-old male with PMH of advanced dementia (bedbound, nonverbal, PEG dependent at baseline), dysphasia s/p PEG tube, COPD, HTN, depression, PVCs, GERD, functional quadriplegia, adult failure to thrive, sacral ulcer who present s from rehab facility for septic shock Patient admitted for further treatment and evaluation. Patient is known to this hospital. On initial evaluation he has a mild leukocytosis with a lactic acidosis of 2.8. His UA is suspected of a UTI and patient is requiring levaphed to maintain MAP>55. Allergies: Coded Allergies: No Known Allergies (Unverified , 08/20/18) COVID-19 Screening Contact w/high risk pt: Yes Recent Travel to affected area: No Experienced COVID-19 symptoms?: Yes Coronavirus symptoms experienc: Fever (T>100.4F or >38C), Shortness of Breath Medication History Scheduled Amlodipine Besylate* (Amlodipine Besylate*), 5 MG GT DAILY, (Reported) Ascorbic Acid* (Vitamin C*), 500 MG GT DAILY, (Reported) Cefepime Hcl/D5w (Cefepime-Dextrose 2 Gm/50 Ml), 2 GM IVPB Q24H Cran/Vitc/Mannose/Inulin/Brom (Uti-Stat Liquid), 30 ML GT DAILY, (Reported) Cyanocobalamin (Vitamin B-12) (Vitamin B-12), 100 MCG GT DAILY, (Reported) Doxazosin Mesylate* (Doxazosin Mesylate*), 1 MG GT DAILY, (Reported) Ergocalciferol (Vitamin D2)* (Vitamin D*), 50,000 UNIT GT ONCE A WEEK, (Reported) Finasteride* (Proscar*), 5 MG GT DAILY, (Reported) Isoniazid (Isoniazid), 300 MG GT EVERY MORNING Lactobacillus Rhamnosus Gg* (Culturelle*), 1 CAP GT TWICE A DAY, (Reported) Pantoprazole Sodium (Protonix), 40 MG GT TWICE A DAY, (Reported) Potassium Chloride (Potassium Chloride), 20 MEQ GT DAILY, (Reported) Pyridoxine Hcl* (Vitamin B-6*), 50 MG GT DAILY Thiamine Hcl* (Vitamin B-1*), 100 MG GT DAILY, (Reported) Vancomycin In Dextrose,Iso-Osm (Vancomycin 750 Mg/150 Ml Bag), 750 MG IV Q12HR [Iron Vitamin Liquid], 7.5 ML GT DAILY, (Reported) Scheduled PRN Ibuprofen* (Motrin*), 400 MG GT Q6HR PRN for Mild Pain (Pain Scale 1-3), (Reported) Ipratropium/Albuterol Sulfate (Iprat-Albut 0.5-3(2.5) Mg/3 Ml), 3 ML IH Q6HR PRN for Shortness of Breath, (Reported) Ondansetron* (Zofran*), 4 MG GT Q6H PRN for Nausea & Vomiting, (Reported) Tramadol Hcl* (Ultram*), 50 MG GT Q12HR PRN for MOD-SEVERE PAIN (4-10), (Reported) Patient History Healthcare decision maker Resuscitation status Advanced Directive on File Physical Exam General Appearance: no apparent distress, alert, confused Lines, tubes and drains: peripheral, central line HEENT: normocephalic Neck: non-tender Respiratory/Chest: lungs clear Cardiovascular/Chest: normal peripheral pulses, normal rate, regular rhythm Abdomen: normal bowel sounds, soft Extremities: normal range of motion Skin Exam: warm/dry Musculoskeletal: atrophy Last 24 Hour Vital Signs Date Time Temp Pulse Resp B/P (MAP) Pulse Ox O2 Delivery O2 Flow Rate FiO2 12/18/19 05:35 86/53 12/18/19 04:21 84 19 100 Simple Mask 5.0 12/18/19 04:10 91 21 98 Simple Mask 5.0 12/18/19 01:48 75/44 12/18/19 01:43 73/44 12/17/19 23:34 99.4 12/17/19 22:06 102.7 130 28 114/67 100 Non-Rebreather 15.0 12/17/19 22:06 130 28 Nasal Cannula 12.0 12/17/19 22:03 102.0 130 28 114/67 (83) 96 Nasal Cannula 12.0 Intake and Output 12/17/19 12/18/19 19:00 07:00 Intake Total 2000 ml Balance 2000 ml Intake Oral 0 ml IV Total 2000 ml Laboratory Tests Test 12/17/19 22:28 12/17/19 23:38 White Blood Count 13.6 K/UL (4.8-10.8) H Red Blood Count 3.39 M/UL (4.70-6.10) L Hemoglobin 10.7 G/DL (14.2-18.0) L Hematocrit 33.3 % (42.0-52.0) L Mean Corpuscular Volume 98 FL (80-99) Mean Corpuscular Hemoglobin 31.6 PG (27.0-31.0) H Mean Corpuscular Hemoglobin Concent 32.2 G/DL (32.0-36.0) Red Cell Distribution Width 14.9 % (11.6-14.8) H Platelet Count 243 K/UL (150-450) Mean Platelet Volume 7.4 FL (6.5-10.1) Neutrophils (%) (Auto) % (45.0-75.0) Lymphocytes (%) (Auto) % (20.0-45.0) Monocytes (%) (Auto) % (1.0-10.0) Eosinophils (%) (Auto) % (0.0-3.0) Basophils (%) (Auto) % (0.0-2.0) Differential Total Cells Counted 100 Neutrophils % (Manual) 64 % (45-75) Lymphocytes % (Manual) 35 % (20-45) Monocytes % (Manual) 1 % (1-10) Eosinophils % (Manual) 0 % (0-3) Basophils % (Manual) 0 % (0-2) Band Neutrophils 0 % (0-8) Platelet Estimate Adequate Platelet Morphology Normal Prothrombin Time 12.7 SEC (9.30-11.50) H Prothromb Time International Ratio 1.2 (0.9-1.1) H Activated Partial Thromboplast Time 24 SEC (23-33) D-Dimer 18.87 mg/L FEU (0.00-0.49) H Sodium Level 139 MMOL/L (136-145) Potassium Level 4.1 MMOL/L (3.5-5.1) Chloride Level 105 MMOL/L (98-107) Carbon Dioxide Level 25 MMOL/L (21-32) Anion Gap 10 mmol/L (5-15) Blood Urea Nitrogen 53 mg/dL (7-18) H Creatinine 1.7 MG/DL (0.55-1.30) H Estimat Glomerular Filtration Rate 39.6 mL/min (>60) Glucose Level 115 MG/DL (74-106) H Lactic Acid Level 2.80 mmol/L (0.4-2.0) H Calcium Level 9.4 MG/DL (8.5-10.1) Ferritin 569 NG/ML (8-388) H Total Bilirubin 0.5 MG/DL (0.2-1.0) Aspartate Amino Transf (AST/SGOT) 28 U/L (15-37) Alanine Aminotransferase (ALT/SGPT) 27 U/L (12-78) Alkaline Phosphatase 103 U/L (46-116) Lactate Dehydrogenase 203 U/L (81-234) Total Creatine Kinase 83 U/L (26-308) Creatine Kinase MB 0.7 NG/ML (0.0-3.6) Creatine Kinase MB Relative Index 0.8 Troponin I 0.026 ng/mL (0.000-0.056) C-Reactive Protein, Quantitative 4.2 mg/dL (0.00-0.90) H Pro-B-Type Natriuretic Peptide 780 pg/mL (0-125) H Total Protein 8.5 G/DL (6.4-8.2) H Albumin 3.3 G/DL (3.4-5.0) L Globulin 5.2 g/dL Albumin/Globulin Ratio 0.6 (1.0-2.7) L Lipase 86 U/L (73-393) Urine Color Pale yellow Urine Appearance Cloudy Urine pH 9 (4.5-8.0) Urine Specific [place] 1.010 (1.005-1.035) Urine Protein 2+ (NEGATIVE) H Urine Glucose (UA) Negative (NEGATIVE) Urine Ketones Negative (NEGATIVE) Urine Blood 5+ (NEGATIVE) H Urine Nitrite Positive (NEGATIVE) H Urine Bilirubin Negative (NEGATIVE) Urine Urobilinogen Normal MG/DL (0.0-1.0) Urine Leukocyte Esterase 3+ (NEGATIVE) H Urine RBC 60-80 /HPF (0 - 0) H Urine WBC 5-10 /HPF (0 - 0) H Urine Squamous Epithelial Cells Occasional /LPF Urine Bacteria Many /HPF (NONE) H Microbiology Date/Time Source Procedure Growth Status 12/17/19 23:30 Nasopharynx SARS-CoV-2 RdRp Gene Assay - Final Complete Height (Feet): 5 Height (Inches): 4.00 Weight (Pounds): 140 Medications Current Medications Medications (Trade) Dose Ordered Sig/Altagracia Route PRN Reason Start Time Stop Time Status Last Admin Dose Admin Acetaminophen (Tylenol) 650 mg Q4H PRN ORAL Fever 12/18/19 05:15 01/17/20 05:14 Dextrose (Dextrose 50%) 25 ml Q30M PRN IV Hypoglycemia 12/18/19 05:15 03/17/20 05:14 Dextrose (Dextrose 50%) 50 ml Q30M PRN IV Hypoglycemia 12/18/19 05:15 03/17/20 05:14 Heparin Sodium (Porcine) (Heparin 5000 units/ml) 5,000 units EVERY 12 HOURS SUBQ 12/18/19 09:00 02/01/20 08:59 Insulin Aspart (NovoLOG) BEFORE MEALS AND HS SUBQ 12/18/19 06:30 03/17/20 06:29 Magnesium Sulfate 4000 mg/Dextrose 258 ml @ 62.5 mls/ min ONCE ONCE IV 12/18/19 05:15 12/18/19 05:19 UNV Norepinephrine Bitartrate 4 mg/ Dextrose 250 ml @ 0 mls/hr Q24H IV 12/18/19 05:15 12/21/19 05:14 12/18/19 05:35 Ondansetron HCl (Zofran) 4 mg Q6H PRN IVP Nausea & Vomiting 12/18/19 05:15 01/17/20 05:14 Piperacillin Sod/ Tazobactam Sod 3.375 gm/Sodium Chloride 110 ml @ 27.5 mls/hr EVERY 8 HOURS IVPB 12/18/19 06:00 12/23/19 05:59 UNV Potassium Chloride 100 ml @ 100 mls/hr EVERY HOUR IV 12/18/19 06:00 12/18/19 09:59 UNV Sodium Chloride 1,000 ml @ 100 mls/hr Q10H IVLG 12/18/19 06:00 01/17/20 05:59 Vancomycin HCl 1 gm/Dextrose 275 ml @ 183.708 mls/hr Q24H IVPB 12/18/19 05:30 12/23/19 05:29 UNV Assessment/Plan Problem List: (1) Septic shock ICD Codes: A41.9 - Sepsis, unspecified organism; R65.21 - Severe sepsis with septic shock SNOMED: [id number] Assessment/Plan: Suspected UTI induced Septic shock Prior hospital was for sacral pressure ucler bacteremia ORDERS - Empiric antibiotics - Continue levophed - Keep MAP>55 - Monitor BC - Follow UC - Continue IVF - Titration to ICU care - Keep NPO #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 This treatment was stopped when patient was inpatient to check for possible active TB. Patient was put in isolation. There were 4 AFBs collected - all 4 of them found to be negative (11/13, 11/14, 11/15, and 11/17). Tspot was positive which is in accordance with latent TB. ID was consulted for further mangagement. Patient was started on INH and Pyridoxine to be continued for total of 9 months. #BPH - Chronic indwelling duggan. Continue proscar. #Dementia/FTT/Functional Quadriplegia, PEG tube dependent #Depression #Anemia of chronic disease- stable #Decubitus Ulcers/Diffuse Pressure wounds -nutrition consulted for tube feeds -Wound care consulted, recs appreciated -surgery consulted DVT PPx: Heparin Ronak Figueroa D.O. Dec 18, 2019 05:46
--- NOTE | 2019-12-18 06:00 | NUR ---
ED Nurse Note: Patient rendered bed bath and provided with fresh micah, and gown. Patient's Central line at left neck dressed with sterile dressing as well. Patient's room cleaned, all previous and completed fluids discarded. Patient is currently stable on max levofed awaiting report to ICU. Will continue to monitor for change of shift.
[2019-12-18] MEDS: NovoLOG Insulin Flexpen SUBQ SCH ×4 (06:30→21:00)
[2019-12-18] MEDS: Piperacillin/Tazobactam 3.375 GM in NS 110 ML IVPB SCH ×2 (06:30→13:37)
--- NOTE | 2019-12-18 07:23 | NUR ---
ED Nurse Note: Attempted to call to render report to for Bed B. Spoke to Patricia CURRY who insisted that they were not ready to receive report at this time.
--- NOTE | 2019-12-18 07:57 | NUR ---
ED Nurse Note: report given to ANTOINETTE Kwan in ICU.
--- NOTE | 2019-12-18 07:57 | NUR ---
ED Nurse Note: Latest BP: 106/63, notified ERMD and DIGITAL CARTOGRAPHIC TECHNICIAN. Levo drip on KVO. Per ERMD, levophed drip may discontinue afterwards.
--- NOTE | 2019-12-18 08:20 | NUR ---
NURSE NOTES: Received patient from ED RN Jesenia. Patient is alert and oriented x0, abnormal flexion to pain. Sinus Rhythm on the heart monitor, HR 78. Receiving oxygen via non-rebreather mask, O2 saturation at 100%. IV site is Left EJ TLC patent and intact, Left lower Leg Intraosseous is patent and intact. G-tube is patent and intact. Inserted Manriquez catheter into patient. Bed is locked, placed in lowest position, side rails up x3, bed alarm on, head of bed elevated.
[2019-12-18] MEDS: Isoniazid 300mg tab GT SCH (09:24)
[2019-12-18] MEDS: Lactobacillus-GG tablet GT SCH ×3 (09:24→18:35)
[2019-12-18] MEDS: Pyridoxine 50mg tab GT SCH (09:24)
[2019-12-18] MEDS: Doxazosin 1mg Tab GT SCH (09:24)
[2019-12-18] MEDS: Heparin 5000 units/ml inj SUBQ SCH ×2 (09:25→22:07)
[2019-12-18 09:58] LABS: HEMATOCRIT 23.7 % (42.0-52.0); MEAN CORPUSCULAR VOLUME 93 FL (80-99); PLATELET COUNT 174 K/UL (150-450); RED BLOOD COUNT 2.54 M/UL (4.70-6.10); RED CELL DISTRIBUTION WIDTH 13.9 % (11.6-14.8)
[2019-12-18] MEDS ORDERED: Vancomycin 1.25gm/NS Premix IVPB ONE (10:00)
[2019-12-18 10:03] LABS: WHITE BLOOD COUNT 22.2 K/UL (4.8-10.8)
[2019-12-18 10:10] LABS: ALBUMIN 2.2 G/DL (3.4-5.0); ANION GAP 9 mmol/L (5-15); BLOOD UREA NITROGEN 32 mg/dL (7-18); CALCIUM 7.7 MG/DL (8.5-10.1); CARBON DIOXIDE 20 MMOL/L (21-32); CHLORIDE 113 MMOL/L (98-107); PHOSPHORUS 2.8 MG/DL (2.5-4.9); SODIUM 142 MMOL/L (136-145)
--- NOTE | 2019-12-18 10:52 | NUR ---
NURSE NOTES: Reported WBC of 22.2 K/UL to Dr. Peña. No new orders received.
--- NOTE | 2019-12-18 11:00 | NUR ---
NURSE NOTES: Patient seen and assessed by Dr. Peña
--- NOTE | 2019-12-18 11:35 | NUR ---
NURSE NOTES: Medications given as prescribed, patient tolerated well, no adverse reactions noted. Turned and repositioned patient. Vital signs currently stable: HR 87, BP 114/67, O2 99%.
--- NOTE | 2019-12-18 11:37 | General Progress Note ---
Advance Care Planning Advance Care Planning Advance Care Planning [facility] An independent Hospitalist group, where every patient is our [facility] Internal Medicine Hospitalist Advanced Care Planning Note Please contact us at Date of Discussion: A telephone discussion with [phone]) with patient's Zonia RODRIGUEZ regarding the patient's advanced care planning took place during this hospitalization on the above date. The discussion included the explanation and discussion of advance directives and associated forms/documents, as well as the patient's current code status. We also discussed at length the patient's medical conditions (both acute and chronic), general prognosis, treatment options, and goals of care. The following summarizes the discussion: Advance Care Planning/Goals of Care: - Will attempt to fill out an AD and/or POLST with the patient prior to discharge, if not already completed - Continue current evaluation and management of any acute and chronic medical issues - Will continue to support the patient/family - Will continue to discuss both short- and long-term goals of care DPOA-HC/Surrogate Decision Maker: None currently appointed ([phone]) with patient's Zonia RODRIGUEZ Code Status: DNR/DNI Advanced Care Planning Forms/Documents Completed: Deferred until later encounter/visit A total of 30 minutes was spent on this discussion, including counseling, answering questions, and completing, if any, pertinent advanced care planning forms/documents. Time of note may not reflect time of encounter. Jasmeet Peña M.D. Dec 18, 2019 11:37
--- NOTE | 2019-12-18 11:42 | General Progress Note ---
Progress Note Progress Note I assumed acre of patient from overnight MD. I reviewed chart, notes, VS, flow sheets, labs and imaging. I examined the patient and agree with previous PE findings. I placed consults to ID, Pulm/crit, surgery, nephrology, hematology and GI. I discussed plan of care with all consultants. I updated PROFESSOR OF RHETORIC and ICU charge nurse for change of code status to DNR DNI. I spent 60 minutes on the above. Jasmeet Peña M.D. Dec 18, 2019 11:42
--- NOTE | 2019-12-18 11:55 | NUR ---
NURSE NOTES: Novolog held due to fingerstick blood glucose being 92mg/dL and patient is NPO.
--- NOTE | 2019-12-18 12:26 | Consultation ---
History of Present Illness General Chief Complaint: Dyspnea/Respdistress Reason for Consultation: BRYANT Present Illness HPI 73-year-old male with past medical history of advanced dementia (bedbound, nonverbal, PEG dependent at baseline), dysphasia s/p PEG tube, COPD, HTN, depression, PVCs, GERD, functional quadriplegia, adult failure to thrive, sacral ulcer who presents from rehab facility for septic shock Patient admitted for further treatment and evaluation. Patient is known to this hospital. On initial evaluation he has a mild leukocytosis with a lactic acidosis of 2.8. His UA is suspected of a UTI and patient is requiring levaphed to maintain MAP>55. labs on presentation notable for acute kidney injury with Cr of 1.7 Allergies: Coded Allergies: No Known Allergies (Unverified , 08/20/18) Medication History Scheduled Amino Acids/Protein Hydrolys (Pro-Stat Liquid), 30 ML ORAL DAILY, (Reported) Amlodipine Besylate* (Amlodipine Besylate*), 5 MG GT DAILY, (Reported) Ascorbic Acid* (Vitamin C*), 500 MG GT DAILY, (Reported) Cefepime Hcl/D5w (Cefepime-Dextrose 2 Gm/50 Ml), 2 GM IVPB Q24H Cyanocobalamin (Vitamin B-12) (Vitamin B-12), 100 MCG GT DAILY, (Reported) Doxazosin Mesylate* (Doxazosin Mesylate*), 1 MG GT DAILY, (Reported) Ergocalciferol (Vitamin D2)* (Vitamin D*), 50,000 UNIT GT ONCE A WEEK, (Reported) Finasteride* (Proscar*), 5 MG GT DAILY, (Reported) Gabapentin (Neurontin), 300 MG GT BEDTIME, (Reported) Isoniazid (Isoniazid), 300 MG GT EVERY MORNING Lactobacillus Rhamnosus Gg* (Culturelle*), 1 CAP GT DAILY, (Reported) Multivitamin With Minerals (Multivitamins With Minerals*), 1 TAB GT DAILY, (Reported) Pantoprazole Sodium (Protonix), 40 MG GT TWICE A DAY, (Reported) Pyridoxine Hcl* (Vitamin B-6*), 50 MG GT DAILY Thiamine Hcl* (Vitamin B-1*), 100 MG GT DAILY, (Reported) Vancomycin In Dextrose,Iso-Osm (Vancomycin 750 Mg/150 Ml Bag), 750 MG IV Q12HR [Iron Vitamin Liquid], 7.5 ML GT DAILY, (Reported) Scheduled PRN Ibuprofen* (Motrin*), 400 MG GT Q6HR PRN for Mild Pain (Pain Scale 1-3), (Reported) Ipratropium/Albuterol Sulfate (Iprat-Albut 0.5-3(2.5) Mg/3 Ml), 3 ML IH Q6HR PRN for Shortness of Breath, (Reported) Ondansetron* (Zofran*), 4 MG GT Q6H PRN for Nausea & Vomiting, (Reported) Tramadol Hcl* (Ultram*), 50 MG GT Q12HR PRN for MOD-SEVERE PAIN (4-10), (Reported) Miscellaneous Medications Zinc Gluconate (Zinc), 220 MG GT, (Reported) Discontinued Medications Cran/Vitc/Mannose/Inulin/Brom (Uti-Stat Liquid), 30 ML GT DAILY, (Reported) Discontinued Reason: Therapy completed Potassium Chloride (Potassium Chloride), 20 MEQ GT DAILY, (Reported) Discontinued Reason: Therapy completed Patient History Healthcare decision maker Resuscitation status Advanced Directive on File Review of Systems ROS Narrative unable to obtain due to clinical condition Physical Exam Last 24 Hour Vital Signs Date Time Temp Pulse Resp B/P (MAP) Pulse Ox O2 Delivery O2 Flow Rate FiO2 12/18/19 12:00 94 12/18/19 12:00 99.9 91 30 95/59 (71) 98 12/18/19 11:00 93 23 108/61 (77) 98 12/18/19 10:00 91 21 94/60 (71) 100 12/18/19 09:11 100.0 12/18/19 09:07 82 12/18/19 09:04 99.7 78 17 83/55 (64) 100 12/18/19 09:02 Non-Rebreather 5.0 12/18/19 08:05 99.4 90 19 106/63 100 Simple Mask 4.0 12/18/19 06:00 99.4 89 20 101/61 100 Simple Mask 5.0 12/18/19 05:35 86/53 12/18/19 05:05 107/63 12/18/19 05:00 99.4 99 19 92/55 100 Simple Mask 5.0 12/18/19 04:35 62/41 12/18/19 04:21 84 19 100 Simple Mask 5.0 12/18/19 04:10 91 21 98 Simple Mask 5.0 12/18/19 04:05 94/58 12/18/19 04:00 99.4 100 21 112/59 99 Simple Mask 7.0 12/18/19 03:55 106/62 12/18/19 03:50 96/58 12/18/19 03:25 105/55 12/18/19 03:20 146/63 12/18/19 03:15 98/53 12/18/19 03:10 95/55 12/18/19 03:05 87/52 12/18/19 03:00 99.4 92 21 88/52 99 Simple Mask 7.0 12/18/19 03:00 88/12/18/19 02:55 89/76 12/18/19 02:48 97/46 12/18/19 02:43 71/44 12/18/19 02:38 88/47 12/18/19 02:33 76/47 12/18/19 02:28 73/39 12/18/19 02:23 75/49 12/18/19 02:18 74/44 12/18/19 02:13 80/54 12/18/19 02:08 84/52 12/18/19 02:03 82/46 12/18/19 02:00 99.4 94 22 79/50 97 Simple Mask 7.0 12/18/19 01:58 79/50 12/18/19 01:57 78/46 12/18/19 01:53 79/47 12/18/19 01:48 75/44 12/18/19 01:43 73/44 12/18/19 01:00 99.4 92 19 68/53 99 Simple Mask 7.0 12/18/19 00:00 99.4 105 19 80/54 97 Non-Rebreather 10.0 12/17/19 23:34 99.4 12/17/19 23:00 102.7 106 21 80/48 98 Non-Rebreather 15.0 12/17/19 22:06 102.7 130 28 114/67 100 Non-Rebreather 15.0 12/17/19 22:06 130 28 Nasal Cannula 12.0 12/17/19 22:03 102.0 130 28 114/67 (83) 96 Nasal Cannula 12.0 Intake and Output 12/17/19 12/18/19 19:00 07:00 Intake Total 4000 ml Output Total 1300 ml Balance 2700 ml Intake Oral 0 ml IV Total 4000 ml Output Urine Total 1300 ml Laboratory Tests Test 12/17/19 22:28 12/17/19 23:38 12/18/19 04:11 12/18/19 09:25 White Blood Count 13.6 K/UL (4.8-10.8) H 22.2 K/UL (4.8-10.8) #*H Red Blood Count 3.39 M/UL (4.70-6.10) L 2.54 M/UL (4.70-6.10) L Hemoglobin 10.7 G/DL (14.2-18.0) L 8.0 G/DL (14.2-18.0) L Hematocrit 33.3 % (42.0-52.0) L 23.7 % (42.0-52.0) L Mean Corpuscular Volume 98 FL (80-99) 93 FL (80-99) Mean Corpuscular Hemoglobin 31.6 PG (27.0-31.0) H 31.5 PG (27.0-31.0) H Mean Corpuscular Hemoglobin Concent 32.2 G/DL (32.0-36.0) 33.7 G/DL (32.0-36.0) Red Cell Distribution Width 14.9 % (11.6-14.8) H 13.9 % (11.6-14.8) Platelet Count 243 K/UL (150-450) 174 K/UL (150-450) Mean Platelet Volume 7.4 FL (6.5-10.1) 7.6 FL (6.5-10.1) Neutrophils (%) (Auto) % (45.0-75.0) % (45.0-75.0) Lymphocytes (%) (Auto) % (20.0-45.0) % (20.0-45.0) Monocytes (%) (Auto) % (1.0-10.0) % (1.0-10.0) Eosinophils (%) (Auto) % (0.0-3.0) % (0.0-3.0) Basophils (%) (Auto) % (0.0-2.0) % (0.0-2.0) Differential Total Cells Counted 100 Neutrophils % (Manual) 64 % (45-75) Pending Lymphocytes % (Manual) 35 % (20-45) Pending Monocytes % (Manual) 1 % (1-10) Eosinophils % (Manual) 0 % (0-3) Basophils % (Manual) 0 % (0-2) Band Neutrophils 0 % (0-8) Platelet Estimate Adequate Pending Platelet Morphology Normal Pending Prothrombin Time 12.7 SEC (9.30-11.50) H Prothromb Time International Ratio 1.2 (0.9-1.1) H Activated Partial Thromboplast Time 24 SEC (23-33) D-Dimer 18.87 mg/L FEU (0.00-0.49) H Sodium Level 139 MMOL/L (136-145) 142 MMOL/L (136-145) Potassium Level 4.1 MMOL/L (3.5-5.1) 4.0 MMOL/L (3.5-5.1) Chloride Level 105 MMOL/L (98-107) 113 MMOL/L (98-107) H Carbon Dioxide Level 25 MMOL/L (21-32) 20 MMOL/L (21-32) L Anion Gap 10 mmol/L (5-15) 9 mmol/L (5-15) Blood Urea Nitrogen 53 mg/dL (7-18) H 32 mg/dL (7-18) H Creatinine 1.7 MG/DL (0.55-1.30) H 1.0 MG/DL (0.55-1.30) Estimat Glomerular Filtration Rate 39.6 mL/min (>60) > 60 mL/min (>60) Glucose Level 115 MG/DL (74-106) H 94 MG/DL (74-106) Lactic Acid Level 2.80 mmol/L (0.4-2.0) H 4.30 mmol/L (0.66-2.22) H Calcium Level 9.4 MG/DL (8.5-10.1) 7.7 MG/DL (8.5-10.1) L Ferritin 569 NG/ML (8-388) H Total Bilirubin 0.5 MG/DL (0.2-1.0) Aspartate Amino Transf (AST/SGOT) 28 U/L (15-37) Alanine Aminotransferase (ALT/SGPT) 27 U/L (12-78) Alkaline Phosphatase 103 U/L (46-116) Lactate Dehydrogenase 203 U/L (81-234) Total Creatine Kinase 83 U/L (26-308) Creatine Kinase MB 0.7 NG/ML (0.0-3.6) Creatine Kinase MB Relative Index 0.8 Troponin I 0.026 ng/mL (0.000-0.056) C-Reactive Protein, Quantitative 4.2 mg/dL (0.00-0.90) H Pro-B-Type Natriuretic Peptide 780 pg/mL (0-125) H Total Protein 8.5 G/DL (6.4-8.2) H Albumin 3.3 G/DL (3.4-5.0) L 2.2 G/DL (3.4-5.0) L Globulin 5.2 g/dL Albumin/Globulin Ratio 0.6 (1.0-2.7) L Lipase 86 U/L (73-393) Urine Color Pale yellow Urine Appearance Cloudy Urine pH 9 (4.5-8.0) Urine Specific [place] 1.010 (1.005-1.035) Urine Protein 2+ (NEGATIVE) H Urine Glucose (UA) Negative (NEGATIVE) Urine Ketones Negative (NEGATIVE) Urine Blood 5+ (NEGATIVE) H Urine Nitrite Positive (NEGATIVE) H Urine Bilirubin Negative (NEGATIVE) Urine Urobilinogen Normal MG/DL (0.0-1.0) Urine Leukocyte Esterase 3+ (NEGATIVE) H Urine RBC 60-80 /HPF (0 - 0) H Urine WBC 5-10 /HPF (0 - 0) H Urine Squamous Epithelial Cells Occasional /LPF Urine Bacteria Many /HPF (NONE) H Phosphorus Level 2.8 MG/DL (2.5-4.9) Microbiology Date/Time Source Procedure Growth Status 12/17/19 23:30 Nasopharynx SARS-CoV-2 RdRp Gene Assay - Final Complete Height (Feet): 5 Height (Inches): 4.00 Weight (Pounds): 140 Medications Current Medications Medications (Trade) Dose Ordered Sig/Altagracia Route PRN Reason Start Time Stop Time Status Last Admin Dose Admin Acetaminophen (Tylenol) 650 mg Q4H PRN ORAL Fever 12/18/19 05:15 01/17/20 05:14 Albuterol/ Ipratropium (Albuterol/ Ipratropium) 3 ml Q6H PRN HHN Shortness of Breath 12/18/19 05:45 12/23/19 05:44 Dextrose (Dextrose 50%) 25 ml Q30M PRN IV Hypoglycemia 12/18/19 05:15 03/17/20 05:14 Dextrose (Dextrose 50%) 50 ml Q30M PRN IV Hypoglycemia 12/18/19 05:15 03/17/20 05:14 Doxazosin Mesylate (Cardura) 1 mg DAILY GT 12/18/19 09:00 01/17/20 08:59 12/18/19 09:24 Ergocalciferol (Drisdol) 50,000 intlu ONCE A WEEK ORAL 12/19/19 09:00 01/18/20 08:59 Finasteride (Proscar) 5 mg DAILY ORAL 12/18/19 09:00 03/17/20 08:59 12/18/19 09:24 Heparin Sodium (Porcine) (Heparin 5000 units/ml) 5,000 units EVERY 12 HOURS SUBQ 12/18/19 09:00 02/01/20 08:59 12/18/19 09:25 Insulin Aspart (NovoLOG) BEFORE MEALS AND HS SUBQ 12/18/19 06:30 03/17/20 06:29 Isoniazid (Inh) 300 mg DAILY GT 12/18/19 09:00 01/17/20 08:59 12/18/19 09:24 Lactobacillus Acidophilus (Culturelle) 1 tab TWICE A DAY GT 12/18/19 09:00 03/17/20 08:59 12/18/19 09:24 Norepinephrine Bitartrate 4 mg/ Dextrose 250 ml @ 0 mls/hr Q24H IV 12/18/19 05:15 12/21/19 05:14 12/18/19 05:35 Ondansetron HCl (Zofran) 4 mg Q6H PRN IVP Nausea & Vomiting 12/18/19 05:15 01/17/20 05:14 Pantoprazole (Protonix) 40 mg EVERY 12 HOURS IVP 12/18/19 21:00 01/17/20 20:59 Piperacillin Sod/ Tazobactam Sod 3.375 gm/Sodium Chloride 110 ml @ 27.5 mls/hr EVERY 8 HOURS IVPB 12/18/19 06:30 12/23/19 06:29 Pyridoxine HCl (Vitamin B6) 50 mg DAILY GT 12/18/19 09:00 01/17/20 08:59 12/18/19 09:24 Sodium Chloride 1,000 ml @ 100 mls/hr Q10H IVLG 12/18/19 06:00 01/17/20 05:59 12/18/19 06:54 Vancomycin HCl (Vanco pharmacy to dose) 1 ea DAILY PRN MISC PER RX PROTOCOL 12/18/19 06:45 01/17/20 06:44 Vancomycin HCl 750 mg/Sodium Chloride 275 ml @ 183.333 mls/hr Q24H IVPB 12/19/19 10:00 12/24/19 09:59 Objective Narrative General Appearance: no apparent distress, alert, confused Lines, tubes and drains: peripheral, central line HEENT: normocephalic Neck: non-tender Respiratory/Chest: lungs clear Cardiovascular/Chest: normal peripheral pulses, normal rate, regular rhythm Abdomen: normal bowel sounds, soft Extremities: normal range of motion Skin Exam: warm/dry Musculoskeletal: atrophy Assessment/Plan Diagnosis [place]: #BRYANT due to pre- renal azotemia in the setting of sepsis - r/o ATN #septic shock due to UTI #advanced dementia (bedbound, nonverbal, PEG dependent at baseline) #dysphasia s/p PEG tube #COPD #HTN #Depression - IVF - antibiotics - monitor vanco level closely - pressors to maintain MAP> 65 - hold antihypetensives - further work up if no improvement in renal function with hydration Jelani Sauer M.D. Dec 18, 2019 12:26
[2019-12-18] MEDS ORDERED: ZINC30 MG GT (13:02)
[2019-12-18] MEDS ORDERED: PRO-STAT LIQUID30 ML ORAL (13:02)
[2019-12-18] MEDS ORDERED: MULTIVITAMINS1 EAC8 GT (13:02)
[2019-12-18] MEDS ORDERED: NEURONTIN300 MG GT (13:02)
--- NOTE | 2019-12-18 13:30 | NUR ---
NURSE NOTES: Patient seen and assessed by Dr. Alan.
--- NOTE | 2019-12-18 13:41 | Infectious Diseases Prog Note ---
Assessment/Plan Assessment/Plan Full consult dictated: A) 1) sepsis, leukocytosis, fevers, ? uti, ? pna 2) pmh noted 3) allergies - negative P) 1) vancomycin and meropenem 2) f/u on cultures, labs and chest x-ray 3) thank you Subjective Allergies: Coded Allergies: No Known Allergies (Unverified , 08/20/18) Objective Last 24 Hour Vital Signs Date Time Temp Pulse Resp B/P (MAP) Pulse Ox O2 Delivery O2 Flow Rate FiO2 12/18/19 13:00 95 20 108/80 (89) 93 12/18/19 12:00 94 12/18/19 12:00 99.9 91 30 95/59 (71) 98 12/18/19 12:00 Non-Rebreather 12/18/19 11:00 93 23 108/61 (77) 98 12/18/19 10:00 91 21 94/60 (71) 100 12/18/19 09:11 100.0 12/18/19 09:07 82 12/18/19 09:04 99.7 78 17 83/55 (64) 100 12/18/19 09:02 Non-Rebreather 5.0 12/18/19 08:05 99.4 90 19 106/63 100 Simple Mask 4.0 12/18/19 06:00 99.4 89 20 101/61 100 Simple Mask 5.0 12/18/19 05:35 86/53 12/18/19 05:05 107/63 12/18/19 05:00 99.4 99 19 92/55 100 Simple Mask 5.0 12/18/19 04:35 62/41 12/18/19 04:21 84 19 100 Simple Mask 5.0 12/18/19 04:10 91 21 98 Simple Mask 5.0 12/18/19 04:05 94/58 12/18/19 04:00 99.4 100 21 112/59 99 Simple Mask 7.0 12/18/19 03:55 106/62 12/18/19 03:50 96/58 12/18/19 03:25 105/55 12/18/19 03:20 146/63 12/18/19 03:15 98/53 12/18/19 03:10 95/55 12/18/19 03:05 87/52 12/18/19 03:00 99.4 92 21 88/52 99 Simple Mask 7.0 12/18/19 03:00 88/52 12/18/19 02:55 89/76 12/18/19 02:48 97/46 12/18/19 02:43 71/44 12/18/19 02:38 88/47 12/18/19 02:33 76/47 12/18/19 02:28 73/39 12/18/19 02:23 75/49 12/18/19 02:18 74/44 12/18/19 02:13 80/54 12/18/19 02:08 84/52 12/18/19 02:03 82/46 12/18/19 02:00 99.4 94 22 79/50 97 Simple Mask 7.0 12/18/19 01:58 79/50 12/18/19 01:57 78/46 12/18/19 01:53 79/47 12/18/19 01:48 75/44 12/18/19 01:43 73/44 12/18/19 01:00 99.4 92 19 68/53 99 Simple Mask 7.0 12/18/19 00:00 99.4 105 19 80/54 97 Non-Rebreather 10.0 12/17/19 23:34 99.4 12/17/19 23:00 102.7 106 21 80/48 98 Non-Rebreather 15.0 12/17/19 22:06 102.7 130 28 114/67 100 Non-Rebreather 15.0 12/17/19 22:06 130 28 Nasal Cannula 12.0 12/17/19 22:03 102.0 130 28 114/67 (83) 96 Nasal Cannula 12.0 Height (Feet): 5 Height (Inches): 4.00 Weight (Pounds): 140 Microbiology Date/Time Source Procedure Growth Status 12/17/19 23:30 Nasopharynx SARS-CoV-2 RdRp Gene Assay - Final Complete Laboratory Tests Test 12/17/19 22:28 12/17/19 23:38 12/18/19 04:11 12/18/19 09:25 White Blood Count 13.6 K/UL (4.8-10.8) H 22.2 K/UL (4.8-10.8) #*H Red Blood Count 3.39 M/UL (4.70-6.10) L 2.54 M/UL (4.70-6.10) L Hemoglobin 10.7 G/DL (14.2-18.0) L 8.0 G/DL (14.2-18.0) L Hematocrit 33.3 % (42.0-52.0) L 23.7 % (42.0-52.0) L Mean Corpuscular Volume 98 FL (80-99) 93 FL (80-99) Mean Corpuscular Hemoglobin 31.6 PG (27.0-31.0) H 31.5 PG (27.0-31.0) H Mean Corpuscular Hemoglobin Concent 32.2 G/DL (32.0-36.0) 33.7 G/DL (32.0-36.0) Red Cell Distribution Width 14.9 % (11.6-14.8) H 13.9 % (11.6-14.8) Platelet Count 243 K/UL (150-450) 174 K/UL (150-450) Mean Platelet Volume 7.4 FL (6.5-10.1) 7.6 FL (6.5-10.1) Neutrophils (%) (Auto) % (45.0-75.0) % (45.0-75.0) Lymphocytes (%) (Auto) % (20.0-45.0) % (20.0-45.0) Monocytes (%) (Auto) % (1.0-10.0) % (1.0-10.0) Eosinophils (%) (Auto) % (0.0-3.0) % (0.0-3.0) Basophils (%) (Auto) % (0.0-2.0) % (0.0-2.0) Differential Total Cells Counted 100 Neutrophils % (Manual) 64 % (45-75) Pending Lymphocytes % (Manual) 35 % (20-45) Pending Monocytes % (Manual) 1 % (1-10) Eosinophils % (Manual) 0 % (0-3) Basophils % (Manual) 0 % (0-2) Band Neutrophils 0 % (0-8) Platelet Estimate Adequate Pending Platelet Morphology Normal Pending Prothrombin Time 12.7 SEC (9.30-11.50) H Prothromb Time International Ratio 1.2 (0.9-1.1) H Activated Partial Thromboplast Time 24 SEC (23-33) D-Dimer 18.87 mg/L FEU (0.00-0.49) H Sodium Level 139 MMOL/L (136-145) 142 MMOL/L (136-145) Potassium Level 4.1 MMOL/L (3.5-5.1) 4.0 MMOL/L (3.5-5.1) Chloride Level 105 MMOL/L (98-107) 113 MMOL/L (98-107) H Carbon Dioxide Level 25 MMOL/L (21-32) 20 MMOL/L (21-32) L Anion Gap 10 mmol/L (5-15) 9 mmol/L (5-15) Blood Urea Nitrogen 53 mg/dL (7-18) H 32 mg/dL (7-18) H Creatinine 1.7 MG/DL (0.55-1.30) H 1.0 MG/DL (0.55-1.30) Estimat Glomerular Filtration Rate 39.6 mL/min (>60) > 60 mL/min (>60) Glucose Level 115 MG/DL (74-106) H 94 MG/DL (74-106) Lactic Acid Level 2.80 mmol/L (0.4-2.0) H 4.30 mmol/L (0.66-2.22) H Calcium Level 9.4 MG/DL (8.5-10.1) 7.7 MG/DL (8.5-10.1) L Ferritin 569 NG/ML (8-388) H Total Bilirubin 0.5 MG/DL (0.2-1.0) Aspartate Amino Transf (AST/SGOT) 28 U/L (15-37) Alanine Aminotransferase (ALT/SGPT) 27 U/L (12-78) Alkaline Phosphatase 103 U/L (46-116) Lactate Dehydrogenase 203 U/L (81-234) Total Creatine Kinase 83 U/L (26-308) Creatine Kinase MB 0.7 NG/ML (0.0-3.6) Creatine Kinase MB Relative Index 0.8 Troponin I 0.026 ng/mL (0.000-0.056) C-Reactive Protein, Quantitative 4.2 mg/dL (0.00-0.90) H Pro-B-Type Natriuretic Peptide 780 pg/mL (0-125) H Total Protein 8.5 G/DL (6.4-8.2) H Albumin 3.3 G/DL (3.4-5.0) L 2.2 G/DL (3.4-5.0) L Globulin 5.2 g/dL Albumin/Globulin Ratio 0.6 (1.0-2.7) L Lipase 86 U/L (73-393) Urine Color Pale yellow Urine Appearance Cloudy Urine pH 9 (4.5-8.0) Urine Specific [place] 1.010 (1.005-1.035) Urine Protein 2+ (NEGATIVE) H Urine Glucose (UA) Negative (NEGATIVE) Urine Ketones Negative (NEGATIVE) Urine Blood 5+ (NEGATIVE) H Urine Nitrite Positive (NEGATIVE) H Urine Bilirubin Negative (NEGATIVE) Urine Urobilinogen Normal MG/DL (0.0-1.0) Urine Leukocyte Esterase 3+ (NEGATIVE) H Urine RBC 60-80 /HPF (0 - 0) H Urine WBC 5-10 /HPF (0 - 0) H Urine Squamous Epithelial Cells Occasional /LPF Urine Bacteria Many /HPF (NONE) H Phosphorus Level 2.8 MG/DL (2.5-4.9) Current Medications Medications (Trade) Dose Ordered Sig/Altagracia Route PRN Reason Start Time Stop Time Status Last Admin Dose Admin Acetaminophen (Tylenol) 650 mg Q4H PRN ORAL Fever 12/18/19 05:15 01/17/20 05:14 Albuterol/ Ipratropium (Albuterol/ Ipratropium) 3 ml Q6H PRN HHN Shortness of Breath 12/18/19 05:45 12/23/19 05:44 Dextrose (Dextrose 50%) 25 ml Q30M PRN IV Hypoglycemia 12/18/19 05:15 03/17/20 05:14 Dextrose (Dextrose 50%) 50 ml Q30M PRN IV Hypoglycemia 12/18/19 05:15 03/17/20 05:14 Doxazosin Mesylate (Cardura) 1 mg DAILY GT 12/18/19 09:00 01/17/20 08:59 12/18/19 09:24 Ergocalciferol (Drisdol) 50,000 intlu ONCE A WEEK ORAL 12/19/19 09:00 11/4/20 08:59 Finasteride (Proscar) 5 mg DAILY ORAL 12/18/19 09:00 03/17/20 08:59 12/18/19 09:24 Heparin Sodium (Porcine) (Heparin 5000 units/ml) 5,000 units EVERY 12 HOURS SUBQ 12/18/19 09:00 02/01/20 08:59 12/18/19 09:25 Insulin Aspart (NovoLOG) BEFORE MEALS AND HS SUBQ 12/18/19 06:30 03/17/20 06:29 Isoniazid (Inh) 300 mg DAILY GT 12/18/19 09:00 01/17/20 08:59 12/18/19 09:24 Lactobacillus Acidophilus (Culturelle) 1 tab TWICE A DAY GT 12/18/19 09:00 03/17/20 08:59 12/18/19 09:24 Norepinephrine Bitartrate 4 mg/ Dextrose 250 ml @ 0 mls/hr Q24H IV 12/18/19 05:15 12/21/19 05:14 12/18/19 05:35 Ondansetron HCl (Zofran) 4 mg Q6H PRN IVP Nausea & Vomiting 12/18/19 05:15 01/17/20 05:14 Pantoprazole (Protonix) 40 mg EVERY 12 HOURS IVP 12/18/19 21:00 01/17/20 20:59 Piperacillin Sod/ Tazobactam Sod 3.375 gm/Sodium Chloride 110 ml @ 27.5 mls/hr EVERY 8 HOURS IVPB 12/18/19 06:30 12/23/19 06:29 12/18/19 13:37 Pyridoxine HCl (Vitamin B6) 50 mg DAILY GT 12/18/19 09:00 01/17/20 08:59 12/18/19 09:24 Sodium Chloride 1,000 ml @ 100 mls/hr Q10H IVLG 12/18/19 06:00 01/17/20 05:59 12/18/19 06:54 Vancomycin HCl (Vanco pharmacy to dose) 1 ea DAILY PRN MISC PER RX PROTOCOL 12/18/19 06:45 01/17/20 06:44 Vancomycin HCl 750 mg/Sodium Chloride 275 ml @ 183.333 mls/hr Q24H IVPB 12/19/19 10:00 12/24/19 09:59 Bonny Rincon MD Dec 18, 2019 13:41
[2019-12-18] MEDS ORDERED: D5W 275ml ONE (16:04)
[2019-12-18] MEDS ORDERED: NS 275ml ONE (16:04)
[2019-12-18] MEDS ORDERED: Tubing IV Secondary IV ONE ×2 (16:04)
--- NOTE | 2019-12-18 16:09 | Pulmonolgy Critical Care Note ---
Critical Care - Asmt/Plan Assessment/Plan: Pulmonary Consultation HPI Patient is a 73-year-old man from a group home, has past medical history of advanced dementia,hypertension, COPD, Latent TB, previous CVA, previous PEG for dysphasia, GERD, depression, functional quadriplegia, adult failure to thrive, sacral ulcer.Patient was admitted with UTI, septic shock, initial lactic acid of 2.8,azotemia. On PRN levophed via centralline placed in the ED. Patient is DNAR, DNI status Allergies: No Known Allergies Past Medical History: Advanced dementia,hypertension, COPD, Latent TB, previous CVA, previous PEG for dysphasia, GERD, depression, functional quadriplegia, adult failure to thrive, sacral ulcer ROS: unable to obtain due to clinical condition Physical Exam Vital Signs noted Date Time Temp Pulse Resp B/P (MAP) Pulse Ox O2 Delivery O2 Flow Rate FiO2 12/18/19 12:00 94 12/18/19 12:00 99.9 91 30 95/59 (71) 98 12/18/19 11:00 93 23 108/61 (77) 98 12/18/19 10:00 91 21 94/60 (71) 100 12/18/19 09:11 100.0 12/18/19 09:07 82 12/18/19 09:04 99.7 78 17 83/55 (64) 100 12/18/19 09:02 Non-Rebreather 5.0 12/18/19 08:05 99.4 90 19 106/63 100 Simple Mask 4.0 12/18/19 06:00 99.4 89 20 101/61 100 Simple Mask 5.0 12/18/19 05:35 86/53 12/18/19 05:05 107/63 12/18/19 05:00 99.4 99 19 92/55 100 Simple Mask 5.0 12/18/19 04:35 62/41 12/18/19 04:21 84 19 100 Simple Mask 5.0 12/18/19 04:10 91 21 98 Simple Mask 5.0 12/18/19 04:05 94/58 12/18/19 04:00 99.4 100 21 112/59 99 Simple Mask 7.0 12/18/19 03:55 106/62 12/18/19 03:50 96/58 12/18/19 03:25 105/55 12/18/19 03:20 146/63 12/18/19 03:15 98/53 12/18/19 03:10 95/55 12/18/19 03:05 87/52 12/18/19 03:00 99.4 92 21 88/52 99 Simple Mask 7.0 12/18/19 03:00 88/52 12/18/19 02:55 89/76 12/18/19 02:48 97/46 12/18/19 02:43 71/44 12/18/19 02:38 88/47 12/18/19 02:33 76/47 12/18/19 02:28 73/39 12/18/19 02:23 75/49 12/18/19 02:18 74/44 12/18/19 02:13 80/54 12/18/19 02:08 84/52 12/18/19 02:03 82/46 12/18/19 02:00 99.4 94 22 79/50 97 Simple Mask 7.0 12/18/19 01:58 79/50 12/18/19 01:57 78/46 12/18/19 01:53 79/47 12/18/19 01:48 75/44 12/18/19 01:43 73/44 12/18/19 01:00 99.4 92 19 68/53 99 Simple Mask 7.0 12/18/19 00:00 99.4 105 19 80/54 97 Non-Rebreather 10.0 12/17/19 23:34 99.4 12/17/19 23:00 102.7 106 21 80/48 98 Non-Rebreather 15.0 12/17/19 22:06 102.7 130 28 114/67 100 Non-Rebreather 15.0 12/17/19 22:06 130 28 Nasal Cannula 12.0 12/17/19 22:03 102.0 130 28 114/67 (83) 96 Nasal Cannula 12.0 Intake and Output 12/17/19 12/18/19 19:00 07:00 Intake Total 4000 ml Output Total 1300 ml Balance 2700 ml Intake Oral 0 ml IV Total 4000 ml Output Urine Total 1300 ml Laboratory Tests noted Test 12/17/19 22:28 12/17/19 23:38 12/18/19 04:11 12/18/19 09:25 White Blood Count 13.6 K/UL (4.8-10.8) H 22.2 K/UL (4.8-10.8) #*H Red Blood Count 3.39 M/UL (4.70-6.10) L 2.54 M/UL (4.70-6.10) L Hemoglobin 10.7 G/DL (14.2-18.0) L 8.0 G/DL (14.2-18.0) L Hematocrit 33.3 % (42.0-52.0) L 23.7 % (42.0-52.0) L Mean Corpuscular Volume 98 FL (80-99) 93 FL (80-99) Mean Corpuscular Hemoglobin 31.6 PG (27.0-31.0) H 31.5 PG (27.0-31.0) H Mean Corpuscular Hemoglobin Concent 32.2 G/DL (32.0-36.0) 33.7 G/DL (32.0-36.0) Red Cell Distribution Width 14.9 % (11.6-14.8) H 13.9 % (11.6-14.8) Platelet Count 243 K/UL (150-450) 174 K/UL (150-450) Mean Platelet Volume 7.4 FL (6.5-10.1) 7.6 FL (6.5-10.1) Neutrophils (%) (Auto) % (45.0-75.0) % (45.0-75.0) Lymphocytes (%) (Auto) % (20.0-45.0) % (20.0-45.0) Monocytes (%) (Auto) % (1.0-10.0) % (1.0-10.0) Eosinophils (%) (Auto) % (0.0-3.0) % (0.0-3.0) Basophils (%) (Auto) % (0.0-2.0) % (0.0-2.0) Differential Total Cells Counted 100 Neutrophils % (Manual) 64 % (45-75) Pending Lymphocytes % (Manual) 35 % (20-45) Pending Monocytes % (Manual) 1 % (1-10) Eosinophils % (Manual) 0 % (0-3) Basophils % (Manual) 0 % (0-2) Band Neutrophils 0 % (0-8) Platelet Estimate Adequate Pending Platelet Morphology Normal Pending Prothrombin Time 12.7 SEC (9.30-11.50) H Prothromb Time International Ratio 1.2 (0.9-1.1) H Activated Partial Thromboplast Time 24 SEC (23-33) D-Dimer 18.87 mg/L FEU (0.00-0.49) H Sodium Level 139 MMOL/L (136-145) 142 MMOL/L (136-145) Potassium Level 4.1 MMOL/L (3.5-5.1) 4.0 MMOL/L (3.5-5.1) Chloride Level 105 MMOL/L (98-107) 113 MMOL/L (98-107) H Carbon Dioxide Level 25 MMOL/L (21-32) 20 MMOL/L (21-32) L Anion Gap 10 mmol/L (5-15) 9 mmol/L (5-15) Blood Urea Nitrogen 53 mg/dL (7-18) H 32 mg/dL (7-18) H Creatinine 1.7 MG/DL (0.55-1.30) H 1.0 MG/DL (0.55-1.30) Estimat Glomerular Filtration Rate 39.6 mL/min (>60) > 60 mL/min (>60) Glucose Level 115 MG/DL (74-106) H 94 MG/DL (74-106) Lactic Acid Level 2.80 mmol/L (0.4-2.0) H 4.30 mmol/L (0.66-2.22) H Calcium Level 9.4 MG/DL (8.5-10.1) 7.7 MG/DL (8.5-10.1) L Ferritin 569 NG/ML (8-388) H Total Bilirubin 0.5 MG/DL (0.2-1.0) Aspartate Amino Transf (AST/SGOT) 28 U/L (15-37) Alanine Aminotransferase (ALT/SGPT) 27 U/L (12-78) Alkaline Phosphatase 103 U/L (46-116) Lactate Dehydrogenase 203 U/L (81-234) Total Creatine Kinase 83 U/L (26-308) Creatine Kinase MB 0.7 NG/ML (0.0-3.6) Creatine Kinase MB Relative Index 0.8 Troponin I 0.026 ng/mL (0.000-0.056) C-Reactive Protein, Quantitative 4.2 mg/dL (0.00-0.90) H Pro-B-Type Natriuretic Peptide 780 pg/mL (0-125) H Total Protein 8.5 G/DL (6.4-8.2) H Albumin 3.3 G/DL (3.4-5.0) L 2.2 G/DL (3.4-5.0) L Globulin 5.2 g/dL Albumin/Globulin Ratio 0.6 (1.0-2.7) L Lipase 86 U/L (73-393) Urine Color Pale yellow Urine Appearance Cloudy Urine pH 9 (4.5-8.0) Urine Specific [place] 1.010 (1.005-1.035) Urine Protein 2+ (NEGATIVE) H Urine Glucose (UA) Negative (NEGATIVE) Urine Ketones Negative (NEGATIVE) Urine Blood 5+ (NEGATIVE) H Urine Nitrite Positive (NEGATIVE) H Urine Bilirubin Negative (NEGATIVE) Urine Urobilinogen Normal MG/DL (0.0-1.0) Urine Leukocyte Esterase 3+ (NEGATIVE) H Urine RBC 60-80 /HPF (0 - 0) H Urine WBC 5-10 /HPF (0 - 0) H Urine Squamous Epithelial Cells Occasional /LPF Urine Bacteria Many /HPF (NONE) H Phosphorus Level 2.8 MG/DL (2.5-4.9) Imaging: CXR, course lung markings EKG: ST,no acute changes Height (Feet): 5 Height (Inches): 4.00 Weight (Pounds): 140 Medications Objective: General Appearance: no apparent distress, alert, confused, non verbal Lines, tubes and drains: peripheral, central line HEENT: normocephalic Neck: non-tender Respiratory: lungs few basal crackles Cardiovascular: HS1, HS2 normal, regular rhythm Abdomen: normal bowel sounds, soft Extremities: well perfused,normal range of motion Skin Exam: warm/dry Musculoskeletal: atrophy SHIRT TURNER: non verbal,functional quadriplegia,no seizures Assessment/Plan Impression: Septic shock due to UTI, on PRN Pressors Azotemia Advanced Dementia H/o Hypertension COPD Latent TB Previous CVA Previous PEG for dysphasia/GERD Depression Functional quadriplegia Adult failure to thrive Sacral decubitus ulcer Impression: - IVF - renal following - IV Antibiotics per ID - Monitor labs - Pressors PRN maintain MAP> 65 - PTAMeds - PPX - DNAR/DNI status Critical Care - Objective Last 24 Hour Vital Signs Date Time Temp Pulse Resp B/P (MAP) Pulse Ox O2 Delivery O2 Flow Rate FiO2 12/18/19 15:00 90 25 116/66 (83) 97 12/18/19 14:00 87 22 94/60 (71) 100 12/18/19 13:00 95 20 108/80 (89) 93 12/18/19 12:00 94 12/18/19 12:00 99.9 91 30 95/59 (71) 98 12/18/19 12:00 Non-Rebreather 12/18/19 11:00 93 23 108/61 (77) 98 12/18/19 10:00 91 21 94/60 (71) 100 12/18/19 09:11 100.0 12/18/19 09:07 82 12/18/19 09:04 99.7 78 17 83/55 (64) 100 12/18/19 09:02 Non-Rebreather 5.0 12/18/19 08:05 99.4 90 19 106/63 100 Simple Mask 4.0 12/18/19 06:00 99.4 89 20 101/61 100 Simple Mask 5.0 12/18/19 05:35 86/53 12/18/19 05:05 107/63 12/18/19 05:00 99.4 99 19 92/55 100 Simple Mask 5.0 12/18/19 04:35 62/41 12/18/19 04:21 84 19 100 Simple Mask 5.0 12/18/19 04:10 91 21 98 Simple Mask 5.0 12/18/19 04:05 94/58 12/18/19 04:00 99.4 100 21 112/59 99 Simple Mask 7.0 12/18/19 03:55 106/62 12/18/19 03:50 96/58 12/18/19 03:25 105/55 12/18/19 03:20 146/63 12/18/19 03:15 98/53 12/18/19 03:10 95/55 12/18/19 03:05 87/52 12/18/19 03:00 99.4 92 21 88/52 99 Simple Mask 7.0 12/18/19 03:00 88/52 12/18/19 02:55 89/76 12/18/19 02:48 97/46 12/18/19 02:43 71/44 12/18/19 02:38 88/47 12/18/19 02:33 76/47 12/18/19 02:28 73/39 12/18/19 02:23 75/49 12/18/19 02:18 74/44 12/18/19 02:13 80/54 12/18/19 02:08 84/52 12/18/19 02:03 82/46 12/18/19 02:00 99.4 94 22 79/50 97 Simple Mask 7.0 12/18/19 01:58 79/50 12/18/19 01:57 78/46 12/18/19 01:53 79/47 12/18/19 01:48 75/44 12/18/19 01:43 73/44 12/18/19 01:00 99.4 92 19 68/53 99 Simple Mask 7.0 12/18/19 00:00 99.4 105 19 80/54 97 Non-Rebreather 10.0 12/17/19 23:34 99.4 12/17/19 23:00 102.7 106 21 80/48 98 Non-Rebreather 15.0 12/17/19 22:06 102.7 130 28 114/67 100 Non-Rebreather 15.0 12/17/19 22:06 130 28 Nasal Cannula 12.0 12/17/19 22:03 102.0 130 28 114/67 (83) 96 Nasal Cannula 12.0 Micro: Microbiology Date/Time Source Procedure Growth Status 12/17/19 23:30 Nasopharynx SARS-CoV-2 RdRp Gene Assay - Final Complete Accucheck: 92 Critical Care - Subjective ROS Limited/Unobtainable: Yes Condition: critical IV Access: central EKG Rhythm: Sinus Rhythm Sputum Amount: None I&O: Intake and Output 12/17/19 12/18/19 19:00 07:00 Intake Total 4000 ml Output Total 1300 ml Balance 2700 ml Intake Oral 0 ml IV Total 4000 ml Output Urine Total 1300 ml Elijah Isaac MD Dec 18, 2019 16:09
--- NOTE | 2019-12-18 16:14 | NUR ---
TRANSFER TO FLOOR: Patient transferred to [facility], per Dr. Peña. Report given to Luisa CURRY. Medications given to oncoming nurse. Family and or S/O informed of transfer.
--- NOTE | 2019-12-18 16:16 | Consultation ---
History of Present Illness General Date patient seen: Dec 18, 2019 Chief Complaint: Dyspnea/Respdistress Reason for Consultation: BRYANT Present Illness HPI This is a 73-year-old male well-known to me from prior hospitalization care plan who has past history of advanced dementia he is bedbound nonverbal and care dependent. History of PEG on tube feeds COPD hypertension prevascular GERD quad riplegia failure to thrive and sacral decubitus ulcers as well as other skin concerns who presented from his care facility with septic shock hypotensive lactic acidosis admitted further care and management currently in the intensive care unit. Labs reviewed micro noted patient unresponsive alert but unable to participate in exam Allergies: Coded Allergies: No Known Allergies (Unverified , 08/20/18) Medication History Scheduled Amino Acids/Protein Hydrolys (Pro-Stat Liquid), 30 ML ORAL DAILY, (Reported) Amlodipine Besylate* (Amlodipine Besylate*), 5 MG GT DAILY, (Reported) Ascorbic Acid* (Vitamin C*), 500 MG GT DAILY, (Reported) Cefepime Hcl/D5w (Cefepime-Dextrose 2 Gm/50 Ml), 2 GM IVPB Q24H Cyanocobalamin (Vitamin B-12) (Vitamin B-12), 100 MCG GT DAILY, (Reported) Doxazosin Mesylate* (Doxazosin Mesylate*), 1 MG GT DAILY, (Reported) Ergocalciferol (Vitamin D2)* (Vitamin D*), 50,000 UNIT GT ONCE A WEEK, (Reported) Finasteride* (Proscar*), 5 MG GT DAILY, (Reported) Gabapentin (Neurontin), 300 MG GT BEDTIME, (Reported) Isoniazid (Isoniazid), 300 MG GT EVERY MORNING Lactobacillus Rhamnosus Gg* (Culturelle*), 1 CAP GT DAILY, (Reported) Multivitamin With Minerals (Multivitamins With Minerals*), 1 TAB GT DAILY, (Reported) Pantoprazole Sodium (Protonix), 40 MG GT TWICE A DAY, (Reported) Pyridoxine Hcl* (Vitamin B-6*), 50 MG GT DAILY Thiamine Hcl* (Vitamin B-1*), 100 MG GT DAILY, (Reported) Vancomycin In Dextrose,Iso-Osm (Vancomycin 750 Mg/150 Ml Bag), 750 MG IV Q12HR [Iron Vitamin Liquid], 7.5 ML GT DAILY, (Reported) Scheduled PRN Ibuprofen* (Motrin*), 400 MG GT Q6HR PRN for Mild Pain (Pain Scale 1-3), (Reported) Ipratropium/Albuterol Sulfate (Iprat-Albut 0.5-3(2.5) Mg/3 Ml), 3 ML IH Q6HR PRN for Shortness of Breath, (Reported) Ondansetron* (Zofran*), 4 MG GT Q6H PRN for Nausea & Vomiting, (Reported) Tramadol Hcl* (Ultram*), 50 MG GT Q12HR PRN for MOD-SEVERE PAIN (4-10), (Reported) Miscellaneous Medications Zinc Gluconate (Zinc), 220 MG GT, (Reported) Discontinued Medications Cran/Vitc/Mannose/Inulin/Brom (Uti-Stat Liquid), 30 ML GT DAILY, (Reported) Discontinued Reason: Therapy completed Potassium Chloride (Potassium Chloride), 20 MEQ GT DAILY, (Reported) Discontinued Reason: Therapy completed Patient History Limited by: medical condition History Provided By: Medical Record, PMD Healthcare decision maker Resuscitation status Advanced Directive on File Past Medical/Surgical History Past Medical/Surgical History: (1) Abnormal laboratory test result (2) Hematemesis (3) Bacteremia (4) wound (5) Latent tuberculosis (6) Do not intubate, cardiopulmonary resuscitation (CPR)-only code status (7) COPD (chronic obstructive pulmonary disease) (8) Septic shock (9) Septic shock (10) Hematuria (11) Fecal impaction (12) Rhabdomyolysis (13) GI bleed (14) Encounter for PEG (percutaneous endoscopic gastrostomy) (15) BRYANT (acute kidney injury) (16) Urinary retention (17) Bladder calculi (18) Proteinuria (19) Altered mental status (20) Electrolyte imbalance (21) Hypertension (22) Pneumonia (23) Severe sepsis (24) Frequent PVCs (25) Hypokalemia (26) UTI (urinary tract infection) (27) Elevated LFTs (28) Dehydration (29) Decubitus skin ulcer (30) Suspected COVID-19 virus infection (31) UTI (urinary tract infection) (32) BPH (benign prostatic hyperplasia) (33) Hyponatremia (34) Severe malnutrition (35) Failure to thrive syndrome, adult (36) Sepsis Review of Systems All Other Systems: negative except mentioned in HPI ROS Narrative Limited given patient's medical condition Physical Exam General Appearance: no apparent distress, alert Lines, tubes and drains: peripheral, other HEENT: mucous membranes moist Neck: supple, normal inspection Respiratory/Chest: no respiratory distress, no accessory muscle use, decreased breath sounds Abdomen: soft, no organomegaly, no mass, feeding tube, other Genitourinary/Rectal: normal rectal exam Extremities: non-tender, normal inspection, no calf tenderness Skin Exam: warm/dry, other Neurologic: alert Last 24 Hour Vital Signs Date Time Temp Pulse Resp B/P (MAP) Pulse Ox O2 Delivery O2 Flow Rate FiO2 12/18/19 16:00 99.8 92 23 97/62 (74) 99 12/18/19 15:00 90 25 116/66 (83) 97 12/18/19 14:00 87 22 94/60 (71) 100 12/18/19 13:00 95 20 108/80 (89) 93 12/18/19 12:00 94 12/18/19 12:00 99.9 91 30 95/59 (71) 98 12/18/19 12:00 Non-Rebreather 12/18/19 11:00 93 23 108/61 (77) 98 12/18/19 10:00 91 21 94/60 (71) 100 12/18/19 09:11 100.0 12/18/19 09:07 82 12/18/19 09:04 99.7 78 17 83/55 (64) 100 12/18/19 09:02 Non-Rebreather 5.0 12/18/19 08:05 99.4 90 19 106/63 100 Simple Mask 4.0 12/18/19 06:00 99.4 89 20 101/61 100 Simple Mask 5.0 12/18/19 05:35 86/53 12/18/19 05:05 107/63 12/18/19 05:00 99.4 99 19 92/55 100 Simple Mask 5.0 12/18/19 04:35 62/41 12/18/19 04:21 84 19 100 Simple Mask 5.0 12/18/19 04:10 91 21 98 Simple Mask 5.0 12/18/19 04:05 94/58 12/18/19 04:00 99.4 100 21 112/59 99 Simple Mask 7.0 12/18/19 03:55 106/62 12/18/19 03:50 96/58 12/18/19 03:25 105/55 12/18/19 03:20 146/63 12/18/19 03:15 98/53 12/18/19 03:10 95/55 12/18/19 03:05 87/52 12/18/19 03:00 99.4 92 21 88/52 99 Simple Mask 7.0 12/18/19 03:00 88/52 12/18/19 02:55 89/76 12/18/19 02:48 97/46 12/18/19 02:43 71/44 12/18/19 02:38 88/47 12/18/19 02:33 76/47 12/18/19 02:28 73/39 12/18/19 02:23 75/49 12/18/19 02:18 74/44 12/18/19 02:13 80/54 12/18/19 02:08 84/52 12/18/19 02:03 82/46 12/18/19 02:00 99.4 94 22 79/50 97 Simple Mask 7.0 12/18/19 01:58 79/50 12/18/19 01:57 78/46 12/18/19 01:53 79/47 12/18/19 01:48 75/44 12/18/19 01:43 73/44 12/18/19 01:00 99.4 92 19 68/53 99 Simple Mask 7.0 12/18/19 00:00 99.4 105 19 80/54 97 Non-Rebreather 10.0 12/17/19 23:34 99.4 12/17/19 23:00 102.7 106 21 80/48 98 Non-Rebreather 15.0 12/17/19 22:06 102.7 130 28 114/67 100 Non-Rebreather 15.0 12/17/19 22:06 130 28 Nasal Cannula 12.0 12/17/19 22:03 102.0 130 28 114/67 (83) 96 Nasal Cannula 12.0 Intake and Output 12/17/19 12/18/19 19:00 07:00 Intake Total 4000 ml Output Total 1300 ml Balance 2700 ml Intake Oral 0 ml IV Total 4000 ml Output Urine Total 1300 ml Laboratory Tests Test 12/17/19 22:28 12/17/19 23:38 12/18/19 04:11 12/18/19 09:25 White Blood Count 13.6 K/UL (4.8-10.8) H 22.2 K/UL (4.8-10.8) #*H Red Blood Count 3.39 M/UL (4.70-6.10) L 2.54 M/UL (4.70-6.10) L Hemoglobin 10.7 G/DL (14.2-18.0) L 8.0 G/DL (14.2-18.0) L Hematocrit 33.3 % (42.0-52.0) L 23.7 % (42.0-52.0) L Mean Corpuscular Volume 98 FL (80-99) 93 FL (80-99) Mean Corpuscular Hemoglobin 31.6 PG (27.0-31.0) H 31.5 PG (27.0-31.0) H Mean Corpuscular Hemoglobin Concent 32.2 G/DL (32.0-36.0) 33.7 G/DL (32.0-36.0) Red Cell Distribution Width 14.9 % (11.6-14.8) H 13.9 % (11.6-14.8) Platelet Count 243 K/UL (150-450) 174 K/UL (150-450) Mean Platelet Volume 7.4 FL (6.5-10.1) 7.6 FL (6.5-10.1) Neutrophils (%) (Auto) % (45.0-75.0) % (45.0-75.0) Lymphocytes (%) (Auto) % (20.0-45.0) % (20.0-45.0) Monocytes (%) (Auto) % (1.0-10.0) % (1.0-10.0) Eosinophils (%) (Auto) % (0.0-3.0) % (0.0-3.0) Basophils (%) (Auto) % (0.0-2.0) % (0.0-2.0) Differential Total Cells Counted 100 100 Neutrophils % (Manual) 64 % (45-75) 68 % (45-75) Lymphocytes % (Manual) 35 % (20-45) 2 % (20-45) L Monocytes % (Manual) 1 % (1-10) 3 % (1-10) Eosinophils % (Manual) 0 % (0-3) 1 % (0-3) Basophils % (Manual) 0 % (0-2) 0 % (0-2) Band Neutrophils 0 % (0-8) 26 % (0-8) H Platelet Estimate Adequate Adequate Platelet Morphology Normal Normal Prothrombin Time 12.7 SEC (9.30-11.50) H Prothromb Time International Ratio 1.2 (0.9-1.1) H Activated Partial Thromboplast Time 24 SEC (23-33) D-Dimer 18.87 mg/L FEU (0.00-0.49) H Sodium Level 139 MMOL/L (136-145) 142 MMOL/L (136-145) Potassium Level 4.1 MMOL/L (3.5-5.1) 4.0 MMOL/L (3.5-5.1) Chloride Level 105 MMOL/L (98-107) 113 MMOL/L (98-107) H Carbon Dioxide Level 25 MMOL/L (21-32) 20 MMOL/L (21-32) L Anion Gap 10 mmol/L (5-15) 9 mmol/L (5-15) Blood Urea Nitrogen 53 mg/dL (7-18) H 32 mg/dL (7-18) H Creatinine 1.7 MG/DL (0.55-1.30) H 1.0 MG/DL (0.55-1.30) Estimat Glomerular Filtration Rate 39.6 mL/min (>60) > 60 mL/min (>60) Glucose Level 115 MG/DL (74-106) H 94 MG/DL (74-106) Lactic Acid Level 2.80 mmol/L (0.4-2.0) H 4.30 mmol/L (0.66-2.22) H Calcium Level 9.4 MG/DL (8.5-10.1) 7.7 MG/DL (8.5-10.1) L Ferritin 569 NG/ML (8-388) H Total Bilirubin 0.5 MG/DL (0.2-1.0) Aspartate Amino Transf (AST/SGOT) 28 U/L (15-37) Alanine Aminotransferase (ALT/SGPT) 27 U/L (12-78) Alkaline Phosphatase 103 U/L (46-116) Lactate Dehydrogenase 203 U/L (81-234) Total Creatine Kinase 83 U/L (26-308) Creatine Kinase MB 0.7 NG/ML (0.0-3.6) Creatine Kinase MB Relative Index 0.8 Troponin I 0.026 ng/mL (0.000-0.056) C-Reactive Protein, Quantitative 4.2 mg/dL (0.00-0.90) H Pro-B-Type Natriuretic Peptide 780 pg/mL (0-125) H Total Protein 8.5 G/DL (6.4-8.2) H Albumin 3.3 G/DL (3.4-5.0) L 2.2 G/DL (3.4-5.0) L Globulin 5.2 g/dL Albumin/Globulin Ratio 0.6 (1.0-2.7) L Lipase 86 U/L (73-393) Urine Color Pale yellow Urine Appearance Cloudy Urine pH 9 (4.5-8.0) Urine Specific [place] 1.010 (1.005-1.035) Urine Protein 2+ (NEGATIVE) H Urine Glucose (UA) Negative (NEGATIVE) Urine Ketones Negative (NEGATIVE) Urine Blood 5+ (NEGATIVE) H Urine Nitrite Positive (NEGATIVE) H Urine Bilirubin Negative (NEGATIVE) Urine Urobilinogen Normal MG/DL (0.0-1.0) Urine Leukocyte Esterase 3+ (NEGATIVE) H Urine RBC 60-80 /HPF (0 - 0) H Urine WBC 5-10 /HPF (0 - 0) H Urine Squamous Epithelial Cells Occasional /LPF Urine Bacteria Many /HPF (NONE) H Hypochromasia 2+ Anisocytosis 1+ Phosphorus Level 2.8 MG/DL (2.5-4.9) Test 12/18/19 13:55 Lactic Acid Level 1.30 mmol/L (0.4-2.0) Microbiology Date/Time Source Procedure Growth Status 12/17/19 23:30 Nasopharynx SARS-CoV-2 RdRp Gene Assay - Final Complete Height (Feet): 5 Height (Inches): 4.00 Weight (Pounds): 140 Medications Current Medications Medications (Trade) Dose Ordered Sig/Altagracia Route PRN Reason Start Time Stop Time Status Last Admin Dose Admin Acetaminophen (Tylenol) 650 mg Q4H PRN ORAL Fever 10/4/20 05:15 01/17/20 05:14 Albuterol/ Ipratropium (Albuterol/ Ipratropium) 3 ml Q6H PRN HHN Shortness of Breath 12/18/19 05:45 12/23/19 05:44 Dextrose (Dextrose 50%) 25 ml Q30M PRN IV Hypoglycemia 12/18/19 05:15 03/17/20 05:14 Dextrose (Dextrose 50%) 50 ml Q30M PRN IV Hypoglycemia 12/18/19 05:15 03/17/20 05:14 Doxazosin Mesylate (Cardura) 1 mg DAILY GT 12/18/19 09:00 01/17/20 08:59 12/18/19 09:24 Ergocalciferol (Drisdol) 50,000 intlu ONCE A WEEK ORAL 12/19/19 09:00 01/18/20 08:59 Finasteride (Proscar) 5 mg DAILY ORAL 12/18/19 09:00 03/17/20 08:59 12/18/19 09:24 Heparin Sodium (Porcine) (Heparin 5000 units/ml) 5,000 units EVERY 12 HOURS SUBQ 12/18/19 09:00 02/01/20 08:59 12/18/19 09:25 Insulin Aspart (NovoLOG) BEFORE MEALS AND HS SUBQ 12/18/19 06:30 03/17/20 06:29 Isoniazid (Inh) 300 mg DAILY GT 12/18/19 09:00 01/17/20 08:59 12/18/19 09:24 Lactobacillus Acidophilus (Culturelle) 1 tab TWICE A DAY GT 12/18/19 09:00 03/17/20 08:59 12/18/19 09:24 Meropenem 1 gm/ Sodium Chloride 100 ml @ 200 mls/hr Q8HR IVPB 12/18/19 15:00 12/23/19 14:59 12/18/19 15:12 Norepinephrine Bitartrate 4 mg/ Dextrose 250 ml @ 0 mls/hr Q24H IV 12/18/19 05:15 12/21/19 05:14 12/18/19 05:35 Ondansetron HCl (Zofran) 4 mg Q6H PRN IVP Nausea & Vomiting 12/18/19 05:15 01/17/20 05:14 Pantoprazole (Protonix) 40 mg EVERY 12 HOURS IVP 12/18/19 21:00 01/17/20 20:59 Pyridoxine HCl (Vitamin B6) 50 mg DAILY GT 12/18/19 09:00 01/17/20 08:59 12/18/19 09:24 Sodium Chloride 1,000 ml @ 100 mls/hr Q10H IVLG 12/18/19 06:00 01/17/20 05:59 12/18/19 06:54 Vancomycin HCl (Vanco pharmacy to dose) 1 ea DAILY PRN MISC PER RX PROTOCOL 12/18/19 06:45 01/17/20 06:44 Vancomycin HCl 750 mg/Sodium Chloride 275 ml @ 183.333 mls/hr Q24H IVPB 12/19/19 10:00 12/24/19 09:59 Assessment/Plan Problem List: (1) COPD (chronic obstructive pulmonary disease) ICD Codes: J44.9 - Chronic obstructive pulmonary disease, unspecified SNOMED: 13879795 Qualifiers: Qualified Codes: J44.9 - Chronic obstructive pulmonary disease, unspecified (2) Septic shock Assessment & Plan: Leukocytosis, anemia, lactic acidosis. COVID negative. Afebrile, hypotensive improved with fluid resuscitation off pressors now. UTI on antibiotics Still with significant wounds malnutrition requiring prolonged care. No acute surgical invention at this time Okay to resume tube feeds as tolerated IV fluids Urine output monitoring A.m. labs Imaging reviewed We will follow with recommendations thank you for your participation's care Pt presented on admission with multiple Pressure Injuries, and contractures.L side trunk from L axilla to L hip noted to have a maroon discoloration. DTPI L Hip. Base of wound is maroon with surrounding non-blanchable erythema(L)5.5cm x (W)12.8cm. DTPI R lumbar(L04cm x (W)2.5cm. Base of wound is maroon and indurated. DTPI L trochanter(L)10cm x (W)10.5cm. Base of wound is purpuric with surrounding maroon borders. DTPI R trochanteric(L)9cm x (W)7.5cm. Base of wound is maroon and indurated. Surrounding darker skin tone without induration. DTPI Sacrum(L)9.5cm x (W)14cm. Base of wound is maroon with purpuric and indurated area at Sacrococcygeal area. Surrounding dry scaly skin with scattered dried lesions. Darker skin tone without induration or fluctuance R and L ischial tuberosities. Both heels are boggy and pale with dry peeling skin. Non-Blanching erythema without fluctuance/induration medial L foot ,in close proximity to malleolus(L)1.5cm x (W)1.5cm. Non-Blanching erythema medial R foot (L)2cm x (W)1.3cm. Non-Blanching erythema R Hallux. Base of wound is fluctuant(L)2cm x (W)2.5cm. Unstageable Pressure injury distal/lateral R foot(L)2.2cm x (W)3.8cm. Soft necrosis with surrounding non-blanchable erythema with fluctuance. Unstageable Pressure injury dorsal R4th metatarsal(L)1.4cm x (W)1.9cm. Base of wound is purpuric with marginal erythema along borders. Tx.Plan: Apply Moisture Barrier Paste to Sacrum. Cover with Optifoam drsg. Change every 3 days and prn. Apply Cavilon Skin Barrier to L HIP and L trochanteric. Cover each site with Optifoam drsg. Change every 7 days and prn. Apply Cavilon Skin Barrier to R trochanteric ,R lumbar. Cover each site with Optifoam drsg. Change every 7 days and prn. Apply Betadine to affected areas R and L foot. Cover each site with Optifoam drsgs. Change every 3 days and prn. Reposition at least every 2hours or as tolerated. Off-load heels with pillow. APM/RAVINDER Mattress overlay ICD Codes: A41.9 - Sepsis, unspecified organism; R65.21 - Severe sepsis with septic shock SNOMED: 05665592 (3) Septic shock ICD Codes: A41.9 - Sepsis, unspecified organism; R65.21 - Severe sepsis with septic shock SNOMED: 27700836 (4) Hematemesis ICD Codes: K92.0 - Hematemesis SNOMED: 6685619 (5) Bacteremia ICD Codes: R78.81 - Bacteremia SNOMED: 3499261 (6) Latent tuberculosis ICD Codes: Z22.7 - Latent tuberculosis SNOMED: 27723465 (7) Abnormal laboratory test result ICD Codes: R89.9 - Unspecified abnormal finding in specimens from other organs, systems and tissues SNOMED: 163340003 (8) Do not intubate, cardiopulmonary resuscitation (CPR)-only code status ICD Codes: Z78.9 - Other specified health status SNOMED: 565554113 (9) wound (10) Hematuria ICD Codes: R31.9 - Hematuria, unspecified SNOMED: 99604607 (11) Fecal impaction ICD Codes: K56.41 - Fecal impaction SNOMED: 73084051 (12) Rhabdomyolysis ICD Codes: M62.82 - Rhabdomyolysis SNOMED: 890269188 (13) GI bleed ICD Codes: K92.2 - Gastrointestinal hemorrhage, unspecified SNOMED: 03497435 (14) Encounter for PEG (percutaneous endoscopic gastrostomy) ICD Codes: Z43.1 - Encounter for attention to gastrostomy SNOMED: 669831593, 958820446 (15) BRYANT (acute kidney injury) ICD Codes: N17.9 - Acute kidney failure, unspecified SNOMED: 7930420, 20269720 (16) Urinary retention ICD Codes: R33.9 - Retention of urine, unspecified SNOMED: 967445286 (17) Bladder calculi ICD Codes: N21.0 - Calculus in bladder SNOMED: 10358234 (18) Proteinuria ICD Codes: R80.9 - Proteinuria, unspecified SNOMED: 36579795 (19) Altered mental status ICD Codes: R41.82 - Altered mental status, unspecified SNOMED: 824683881 (20) Electrolyte imbalance ICD Codes: E87.8 - Other disorders of electrolyte and fluid balance, not elsewhere classified SNOMED: 318458536 (21) Hypertension ICD Codes: I10 - Essential (primary) hypertension SNOMED: 72415420 (22) Pneumonia ICD Codes: J18.9 - Pneumonia, unspecified organism SNOMED: 087888938 (23) Severe sepsis ICD Codes: A41.9 - Sepsis, unspecified organism; R65.20 - Severe sepsis without septic shock SNOMED: 26150561 (24) Frequent PVCs ICD Codes: I49.3 - Ventricular premature depolarization SNOMED: 39291276 (25) Hypokalemia ICD Codes: E87.6 - Hypokalemia SNOMED: 73387340 (26) UTI (urinary tract infection) ICD Codes: N39.0 - Urinary tract infection, site not specified SNOMED: 21035628 (27) Elevated LFTs ICD Codes: R94.5 - Abnormal results of liver function studies SNOMED: 891252768, 011452631 (28) Dehydration ICD Codes: E86.0 - Dehydration SNOMED: 09645743 (29) Decubitus skin ulcer ICD Codes: L89.90 - Pressure ulcer of unspecified site, unspecified stage SNOMED: 156500239 (30) UTI (urinary tract infection) ICD Codes: N39.0 - UTI (urinary tract infection) SNOMED: 81405784 Qualifiers: Qualified Codes: N39.0 - Urinary tract infection, site not specified (31) Suspected COVID-19 virus infection ICD Codes: Z20.828 - Contact with and (suspected) exposure to other viral c ommunicable diseases SNOMED: 026305177 (32) BPH (benign prostatic hyperplasia) ICD Codes: N40.0 - Benign prostatic hyperplasia without lower urinary tract symptoms SNOMED: 549367738 (33) Hyponatremia ICD Codes: E87.1 - Hypo-osmolality and hyponatremia SNOMED: 02048980 (34) Severe malnutrition ICD Codes: E43 - Unspecified severe protein-calorie malnutrition SNOMED: 37264360 (35) Failure to thrive syndrome, adult ICD Codes: R62.7 - Failure to thrive syndrome, adult SNOMED: 720739687 (36) Sepsis ICD Codes: A41.9 - Sepsis, unspecified organism SNOMED: 29686143 Reji Guy Dec 18, 2019 16:16
--- NOTE | 2019-12-18 17:39 | Cardiac Electrophysiology PN ---
Subjective Subjective [id number] Objective Last 24 Hour Vital Signs Date Time Temp Pulse Resp B/P (MAP) Pulse Ox O2 Delivery O2 Flow Rate FiO2 12/18/19 16:00 Non-Rebreather 12/18/19 16:00 99.8 92 23 97/62 (74) 99 12/18/19 15:00 90 25 116/66 (83) 97 12/18/19 14:00 87 22 94/60 (71) 100 12/18/19 13:00 95 20 108/80 (89) 93 12/18/19 12:00 94 12/18/19 12:00 99.9 91 30 95/59 (71) 98 12/18/19 12:00 Non-Rebreather 12/18/19 11:00 93 23 108/61 (77) 98 12/18/19 10:00 91 21 94/60 (71) 100 12/18/19 09:11 100.0 12/18/19 09:07 82 12/18/19 09:04 99.7 78 17 83/55 (64) 100 12/18/19 09:02 Non-Rebreather 5.0 12/18/19 08:05 99.4 90 19 106/63 100 Simple Mask 4.0 12/18/19 06:00 99.4 89 20 101/61 100 Simple Mask 5.0 12/18/19 05:35 86/53 12/18/19 05:05 107/63 12/18/19 05:00 99.4 99 19 92/55 100 Simple Mask 5.0 12/18/19 04:35 62/41 12/18/19 04:21 84 19 100 Simple Mask 5.0 12/18/19 04:10 91 21 98 Simple Mask 5.0 12/18/19 04:05 94/58 12/18/19 04:00 99.4 100 21 112/59 99 Simple Mask 7.0 12/18/19 03:55 106/62 12/18/19 03:50 96/58 12/18/19 03:25 105/55 12/18/19 03:20 146/63 12/18/19 03:15 98/53 12/18/19 03:10 95/55 12/18/19 03:05 87/52 12/18/19 03:00 99.4 92 21 88/52 99 Simple Mask 7.0 12/18/19 03:00 88/52 12/18/19 02:55 89/76 12/18/19 02:48 97/46 12/18/19 02:43 71/44 12/18/19 02:38 88/47 12/18/19 02:33 76/47 12/18/19 02:28 73/39 12/18/19 02:23 75/49 12/18/19 02:18 74/44 12/18/19 02:13 80/54 12/18/19 02:08 84/52 12/18/19 02:03 82/46 12/18/19 02:00 99.4 94 22 79/50 97 Simple Mask 7.0 12/18/19 01:58 79/50 12/18/19 01:57 78/46 12/18/19 01:53 79/47 12/18/19 01:48 75/44 12/18/19 01:43 73/44 12/18/19 01:00 99.4 92 19 68/53 99 Simple Mask 7.0 12/18/19 00:00 99.4 105 19 80/54 97 Non-Rebreather 10.0 12/17/19 23:34 99.4 12/17/19 23:00 102.7 106 21 80/48 98 Non-Rebreather 15.0 12/17/19 22:06 102.7 130 28 114/67 100 Non-Rebreather 15.0 12/17/19 22:06 130 28 Nasal Cannula 12.0 12/17/19 22:03 102.0 130 28 114/67 (83) 96 Nasal Cannula 12.0 Intake and Output 12/17/19 12/18/19 19:00 07:00 Intake Total 4000 ml Output Total 1300 ml Balance 2700 ml Intake Oral 0 ml IV Total 4000 ml Output Urine Total 1300 ml Laboratory Tests Test 12/17/19 22:28 12/17/19 23:38 12/18/19 04:11 12/18/19 09:25 White Blood Count 13.6 K/UL (4.8-10.8) H 22.2 K/UL (4.8-10.8) #*H Red Blood Count 3.39 M/UL (4.70-6.10) L 2.54 M/UL (4.70-6.10) L Hemoglobin 10.7 G/DL (14.2-18.0) L 8.0 G/DL (14.2-18.0) L Hematocrit 33.3 % (42.0-52.0) L 23.7 % (42.0-52.0) L Mean Corpuscular Volume 98 FL (80-99) 93 FL (80-99) Mean Corpuscular Hemoglobin 31.6 PG (27.0-31.0) H 31.5 PG (27.0-31.0) H Mean Corpuscular Hemoglobin Concent 32.2 G/DL (32.0-36.0) 33.7 G/DL (32.0-36.0) Red Cell Distribution Width 14.9 % (11.6-14.8) H 13.9 % (11.6-14.8) Platelet Count 243 K/UL (150-450) 174 K/UL (150-450) Mean Platelet Volume 7.4 FL (6.5-10.1) 7.6 FL (6.5-10.1) Neutrophils (%) (Auto) % (45.0-75.0) % (45.0-75.0) Lymphocytes (%) (Auto) % (20.0-45.0) % (20.0-45.0) Monocytes (%) (Auto) % (1.0-10.0) % (1.0-10.0) Eosinophils (%) (Auto) % (0.0-3.0) % (0.0-3.0) Basophils (%) (Auto) % (0.0-2.0) % (0.0-2.0) Differential Total Cells Counted 100 100 Neutrophils % (Manual) 64 % (45-75) 68 % (45-75) Lymphocytes % (Manual) 35 % (20-45) 2 % (20-45) L Monocytes % (Manual) 1 % (1-10) 3 % (1-10) Eosinophils % (Manual) 0 % (0-3) 1 % (0-3) Basophils % (Manual) 0 % (0-2) 0 % (0-2) Band Neutrophils 0 % (0-8) 26 % (0-8) H Platelet Estimate Adequate Adequate Platelet Morphology Normal Normal Prothrombin Time 12.7 SEC (9.30-11.50) H Prothromb Time International Ratio 1.2 (0.9-1.1) H Activated Partial Thromboplast Time 24 SEC (23-33) D-Dimer 18.87 mg/L FEU (0.00-0.49) H Sodium Level 139 MMOL/L (136-145) 142 MMOL/L (136-145) Potassium Level 4.1 MMOL/L (3.5-5.1) 4.0 MMOL/L (3.5-5.1) Chloride Level 105 MMOL/L (98-107) 113 MMOL/L (98-107) H Carbon Dioxide Level 25 MMOL/L (21-32) 20 MMOL/L (21-32) L Anion Gap 10 mmol/L (5-15) 9 mmol/L (5-15) Blood Urea Nitrogen 53 mg/dL (7-18) H 32 mg/dL (7-18) H Creatinine 1.7 MG/DL (0.55-1.30) H 1.0 MG/DL (0.55-1.30) Estimat Glomerular Filtration Rate 39.6 mL/min (>60) > 60 mL/min (>60) Glucose Level 115 MG/DL (74-106) H 94 MG/DL (74-106) Lactic Acid Level 2.80 mmol/L (0.4-2.0) H 4.30 mmol/L (0.66-2.22) H Calcium Level 9.4 MG/DL (8.5-10.1) 7.7 MG/DL (8.5-10.1) L Ferritin 569 NG/ML (8-388) H Total Bilirubin 0.5 MG/DL (0.2-1.0) Aspartate Amino Transf (AST/SGOT) 28 U/L (15-37) Alanine Aminotransferase (ALT/SGPT) 27 U/L (12-78) Alkaline Phosphatase 103 U/L (46-116) Lactate Dehydrogenase 203 U/L (81-234) Total Creatine Kinase 83 U/L (26-308) Creatine Kinase MB 0.7 NG/ML (0.0-3.6) Creatine Kinase MB Relative Index 0.8 Troponin I 0.026 ng/mL (0.000-0.056) C-Reactive Protein, Quantitative 4.2 mg/dL (0.00-0.90) H Pro-B-Type Natriuretic Peptide 780 pg/mL (0-125) H Total Protein 8.5 G/DL (6.4-8.2) H Albumin 3.3 G/DL (3.4-5.0) L 2.2 G/DL (3.4-5.0) L Globulin 5.2 g/dL Albumin/Globulin Ratio 0.6 (1.0-2.7) L Lipase 86 U/L (73-393) Urine Color Pale yellow Urine Appearance Cloudy Urine pH 9 (4.5-8.0) Urine Specific [place] 1.010 (1.005-1.035) Urine Protein 2+ (NEGATIVE) H Urine Glucose (UA) Negative (NEGATIVE) Urine Ketones Negative (NEGATIVE) Urine Blood 5+ (NEGATIVE) H Urine Nitrite Positive (NEGATIVE) H Urine Bilirubin Negative (NEGATIVE) Urine Urobilinogen Normal MG/DL (0.0-1.0) Urine Leukocyte Esterase 3+ (NEGATIVE) H Urine RBC 60-80 /HPF (0 - 0) H Urine WBC 5-10 /HPF (0 - 0) H Urine Squamous Epithelial Cells Occasional /LPF Urine Bacteria Many /HPF (NONE) H Hypochromasia 2+ Anisocytosis 1+ Phosphorus Level 2.8 MG/DL (2.5-4.9) Test 12/18/19 13:55 Lactic Acid Level 1.30 mmol/L (0.4-2.0) Microbiology Date/Time Source Procedure Growth Status 12/17/19 23:30 Nasopharynx SARS-CoV-2 RdRp Gene Assay - Final Complete Ismael Christine MD Dec 18, 2019 17:39
--- NOTE | 2019-12-18 19:47 | NUR ---
NURSE HAND-OFF: Important Events on Shift:[T 101.7F] Patient Status: [stable] Diet: [GTF Glucerna 1.2@ 10cc/hr] Pending Orders: [transfer to ] Pending Results/Labs:[] Pending MD notification:[] Latest Vital Signs: Temperature 101.7 , Pulse 96 , B/P 105 /62 , Respiratory Rate 23 , O2 SAT 99 , Non-Rebreather, O2 Flow Rate 100.0 . Vital Sign Comment: [] Latest Bartholomew Fall Score: 55 Fall Risk: High Risk Safety Measures: Call light Within Reach, Bed Alarm Zone 1, Side Rails Side Rails x3, Bed position Low and Locked. Fall Precautions: Report given to [ANTOINETTE Carcamo].
--- NOTE | 2019-12-18 19:48 | NUR ---
NURSE NOTES: Received patient from ANTOINETTE Menjivar. Patient is alert and oriented x0, abnormal flexion to pain, contracted upper and lower extremities. On simple face mask at 6 L, O2 sat 99%. Triple lumen cath IV site is Left IJ TLC patent and intact, Left lower Leg Intraosseous is patent and intact. G-tube is patent and intact, Glucerna 1.2 continuous 10 ml/h. Manriquez catheter patent and draining. Bed is locked, placed in lowest position, side rails up x3, bed alarm on, head of bed elevated for aspiration precautions. Addendum: 12/18/19 at 2224 by Chantelle Carcamo RN No left leg intraosseous IV site triple lumen catheter
--- NOTE | 2019-12-18 19:49 | NUR ---
NURSE NOTES: Received patient from RN Donato Menjivar. Patient is alert and oriented x0, abnormal flexion to pain, contracted upper and lower extremities. On simple face mask at 6 L, O2 sat 99%. Triple lumen cath IV site is Left IJ TLC patent and intact, G-tube is patent and intact, Glucerna 1.2 continuous 10 ml/h. Manriquez catheter patent and draining. Bed is locked, placed in lowest position, side rails up x3, bed alarm on, head of bed elevated for aspiration precautions.
--- NOTE | 2019-12-18 20:50 | NUR ---
NURSE HAND-OFF: Important Events on Shift:[T 101.7F] Patient Status: [stable] Diet: [GTF Glucerna 1.2@ 10cc/hr] Pending Orders: [transfer to 2E ] Latest Vital Signs: 99.7, ran temp of 101.7, given tylenol Latest Bartholomew Fall Score: 55 Fall Risk: High Risk Safety Measures: Call light Within Reach, Bed Alarm Zone 1, Side Rails Side Rails x3, Bed position Low and Locked. Fall Precautions: Report given to Adia CURRY
--- NOTE | 2019-12-18 20:55 | NUR ---
TRANSFER TO FLOOR: Patient transferred to [facility], tele per Dr. Peña. Report given to Adia Dwyer RN. Medications given to oncoming nurse, IV antibiotics and insulin pen
--- NOTE | 2019-12-18 21:00 | Consultation ---
DATE OF CONSULTATION: 12/18/2019 CARDIOLOGY CONSULTATION CONSULTING PHYSICIAN: Ismael Christine MD. REFERRING PHYSICIAN: Darion Hyatt MD. REASON FOR CONSULTATION: Tachycardia and hypotension. HISTORY OF PRESENT ILLNESS: Patient is a 74-year-old gentleman who was brought in by paramedics from [facility] for low oxygen saturation and fever. Patient is nonverbal at baseline and is unable to provide any information. Patient was also tachycardic with heart rate in the 130s. Patient initially was admitted to intensive care unit and started on Levophed, but the blood pressure gradually improved to 90s. Patient was made DNR/DNI and was then transferred out of intensive care unit. REVIEW OF SYSTEMS: Cannot be obtained. PAST MEDICAL HISTORY: As mentioned above. FAMILY HISTORY: Noncontributory. SOCIAL HISTORY: He lives in a [place] [facility]. Does not smoke or drink alcohol. PHYSICAL EXAMINATION: VITAL SIGNS: Show blood pressure of 97/62, pulse is 92, respirations 18, temperature is 99.8. HEAD AND NECK: No JVD. He has a facemask on. LUNGS: Coarse rhonchi. CARDIOVASCULAR: Regular S1 and S2 and tachycardic. ABDOMEN: Soft. Status post G-tube. EXTREMITIES: Contracted. LABORATORY DATA: Labs show white count of 22.2, hemoglobin of 8, hematocrit of 23.7, platelet count 174. Sodium 142, potassium 4.0, BUN of 32, creatinine 1, and glucose of 94. Troponin is negative. ASSESSMENT AND PLAN: 1. Tachycardia due to sinus tachycardia due to sepsis with white count of 22,000. Patient is already on IV antibiotic with meropenem and vancomycin. Patient is also on INH. 2. Hypotension. Patient was initially started on Levophed with blood pressure improved to 90s, currently off pressors and transferred out of intensive care unit. 3. Advanced dementia, bedbound, nonverbal, and care dependent. 4. Dysphagia, status post PEG placement. 5. COPD. 6. Functional quadriplegia. 7. Sacral decubitus. 8. Lactic acidosis. It is of note that previous admission was 11/21/2019 just a month ago. Patient was actually hypertensive and hypernatremic and had EGD and colonoscopy for upper GI bleed in July of 2019 and history of MRSA bacteremia. Patient also had a TB exposure and was in isolation before. Currently on INH. Thank you very much for allowing me to participate in the care of this patient. Please do not hesitate to contact me for any questions regarding my evaluation. Ismael Christine M.D. DR: KATIE JOB#: [id number] CC:
[2019-12-18] MEDS: Pantoprazole Inj IVP SCH (22:04)
--- NOTE | 2019-12-18 23:42 | NUR ---
NURSE NOTES: Received patient report from ANTOINETTE Lockhart. Patient shows no signs of distress or pain at the time. Patient is AO x0 non verbal. Patient is on a simple mask 6L and saturating at 100%. Patient has a G tube running Glucerna 1.2 @10 cc/hr. Manriquez is intact and draining. Patient has IJ triple lumen running normal saline @100cc/hr. There are no signs of infection or bleeding. Bed is in the lowest position, call light is within reach, side rails up x3, and patient has been repositioned. Skin has been assessed and pictures taken.
[2019-12-19] VITALS: BP 118/63
--- NOTE | 2019-12-19 00:02 | NUR ---
NURSE NOTES: Charge Nurse ANTOINETTE Ware noticed patient is still on TB medications but no isolation has been noted for this patient. I called Dr. Torres to ask if patient should be on any isolation. I also informed of blood culture coming back with Gram negative rods. Left a message, awaiting call back.
--- NOTE | 2019-12-19 00:56 | NUR ---
NURSE NOTES: Patient has fever of 100.2. Tylenol was given.
[2019-12-19 04:00] VITALS: BP 123/77
[2019-12-19] MEDS: NovoLOG Insulin Flexpen SUBQ SCH ×4 (06:12→21:00)
--- NOTE | 2019-12-19 06:36 | Consultation ---
History of Present Illness General Chief Complaint: Dyspnea/Respdistress Reason for Consultation: BRYANT Present Illness Allergies: Coded Allergies: No Known Allergies (Unverified , 08/20/18) Medication History Scheduled Amino Acids/Protein Hydrolys (Pro-Stat Liquid), 30 ML ORAL DAILY, (Reported) Amlodipine Besylate* (Amlodipine Besylate*), 5 MG GT DAILY, (Reported) Ascorbic Acid* (Vitamin C*), 500 MG GT DAILY, (Reported) Cefepime Hcl/D5w (Cefepime-Dextrose 2 Gm/50 Ml), 2 GM IVPB Q24H Cyanocobalamin (Vitamin B-12) (Vitamin B-12), 100 MCG GT DAILY, (Reported) Doxazosin Mesylate* (Doxazosin Mesylate*), 1 MG GT DAILY, (Reported) Ergocalciferol (Vitamin D2)* (Vitamin D*), 50,000 UNIT GT ONCE A WEEK, (Reported) Finasteride* (Proscar*), 5 MG GT DAILY, (Reported) Gabapentin (Neurontin), 300 MG GT BEDTIME, (Reported) Isoniazid (Isoniazid), 300 MG GT EVERY MORNING Lactobacillus Rhamnosus Gg* (Culturelle*), 1 CAP GT DAILY, (Reported) Multivitamin With Minerals (Multivitamins With Minerals*), 1 TAB GT DAILY, (Reported) Pantoprazole Sodium (Protonix), 40 MG GT TWICE A DAY, (Reported) Pyridoxine Hcl* (Vitamin B-6*), 50 MG GT DAILY Thiamine Hcl* (Vitamin B-1*), 100 MG GT DAILY, (Reported) Vancomycin In Dextrose,Iso-Osm (Vancomycin 750 Mg/150 Ml Bag), 750 MG IV Q12HR [Iron Vitamin Liquid], 7.5 ML GT DAILY, (Reported) Scheduled PRN Ibuprofen* (Motrin*), 400 MG GT Q6HR PRN for Mild Pain (Pain Scale 1-3), (Reported) Ipratropium/Albuterol Sulfate (Iprat-Albut 0.5-3(2.5) Mg/3 Ml), 3 ML IH Q6HR PRN for Shortness of Breath, (Reported) Ondansetron* (Zofran*), 4 MG GT Q6H PRN for Nausea & Vomiting, (Reported) Tramadol Hcl* (Ultram*), 50 MG GT Q12HR PRN for MOD-SEVERE PAIN (4-10), (Reported) Miscellaneous Medications Zinc Gluconate (Zinc), 220 MG GT, (Reported) Discontinued Medications Cran/Vitc/Mannose/Inulin/Brom (Uti-Stat Liquid), 30 ML GT DAILY, (Reported) Discontinued Reason: Therapy completed Potassium Chloride (Potassium Chloride), 20 MEQ GT DAILY, (Reported) Discontinued Reason: Therapy completed Patient History Healthcare decision maker Resuscitation status Advanced Directive on File Physical Exam Last 24 Hour Vital Signs Date Time Temp Pulse Resp B/P (MAP) Pulse Ox O2 Delivery O2 Flow Rate FiO2 12/19/19 04:00 99.3 82 15 123/77 (92) 100 12/19/19 04:00 Simple Mask 6.0 12/19/19 01:23 Simple Mask 6.0 12/19/19 01:21 99.9 12/19/19 00:00 100.2 81 18 118/63 (81) 100 12/19/19 00:00 79 12/18/19 20:00 88 12/18/19 20:00 101.7 93 22 96/50 (65) 96 12/18/19 19:06 101.7 12/18/19 18:00 101.7 96 23 105/62 (76) 99 12/18/19 16:00 Non-Rebreather 12/18/19 16:00 99.8 92 23 97/62 (74) 99 12/18/19 15:00 90 25 116/66 (83) 97 12/18/19 14:00 87 22 94/60 (71) 100 12/18/19 13:00 95 20 108/80 (89) 93 12/18/19 12:00 94 12/18/19 12:00 99.9 91 30 95/59 (71) 98 12/18/19 12:00 Non-Rebreather 12/18/19 11:00 93 23 108/61 (77) 98 12/18/19 10:00 91 21 94/60 (71) 100 12/18/19 09:11 100.0 12/18/19 09:07 82 12/18/19 09:04 99.7 78 17 83/55 (64) 100 12/18/19 09:02 Non-Rebreather 5.0 12/18/19 08:05 99.4 90 19 106/63 100 Simple Mask 4.0 Intake and Output 12/18/19 12/19/19 19:00 07:00 Intake Total 370 ml 100 ml Output Total 2250 ml Balance -1880 ml 100 ml Free Water 260 ml IV Total 100 ml 100 ml Tube Feeding 10 ml Output Urine Total 2250 ml Laboratory Tests Test 12/18/19 09:25 12/18/19 13:55 12/18/19 21:58 12/19/19 05:54 White Blood Count 22.2 K/UL (4.8-10.8) #*H Red Blood Count 2.54 M/UL (4.70-6.10) L Hemoglobin 8.0 G/DL (14.2-18.0) L Hematocrit 23.7 % (42.0-52.0) L Mean Corpuscular Volume 93 FL (80-99) Mean Corpuscular Hemoglobin 31.5 PG (27.0-31.0) H Mean Corpuscular Hemoglobin Concent 33.7 G/DL (32.0-36.0) Red Cell Distribution Width 13.9 % (11.6-14.8) Platelet Count 174 K/UL (150-450) Mean Platelet Volume 7.6 FL (6.5-10.1) Neutrophils (%) (Auto) % (45.0-75.0) Lymphocytes (%) (Auto) % (20.0-45.0) Monocytes (%) (Auto) % (1.0-10.0) Eosinophils (%) (Auto) % (0.0-3.0) Basophils (%) (Auto) % (0.0-2.0) Differential Total Cells Counted 100 Neutrophils % (Manual) 68 % (45-75) Lymphocytes % (Manual) 2 % (20-45) L Monocytes % (Manual) 3 % (1-10) Eosinophils % (Manual) 1 % (0-3) Basophils % (Manual) 0 % (0-2) Band Neutrophils 26 % (0-8) H Platelet Estimate Adequate Platelet Morphology Normal Hypochromasia 2+ Anisocytosis 1+ Sodium Level 142 MMOL/L (136-145) Potassium Level 4.0 MMOL/L (3.5-5.1) Chloride Level 113 MMOL/L (98-107) H Carbon Dioxide Level 20 MMOL/L (21-32) L Anion Gap 9 mmol/L (5-15) Blood Urea Nitrogen 32 mg/dL (7-18) H Creatinine 1.0 MG/DL (0.55-1.30) Estimat Glomerular Filtration Rate > 60 mL/min (>60) Glucose Level 94 MG/DL (74-106) Calcium Level 7.7 MG/DL (8.5-10.1) L Phosphorus Level 2.8 MG/DL (2.5-4.9) Albumin 2.2 G/DL (3.4-5.0) L Lactic Acid Level 1.30 mmol/L (0.4-2.0) POC Whole Blood Glucose 84 MG/DL (74-106) Pending Height (Feet): 5 Height (Inches): 4.00 Weight (Pounds): 140 Medications Current Medications Medications (Trade) Dose Ordered Sig/Altagracia Route PRN Reason Start Time Stop Time Status Last Admin Dose Admin Acetaminophen (Tylenol) 650 mg Q4H PRN ORAL Fever 12/18/19 05:15 01/17/20 05:14 12/19/19 00:51 Albuterol/ Ipratropium (Albuterol/ Ipratropium) 3 ml Q6H PRN HHN Shortness of Breath 12/18/19 05:45 12/23/19 05:44 Dextrose (Dextrose 50%) 25 ml Q30M PRN IV Hypoglycemia 12/18/19 05:15 03/17/20 05:14 Dextrose (Dextrose 50%) 50 ml Q30M PRN IV Hypoglycemia 12/18/19 05:15 03/17/20 05:14 Doxazosin Mesylate (Cardura) 1 mg DAILY GT 12/18/19 09:00 01/17/20 08:59 12/18/19 09:24 Ergocalciferol (Drisdol) 50,000 intlu ONCE A WEEK ORAL 12/19/19 09:00 01/18/20 08:59 Finasteride (Proscar) 5 mg DAILY ORAL 12/18/19 09:00 03/17/20 08:59 12/18/19 09:24 Heparin Sodium (Porcine) (Heparin 5000 units/ml) 5,000 units EVERY 12 HOURS SUBQ 12/18/19 09:00 02/01/20 08:59 12/18/19 22:07 Insulin Aspart (NovoLOG) BEFORE MEALS AND HS SUBQ 12/18/19 06:30 03/17/20 06:29 Isoniazid (Inh) 300 mg DAILY GT 12/18/19 09:00 01/17/20 08:59 12/18/19 09:24 Lactobacillus Acidophilus (Culturelle) 1 tab TWICE A DAY GT 12/18/19 09:00 03/17/20 08:59 12/18/19 18:35 Meropenem 1 gm/ Sodium Chloride 100 ml @ 200 mls/hr Q8HR IVPB 12/18/19 15:00 12/23/19 14:59 12/19/19 06:09 Ondansetron HCl (Zofran) 4 mg Q6H PRN IVP Nausea & Vomiting 12/18/19 05:15 01/17/20 05:14 Pantoprazole (Protonix) 40 mg EVERY 12 HOURS IVP 12/18/19 21:00 01/17/20 20:59 12/18/19 22:04 Pyridoxine HCl (Vitamin B6) 50 mg DAILY GT 12/18/19 09:00 01/17/20 08:59 12/18/19 09:24 Sodium Chloride 1,000 ml @ 100 mls/hr Q10H IVLG 12/18/19 06:00 01/17/20 05:59 12/19/19 03:00 Vancomycin HCl (Vanco pharmacy to dose) 1 ea DAILY PRN MISC PER RX PROTOCOL 12/18/19 06:45 01/17/20 06:44 Vancomycin HCl 750 mg/Sodium Chloride 275 ml @ 183.333 mls/hr Q24H IVPB 12/19/19 10:00 12/24/19 09:59 Assessment/Plan Assessment/Plan: Heme Consultation REQ : Tashi Hyatt Reason for Hospitalization: Dyspnea/Respdistress RFC: ANemia, persistent HPI 73-year-old male with PMH of advanced dementia (bedbound, nonverbal, PEG dependent at baseline), dysphasia s/p PEG tube, COPD, HTN, depression, PVCs, GERD, functional quadriplegia, adult failure to thrive, sacral ulcer who presents from rehab facility for septic shock Patient admitted for further treatment and evaluation. Patient is known to this hospital. On initial evaluation he has a mild leukocytosis with a lactic acidosis of 2.8. His UA is suspected of a UTI and patient is requiring levaphed to maintain MAP>55. On abx now, with hep sq and hgb approx 8, heme consulted. Allergies: No Known Allergies (Unverified , 08/20/18) COVID-19 Screening Contact w/high risk pt: Yes Recent Travel to affected area: No Experienced COVID-19 symptoms?: Yes Coronavirus symptoms experienc: Fever (T>100.4F or >38C), Shortness of Breath Medication History Scheduled Amlodipine Besylate* (Amlodipine Besylate*), 5 MG GT DAILY, (Reported) Ascorbic Acid* (Vitamin C*), 500 MG GT DAILY, (Reported) Cefepime Hcl/D5w (Cefepime-Dextrose 2 Gm/50 Ml), 2 GM IVPB Q24H Cran/Vitc/Mannose/Inulin/Brom (Uti-Stat Liquid), 30 ML GT DAILY, (Reported) Cyanocobalamin (Vitamin B-12) (Vitamin B-12), 100 MCG GT DAILY, (Reported) Doxazosin Mesylate* (Doxazosin Mesylate*), 1 MG GT DAILY, (Reported) Ergocalciferol (Vitamin D2)* (Vitamin D*), 50,000 UNIT GT ONCE A WEEK, (Reported) Finasteride* (Proscar*), 5 MG GT DAILY, (Reported) Isoniazid (Isoniazid), 300 MG GT EVERY MORNING Lactobacillus Rhamnosus Gg* (Culturelle*), 1 CAP GT TWICE A DAY, (Reported) Pantoprazole Sodium (Protonix), 40 MG GT TWICE A DAY, (Reported) Potassium Chloride (Potassium Chloride), 20 MEQ GT DAILY, (Reported) Pyridoxine Hcl* (Vitamin B-6*), 50 MG GT DAILY Thiamine Hcl* (Vitamin B-1*), 100 MG GT DAILY, (Reported) Vancomycin In Dextrose,Iso-Osm (Vancomycin 750 Mg/150 Ml Bag), 750 MG IV Q12HR [Iron Vitamin Liquid], 7.5 ML GT DAILY, (Reported) Scheduled PRN Ibuprofen* (Motrin*), 400 MG GT Q6HR PRN for Mild Pain (Pain Scale 1-3), (Reported) Ipratropium/Albuterol Sulfate (Iprat-Albut 0.5-3(2.5) Mg/3 Ml), 3 ML IH Q6HR PRN for Shortness of Breath, (Reported) Ondansetron* (Zofran*), 4 MG GT Q6H PRN for Nausea & Vomiting, (Reported) Tramadol Hcl* (Ultram*), 50 MG GT Q12HR PRN for MOD-SEVERE PAIN (4-10), (Reported) Review of Systems General Appearance: no apparent distress, alert, confused Lines, tubes and drains: peripheral, central line HEENT: normocephalic Neck: non-tender Respiratory/Chest: lungs clear Cardiovascular/Chest: normal peripheral pulses Abdomen: normal bowel sounds, soft ++peg Extremities: normal range of motion Skin Exam: warm/dry Musculoskeletal: atrophy : ++duggan Labs: noted Imaging: reviewed Assessment and Recs # Leukocytosis due to underlying Septic shock likely due to uti --> per ID suspected UTI induced Septic shock --> pressors as needed --> f/u on cultures --> ABX vanc/néstor # Anemia rule out underlying gi bleed, egd showed recently ulcerations in blade colon --> anemia panel as needed --> hgb trend 10-->8 --> transfuse prn # 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 # BPH --> Chronic indwelling duggan. Continue proscar. # Dementia/FTT/Functional Quadriplegia, PEG tube dependent # Depression # Decubitus Ulcers/Diffuse Pressure wounds --> nutrition consulted for tube feeds --> Wound care consulted, recs appreciated # Pulm opacities --> per pulm # Nonverbal # Dementia # COPD # Dvt ppx hep Appreciate consultation and dw RN Jose Guadalupe Levine MD Dec 19, 2019 06:36
--- NOTE | 2019-12-19 06:54 | NUR ---
NURSE NOTES: Patient cleaned and changed dressings.
--- NOTE | 2019-12-19 07:25 | NUR ---
NURSE HAND-OFF REPORT: Important Events on Shift:[Patient was transferred from Med surg] Patient Status: [DNR/DNI] Diet: [Glucerna 1.2 @10 cc/hr] Pending Orders: [NA] Pending Results/Labs:NA[] Pending MD notification:[Clarify feeding orders/ POLST] Latest Vital Signs: Temperature 99.3 , Pulse 82 , B/P 123 /77 , Respiratory Rate 15 , O2 SAT 100 , Simple Mask, O2 Flow Rate 6.0 . Vital Sign Comment: [NA] EKG Rhythm: Sinus Rhythm Rhythm change?: N MD Notified?: - MD Response: Latest Bartholomew Fall Score: 55 Fall Risk: High Risk Safety Measures: Call light Within Reach, Bed Alarm Zone 3, Side Rails Side Rails x2, Bed position Low and Locked. Fall Precautions: Yellow Socks Yellow Gown Patient Fall Education Report given to [ANTOINETTE Miller].
--- NOTE | 2019-12-19 07:41 | NUR ---
NURSE NOTES: received report from ANTOINETTE Cheek. pt is AOx0, stable on simple facemask 6LPM. Pt has no s/s or complaint of distress at this time. Bed low and locked, call light in reach and bed alarm on. Pt wounds noted and opitofma applied. pt has IJ on the L, tripple lumen running ns at 100cc, asynptomatic and intact. Pt on gtube running 10xx glucerna 1.2.
[2019-12-19 08:00] VITALS: BP 128/65
[2019-12-19 08:08] LABS: ALBUMIN 2.4 G/DL (3.4-5.0); ALBUMIN/GLOBULIN RATIO 0.6 (1.0-2.7); ALKALINE PHOSPHATASE 69 U/L (46-116); ANION GAP 9 mmol/L (5-15); ASPARTATE AMINO TRANSFERASE 50 U/L (15-37); BILIRUBIN,TOTAL 0.4 MG/DL (0.2-1.0); BLOOD UREA NITROGEN 17 mg/dL (7-18); CALCIUM 8.5 MG/DL (8.5-10.1); CARBON DIOXIDE 21 MMOL/L (21-32); CHLORIDE 112 MMOL/L (98-107); CREATININE 0.9 MG/DL (0.55-1.30); POTASSIUM 3.7 MMOL/L (3.5-5.1); SODIUM 142 MMOL/L (136-145)
[2019-12-19] MEDS ORDERED: Vitamin D 50,000 units cap ORAL SCH (09:00)
[2019-12-19] MEDS: Vancomycin 750mg/NS 275ml IVPB SCH ×2 (09:21)
[2019-12-19] MEDS: Pantoprazole Inj IVP SCH ×2 (09:21→21:16)
[2019-12-19] MEDS: Pyridoxine 50mg tab GT SCH (09:22)
[2019-12-19] MEDS: Doxazosin 1mg Tab GT SCH (09:22)
[2019-12-19] MEDS: Lactobacillus-GG tablet GT SCH ×2 (09:23→18:16)
[2019-12-19] MEDS: Isoniazid 300mg tab GT SCH (09:23)
[2019-12-19] MEDS: Heparin 5000 units/ml inj SUBQ SCH ×2 (09:25→21:00)
--- NOTE | 2019-12-19 09:26 | NUR ---
NURSE NOTES: Skin/wound assessment:Patient seen by for wound consult. Left lateral foot DTI pressure ulcer 1.2x0.8x0.1 purple/red color with no drainage matty wound dry skin intact betadine and optifoam applied. Right lateral foot callus noted intact skin optifoam applied.Left hip stage 1 pressure ulcer 3.0x2.0x0.0 with dark red nonblanchable skin skin barrier and optifoam applied.Right Hip stage 1 pressure ulcer 5.0x5.0x0.0 darkend red nonblanchable skin barrier and optifoam applied.Left elbow stage 2 pressure ulcer 0.3x0.7x0.2 pink wound bed scant serosanguineous drainage skin barrier and optifoam applied.Sacral stage 1 pressure ulcer 6.5x6.0x0.0 dark red nonblanchable skin barrier and opitfoam applied.Patient is contracted pillow applied between legs and heels offloaded .Order for air mattress by wound physician.
[2019-12-19 09:55] LABS: HEMATOCRIT 24.6 % (42.0-52.0); HEMOGLOBIN 8.2 G/DL (14.2-18.0); MEAN CORPUSCULAR VOLUME 95 FL (80-99); PLATELET COUNT 134 K/UL (150-450); RED CELL DISTRIBUTION WIDTH 14.3 % (11.6-14.8); WHITE BLOOD COUNT 20.5 K/UL (4.8-10.8)
[2019-12-19] MEDS ORDERED: VANCOMYCIN IVPB SCH (10:00)
[2019-12-19] MEDS ORDERED: D5W IVPB SCH (10:00)
--- NOTE | 2019-12-19 10:11 | Nephrology Progress Note ---
Assessment/Plan Plan #BRYANT due to pre- renal azotemia in the setting of sepsis - r/o ATN #septic shock due to UTI #advanced dementia (bedbound, nonverbal, PEG dependent at baseline) #dysphasia s/p PEG tube #COPD #HTN #Depression - continue IVF - antibiotics - monitor vanco level closely - pressors to maintain MAP> 65 - hold antihypetensives - further work up if no improvement in renal function with hydration Subjective ROS Limited/Unobtainable: Yes Subjective Cr improved vitals stable transferred out of ICU Objective Objective Last 24 Hour Vital Signs Date Time Temp Pulse Resp B/P (MAP) Pulse Ox O2 Delivery O2 Flow Rate FiO2 12/19/19 08:00 70 12/19/19 08:00 Simple Mask 6.0 12/19/19 04:00 99.3 82 15 123/77 (92) 100 12/19/19 04:00 Simple Mask 6.0 12/19/19 01:23 Simple Mask 6.0 12/19/19 01:21 99.9 12/19/19 00:00 100.2 81 18 118/63 (81) 100 12/19/19 00:00 79 12/18/19 20:00 88 12/18/19 20:00 101.7 93 22 96/50 (65) 96 12/18/19 19:06 101.7 12/18/19 18:00 101.7 96 23 105/62 (76) 99 12/18/19 16:00 Non-Rebreather 12/18/19 16:00 99.8 92 23 97/62 (74) 99 12/18/19 15:00 90 25 116/66 (83) 97 12/18/19 14:00 87 22 94/60 (71) 100 12/18/19 13:00 95 20 108/80 (89) 93 12/18/19 12:00 94 12/18/19 12:00 99.9 91 30 95/59 (71) 98 12/18/19 12:00 Non-Rebreather 12/18/19 11:00 93 23 108/61 (77) 98 Intake and Output 12/18/19 12/19/19 19:00 07:00 Intake Total 370 ml 700 ml Output Total 2250 ml Balance -1880 ml 700 ml Free Water 260 ml IV Total 100 ml 700 ml Tube Feeding 10 ml Output Urine Total 2250 ml Laboratory Tests 12/18/19 13:55: Lactic Acid Level 1.30 12/18/19 21:58: POC Whole Blood Glucose 84 12/19/19 05:54: POC Whole Blood Glucose [Pending] 12/19/19 06:44: White Blood Count 20.5H, Red Blood Count 2.60L, Hemoglobin 8.2L, Hematocrit 24.6L, Mean Corpuscular Volume 95, Mean Corpuscular Hemoglobin 31.5H, Mean Corpuscular Hemoglobin Concent 33.4, Red Cell Distribution Width 14.3, Platelet Count 134L, Mean Platelet Volume 7.9, Neutrophils (%) (Auto) , Lymphocytes (%) (Auto) , Monocytes (%) (Auto) , Eosinophils (%) (Auto) , Basophils (%) (Auto) , Neutrophils % (Manual) [Pending], Lymphocytes % (Manual) [Pending], Platelet Estimate [Pending], Platelet Morphology [Pending], Sodium Level 142, Potassium Level 3.7, Chloride Level 112H, Carbon Dioxide Level 21, Anion Gap 9, Blood Urea Nitrogen 17, Creatinine 0.9, Estimat Glomerular Filtration Rate > 60, Glucose Level 82, Calcium Level 8.5, Ferritin 813H, Total Bilirubin 0.4, Aspartate Amino Transf (AST/SGOT) 50H, Alanine Aminotransferase (ALT/SGPT) [Pending], Alkaline Phosphatase 69, Troponin I 0.310H, Total Protein 6.7, Albumin 2.4L, Globulin 4.3, Albumin/Globulin Ratio 0.6L, Prostate Specific Antigen 4.21H Height (Feet): 5 Height (Inches): 4.00 Weight (Pounds): 140 Objective General Appearance: no apparent distress, alert, confused Lines, tubes and drains: peripheral, central line HEENT: normocephalic Neck: non-tender Respiratory/Chest: lungs clear Cardiovascular/Chest: normal peripheral pulses, normal rate, regular rhythm Abdomen: normal bowel sounds, soft Extremities: normal range of motion Skin Exam: warm/dry Musculoskeletal: atrophy Jelani Sauer M.D. Dec 19, 2019 10:11
[2019-12-19 10:31] LABS: ALANINE AMINOTRANSFERASE 24 U/L (12-78)
--- NOTE | 2019-12-19 10:43 | General Progress Note ---
Subjective Date patient seen: Dec 19, 2019 Time patient seen: 08:50 ROS Limited/Unobtainable: Yes - No verbal pateint Allergies: Coded Allergies: No Known Allergies (Unverified , 08/20/18) Subjective Patient non verbal but in no apparent pain or distress Objective Last 24 Hour Vital Signs Date Time Temp Pulse Resp B/P (MAP) Pulse Ox O2 Delivery O2 Flow Rate FiO2 12/19/19 08:00 70 12/19/19 08:00 Simple Mask 6.0 12/19/19 04:00 99.3 82 15 123/77 (92) 100 12/19/19 04:00 Simple Mask 6.0 12/19/19 01:23 Simple Mask 6.0 12/19/19 01:21 99.9 12/19/19 00:00 100.2 81 18 118/63 (81) 100 12/19/19 00:00 79 12/18/19 20:00 88 12/18/19 20:00 101.7 93 22 96/50 (65) 96 12/18/19 19:06 101.7 12/18/19 18:00 101.7 96 23 105/62 (76) 99 12/18/19 16:00 Non-Rebreather 12/18/19 16:00 99.8 92 23 97/62 (74) 99 12/18/19 15:00 90 25 116/66 (83) 97 12/18/19 14:00 87 22 94/60 (71) 100 12/18/19 13:00 95 20 108/80 (89) 93 12/18/19 12:00 94 12/18/19 12:00 99.9 91 30 95/59 (71) 98 12/18/19 12:00 Non-Rebreather 12/18/19 11:00 93 23 108/61 (77) 98 Intake and Output 12/18/19 12/19/19 19:00 07:00 Intake Total 370 ml 700 ml Output Total 2250 ml Balance -1880 ml 700 ml Free Water 260 ml IV Total 100 ml 700 ml Tube Feeding 10 ml Output Urine Total 2250 ml Laboratory Tests 12/18/19 13:55: Lactic Acid Level 1.30 12/18/19 21:58: POC Whole Blood Glucose 84 12/19/19 05:54: POC Whole Blood Glucose [Pending] 12/19/19 06:44: White Blood Count 20.5H, Red Blood Count 2.60L, Hemoglobin 8.2L, Hematocrit 24.6L, Mean Corpuscular Volume 95, Mean Corpuscular Hemoglobin 31.5H, Mean Corpuscular Hemoglobin Concent 33.4, Red Cell Distribution Width 14.3, Platelet Count 134L, Mean Platelet Volume 7.9, Neutrophils (%) (Auto) , Lymphocytes (%) (Auto) , Monocytes (%) (Auto) , Eosinophils (%) (Auto) , Basophils (%) (Auto) , Neutrophils % (Manual) [Pending], Lymphocytes % (Manual) [Pending], Platelet Estimate [Pending], Platelet Morphology [Pending], Sodium Level 142, Potassium Level 3.7, Chloride Level 112H, Carbon Dioxide Level 21, Anion Gap 9, Blood Urea Nitrogen 17, Creatinine 0.9, Estimat Glomerular Filtration Rate > 60, Glucose Level 82, Calcium Level 8.5, Ferritin 813H, Total Bilirubin 0.4, Aspartate Amino Transf (AST/SGOT) 50H, Alanine Aminotransferase (ALT/SGPT) [Pending], Alkaline Phosphatase 69, Troponin I 0.310H, Total Protein 6.7, Albumin 2.4L, Globulin 4.3, Albumin/Globulin Ratio 0.6L, Prostate Specific Antigen 4.21H Height (Feet): 5 Height (Inches): 4.00 Weight (Pounds): 140 General Appearance: no apparent distress, lethargic, confused, thin EENT: PERRL/EOMI, normal ENT inspection Neck: normal alignment, normal inspection, other - has righ IJ central line Cardiovascular: normal rate, regular rhythm, no gallop/murmur, no JVD Respiratory/Chest: chest wall non-tender, lungs clear, no respiratory distress, no accessory muscle use Abdomen: non tender, soft, no organomegaly, no mass Pelvis: normal external exam Extremities: other - paralysis and amputations Edema: no edema noted Arm (L), no edema noted Arm (R), no edema noted Leg (L), no edema noted Leg (R), no edema noted Pedal (L), no edema noted Pedal (R), no edema noted Generalized Neurologic: motor weakness, sensory deficit, disoriented, aphasia, depressed affect Skin: normal pigmentation, warm/dry, no diaphoresis Assessment/Plan Problem List: (1) Septic shock ICD Codes: A41.9 - Sepsis, unspecified organism; R65.21 - Severe sepsis with septic shock SNOMED: 39190939 (2) Latent tuberculosis ICD Codes: Z22.7 - Latent tuberculosis SNOMED: 79443808 (3) UTI (urinary tract infection) ICD Codes: N39.0 - Urinary tract infection, site not specified SNOMED: 83060718 (4) Decubitus skin ulcer ICD Codes: L89.90 - Pressure ulcer of unspecified site, unspecified stage SNOMED: 657189197 (5) Failure to thrive syndrome, adult ICD Codes: R62.7 - Failure to thrive syndrome, adult SNOMED: 009139431 (6) Severe malnutrition ICD Codes: E43 - Unspecified severe protein-calorie malnutrition SNOMED: 27729570 (7) Hypertension ICD Codes: I10 - Essential (primary) hypertension SNOMED: 67177823 (8) COPD (chronic obstructive pulmonary disease) ICD Codes: J44.9 - Chronic obstructive pulmonary disease, unspecified SNOMED: 21737601 Qualifiers: Qualified Codes: J44.9 - Chronic obstructive pulmonary disease, unspecified (9) Elevated troponin ICD Codes: R77.8 - Other specified abnormalities of plasma proteins SNOMED: 039828420, 543958542, 555876848 Assessment/Plan: 73-year-old male with PMH of advanced dementia (bedbound, nonverbal, PEG dependent at baseline), dysphasia s/p PEG tube, COPD, HTN, depression, PVCs, GERD, functional quadriplegia, adult failure to thrive, sacral ulcer who presents from rehab facility for septic shock. #Septic Shock 2/2 Complicated UTI -Off Levophed now and BP remains over MAP 65 -On meropenem and Vancmycin -Follow up blood cultures and urine cultures -Lactate normalized -Manriquez care -Consult to ID - apprciate recs #Multiple decubitus Ulcers -Evaluated by General surgery and does not appear to be source of sepsis -Wound care - Offloading #COPD exacerbation #Hypoxia -CXR reviewed -Supplemental oxygen to keep O2 88-92% in setting of COPD -Consult to pulmonology #Latent TB -4 AFBs collected - all 4 of them found to be negative (11/13, 11/14, 11/15, and 11/17). -T spot was positive which is in accordance with latent TB. -ID was consulted for further mangagement. -Patient was started on INH and Pyridoxine to be continued for total of 9 months. #Failure to thrive #Severe Malnourishment #Dysphagia eith G tube -Continue Tube feeds -Nutrition consult #Elevated troponin - Continue to trend - ASA 325 given - High dose statin - EKG - Cardiology following # Anemia of chronic Dx - Trend Hg - Transfuse for Hg less than 8 if ACS - Consult to hematology Heparin SQ Tube feeds DC to SNF 1-2 days I spent 40 minutes on this encounter with 22 min coordinating care and counseli ng. I discussed with all consultants and RNs. I spoke with NOK to update on patient status. Jasmeet Peña M.D. Dec 19, 2019 10:43
--- NOTE | 2019-12-19 10:48 | Pulmonology Progress Note ---
Subjective ROS Limited/Unobtainable: Yes - No verbal pateint Interval Events: None new reported Constitutional: Reports: no symptoms HEENT: Repors: no symptoms Respiratory: Reports: no symptoms Cardiovascular: Reports: no symptoms Gastrointestinal/Abdominal: Reports: no symptoms Allergies: Coded Allergies: No Known Allergies (Unverified , 08/20/18) Objective Last 24 Hour Vital Signs Date Time Temp Pulse Resp B/P (MAP) Pulse Ox O2 Delivery O2 Flow Rate FiO2 12/19/19 08:00 70 12/19/19 08:00 Simple Mask 6.0 12/19/19 08:00 100.0 98 18 128/65 (86) 96 12/19/19 04:00 99.3 82 15 123/77 (92) 100 12/19/19 04:00 Simple Mask 6.0 12/19/19 01:23 Simple Mask 6.0 12/19/19 01:21 99.9 12/19/19 00:00 100.2 81 18 118/63 (81) 100 12/19/19 00:00 79 12/18/19 20:00 88 12/18/19 20:00 101.7 93 22 96/50 (65) 96 12/18/19 19:06 101.7 12/18/19 18:00 101.7 96 23 105/62 (76) 99 12/18/19 16:00 Non-Rebreather 12/18/19 16:00 99.8 92 23 97/62 (74) 99 12/18/19 15:00 90 25 116/66 (83) 97 12/18/19 14:00 87 22 94/60 (71) 100 12/18/19 13:00 95 20 108/80 (89) 93 12/18/19 12:00 94 12/18/19 12:00 99.9 91 30 95/59 (71) 98 12/18/19 12:00 Non-Rebreather 12/18/19 11:00 93 23 108/61 (77) 98 Intake and Output 12/18/19 12/19/19 19:00 07:00 Intake Total 370 ml 700 ml Output Total 2250 ml Balance -1880 ml 700 ml Free Water 260 ml IV Total 100 ml 700 ml Tube Feeding 10 ml Output Urine Total 2250 ml General Appearance: no acute distress HEENT: normocephalic Respiratory: chest wall non-tender, lungs clear Cardiovascular: normal peripheral pulses Abdomen: normal bowel sounds Microbiology Date/Time Source Procedure Growth Status 12/17/19 23:30 Nasopharynx SARS-CoV-2 RdRp Gene Assay - Final Complete 12/17/19 22:35 Blood Blood Culture - Preliminary Resulted 12/17/19 22:30 Blood Blood Culture - Preliminary Resulted Laboratory Tests 12/18/19 13:55: Lactic Acid Level 1.30 12/18/19 21:58: POC Whole Blood Glucose 84 12/19/19 05:54: POC Whole Blood Glucose [Pending] 12/19/19 06:44: White Blood Count 20.5H, Red Blood Count 2.60L, Hemoglobin 8.2L, Hematocrit 24.6L, Mean Corpuscular Volume 95, Mean Corpuscular Hemoglobin 31.5H, Mean Corpuscular Hemoglobin Concent 33.4, Red Cell Distribution Width 14.3, Platelet Count 134L, Mean Platelet Volume 7.9, Neutrophils (%) (Auto) , Lymphocytes (%) (Auto) , Monocytes (%) (Auto) , Eosinophils (%) (Auto) , Basophils (%) (Auto) , Neutrophils % (Manual) [Pending], Lymphocytes % (Manual) [Pending], Platelet Estimate [Pending], Platelet Morphology [Pending], Sodium Level 142, Potassium Level 3.7, Chloride Level 112H, Carbon Dioxide Level 21, Anion Gap 9, Blood Urea Nitrogen 17, Creatinine 0.9, Estimat Glomerular Filtration Rate > 60, Glucose Level 82, Calcium Level 8.5, Ferritin 813H, Total Bilirubin 0.4, Aspartate Amino Transf (AST/SGOT) 50H, Alanine Aminotransferase (ALT/SGPT) 24, Alkaline Phosphatase 69, Troponin I 0.310H, Total Protein 6.7, Albumin 2.4L, Globulin 4.3, Albumin/Globulin Ratio 0.6L, Prostate Specific Antigen 4.21H Current Medications Medications (Trade) Dose Ordered Sig/Altagracia Route PRN Reason Start Time Stop Time Status Last Admin Dose Admin Acetaminophen (Tylenol) 650 mg Q4H PRN ORAL Fever 12/18/19 05:15 01/17/20 05:14 12/19/19 10:33 Albuterol/ Ipratropium (Albuterol/ Ipratropium) 3 ml Q6H PRN HHN Shortness of Breath 12/18/19 05:45 12/23/19 05:44 Aspirin (ASA) 325 mg DAILY ORAL 12/19/19 10:45 02/02/20 10:44 UNV Atorvastatin Calcium (Lipitor) 40 mg ONCE ONCE ORAL 12/19/19 10:45 12/19/19 10:46 UNV Dextrose (Dextrose 50%) 25 ml Q30M PRN IV Hypoglycemia 12/18/19 05:15 03/17/20 05:14 Dextrose (Dextrose 50%) 50 ml Q30M PRN IV Hypoglycemia 12/18/19 05:15 03/17/20 05:14 Doxazosin Mesylate (Cardura) 1 mg DAILY GT 12/18/19 09:00 01/17/20 08:59 12/19/19 09:22 Ergocalciferol (Drisdol) 50,000 intlu ONCE A WEEK ORAL 12/19/19 09:00 01/18/20 08:59 12/19/19 10:33 Finasteride (Proscar) 5 mg DAILY ORAL 12/18/19 09:00 03/17/20 08:59 12/19/19 09:22 Heparin Sodium (Porcine) (Heparin 5000 units/ml) 5,000 units EVERY 12 HOURS SUBQ 12/18/19 09:00 02/01/20 08:59 12/19/19 09:25 Insulin Aspart (NovoLOG) BEFORE MEALS AND HS SUBQ 12/18/19 06:30 03/17/20 06:29 Isoniazid (Inh) 300 mg DAILY GT 12/18/19 09:00 01/17/20 08:59 12/19/19 09:23 Lactobacillus Acidophilus (Culturelle) 1 tab TWICE A DAY GT 12/18/19 09:00 03/17/20 08:59 12/19/19 09:23 Meropenem 1 gm/ Sodium Chloride 100 ml @ 200 mls/hr Q8HR IVPB 12/18/19 15:00 12/23/19 14:59 12/19/19 06:09 Ondansetron HCl (Zofran) 4 mg Q6H PRN IVP Nausea & Vomiting 12/18/19 05:15 01/17/20 05:14 Pantoprazole (Protonix) 40 mg EVERY 12 HOURS IVP 12/18/19 21:00 113/20 20:59 12/19/19 09:21 Pyridoxine HCl (Vitamin B6) 50 mg DAILY GT 12/18/19 09:00 01/17/20 08:59 12/19/19 09:22 Sodium Chloride 1,000 ml @ 100 mls/hr Q10H IVLG 12/18/19 06:00 01/17/20 05:59 12/19/19 03:00 Vancomycin HCl (Vanco pharmacy to dose) 1 ea DAILY PRN MISC PER RX PROTOCOL 12/18/19 06:45 01/17/20 06:44 Vancomycin HCl 750 mg/Sodium Chloride 275 ml @ 183.333 mls/hr Q24H IVPB 12/19/19 10:00 12/24/19 09:59 12/19/19 09:21 Assessment/Plan Assessment/Plan Septic shock due to UTI, Hypoxemia; on simple O2 mask Azotemia Advanced Dementia H/o Hypertension COPD Latent TB Previous CVA Previous PEG for dysphasia/GERD Depression Functional quadriplegia Adult failure to thrive Sacral decubitus ulcer Impression: - IVF - renal following - IV Antibiotics per ID - Monitor labs - Supplemental o2 - PTAMeds - PPX - DNAR/DNI status Easton Arzola MD Dec 19, 2019 10:47
--- NOTE | 2019-12-19 10:52 | NUR ---
NURSE NOTES: critical labs, tropinin reported to dr lara and annabelle. no new orders. awaiting call back from annabelle
[2019-12-19 12:00] VITALS: BP 104/62
--- NOTE | 2019-12-19 12:34 | NUR ---
CASE MANAGEMENT: REVIEW SI: SEPTIC SHOCK . UTI . T 100.2 HR 81 RR 18 BP 118/63 SAT 96% SIMPLE MASK FLOW RATE 6.0 WBC 20.5 H/H 8.2/24.6 IS: VANCOMYCIN IV Q24HR PROTONIX IV Q12HR MEROPENEM IV Q8HR NS IVF @ 100ML/HR ISONIAZID INH QD TELEMETRY UNIT STATUS DCP: PATIENT IS FROM [facility]
--- NOTE | 2019-12-19 13:18 | NUR ---
RD ASSESSMENT & RECOMMENDATIONS SEE CARE ACTIVITY FOR COMPLETE ASSESSMENT DAILY ESTIMATED NEEDS: Needs based on Wounds, SHELL MOLD BONDER TF/ 52.5kg 30-33 kcals/kg 8626-9328 total kcals 1.25-1.5 g protein/kg 65-78 g total protein 25-30 mL/kg 7644-4547 total fluid mLs NUTRITION DIAGNOSIS: * Swallowing difficulty R/T dysphagia as evidenced by pt is PEG dep. * Increased kcal/prot intake needs R/T wound healing as evidenced by pt admitted w/ multiple wounds including DTPI @ L Hip, R lumbar, BL trochanter, and sacrum, unstageable wound @ distal/lateral R foot and R 4th metatarsal, and nonblanching erythema @ LR foot and R hallux. CURRENT TF:Jevity 1.2 @ 70ml/hr x 20 hrs ENTERAL NUTRITION RECOMMENDATIONS: Jevity 1.2 @ 70ml/hr x 20 hrs to provide 1400ml, 1680kcal, 78g prot, 1130ml free water * Maintain current TF: meets 100% est kcal/prot needs * HOB over 30 degrees/ water flush per MD ADDITIONAL RECOMMENDATIONS: * CALIBRATED BEDSCALE WT * Wound care: add Vit C/ TF @ goal provides 100% RDI Add YUNIOR in 4oz H2O via GT BID * Monitor lytes, replete as needed . . .
--- NOTE | 2019-12-19 14:05 | Surgery Progress Note ---
Surgery Progress Note Subjective Additional Comments low grade fevers leukocytosis comfortable appearing no n/v on abx Objective Last 24 Hour Vital Signs Date Time Temp Pulse Resp B/P (MAP) Pulse Ox O2 Delivery O2 Flow Rate FiO2 12/19/19 12:00 98.6 87 18 104/62 (76) 96 12/19/19 12:00 70 12/19/19 11:08 99.4 12/19/19 08:00 70 12/19/19 08:00 Simple Mask 6.0 12/19/19 08:00 100.0 98 18 128/65 (86) 96 12/19/19 04:00 99.3 82 15 123/77 (92) 100 12/19/19 04:00 Simple Mask 6.0 12/19/19 01:23 Simple Mask 6.0 12/19/19 01:21 99.9 12/19/19 00:00 100.2 81 18 118/63 (81) 100 12/19/19 00:00 79 12/18/19 20:00 88 12/18/19 20:00 101.7 93 22 96/50 (65) 96 12/18/19 19:06 101.7 12/18/19 18:00 101.7 96 23 105/62 (76) 99 12/18/19 16:00 Non-Rebreather 12/18/19 16:00 99.8 92 23 97/62 (74) 99 12/18/19 15:00 90 25 116/66 (83) 97 I&O Intake and Output 12/18/19 12/19/19 19:00 07:00 Intake Total 370 ml 700 ml Output Total 2250 ml Balance -1880 ml 700 ml Free Water 260 ml IV Total 100 ml 700 ml Tube Feeding 10 ml Output Urine Total 2250 ml Dressing: saturated Cardiovascular: RSR Respiratory: decreased breath sounds Abdomen: soft, non-tender, present bowel sounds Extremities: no tenderness, no cyanosis Laboratory Tests Test 12/18/19 21:58 12/19/19 05:54 12/19/19 06:44 12/19/19 11:59 POC Whole Blood Glucose 84 MG/DL (74-106) Pending 85 MG/DL (74-106) White Blood Count 20.5 K/UL (4.8-10.8) H Red Blood Count 2.60 M/UL (4.70-6.10) L Hemoglobin 8.2 G/DL (14.2-18.0) L Hematocrit 24.6 % (42.0-52.0) L Mean Corpuscular Volume 95 FL (80-99) Mean Corpuscular Hemoglobin 31.5 PG (27.0-31.0) H Mean Corpuscular Hemoglobin Concent 33.4 G/DL (32.0-36.0) Red Cell Distribution Width 14.3 % (11.6-14.8) Platelet Count 134 K/UL (150-450) L Mean Platelet Volume 7.9 FL (6.5-10.1) Neutrophils (%) (Auto) % (45.0-75.0) Lymphocytes (%) (Auto) % (20.0-45.0) Monocytes (%) (Auto) % (1.0-10.0) Eosinophils (%) (Auto) % (0.0-3.0) Basophils (%) (Auto) % (0.0-2.0) Differential Total Cells Counted 100 Neutrophils % (Manual) 94 % (45-75) H Lymphocytes % (Manual) 2 % (20-45) L Monocytes % (Manual) 1 % (1-10) Eosinophils % (Manual) 0 % (0-3) Basophils % (Manual) 0 % (0-2) Band Neutrophils 3 % (0-8) Platelet Estimate Decreased L Platelet Morphology Normal Hypochromasia 2+ Anisocytosis 1+ Sodium Level 142 MMOL/L (136-145) Potassium Level 3.7 MMOL/L (3.5-5.1) Chloride Level 112 MMOL/L (98-107) H Carbon Dioxide Level 21 MMOL/L (21-32) Anion Gap 9 mmol/L (5-15) Blood Urea Nitrogen 17 mg/dL (7-18) Creatinine 0.9 MG/DL (0.55-1.30) Estimat Glomerular Filtration Rate > 60 mL/min (>60) Glucose Level 82 MG/DL (74-106) Calcium Level 8.5 MG/DL (8.5-10.1) Ferritin 813 NG/ML (8-388) H Total Bilirubin 0.4 MG/DL (0.2-1.0) Aspartate Amino Transf (AST/SGOT) 50 U/L (15-37) H Alanine Aminotransferase (ALT/SGPT) 24 U/L (12-78) Alkaline Phosphatase 69 U/L (46-116) Troponin I 0.310 ng/mL (0.000-0.056) Total Protein 6.7 G/DL (6.4-8.2) Albumin 2.4 G/DL (3.4-5.0) L Globulin 4.3 g/dL Albumin/Globulin Ratio 0.6 (1.0-2.7) L Prostate Specific Antigen 4.21 ng/mL (0.13-4.0) H Plan Problems: (1) COPD (chronic obstructive pulmonary disease) (2) Septic shock Assessment & Plan: Leukocytosis, anemia, lactic acidosis. COVID negative. Afebrile, hypotensive improved with fluid resuscitation off pressors now. UTI on antibiotics Still with significant wounds malnutrition requiring prolonged care. No acute surgical invention at this time Okay to resume tube feeds as tolerated IV fluids Urine output monitoring A.m. labs Imaging reviewed We will follow with recommendations thank you for your participation's care Pt presented on admission with multiple Pressure Injuries, and contractures.L side trunk from L axilla to L hip noted to have a maroon discoloration. DTPI L Hip. Base of wound is maroon with surrounding non-blanchable erythema(L)5.5cm x (W)12.8cm. DTPI R lumbar(L04cm x (W)2.5cm. Base of wound is maroon and indurated. DTPI L trochanter(L)10cm x (W)10.5cm. Base of wound is purpuric with surrounding maroon borders. DTPI R trochanteric(L)9cm x (W)7.5cm. Base of wound is maroon and indurated. Surrounding darker skin tone without induration. DTPI Sacrum(L)9.5cm x (W)14cm. Base of wound is maroon with purpuric and indurated area at Sacrococcygeal area. Surrounding dry scaly skin with scattered dried lesions. Darker skin tone without induration or fluctuance R and L ischial tuberosities. Both heels are boggy and pale with dry peeling skin. Non-Blanching erythema without fluctuance/induration medial L foot ,in close proximity to malleolus(L)1.5cm x (W)1.5cm. Non-Blanching erythema medial R foot (L)2cm x (W)1.3cm. Non-Blanching erythema R Hallux. Base of wound is fluctuant(L)2cm x (W)2.5cm. Unstageable Pressure injury distal/lateral R foot(L)2.2cm x (W)3.8cm. Soft necrosis with surrounding non-blanchable erythema with fluctuance. Unstageable Pressure injury dorsal R4th metatarsal(L)1.4cm x (W)1.9cm. Base of wound is purpuric with marginal erythema along borders. Tx.Plan: Apply Moisture Barrier Paste to Sacrum. Cover with Optifoam drsg. Change every 3 days and prn. Apply Cavilon Skin Barrier to L HIP and L trochanteric. Cover each site with Optifoam drsg. Change every 7 days and prn. Apply Cavilon Skin Barrier to R trochanteric ,R lumbar. Cover each site with Opt ifoam drsg. Change every 7 days and prn. Apply Betadine to affected areas R and L foot. Cover each site with Optifoam drsgs. Change every 3 days and prn. Reposition at least every 2hours or as tolerated. Off-load heels with pillow. APM/RAVINDER Mattress overlay (3) Septic shock (4) Hematemesis (5) Bacteremia (6) Latent tuberculosis (7) Abnormal laboratory test result (8) Do not intubate, cardiopulmonary resuscitation (CPR)-only code status (9) wound (10) Hematuria (11) Fecal impaction (12) Rhabdomyolysis (13) GI bleed (14) Encounter for PEG (percutaneous endoscopic gastrostomy) (15) BRYANT (acute kidney injury) (16) Urinary retention (17) Bladder calculi (18) Proteinuria (19) Altered mental status (20) Electrolyte imbalance (21) Hypertension (22) Pneumonia (23) Severe sepsis (24) Frequent PVCs (25) Hypokalemia (26) UTI (urinary tract infection) (27) Elevated LFTs (28) Dehydration (29) Decubitus skin ulcer (30) UTI (urinary tract infection) (31) Suspected COVID-19 virus infection (32) BPH (benign prostatic hyperplasia) (33) Hyponatremia (34) Severe malnutrition (35) Failure to thrive syndrome, adult (36) Sepsis Reji Guy Dec 19, 2019 14:05
--- NOTE | 2019-12-19 14:57 | Cardiac Electrophysiology PN ---
Assessment/Plan Assessment/Plan 1. Sinus tachycardia due due to sepsis with white count of 22,000. Patient is already on IV antibiotic with meropenem and vancomycin. Patient is also on INH. 2. Hypotension. Patient was initially started on Levophed with blood pressure improved to 90s, currently off pressors and transferred out of intensive care unit. 3. Advanced dementia, bedbound, nonverbal, and care dependent. 4. Dysphagia, status post PEG placement. 5. COPD. 6. Functional quadriplegia. 7. Sacral decubitus. 8. Lactic acidosis. Subjective Subjective Nonverbal. In SR. GT feeding ongoing Objective Last 24 Hour Vital Signs Date Time Temp Pulse Resp B/P (MAP) Pulse Ox O2 Delivery O2 Flow Rate FiO2 12/19/19 12:00 98.6 87 18 104/62 (76) 96 12/19/19 12:00 73 12/19/19 11:08 99.4 12/19/19 08:00 70 12/19/19 08:00 Simple Mask 6.0 12/19/19 08:00 100.0 98 18 128/65 (86) 96 12/19/19 04:00 99.3 82 15 123/77 (92) 100 12/19/19 04:00 Simple Mask 6.0 12/19/19 01:23 Simple Mask 6.0 12/19/19 01:21 99.9 12/19/19 00:00 100.2 81 18 118/63 (81) 100 12/19/19 00:00 79 12/18/19 20:00 88 12/18/19 20:00 101.7 93 22 96/50 (65) 96 12/18/19 19:06 101.7 12/18/19 18:00 101.7 96 23 105/62 (76) 99 12/18/19 16:00 Non-Rebreather 12/18/19 16:00 99.8 92 23 97/62 (74) 99 12/18/19 15:00 90 25 116/66 (83) 97 Intake and Output 12/18/19 12/19/19 19:00 07:00 Intake Total 370 ml 700 ml Output Total 2250 ml Balance -1880 ml 700 ml Free Water 260 ml IV Total 100 ml 700 ml Tube Feeding 10 ml Output Urine Total 2250 ml Laboratory Tests Test 10/4/20 21:58 12/19/19 05:54 12/19/19 06:44 12/19/19 11:59 POC Whole Blood Glucose 84 MG/DL (74-106) Pending 85 MG/DL (74-106) White Blood Count 20.5 K/UL (4.8-10.8) H Red Blood Count 2.60 M/UL (4.70-6.10) L Hemoglobin 8.2 G/DL (14.2-18.0) L Hematocrit 24.6 % (42.0-52.0) L Mean Corpuscular Volume 95 FL (80-99) Mean Corpuscular Hemoglobin 31.5 PG (27.0-31.0) H Mean Corpuscular Hemoglobin Concent 33.4 G/DL (32.0-36.0) Red Cell Distribution Width 14.3 % (11.6-14.8) Platelet Count 134 K/UL (150-450) L Mean Platelet Volume 7.9 FL (6.5-10.1) Neutrophils (%) (Auto) % (45.0-75.0) Lymphocytes (%) (Auto) % (20.0-45.0) Monocytes (%) (Auto) % (1.0-10.0) Eosinophils (%) (Auto) % (0.0-3.0) Basophils (%) (Auto) % (0.0-2.0) Differential Total Cells Counted 100 Neutrophils % (Manual) 94 % (45-75) H Lymphocytes % (Manual) 2 % (20-45) L Monocytes % (Manual) 1 % (1-10) Eosinophils % (Manual) 0 % (0-3) Basophils % (Manual) 0 % (0-2) Band Neutrophils 3 % (0-8) Platelet Estimate Decreased L Platelet Morphology Normal Hypochromasia 2+ Anisocytosis 1+ Sodium Level 142 MMOL/L (136-145) Potassium Level 3.7 MMOL/L (3.5-5.1) Chloride Level 112 MMOL/L (98-107) H Carbon Dioxide Level 21 MMOL/L (21-32) Anion Gap 9 mmol/L (5-15) Blood Urea Nitrogen 17 mg/dL (7-18) Creatinine 0.9 MG/DL (0.55-1.30) Estimat Glomerular Filtration Rate > 60 mL/min (>60) Glucose Level 82 MG/DL (74-106) Calcium Level 8.5 MG/DL (8.5-10.1) Ferritin 813 NG/ML (8-388) H Total Bilirubin 0.4 MG/DL (0.2-1.0) Aspartate Amino Transf (AST/SGOT) 50 U/L (15-37) H Alanine Aminotransferase (ALT/SGPT) 24 U/L (12-78) Alkaline Phosphatase 69 U/L (46-116) Troponin I 0.310 ng/mL (0.000-0.056) Total Protein 6.7 G/DL (6.4-8.2) Albumin 2.4 G/DL (3.4-5.0) L Globulin 4.3 g/dL Albumin/Globulin Ratio 0.6 (1.0-2.7) L Prostate Specific Antigen 4.21 ng/mL (0.13-4.0) H Microbiology Date/Time Source Procedure Growth Status 12/17/19 23:30 Nasopharynx SARS-CoV-2 RdRp Gene Assay - Final Complete 12/17/19 22:35 Blood Blood Culture - Preliminary Resulted 12/17/19 22:30 Blood Blood Culture - Preliminary Resulted Objective HEAD AND NECK: No JVD. He has a facemask on. LUNGS: Coarse rhonchi. CARDIOVASCULAR: Regular S1 and S2 and tachycardic. ABDOMEN: Soft. Status post G-tube. EXTREMITIES: Contracted. Ismael Christine MD Dec 19, 2019 14:57
[2019-12-19 16:00] VITALS: BP 112/60
--- NOTE | 2019-12-19 19:30 | NUR ---
NURSE HAND-OFF REPORT: Important Events on Shift: still need stool sample, Patient Status: dnr dni Diet: jevity 1.2 70cc, hold [id number] Pending Orders: Pending Results/Labs: Pending MD notification: Latest Vital Signs: Temperature 98.1 , Pulse 73 , B/P 112 /60 , Respiratory Rate 22 , O2 SAT 96 , Simple Mask, O2 Flow Rate 6.0 . Vital Sign Comment: EKG Rhythm: Sinus Rhythm Rhythm change?: N MD Notified?: - MD Response: Latest Bartholomew Fall Score: 55 Fall Risk: High Risk Safety Measures: Call light Within Reach, Bed Alarm Zone 3, Side Rails Side Rails x2, Bed position Low and Locked. Fall Precautions: Yellow Socks Yellow Gown Patient Fall Education Report given to ANTOINETTE Cheek said TB latent does not need airborne iso nutrition added to case continued snf gtube feeding per marco lara to f/u with family regarding plan going foward, clarified pt is dni dnr now.
[2019-12-19 20:00] VITALS: BP 119/71
--- NOTE | 2019-12-19 20:27 | Infectious Diseases Prog Note ---
Assessment/Plan Assessment/Plan Full consult dictated: A) 1) sepsis, leukocytosis, fevers, gram neg uti/pyelonephritis, gram neg bacteremia, hypoxia 2) pmh noted 3) allergies - negative P) 1) vancomycin and meropenem 2) f/u on cultures, labs and chest x-ray 3) will f/u Subjective Allergies: Coded Allergies: No Known Allergies (Unverified , 08/20/18) Objective Last 24 Hour Vital Signs Date Time Temp Pulse Resp B/P (MAP) Pulse Ox O2 Delivery O2 Flow Rate FiO2 12/19/19 16:00 98.1 73 22 112/60 (77) 96 12/19/19 16:00 68 12/19/19 12:00 98.6 87 18 104/62 (76) 96 12/19/19 12:00 73 12/19/19 11:08 99.4 12/19/19 08:00 70 12/19/19 08:00 Simple Mask 6.0 12/19/19 08:00 100.0 98 18 128/65 (86) 96 12/19/19 04:00 99.3 82 15 123/77 (92) 100 12/19/19 04:00 Simple Mask 6.0 12/19/19 01:23 Simple Mask 6.0 12/19/19 01:21 99.9 12/19/19 00:00 100.2 81 18 118/63 (81) 100 12/19/19 00:00 79 Height (Feet): 5 Height (Inches): 4.00 Weight (Pounds): 140 Microbiology Date/Time Source Procedure Growth Status 12/17/19 23:30 Nasopharynx SARS-CoV-2 RdRp Gene Assay - Final Complete 12/17/19 22:35 Blood Blood Culture - Preliminary Resulted 12/17/19 22:30 Blood Blood Culture - Preliminary Resulted Laboratory Tests Test 12/18/19 21:58 12/19/19 05:54 12/19/19 06:44 12/19/19 11:59 POC Whole Blood Glucose 84 MG/DL (74-106) Pending 85 MG/DL (74-106) White Blood Count 20.5 K/UL (4.8-10.8) H Red Blood Count 2.60 M/UL (4.70-6.10) L Hemoglobin 8.2 G/DL (14.2-18.0) L Hematocrit 24.6 % (42.0-52.0) L Mean Corpuscular Volume 95 FL (80-99) Mean Corpuscular Hemoglobin 31.5 PG (27.0-31.0) H Mean Corpuscular Hemoglobin Concent 33.4 G/DL (32.0-36.0) Red Cell Distribution Width 14.3 % (11.6-14.8) Platelet Count 134 K/UL (150-450) L Mean Platelet Volume 7.9 FL (6.5-10.1) Neutrophils (%) (Auto) % (45.0-75.0) Lymphocytes (%) (Auto) % (20.0-45.0) Monocytes (%) (Auto) % (1.0-10.0) Eosinophils (%) (Auto) % (0.0-3.0) Basophils (%) (Auto) % (0.0-2.0) Differential Total Cells Counted 100 Neutrophils % (Manual) 94 % (45-75) H Lymphocytes % (Manual) 2 % (20-45) L Monocytes % (Manual) 1 % (1-10) Eosinophils % (Manual) 0 % (0-3) Basophils % (Manual) 0 % (0-2) Band Neutrophils 3 % (0-8) Platelet Estimate Decreased L Platelet Morphology Normal Hypochromasia 2+ Anisocytosis 1+ Sodium Level 142 MMOL/L (136-145) Potassium Level 3.7 MMOL/L (3.5-5.1) Chloride Level 112 MMOL/L (98-107) H Carbon Dioxide Level 21 MMOL/L (21-32) Anion Gap 9 mmol/L (5-15) Blood Urea Nitrogen 17 mg/dL (7-18) Creatinine 0.9 MG/DL (0.55-1.30) Estimat Glomerular Filtration Rate > 60 mL/min (>60) Glucose Level 82 MG/DL (74-106) Calcium Level 8.5 MG/DL (8.5-10.1) Ferritin 813 NG/ML (8-388) H Total Bilirubin 0.4 MG/DL (0.2-1.0) Aspartate Amino Transf (AST/SGOT) 50 U/L (15-37) H Alanine Aminotransferase (ALT/SGPT) 24 U/L (12-78) Alkaline Phosphatase 69 U/L (46-116) Troponin I 0.310 ng/mL (0.000-0.056) Total Protein 6.7 G/DL (6.4-8.2) Albumin 2.4 G/DL (3.4-5.0) L Globulin 4.3 g/dL Albumin/Globulin Ratio 0.6 (1.0-2.7) L Prostate Specific Antigen 4.21 ng/mL (0.13-4.0) H Test 12/19/19 17:23 POC Whole Blood Glucose 95 MG/DL (74-106) Current Medications Medications (Trade) Dose Ordered Sig/Altagracia Route PRN Reason Start Time Stop Time Status Last Admin Dose Admin Acetaminophen (Tylenol) 650 mg Q4H PRN ORAL Fever 12/18/19 05:15 01/17/20 05:14 12/19/19 10:33 Albuterol/ Ipratropium (Albuterol/ Ipratropium) 3 ml Q6H PRN HHN Shortness of Breath 12/18/19 05:45 12/23/19 05:44 Aspirin (ASA) 325 mg DAILY ORAL 12/19/19 11:00 02/02/20 10:59 12/19/19 12:06 Atorvastatin Calcium (Lipitor) 40 mg BEDTIME ORAL 12/19/19 21:00 03/18/20 20:59 Dextrose (Dextrose 50%) 25 ml Q30M PRN IV Hypoglycemia 12/18/19 05:15 03/17/20 05:14 Dextrose (Dextrose 50%) 50 ml Q30M PRN IV Hypoglycemia 12/18/19 05:15 03/17/20 05:14 Doxazosin Mesylate (Cardura) 1 mg DAILY GT 12/18/19 09:00 01/17/20 08:59 12/19/19 09:22 Ergocalciferol (Drisdol) 50,000 intlu ONCE A WEEK ORAL 12/19/19 09:00 01/18/20 08:59 12/19/19 10:33 Finasteride (Proscar) 5 mg DAILY ORAL 12/18/19 09:00 03/17/20 08:59 12/19/19 09:22 Heparin Sodium (Porcine) (Heparin 5000 units/ml) 5,000 units EVERY 12 HOURS SUBQ 12/18/19 09:00 02/01/20 08:59 12/19/19 09:25 Insulin Aspart (NovoLOG) BEFORE MEALS AND HS SUBQ 12/18/19 06:30 03/17/20 06:29 Isoniazid (Inh) 300 mg DAILY GT 12/18/19 09:00 01/17/20 08:59 12/19/19 09:23 Lactobacillus Acidophilus (Culturelle) 1 tab TWICE A DAY GT 12/18/19 09:00 03/17/20 08:59 12/19/19 18:16 Meropenem 1 gm/ Sodium Chloride 100 ml @ 200 mls/hr Q8HR IVPB 12/18/19 15:00 12/23/19 14:59 12/19/19 14:13 Ondansetron HCl (Zofran) 4 mg Q6H PRN IVP Nausea & Vomiting 12/18/19 05:15 01/17/20 05:14 Pantoprazole (Protonix) 40 mg EVERY 12 HOURS IVP 12/18/19 21:00 01/17/20 20:59 12/19/19 09:21 Pyridoxine HCl (Vitamin B6) 50 mg DAILY GT 12/18/19 09:00 01/17/20 08:59 12/19/19 09:22 Sodium Chloride 1,000 ml @ 100 mls/hr Q10H IVLG 12/18/19 06:00 01/17/20 05:59 12/19/19 12:05 Vancomycin HCl (Vanco pharmacy to dose) 1 ea DAILY PRN MISC PER RX PROTOCOL 12/18/19 06:45 01/17/20 06:44 Vancomycin HCl 750 mg/Sodium Chloride 275 ml @ 183.333 mls/hr Q24H IVPB 12/19/19 10:00 12/24/19 09:59 12/19/19 09:21 Bonny Rincon MD Dec 19, 2019 20:27
--- NOTE | 2019-12-19 20:43 | NUR ---
NURSE NOTES: Received patient report from ANTOINETTE Miller. Patient shows no signs of distress or pain at the time. Patient is AO x0 non verbal. Patient is on a simple mask 6L and saturating at 100%. Patient has a G tube running Jevity 1.2 @70cc/hr, there is no residual noted at the time. G tube patent an flushed. Manriquez is intact and draining. Patient has IJ triple lumen running normal saline @100cc/hr. There are no signs of infection or bleeding. Bed is in the lowest position, call light is within reach, side rails up x3, and patient has been repositioned. Skin has been assessed and pictures taken.
[2019-12-19] MEDS: Atorvastatin 20mg tab ORAL SCH (21:16)
--- NOTE | 2019-12-19 23:45 | Consultation ---
DATE OF CONSULTATION: 12/19/2019 INFECTIOUS DISEASE CONSULTATION CONSULTING PHYSICIAN: Bonny Rincon M.D. ATTENDING PHYSICIAN: Darion Hyatt M.D. REFERRING PHYSICIAN: Jasmeet Peña MD. REASON FOR CONSULTATION: Gram-negative bacteremia, UTI, pyelonephritis, sepsis, fevers, leukocytosis, and hypoxia. CHIEF COMPLAINT: The patient's chief complaint coming into the hospital is shortness of breath and COPD. HISTORY OF PRESENT ILLNESS: This is a 74-year-old male, who comes in to [facility] with shortness of breath and hypoxia. The patient had COVID testing, which was negative. The patient's workup shows that he has UTI and pyelonephritis. The patient is mostly nonverbal, but he is alert. The patient has gram-negative bacteremia. Infectious Disease consultation is requested. The patient is on vancomycin and meropenem. I started when I saw the patient. A follow up chest x-ray has been ordered. Initial one did not show any obvious consolidation. The patient will continue on vancomycin and meropenem for UTI/pyelonephritis, gram-negative bacteremia, and sepsis. MAR was noted. Orders were noted. Notes and records were reviewed. Case was discussed with RN. Case was communicated with the primary care team. REVIEW OF SYSTEMS: CONSTITUTIONAL: The patient has multiple wounds. He has a Manriquez. He is short of breath and hypoxia. He has a breathing mask. He came in with fevers as high as 102.7. HEAD AND NECK: No obvious head pain or neck pain. CARDIAC: No chest pain or pressors. GASTROINTESTINAL: No nausea, vomiting, or diarrhea. GENITOURINARY: He has a Manriquez. PULMONARY: He has short of breath and hypoxia. No secretions or hemoptysis. SKIN: No rash. EXTREMITY: No extremity pain. NEUROLOGIC: No seizures. He has multiple wounds. He has generalized fatigue and weakness. No seizure or rash. PAST MEDICAL HISTORY: The patient's past medical history includes the following. The patient has a past medical history of dysphagia, G-tube, advanced dementia, COPD, hypertension, depression, PVCs, GERD, functional quadriplegia, failure to thrive, ulcers, history of BPH, latent tuberculosis, anemia, and possible hypertension. No history of diabetes and dyslipidemia. MEDICATIONS: Upon reviewing the MAR, he is on the following medications. He is on atorvastatin, aspirin, vancomycin, meropenem, antibiotics per pharmacy dosing, pantoprazole, pyridoxine INH, lactobacillus, finasteride, doxazosin, heparin, vancomycin, meropenem, IV fluids, albuterol treatments, Zofran, and acetaminophen p.r.n. ALLERGIES: The patient has no known drug allergies. No antibiotic allergies. SOCIAL HISTORY: Negative for smoking, alcohol, or drug abuse. FAMILY HISTORY: Noncontributory. No mention of exposure to tuberculosis or cancer. PHYSICAL EXAMINATION: VITAL SIGNS: Temperature 98.1, pulse rate 68, respiratory rate 22, blood pressure 112/60, and saturation 96% on 6 liters simple mask. T-max 102.7, heart rate has been as high as 130 on admission. GENERAL: Lethargic and weak, but opens his eyes. HEAD AND NECK: Oral exam, no thrush. Eye exam, no icterus. Normocephalic. Neck is supple. No JVD. He has a simple breathing mask. Neck is supple. HEART: Regular. No gallop or murmur. No friction rub. ABDOMEN: Soft. Positive bowel sounds. Nontender. LUNGS: Few bilateral rhonchi. No definite rales. Maybe some rales. SKIN: No rash. MUSCULOSKELETAL: No effusions. Legs are without cellulitis. PERIPHERAL VASCULAR: No cyanosis or gangrene. GENITOURINARY: He has a Manriquez. Urine is cloudy. LINE SITES: Without phlebitis. NEUROLOGIC: Generalized weakness. Alert and responsive. Weak. Multiple wounds were reviewed and noted. LABORATORY DATA: Laboratory data is as follows. Creatinine 0.9. LFTs were noted. White count 20.5 and hemoglobin 8.2. White count was as high as 22.2. Urinalysis has 60 to 80 white blood cells, many bacteria, 3+ leukocyte esterase. CULTURE: Urine culture is pending. Blood cultures grew gram-negative bacilli and multiple bottles of gram-negative rods. COVID SARS testing is negative by nasopharyngeal testing. IMAGING STUDIES: Chest x-ray showed no obvious consolidation, maybe interstitial changes. ASSESSMENT AND PLAN: 1. The patient has sepsis syndrome, leukocytosis, fevers, SIRS criteria. The patient's workup shows as gram-negative bacteremia. The patient likely has UTI/pyelonephritis with gram-negative bacteremia, sepsis, leukocytosis, fevers, and hypoxia. We will continue vancomycin and meropenem for MRSA gram-negative coverage. Continue vancomycin and meropenem to cover UTI/pyelonephritis and gram-negative bacteremia and sepsis, fevers, and leukocytosis. Check followup chest x-ray. Continue vancomycin and meropenem pending final workup. 2. The patient has a history of wound. Continue wound care protocol. 3. Dementia that is advanced. 4. Dysphagia. 5. PEG feeding tube. 6. Hypertension. 7. COPD. 8. Depression. 9. PVC's. 10. GERD. 11. Functional quadriplegia. 12. Failure to thrive. 13. BPH. 14. Anemia. 15. Latent tuberculosis. With regards to latent tuberculosis, continue INH and pyridoxine for a total of 9-month course. It is unclear how long he has been on this from the [facility]. 16. Social history is negative. 17. Allergies are negative. 18. Family history is noncontributory. 19. MAR is noted. 20. Case was discussed with RN. 21. Case was communicated with primary care team. Bonny Rincon M.D. DR: DEISY JOB#: [id number] CC: BELEM
[2019-12-20] VITALS: BP 118/61
[2019-12-20 04:00] VITALS: BP 116/68
[2019-12-20] MEDS: NovoLOG Insulin Flexpen SUBQ SCH ×4 (05:45→21:00)
--- NOTE | 2019-12-20 06:42 | Hematology/Onc Progress Note ---
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 # BPH --> Chronic indwelling duggan. Continue proscar. # Dementia/FTT/Functional Quadriplegia, PEG tube dependent # Depression # Decubitus Ulcers/Diffuse Pressure wounds --> nutrition consulted for tube feeds --> Wound care consulted, recs appreciated # Pulm opacities --> per pulm # Nonverbal # Dementia # COPD # Dvt ppx hep Appreciate consultation and dw RN Subjective Respiratory: Denies: no symptoms, cough, shortness of breath, SOB with excertion, SOB at rest, sputum, wheezing, other Gastrointestinal/Abdominal: Denies: no symptoms, abdomen distended, abdominal pain, black stools, tarry stools, blood in stool, constipated, diarrhea, difficulty swallowing, nausea, poor appetite, poor fluid intake, rectal bleeding, vomiting, other Allergies: Coded Allergies: No Known Allergies (Unverified , 08/20/18) All Systems: reviewed and negative except above Subjective 12/19 nv, is on abx, wbc improved,on ivfs continuously Objective Objective Current Medications Medications (Trade) Dose Ordered Sig/Altagracia Route PRN Reason Start Time Stop Time Status Last Admin Dose Admin Acetaminophen (Tylenol) 650 mg Q4H PRN ORAL Fever 12/18/19 05:15 01/17/20 05:14 12/20/19 00:25 Albuterol/ Ipratropium (Albuterol/ Ipratropium) 3 ml Q6H PRN HHN Shortness of Breath 12/18/19 05:45 12/23/19 05:44 Aspirin (ASA) 325 mg DAILY ORAL 12/19/19 11:00 02/02/20 10:59 12/19/19 12:06 Atorvastatin Calcium (Lipitor) 40 mg BEDTIME ORAL 12/19/19 21:00 03/18/20 20:59 12/19/19 21:16 Dextrose (Dextrose 50%) 25 ml Q30M PRN IV Hypoglycemia 12/18/19 05:15 03/17/20 05:14 Dextrose (Dextrose 50%) 50 ml Q30M PRN IV Hypoglycemia 12/18/19 05:15 03/17/20 05:14 Doxazosin Mesylate (Cardura) 1 mg DAILY GT 12/18/19 09:00 01/17/20 08:59 12/19/19 09:22 Ergocalciferol (Drisdol) 50,000 intlu ONCE A WEEK ORAL 12/19/19 09:00 01/18/20 08:59 12/19/19 10:33 Finasteride (Proscar) 5 mg DAILY ORAL 12/18/19 09:00 03/17/20 08:59 12/19/19 09:22 Heparin Sodium (Porcine) (Heparin 5000 units/ml) 5,000 units EVERY 12 HOURS SUBQ 12/18/19 09:00 02/01/20 08:59 12/19/19 09:25 Insulin Aspart (NovoLOG) BEFORE MEALS AND HS SUBQ 12/18/19 06:30 03/17/20 06:29 Isoniazid (Inh) 300 mg DAILY GT 12/18/19 09:00 01/17/20 08:59 12/19/19 09:23 Lactobacillus Acidophilus (Culturelle) 1 tab TWICE A DAY GT 12/18/19 09:00 03/17/20 08:59 12/19/19 18:16 Meropenem 1 gm/ Sodium Chloride 100 ml @ 200 mls/hr Q8HR IVPB 12/18/19 15:00 12/23/19 14:59 12/20/19 05:45 Ondansetron HCl (Zofran) 4 mg Q6H PRN IVP Nausea & Vomiting 12/18/19 05:15 01/17/20 05:14 Pantoprazole (Protonix) 40 mg EVERY 12 HOURS IVP 12/18/19 21:00 01/17/20 20:59 12/19/19 21:16 Pyridoxine HCl (Vitamin B6) 50 mg DAILY GT 12/18/19 09:00 01/17/20 08:59 12/19/19 09:22 Sodium Chloride 1,000 ml @ 100 mls/hr Q10H IVLG 12/18/19 06:00 01/17/20 05:59 12/19/19 21:16 Vancomycin HCl (Vanco pharmacy to dose) 1 ea DAILY PRN MISC PER RX PROTOCOL 12/18/19 06:45 01/17/20 06:44 Vancomycin HCl 750 mg/Sodium Chloride 275 ml @ 183.333 mls/hr Q24H IVPB 12/19/19 10:00 12/24/19 09:59 12/19/19 09:21 Last 24 Hour Vital Signs Date Time Temp Pulse Resp B/P (MAP) Pulse Ox O2 Delivery O2 Flow Rate FiO2 12/20/19 04:00 63 12/20/19 04:00 100.6 75 20 116/68 (84) 100 12/20/19 00:55 100.0 12/20/19 00:00 101.5 78 22 118/61 (80) 100 12/20/19 00:00 80 12/19/19 21:00 Simple Mask 6.0 12/19/19 20:00 99.0 83 20 119/71 (87) 100 12/19/19 20:00 72 12/19/19 16:00 98.1 73 22 112/60 (77) 96 12/19/19 16:00 68 12/19/19 12:00 98.6 87 18 104/62 (76) 96 12/19/19 12:00 73 12/19/19 11:08 99.4 12/19/19 08:00 70 12/19/19 08:00 Simple Mask 6.0 12/19/19 08:00 100.0 98 18 128/65 (86) 96 12/19/19 04:00 99.3 82 15 123/77 (92) 100 12/19/19 04:00 Simple Mask 6.0 12/19/19 01:23 Simple Mask 6.0 12/19/19 01:21 99.9 12/19/19 00:00 100.2 81 18 118/63 (81) 100 12/19/19 00:00 79 12/18/19 20:00 88 12/18/19 20:00 101.7 93 22 96/50 (65) 96 12/18/19 19:06 101.7 12/18/19 18:00 101.7 96 23 105/62 (76) 99 12/18/19 16:00 Non-Rebreather 12/18/19 16:00 99.8 92 23 97/62 (74) 99 12/18/19 15:00 90 25 116/66 (83) 97 12/18/19 14:00 87 22 94/60 (71) 100 12/18/19 13:00 95 20 108/80 (89) 93 12/18/19 12:00 94 12/18/19 12:00 99.9 91 30 95/59 (71) 98 12/18/19 12:00 Non-Rebreather 12/18/19 11:00 93 23 108/61 (77) 98 12/18/19 10:00 91 21 94/60 (71) 100 12/18/19 09:11 100.0 12/18/19 09:07 82 12/18/19 09:04 99.7 78 17 83/55 (64) 100 12/18/19 09:02 Non-Rebreather 5.0 12/18/19 08:05 99.4 90 19 106/63 100 Simple Mask 4.0 Intake and Output 12/19/19 12/20/19 19:00 07:00 Intake Total 1041.6 ml Output Total 1800 ml Balance -758.4 ml Free Water 100 ml IV Total 871.6 ml Tube Feeding 70 ml Output Urine Total 1800 ml # Voids 1 # Bowel Movements 1 Labs Test 12/17/19 22:28 12/17/19 23:38 12/18/19 04:11 12/18/19 09:25 White Blood Count 13.6 K/UL (4.8-10.8) 22.2 K/UL (4.8-10.8) Red Blood Count 3.39 M/UL (4.70-6.10) 2.54 M/UL (4.70-6.10) Hemoglobin 10.7 G/DL (14.2-18.0) 8.0 G/DL (14.2-18.0) Hematocrit 33.3 % (42.0-52.0) 23.7 % (42.0-52.0) Mean Corpuscular Volume 98 FL (80-99) 93 FL (80-99) Mean Corpuscular Hemoglobin 31.6 PG (27.0-31.0) 31.5 PG (27.0-31.0) Mean Corpuscular Hemoglobin Concent 32.2 G/DL (32.0-36.0) 33.7 G/DL (32.0-36.0) Red Cell Distribution Width 14.9 % (11.6-14.8) 13.9 % (11.6-14.8) Platelet Count 243 K/UL (150-450) 174 K/UL (150-450) Mean Platelet Volume 7.4 FL (6.5-10.1) 7.6 FL (6.5-10.1) Neutrophils (%) (Auto) % (45.0-75.0) % (45.0-75.0) Lymphocytes (%) (Auto) % (20.0-45.0) % (20.0-45.0) Monocytes (%) (Auto) % (1.0-10.0) % (1.0-10.0) Eosinophils (%) (Auto) % (0.0-3.0) % (0.0-3.0) Basophils (%) (Auto) % (0.0-2.0) % (0.0-2.0) Differential Total Cells Counted 100 100 Neutrophils % (Manual) 64 % (45-75) 68 % (45-75) Lymphocytes % (Manual) 35 % (20-45) 2 % (20-45) Monocytes % (Manual) 1 % (1-10) 3 % (1-10) Eosinophils % (Manual) 0 % (0-3) 1 % (0-3) Basophils % (Manual) 0 % (0-2) 0 % (0-2) Band Neutrophils 0 % (0-8) 26 % (0-8) Platelet Estimate Adequate Adequate Platelet Morphology Normal Normal Prothrombin Time 12.7 SEC (9.30-11.50) Prothromb Time International Ratio 1.2 (0.9-1.1) Activated Partial Thromboplast Time 24 SEC (23-33) D-Dimer 18.87 mg/L FEU (0.00-0.49) Sodium Level 139 MMOL/L (136-145) 142 MMOL/L (136-145) Potassium Level 4.1 MMOL/L (3.5-5.1) 4.0 MMOL/L (3.5-5.1) Chloride Level 105 MMOL/L (98-107) 113 MMOL/L (98-107) Carbon Dioxide Level 25 MMOL/L (21-32) 20 MMOL/L (21-32) Anion Gap 10 mmol/L (5-15) 9 mmol/L (5-15) Blood Urea Nitrogen 53 mg/dL (7-18) 32 mg/dL (7-18) Creatinine 1.7 MG/DL (0.55-1.30) 1.0 MG/DL (0.55-1.30) Estimat Glomerular Filtration Rate 39.6 mL/min (>60) > 60 mL/min (>60) Glucose Level 115 MG/DL (74-106) 94 MG/DL (74-106) Lactic Acid Level 2.80 mmol/L (0.4-2.0) 4.30 mmol/L (0.66-2.22) Calcium Level 9.4 MG/DL (8.5-10.1) 7.7 MG/DL (8.5-10.1) Ferritin 569 NG/ML (8-388) Total Bilirubin 0.5 MG/DL (0.2-1.0) Aspartate Amino Transf (AST/SGOT) 28 U/L (15-37) Alanine Aminotransferase (ALT/SGPT) 27 U/L (12-78) Alkaline Phosphatase 103 U/L (46-116) Lactate Dehydrogenase 203 U/L (81-234) Total Creatine Kinase 83 U/L (26-308) Creatine Kinase MB 0.7 NG/ML (0.0-3.6) Creatine Kinase MB Relative Index 0.8 Troponin I 0.026 ng/mL (0.000-0.056) C-Reactive Protein, Quantitative 4.2 mg/dL (0.00-0.90) Pro-B-Type Natriuretic Peptide 780 pg/mL (0-125) Total Protein 8.5 G/DL (6.4-8.2) Albumin 3.3 G/DL (3.4-5.0) 2.2 G/DL (3.4-5.0) Globulin 5.2 g/dL Albumin/Globulin Ratio 0.6 (1.0-2.7) Lipase 86 U/L (73-393) Urine Color Pale yellow Urine Appearance Cloudy Urine pH 9 (4.5-8.0) Urine Specific [place] 1.010 (1.005-1.035) Urine Protein 2+ (NEGATIVE) Urine Glucose (UA) Negative (NEGATIVE) Urine Ketones Negative (NEGATIVE) Urine Blood 5+ (NEGATIVE) Urine Nitrite Positive (NEGATIVE) Urine Bilirubin Negative (NEGATIVE) Urine Urobilinogen Normal MG/DL (0.0-1.0) Urine Leukocyte Esterase 3+ (NEGATIVE) Urine RBC 60-80 /HPF (0 - 0) Urine WBC 5-10 /HPF (0 - 0) Urine Squamous Epithelial Cells Occasional /LPF Urine Bacteria Many /HPF (NONE) Hypochromasia 2+ Anisocytosis 1+ Phosphorus Level 2.8 MG/DL (2.5-4.9) Test 12/18/19 13:55 12/18/19 21:58 12/19/19 05:54 12/19/19 06:44 Lactic Acid Level 1.30 mmol/L (0.4-2.0) POC Whole Blood Glucose 84 MG/DL (74-106) White Blood Count 20.5 K/UL (4.8-10.8) Red Blood Count 2.60 M/UL (4.70-6.10) Hemoglobin 8.2 G/DL (14.2-18.0) Hematocrit 24.6 % (42.0-52.0) Mean Corpuscular Volume 95 FL (80-99) Mean Corpuscular Hemoglobin 31.5 PG (27.0-31.0) Mean Corpuscular Hemoglobin Concent 33.4 G/DL (32.0-36.0) Red Cell Distribution Width 14.3 % (11.6-14.8) Platelet Count 134 K/UL (150-450) Mean Platelet Volume 7.9 FL (6.5-10.1) Neutrophils (%) (Auto) % (45.0-75.0) Lymphocytes (%) (Auto) % (20.0-45.0) Monocytes (%) (Auto) % (1.0-10.0) Eosinophils (%) (Auto) % (0.0-3.0) Basophils (%) (Auto) % (0.0-2.0) Differential Total Cells Counted 100 Neutrophils % (Manual) 94 % (45-75) Lymphocytes % (Manual) 2 % (20-45) Monocytes % (Manual) 1 % (1-10) Eosinophils % (Manual) 0 % (0-3) Basophils % (Manual) 0 % (0-2) Band Neutrophils 3 % (0-8) Platelet Estimate Decreased Platelet Morphology Normal Hypochromasia 2+ Anisocytosis 1+ Sodium Level 142 MMOL/L (136-145) Potassium Level 3.7 MMOL/L (3.5-5.1) Chloride Level 112 MMOL/L (98-107) Carbon Dioxide Level 21 MMOL/L (21-32) Anion Gap 9 mmol/L (5-15) Blood Urea Nitrogen 17 mg/dL (7-18) Creatinine 0.9 MG/DL (0.55-1.30) Estimat Glomerular Filtration Rate > 60 mL/min (>60) Glucose Level 82 MG/DL (74-106) Calcium Level 8.5 MG/DL (8.5-10.1) Ferritin 813 NG/ML (8-388) Total Bilirubin 0.4 MG/DL (0.2-1.0) Aspartate Amino Transf (AST/SGOT) 50 U/L (15-37) Alanine Aminotransferase (ALT/SGPT) 24 U/L (12-78) Alkaline Phosphatase 69 U/L (46-116) Troponin I 0.310 ng/mL (0.000-0.056) Total Protein 6.7 G/DL (6.4-8.2) Albumin 2.4 G/DL (3.4-5.0) Globulin 4.3 g/dL Albumin/Globulin Ratio 0.6 (1.0-2.7) Prostate Specific Antigen 4.21 ng/mL (0.13-4.0) Test 12/19/19 11:59 12/19/19 17:23 12/19/19 21:05 12/20/19 05:00 POC Whole Blood Glucose 85 MG/DL (74-106) 95 MG/DL (74-106) 115 MG/DL (74-106) Test 12/20/19 05:40 POC Whole Blood Glucose 104 MG/DL (74-106) Height (Feet): 5 Height (Inches): 4.00 Weight (Pounds): 140 Objective General Appearance: nad, alert, confused Lines, tubes and drains: peripheral, central line HEENT: normocephalic Neck: non-tender Respiratory/Chest: lungs clear Cardiovascular/Chest: normal peripheral pulses Abdomen: normal bowel sounds, soft ++peg Extremities: normal range of motion Skin Exam: warm/dry Musculoskeletal: atrophy : ++Jose Guadalupe Putnam MD Dec 20, 2019 06:42
--- NOTE | 2019-12-20 07:00 | NUR ---
NURSE NOTES: Upon flushing lumens, only one is able to be flushed. To report to Md at rounds as this is nonurgent. Running NS at 100cc in the remaining lumen, asymptomatic and intact.
--- NOTE | 2019-12-20 07:39 | NUR ---
NURSE HAND-OFF REPORT: Important Events on Shift:[Patient had fever] Patient Status: [DNR/DNI] Diet: [Jevity 1.2 @70 cc/hr] Pending Orders: [NA] Pending Results/Labs:NA[] Pending MD notification:[NA] Latest Vital Signs: Temperature 100.6 , Pulse 75 , B/P 116 /68 , Respiratory Rate 20 , O2 SAT 100 , Simple Mask, O2 Flow Rate 6.0 . Vital Sign Comment: [NA] EKG Rhythm: Sinus Rhythm Rhythm change?: N MD Notified?: - MD Response: Latest Bartholomew Fall Score: 55 Fall Risk: High Risk Safety Measures: Call light Within Reach, Bed Alarm Zone 3, Side Rails Side Rails x2, Bed position Low and Locked. Fall Precautions: Yellow Socks Yellow Gown Patient Fall Education Report given to [ANTOINETTE Miller].
[2019-12-20 08:00] VITALS: BP 112/76
--- NOTE | 2019-12-20 08:10 | NUR ---
NURSE NOTES: Received patient report from ANTOINETTE Cheek. Patient shows no s/s or complaint of distress. Patient is AO x0 non verbal. simple mask 6L, unlabored and even breathing. G tube running Jevity 1.2 @70cc/hr, there is no residual noted at the time. Manriquez is intact and draining to gravity. Patient has IJ triple lumen running NS@100cc/hr. Bed is low and locked, bed alarm on and call light is within reach, side rails up x3, and patient has been repositioned. Central line dressing changed bedside by Adia CURRY at this time. Site is asymptomatic and intact.
[2019-12-20 08:49] LABS: HEMATOCRIT 22.6 % (42.0-52.0); HEMOGLOBIN 7.6 G/DL (14.2-18.0); MEAN CORPUSCULAR VOLUME 93 FL (80-99); PLATELET COUNT 114 K/UL (150-450); RED BLOOD COUNT 2.43 M/UL (4.70-6.10); RED CELL DISTRIBUTION WIDTH 14.4 % (11.6-14.8); WHITE BLOOD COUNT 14.9 K/UL (4.8-10.8)
[2019-12-20] MEDS: Heparin 5000 units/ml inj SUBQ SCH ×2 (09:00→11:55)
--- NOTE | 2019-12-20 09:16 | NUR ---
NURSE NOTES: plt 114, held heparin. Md to be notified during rounds.
[2019-12-20] MEDS: Lactobacillus-GG tablet GT SCH ×2 (09:17→18:30)
[2019-12-20] MEDS: Pyridoxine 50mg tab GT SCH (09:18)
[2019-12-20] MEDS: Pantoprazole Inj IVP SCH ×2 (09:18→21:55)
[2019-12-20] MEDS: Doxazosin 1mg Tab GT SCH (09:18)
[2019-12-20] MEDS: Isoniazid 300mg tab GT SCH (09:18)
[2019-12-20] MEDS: Vancomycin 750mg/NS 275ml IVPB SCH ×2 (09:19)
--- NOTE | 2019-12-20 09:53 | Pulmonology Progress Note ---
Subjective ROS Limited/Unobtainable: Yes - No verbal pateint Interval Events: None new reported Constitutional: Reports: no symptoms HEENT: Repors: no symptoms Respiratory: Reports: no symptoms Cardiovascular: Reports: no symptoms Gastrointestinal/Abdominal: Reports: no symptoms Allergies: Coded Allergies: No Known Allergies (Unverified , 08/20/18) All Systems: reviewed and negative except above Objective Last 24 Hour Vital Signs Date Time Temp Pulse Resp B/P (MAP) Pulse Ox O2 Delivery O2 Flow Rate FiO2 12/20/19 04:00 63 12/20/19 04:00 100.6 75 20 116/68 (84) 100 12/20/19 00:55 100.0 12/20/19 00:00 101.5 78 22 118/61 (80) 100 12/20/19 00:00 80 12/19/19 21:00 Simple Mask 6.0 12/19/19 20:00 99.0 83 20 119/71 (87) 100 12/19/19 20:00 72 12/19/19 16:00 98.1 73 22 112/60 (77) 96 12/19/19 16:00 68 12/19/19 12:00 98.6 87 18 104/62 (76) 96 12/19/19 12:00 73 12/19/19 11:08 99.4 Intake and Output 12/19/19 12/20/19 19:00 07:00 Intake Total 1041.6 ml Output Total 1800 ml Balance -758.4 ml Free Water 100 ml IV Total 871.6 ml Tube Feeding 70 ml Output Urine Total 1800 ml # Voids 1 # Bowel Movements 1 General Appearance: no acute distress HEENT: normocephalic Respiratory: chest wall non-tender, lungs clear Cardiovascular: normal peripheral pulses Abdomen: normal bowel sounds Microbiology Date/Time Source Procedure Growth Status 12/17/19 23:30 Nasopharynx SARS-CoV-2 RdRp Gene Assay - Final Complete 12/17/19 22:35 Blood Blood Culture - Preliminary Gram Negative Bacillus 1 Resulted 12/17/19 22:30 Blood Blood Culture - Preliminary Gram Negative Bacillus 1 Resulted Laboratory Tests 12/19/19 11:59: POC Whole Blood Glucose 85 12/19/19 17:23: POC Whole Blood Glucose 95 12/19/19 21:05: POC Whole Blood Glucose 115H 12/20/19 05:00: Stool Occult Blood [Pending] 12/20/19 05:40: POC Whole Blood Glucose 104 12/20/19 08:45: White Blood Count 14.9H, Red Blood Count 2.43L, Hemoglobin 7.6L, Hematocrit 22.6L, Mean Corpuscular Volume 93, Mean Corpuscular Hemoglobin 31.2H, Mean Corpuscular Hemoglobin Concent 33.5, Red Cell Distribution Width 14.4, Platelet Count 114L, Mean Platelet Volume 8.5, Neutrophils (%) (Auto) , Lymphocytes (%) (Auto) , Monocytes (%) (Auto) , Eosinophils (%) (Auto) , Basophils (%) (Auto) , Neutrophils % (Manual) [Pending], Lymphocytes % (Manual) [Pending], Platelet Estimate [Pending], Platelet Morphology [Pending], Sodium Level [Pending], Potassium Level [Pending], Chloride Level [Pending], Carbon Dioxide Level [Pending], Blood Urea Nitrogen [Pending], Creatinine [Pending], Estimat Glomerular Filtration Rate [Pending], Glucose Level [Pending], Calcium Level [Pending], Phosphorus Level [Pending], Magnesium Level [Pending], Vancomycin Level Trough [Pending] Current Medications Medications (Trade) Dose Ordered Sig/Altagracia Route PRN Reason Start Time Stop Time Status Last Admin Dose Admin Acetaminophen (Tylenol) 650 mg Q4H PRN ORAL Fever 12/18/19 05:15 01/17/20 05:14 12/20/19 00:25 Albuterol/ Ipratropium (Albuterol/ Ipratropium) 3 ml Q6H PRN HHN Shortness of Breath 12/18/19 05:45 12/23/19 05:44 Aspirin (ASA) 325 mg DAILY ORAL 12/19/19 11:00 02/02/20 10:59 12/20/19 09:17 Atorvastatin Calcium (Lipitor) 40 mg BEDTIME ORAL 12/19/19 21:00 03/18/20 20:59 12/19/19 21:16 Dextrose (Dextrose 50%) 25 ml Q30M PRN IV Hypoglycemia 12/18/19 05:15 03/17/20 05:14 Dextrose (Dextrose 50%) 50 ml Q30M PRN IV Hypoglycemia 12/18/19 05:15 1/2/21 05:14 Doxazosin Mesylate (Cardura) 1 mg DAILY GT 12/18/19 09:00 01/17/20 08:59 12/20/19 09:18 Ergocalciferol (Drisdol) 50,000 intlu ONCE A WEEK ORAL 12/19/19 09:00 01/18/20 08:59 12/19/19 10:33 Finasteride (Proscar) 5 mg DAILY ORAL 12/18/19 09:00 03/17/20 08:59 12/20/19 09:17 Heparin Sodium (Porcine) (Heparin 5000 units/ml) 5,000 units EVERY 12 HOURS SUBQ 12/18/19 09:00 02/01/20 08:59 12/19/19 09:25 Insulin Aspart (NovoLOG) BEFORE MEALS AND HS SUBQ 12/18/19 06:30 03/17/20 06:29 Isoniazid (Inh) 300 mg DAILY GT 12/18/19 09:00 01/17/20 08:59 12/20/19 09:18 Lactobacillus Acidophilus (Culturelle) 1 tab TWICE A DAY GT 12/18/19 09:00 03/17/20 08:59 12/20/19 09:17 Meropenem 1 gm/ Sodium Chloride 100 ml @ 200 mls/hr Q8HR IVPB 12/18/19 15:00 12/23/19 14:59 12/20/19 05:45 Ondansetron HCl (Zofran) 4 mg Q6H PRN IVP Nausea & Vomiting 12/18/19 05:15 01/17/20 05:14 Pantoprazole (Protonix) 40 mg EVERY 12 HOURS IVP 12/18/19 21:00 01/17/20 20:59 12/20/19 09:18 Pyridoxine HCl (Vitamin B6) 50 mg DAILY GT 12/18/19 09:00 01/17/20 08:59 12/20/19 09:18 Sodium Chloride 1,000 ml @ 75 mls/hr [id number] IVLG 12/18/19 06:00 01/17/20 05:59 12/20/19 07:37 Vancomycin HCl (Vanco pharmacy to dose) 1 ea DAILY PRN MISC PER RX PROTOCOL 12/18/19 06:45 01/17/20 06:44 Vancomycin HCl 750 mg/Sodium Chloride 275 ml @ 183.333 mls/hr Q24H IVPB 12/19/19 10:00 12/24/19 09:59 12/20/19 09:19 Assessment/Plan Assessment/Plan Septic shock due to UTI, Hypoxemia; on simple O2 mask Azotemia Advanced Dementia H/o Hypertension COPD Latent TB Previous CVA Previous PEG for dysphasia/GERD Depression Functional quadriplegia Adult failure to thrive Sacral decubitus ulcer Impression: - IVF - renal following - IV Antibiotics per ID - Monitor labs - Supplemental o2 - PTAMeds - PPX - DNAR/DNI status No longer on pressors Easton Arzola MD Dec 20, 2019 09:53
--- NOTE | 2019-12-20 09:57 | NUR ---
RADIOLOGY DEPT., ABDOMEN X-RAY DONE.-P.DYE
[2019-12-20 10:11] LABS: ANION GAP 12 mmol/L (5-15); BLOOD UREA NITROGEN 15 mg/dL (7-18); CALCIUM 8.2 MG/DL (8.5-10.1); CARBON DIOXIDE 22 MMOL/L (21-32); CHLORIDE 110 MMOL/L (98-107); CREATININE 0.7 MG/DL (0.55-1.30); PHOSPHORUS 1.5 MG/DL (2.5-4.9); POTASSIUM 3.4 MMOL/L (3.5-5.1); SODIUM 144 MMOL/L (136-145)
--- NOTE | 2019-12-20 10:23 | General Progress Note ---
Subjective ROS Limited/Unobtainable: Yes - non-verbal, altered Allergies: Coded Allergies: No Known Allergies (Unverified , 08/20/18) Subjective no acute events overnight. Patient did spike fevers with tmax of 101.5, BP and HR stable. on 6L face mask. Unable to follow any commands. Objective Last 24 Hour Vital Signs Date Time Temp Pulse Resp B/P (MAP) Pulse Ox O2 Delivery O2 Flow Rate FiO2 12/20/19 04:00 63 12/20/19 04:00 100.6 75 20 116/68 (84) 100 12/20/19 00:55 100.0 12/20/19 00:00 101.5 78 22 118/61 (80) 100 12/20/19 00:00 80 12/19/19 21:00 Simple Mask 6.0 12/19/19 20:00 99.0 83 20 119/71 (87) 100 12/19/19 20:00 72 12/19/19 16:00 98.1 73 22 112/60 (77) 96 12/19/19 16:00 68 12/19/19 12:00 98.6 87 18 104/62 (76) 96 12/19/19 12:00 73 12/19/19 11:08 99.4 Intake and Output 12/19/19 12/20/19 19:00 07:00 Intake Total 1041.6 ml Output Total 1800 ml Balance -758.4 ml Free Water 100 ml IV Total 871.6 ml Tube Feeding 70 ml Output Urine Total 1800 ml # Voids 1 # Bowel Movements 1 Laboratory Tests 12/19/19 11:59: POC Whole Blood Glucose 85 12/19/19 17:23: POC Whole Blood Glucose 95 12/19/19 21:05: POC Whole Blood Glucose 115H 12/20/19 05:00: Stool Occult Blood [Pending] 12/20/19 05:40: POC Whole Blood Glucose 104 12/20/19 08:45: White Blood Count 14.9H, Red Blood Count 2.43L, Hemoglobin 7.6L, Hematocrit 22.6L, Mean Corpuscular Volume 93, Mean Corpuscular Hemoglobin 31.2H, Mean Corpuscular Hemoglobin Concent 33.5, Red Cell Distribution Width 14.4, Platelet Count 114L, Mean Platelet Volume 8.5, Neutrophils (%) (Auto) , Lymphocytes (%) (Auto) , Monocytes (%) (Auto) , Eosinophils (%) (Auto) , Basophils (%) (Auto) , Neutrophils % (Manual) [Pending], Lymphocytes % (Manual) [Pending], Platelet Estimate [Pending], Platelet Morphology [Pending], Sodium Level [Pending], Potassium Level [Pending], Chloride Level [Pending], Carbon Dioxide Level [Pending], Blood Urea Nitrogen [Pending], Creatinine [Pending], Estimat Glomerular Filtration Rate [Pending], Glucose Level [Pending], Calcium Level [Pending], Phosphorus Level [Pending], Magnesium Level [Pending], Vancomycin Level Trough [Pending] Height (Feet): 5 Height (Inches): 4.00 Weight (Pounds): 140 General Appearance: no apparent distress, alert, confused, other - simple face mask for O2 supplementation EENT: PERRL/EOMI Neck: non-tender, normal inspection Cardiovascular: normal rate, regular rhythm, no JVD Respiratory/Chest: no accessory muscle use, crackles/rales, rhonchi - bilaterally Abdomen: non tender, soft, other - Gtube Genitourinary/Rectal: other - duggan Extremities: non-tender, other Edema: no edema noted Arm (L), no edema noted Arm (R), no edema noted Leg (L), no edema noted Leg (R), no edema noted Pedal (L), no edema noted Pedal (R), no edema noted 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 #Septic Shock 2/2 Complicated UTI # GNB Bacteremia -Off Levophed now and BP remains over MAP 65 -On meropenem and Vancmycin -f/u sensitivities for cultures - noted to have TMAx 101.5 today, WBC downtrending -Duggan care -Consult to ID - apprciate recs #Multiple decubitus Ulcers -Evaluated by General surgery and does not appear to be source of sepsis -Wound care - Offloading # Thrombocytponenia - downtrending - likley from infection - unlikely HIT given timing of downtrending - heme/onc following #COPD exacerbation #Hypoxia -CXR reviewed -Supplemental oxygen to keep O2 88-92% in setting of COPD -Consult to pulmonology #Latent TB -4 AFBs collected - all 4 of them found to be negative (11/13, 11/14, 11/15, and 11/17). -T spot was positive which is in accordance with latent TB. -ID was consulted for further mangagement. -Patient was started on INH and Pyridoxine to be continued for total of 9 months. #Failure to thrive #Severe Malnourishment #Dysphagia eith G tube -Continue Tube feeds -Nutrition consult #Elevated troponin - ASA 325 given - High dose statin - EKG - Cardiology following # Anemia of chronic Dx - Trend Hg - Transfuse for Hg less than 8 if ACS - Consult to hematology CODE: DNR/DNI DVT: Heparin 5000 Subq BID Abx: vanc, merrem Fluids: 75 cc 1/2 NS Diet: TF Gi: PPI 40 mg BID Dispo: DC to SNF 1-2 days if fevers resolve and sensitivities return I spent 45 minutes on this encounter with 25 min coordinating care and counseling. I discussed with all consultants and RNs. Time of note may not reflect time patient was seen. Gorge Stone D.O Dec 20, 2019 10:23
--- NOTE | 2019-12-20 10:43 | NUR ---
NURSE NOTES: dr hall notified of Pt hgb 7.6 and other labs. acknowledged. recommended [facility] Md xiomara ordered,order carried out. Addendum: 12/20/19 at 1047 by Angela Bailon RN RN no new orders at this time
[2019-12-20] MEDS ORDERED: Phospha 250 Neutral tab GT SCH (11:00)
[2019-12-20 12:00] VITALS: BP 117/67
--- NOTE | 2019-12-20 12:01 | NUR ---
NURSE NOTES: Reported to Dr Stone that heparin was held d/t low Plt of 114. Ordered to give it anyways. Parameter added for HOLD <50 plt.
--- NOTE | 2019-12-20 12:07 | NUR ---
*-*DISCHARGE PLANNING*-* PATIENT HAS BEEN REFERRED BACK TO: [facility] P: [phone]
[2019-12-20] MEDS ORDERED: Amikacin Rx to dose MISC PRN (12:15)
--- NOTE | 2019-12-20 12:27 | NUR ---
P.T Note: P.T evaluation completed. Pt is alert however essentially nonverbal and not following commands. Pt presented LOM of B shoulders due to rigidity and severe flexion contractures of B hips and knees. Pt is completely dependent in all areas of ADL/functional mobilities and self care. Pt is already at baseline function and not a candidate for skilled P.T services. DC P.T services.. Recommend DC to prior living arrangement. Thank you for this referral.
--- NOTE | 2019-12-20 12:58 | NUR ---
*-*DISCHARGE PLANNING*-* PATIENT HAS BEEN REFERRED BACK TO: [facility] P: [phone] ROOM# 26.A ALF ~~~~~~~~~NEED DC ORDER~~~~~~~~~~~~~~~
--- NOTE | 2019-12-20 13:01 | Nephrology Progress Note ---
Assessment/Plan Plan #BRYANT due to pre- renal azotemia in the setting of sepsis - r/o ATN #septic shock due to UTI #advanced dementia (bedbound, nonverbal, PEG dependent at baseline) #dysphasia s/p PEG tube #COPD #HTN #Depression - continue IVF - antibiotics - monitor vanco level closely - pressors to maintain MAP> 65 - hold antihypetensives - further work up if no improvement in renal function with hydration Subjective Subjective Cr improved vitals stable transferred out of ICU Objective Objective Last 24 Hour Vital Signs Date Time Temp Pulse Resp B/P (MAP) Pulse Ox O2 Delivery O2 Flow Rate FiO2 12/20/19 12:00 98.4 76 22 117/67 (84) 100 12/20/19 09:00 Simple Mask 6.0 12/20/19 08:00 99.0 88 20 112/76 (88) 100 12/20/19 08:00 66 12/20/19 04:00 63 12/20/19 04:00 100.6 75 20 116/68 (84) 100 12/20/19 00:55 100.0 12/20/19 00:00 101.5 78 22 118/61 (80) 100 12/20/19 00:00 80 12/19/19 21:00 Simple Mask 6.0 12/19/19 20:00 99.0 83 20 119/71 (87) 100 12/19/19 20:00 72 12/19/19 16:00 98.1 73 22 112/60 (77) 96 12/19/19 16:00 68 Intake and Output0 12/19/19 12/20/19 19:00 07:00 Intake Total 1041.6 ml Output Total 1800 ml Balance -758.4 ml Free Water 100 ml IV Total 871.6 ml Tube Feeding 70 ml Output Urine Total 1800 ml # Voids 1 # Bowel Movements 1 Laboratory Tests 12/19/19 17:23: POC Whole Blood Glucose 95 12/19/19 21:05: POC Whole Blood Glucose 115H 12/20/19 05:00: Stool Occult Blood [Pending] 12/20/19 05:40: POC Whole Blood Glucose 104 12/20/19 08:45: White Blood Count 14.9H, Red Blood Count 2.43L, Hemoglobin 7.6L, Hematocrit 22.6L, Mean Corpuscular Volume 93, Mean Corpuscular Hemoglobin 31.2H, Mean Corpuscular Hemoglobin Concent 33.5, Red Cell Distribution Width 14.4, Platelet Count 114L, Mean Platelet Volume 8.5, Neutrophils (%) (Auto) , Lymphocytes (%) (Auto) , Monocytes (%) (Auto) , Eosinophils (%) (Auto) , Basophils (%) (Auto) , Differential Total Cells Counted 100, Neutrophils % (Manual) 92H, Lymphocytes % (Manual) 6L, Monocytes % (Manual) 1, Eosinophils % (Manual) 0, Basophils % (Manual) 1, Band Neutrophils 0, Platelet Estimate DecreasedL, Platelet Morphology Normal, Hypochromasia 3+, Anisocytosis 1+, Spherocytes 2+, Sodium Level 144, Potassium Level 3.4L, Chloride Level 110H, Carbon Dioxide Level 22, Anion Gap 12, Blood Urea Nitrogen 15, Creatinine 0.7, Estimat Glomerular Filtration Rate > 60, Glucose Level 112H, Calcium Level 8.2L, Phosphorus Level 1.5L, Magnesium Level 1.8, Vancomycin Level Trough 6.4 Height (Feet): 5 Height (Inches): 4.00 Weight (Pounds): 140 Objective General Appearance: no apparent distress, alert, confused Lines, tubes and drains: peripheral, central line HEENT: normocephalic Neck: non-tender Respiratory/Chest: lungs clear Cardiovascular/Chest: normal peripheral pulses, normal rate, regular rhythm Abdomen: normal bowel sounds, soft Extremities: normal range of motion Skin Exam: warm/dry Musculoskeletal: atrophy Jelani Sauer M.D. Dec 20, 2019 13:01
--- NOTE | 2019-12-20 13:26 | Diagnostic Imaging Report ---
Indication: Abdominal pain Technique: Supine view of the abdomen Comparison: 07/24/2019 gastrostomy study Findings: Unremarkable bowel gas pattern. No masses or unusual calcifications. There is a gastrostomy again demonstrated. The included lung bases demonstrate bilateral infiltrates Impression: No acute abdominal process. Findings as noted
--- NOTE | 2019-12-20 14:17 | Surgery Progress Note ---
Surgery Progress Note Subjective Symptoms: improved, tolerating diet, passing flatus Objective Last 24 Hour Vital Signs Date Time Temp Pulse Resp B/P (MAP) Pulse Ox O2 Delivery O2 Flow Rate FiO2 12/20/19 12:00 98.4 76 22 117/67 (84) 100 12/20/19 12:00 51 12/20/19 09:00 Simple Mask 6.0 12/20/19 08:00 99.0 88 20 112/76 (88) 100 12/20/19 08:00 66 12/20/19 04:00 63 12/20/19 04:00 100.6 75 20 116/68 (84) 100 12/20/19 00:55 100.0 12/20/19 00:00 101.5 78 22 118/61 (80) 100 12/20/19 00:00 80 12/19/19 21:00 Simple Mask 6.0 12/19/19 20:00 99.0 83 20 119/71 (87) 100 12/19/19 20:00 72 12/19/19 16:00 98.1 73 22 112/60 (77) 96 12/19/19 16:00 68 I&O Intake and Output 12/19/19 12/20/19 19:00 07:00 Intake Total 1041.6 ml Output Total 1800 ml Balance -758.4 ml Free Water 100 ml IV Total 871.6 ml Tube Feeding 70 ml Output Urine Total 1800 ml # Voids 1 # Bowel Movements 1 Dressing: saturated Cardiovascular: RSR Respiratory: clear Abdomen: soft, non-tender, present bowel sounds Extremities: no edema, no tenderness, no cyanosis Laboratory Tests Test 12/19/19 17:23 12/19/19 21:05 12/20/19 05:00 12/20/19 05:40 POC Whole Blood Glucose 95 MG/DL (74-106) 115 MG/DL (74-106) H 104 MG/DL (74-106) Stool Occult Blood Pending Test 12/20/19 08:45 White Blood Count 14.9 K/UL (4.8-10.8) H Red Blood Count 2.43 M/UL (4.70-6.10) L Hemoglobin 7.6 G/DL (14.2-18.0) L Hematocrit 22.6 % (42.0-52.0) L Mean Corpuscular Volume 93 FL (80-99) Mean Corpuscular Hemoglobin 31.2 PG (27.0-31.0) H Mean Corpuscular Hemoglobin Concent 33.5 G/DL (32.0-36.0) Red Cell Distribution Width 14.4 % (11.6-14.8) Platelet Count 114 K/UL (150-450) L Mean Platelet Volume 8.5 FL (6.5-10.1) Neutrophils (%) (Auto) % (45.0-75.0) Lymphocytes (%) (Auto) % (20.0-45.0) Monocytes (%) (Auto) % (1.0-10.0) Eosinophils (%) (Auto) % (0.0-3.0) Basophils (%) (Auto) % (0.0-2.0) Differential Total Cells Counted 100 Neutrophils % (Manual) 92 % (45-75) H Lymphocytes % (Manual) 6 % (20-45) L Monocytes % (Manual) 1 % (1-10) Eosinophils % (Manual) 0 % (0-3) Basophils % (Manual) 1 % (0-2) Band Neutrophils 0 % (0-8) Platelet Estimate Decreased L Platelet Morphology Normal Hypochromasia 3+ Anisocytosis 1+ Spherocytes 2+ Sodium Level 144 MMOL/L (136-145) Potassium Level 3.4 MMOL/L (3.5-5.1) L Chloride Level 110 MMOL/L (98-107) H Carbon Dioxide Level 22 MMOL/L (21-32) Anion Gap 12 mmol/L (5-15) Blood Urea Nitrogen 15 mg/dL (7-18) Creatinine 0.7 MG/DL (0.55-1.30) Estimat Glomerular Filtration Rate > 60 mL/min (>60) Glucose Level 112 MG/DL (74-106) H Calcium Level 8.2 MG/DL (8.5-10.1) L Phosphorus Level 1.5 MG/DL (2.5-4.9) L Magnesium Level 1.8 MG/DL (1.8-2.4) Vancomycin Level Trough 6.4 ug/mL (5.0-12.0) Plan Problems: (1) COPD (chronic obstructive pulmonary disease) (2) Septic shock Assessment & Plan: Leukocytosis, anemia, lactic acidosis. COVID negative. Afebrile, hypotensive improved with fluid resuscitation off pressors now. UTI on antibiotics Still with significant wounds malnutrition requiring prolonged care. No acute surgical invention at this time Okay to resume tube feeds as tolerated IV fluids Urine output monitoring A.m. labs Imaging reviewed We will follow with recommendations thank you for your participation's care Pt presented on admission with multiple Pressure Injuries, and contractures.L side trunk from L axilla to L hip noted to have a maroon discoloration. DTPI L Hip. Base of wound is maroon with surrounding non-blanchable erythema(L)5.5cm x (W)12.8cm. DTPI R lumbar(L04cm x (W)2.5cm. Base of wound is maroon and indurated. DTPI L trochanter(L)10cm x (W)10.5cm. Base of wound is purpuric with surrounding maroon borders. DTPI R trochanteric(L)9cm x (W)7.5cm. Base of wound is maroon and indurated. Surrounding darker skin tone without induration. DTPI Sacrum(L)9.5cm x (W)14cm. Base of wound is maroon with purpuric and indurated area at Sacrococcygeal area. Surrounding dry scaly skin with scattered dried lesions. Darker skin tone without induration or fluctuance R and L ischial tuberosities. Both heels are boggy and pale with dry peeling skin. Non-Blanching erythema without fluctuance/induration medial L foot ,in close proximity to malleolus(L)1.5cm x (W)1.5cm. Non-Blanching erythema medial R foot (L)2cm x (W)1.3cm. Non-Blanching erythema R Hallux. Base of wound is fluctuant(L)2cm x (W)2.5cm. Unstageable Pressure injury distal/lateral R foot(L)2.2cm x (W)3.8cm. Soft necrosis with surrounding non-blanchable erythema with fluctuance. Unstageable Pressure injury dorsal R4th metatarsal(L)1.4cm x (W)1.9cm. Base of wound is purpuric with marginal erythema along borders. Tx.Plan: Apply Moisture Barrier Paste to Sacrum. Cover with Optifoam drsg. Change every 3 days and prn. Apply Cavilon Skin Barrier to L HIP and L trochanteric. Cover each site with Optifoam drsg. Change every 7 days and prn. Apply Cavilon Skin Barrier to R trochanteric ,R lumbar. Cover each site with Optifoam drsg. Change every 7 days and prn. Apply Betadine to affected areas R and L foot. Cover each site with Optifoam drsgs. Change every 3 days and prn. Reposition at least every 2hours or as tolerated. Off-load heels with pillow. APM/RAVINDER Mattress overlay (3) Septic shock (4) Hematemesis (5) Bacteremia (6) Latent tuberculosis (7) Abnormal laboratory test result (8) Do not intubate, cardiopulmonary resuscitation (CPR)-only code status (9) wound (10) Hematuria (11) Fecal impaction (12) Rhabdomyolysis (13) GI bleed (14) Encounter for PEG (percutaneous endoscopic gastrostomy) (15) BRYANT (acute kidney injury) (16) Urinary retention (17) Bladder calculi (18) Proteinuria (19) Altered mental status (20) Electrolyte imbalance (21) Hypertension (22) Pneumonia (23) Severe sepsis (24) Frequent PVCs (25) Hypokalemia (26) UTI (urinary tract infection) (27) Elevated LFTs (28) Dehydration (29) Decubitus skin ulcer (30) UTI (urinary tract infection) (31) Suspected COVID-19 virus infection (32) BPH (benign prostatic hyperplasia) (33) Hyponatremia (34) Severe malnutrition (35) Failure to thrive syndrome, adult (36) Sepsis Reji Guy Dec 20, 2019 14:17
[2019-12-20] MEDS ORDERED: Amikacin 800 MG in NS 110 ML IV SCH (15:00)
--- NOTE | 2019-12-20 15:02 | NUR ---
CASE MANAGEMENT: REVIEW SI: SEPTIC SHOCK . UTI . T 101.5 HR 51 RR 22 BP 117/67 SAT 100% SIMPLE MASK 6.0 WBC 14.9 H/H 7.6/22.6 K 3.4 CALCIUM 8.2 IS: VANCOMYCIN IV Q24HR AMIKACIN IV Q36HR PROTONIX IV Q12HR MEROPENEM IV Q8HR NS IVF @ 75ML/HR ISONIAZID INH QD ERGOCALCIFEROL PO QWEEK TELEMETRY UNIT STATUS DCP: PATIENT IS FROM [facility]
[2019-12-20 16:00] VITALS: BP 124/65
--- NOTE | 2019-12-20 16:09 | NUR ---
NURSE NOTES: Pt had an episode of SR w PVC this morning. Pt was SB to 51s. Notified Dr Christine during rounds, no new orders at this time.
--- NOTE | 2019-12-20 17:06 | Cardiac Electrophysiology PN ---
Assessment/Plan Assessment/Plan 1. Sinus tachycardia due due to sepsis with white count of 22,000. Patient is already on IV antibiotic with meropenem and vancomycin. Patient is also on INH. Now at time sbrady in 50s 2. Hypotension. Patient was initially started on Levophed with blood pressure improved to 90s, currently off pressors and transferred out of intensive care unit. 3. Advanced dementia, bedbound, nonverbal, and care dependent. 4. Dysphagia, status post PEG placement. 5. COPD. 6. Functional quadriplegia. 7. Sacral decubitus. 8. Lactic acidosis. Subjective Subjective Nonverbal. In Sinus leroy in 50s. GT feeding ongoing. Objective Last 24 Hour Vital Signs Date Time Temp Pulse Resp B/P (MAP) Pulse Ox O2 Delivery O2 Flow Rate FiO2 12/20/19 16:00 98.4 75 22 124/65 (84) 100 12/20/19 12:00 98.4 76 22 117/67 (84) 100 12/20/19 12:00 51 12/20/19 09:00 Simple Mask 6.0 12/20/19 08:00 99.0 88 20 112/76 (88) 100 12/20/19 08:00 66 12/20/19 04:00 63 12/20/19 04:00 100.6 75 20 116/68 (84) 100 12/20/19 00:55 100.0 12/20/19 00:00 101.5 78 22 118/61 (80) 100 12/20/19 00:00 80 12/19/19 21:00 Simple Mask 6.0 12/19/19 20:00 99.0 83 20 119/71 (87) 100 12/19/19 20:00 72 Intake and Output 12/19/19 12/20/19 19:00 07:00 Intake Total 1041.6 ml Output Total 1800 ml Balance -758.4 ml Free Water 100 ml IV Total 871.6 ml Tube Feeding 70 ml Output Urine Total 1800 ml # Voids 1 # Bowel Movements 1 Laboratory Tests Test 12/19/19 17:23 12/19/19 21:05 12/20/19 05:00 12/20/19 05:40 POC Whole Blood Glucose 95 MG/DL (74-106) 115 MG/DL (74-106) H 104 MG/DL (74-106) Stool Occult Blood Negative (NEGATIVE) Test 12/20/19 08:45 White Blood Count 14.9 K/UL (4.8-10.8) H Red Blood Count 2.43 M/UL (4.70-6.10) L Hemoglobin 7.6 G/DL (14.2-18.0) L Hematocrit 22.6 % (42.0-52.0) L Mean Corpuscular Volume 93 FL (80-99) Mean Corpuscular Hemoglobin 31.2 PG (27.0-31.0) H Mean Corpuscular Hemoglobin Concent 33.5 G/DL (32.0-36.0) Red Cell Distribution Width 14.4 % (11.6-14.8) Platelet Count 114 K/UL (150-450) L Mean Platelet Volume 8.5 FL (6.5-10.1) Neutrophils (%) (Auto) % (45.0-75.0) Lymphocytes (%) (Auto) % (20.0-45.0) Monocytes (%) (Auto) % (1.0-10.0) Eosinophils (%) (Auto) % (0.0-3.0) Basophils (%) (Auto) % (0.0-2.0) Differential Total Cells Counted 100 Neutrophils % (Manual) 92 % (45-75) H Lymphocytes % (Manual) 6 % (20-45) L Monocytes % (Manual) 1 % (1-10) Eosinophils % (Manual) 0 % (0-3) Basophils % (Manual) 1 % (0-2) Band Neutrophils 0 % (0-8) Platelet Estimate Decreased L Platelet Morphology Normal Hypochromasia 3+ Anisocytosis 1+ Spherocytes 2+ Sodium Level 144 MMOL/L (136-145) Potassium Level 3.4 MMOL/L (3.5-5.1) L Chloride Level 110 MMOL/L (98-107) H Carbon Dioxide Level 22 MMOL/L (21-32) Anion Gap 12 mmol/L (5-15) Blood Urea Nitrogen 15 mg/dL (7-18) Creatinine 0.7 MG/DL (0.55-1.30) Estimat Glomerular Filtration Rate > 60 mL/min (>60) Glucose Level 112 MG/DL (74-106) H Calcium Level 8.2 MG/DL (8.5-10.1) L Phosphorus Level 1.5 MG/DL (2.5-4.9) L Magnesium Level 1.8 MG/DL (1.8-2.4) Vancomycin Level Trough 6.4 ug/mL (5.0-12.0) Microbiology Date/Time Source Procedure Growth Status 12/17/19 23:30 Nasopharynx SARS-CoV-2 RdRp Gene Assay - Final Complete 12/17/19 22:35 Blood Blood Culture - Preliminary Gram Negative Bacillus 1 Resulted 12/17/19 22:30 Blood Blood Culture - Preliminary Gram Negative Bacillus 1 Resulted Objective HEAD AND NECK: No JVD. He has a facemask on. LUNGS: Coarse rhonchi. CARDIOVASCULAR: Regular S1 and S2 and tachycardic. ABDOMEN: Soft. Status post G-tube. EXTREMITIES: Contracted. Ismael Christine MD Dec 20, 2019 17:06
--- NOTE | 2019-12-20 17:07 | Cardiology Report ---
APPROVED REPORT EKG Measurement Heart [id number] <Conclusion> Sinus tachycardia Otherwise normal ECG
[2019-12-20] MEDS: Vancomycin 750mg/D5W 275ml IVPB SCH ×2 (17:49)
--- NOTE | 2019-12-20 19:30 | NUR ---
NURSE HAND-OFF REPORT: Important Events on Shift: only one lumen of central works--segami aware, hgb 7.6 segami aware Patient Status: dnr Diet: jevity 1.2 70cc Pending Orders: Pending Results/Labs: Pending MD notification: kleynberg 7.6 hgb Latest Vital Signs: Temperature 98.4 , Pulse 70 , B/P 124 /65 , Respiratory Rate 22 , O2 SAT 100 , Simple Mask, O2 Flow Rate 6.0 . Vital Sign Comment: EKG Rhythm: Sinus Rhythm Rhythm change?: N MD Notified?: N - MD Response: Latest Bartholomew Fall Score: 55 Fall Risk: High Risk Safety Measures: Call light Within Reach, Bed Alarm Zone 3, Side Rails Side Rails x2, Bed position Low and Locked. Fall Precautions: Yellow Socks Yellow Gown Patient Fall Education Report given to Mihai CURRY.
--- NOTE | 2019-12-20 19:45 | NUR ---
NURSE NOTES: Received hand-off report from Angela Bailon RN. Patient in stable condition, resting in semi-fowlers, no aspiration noted, Jevity 1.2 running at 70mL/h, GT in place, breathing even and unlabored, simple face mask on 6L. Manriquez 16Fr draining clear yellow urine, no signs of bleeding or bruising, no pain/tenderness noted. Left IJ intact, no leaking, no redness, no swelling, running NS at 75mL. Responsive to verbal and tactile stimuli, alert and oriented to baseline(x0). Bed in lowest and locked position, bed wheels locked, call light within reach, bed alarm on.
[2019-12-20 20:00] VITALS: BP 135/77
--- NOTE | 2019-12-20 21:35 | NUR ---
NURSE NOTES: Notified Dr. Levine regarding platelets 114, hemoglobin 7.6, and d-dimer 18.87.
[2019-12-20] MEDS: Dyna-Hex 2% Top Sol 2oz TOPIC SCH (21:54)
[2019-12-20] MEDS: Atorvastatin 20mg tab ORAL SCH (21:55)
[2019-12-21] VITALS: BP 135/74
[2019-12-21 03:10] LABS: HEMATOCRIT 22.6 % (42.0-52.0); HEMOGLOBIN 7.8 G/DL (14.2-18.0); MEAN CORPUSCULAR VOLUME 92 FL (80-99); PLATELET COUNT 114 K/UL (150-450); RED BLOOD COUNT 2.47 M/UL (4.70-6.10); RED CELL DISTRIBUTION WIDTH 13.7 % (11.6-14.8); WHITE BLOOD COUNT 9.5 K/UL (4.8-10.8)
[2019-12-21 03:23] LABS: ANION GAP 9 mmol/L (5-15); BLOOD UREA NITROGEN 13 mg/dL (7-18); CALCIUM 7.8 MG/DL (8.5-10.1); CARBON DIOXIDE 26 MMOL/L (21-32); CHLORIDE 104 MMOL/L (98-107); CREATININE 0.6 MG/DL (0.55-1.30); PHOSPHORUS 1.2 MG/DL (2.5-4.9); POTASSIUM 2.9 MMOL/L (3.5-5.1); SODIUM 139 MMOL/L (136-145)
--- NOTE | 2019-12-21 03:37 | NUR ---
NURSE NOTES: Called Dr. Hyatt group regarding new labs (potassium: 2.9, calcium: 7.8, magnesium: 1.6, phosphorus: 1.2) Addendum: 12/21/19 at 0339 by Mihai Iqbal RN NURSE NOTES: Awaiting callback/orders
--- NOTE | 2019-12-21 03:48 | NUR ---
NURSE NOTES: Brock Viera called back with orders to correct labs. Noted and will carry out.
--- NOTE | 2019-12-21 03:48 | NUR ---
NURSE NOTES: Brock Vanessa stated, "no new orders for calcium replacement."
[2019-12-21 04:00] VITALS: BP 131/72
--- NOTE | 2019-12-21 04:00 | NUR ---
NURSE NOTES: Notified Kamila Ramírez regarding atrial fibrillation. Awaiting call back. Addendum: 12/21/19 at 0753 by Mihai Iqbal RN Documented on WRONG PATIENT.
[2019-12-21] MEDS: Vancomycin 750mg/D5W 275ml IVPB SCH ×4 (05:02→18:12)
[2019-12-21] MEDS: NovoLOG Insulin Flexpen SUBQ SCH ×4 (05:54→20:57)
--- NOTE | 2019-12-21 06:36 | Hematology/Onc Progress Note ---
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 # BPH --> Chronic indwelling duggan. Continue proscar. # Dementia/FTT/Functional Quadriplegia, PEG tube dependent # Depression # Decubitus Ulcers/Diffuse Pressure wounds --> nutrition consulted for tube feeds --> Wound care consulted, recs appreciated # Pulm opacities --> per pulm # Nonverbal # Dementia # COPD # Dvt ppx hep Appreciate consultation and dw RN Subjective HEENT: Denies: no symptoms, eye pain, blurred vision, tearing, double vision, ear pain, ear discharge, nose pain, nose congestion, throat pain, throat swelling, mouth pain, mouth swelling, other Cardiovascular: Denies: no symptoms, chest pain, edema, irregular heart rate, lightheadedness, palpitations, syncope, other Respiratory: Denies: no symptoms, cough, shortness of breath, SOB with excertion, SOB at rest, sputum, wheezing, other Gastrointestinal/Abdominal: Denies: no symptoms, abdomen distended, abdominal pain, black stools, tarry stools, blood in stool, constipated, diarrhea, difficulty swallowing, nausea, poor appetite, poor fluid intake, rectal bleeding, vomiting, other Genitourinary: Denies: no symptoms, burning, discharge, frequency, flank pain, hematuria, incontinence, pain, urgency, other Neurologic/Psychiatric: Denies: no symptoms, anxiety, depressed, emotional problems, headache, numbness, paresthesia, pre-existing deficit, seizure, tingling, tremors, weakness, other Endocrine: Denies: no symptoms, excessive sweating, flushing, intolerance to cold, intolerance to heat, increased hunger, increased thirst, increased urine, unexplained weight gain, unexplained weight loss, other Hematologic/Lymphatic: Denies: no symptoms, anemia, easy bleeding, easy bruising, adenopathy, other Allergies: Coded Allergies: No Known Allergies (Unverified , 08/20/18) Subjective 12/19 nv, is on abx, wbc improved,on ivfs continuously 12/20 on oxygen overnight with elev ddimer, i asked rn to order venous duplex, otherwise plt 110 Objective Objective Current Medications Medications (Trade) Dose Ordered Sig/Altagracia Route PRN Reason Start Time Stop Time Status Last Admin Dose Admin Acetaminophen (Tylenol) 650 mg Q4H PRN ORAL Fever 12/18/19 05:15 01/17/20 05:14 12/21/19 00:55 Albuterol/ Ipratropium (Albuterol/ Ipratropium) 3 ml Q6H PRN HHN Shortness of Breath 12/18/19 05:45 12/23/19 05:44 Amikacin Protocol (Amikacin pharmacy to dose) 1 ea DAILY PRN MISC Per rx protocol 12/20/19 12:15 01/19/20 12:14 Amikacin Sulfate 800 mg/Sodium Chloride 113.2 ml @ 113.2 mls/ hr Q36H IV 12/20/19 15:00 12/27/19 14:59 12/20/19 15:09 Aspirin (ASA) 325 mg DAILY ORAL 12/19/19 11:00 02/02/20 10:59 12/20/19 09:17 Atorvastatin Calcium (Lipitor) 40 mg BEDTIME ORAL 12/19/19 21:00 03/18/20 20:59 12/20/19 21:55 Chlorhexidine Gluconate (Corazon-Hex 2%) 1 applic DAILY@2000 TOPIC 12/20/19 20:00 03/19/20 19:59 12/20/19 21:54 Dextrose (Dextrose 50%) 25 ml Q30M PRN IV Hypoglycemia 12/18/19 05:15 03/17/20 05:14 Dextrose (Dextrose 50%) 50 ml Q30M PRN IV Hypoglycemia 12/18/19 05:15 03/17/20 05:14 Doxazosin Mesylate (Cardura) 1 mg DAILY GT 12/18/19 09:00 01/17/20 08:59 12/20/19 09:18 Ergocalciferol (Drisdol) 50,000 intlu ONCE A WEEK ORAL 12/19/19 09:00 01/18/20 08:59 12/19/19 10:33 Finasteride (Proscar) 5 mg DAILY ORAL 12/18/19 09:00 03/17/20 08:59 12/20/19 09:17 Heparin Sodium (Porcine) (Heparin 5000 units/ml) 5,000 units EVERY 12 HOURS SUBQ 12/18/19 09:00 02/01/20 08:59 12/20/19 11:55 Insulin Aspart (NovoLOG) BEFORE MEALS AND HS SUBQ 12/18/19 06:30 03/17/20 06:29 Isoniazid (Inh) 300 mg DAILY GT 12/18/19 09:00 01/17/20 08:59 12/20/19 09:18 Lactobacillus Acidophilus (Culturelle) 1 tab TWICE A DAY GT 12/18/19 09:00 03/17/20 08:59 12/20/19 18:30 Meropenem 1 gm/ Sodium Chloride 100 ml @ 200 mls/hr Q8HR IVPB 12/18/19 15:00 12/23/19 14:59 12/20/19 21:54 Ondansetron HCl (Zofran) 4 mg Q6H PRN IVP Nausea & Vomiting 12/18/19 05:15 01/17/20 05:14 Pantoprazole (Protonix) 40 mg EVERY 12 HOURS IVP 12/18/19 21:00 01/17/20 20:59 12/20/19 21:55 Phosphorus (Phospha 250 Neutral) 250 mg THREE TIMES A DAY ORAL 12/21/19 09:00 12/24/19 09:00 Potassium Chloride 100 ml @ 100 mls/hr Q1H IVPB 12/21/19 04:30 12/21/19 08:29 12/21/19 05:58 Pyridoxine HCl (Vitamin B6) 50 mg DAILY GT 12/18/19 09:00 01/17/20 08:59 12/20/19 09:18 Sodium Chloride 1,000 ml @ 75 mls/hr [id number] IV 10/6/20 11:15 01/19/20 11:14 12/21/19 00:57 Vancomycin HCl (Vanco pharmacy to dose) 1 ea DAILY PRN MISC PER RX PROTOCOL 12/18/19 06:45 01/17/20 06:44 Vancomycin HCl 750 mg/Dextrose 275 ml @ 183.333 mls/hr Q12HR@0500,1700 IVPB 12/20/19 17:00 12/25/19 16:59 12/21/19 05:02 Last 24 Hour Vital Signs Date Time Temp Pulse Resp B/P (MAP) Pulse Ox O2 Delivery O2 Flow Rate FiO2 12/21/19 04:00 66 12/21/19 04:00 98.8 66 18 131/72 (91) 97 12/21/19 01:25 99.4 12/21/19 00:50 100.6 12/21/19 00:00 84 12/21/19 00:00 99.0 84 18 135/74 (94) 97 12/20/19 21:00 Simple Mask 6.0 12/20/19 20:00 98.4 84 19 135/77 (96) 98 12/20/19 20:00 84 12/20/19 16:00 98.4 75 22 124/65 (84) 100 12/20/19 16:00 70 12/20/19 12:00 98.4 76 22 117/67 (84) 100 12/20/19 12:00 51 12/20/19 09:00 Simple Mask 6.0 12/20/19 08:00 99.0 88 20 112/76 (88) 100 12/20/19 08:00 66 12/20/19 04:00 63 12/20/19 04:00 100.6 75 20 116/68 (84) 100 12/20/19 00:55 100.0 12/20/19 00:00 101.5 78 22 118/61 (80) 100 12/20/19 00:00 80 12/19/19 21:00 Simple Mask 6.0 12/19/19 20:00 99.0 83 20 119/71 (87) 100 12/19/19 20:00 72 12/19/19 16:00 98.1 73 22 112/60 (77) 96 12/19/19 16:00 68 12/19/19 12:00 98.6 87 18 104/62 (76) 96 12/19/19 12:00 73 12/19/19 11:08 99.4 12/19/19 08:00 70 12/19/19 08:00 Simple Mask 6.0 12/19/19 08:00 100.0 98 18 128/65 (86) 96 Intake and Output 12/20/19 12/21/19 19:00 07:00 Intake Total 730 ml Output Total 1700 ml 4500 ml Balance -970 ml -4500 ml Free Water 550 ml IV Total 110 ml Tube Feeding 70 ml Output Urine Total 1700 ml 4500 ml # Voids 1 Labs Test 12/18/19 09:25 12/18/19 13:55 12/18/19 21:58 12/19/19 05:54 White Blood Count 22.2 K/UL (4.8-10.8) Red Blood Count 2.54 M/UL (4.70-6.10) Hemoglobin 8.0 G/DL (14.2-18.0) Hematocrit 23.7 % (42.0-52.0) Mean Corpuscular Volume 93 FL (80-99) Mean Corpuscular Hemoglobin 31.5 PG (27.0-31.0) Mean Corpuscular Hemoglobin Concent 33.7 G/DL (32.0-36.0) Red Cell Distribution Width 13.9 % (11.6-14.8) Platelet Count 174 K/UL (150-450) Mean Platelet Volume 7.6 FL (6.5-10.1) Neutrophils (%) (Auto) % (45.0-75.0) Lymphocytes (%) (Auto) % (20.0-45.0) Monocytes (%) (Auto) % (1.0-10.0) Eosinophils (%) (Auto) % (0.0-3.0) Basophils (%) (Auto) % (0.0-2.0) Differential Total Cells Counted 100 Neutrophils % (Manual) 68 % (45-75) Lymphocytes % (Manual) 2 % (20-45) Monocytes % (Manual) 3 % (1-10) Eosinophils % (Manual) 1 % (0-3) Basophils % (Manual) 0 % (0-2) Band Neutrophils 26 % (0-8) Platelet Estimate Adequate Platelet Morphology Normal Hypochromasia 2+ Anisocytosis 1+ Sodium Level 142 MMOL/L (136-145) Potassium Level 4.0 MMOL/L (3.5-5.1) Chloride Level 113 MMOL/L (98-107) Carbon Dioxide Level 20 MMOL/L (21-32) Anion Gap 9 mmol/L (5-15) Blood Urea Nitrogen 32 mg/dL (7-18) Creatinine 1.0 MG/DL (0.55-1.30) Estimat Glomerular Filtration Rate > 60 mL/min (>60) Glucose Level 94 MG/DL (74-106) Calcium Level 7.7 MG/DL (8.5-10.1) Phosphorus Level 2.8 MG/DL (2.5-4.9) Albumin 2.2 G/DL (3.4-5.0) Lactic Acid Level 1.30 mmol/L (0.4-2.0) POC Whole Blood Glucose 84 MG/DL (74-106) Test 12/19/19 06:44 12/19/19 11:59 12/19/19 17:23 12/19/19 21:05 White Blood Count 20.5 K/UL (4.8-10.8) Red Blood Count 2.60 M/UL (4.70-6.10) Hemoglobin 8.2 G/DL (14.2-18.0) Hematocrit 24.6 % (42.0-52.0) Mean Corpuscular Volume 95 FL (80-99) Mean Corpuscular Hemoglobin 31.5 PG (27.0-31.0) Mean Corpuscular Hemoglobin Concent 33.4 G/DL (32.0-36.0) Red Cell Distribution Width 14.3 % (11.6-14.8) Platelet Count 134 K/UL (150-450) Mean Platelet Volume 7.9 FL (6.5-10.1) Neutrophils (%) (Auto) % (45.0-75.0) Lymphocytes (%) (Auto) % (20.0-45.0) Monocytes (%) (Auto) % (1.0-10.0) Eosinophils (%) (Auto) % (0.0-3.0) Basophils (%) (Auto) % (0.0-2.0) Differential Total Cells Counted 100 Neutrophils % (Manual) 94 % (45-75) Lymphocytes % (Manual) 2 % (20-45) Monocytes % (Manual) 1 % (1-10) Eosinophils % (Manual) 0 % (0-3) Basophils % (Manual) 0 % (0-2) Band Neutrophils 3 % (0-8) Platelet Estimate Decreased Platelet Morphology Normal Hypochromasia 2+ Anisocytosis 1+ Sodium Level 142 MMOL/L (136-145) Potassium Level 3.7 MMOL/L (3.5-5.1) Chloride Level 112 MMOL/L (98-107) Carbon Dioxide Level 21 MMOL/L (21-32) Anion Gap 9 mmol/L (5-15) Blood Urea Nitrogen 17 mg/dL (7-18) Creatinine 0.9 MG/DL (0.55-1.30) Estimat Glomerular Filtration Rate > 60 mL/min (>60) Glucose Level 82 MG/DL (74-106) Calcium Level 8.5 MG/DL (8.5-10.1) Ferritin 813 NG/ML (8-388) Total Bilirubin 0.4 MG/DL (0.2-1.0) Aspartate Amino Transf (AST/SGOT) 50 U/L (15-37) Alanine Aminotransferase (ALT/SGPT) 24 U/L (12-78) Alkaline Phosphatase 69 U/L (46-116) Troponin I 0.310 ng/mL (0.000-0.056) Total Protein 6.7 G/DL (6.4-8.2) Albumin 2.4 G/DL (3.4-5.0) Globulin 4.3 g/dL Albumin/Globulin Ratio 0.6 (1.0-2.7) Prostate Specific Antigen 4.21 ng/mL (0.13-4.0) POC Whole Blood Glucose 85 MG/DL (74-106) 95 MG/DL (74-106) 115 MG/DL (74-106) Test 12/20/19 05:00 12/20/19 05:40 12/20/19 08:45 12/21/19 03:00 Stool Occult Blood Negative (NEGATIVE) POC Whole Blood Glucose 104 MG/DL (74-106) White Blood Count 14.9 K/UL (4.8-10.8) 9.5 K/UL (4.8-10.8) Red Blood Count 2.43 M/UL (4.70-6.10) 2.47 M/UL (4.70-6.10) Hemoglobin 7.6 G/DL (14.2-18.0) 7.8 G/DL (14.2-18.0) Hematocrit 22.6 % (42.0-52.0) 22.6 % (42.0-52.0) Mean Corpuscular Volume 93 FL (80-99) 92 FL (80-99) Mean Corpuscular Hemoglobin 31.2 PG (27.0-31.0) 31.4 PG (27.0-31.0) Mean Corpuscular Hemoglobin Concent 33.5 G/DL (32.0-36.0) 34.3 G/DL (32.0-36.0) Red Cell Distribution Width 14.4 % (11.6-14.8) 13.7 % (11.6-14.8) Platelet Count 114 K/UL (150-450) 114 K/UL (150-450) Mean Platelet Volume 8.5 FL (6.5-10.1) 8.5 FL (6.5-10.1) Neutrophils (%) (Auto) % (45.0-75.0) % (45.0-75.0) Lymphocytes (%) (Auto) % (20.0-45.0) % (20.0-45.0) Monocytes (%) (Auto) % (1.0-10.0) % (1.0-10.0) Eosinophils (%) (Auto) % (0.0-3.0) % (0.0-3.0) Basophils (%) (Auto) % (0.0-2.0) % (0.0-2.0) Differential Total Cells Counted 100 Neutrophils % (Manual) 92 % (45-75) Lymphocytes % (Manual) 6 % (20-45) Monocytes % (Manual) 1 % (1-10) Eosinophils % (Manual) 0 % (0-3) Basophils % (Manual) 1 % (0-2) Band Neutrophils 0 % (0-8) Platelet Estimate Decreased Platelet Morphology Normal Hypochromasia 3+ Anisocytosis 1+ Spherocytes 2+ Sodium Level 144 MMOL/L (136-145) 139 MMOL/L (136-145) Potassium Level 3.4 MMOL/L (3.5-5.1) 2.9 MMOL/L (3.5-5.1) Chloride Level 110 MMOL/L (98-107) 104 MMOL/L (98-107) Carbon Dioxide Level 22 MMOL/L (21-32) 26 MMOL/L (21-32) Anion Gap 12 mmol/L (5-15) 9 mmol/L (5-15) Blood Urea Nitrogen 15 mg/dL (7-18) 13 mg/dL (7-18) Creatinine 0.7 MG/DL (0.55-1.30) 0.6 MG/DL (0.55-1.30) Estimat Glomerular Filtration Rate > 60 mL/min (>60) > 60 mL/min (>60) Glucose Level 112 MG/DL (74-106) 129 MG/DL (74-106) Calcium Level 8.2 MG/DL (8.5-10.1) 7.8 MG/DL (8.5-10.1) Phosphorus Level 1.5 MG/DL (2.5-4.9) 1.2 MG/DL (2.5-4.9) Magnesium Level 1.8 MG/DL (1.8-2.4) 1.6 MG/DL (1.8-2.4) Vancomycin Level Trough 6.4 ug/mL (5.0-12.0) Height (Feet): 5 Height (Inches): 4.00 Weight (Pounds): 140 Objective General Appearance: nad, alert, confused Lines, tubes and drains: peripheral, central line HEENT: normocephalic Neck: non-tender Respiratory/Chest: lungs clear Cardiovascular/Chest: normal peripheral pulses Abdomen: normal bowel sounds, soft ++peg Extremities: normal range of motion Skin Exam: warm/dry Musculoskeletal: atrophy : ++Jose Guadalupe Putnam MD Dec 21, 2019 06:36
--- NOTE | 2019-12-21 07:49 | NUR ---
NURSE NOTES: Received patient from Judi Iqbal RN. Patient sitting up in bed, on 6 liters oxygen via simple, mask, contracted x 4, G-tube running Jevity 1.2@70cc/hour, CXR in process, in no apparent distress, bed in lowest position, call light within reach.
--- NOTE | 2019-12-21 07:50 | NUR ---
NURSE HAND-OFF REPORT: Important Events on Shift: Lab replacement Patient Status: DNR/DNI Diet: Jevity 1.2 at 70mL/h Pending Orders: Pending Results/Labs: Pending MD notification: Latest Vital Signs: Temperature 98.8 , Pulse 66 , B/P 131 /72 , Respiratory Rate 18 , O2 SAT 97 , Simple Mask, O2 Flow Rate 6.0 . Vital Sign Comment: EKG Rhythm: Sinus Rhythm Rhythm change?: N MD Notified?: N - MD Response: Latest Bartholomew Fall Score: 70 Fall Risk: High Risk Safety Measures: Call light Within Reach, Bed Alarm Zone 3, Side Rails Side Rails x2, Bed position Low and Locked. Fall Precautions: Yellow Socks Yellow Gown Patient Fall Education Report given to ANTOINETTE Ceron.
[2019-12-21 08:00] VITALS: BP 111/54
[2019-12-21] MEDS: Lactobacillus-GG tablet GT SCH ×2 (09:20→18:11)
[2019-12-21] MEDS: Phospha 250 Neutral tab ORAL SCH ×3 (09:20→18:11)
[2019-12-21] MEDS: Doxazosin 1mg Tab GT SCH (09:20)
[2019-12-21] MEDS: Pantoprazole Inj IVP SCH ×2 (09:20→21:03)
[2019-12-21] MEDS: Isoniazid 300mg tab GT SCH (09:20)
[2019-12-21] MEDS: Pyridoxine 50mg tab GT SCH (09:20)
[2019-12-21] MEDS: Heparin 5000 units/ml inj SUBQ SCH ×2 (09:43→21:04)
--- NOTE | 2019-12-21 09:47 | NUR ---
RADIOLOGY DEPT., CHEST X-RAY DONE.-P.DYE
--- NOTE | 2019-12-21 10:02 | Diagnostic Imaging Report ---
EXAM: XR Chest, 1 View CLINICAL HISTORY: Check Central Line TECHNIQUE: Frontal view of the chest. COMPARISON: 12/17/2019. FINDINGS: Lungs: Patchy airspace disease at the right lung base. Differential gases include pneumonia. Pleural space: No pneumothorax. Heart: Cardiomediastinal silhouette unremarkable. Mediastinum: See above. Bones/joints: Osteopenia. Tubes, lines and devices: Left-sided central venous catheter is noted in place with its tip at the level of the mid superior vena cava. Other findings: Aeration is slightly improved. IMPRESSION: 1. Patchy airspace disease now noted at the right lung base. 2. Aeration is slightly improved. 3. Tip of the left central venous catheter is at the level of the mid superior vena cava. 4. Osteopenia.
--- NOTE | 2019-12-21 10:32 | Pulmonology Progress Note ---
Subjective ROS Limited/Unobtainable: Yes - non-verbal, altered Interval Events: None new reported Constitutional: Reports: no symptoms HEENT: Repors: no symptoms Respiratory: Reports: no symptoms Cardiovascular: Reports: no symptoms Gastrointestinal/Abdominal: Reports: no symptoms Allergies: Coded Allergies: No Known Allergies (Unverified , 08/20/18) All Systems: reviewed and negative except above Objective Last 24 Hour Vital Signs Date Time Temp Pulse Resp B/P (MAP) Pulse Ox O2 Delivery O2 Flow Rate FiO2 12/21/19 08:00 74 12/21/19 08:00 98.4 64 18 111/54 (73) 97 12/21/19 04:00 66 12/21/19 04:00 98.8 66 18 131/72 (91) 97 12/21/19 01:25 99.4 12/21/19 00:50 100.6 12/21/19 00:00 84 12/21/19 00:00 99.0 84 18 135/74 (94) 97 12/20/19 21:00 Simple Mask 6.0 12/20/19 20:00 98.4 84 19 135/77 (96) 98 12/20/19 20:00 84 12/20/19 16:00 98.4 75 22 124/65 (84) 100 12/20/19 16:00 70 12/20/19 12:00 98.4 76 22 117/67 (84) 100 12/20/19 12:00 51 Intake and Output 12/20/19 12/21/19 19:00 07:00 Intake Total 730 ml Output Total 1700 ml 4500 ml Balance -970 ml -4500 ml Free Water 550 ml IV Total 110 ml Tube Feeding 70 ml Output Urine Total 1700 ml 4500 ml # Voids 1 General Appearance: no acute distress HEENT: normocephalic Respiratory: chest wall non-tender, lungs clear Cardiovascular: normal peripheral pulses Abdomen: normal bowel sounds Laboratory Tests 12/21/19 03:00: White Blood Count 9.5, Red Blood Count 2.47L, Hemoglobin 7.8L, Hematocrit 22.6L, Mean Corpuscular Volume 92, Mean Corpuscular Hemoglobin 31.4H, Mean Corpuscular Hemoglobin Concent 34.3, Red Cell Distribution Width 13.7, Platelet Count 114L, Mean Platelet Volume 8.5, Neutrophils (%) (Auto) , Lymphocytes (%) (Auto) , Monocytes (%) (Auto) , Eosinophils (%) (Auto) , Basophils (%) (Auto) , Sodium Level 139, Potassium Level 2.9L, Chloride Level 104, Carbon Dioxide Level 26, Anion Gap 9, Blood Urea Nitrogen 13, Creatinine 0.6, Estimat Glomerular Filtration Rate > 60, Glucose Level 129H, Calcium Level 7.8L, Phosphorus Level 1.2L, Magnesium Level 1.6L, Random Amikacin Level 6.2 Current Medications Medications (Trade) Dose Ordered Sig/Altagracia Route PRN Reason Start Time Stop Time Status Last Admin Dose Admin Acetaminophen (Tylenol) 650 mg Q4H PRN ORAL Fever 12/18/19 05:15 01/17/20 05:14 12/21/19 00:55 Albuterol/ Ipratropium (Albuterol/ Ipratropium) 3 ml Q6H PRN HHN Shortness of Breath 12/18/19 05:45 12/23/19 05:44 Amikacin Protocol (Amikacin pharmacy to dose) 1 ea DAILY PRN MISC Per rx protocol 12/20/19 12:15 01/19/20 12:14 Amikacin Sulfate 800 mg/Sodium Chloride 113.2 ml @ 113.2 mls/ hr Q24H IV 12/21/19 15:00 12/28/19 14:59 Aspirin (ASA) 325 mg DAILY ORAL 12/19/19 11:00 02/02/20 10:59 12/21/19 09:20 Atorvastatin Calcium (Lipitor) 40 mg BEDTIME ORAL 12/19/19 21:00 03/18/20 20:59 12/20/19 21:55 Chlorhexidine Gluconate (Corazon-Hex 2%) 1 applic DAILY@2000 TOPIC 12/20/19 20:00 03/19/20 19:59 12/20/19 21:54 Dextrose (Dextrose 50%) 25 ml Q30M PRN IV Hypoglycemia 12/18/19 05:15 03/17/20 05:14 Dextrose (Dextrose 50%) 50 ml Q30M PRN IV Hypoglycemia 12/18/19 05:15 03/17/20 05:14 Doxazosin Mesylate (Cardura) 1 mg DAILY GT 12/18/19 09:00 01/17/20 08:59 12/21/19 09:20 Ergocalciferol (Drisdol) 50,000 intlu ONCE A WEEK ORAL 12/19/19 09:00 01/18/20 08:59 12/19/19 10:33 Finasteride (Proscar) 5 mg DAILY ORAL 12/18/19 09:00 03/17/20 08:59 12/21/19 09:20 Heparin Sodium (Porcine) (Heparin 5000 units/ml) 5,000 units EVERY 12 HOURS SUBQ 12/18/19 09:00 02/01/20 08:59 12/21/19 09:43 Insulin Aspart (NovoLOG) BEFORE MEALS AND HS SUBQ 12/18/19 06:30 03/17/20 06:29 Isoniazid (Inh) 300 mg DAILY GT 12/18/19 09:00 01/17/20 08:59 12/21/19 09:20 Lactobacillus Acidophilus (Culturelle) 1 tab TWICE A DAY GT 12/18/19 09:00 03/17/20 08:59 12/21/19 09:20 Meropenem 1 gm/ Sodium Chloride 100 ml @ 200 mls/hr Q8HR IVPB 12/18/19 15:00 12/23/19 14:59 12/21/19 06:51 Ondansetron HCl (Zofran) 4 mg Q6H PRN IVP Nausea & Vomiting 12/18/19 05:15 01/17/20 05:14 Pantoprazole (Protonix) 40 mg EVERY 12 HOURS IVP 12/18/19 21:00 01/17/20 20:59 12/21/19 09:20 Phosphorus (Phospha 250 Neutral) 250 mg THREE TIMES A DAY ORAL 12/21/19 09:00 12/24/19 09:00 12/21/19 09:20 Pyridoxine HCl (Vitamin B6) 50 mg DAILY GT 12/18/19 09:00 01/17/20 08:59 12/21/19 09:20 Sodium Chloride 1,000 ml @ 75 mls/hr [id number] IV 12/20/19 11:15 01/19/20 11:14 12/21/19 00:57 Vancomycin HCl (Vanco pharmacy to dose) 1 ea DAILY PRN MISC PER RX PROTOCOL 10/4/20 06:45 01/17/20 06:44 Vancomycin HCl 750 mg/Dextrose 275 ml @ 183.333 mls/hr Q12HR@0500,1700 IVPB 12/20/19 17:00 12/25/19 16:59 12/21/19 05:02 Assessment/Plan Assessment/Plan Septic shock due to UTI, Hypoxemia; on simple O2 mask Azotemia Advanced Dementia H/o Hypertension COPD Latent TB Previous CVA Previous PEG for dysphasia/GERD Depression Functional quadriplegia Adult failure to thrive Sacral decubitus ulcer Impression: - IVF - renal following - IV Antibiotics per ID - Monitor labs - Supplemental o2 - PTAMeds - PPX - DNAR/DNI status No longer on pressors Easton Arzola MD Dec 21, 2019 10:32
[2019-12-21 11:08] VITALS: BP 97/45
--- NOTE | 2019-12-21 11:17 | General Progress Note ---
Subjective ROS Limited/Unobtainable: Yes - encephlpathic, non verbal Allergies: Coded Allergies: No Known Allergies (Unverified , 08/20/18) Subjective No acute events overnight. T-max 100.6 vitals otherwise stable. Patient nonverbal does not follow any commands. Has bilateral contractures in upper extremities and lower extremities. Still on 6 L nasal cannula, I discussed with nurse to try to wean down on oxygen. Objective Last 24 Hour Vital Signs Date Time Temp Pulse Resp B/P (MAP) Pulse Ox O2 Delivery O2 Flow Rate FiO2 12/21/19 09:00 Nasal Cannula 2.0 12/21/19 08:00 74 12/21/19 08:00 98.4 64 18 111/54 (73) 97 12/21/19 04:00 66 12/21/19 04:00 98.8 66 18 131/72 (91) 97 12/21/19 01:25 99.4 12/21/19 00:50 100.6 12/21/19 00:00 84 12/21/19 00:00 99.0 84 18 135/74 (94) 97 12/20/19 21:00 Simple Mask 6.0 12/20/19 20:00 98.4 84 19 135/77 (96) 98 12/20/19 20:00 84 12/20/19 16:00 98.4 75 22 124/65 (84) 100 12/20/19 16:00 70 12/20/19 12:00 98.4 76 22 117/67 (84) 100 12/20/19 12:00 51 Intake and Output 12/20/19 12/21/19 19:00 07:00 Intake Total 730 ml Output Total 1700 ml 4500 ml Balance -970 ml -4500 ml Free Water 550 ml IV Total 110 ml Tube Feeding 70 ml Output Urine Total 1700 ml 4500 ml # Voids 1 Laboratory Tests 12/21/19 03:00: White Blood Count 9.5, Red Blood Count 2.47L, Hemoglobin 7.8L, Hematocrit 22.6L, Mean Corpuscular Volume 92, Mean Corpuscular Hemoglobin 31.4H, Mean Corpuscular Hemoglobin Concent 34.3, Red Cell Distribution Width 13.7, Platelet Count 114L, Mean Platelet Volume 8.5, Neutrophils (%) (Auto) , Lymphocytes (%) (Auto) , Monocytes (%) (Auto) , Eosinophils (%) (Auto) , Basophils (%) (Auto) , Sodium Level 139, Potassium Level 2.9L, Chloride Level 104, Carbon Dioxide Level 26, Anion Gap 9, Blood Urea Nitrogen 13, Creatinine 0.6, Estimat Glomerular Filtration Rate > 60, Glucose Level 129H, Calcium Level 7.8L, Phosphorus Level 1.2L, Magnesium Level 1.6L, Random Amikacin Level 6.2 Height (Feet): 5 Height (Inches): 4.00 Weight (Pounds): 140 General Appearance: no apparent distress, lethargic, confused EENT: PERRL/EOMI Neck: normal alignment, normal inspection Cardiovascular: normal rate, regular rhythm, regularly irregular Respiratory/Chest: no respiratory distress, no accessory muscle use, crackles/rales Abdomen: non tender, soft, no mass, other - gtube Genitourinary/Rectal: other - duggan Edema: no edema noted Arm (L), no edema noted Arm (R), no edema noted Leg (L), no edema noted Leg (R), no edema noted Pedal (L), no edema noted Pedal (R), no edema noted Generalized 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 #Septic Shock 2/2 Complicated UTI # GNB Bacteremia -Off Levophed now and BP remains over MAP 65 -D/C vancomycin and start amikacin per ID continue Merrem as well -f/u sensitivities for cultures - noted to have TMAx 100.6 today, WBC normalized -Duggan care -Consult to ID - apprciate recs #Acute hypoxic respiratory failure on simple mask 6 L -Discussed with nurse to wean off of simple mask - will consider CT of chest with patient unable to Wean off simple mask #Multiple decubitus Ulcers -Evaluated by General surgery and does not appear to be source of sepsis -Wound care - Offloading # Thrombocytponenia - stable - likley from infection - unlikely HIT given timing of downtrending - heme/onc following #COPD exacerbation #Hypoxia -CXR reviewed -Supplemental oxygen to keep O2 88-92% in setting of COPD -Consult to pulmonology #Latent TB -4 AFBs collected - all 4 of them found to be negative (11/13, 11/14, 11/15, and 11/17). -T spot was positive which is in accordance with latent TB. -ID was consulted for further mangagement. -Patient was started on INH and Pyridoxine to be continued for total of 9 months. #Failure to thrive #Severe Malnourishment #Dysphagia eith G tube -Continue Tube feeds -Nutrition consult #Elevated troponin - ASA 325 given - High dose statin - EKG - Cardiology following # Anemia of chronic Dx - Trend Hg - Transfuse for Hg less than 8 if ACS - Consult to hematology CODE: DNR/DNI DVT: Heparin 5000 Subq BID Abx: amikacin, merrem Fluids: 75 cc 1/2 NS Diet: TF Gi: PPI 40 mg BID Dispo: DC to SNF 1-2 days if fevers resolve and sensitivities return and hypoxia improves I spent 41 minutes on this encounter with 27 min coordinating care and counseling. I discussed with all consultants and RNs. Time of note may not reflect time patient was seen. Gorge Stone D.O Dec 21, 2019 11:17
--- NOTE | 2019-12-21 12:38 | Diagnostic Imaging Report ---
Indication: Shortness of breath Technique: One view of the chest Comparison: 12/18/2019 Findings: Interim increase in dense consolidation of the right lower lobe, as well as of the inferior right upper lobe and possibly the middle lobe. Interim development of a right pleural effusion. Left lung and pleural space remain grossly clear. Heart size is normal. Left jugular central venous catheter is again noted Impression: Markedly increased dense right lower lobe and inferior right upper lobe and middle lobe consolidation, since prior exam of 3 days earlier Developing right pleural effusion Other stable findings as noted
--- NOTE | 2019-12-21 13:26 | Nephrology Progress Note ---
Assessment/Plan Plan #BRYANT due to pre- renal azotemia in the setting of sepsis - r/o ATN #septic shock due to UTI #advanced dementia (bedbound, nonverbal, PEG dependent at baseline) #dysphasia s/p PEG tube #COPD #HTN #Depression - continue IVF - antibiotics - monitor vanco level closely - pressors to maintain MAP> 65 - hold antihypetensives - further work up if no improvement in renal function with hydration Subjective Subjective Cr improved vitals stable transferred out of ICU Objective Objective Last 24 Hour Vital Signs Date Time Temp Pulse Resp B/P (MAP) Pulse Ox O2 Delivery O2 Flow Rate FiO2 12/21/19 12:00 62 12/21/19 11:08 100.8 78 20 97/45 (62) 98 12/21/19 09:00 Nasal Cannula 2.0 12/21/19 08:00 74 12/21/19 08:00 98.4 64 18 111/54 (73) 97 12/21/19 04:00 66 12/21/19 04:00 98.8 66 18 131/72 (91) 97 12/21/19 01:25 99.4 12/21/19 00:50 100.6 12/21/19 00:00 84 12/21/19 00:00 99.0 84 18 135/74 (94) 97 12/20/19 21:00 Simple Mask 6.0 12/20/19 20:00 98.4 84 19 135/77 (96) 98 12/20/19 20:00 84 12/20/19 16:00 98.4 75 22 124/65 (84) 100 12/20/19 16:00 70 Intake and Output 12/20/19 12/21/19 19:00 07:00 Intake Total 730 ml Output Total 1700 ml 4500 ml Balance -970 ml -4500 ml Free Water 550 ml IV Total 110 ml Tube Feeding 70 ml Output Urine Total 1700 ml 4500 ml # Voids 1 Laboratory Tests 12/21/19 03:00: White Blood Count 9.5, Red Blood Count 2.47L, Hemoglobin 7.8L, Hematocrit 22.6L, Mean Corpuscular Volume 92, Mean Corpuscular Hemoglobin 31.4H, Mean Corpuscular Hemoglobin Concent 34.3, Red Cell Distribution Width 13.7, Platelet Count 114L, Mean Platelet Volume 8.5, Neutrophils (%) (Auto) , Lymphocytes (%) (Auto) , Monocytes (%) (Auto) , Eosinophils (%) (Auto) , Basophils (%) (Auto) , Sodium Level 139, Potassium Level 2.9L, Chloride Level 104, Carbon Dioxide Level 26, Anion Gap 9, Blood Urea Nitrogen 13, Creatinine 0.6, Estimat Glomerular Filtration Rate > 60, Glucose Level 129H, Calcium Level 7.8L, Phosphorus Level 1.2L, Magnesium Level 1.6L, Random Amikacin Level 6.2 12/21/19 11:28: POC Whole Blood Glucose [Pending] Height (Feet): 5 Height (Inches): 4.00 Weight (Pounds): 140 Objective General Appearance: no apparent distress, alert, confused Lines, tubes and drains: peripheral, central line HEENT: normocephalic Neck: non-tender Respiratory/Chest: lungs clear Cardiovascular/Chest: normal peripheral pulses, normal rate, regular rhythm Abdomen: normal bowel sounds, soft Extremities: normal range of motion Skin Exam: warm/dry Musculoskeletal: atrophy Jelani Sauer M.D. Dec 21, 2019 13:26
--- NOTE | 2019-12-21 13:38 | Cardiac Electrophysiology PN ---
Assessment/Plan Assessment/Plan 1. Sinus tachycardia due due to sepsis with white count of 22,000. Patient is already on IV antibiotic with meropenem and vancomycin. Patient is also on INH. Now at time leroy in 50s 2. Hypotension. Patient was initially started on Levophed with blood pressure improved to 90s, currently off pressors and transferred out of intensive care unit. 3. Advanced dementia, bedbound, nonverbal, and care dependent. 4. Dysphagia, status post PEG placement. 5. COPD. 6. Functional quadriplegia. 7. Sacral decubitus. 8. Fever and Lactic acidosis.On iv abx per ID. WBC improved from 22 to 9.5 DW RN DC tele Subjective Subjective Nonverbal. In Sinus leroy in 50s. GT feeding ongoing.Febrile again Objective Last 24 Hour Vital Signs Date Time Temp Pulse Resp B/P (MAP) Pulse Ox O2 Delivery O2 Flow Rate FiO2 12/21/19 12:00 62 12/21/19 11:08 100.8 78 20 97/45 (62) 98 12/21/19 09:00 Nasal Cannula 2.0 12/21/19 08:00 74 12/21/19 08:00 98.4 64 18 111/54 (73) 97 12/21/19 04:00 66 12/21/19 04:00 98.8 66 18 131/72 (91) 97 12/21/19 01:25 99.4 12/21/19 00:50 100.6 12/21/19 00:00 84 12/21/19 00:00 99.0 84 18 135/74 (94) 97 12/20/19 21:00 Simple Mask 6.0 12/20/19 20:00 98.4 84 19 135/77 (96) 98 12/20/19 20:00 84 12/20/19 16:00 98.4 75 22 124/65 (84) 100 12/20/19 16:00 70 Intake and Output 12/20/19 12/21/19 19:00 07:00 Intake Total 730 ml Output Total 1700 ml 4500 ml Balance -970 ml -4500 ml Free Water 550 ml IV Total 110 ml Tube Feeding 70 ml Output Urine Total 1700 ml 4500 ml # Voids 1 Laboratory Tests Test 12/21/19 03:00 12/21/19 11:28 White Blood Count 9.5 K/UL (4.8-10.8) Red Blood Count 2.47 M/UL (4.70-6.10) L Hemoglobin 7.8 G/DL (14.2-18.0) L Hematocrit 22.6 % (42.0-52.0) L Mean Corpuscular Volume 92 FL (80-99) Mean Corpuscular Hemoglobin 31.4 PG (27.0-31.0) H Mean Corpuscular Hemoglobin Concent 34.3 G/DL (32.0-36.0) Red Cell Distribution Width 13.7 % (11.6-14.8) Platelet Count 114 K/UL (150-450) L Mean Platelet Volume 8.5 FL (6.5-10.1) Neutrophils (%) (Auto) % (45.0-75.0) Lymphocytes (%) (Auto) % (20.0-45.0) Monocytes (%) (Auto) % (1.0-10.0) Eosinophils (%) (Auto) % (0.0-3.0) Basophils (%) (Auto) % (0.0-2.0) Sodium Level 139 MMOL/L (136-145) Potassium Level 2.9 MMOL/L (3.5-5.1) L Chloride Level 104 MMOL/L (98-107) Carbon Dioxide Level 26 MMOL/L (21-32) Anion Gap 9 mmol/L (5-15) Blood Urea Nitrogen 13 mg/dL (7-18) Creatinine 0.6 MG/DL (0.55-1.30) Estimat Glomerular Filtration Rate > 60 mL/min (>60) Glucose Level 129 MG/DL (74-106) H Calcium Level 7.8 MG/DL (8.5-10.1) L Phosphorus Level 1.2 MG/DL (2.5-4.9) L Magnesium Level 1.6 MG/DL (1.8-2.4) L Random Amikacin Level 6.2 MG/L POC Whole Blood Glucose Pending Objective HEAD AND NECK: No JVD. LUNGS: Coarse rhonchi. CARDIOVASCULAR: Regular S1 and S2 and tachycardic. ABDOMEN: Soft. Status post G-tube. EXTREMITIES: Contracted. Ismael Christine MD Dec 21, 2019 13:38
--- NOTE | 2019-12-21 14:10 | NUR ---
CASE MANAGEMENT: REVIEW SI: SEPTIC SHOCK . UTI . T 100.8 HR 78 RR 20 BP 97/45 SAT 97% NC/2L H/H 7.8/22.6 K 2.9 IS: VANCOMYCIN IV Q24HR AMIKACIN IV Q36HR PROTONIX IV Q12HR MEROPENEM IV Q8HR NS IVF @ 75ML/HR ISONIAZID INH QD ERGOCALCIFEROL PO QWEEK TELEMETRY UNIT STATUS DCP: PATIENT IS FROM [facility]
[2019-12-21] MEDS: D5 1/2NS w/KCl 40meq 1000ml 1,000 ML IV SCH (14:12)
[2019-12-21] MEDS ORDERED: Amikacin 800 MG in NS 110 ML IV SCH (15:00)
--- NOTE | 2019-12-21 15:47 | Infectious Diseases Prog Note ---
Assessment/Plan Assessment/Plan ASSESSMENT AND PLAN: 1. e.coli bacteremia/gram neg bacteremia, uti, ? aspiration pna/hcap, sepsis, fevers, leukocytosis - meropenem, vancomycin - f/u on cultures, labs and chest x-ray -d/w microbiology -d/w RN 2. The patient has a history of wound - continue wound care protocol. 3. Dementia that is advanced. 4. Dysphagia. 5. PEG feeding tube. 6. Hypertension. 7. COPD. 8. Depression. 9. PVC's. 10. GERD. 11. Functional quadriplegia. 12. Failure to thrive. 13. BPH. 14. Anemia. 15. Latent tuberculosis. With regards to latent tuberculosis, continue INH and pyridoxine for a total of 9-month course. It is unclear how long he has been on this from the [facility]. 16. Social history is negative. 17. Allergies are negative. 18. Family history is noncontributory. 19. MAR is noted. 20. Case was discussed with RN. 21. Case was communicated with primary care team. Subjective Constitutional: Denies: fever HEENT: Denies: congestion Respiratory: Reports: shortness of breath - mild Cardiovascular: Denies: chest pain Gastrointestinal/Abdominal: Denies: nausea, vomiting, diarrhea Genitourinary: Reports: other - + duggan Neurologic: Denies: headache Psychiatric: Denies: depression Skin: Denies: rash Hematologic: Denies: bleeding Musculoskeletal: Denies: pain Allergies: Coded Allergies: No Known Allergies (Unverified , 08/20/18) Objective Last 24 Hour Vital Signs Date Time Temp Pulse Resp B/P (MAP) Pulse Ox O2 Delivery O2 Flow Rate FiO2 12/21/19 13:39 96.8 12/21/19 12:00 62 12/21/19 11:08 100.8 78 20 97/45 (62) 98 12/21/19 09:00 Nasal Cannula 2.0 12/21/19 08:00 74 12/21/19 08:00 98.4 64 18 111/54 (73) 97 12/21/19 04:00 66 12/21/19 04:00 98.8 66 18 131/72 (91) 97 12/21/19 01:25 99.4 12/21/19 00:50 100.6 12/21/19 00:00 84 12/21/19 00:00 99.0 84 18 135/74 (94) 97 12/20/19 21:00 Simple Mask 6.0 12/20/19 20:00 98.4 84 19 135/77 (96) 98 12/20/19 20:00 84 12/20/19 16:00 98.4 75 22 124/65 (84) 100 12/20/19 16:00 70 Height (Feet): 5 Height (Inches): 4.00 Weight (Pounds): 140 General Appearance: no acute distress HEENT: normocephalic, atraumatic, anicteric, mucous membranes moist Respiratory/Chest: lungs clear, normal breath sounds, no respiratory distress, no accessory muscle use Cardiovascular: normal rate, regular rhythm, no gallop/murmur, no JVD Abdomen: normal bowel sounds, soft, non tender, no organomegaly, non distended Genitourinary: other - no duggan Extremities: no cyanosis Skin: no rash 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 Interim development of a right pleural effusion. Left lung and pleural space remain grossly clear. Heart size is normal. Left jugular central venous catheter is again noted Impression: Markedly increased dense right lower lobe and inferior right upper lobe and middle lobe consolidation, since prior exam of 3 days earlier Developing right pleural effusion Other stable findings as noted Microbiology Date/Time Source Procedure Growth Status 12/17/19 23:30 Nasopharynx SARS-CoV-2 RdRp Gene Assay - Final Complete 12/17/19 22:35 Blood Blood Culture - Preliminary Escherichia Coli Gram Negative Bacillus 2 Resulted Laboratory Tests Test 12/21/19 03:00 12/21/19 11:28 White Blood Count 9.5 K/UL (4.8-10.8) Red Blood Count 2.47 M/UL (4.70-6.10) L Hemoglobin 7.8 G/DL (14.2-18.0) L Hematocrit 22.6 % (42.0-52.0) L Mean Corpuscular Volume 92 FL (80-99) Mean Corpuscular Hemoglobin 31.4 PG (27.0-31.0) H Mean Corpuscular Hemoglobin Concent 34.3 G/DL (32.0-36.0) Red Cell Distribution Width 13.7 % (11.6-14.8) Platelet Count 114 K/UL (150-450) L Mean Platelet Volume 8.5 FL (6.5-10.1) Neutrophils (%) (Auto) % (45.0-75.0) Lymphocytes (%) (Auto) % (20.0-45.0) Monocytes (%) (Auto) % (1.0-10.0) Eosinophils (%) (Auto) % (0.0-3.0) Basophils (%) (Auto) % (0.0-2.0) Sodium Level 139 MMOL/L (136-145) Potassium Level 2.9 MMOL/L (3.5-5.1) L Chloride Level 104 MMOL/L (98-107) Carbon Dioxide Level 26 MMOL/L (21-32) Anion Gap 9 mmol/L (5-15) Blood Urea Nitrogen 13 mg/dL (7-18) Creatinine 0.6 MG/DL (0.55-1.30) Estimat Glomerular Filtration Rate > 60 mL/min (>60) Glucose Level 129 MG/DL (74-106) H Calcium Level 7.8 MG/DL (8.5-10.1) L Phosphorus Level 1.2 MG/DL (2.5-4.9) L Magnesium Level 1.6 MG/DL (1.8-2.4) L Random Amikacin Level 6.2 MG/L POC Whole Blood Glucose Pending Current Medications Medications (Trade) Dose Ordered Sig/Altagracia Route PRN Reason Start Time Stop Time Status Last Admin Dose Admin Acetaminophen (Tylenol) 650 mg Q4H PRN ORAL Fever 12/18/19 05:15 01/17/20 05:14 12/21/19 13:09 Albuterol/ Ipratropium (Albuterol/ Ipratropium) 3 ml Q6H PRN HHN Shortness of Breath 12/18/19 05:45 12/23/19 05:44 Amikacin Protocol (Amikacin pharmacy to dose) 1 ea DAILY PRN MISC Per rx protocol 12/20/19 12:15 01/19/20 12:14 Amikacin Sulfate 800 mg/Sodium Chloride 113.2 ml @ 113.2 mls/ hr Q24H IV 12/21/19 15:00 12/28/19 14:59 12/21/19 14:11 Aspirin (ASA) 325 mg DAILY ORAL 12/19/19 11:00 02/02/20 10:59 12/21/19 09:20 Atorvastatin Calcium (Lipitor) 40 mg BEDTIME ORAL 12/19/19 21:00 03/18/20 20:59 12/20/19 21:55 Chlorhexidine Gluconate (Corazon-Hex 2%) 1 applic DAILY@2000 TOPIC 12/20/19 20:00 03/19/20 19:59 12/20/19 21:54 Dextrose (Dextrose 50%) 25 ml Q30M PRN IV Hypoglycemia 12/18/19 05:15 03/17/20 05:14 Dextrose (Dextrose 50%) 50 ml Q30M PRN IV Hypoglycemia 12/18/19 05:15 03/17/20 05:14 Dextrose/ Electrolytes 1,000 ml @ 75 mls/hr [id number] IV 12/21/19 14:00 01/20/20 13:59 12/21/19 14:12 Doxazosin Mesylate (Cardura) 1 mg DAILY GT 12/18/19 09:00 01/17/20 08:59 12/21/19 09:20 Ergocalciferol (Drisdol) 50,000 intlu ONCE A WEEK ORAL 12/19/19 09:00 01/18/20 08:59 12/19/19 10:33 Finasteride (Proscar) 5 mg DAILY ORAL 12/18/19 09:00 03/17/20 08:59 12/21/19 09:20 Heparin Sodium (Porcine) (Heparin 5000 units/ml) 5,000 units EVERY 12 HOURS SUBQ 12/18/19 09:00 02/01/20 08:59 12/21/19 09:43 Insulin Aspart (NovoLOG) BEFORE MEALS AND HS SUBQ 12/18/19 06:30 03/17/20 06:29 Isoniazid (Inh) 300 mg DAILY GT 12/18/19 09:00 01/17/20 08:59 12/21/19 09:20 Lactobacillus Acidophilus (Culturelle) 1 tab TWICE A DAY GT 12/18/19 09:00 03/17/20 08:59 12/21/19 09:20 Meropenem 1 gm/ Sodium Chloride 100 ml @ 200 mls/hr Q8HR IVPB 12/18/19 15:00 12/23/19 14:59 12/21/19 13:18 Ondansetron HCl (Zofran) 4 mg Q6H PRN IVP Nausea & Vomiting 12/18/19 05:15 01/17/20 05:14 Pantoprazole (Protonix) 40 mg EVERY 12 HOURS IVP 12/18/19 21:00 01/17/20 20:59 12/21/19 09:20 Phosphorus (Phospha 250 Neutral) 250 mg THREE TIMES A DAY ORAL 12/21/19 09:00 12/24/19 09:00 12/21/19 13:09 Pyridoxine HCl (Vitamin B6) 50 mg DAILY GT 12/18/19 09:00 01/17/20 08:59 12/21/19 09:20 Vancomycin HCl (Vanco pharmacy to dose) 1 ea DAILY PRN MISC PER RX PROTOCOL 12/18/19 06:45 01/17/20 06:44 Vancomycin HCl 750 mg/Dextrose 275 ml @ 183.333 mls/hr Q12HR@0500,1700 IVPB 12/20/19 17:00 12/25/19 16:59 12/21/19 05:02 Bonny Rincon MD Dec 21, 2019 15:47
[2019-12-21 16:00] VITALS: BP 102/64
--- NOTE | 2019-12-21 17:19 | Surgery Progress Note ---
Surgery Progress Note Subjective Additional Comments exam stable afebrile comfortable Objective Last 24 Hour Vital Signs Date Time Temp Pulse Resp B/P (MAP) Pulse Ox O2 Delivery O2 Flow Rate FiO2 12/21/19 13:39 96.8 12/21/19 12:00 62 12/21/19 11:08 100.8 78 20 97/45 (62) 98 12/21/19 09:00 Nasal Cannula 2.0 12/21/19 08:00 74 12/21/19 08:00 98.4 64 18 111/54 (73) 97 12/21/19 04:00 66 12/21/19 04:00 98.8 66 18 131/72 (91) 97 12/21/19 01:25 99.4 12/21/19 00:50 100.6 12/21/19 00:00 84 12/21/19 00:00 99.0 84 18 135/74 (94) 97 12/20/19 21:00 Simple Mask 6.0 12/20/19 20:00 98.4 84 19 135/77 (96) 98 12/20/19 20:00 84 I&O Intake and Output 12/20/19 12/21/19 19:00 07:00 Intake Total 730 ml Output Total 1700 ml 4500 ml Balance -970 ml -4500 ml Free Water 550 ml IV Total 110 ml Tube Feeding 70 ml Output Urine Total 1700 ml 4500 ml # Voids 1 Dressing: saturated Cardiovascular: RSR Respiratory: decreased breath sounds Abdomen: non-tender, present bowel sounds Extremities: no tenderness, no cyanosis Laboratory Tests Test 12/21/19 03:00 12/21/19 11:28 12/21/19 16:00 White Blood Count 9.5 K/UL (4.8-10.8) Red Blood Count 2.47 M/UL (4.70-6.10) L Hemoglobin 7.8 G/DL (14.2-18.0) L Hematocrit 22.6 % (42.0-52.0) L Mean Corpuscular Volume 92 FL (80-99) Mean Corpuscular Hemoglobin 31.4 PG (27.0-31.0) H Mean Corpuscular Hemoglobin Concent 34.3 G/DL (32.0-36.0) Red Cell Distribution Width 13.7 % (11.6-14.8) Platelet Count 114 K/UL (150-450) L Mean Platelet Volume 8.5 FL (6.5-10.1) Neutrophils (%) (Auto) % (45.0-75.0) Lymphocytes (%) (Auto) % (20.0-45.0) Monocytes (%) (Auto) % (1.0-10.0) Eosinophils (%) (Auto) % (0.0-3.0) Basophils (%) (Auto) % (0.0-2.0) Sodium Level 139 MMOL/L (136-145) Potassium Level 2.9 MMOL/L (3.5-5.1) L Chloride Level 104 MMOL/L (98-107) Carbon Dioxide Level 26 MMOL/L (21-32) Anion Gap 9 mmol/L (5-15) Blood Urea Nitrogen 13 mg/dL (7-18) Creatinine 0.6 MG/DL (0.55-1.30) Estimat Glomerular Filtration Rate > 60 mL/min (>60) Glucose Level 129 MG/DL (74-106) H Calcium Level 7.8 MG/DL (8.5-10.1) L Phosphorus Level 1.2 MG/DL (2.5-4.9) L Magnesium Level 1.6 MG/DL (1.8-2.4) L Random Amikacin Level 6.2 MG/L POC Whole Blood Glucose Pending Vancomycin Level Trough 9.5 ug/mL (5.0-12.0) Plan Problems: (1) COPD (chronic obstructive pulmonary disease) (2) Septic shock Assessment & Plan: Leukocytosis, anemia, lactic acidosis. COVID negative. Afebrile, hypotensive improved with fluid resuscitation off pressors now. UTI on antibiotics Still with significant wounds malnutrition requiring prolonged care. No acute surgical invention at this time Okay to resume tube feeds as tolerated IV fluids Urine output monitoring A.m. labs Imaging reviewed We will follow with recommendations thank you for your participation's care Pt presented on admission with multiple Pressure Injuries, and contractures.L side trunk from L axilla to L hip noted to have a maroon discoloration. DTPI L Hip. Base of wound is maroon with surrounding non-blanchable erythema(L)5.5cm x (W)12.8cm. DTPI R lumbar(L04cm x (W)2.5cm. Base of wound is maroon and indurated. DTPI L trochanter(L)10cm x (W)10.5cm. Base of wound is purpuric with surrounding maroon borders. DTPI R trochanteric(L)9cm x (W)7.5cm. Base of wound is maroon and indurated. Surrounding darker skin tone without induration. DTPI Sacrum(L)9.5cm x (W)14cm. Base of wound is maroon with purpuric and indurated area at Sacrococcygeal area. Surrounding dry scaly skin with scattered dried lesions. Darker skin tone without induration or fluctuance R and L ischial tuberosities. Both heels are boggy and pale with dry peeling skin. Non-Blanching erythema without fluctuance/induration medial L foot ,in close p roximity to malleolus(L)1.5cm x (W)1.5cm. Non-Blanching erythema medial R foot (L)2cm x (W)1.3cm. Non-Blanching erythema R Hallux. Base of wound is fluctuant(L)2cm x (W)2.5cm. Unstageable Pressure injury distal/lateral R foot(L)2.2cm x (W)3.8cm. Soft necro sis with surrounding non-blanchable erythema with fluctuance. Unstageable Pressure injury dorsal R4th metatarsal(L)1.4cm x (W)1.9cm. Base of wound is purpuric with marginal erythema along borders. Tx.Plan: Apply Moisture Barrier Paste to Sacrum. Cover with Optifoam drsg. Change every 3 days and prn. Apply Cavilon Skin Barrier to L HIP and L trochanteric. Cover each site with Optifoam drsg. Change every 7 days and prn. Apply Cavilon Skin Barrier to R trochanteric ,R lumbar. Cover each site with Optifoam drsg. Change every 7 days and prn. Apply Betadine to affected areas R and L foot. Cover each site with Optifoam drsgs. Change every 3 days and prn. Reposition at least every 2hours or as tolerated. Off-load heels with pillow. APM/RAVINDER Mattress overlay (3) Septic shock (4) Hematemesis (5) Bacteremia (6) Latent tuberculosis (7) Abnormal laboratory test result (8) Do not intubate, cardiopulmonary resuscitation (CPR)-only code status (9) wound (10) Hematuria (11) Fecal impaction (12) Rhabdomyolysis (13) GI bleed (14) Encounter for PEG (percutaneous endoscopic gastrostomy) (15) BRYANT (acute kidney injury) (16) Urinary retention (17) Bladder calculi (18) Proteinuria (19) Altered mental status (20) Electrolyte imbalance (21) Hypertension (22) Pneumonia (23) Severe sepsis (24) Frequent PVCs (25) Hypokalemia (26) UTI (urinary tract infection) (27) Elevated LFTs (28) Dehydration (29) Decubitus skin ulcer (30) UTI (urinary tract infection) (31) Suspected COVID-19 virus infection (32) BPH (benign prostatic hyperplasia) (33) Hyponatremia (34) Severe malnutrition (35) Failure to thrive syndrome, adult (36) Sepsis Reji Guy Dec 21, 2019 17:19
[2019-12-21 20:00] VITALS: BP 150/78
--- NOTE | 2019-12-21 20:00 | NUR ---
NURSE NOTES: Report received from Lucio CURRY. Patient is noted to be non verbal and non alert. Patient is noted to be on 2 liters of oxygen via nasal canula with an oxygen saturation of 98 %. Was endorsed to Charanjit CURRY that patient was previously on 6 liters of oxygen and was weaned down to 2 liters. Patient doesn't appear to be in respiratory distress at this time. Patient is noted to have G tube with Jevity 1.2 running at 70 cc / hr. Patient is noted to have indwelling Manriquez catheter draining yellow urine. Wound care was endorsed to Charanjit CURRY. Was endorsed to Charanjit CURRY that patient received potassium and magnesium replacement today. Bed is locked, alarmed, and in lowest position. Will continue to follow plan of care.
--- NOTE | 2019-12-21 20:04 | NUR ---
NURSE HAND-OFF REPORT: Important Events on Shift:Change of antibiotics and change IV fluid to D51/2NS+40MeQ@75cc/hour. Potassium replacement and magnesium replacement. Patient Status: Stable Diet: G-Tube Jevity 1.2@70cc/hour Pending Orders: Venous duplex of upper extremity, arterial doppler. Pending Results/Labs:am labs. Pending MD notification:N/A Latest Vital Signs: Temperature 97.9 , Pulse 63 , B/P 102 /64 , Respiratory Rate 22 , O2 SAT 97 , Nasal Cannula, O2 Flow Rate 2.0 . Vital Sign Comment: Stable EKG Rhythm: Sinus Rhythm Rhythm change?: N MD Notified?: N - MD Response: Latest Bartholomew Fall Score: 70 Fall Risk: High Risk Safety Measures: Call light Within Reach, Bed Alarm Zone 3, Side Rails Side Rails x2, Bed position Low and Locked. Fall Precautions: Yellow Socks Yellow Gown Patient Fall Education Report given to Madina Rubio RN.
[2019-12-21] MEDS: Dyna-Hex 2% Top Sol 2oz TOPIC SCH (21:02)
[2019-12-21] MEDS: Atorvastatin 20mg tab ORAL SCH (21:03)
--- NOTE | 2019-12-21 22:03 | NUR ---
NURSE HAND-OFF: Important Events on Shift: patient transferred to [facility] per MD orders. Wound care endorsed. Tube feeding endorsed. Endorsed that patient had low potassium and magnesium and was replaced today during day shift. Patient recently decreased to 2 liters of oxygen. Patient Status: DNR / DNI Diet: Jevity 1.2 Pending Orders: none Pending Results/Labs: swabs Pending MD notification:none Latest Vital Signs: Temperature 99.0 , Pulse 79 , B/P 150 /78 , Respiratory Rate 16 , O2 SAT 97 , Nasal Cannula, O2 Flow Rate 2.0 . Vital Sign Comment: oxygen stable at 2 liters Latest Bartholomew Fall Score: 70 Fall Risk: High Risk Safety Measures: Call light Within Reach, Bed Alarm Zone 3, Side Rails Side Rails x2, Bed position Low and Locked. Fall Precautions: Yellow Socks Yellow Gown Patient Fall Education Report given to Jesica CURRY.
--- NOTE | 2019-12-21 22:15 | NUR ---
NURSE NOTES: Received patient from tele; report from ANTOINETTE Donohue. Patient in bed, awake and nonverbal. On 2L oxygen via nasal cannula with no signs of distress or SOB. Left IJ access noted, dressing clean/dry/intact with fluids running as ordered. G-tube noted with Jevity 1.2 running as ordered. Manriquez in place and draining straw-colored urine. No belongings. Will take WCP. Bed locked and in lowest position. Call light in reach. Will continue plan of care.
--- NOTE | 2019-12-21 23:20 | NUR ---
NURSE NOTES: Wound care photos taken and uploaded. Patient tolerated well.
--- NOTE | 2019-12-21 23:59 | NUR ---
NURSE NOTES: Urine collected and sent to lab.
[2019-12-22] VITALS: BP 122/73
[2019-12-22 00:03] LABS: APPEARANCE,URINE CLEAR; BILIRUBIN, URINE NEGATIVE (NEGATIVE); COLOR,URINE PALE YELLOW; GLUCOSE, URINE (UA) NEGATIVE (NEGATIVE); KETONES,URINE NEGATIVE (NEGATIVE); LEUKOCYTE ESTERASE ,URINE 1+ (NEGATIVE); NITRITE,URINE NEGATIVE (NEGATIVE); PH,URINE 8 (4.5-8.0); PROTEIN,URINE 2+ (NEGATIVE); UROBILINOGEN,URINE NORMAL MG/DL (0.0-1.0)
[2019-12-22] MEDS: Vancomycin 750mg/D5W 275ml IVPB SCH ×4 (00:41→10:45)
[2019-12-22] MEDS: D5 1/2NS w/KCl 40meq 1000ml 1,000 ML IV SCH ×2 (03:20→12:00)
[2019-12-22 04:00] VITALS: BP 145/79
[2019-12-22] MEDS: NovoLOG Insulin Flexpen SUBQ SCH ×4 (05:40→21:00)
[2019-12-22 05:58] LABS: BASOPHILS % (AUTO) 1.4 % (0.0-2.0); EOSINOPHILS % (AUTO) 4.1 % (0.0-3.0); HEMOGLOBIN 8.5 G/DL (14.2-18.0); LYMPHOCYTES % (AUTO) 18.6 % (20.0-45.0); MEAN CORPUSCULAR VOLUME 92 FL (80-99); PLATELET COUNT 145 K/UL (150-450); RED BLOOD COUNT 2.73 M/UL (4.70-6.10); RED CELL DISTRIBUTION WIDTH 14.1 % (11.6-14.8); WHITE BLOOD COUNT 7.2 K/UL (4.8-10.8)
[2019-12-22 06:45] LABS: ANION GAP 8 mmol/L (5-15); BLOOD UREA NITROGEN 11 mg/dL (7-18); CARBON DIOXIDE 28 MMOL/L (21-32); CHLORIDE 103 MMOL/L (98-107); CREATININE 0.6 MG/DL (0.55-1.30); PHOSPHORUS 1.8 MG/DL (2.5-4.9); POTASSIUM 3.2 MMOL/L (3.5-5.1); SODIUM 139 MMOL/L (136-145)
--- NOTE | 2019-12-22 06:45 | NUR ---
NURSE NOTES: Spoke with Claudio from microbiology; patient's blood culture result positive for ESBL. Left message for Dr. Torres. Awaiting call back.
--- NOTE | 2019-12-22 07:15 | NUR ---
NURSE HAND-OFF: Important Events on Shift: Transfer from [facility], febrile, blood culture pos for ESBL Patient Status: Stable Diet: Jevity 1.2 Pending Orders: N/A Pending Results/Labs: CBC, BMP, Mag, Phos Pending MD notification: [place] for ESBL results Latest Vital Signs: Temperature 101.7 , Pulse 96 , B/P 145 /79 , Respiratory Rate 18 , O2 SAT 95 , Nasal Cannula, O2 Flow Rate 2.0 . Vital Sign Comment: Latest Bartholomew Fall Score: 70 Fall Risk: High Risk Safety Measures: Call light Within Reach, Bed Alarm Zone 3, Side Rails Side Rails x2, Bed position Low and Locked. Fall Precautions: Yellow Socks Yellow Gown Patient Fall Education Report given to ANTOINETTE Silva.
--- NOTE | 2019-12-22 07:29 | Hematology/Onc Progress Note ---
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 # BPH --> Chronic indwelling duggan. Continue proscar. # Dementia/FTT/Functional Quadriplegia, PEG tube dependent # Depression # Decubitus Ulcers/Diffuse Pressure wounds --> nutrition consulted for tube feeds --> Wound care consulted, recs appreciated # Pulm opacities --> per pulm # Nonverbal # Dementia # COPD # Dvt ppx hep Appreciate consultation and dw RN Subjective HEENT: Denies: no symptoms, eye pain, blurred vision, tearing, double vision, ear pain, ear discharge, nose pain, nose congestion, throat pain, throat swelling, mouth pain, mouth swelling, other Cardiovascular: Denies: no symptoms, chest pain, edema, irregular heart rate, lightheadedness, palpitations, syncope, other Respiratory: Denies: no symptoms, cough, shortness of breath, SOB with excertion, SOB at rest, sputum, wheezing, other Gastrointestinal/Abdominal: Denies: no symptoms, abdomen distended, abdominal pain, black stools, tarry stools, blood in stool, constipated, diarrhea, difficulty swallowing, nausea, poor appetite, poor fluid intake, rectal bleeding, vomiting, other Genitourinary: Denies: no symptoms, burning, discharge, frequency, flank pain, hematuria, incontinence, pain, urgency, other Neurologic/Psychiatric: Denies: no symptoms, anxiety, depressed, emotional problems, headache, numbness, paresthesia, pre-existing deficit, seizure, tingling, tremors, weakness, other Endocrine: Denies: no symptoms, excessive sweating, flushing, intolerance to cold, intolerance to heat, increased hunger, increased thirst, increased urine, unexplained weight gain, unexplained weight loss, other Allergies: Coded Allergies: No Known Allergies (Unverified , 08/20/18) Subjective 12/19 nv, is on abx, wbc improved,on ivfs continuously 12/20 on oxygen overnight with elev ddimer, i asked rn to order venous duplex, otherwise plt 110 10 on abx broad spectrum, on vanc/néstor labs reviewed, hgb stable, esbl in blood Objective Objective Current Medications Medications (Trade) Dose Ordered Sig/Altagracia Route PRN Reason Start Time Stop Time Status Last Admin Dose Admin Acetaminophen (Tylenol) 650 mg Q4H PRN ORAL Fever 12/18/19 05:15 01/17/20 05:14 12/22/19 04:32 Albuterol/ Ipratropium (Albuterol/ Ipratropium) 3 ml Q6H PRN HHN Shortness of Breath 12/18/19 05:45 12/23/19 05:44 12/21/19 23:31 Aspirin (ASA) 325 mg DAILY ORAL 12/19/19 11:00 02/02/20 10:59 12/21/19 09:20 Atorvastatin Calcium (Lipitor) 40 mg BEDTIME ORAL 12/19/19 21:00 03/18/20 20:59 12/21/19 21:03 Chlorhexidine Gluconate (Corazon-Hex 2%) 1 applic DAILY@2000 TOPIC 12/20/19 20:00 03/19/20 19:59 12/21/19 21:02 Dextrose (Dextrose 50%) 25 ml Q30M PRN IV Hypoglycemia 12/18/19 05:15 03/17/20 05:14 Dextrose (Dextrose 50%) 50 ml Q30M PRN IV Hypoglycemia 12/18/19 05:15 03/17/20 05:14 Dextrose/ Electrolytes 1,000 ml @ 75 mls/hr [id number] IV 12/21/19 14:00 01/20/20 13:59 12/21/19 14:12 Doxazosin Mesylate (Cardura) 1 mg DAILY GT 12/18/19 09:00 01/17/20 08:59 12/21/19 09:20 Ergocalciferol (Drisdol) 50,000 intlu ONCE A WEEK ORAL 12/19/19 09:00 01/18/20 08:59 12/19/19 10:33 Finasteride (Proscar) 5 mg DAILY ORAL 12/18/19 09:00 03/17/20 08:59 12/21/19 09:20 Heparin Sodium (Porcine) (Heparin 5000 units/ml) 5,000 units EVERY 12 HOURS SUBQ 12/18/19 09:00 02/01/20 08:59 12/21/19 21:04 Insulin Aspart (NovoLOG) BEFORE MEALS AND HS SUBQ 12/18/19 06:30 03/17/20 06:29 Isoniazid (Inh) 300 mg DAILY GT 12/18/19 09:00 01/17/20 08:59 12/21/19 09:20 Lactobacillus Acidophilus (Culturelle) 1 tab TWICE A DAY GT 12/18/19 09:00 03/17/20 08:59 12/21/19 18:11 Meropenem 1 gm/ Sodium Chloride 100 ml @ 200 mls/hr Q8HR IVPB 12/21/19 22:00 12/26/19 21:59 12/22/19 05:00 Ondansetron HCl (Zofran) 4 mg Q6H PRN IVP Nausea & Vomiting 12/18/19 05:15 01/17/20 05:14 Pantoprazole (Protonix) 40 mg EVERY 12 HOURS IVP 12/18/19 21:00 01/17/20 20:59 12/21/19 21:03 Phosphorus (Phospha 250 Neutral) 250 mg THREE TIMES A DAY ORAL 12/21/19 09:00 12/24/19 09:00 12/21/19 18:11 Pyridoxine HCl (Vitamin B6) 50 mg DAILY GT 12/18/19 09:00 01/17/20 08:59 12/21/19 09:20 Vancomycin HCl (Vanco pharmacy to dose) 1 ea DAILY PRN MISC PER RX PROTOCOL 12/18/19 06:45 01/17/20 06:44 Vancomycin HCl 750 mg/Dextrose 275 ml @ 183.333 mls/hr Q8H IVPB 12/21/19 17:00 12/26/19 16:59 12/22/19 00:41 Last 24 Hour Vital Signs Date Time Temp Pulse Resp B/P (MAP) Pulse Ox O2 Delivery O2 Flow Rate FiO2 12/22/19 05:02 101.7 12/22/19 04:00 101.8 96 18 145/79 (101) 95 12/22/19 00:00 98.2 92 16 122/73 (89) 96 12/21/19 23:34 85 18 100 Nasal Cannula 2.0 28 82 16 98 12/21/19 22:30 Nasal Cannula 2.0 12/21/19 21:00 Nasal Cannula 2.0 12/21/19 20:00 99.0 79 16 150/78 (102) 97 12/21/19 20:00 79 12/21/19 16:00 63 12/21/19 16:00 97.9 74 22 102/64 (77) 97 12/21/19 13:39 96.8 12/21/19 12:00 62 12/21/19 11:08 100.8 78 20 97/45 (62) 98 12/21/19 09:00 Nasal Cannula 2.0 12/21/19 08:00 74 12/21/19 08:00 98.4 64 18 111/54 (73) 97 12/21/19 04:00 66 12/21/19 04:00 98.8 66 18 131/72 (91) 97 12/21/19 01:25 99.4 12/21/19 00:50 100.6 12/21/19 00:00 84 12/21/19 00:00 99.0 84 18 135/74 (94) 97 12/20/19 21:00 Simple Mask 6.0 12/20/19 20:00 98.4 84 19 135/77 (96) 98 12/20/19 20:00 84 12/20/19 16:00 98.4 75 22 124/65 (84) 100 12/20/19 16:00 70 12/20/19 12:00 98.4 76 22 117/67 (84) 100 12/20/19 12:00 51 12/20/19 09:00 Simple Mask 6.0 12/20/19 08:00 99.0 88 20 112/76 (88) 100 12/20/19 08:00 66 Intake and Output 12/21/19 12/22/19 18:59 06:59 Intake Total 1992.2 ml Output Total 2600 ml 1500 ml Balance -607.8 ml -1500 ml IV Total 1432.2 ml Tube Feeding 560 ml Output Urine Total 2600 ml 1500 ml # Bowel Movements 1 Labs Test 12/19/19 11:59 12/19/19 17:23 12/19/19 21:05 12/20/19 05:00 POC Whole Blood Glucose 85 MG/DL (74-106) 95 MG/DL (74-106) 115 MG/DL (74-106) Stool Occult Blood Negative (NEGATIVE) Test 12/20/19 05:40 12/20/19 08:45 12/21/19 03:00 12/21/19 11:28 POC Whole Blood Glucose 104 MG/DL (74-106) White Blood Count 14.9 K/UL (4.8-10.8) 9.5 K/UL (4.8-10.8) Red Blood Count 2.43 M/UL (4.70-6.10) 2.47 M/UL (4.70-6.10) Hemoglobin 7.6 G/DL (14.2-18.0) 7.8 G/DL (14.2-18.0) Hematocrit 22.6 % (42.0-52.0) 22.6 % (42.0-52.0) Mean Corpuscular Volume 93 FL (80-99) 92 FL (80-99) Mean Corpuscular Hemoglobin 31.2 PG (27.0-31.0) 31.4 PG (27.0-31.0) Mean Corpuscular Hemoglobin Concent 33.5 G/DL (32.0-36.0) 34.3 G/DL (32.0-36.0) Red Cell Distribution Width 14.4 % (11.6-14.8) 13.7 % (11.6-14.8) Platelet Count 114 K/UL (150-450) 114 K/UL (150-450) Mean Platelet Volume 8.5 FL (6.5-10.1) 8.5 FL (6.5-10.1) Neutrophils (%) (Auto) % (45.0-75.0) % (45.0-75.0) Lymphocytes (%) (Auto) % (20.0-45.0) % (20.0-45.0) Monocytes (%) (Auto) % (1.0-10.0) % (1.0-10.0) Eosinophils (%) (Auto) % (0.0-3.0) % (0.0-3.0) Basophils (%) (Auto) % (0.0-2.0) % (0.0-2.0) Differential Total Cells Counted 100 Neutrophils % (Manual) 92 % (45-75) Lymphocytes % (Manual) 6 % (20-45) Monocytes % (Manual) 1 % (1-10) Eosinophils % (Manual) 0 % (0-3) Basophils % (Manual) 1 % (0-2) Band Neutrophils 0 % (0-8) Platelet Estimate Decreased Platelet Morphology Normal Hypochromasia 3+ Anisocytosis 1+ Spherocytes 2+ Sodium Level 144 MMOL/L (136-145) 139 MMOL/L (136-145) Potassium Level 3.4 MMOL/L (3.5-5.1) 2.9 MMOL/L (3.5-5.1) Chloride Level 110 MMOL/L (98-107) 104 MMOL/L (98-107) Carbon Dioxide Level 22 MMOL/L (21-32) 26 MMOL/L (21-32) Anion Gap 12 mmol/L (5-15) 9 mmol/L (5-15) Blood Urea Nitrogen 15 mg/dL (7-18) 13 mg/dL (7-18) Creatinine 0.7 MG/DL (0.55-1.30) 0.6 MG/DL (0.55-1.30) Estimat Glomerular Filtration Rate > 60 mL/min (>60) > 60 mL/min (>60) Glucose Level 112 MG/DL (74-106) 129 MG/DL (74-106) Calcium Level 8.2 MG/DL (8.5-10.1) 7.8 MG/DL (8.5-10.1) Phosphorus Level 1.5 MG/DL (2.5-4.9) 1.2 MG/DL (2.5-4.9) Magnesium Level 1.8 MG/DL (1.8-2.4) 1.6 MG/DL (1.8-2.4) Vancomycin Level Trough 6.4 ug/mL (5.0-12.0) Random Amikacin Level 6.2 MG/L Test 12/21/19 16:00 12/21/19 20:56 12/21/19 23:30 12/22/19 04:45 Vancomycin Level Trough 9.5 ug/mL (5.0-12.0) POC Whole Blood Glucose 119 MG/DL (74-106) Urine Color Pale yellow Urine Appearance Clear Urine pH 8 (4.5-8.0) Urine Specific [place] 1.010 (1.005-1.035) Urine Protein 2+ (NEGATIVE) Urine Glucose (UA) Negative (NEGATIVE) Urine Ketones Negative (NEGATIVE) Urine Blood 3+ (NEGATIVE) Urine Nitrite Negative (NEGATIVE) Urine Bilirubin Negative (NEGATIVE) Urine Urobilinogen Normal MG/DL (0.0-1.0) Urine Leukocyte Esterase 1+ (NEGATIVE) Urine RBC 10-15 /HPF (0 - 0) Urine WBC 0-2 /HPF (0 - 0) Urine Squamous Epithelial Cells None /LPF (NONE/OCC) Urine Bacteria None /HPF (NONE) White Blood Count 7.2 K/UL (4.8-10.8) Red Blood Count 2.73 M/UL (4.70-6.10) Hemoglobin 8.5 G/DL (14.2-18.0) Hematocrit 25.0 % (42.0-52.0) Mean Corpuscular Volume 92 FL (80-99) Mean Corpuscular Hemoglobin 31.1 PG (27.0-31.0) Mean Corpuscular Hemoglobin Concent 34.0 G/DL (32.0-36.0) Red Cell Distribution Width 14.1 % (11.6-14.8) Platelet Count 145 K/UL (150-450) Mean Platelet Volume 9.1 FL (6.5-10.1) Neutrophils (%) (Auto) 67.0 % (45.0-75.0) Lymphocytes (%) (Auto) 18.6 % (20.0-45.0) Monocytes (%) (Auto) 9.0 % (1.0-10.0) Eosinophils (%) (Auto) 4.1 % (0.0-3.0) Basophils (%) (Auto) 1.4 % (0.0-2.0) Sodium Level 139 MMOL/L (136-145) Potassium Level 3.2 MMOL/L (3.5-5.1) Chloride Level 103 MMOL/L (98-107) Carbon Dioxide Level 28 MMOL/L (21-32) Anion Gap 8 mmol/L (5-15) Blood Urea Nitrogen 11 mg/dL (7-18) Creatinine 0.6 MG/DL (0.55-1.30) Estimat Glomerular Filtration Rate > 60 mL/min (>60) Glucose Level 105 MG/DL (74-106) Calcium Level 8.0 MG/DL (8.5-10.1) Phosphorus Level 1.8 MG/DL (2.5-4.9) Magnesium Level 1.9 MG/DL (1.8-2.4) Height (Feet): 5 Height (Inches): 4.00 Weight (Pounds): 140 Objective General Appearance: nad, alert, confused Lines, tubes and drains: peripheral, central line HEENT: normocephalic Neck: non-tender Respiratory/Chest: lungs clear Cardiovascular/Chest: normal peripheral pulses Abdomen: normal bowel sounds, soft ++peg Extremities: normal range of motion Skin Exam: warm/dry Musculoskeletal: atrophy : ++Jose Guadalupe Putnam MD Dec 22, 2019 07:29
--- NOTE | 2019-12-22 07:43 | NUR ---
NURSE NOTES: Report received from Jesica CURRY. Patient seen on rounds, AxOx0, GCS, on O2 at 2lpm via NC, no signs of distress, GCS8 (E3, V1, M4) FLACC score 0, nurse reports patient was febrile overnight Tmax 101.8F, Tylenol and cooling measures done with minimal relief. Noted DNR/DNI status. Left IJ central catheter noted infusing D5 1/2NS + 40 KCL @ 75ml/hr. Gtube patent and running Jevity 1.2 @ 70ml/hr, no residuals reported. HOB at 45 degrees. Manriquez cath secured and draining well. Wound dressing noted over sacrum, bilateral hips, and bilateral feet. Bed low and locked, siderails up x2, alarms on zone 1, will continue to monitor.
[2019-12-22 08:00] VITALS: BP 130/76
[2019-12-22] MEDS: Pyridoxine 50mg tab GT SCH (08:24)
[2019-12-22] MEDS: Phospha 250 Neutral tab ORAL SCH ×3 (08:24→17:54)
[2019-12-22] MEDS: Doxazosin 1mg Tab GT SCH (08:24)
[2019-12-22] MEDS: Isoniazid 300mg tab GT SCH (08:25)
[2019-12-22] MEDS: Lactobacillus-GG tablet GT SCH ×2 (08:25→17:54)
[2019-12-22] MEDS: Pantoprazole Inj IVP SCH ×2 (08:25→20:44)
[2019-12-22] MEDS: Heparin 5000 units/ml inj SUBQ SCH ×2 (08:26→20:46)
--- NOTE | 2019-12-22 08:59 | General Progress Note ---
Subjective ROS Limited/Unobtainable: Yes - non verbal, altered Allergies: Coded Allergies: No Known Allergies (Unverified , 08/20/18) Subjective No acute events overnight. T-max 101.8 vitals otherwise stable. Downgraded from tele. Now on 2L NC. Resting comfortably. Objective Last 24 Hour Vital Signs Date Time Temp Pulse Resp B/P (MAP) Pulse Ox O2 Delivery O2 Flow Rate FiO2 12/22/19 05:02 101.7 12/22/19 04:00 101.8 96 18 145/79 (101) 95 12/22/19 00:00 98.2 92 16 122/73 (89) 96 12/21/19 23:34 85 18 100 Nasal Cannula 2.0 28 82 16 98 12/21/19 22:30 Nasal Cannula 2.0 12/21/19 21:00 Nasal Cannula 2.0 12/21/19 20:00 99.0 79 16 150/78 (102) 97 12/21/19 20:00 79 12/21/19 16:00 63 12/21/19 16:00 97.9 74 22 102/64 (77) 97 12/21/19 13:39 96.8 12/21/19 12:00 62 12/21/19 11:08 100.8 78 20 97/45 (62) 98 12/21/19 09:00 Nasal Cannula 2.0 Intake and Output 12/21/19 12/22/19 18:59 06:59 Intake Total 1992.2 ml Output Total 2600 ml 1500 ml Balance -607.8 ml -1500 ml IV Total 1432.2 ml Tube Feeding 560 ml Output Urine Total 2600 ml 1500 ml # Bowel Movements 1 Laboratory Tests 12/21/19 11:28: POC Whole Blood Glucose [Pending] 12/21/19 16:00: Vancomycin Level Trough 9.5 12/21/19 20:56: POC Whole Blood Glucose 119H 12/21/19 23:30: Urine Color Pale yellow, Urine Appearance Clear, Urine pH 8, Urine Specific [place] 1.010, Urine Protein 2+H, Urine Glucose (UA) Negative, Urine Ketones Negative, Urine Blood 3+H, Urine Nitrite Negative, Urine Bilirubin Negative, Urine Urobilinogen Normal, Urine Leukocyte Esterase 1+H, Urine RBC 10-15H, Urine WBC 0-2, Urine Squamous Epithelial Cells None, Urine Bacteria None 12/22/19 04:45: White Blood Count 7.2, Red Blood Count 2.73L, Hemoglobin 8.5L, Hematocrit 25.0L, Mean Corpuscular Volume 92, Mean Corpuscular Hemoglobin 31.1H, Mean Corpuscular Hemoglobin Concent 34.0, Red Cell Distribution Width 14.1, Platelet Count 145L, Mean Platelet Volume 9.1, Neutrophils (%) (Auto) 67.0, Lymphocytes (%) (Auto) 18.6L, Monocytes (%) (Auto) 9.0, Eosinophils (%) (Auto) 4.1H, Basophils (%) (Auto) 1.4, Sodium Level 139, Potassium Level 3.2L, Chloride Level 103, Carbon Dioxide Level 28, Anion Gap 8, Blood Urea Nitrogen 11, Creatinine 0.6, Estimat Glomerular Filtration Rate > 60, Glucose Level 105, Calcium Level 8.0L, Phosphorus Level 1.8L, Magnesium Level 1.9 Height (Feet): 5 Height (Inches): 4.00 Weight (Pounds): 140 General Appearance: no apparent distress, confused, other - non verbal EENT: PERRL/EOMI Neck: normal alignment, normal inspection Cardiovascular: normal rate, regular rhythm, regularly irregular Respiratory/Chest: lungs clear, normal breath sounds, no respiratory distress Abdomen: normal bowel sounds, no mass, other - gtube Extremities: other - limited ROM, contractures Edema: no edema noted Arm (L), no edema noted Arm (R), no edema noted Leg (L), no edema noted Leg (R), no edema noted Pedal (L), no edema noted Pedal (R), no edema noted Generalized Neurologic: chief operator lock tender II-XII grossly normal, disoriented - non verbal, does not follow simple commands Assessment/Plan Assessment/Plan: 73-year-old male with PMH of advanced dementia (bedbound, nonverbal, PEG dependent at baseline), dysphasia s/p PEG tube, COPD, HTN, depression, PVCs, GERD, functional quadriplegia, adult failure to thrive, sacral ulcer who prese nts from rehab facility for septic shock. #Septic Shock 2/2 Complicated UTI # ESBL Ecoli and Proteus Bacteremia # Fevers # Hospital Acquired RLL PNA # Multiple decubitus Ulcers -Off Levophed now and BP remains over MAP 65 -continue vanc, merrem per ID - persistent fevers, wbc normalized - f/u esr, crp, repeat BC - repeat UA negative - consider C/A/P CT if fevers persist -Manriquez care -Evaluated by General surgery and does not appear to be source of sepsis -Wound care -Consult to ID - appreciate recs #Acute hypoxic respiratory failure - improving - titrated off simple mask to 2L NC - keep O2 > 92%, monitor for increased O2 support - duonebs prn - CXR reviewed with new RLL PNA - pulm following - # Thrombocytponenia - normalized - likley from infection - unlikely HIT given timing of downtrending #Latent TB -4 AFBs collected - all 4 of them found to be negative (11/13, 11/14, 11/15, and 11/17). -T spot was positive which is in accordance with latent TB. -ID was consulted for further mangagement. -Patient was started on INH and Pyridoxine to be continued for total of 9 months. #Failure to thrive #Severe Malnourishment #Dysphagia eith G tube -Continue Tube feeds -Nutrition consult #Elevated troponin - ASA 325 given - High dose statin - EKG - Cardiology following # Anemia of chronic Dx - Trend Hg - Transfuse for Hg less than 8 if ACS - Consult to hematology CODE: DNR/DNI DVT: Heparin 5000 Subq BID Abx: amikacin, merrem Fluids: 75 cc /2 NS Diet: TF Gi: PPI 40 mg BID Dispo: DC to SNF once fevers resolves, following repeat cultures I spent 35 minutes on this encounter with 21 min coordinating care and counseling. I discussed with all consultants and RNs. Time of note may not reflect time patient was seen. Gorge Stone D.O Dec 22, 2019 08:59
--- NOTE | 2019-12-22 09:00 | NUR ---
NURSE NOTES: Notified Dr. Levine that venous and arterial duplex could not be done because patient was severly contracted on bilateral lower extremities. Awaiting response.
--- NOTE | 2019-12-22 09:47 | Pulmonology Progress Note ---
Subjective ROS Limited/Unobtainable: Yes - non verbal, altered Interval Events: None new reported Constitutional: Denies: fever HEENT: Repors: no symptoms Respiratory: Reports: no symptoms Cardiovascular: Reports: no symptoms Gastrointestinal/Abdominal: Denies: nausea, vomiting, diarrhea Psychiatric: Denies: depression Skin: Denies: rash Musculoskeletal: Denies: pain Allergies: Coded Allergies: No Known Allergies (Unverified , 08/20/18) All Systems: reviewed and negative except above Objective Last 24 Hour Vital Signs Date Time Temp Pulse Resp B/P (MAP) Pulse Ox O2 Delivery O2 Flow Rate FiO2 12/22/19 05:02 101.7 12/22/19 04:00 101.8 96 18 145/79 (101) 95 12/22/19 00:00 98.2 92 16 122/73 (89) 96 12/21/19 23:34 85 18 100 Nasal Cannula 2.0 28 82 16 98 12/21/19 22:30 Nasal Cannula 2.0 12/21/19 21:00 Nasal Cannula 2.0 12/21/19 20:00 99.0 79 16 150/78 (102) 97 12/21/19 20:00 79 12/21/19 16:00 63 12/21/19 16:00 97.9 74 22 102/64 (77) 97 12/21/19 13:39 96.8 12/21/19 12:00 62 12/21/19 11:08 100.8 78 20 97/45 (62) 98 Intake and Output 12/21/19 12/22/19 18:59 06:59 Intake Total 1992.2 ml Output Total 2600 ml 1500 ml Balance -607.8 ml -1500 ml IV Total 1432.2 ml Tube Feeding 560 ml Output Urine Total 2600 ml 1500 ml # Bowel Movements 1 General Appearance: no acute distress HEENT: normocephalic Respiratory: chest wall non-tender, lungs clear Cardiovascular: normal peripheral pulses Abdomen: normal bowel sounds Laboratory Tests 12/21/19 11:28: POC Whole Blood Glucose [Pending] 12/21/19 16:00: Vancomycin Level Trough 9.5 12/21/19 20:56: POC Whole Blood Glucose 119H 12/21/19 23:30: Urine Color Pale yellow, Urine Appearance Clear, Urine pH 8, Urine Specific [place] 1.010, Urine Protein 2+H, Urine Glucose (UA) Negative, Urine Ketones Negative, Urine Blood 3+H, Urine Nitrite Negative, Urine Bilirubin Negative, Urine Urobilinogen Normal, Urine Leukocyte Esterase 1+H, Urine RBC 10-15H, Urine WBC 0-2, Urine Squamous Epithelial Cells None, Urine Bacteria None 12/22/19 04:45: White Blood Count 7.2, Red Blood Count 2.73L, Hemoglobin 8.5L, Hematocrit 25.0L, Mean Corpuscular Volume 92, Mean Corpuscular Hemoglobin 31.1H, Mean Corpuscular Hemoglobin Concent 34.0, Red Cell Distribution Width 14.1, Platelet Count 145L, Mean Platelet Volume 9.1, Neutrophils (%) (Auto) 67.0, Lymphocytes (%) (Auto) 18.6L, Monocytes (%) (Auto) 9.0, Eosinophils (%) (Auto) 4.1H, Basophils (%) (Auto) 1.4, Erythrocyte Sedimentation Rate [Pending], Sodium Level 139, Potassium Level 3.2L, Chloride Level 103, Carbon Dioxide Level 28, Anion Gap 8, Blood Urea Nitrogen 11, Creatinine 0.6, Estimat Glomerular Filtration Rate > 60, Glucose Level 105, Calcium Level 8.0L, Phosphorus Level 1.8L, Magnesium Level 1.9, C-Reactive Protein, Quantitative 14.7H Current Medications Medications (Trade) Dose Ordered Sig/Altagracia Route PRN Reason Start Time Stop Time Status Last Admin Dose Admin Acetaminophen (Tylenol) 650 mg Q4H PRN ORAL Fever 12/18/19 05:15 01/17/20 05:14 12/22/19 04:32 Albuterol/ Ipratropium (Albuterol/ Ipratropium) 3 ml Q6H PRN HHN Shortness of Breath 12/18/19 05:45 12/23/19 05:44 12/21/19 23:31 Aspirin (ASA) 325 mg DAILY ORAL 12/19/19 11:00 02/02/20 10:59 12/22/19 08:24 Atorvastatin Calcium (Lipitor) 40 mg BEDTIME ORAL 12/19/19 21:00 03/18/20 20:59 12/21/19 21:03 Chlorhexidine Gluconate (Corazon-Hex 2%) 1 applic DAILY@1999 TOPIC 12/20/19 20:00 03/19/20 19:59 12/21/19 21:02 Dextrose (Dextrose 50%) 25 ml Q30M PRN IV Hypoglycemia 12/18/19 05:15 03/17/20 05:14 Dextrose (Dextrose 50%) 50 ml Q30M PRN IV Hypoglycemia 12/18/19 05:15 03/17/20 05:14 Dextrose/ Electrolytes 1,000 ml @ 75 mls/hr [id number] IV 12/21/19 14:00 01/20/20 13:59 12/21/19 14:12 Doxazosin Mesylate (Cardura) 1 mg DAILY GT 12/18/19 09:00 01/17/20 08:59 12/22/19 08:24 Ergocalciferol (Drisdol) 50,000 intlu ONCE A WEEK ORAL 12/19/19 09:00 01/18/20 08:59 12/19/19 10:33 Finasteride (Proscar) 5 mg DAILY ORAL 12/18/19 09:00 03/17/20 08:59 12/22/19 08:24 Heparin Sodium (Porcine) (Heparin 5000 units/ml) 5,000 units EVERY 12 HOURS SUBQ 12/18/19 09:00 02/01/20 08:59 12/22/19 08:26 Insulin Aspart (NovoLOG) BEFORE MEALS AND HS SUBQ 12/18/19 06:30 03/17/20 06:29 Isoniazid (Inh) 300 mg DAILY GT 12/18/19 09:00 01/17/20 08:59 12/22/19 08:25 Lactobacillus Acidophilus (Culturelle) 1 tab TWICE A DAY GT 12/18/19 09:00 03/17/20 08:59 12/22/19 08:25 Meropenem 1 gm/ Sodium Chloride 100 ml @ 200 mls/hr Q8HR IVPB 12/21/19 22:00 12/26/19 21:59 12/22/19 05:00 Ondansetron HCl (Zofran) 4 mg Q6H PRN IVP Nausea & Vomiting 12/18/19 05:15 01/17/20 05:14 Pantoprazole (Protonix) 40 mg EVERY 12 HOURS IVP 12/18/19 21:00 01/17/20 20:59 12/22/19 08:25 Phosphorus (Phospha 250 Neutral) 250 mg THREE TIMES A DAY ORAL 12/21/19 09:00 12/24/19 09:00 12/22/19 08:24 Pyridoxine HCl (Vitamin B6) 50 mg DAILY GT 12/18/19 09:00 01/17/20 08:59 12/22/19 08:24 Vancomycin HCl (Vanco pharmacy to dose) 1 ea DAILY PRN MISC PER RX PROTOCOL 12/18/19 06:45 01/17/20 06:44 Vancomycin HCl 750 mg/Dextrose 275 ml @ 183.333 mls/hr Q8H IVPB 12/21/19 17:00 12/26/19 16:59 12/22/19 00:41 Assessment/Plan Assessment/Plan Septic shock due to UTI, Hypoxemia; on simple O2 mask Azotemia Advanced Dementia H/o Hypertension COPD Latent TB Previous CVA Previous PEG for dysphasia/GERD Depression Functional quadriplegia Adult failure to thrive Sacral decubitus ulcer Impression: - IVF - renal following - IV Antibiotics per ID - Monitor labs - Supplemental o2 - PTAMeds - PPX - DNAR/DNI status No longer on pressors Saturating well on 2L/min o2 Easton Arzola MD Dec 22, 2019 09:47
--- NOTE | 2019-12-22 09:52 | NUR ---
NURSE NOTES: Received orders from Dr. Stone to insert PIV and D/C central line. Orders noted and carried out.
--- NOTE | 2019-12-22 10:34 | NUR ---
NURSE NOTES: Sputum collected by RT and sent down to lab.
--- NOTE | 2019-12-22 10:59 | NUR ---
RD ASSESSMENT & RECOMMENDATIONS SEE CARE ACTIVITY FOR COMPLETE ASSESSMENT DAILY ESTIMATED NEEDS: Needs based on Wounds, [employer] TF/ 52.5kg 30-33 kcals/kg 6963-9899 total kcals 1.25-1.5 g protein/kg 65-78 g total protein 25-30 mL/kg 8751-6152 total fluid mLs NUTRITION DIAGNOSIS: * Swallowing difficulty R/T dysphagia as evidenced by pt is PEG dep. * Increased kcal/prot intake needs R/T wound healing as evidenced by pt admitted w/ multiple wounds including DTPI @ L Hip, R lumbar, BL trochanter, and sacrum, unstageable wound @ distal/lateral R foot and R 4th metatarsal, and nonblanching erythema @ LR foot and R hallux. CURRENT TF:Jevity 1.2 @ 70ml/hr x 20 hrs ENTERAL NUTRITION RECOMMENDATIONS: Jevity 1.2 @ 70ml/hr x 20 hrs to provide 1400ml, 1680kcal, 78g prot, 1130ml free water * Maintain current TF: meets 100% est kcal/prot needs * HOB over 30 degrees/ water flush per MD ADDITIONAL RECOMMENDATIONS: * CALIBRATED BEDSCALE WT * Wound care: add Vit C/ TF @ goal provides 100% RDI Add YUNIOR in 4oz H2O via GT BID * Monitor lytes, replete as needed (K, phos low) . . .
[2019-12-22 12:00] VITALS: BP 127/77
[2019-12-22] MEDS ORDERED: Gentamicin Rx monitoring MISC PRN (15:00)
--- NOTE | 2019-12-22 15:04 | Cardiac Electrophysiology PN ---
Assessment/Plan Assessment/Plan 1. Sinus tachycardia due due to sepsis with white count of 22,000. Patient is already on IV antibiotic per ID. Now at time leroy in 50s 2. S/P septic shock, currently off pressors 3. Advanced dementia, bedbound, nonverbal, and care dependent. 4. Dysphagia, status post PEG placement. 5. COPD. 6. Functional quadriplegia. 7. Sacral decubitus. 8. Fever and Lactic acidosis. On iv abx per ID. KARLEY RN Subjective Subjective Nonverbal. In Sinus leroy in 50s. GT feeding ongoing.Febrile again and Left IJ line was removed Objective Last 24 Hour Vital Signs Date Time Temp Pulse Resp B/P (MAP) Pulse Ox O2 Delivery O2 Flow Rate FiO2 12/22/19 09:00 Nasal Cannula 2.0 12/22/19 08:00 99.0 91 20 130/76 (94) 96 12/22/19 05:02 101.7 12/22/19 04:00 101.8 96 18 145/79 (101) 95 12/22/19 00:00 98.2 92 16 122/73 (89) 96 12/21/19 23:34 85 18 100 Nasal Cannula 2.0 28 82 16 98 12/21/19 22:30 Nasal Cannula 2.0 12/21/19 21:00 Nasal Cannula 2.0 12/21/19 20:00 99.0 79 16 150/78 (102) 97 12/21/19 20:00 79 12/21/19 16:00 63 12/21/19 16:00 97.9 74 22 102/64 (77) 97 Intake and Output 12/21/19 12/22/19 19:00 07:00 Intake Total 1917.2 ml Output Total 2600 ml 1500 ml Balance -682.8 ml -1500 ml IV Total 1357.2 ml Tube Feeding 560 ml Output Urine Total 2600 ml 1500 ml # Bowel Movements 1 Laboratory Tests Test 12/21/19 16:00 12/21/19 20:56 12/21/19 23:30 12/22/19 04:45 Vancomycin Level Trough 9.5 ug/mL (5.0-12.0) POC Whole Blood Glucose 119 MG/DL (74-106) H Urine Color Pale yellow Urine Appearance Clear Urine pH 8 (4.5-8.0) Urine Specific [place] 1.010 (1.005-1.035) Urine Protein 2+ (NEGATIVE) H Urine Glucose (UA) Negative (NEGATIVE) Urine Ketones Negative (NEGATIVE) Urine Blood 3+ (NEGATIVE) H Urine Nitrite Negative (NEGATIVE) Urine Bilirubin Negative (NEGATIVE) Urine Urobilinogen Normal MG/DL (0.0-1.0) Urine Leukocyte Esterase 1+ (NEGATIVE) H Urine RBC 10-15 /HPF (0 - 0) H Urine WBC 0-2 /HPF (0 - 0) Urine Squamous Epithelial Cells None /LPF (NONE/OCC) Urine Bacteria None /HPF (NONE) White Blood Count 7.2 K/UL (4.8-10.8) Red Blood Count 2.73 M/UL (4.70-6.10) L Hemoglobin 8.5 G/DL (14.2-18.0) L Hematocrit 25.0 % (42.0-52.0) L Mean Corpuscular Volume 92 FL (80-99) Mean Corpuscular Hemoglobin 31.1 PG (27.0-31.0) H Mean Corpuscular Hemoglobin Concent 34.0 G/DL (32.0-36.0) Red Cell Distribution Width 14.1 % (11.6-14.8) Platelet Count 145 K/UL (150-450) L Mean Platelet Volume 9.1 FL (6.5-10.1) Neutrophils (%) (Auto) 67.0 % (45.0-75.0) Lymphocytes (%) (Auto) 18.6 % (20.0-45.0) L Monocytes (%) (Auto) 9.0 % (1.0-10.0) Eosinophils (%) (Auto) 4.1 % (0.0-3.0) H Basophils (%) (Auto) 1.4 % (0.0-2.0) Erythrocyte Sedimentation Rate 111 MM/HR (0-20) H Sodium Level 139 MMOL/L (136-145) Potassium Level 3.2 MMOL/L (3.5-5.1) L Chloride Level 103 MMOL/L (98-107) Carbon Dioxide Level 28 MMOL/L (21-32) Anion Gap 8 mmol/L (5-15) Blood Urea Nitrogen 11 mg/dL (7-18) Creatinine 0.6 MG/DL (0.55-1.30) Estimat Glomerular Filtration Rate > 60 mL/min (>60) Glucose Level 105 MG/DL (74-106) Calcium Level 8.0 MG/DL (8.5-10.1) L Phosphorus Level 1.8 MG/DL (2.5-4.9) L Magnesium Level 1.9 MG/DL (1.8-2.4) C-Reactive Protein, Quantitative 14.7 mg/dL (0.00-0.90) H Objective HEAD AND NECK: No JVD. LUNGS: Coarse rhonchi. CARDIOVASCULAR: Regular S1 and S2 and tachycardic. ABDOMEN: Soft. Status post G-tube. EXTREMITIES: Contracted. Ismael Christine MD Dec 22, 2019 15:04
--- NOTE | 2019-12-22 15:16 | Nephrology Progress Note ---
Assessment/Plan Plan #BRYANT due to pre- renal azotemia in the setting of sepsis - r/o ATN #septic shock due to UTI #advanced dementia (bedbound, nonverbal, PEG dependent at baseline) #dysphasia s/p PEG tube #COPD #HTN #Depression - continue IVF - antibiotics - monitor vanco level closely - pressors to maintain MAP> 65 - hold antihypetensives - further work up if no improvement in renal function with hydration Subjective ROS Limited/Unobtainable: Yes Subjective Cr improved vitals stable K low repleted Objective Objective Last 24 Hour Vital Signs Date Time Temp Pulse Resp B/P (MAP) Pulse Ox O2 Delivery O2 Flow Rate FiO2 12/22/19 09:00 Nasal Cannula 2.0 12/22/19 08:00 99.0 91 20 130/76 (94) 96 12/22/19 05:02 101.7 12/22/19 04:00 101.8 96 18 145/79 (101) 95 12/22/19 00:00 98.2 92 16 122/73 (89) 96 12/21/19 23:34 85 18 100 Nasal Cannula 2.0 28 82 16 98 12/21/19 22:30 Nasal Cannula 2.0 12/21/19 21:00 Nasal Cannula 2.0 12/21/19 20:00 99.0 79 16 150/78 (102) 97 12/21/19 20:00 79 12/21/19 16:00 63 12/21/19 16:00 97.9 74 22 102/64 (77) 97 Intake and Output 12/21/19 12/22/19 19:00 07:00 Intake Total 1917.2 ml Output Total 2600 ml 1500 ml Balance -682.8 ml -1500 ml IV Total 1357.2 ml Tube Feeding 560 ml Output Urine Total 2600 ml 1500 ml # Bowel Movements 1 Laboratory Tests 12/21/19 16:00: Vancomycin Level Trough 9.5 12/21/19 20:56: POC Whole Blood Glucose 119H 12/21/19 23:30: Urine Color Pale yellow, Urine Appearance Clear, Urine pH 8, Urine Specific [place] 1.010, Urine Protein 2+H, Urine Glucose (UA) Negative, Urine Ketones Negative, Urine Blood 3+H, Urine Nitrite Negative, Urine Bilirubin Negative, Urine Urobilinogen Normal, Urine Leukocyte Esterase 1+H, Urine RBC 10-15H, Urine WBC 0-2, Urine Squamous Epithelial Cells None, Urine Bacteria None 12/22/19 04:45: White Blood Count 7.2, Red Blood Count 2.73L, Hemoglobin 8.5L, Hematocrit 25.0L, Mean Corpuscular Volume 92, Mean Corpuscular Hemoglobin 31.1H, Mean Corpuscular Hemoglobin Concent 34.0, Red Cell Distribution Width 14.1, Platelet Count 145L, Mean Platelet Volume 9.1, Neutrophils (%) (Auto) 67.0, Lymphocytes (%) (Auto) 18.6L, Monocytes (%) (Auto) 9.0, Eosinophils (%) (Auto) 4.1H, Basophils (%) (Auto) 1.4, Erythrocyte Sedimentation Rate 111H, Sodium Level 139, Potassium Level 3.2L, Chloride Level 103, Carbon Dioxide Level 28, Anion Gap 8, Blood Urea Nitrogen 11, Creatinine 0.6, Estimat Glomerular Filtration Rate > 60, Glucose Level 105, Calcium Level 8.0L, Phosphorus Level 1.8L, Magnesium Level 1.9, C- Reactive Protein, Quantitative 14.7H Height (Feet): 5 Height (Inches): 4.00 Weight (Pounds): 140 Objective General Appearance: no apparent distress, alert, confused Lines, tubes and drains: peripheral, central line HEENT: normocephalic Neck: non-tender Respiratory/Chest: lungs clear Cardiovascular/Chest: normal peripheral pulses, normal rate, regular rhythm Abdomen: normal bowel sounds, soft Extremities: normal range of motion Skin Exam: warm/dry Musculoskeletal: atrophy Jelani Sauer M.D. Dec 22, 2019 15:16
[2019-12-22 16:00] VITALS: BP 122/72
--- NOTE | 2019-12-22 16:00 | Surgery Progress Note ---
Surgery Progress Note Subjective Symptoms: improved, tolerating diet, passing flatus, BM Objective Last 24 Hour Vital Signs Date Time Temp Pulse Resp B/P (MAP) Pulse Ox O2 Delivery O2 Flow Rate FiO2 12/22/19 09:00 Nasal Cannula 2.0 12/22/19 08:00 99.0 91 20 130/76 (94) 96 12/22/19 05:02 101.7 12/22/19 04:00 101.8 96 18 145/79 (101) 95 12/22/19 00:00 98.2 92 16 122/73 (89) 96 12/21/19 23:34 85 18 100 Nasal Cannula 2.0 28 82 16 98 12/21/19 22:30 Nasal Cannula 2.0 12/21/19 21:00 Nasal Cannula 2.0 12/21/19 20:00 99.0 79 16 150/78 (102) 97 12/21/19 20:00 79 12/21/19 16:00 63 12/21/19 16:00 97.9 74 22 102/64 (77) 97 I&O Intake and Output 12/21/19 12/22/19 19:00 07:00 Intake Total 1917.2 ml Output Total 2600 ml 1500 ml Balance -682.8 ml -1500 ml IV Total 1357.2 ml Tube Feeding 560 ml Output Urine Total 2600 ml 1500 ml # Bowel Movements 1 Dressing: dry Wound: clean Cardiovascular: RSR Respiratory: clear Abdomen: soft, non-tender, present bowel sounds Extremities: no edema, no tenderness, no cyanosis Laboratory Tests Test 12/21/19 16:00 12/21/19 20:56 12/21/19 23:30 12/22/19 04:45 Vancomycin Level Trough 9.5 ug/mL (5.0-12.0) POC Whole Blood Glucose 119 MG/DL (74-106) H Urine Color Pale yellow Urine Appearance Clear Urine pH 8 (4.5-8.0) Urine Specific [place] 1.010 (1.005-1.035) Urine Protein 2+ (NEGATIVE) H Urine Glucose (UA) Negative (NEGATIVE) Urine Ketones Negative (NEGATIVE) Urine Blood 3+ (NEGATIVE) H Urine Nitrite Negative (NEGATIVE) Urine Bilirubin Negative (NEGATIVE) Urine Urobilinogen Normal MG/DL (0.0-1.0) Urine Leukocyte Esterase 1+ (NEGATIVE) H Urine RBC 10-15 /HPF (0 - 0) H Urine WBC 0-2 /HPF (0 - 0) Urine Squamous Epithelial Cells None /LPF (NONE/OCC) Urine Bacteria None /HPF (NONE) White Blood Count 7.2 K/UL (4.8-10.8) Red Blood Count 2.73 M/UL (4.70-6.10) L Hemoglobin 8.5 G/DL (14.2-18.0) L Hematocrit 25.0 % (42.0-52.0) L Mean Corpuscular Volume 92 FL (80-99) Mean Corpuscular Hemoglobin 31.1 PG (27.0-31.0) H Mean Corpuscular Hemoglobin Concent 34.0 G/DL (32.0-36.0) Red Cell Distribution Width 14.1 % (11.6-14.8) Platelet Count 145 K/UL (150-450) L Mean Platelet Volume 9.1 FL (6.5-10.1) Neutrophils (%) (Auto) 67.0 % (45.0-75.0) Lymphocytes (%) (Auto) 18.6 % (20.0-45.0) L Monocytes (%) (Auto) 9.0 % (1.0-10.0) Eosinophils (%) (Auto) 4.1 % (0.0-3.0) H Basophils (%) (Auto) 1.4 % (0.0-2.0) Erythrocyte Sedimentation Rate 111 MM/HR (0-20) H Sodium Level 139 MMOL/L (136-145) Potassium Level 3.2 MMOL/L (3.5-5.1) L Chloride Level 103 MMOL/L (98-107) Carbon Dioxide Level 28 MMOL/L (21-32) Anion Gap 8 mmol/L (5-15) Blood Urea Nitrogen 11 mg/dL (7-18) Creatinine 0.6 MG/DL (0.55-1.30) Estimat Glomerular Filtration Rate > 60 mL/min (>60) Glucose Level 105 MG/DL (74-106) Calcium Level 8.0 MG/DL (8.5-10.1) L Phosphorus Level 1.8 MG/DL (2.5-4.9) L Magnesium Level 1.9 MG/DL (1.8-2.4) C-Reactive Protein, Quantitative 14.7 mg/dL (0.00-0.90) H Test 12/22/19 15:50 Vancomycin Level Trough Pending Plan Problems: (1) COPD (chronic obstructive pulmonary disease) (2) Septic shock Assessment & Plan: Leukocytosis, anemia, lactic acidosis. COVID negative. Afebrile, hypotensive improved with fluid resuscitation off pressors now. UTI on antibiotics Still with significant wounds malnutrition requiring prolonged care. No acute surgical invention at this time Okay to resume tube feeds as tolerated IV fluids Urine output monitoring A.m. labs Imaging reviewed We will follow with recommendations thank you for your participation's care improved cont current care d/c planning Pt presented on admission with multiple Pressure Injuries, and contractures.L side trunk from L axilla to L hip noted to have a maroon discoloration. DTPI L Hip. Base of wound is maroon with surrounding non-blanchable erythema(L)5.5cm x (W)12.8cm. DTPI R lumbar(L04cm x (W)2.5cm. Base of wound is maroon and indurated. DTPI L trochanter(L)10cm x (W)10.5cm. Base of wound is purpuric with surrounding maroon borders. DTPI R trochanteric(L)9cm x (W)7.5cm. Base of wound is maroon and indurated. Surrounding darker skin tone without induration. DTPI Sacrum(L)9.5cm x (W)14cm. Base of wound is maroon with purpuric and indurated area at Sacrococcygeal area. Surrounding dry scaly skin with scattered dried lesions. Darker skin tone without induration or fluctuance R and L ischial tuberosities. Both heels are boggy and pale with dry peeling skin. Non-Blanching erythema without fluctuance/induration medial L foot ,in close proximity to malleolus(L)1.5cm x (W)1.5cm. Non-Blanching erythema medial R foot (L)2cm x (W)1.3cm. Non-Blanching erythema R Hallux. Base of wound is fluctuant(L)2cm x (W)2.5cm. Unstageable Pressure injury distal/lateral R foot(L)2.2cm x (W)3.8cm. Soft necrosis with surrounding non-blanchable erythema with fluctuance. Unstageable Pressure injury dorsal R4th metatarsal(L)1.4cm x (W)1.9cm. Base of wound is purpuric with marginal erythema along borders. Tx.Plan: Apply Moisture Barrier Paste to Sacrum. Cover with Optifoam drsg. Change every 3 days and prn. Apply Cavilon Skin Barrier to L HIP and L trochanteric. Cover each site with Optifoam drsg. Change every 7 days and prn. Apply Cavilon Skin Barrier to R trochanteric ,R lumbar. Cover each site with Optifoam drsg. Change every 7 days and prn. Apply Betadine to affected areas R and L foot. Cover each site with Optifoam drsgs. Change every 3 days and prn. Reposition at least every 2hours or as tolerated. Off-load heels with pillow. APM/RAVINDER Mattress overlay (3) Septic shock (4) Hematemesis (5) Bacteremia (6) Latent tuberculosis (7) Abnormal laboratory test result (8) Do not intubate, cardiopulmonary resuscitation (CPR)-only code status (9) wound (10) Hematuria (11) Fecal impaction (12) Rhabdomyolysis (13) GI bleed (14) Encounter for PEG (percutaneous endoscopic gastrostomy) (15) BRYANT (acute kidney injury) (16) Urinary retention (17) Bladder calculi (18) Proteinuria (19) Altered mental status (20) Electrolyte imbalance (21) Hypertension (22) Pneumonia (23) Severe sepsis (24) Frequent PVCs (25) Hypokalemia (26) UTI (urinary tract infection) (27) Elevated LFTs (28) Dehydration (29) Decubitus skin ulcer (30) UTI (urinary tract infection) (31) Suspected COVID-19 virus infection (32) BPH (benign prostatic hyperplasia) (33) Hyponatremia (34) Severe malnutrition (35) Failure to thrive syndrome, adult (36) Sepsis Reji Guy Dec 22, 2019 16:00
[2019-12-22] MEDS ORDERED: NS IVPB SCH (17:00)
[2019-12-22] MEDS ORDERED: GENTAMICIN IVPB SCH (17:00)
--- NOTE | 2019-12-22 19:30 | NUR ---
NURSE NOTES: The patient is alert and oriented x0, Is on oxygen via NC @ 2 liters with Spo2 95% well tolerated.The patient does not seem to be in pain but is severely contracted in both upper and lower extremities.The patient is on Gevity 1.2 brie @ 70 ml/hr well tolerated. HOB is upright and 10 ml of residual was noted on placement check.The patient also has a duggan attached under gravity with minimal drainage of pale yellowish urine noted.On skin assessments, Wound dressing noted over sacrum, bilateral hips, and bilateral feet.The Bed low and locked, siderails up x2, alarms on zone 1, will continue to monitor as indicated
--- NOTE | 2019-12-22 19:30 | NUR ---
NURSE HAND-OFF: Important Events on Shift: Left IJ D/C'd, PIV inserted; ESBL (+) in blood, Dr. Torres aware, now afebrile, last fever episode this AM temp 101.7F Patient Status: Stable Diet: Jevity 1.2 @ 70ml/hr Pending Orders: Labs in AM Pending Results/Labs: None Pending MD notification: None Latest Vital Signs: Temperature 98.2 , Pulse 92 , B/P 122 /72 , Respiratory Rate 20 , O2 SAT 96 , Nasal Cannula, O2 Flow Rate 2.0 . Vital Sign Comment: Latest Bartholomew Fall Score: 70 Fall Risk: High Risk Safety Measures: Call light Within Reach, Bed Alarm Zone 3, Side Rails Side Rails x2, Bed position Low and Locked. Fall Precautions: Yellow Socks Yellow Gown Patient Fall Education Report given to Jarad RN.
[2019-12-22 20:00] VITALS: BP 152/84
[2019-12-22] MEDS: Dyna-Hex 2% Top Sol 2oz TOPIC SCH (20:00)
[2019-12-22] MEDS: Atorvastatin 20mg tab ORAL SCH (20:44)
[2019-12-23] VITALS: BP 102/70
--- NOTE | 2019-12-23 02:55 | NUR ---
NURSE NOTES: The patient remained stable but was help in turning and re-position q2hrs as indicated.He doesn't appear to be exhibiting and sign or symptoms of pain at this time.Earlier the patient received his Vancomycin and Meropenem well tolerated. Will continue to monitor as indicated
[2019-12-23 04:00] VITALS: BP 124/74
[2019-12-23] MEDS: D5 1/2NS w/KCl 40meq 1000ml 1,000 ML IV SCH (05:39)
--- NOTE | 2019-12-23 06:00 | NUR ---
NURSE NOTES: Received a call from the laboratory that sputum culture was cancelled due to EXCESSIVE EPITH CELLS. Will re-collect as indicated.
[2019-12-23 06:03] LABS: BASOPHILS % (AUTO) 1.2 % (0.0-2.0); EOSINOPHILS % (AUTO) 6.3 % (0.0-3.0); HEMOGLOBIN 9.1 G/DL (14.2-18.0); LYMPHOCYTES % (AUTO) 28.8 % (20.0-45.0); MEAN CORPUSCULAR VOLUME 92 FL (80-99); MONOCYTES % (AUTO) 9.8 % (1.0-10.0); PLATELET COUNT 164 K/UL (150-450); RED BLOOD COUNT 2.94 M/UL (4.70-6.10); RED CELL DISTRIBUTION WIDTH 14.2 % (11.6-14.8); WHITE BLOOD COUNT 5.8 K/UL (4.8-10.8)
[2019-12-23] MEDS: NovoLOG Insulin Flexpen SUBQ SCH ×4 (06:30→21:00)
[2019-12-23 06:32] LABS: ALANINE AMINOTRANSFERASE 62 U/L (12-78); ALBUMIN 2.3 G/DL (3.4-5.0); ALBUMIN/GLOBULIN RATIO 0.6 (1.0-2.7); ALKALINE PHOSPHATASE 100 U/L (46-116); ANION GAP 7 mmol/L (5-15); ASPARTATE AMINO TRANSFERASE 75 U/L (15-37); BILIRUBIN,TOTAL 0.5 MG/DL (0.2-1.0); BLOOD UREA NITROGEN 11 mg/dL (7-18); CALCIUM 8.5 MG/DL (8.5-10.1); CARBON DIOXIDE 26 MMOL/L (21-32); CHLORIDE 104 MMOL/L (98-107); CREATININE 0.7 MG/DL (0.55-1.30); PHOSPHORUS 2.3 MG/DL (2.5-4.9); POTASSIUM 3.9 MMOL/L (3.5-5.1); SODIUM 137 MMOL/L (136-145)
--- NOTE | 2019-12-23 07:03 | NUR ---
HAND-OFF: Report given to Shira CURRY.Endorsed to followup with for Sputum culture with Granstain by Induction.The previous sample was contaminated with epithelia cells and was cancelled as indicated.
--- NOTE | 2019-12-23 07:06 | NUR ---
NURSE NOTES: Report received from Jarad RN. Patient seen on rounds, AxOx0, on O2 at 2lpm via NC, no signs of distress, GCS8 (E3, V1, M4) FLACC score 0, afebrile overnight. Noted DNR/DNI status. PIV on right hand noted infusing D5 1/2NS + 40 KCL @ 75ml/hr. Gtube patent and running Jevity 1.2 @ 70ml/hr, no residuals reported. HOB at 45 degrees. Manriquez cath secured and draining well. Wound dressing noted over sacrum, bilateral hips, and bilateral feet. Bed low and locked, siderails up x2, alarms on zone 1, will continue to monitor.
[2019-12-23 08:00] VITALS: BP 111/64
[2019-12-23] MEDS: Lactobacillus-GG tablet GT SCH ×2 (08:27→17:05)
[2019-12-23] MEDS: Doxazosin 1mg Tab GT SCH (08:27)
[2019-12-23] MEDS: Phospha 250 Neutral tab ORAL SCH ×3 (08:27→17:05)
[2019-12-23] MEDS: Pyridoxine 50mg tab GT SCH (08:27)
[2019-12-23] MEDS: Pantoprazole Inj IVP SCH ×2 (08:28→21:24)
[2019-12-23] MEDS: Isoniazid 300mg tab GT SCH (08:28)
[2019-12-23] MEDS: Heparin 5000 units/ml inj SUBQ SCH ×2 (08:29→21:39)
--- NOTE | 2019-12-23 08:41 | Hematology/Onc Progress Note ---
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 # BPH --> Chronic indwelling duggan. Continue proscar. # Dementia/FTT/Functional Quadriplegia, PEG tube dependent # Depression # Decubitus Ulcers/Diffuse Pressure wounds --> nutrition consulted for tube feeds --> Wound care consulted, recs appreciated # Pulm opacities --> per pulm # Nonverbal # Dementia # COPD # Dvt ppx hep Appreciate consultation and dw RN Subjective Constitutional: Denies: no symptoms, chills, fever, malaise, weakness, other HEENT: Denies: no symptoms, eye pain, blurred vision, tearing, double vision, ear pain, ear discharge, nose pain, nose congestion, throat pain, throat swelling, mouth pain, mouth swelling, other Cardiovascular: Denies: no symptoms, chest pain, edema, irregular heart rate, lightheadedness, palpitations, syncope, other Gastrointestinal/Abdominal: Denies: no symptoms, abdomen distended, abdominal pain, black stools, tarry stools, blood in stool, constipated, diarrhea, difficulty swallowing, nausea, poor appetite, poor fluid intake, rectal bleeding, vomiting, other Genitourinary: Denies: no symptoms, burning, discharge, frequency, flank pain, hematuria, incontinence, pain, urgency, other Neurologic/Psychiatric: Denies: no symptoms, anxiety, depressed, emotional problems, headache, numbness, paresthesia, pre-existing deficit, seizure, tingling, tremors, weakness, other Endocrine: Denies: no symptoms, excessive sweating, flushing, intolerance to cold, intolerance to heat, increased hunger, increased thirst, increased urine, unexplained weight gain, unexplained weight loss, other Allergies: Coded Allergies: No Known Allergies (Unverified , 08/20/18) Subjective 12/19 nv, is on abx, wbc improved,on ivfs continuously 12/20 on oxygen overnight with elev ddimer, i asked rn to order venous duplex, otherwise plt 110 12/21 on abx broad spectrum, on vanc/néstor labs reviewed, hgb stable, esbl in blood 12/22 remains on nc, dnr/dni is on fluids, labs reviewed Objective Objective Current Medications Medications (Trade) Dose Ordered Sig/Altagracia Route PRN Reason Start Time Stop Time Status Last Admin Dose Admin Acetaminophen (Tylenol) 650 mg Q4H PRN ORAL Fever 12/18/19 05:15 01/17/20 05:14 12/22/19 04:32 Aspirin (ASA) 325 mg DAILY ORAL 12/19/19 11:00 02/02/20 10:59 12/23/19 08:27 Atorvastatin Calcium (Lipitor) 40 mg BEDTIME ORAL 12/19/19 21:00 03/18/20 20:59 12/22/19 20:44 Chlorhexidine Gluconate (Corazon-Hex 2%) 1 applic DAILY@2000 TOPIC 12/20/19 20:00 03/19/20 19:59 12/21/19 21:02 Dextrose (Dextrose 50%) 25 ml Q30M PRN IV Hypoglycemia 12/18/19 05:15 03/17/20 05:14 Dextrose (Dextrose 50%) 50 ml Q30M PRN IV Hypoglycemia 12/18/19 05:15 03/17/20 05:14 Dextrose/ Electrolytes 1,000 ml @ 75 mls/hr [id number] IV 12/21/19 14:00 01/20/20 13:59 12/23/19 05:39 Doxazosin Mesylate (Cardura) 1 mg DAILY GT 12/18/19 09:00 01/17/20 08:59 12/23/19 08:27 Ergocalciferol (Drisdol) 50,000 intlu ONCE A WEEK ORAL 12/19/19 09:00 01/18/20 08:59 12/19/19 10:33 Finasteride (Proscar) 5 mg DAILY ORAL 12/18/19 09:00 03/17/20 08:59 12/23/19 08:27 Gentamicin Protocol (Gentamicin pharmacy to dose) 1 ea DAILY PRN MISC Per rx protocol 12/22/19 15:00 01/21/20 14:59 Gentamicin Sulfate 280 mg/ Sodium Chloride 117 ml @ 117 mls/hr Q24H IVPB 12/23/19 17:00 12/30/19 16:59 Heparin Sodium (Porcine) (Heparin 5000 units/ml) 5,000 units EVERY 12 HOURS SUBQ 12/18/19 09:00 02/01/20 08:59 12/23/19 08:29 Insulin Aspart (NovoLOG) BEFORE MEALS AND HS SUBQ 12/18/19 06:30 03/17/20 06:29 12/22/19 11:58 Isoniazid (Inh) 300 mg DAILY GT 12/18/19 09:00 01/17/20 08:59 12/23/19 08:28 Lactobacillus Acidophilus (Culturelle) 1 tab TWICE A DAY GT 12/18/19 09:00 03/17/20 08:59 12/23/19 08:27 Meropenem 1 gm/ Sodium Chloride 100 ml @ 200 mls/hr Q8HR IVPB 12/21/19 22:00 12/26/19 21:59 12/23/19 05:39 Ondansetron HCl (Zofran) 4 mg Q6H PRN IVP Nausea & Vomiting 12/18/19 05:15 01/17/20 05:14 Pantoprazole (Protonix) 40 mg EVERY 12 HOURS IVP 12/18/19 21:00 01/17/20 20:59 12/23/19 08:28 Phosphorus (Phospha 250 Neutral) 250 mg THREE TIMES A DAY ORAL 12/21/19 09:00 12/24/19 09:00 12/23/19 08:27 Pyridoxine HCl (Vitamin B6) 50 mg DAILY GT 12/18/19 09:00 01/17/20 08:59 12/23/19 08:27 Vancomycin HCl (Vanco pharmacy to dose) 1 ea DAILY PRN MISC PER RX PROTOCOL 12/18/19 06:45 01/17/20 06:44 Vancomycin HCl 1 gm/Sodium Chloride 250 ml @ 167.007 mls/hr Q12HR@0900,2100 IVPB 12/22/19 21:00 12/27/19 20:59 12/23/19 08:27 Last 24 Hour Vital Signs Date Time Temp Pulse Resp B/P (MAP) Pulse Ox O2 Delivery O2 Flow Rate FiO2 12/23/19 04:00 98.1 82 20 124/74 (91) 98 12/23/19 00:00 98.2 95 22 102/70 (81) 96 12/22/19 21:00 Nasal Cannula 2.0 12/22/19 20:00 99.1 104 20 152/84 (106) 96 12/22/19 19:43 96 Nasal Cannula 2.0 28 12/22/19 19:43 88 20 96 Nasal Cannula 2.0 28 12/22/19 16:00 98.2 92 20 122/72 (89) 96 12/22/19 12:00 98.2 92 20 127/77 (94) 98 12/22/19 09:00 Nasal Cannula 2.0 12/22/19 08:00 99.0 91 20 130/76 (94) 96 12/22/19 05:02 101.7 12/22/19 04:00 101.8 96 18 145/79 (101) 95 12/22/19 00:00 98.2 92 16 122/73 (89) 96 12/21/19 23:34 85 18 100 Nasal Cannula 2.0 28 82 16 98 12/21/19 22:30 Nasal Cannula 2.0 12/21/19 21:00 Nasal Cannula 2.0 12/21/19 20:00 99.0 79 16 150/78 (102) 97 12/21/19 20:00 79 12/21/19 16:00 63 12/21/19 16:00 97.9 74 22 102/64 (77) 97 12/21/19 13:39 96.8 12/21/19 12:00 62 12/21/19 11:08 100.8 78 20 97/45 (62) 98 12/21/19 09:00 Nasal Cannula 2.0 Intake and Output 12/22/19 12/23/19 19:00 07:00 Intake Total 595 ml 1920 ml Output Total 2450 ml 1700 ml Balance -1855 ml 220 ml Free Water 30 ml 30 ml IV Total 75 ml 1050 ml Tube Feeding 490 ml 840 ml Output Urine Total 2450 ml 1700 ml # Bowel Movements 1 Labs Test 12/20/19 08:45 12/21/19 03:00 12/21/19 11:28 12/21/19 16:00 White Blood Count 14.9 K/UL (4.8-10.8) 9.5 K/UL (4.8-10.8) Red Blood Count 2.43 M/UL (4.70-6.10) 2.47 M/UL (4.70-6.10) Hemoglobin 7.6 G/DL (14.2-18.0) 7.8 G/DL (14.2-18.0) Hematocrit 22.6 % (42.0-52.0) 22.6 % (42.0-52.0) Mean Corpuscular Volume 93 FL (80-99) 92 FL (80-99) Mean Corpuscular Hemoglobin 31.2 PG (27.0-31.0) 31.4 PG (27.0-31.0) Mean Corpuscular Hemoglobin Concent 33.5 G/DL (32.0-36.0) 34.3 G/DL (32.0-36.0) Red Cell Distribution Width 14.4 % (11.6-14.8) 13.7 % (11.6-14.8) Platelet Count 114 K/UL (150-450) 114 K/UL (150-450) Mean Platelet Volume 8.5 FL (6.5-10.1) 8.5 FL (6.5-10.1) Neutrophils (%) (Auto) % (45.0-75.0) % (45.0-75.0) Lymphocytes (%) (Auto) % (20.0-45.0) % (20.0-45.0) Monocytes (%) (Auto) % (1.0-10.0) % (1.0-10.0) Eosinophils (%) (Auto) % (0.0-3.0) % (0.0-3.0) Basophils (%) (Auto) % (0.0-2.0) % (0.0-2.0) Differential Total Cells Counted 100 Neutrophils % (Manual) 92 % (45-75) Lymphocytes % (Manual) 6 % (20-45) Monocytes % (Manual) 1 % (1-10) Eosinophils % (Manual) 0 % (0-3) Basophils % (Manual) 1 % (0-2) Band Neutrophils 0 % (0-8) Platelet Estimate Decreased Platelet Morphology Normal Hypochromasia 3+ Anisocytosis 1+ Spherocytes 2+ Sodium Level 144 MMOL/L (136-145) 139 MMOL/L (136-145) Potassium Level 3.4 MMOL/L (3.5-5.1) 2.9 MMOL/L (3.5-5.1) Chloride Level 110 MMOL/L (98-107) 104 MMOL/L (98-107) Carbon Dioxide Level 22 MMOL/L (21-32) 26 MMOL/L (21-32) Anion Gap 12 mmol/L (5-15) 9 mmol/L (5-15) Blood Urea Nitrogen 15 mg/dL (7-18) 13 mg/dL (7-18) Creatinine 0.7 MG/DL (0.55-1.30) 0.6 MG/DL (0.55-1.30) Estimat Glomerular Filtration Rate > 60 mL/min (>60) > 60 mL/min (>60) Glucose Level 112 MG/DL (74-106) 129 MG/DL (74-106) Calcium Level 8.2 MG/DL (8.5-10.1) 7.8 MG/DL (8.5-10.1) Phosphorus Level 1.5 MG/DL (2.5-4.9) 1.2 MG/DL (2.5-4.9) Magnesium Level 1.8 MG/DL (1.8-2.4) 1.6 MG/DL (1.8-2.4) Vancomycin Level Trough 6.4 ug/mL (5.0-12.0) 9.5 ug/mL (5.0-12.0) Random Amikacin Level 6.2 MG/L Test 12/21/19 20:56 12/21/19 23:30 12/22/19 04:45 12/22/19 15:50 POC Whole Blood Glucose 119 MG/DL (74-106) Urine Color Pale yellow Urine Appearance Clear Urine pH 8 (4.5-8.0) Urine Specific [place] 1.010 (1.005-1.035) Urine Protein 2+ (NEGATIVE) Urine Glucose (UA) Negative (NEGATIVE) Urine Ketones Negative (NEGATIVE) Urine Blood 3+ (NEGATIVE) Urine Nitrite Negative (NEGATIVE) Urine Bilirubin Negative (NEGATIVE) Urine Urobilinogen Normal MG/DL (0.0-1.0) Urine Leukocyte Esterase 1+ (NEGATIVE) Urine RBC 10-15 /HPF (0 - 0) Urine WBC 0-2 /HPF (0 - 0) Urine Squamous Epithelial Cells None /LPF (NONE/OCC) Urine Bacteria None /HPF (NONE) White Blood Count 7.2 K/UL (4.8-10.8) Red Blood Count 2.73 M/UL (4.70-6.10) Hemoglobin 8.5 G/DL (14.2-18.0) Hematocrit 25.0 % (42.0-52.0) Mean Corpuscular Volume 92 FL (80-99) Mean Corpuscular Hemoglobin 31.1 PG (27.0-31.0) Mean Corpuscular Hemoglobin Concent 34.0 G/DL (32.0-36.0) Red Cell Distribution Width 14.1 % (11.6-14.8) Platelet Count 145 K/UL (150-450) Mean Platelet Volume 9.1 FL (6.5-10.1) Neutrophils (%) (Auto) 67.0 % (45.0-75.0) Lymphocytes (%) (Auto) 18.6 % (20.0-45.0) Monocytes (%) (Auto) 9.0 % (1.0-10.0) Eosinophils (%) (Auto) 4.1 % (0.0-3.0) Basophils (%) (Auto) 1.4 % (0.0-2.0) Erythrocyte Sedimentation Rate 111 MM/HR (0-20) Sodium Level 139 MMOL/L (136-145) Potassium Level 3.2 MMOL/L (3.5-5.1) Chloride Level 103 MMOL/L (98-107) Carbon Dioxide Level 28 MMOL/L (21-32) Anion Gap 8 mmol/L (5-15) Blood Urea Nitrogen 11 mg/dL (7-18) Creatinine 0.6 MG/DL (0.55-1.30) Estimat Glomerular Filtration Rate > 60 mL/min (>60) Glucose Level 105 MG/DL (74-106) Calcium Level 8.0 MG/DL (8.5-10.1) Phosphorus Level 1.8 MG/DL (2.5-4.9) Magnesium Level 1.9 MG/DL (1.8-2.4) C-Reactive Protein, Quantitative 14.7 mg/dL (0.00-0.90) Vancomycin Level Trough 22.4 ug/mL (5.0-12.0) Test 12/22/19 16:44 12/22/19 21:02 12/23/19 05:42 POC Whole Blood Glucose 125 MG/DL (74-106) White Blood Count 5.8 K/UL (4.8-10.8) Red Blood Count 2.94 M/UL (4.70-6.10) Hemoglobin 9.1 G/DL (14.2-18.0) Hematocrit 27.0 % (42.0-52.0) Mean Corpuscular Volume 92 FL (80-99) Mean Corpuscular Hemoglobin 31.0 PG (27.0-31.0) Mean Corpuscular Hemoglobin Concent 33.7 G/DL (32.0-36.0) Red Cell Distribution Width 14.2 % (11.6-14.8) Platelet Count 164 K/UL (150-450) Mean Platelet Volume 9.0 FL (6.5-10.1) Neutrophils (%) (Auto) 54.0 % (45.0-75.0) Lymphocytes (%) (Auto) 28.8 % (20.0-45.0) Monocytes (%) (Auto) 9.8 % (1.0-10.0) Eosinophils (%) (Auto) 6.3 % (0.0-3.0) Basophils (%) (Auto) 1.2 % (0.0-2.0) Sodium Level 137 MMOL/L (136-145) Potassium Level 3.9 MMOL/L (3.5-5.1) Chloride Level 104 MMOL/L (98-107) Carbon Dioxide Level 26 MMOL/L (21-32) Anion Gap 7 mmol/L (5-15) Blood Urea Nitrogen 11 mg/dL (7-18) Creatinine 0.7 MG/DL (0.55-1.30) Estimat Glomerular Filtration Rate > 60 mL/min (>60) Glucose Level 131 MG/DL (74-106) Calcium Level 8.5 MG/DL (8.5-10.1) Phosphorus Level 2.3 MG/DL (2.5-4.9) Magnesium Level 1.9 MG/DL (1.8-2.4) Total Bilirubin 0.5 MG/DL (0.2-1.0) Aspartate Amino Transf (AST/SGOT) 75 U/L (15-37) Alanine Aminotransferase (ALT/SGPT) 62 U/L (12-78) Alkaline Phosphatase 100 U/L (46-116) Total Protein 6.4 G/DL (6.4-8.2) Albumin 2.3 G/DL (3.4-5.0) Globulin 4.1 g/dL Albumin/Globulin Ratio 0.6 (1.0-2.7) Random Gentamicin Level 2.4 ug/mL Height (Feet): 5 Height (Inches): 4.00 Weight (Pounds): 140 Objective General Appearance: nad, alert, confused Lines, tubes and drains: peripheral, central line HEENT: normocephalic Neck: non-tender Respiratory/Chest: lungs clear Cardiovascular/Chest: normal peripheral pulses Abdomen: normal bowel sounds, soft ++peg Extremities: normal range of motion Skin Exam: warm/dry Musculoskeletal: atrophy : ++Jose Guadalupe Putnam MD Dec 23, 2019 08:41
--- NOTE | 2019-12-23 09:12 | NUR ---
RADIOLOGY DEPT., CHEST X-RAY DONE.-P.DYE
[2019-12-23] MEDS ORDERED: Phospha 250 Neutral tab GT SCH (10:30)
--- NOTE | 2019-12-23 10:32 | General Progress Note ---
Subjective ROS Limited/Unobtainable: Yes - non verbal, does not follow commands Allergies: Coded Allergies: No Known Allergies (Unverified , 08/20/18) Subjective No acute events overnight. Resting comfortably. Central line removed. No fevers in last 24 hours. D/c fluids today. Objective Last 24 Hour Vital Signs Date Time Temp Pulse Resp B/P (MAP) Pulse Ox O2 Delivery O2 Flow Rate FiO2 12/23/19 09:00 Nasal Cannula 2.0 12/23/19 08:00 98.6 87 20 111/64 (80) 94 12/23/19 04:00 98.1 82 20 124/74 (91) 98 12/23/19 00:00 98.2 95 22 102/70 (81) 96 12/22/19 21:00 Nasal Cannula 2.0 12/22/19 20:00 99.1 104 20 152/84 (106) 96 12/22/19 19:43 96 Nasal Cannula 2.0 28 12/22/19 19:43 88 20 96 Nasal Cannula 2.0 28 12/22/19 16:00 98.2 92 20 122/72 (89) 96 12/22/19 12:00 98.2 92 20 127/77 (94) 98 Intake and Output 12/22/19 12/23/19 19:00 07:00 Intake Total 595 ml 1920 ml Output Total 2450 ml 1700 ml Balance -1855 ml 220 ml Free Water 30 ml 30 ml IV Total 75 ml 1050 ml Tube Feeding 490 ml 840 ml Output Urine Total 2450 ml 1700 ml # Bowel Movements 1 Laboratory Tests 12/22/19 15:50: Vancomycin Level Trough 22.4H 12/22/19 16:44: POC Whole Blood Glucose [Pending] 12/22/19 21:02: POC Whole Blood Glucose 125H 12/23/19 05:42: White Blood Count 5.8, Red Blood Count 2.94L, Hemoglobin 9.1L, Hematocrit 27.0L, Mean Corpuscular Volume 92, Mean Corpuscular Hemoglobin 31.0, Mean Corpuscular Hemoglobin Concent 33.7, Red Cell Distribution Width 14.2, Platelet Count 164, Mean Platelet Volume 9.0, Neutrophils (%) (Auto) 54.0, Lymphocytes (%) (Auto) 28.8, Monocytes (%) (Auto) 9.8, Eosinophils (%) (Auto) 6.3H, Basophils (%) (Auto) 1.2, Sodium Level 137, Potassium Level 3.9, Chloride Level 104, Carbon Dioxide Level 26, Anion Gap 7, Blood Urea Nitrogen 11, Creatinine 0.7, Estimat Glomerular Filtration Rate > 60, Glucose Level 131H, Calcium Level 8.5, Phosphorus Level 2.3L, Magnesium Level 1.9, Total Bilirubin 0.5, Aspartate Amino Transf (AST/SGOT) 75H, Alanine Aminotransferase (ALT/SGPT) 62, Alkaline Phosphatase 100, Total Protein 6.4, Albumin 2.3L, Globulin 4.1, Albumin/Globulin Ratio 0.6L, Random Gentamicin Level 2.4 Height (Feet): 5 Height (Inches): 4.00 Weight (Pounds): 140 General Appearance: alert, other - non verbal, unable to follow commands EENT: PERRL/EOMI Neck: non-tender, normal inspection Cardiovascular: normal rate, regular rhythm, no JVD Respiratory/Chest: no accessory muscle use, crackles/rales, rhonchi - bila terally Abdomen: non tender, soft, other - Gtube Genitourinary/Rectal: other - duggan Extremities: other - bilateral LE contractures Edema: no edema noted Arm (L), no edema noted Arm (R), no edema noted Leg (L), no edema noted Leg (R), no edema noted Pedal (L), no edema noted Pedal (R), no edema noted Generalized Neurologic: sponge hooker II-XII grossly normal, disoriented, other - non verbal, does not follow commands Assessment/Plan Assessment/Plan: 73-year-old male with PMH of advanced dementia (bedbound, nonverbal, PEG dependent at baseline), dysphasia s/p PEG tube, COPD, HTN, depression, PVCs, GERD, functional quadriplegia, adult failure to thrive, sacral ulcer who presents from rehab facility for septic shock. #Septic Shock 2/2 Complicated UTI # ESBL Ecoli and ESBL Proteus Bacteremia # Fevers # Hospital Acquired RLL PNA # Multiple decubitus Ulcers -Off Levophed now and BP remains over MAP 65 -continue vanc, merrem and added gentaminc yesterday per ID - no fevers last 24 hours, wbc stable - inflammatory markers elevated - repeat BC negative first 24 hours - repeat UA negative - consider C/A/P CT if fevers persist -Duggan care -Evaluated by General surgery and does not appear to be source of sepsis -Wound care -Consult to ID - appreciate recs - discussed case with marcial GREENBERG with d/c so long as patient stable, fevers resolved and repeat BC negative #Acute hypoxic respiratory failure - improving - titrated off simple mask to 2L NC - keep O2 > 92%, monitor for increased O2 support - duonebs prn - CXR reviewed with new RLL PNA - pulm following - # Thrombocytponenia - normalized - likley from infection - unlikely HIT given timing of downtrending #Latent TB -4 AFBs collected - all 4 of them found to be negative (11/13, 11/14, 11/15, and 11/17). -T spot was positive which is in accordance with latent TB. -ID was consulted for further mangagement. -Patient was started on INH and Pyridoxine to be continued for total of 9 months. #Failure to thrive #Severe Malnourishment #Dysphagia eith G tube -Continue Tube feeds -Nutrition consult #Elevated troponin - ASA 325 given - High dose statin - EKG - Cardiology following # Anemia of chronic Dx - Trend Hg - Transfuse for Hg less than 8 if ACS - Consult to hematology CODE: DNR/DNI DVT: Heparin 5000 Subq BID Abx: gentamicin, vanc, merrem Fluids: d/c Diet: TF Gi: PPI 40 mg BID Dispo: DC to SNF once fevers resolves, following repeat cultures I spent 31 minutes on this encounter with 25 min coordinating care and counseling. I discussed with all consultants and RNs. Time of note may not reflect time patient was seen. Gorge Stone D.O Dec 23, 2019 10:32
--- NOTE | 2019-12-23 10:45 | Surgery Progress Note ---
Surgery Progress Note Subjective Additional Comments afebrile, HD stable improving tolerating diet Objective Last 24 Hour Vital Signs Date Time Temp Pulse Resp B/P (MAP) Pulse Ox O2 Delivery O2 Flow Rate FiO2 12/23/19 09:00 Nasal Cannula 2.0 12/23/19 08:00 98.6 87 20 111/64 (80) 94 12/23/19 04:00 98.1 82 20 124/74 (91) 98 12/23/19 00:00 98.2 95 22 102/70 (81) 96 12/22/19 21:00 Nasal Cannula 2.0 12/22/19 20:00 99.1 104 20 152/84 (106) 96 12/22/19 19:43 96 Nasal Cannula 2.0 28 12/22/19 19:43 88 20 96 Nasal Cannula 2.0 28 12/22/19 16:00 98.2 92 20 122/72 (89) 96 12/22/19 12:00 98.2 92 20 127/77 (94) 98 I&O Intake and Output 12/22/19 12/23/19 19:00 07:00 Intake Total 595 ml 1920 ml Output Total 2450 ml 1700 ml Balance -1855 ml 220 ml Free Water 30 ml 30 ml IV Total 75 ml 1050 ml Tube Feeding 490 ml 840 ml Output Urine Total 2450 ml 1700 ml # Bowel Movements 1 Dressing: saturated Cardiovascular: RSR Respiratory: decreased breath sounds Abdomen: soft, non-tender, present bowel sounds Extremities: edema, no tenderness, no cyanosis Laboratory Tests Test 12/22/19 15:50 12/22/19 16:44 12/22/19 21:02 12/23/19 05:42 Vancomycin Level Trough 22.4 ug/mL (5.0-12.0) H POC Whole Blood Glucose Pending 125 MG/DL (74-106) H White Blood Count 5.8 K/UL (4.8-10.8) Red Blood Count 2.94 M/UL (4.70-6.10) L Hemoglobin 9.1 G/DL (14.2-18.0) L Hematocrit 27.0 % (42.0-52.0) L Mean Corpuscular Volume 92 FL (80-99) Mean Corpuscular Hemoglobin 31.0 PG (27.0-31.0) Mean Corpuscular Hemoglobin Concent 33.7 G/DL (32.0-36.0) Red Cell Distribution Width 14.2 % (11.6-14.8) Platelet Count 164 K/UL (150-450) Mean Platelet Volume 9.0 FL (6.5-10.1) Neutrophils (%) (Auto) 54.0 % (45.0-75.0) Lymphocytes (%) (Auto) 28.8 % (20.0-45.0) Monocytes (%) (Auto) 9.8 % (1.0-10.0) Eosinophils (%) (Auto) 6.3 % (0.0-3.0) H Basophils (%) (Auto) 1.2 % (0.0-2.0) Sodium Level 137 MMOL/L (136-145) Potassium Level 3.9 MMOL/L (3.5-5.1) Chloride Level 104 MMOL/L (98-107) Carbon Dioxide Level 26 MMOL/L (21-32) Anion Gap 7 mmol/L (5-15) Blood Urea Nitrogen 11 mg/dL (7-18) Creatinine 0.7 MG/DL (0.55-1.30) Estimat Glomerular Filtration Rate > 60 mL/min (>60) Glucose Level 131 MG/DL (74-106) H Calcium Level 8.5 MG/DL (8.5-10.1) Phosphorus Level 2.3 MG/DL (2.5-4.9) L Magnesium Level 1.9 MG/DL (1.8-2.4) Total Bilirubin 0.5 MG/DL (0.2-1.0) Aspartate Amino Transf (AST/SGOT) 75 U/L (15-37) H Alanine Aminotransferase (ALT/SGPT) 62 U/L (12-78) Alkaline Phosphatase 100 U/L (46-116) Total Protein 6.4 G/DL (6.4-8.2) Albumin 2.3 G/DL (3.4-5.0) L Globulin 4.1 g/dL Albumin/Globulin Ratio 0.6 (1.0-2.7) L Random Gentamicin Level 2.4 ug/mL Plan Problems: (1) COPD (chronic obstructive pulmonary disease) (2) Septic shock Assessment & Plan: Leukocytosis, anemia, lactic acidosis. COVID negative. Afebrile, hypotensive improved with fluid resuscitation off pressors now. UTI on antibiotics Still with significant wounds malnutrition requiring prolonged care. No acute surgical invention at this time Okay to resume tube feeds as tolerated IV fluids Urine output monitoring A.m. labs Imaging reviewed We will follow with recommendations thank you for your participation's care improved cont current care d/c planning Pt presented on admission with multiple Pressure Injuries, and contractures.L side trunk from L axilla to L hip noted to have a maroon discoloration. DTPI L Hip. Base of wound is maroon with surrounding non-blanchable erythema(L)5.5cm x (W)12.8cm. DTPI R lumbar(L04cm x (W)2.5cm. Base of wound is maroon and indurated. DTPI L trochanter(L)10cm x (W)10.5cm. Base of wound is purpuric with surrounding maroon borders. DTPI R trochanteric(L)9cm x (W)7.5cm. Base of wound is maroon and indurated. Surrounding darker skin tone without induration. DTPI Sacrum(L)9.5cm x (W)14cm. Base of wound is maroon with purpuric and indurated area at Sacrococcygeal area. Surrounding dry scaly skin with scattered dried lesions. Darker skin tone without induration or fluctuance R and L ischial tuberosities. Both heels are boggy and pale with dry peeling skin. Non-Blanching erythema without fluctuance/induration medial L foot ,in close proximity to malleolus(L)1.5cm x (W)1.5cm. Non-Blanching erythema medial R foot (L)2cm x (W)1.3cm. Non-Blanching erythema R Hallux. Base of wound is fluctuant(L)2cm x (W)2.5cm. Unstageable Pressure injury distal/lateral R foot(L)2.2cm x (W)3.8cm. Soft necrosis with surrounding non-blanchable erythema with fluctuance. Unstageable Pressure injury dorsal R4th metatarsal(L)1.4cm x (W)1.9cm. Base of wound is purpuric with marginal erythema along borders. Tx.Plan: Apply Moisture Barrier Paste to Sacrum. Cover with Optifoam drsg. Change every 3 days and prn. Apply Cavilon Skin Barrier to L HIP and L trochanteric. Cover each site with Optifoam drsg. Change every 7 days and prn. Apply Cavilon Skin Barrier to R trochanteric ,R lumbar. Cover each site with Optifoam drsg. Change every 7 days and prn. Apply Betadine to affected areas R and L foot. Cover each site with Optifoam drsgs. Change every 3 days and prn. Reposition at least every 2hours or as tolerated. Off-load heels with pillow. APM/RAVINDER Mattress overlay (3) Septic shock (4) Hematemesis (5) Bacteremia (6) Latent tuberculosis (7) Abnormal laboratory test result (8) Do not intubate, cardiopulmonary resuscitation (CPR)-only code status (9) wound (10) Hematuria (11) Fecal impaction (12) Rhabdomyolysis (13) GI bleed (14) Encounter for PEG (percutaneous endoscopic gastrostomy) (15) BRYANT (acute kidney injury) (16) Urinary retention (17) Bladder calculi (18) Proteinuria (19) Altered mental status (20) Electrolyte imbalance (21) Hypertension (22) Pneumonia (23) Severe sepsis (24) Frequent PVCs (25) Hypokalemia (26) UTI (urinary tract infection) (27) Elevated LFTs (28) Dehydration (29) Decubitus skin ulcer (30) UTI (urinary tract infection) (31) Suspected COVID-19 virus infection (32) BPH (benign prostatic hyperplasia) (33) Hyponatremia (34) Severe malnutrition (35) Failure to thrive syndrome, adult (36) Sepsis Reji uGy Dec 23, 2019 10:45
--- NOTE | 2019-12-23 11:03 | Pulmonology Progress Note ---
Subjective ROS Limited/Unobtainable: Yes - non verbal, does not follow commands Interval Events: None new reported Constitutional: Denies: fever HEENT: Repors: no symptoms Respiratory: Reports: no symptoms Cardiovascular: Reports: no symptoms Gastrointestinal/Abdominal: Denies: nausea, vomiting, diarrhea Psychiatric: Denies: depression Skin: Denies: rash Musculoskeletal: Denies: pain Allergies: Coded Allergies: No Known Allergies (Unverified , 08/20/18) All Systems: reviewed and negative except above Objective Last 24 Hour Vital Signs Date Time Temp Pulse Resp B/P (MAP) Pulse Ox O2 Delivery O2 Flow Rate FiO2 12/23/19 09:00 Nasal Cannula 2.0 12/23/19 08:00 98.6 87 20 111/64 (80) 94 12/23/19 04:00 98.1 82 20 124/74 (91) 98 12/23/19 00:00 98.2 95 22 102/70 (81) 96 12/22/19 21:00 Nasal Cannula 2.0 12/22/19 20:00 99.1 104 20 152/84 (106) 96 12/22/19 19:43 96 Nasal Cannula 2.0 28 12/22/19 19:43 88 20 96 Nasal Cannula 2.0 28 12/22/19 16:00 98.2 92 20 122/72 (89) 96 12/22/19 12:00 98.2 92 20 127/77 (94) 98 Intake and Output 12/22/19 12/23/19 19:00 07:00 Intake Total 595 ml 1920 ml Output Total 2450 ml 1700 ml Balance -1855 ml 220 ml Free Water 30 ml 30 ml IV Total 75 ml 1050 ml Tube Feeding 490 ml 840 ml Output Urine Total 2450 ml 1700 ml # Bowel Movements 1 General Appearance: no acute distress HEENT: normocephalic Respiratory: chest wall non-tender, lungs clear Cardiovascular: normal peripheral pulses Abdomen: normal bowel sounds Microbiology Date/Time Source Procedure Growth Status 12/21/19 16:15 Blood Blood Culture - Preliminary NO GROWTH AFTER 24 HOURS Resulted 12/21/19 16:00 Blood Blood Culture - Preliminary NO GROWTH AFTER 24 HOURS Resulted Laboratory Tests 12/22/19 15:50: Vancomycin Level Trough 22.4H 12/22/19 16:44: POC Whole Blood Glucose [Pending] 12/22/19 21:02: POC Whole Blood Glucose 125H 12/23/19 05:42: White Blood Count 5.8, Red Blood Count 2.94L, Hemoglobin 9.1L, Hematocrit 27.0L, Mean Corpuscular Volume 92, Mean Corpuscular Hemoglobin 31.0, Mean Corpuscular Hemoglobin Concent 33.7, Red Cell Distribution Width 14.2, Platelet Count 164, Mean Platelet Volume 9.0, Neutrophils (%) (Auto) 54.0, Lymphocytes (%) (Auto) 28.8, Monocytes (%) (Auto) 9.8, Eosinophils (%) (Auto) 6.3H, Basophils (%) (Auto) 1.2, Sodium Level 137, Potassium Level 3.9, Chloride Level 104, Carbon Dioxide Level 26, Anion Gap 7, Blood Urea Nitrogen 11, Creatinine 0.7, Estimat Glomerular Filtration Rate > 60, Glucose Level 131H, Calcium Level 8.5, P hosphorus Level 2.3L, Magnesium Level 1.9, Total Bilirubin 0.5, Aspartate Amino Transf (AST/SGOT) 75H, Alanine Aminotransferase (ALT/SGPT) 62, Alkaline Phosphatase 100, Total Protein 6.4, Albumin 2.3L, Globulin 4.1, Albumin/Globulin Ratio 0.6L, Random Gentamicin Level 2.4 Current Medications Medications (Trade) Dose Ordered Sig/Altagracia Route PRN Reason Start Time Stop Time Status Last Admin Dose Admin Acetaminophen (Tylenol) 650 mg Q4H PRN ORAL Fever 12/18/19 05:15 01/17/20 05:14 12/22/19 04:32 Aspirin (ASA) 325 mg DAILY ORAL 12/19/19 11:00 02/02/20 10:59 12/23/19 08:27 Atorvastatin Calcium (Lipitor) 40 mg BEDTIME ORAL 12/19/19 21:00 03/18/20 20:59 12/22/19 20:44 Chlorhexidine Gluconate (Corazon-Hex 2%) 1 applic DAILY@1999 TOPIC 12/20/19 20:00 03/19/20 19:59 12/21/19 21:02 Dextrose (Dextrose 50%) 25 ml Q30M PRN IV Hypoglycemia 12/18/19 05:15 03/17/20 05:14 Dextrose (Dextrose 50%) 50 ml Q30M PRN IV Hypoglycemia 12/18/19 05:15 03/17/20 05:14 Doxazosin Mesylate (Cardura) 1 mg DAILY GT 12/18/19 09:00 01/17/20 08:59 12/23/19 08:27 Ergocalciferol (Drisdol) 50,000 intlu ONCE A WEEK ORAL 12/19/19 09:00 01/18/20 08:59 12/19/19 10:33 Finasteride (Proscar) 5 mg DAILY ORAL 12/18/19 09:00 03/17/20 08:59 12/23/19 08:27 Gentamicin Protocol (Gentamicin pharmacy to dose) 1 ea DAILY PRN MISC Per rx protocol 12/22/19 15:00 01/21/20 14:59 Gentamicin Sulfate 280 mg/ Sodium Chloride 117 ml @ 117 mls/hr Q24H IVPB 12/23/19 17:00 12/30/19 16:59 Heparin Sodium (Porcine) (Heparin 5000 units/ml) 5,000 units EVERY 12 HOURS SUBQ 12/18/19 09:00 02/01/20 08:59 12/23/19 08:29 Insulin Aspart (NovoLOG) BEFORE MEALS AND HS SUBQ 12/18/19 06:30 03/17/20 06:29 12/22/19 11:58 Isoniazid (Inh) 300 mg DAILY GT 12/18/19 09:00 01/17/20 08:59 12/23/19 08:28 Lactobacillus Acidophilus (Culturelle) 1 tab TWICE A DAY GT 12/18/19 09:00 03/17/20 08:59 12/23/19 08:27 Meropenem 1 gm/ Sodium Chloride 100 ml @ 200 mls/hr Q8HR IVPB 12/21/19 22:00 12/26/19 21:59 12/23/19 05:39 Ondansetron HCl (Zofran) 4 mg Q6H PRN IVP Nausea & Vomiting 12/18/19 05:15 01/17/20 05:14 Pantoprazole (Protonix) 40 mg EVERY 12 HOURS IVP 12/18/19 21:00 01/17/20 20:59 12/23/19 08:28 Phosphorus (Phospha 250 Neutral) 250 mg THREE TIMES A DAY ORAL 12/21/19 09:00 12/24/19 09:00 12/23/19 08:27 Phosphorus (Phospha 250 Neutral) 500 mg ONCE GT 12/23/19 10:30 12/23/19 12:30 Pyridoxine HCl (Vitamin B6) 50 mg DAILY GT 12/18/19 09:00 01/17/20 08:59 12/23/19 08:27 Vancomycin HCl (Vanco pharmacy to dose) 1 ea DAILY PRN MISC PER RX PROTOCOL 12/18/19 06:45 01/17/20 06:44 Vancomycin HCl 1 gm/Sodium Chloride 250 ml @ 167.007 mls/hr Q12HR@0900,2100 IVPB 12/22/19 21:00 12/27/19 20:59 12/23/19 08:27 Assessment/Plan Assessment/Plan Septic shock due to UTI, resolved Hypoxemia; on nasal o2 2L Azotemia Advanced Dementia H/o Hypertension COPD Latent TB Previous CVA Previous PEG for dysphasia/GERD Depression Functional quadriplegia Adult failure to thrive Sacral decubitus ulcer Impression: - IVF dc - IV Antibiotics per ID - Monitor labs - Supplemental o2 - PTAMeds - PPX - DNAR/DNI status No longer on pressors Saturating well on 2L/min o2 Easton Arzola MD Dec 23, 2019 11:03
[2019-12-23 12:00] VITALS: BP 116/62
--- NOTE | 2019-12-23 14:30 | NUR ---
NURSE NOTES: Sputum specimen recollected by RT via nasopharyheal suction/sputum inducement. Sample sent to lab.
--- NOTE | 2019-12-23 15:11 | NUR ---
NURSE NOTES: Dr. Torres made rounds and is aware of blood culture results drawn 12/20 showing gram positive cocci in clusters.
--- NOTE | 2019-12-23 15:16 | Diagnostic Imaging Report ---
Indication: Shortness of breath Technique: One view of the chest Comparison: 12/21/2019 Findings: Right basilar infiltrate appears partially improved. Previously demonstrated right pleural effusion appears resolved. Interim removal of central venous catheter. Left lung and pleural space remain clear. Impression: Improved but persistent right basilar infiltrate Radiographically resolved right pleural effusion
--- NOTE | 2019-12-23 15:53 | NUR ---
CASE MANAGEMENT:REVIEW SI;SEPTIC SHOCK. UTI. BACTEREMIA. 99.1 104 22 152/84 96% 2L NC FIO2 28% H/H 9.1/27.0 AST 75 ALB 2.3 IS;PHOSPHORUS GT ONCE VANCOMYCIN IV Q12 MEROPENEM IV Q8 IVF D5W @ 75 ML/HR ASA GT QD PROTONIX IV Q12 ISONIAZID GT QD HEPARIN SUBQ Q12 MED [facility]G [facility]
--- NOTE | 2019-12-23 15:54 | Infectious Diseases Prog Note ---
Assessment/Plan Assessment/Plan ASSESSMENT AND PLAN: 1. e.coli bacteremia/esbl proteu bacteremia, uti, ? aspiration pna/hcap, sepsis, fevers, leukocytosis 1/4 gram + blood cultures likely contaminant - meropenem x 7 days - vancomycin x 5 days - f/u on ID blood cultures - monitor labs - d/w Dr. Stone -d/w microbiology - chest x-ray improved 2. The patient has a history of wound - continue wound care protocol. 3. Dementia that is advanced. 4. Dysphagia. 5. PEG feeding tube. 6. Hypertension. 7. COPD. 8. Depression. 9. PVC's. 10. GERD. 11. Functional quadriplegia. 12. Failure to thrive. 13. BPH. 14. Anemia. 15. Latent tuberculosis. With regards to latent tuberculosis, continue INH and pyridoxine for a total of 9-month course. It is unclear how long he has been on this from the [facility]. 16. Social history is negative. 17. Allergies are negative. 18. Family history is noncontributory. 19. MAR is noted. 20. Case was discussed with RN. 21. Case was communicated with primary care team. Subjective Constitutional: Denies: fever HEENT: Denies: congestion Respiratory: Denies: shortness of breath Cardiovascular: Denies: chest pain Gastrointestinal/Abdominal: Denies: nausea, vomiting, diarrhea Genitourinary: Reports: other - + duggan Neurologic: Denies: headache Psychiatric: Denies: depression Skin: Denies: rash Hematologic: Denies: bleeding Musculoskeletal: Denies: pain Allergies: Coded Allergies: No Known Allergies (Unverified , 08/20/18) Objective Last 24 Hour Vital Signs Date Time Temp Pulse Resp B/P (MAP) Pulse Ox O2 Delivery O2 Flow Rate FiO2 12/23/19 14:08 97 Nasal Cannula 2.0 28 12/23/19 14:07 81 16 97 Nasal Cannula 2.0 28 12/23/19 12:00 98.2 92 20 116/62 (80) 97 12/23/19 09:00 Nasal Cannula 2.0 12/23/19 08:00 98.6 87 20 111/64 (80) 94 12/23/19 04:00 98.1 82 20 124/74 (91) 98 12/23/19 00:00 98.2 95 22 102/70 (81) 96 12/22/19 21:00 Nasal Cannula 2.0 12/22/19 20:00 99.1 104 20 152/84 (106) 96 12/22/19 19:43 96 Nasal Cannula 2.0 28 12/22/19 19:43 88 20 96 Nasal Cannula 2.0 28 12/22/19 16:00 98.2 92 20 122/72 (89) 96 Height (Feet): 5 Height (Inches): 4.00 Weight (Pounds): 140 General Appearance: no acute distress HEENT: normocephalic, atraumatic, anicteric, mucous membranes moist Respiratory/Chest: no respiratory distress, no accessory muscle use, crackles/rales, rhonchi - bilaterally Cardiovascular: normal rate, regular rhythm, no gallop/murmur Abdomen: normal bowel sounds, soft, non tender, no organomegaly, non distended Genitourinary: other - + duggan - urine slt cloudy Extremities: no cyanosis Skin: no rash Neurologic/Psychiatric: museum guide II-XII grossly normal, alert, responsive Lymphatic: no neck adenopathy Musculoskeletal: no effusion Chest x-ray - 01/21/20 - Procedure: XRAY Chest 1v Indication: Shortness of breath Technique: One view of the chest Comparison: 12/18/2019 Findings: Interim increase in dense consolidation of the right lower lobe, as well as of the inferior right upper lobe and possibly the middle lobe. Interim development of a right pleural effusion. Left lung and pleural space remain grossly clear. Heart size is normal. Left jugular central venous catheter is again noted Impression: Markedly increased dense right lower lobe and inferior right upper lobe and middle lobe consolidation, since prior exam of 3 days earlier Developing right pleural effusion Other stable findings as noted Chest x-ray - 12/23/19- Procedure: XRAY Chest 1v Indication: Shortness of breath Technique: One view of the chest Comparison: 12/21/2019 Findings: Right basilar infiltrate appears partially improved. Previously demonstrated right pleural effusion appears resolved. Interim removal of central venous catheter. Left lung and pleural space remain clear. Impression: Improved but persistent right basilar infiltrate Radiographically resolved right pleural effusion Microbiology Date/Time Source Procedure Growth Status 12/21/19 16:15 Blood Blood Culture - Preliminary NO GROWTH AFTER 24 HOURS Resulted 12/17/19 23:30 Nasopharynx SARS-CoV-2 RdRp Gene Assay - Final Complete Microbiology Date/Time Source Procedure Growth Status 12/21/19 16:15 Blood Blood Culture - Preliminary NO GROWTH AFTER 24 HOURS Resulted 12/21/19 16:00 Blood Blood Culture - Preliminary Resulted Laboratory Tests Test 12/22/19 15:50 12/22/19 16:44 12/22/19 21:02 12/23/19 05:42 Vancomycin Level Trough 22.4 ug/mL (5.0-12.0) H POC Whole Blood Glucose Pending 125 MG/DL (74-106) H White Blood Count 5.8 K/UL (4.8-10.8) Red Blood Count 2.94 M/UL (4.70-6.10) L Hemoglobin 9.1 G/DL (14.2-18.0) L Hematocrit 27.0 % (42.0-52.0) L Mean Corpuscular Volume 92 FL (80-99) Mean Corpuscular Hemoglobin 31.0 PG (27.0-31.0) Mean Corpuscular Hemoglobin Concent 33.7 G/DL (32.0-36.0) Red Cell Distribution Width 14.2 % (11.6-14.8) Platelet Count 164 K/UL (150-450) Mean Platelet Volume 9.0 FL (6.5-10.1) Neutrophils (%) (Auto) 54.0 % (45.0-75.0) Lymphocytes (%) (Auto) 28.8 % (20.0-45.0) Monocytes (%) (Auto) 9.8 % (1.0-10.0) Eosinophils (%) (Auto) 6.3 % (0.0-3.0) H Basophils (%) (Auto) 1.2 % (0.0-2.0) Sodium Level 137 MMOL/L (136-145) Potassium Level 3.9 MMOL/L (3.5-5.1) Chloride Level 104 MMOL/L (98-107) Carbon Dioxide Level 26 MMOL/L (21-32) Anion Gap 7 mmol/L (5-15) Blood Urea Nitrogen 11 mg/dL (7-18) Creatinine 0.7 MG/DL (0.55-1.30) Estimat Glomerular Filtration Rate > 60 mL/min (>60) Glucose Level 131 MG/DL (74-106) H Calcium Level 8.5 MG/DL (8.5-10.1) Phosphorus Level 2.3 MG/DL (2.5-4.9) L Magnesium Level 1.9 MG/DL (1.8-2.4) Total Bilirubin 0.5 MG/DL (0.2-1.0) Aspartate Amino Transf (AST/SGOT) 75 U/L (15-37) H Alanine Aminotransferase (ALT/SGPT) 62 U/L (12-78) Alkaline Phosphatase 100 U/L (46-116) Total Protein 6.4 G/DL (6.4-8.2) Albumin 2.3 G/DL (3.4-5.0) L Globulin 4.1 g/dL Albumin/Globulin Ratio 0.6 (1.0-2.7) L Random Gentamicin Level 2.4 ug/mL Current Medications Medications (Trade) Dose Ordered Sig/Altagracia Route PRN Reason Start Time Stop Time Status Last Admin Dose Admin Acetaminophen (Tylenol) 650 mg Q4H PRN ORAL Fever 12/18/19 05:15 01/17/20 05:14 12/22/19 04:32 Aspirin (ASA) 325 mg DAILY ORAL 12/19/19 11:00 02/02/20 10:59 12/23/19 08:27 Atorvastatin Calcium (Lipitor) 40 mg BEDTIME ORAL 12/19/19 21:00 03/18/20 20:59 12/22/19 20:44 Chlorhexidine Gluconate (Corazon-Hex 2%) 1 applic DAILY@2000 TOPIC 12/20/19 20:00 03/19/20 19:59 12/21/19 21:02 Dextrose (Dextrose 50%) 25 ml Q30M PRN IV Hypoglycemia 12/18/19 05:15 03/17/20 05:14 Dextrose (Dextrose 50%) 50 ml Q30M PRN IV Hypoglycemia 12/18/19 05:15 03/17/20 05:14 Doxazosin Mesylate (Cardura) 1 mg DAILY GT 12/18/19 09:00 01/17/20 08:59 12/23/19 08:27 Ergocalciferol (Drisdol) 50,000 intlu ONCE A WEEK ORAL 12/19/19 09:00 01/18/20 08:59 12/19/19 10:33 Finasteride (Proscar) 5 mg DAILY ORAL 12/18/19 09:00 03/17/20 08:59 12/23/19 08:27 Gentamicin Protocol (Gentamicin pharmacy to dose) 1 ea DAILY PRN MISC Per rx protocol 12/22/19 15:00 01/21/20 14:59 Gentamicin Sulfate 280 mg/ Sodium Chloride 117 ml @ 117 mls/hr Q24H IVPB 12/23/19 17:00 12/30/19 16:59 Heparin Sodium (Porcine) (Heparin 5000 units/ml) 5,000 units EVERY 12 HOURS SUBQ 12/18/19 09:00 02/01/20 08:59 12/23/19 08:29 Insulin Aspart (NovoLOG) BEFORE MEALS AND HS SUBQ 12/18/19 06:30 03/17/20 06:29 12/22/19 11:58 Isoniazid (Inh) 300 mg DAILY GT 12/18/19 09:00 01/17/20 08:59 12/23/19 08:28 Lactobacillus Acidophilus (Culturelle) 1 tab TWICE A DAY GT 12/18/19 09:00 03/17/20 08:59 12/23/19 08:27 Meropenem 1 gm/ Sodium Chloride 100 ml @ 200 mls/hr Q8HR IVPB 12/21/19 22:00 12/26/19 21:59 12/23/19 13:44 Ondansetron HCl (Zofran) 4 mg Q6H PRN IVP Nausea & Vomiting 12/18/19 05:15 01/17/20 05:14 Pantoprazole (Protonix) 40 mg EVERY 12 HOURS IVP 12/18/19 21:00 01/17/20 20:59 12/23/19 08:28 Phosphorus (Phospha 250 Neutral) 250 mg THREE TIMES A DAY ORAL 12/21/19 09:00 12/24/19 09:00 12/23/19 13:44 Pyridoxine HCl (Vitamin B6) 50 mg DAILY GT 12/18/19 09:00 01/17/20 08:59 12/23/19 08:27 Vancomycin HCl (Vanco pharmacy to dose) 1 ea DAILY PRN MISC PER RX PROTOCOL 12/18/19 06:45 01/17/20 06:44 Vancomycin HCl 1 gm/Sodium Chloride 250 ml @ 167.007 mls/hr Q12HR@0900,2100 IVPB 12/22/19 21:00 12/27/19 20:59 12/23/19 08:27 Bonny Rincon MD Dec 23, 2019 15:54
--- NOTE | 2019-12-23 15:54 | Cardiology Report ---
APPROVED REPORT EXAM: Two-dimensional and M-mode echocardiogram with Doppler and color Doppler. INDICATION TACHYCARDIA M-Mode DIMENSIONS IVSd0.8 (0.7-1.1cm)Left Atrium (MM)4.5 (1.6-4.0cm) LVDd2.7 (3.5-5.6cm)Aortic Root3.3 (2.0-3.7cm) PWd0.9 (0.7-1.1cm)Aortic Cusp Exc.1.9 (1.5-2.0cm) IVSs1.1 cm LVDs1.3 (2.5-4.0cm) PWs1.3 cm <Conclusion> Technically difficult study due to poor acoustical windows. Normal left ventricular chamber size, systolic function and wall motion. Left ventricular ejection fraction estimated to be 55%. Left atrial size at upper limits of normal. Right cardiac chamber sizes are within normal limits. Focal aortic valve sclerosis with adequate cusp excursion. Thickened mitral valve leaflets with normal excursion. Mitral annulus and aortic root calcification. Normal pulmonic valve structure. Normal tricuspid valve structure. IVC measured at size 2.1 cm with physiologic collapse. A color flow and spectral Doppler study was performed and revealed: Trace mitral regurgitation. Mitral diastolic velocities suggest reduced left ventricular relaxation c/w mild LV diastolic dysfunction (Grade I ). Trace tricuspid regurgitation. Tricuspid systolic velocities suggests peak right ventricular systolic pressure of 15 mmHg.
[2019-12-23 16:00] VITALS: BP 123/70
--- NOTE | 2019-12-23 16:24 | Cardiology Report ---
APPROVED REPORT EKG Measurement Heart [id number] <Conclusion> Normal sinus rhythm Normal ECG
[2019-12-23] MEDS ORDERED: GENTAMICIN IVPB SCH (17:00)
[2019-12-23] MEDS ORDERED: NS IVPB SCH (17:00)
--- NOTE | 2019-12-23 17:04 | Cardiac Electrophysiology PN ---
Assessment/Plan Assessment/Plan 1. Sinus tachycardia due due to sepsis with white count of 22,000. Patient is already on IV antibiotic per ID. Now at time leroy in 50s Sputum Cx sent again 2. S/P septic shock, currently off pressors 3. Advanced dementia, bedbound, nonverbal, and care dependent. 4. Dysphagia, status post PEG placement. 5. COPD. 6. Functional quadriplegia. 7. Sacral decubitus. 8. Fever and Lactic acidosis. On iv abx per ID. KARLEY RN Subjective Subjective Nonverbal. GT feeding ongoing.Febrile and Left IJ line was removed. Sputum Cx sent Objective Last 24 Hour Vital Signs Date Time Temp Pulse Resp B/P (MAP) Pulse Ox O2 Delivery O2 Flow Rate FiO2 12/23/19 16:00 98.2 92 20 123/70 (87) 98 12/23/19 14:08 97 Nasal Cannula 2.0 28 12/23/19 14:07 81 16 97 Nasal Cannula 2.0 28 12/23/19 12:00 98.2 92 20 116/62 (80) 97 12/23/19 09:00 Nasal Cannula 2.0 12/23/19 08:00 98.6 87 20 111/64 (80) 94 12/23/19 04:00 98.1 82 20 124/74 (91) 98 12/23/19 00:00 98.2 95 22 102/70 (81) 96 12/22/19 21:00 Nasal Cannula 2.0 12/22/19 20:00 99.1 104 20 152/84 (106) 96 12/22/19 19:43 96 Nasal Cannula 2.0 28 12/22/19 19:43 88 20 96 Nasal Cannula 2.0 28 Intake and Output 12/22/19 12/23/19 19:00 07:00 Intake Total 595 ml 1920 ml Output Total 2450 ml 1700 ml Balance -1855 ml 220 ml Free Water 30 ml 30 ml IV Total 75 ml 1050 ml Tube Feeding 490 ml 840 ml Output Urine Total 2450 ml 1700 ml # Bowel Movements 1 Laboratory Tests Test 12/22/19 21:02 12/23/19 05:42 12/23/19 16:52 POC Whole Blood Glucose 125 MG/DL (74-106) H 83 MG/DL (74-106) White Blood Count 5.8 K/UL (4.8-10.8) Red Blood Count 2.94 M/UL (4.70-6.10) L Hemoglobin 9.1 G/DL (14.2-18.0) L Hematocrit 27.0 % (42.0-52.0) L Mean Corpuscular Volume 92 FL (80-99) Mean Corpuscular Hemoglobin 31.0 PG (27.0-31.0) Mean Corpuscular Hemoglobin Concent 33.7 G/DL (32.0-36.0) Red Cell Distribution Width 14.2 % (11.6-14.8) Platelet Count 164 K/UL (150-450) Mean Platelet Volume 9.0 FL (6.5-10.1) Neutrophils (%) (Auto) 54.0 % (45.0-75.0) Lymphocytes (%) (Auto) 28.8 % (20.0-45.0) Monocytes (%) (Auto) 9.8 % (1.0-10.0) Eosinophils (%) (Auto) 6.3 % (0.0-3.0) H Basophils (%) (Auto) 1.2 % (0.0-2.0) Sodium Level 137 MMOL/L (136-145) Potassium Level 3.9 MMOL/L (3.5-5.1) Chloride Level 104 MMOL/L (98-107) Carbon Dioxide Level 26 MMOL/L (21-32) Anion Gap 7 mmol/L (5-15) Blood Urea Nitrogen 11 mg/dL (7-18) Creatinine 0.7 MG/DL (0.55-1.30) Estimat Glomerular Filtration Rate > 60 mL/min (>60) Glucose Level 131 MG/DL (74-106) H Calcium Level 8.5 MG/DL (8.5-10.1) Phosphorus Level 2.3 MG/DL (2.5-4.9) L Magnesium Level 1.9 MG/DL (1.8-2.4) Total Bilirubin 0.5 MG/DL (0.2-1.0) Aspartate Amino Transf (AST/SGOT) 75 U/L (15-37) H Alanine Aminotransferase (ALT/SGPT) 62 U/L (12-78) Alkaline Phosphatase 100 U/L (46-116) Total Protein 6.4 G/DL (6.4-8.2) Albumin 2.3 G/DL (3.4-5.0) L Globulin 4.1 g/dL Albumin/Globulin Ratio 0.6 (1.0-2.7) L Random Gentamicin Level 2.4 ug/mL Microbiology Date/Time Source Procedure Growth Status 12/21/19 16:15 Blood Blood Culture - Preliminary NO GROWTH AFTER 24 HOURS Resulted 12/21/19 16:00 Blood Blood Culture - Preliminary Resulted Objective HEAD AND NECK: No JVD. LUNGS: Coarse rhonchi. CARDIOVASCULAR: Regular S1 and S2 and tachycardic. ABDOMEN: Soft. Status post G-tube. EXTREMITIES: Contracted. Ismael Christine MD Dec 23, 2019 17:04
[2019-12-23] MEDS ORDERED: Tubing IV Secondary IV ONE (18:10)
[2019-12-23] MEDS ORDERED: 1/2 NS 1000ml IV ONE (18:10)
--- NOTE | 2019-12-23 18:16 | Nephrology Progress Note ---
Assessment/Plan Plan #BRYANT due to pre- renal azotemia in the setting of sepsis - r/o ATN #septic shock due to UTI #advanced dementia (bedbound, nonverbal, PEG dependent at baseline) #dysphasia s/p PEG tube #COPD #HTN #Depression - continue IVF - antibiotics - monitor vanco level closely - pressors to maintain MAP> 65 - hold antihypetensives - further work up if no improvement in renal function with hydration Subjective ROS Limited/Unobtainable: Yes Subjective Cr improved vitals stable K low repleted Objective Objective Last 24 Hour Vital Signs Date Time Temp Pulse Resp B/P (MAP) Pulse Ox O2 Delivery O2 Flow Rate FiO2 12/23/19 16:00 98.2 92 20 123/70 (87) 98 12/23/19 14:08 97 Nasal Cannula 2.0 28 12/23/19 14:07 81 16 97 Nasal Cannula 2.0 28 12/23/19 12:00 98.2 92 20 116/62 (80) 97 12/23/19 09:00 Nasal Cannula 2.0 12/23/19 08:00 98.6 87 20 111/64 (80) 94 12/23/19 04:00 98.1 82 20 124/74 (91) 98 12/23/19 00:00 98.2 95 22 102/70 (81) 96 12/22/19 21:00 Nasal Cannula 2.0 12/22/19 20:00 99.1 104 20 152/84 (106) 96 12/22/19 19:43 96 Nasal Cannula 2.0 28 12/22/19 19:43 88 20 96 Nasal Cannula 2.0 28 Intake and Output 12/22/19 12/23/19 19:00 07:00 Intake Total 595 ml 1920 ml Output Total 2450 ml 1700 ml Balance -1855 ml 220 ml Free Water 30 ml 30 ml IV Total 75 ml 1050 ml Tube Feeding 490 ml 840 ml Output Urine Total 2450 ml 1700 ml # Bowel Movements 1 Laboratory Tests 12/22/19 21:02: POC Whole Blood Glucose 125H 12/23/19 05:42: White Blood Count 5.8, Red Blood Count 2.94L, Hemoglobin 9.1L, Hematocrit 27.0L, Mean Corpuscular Volume 92, Mean Corpuscular Hemoglobin 31.0, Mean Corpuscular Hemoglobin Concent 33.7, Red Cell Distribution Width 14.2, Platelet Count 164, Mean Platelet Volume 9.0, Neutrophils (%) (Auto) 54.0, Lymphocytes (%) (Auto) 28.8, Monocytes (%) (Auto) 9.8, Eosinophils (%) (Auto) 6.3H, Basophils (%) (Auto) 1.2, Sodium Level 137, Potassium Level 3.9, Chloride Level 104, Carbon Dioxide Level 26, Anion Gap 7, Blood Urea Nitrogen 11, Creatinine 0.7, Estimat Glomerular Filtration Rate > 60, Glucose Level 131H, Calcium Level 8.5, Phosphorus Level 2.3L, Magnesium Level 1.9, Total Bilirubin 0.5, Aspartate Amino Transf (AST/SGOT) 75H, Alanine Aminotransferase (ALT/SGPT) 62, Alkaline Phosphatase 100, Total Protein 6.4, Albumin 2.3L, Globulin 4.1, Albumin/Globulin Ratio 0.6L, Random Gentamicin Level 2.4 12/23/19 16:52: POC Whole Blood Glucose 83 Height (Feet): 5 Height (Inches): 4.00 Weight (Pounds): 140 Objective General Appearance: no apparent distress, alert, confused Lines, tubes and drains: peripheral, central line HEENT: normocephalic Neck: non-tender Respiratory/Chest: lungs clear Cardiovascular/Chest: normal peripheral pulses, normal rate, regular rhythm Abdomen: normal bowel sounds, soft Extremities: normal range of motion Skin Exam: warm/dry Musculoskeletal: atrophy Jelani Sauer M.D. Dec 23, 2019 18:16
--- NOTE | 2019-12-23 19:26 | NUR ---
NURSE HAND-OFF: Important Events on Shift: No adverse events noted Patient Status: Stable Diet: Jevity 1.2 Pending Orders: None Pending Results/Labs:AM labs Pending MD notification:None Latest Vital Signs: Temperature 98.2 , Pulse 83 , B/P 123 /70 , Respiratory Rate 16 , O2 SAT 96 , Nasal Cannula, O2 Flow Rate 2.0 . Vital Sign Comment: Latest Bartholomew Fall Score: 70 Fall Risk: High Risk Safety Measures: Call light Within Reach, Bed Alarm Zone 3, Side Rails Side Rails x2, Bed position Low and Locked. Fall Precautions: Yellow Socks Yellow Gown Patient Fall Education Report given to Jos CURRY.
--- NOTE | 2019-12-23 19:38 | NUR ---
NURSE NOTES: Patient in bed, non verbal. With IV access on the right hand. Gtube connected to [employer] 1.2 @ 70cc/hr. Manriquez cath intact and draining to urine bag. Call light and needs in reach. Bed in lowest, locked engaged and alarm on. Will continue plan of care.
[2019-12-23 20:00] VITALS: BP 146/78
[2019-12-23] MEDS: Dyna-Hex 2% Top Sol 2oz TOPIC SCH ×2 (20:00→21:23)
[2019-12-23] MEDS: Atorvastatin 20mg tab ORAL SCH (21:28)
--- NOTE | 2019-12-23 23:04 | NUR ---
HAND-OFF: Report given to [employer].
--- NOTE | 2019-12-23 23:11 | NUR ---
NURSE NOTES: Report received from ANTOINETTE Arguello. Patient in bed, non verbal, contracted, multiple wounds, will turn frequently. IV access on the right hand. G tube running Jevity 1.2 @ 70ml/hr. Aspiration precautions maintained. Manriquez cath patent and draining to gravity Call light and needs in reach. Bed in lowest position, locked, bed alarm on. Will continue plan of care.
[2019-12-24] VITALS: BP 134/75
--- NOTE | 2019-12-24 | NUR ---
NURSE NOTES: Noticed left ear where nasal cannula was has slight dti, redness and scab, took pictures, to be uploaded, multiple dti's and wounds, sacral dti, feet, back, L upper arm/shoulder, etc
[2019-12-24 04:00] VITALS: BP 128/76
[2019-12-24] MEDS: NovoLOG Insulin Flexpen SUBQ SCH (06:10)
--- NOTE | 2019-12-24 07:45 | NUR ---
NURSE NOTES: received patient in bed, non verbal, no sign of distress, no fascial grimace noted, HL patent , noted patient is contracted,with multiple wounds, will turn frequently.on G tube feeding running Jevity 1.2 @ 70ml/hr. Aspiration precautions maintained. Manriquez cath patent and draining to gravity Call light and needs in reach. Bed in lowest position, locked, bed alarm on. Will continue plan of care. henry daugherty
[2019-12-24 08:00] VITALS: BP 132/77
--- NOTE | 2019-12-24 08:15 | NUR ---
NURSE HAND-OFF: Important Events on Shift: noted left ear- nasal cannula- behind it noticed dti redness and small scab, applied gauze to nasal cannula to protect ear Patient Status: Stable Diet: Jevity 1.2, 70 ml/h, no residual Pending Orders: None Pending Results/Labs:AM labs Pending MD notification: podiatry? pt has R 5th metatarsal nail is almost off, toe is deformed Latest Vital Signs: Temperature 98.2 , Pulse 83 , B/P 123 /70 , Respiratory Rate 16 , O2 SAT 96 , Nasal Cannula 2L O2 Flow Rate 2.0 . Vital Sign Comment: Latest Bartholomew Fall Score: 70 Fall Risk: High Risk Safety Measures: Call light Within Reach, Bed Alarm Zone 3, Side Rails Side Rails x2, Bed position Low and Locked. Fall Precautions: Yellow Socks Yellow Gown Patient Fall Education Report given to Sneha Vang RN
[2019-12-24 08:30] LABS: BASOPHILS % (AUTO) 1.8 % (0.0-2.0); EOSINOPHILS % (AUTO) 8.7 % (0.0-3.0); HEMATOCRIT 25.5 % (42.0-52.0); HEMOGLOBIN 8.8 G/DL (14.2-18.0); LYMPHOCYTES % (AUTO) 27.1 % (20.0-45.0); MEAN CORPUSCULAR VOLUME 91 FL (80-99); MONOCYTES % (AUTO) 12.1 % (1.0-10.0); NEUTROPHILS % (AUTO) 50.2 % (45.0-75.0); PLATELET COUNT 201 K/UL (150-450); RED BLOOD COUNT 2.82 M/UL (4.70-6.10); RED CELL DISTRIBUTION WIDTH 14.1 % (11.6-14.8)
[2019-12-24 08:35] LABS: ANION GAP 7 mmol/L (5-15); BLOOD UREA NITROGEN 15 mg/dL (7-18); CALCIUM 8.3 MG/DL (8.5-10.1); CARBON DIOXIDE 29 MMOL/L (21-32); CHLORIDE 103 MMOL/L (98-107); CREATININE 0.8 MG/DL (0.55-1.30); PHOSPHORUS 3.7 MG/DL (2.5-4.9); POTASSIUM 3.9 MMOL/L (3.5-5.1); SODIUM 139 MMOL/L (136-145)
[2019-12-24] MEDS: Pantoprazole Inj IVP SCH (08:43)
[2019-12-24] MEDS: Heparin 5000 units/ml inj SUBQ SCH (08:45)
[2019-12-24] MEDS: Doxazosin 1mg Tab GT SCH (08:45)
[2019-12-24] MEDS: Isoniazid 300mg tab GT SCH (08:45)
[2019-12-24] MEDS: Phospha 250 Neutral tab ORAL SCH (08:45)
[2019-12-24] MEDS: Pyridoxine 50mg tab GT SCH (08:45)
[2019-12-24] MEDS: Lactobacillus-GG tablet GT SCH (08:45)
--- NOTE | 2019-12-24 09:12 | Hematology/Onc Progress Note ---
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 # BPH --> Chronic indwelling duggan. Continue proscar. # Dementia/FTT/Functional Quadriplegia, PEG tube dependent # Depression # Decubitus Ulcers/Diffuse Pressure wounds --> nutrition consulted for tube feeds --> Wound care consulted, recs appreciated #. Onychomycosis --> consider podiatry eval # Pulm opacities --> per pulm # Nonverbal # Dementia # COPD # Dvt ppx hep Appreciate consultation and dw RN Subjective Allergies: Coded Allergies: No Known Allergies (Unverified , 08/20/18) Subjective Subjective 12/19 nv, is on abx, wbc improved,on ivfs continuously 12/20 on oxygen overnight with elev ddimer, i asked rn to order venous duplex, otherwise plt 110 12/21 on abx broad spectrum, on vanc/néstor labs reviewed, hgb stable, esbl in blood 12/22 remains on nc, dnr/dni is on fluids, labs reviewed 12/23: rounded with RN toenails are long Objective Objective Current Medications Medications (Trade) Dose Ordered Sig/Altagracia Route PRN Reason Start Time Stop Time Status Last Admin Dose Admin Acetaminophen (Tylenol) 650 mg Q4H PRN ORAL Fever 12/18/19 05:15 01/17/20 05:14 12/22/19 04:32 Aspirin (ASA) 325 mg DAILY ORAL 12/19/19 11:00 02/02/20 10:59 12/24/19 08:45 Atorvastatin Calcium (Lipitor) 40 mg BEDTIME ORAL 12/19/19 21:00 03/18/20 20:59 12/23/19 21:28 Chlorhexidine Gluconate (Corazon-Hex 2%) 1 applic DAILY@1999 TOPIC 12/20/19 20:00 03/19/20 19:59 12/21/19 21:02 Dextrose (Dextrose 50%) 25 ml Q30M PRN IV Hypoglycemia 12/18/19 05:15 03/17/20 05:14 Dextrose (Dextrose 50%) 50 ml Q30M PRN IV Hypoglycemia 12/18/19 05:15 03/17/20 05:14 Doxazosin Mesylate (Cardura) 1 mg DAILY GT 12/18/19 09:00 01/17/20 08:59 12/24/19 08:45 Ergocalciferol (Drisdol) 50,000 intlu ONCE A WEEK ORAL 12/19/19 09:00 01/18/20 08:59 12/19/19 10:33 Finasteride (Proscar) 5 mg DAILY ORAL 12/18/19 09:00 03/17/20 08:59 12/24/19 08:45 Heparin Sodium (Porcine) (Heparin 5000 units/ml) 5,000 units EVERY 12 HOURS SUBQ 12/18/19 09:00 02/01/20 08:59 12/24/19 08:45 Insulin Aspart (NovoLOG) BEFORE MEALS AND HS SUBQ 12/18/19 06:30 03/17/20 06:29 12/22/19 11:58 Isoniazid (Inh) 300 mg DAILY GT 12/18/19 09:00 01/17/20 08:59 12/24/19 08:45 Lactobacillus Acidophilus (Culturelle) 1 tab TWICE A DAY GT 12/18/19 09:00 03/17/20 08:59 12/24/19 08:45 Meropenem 1 gm/ Sodium Chloride 100 ml @ 200 mls/hr Q8HR IVPB 12/21/19 22:00 12/26/19 21:59 12/24/19 06:17 Ondansetron HCl (Zofran) 4 mg Q6H PRN IVP Nausea & Vomiting 12/18/19 05:15 01/17/20 05:14 Pantoprazole (Protonix) 40 mg EVERY 12 HOURS IVP 12/18/19 21:00 01/17/20 20:59 12/24/19 08:43 Pyridoxine HCl (Vitamin B6) 50 mg DAILY GT 12/18/19 09:00 01/17/20 08:59 12/24/19 08:45 Vancomycin HCl (Vanco pharmacy to dose) 1 ea DAILY PRN MISC PER RX PROTOCOL 12/18/19 06:45 01/17/20 06:44 Last 24 Hour Vital Signs Date Time Temp Pulse Resp B/P (MAP) Pulse Ox O2 Delivery O2 Flow Rate FiO2 12/24/19 08:12 91 16 98 Nasal Cannula 2.0 28 12/24/19 08:12 98 Nasal Cannula 2.0 28 12/24/19 08:00 97.9 84 18 132/77 (95) 100 12/24/19 04:00 97.9 102 26 128/76 (93) 98 12/24/19 00:00 98.2 103 26 134/75 (94) 95 12/23/19 21:00 Nasal Cannula 2.0 12/23/19 20:00 97.5 84 20 146/78 (100) 97 12/23/19 19:16 83 16 96 Nasal Cannula 2.0 28 12/23/19 19:16 96 Nasal Cannula 2.0 28 12/23/19 16:00 98.2 92 20 123/70 (87) 98 12/23/19 14:08 97 Nasal Cannula 2.0 28 12/23/19 14:07 81 16 97 Nasal Cannula 2.0 28 12/23/19 12:00 98.2 92 20 116/62 (80) 97 12/23/19 09:00 Nasal Cannula 2.0 12/23/19 08:00 98.6 87 20 111/64 (80) 94 12/23/19 04:00 98.1 82 20 124/74 (91) 98 12/23/19 00:00 98.2 95 22 102/70 (81) 96 12/22/19 21:00 Nasal Cannula 2.0 12/22/19 20:00 99.1 104 20 152/84 (106) 96 12/22/19 19:43 96 Nasal Cannula 2.0 28 12/22/19 19:43 88 20 96 Nasal Cannula 2.0 28 12/22/19 16:00 98.2 92 20 122/72 (89) 96 12/22/19 12:00 98.2 92 20 127/77 (94) 98 Intake and Output 12/23/19 12/24/19 19:00 07:00 Intake Total 770 ml Output Total 1200 ml Balance -430 ml IV Total 350 ml Tube Feeding 420 ml Output Urine Total 1200 ml Labs Test 12/21/19 11:28 12/21/19 16:00 12/21/19 17:17 12/21/19 20:56 Vancomycin Level Trough 9.5 ug/mL (5.0-12.0) POC Whole Blood Glucose 128 MG/DL (74-106) 119 MG/DL (74-106) Test 12/21/19 23:30 12/22/19 04:45 12/22/19 15:50 12/22/19 16:44 Urine Color Pale yellow Urine Appearance Clear Urine pH 8 (4.5-8.0) Urine Specific [place] 1.010 (1.005-1.035) Urine Protein 2+ (NEGATIVE) Urine Glucose (UA) Negative (NEGATIVE) Urine Ketones Negative (NEGATIVE) Urine Blood 3+ (NEGATIVE) Urine Nitrite Negative (NEGATIVE) Urine Bilirubin Negative (NEGATIVE) Urine Urobilinogen Normal MG/DL (0.0-1.0) Urine Leukocyte Esterase 1+ (NEGATIVE) Urine RBC 10-15 /HPF (0 - 0) Urine WBC 0-2 /HPF (0 - 0) Urine Squamous Epithelial Cells None /LPF (NONE/OCC) Urine Bacteria None /HPF (NONE) White Blood Count 7.2 K/UL (4.8-10.8) Red Blood Count 2.73 M/UL (4.70-6.10) Hemoglobin 8.5 G/DL (14.2-18.0) Hematocrit 25.0 % (42.0-52.0) Mean Corpuscular Volume 92 FL (80-99) Mean Corpuscular Hemoglobin 31.1 PG (27.0-31.0) Mean Corpuscular Hemoglobin Concent 34.0 G/DL (32.0-36.0) Red Cell Distribution Width 14.1 % (11.6-14.8) Platelet Count 145 K/UL (150-450) Mean Platelet Volume 9.1 FL (6.5-10.1) Neutrophils (%) (Auto) 67.0 % (45.0-75.0) Lymphocytes (%) (Auto) 18.6 % (20.0-45.0) Monocytes (%) (Auto) 9.0 % (1.0-10.0) Eosinophils (%) (Auto) 4.1 % (0.0-3.0) Basophils (%) (Auto) 1.4 % (0.0-2.0) Erythrocyte Sedimentation Rate 111 MM/HR (0-20) Sodium Level 139 MMOL/L (136-145) Potassium Level 3.2 MMOL/L (3.5-5.1) Chloride Level 103 MMOL/L (98-107) Carbon Dioxide Level 28 MMOL/L (21-32) Anion Gap 8 mmol/L (5-15) Blood Urea Nitrogen 11 mg/dL (7-18) Creatinine 0.6 MG/DL (0.55-1.30) Estimat Glomerular Filtration Rate > 60 mL/min (>60) Glucose Level 105 MG/DL (74-106) Calcium Level 8.0 MG/DL (8.5-10.1) Phosphorus Level 1.8 MG/DL (2.5-4.9) Magnesium Level 1.9 MG/DL (1.8-2.4) C-Reactive Protein, Quantitative 14.7 mg/dL (0.00-0.90) Vancomycin Level Trough 22.4 ug/mL (5.0-12.0) Test 12/22/19 21:02 12/23/19 05:42 12/23/19 16:52 12/23/19 21:43 POC Whole Blood Glucose 125 MG/DL (74-106) 83 MG/DL (74-106) 86 MG/DL (74-106) White Blood Count 5.8 K/UL (4.8-10.8) Red Blood Count 2.94 M/UL (4.70-6.10) Hemoglobin 9.1 G/DL (14.2-18.0) Hematocrit 27.0 % (42.0-52.0) Mean Corpuscular Volume 92 FL (80-99) Mean Corpuscular Hemoglobin 31.0 PG (27.0-31.0) Mean Corpuscular Hemoglobin Concent 33.7 G/DL (32.0-36.0) Red Cell Distribution Width 14.2 % (11.6-14.8) Platelet Count 164 K/UL (150-450) Mean Platelet Volume 9.0 FL (6.5-10.1) Neutrophils (%) (Auto) 54.0 % (45.0-75.0) Lymphocytes (%) (Auto) 28.8 % (20.0-45.0) Monocytes (%) (Auto) 9.8 % (1.0-10.0) Eosinophils (%) (Auto) 6.3 % (0.0-3.0) Basophils (%) (Auto) 1.2 % (0.0-2.0) Sodium Level 137 MMOL/L (136-145) Potassium Level 3.9 MMOL/L (3.5-5.1) Chloride Level 104 MMOL/L (98-107) Carbon Dioxide Level 26 MMOL/L (21-32) Anion Gap 7 mmol/L (5-15) Blood Urea Nitrogen 11 mg/dL (7-18) Creatinine 0.7 MG/DL (0.55-1.30) Estimat Glomerular Filtration Rate > 60 mL/min (>60) Glucose Level 131 MG/DL (74-106) Calcium Level 8.5 MG/DL (8.5-10.1) Phosphorus Level 2.3 MG/DL (2.5-4.9) Magnesium Level 1.9 MG/DL (1.8-2.4) Total Bilirubin 0.5 MG/DL (0.2-1.0) Aspartate Amino Transf (AST/SGOT) 75 U/L (15-37) Alanine Aminotransferase (ALT/SGPT) 62 U/L (12-78) Alkaline Phosphatase 100 U/L (46-116) Total Protein 6.4 G/DL (6.4-8.2) Albumin 2.3 G/DL (3.4-5.0) Globulin 4.1 g/dL Albumin/Globulin Ratio 0.6 (1.0-2.7) Random Gentamicin Level 2.4 ug/mL Test 12/24/19 05:34 12/24/19 07:50 POC Whole Blood Glucose 126 MG/DL (74-106) White Blood Count 6.0 K/UL (4.8-10.8) Red Blood Count 2.82 M/UL (4.70-6.10) Hemoglobin 8.8 G/DL (14.2-18.0) Hematocrit 25.5 % (42.0-52.0) Mean Corpuscular Volume 91 FL (80-99) Mean Corpuscular Hemoglobin 31.4 PG (27.0-31.0) Mean Corpuscular Hemoglobin Concent 34.6 G/DL (32.0-36.0) Red Cell Distribution Width 14.1 % (11.6-14.8) Platelet Count 201 K/UL (150-450) Mean Platelet Volume 8.1 FL (6.5-10.1) Neutrophils (%) (Auto) 50.2 % (45.0-75.0) Lymphocytes (%) (Auto) 27.1 % (20.0-45.0) Monocytes (%) (Auto) 12.1 % (1.0-10.0) Eosinophils (%) (Auto) 8.7 % (0.0-3.0) Basophils (%) (Auto) 1.8 % (0.0-2.0) Sodium Level 139 MMOL/L (136-145) Potassium Level 3.9 MMOL/L (3.5-5.1) Chloride Level 103 MMOL/L (98-107) Carbon Dioxide Level 29 MMOL/L (21-32) Anion Gap 7 mmol/L (5-15) Blood Urea Nitrogen 15 mg/dL (7-18) Creatinine 0.8 MG/DL (0.55-1.30) Estimat Glomerular Filtration Rate > 60 mL/min (>60) Glucose Level 107 MG/DL (74-106) Calcium Level 8.3 MG/DL (8.5-10.1) Phosphorus Level 3.7 MG/DL (2.5-4.9) Magnesium Level 2.0 MG/DL (1.8-2.4) Vancomycin Level Trough 29.1 ug/mL (5.0-12.0) Height (Feet): 5 Height (Inches): 4.00 Weight (Pounds): 140 Objective General Appearance: nad, alert, confused Lines, tubes and drains: peripheral, central line HEENT: normocephalic Neck: non-tender Respiratory/Chest: lungs clear Cardiovascular/Chest: normal peripheral pulses Abdomen: normal bowel sounds, soft ++peg Extremities: normal range of motion Skin Exam: warm/dry Musculoskeletal: atrophy : ++Candy Jimenez NP Dec 24, 2019 09:12
--- NOTE | 2019-12-24 09:31 | NUR ---
DISCHARGE PLANNING PATIENT HAS BEEN REFERRED BACK TO [facility] P: [phone] F: [phone] Addendum: 12/24/19 at 1004 by FARNSICO JUAREZ LVN LVN PER ROXANN AT [facility], PATIENT ACCEPTED TO RETURN TO BED 18-B SKILLED BLS AMBULANCE TRANSPORT SCHEDULED WITH [facility] EXT 1369 WITH ETA @ 1130 PER JAMMIE Addendum: 12/24/19 at 1007 by FRANSICO JUAREZ LVN LVN CALL BACK RECEIVED FROM [facility] WITH BED ASSIGNMENT CHANGE TO 26-A
--- NOTE | 2019-12-24 10:02 | General Progress Note ---
Subjective ROS Limited/Unobtainable: Yes - patient non-verbal, unable to follow commands Allergies: Coded Allergies: No Known Allergies (Unverified , 08/20/18) Subjective No acute events overnight. Resting comfortably. No fevers in last 48 hours. VSS. Objective Last 24 Hour Vital Signs Date Time Temp Pulse Resp B/P (MAP) Pulse Ox O2 Delivery O2 Flow Rate FiO2 12/24/19 09:00 Nasal Cannula 2.0 12/24/19 08:12 91 16 98 Nasal Cannula 2.0 28 12/24/19 08:12 98 Nasal Cannula 2.0 28 12/24/19 08:00 97.9 84 18 132/77 (95) 100 12/24/19 04:00 97.9 102 26 128/76 (93) 98 12/24/19 00:00 98.2 103 26 134/75 (94) 95 12/23/19 21:00 Nasal Cannula 2.0 12/23/19 20:00 97.5 84 20 146/78 (100) 97 12/23/19 19:16 83 16 96 Nasal Cannula 2.0 28 12/23/19 19:16 96 Nasal Cannula 2.0 28 12/23/19 16:00 98.2 92 20 123/70 (87) 98 12/23/19 14:08 97 Nasal Cannula 2.0 28 12/23/19 14:07 81 16 97 Nasal Cannula 2.0 28 12/23/19 12:00 98.2 92 20 116/62 (80) 97 Intake and Output 12/23/19 12/24/19 19:00 07:00 Intake Total 770 ml 70 ml Output Total 1200 ml Balance -430 ml 70 ml IV Total 350 ml Tube Feeding 420 ml 70 ml Output Urine Total 1200 ml Laboratory Tests 12/23/19 16:52: POC Whole Blood Glucose 83 12/23/19 21:43: POC Whole Blood Glucose 86 12/24/19 05:34: POC Whole Blood Glucose 126H 12/24/19 07:50: White Blood Count 6.0, Red Blood Count 2.82L, Hemoglobin 8.8L, Hematocrit 25.5L, Mean Corpuscular Volume 91, Mean Corpuscular Hemoglobin 31.4H, Mean Corpuscular Hemoglobin Concent 34.6, Red Cell Distribution Width 14.1, Platelet Count 201, Mean Platelet Volume 8.1, Neutrophils (%) (Auto) 50.2, Lymphocytes (%) (Auto) 27.1, Monocytes (%) (Auto) 12.1H, Eosinophils (%) (Auto) 8.7H, Basophils (%) (Auto) 1.8, Sodium Level 139, Potassium Level 3.9, Chloride Level 103, Carbon Dioxide Level 29, Anion Gap 7, Blood Urea Nitrogen 15, Creatinine 0.8, Estimat Glomerular Filtration Rate > 60, Glucose Level 107H, Calcium Level 8.3L, Phosphorus Level 3.7, Magnesium Level 2.0, Vancomycin Level Trough 29.1H Height (Feet): 5 Height (Inches): 4.00 Weight (Pounds): 140 General Appearance: no apparent distress, other - non verbal EENT: PERRL/EOMI Neck: non-tender, supple Cardiovascular: normal rate, regular rhythm, regularly irregular Respiratory/Chest: lungs clear, normal breath sounds, no respiratory distress Abdomen: normal bowel sounds, non tender, soft, other - Gtube Genitourinary/Rectal: other - duggan Extremities: other - bilateral LE contractures Edema: no edema noted Arm (L), no edema noted Arm (R), no edema noted Leg (L), no edema noted Leg (R), no edema noted Pedal (L), no edema noted Pedal (R), no edema noted Generalized Neurologic: ornithology teacher II-XII grossly normal, disoriented, other - non verbal Skin: normal pigmentation, warm/dry Assessment/Plan Assessment/Plan: 73-year-old male with PMH of advanced dementia (bedbound, nonverbal, PEG dependent at baseline), dysphasia s/p PEG tube, COPD, HTN, depression, PVCs, GERD, functional quadriplegia, adult failure to thrive, sacral ulcer who presents from rehab facility for septic shock. #Septic Shock 2/2 Complicated UTI # ESBL Ecoli and ESBL Proteus Bacteremia # Fevers # Hospital Acquired RLL PNA # Multiple decubitus Ulcers -continue vanc, merrem per ID for another 4 days - no fevers last 48 hours, wbc stable - repeat BC polo contaminant with 1/2 bottles staph epi. -Duggan care -Evaluated by General surgery and does not appear to be source of sepsis -Wound care -Consult to ID - appreciate recs - discussed case with ID, ok with d/c so long as patient stable, fevers resolved and repeat BC negative #Acute hypoxic respiratory failure - stable - titrated off simple mask to 2L NC - keep O2 > 92%, monitor for increased O2 support - duonebs prn - CXR reviewed with new RLL PNA - pulm following - # Thrombocytponenia - normalized - likley from infection - unlikely HIT given timing of downtrending #Latent TB -4 AFBs collected - all 4 of them found to be negative (11/13, 11/14, 11/15, and 11/17). -T spot was positive which is in accordance with latent TB. -ID was consulted for further mangagement. -Patient was started on INH and Pyridoxine to be continued for total of 9 months. #Failure to thrive #Severe Malnourishment #Dysphagia eith G tube -Continue Tube feeds -Nutrition consult #Elevated troponin - ASA 325 given - High dose statin - EKG - Cardiology following # Anemia of chronic Dx - Trend Hg - Transfuse for Hg less than 8 if ACS - Consult to hematology CODE: DNR/DNI DVT: Heparin 5000 Subq BID Abx: vanc, merrem Fluids: none Diet: TF Gi: PPI 40 mg BID Dispo: DC to SNF once cleared by CM that they do not require PICC or else will have to wait till later in week I spent 32 minutes on this encounter with 21 min coordinating care and counseling. I discussed with all consultants and RNs. Time of note may not reflect time patient was seen. Gorge Stone D.O Dec 24, 2019 10:02
--- NOTE | 2019-12-24 10:40 | NUR ---
NURSE NOTES: sas etl developer spoke to Dr. Stone regarding discharge med recon. IMELDA Ariza said she sent all the clinical and SNF did not question about IV antibiotics. RN made Dr. Stone aware. He will do med recon once he gets to the computer.
--- NOTE | 2019-12-24 11:20 | NUR ---
nurse notes discharge to SNF obtained, patient family agreed with the plan of care,report given to Sam CURRY ACCORDINGLY ANTOINETTE CABRERA
[2019-12-24] MEDS ORDERED: Vanco pharmacy to dose MISC (11:25)
[2019-12-24] MEDS ORDERED: MERREM1 GM IV (11:25)
--- NOTE | 2019-12-24 11:28 | NUR ---
nurse notes report given to Sam preciado RN, Sam CURRY made aware patient patient discharge with IV atb ,per Sam greer removed HL, Patient had a duggan cath , draining well, blood sugar not done, and G -tube clamped at this time henry daugherty
--- NOTE | 2019-12-24 11:29 | NUR ---
NURSE NOTES: bander and cellophaner machine helper spoke to nurse Vargas from [facility] rehab of [facility] regarding continuation of IV antibiotics without an PICC line since patient only has a peripheral IV line. He said " Ok" with it. Will endorse to the primary nurse.
--- NOTE | 2019-12-24 11:43 | Discharge Summary ---
Discharge Summary Hospital Course Date of Admission Dec 17, 2019 at 22:49 Date of Discharge Admitting Diagnosis SOB/COPD HPI Cliff Saldana is a 74 year old male who was admitted on Dec 17, 2019 at 22:49 for Shortness Of Breath- Hospital Course 73-year-old male with PMH of advanced dementia (bedbound, nonverbal, PEG dependent at baseline), dysphasia s/p PEG tube, COPD, HTN, depression, PVCs, GERD, functional quadriplegia, adult failure to thrive, sacral ulcer who presents from rehab facility for septic shock 2/2 complicated UTI and ESBL Ecoli/Proteus Bacteremia. Patient initially required ICU care with pressor support, but was weaned off and downgraded the following day. Patient noted to have persistent fevers for several days, before finally resolving over the last 48 hours. Patient has now completed total of 7 days of merrem/vanc per ID for bacteremia, UTI, and PNA. Leukocytosis resolved. Hemodynamically stable with minimal IVF support. Tolerating TF. Patient stable for discharge. I personally discussed case with Dr. Torres who has also [facility] #Septic Shock 2/2 Complicated UTI # ESBL Ecoli and ESBL Proteus Bacteremia # Fevers # Hospital Acquired RLL PNA # Multiple decubitus Ulcers - continue vanc, merrem 1gm q8h per ID for another 4 days total at rehab - repeat BC contaminant with 1/2 bottles staph epi. - Manriquez care - Wound care for sacral ulcers; adequate nutrition, pressure mattresses, wound dressing changes - Dr. Torres ID on case, recs as stated above #Acute hypoxic respiratory failure - stable - continue home NC 2L - # Thrombocytponenia - normalized - likley from infection - unlikely HIT given timing of downtrending #Latent TB -4 AFBs collected - all 4 of them found to be negative (11/13, 11/14, 11/15, and 11/17). -T spot was positive which is in accordance with latent TB. -continue INH and Pyridoxine to be continued for total of 9 months. #Failure to thrive #Severe Malnourishment #Dysphagia eith G tube -Continue Tube feeds -Nutrition consult # Anemia of chronic Dx - Trend Hg - Transfuse for Hg less than 8 if ACS CODE: DNR/DNI I spent 31 minutes on this encounter with 21 min coordinating care and counseling. I discussed with all consultants and RNs. Time of note may not reflect time patient was seen. Discharge Discharge Vital Signs Last Vital Signs Date Time Temp Pulse Resp B/P (MAP) Pulse Ox O2 Delivery O2 Flow Rate FiO2 12/24/19 09:00 Nasal Cannula 2.0 12/24/19 08:12 91 16 98 28 12/24/19 08:00 97.9 132/77 (95) Discharge Disposition Patient was discharged to Gorge Stone D.O Dec 24, 2019 11:43
[2019-12-24 11:59] VITALS: BP 117/70
--- NOTE | 2019-12-24 12:00 | NUR ---
NURSE NOTES Discharged to SNF in stable condition with no belongings taken ,discharge via ambulance report given accordingly henry daugherty
--- NOTE | 2019-12-24 12:20 | Surgery Progress Note ---
Surgery Progress Note Subjective Symptoms: improved, tolerating diet, passing flatus Objective Last 24 Hour Vital Signs Date Time Temp Pulse Resp B/P (MAP) Pulse Ox O2 Delivery O2 Flow Rate FiO2 12/24/19 11:59 97.9 84 18 117/70 (86) 100 12/24/19 09:00 Nasal Cannula 2.0 12/24/19 08:12 91 16 98 Nasal Cannula 2.0 28 12/24/19 08:12 98 Nasal Cannula 2.0 28 12/24/19 08:00 97.9 84 18 132/77 (95) 100 12/24/19 04:00 97.9 102 26 128/76 (93) 98 12/24/19 00:00 98.2 103 26 134/75 (94) 95 12/23/19 21:00 Nasal Cannula 2.0 12/23/19 20:00 97.5 84 20 146/78 (100) 97 12/23/19 19:16 83 16 96 Nasal Cannula 2.0 28 12/23/19 19:16 96 Nasal Cannula 2.0 28 12/23/19 16:00 98.2 92 20 123/70 (87) 98 12/23/19 14:08 97 Nasal Cannula 2.0 28 12/23/19 14:07 81 16 97 Nasal Cannula 2.0 28 I&O Intake and Output 12/23/19 12/24/19 19:00 07:00 Intake Total 770 ml 70 ml Output Total 1200 ml Balance -430 ml 70 ml IV Total 350 ml Tube Feeding 420 ml 70 ml Output Urine Total 1200 ml Dressing: saturated Wound: clean Cardiovascular: RSR Respiratory: clear, decreased breath sounds Abdomen: soft, non-tender, present bowel sounds, non-distended Extremities: no tenderness, no cyanosis Laboratory Tests Test 12/23/19 16:52 12/23/19 21:43 12/24/19 05:34 12/24/19 07:50 POC Whole Blood Glucose 83 MG/DL (74-106) 86 MG/DL (74-106) 126 MG/DL (74-106) H White Blood Count 6.0 K/UL (4.8-10.8) Red Blood Count 2.82 M/UL (4.70-6.10) L Hemoglobin 8.8 G/DL (14.2-18.0) L Hematocrit 25.5 % (42.0-52.0) L Mean Corpuscular Volume 91 FL (80-99) Mean Corpuscular Hemoglobin 31.4 PG (27.0-31.0) H Mean Corpuscular Hemoglobin Concent 34.6 G/DL (32.0-36.0) Red Cell Distribution Width 14.1 % (11.6-14.8) Platelet Count 201 K/UL (150-450) Mean Platelet Volume 8.1 FL (6.5-10.1) Neutrophils (%) (Auto) 50.2 % (45.0-75.0) Lymphocytes (%) (Auto) 27.1 % (20.0-45.0) Monocytes (%) (Auto) 12.1 % (1.0-10.0) H Eosinophils (%) (Auto) 8.7 % (0.0-3.0) H Basophils (%) (Auto) 1.8 % (0.0-2.0) Sodium Level 139 MMOL/L (136-145) Potassium Level 3.9 MMOL/L (3.5-5.1) Chloride Level 103 MMOL/L (98-107) Carbon Dioxide Level 29 MMOL/L (21-32) Anion Gap 7 mmol/L (5-15) Blood Urea Nitrogen 15 mg/dL (7-18) Creatinine 0.8 MG/DL (0.55-1.30) Estimat Glomerular Filtration Rate > 60 mL/min (>60) Glucose Level 107 MG/DL (74-106) H Calcium Level 8.3 MG/DL (8.5-10.1) L Phosphorus Level 3.7 MG/DL (2.5-4.9) Magnesium Level 2.0 MG/DL (1.8-2.4) Vancomycin Level Trough 29.1 ug/mL (5.0-12.0) H Plan Problems: (1) COPD (chronic obstructive pulmonary disease) (2) Septic shock Assessment & Plan: Leukocytosis, anemia, lactic acidosis. COVID negative. Afebrile, hypotensive improved with fluid resuscitation off pressors now. UTI on antibiotics Still with significant wounds malnutrition requiring prolonged care. No acute surgical invention at this time Okay to resume tube feeds as tolerated IV fluids Urine output monitoring A.m. labs Imaging reviewed We will follow with recommendations thank you for your participation's care improved cont current care d/c planning Pt presented on admission with multiple Pressure Injuries, and contractures.L side trunk from L axilla to L hip noted to have a maroon discoloration. DTPI L Hip. Base of wound is maroon with surrounding non-blanchable erythema(L)5.5cm x (W)12.8cm. DTPI R lumbar(L04cm x (W)2.5cm. Base of wound is maroon and indurated. DTPI L trochanter(L)10cm x (W)10.5cm. Base of wound is purpuric with surrounding maroon borders. DTPI R trochanteric(L)9cm x (W)7.5cm. Base of wound is maroon and indurated. Surrounding darker skin tone without induration. DTPI Sacrum(L)9.5cm x (W)14cm. Base of wound is maroon with purpuric and indurated area at Sacrococcygeal area. Surrounding dry scaly skin with scattered dried lesions. Darker skin tone without induration or fluctuance R and L ischial tuberosities. Both heels are boggy and pale with dry peeling skin. Non-Blanching erythema without fluctuance/induration medial L foot ,in close proximity to malleolus(L)1.5cm x (W)1.5cm. Non-Blanching erythema medial R foot (L)2cm x (W)1.3cm. Non-Blanching erythema R Hallux. Base of wound is fluctuant(L)2cm x (W)2.5cm. Unstageable Pressure injury distal/lateral R foot(L)2.2cm x (W)3.8cm. Soft necrosis with surrounding non-blanchable erythema with fluctuance. Unstageable Pressure injury dorsal R4th metatarsal(L)1.4cm x (W)1.9cm. Base of wound is purpuric with marginal erythema along borders. Tx.Plan: Apply Moisture Barrier Paste to Sacrum. Cover with Optifoam drsg. Change every 3 days and prn. Apply Cavilon Skin Barrier to L HIP and L trochanteric. Cover each site with Optifoam drsg. Change every 7 days and prn. Apply Cavilon Skin Barrier to R trochanteric ,R lumbar. Cover each site with Optifoam drsg. Change every 7 days and prn. Apply Betadine to affected areas R and L foot. Cover each site with Optifoam drsgs. Change every 3 days and prn. Reposition at least every 2hours or as tolerated. Off-load heels with pillow. APM/RAVINDER Mattress overlay (3) Septic shock (4) Hematemesis (5) Bacteremia (6) Latent tuberculosis (7) Abnormal laboratory test result (8) Do not intubate, cardiopulmonary resuscitation (CPR)-only code status (9) wound (10) Hematuria (11) Fecal impaction (12) Rhabdomyolysis (13) GI bleed (14) Encounter for PEG (percutaneous endoscopic gastrostomy) (15) BRYANT (acute kidney injury) (16) Urinary retention (17) Bladder calculi (18) Proteinuria (19) Altered mental status (20) Electrolyte imbalance (21) Hypertension (22) Pneumonia (23) Severe sepsis (24) Frequent PVCs (25) Hypokalemia (26) UTI (urinary tract infection) (27) Elevated LFTs (28) Dehydration (29) Decubitus skin ulcer (30) UTI (urinary tract infection) (31) Suspected COVID-19 virus infection (32) BPH (benign prostatic hyperplasia) (33) Hyponatremia (34) Severe malnutrition (35) Failure to thrive syndrome, adult (36) Sepsis Reji Guy Dec 24, 2019 12:20
== END 2019-12-24 12:00 | DRG 871 ==
LOC: EDBD 22:01 → EMR 22:25 → ICU 22:49 → EDBEDREQSVC 12-18 00:46 → EDBEDREQ 12-18 00:46 → 4E 12-18 15:52 → 2E 12-18 21:00 → 4E 12-21 22:08
PROC: 05HN33Z Insertion of Infusion Device into Left Internal Jugular Vein, Percutaneous Approach (ICD-10-PCS; principal; 2019-12-17)
DX: A41.9 Sepsis, unspecified organism (principal); R65.21 Severe sepsis with septic shock; R53.2 Functional quadriplegia; J96.01 Acute respiratory failure with hypoxia; E43 Unspecified severe protein-calorie malnutrition; N39.0 Urinary tract infection, site not specified; M62.82 Rhabdomyolysis; N17.9 Acute kidney failure, unspecified; J44.1 Chronic obstructive pulmonary disease with (acute) exacerbation; Z43.1 Encounter for attention to gastrostomy; K92.2 Gastrointestinal hemorrhage, unspecified; E87.1 Hypo-osmolality and hyponatremia; Z16.12 Extended spectrum beta lactamase (ESBL) resistance; Z22.7 Latent tuberculosis; F03.90 Unspecified dementia, unspecified severity, without behavioral disturbance, psychotic disturbance, mood disturbance, and anxiety; F32.9 Major depressive disorder, single episode, unspecified; R62.7 Adult failure to thrive; Z68.20 Body mass index [BMI] 20.0-20.9, adult; D69.6 Thrombocytopenia, unspecified; N40.0 Benign prostatic hyperplasia without lower urinary tract symptoms; D63.8 Anemia in other chronic diseases classified elsewhere; Z66 Do not resuscitate; R13.10 Dysphagia, unspecified; L89.226 Pressure-induced deep tissue damage of left hip; L89.216 Pressure-induced deep tissue damage of right hip; L89.156 Pressure-induced deep tissue damage of sacral region; L89.890 Pressure ulcer of other site, unstageable; K56.41 Fecal impaction; N21.0 Calculus in bladder; Z86.14 Personal history of Methicillin resistant Staphylococcus aureus infection; B96.20 Unspecified Escherichia coli [E. coli] as the cause of diseases classified elsewhere; B96.4 Proteus (mirabilis) (morganii) as the cause of diseases classified elsewhere
CPT/HCPCS: 36415; 71045; 74018; 80048; 80053; 80069; 80150; 80170; 80202; 81003; 82270; 82550; 82553; 82728; 82962; 83605; 83615; 83690; 83735; 83880; 84100; 84153; 84484; 85007; 85025; 85379; 85610; 85651; 85730; 86140; 87040; 87070; 87086; 87181; 87205; 93005; 93306; 94640; 94664; 96361; 96365; 99291; 99292; C9399; J1815; J7030; J7620; J8499; U0002